=== PATIENT | female | born 1990 | race Caucasian/White ===

== ENCOUNTER 2022-10-23 20:33 | Outpatient (REF) | payer OTHER, SELFPAY ==
[2022-10-27 15:08] LABS: Age Gdln ACOG Testing Note (.); HPV Aptima Negative (Negative); IGP, Aptima HPV, rfx 16/18,45 Note (.)
== END 2022-10-23 20:34 | disposition home or self-care (01) ==
LOC: LAB 20:33
PROVIDERS: PCP Obstetrics & Gynecology; Visit Provider Obstetrics & Gynecology
DX: Z01.419 Encounter for gynecological examination (general) (routine) without abnormal findings (principal)
CPT/HCPCS: 87624; G0145

== ENCOUNTER 2022-12-29 12:34 | Outpatient (OUT) | payer OTHER, SELFPAY ==
--- NOTE | 2022-12-29 12:40 | MR_ITS ---
[address] [address] Patient Name: LITO RAMIREZ MRN: [facility]:[id number] date: 1990 Sex: F Assigned Patient Location: MRI Current Patient Location: Accession/Order Number: [id number] Exam Date: 12/29/2022 13:45 Report Date: 12/30/2022 08:51 At the request of: CHARLIE EASTMAN Procedure: MR head/brain wo/w con EXAM: MR head/brain wo/w con CLINICAL INDICATION: Asymmetric Sensorineural Hearing Loss H90.3 COMPARISON: None TECHNIQUE/PROTOCOL: Standard brain and internal auditory canal protocol pre and post contrast MRI protocol performed. CONTRAST: 20 mL of Dotarem. FINDINGS: IAC: Cranial Nerves VII and VII: Normal bilaterally. No mass or abnormal enhancement. Cochleae: Normal bilaterally. Semicircular Canals: Grossly normal bilaterally. Porus Acusticus: Normal bilaterally. Cerebellopontine Angle: Normal bilaterally. No mass or abnormal enhancement. Vestibular Aqueducts: Grossly normal bilaterally. BRAIN: No restricted diffusion, extra-axial fluid collection, hydrocephalus, midline shift, or other mass effect. Intracranial flow voids are maintained. Normal midline structures. No abnormal parenchymal, leptomeningeal, or dural enhancement. Normal marrow signal. No soft tissue abnormalities. Trace scattered paranasal sinus mucosal thickening. Mastoid air cells are well-aerated. MR/MR head/brain wo/w con IMPRESSION: 1. No mass or abnormal enhancement of either internal auditory canal or cerebellopontine angle. 2. No acute intracranial process or abnormal enhancement. Electronically authenticated by: ELINA VICTORIA Date: 12/30/2022 08:51
[2022-12-29 13:53] LABS: HCG Qualitative NEGATIVE (NEGATIVE)
== END 2022-12-29 12:35 | disposition home or self-care (01) ==
LOC: MRI 12:34
PROVIDERS: PCP Family Medicine; Visit Provider Otolaryngology
DX: H90.3 Sensorineural hearing loss, bilateral (principal)
CPT/HCPCS: 36415; 70553; 84702; 84703; A9575

== ENCOUNTER 2023-05-21 11:08 | Outpatient (OUT) | payer OTHER, SELFPAY ==
[2023-05-21 12:23] LABS: Partial Thromboplastin Time 26.6 sec (22.3-36.2); Prothrombin Time 9.8 sec (9.0-11.6)
[2023-05-21 12:33] LABS: INR <0.93
[2023-05-21 12:37] LABS: Basophils Absolute Auto 0.1 10^3/uL (0.0-0.1); Basophils Percent Auto 0.6 % (0.2-2.0); Eosinophils Absolute Auto 0.2 10^3/uL (0.0-0.7); Eosinophils Percent Auto 2.1 % (0.9-7.0); Hematocrit 43.5 % (36.0-48.0); Hemoglobin 13.8 g/dL (12.0-16.0); Immature Granulocytes Abs Auto 0.03 10^3/uL (0.00-0.03); Immature Granulocytes Pct Auto 0.4 % (0.0-0.5); Lymphocytes Absolute Auto 2.7 10^3/uL (1.2-3.8); Lymphocytes Percent Auto 33.7 % (20.5-60.0); Mean Corpuscular HGB Conc 31.7 g/dL (29.9-35.2); Mean Corpuscular Hemoglobin 27.9 pg (26.7-34.0); Mean Corpuscular Volume 88.1 fL (81.0-99.0); Mean Platelet Volume 10.1 fL (9.5-13.5); Monocytes Absolute Auto 0.5 10^3/uL (0.3-0.8); Monocytes Percent Auto 6.7 % (1.7-12.0); Neutrophils Absolute Auto 4.5 10^3/uL (1.4-6.5); Neutrophils Percent Auto 56.5 % (43.0-75.0); Platelet Count 233 10^3/uL (150-450); Red Blood Count 4.94 10^6/uL (4.20-5.40); Red Cell Distribution Width 13.6 % (11.0-15.0)
[2023-05-28 12:09] LABS: APTT 25.6 sec (.); Antithrombin Activity, Plasma 108 % (.); Factor VIII Activity 104 % (.); Homocysteine 13.1 umol/L (.); Protein S Antigen, Free 81 % (.)
== END 2023-05-21 11:09 | disposition home or self-care (01) ==
LOC: LAB 11:08
PROVIDERS: PCP Family Medicine; Visit Provider Family Medicine
DX: D68.9 Coagulation defect, unspecified (principal)
CPT/HCPCS: 36415; 81240; 83090; 85025; 85230; 85240; 85300; 85303; 85305; 85307; 85598; 85610; 85613; 85730; 86146; 86147

== ENCOUNTER 2023-06-20 13:27 | Emergency (ER) | payer OTHER, SELFPAY ==
[2023-06-20 13:31] VITALS: BP 107/81; PULSE 68; RESP 18; TEMP 36.9; O2SAT 96; BMI 40.6
--- NOTE | 2023-06-20 13:39 | ED.URI1 ---
HPI - URI/Sore Throat General Chief Complaint: Upper Respiratory Infection Stated Complaint: SOB Time Seen by Provider: 06/20/23 13:33 Source: patient Limitations: no limitations History of Present Illness HPI Narrative: 33-year-old female presents for a 6-day history of cough and congestion. Her son is being seen as well for the same symptoms. No vomiting or diarrhea. She has had a little bit of wheezing at home and has a history of asthma and she smokes cigarettes. No hemoptysis. Related Data Allergies Allergy/AdvReac Type Severity Reaction Status Date / Time cefaclor [From [facility]] Allergy Severe Anaphylaxis Verified 06/20/23 13:37 Penicillins Allergy Severe Anaphylaxis Verified 06/20/23 13:37 Review of Systems ROS Narrative A ten point review of systems is negative except as noted above. PFSH PFSH Social History Smoking status: Current every day smoker Exam Narrative Exam Narrative: Nurses note and vital signs reviewed and patient is not hypoxic. General: The patient appears well and in no apparent distress. Patient is resting comfortably on cart. Skin: Warm, dry, no pallor noted. There is no rash noted. Head: Normocephalic, atraumatic Eye: Normal conjunctiva, no drainage Ears, Nose, Mouth, and Throat: oral mucosa is moist. Nares patent. Cardiovascular: Regular Rate and Rhythm Respiratory: A few rhonchi present Back: non-tender GI: Soft and nontender Musculoskeletal: The patient has no evidence of calf tenderness, no pitting edema, symmetrical pulses noted bilaterally Neurological: A&O, normal speech Psychiatric: Cooperative Constitutional Vital Signs, click to edit/add: Last Vital Signs Temp 98.5 F 06/20/23 13:31 Pulse 68 06/20/23 13:31 Resp 18 06/20/23 13:31 BP 107/81 06/20/23 13:31 Pulse Ox 96 06/20/23 13:31 O2 Del Method Room Air 06/20/23 13:31 Course Vital Signs Vital signs: Vital Signs Temperature 98.5 F 06/20/23 13:31 Pulse Rate 68 06/20/23 13:31 Respiratory Rate 18 06/20/23 13:31 Blood Pressure 107/81 06/20/23 13:31 Pulse Oximetry 96 06/20/23 13:31 Oxygen Delivery Method Room Air 06/20/23 13:31 Temperature 98.5 F 06/20/23 13:31 Pulse Rate 68 06/20/23 13:31 Respiratory Rate 18 06/20/23 13:31 Blood Pressure 107/81 06/20/23 13:31 Pulse Oximetry 96 06/20/23 13:31 Oxygen Delivery Method Room Air 06/20/23 13:31 MDM - URI/Sore Throat MDM Narrative Medical decision making narrative: COVID and influenza test are negative for this patient. Her son however tested positive for influenza and she likely has it is well. Treatment diagnosis and follow-up were discussed with the patient. Lab Data Attestation: I reviewed the patient's lab results. Labs: Lab Results 06/20/23 Range/Units 13:39 Influenza Type A Ag Negative Influenza Type B Ag Negative SARS-CoV-2 Ag (CV2AG) Negative (NEGATIVE) Discharge Plan Discharge Chief Complaint: Upper Respiratory Infection Clinical Impression: Influenza-like illness Patient Disposition: Home, Self-Care Time of Disposition Decision: 14:46 Condition: Good Mode of Transportation: Private Vehicle Instructions: Influenza (ED) Stand Alone Forms: Portal Instructions Referrals: Enmanuel Medellin MD [Primary Care Provider] - 1 week
--- OUTSIDE RECORDS SUMMARY | 2023-06-20 14:00 | XMS_ITS | CCD ---
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 3016-3 ####[facility] LABCLIA [id number] [facility] [id number] [place] [address] [place] Emelina 11-09-2022 CNPN Telephone (NCCAP) AMANDA CORTEZ ([id number]) 1990 F Date Time Provider Department 11/09/22 Arslan GARCIA During your visit today, we recorded the following information about you: Obi Dunlap 11/09/2022 3:40 PM Signed Patient is called and scheduled. Arslan Garcia MD P [facility] Nurse [place]; Obi Genao 8 weeks with labs, orders placed, thank you Allergies As of Date: 11/09/2022 Noted Allergy Reaction CECLOR (CEFACLOR) 04/11/2022 4 - Hives 12 - Shortness of Breath PENICILLINS 04/11/2022 4 - Hives 12 - Shortness of Breath Date Reviewed: 05/04/2022 Reviewed by: Daisy Stoll - Fully Assessed Reason for Visit: Appointment Confirmation [[id number]] Prescriptions as of 11/09/2022 - levothyroxine (SYNTHROID) 175 mcg tablet Take 1 tablet by mouth daily before breakfast. - liothyronine (CYTOMEL) 25 mcg tablet TAKE ONE TABLET BY MOUTH TWICE A DAY FOR 30 DAYS - fluticasone (FLONASE) 50 mcg/actuation nasal spray - albuterol (PROVENTIL) 2.5 mg /3 mL (0.083 %) nebulizer solution INHALE CONTENTS OF 1 VIAL VIA NEBULIZER EVERY 4 HOURS NEEDED - ibuprofen (MOTRIN) 800 mg tablet Take 800 mg by mouth. - omeprazole (PRILOSEC) 40 mg capsule TAKE ONE CAPSULE BY MOUTH ONCE DAILY IN THE MORNING 30 TO 60 MINUTES PRIOR TO BREAKFAST - JENCYCLA 0.35 mg tablet Take 1 tablet by mouth once daily. - Multivitamin capsule Take 1 capsule by mouth once daily. - Digestive Enzymes tab Take by mouth. - OTC PRODUCT Supplement by [employer] for breast feeding Problem List As Of Date: 11/09/2022 (None) Encounter Status:Closed by OBI GENAO on 11/09/22 Normal [facility] T3 SerPl-mCncon 11-02-2022 T3 [Mass/Vol] 84 ng/dL Normal 79-165 [facility] Comment on above: Order Comment: Speci men Type: BLOOD SPECIMENOrdering Facility: [facility] Address: [address] [place] [address] Performed By: #### 3 026-2, 3016-3, 3053-6 ####[facility] LABCLIA [id number] [place] [id number] [facility] T4 SerPl-mCncon 11-02-2022 T4 [Mass/Vol] 8.3 ug/dL Normal 5.5-10.2 [facility] Comment on above: Order Comment: Speci men Type: BLOOD SPECIMENOrdering Facility: [facility] Address: [address] [place] [address] Performed By: #### 3 026-2, 3016-3, 6 ####[facility] LABIA [id number] [address] TSH SerPl-aCncon 11-02-2022 TSH Qn 23.200 m[IU]/L High 0.270-4.200 [facility] Comment on above: Order Comment: Speci kishor Type: BLOOD SPECIMENOrdering Facility: [facility] Address: [address] [place] [address] Result Comment: If t he patient is , TSH reference range varies by gestational period: First Trimester (weeks 9-12): 0.180-2.990 mIU/L Second Trimester: 0.110-3.980 mIU/L Third Trimester: 0.480-4.710 mIU/L Suman Graf et al. A Practical Approach for the Verifications and Determination of Site- and Trimester-Specific Reference Intervals for Thyroid Function tests in . Thyroid, 2019:29:3:412-420. Rajesh E, et al. 2017 Guidelines of the [place] Thyroid Association for the Diagnosis and Management of Thyroid Disease during and the . Thyroid, 2017:27:3:315-389. Performed By: #### 3 026-2, 3016-3, 305-6 ####[facility] LABIA [id number] [place] [id number] [facility] CNPMaru 09-26-2022 CNPN Telephone ([employer]) AMANDA CORTEZ ([id number]) 1990 F Date Time Provider Department 09/26/22 Arslan GARCIA During your visit today, we recorded the following information about you: Arslan Garcia MD 09/26/2022 5:34 PM Signed Called patient to follow-up on recent thyroid function test. TSH elevated. Patient states she may miss as many as 1 dose a week. However I do feel she needs to have her dose increased. [facility] Recommend canceling her October 12 appointment and seeing her in approximately 6 weeks with labs which I put the orders in for Irais Turpin LPN 09/27/2022 8:13 AM Signed Yfn: Please reschedule follow up and lab as indicated below. Thanks MIKEY Casey 09/27/2022 9:28 AM Signed Patient has been scheduled AND notified of appointment. Yfn Nelson Allergies As of Date: 09/26/2022 Noted Allergy Reaction CECLOR (CEFACLOR) 04/11/2022 4 - Hives 12 - Shortness of Breath PENICILLINS 04/11/2022 4 - Hives 12 - Shortness of Breath Date Reviewed: 05/04/2022 Reviewed by: Daisy Stoll - Fully Assessed Reason for Visit: Orders [681] Cmt: a Primary Visit Diagnosis:Thyroid cancer (HCC) [C73] Order(s):TSH BLD [SQTSH] Order #: [id number] FUTURE T3 BLD [SQT3] Order #: [id number] FUTURE T4/THYROXINE BLOOD [SQT4] Order #: [id number] FUTURE levothyroxine (SYNTHROID) 150 mcg tabletTake 1 tablet by mouth once daily.Disp: 30 tabletRfl: 4 Prescriptions as of 09/27/2022 - levothyroxine (SYNTHROID) 150 mcg tablet Take 1 tablet by mouth once daily. - liothyronine (CYTOMEL) 25 mcg tablet TAKE ONE TABLET BY MOUTH TWICE A DAY FOR 30 DAYS - fluticasone (FLONASE) 50 mcg/actuation nasal spray - albuterol (PROVENTIL) 2.5 mg /3 mL (0.083 %) nebulizer solution INHALE CONTENTS OF 1 VIAL VIA NEBULIZER EVERY 4 HOURS NEEDED - ibuprofen (MOTRIN) 800 mg tablet Take 800 mg by mouth. - omeprazole (PRILOSEC) 40 mg capsule TAKE ONE CAPSULE BY MOUTH ONCE DAILY IN THE MORNING 30 TO 60 MINUTES PRIOR TO BREAKFAST - JENCYCLA 0.35 mg tablet Take 1 tablet by mouth once daily. - Multivitamin capsule Take 1 capsule by mouth once daily. - Digestive Enzymes tab Take by mouth. - OTC PRODUCT Supplement by [employer] for breast feeding Problem List As Of Date: 09/26/2022 (None) Prescriptions ordered this encounter Disp Refills Start End LEVOTHYROXINE 150 MCG TABLET 30 t* 4 09/26/2022 Route: ORAL Sig: Take 1 tablet by mouth once daily. Medications Discontinued During This Encounter Prescriptions - levothyroxine (SYNTHROID) 125 mcg tablet (Discontinued) Take 1 tablet by mouth once daily. Encounter Status:Closed by Arslan GARCIA on 09/26/22 Normal [facility] T4 SerPl-mCncon 09-14-2022 T4 [Mass/Vol] 4.5 ug/dL Low 5.5-10.2 [facility] Comment on above: Order Comment: Chel iverson Type: BLOOD SPECIMENOrdering Facility: [facility] Address: [address] [place], [place] [address] Performed By: #### 3 026-2, 3016-3 ####[facility] LABCLIA [id number] [address] STATES OF [facility] TSH SerPl-aCncon 09-14-2022 TSH Qn 89.200 m[IU]/L High 0.270-4.200 [facility] Comment on above: Order Comment: Chel men Type: BLOOD SPECIMENOrdering Facility: [facility] Address: [address] [place] [address] Result Comment: If t he patient is , TSH reference range varies by gestational period: First Trimester (weeks 9-12): 0.180-2.990 mIU/L Second Trimester: 0.110-3.980 mIU/L Third Trimester: 0.480-4.710 mIU/L Suman Graf et al. A Practical Approach for the Verifications and Determination of Site- and Trimester-Specific Reference Intervals for Thyroid Function tests in . Thyroid, 2019:29:3:412-420. Rajesh Holman, et al. 2017 Guidelines of the [place] Thyroid Association for the Diagnosis and Management of Thyroid Disease during and the . Thyroid, 2017:27:3:315-389. Performed By: #### 3 026-2, 3016-3 ####[facility] LABCLIA [id number] [place] [address] [place] PREG QUANT HCGon 08-17-2022 HCG QUANT 1 mIU/mL Normal [facility] Comment on above: Performed By: #### P REGQNT #### [facility] [address] [place] [address] [address] Prashant Kang HCG RANGE SEE BELOW Normal [facility] Comment on above: Result Comment: 5-50 0.2-1 WEEK 50-500 1-2 WEEKS 100-5,000 2-3 WEEKS 500-10,000 3-4 WEEKS 1,000-50,000 4-5 WEEKS 10,000-100,000 5-6 WEEKS 15,000-200,000 6-8 WEEKS 10,000-100,000 2-3 MONTHS Performed By: #### P REGQNT #### [facility] [address] [place] [address] [address] Prashant Tarango 07-17-2022 [facility] Telephone (RADTSA) AMANDA CORTEZ ([id number]) 1990 F Date Time Provider Department 07/17/22 Arslan GARCIA During your visit today, we recorded the following information about you: Danna PittsKAREN 07/17/2022 11:18 AM Signed Pt called in requesting to be switched to a phone visit tomorrow. Her kids are on spring break and a couple of them are sick. Labs have been done and resulted. PSS- please change to phone visit for tomorrow. KAREN Peters 07/17/2022 11:43 AM Signed Appointment has been changed to phone appt. Yfn Nelson Allergies As of Date: 07/17/2022 Noted Allergy Reaction CECLOR (CEFACLOR) 04/11/2022 4 - Hives 12 - Shortness of Breath PENICILLINS 04/11/2022 4 - Hives 12 - Shortness of Breath Date Reviewed: 05/04/2022 Reviewed by: Daisy Stoll - Fully Assessed Reason for Visit: Phone Visit [Other] Prescriptions as of 08/01/2022 - levothyroxine (SYNTHROID) 125 mcg tablet Take 1 tablet by mouth once daily. - liothyronine (CYTOMEL) 25 mcg tablet TAKE ONE TABLET BY MOUTH TWICE A DAY FOR 30 DAYS - fluticasone (FLONASE) 50 mcg/actuation nasal spray - albuterol (PROVENTIL) 2.5 mg /3 mL (0.083 %) nebulizer solution INHALE CONTENTS OF 1 VIAL VIA NEBULIZER EVERY 4 HOURS NEEDED - ibuprofen (MOTRIN) 800 mg tablet Take 800 mg by mouth. - omeprazole (PRILOSEC) 40 mg capsule TAKE ONE CAPSULE BY MOUTH ONCE DAILY IN THE MORNING 30 TO 60 MINUTES PRIOR TO BREAKFAST - JENCYCLA 0.35 mg tablet Take 1 tablet by mouth once daily. - Multivitamin capsule Take 1 capsule by mouth once daily. - Digestive Enzymes tab Take by mouth. - OTC PRODUCT Supplement by [employer] for breast feeding Problem List As Of Date: 07/17/2022 (None) Encounter Status:Closed by DANNA PITTS on 08/01/22 Normal [facility] PREG QUANT HCGon 07-04-2022 HCG QUANT <1 Normal [facility] Comment on above: Performed By: #### P REGQNT #### [facility] [address] [place] [address] Dr. Prashant Kang HCG RANGE SEE BELOW Normal [facility] Comment on above: Result Comment: 5-50 0.2-1 WEEK 50-500 1-2 WEEKS 100-5,000 2-3 WEEKS 500-10,000 3-4 WEEKS 1,000-50,000 4-5 WEEKS 10,000-100,000 5-6 WEEKS 15,000-200,000 6-8 WEEKS 10,000-100,000 2-3 MONTHS Performed By: #### P REGQNT #### [facility] [address] [place] [address] Dr. Prashant Kang T4 SerPl-mCncon 07-03-2022 T4 [Mass/Vol] 7.0 ug/dL Normal 5.5-10.2 [facility] Comment on above: Order Comment: Chel iverson Type: BLOOD SPECIMENOrdering Facility: [facility] Address: [address] [place] [address] Performed By: #### 3 026-2, 3016-3 ####[facility] LABCLIA [id number] [address] THYROGLOBULIN BY M[facility] SPECTR [facility] 07-03-2022 THYROGLOBULIN, LC-MS/MS 1.6 ng/mL Normal 1.3-31.8 [facility] Comment on above: Order Comment: Chel iverson Type: BLOOD SPECIMENOrdering Facility: [facility] Address: [address] [place] [address] Result Comment: Results obtained with different test methods or kits cannot be used interchangeably. Thyroglobulin results, regardless of concentration, should not be interpreted as absolute evidence for the presence or absence of papillary or follicular thyroid cancer. Thyroglobulin testing is not recommended for use as a screening procedure to detect the presence of thyroid cancer in the general population. INTERPRETIVE INFORMATION: Thyroglobulin by LC-MS/MS, Serum/Plasma Lower limit of detection for Thyroglobulin by LC-MS/MS is 0.5 ng/mL. This test was developed and its performance characteristics determined by [facility]. It has not been cleared or approved by the US Food and Drug Administration. This test was performed in a CLIA certified laboratory and is intended for clinical purposes. Performed By: [facility] [address] [place] [address] Injection Machine Operator: Prem Willis MD, PhD Performed By: #### [facility] ####[facility] LABORATORIESCLIA [id number] [place] [address] TSH SerPl-aCncon 07-03-2022 TSH Qn 77.100 m[IU]/L High 0.270-4.200 [facility] Comment on above: Order Comment: Speci men Type: BLOOD SPECIMENOrdering Facility: [facility] Address: [address] [place] [address] Result Comment: If t he patient is , TSH reference range varies by gestational period: First Trimester (weeks 9-12): 0.180-2.990 mIU/L Second Trimester: 0.110-3.980 mIU/L Third Trimester: 0.480-4.710 mIU/L Suman Graf et al. A Practical Approach for the Verifications and Determination of Site- and Trimester-Specific Reference Intervals for Thyroid Function tests in . Thyroid, 2019:29:3:412-420. Rajesh Holman, et al. 2017 Guidelines of the [place] Thyroid Association for the Diagnosis and Management of Thyroid Disease during and the . Thyroid, 2017:27:3:315-389. Performed By: #### 3 026-2, 3016-3 ####[facility] LABCLIA [id number] [facility] [id number] [place] [address] [place] PREG QUANT HCGon 05-16-2022 HCG QUANT <1 Normal [facility] Comment on above: Performed By: #### P TT, PT #### [facility] [address] [place] [address] Dr. Prashant Kang HCG RANGE SEE BELOW Normal [facility] Comment on above: Result Comment: 5-50 0.2-1 WEEK 50-500 1-2 WEEKS 100-5,000 2-3 WEEKS 500-10,000 3-4 WEEKS 1,000-50,000 4-5 WEEKS 10,000-100,000 5-6 WEEKS 15,000-200,000 6-8 WEEKS 10,000-100,000 2-3 MONTHS Performed By: #### P TT, PT #### [facility] [address] [place] [address] Dr. Prashant Kang PREG QUANT HCGon 05-08-2022 HCG QUANT <1 Normal [facility] Comment on above: Performed By: #### P REGQNT #### [facility] [address] [place] [address] Dr. Prashant Kang HCG RANGE SEE BELOW Normal [facility] Comment on above: Result Comment: 5-50 0.2-1 WEEK 50-500 1-2 WEEKS 100-5,000 2-3 WEEKS 500-10,000 3-4 WEEKS 1,000-50,000 4-5 WEEKS 10,000-100,000 5-6 WEEKS 15,000-200,000 6-8 WEEKS 10,000-100,000 2-3 MONTHS Performed By: #### P REGQNT #### [facility] [address] [place] [address] Dr. Prashant Kang CNOVon 05-04-2022 CNOV Office Visit (RADTSA ) AMANDA CORTEZ ([id number]) 1990 F Date Time Provider Department 05/04/22 9:30 AM Arslan GARCIA During your visit today, we recorded the following information about you: Temperature Pulse Respiration Blood pressure 97.2 degrees 67/minute 16/minute 113/73 Weight 88.8 kg Arslan Garcia MD 05/04/2022 9:58 AM Signed Radiation Oncology - FollowupNote PATIENT NAME: Amanda Cortez PATIENT : 1990 DIAGNOSIS: Thyroid cancer, classic papillary thyroid carcinoma, status post total thyroidectomy and right neck exploration on 03/07/2022, stage I [id number]. HPI: Patient returns after further work-up and for further discussion about potential I-131 postoperative treatment. LABORATORY: Latest Reference Range AND Units 12/13/22 10:41 Thyroglobulin Ab <14.4 IU/mL 20.6 (H) Thyroglobulin, LC-MS/MS 1.3 - 31.8 ng/mL 1.6 (H): Data is abnormally high FOCUSED ROS: Dysphagia: No Mucositis: No Voice Changes:No Fatigue: No Nausea: No Vomitting: No Pain: No Taste: No Weight loss: No ALLERGIES Allergen Reactions Ceclor [Cefaclor] Hives, Shortness of Breath Penicillins Hives, Shortness of Breath MEDICATIONS: liothyronine (CYTOMEL) 25 mcg tablet TAKE ONE TABLET BY MOUTH TWICE A DAY FOR 30 DAYS fluticasone (FLONASE) 50 mcg/actuation nasal spray albuterol (PROVENTIL) 2.5 mg /3 mL (0.083 %) nebulizer solution INHALE CONTENTS OF 1 VIAL VIA NEBULIZER EVERY 4 HOURS NEEDED ibuprofen (MOTRIN) 800 mg tablet Take 800 mg by mouth. omeprazole (PRILOSEC) 40 mg capsule TAKE ONE CAPSULE BY MOUTH ONCE DAILY IN THE MORNING 30 TO 60 MINUTES PRIOR TO BREAKFAST JENCYCLA 0.35 mg tablet Take 1 tablet by mouth once daily. Multivitamin capsule Take 1 capsule by mouth once daily. Digestive Enzymes tab Take by mouth. OTC PRODUCT Supplement by [employer] for breast feeding levothyroxine (SYNTHROID) 112 mcg tablet Take 1 tablet by mouth once daily. PAST MEDICAL HISTORY Diagnosis Date Asthma GERD (gastroesophageal reflux disease) Prior radiation therapy, collagen vascular disease, or inflammatory bowel disease: No status: Patient states there is no possibility she is at this time. Educated on risks of during treatment. PAST SURGICAL HISTORY Procedure Laterality Date CHOLEYCYSTOGRAM GALL BLADDER PAST SURGICAL HISTORY OF cyst removed form ovaries x 2 THYROIDECTOMY FAMILY HISTORY Problem Relation Age of Onset Lung Cancer Maternal great-grandmother Social History Tobacco Use Smoking status: Every Day Packs/day: 1.00 Years: 15.00 Pack years: 15.00 Types: Cigarettes Smokeless tobacco: Never Substance Use Topics Alcohol use: Yes Comment: socially Drug use: Not Currently COMPLETE REVIEW OF SYSTEMS: GENERAL: feeling well without fatigue, no recent change in weight HEENT: denies DIAZ, change in hearing or vision, no other ENT complaints NECK: Mild irritation along incision no swelling. RESPIRATORY: no cough, no wheezing or shortness of breath CARDIOVASCULAR: no chest pain, no palpitations NEURO: no numbness or paresthesias and no weakness of the extremities As noted in HPI PHYSICAL EXAM: VS: BP 113/73 Pulse 67 Temp 36.2 ?C (97.2 ?F) (Temporal) Resp 16 Wt 88.8 kg (195 lb 12.8 oz) SpO2 100% Unknown BMI 35.24 kg/m? KPS: 100 General Appearance: Alert and oriented. No acute distress. Neck: Normal ROM. Well-healing low neck incision. Small area of induration along incision no obvious infection, no palpable cervical or supraclavicular adenopathy. Hematologic: No signs of active bleeding. RADIOLOGY/LABORATORY DATA: see HPI ASSESSMENT/PLAN: Thyroid cancer, classic papillary thyroid carcinoma, status post total thyroidectomy and right neck exploration on 03/07/2022, stage [id number]. Patient does have significant thyroglobulin antibody however thyroglobulin by interference assay less than 2. However given detectable thyroglobulin and antibody I do feel that I-131 treatment is indicated. Patient still wants to continue breast-feeding. Given we have to wait 3 to 6 months after stopping breast-feeding we will plan to start her on Synthroid. We will plan to recheck her labs in 2 to 3 months and discuss future planning after that. Given relatively low thyroglobulin do feel it is safe to wait I-131 treatment. Signed by: Arslan Garcia MD cc: To use this Smartlink, specify the provider ID whose address you want to display, e.g., .PROVADDR[1 (where 1 is the provider ID). No referring provider defined for this encounter. Allergies As of Date: 05/04/2022 Noted Allergy Reaction CECLOR (CEFACLOR) 04/11/2022 4 - Hives 12 - Shortness of Breath PENICILLINS 04/11/2022 4 - Hives 12 - Shortness of Breath Date Reviewed: 05/04/2022 Reviewed by: Daisy Stoll - Tigre Sebastian (more content not included)... Normal [facility] Emelina 04-25-2022 [facility]N [facility] AMANDA CORTEZ ([id number]) 1990 F Date Time Provider Department 04/25/22 Arslan GARCIA During your visit today, we recorded the following information about you: Yfn Nelson 04/25/2022 9:40 AM Signed Called patient to reschedule, LMOV. MD Jessica Jenikns [facility] Nurse [place]; Yfn Nelson Unable to reach please reschedule Yfn Nelson 04/25/2022 10:50 AM Signed Patient had been rescheduled. Yfn Nelson Allergies As of Date: 04/25/2022 Noted Allergy Reaction CECLOR (CEFACLOR) 04/11/2022 4 - Hives 12 - Shortness of Breath PENICILLINS 04/11/2022 4 - Hives 12 - Shortness of Breath Date Reviewed: Never Reviewed Reason for Visit: Missed Appointment [1304] Prescriptions as of 05/16/2022 - levothyroxine (SYNTHROID) 112 mcg tablet Take 1 tablet by mouth once daily. - liothyronine (CYTOMEL) 25 mcg tablet TAKE ONE TABLET BY MOUTH TWICE A DAY FOR 30 DAYS - fluticasone (FLONASE) 50 mcg/actuation nasal spray - albuterol (PROVENTIL) 2.5 mg /3 mL (0.083 %) nebulizer solution INHALE CONTENTS OF 1 VIAL VIA NEBULIZER EVERY 4 HOURS NEEDED - ibuprofen (MOTRIN) 800 mg tablet Take 800 mg by mouth. - omeprazole (PRILOSEC) 40 mg capsule TAKE ONE CAPSULE BY MOUTH ONCE DAILY IN THE MORNING 30 TO 60 MINUTES PRIOR TO BREAKFAST - JENCYCLA 0.35 mg tablet Take 1 tablet by mouth once daily. - Multivitamin capsule Take 1 capsule by mouth once daily. - Digestive Enzymes tab Take by mouth. - OTC PRODUCT Supplement by [employer] for breast feeding Problem List As Of Date: 04/25/2022 (None) Encounter Status:Closed by YFN NELSON on 05/16/22 [facility] CNOVon 04-11-2022 CNOV Office Visit (RADTSA ) CORTEZAMANDA COYNE ([id number]) 1990 F Date Time Provider Department 04/11/22 10:45 AM LAB/PORT RADT KAROL JUDGE During your visit today, we recorded the following information about you: Danna Pitts RN 04/11/2022 10:52 AM Signed Amanda Cortez presents in office today for: Lab Draw during Office Visit . Ordering Provider: Felipe Garcia M.D. Test (s) ordered: TG Method for obtaining blood: Phlebotomy was performed, accessing right antecubital vein. Needle removed intact. Dressing secured. Patient denies discomfort, dizziness, light-headedness or weakness and left the department without assist. Danna Pitts RN Allergies As of Date: 04/11/2022 Noted Allergy Reaction CECLOR (CEFACLOR) 04/11/2022 4 - Hives 12 - Shortness of Breath PENICILLINS 04/11/2022 4 - Hives 12 - Shortness of Breath Date Reviewed: Never Reviewed Reason for Visit: Phlebotomy [1172] Primary Visit Diagnosis:Thyroid cancer (HCC) [C73] Prescriptions as of 04/11/2022 - liothyronine (CYTOMEL) 25 mcg tablet TAKE ONE TABLET BY MOUTH TWICE A DAY FOR 30 DAYS - fluticasone (FLONASE) 50 mcg/actuation nasal spray - albuterol (PROVENTIL) 2.5 mg /3 mL (0.083 %) nebulizer solution INHALE CONTENTS OF 1 VIAL VIA NEBULIZER EVERY 4 HOURS NEEDED - ibuprofen (MOTRIN) 800 mg tablet Take 800 mg by mouth. - omeprazole (PRILOSEC) 40 mg capsule TAKE ONE CAPSULE BY MOUTH ONCE DAILY IN THE MORNING 30 TO 60 MINUTES PRIOR TO BREAKFAST - JENCYCLA 0.35 mg tablet Take 1 tablet by mouth once daily. - Multivitamin capsule Take 1 capsule by mouth once daily. - Digestive Enzymes tab Take by mouth. - OTC PRODUCT Supplement by [employer] for breast feeding Problem List As Of Date: 04/11/2022 (None) Visit Notes: >> Danna Pitts RN [facility] Apr 11, 2022 10:50 AM Status: Signed Amanda Cortez presents in office today for: Lab Draw during Office Visit . Ordering Provider: Felipe Garcia M.D. Test (s) ordered: TG Method for obtaining blood: Phlebotomy was performed, accessing right antecubital vein. Needle removed intact. Dressing secured. Patient denies discomfort, dizziness, light-headedness or weakness and left the department without assist. Danna Pitts RN Encounter Status:Closed by DANNA PITTS on 04/11/22 [facility] Office Visit (RADTSA ) AMANDA CORTEZ ([id number]) 1990 F Date Time Provider Department 04/11/22 10:00 AM Arslan GARCIA During your visit today, we recorded the following information about you: Temperature Pulse Respiration Blood pressure 97.9 degrees 76/minute 18/minute 109/72 Weight Height 88 kg 1.588 m Arslan Garcia MD 04/18/2022 2:20 PM Signed Radiation Oncology - New Patient/Consult Note PATIENT NAME: Amanda Cortez PATIENT : 1990 REQUESTING PROVIDER: Dr. Eastman Primary Site: Thyroid Date of Diagnosis: March 07, 2022 Clinical Stage: T1 N0 M0 Pathologic Stage: T1 b N0 M0 DIAGNOSIS: 32 year old female with thyroid cancer, classic papillary thyroid carcinoma, status post total thyroidectomy and right neck exploration on 03/07/2022, stage I [id number]. HPI: 32 year old female who presents with above diagnosis, for an opinion regarding the role of radiation therapy in the management of the patient's disease. Final recommendations will be communicated back to the requesting physician by way of the shared medical record, or letter to requesting physician via US mail. Patient presented with dysphagia for approximately 1 to [address] of the neck with contrast on 01/20/2022 without significant findings. Thyroid ultrasound on 01/19/2022 demonstrating a 19 x 14 x 7 mm solid hypoechoic nodule within the right aspect of the thyroid isthmus. She underwent FNA, ultrasound-guided on 02/03/2022 showing findings suspicious for papillary thyroid carcinoma. Patient underwent total thyroidectomy and right neck exploration on 03/07/2022 in addition excision of right palate lesion. Intraoperative findings including a firm 2 cm mass on the right aspect of the thyroid isthmus. An adjacent anterior compartment lymph node identified and removed. An additional right lateral lymph node also removed. 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 Right thyroid and isthmus: 1.5 cm classic papillary thyroid carcinoma confined to the thyroid, no vascular invasion, resection margins negative Left thyroid: Small focus papillary thyroid carcinoma classic, 4 mm confined to the thyroid no lymphovascular invasion margins negative. Additional right parathyroid lymph node excision showing benign thyroid tissue without malignancy, additional anterior compartment lymph node without metastatic involvement. Patient is otherwise in good health. She is actively breast-feeding her child, approximately 9-month old. She has 4 children, states that her and her cannot plan to have any other children. She does states she wants to breast-feed until her youngest is 2 years if possible. FOCUSED ROS: Dysphagia: No Mucositis: No Voice Changes:No Fatigue: No Nausea: No Vomitting: No Pain: No Taste: No Weight loss: No ALLERGIES Allergen Reactions Ceclor [Cefaclor] Hives, Shortness of Breath Penicillins Hives, Shortness of Breath MEDICATIONS: liothyronine (CYTOMEL) 25 mcg tablet TAKE ONE TABLET BY MOUTH TWICE A DAY FOR 30 DAYS fluticasone (FLONASE) 50 mcg/actuation nasal spray albuterol (PROVENTIL) 2.5 mg /3 mL (0.083 %) nebulizer solution INHALE CONTENTS OF 1 VIAL VIA NEBULIZER EVERY 4 HOURS NEEDED ibuprofen (MOTRIN) 800 mg tablet Take 800 mg by mouth. omeprazole (PRILOSEC) 40 mg capsule TAKE ONE CAPSULE BY MOUTH ONCE DAILY IN THE MORNING 30 TO 60 MINUTES PRIOR TO BREAKFAST JENCYCLA 0.35 mg tablet Take 1 tablet by mouth once daily. Multivitamin capsule Take 1 capsule by mouth once daily. Digestive Enzymes tab Take by mouth. OTC PRODUCT Supplement by [employer] for breast feeding PAST MEDICAL HISTORY Diagnosis Date Asthma GERD (gastroesophageal reflux disease) Prior radiation therapy, collagen vascular disease, or inflammatory bowel disease: No status: Patient states there is no possibility she is at this time. Educated on risks of during treatment. PAST SURGICAL HISTORY Procedure Laterality Date CHOLEYCYSTOGRAM GALL BLADDER PAST SURGICAL HISTORY OF cyst removed form ovaries x 2 THYROIDECTOMY FAMILY HISTORY Problem Relation Age of Onset Lung Cancer Maternal great-grandmother Social History Tobacco Use Smoking status: Every Day Packs/day: 1.00 Years: 15.00 Pack years: 15.00 Types: Cigarettes Smokeless tobacco: Never Substance Use Topics Alcohol use: Yes Comment: socially Drug use: Not Currently COMPLETE REVIEW OF SYSTEMS: GENERAL: feeling well without fatigue, no recent change in weight HEENT: denies DIAZ, change in hearing or vision, no other ENT complaints NECK: denies swelling or pain in neck RESPIRATORY: no cough, no wheezing or shortness of breath CARDIOVASCULAR: no chest pain, no palpitations NEURO: no (more content not included)... Normal [facility] THYROGLOBULIN ABon Thyroglobulin Ab Qn 20.6 [IU]/mL High <14.4 [facility] Comment on above: Order Comment: Chel iverson Type: BLOOD SPECIMENOrdering Facility: [facility] Address: [address] [place] [address] Performed By: #### T BELLE ####[facility] LABCLIA [id number] [address] [place] THYROGLOBULIN BY MASS SPECTR OMETRY 04-11-2022 THYROGLOBULIN, LC-MS/MS 1.6 ng/mL Normal 1.3-31.8 [facility] Comment on above: Order Comment: Chel iverson Type: BLOOD SPECIMENOrdering Facility: [facility] Address: [address] [place] [address] Result Comment: Results obtained with different test methods or kits cannot be used interchangeably. Thyroglobulin results, regardless of concentration, should not be interpreted as absolute evidence for the presence or absence of papillary or follicular thyroid cancer. Thyroglobulin testing is not recommended for use as a screening procedure to detect the presence of thyroid cancer in the general population. INTERPRETIVE INFORMATION: Thyroglobulin by LC-MS/MS, Serum/Plasma Lower limit of detection for Thyroglobulin by LC-MS/MS is 0.5 ng/mL. This test was developed and its performance characteristics determined by [facility]. It has not been cleared or approved by the [place] Food and Drug Administration. This test was performed in a CLIA certified laboratory and is intended for clinical purposes. Performed By: [facility] [address] [place] [address] Injection Machine Operator: Prem Willis MD, PhD Performed By: #### [facility] ####[facility] [id number] [place] [address] CALCIUMon 03-08-2022 Calcium [Mass/Vol] 8.6 mg/dL Normal 8.5-10.1 [facility] Comment on above: Performed By: #### C A #### [facility] [address] [place] [address] Dr. Prashant Kang CALCIUMon 03-07-2022 Calcium [Mass/Vol] 8.4 mg/dL Critically low 8.5-10.1 [facility] Comment on above: Performed By: #### C A #### [facility] [address] [place] [address] Dr. Prashant Kang PREG HCG QUALon 03-07-2022 , QUAL Negative Normal NEGATIVE [facility] Comment on above: Performed By: #### P REG #### [facility] [address] [place] [address] Dr. Prashant Kang Covid-19 PCR (CVDTBH)on SARS-CoV-2 (COVID-19) RNA DENEEN+probe Ql (Unsp spec) Not detected Normal NOT DETECTED [facility] Comment on above: Result Comment: This test is not yet approved or cleared by the [place] FDA. When there are no FDA-approved or cleared tests available, and other criteria are met, FDA can make tests available under an emergency access mechanism called an Emergency Use Authorization (EUA). The EUA for this test is supported by the [place] of Health and Human Service's (HHS's) declaration that circumstances exist to justify the emergency use of in vitro diagnostics for the detection and/or diagnosis of the virus that causes COVID-19. This EUA will remain in effect (meaning this test can be used) for the duration of the COVID-19 declaration justifying emergency of IVDs, unless it is terminated or revoked by FDA (after which the test may no longer be used). When diagnostic testing is negative, the possibility of a false negative should be considered in the context of a patient's recent exposures and the presence of clinical signs and symptoms consistent with SARS-CoV-2. Performed By: #### C VDTB #### [facility] [address] [place] [address] Dr. Prashant Kang CALCIUMon 02-24-2022 Calcium [Mass/Vol] 8.8 mg/dL Normal 8.5-10.1 [facility] Comment on above: Performed By: #### P TT, PT #### [facility] [address] [place] [address] Dr. Prashant Kang CBC AUTO DIFFon 02-24-2022 BASO # 0.0 103/ul Normal 0.0-0.1 [facility] Comment on above: Performed By: #### P TT, PT #### [facility] [address] [place] [address] Dr. Prashant Kang Basophils/100 WBC (Bld) 0.3 % Normal 0.2-2.0 [facility] Comment on above: Performed By: #### P TT, PT #### [facility] [address] [place] [address] Dr. Prashant Kang EO # 0.1 103/ul Normal 0.0-0.7 [facility] Comment on above: Performed By: #### P TT, PT #### [facility] [address] [place] [address] Dr. Prashant Kang Eosinophils/100 WBC (Bld) 1.5 % Normal 0.9-7.0 [facility] Comment on above: Performed By: #### P TT, PT #### [facility] [address] [place] [address] Dr. Prashant Kang Erythrocyte distribution width (RBC) [Ratio] 13.8 % Normal 11.0-15.0 [facility] Comment on above: Performed By: #### P TT, PT #### [facility] [address] [place] [address] Dr. Prashant Kang Hematocrit (Bld) [Volume fraction] 45.5 % Normal 36.0-48.0 [facility] Comment on above: Performed By: #### P TT, PT #### [facility] [address] [place] [address] Dr. Prashant Kang Hemoglobin (Bld) [Mass/Vol] 14.6 g/dL Normal 12.0-16.0 [facility] Comment on above: Performed By: #### P TT, PT #### [facility] [address] [place] [address] Dr. Prashant Kang IG # 0.02 10e3/ul Normal 0.00-0.03 [facility] Comment on above: Performed By: #### P TT, PT #### [facility] [address] [place] [address] Dr. Prashant Kang IG % 0.3 % Normal 0.0-0.5 [facility] Comment on above: Performed By: #### P TT, PT #### [facility] [address] [place] [address] Dr. Prashant Kang LYMPH # 1.6 103/ul Normal 1.2-3.8 [facility] Comment on above: Performed By: #### P TT, PT #### [facility] [address] [place] [address] Dr. Prashant Kang Lymphocytes/100 WBC (Bld) 23.5 % Normal 20.5-60.0 [facility] Comment on above: Performed By: #### P TT, PT #### [facility] [address] [place] [address] Dr. Prashant Kang MANUAL DIFF REQ NO Normal [facility] Comment on above: Performed By: #### P TT, PT #### [facility] [address] [place] [address] Dr. Prashant Kang MCH (RBC) [Entitic mass] 26.5 pg Critically low 26.7-34.0 [facility] Comment on above: Performed By: #### P TT, PT #### [facility] [address] [place] [address] Dr. Prashant Kang MCHC (RBC) [Mass/Vol] 32.1 g/dL Normal 29.9-35.2 [facility] Comment on above: Performed By: #### P TT, PT #### [facility] [address] [place] [address] Dr. Prashant Kang MCV (RBC) [Entitic vol] 82.7 fL Normal 81.0-99.0 [facility] Comment on above: Performed By: #### P TT, PT #### [facility] [address] [place] [address] Dr. Prashant Kang MONO # 0.5 103/ul Normal 0.3-0.8 [facility] Comment on above: Performed By: #### P TT, PT #### [facility] [address] [place] [address] Dr. Prashant Kang Monocytes/100 WBC (Bld) 7.5 % Normal 1.7-12.0 [facility] Comment on above: Performed By: #### P TT, PT #### [facility] [address] [place] [address] Dr. Prashant Kang NEUT # 4.6 103/ul Normal 1.4-6.5 [facility] Comment on above: Performed By: #### P TT, PT #### [facility] [address] [place] [address] Dr. Prashant Kang Neutrophils/100 WBC (Bld) 66.9 % Normal 43.0-75.0 [facility] Comment on above: Performed By: #### P TT, PT #### [facility] [address] [place] [address] Dr. Prashant Kang Platelet mean volume (Bld) [Entitic vol] 9.9 fL Normal 9.5-13.5 [facility] Comment on above: Performed By: #### P TT, PT #### [facility] [address] [place] [address] Dr. Prashant Kang PLT 239 103/ul Normal 150-450 [facility] Comment on above: Performed By: #### P TT, PT #### [facility] [address] [place] [address] [address] Prashant Kang RBC 5.50 106/ul Critically high 4.20-5.40 [facility] Comment on above: Performed By: #### P TT, PT #### [facility] [address] [place] [address] Dr. Prashant Kang WBC 6.8 103/ul Normal 4.0-11.0 [facility] Comment on above: Performed By: #### P TT, PT #### [facility] [address] [place] [address] Dr. Prashant Kang MAGNESIUMon 02-24-2022 Magnesium [Mass/Vol] 2.0 mg/dL Normal 1.8-2.4 [facility] Comment on above: Performed By: #### P TT, PT #### [facility] [address] [place] [address] Dr. Prashant Kang PHOSPHORUSon 02-24-2022 Phosphate [Mass/Vol] 3.3 mg/dL Normal 2.6-4.7 [facility] Comment on above: Performed By: #### P TT, PT #### [facility] [address] [place] [address] Dr. Prashant Kang PROTIMEon 02-24-2022 INR Coag (PPP) [Relative time] 1.01 {INR} Normal [facility] Comment on above: Performed By: #### P TT, PT #### [facility] [address] [place] [address] Dr. Prashant Kang INR GUIDELINES SEE BELOW Normal [facility] Comment on above: Result Comment: SALIMA RED INR: 2.0 - 3.0 CONDITIONS NOT LISTED BELOW 2.5 - 3.5 FOR PROSTHETIC HEART VALVE REPLACEMENT 2.5 - 3.5 RECURRENT THROMBOSIS Performed By: #### P TT, PT #### [facility] [address] [place], [place] [address] Dr. Prashant Kang PT Coag (PPP) [Time] 10.9 s Normal 9.0-11.6 [facility] Comment on above: Performed By: #### P TT, PT #### [facility] [address] [place], [place] [address] Dr. Prashant Kang PTTon 02-24-2022 aPTT Coag (Bld) [Time] 28.9 s Normal 22.3-36.2 [facility] Comment on above: Performed By: #### P TT, PT #### [facility] [address] [place], [place] [address] Dr. Prashant Kang TSHon 02-24-2022 TSH 1.163 uIU/mL Normal 0.358-3.740 [facility] Comment on above: Performed By: #### P TT, PT #### [facility] [address] [place] [address] Dr. Prashant Kang US THYROID FN ASP BXon 02-09 US THYROID FN ASP BX Begin Addendum #1 COLLECTED DATE/TIME: 02/03/2022 11:36 EDT Final Diagnosis Report for [facility], [place] (A/B) THYROID ISTHMUS NODULE, FINE NEEDLE ASPIRATION: -SUSPICIOUS FOR MALIGNANCY. -SUSPICIOUS FOR PAPILLARY THYROID CARCINOMA. 02/09/[address] Eastman. Verified with Andree that report was present in office (). Original Report EXAMINATION: US THYROID FN ASP BX HISTORY: Thyroid nodule COMPARISON: Ultrasound thyroid 01/20/2022 TECHNIQUE: After obtaining informed consent, ultrasound-guided fine needle aspiration was performed in the usual sterile manner. FINDINGS: IMAGING: Ultrasound. BIOPSY NEEDLE: 25-gauge; 3 separate passes LOCATION: Right isthmus 1.5 cm nodule. SPECIMEN TYPE: Cellular tissue. LOCAL ANESTHETIC: Buffered Xylocaine. COMPLICATIONS: None. LABORATORY: Prepared slide smears and washings for cell block evaluation. OTHER: Negative. PATHOLOGY: Pending. An addendum will be added when results are available. IMPRESSION: 1. Uneventful ultrasound guided fine needle aspiration (FNA). 2. Pathology results are pending. Normal [facility] CT NECK ST W CONon [address] W CON EXAMINATION: CT NECK ST W CON HISTORY: Sensation of foreign body in throat COMPARISON: No relevant comparison available. TECHNIQUE: Axial, Coronal, and Sagittal CT images created with IV contrast. Dose reduction techniques were achieved by using automated exposure control and/or adjustment of mA and/or kV according to patient size and/or use of iterative reconstruction technique. FINDINGS: NASOPHARYNX: No asymmetry of the fossae of Rosenmuller and torus tubarius. ORAL CAVITY: No visible mass. OROPHARYNX: No asymmetry of the facial and lingual tonsils. HYPOPHARYNX: No mass or other visible lesion. LARYNX: No mass or asymmetry of the vocal cords. SINUSES: Mild right and moderate left maxillary sinus disease NECK GLADS: No visible abnormality of the parotid, submandibular, and thyroid glands. LYMPH NODES: Scattered normal-sized cervical lymph nodes VASCULATURE: No suspicious abnormality. BONES: No significant osseous lesions. OTHER: No additional imaging findings. IMPRESSION: No acute abnormality identified Electronically authenticated by: SHAILESH EMERY Date: 2022-01-20 13:05 Normal [facility] US THYROIDon 01-20-2022 US THYROID EXAMINATION: US THYROID HISTORY: Foreign body sensation COMPARISON: No relevant comparison available. TECHNIQUE: Sonographic images of the thyroid gland were obtained. FINDINGS: The right thyroid lobe is normal in size, contour and echotexture with no focal nodule. The thyroid isthmus is thickened measuring 8 mm. Single nodule. Nodule 1:1.9 x 1.4 x 0.7 cm. Solid, hypoechoic, wide, lobular margins, no calcifications. TR 4 The left lower lobe is normal in size, contour and homogeneous echotexture measuring 5.3 x 1.8 x 1.8 cm. No focal nodule. IMPRESSION: 1.9 cm TR4 thyroid isthmus nodule. Consider fine-needle aspiration TI-RADS: The [employer] TI-RADS committee's white paper recommendations for thyroid lesions classified as TR4 (moderately suspicious) are listed below: > 1.0 cm. Follow-up ultrasound in 1, 2, 3, and 5 years. > 1.5 cm. FNA. J. Am More Radiol 2017;14:[id number]. Electronically authenticated by: SHAILESH EMERY Date: 2022-01-20 21:46 Normal [facility] CBC AUTO DIFFon 01-08-2022 BASO # 0.0 103/ul Normal 0.0-0.1 [facility] Comment on above: Performed By: #### P TT, PT #### [facility] [address] [place] [address] Dr. Prashant Kang Basophils/100 WBC (Bld) 0.4 % Normal 0.2-2.0 [facility] Comment on above: Performed By: #### P TT, PT #### [facility] [address] [place] [address] Dr. Prashant Kang EO # 0.2 103/ul Normal 0.0-0.7 [facility] Comment on above: Performed By: #### P TT, PT #### [facility] [address] [place] [address] Dr. Prashant Kang Eosinophils/100 WBC (Bld) 3.4 % Normal 0.9-7.0 [facility] Comment on above: Performed By: #### P TT, PT #### [facility] [address] [place] [address] Dr. Prashant Kang Erythrocyte distribution width (RBC) [Ratio] 14.6 % Normal 11.0-15.0 [facility] Comment on above: Performed By: #### P TT, PT #### [facility] [address] [place] [address] Dr. Prashant Kang Hematocrit (Bld) [Volume fraction] 42.9 % Normal 36.0-48.0 [facility] Comment on above: Performed By: #### P TT, PT #### [facility] [address] [place] [address] Dr. Prashant Kang Hemoglobin (Bld) [Mass/Vol] 13.4 g/dL Normal 12.0-16.0 [facility] Comment on above: Performed By: #### P TT, PT #### [facility] [address] [place] [address] Dr. Prashant Kang IG # 0.02 10e3/ul Normal 0.00-0.03 [facility] Comment on above: Performed By: #### P TT, PT #### [facility] [address] [address] [address] Prashant Kang IG % 0.3 % Normal 0.0-0.5 [facility] Comment on above: Performed By: #### P TT, PT #### [facility] [address] [place] [address] [address] Prashant Kang LYMPH # 2.0 103/ul Normal 1.2-3.8 [facility] Comment on above: Performed By: #### P TT, PT #### [facility] [address] [place] [address] [address] Prashant Kang Lymphocytes/100 WBC (Bld) 29.7 % Normal 20.5-60.0 [facility] Comment on above: Performed By: #### P TT, PT #### [facility] [address] [place] [address] Dr. Prashant Kang MANUAL DIFF REQ NO Normal [facility] Comment on above: Performed By: #### P TT, PT #### [facility] [address] [place] [address] Dr. Prashant Kang MCH (RBC) [Entitic mass] 26.3 pg Critically low 26.7-34.0 [facility] Comment on above: Performed By: #### P TT, PT #### [facility] [address] [place] [address] Dr. Prashant Kang MCHC (RBC) [Mass/Vol] 31.2 g/dL Normal 29.9-35.2 [facility] Comment on above: Performed By: #### P TT, PT #### [facility] [address] [place] [address] Dr. Prashant Kang MCV (RBC) [Entitic vol] 84.1 fL Normal 81.0-99.0 [facility] Comment on above: Performed By: #### P TT, PT #### [facility] [address] [address] [address] Prashant Kang MONO # 0.6 103/ul Normal 0.3-0.8 [facility] Comment on above: Performed By: #### P TT, PT #### [facility] [address] [place] [address] Dr. Prashant Kang Monocytes/100 WBC (Bld) 8.7 % Normal 1.7-12.0 The [facility] Comment on above: Performed By: #### P TT, PT #### [facility] [address] [place] [address] Dr. Prashant Kang NEUT # 3.9 103/ul Normal 1.4-6.5 [facility] Comment on above: Performed By: #### P TT, PT #### [facility] [address] [place] [address] Dr. Prashant Kang Neutrophils/100 WBC (Bld) 57.5 % Normal 43.0-75.0 [facility] Comment on above: Performed By: #### P TT, PT #### [facility] [address] [place] [address] Dr. Prashant Kang Platelet mean volume (Bld) [Entitic vol] 9.9 fL Normal 9.5-13.5 [facility] Comment on above: Performed By: #### P TT, PT #### [facility] [address] [place] [address] Dr. Prashant Kang PLT 241 103/ul Normal 150-450 [facility] Comment on above: Performed By: #### P TT, PT #### [facility] [address] [place] [address] Dr. Prashant Kang RBC 5.10 106/ul Normal 4.20-5.40 [facility] Comment on above: Performed By: #### P TT, PT #### [facility] [address] [place] [address] Dr. Prashant Kang WBC 6.8 103/ul Normal 4.0-11.0 [facility] Comment on above: Performed By: #### P TT, PT #### [facility] [address] [place] [address] Dr. Prashant Kang GROUP A STREP CULTUREon 12-29 S. pyogenes Ag Ql (Unsp spec) Culture Observations: NEGATIVE FOR GROUP A STREPTOCOCCUS. Normal [facility] Comment on above: Performed By: #### P TT, PT #### [facility] [address] [place] [address] Dr. Prashant Kang PROF 14(COMP METB)on 022 Albumin [Mass/Vol] 3.6 g/dL Normal 3.4-5.0 [facility] Comment on above: Performed By: #### C MP #### [facility] [address] [place] [address] Dr. Prashant Kang Albumin/Globulin [Mass ratio] 0.8 {ratio} Normal [facility] Comment on above: Performed By: #### C MP #### [facility] [address] [place] [address] Dr. Prashant Kang ALP [Catalytic activity/Vol] 74 U/L Normal 46-116 [facility] Comment on above: Performed By: #### C MP #### [facility] [address] [place] [address] Dr. Prashant Kang ALT [Catalytic activity/Vol] 40 U/L Normal 14-59 [facility] Comment on above: Performed By: #### C MP #### [facility] [address] [place] [address] Dr. Prashant Kang Anion gap [Moles/Vol] 14.0 mmol/L Normal [facility] Comment on above: Performed By: #### C MP #### [facility] [address] [place] [address] Dr. Prashant Kang AST [Catalytic activity/Vol] 31 U/L Normal 15-37 [facility] Comment on above: Performed By: #### C MP #### [facility] [address] [place] [address] Dr. Prashant Kang Bilirubin [Mass/Vol] 0.4 mg/dL Normal 0.2-1.0 [facility] Comment on above: Performed By: #### C MP #### [facility] [address] [place] [address] Dr. Prashant Kang Calcium [Mass/Vol] 8.8 mg/dL Normal 8.5-10.1 [facility] Comment on above: Performed By: #### C MP #### [facility] [address] [address] [address] Prashant Kang Chloride [Moles/Vol] 105 mmol/L Normal 98-107 [facility] Comment on above: Performed By: #### C MP #### [facility] [address] [address] [address] Prashant Kang CO2 [Moles/Vol] 26.6 mmol/L Normal 21.0-32.0 [facility] Comment on above: Performed By: #### C MP #### [facility] [address] [address] [address] Prashant Kang Creatinine [Mass/Vol] 0.80 mg/dL Normal 0.55-1.02 [facility] Comment on above: Performed By: #### C MP #### [facility] [address] [place] [address] Dr. Prashant Kang EGFR-AF PRYDEINIG >60 Normal >=60 [facility] Comment on above: Performed By: #### C MP #### [facility] [address] [address] [address] Prashant Kang EGFR-NON AF PRYDEINIG >60 Normal >=60 [facility] Comment on above: Performed By: #### C MP #### [facility] [address] [address] [address] Prashant Kang Globulin (S) [Mass/Vol] 4.3 g/dL Normal [facility] Comment on above: Performed By: #### C MP #### [facility] [address] [address] [address] Prashant Kang Glucose [Mass/Vol] 101 mg/dL Normal 74-106 [facility] Comment on above: Performed By: #### C MP #### [facility] [address] [address] [address] Prashant Kang Potassium [Moles/Vol] 4.6 mmol/L Normal 3.5-5.1 [facility] Comment on above: Performed By: #### C MP #### [facility] [address] [address] [address] Prashant Kang Protein [Mass/Vol] 7.9 g/dL Normal 6.4-8.2 [facility] Comment on above: Performed By: #### C MP #### [facility] [address] [address] [address] Prashant Kang Sodium [Moles/Vol] 141 mmol/L Normal 136-145 [facility] Comment on above: Performed By: #### C MP #### [facility] [address] [address] [address] Prashant Kang Urea nitrogen [Mass/Vol] 11.0 mg/dL Normal 7.0-18.0 [facility] Comment on above: Performed By: #### C MP #### [facility] [address] [address] [address] Prashant Kang Urea nitrogen/Creatinine [Mass ratio] 13.8 mg/mg Normal [facility] Comment on above: Performed By: #### C MP #### [facility] [address] [address] [address] Prashant Kang STREPT SCREENon 01-08-2022 STREP SCREEN A Negative Normal NEGATIVE [facility] Comment on above: Performed By: #### P TT, PT #### [facility] [address] [address] [address] Prashant Kang XR NECK SOFT TISSUEon 2021 XR NECK SOFT TISSUE EXAM: XR NECK SOFT TISSUE 01/08/2022 3:24 AM EDT OH001 CLINICAL STATEMENT: Dyspnea COMPARISON: No prior studies are available at the time of dictation. TECHNIQUE: AP and lateral radiographs of the neck are submitted. FINDINGS: There is no thickening of the epiglottis. There is no prevertebral soft tissue swelling. The proximal airway appears patent. There is no evidence for radiopaque foreign body. IMPRESSION: Unremarkable soft tissue neck. FOLLOW UP: Follow-up as clinically indicated. Electronically authenticated by: MIKE SAID Date: 2022-01-08 04:43 Normal [facility] Covid-19 PCR (CVDTB)on SARS-CoV-2 (COVID-19) RNA DENEEN+probe Ql (Unsp spec) Not detected Normal NOT DETECTED [facility] Comment on above: Result Comment: This test is not yet approved or cleared by the [place] FDA. When there are no FDA-approved or cleared tests available, and other criteria are met, FDA can make tests available under an emergency access mechanism called an Emergency Use Authorization (EUA). The EUA for this test is supported by the [place] of Health and Human Service's (HHS's) declaration that circumstances exist to justify the emergency use of in vitro diagnostics for the detection and/or diagnosis of the virus that causes COVID-19. This EUA will remain in effect (meaning this test can be used) for the duration of the COVID-19 declaration justifying emergency of IVDs, unless it is terminated or revoked by FDA (after which the test may no longer be used). When diagnostic testing is negative, the possibility of a false negative should be considered in the context of a patient's recent exposures and the presence of clinical signs and symptoms consistent with SARS-CoV-2. Performed By: #### P TT, PT #### [facility] [address] [place] [address] Dr. Prashant Kang Vital Signs Date Time Vital Sign Value Performing Clinician Moniquei litmirella 06-12-2023 13:54-0500 Body mass index (BMI) [Ratio] 40.6 kg/m2 [employer] Work Phone: [facility] 06-12-2023 13:54-0500 Body weight 100.7 kg [employer] Work Phone: [facility] 06-12-2023 13:54-0500 Diastolic blood pressure 74 mm[Hg] [employer] Work Phone: [facility] 06-12-2023 13:54-0500 Systolic blood pressure 118 mm[Hg] [employer] Shania VODECLIC Work Phone: [facility] 05-04-2022 09:40-0500 Body temperature 97.2 [degF] JONNY Garcia MD Work Phone: [facility] 05-04-2022 09:40-0500 Body weight 88.81 kg JONNY Garcia MD Work Phone: [facility] 05-04-2022 09:40-0500 Diastolic blood pressure 73 mm[Hg] JONNY Garcia MD Work Phone: [facility] 05-04-2022 09:40-0500 Heart rate 67 /min JONNY Garcia MD Work Phone: [facility] 05-04-2022 09:40-0500 Respiratory rate 16 /min JONNY Garcia MD Work Phone: [facility] 05-04-2022 09:40-0500 SaO2% (BldA) [Mass fraction] 100 % JONNY Garcia MD Work Phone: [facility] 05-04-2022 09:40-0500 Systolic blood pressure 113 mm[Hg] JONNY Garcia MD Work Phone: [facility] Encounters Encounter Date Encounter Type Care Provider Facility Start: 06-12-2023 End: 06-12-2023 ambulatory ACOSTA SHANIA Not Available Start: 06-12-2023 End: 06-12-2023 Office outpatient visit 15 minutes Acosta Shania DO Work Phone: [facility] Comment on above: Missed menses; Amenorrhea Start: 02-14-2023 Telephone encounter Arslan Garcia MD Work Phone: [facility] Comment on above: Appointment Confirma tion Start: 02-08-2023 End: 02-09-2023 ambulatory Arslan HERIP CECELIA Facility:[facility] Start: 02-01-2023 End: 02-01-2023 ambulatory SARA MEDELLIN Facility:[facility] Start: 11-09-2022 Telephone encounter Arslan Garcia MD Work Phone: [facility] Comment on above: Appointment Confirma tion Start: 11-09-2022 End: 11-10-2022 ambulatory Arslan FELIPE CECELIA Facility:[facility] Start: 11-02-2022 End: 11-02-2022 ambulatory SARA MEDELLNI Facility:[facility] Start: 09-14-2022 End: 09-14-2022 ambulatory SARA MEDELLIN Facility:[facility] Start: 09-01-[address] SARA MEDELLIN . Facili ty:[facility] Start: 08-23-2022 End: 08-23-2022 ambulatory DHRUV MCDONALD Facility:[facility] Start: 08-17-2022 End: 08-27-[address] ACOSTA JAUREGUI . Facility:[facility] Start: 08-06-2022 End: 08-06-2022 ambulatory DHRUV MCDONALD Facility:[facility] Start: 07-18-2022 End: 07-18-2022 ambulatory Arslan GARCIA Facility:[facility] Start: 07-17-2022 Telephone encounter Arslan Garcia MD Work Phone: Radiation Oncology Comment on above: Phone Visit Start: 07-04-2022 End: 07-28-[address] ACOSTA JAUREGUI . Facility: Start: 07-03-2022 End: 07-03-2022 ambulatory SARA MEDELLIN Facility:[facility] Start: 05-08-2022 End: 05-30-[address] ACOSTA JAUREGUI . Facility: Start: 05-04-2022 End: 05-04-2022 ambulatory Arslan GARCIA Facility:[facility] Start: 05-04-2022 End: 05-04-2022 Patient encounter procedure Arslan Garcia MD Work Phone: Radiation Oncology Comment on above: Thyroid cancer (HCC) (Primary Dx) Start: 04-25-2022 Telephone encounter Arslan Garcia MD Work Phone: [facility] Comment on above: Missed Appointment Start: 04-22-2022 End: 04-25-2022 ambulatory Arslan GARCIA Facility:[facility] Start: 04-20-2022 Patient encounter procedure [facility] Provider [facility] Department Start: 04-11-2022 End: 04-11-2022 ambulatory SARA MEDELLIN Facility:[facility] Start: 04-11-2022 End: 04-11-2022 Patient encounter procedure Lab/[facility] Work Phone: Radiation Oncology Comment on above: Thyroid cancer (HCC) (Primary Dx) Start: 03-09-2022 Encounter for preprocedural laboratory examination DR CHARLIE EASTMAN [facility] Start: 03-07-2022 End: 03-08-[address] CHARLIE EASTMAN Facility:[facility] Start: 03-04-2022 End: 03-05-[address] CHARLIE EASTMAN Facility:[facility] Start: 03-04-2022 End: 03-05-2022 Encounter for preprocedural laboratory examination DR CHARLIE EASTMAN Facility:[facility] Start: 02-24-2022 End: 02-25-[address] CHARLIE EASTMAN Facility:[facility] Start: 02-06-2022 End: 02-06-2022 ambulatory CLARI HARRIS . Facility:[facility] Start: 02-03-2022 End: 02-03-[address] CHARLIE EASTMAN Facility:[facility] Start: 01-20-2022 End: 01-21-[address] SARA MEDELLIN . Facility:[facility] Start: 01-08-2022 End: 01-08-[address] GAIL STOLL Facility:[facility] Start: 01-04-2022 End: 01-04-[address] SARA MEDELLIN . Facility:[facility] Start: 12-12-2021 End: 12-12-2021 ambulatory DHRUV MCDONALD Facility:[facility] Plan of Treatment Date Care Activity Detail Author Start: 06-26-2023 End: 06-26-2023 Professional / ancillary services management 06/26/2023 1:00 PM EST Ancillary Procedure [facility] [address] [place] [address] [place] [id number] [facility] Start: 06-12-2023 End: 06-12-2024 US for US PELVIS-TRANSVAG IF INDICATED Imaging Routine Amenorrhea Expected: 06/12/2023 (Approximate), Expires: 06/12/2024 [facility] Comment on above: Expected: 06/12/2023 (Approximate), Expires: 06/12/2024 Start: 12-29-2022 Influenza [facility] Start: 07-02-2022 End: 09-01-2022 THYROGLOBULIN BY MASS SPECTROMETRY THYROGLOBULIN BY MASS SPECTROMETRY Lab Routine Thyroid cancer (HCC) Expected: 07/02/2022, Expires: 09/01/2022 [facility] Work Phone: Comment on above: Expected: 07/02/2022 , Expires: 09/01/2022 Start: 07-02-2022 End: 09-01-2022 Thyrotropin [Units/volume] in Serum or Plasma TSH BLD Lab Routine Thyroid cancer (HCC) Expected: 07/02/2022, Expires: 09/01/2022 [facility] Work Phone: Comment on above: Expected: 07/02/2022 , Expires: 09/01/2022 Start: 07-02-2022 End: 09-01-2022 Thyroxine (T4) [Mass/volume] in Serum or Plasma T4/THYROXINE BLOOD Lab Routine Thyroid cancer (HCC) Expected: 07/02/2022, Expires: 09/01/2022 [facility] Work Phone: Comment on above: Expected: 07/02/2022 , Expires: 09/01/2022 Start: 04-30-2022 DEPRESSION ASSESSMENT DEPRESSION ASS [facility] Start: 2022 HPV TESTING HPV TESTING [facility] Start: 12-29-2021 Influenza vaccination INFLUENZA (#1) [facility] Start: 04-30-2021 DEPRESSION ASSESSMENT DEPRESSION ASS [facility] Start: 2013 PAP TESTING PAP TESTING [facility] Start: 2011 Urine microalbumin profile [facility] Start: 2010 HEPATITIS C SCREENING HEPATITIS C SC REENING [facility] Start: 2010 HIV SCREENING HIV SCREENING [facility] Start: 1998 PNEUMOCOCCAL (1 - PCV) PNEUMOCOCCAL (1 - PCV) [facility] Start: 1998 Pneumococcal vaccination Pneum ococcal Vaccine (1 - PCV) [facility] Start: 1992 COVID-19 VACCINE (#1) COVID-19 VACCI NE (#1) [facility] Start: 1992 HEPATITIS B (1 of 3 - 3-dose series) HEPATITIS B (1 of 3 - 3-dose series) [facility] Start: 1992 Hepatitis B Vaccine (1 of 3 - 3-dose series) Hepatitis B Vaccine (1 of 3 - 3-dose series) [facility] CBC W Auto Different ial panel - Blood CBC and differential Lab Routine Amenorrhea Ordered: 06/12/2023 [facility] Comment on above: Ordered: 06/12/2023 hCG, quantitative, hCG, quantitative, Lab Routine Amenorrhea Ordered: 06/12/2023 [facility] Comment on above: Ordered: 06/12/2023 Hemoglobin A1c measurement Hemoglobin A1c Lab Routine Amenorrhea Ordered: 06/12/2023 [facility] Comment on above: Ordered: 06/12/2023 Prolactin Prolactin Lab Ro utine Amenorrhea Ordered: 06/12/2023 [facility] Comment on above: Ordered: 06/12/2023 Thyrotropin [Units/volume] in Serum or Plasma TSH Lab Routine Amenorrhea Ordered: 06/12/2023 [facility] Work Phone: Comment on above: Ordered: 06/12/2023 [facility] Payers Date Payer Category Payer Medicaid [id number] 1992 Unknown [id number] 2.16.84 [id number] 1992 Unknown [id number] 2.16.84 [id number] 1992 Unknown [id number] 2.16.84 [id number] 1992 Unknown [id number] 2.16.84 [id number] 1992 Unknown [id number] 2.16.84 [id number] 1992 Unknown [id number] 2.16.84 [id number] 1992 Unknown [id number] 2.16.84 [id number] 1992 Unknown [id number] 2.16.84 [id number] 1992 Unknown [id number] 2.16.84 [id number] 1992 Unknown [id number] 2.16.84 [id number] 1992 Unknown [id number] 2.16.84 0.1.465119.3.579.2.593 1992 Unknown [id number] 2.16.84 [id number] 1992 Unknown [id number] 2.16.84 [id number] 1992 Unknown [id number] 2.16.84 [id number] 1992 Unknown [id number] 2.16.84 [id number] 1992 Unknown [id number] 2.16.84 [id number] 1959 Unknown [id number] Social History Date Type Detail Facility Start: 04-11-2022 End: 09-23-2022 Tobacco smoking status NHIS Smokes tobacco daily [facility] History of tobacco use Cigarette Smoker [facility] Start: 04-11-2022 End: 01-03-2023 Cigarettes smoked current (pack per day) - Reported [address] [facility] Start: 04-11-2022 End: 09-23-2022 Tobacco use and exposure Smokeless tobacco non-user [facility] Start: 04-11-2022 End: 06-12-2023 Alcohol intake Current drinker of alcohol (finding) [facility] Start: 04-11-2022 Alcohol Comment socially [facility] Start: 1990 Sex Assigned At Not on file [facility] Start: 05-04-2022 End: 01-03-2023 Tobacco use panel [facility] Adult Depression Screening Assessment [address] [facility] Start: 10-03-2022 Alcohol Comment caffeine intak e: 1-2 cups per day [facility] Start: 1990 Sex Assigned At Female [facility] Start: 10-04-2022 Gender identity Identifies as female gender (finding) [facility] Clinical Notes 03-07-2022 to 06-12-2023 MAXIMILIAN Lombardo - 06/12/2023 1:50 PM ESTTelephone Encounter - Kerntoñtio Dunlap Obi - 02/14/2023 9:52 AM EDTTelephone Encounter - Erlin Dunlap, Obi - 11/09/2022 3:39 PM EDT Note Date & Type Note Facility 06-12-2023 History of Present illness Narrative Reason for Appointment: Patient ID: Amanda Cortez is a 33 y.o. female who presents for Amenorrhea Patient presents today for Acute Visit appointment. Pt presents for missed menses but states started yesterday. Pt has irregular menses concerned for ovarian cyst or possible pregnacy. Current Medications: has a current medication list which includes the following prescription(s): citalopram, levothyroxine, mometasone, multivitamin, norethindrone, omeprazole, and triamterene-hydrochlorothiazide. 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 Resolved Ambulatory Problems Diagnosis Date Noted Acid reflux 09/23/2022 Amenorrhea 09/23/2022 Lesion of palate 09/23/2022 depression (CMS/HCC) 09/23/2022 Thyroid mass (CMS/HCC) 09/23/2022 Vaginal delivery 09/23/2022 Past Medical History: Diagnosis Date Chronic maxillary sinusitis Diarrhea Ear problems Family planning Fatigue Fibroadenoma of breast, right Foreign body sensation in throat History of miscarriage LPRD (laryngopharyngeal reflux disease) Obesity Papilloma of palate PCOS (polycystic ovarian syndrome) Thyroid nodule (CMS/HCC) Family History Problem Relation Name Age of Onset Asthma Mother Izzy Fibromyalgia Mother Izzy Arthritis Mother Izzy Migraines Mother Izzy Diabetes Mother Izzy Diabetes Maternal Grandmother Lisa Heart failure Maternal Grandfather Milan No Known Problems Daughter No Known Problems Son Social History Tobacco Use Smoking status: Every Day Packs/day: 1 Types: Cigarettes Smokeless tobacco: Never Substance Use Topics Alcohol use: Yes Alcohol/week: 1.0 - 2.0 standard drink of alcohol Types: 1 - 2 Standard drinks or equivalent per week Comment: caffeine intake: 1-2 cups per day Drug use: Never Past Surgical History: Procedure Laterality Date CHOLECYSTECTOMY FNA BIOPSY INCLUDING ULTRASOUND GUIDANCE EA ADD LESION 02/03/2022 thyroid LAPAROSCOPY ABDOMEN DIAGNOSTIC THYROID SURGERY Allergies Allergen Reactions Cefaclor Anaphylaxis Penicillin G Sodium Anaphylaxis Review of Systems: Review of Systems Constitutional: Negative. HENT: Negative. Eyes: Negative. Respiratory: Negative. Cardiovascular: Negative. Gastrointestinal: Negative. Genitourinary: Negative. Musculoskeletal: Negative. Skin: Negative. Neurological: Negative. All other systems reviewed and are negative. Hematological: Negative. Endocrine: Negative. Allergic/Immunologic: Negative. Objective Physical Exam Constitutional: Appearance: Normal appearance. She is normal weight. HENT: Head: Normocephalic. Cardiovascular: Rate and Rhythm: Normal rate. Pulses: Normal pulses. Pulmonary: Effort: Pulmonary effort is normal. Breath sounds: Normal breath sounds. Abdominal: Palpations: Abdomen is soft. Musculoskeletal: General: Normal range of motion. Neurological: General: No focal deficit present. Mental Status: She is alert and oriented to person, place, and time. Psychiatric: Mood and Affect: Mood normal. Behavior: Behavior normal. Thought Content: Thought content normal. Judgment: Judgment normal. Vitals and nursing note reviewed. Vitals: Estimated body mass index is 40.6 kg/m as calculated from the following: Height as of 01/03/23: 5' 2 . Weight as of this encounter: 222 lb. BP: 118/74 Patient's last menstrual period was 06/11/2023. Assessment/Plan Encounter Diagnoses Name Primary? Missed menses Amenorrhea Pt unable to provide UA in office. Pt given blood work orders including hcg quant and US as well as due to history of ovarian cyst. Pt to schedule follow up and annual exam. Documented by MAXIMILIAN Lombardo on behalf of: Acosta Jauregui DO documented in this encounter [facility] 02-14-2023 Miscellaneous Notes Images from the original note were not included. Patient is scheduled for appointments Arslan Garcia MD [facility] Govind Wade; Obi Genao 4 months with labs. Orders have been placed in [employer]. documented in this encounter [facility] 02-08-2023 Note HNO ID: [id number] Author: Arslan Garcia MD Service: ? Author Type: Physician Type: Progress Notes Filed: 02/14/2023 9:47 AM Note Text: AMBULATORY TELEPHONE VISIT Amanda Cortez has consented to this telephone encounter. Persons Present: patient Chief Complaint/Reason: Thyroid cancer. HPI: Doing well. Occasional tired. She is still breast-feeding. Data Reviewed: Most recent labs Latest Reference Range AND Units 04/11/22 10:41 07/03/22 09:12 09/14/22 09:19 11/02/22 15:48 02/01/23 11:43 T4 5.5 - 10.2 ug/dL 7.0 4.5 (L) 8.3 11.9 (H) TSH 0.270 - 4.200 mIU/L 77.100 (H) 89.200 (H) 23.200 (H) 0.960 T3 79 - 165 ng/dL 84 123 Thyroglobulin Ab <14.4 IU/mL 20.6 (H) (L): Data is abnormally low (H): Data is abnormally high Hemoglobin (g/dL) Date Value 02/01/2023 15.6 Hematocrit (%) Date Value 02/01/2023 47.7 WBC (k/uL) Date Value 02/01/2023 7.75 Platelet Count (k/uL) Date Value 02/01/2023 248 Assessment: Thyroid cancer status post thyroidectomy. Thyroid replacement dose seems more appropriate. We will maintain currently. Patient states that she wants to continue breast-feeding for some time. Given that her post thyroidectomy thyroglobulin relatively well believe is reasonable to continue to hold off any I-131 treatments. Plan to recheck labs in 4 months. Total Time Spent: 6 minutes Arslan Garcia MD [facility] 11-09-2022 Miscellaneous Notes Images from the original note were not included. Patient is called and scheduled. Arslan Garcia MD [facility]; [place] 8 weeks with labs, orders placed, thank you documented in this encounter [facility] 11-09-2022 Note HNO ID: [id number] Author: Arslan Garcia MD Service: ? Author Type: Physician Type: Progress Notes Filed: 11/09/2022 3:01 PM Note Text: AMBULATORY TELEPHONE VISIT Amanda Cortez has consented to this telephone encounter. Persons Present: patient Chief Complaint/Reason: Thyroid cancer. HPI: Doing well. Occasional tired. She is still breast-feeding. Data Reviewed: Most recent labs Latest Reference Range AND Units 04/11/22 10:41 07/03/22 09:12 09/14/22 09:19 11/02/22 15:48 Thyroglobulin, LC-MS/MS 1.3 - 31.8 ng/mL 1.6 1.6 T4 5.5 - 10.2 ug/dL 7.0 4.5 (L) 8.3 TSH 0.270 - 4.200 mIU/L 77.100 (H) 89.200 (H) 23.200 (H) T3 79 - 165 ng/dL 84 Thyroglobulin Ab <14.4 IU/mL 20.6 (H) (L): Data is abnormally low (H): Data is abnormally high Assessment: Thyroid cancer status post thyroidectomy. Will need to increase dose of Synthroid to 175 mcg daily given TSH elevation. Recheck labs and 6 to 8 weeks. Discussed coordinating I-131 treatment at that time. Total Time Spent: 6 minutes Arslan Garcia MD [facility] 07-18-2022 Note HNO ID: [id number] Author: Arslan Garcia MD Service: ? Author Type: Physician Type: Progress Notes Filed: 07/18/2022 2:40 PM Note Text: AMBULATORY TELEPHONE VISIT Amanda Serrato Cortez has consented to this telephone encounter. Persons Present: patient Chief Complaint/Reason: Thyroid cancer. HPI: Doing well. Occasional tired. 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 Data Reviewed: Most recent labs Latest Reference Range AND Units 04/11/22 10:41 07/03/22 09:12 Thyroglobulin, LC-MS/MS 1.3 - 31.8 ng/mL 1.6 1.6 Latest Reference Range AND Units Most Recent 04/11/22 10:41 07/03/22 09:12 T4 5.5 - 10.2 ug/dL 7.0 07/03/22 09:12 7.0 TSH 0.270 - 4.200 mIU/L 77.100 (H) 07/03/22 09:12 77.100 (H) Thyroglobulin Ab <14.4 IU/mL 20.6 (H) 04/11/22 10:41 20.6 (H) (H): Data is abnormally high Assessment: Thyroid cancer status post thyroidectomy. Patient is still breast-feeding. We will need to hold off I-131. TSH needs to be further suppressed, will increase Synthroid to 125 mcg daily recheck labs in 6 to 8 weeks. Total Time Spent: 6 minutes Arslan Garcia MD [facility] 07-17-2022 Miscellaneous Notes Appointment has been changed to phone appt. Yfn Nelson Pt called in requesting to be switched to a phone visit tomorrow. Her kids are on spring break and a couple of them are sick. Labs have been done and resulted. PSS- please change to phone visit for tomorrow. Danna Pitts, RN documented in this encounter [facility] 05-04-2022 Note HNO ID: [id number] Author: Arslan Garcia MD Service: ? Author Type: Physician Type: Progress Notes Filed: 05/04/2022 9:58 AM Note Text: Radiation Oncology - FollowupNote PATIENT NAME: Amanda Cortez PATIENT : 1990 DIAGNOSIS: Thyroid cancer, classic papillary thyroid carcinoma, status post total thyroidectomy and right neck exploration on 03/07/2022, stage I [id number]. HPI: Patient returns after further work-up and for further discussion about potential I-131 postoperative treatment. LABORATORY: Latest Reference Range AND Units 04/11/22 10:41 Thyroglobulin Ab <14.4 IU/mL 20.6 (H) Thyroglobulin, LC-MS/MS 1.3 - 31.8 ng/mL 1.6 (H): Data is abnormally high FOCUSED ROS: Dysphagia: No Mucositis: No Voice Changes:No Fatigue: No Nausea: No Vomitting: No Pain: No Taste: No Weight loss: No ALLERGIES Allergen Reactions Ceclor [Cefaclor] Hives, Shortness of Breath Penicillins Hives, Shortness of Breath MEDICATIONS: liothyronine (CYTOMEL) 25 mcg tablet TAKE ONE TABLET BY MOUTH TWICE A DAY FOR 30 DAYS fluticasone (FLONASE) 50 mcg/actuation nasal spray albuterol (PROVENTIL) 2.5 mg /3 mL (0.083 %) nebulizer solution INHALE CONTENTS OF 1 VIAL VIA NEBULIZER EVERY 4 HOURS NEEDED ibuprofen (MOTRIN) 800 mg tablet Take 800 mg by mouth. omeprazole (PRILOSEC) 40 mg capsule TAKE ONE CAPSULE BY MOUTH ONCE DAILY IN THE MORNING 30 TO 60 MINUTES PRIOR TO BREAKFAST JENCYCLA 0.35 mg tablet Take 1 tablet by mouth once daily. Multivitamin capsule Take 1 capsule by mouth once daily. Digestive Enzymes tab Take by mouth. OTC PRODUCT Supplement by [employer] for breast feeding levothyroxine (SYNTHROID) 112 mcg tablet Take 1 tablet by mouth once daily. PAST MEDICAL HISTORY Diagnosis Date Asthma GERD (gastroesophageal reflux disease) Prior radiation therapy, collagen vascular disease, or inflammatory bowel disease: No status: Patient states there is no possibility she is at this time. Educated on risks of during treatment. PAST SURGICAL HISTORY Procedure Laterality Date CHOLEYCYSTOGRAM GALL BLADDER PAST SURGICAL HISTORY OF cyst removed form ovaries x 2 THYROIDECTOMY FAMILY HISTORY Problem Relation Age of Onset Lung Cancer Maternal great-grandmother Social History Tobacco Use Smoking status: Every Day Packs/day: 1.00 Years: 15.00 Pack years: 15.00 Types: Cigarettes Smokeless tobacco: Never Substance Use Topics Alcohol use: Yes Comment: socially Drug use: Not Currently COMPLETE REVIEW OF SYSTEMS: GENERAL: feeling well without fatigue, no recent change in weight HEENT: denies DIAZ, change in hearing or vision, no other ENT complaints NECK: Mild irritation along incision no swelling. RESPIRATORY: no cough, no wheezing or shortness of breath CARDIOVASCULAR: no chest pain, no palpitations NEURO: no numbness or paresthesias and no weakness of the extremities As noted in HPI PHYSICAL EXAM: VS: BP 113/73 Pulse 67 Temp 36.2 ?C (97.2 ?F) (Temporal) Resp 16 Wt 88.8 kg (195 lb 12.8 oz) SpO2 100% Unknown BMI 35.24 kg/m? KPS: 100 General Appearance: Alert and oriented. No acute distress. Neck: Normal ROM. Well-healing low neck incision. Small area of induration along incision no obvious infection, no palpable cervical or supraclavicular adenopathy. Hematologic: No signs of active bleeding. RADIOLOGY/LABORATORY DATA: see HPI ASSESSMENT/PLAN: Thyroid cancer, classic papillary thyroid carcinoma, status post total thyroidectomy and right neck exploration on 03/07/2022, stage [id number]. Patient does have significant thyroglobulin antibody however thyroglobulin by interference assay less than 2. However given detectable thyroglobulin and antibody I do feel that I-131 treatment is indicated. Patient still wants to continue breast-feeding. Given we have to wait 3 to 6 months after stopping breast-feeding we will plan to start her on Synthroid. We will plan to recheck her labs in 2 to 3 months and discuss future planning after that. Given relatively low thyroglobulin do feel it is safe to wait I-131 treatment. Signed by: Arslan Garcia MD cc: To use this Smartlink, specify the provider ID whose address you want to display, e.g., .[email or web address][1 (where 1 is the provider ID). No referring provider defined for this encounter. [facility] 05-04-2022 History of Present illness Narrative Radiation Oncology - FollowupNote PATIENT NAME: Amanda Cortez PATIENT : 1990 DIAGNOSIS: Thyroid cancer, classic papillary thyroid carcinoma, status post total thyroidectomy and right neck exploration on 03/07/2022, stage I [id number]. HPI: Patient returns after further work-up and for further discussion about potential I-131 postoperative treatment. LABORATORY: Latest Reference Range & Units 04/11/22 10:41 Thyroglobulin Ab <14.4 IU/mL 20.6 (H) Thyroglobulin, LC-MS/MS 1.3 - 31.8 ng/mL 1.6 (H): Data is abnormally high FOCUSED ROS: Dysphagia: No Mucositis: No Voice Changes:No Fatigue: No Nausea: No Vomitting: No Pain: No Taste: No Weight loss: No ALLERGIES Allergen Reactions Ceclor [Cefaclor] Hives, Shortness of Breath Penicillins Hives, Shortness of Breath MEDICATIONS: liothyronine (CYTOMEL) 25 mcg tablet TAKE ONE TABLET BY MOUTH TWICE A DAY FOR 30 DAYS fluticasone (FLONASE) 50 mcg/actuation nasal spray albuterol (PROVENTIL) 2.5 mg /3 mL (0.083 %) nebulizer solution INHALE CONTENTS OF 1 VIAL VIA NEBULIZER EVERY 4 HOURS NEEDED ibuprofen (MOTRIN) 800 mg tablet Take 800 mg by mouth. omeprazole (PRILOSEC) 40 mg capsule TAKE ONE CAPSULE BY MOUTH ONCE DAILY IN THE MORNING 30 TO 60 MINUTES PRIOR TO BREAKFAST JENCYCLA 0.35 mg tablet Take 1 tablet by mouth once daily. Multivitamin capsule Take 1 capsule by mouth once daily. Digestive Enzymes tab Take by mouth. OTC PRODUCT Supplement by [employer] for breast feeding levothyroxine (SYNTHROID) 112 mcg tablet Take 1 tablet by mouth once daily. PAST MEDICAL HISTORY Diagnosis Date Asthma GERD (gastroesophageal reflux disease) Prior radiation therapy, collagen vascular disease, or inflammatory bowel disease: No status: Patient states there is no possibility she is at this time. Educated on risks of during treatment. PAST SURGICAL HISTORY Procedure Laterality Date CHOLEYCYSTOGRAM GALL BLADDER PAST SURGICAL HISTORY OF cyst removed form ovaries x 2 THYROIDECTOMY FAMILY HISTORY Problem Relation Age of Onset Lung Cancer Maternal great-grandmother Social History Tobacco Use Smoking status: Every Day Packs/day: 1.00 Years: 15.00 Pack years: 15.00 Types: Cigarettes Smokeless tobacco: Never Substance Use Topics Alcohol use: Yes Comment: socially Drug use: Not Currently COMPLETE REVIEW OF SYSTEMS: GENERAL: feeling well without fatigue, no recent change in weight HEENT: denies DIAZ, change in hearing or vision, no other ENT complaints NECK: Mild irritation along incision no swelling. RESPIRATORY: no cough, no wheezing or shortness of breath CARDIOVASCULAR: no chest pain, no palpitations NEURO: no numbness or paresthesias and no weakness of the extremities As noted in HPI PHYSICAL EXAM: VS: BP 113/73 Pulse 67 Temp 36.2 C (97.2 F) (Temporal) Resp 16 Wt 88.8 kg (195 lb 12.8 oz) SpO2 100% Unknown BMI 35.24 kg/m KPS: 100 General Appearance: Alert and oriented. No acute distress. Neck: Normal ROM. Well-healing low neck incision. Small area of induration along incision no obvious infection, no palpable cervical or supraclavicular adenopathy. Hematologic: No signs of active bleeding. RADIOLOGY/LABORATORY DATA: see HPI ASSESSMENT/PLAN: Thyroid cancer, classic papillary thyroid carcinoma, status post total thyroidectomy and right neck exploration on 03/07/2022, stage [id number]. Patient does have significant thyroglobulin antibody however thyroglobulin by interference assay less than 2. However given detectable thyroglobulin and antibody I do feel that I-131 treatment is indicated. Patient still wants to continue breast-feeding. Given we have to wait 3 to 6 months after stopping breast-feeding we will plan to start her on Synthroid. We will plan to recheck her labs in 2 to 3 months and discuss future planning after that. Given relatively low thyroglobulin do feel it is safe to wait I-131 treatment. Signed by: Arslan Garcia MD cc: To use this Smartlink, specify the provider ID whose address you want to display, e.g., .[email or web address][1 (where 1 is the provider ID). No referring provider defined for this encounter. documented in this encounter [facility] 04-25-2022 Miscellaneous Notes Patient had been rescheduled. Yfn Nelson Images from the original note were not included. Called patient to reschedule, LMOV. MD Jessica Jnekins Nurse Pool; Yfn Nelson Unable to reach please reschedule documented in this encounter [facility] 04-11-2022 Note HNO ID: [id number] Author: Arslan Garcia MD Service: ? Author Type: Physician Type: Progress Notes Filed: 04/18/2022 2:20 PM Note Text: Radiation Oncology - New Patient/Consult Note PATIENT NAME: Amanda Cortez PATIENT : 1990 REQUESTING PROVIDER: Dr. Eastman Primary Site: Thyroid Date of Diagnosis: March 07, 2022 Clinical Stage: T1 N0 M0 Pathologic Stage: T1 b N0 M0 DIAGNOSIS: 32 year old female with thyroid cancer, classic papillary thyroid carcinoma, status post total thyroidectomy and right neck exploration on 03/07/2022, stage I [id number]. HPI: 32 year old female who presents with above diagnosis, for an opinion regarding the role of radiation therapy in the management of the patient's disease. Final recommendations will be communicated back to the requesting physician by way of the shared medical record, or letter to requesting physician via US mail. Patient presented with dysphagia for approximately 1 to [address] of the neck with contrast on 01/20/2022 without significant findings. Thyroid ultrasound on 01/19/2022 demonstrating a 19 x 14 x 7 mm solid hypoechoic nodule within the right aspect of the thyroid isthmus. She underwent FNA, ultrasound-guided on 02/03/2022 showing findings suspicious for papillary thyroid carcinoma. Patient underwent total thyroidectomy and right neck exploration on 03/07/2022 in addition excision of right palate lesion. Intraoperative findings including a firm 2 cm mass on the right aspect of the thyroid isthmus. An adjacent anterior compartment lymph node identified and removed. An additional right lateral lymph node also removed. 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 Right thyroid and isthmus: 1.5 cm classic papillary thyroid carcinoma confined to the thyroid, no vascular invasion, resection margins negative Left thyroid: Small focus papillary thyroid carcinoma classic, 4 mm confined to the thyroid no lymphovascular invasion margins negative. Additional right parathyroid lymph node excision showing benign thyroid tissue without malignancy, additional anterior compartment lymph node without metastatic involvement. Patient is otherwise in good health. She is actively breast-feeding her child, approximately 9-month old. She has 4 children, states that her and her cannot plan to have any other children. She does states she wants to breast-feed until her youngest is 2 years if possible. FOCUSED ROS: Dysphagia: No Mucositis: No Voice Changes:No Fatigue: No Nausea: No Vomitting: No Pain: No Taste: No Weight loss: No ALLERGIES Allergen Reactions Ceclor [Cefaclor] Hives, Shortness of Breath Penicillins Hives, Shortness of Breath MEDICATIONS: liothyronine (CYTOMEL) 25 mcg tablet TAKE ONE TABLET BY MOUTH TWICE A DAY FOR 30 DAYS fluticasone (FLONASE) 50 mcg/actuation nasal spray albuterol (PROVENTIL) 2.5 mg /3 mL (0.083 %) nebulizer solution INHALE CONTENTS OF 1 VIAL VIA NEBULIZER EVERY 4 HOURS NEEDED ibuprofen (MOTRIN) 800 mg tablet Take 800 mg by mouth. omeprazole (PRILOSEC) 40 mg capsule TAKE ONE CAPSULE BY MOUTH ONCE DAILY IN THE MORNING 30 TO 60 MINUTES PRIOR TO BREAKFAST JENCYCLA 0.35 mg tablet Take 1 tablet by mouth once daily. Multivitamin capsule Take 1 capsule by mouth once daily. Digestive Enzymes tab Take by mouth. OTC PRODUCT Supplement by [employer] for breast feeding PAST MEDICAL HISTORY Diagnosis Date Asthma GERD (gastroesophageal reflux disease) Prior radiation therapy, collagen vascular disease, or inflammatory bowel disease: No status: Patient states there is no possibility she is at this time. Educated on risks of during treatment. PAST SURGICAL HISTORY Procedure Laterality Date CHOLEYCYSTOGRAM GALL BLADDER PAST SURGICAL HISTORY OF cyst removed form ovaries x 2 THYROIDECTOMY FAMILY HISTORY Problem Relation Age of Onset Lung Cancer Maternal great-grandmother Social History Tobacco Use Smoking status: Every Day Packs/day: 1.00 Years: 15.00 Pack years: 15.00 Types: Cigarettes Smokeless tobacco: Never Substance Use Topics Alcohol use: Yes Comment: socially Drug use: Not Currently COMPLETE REVIEW OF SYSTEMS: GENERAL: feeling well without fatigue, no recent change in weight HEENT: denies DIAZ, change in hearing or vision, no other ENT complaints NECK: denies swelling or pain in neck RESPIRATORY: no cough, no wheezing or shortness of breath CARDIOVASCULAR: no chest pain, no palpitations NEURO: no numbness or paresthesias and no weakness of the extremities As noted in HPI PHYSICAL EXAM: VS: BP 109/72 Pulse 76 Temp 36.6 ?C (97.9 ?F) Resp 18 Ht 158.8 cm (5' 2.5 ) Wt 88 kg (194 lb) SpO2 98% Yes BMI 34.92 kg/m? KPS: 100 General Appearance: Alert and oriented. No acute d (more content not included)... [facility] 04-11-2022 Nurse Note Amanda Cortez presents in office today for: Lab Draw during Office Visit . Ordering Provider: Felipe Garcia M.D. Test (s) ordered: TG Method for obtaining blood: Phlebotomy was performed, accessing right antecubital vein. Needle removed intact. Dressing secured. Patient denies discomfort, dizziness, light-headedness or weakness and left the department without assist. Danna Pitts RN documented in this encounter [facility] 03-07-2022 Note OPERATIVE NOTE OPERATION DATE: 03/07/2022 PRIMARY CARE PHYSICIAN: Sara Medellin M.D. SURGEON: Charlie Eastman M.D. ASSISTANTS: ANGE Richards and ANGE Ng PREOPERATIVE DIAGNOSIS: Right palate lesion and papillary carcinoma of the thyroid. POSTOPERATIVE DIAGNOSIS: Right palate lesion and papillary carcinoma of the thyroid. PROCEDURE: Removal of right palate lesion, total thyroidectomy and right neck exploration. INDICATIONS: This 31-year-old woman presented initially for evaluation of swallowing difficulty and subsequently was found to have papillary carcinoma of the thyroid involving a 2 cm mass of the thyroid isthmus. She was also noted, incidentally, on examination in the office to have an apparent papilloma of the free margin of the right soft palate. ANESTHESIA: General endotracheal. COMPLICATIONS: None. FINDINGS: A 2 cm firm right thyroid isthmus mass consistent with papillary carcinoma, left anterior compartment lymph node and right parathyroidal lymph nodes, large pyramidal lobe and 4 mm pedunculated papilloma of the free margin of the right palate. PROCEDURE: Patient identified in the holding area and taken back to the OR, where she was placed in the supine position. After induction of general endotracheal anesthesia, a McIvor mouth gag was placed with care taken to avoid injury to the lips, teeth and tongue. Papilloma of the right palate was grasped with the forcep and removed with a scissor. There was brief self limited bleeding. Then, the endotracheal tube was secured and a shoulder roll was placed. The neck was prepped and draped in a sterile fashion. An 8 cm transverse incision was made following relaxed skin lines of tension and dissection carried out through the platysma with electrocautery. Subplatysmal flaps were raised superiorly to the thyroid notch and inferiorly to the clavicle. The thyroid retractor was then put in position. The strap muscles were incised in the midline with electrocautery and elevated laterally. The patient had a palpable mass consistent with her apparent carcinoma of the rights side of the thyroid isthmus. The left thyroid isthmus was transected with harmonic scalpel, and the isthmus was then elevated off the trachea with harmonic scalpel. At this point, there was a lymph node evident, adjacent to the thyroid in the anterior compartment, and this was removed with electrocautery and sent for pathologic analysis. The thyroid was grasped with two Allis clamps and the strap muscles were retracted laterally on the right hand side. The strap muscles were bluntly elevated off of the thyroid gland with a hemostat and harmonic scalpel, and then a subcapsular dissection was undertaken, first freeing the superior pole of the thyroid by hemoclipping the superior thyroid vessels, and then transecting them inferiorly with harmonic scalpel. The fascia of the anterior and lateral gland was transected after blunt dissection and bluntly dissected laterally. Middle thyroid vein was also transected with harmonic scalpel. The fibrovascular attachments of the inferior pole of the thyroid were also transected with the harmonic scalpel. The gland was then rotated medially and, at this point, it was evident that there was a possible lymph node adjacent, lateral to the thyroid. This lymph node was carefully dissected away from apparent nearby parathyroid tissue and removed with harmonic scalpel. It was sent for separate pathologic analysis. The gland was then rotated medially and the recurrent laryngeal nerve was identified electrically in the tracheoesophageal groove. Subcapsular dissection continued with identification of apparent parathyroid tissue which was carefully dissected away from the thyroid gland and preserved. The gland continued to be elevated out of the tracheoesophageal groove with careful identification electrically of the recurrent laryngeal nerve, until the gland was completely freed from the trachea. The right thyroid and isthmus were then sent for pathologic analysis. Attention was then turned to the left thyroid, and thyroidectomy proceeded on the left as it had on the right, with the exception of there being no further evident lymphatic tissue. After completion of the thyroidectomy, palpation in the central compartment laterally did not reveal any evidence of lymphadenopathy, and the wound was copiously irrigated. The recurrent laryngeal nerve was noted to be electrically intact bilaterally, after completion of the procedure. A #7 round Byron-Corral drain was placed through a stab incision in the sternal notch and the strap muscles were re-approximated with interrupted 3-0 Vicryl sutures. The skin was then closed with two deep 4-0 Vicryl suture layers and a 5-0 Monocryl stitch. The patient tolerated the procedure well and she was awakened and taken to the recovery room in good condition. [facility] Evaluation note Diagnosis Thyroid cancer (HCC)- Primary Malignant neoplasm of thyroid gland [facility] Diagnosis Thyroid cancer (HCC)- Primary Malignant neoplasm of thyroid gland [facility] Diagnosis Missed menses Amenorrhea Absence of menstruation documented in this encounter [facility] Summary Purpose Family History No Family History Records FoundNo Family History Records FoundNo Family History Records Found Advance Directives No Advanced Directives Records FoundNo Advanced Directives Records FoundNo Advanced Directives Records Found Additional Source Comments Source Comments (unrecognize d section and content) In the event this informatio n is protected by the Federal Confidentiality of Alcohol and Drug Abuse Patient Records regulations: The Federal rules restrict any use of the information to criminally investigate or prosecute any alcohol or drug abuse patient.[facility] the event this information is protected by the Federal Confidentiality of Alcohol and Drug Abuse Patient Records regulations: The Federal rules restrict any use of the information to criminally investigate or prosecute any alcohol or drug abuse patient.[facility] [facility] the event this information is protected by the Federal Confidentiality of Alcohol and Drug Abuse Patient Records regulations: The Federal rules restrict any use of the information to criminally investigate or prosecute any alcohol or drug abuse patient.[facility]In the event this information is protected by the Federal Confidentiality of Alcohol and Drug Abuse Patient Records regulations: The Federal rules restrict any use of the information to criminally investigate or prosecute any alcohol or drug abuse patient.[facility]In the event this information is protected by the Federal Confidentiality of Alcohol and Drug Abuse Patient Records regulations: The Federal rules restrict any use of the information to criminally investigate or prosecute any alcohol or drug abuse patient.[facility]In the event this information is protected by the Federal Confidentiality of Alcohol and Drug Abuse Patient Records regulations: The Federal rules restrict any use of the information to criminally investigate or prosecute any alcohol or drug abuse patient.[facility]In the event this information is protected by the Federal Confidentiality of Alcohol and Drug Abuse Patient Records regulations: The Federal rules restrict any use of the information to criminally investigate or prosecute any alcohol or drug abuse patient.[facility] Reason for Visit (unrecogniz ed section and content) Reason Comments Phlebotomy Reason Comments Thyroid Cancer Follow up Reason Comments Missed Appointment Reason Comments Phone Visit Reason Comments Appointment Confirmation Reason Comments Amenorrhea Care Teams (unrecognized sec tion and content) Policy Specialist Relationship Specialty Start Date End Date Sara Medellin MD [address] [place] [address] PCP - General Family Medicine 04/11/22 Policy Specialist Relationship Specialty Start Date End Date Sara Medellin MD [address] [phone] PCP - General Family Medicine 04/11/22 Policy Specialist Relationship Specialty Start Date End Date Sara Medellin MD [address] [place] [phone] PCP - General Family Medicine 04/11/22 Policy Specialist Relationship Specialty Start Date End Date Sara Medellin MD PCP - General Family Medicine 04/11/22 Policy Specialist Relationship Specialty Start Date End Date Sara Medellin MD PCP - General Family Medicine 04/11/22 Policy Specialist Relationship Specialty Start Date End Date Sara Medellin MD [address] [place] [address] PCP - General Family Medicine 10/03/22 INFORMATION SOURCE (unrecogn ized section and content) DATE CREATED AUTHOR 09/02/2022 [facility] DATE CREATED AUTHOR AUTHOR'S ORGANIZ ATION 02/16/2023 [facility] DATE CREATED AUTHOR AUTHOR'S ORGANIZ ATION 06/14/2023 [facility] FOR RECORDS PERTAINING TO PATIENTS WHO ARE OR HAVE BEEN ENROLLED IN A CHEMICAL DEPENDENCY/SUBSTANCEABUSE PROGRAM, SOME INFORMATION MAY BE OMITTED. This clinical summary was aggregated from multiple sources. Caution should be exercised in using it in the provision of clinical care. This summary normalizes information from multiple sources, and as a consequence, information in this document may materially change the coding, format and clinical context of patient data. In addition, data may be omitted in some cases. CLINICAL DECISIONS SHOULD BE BASED ON THE PRIMARY CLINICAL RECORDS. [facility] provides no warranty or guarantee of the accuracy or completeness of information in this document.
[2023-06-20 14:42] LABS: Influenza Virus A Antigen Negative; Influenza Virus B Antigen Negative; Internal Control Within Normal Limits; SARS-CoV-2 Ag NEGATIVE (NEGATIVE)
== END 2023-06-20 14:53 | disposition home or self-care (01) ==
PROVIDERS: Emergency Provider Emergency Medicine; PCP Family Medicine
DX: R05.9 Cough, unspecified (principal); R06.02 Shortness of breath; F17.210 Nicotine dependence, cigarettes, uncomplicated; J45.909 Unspecified asthma, uncomplicated
CPT/HCPCS: 87804; 87811; 99283

== ENCOUNTER 2023-06-24 17:23 | Emergency (ER) | payer OTHER, SELFPAY ==
[2023-06-24 17:26] VITALS: BP 117/82; PULSE 79; RESP 22; TEMP 37.3; O2SAT 97; BMI 40.7
--- OUTSIDE RECORDS SUMMARY | 2023-06-24 17:28 | XMS_ITS | CCD ---
Author Name Unknown Address [address] [place] [address] Organization [facility] Care Team Providers Care Rougher Helper Name Role Phone Sara Medellin MD Primary Care Provider [phone] RAIZA, DR GUERRA Consulting Unavailable HOY ., [...] Unavailable HOY ., DR RUIZ Admitting Unavailable BROOKSHIRE, DR SHAILESH Clark Consulting Unavailable TIMMIS, DR [...] Unavailable Sara Medellin MD Primary Care Provider [phone] Arslan GARCIA Attending Unavailable HOY, SARA M [...] Unavailable Sara Medellin MD Primary Care Provider [phone] ACOSTA JAUREGUI Attending Unavailable Allergies Allergy Classification Reported Allergen(s) Allergy Type Date of Onset Reaction(s) Facility (10 sources) Cefaclor; Translations: [CEFACLOR] Drug Allergy 2 Hives, Shortness of Breath, Anaphylaxis [facility] (8 sources) Penicillins; Translations: [PENICILLINS] Drug Allergy 2 Hives, Shortness of Breath [facility] (2 sources) Cefaclor Drug Allergy [address] [facility] (2 sources) Penicillins Drug allergy (disorder) [address] [facility] (2 sources) Penicillin G sodium [...] on above: Take 1 capsule by mo [facility] once daily. 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 Orders have been placed in ANDalyze. Allergies As of Date: 02/14/2023 Noted Allergy [...] Status:Closed by OBI GENAO on 02/14/23 Normal [facility] CBC W Auto Differential pane l (Bld)on 02-01-2023 Basophils (Bld) [#/Vol] 0.04 10*3/uL Normal <0.11 [facility] Comment on above: Order Comment: Speci men Type: BLOOD SPECIMENOrdering Facility: [facility] Address: [address] [place] [address] Performed By: #### 5 7021-8 ####[facility] LABCLIA [id number] [place] [address] Basophils/100 WBC (Bld) 0.5 % Normal [facility] Comment on above: Order Comment: Speci men Type: BLOOD SPECIMENOrdering Facility: [facility] Address: [address] [place] [address] Performed By: #### 5 7021-8 ####[facility] LABCLIA [id number] [place] [address] Differential cell count method Nom (Bld) Auto Normal [facility] Comment on above: Order Comment: Speci men Type: BLOOD SPECIMENOrdering Facility: [facility] Address: [address] [place] [address] Performed By: #### 5 7021-8 ####[facility] LABCLIA [id number] [place] [address] Eosinophils (Bld) [#/Vol] 0.19 10*3/uL Normal <0.46 [facility] Comment on above: Order Comment: Speci men Type: BLOOD SPECIMENOrdering Facility: [facility] Address: [address] [place] [address] Performed By: #### 5 7021-8 ####[facility] LABCLIA [id number] [place] [address] Eosinophils/100 WBC (Bld) 2.5 % Normal [facility] Comment on above: Order Comment: Speci men Type: BLOOD SPECIMENOrdering Facility: [facility] Address: [address] [place] [address] Performed By: #### 5 7021-8 ####[facility] LABCLIA [id number] [place] [address] Erythrocyte distribution width (RBC) [Ratio] 13.3 % Normal 11.5-15.0 [facility] Comment on above: Order Comment: Speci men Type: BLOOD SPECIMENOrdering Facility: [facility] Address: [address] [place] [address] Performed By: #### 5 7021-8 ####[facility] LABCLIA [id number] [place] [address] Hematocrit (Bld) [Volume fraction] 47.7 % High 36.0-46.0 [facility] Comment on above: Order Comment: Speci men Type: BLOOD SPECIMENOrdering Facility: [facility] Address: [address] [place] [address] Performed By: #### 5 7021-8 ####[facility] LABCLIA [id number] [place] [address] Hemoglobin (Bld) [Mass/Vol] 15.6 g/dL High 11.5-15.5 [facility] Comment on above: Order Comment: Speci men Type: BLOOD SPECIMENOrdering Facility: [facility] Address: [address] [place] [address] Performed By: #### 5 7021-8 ####[facility] LABCLIA [id number] [place] [address] Immature granulocytes (Bld) [#/Vol] 0.03 10*3/uL Normal <0.10 [facility] Comment on above: Order Comment: Speci men Type: BLOOD SPECIMENOrdering Facility: [facility] Address: [address] [place] [address] Performed By: #### 5 7021-8 ####[facility] LABCLIA [id number] [place] [address] Immature granulocytes/100 WBC (Bld) 0.4 % Normal [facility] Comment on above: Order Comment: Speci men Type: BLOOD SPECIMENOrdering Facility: [facility] Address: [address] [place] [address] Performed By: #### 5 7021-8 ####[facility] LABCLIA [id number] [place] [address] Lymphocytes (Bld) [#/Vol] 2.30 10*3/uL Normal 1.00-4.00 [facility] Comment on above: Order Comment: Speci men Type: BLOOD SPECIMENOrdering Facility: [facility] Address: [address] [place] [address] Performed By: #### 5 7021-8 ####[facility] LABCLIA [id number] [place] [address] Lymphocytes/100 WBC (Bld) 29.7 % Normal [facility] Comment on above: Order Comment: Speci men Type: BLOOD SPECIMENOrdering Facility: [facility] Address: [address] [place] [address] Performed By: #### 5 7021-8 ####[facility] LABCLIA [id number] [place] [address] MCH (RBC) [Entitic mass] 28.8 pg Normal 26.0-34.0 [facility] Comment on above: Order Comment: Speci men Type: BLOOD SPECIMENOrdering Facility: [facility] Address: [address] [place] [address] Performed By: #### 5 7021-8 ####[facility] LABIA [id number] [place] [address] MCHC (RBC) [Mass/Vol] 32.7 g/dL Normal 30.5-36.0 [facility] Comment on above: Order Comment: Speci men Type: BLOOD SPECIMENOrdering Facility: [facility] Address: [address] [place] [address] Performed By: #### 5 7021-8 ####[facility] LABIA [id number] [place] [address] MCV (RBC) [Entitic vol] 88.2 fL Normal 80.0-100.0 [facility] Comment on above: Order Comment: Speci men Type: BLOOD SPECIMENOrdering Facility: [facility] Address: [address] [place] [address] Performed By: #### 5 7021-8 ####[facility] LABIA [id number] [place] [address] Monocytes (Bld) [#/Vol] 0.49 10*3/uL Normal <0.87 [facility] Comment on above: Order Comment: Speci men Type: BLOOD SPECIMENOrdering Facility: [facility] Address: [address] [place] [address] Performed By: #### 5 7021-8 ####[facility] LABCLIA [id number] [place] [address] Monocytes/100 WBC (Bld) 6.3 % Normal [facility] Comment on above: Order Comment: Speci men Type: BLOOD SPECIMENOrdering Facility: [facility] Address: [address] [place] [address] Performed By: #### 5 7021-8 ####[facility] LABCLIA [id number] [place] [address] Neutrophils (Bld) [#/Vol] 4.70 10*3/uL Normal 1.45-7.50 [facility] Comment on above: Order Comment: Speci men Type: BLOOD SPECIMENOrdering Facility: [facility] Address: [address] [place] [address] Performed By: #### 5 7021-8 ####[facility] LABCLIA [id number] [place] [address] Neutrophils/100 WBC (Bld) 60.6 % Normal [facility] Comment on above: Order Comment: Speci men Type: BLOOD SPECIMENOrdering Facility: [facility] Address: [address] [place] [address] Performed By: #### 5 7021-8 ####[facility] LABCLIA [id number] [place] [address] Nucleated RBC (Bld) [#/Vol] 10*3/uL Normal <0.01 [facility] Comment on above: Order Comment: Speci men Type: BLOOD SPECIMENOrdering Facility: [facility] Address: [address] [place] [address] Performed By: #### 5 7021-8 ####[facility] LABIA [id number] [place] [address] Nucleated RBC/100 WBC (Bld) [Ratio] 0.0 /100 WBC Normal [facility] Comment on above: Order Comment: Speci men Type: BLOOD SPECIMENOrdering Facility: [facility] Address: [address] [place] [address] Performed By: #### 5 7021-8 ####[facility] LABCLIA [id number] [place] [address] Platelet mean volume (Bld) [Entitic vol] 9.6 fL Normal 9.0-12.7 [facility] Comment on above: Order Comment: Speci men Type: BLOOD SPECIMENOrdering Facility: [facility] Address: [address] [place] [address] Performed By: #### 5 7021-8 ####[facility] LABCLIA [id number] [place] [address] Platelets (Bld) [#/Vol] 248 10*3/uL Normal 150-400 [facility] Comment on above: Order Comment: Speci men Type: BLOOD SPECIMENOrdering Facility: [facility] Address: [address] [place] [address] Performed By: #### 5 7021-8 ####[facility] LABCLIA [id number] [place] [address] RBC (Bld) [#/Vol] 5.41 10*6/uL High 3.90-5.20 [facility] Comment on above: Order Comment: Speci men Type: BLOOD SPECIMENOrdering Facility: [facility] Address: [address] [place] [address] Performed By: #### 5 7021-8 ####[facility] LABCLIA [id number] [place] [address] WBC (Bld) [#/Vol] 7.75 10*3/uL Normal 3.70-11.00 [facility] Comment on above: Order Comment: Speci men Type: BLOOD SPECIMENOrdering Facility: [facility] Address: [address] [place] [address] Performed By: #### 5 7021-8 ####[facility] LABCLIA [id number] [place] [address] T3 SerPl-mCncon 02-01-2023 T3 [Mass/Vol] 123 ng/dL Normal 79-165 [facility] Comment on above: Order Comment: Chel iverson Type: BLOOD SPECIMENOrdering Facility: [facility] Address: [address] [place] [address] Performed By: #### 3 026-2, 3053-6, 3016-3 ####[facility] LABCLIA [id number] [place] [address] [place] T4 SerPl-mCncon 02-01-2023 T4 [Mass/Vol] 11.9 ug/dL High 5.5-10.2 [facility] Comment on above: Order Comment: Chel iverson Type: BLOOD SPECIMENOrdering Facility: [facility] Address: [address] [place] [address] Performed By: #### 3 026-2, 3053-6, 3016-3 ####[facility] LABCLIA [id number] [place] [address] [place] THYROGLOBULIN BY MASS SPECTR OMETRYon 02-01-2023 THYROGLOBULIN, LC-MS/MS <0.5 Low 1.3-31.8 [facility] Comment on above: Order Comment: Chel iverson Type: BLOOD SPECIMENOrdering Facility: [facility] Address: [address] [place] [address] Result Comment: Results obtained with different test [...] developed and its performance characteristics determined by [employer]. It has not been cleared or approved by the US Food and Drug Administration. This test was performed in a CLIA certified laboratory and is intended for clinical purposes. Performed By: [employer] [address] [place] [address] [employer]: Prem Willis MD, PhD CLIA Number: [id number] Performed By: #### T [facility] ####[facility] LABORATORIESCLIA [id number] [place] [address] TSH [facility] 02-01-2023 TSH Qn 0.960 m[IU]/L Normal 0.270-4.200 [facility] Comment on above: Order Comment: Speci men Type: BLOOD SPECIMENOrdering Facility: [facility] Address: [address] [place] [address] Result Comment: If t he patient is , TSH reference range varies by gestational period: First Trimester (weeks 9-12): 0.180-2.990 mIU/L Second Trimester: 0.110-3.980 mIU/L Third Trimester: 0.480-4.710 mIU/L Suman Graf et al. A Practical Approach for the Verifications and Determination of Site- and Trimester-Specific Reference Intervals for Thyroid Function tests in . Thyroid, 2019:29:3:412-420. Rajesh E, et al. 2017 Guidelines of the [place] Thyroid Association for the Diagnosis and Management of Thyroid Disease during and the . Thyroid, 2017:27:3:315-389. Performed By: #### 3 026-2, 3053-6, 3016-3 ####[facility] LABCLIA [id number] [facility] [id number] [place] [address] [place] Emelina 11-09-2022 CNPN Telephone (NCCAP) AMANDA CORTEZ ([id number]) 1990 F Date Time Provider Department 11/09/22 Arslan GARCIA During your visit today, we recorded the following information about you: Obi Dunlap 11/09/2022 3:40 PM Signed Patient is called and scheduled. Arslan Garcia MD P [facility] Nurse [place]; Obi Genao 8 weeks with labs, orders [...] Status:Closed by OBI GENAO on 11/09/22 Normal [facility] T3 SerPl-mCncon 11-02-2022 T3 [Mass/Vol] 84 ng/dL Normal 79-165 [facility] Comment on above: Order Comment: Speci men Type: BLOOD SPECIMENOrdering Facility: [facility] Address: [address] [place] [address] Performed By: #### 3 026-2, 3016-3, 3053-6 ####[facility] LABCLIA [id number] [place] [id number] [facility] T4 SerPl-mCncon 11-02-2022 T4 [Mass/Vol] 8.3 ug/dL Normal 5.5-10.2 [facility] Comment on above: Order Comment: Speci men Type: BLOOD SPECIMENOrdering Facility: [facility] Address: [address] [place] [address] Performed By: #### 3 026-2, 3016-3, 6 ####[facility] LABIA [id number] [address] TSH SerPl-aCncon 11-02-2022 TSH Qn 23.200 m[IU]/L High 0.270-4.200 [facility] Comment on above: Order Comment: Speci kishor Type: BLOOD SPECIMENOrdering Facility: [facility] Address: [address] [place] [address] Result Comment: If t he patient is , TSH reference range varies by gestational period: First Trimester (weeks 9-12): 0.180-2.990 mIU/L Second Trimester: 0.110-3.980 mIU/L Third Trimester: 0.480-4.710 mIU/L Suman Graf et al. A Practical Approach for the Verifications and Determination of Site- and Trimester-Specific Reference Intervals for Thyroid Function tests in . Thyroid, 2019:29:3:412-420. Rajesh E, et al. 2017 Guidelines of the [place] Thyroid Association for the Diagnosis and Management of Thyroid Disease during and the . Thyroid, 2017:27:3:315-389. Performed By: #### 3 026-2, 3016-3, 305-6 ####[facility] LABIA [id number] [place] [id number] [facility] CNPMaru 09-26-2022 CNPN Telephone (CustomMadeA) AMANDA CORTEZ ([id number]) 1990 F Date Time Provider Department 09/26/22 [...] increased. [facility] Recommend [facility] October 12 appointment [...] (HCC) [C73] Order(s):TSH BLD [SQTSH] Order #: [id number] FUTURE T3 BLD [SQT3] Order #: [id number] FUTURE T4/THYROXINE BLOOD [SQT4] Order #: [id number] FUTURE levothyroxine (SYNTHROID) 150 mcg tabletTake 1 [...] by mouth once daily. Encounter Status:Closed by Arslna GARCIA on 09/26/22 Normal [facility] T4 SerPl-mCncon 09-14-2022 T4 [Mass/Vol] 4.5 ug/dL Low 5.5-10.2 [facility] Comment on above: Order Comment: Chel iverson Type: BLOOD SPECIMENOrdering Facility: [facility] Address: [address] [place], [place] [address] Performed By: #### 3 026-2, 3016-3 ####[facility] LABCLIA [id number] [address] [place] OF [facility] TSH SerPl-aCncon 09-14-2022 TSH Qn 89.200 m[IU]/L High 0.270-4.200 [facility] Comment on above: Order Comment: Chel men Type: BLOOD SPECIMENOrdering Facility: [facility] Address: [address] [place] [address] Result Comment: If t he patient is , TSH reference range varies by gestational period: First Trimester (weeks 9-12): 0.180-2.990 mIU/L Second Trimester: 0.110-3.980 mIU/L Third Trimester: 0.480-4.710 mIU/L Suman Graf et al. A Practical Approach for the Verifications and Determination of Site- and Trimester-Specific Reference Intervals for Thyroid Function tests in . Thyroid, 2019:29:3:412-420. Rajesh Holman, et al. 2017 Guidelines of the [place] Thyroid Association for the Diagnosis and Management of Thyroid Disease during and the . Thyroid, 2017:27:3:315-389. Performed By: #### 3 026-2, 3016-3 ####[facility] LABCLIA [id number] [place] [address] [place] PREG QUANT HCGon 08-17-2022 HCG QUANT 1 mIU/mL Normal [facility] Comment on above: Performed By: #### P REGQNT #### [facility] [address] [place] [address] [address] Prashant Kang HCG RANGE SEE BELOW Normal [facility] Comment on above: Result Comment: 5-50 0.2-1 WEEK 50-500 1-2 WEEKS 100-5,000 2-3 WEEKS 500-10,000 3-4 WEEKS 1,000-50,000 4-5 WEEKS 10,000-100,000 5-6 WEEKS 15,000-200,000 6-8 WEEKS 10,000-100,000 2-3 MONTHS Performed By: #### P REGQNT #### [facility] [address] [place] [address] [address] Prashant Tarango 07-17-2022 [facility] Telephone (RADTSA) AMANDA CORTEZ ([id number]) 1990 F Date Time Provider Department 07/17/22 [...] Status:Closed by DANNA PITTS on 08/01/22 Normal [facility] PREG QUANT HCGon 07-04-2022 HCG QUANT <1 Normal [facility] Comment on above: Performed By: #### P REGQNT #### [facility] [address] [place] [address] Dr. Prashant Kang HCG RANGE SEE BELOW Normal [facility] Comment on above: Result Comment: 5-50 0.2-1 WEEK 50-500 1-2 WEEKS 100-5,000 2-3 WEEKS 500-10,000 3-4 WEEKS 1,000-50,000 4-5 WEEKS 10,000-100,000 5-6 WEEKS 15,000-200,000 6-8 WEEKS 10,000-100,000 2-3 MONTHS Performed By: #### P REGQNT #### [facility] [address] [place] [address] Dr. Prashant Kang T4 SerPl-mCncon 07-03-2022 T4 [Mass/Vol] 7.0 ug/dL Normal 5.5-10.2 [facility] Comment on above: Order Comment: Chel iverson Type: BLOOD SPECIMENOrdering Facility: [facility] Address: [address] [place] [address] Performed By: #### 3 026-2, 3016-3 ####[facility] LABCLIA [id number] [address] THYROGLOBULIN BY MASS SPECTR [facility] 07-03-2022 THYROGLOBULIN, LC-MS/MS 1.6 ng/mL Normal 1.3-31.8 [facility] Comment on above: Order Comment: Chel iverson Type: BLOOD SPECIMENOrdering Facility: [facility] Address: [address] [place] [address] Result Comment: Results obtained with different test [...] developed and its performance characteristics determined by [employer]. It has not been cleared or approved by the US Food and Drug Administration. This test was performed in a CLIA certified laboratory and is intended for clinical purposes. Performed By: [employer] [address] [place] [address] [employer]: Prem Willis MD, PhD Performed By: #### T [facility] ####[facility] LABORATORIESCLIA [id number] [place] [address] TSH SerPl-aCncon 07-03-2022 TSH Qn 77.100 m[IU]/L High 0.270-4.200 [facility] Comment on above: Order Comment: Speci men Type: BLOOD SPECIMENOrdering Facility: [facility] Address: [address] [place] [address] Result Comment: If t he patient is , TSH reference range varies by gestational period: First Trimester (weeks 9-12): 0.180-2.990 mIU/L Second Trimester: 0.110-3.980 mIU/L Third Trimester: 0.480-4.710 mIU/L Suman Graf et al. A Practical Approach for the Verifications and Determination of Site- and Trimester-Specific Reference Intervals for Thyroid Function tests in . Thyroid, 2019:29:3:412-420. Rajesh Holman, et al. 2017 Guidelines of the [place] Thyroid Association for the Diagnosis and Management of Thyroid Disease during and the . Thyroid, 2017:27:3:315-389. Performed By: #### 3 026-2, 3016-3 ####[facility] LABCLIA [id number] [facility] [id number] [place] [address] [place] PREG QUANT HCGon 05-16-2022 HCG QUANT <[address] [facility] Comment on above: Performed By: #### P TT, PT #### [facility] [address] [place] [address] Dr. Prashant Kang HCG RANGE SEE BELOW Normal [facility] Comment on above: Result Comment: 5-50 0.2-1 WEEK 50-500 1-2 WEEKS 100-5,000 2-3 WEEKS 500-10,000 3-4 WEEKS 1,000-50,000 4-5 WEEKS 10,000-100,000 5-6 WEEKS 15,000-200,000 6-8 WEEKS 10,000-100,000 2-3 MONTHS Performed By: #### P TT, PT #### [facility] [address] [place] [address] Dr. Prashant Kang PREG QUANT HCGon 05-08-2022 HCG QUANT <1 Normal [facility] Comment on above: Performed By: #### P REGQNT #### [facility] [address] [place] [address] Dr. Prashant Kang HCG RANGE SEE BELOW Normal [facility] Comment on above: Result Comment: 5-50 0.2-1 WEEK 50-500 1-2 WEEKS 100-5,000 2-3 WEEKS 500-10,000 3-4 WEEKS 1,000-50,000 4-5 WEEKS 10,000-100,000 5-6 WEEKS 15,000-200,000 6-8 WEEKS 10,000-100,000 2-3 MONTHS Performed By: #### P REGQNT #### [facility] [address] [place] [address] Dr. Prashant Kang CNOVon 05-04-2022 CNOV Office Visit (RADTSA ) AMANDA CORTEZ ([id number]) 1990 F Date Time Provider Department 05/04/22 [...] right neck exploration on 03/07/2022, stage I [id number]. HPI: Patient returns after further work-up and [...] and right neck exploration on 03/07/2022, stage [id number]. Patient does have significant thyroglobulin antibody however [...] Tigre Sebastian (more content not included)... Normal [facility] Emelina 04-25-2022 [facility] CORTE[facility] ([id number]) 1990 F Date Time Provider Department 04/25/22 Arslan GARCIA During your visit today, we recorded the following information about you: Yfn Nelson 04/25/2022 9:40 AM Signed Called patient to reschedule, LMOV. MD Jessica Jenkins [facility] Nurse [place]; Yfn Nelson Unable to reach please reschedule [...] Encounter Status:Closed by YFN NELSON on 05/16/22 [facility] CNOVon 04-11-2022 CNOV Office Visit (RADTSA ) CORTEZAMANDA COYNE ([id number]) 1990 F Date Time Provider Department 04/11/22 [...] (None) Visit Notes: >> Danna Pitts RN [facility] Apr 11, 2022 10:50 AM Status: Signed [...] Encounter Status:Closed by DANNA PITTS on 04/11/22 [facility] Office Visit (RADTSA ) AMANDA CORTEZ ([id number]) 1990 F Date Time Provider Department 04/11/22 [...] right neck exploration on 03/07/2022, stage I [id number]. HPI: 32 year old female who presents [...] NEURO: no (more content not included)... Normal [facility] THYROGLOBULIN ABon Thyroglobulin Ab Qn 20.6 [IU]/mL High <14.4 [facility] Comment on above: Order Comment: Chel iverson Type: BLOOD SPECIMENOrdering Facility: [facility] Address: [address] [place] [address] Performed By: #### T BELLE ####[facility] [id number] [address] [place] THYROGLOBULIN BY MASS SPECTR OMETRY 04-11-2022 THYROGLOBULIN, LC-MS/MS 1.6 ng/mL Normal 1.3-31.8 [facility] Comment on above: Order Comment: Chel iverson Type: BLOOD SPECIMENOrdering Facility: [facility] Address: [address] [place] [address] Result Comment: Results obtained with different test [...] developed and its performance characteristics determined by [employer]. It has not been cleared or approved by the [place] Food and Drug Administration. This test was performed in a CLIA certified laboratory and is intended for clinical purposes. Performed By: [employer] [address] [place] [address] [employer]: Prem Willis MD, PhD Performed By: #### T [facility] ####[facility] [id number] [place] [address] CALCIUMon 03-08-2022 Calcium [Mass/Vol] 8.6 mg/dL Normal 8.5-10.1 [facility] Comment on above: Performed By: #### C A #### [facility] [address] [place] [address] Dr. Prashant Kang CALCIUMon 03-07-2022 Calcium [Mass/Vol] 8.4 mg/dL Critically low 8.5-10.1 [facility] Comment on above: Performed By: #### C A #### [facility] [address] [place] [address] Dr. Prashant Kang PREG HCG QUALon 03-07-2022 , QUAL Negative Normal NEGATIVE [facility] Comment on above: Performed By: #### P REG #### [facility] [address] [place] [address] Dr. Prashant Kang Covid-19 PCR (CVDTBH)on SARS-CoV-2 (COVID-19) RNA DENEEN+probe Ql (Unsp spec) Not detected Normal NOT DETECTED [facility] Comment on above: Result Comment: This test is not yet approved or cleared by the [place] FDA. When there are no FDA-approved or cleared tests available, and other criteria are met, FDA can make tests available under an emergency access mechanism called an Emergency Use Authorization (EUA). The EUA for this test is supported by the [place] of Health and Human Service's (HHS's) declaration [...] SARS-CoV-2. Performed By: #### C VDTB #### [facility] [address] [place] [address] Dr. Prashant Kang CALCIUMon 02-24-2022 Calcium [Mass/Vol] 8.8 mg/dL Normal 8.5-10.1 [facility] Comment on above: Performed By: #### P TT, PT #### [facility] [address] [place] [address] Dr. Prashant Kang CBC AUTO DIFFon 02-24-2022 BASO # 0.0 103/ul Normal 0.0-0.1 [facility] Comment on above: Performed By: #### P TT, PT #### [facility] [address] [place] [address] Dr. Prashant Kagn Basophils/100 WBC (Bld) 0.3 % Normal 0.2-2.0 [facility] Comment on above: Performed By: #### P TT, PT #### [facility] [address] [place] [address] Dr. Prashant Kang EO # 0.1 103/ul Normal 0.0-0.7 [facility] Comment on above: Performed By: #### P TT, PT #### [facility] [address] [place] [address] Dr. Prashant Kang Eosinophils/100 WBC (Bld) 1.5 % Normal 0.9-7.0 [facility] Comment on above: Performed By: #### P TT, PT #### [facility] [address] [place] [address] Dr. Prashant Kang Erythrocyte distribution width (RBC) [Ratio] 13.8 % Normal 11.0-15.0 [facility] Comment on above: Performed By: #### P TT, PT #### [facility] [address] [place] [address] Dr. Prashant Kang Hematocrit (Bld) [Volume fraction] 45.5 % Normal 36.0-48.[address] [facility] Comment on above: Performed By: #### P TT, PT #### [facility] [address] [place] [address] Dr. Prashant Kang Hemoglobin (Bld) [Mass/Vol] 14.6 g/dL Normal 12.0-16.[address] [facility] Comment on above: Performed By: #### P TT, PT #### [facility] [address] [place] [address] Dr. Prashant Kang IG # 0.02 10e3/ul Normal 0.00-0.03 [facility] Comment on above: Performed By: #### P TT, PT #### [facility] [address] [place] [address] Dr. Prashant Kang IG % 0.3 % Normal 0.0-0.5 [facility] Comment on above: Performed By: #### P TT, PT #### [facility] [address] [place] [address] Dr. Prashant Kang LYMPH # 1.6 103/ul Normal 1.2-3.[address] [facility] Comment on above: Performed By: #### P TT, PT #### [facility] [address] [place] [address] Dr. Prashant Kang Lymphocytes/100 WBC (Bld) 23.5 % Normal 20.5-60.[address] [facility] Comment on above: Performed By: #### P TT, PT #### [facility] [address] [place] [address] Dr. Prashant Kang MANUAL DIFF REQ NO Normal [facility] Comment on above: Performed By: #### P TT, PT #### [facility] [address] [place] [address] Dr. Prashant Kang MCH (RBC) [Entitic mass] 26.5 pg Critically low 26.7-34.[address] [facility] Comment on above: Performed By: #### P TT, PT #### [facility] [address] [place] [address] Dr. Prashant Kang MCHC (RBC) [Mass/Vol] 32.1 g/dL Normal 29.9-35.[address] [facility] Comment on above: Performed By: #### P TT, PT #### [facility] [address] [place] [address] Dr. Prashant Kang MCV (RBC) [Entitic vol] 82.7 fL Normal 81.0-99.[address] [facility] Comment on above: Performed By: #### P TT, PT #### [facility] [address] [place] [address] Dr. Prashant Kang MONO # 0.5 103/ul Normal 0.3-0.[address] [facility] Comment on above: Performed By: #### P TT, PT #### [facility] [address] [place] [address] Dr. Prashant Kang Monocytes/100 WBC (Bld) 7.5 % Normal 1.7-12.[address] [facility] Comment on above: Performed By: #### P TT, PT #### [facility] [address] [place] [address] Dr. Prashant Kang NEUT # 4.6 103/ul Normal 1.4-6.[address] [facility] Comment on above: Performed By: #### P TT, PT #### [facility] [address] [place] [address] Dr. Prashant Kang Neutrophils/100 WBC (Bld) 66.9 % Normal 43.0-75.[address] [facility] Comment on above: Performed By: #### P TT, PT #### [facility] [address] [place] [address] Dr. Prashant Kang Platelet mean volume (Bld) [Entitic vol] 9.9 fL Normal 9.5-13.[address] [facility] Comment on above: Performed By: #### P TT, PT #### [facility] [address] [place] [address] Dr. Prashant Kang PLT 239 103/ul Normal 150-[address] [facility] Comment on above: Performed By: #### P TT, PT #### [facility] [address] [address] [address] Prashant Kang RBC 5.50 106/ul Critically high 4.20-5.40 [facility] Comment on above: Performed By: #### P TT, PT #### [facility] [address] [place] [address] Dr. Prashant Kang WBC 6.8 103/ul Normal 4.0-11.[address] [facility] Comment on above: Performed By: #### P TT, PT #### [facility] [address] [place] [address] Dr. Prashant Kang MAGNESIUMon 02-24-2022 Magnesium [Mass/Vol] 2.0 mg/dL Normal 1.8-2.[address] [facility] Comment on above: Performed By: #### P TT, PT #### [facility] [address] [place] [address] Dr. Prashant Kang PHOSPHORUSon 02-24-2022 Phosphate [Mass/Vol] 3.3 mg/dL Normal 2.6-4.[address] [facility] Comment on above: Performed By: #### P TT, PT #### [facility] [address] [place] [address] Dr. Prashant Kang PROTIMEon 02-24-2022 INR Coag (PPP) [Relative time] 1.01 {INR} Normal [facility] Comment on above: Performed By: #### P TT, PT #### [facility] [address] [place] [address] Dr. Prashant Kang INR GUIDELINES SEE BELOW Normal [facility] Comment on above: Result Comment: SALIMA RED INR: 2.0 - 3.0 CONDITIONS NOT LISTED BELOW 2.5 - 3.5 FOR PROSTHETIC HEART VALVE REPLACEMENT 2.5 - 3.5 RECURRENT THROMBOSIS Performed By: #### P TT, PT #### [facility] [address], [place] [address] Dr. Prashant Kang PT Coag (PPP) [Time] 10.9 s Normal 9.0-11.[address] [facility] Comment on above: Performed By: #### P TT, PT #### [facility] [address], [place] [address] Dr. Prashant Kang PTTon 02-24-2022 aPTT Coag (Bld) [Time] 28.9 s Normal 22.3-36.[address] [facility] Comment on above: Performed By: #### P TT, PT #### [facility] [address], [place] [address] Dr. Prashant Kang TSHon 02-24-2022 TSH 1.163 uIU/mL Normal 0.358-3.[address] [facility] Comment on above: Performed By: #### P TT, PT #### [facility] [address] [place] [address] Dr. Prashant Kang US THYROID FN ASP BXon 02-09 US THYROID FN ASP BX Begin Addendum #1 COLLECTED DATE/TIME: 02/03/2022 11:36 EDT Final Diagnosis Report for [facility] [place] (A/B) THYROID ISTHMUS NODULE, FINE NEEDLE [...] 2. Pathology results are pending. Normal [facility] CT NECK ST W CONon 2 [...] by: SHAILESH EMERY Date: 2022-01-20 13:05 Normal [facility] US THYROIDon 01-20-2022 US THYROID EXAMINATION: [...] isthmus nodule. Consider fine-needle aspiration TI-RADS: The [employer] TI-RADS committee's white paper recommendations for thyroid lesions classified as TR4 (moderately suspicious) are listed below: > 1.0 cm. Follow-up ultrasound in 1, 2, 3, and 5 years. > 1.5 cm. FNA. J. Am More Radiol 2017;[id number]. Electronically authenticated by: SHAILESH EMERY Date: 2022-01-20 21:46 Normal [facility] CBC AUTO DIFFon 01-08-2022 BASO # 0.0 103/ul Normal 0.0-0.[address] [facility] Comment on above: Performed By: #### P TT, PT #### [facility] [address] [place] [address] Dr. Prahsant Kang Basophils/100 WBC (Bld) 0.4 % Normal 0.2-2.[address] [facility] Comment on above: Performed By: #### P TT, PT #### [facility] [address] [place] [address] Dr. Prashant Kang EO # 0.2 103/ul Normal 0.0-0.[address] [facility] Comment on above: Performed By: #### P TT, PT #### [facility] [address] [place] [address] Dr. Prashant Kang Eosinophils/100 WBC (Bld) 3.4 % Normal 0.9-7.[address] [facility] Comment on above: Performed By: #### P TT, PT #### [facility] [address] [place] [address] Dr. Prashant Kang Erythrocyte distribution width (RBC) [Ratio] 14.6 % Normal 11.0-15.[address] [facility] Comment on above: Performed By: #### P TT, PT #### [facility] [address] [place] [address] Dr. Prashant Kang Hematocrit (Bld) [Volume fraction] 42.9 % Normal 36.0-48.[address] [facility] Comment on above: Performed By: #### P TT, PT #### [facility] [address] [place] [address] Dr. Prashant Kang Hemoglobin (Bld) [Mass/Vol] 13.4 g/dL Normal 12.0-16.[address] [facility] Comment on above: Performed By: #### P TT, PT #### [facility] [address] [place] [address] Dr. Prashant Kang IG # 0.02 10e3/ul Normal 0.00-0.[address] [facility] Comment on above: Performed By: #### P TT, PT #### [facility] [address] [address] [address] Prashant Kang IG % 0.3 % Normal 0.0-0.5 [facility] Comment on above: Performed By: #### P TT, PT #### [facility] [address] [address] [address] Prashant Kang LYMPH # 2.0 103/ul Normal 1.2-3.[address] [facility] Comment on above: Performed By: #### P TT, PT #### [facility] [address] [address] [address] Prashant Kang Lymphocytes/100 WBC (Bld) 29.7 % Normal 20.5-60.0 [facility] Comment on above: Performed By: #### P TT, PT #### [facility] [address] [place] [address] Dr. Prashant Kang MANUAL DIFF REQ NO Normal [facility] Comment on above: Performed By: #### P TT, PT #### [facility] [address] [place] [address] Dr. Prashant Kang MCH (RBC) [Entitic mass] 26.3 pg Critically low 26.7-34.0 [facility] Comment on above: Performed By: #### P TT, PT #### [facility] [address] [place] [address] Dr. Prashant Kang MCHC (RBC) [Mass/Vol] 31.2 g/dL Normal 29.9-35.2 [facility] Comment on above: Performed By: #### P TT, PT #### [facility] [address] [place] [address] Dr. Prashant Kang MCV (RBC) [Entitic vol] 84.1 fL Normal 81.0-99.0 [facility] Comment on above: Performed By: #### P TT, PT #### [facility] [address] [address] [address] Prashant Kang MONO # 0.6 103/ul Normal 0.3-0.[address] [facility] Comment on above: Performed By: #### P TT, PT #### [facility] [address] [place] [address] Dr. Prashant Kang Monocytes/100 WBC (Bld) 8.7 % Normal 1.7-12.[address] [facility] Comment on above: Performed By: #### P TT, PT #### [facility] [address] [place] [address] Dr. Prashant Kang NEUT # 3.9 103/ul Normal 1.4-6.[address] [facility] Comment on above: Performed By: #### P TT, PT #### [facility] [address] [place] [address] Dr. Prashant Kang Neutrophils/100 WBC (Bld) 57.5 % Normal 43.0-75.[address] [facility] Comment on above: Performed By: #### P TT, PT #### [facility] [address] [place] [address] Dr. Prashant Kang Platelet mean volume (Bld) [Entitic vol] 9.9 fL Normal 9.5-13.[address] [facility] Comment on above: Performed By: #### P TT, PT #### [facility] [address] [place] [address] Dr. Prashant Kang PLT 241 103/ul Normal 150-[address] [facility] Comment on above: Performed By: #### P TT, PT #### [facility] [address] [place] [address] Dr. Prashant Kang RBC 5.10 106/ul Normal 4.20-5.[address] [facility] Comment on above: Performed By: #### P TT, PT #### [facility] [address] [place] [address] Dr. Prashant Kang WBC 6.8 103/ul Normal 4.0-11.[address] [facility] Comment on above: Performed By: #### P TT, PT #### [facility] [address] [place] [address] Dr. Prashant Kang GROUP A STREP CULTUREon 12-29 S. pyogenes Ag Ql (Unsp spec) Culture Observations: NEGATIVE FOR GROUP A STREPTOCOCCUS. Normal [facility] Comment on above: Performed By: #### P TT, PT #### [facility] [address] [place] [address] Dr. Prashant Kang PROF 14(COMP METB)on 022 Albumin [Mass/Vol] 3.6 g/dL Normal 3.4-5.0 [facility] Comment on above: Performed By: #### C MP #### [facility] [address] [place] [address] Dr. Prashant Kang Albumin/Globulin [Mass ratio] 0.8 {ratio} Normal [facility] Comment on above: Performed By: #### C MP #### [facility] [address] [place] [address] Dr. Prashant Kang ALP [Catalytic activity/Vol] 74 U/L Normal 46-116 [facility] Comment on above: Performed By: #### C MP #### [facility] [address] [place] [address] Dr. Prashant Kang ALT [Catalytic activity/Vol] 40 U/L Normal 14-59 [facility] Comment on above: Performed By: #### C MP #### [facility] [address] [place] [address] Dr. Prashant Kang Anion gap [Moles/Vol] 14.0 mmol/L Normal [facility] Comment on above: Performed By: #### C MP #### [facility] [address] [place] [address] Dr. Prashant Kang AST [Catalytic activity/Vol] 31 U/L Normal 15-37 [facility] Comment on above: Performed By: #### C MP #### [facility] [address] [place] [address] Dr. Prashant Kang Bilirubin [Mass/Vol] 0.4 mg/dL Normal 0.2-1.0 [facility] Comment on above: Performed By: #### C MP #### [facility] [address] [place] [address] Dr. Prashant Kang Calcium [Mass/Vol] 8.8 mg/dL Normal 8.5-10.1 [facility] Comment on above: Performed By: #### C MP #### [facility] [address] [address] [address] Prashant Kang Chloride [Moles/Vol] 105 mmol/L Normal 98-107 [facility] Comment on above: Performed By: #### C MP #### [facility] [address] [address] [address] Prashant Kang CO2 [Moles/Vol] 26.6 mmol/L Normal 21.0-32.0 [facility] Comment on above: Performed By: #### C MP #### [facility] [address] [address] [address] Prashant Kang Creatinine [Mass/Vol] 0.80 mg/dL Normal 0.55-1.02 [facility] Comment on above: Performed By: #### C MP #### [facility] [address] [place] [address] Dr. Prashant Kang EGFR-AF HONDURAN >60 Normal >=60 [facility] Comment on above: Performed By: #### C MP #### [facility] [address] [address] [address] Prashant Kang EGFR-NON AF HONDURAN >60 Normal >=60 [facility] Comment on above: Performed By: #### C MP #### [facility] [address] [address] [address] Prashant Kang Globulin (S) [Mass/Vol] 4.3 g/dL Normal [facility] Comment on above: Performed By: #### C MP #### [facility] [address] [address] [address] Prashant Kang Glucose [Mass/Vol] 101 mg/dL Normal 74-106 [facility] Comment on above: Performed By: #### C MP #### [facility] [address] [address] [address] Prashant Kang Potassium [Moles/Vol] 4.6 mmol/L Normal 3.5-5.1 [facility] Comment on above: Performed By: #### C MP #### [facility] [address] [address] [address] Prashant Kang Protein [Mass/Vol] 7.9 g/dL Normal 6.4-8.2 [facility] Comment on above: Performed By: #### C MP #### [facility] [address] [address] [address] Prashant Kang Sodium [Moles/Vol] 141 mmol/L Normal 136-145 [facility] Comment on above: Performed By: #### C MP #### [facility] [address] [address] [address] Prashant Kang Urea nitrogen [Mass/Vol] 11.0 mg/dL Normal 7.0-18.0 [facility] Comment on above: Performed By: #### C MP #### [facility] [address] [address] [address] Prashant Kang Urea nitrogen/Creatinine [Mass ratio] 13.8 mg/mg Normal [facility] Comment on above: Performed By: #### C MP #### [facility] [address] [address] [address] Prashant Kang STREPT SCREENon 01-08-2022 STREP SCREEN A Negative Normal NEGATIVE [facility] Comment on above: Performed By: #### P TT, PT #### [facility] [address] [address] [address] Prashant Kang XR NECK SOFT TISSUEon [...] MIKE SAID Date: 2022-01-08 04:[address] [facility] Covid-19 PCR (CVDTB)on SARS-CoV-2 (COVID-19) RNA DENEEN+probe Ql (Unsp spec) Not detected Normal NOT DETECTED [facility] Comment on above: Result Comment: This test is not yet approved or cleared by the [place] FDA. When there are no FDA-approved or cleared tests available, and other criteria are met, FDA can make tests available under an emergency access mechanism called an Emergency Use Authorization (EUA). The EUA for this test is supported by the [place] of Health and Human Service's (HHS's) declaration [...] Performed By: #### P TT, PT #### [facility] [address] [place] [address] Dr. Prashant Kang Vital Signs Date Time Vital Sign Value Performing Clinician Moniquei litmirella 06-12-2023 13:54-0500 Body mass index (BMI) [Ratio] 40.6 kg/m2 [employer] Work Phone: [facility] 06-12-2023 13:54-0500 Body weight 100.7 kg [employer] Work Phone: [facility] 06-12-2023 13:54-0500 Diastolic blood pressure 74 mm[Hg] [employer] Work Phone: [facility] 06-12-2023 13:54-0500 Systolic blood pressure 118 mm[Hg] [employer] Work Phone: [facility] 05-04-2022 09:40-0500 Body temperature 97.2 [degF] JONNY Garcia MD Work Phone: [facility] 05-04-2022 09:40-0500 Body weight 88.81 kg JONNY Garcia MD Work Phone: [facility] 05-04-2022 09:40-0500 Diastolic blood pressure 73 mm[Hg] JONNY Garcia MD Work Phone: [facility] 05-04-2022 09:40-0500 Heart rate 67 /min JONNY Garcia MD Work Phone: [facility] 05-04-2022 09:40-0500 Respiratory rate 16 /min JONNY Garcia MD Work Phone: [facility] 05-04-2022 09:40-0500 SaO2% (BldA) [Mass fraction] 100 % JONNY Garcia MD Work Phone: [facility] 05-04-2022 09:40-0500 Systolic blood pressure 113 mm[Hg] JONNY Garcia MD Work Phone: [facility] Encounters Encounter Date Encounter Type Care Provider Facility Start: 06-12-2023 End: 06-12-2023 ambulatory ACOSTA SHANIA Not Available Start: 06-12-2023 End: 06-12-2023 Office outpatient visit 15 minutes Acosta Shania DO Work Phone: [facility] Comment on above: Missed menses; Amenorrhea Start: 02-14-2023 Telephone encounter Arslan Garcia MD Work Phone: [facility] Comment on above: Appointment Confirma tion Start: 02-08-2023 End: 02-09-2023 ambulatory Arslan HERIP CECELIA Facility:[facility] Start: 02-01-2023 End: 02-01-2023 ambulatory SARA MEDELLIN Facility:[facility] Start: 11-09-2022 Telephone encounter [facility]slan Garcia [facility] Comment on above: Appointment Confirma tion Start: 11-09-2022 End: 11-10-2022 ambulatory Arslan FELIPE CECELIA Facility:[facility] Start: 11-02-2022 End: 11-02-2022 ambulatory SARA MEDELLIN Facility:[facility] Start: 09-14-2022 End: 09-14-2022 ambulatory SARA MEDELLIN Facility:[facility] Start: 09-01-[address] SARA MEDELLIN . Facili ty:[facility] Start: 08-23-2022 End: 08-23-2022 ambulatory DHRUV MCDONALD Facility:[facility] Start: 08-17-2022 End: 08-27-[address] ACOSTA JAUREGUI . Facility:[facility] Start: 08-06-2022 End: 08-06-2022 ambulatory DHRUV MCDONALD Facility:[facility] Start: 07-18-2022 End: 07-18-2022 ambulatory Arslan GARCIA Facility:[facility] Start: 07-17-2022 Telephone encounter Arslan Garcia MD Work Phone: Radiation Oncology Comment on above: Phone Visit Start: 07-04-2022 End: 07-28-[address] ACOSTA JAUREGUI . Facility: Start: 07-03-2022 End: 07-03-2022 ambulatory SARA MEDELLIN Facility:[facility] Start: 05-08-2022 End: 05-30-[address] ACOSTA JAUREGUI . Facility: Start: 05-04-2022 End: 05-04-2022 ambulatory Arslan GARCIA Facility:[facility] Start: 05-04-2022 End: 05-04-2022 Patient encounter procedure Arslan Garcia MD Work Phone: Radiation Oncology Comment on above: Thyroid cancer (HCC) (Primary Dx) Start: 04-25-2022 Telephone encounter Arslan Garcia MD Work Phone: Cancer Appts Comment on above: Missed Appointment Start: 04-22-2022 End: 04-25-2022 ambulatory Arslan GARCIA Facility:[facility] Start: 04-20-2022 Patient encounter procedure [facility] Provider [facility] Department Start: 04-11-2022 End: 04-11-2022 ambulatory SARA MEDELLIN Facility:[facility] Start: 04-11-2022 End: 04-11-2022 Patient encounter procedure Lab/[place] [facility] Work Phone: Radiation Oncology Comment on above: Thyroid cancer (HCC) (Primary Dx) Start: 03-09-2022 Encounter for preprocedural laboratory examination DR CHARLIE EASTMAN [facility] Start: 03-07-2022 End: 03-08-[address] [...] PM EST Ancillary Procedure [facility] [address] [place] [address] [place] [id number] [facility] Start: 06-12-2023 End: 06-12-2024 US for US PELVIS-TRANSVAG IF INDICATED Imaging Routine Amenorrhea Expected: 06/12/2023 (Approximate), Expires: 06/12/2024 [facility] Comment on above: Expected: 06/12/2023 (Approximate), Expires: 06/12/2024 Start: 12-29-2022 Influenza vaccination [facility] Start: 07-02-2022 End: 09-01-2022 THYROGLOBULIN BY MASS SPECTROMETRY THYROGLOBULIN BY MASS SPECTROMETRY Lab Routine Thyroid cancer (HCC) Expected: 07/02/2022, Expires: 09/01/2022 [facility] Work Phone: Comment on above: Expected: 07/02/2022 , Expires: 09/01/2022 Start: 07-02-2022 End: 09-01-2022 Thyrotropin [Units/volume] in Serum or Plasma TSH BLD Lab Routine Thyroid cancer (HCC) Expected: 07/02/2022, Expires: 09/01/2022 [facility] Work Phone: Comment on above: Expected: 07/02/2022 , Expires: 09/01/2022 Start: 07-02-2022 End: 09-01-2022 Thyroxine (T4) [Mass/volume] in Serum or Plasma T4/THYROXINE BLOOD Lab Routine Thyroid cancer (HCC) Expected: 07/02/2022, Expires: 09/01/2022 [facility] Work Phone: Comment on above: Expected: 07/02/2022 , Expires: 09/01/2022 Start: 04-30-2022 DEPRESSION ASSESSMENT DEPRESSION ASS [facility] Start: 2022 HPV TESTING HPV TESTING [facility] Start: 12-29-2021 Influenza vaccination INFLUENZA (#1) [facility] Start: 04-30-2021 DEPRESSION ASSESSMENT DEPRESSION ASS [facility] Start: 2013 PAP TESTING PAP TESTING [facility] Start: 2011 Urine microalbumin profile [facility] Start: 2010 HEPATITIS C SCREENING HEPATITIS C SC REENING [facility] Start: 2010 HIV SCREENING HIV SCREENING [facility] Start: 1998 PNEUMOCOCCAL (1 - PCV) PNEUMOCOCCAL (1 - PCV) [facility] Start: 1998 Pneumococcal vaccination Pneum ococcal Vaccine (1 - PCV) [facility] Start: 1992 COVID-19 VACCINE (#1) COVID-19 VACCI NE (#1) [facility] Start: 1992 HEPATITIS B (1 of 3 - 3-dose series) HEPATITIS B (1 of 3 - 3-dose series) [facility] Start: 1992 Hepatitis B Vaccine (1 of 3 - 3-dose series) Hepatitis B Vaccine (1 of 3 - 3-dose series) [facility] CBC W Auto Different ial panel - Blood CBC and differential Lab Routine Amenorrhea Ordered: 06/12/2023 [facility] Comment on above: Ordered: 06/12/2023 hCG, quantitative, hCG, quantitative, Lab Routine Amenorrhea Ordered: 06/12/2023 [facility] Comment on above: Ordered: 06/12/2023 Hemoglobin A1c measurement Hemoglobin A1c Lab Routine Amenorrhea Ordered: 06/12/2023 [facility] Comment on above: Ordered: 06/12/2023 Prolactin Prolactin Lab Ro utine Amenorrhea Ordered: 06/12/2023 [facility] Comment on above: Ordered: 06/12/2023 Thyrotropin [Units/volume] in Serum or Plasma TSH Lab Routine Amenorrhea Ordered: 06/12/2023 [facility] Work Phone: Comment on above: Ordered: 06/12/2023 [facility] Payers Date Payer Category Payer Medicaid [id number] 1990 Unknown [id number] 2.16.84 [id number] 1992 Unknown [id number] 2.16.84 0.1.020026.3.579.2.593 1992 Unknown [id number] 2.16.84 0.1.439431.3.579.2.593 1992 Unknown [id number] 2.16.84 0.1.459732.3.579.2.593 1992 Unknown [id number] 2.16.84 0.1.985386.3.579.2.593 1992 Unknown [id number] 2.16.84 0.1.449648.3.579.2.593 1992 Unknown [id number] 2.16.84 0.1.753267.3.579.2.593 1992 Unknown [id number] 2.16.84 0.1.424487.3.579.2.593 1992 Unknown [id number] 2.16.84 0.1.901304.3.579.2.593 1992 Unknown [id number] 2.16.84 0.1.905095.3.579.2.593 1992 Unknown [id number] 2.16.84 0.1.446017.3.579.2.593 1992 Unknown [id number] 2.16.84 0.1.740395.3.579.2.593 1992 Unknown [id number] 2.16.84 0.1.067355.3.579.2.593 1992 Unknown [id number] 2.16.84 0.1.485250.3.579.2.593 1992 Unknown [id number] 2.16.84 0.1.651332.3.579.2.593 1992 Unknown [id number] 2.16.84 0.1.604063.3.579.2.1259 1959 Unknown [id number] Social History Date Type Detail Facility Start: 04-11-2022 End: 09-23-2022 Tobacco smoking status NHIS Smokes tobacco daily [facility] History of tobacco use Cigarette Smoker [facility] Start: 04-11-2022 End: 01-03-2023 Cigarettes smoked current (pack per day) - Reported 1 [facility] Start: 04-11-2022 End: 09-23-2022 Tobacco use and exposure Smokeless tobacco non-user [facility] Start: 04-11-2022 End: 06-12-2023 Alcohol intake Current drinker of alcohol (finding) [facility] Start: 04-11-2022 Alcohol Comment socially [facility] Start: 1990 Sex Assigned At Not on file [facility] Start: 05-04-2022 End: 01-03-2023 Tobacco use panel [facility] Adult Depression Screening Assessment 0 [facility] Start: 10-03-2022 Alcohol Comment caffeine intak e: 1-2 cups per day [facility] Start: 1990 Sex Assigned At Female N [facility] Start: 10-04-2022 Gender identity Identifies as female gender (finding) [facility] Clinical Notes 03-07-2022 to 06-12-2023 MAXIMILIAN Lombardo - 06/12/2023 1:50 PM ESTTelephone Encounter - Kerntoñito Dunlap Obi - 02/14/2023 9:52 AM EDTTelephone [...] Acosta Jauregui DO documented in this encounter [facility] 02-14-2023 Miscellaneous Notes Images from the original note were not included. Patient is scheduled for appointments Arslan Garcia MD [facility] Govind Wade; Obi Genao 4 months with labs. Orders have been placed in [employer]. documented in this encounter [facility] 02-08-2023 Note HNO ID: [id number] Author: Arslan Garcia MD Service: ? Author [...] Time Spent: 6 minutes Arslan Garcia MD [facility] 11-09-2022 Miscellaneous Notes Images from the original note were not included. Patient is called and scheduled. Arslan Garcia MD [facility] [place]; Obi Genao 8 weeks with labs, orders placed, thank you documented in this encounter [facility] 11-09-2022 Note HNO ID: [id number] Author: Arslan Garcia MD Service: ? Author [...] Time Spent: 6 minutes Arslan Garcia MD [facility] 07-18-2022 Note HNO ID: [id number] Author: Arslan Garcia MD Service: ? Author [...] Time Spent: 6 minutes Arslan Garcia MD [facility] 07-17-2022 Miscellaneous Notes Appointment has been changed to phone appt. Yfn Nelson Pt called in requesting to be switched to a phone visit tomorrow. Her kids are on spring break and a couple of them are sick. Labs have been done and resulted. PSS- please change to phone visit for tomorrow. Danna Pitts, RN documented in this encounter [facility] 05-04-2022 Note HNO ID: [id number] Author: Arslan Garcia MD Service: ? Author Type: Physician Type: Progress Notes Filed: 05/04/2022 9:58 AM Note Text: Radiation Oncology - FollowupNote PATIENT NAME: Amanda Cortez PATIENT : 1990 DIAGNOSIS: Thyroid cancer, classic papillary thyroid carcinoma, status post total thyroidectomy and right neck exploration on 03/07/2022, stage I [id number]. HPI: Patient returns after further work-up and [...] and right neck exploration on 03/07/2022, stage [id number]. Patient does have significant thyroglobulin antibody however [...] No referring provider defined for this encounter. [facility] 05-04-2022 History of Present illness Narrative Radiation Oncology - FollowupNote PATIENT NAME: Amanda Cortez PATIENT : 1990 DIAGNOSIS: Thyroid cancer, classic papillary thyroid carcinoma, status post total thyroidectomy and right neck exploration on 03/07/2022, stage I [id number]. HPI: Patient returns after further work-up and [...] and right neck exploration on 03/07/2022, stage [id number]. Patient does have significant thyroglobulin antibody however [...] for this encounter. documented in this encounter [facility] 04-25-2022 Miscellaneous Notes Patient had been rescheduled. Yfn Nelson Images from the original note were not included. Called patient to reschedule, LMOV. MD Jessica Jenkins Nurse Pool; Yfn Nelson Unable to reach please reschedule documented in this encounter [facility] 04-11-2022 Note HNO ID: [id number] Author: Arslan Garcia MD Service: ? Author [...] right neck exploration on 03/07/2022, stage I [id number]. HPI: 32 year old female who presents [...] No acute d (more content not included)... [facility] 04-11-2022 Nurse Note Amanda Cortez presents in office today for: Lab Draw during Office Visit . Ordering Provider: Felipe Garcia M.D. Test (s) ordered: TG Method for obtaining blood: Phlebotomy was performed, accessing right antecubital vein. Needle removed intact. Dressing secured. Patient denies discomfort, dizziness, light-headedness or weakness and left the department without assist. Danna Pitts RN documented in this encounter [facility] 03-07-2022 Note OPERATIVE NOTE OPERATION DATE: [...] the recovery room in good condition. [facility] Evaluation note Diagnosis Thyroid cancer (HCC)- Primary Malignant neoplasm of thyroid gland [facility] Thyroid cancer (HCC)- Primary Malignant neoplasm of thyroid gland [facility] Diagnosis Missed menses Amenorrhea Absence [...] or prosecute any alcohol or drug abuse patient.[facility] the event this information is protected by the Federal Confidentiality of Alcohol and Drug Abuse Patient Records regulations: The Federal rules restrict any use of the information to criminally investigate or prosecute any alcohol or drug abuse patient.[facility] the event this information is protected by the Federal Confidentiality of Alcohol and Drug Abuse Patient Records regulations: The Federal rules restrict any use of the information to criminally investigate or prosecute any alcohol or drug abuse patient.[facility] the event this information is protected by the Federal Confidentiality of Alcohol and Drug Abuse Patient Records regulations: The Federal rules restrict any use of the information to criminally investigate or prosecute any alcohol or drug abuse patient.[facility] Hospital[facility] the event this information is protected by the Federal Confidentiality of Alcohol and Drug Abuse Patient Records regulations: The Federal rules restrict any use of the information to criminally investigate or prosecute any alcohol or drug abuse patient.[facility] Hospital[facility] the event this information is protected by the Federal Confidentiality of Alcohol and Drug Abuse Patient Records regulations: The Federal rules restrict any use of the information to criminally investigate or prosecute any alcohol or drug abuse patient.[facility] Hospital[facility] the event this information is protected by the Federal Confidentiality of Alcohol and Drug Abuse Patient Records regulations: The Federal rules restrict any use of the information to criminally investigate or prosecute any alcohol or drug abuse patient.[facility] Reason for Visit (unrecogniz ed section and content) Reason Comments Phlebotomy Reason Comments Thyroid Cancer Follow up Reason Comments Missed Appointment Reason Comments Phone Visit Reason Comments Appointment Confirmation Reason Comments Amenorrhea Care Teams (unrecognized sec tion and content) Rougher Helper Relationship Specialty Start Date End Date Sara Medellin MD [address] [place] [address] PCP - General Family Medicine 04/11/22 Rougher Helper Relationship Specialty Start Date End Date Sara Medellin MD [address] [place] [id number] PCP - General Family Medicine 04/11/22 Rougher Helper Relationship Specialty Start Date End Date Sara Medellin MD [address] [place] [id number] PCP - General Family Medicine 04/11/22 Rougher Helper Relationship Specialty Start Date End Date Sara Medellin MD PCP - General Family Medicine 04/11/22 Rougher Helper Relationship Specialty Start Date End Date Sara Medellin MD PCP - General Family Medicine 04/11/22 Rougher Helper Relationship Specialty Start Date End Date Sara Medellin MD [address] [place] [address] PCP - General Family Medicine 10/03/22 INFORMATION SOURCE (unrecogn ized section and content) DATE CREATED AUTHOR 09/02/2022 [facility] DATE CREATED AUTHOR AUTHOR'S ORGANIZ ATION 02/16/2023 [facility] DATE CREATED AUTHOR AUTHOR'S ORGANIZ ATION 06/14/2023 [facility] FOR RECORDS PERTAINING TO PATIENTS WHO [...] BE BASED ON THE PRIMARY CLINICAL RECORDS. [facility] [employer] provides no warranty or guarantee of the accuracy or completeness of information in this document.
--- NOTE | 2023-06-24 17:35 | ECG_ITS ---
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
--- NOTE | 2023-06-24 17:40 | XR_ITS ---
[address] [address] Patient Name: LITO RAMIREZ MRN: [id number] date: 1990 Sex: F Assigned Patient Location: ER Current Patient Location: ER Accession/Order Number: [id number] Exam Date: 06/24/2023 17:45 Report Date: 06/24/2023 18:24 At the request of: RICHARD JOINER Procedure: XR chest 1V EXAM: XR chest 1V HISTORY: cough COMPARISON: None. TECHNIQUE: AP portable upright chest x-ray FINDINGS: Clear lungs, no infiltrate or edema. Normal heart size and mediastinal contour. No pleural effusion or pneumothorax. XR/XR chest 1V IMPRESSION: Negative chest x-ray, no acute findings. Clear lungs. Electronically authenticated by: ZAC ESCOTO Date: 06/24/2023 18:24
[2023-06-24] MEDS: BENZONATATE 100 MG CAPSULE 200 MG PO (17:53)
[2023-06-24] MEDS: ACETAMINOPHEN 500 MG TABLET 1000 MG PO (17:53)
[2023-06-24] MEDS: DOXYCYCLINE MONOHYDRATE 100 MG CAPSULE PO (18:26)
--- NOTE | 2023-06-24 18:38 | ED_ITS ---
HPI - URI/Sore Throat General Chief Complaint: Upper Respiratory Infection Stated Complaint: Shortness of breath Time Seen by Provider: 06/24/23 17:25 Source: patient Limitations: no limitations History of Present Illness HPI Narrative: Patient is a 33-year-old female presents to the ER with concerns of pneumonia. Patient was seen earlier in the week and her son was diagnosed with influenza A. Patient's personal test was negative but she did have classic symptoms. Patient notes she has had wheezing, her son came in earlier this evening with the grandmother and was noted to have pneumonia. The patient presents with concerns that she has had continued cough and would like to rule out that she has pneumonia as well. Patient notes some chest heaviness, pain with cough. She denies chest pain on exertion.. MD elicited complaint: Reports fever, cough, rhinorrhea and nasal congestion; Denies sore throat Onset (ago): minute(s) Consistency: Reports constant Severity: moderate Description of mucous: Reports clear and watery Able to tolerate fluids by mouth: Yes Exacerbating factors: Reports nothing Relieving factors: Reports nothing Context: Reports sick contacts (son with flu A and pneumonia) Treatments prior to arrival: Reports none Related Data Previous Rx's Medication Instructions Recorded benzonatate 200 mg capsule 200 mg PO TID PRN cough #15 caps 06/24/23 doxycycline hyclate 100 mg capsule 100 mg PO BID 10 days #20 caps 06/24/23 Allergies Allergy/AdvReac Type Severity Reaction Status Date / Time cefaclor [From [facility]] Allergy Severe Anaphylaxis Verified 06/20/23 13:37 Penicillins Allergy Severe Anaphylaxis Verified 06/20/23 13:37 Review of Systems ROS Constitutional Reports: fever and chills; Denies: change in weight Eyes Denies: change in vision Ears, nose, mouth, and throat Denies: throat pain or neck pain Cardiovascular Denies: chest pain or palpitations Respiratory Reports: shortness of breath, cough, wheezing and chest congestion; Denies: pain on inspiration Gastrointestinal Denies: abdominal pain, nausea or vomiting Musculoskeletal Denies: back pain or neck pain Integumentary/Breast Denies: rash or itching Neurological Denies: headache Psychiatric Denies: anxiety Allergic/Immunologic Denies: hives PFSH PFSH Social History Smoking status: Current every day smoker Exam Narrative Exam Narrative: Nurses notes and vital signs reviewed and patient is not hypoxic. General: The patient appears well and in no apparent distress. Patient is resting comfortably on cart. Skin: Warm, dry, no pallor noted.no evidence of rash Head: Normocephalic, atraumatic Neck: Supple, trachea mid-line, no tenderness, no lymphadenopathy Eye: Pupils are equal, round and reactive to light, EOMI Ears, Nose, Mouth, and Throat: TM are clear, normal light reflex, oral mucosa is moist, no posterior oropharynx erythema or hypertrophy, uvula is mid-line Cardiovascular: Regular Rate and Rhythm Respiratory: Patient is in no distress, + harsh dry cough on arrival, no accessory muscle use, lungs are clear to auscultation, slight exp wheeze clears with cough, rales or rhonchi. Chest Wall: no tenderness Back: non-tender, no CVA tenderness Musculoskeletal: normal ROM, no tenderness, no swelling GI: Normal bowel sounds, no tenderness to palpation, no masses appreciated. No rebound, guarding, or rigidity noted. Neurological: A&O x4 Psychiatric: Cooperative Constitutional Vital Signs, click to edit/add: Last Vital Signs Temp 99.1 F 06/24/23 17:26 Pulse 79 06/24/23 17:26 Resp 22 06/24/23 17:26 BP 117/82 06/24/23 17:26 Pulse Ox 97 06/24/23 17:26 O2 Del Method Room Air 06/24/23 17:26 Course Vital Signs Vital signs: Vital Signs Temperature 99.1 F 06/24/23 17:26 Pulse Rate 79 06/24/23 17:26 Respiratory Rate 22 06/24/23 17:26 Blood Pressure 117/82 06/24/23 17:26 Pulse Oximetry 97 06/24/23 17:26 Oxygen Delivery Method Room Air 06/24/23 17:26 Temperature 99.1 F 06/24/23 17:26 Pulse Rate 79 06/24/23 17:26 Respiratory Rate 22 06/24/23 17:26 Blood Pressure 117/82 06/24/23 17:26 Pulse Oximetry 97 06/24/23 17:26 Oxygen Delivery Method Room Air 06/24/23 17:26 MDM - URI/Sore Throat MDM Narrative Medical decision making narrative: Discussed patient's presentation, cough congestion, influenza a presumably earlier in the week with exposure to sun, patient has been using his nebulizer machine sharing the medication , concerned with son developing pneumonia this evening noted on chest x-ray, patient had chest x-ray performed here with no evidence of pneumonia but given her cough symptoms and clinical history recommend treatment with doxycycline. Will hold on prednisone. Medication safety discussed, will need close follow-up to family doctor for reevaluation. Patient will need to continue treating fever with Tylenol and Motrin as needed. Patient agreeable to treatment plan.The patient is to followup with primary care physician in next 2-3 days or to return to the emergency department should any of the signs or symptoms worsen or new symptoms develop. Patient had questions answered. The patient agrees with the following Diagnosis and Treatment plan and the patient will be discharged home. Differential Diagnosis Differential diagnosis: Likely upper respiratory infection and influenza Imaging Data Chest x-ray: Radiologist's impression: ITS Impressions Chest X-Ray 06/24/23 17:40 IMPRESSION: Negative chest x-ray, no acute findings. Clear lungs. Electronically authenticated by: ZAC ESCOTO Date: 06/24/2023 18:24 Discharge Plan Discharge Chief Complaint: Upper Respiratory Infection Clinical Impression: Influenza-like illness, Bronchitis Patient Disposition: Home, Self-Care Time of Disposition Decision: 18:43 Condition: Good Prescriptions / Home Meds: New doxycycline hyclate 100 mg capsule 100 mg PO BID 10 Days Qty: 20 0RF benzonatate 200 mg capsule 200 mg PO TID PRN (Reason: cough) Qty: 15 0RF Instructions: Influenza (ED), Acute Bronchitis (ED) Additional Instructions: recheck with pcp in 2-4 days ( return to ER if symptoms worsen) Stand Alone Forms: Portal Instructions Referrals: Enmanuel Medellin MD [Primary Care Provider] - As soon as possible
== END 2023-06-24 18:53 | disposition home or self-care (01) ==
PROVIDERS: Emergency Provider Emergency Medicine; PCP Family Medicine
DX: J40 Bronchitis, not specified as acute or chronic (principal); J11.1 Influenza due to unidentified influenza virus with other respiratory manifestations; F17.210 Nicotine dependence, cigarettes, uncomplicated
CPT/HCPCS: 71045; 93005; 99283

== ENCOUNTER 2023-09-14 08:34 | Outpatient (OUT) | payer OTHER, SELFPAY ==
--- NOTE | 2023-09-14 08:35 | US_ITS ---
[address] [address] Patient Name: LITO RAMIREZ MRN: [id number] date: 1990 Sex: F Assigned Patient Location: [facility] Current Patient Location: [facility] Accession/Order Number: [id number] Exam Date: 09/14/2023 08:36 Report Date: 09/14/2023 09:15 At the request of: MARTINE LESTER Procedure: US OB transvaginal EXAMINATION: US OB transvaginal HISTORY: MISSED MENSES COMPARISON: No relevant comparison available. FINDINGS: Carreon intrauterine gestation Gestational sac: 2.1 cm, 6 weeks 4 days CRL: 1.30 cm, 7 weeks 4 days Yolk sac: 3.5 mm Heart rate: 159 beats minute Cervix: Closed, 5.4 cm The uterus is normal, anteverted, anteflexed The right ovary is normal. Corpus luteal cyst. The left ovary is not visualized Clinical age: 13 weeks 4 days Clinical [place]: 03/17/2024 Ultrasound age: 7 weeks 4 days Ultrasound [place]: 04/28/2024 US/US OB transvaginal IMPRESSION: Viable carreon intrauterine gestation measuring 7 weeks 4 days Electronically authenticated by: SHAILESH EMERY Date: 09/14/2023 09:15
--- OUTSIDE RECORDS SUMMARY | 2023-09-14 08:55 | XMS_ITS | CCD ---
Author Organization [facility] Care Team Providers Care Psychiatric Mental Health Nurse Name Role Phone Sara Medellin MD Primary Care Provider [phone] RAIZA, DR GUERRA Consulting Unavailable HOY ., DR RUIZ Primary Care Unavailable TIMMIS, DR GUERRA Attending Unavailable TIMMIS, DR GUERRA Admitting Unavailable JERMAN, DR GAIL Serrato Consulting Unavailable STOLL, DR GAIL Serrato Attending Unavailable STOLL, DR GAIL Serrato Admitting Unavailable HOY ., DR RUIZ Primary Care Unavailable ANIBAL, MIKE Consulting Unavailable SHANIA ., DR FARLEY Consulting Unavailable HOY ., DR RUIZ Primary Care Unavailable SHANIA ., DR FARLEY Attending Unavailable SHANIA ., DR FARLEY Admitting Unavailable KIMBERLY ., CLARI Consulting Unavailable KIMBERLY ., CLARI Attending Unavailable KIMBERLY ., CLARI Admitting Unavailable HOY ., DR RUIZ Primary Care Unavailable TIMMIS, DR GUERRA Consulting Unavailable HOY ., DR RUIZ Primary Care Unavailable TIMMIS, DR GUERRA Attending Unavailable TIMMIS, DR GUERRA Admitting Unavailable MORGOLindsay, JOSE Consulting Unavailable SHARP, YAMILET Consulting Unavailable FABRICIO NEWSOME Consulting Unavailable SHANIA [...] Unavailable HOY ., DR RUIZ Admitting Unavailable OREM, DR SHAILESH Clark Consulting Unavailable TIMMIS, DR [...] Unavailable Sara Medellin MD Primary Care Provider [phone] Sara Medellin MD Primary Care Provider [phone] MARTINE JAUREGUI Attending Unavailable SARA MEDELLIN Primary Care Unavailable Arslan GARCIA Attending Unavailable SARA MEDELLIN Primary Care Unavailable SARA MEDELLIN Primary Care Unavailable Arslan GARCIA Attending Unavailable SARA MEDELLIN Primary Care Unavailable SARA MEDELLIN Primary Care Unavailable Allergies Allergy Classification Reported Allergen(s) Allergy Type Date of Onset Reaction(s) Facility (12 sources) Cefaclor; Translations: [CEFACLOR] Drug Allergy 2 Hives, Shortness of Breath, Anaphylaxis [facility] (10 sources) Penicillins; Translations: [PENICILLINS] Drug Allergy 2 Hives, Shortness of Breath [facility] (2 sources) Cefaclor Drug Allergy 4 [facility] (2 sources) Penicillins Drug allergy (disorder) 4 [facility] (2 sources) Penicillin G sodium Allergy to substance 3 Anaphylaxis [facility] Medications Current Medications Medication Drug Class(es) Dates Sig (Normalized) Sig (Original) citalopram 20 mg oral tablet (2 sources) Serotonin Reuptake Inhibitor Start: 10-23-2022 End: 10-23-2023 take 1 tablet by mouth in the morning citalopram (CeleXA) 20 MG tablet Indications: Anxiety, generalized (CMS/HCC) Take 1 tablet (20 mg) by mouth in the morning. 30 tablet 11 10/23/2022 10/23/2023 Active hydroCHLOROthiazide 25 mg / triamterene 37.5 mg oral capsule (2 sources) Potassium-sparing Diuretic, Thiazide Diuretic Start: 01-03-2023 take 1 capsule by mouth in the morning triamterene-hyd roCHLOROthiazid e (Dyazide) 37.5-25 MG capsule Indications: Cochlear hydrops [...] by mouth in the morning. 0 Active Completed/Discontinued Medications Medication Drug Class(es) Dates Sig (Normalized) Sig (Original) albuterol 0.83 mg/ml inhalation solution (9 sources) beta2-Adrenergic Agonist Start: 01-08-2022 take 1 dose by inhalation every four hours as needed albuterol (PROVENTIL) 2.5 mg /3 mL (0.083 %) nebulizer solution INHALE CONTENTS OF 1 VIAL VIA NEBULIZER EVERY 4 HOURS NEEDED 0 01/08/2022 Active Comment on above: INHALE CONTENTS OF 1 VIAL VIA NEBULIZER EVERY 4 HOURS NEEDED Digestive Enzymes tab (9 sources) Digestive Enzyme s tab Take by mouth. 0 Active Comment on above: Take by mouth. fluticasone propionate 0.05 mg/actuat metered dose nasal spray (9 sources) Corticosteroid Start: 04-10-2022 fluticasone (FLONASE) 50 mcg/actuation nasal spray ibuprofen 800 mg oral tablet (9 sources) Nonsteroidal Anti-inflammatory Drug Start: 04-07-2022 ibuprofen (MOTRIN) 800 mg tablet Take 800 mg by mouth. 0 04/07/2022 Active Comment on above: Take 800 mg by mouth . levothyroxine sodium 0.175 mg oral tablet (7 sources) l-Thyroxine Start: 05-09-2023 take 1 tablet by mouth once daily before breakfast levothyroxine (SYNTHROID) 175 mcg tablet Take 1 tablet by mouth daily before breakfast. 30 tablet 3 05/09/2023 Active Start: 11-09-2022 take 1 tablet by олег th once daily before breakfast levothyroxine (SYNTHROID) 175 [...] breakfast. liothyronine sodium 0.025 mg oral tablet (9 sources) l-Triiodothyronine Start: 2 take 1 tablet by mouth twice daily liothyronine (CYTOMEL) 25 mcg tablet TAKE ONE TABLET BY MOUTH TWICE A DAY FOR 30 DAYS 0 04/07/2022 Active Comment on above: TAKE ONE TABLET BY OUT TWICE A DAY FOR 30 DAYS Multivitamin capsule (9 sources) take 1 capsule by mouth once daily Multivitamin capsule Take 1 capsule by mouth once daily. 0 Active Comment on above: Take 1 capsule by mo [facility] once daily. norethindrone 0.35 mg oral tablet (11 sources) Start: 2 take 1 tablet by mouth once daily JENCYCLA 0.35 mg tablet Take 1 tablet by mouth once daily. 0 04/07/2022 Active Comment on above: Take 1 tablet by олег th once daily. omeprazole 40 mg delayed release oral capsule (11 sources) Proton Pump Inhibitor Start: 2 take 1 capsule by mouth once daily in the morning omeprazole (PRILOSEC) 40 mg capsule TAKE ONE CAPSULE BY MOUTH ONCE DAILY IN THE MORNING 30 TO 60 MINUTES PRIOR TO BREAKFAST 0 03/26/2022 Active Comment on above: TAKE ONE CAPSULE BY MOUTH ONCE DAILY IN THE MORNING 30 TO 60 MINUTES PRIOR TO BREAKFAST OTC PRODUCT (9 sources) OTC PRODUCT Supplement by [employer] for breast feeding 0 Active Comment on above: Supplement by [employer] for breast feeding Problems Active Problems Problem Classification Problem Date Documented Date Episodic/Chronic Cancer of thyroid (10 sources) Malignant tumor of thyroid gland; Translations: [...] 09-23-2022 Chronic Other aftercare (1 source) 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 07-19-2023 [facility] Telephone (HEMASA) AMANDA CORTEZ ([id number]) 1990 F Date Time Provider Department 07/19/23 LEONORA SAL During your visit today, we recorded the following information about you: Leonora Sal RN 07/19/2023 10:42 AM Signed Pt called to request labs sent to [facility]. Faxed to central scheduling. Leonora Sal RN Allergies As of Date: 07/19/2023 Noted Allergy Reaction CECLOR (CEFACLOR) 04/11/2022 4 - Hives 12 - Shortness of Breath PENICILLINS 04/11/2022 4 - Hives 12 - Shortness of Breath Date Reviewed: 05/04/2022 Reviewed by: Jerman Daisy - Fully Assessed Reason for Visit: Orders [681] Prescriptions as of 07/19/2023 - levothyroxine (SYNTHROID) 175 mcg tablet Take [...] breast feeding Problem List As Of Date: 07/19/2023 (None) Encounter Status:Closed by LEONORA SAL on 07/19/23 [facility] CNPN Telephone (RADTSA) AMANDA CORTEZ ([id number]) 1990 F Date Time Provider Department 06/25/23 Arslan GARCIA During your visit today, we recorded the following information about you: Danna Pitts RN 06/25/2023 9:20 AM Signed Call placed to pt due to no labs for tomorrow's phone visit. Pt states she has been sick for 2 weeks and has not done them yet. She would like to cancel for tomorrow. When she is feeling better, she will call our office to reschedule labwork and phone visit 1 week later. She is aware that labs need to be a week prior to visit. PSS- please cancel epic phone visit for tomorrow. Thank you KAREN Peters Angela, KAREN 08/14/2023 2:28 PM Signed Please reach out to pt to schedule labs and follow up. Thank you KAREN Peters Angela, KAREN 08/14/2023 2:30 PM Signed TREASURE- please sign pended orders as hers will before she gets here if we are able to reach her to schedule. KAREN Peters Roxana 08/22/2023 9:25 AM Signed Called patient to schedule appts. Left message for her. Roxana Genao 08/23/2023 8:29 AM Signed Patients lab orders were sent to [facility] and I scheduled her a phone visit thank you. Allergies As of Date: 06/25/2023 Noted Allergy Reaction CECLOR (CEFACLOR) 04/11/2022 4 - Hives 12 - Shortness of Breath PENICILLINS 04/11/2022 4 - Hives 12 - Shortness of Breath Date Reviewed: 05/04/2022 Reviewed by: Daisy Stoll MA - Fully Assessed Reason for Visit: Future Appointment [256] Primary Visit Diagnosis:Thyroid cancer (HCC) [C73] Order(s):T4/THYROXINE [SQT4] Order #: [id number] FUTURE THYROID STIMULATING HORMONE [SQTSH] Order #: [id number] FUTURE THYROGLOBULIN, SERUM WITH REFLEX TO IA OR LC-MS/MS [SQTHYRORF] Order #: [id number] FUTURE Prescriptions as of 08/23/2023 - levothyroxine (SYNTHROID) 175 mcg tablet Take [...] breast feeding Problem List As Of Date: 06/25/2023 (None) Encounter Status:Closed by Arslan GARCIA on 08/15/23 [facility] CNPN Telephone (NCCAP) AMANDA CORTEZ ([id number]) 1990 F Date Time Provider Department 02/14/23 [facility] During your visit today, we recorded the following information about you: Roxana Genao 02/14/2023 9:54 AM Signed Patient is scheduled for appointments [facility]; Roxana Genao 4 months with labs. Orders have been placed in [employer]. Allergies As of Date: 02/14/2023 Noted Allergy Reaction CECLOR (CEFACLOR) 04/11/2022 4 - Hives 12 - Shortness of Breath PENICILLINS 04/11/2022 4 - Hives 12 - Shortness of Breath Date Reviewed: 05/04/2022 Reviewed by: Jerman Daisy - Fully Assessed Reason for Visit: Appointment Confirmation [[id number]] Prescriptions as of 02/14/2023 - levothyroxine (SYNTHROID) [...] Of Date: 02/14/2023 (None) Encounter Status:Closed by ROXANA GENAO on 02/14/23 Normal [facility] CBC W Auto Differential pane l (Bld)on 02-01-2023 Basophils (Bld) [#/Vol] 0.04 10*3/uL Normal <0.11 [facility] Comment on above: Order Comment: Speci men Type: BLOOD SPECIMEN Ordering Facility: [facility] Address: [address] [place] [address] Performed By: #### 5 7021-8 #### [facility] CLIA [id number] [address] [place] [address]9622 Basophils/100 WBC (Bld) 0.5 % Normal [facility] Comment on above: Order Comment: Speci men Type: BLOOD SPECIMEN Ordering Facility: [facility] Address: [address] [place] [address] Performed By: #### 5 7021-8 #### [facility] CLIA [id number] [address] [place] [address] 75925 Differential cell count method Nom (Bld) Auto Normal [facility] Comment on above: Order Comment: Speci men Type: BLOOD SPECIMEN Ordering Facility: [facility] Address: [address] [place] [address] Performed By: #### 5 7021-8 #### [facility] CLIA [id number] [address] [place] [address] 14736 Eosinophils (Bld) [#/Vol] 0.19 10*3/uL Normal <0.46 [facility] Comment on above: Order Comment: Speci men Type: BLOOD SPECIMEN Ordering Facility: [facility] Address: [address] [place] [address] Performed By: #### 5 7021-8 #### [facility] CLIA [id number] [address] [place] [address] 65208 Eosinophils/100 WBC (Bld) 2.5 % Normal [facility] Comment on above: Order Comment: Speci men Type: BLOOD SPECIMEN Ordering Facility: [facility] Address: [address] [place] [address] Performed By: #### 5 7021-8 #### [facility] CLIA [id number] [address] [place] [address] 24553 Erythrocyte distribution width (RBC) [Ratio] 13.3 % Normal 11.5-15.0 [facility] Comment on above: Order Comment: Speci men Type: BLOOD SPECIMEN Ordering Facility: [facility] Address: [address] [place] [address] Performed By: #### 5 7021-8 #### [facility] CLIA [id number] [address] [place] [address] 81892 Hematocrit (Bld) [Volume fraction] 47.7 % High 36.0-46.0 [facility] Comment on above: Order Comment: Speci men Type: BLOOD SPECIMEN Ordering Facility: [facility] Address: [address] [place] [address] Performed By: #### 5 7021-8 #### [facility] CLIA [id number] [address] [place] [address] 88446 Hemoglobin (Bld) [Mass/Vol] 15.6 g/dL High 11.5-15.5 [facility] Comment on above: Order Comment: Speci men Type: BLOOD SPECIMEN Ordering Facility: [facility] Address: [address] [place] [address] Performed By: #### 5 7021-8 #### [facility] CLIA [id number] [address] [place] [address] 87937 Immature granulocytes (Bld) [#/Vol] 0.03 10*3/uL Normal <0.10 [facility] Comment on above: Order Comment: Speci men Type: BLOOD SPECIMEN Ordering Facility: [facility] Address: [address] [place] [address] Performed By: #### 5 7021-8 #### [facility] CLIA [id number] [address] [place] [address] 21748 Immature granulocytes/100 WBC (Bld) 0.4 % Normal [facility] Comment on above: Order Comment: Speci men Type: BLOOD SPECIMEN Ordering Facility: [facility] Address: [address] [place] [address] Performed By: #### 5 7021-8 #### [facility] CLIA [id number] [address] [place] [address] 12674 Lymphocytes (Bld) [#/Vol] 2.30 10*3/uL Normal 1.00-4.00 [facility] Comment on above: Order Comment: Speci men Type: BLOOD SPECIMEN Ordering Facility: [facility] Address: [address] [place] [address] Performed By: #### 5 7021-8 #### [facility] CLIA [id number] [address] [place] [address] 60583 Lymphocytes/100 WBC (Bld) 29.7 % Normal [facility] Comment on above: Order Comment: Speci men Type: BLOOD SPECIMEN Ordering Facility: [facility] Address: [address] [place] [address] Performed By: #### 5 7021-8 #### [facility] CLIA [id number] [address] [place] [address] 51924 MCH (RBC) [Entitic mass] 28.8 pg Normal 26.0-34.0 [facility] Comment on above: Order Comment: Speci men Type: BLOOD SPECIMEN Ordering Facility: [facility] Address: [address] [place] [address] Performed By: #### 5 7021-8 #### [facility] CLIA [id number] [address] [place] [address] 30939 MCHC (RBC) [Mass/Vol] 32.7 g/dL Normal 30.5-36.0 [facility] Comment on above: Order Comment: Speci men Type: BLOOD SPECIMEN Ordering Facility: [facility] Address: [address] [place] [address] Performed By: #### 5 7021-8 #### [facility] CLIA [id number] [address] [place] [address] MCV (RBC) [Entitic vol] 88.2 fL Normal 80.0-100.0 [facility] Comment on above: Order Comment: Speci men Type: BLOOD SPECIMEN Ordering Facility: [facility] Address: [address] [place] [address] Performed By: #### 5 7021-8 #### [facility] CLIA [id number] [address] [place] [address] 46479 Monocytes (Bld) [#/Vol] 0.49 10*3/uL Normal <0.87 [facility] Comment on above: Order Comment: Speci men Type: BLOOD SPECIMEN Ordering Facility: [facility] Address: [address] [place] [address] Performed By: #### 5 7021-8 #### [facility] CLIA [id number] [address] [place] [address] 92473 Monocytes/100 WBC (Bld) 6.3 % Normal [facility] Comment on above: Order Comment: Speci men Type: BLOOD SPECIMEN Ordering Facility: [facility] Address: [address] [place] [address] Performed By: #### 5 7021-8 #### [facility] CLIA [id number] [address] [place] [address] 25759 Neutrophils (Bld) [#/Vol] 4.70 10*3/uL Normal 1.45-7.50 [facility] Comment on above: Order Comment: Speci men Type: BLOOD SPECIMEN Ordering Facility: [facility] Address: [address] [place] [address] Performed By: #### 5 7021-8 #### [facility] CLIA [id number] [address] [place] [address] 92012 Neutrophils/100 WBC (Bld) 60.6 % Normal [facility] Comment on above: Order Comment: Speci men Type: BLOOD SPECIMEN Ordering Facility: [facility] Address: [address] [place] [address] Performed By: #### 5 7021-8 #### [facility] CLIA [id number] [address] [place] [address] Nucleated RBC (Bld) [#/Vol] 10*3/uL Normal <0.01 [facility] Comment on above: Order Comment: Speci men Type: BLOOD SPECIMEN Ordering Facility: [facility] Address: [address] [place] [address] Performed By: #### 5 7021-8 #### [facility] CLIA [id number] [address] [place] [address] 28980 Nucleated RBC/100 WBC (Bld) [Ratio] 0.0 /100 WBC Normal [facility] Comment on above: Order Comment: Speci men Type: BLOOD SPECIMEN Ordering Facility: [facility] Address: [address] [place] [address] Performed By: #### 5 7021-8 #### [facility] CLIA [id number] [address] [place] [address] 69923 Platelet mean volume (Bld) [Entitic vol] 9.6 fL Normal 9.0-12.7 [facility] Comment on above: Order Comment: Speci men Type: BLOOD SPECIMEN Ordering Facility: [facility] Address: [address] [place] [address] Performed By: #### 5 7021-8 #### [facility] CLIA [id number] [address] [place] [address] 48945 Platelets (Bld) [#/Vol] 248 10*3/uL Normal 150-400 [facility] Comment on above: Order Comment: Speci men Type: BLOOD SPECIMEN Ordering Facility: [facility] Address: [address] [place] [address] Performed By: #### 5 7021-8 #### [facility] CLIA [id number] [address] [place] [address] 04699 RBC (Bld) [#/Vol] 5.41 10*6/uL High 3.90-5.20 [facility] Comment on above: Order Comment: Speci men Type: BLOOD SPECIMEN Ordering Facility: [facility] Address: [address] [place] [address] Performed By: #### 5 7021-8 #### [facility] CLIA [id number] [address] [place] [address] 62057 WBC (Bld) [#/Vol] 7.75 10*3/uL Normal 3.70-11.00 [facility] Comment on above: Order Comment: Speci men Type: BLOOD SPECIMEN Ordering Facility: [facility] Address: [address] [place] [address] Performed By: #### 5 7021-8 #### [facility] CLIA [id number] [address] [place] [address] 67779 T3 SerPl-mCncon 02-01-2023 T3 [Mass/Vol] 123 ng/dL Normal 79-165 [facility] Comment on above: Order Comment: Speci men Type: BLOOD SPECIMEN Ordering Facility: [facility] Address: [address] [place] [address] Performed By: #### 3 053-6, 3016-3, 3026-2 #### [facility] CLIA [id number] [address] [place] [address] [place] T4 SerPl-mCncon 02-01-2023 T4 [Mass/Vol] 11.9 ug/dL High 5.5-10.2 [facility] Comment on above: Order Comment: Speci men Type: BLOOD SPECIMEN Ordering Facility: [facility] Address: [address] [place] [address] Performed By: #### 3 053-6, 3016-3, 3026-2 #### [facility] CLIA [id number] [facility] [place] [address] [place] THYROGLOBULIN BY MASS SPECTR OMETRYon 02-01-2023 THYROGLOBULIN, LC-MS/MS <0.5 Low 1.3-31.8 [facility] Comment on above: Order Comment: Chel iverson Type: BLOOD SPECIMEN Ordering Facility: [facility] Address: [address] [place] [address] Result Comment: Results obtained with different test [...] developed and its performance characteristics determined by [facility]. It has not been cleared or approved by the [place] Food and Drug Administration. This test was performed in a CLIA certified laboratory and is intended for clinical purposes. Performed By: [facility] [address] [place] [address] [employer] Mechanic: Prem Willis MD, PhD CLIA Number: [id number] Performed By: #### T [facility] #### [facility] CLIA [id number] [address] [place] [address] TSH Banner 02-01-2023 TSH Qn 0.960 m[IU]/L Normal 0.270-4.200 [facility] Comment on above: Order Comment: Chel iverson Type: BLOOD SPECIMEN Ordering Facility: [facility] Address: [address] [place] [address] Result Comment: If t he patient is , TSH reference range varies by gestational period: First Trimester (weeks 9-12): 0.180-2.990 mIU/L Second Trimester: 0.110-3.980 mIU/L Third Trimester: 0.480-4.710 mIU/L Suman Graf et al. A Practical Approach for the Verifications and Determination of Site- and Trimester-Specific Reference Intervals for Thyroid Function tests in . Thyroid, 2019:29:3:412-420. Rajesh Holman et al. 2017 Guidelines of the [place] Thyroid Association for the Diagnosis and Management of Thyroid Disease during and the . Thyroid, 2017:27:3:315-389. Performed By: #### 3 053-6, 3016-3, 3026-2 #### [facility] CLIA [id number] [address] [place] [address] [place] Emelina 11-09-2022 CNPN Telephone (NCCAP) ASHLEYAMANDA Rojelio ([id number]) 1990 F Date Time Provider Department 11/09/22 Arslan GARCIA During your visit today, we recorded the following information about you: Roxana Kern Sec 11/09/2022 3:40 PM Signed Patient is called and scheduled. Arslan Garcia MD [facility] [place]; Roxana Genao 8 weeks with labs, orders placed, [...] Of Date: 11/09/2022 (None) Encounter Status:Closed by ROXANA GENAO on 11/09/22 Normal [facility] T3 SerPl-mCncon 11-02-2022 T3 [Mass/Vol] 84 ng/dL Normal 79-165 [facility] Comment on above: Order Comment: Speci men Type: BLOOD SPECIMEN Ordering Facility: [facility] Address: [address] [place] [address] Performed By: #### 3 016-3, 3053-6, 3026-2 #### [facility] CLIA [id number] [address] [place] [address] [place] T4 SerPl-mCncon 11-02-2022 T4 [Mass/Vol] 8.3 ug/dL Normal 5.5-10.2 [facility] Comment on above: Order Comment: Speci men Type: BLOOD SPECIMEN Ordering Facility: [facility] Address: [address] [place] [address] Performed By: #### 3 016-3, 3053-6, 3026-2 #### [facility] CLIA [id number] [address] [place] [address] [place] TSH SerPl-aCncon 11-02-2022 TSH Qn 23.200 m[IU]/L High 0.270-4.200 [facility] Comment on above: Order Comment: Speci men Type: BLOOD SPECIMEN Ordering Facility: [facility] Address: [address] [place] [address] Result Comment: If t he patient is , TSH reference range varies by gestational period: First Trimester (weeks 9-12): 0.180-2.990 mIU/L Second Trimester: 0.110-3.980 mIU/L Third Trimester: 0.480-4.710 mIU/L Suman Graf et man. A Practical Approach for the Verifications and Determination of Site- and Trimester-Specific Reference Intervals for Thyroid Function tests in . Thyroid, 2019:29:3:412-420. Rajesh Holman, et al. 2017 Guidelines of the [place] Thyroid Association for the Diagnosis and Management of Thyroid Disease during and the . Thyroid, 2017:27:3:315-389. Performed By: #### 3 016-3, 3053-6, 3026-2 #### [facility] CLIA [id number] [address] [place] [address] CNPNon 09-26-2022 CNPN Telephone (RADTSA) AMANDA CORTEZ ([id number]) 1990 F Date Time Provider Department 09/26/22 [...] increased. [facility] Recommend canceling her October 12 appointment and seeing her in approximately 6 weeks with labs which I put the orders in for Irais Turpin LPN 09/27/2022 8:13 AM Signed Tj: Please reschedule follow up and lab as indicated below. Thanks MIKEY Casey 09/27/2022 9:28 AM Signed Patient has been scheduled AND notified of appointment. Tj Funez Allergies As of Date: 09/26/2022 Noted Allergy Reaction CECLOR (CEFACLOR) 04/11/2022 4 - Hives 12 - Shortness of Breath PENICILLINS 04/11/2022 4 - Hives 12 - Shortness of Breath Date Reviewed: 05/04/2022 Reviewed by: Daisy Stoll - Fully Assessed Reason for Visit: Orders [681] Cmt: a Primary Visit Diagnosis:Thyroid cancer (HCC) [C73] Order(s):TSH BLD [SQTSH] Order #: [id number] FUTURE T3 BLD [SQT3] Order #: [id number] FUTURE T4/THYROXINE BLOOD [SQT4] Order #: [id number] FUTURE levothyroxine (SYNTHROID) 150 mcg tabletTake 1 [...] Status:Closed by Arslan GARCIA on 09/26/22 Normal [facility] T4 SerPl-mCncon 09-14-2022 T4 [Mass/Vol] 4.5 ug/dL Low 5.5-10.2 [facility] Comment on above: Order Comment: Speci men Type: BLOOD SPECIMEN Ordering Facility: [facility] Address: [address] [place] [id number] Performed By: #### 3 026-2, 3016-3 #### [facility] CLIA [id number] [address] [place] [address] [place] TSH SerPl-aCncon 09-14-2022 TSH Qn 89.200 m[IU]/L High 0.270-4.200 [facility] Comment on above: Order Comment: Speci men Type: BLOOD SPECIMEN Ordering Facility: [facility] Address: [place] [address] Result Comment: If t he patient is , TSH reference range varies by gestational period: First Trimester (weeks 9-12): 0.180-2.990 mIU/L Second Trimester: 0.110-3.980 mIU/L Third Trimester: 0.480-4.710 mIU/L Suman Graf et al. A Practical Approach for the Verifications and Determination of Site- and Trimester-Specific Reference Intervals for Thyroid Function tests in . Thyroid, 2019:29:3:412-420. Rajesh E, et al. 2017 Guidelines of the [place] [employer] for the Diagnosis and Management of Thyroid Disease during and the . Thyroid, 2017:27:3:315-389. Performed By: #### 3 026-2, 3016-3 #### [facility] CLIA [id number] [address] [place] [address] [place] PREG QUANT HCGon 08-17-2022 HCG QUANT 1 mIU/mL Normal [facility] Comment on above: Performed By: #### P REGQNT #### [facility] [address] [address] [address] Prashant Kang HCG RANGE SEE BELOW Normal [facility] Comment on above: Result Comment: 5-50 0.2-1 WEEK 50-500 1-2 WEEKS 100-5,000 2-3 WEEKS 500-10,000 3-4 WEEKS 1,000-50,000 4-5 WEEKS 10,000-100,000 5-6 WEEKS 15,000-200,000 6-8 WEEKS 10,000-100,000 2-3 MONTHS Performed By: #### P REGQNT #### [facility] [address] [place] [address] Dr. Prashant Kang PREG QUANT HCGon 07-04-2022 HCG QUANT <1 Normal [facility] Comment on above: Performed By: #### P REGQNT #### [facility] [address] [place] [address] Dr. Prashant Kang HCG RANGE SEE BELOW Normal [facility] Comment on above: Result Comment: 5-50 0.2-1 WEEK 50-500 1-2 WEEKS 100-5,000 2-3 WEEKS 500-10,000 3-4 WEEKS 1,000-50,000 4-5 WEEKS 10,000-100,000 5-6 WEEKS 15,000-200,000 6-8 WEEKS 10,000-100,000 2-3 MONTHS Performed By: #### P REGQNT #### [facility] [address] [place] [address] Dr. Prashant Kang PREG QUANT HCGon 05-16-2022 HCG QUANT <1 Normal [facility] Comment on above: Performed By: #### P TT, PT #### [facility] [address] [place] [address] Dr. Prashant Kang HCG RANGE SEE BELOW Normal [facility] Comment on above: Result Comment: 5-50 0.2-1 WEEK 50-500 1-2 WEEKS 100-5,000 2-3 WEEKS 500-10,000 3-4 WEEKS 1,000-50,000 4-5 WEEKS 10,000-100,000 5-6 WEEKS 15,000-200,000 6-8 WEEKS 10,000-100,000 2-3 MONTHS Performed By: #### P TT, PT #### [facility] [address] [place] [address] Dr. Prashant Kang PREG QUANT HCGon 05-08-2022 HCG QUANT <1 Normal [facility] Comment on above: Performed By: #### P REGQNT #### [facility] [address] [place] [address] Dr. Prashant Kang HCG RANGE SEE BELOW Normal [facility] Comment on above: Result Comment: 5-50 0.2-1 WEEK 50-500 1-2 WEEKS 100-5,000 2-3 WEEKS 500-10,000 3-4 WEEKS 1,000-50,000 4-5 WEEKS 10,000-100,000 5-6 WEEKS 15,000-200,000 6-8 WEEKS 10,000-100,000 2-3 MONTHS Performed By: #### P REGQNT #### [facility] [address] [place] [address] Dr. Prashant Kang CALCIUMon 03-08-2022 Calcium [Mass/Vol] 8.6 mg/dL Normal 8.5-10.1 [facility] Comment on above: Performed By: #### C A #### [facility] [address] [place] [address] Dr. Prashant Kang CALCIUMon 03-07-2022 Calcium [Mass/Vol] 8.4 mg/dL Critically low 8.5-10.1 [facility] Comment on above: Performed By: #### C A #### [facility] [address] [place] [address] Dr. Prashant Kang PREG HCG QUALon 03-07-2022 , QUAL Negative Normal NEGATIVE [facility] Comment on above: Performed By: #### P REG #### [facility] [address] [place] [address] Dr. Prashant Kang [facility]on SARS-CoV-2 (COVID-19) RNA DENEEN+probe Ql (Unsp spec) Not detected Normal NOT DETECTED [facility] Comment on above: Result Comment: This test is not yet approved or cleared by the [place] FDA. When there are no FDA-approved or cleared tests available, and other criteria are met, FDA can make tests available under an emergency access mechanism called an Emergency Use Authorization (EUA). The EUA for this test is supported by the [employer] of Health and Human Service's (HHS's) declaration [...] consistent with SARS-CoV-2. Performed By: #### C VDTBH #### [facility] [address] [place] [address] Dr. Prashant Kang CALCIUMon 02-24-2022 Calcium [Mass/Vol] 8.8 mg/dL Normal 8.5-10.1 [facility] Comment on above: Performed By: #### P TT, PT #### [facility] [address] [place] [address] Dr. Prashant Kang CBC AUTO DIFFon 02-24-2022 BASO # 0.0 103/ul Normal 0.0-0.1 [facility] Comment on above: Performed By: #### P TT, PT #### [facility] [address] [place] [address] Dr. Prashant Kang Basophils/100 WBC (Bld) 0.3 % Normal 0.2-2.0 [facility] Comment on above: Performed By: #### P TT, PT #### [facility] [address] [place] [address] Dr. Prashant Kang EO # 0.1 103/ul Normal 0.0-0.7 [facility] Comment on above: Performed By: #### P TT, PT #### [facility] [address] [place] [address] Dr. Prashant Kang Eosinophils/100 WBC (Bld) 1.5 % Normal 0.9-7.0 [facility] Comment on above: Performed By: #### P TT, PT #### [facility] [address] [place] [address] Dr. Prashant Kang Erythrocyte distribution width (RBC) [Ratio] 13.8 % Normal 11.0-15.0 [facility] Comment on above: Performed By: #### P TT, PT #### [facility] [address] [place] [address] Dr. Prashant Kang Hematocrit (Bld) [Volume fraction] 45.5 % Normal 36.0-48.0 [facility] Comment on above: Performed By: #### P TT, PT #### [facility] [address] [place] [address] Dr. Prashant Kang Hemoglobin (Bld) [Mass/Vol] 14.6 g/dL Normal 12.0-16.0 [facility] Comment on above: Performed By: #### P TT, PT #### [facility] [address] [place] [address] Dr. Prashant Kang IG # 0.02 10e3/ul Normal 0.00-0.03 [facility] Comment on above: Performed By: #### P TT, PT #### [facility] [address] [place] [address] Dr. Prashant Kang IG % 0.3 % Normal 0.0-0.5 [facility] Comment on above: Performed By: #### P TT, PT #### [facility] [address] [place] [address] Dr. Prashant Kang LYMPH # 1.6 103/ul Normal 1.2-3.8 [facility] Comment on above: Performed By: #### P TT, PT #### [facility] [address] [place] [address] Dr. Prashant Kang Lymphocytes/100 WBC (Bld) 23.5 % Normal 20.5-60.0 [facility] Comment on above: Performed By: #### P TT, PT #### [facility] [address] [place] [address] Dr. Prashant Kang MANUAL DIFF REQ NO Normal [facility] Comment on above: Performed By: #### P TT, PT #### [facility] [address] [place] [address] Dr. Prashant Kang MCH (RBC) [Entitic mass] 26.5 pg Critically low 26.7-34.0 [facility] Comment on above: Performed By: #### P TT, PT #### [facility] [address] [place] [address] Dr. Prashant Kang MCHC (RBC) [Mass/Vol] 32.1 g/dL Normal 29.9-35.2 [facility] Comment on above: Performed By: #### P TT, PT #### [facility] [address] [place] [address] Dr. Prashant Kang MCV (RBC) [Entitic vol] 82.7 fL Normal 81.0-99.0 [facility] Comment on above: Performed By: #### P TT, PT #### [facility] [address] [place] [address] Dr. Prashant Kang MONO # 0.5 103/ul Normal 0.3-0.8 [facility] Comment on above: Performed By: #### P TT, PT #### [facility] [address] [place] [address] Dr. Prashant Kang Monocytes/100 WBC (Bld) 7.5 % Normal 1.7-12.0 [facility] Comment on above: Performed By: #### P TT, PT #### [facility] [address] [place] [address] Dr. Prashant Kang NEUT # 4.6 103/ul Normal 1.4-6.5 [facility] Comment on above: Performed By: #### P TT, PT #### [facility] [address] [place] [address] Dr. Prashant Kang Neutrophils/100 WBC (Bld) 66.9 % Normal 43.0-75.0 [facility] Comment on above: Performed By: #### P TT, PT #### [facility] [address] [place] [address] Dr. Prashant Kang Platelet mean volume (Bld) [Entitic vol] 9.9 fL Normal 9.5-13.5 [facility] Comment on above: Performed By: #### P TT, PT #### [facility] [address] [place] [address] Dr. Prashant Kang PLT 239 103/ul Normal 150-450 [facility] Comment on above: Performed By: #### P TT, PT #### [facility] [address] [place] [address] Dr. Prashant Kang RBC 5.50 106/ul Critically high 4.20-5.40 [facility] Comment on above: Performed By: #### P TT, PT #### [facility] [address] [place] [address] Dr. Prashant Kang WBC 6.8 103/ul Normal 4.0-11.0 [facility] Comment on above: Performed By: #### P TT, PT #### [facility] [address] [place] [address] Dr. Prashant Kang MAGNESIUMon 02-24-2022 Magnesium [Mass/Vol] 2.0 mg/dL Normal 1.8-2.4 [facility] Comment on above: Performed By: #### P TT, PT #### [facility] [address] [place] [address] Dr. Prashant Kang PHOSPHORUSon 02-24-2022 Phosphate [Mass/Vol] 3.3 mg/dL Normal 2.6-4.7 [facility] Comment on above: Performed By: #### P TT, PT #### [facility] [address] [place] [address] Dr. Prashant Kang PROTIMEon 02-24-2022 INR Coag (PPP) [Relative time] 1.01 {INR} Normal [facility] Comment on above: Performed By: #### P TT, PT #### [facility] [address] [place] [address] Dr. Prashant Kang INR GUIDELINES SEE BELOW Normal [facility] Comment on above: Result Comment: SALIMA RED INR: 2.0 - 3.0 CONDITIONS NOT LISTED BELOW 2.5 - 3.5 FOR PROSTHETIC HEART VALVE REPLACEMENT 2.5 - 3.5 RECURRENT THROMBOSIS Performed By: #### P TT, PT #### [facility] [address] [place] [address] Dr. Prashant Kang PT Coag (PPP) [Time] 10.9 s Normal 9.0-11.6 [facility] Comment on above: Performed By: #### P TT, PT #### [facility] [address], [place] [address] Dr. Prashant Kang PTTon 02-24-2022 aPTT Coag (Bld) [Time] 28.9 s Normal 22.3-36.2 [facility] Comment on above: Performed By: #### P TT, PT #### [facility] [address], [place] [address] Dr. Prashant Kang TSHon 02-24-2022 TSH 1.163 uIU/mL Normal 0.358-3.740 [facility] Comment on above: Performed By: #### P TT, PT #### [facility] [address], [place] [address] Dr. Prashant Kang US THYROID FN ASP BXon 02-09 US THYROID FN ASP BX Begin Addendum #1 COLLECTED DATE/TIME: 02/03/2022 11:36 EDT Final Diagnosis Report for [facility] [place] (A/B) THYROID ISTHMUS NODULE, FINE NEEDLE [...] 2. Pathology results are pending. Normal [facility] CT NECK ST W CONon 2 [...] by: SHAILESH EMERY Date: 2022-01-20 13:05 Normal [facility] US THYROIDon 01-20-2022 US THYROID [...] isthmus nodule. Consider fine-needle aspiration TI-RADS: The [place] [employer] TI-RADS committee's white paper recommendations for thyroid lesions classified as TR4 (moderately suspicious) are listed below: > 1.0 cm. Follow-up ultrasound in 1, 2, 3, and 5 years. > 1.5 cm. FNA. J. Am More Radiol 2017;14:587-595. Electronically authenticated by: SHAILESH EMERY Date: 2022-01-20 21:46 Normal [facility] CBC AUTO DIFFon 01-08-2022 BASO # 0.0 103/ul Normal 0.0-0.1 [facility] Comment on above: Performed By: #### P TT, PT #### [facility] [address] [place] [address] Dr. Prashant Kang Basophils/100 WBC (Bld) 0.4 % Normal 0.2-2.0 [facility] Comment on above: Performed By: #### P TT, PT #### [facility] [address] [place] [address] Dr. Prashant Kang EO # 0.2 103/ul Normal 0.0-0.7 [facility] Comment on above: Performed By: #### P TT, PT #### [facility] [address] [place] [address] Dr. Prashant Kang Eosinophils/100 WBC (Bld) 3.4 % Normal 0.9-7.0 [facility] Comment on above: Performed By: #### P TT, PT #### [facility] [address] [place] [address] Dr. Prashant Kang Erythrocyte distribution width (RBC) [Ratio] 14.6 % Normal 11.0-15.0 [facility] Comment on above: Performed By: #### P TT, PT #### [facility] [address] [place] [address] Dr. Prashant Kang Hematocrit (Bld) [Volume fraction] 42.9 % Normal 36.0-48.0 [facility] Comment on above: Performed By: #### P TT, PT #### [facility] [address] [place] [address] Dr. Prashant Kang Hemoglobin (Bld) [Mass/Vol] 13.4 g/dL Normal 12.0-16.0 [facility] Comment on above: Performed By: #### P TT, PT #### [facility] [address] [place] [address] Dr. Prashant Kang IG # 0.02 10e3/ul Normal 0.00-0.03 [facility] Comment on above: Performed By: #### P TT, PT #### [facility] [address] [place] [address] Dr. Prashant Kang IG % 0.3 % Normal 0.0-0.5 [facility] Comment on above: Performed By: #### P TT, PT #### [facility] [address] [address] [address] Prashant Kang LYMPH # 2.0 103/ul Normal 1.2-3.8 [facility] Comment on above: Performed By: #### P TT, PT #### [facility] [address] [address] [address] Prashant Kang Lymphocytes/100 WBC (Bld) 29.7 % Normal 20.5-60.0 [facility] Comment on above: Performed By: #### P TT, PT #### [facility] [address] [address] [address] Prashant Kang MANUAL DIFF REQ NO Normal [facility] Comment on above: Performed By: #### P TT, PT #### [facility] [address] [place] [address] Dr. Prashant Kang MCH (RBC) [Entitic mass] 26.3 pg Critically low 26.7-34.0 [facility] Comment on above: Performed By: #### P TT, PT #### [facility] [address] [place] [address] Dr. Prashant Kang MCHC (RBC) [Mass/Vol] 31.2 g/dL Normal 29.9-35.2 [facility] Comment on above: Performed By: #### P TT, PT #### [facility] [address] [place] [address] Dr. Prashant Kang MCV (RBC) [Entitic vol] 84.1 fL Normal 81.0-99.0 [facility] Comment on above: Performed By: #### P TT, PT #### [facility] [address] [place] [address] Dr. Prashant Kang MONO # 0.6 103/ul Normal 0.3-0.8 [facility] Comment on above: Performed By: #### P TT, PT #### [facility] [address] [place] [address] Dr. Prashant Kang Monocytes/100 WBC (Bld) 8.7 % Normal 1.7-12.0 [facility] Comment on above: Performed By: #### P TT, PT #### [facility] [address] [place] [address] Dr. Prashant Kang NEUT # 3.9 103/ul Normal 1.4-6.5 [facility] Comment on above: Performed By: #### P TT, PT #### [facility] [address] [place] [address] Dr. Prashant Kang Neutrophils/100 WBC (Bld) 57.5 % Normal 43.0-75.0 [facility] Comment on above: Performed By: #### P TT, PT #### [facility] [address] [place] [address] Dr. Prashant Kang Platelet mean volume (Bld) [Entitic vol] 9.9 fL Normal 9.5-13.5 [facility] Comment on above: Performed By: #### P TT, PT #### [facility] [address] [place] [address] Dr. Prashant Kang PLT 241 103/ul Normal 150-450 [facility] Comment on above: Performed By: #### P TT, PT #### [facility] [address] [place] [address] Dr. Prashant Kang RBC 5.10 106/ul Normal 4.20-5.40 [facility] Comment on above: Performed By: #### P TT, PT #### [facility] [address] [place] [address] Dr. Prashant Kang WBC 6.8 103/ul Normal 4.0-11.0 [facility] Comment on above: Performed By: #### P TT, PT #### [facility] [address] [place] [address] Dr. Prashant Kang GROUP A STREP CULTUREon 12-29 S. pyogenes Ag Ql (Unsp spec) Culture Observations: NEGATIVE FOR GROUP A STREPTOCOCCUS. Normal [facility] Comment on above: Performed By: #### P TT, PT #### [facility] [address] [place] [address] Dr. Prashant Kang PROF 14(COMP METB)on 022 Albumin [Mass/Vol] 3.6 g/dL Normal 3.4-5.0 [facility] Comment on above: Performed By: #### C MP #### [facility] [address] [place] [address] Dr. Prashant Kang Albumin/Globulin [Mass ratio] 0.8 {ratio} Normal [facility] Comment on above: Performed By: #### C MP #### [facility] [address] [address] [address] Prashant Kang ALP [Catalytic activity/Vol] 74 U/L Normal 46-116 [facility] Comment on above: Performed By: #### C MP #### [facility] [address] [place] [address] Dr. Prashant Kang ALT [Catalytic activity/Vol] 40 U/L Normal 14-59 [facility] Comment on above: Performed By: #### C MP #### [facility] [address] [place] [address] Dr. Prashant Kang Anion gap [Moles/Vol] 14.0 mmol/L Normal [facility] Comment on above: Performed By: #### C MP #### [facility] [address] [place] [address] Dr. Prashant Kang AST [Catalytic activity/Vol] 31 U/L Normal 15-37 [facility] Comment on above: Performed By: #### C MP #### [facility] [address] [place] [address] Dr. Prashant Kang Bilirubin [Mass/Vol] 0.4 mg/dL Normal 0.2-1.0 [facility] Comment on above: Performed By: #### C MP #### [facility] [address] [place] [address] Dr. Prashant Kang Calcium [Mass/Vol] 8.8 mg/dL Normal 8.5-10.1 [facility] Comment on above: Performed By: #### C MP #### [facility] [address] [place] [address] Dr. Prashant Kang Chloride [Moles/Vol] 105 mmol/L Normal 98-107 [facility] Comment on above: Performed By: #### C MP #### [facility] [address] [address] [address] Prashant Kang CO2 [Moles/Vol] 26.6 mmol/L Normal 21.0-32.0 [facility] Comment on above: Performed By: #### C MP #### [facility] [address] [address] [address] Prashant Kang Creatinine [Mass/Vol] 0.80 mg/dL Normal 0.55-1.02 [facility] Comment on above: Performed By: #### C MP #### [facility] [address] [address] [address] Prashant Kang EGFR-AF MALAWIAN >60 Normal >=60 [facility] Comment on above: Performed By: #### C MP #### [facility] [address] [address] [address] Prashant Kang EGFR-NON AF MALAWIAN >60 Normal >=60 [facility] Comment on above: Performed By: #### C MP #### [facility] [address] [address] [address] Prashant Kang Globulin (S) [Mass/Vol] 4.3 g/dL Normal [facility] Comment on above: Performed By: #### C MP #### [facility] [address] [address] [address] Prashant Kang Glucose [Mass/Vol] 101 mg/dL Normal 74-106 [facility] Comment on above: Performed By: #### C MP #### [facility] [address] [address] [address] Prashant Kang Potassium [Moles/Vol] 4.6 mmol/L Normal 3.5-5.1 [facility] Comment on above: Performed By: #### C MP #### [facility] [address] [address] [address] Prashant Kang Protein [Mass/Vol] 7.9 g/dL Normal 6.4-8.2 [facility] Comment on above: Performed By: #### C MP #### [facility] [address], [place] [address] Dr. Prashant Kang Sodium [Moles/Vol] 141 mmol/L Normal 136-145 [facility] Comment on above: Performed By: #### C MP #### [facility] [address], [place] [address] Dr. Prashant Kang Urea nitrogen [Mass/Vol] 11.0 mg/dL Normal 7.0-18.0 [facility] Comment on above: Performed By: #### C MP #### [facility] [address], [place] [address] Dr. Prashant Kang Urea nitrogen/Creatinine [Mass ratio] 13.8 mg/mg Normal [facility] Comment on above: Performed By: #### C MP #### [facility] [address] [address] [address] Prashant Kang STREPT SCREENon 01-08-2022 STREP SCREEN A Negative Normal NEGATIVE [facility] Comment on above: Performed By: #### P TT, PT #### [facility] [address], [place] [address] Dr. Prashant Kang XR NECK SOFT TISSUEon [...] MIKE SAID Date: 2022-01-08 04:43 Normal [facility] Covid-19 PCR (CVDTB)on SARS-CoV-2 (COVID-19) RNA DENEEN+probe Ql (Unsp spec) Not detected Normal NOT DETECTED [facility] Comment on above: Result Comment: This test is not yet approved or cleared by the [place] FDA. When there are no FDA-approved or cleared tests available, and other criteria are met, FDA can make tests available under an emergency access mechanism called an Emergency Use Authorization (EUA). The EUA for this test is supported by the [employer] of Health and Human Service's (HHS's) declaration [...] Performed By: #### P TT, PT #### [facility] [address] [place] [address] Dr. Prashant Kang Vital Signs Date Time Vital Sign Value Performing Clinician Faci lity 06-12-2023 13:54-0500 Body mass index (BMI) [Ratio] 40.6 kg/m2 [employer] Work Phone: [facility] 06-12-2023 13:54-0500 Body weight 100.7 kg [employer] Work Phone: [facility] 06-12-2023 13:54-0500 Diastolic blood pressure 74 mm[Hg] [employer] Work Phone: [facility] 06-12-2023 13:54-0500 Systolic blood pressure 118 mm[Hg] [employer]ineOffees Work Phone: [facility] 05-04-2022 09:40-0500 Body temperature 97.2 [degF] JONNY Garcia MD Work Phone: [facility] 05-04-2022 09:40-0500 Body weight 88.81 kg JONNY Garcia MD Work Phone: [facility] 05-04-2022 09:40-0500 Diastolic blood pressure 73 mm[Hg] JONNY Garcia MD Work Phone: [facility] 05-04-2022 09:40-0500 Heart rate 67 /min JONNY Garcia MD Work Phone: [facility] 05-04-2022 09:40-0500 Respiratory rate 16 /min JONNY Garcia MD Work Phone: [facility] 05-04-2022 09:40-0500 SaO2% (BldA) [Mass fraction] 100 % JONNY Garcia MD Work Phone: [facility] 05-04-2022 09:40-0500 Systolic blood pressure 113 mm[Hg] JONNY Garcia MD Work Phone: [facility] Encounters Encounter Date Encounter Type Care Provider Facility Start: 07-19-2023 Telephone encounter Leonora Portillo Hematology/Oncology Comment on above: Orders Start: 06-25-2023 Telephone encounter Arslan Garcia MD Work Phone: Radiation Oncology Comment on above: Future Appointment Start: 06-12-2023 End: 06-12-2023 ambulatory MARTINE SHANIA Not Available Start: 06-12-2023 End: 06-12-2023 Office outpatient visit 15 minutes Martine Shania DO Work Phone: [facility] Comment on above: Missed menses; Amenorrhea Start: 02-14-2023 Telephone encounter Arslan Garcia MD Work Phone: [facility] Comment on above: Appointment Confirma tion Start: 02-08-2023 End: 02-09-2023 ambulatory Arslan GARCIA Facility:[facility] Start: 02-01-2023 End: 02-01-2023 ambulatory SARA MEDELLIN Facility:[facility] Start: 11-09-2022 Telephone encounter Arslan Garcia MD Work Phone: [facility] Comment on above: Appointment Confirma tion Start: 11-09-2022 End: 11-10-2022 ambulatory Arslan GARCIA Facility:[facility] Start: 11-02-2022 End: 11-02-2022 ambulatory SARA MEDELLIN Facility:[facility] Start: 09-14-2022 End: 09-14-2022 ambulatory SARA MEDELLIN Facility:[facility] Start: 09-01-[address] SARA MEDELLIN . Facili ty:[facility] Start: 08-23-2022 End: 08-23-2022 ambulatory DHRUV MCDONALD Facility:[facility] Start: 08-17-2022 End: 08-27-[address] MARTINE JAUREGUI . Facility:[facility] Start: 08-06-2022 End: 08-06-2022 ambulatory DHRUV MCDONALD Facility:[facility] Start: 07-17-2022 Telephone encounter Arslan Garcia MD Work Phone: Radiation Oncology Comment on above: Phone Visit Start: 07-04-2022 End: 07-28-[address] MARTINE JAUREGUI . Facility:[facility] Start: 05-08-2022 End: 05-30-[address] MARTINE JAUREGUI . Facility:[facility] Start: 05-04-2022 End: 05-04-2022 Patient encounter procedure Arslan Garcia MD Work Phone: Radiation Oncology Comment on above: Thyroid cancer (HCC) (Primary Dx) Start: 04-25-2022 Telephone encounter Arslan Garcia MD Work Phone: [facility] Comment on above: Missed Appointment Start: 04-20-2022 Patient encounter procedure [facility] Provider [facility] Start: 04-11-2022 End: 04-11-2022 Patient encounter procedure Lab/[place] [facility] Work Phone: Radiation Oncology Comment on above: Thyroid cancer (HCC) (Primary Dx) Start: 03-09-2022 Encounter for preprocedural laboratory examination DR GIANA EASTMAN [facility] Start: 03-07-2022 End: 03-08-[address] GIANA EASTMAN Facility:[facility] Start: 03-04-2022 End: 03-05-[address] GIANA EASTMAN Facility:[facility] Start: 03-04-2022 End: 03-05-2022 Encounter for preprocedural laboratory examination DR GIANA EASTMAN Facility:[facility] Start: 02-24-2022 End: 02-25-[address] GIANA EASTMAN Facility:[facility] Start: 02-06-2022 End: 02-06-2022 ambulatory CLARI HARRIS . Facility:[facility] Start: 02-03-2022 End: 02-03-[address] GIANA EASTMAN Facility:[facility] Start: 01-20-2022 End: 01-21-[address] SARA MEDELLIN . Facility:[facility] Start: 01-08-2022 End: 01-08-[address] GAIL STOLL Facility:[facility] Start: 01-04-2022 End: 01-04-[address] SARA MEDELLIN . Facility:[facility] Start: 12-12-2021 End: 12-12-2021 ambulatory DHRUV MCDONALD Facility:[facility] Plan of Treatment Date Care Activity Detail Author Start: 12-30-2023 Influenza vaccination Influenz a Vaccine (Season Ended) [facility] Start: 08-15-2023 End: 11-14-2023 Thyroglobulin and Thyrogobulin Ab panel - Serum or Plasma THYROGLOBULIN, SERUM WITH REFLEX TO IA OR LC-MS/MS Lab Routine Thyroid cancer (HCC) Expected: 08/15/2023, Expires: 11/14/2023 [facility] Work Phone: Comment on above: Expected: 08/15/2023 , Expires: 11/14/2023 Start: 08-15-2023 End: 11-14-2023 Thyrotropin [Units/volume] in Serum or Plasma THYROID STIMULATING HORMONE Lab Routine Thyroid cancer (HCC) Expected: 08/15/2023, Expires: 11/14/2023 [facility] Work Phone: Comment on above: Expected: 08/15/2023 , Expires: 11/14/2023 Start: 08-15-2023 End: 11-14-2023 Thyroxine (T4) [Mass/volume] in Serum or Plasma T4/THYROXINE Lab Routine Thyroid cancer (HCC) Expected: 08/15/2023, Expires: 11/14/2023 [facility] Work Phone: Comment on above: Expected: 08/15/2023 , Expires: 11/14/2023 Start: 06-26-2023 End: 06-26-2023 Professional / ancillary services management 06/26/2023 1:00 PM EST Ancillary Procedure [facility] [address] [address] [facility] Start: 06-12-2023 End: 06-12-2024 US for US PELVIS-TRANSVAG IF INDICATED Imaging Routine Amenorrhea Expected: 06/12/2023 (Approximate), Expires: 06/12/2024 [facility] Comment on above: Expected: 06/12/2023 (Approximate), Expires: 06/12/2024 Start: 04-30-2023 Behavioral Health Screening Behavioral Health Screening [facility] Start: 04-30-2023 Depression Assessment Depression Ass essment [facility] Start: 12-29-2022 Covid-19 Vaccine () Covid-19 Vaccine () [facility] Start: 12-29-2022 Influenza vaccination [facility] Start: 07-02-2022 End: 09-01-2022 THYROGLOBULIN BY MASS SPECTROMETRY THYROGLOBULIN BY MASS SPECTROMETRY Lab Routine Thyroid cancer (HCC) Expected: 07/02/2022, Expires: 09/01/2022 [facility] Work Phone: Comment on above: Expected: 07/02/2022 , Expires: 09/01/2022 Start: 07-02-2022 End: 09-01-2022 Thyrotropin [Units/volume] in Serum or Plasma TSH BLD Lab Routine Thyroid cancer (HCC) Expected: 07/02/2022, Expires: 09/01/2022 [facility] Work Phone: Comment on above: Expected: 07/02/2022 , Expires: 09/01/2022 Start: 07-02-2022 End: 09-01-2022 Thyroxine (T4) [Mass/volume] in Serum or Plasma T4/THYROXINE BLOOD Lab Routine Thyroid cancer (HCC) Expected: 07/02/2022, Expires: 09/01/2022 [facility] Work Phone: Comment on above: Expected: 07/02/2022 , Expires: 09/01/2022 Start: 04-30-2022 DEPRESSION ASSESSMENT DEPRESSION ASS ESSMENT [facility] Start: 2022 HPV TESTING HPV TESTING [facility] Start: 2022 Screening for malign ant neoplasm of cervix HPV Testing [facility] Start: 12-29-2021 Influenza vaccination INFLUENZA (#1) [facility] Start: 04-30-2021 [facility] Start: 2013 PAP TESTING PAP TESTING [facility] Start: 2013 Screening for malign ant neoplasm of cervix Pap Testing [facility] Start: 2011 Hepatitis B Vaccine (1 of 3 - 19+ 3-dose series) Hepatitis B Vaccine (1 of 3 - 19+ 3-dose series) [facility] Start: 2011 Urine microalbumin profile [facility] Start: 2010 HEPATITIS C SCREENING HEPATITIS C [facility] Start: 2010 Hepatitis C screening Hepatitis C [facility] Start: 2010 HIV SCREENING HIV SCREENING [facility] Start: 2010 HIV screening HIV Screening [facility] Start: 1998 PNEUMOCOCCAL (1 - PCV) PNEUMOCOCCAL (1 - PCV) [facility] Start: 1998 Pneumococcal vaccination [facility] Start: 1992 COVID-19 VACCINE (#1) COVID-19 VACCI NE (#1) [facility] Start: 1992 HEPATITIS B (1 of 3 - 3-dose series) HEPATITIS B (1 of 3 - 3-dose series) [facility] Start: 1992 Hepatitis B Vaccine (1 of 3 - 3-dose series) Hepatitis B Vaccine (1 of 3 - 3-dose series) [facility] CBC W Auto Different ial panel - Blood CBC and differential Lab Routine Amenorrhea Ordered: 06/12/2023 [facility] Comment on above: Ordered: 06/12/2023 hCG, quantitative, hCG, quantitative, Lab Routine Amenorrhea Ordered: 06/12/2023 [facility] Comment on above: Ordered: 06/12/2023 Hemoglobin A1c measurement Hemoglobin A1c Lab Routine Amenorrhea Ordered: 06/12/2023 [facility] Comment on above: Ordered: 06/12/2023 Prolactin Prolactin Lab Ro utine Amenorrhea Ordered: 06/12/2023 [facility] Comment on above: Ordered: 06/12/2023 Thyrotropin [Units/volume] in Serum or Plasma TSH Lab Routine Amenorrhea Ordered: 06/12/2023 [facility] [employer] Work Phone: Comment on above: Ordered: 06/12/2023 [facility] Payers Date Payer Category Payer Medicaid [id number] 1992 Unknown [id number] 2.16.84 [id number] 1992 Unknown [id number] 2.16.84 [id number] 1992 Unknown [id number] 2.16.84 [id number] 1992 Unknown [id number] 2.16.84 [id number] 1992 Unknown [id number] 2.16.84 [id number] 1992 Unknown [id number] 2.16.84 [id number] 1992 Unknown [id number] 2.16.84 [id number] 1992 Unknown [id number] 2.16.84 [id number] 1992 Unknown [id number] 2.16.84 [id number] 1992 Unknown [id number] 2.16.84 [id number] 1992 Unknown [id number] 2.16.84 [id number] 1992 Unknown [id number] 2.16.84 [id number] 1992 Unknown [id number] 2.16.84 [id number] 1992 Unknown [id number] 2.16.84 [id number] 1992 Unknown [id number] 2.16.84 [id number] 1992 Unknown [id number] 2.16.84 [id number] 1959 Unknown [id number] Social History Date Type Detail Facility Start: 04-11-2022 End: 09-23-2022 Tobacco smoking status MNIS Smokes tobacco daily [facility] History of tobacco use Cigarette Smoker C [facility] Start: 04-11-2022 End: 11-02-2022 Cigarettes smoked current (pack per day) - Reported 1 [facility] Start: 04-11-2022 End: 09-23-2022 Tobacco use and exposure Smokeless tobacco non-user [facility] Start: 04-11-2022 End: 05-04-2022 Alcohol intake Current drinker of alcohol (finding) [facility] Start: 04-11-2022 Alcohol Comment socially [facility] Start: 1990 Sex Assigned At Not on file C [facility] Start: 05-04-2022 End: 11-02-2022 Tobacco use panel [facility] Adult Depression Screening Assessment 0 [facility] Start: 10-03-2022 Alcohol Comment caffeine intak e: 1-2 cups per day [facility] Start: 1990 Sex Assigned At Female [facility] Start: 10-04-2022 Gender identity Identifies as female gender (finding) [facility] Clinical Notes 03-07-2022 to 08-14-2023 Telephone Encounter - Danna Pitts RN - 08/14/2023 2:29 PM EDTTelephone Encounter - Danna Pitts RN - 08/14/2023 2:27 PM EDTTelephone Encounter - Danna Pitts RN - 06/25/2023 9:19 AM EST Note Date & Type Note Facility 08-14-2023 Miscellaneous Notes TREASURE- please sign pended orders as hers will before she gets here if we are able to reach her to schedule. Danna Pitts RN Please reach out to pt to schedule labs and follow up. Thank you Danna Pitts RN Call placed to pt due to no labs for tomorrow's phone visit. Pt states she has been sick for 2 weeks and has not done them yet. She would like to cancel for tomorrow. When she is feeling better, she will call our office to reschedule labwork and phone visit 1 week later. She is aware that labs need to be a week prior to visit. PSS- please cancel epic phone visit for tomorrow. Thank you Danna Pitts RN documented in this encounter [facility] 07-19-2023 Miscellaneous Notes Pt called to request labs sent to [facility]. Faxed to central scheduling. Leonora Sal RN documented in this encounter [facility] 06-12-2023 History of Present illness Narrative Reason [...] calculated from the following: Height as of 23: 5' 2 . Weight as of this [...] Documented by MAXIMILIAN Lombardo on behalf of: Martine Jauregui DO documented in this encounter [facility] 02-14-2023 Miscellaneous Notes Images from the original note were not included. Patient is scheduled for appointments Arslan Garcia MD P [facility] Govind Wade; Roxana Genao 4 months with labs. Orders have been placed in [facility]. documented in this encounter [facility] 02-08-2023 Note HNO ID: [id number] Author: Arslan Garcia MD Service: ? Author [...] Time Spent: 6 minutes Arslan Garcia MD [facility] 11-09-2022 Miscellaneous Notes Images from the original note were not included. Patient is called and scheduled. Arslan Garcia MD [facility]; Roxana Genao 8 weeks with labs, orders placed, thank you documented in this encounter [facility] 11-09-2022 Note HNO ID: [id number] Author: Arslan Garcia MD Service: ? Author [...] Time Spent: 6 minutes Arslan Garcia MD [facility] 07-17-2022 Miscellaneous Notes Appointment has been changed to phone appt. Tj Funez Pt called in requesting to be switched to a phone visit tomorrow. Her kids are on spring and a couple of them are sick. Labs have been done and resulted. PSS- please change to phone visit for tomorrow. Danna Pitts RN documented in this encounter [facility] 05-04-2022 History of Present illness Narrative Radiation Oncology - FollowupNote PATIENT NAME: Amanda Cortez PATIENT : 1990 DIAGNOSIS: Thyroid cancer, classic papillary thyroid carcinoma, status post total thyroidectomy and right neck exploration on 03/07/2022, stage I [id number]. HPI: Patient returns after further work-up and [...] and right neck exploration on 03/07/2022, stage [id number]. Patient does have significant thyroglobulin antibody however [...] for this encounter. documented in this encounter [facility] 04-25-2022 Miscellaneous Notes Patient had been rescheduled. Tj Funez Images from the original note were not included. Called patient to reschedule, LMOV. MD Jessica Jenkins [facility] Nurse [place]; Tj Funez Unable to reach please reschedule documented in this encounter [facility] 04-11-2022 Nurse Note Amanda Cortez presents in office today for: Lab Draw during Office Visit . Ordering Provider: Felipe Garcia M.D. Test (s) ordered: TG Method for obtaining blood: Phlebotomy was performed, accessing right antecubital vein. Needle removed intact. Dressing secured. Patient denies discomfort, dizziness, light-headedness or weakness and left the department without assist. Danna Pitts RN documented in this encounter [facility] 03-07-2022 Note OPERATIVE NOTE OPERATION DATE: 03/07/2022 PRIMARY CARE PHYSICIAN: Sara Medellin M.D. SURGEON: Giana Eastman M.D. ASSISTANTS: ANGE Richards and ANGE [...] the recovery room in good condition. [facility] Evaluation note Diagnosis Thyroid cancer (HCC)- Primary Malignant neoplasm of [facility] gland [facility] ([facility])- Primary Malignant neoplasm of thyroid gland [facility] Missed menses Amenorrhea Absence of menstruation documented in this encounter [facility]* Diagnosis Thyroid cancer (HCC)- Primary Malignant neoplasm of thyroid gland documented in this encounter [facility] Summary Purpose Family History No Family History [...] or prosecute any alcohol or drug abuse patient.[facility] the event this information is protected by the Federal Confidentiality of Alcohol and Drug Abuse Patient Records regulations: The Federal rules restrict any use of the information to criminally investigate or prosecute any alcohol or drug abuse patient.[facility] the event this information is protected by the Federal Confidentiality of Alcohol and Drug Abuse Patient Records regulations: The Federal rules restrict any use of the information to criminally investigate or prosecute any alcohol or drug abuse patient.[facility] the event this information is protected by the Federal Confidentiality of Alcohol and Drug Abuse Patient Records regulations: The Federal rules restrict any use of the information to criminally investigate or prosecute any alcohol or drug abuse patient.[facility] the event this information is protected by the Federal Confidentiality of Alcohol and Drug Abuse Patient Records regulations: The Federal rules restrict any use of the information to criminally investigate or prosecute any alcohol or drug abuse patient.[facility] Center[facility] the event this information is protected by the Federal Confidentiality of Alcohol and Drug Abuse Patient Records regulations: The Federal rules restrict any use of the information to criminally investigate or prosecute any alcohol or drug abuse patient.[facility] the event this information is protected by the Federal Confidentiality of Alcohol and Drug Abuse Patient Records regulations: The Federal rules restrict any use of the information to criminally investigate or prosecute any alcohol or drug abuse patient.[facility] the event this information is protected by the Federal Confidentiality of Alcohol and Drug Abuse Patient Records regulations: The Federal rules restrict any use of the information to criminally investigate or prosecute any alcohol or drug abuse patient.[facility] Center[facility] the event this information is protected by the Federal Confidentiality of Alcohol and Drug Abuse Patient Records regulations: The Federal rules restrict any use of the information to criminally investigate or prosecute any alcohol or drug abuse patient.[facility] Reason for Visit (unrecogniz ed section and content) Reason Comments Phlebotomy Reason Comments Thyroid Cancer Follow up Reason Comments Missed Appointment Reason Comments Phone Visit Reason Comments Appointment Confirmation Reason Comments Amenorrhea Reason Comments Orders Reason Comments Future Appointment Care Teams (unrecognized sec tion and content) [facility] Nurse Relationship Specialty Start Date End Date Sara Medellin MD [address] [place] [address] PCP - General Family Medicine 04/11/22 [facility] Nurse Relationship Specialty Start Date End Date Sara Medellin MD [address] [place] [address] PCP - General Family Medicine 04/11/22 [facility] Nurse Relationship Specialty Start Date End Date Sara Medellin MD [address] [place] [address] PCP - General Family Medicine 04/11/22 [facility] Nurse Relationship Specialty Start Date End Date Sara Medellin MD PCP - General Family Medicine 04/11/22 [facility] Nurse Relationship Specialty Start Date End Date Sara Medellin MD PCP - [facility] 04/11/22 Psychiatric Mental Health Nurse Relationship Specialty Start Date End Date Sara Medellin MD [address] [place] [address] PCP - General Family Medicine 10/03/22 Psych[facility] Mental Health Nurse Relationship Specialty Start Date End Date Sara Medellin MD PCP - General Family Medicine 04/11/22 [facility] Nurse Relationship Specialty Start Date End Date Sara Medellin MD PCP - General Family Medicine 04/11/22 INFORMATION SOURCE (unrecogn ized section and content) DATE CREATED AUTHOR 09/02/2022 [facility] DATE CREATED AUTHOR AUTHOR'S ORGANIZ ATION 06/14/2023 [facility] DATE CREATED AUTHOR AUTHOR'S ORGANIZ ATION 08/23/2023 [facility] FOR RECORDS PERTAINING TO PATIENTS WHO ARE [...] BE BASED ON THE PRIMARY CLINICAL RECORDS. [facility]. provides no warranty or guarantee of the accuracy or completeness of information in this document.
== END 2023-09-14 08:35 | disposition home or self-care (01) ==
LOC: NOMS 08:34
PROVIDERS: PCP Family Medicine; Visit Provider Obstetrics & Gynecology
DX: Z34.91 Encounter for supervision of normal pregnancy, unspecified, first trimester (principal); Z3A.01 Less than 8 weeks gestation of pregnancy; N92.6 Irregular menstruation, unspecified
CPT/HCPCS: 76817

== ENCOUNTER 2023-09-17 13:02 | Outpatient (OUT) | payer OTHER, SELFPAY ==
[2023-09-17 13:53] LABS: Basophils Percent Auto 0.4 % (0.2-2.0); Eosinophils Absolute Auto 0.2 10^3/uL (0.0-0.7); Hematocrit 42.6 % (36.0-48.0); Hemoglobin 13.9 g/dL (12.0-16.0); Immature Granulocytes Abs Auto 0.04 10^3/uL (0.00-0.03); Immature Granulocytes Pct Auto 0.4 % (0.0-0.5); Lymphocytes Absolute Auto 2.5 10^3/uL (1.2-3.8); Lymphocytes Percent Auto 23.1 % (20.5-60.0); Mean Corpuscular HGB Conc 32.6 g/dL (29.9-35.2); Mean Corpuscular Hemoglobin 27.7 pg (26.7-34.0); Mean Corpuscular Volume 84.9 fL (81.0-99.0); Mean Platelet Volume 9.7 fL (9.5-13.5); Monocytes Absolute Auto 0.6 10^3/uL (0.3-0.8); Monocytes Percent Auto 5.4 % (1.7-12.0); Neutrophils Absolute Auto 7.3 10^3/uL (1.4-6.5); Neutrophils Percent Auto 68.7 % (43.0-75.0); Platelet Count 264 10^3/uL (150-450); Red Blood Count 5.02 10^6/uL (4.20-5.40); White Blood Count 10.6 10^3/uL (4.0-11.0)
[2023-09-17 14:39] LABS: Estimated Average Glucose 108 mg/dL; Glycohemoglobin A1C 5.4 % (4.5-6.2)
[2023-09-18 06:10] LABS: HBsAg Screen Negative (Negative); HCV Ab Non Reactive (Non Reactive); HIV Ab/p24 Ag Screen Non Reactive (Non Reactive)
[2023-09-18 08:14] LABS: Rubella Antibodies, IgG 1.62 index (Immune >0.99)
[2023-09-18 12:12] LABS: Rapid Plasma Reagin, Quant Non Reactive titer (NonRea<1:1)
== END 2023-09-17 13:03 | disposition home or self-care (01) ==
LOC: LAB 13:02
PROVIDERS: PCP Family Medicine; Visit Provider Obstetrics & Gynecology
DX: N92.6 Irregular menstruation, unspecified (principal)
CPT/HCPCS: 36415; 83036; 85025; 86592; 86762; 86803; 86850; 86900; 86901; 87086; 87340; 87389

== ENCOUNTER 2023-09-17 13:04 | Outpatient (OUT) | payer OTHER, SELFPAY ==
[2023-09-17 14:48] LABS: Thyroid Stimulating Hormone 10.513 uIU/mL (0.358-3.740)
== END 2023-09-17 13:05 | disposition home or self-care (01) ==
LOC: LAB 13:04
PROVIDERS: PCP Family Medicine; Visit Provider Radiology Radiation Oncology
DX: N92.6 Irregular menstruation, unspecified (principal); C73 Malignant neoplasm of thyroid gland
CPT/HCPCS: 36415; 83036; 84432; 84436; 84443; 85025; 86592; 86762; 86803; 86850; 86900; 86901; 87340; 87389

== ENCOUNTER 2023-09-25 12:09 | Emergency (ER) | payer OTHER, SELFPAY ==
[2023-09-25 12:18] VITALS: BP 144/77; PULSE 71; TEMP 36.6; O2SAT 100; BMI 39.7
--- NOTE | 2023-09-25 12:32 | ED_ITS ---
HPI - Dental/Oral General Chief complaint: Dental/Oral Stated complaint: TOOTHPAIN/JAW PAIN Time Seen by Provider: 09/25/23 12:23 Source: patient Mode of arrival: walk-in Limitations: no limitations History of Present Illness HPI Narrative: 33-year-old female presents for tooth ache. She has known dental caries in her left lower dentition and is seeing a dentist. The plan is for extraction of all of her teeth but she is 8 weeks . No fever. The pain is throbbing and moderate and continuous. No difficulty breathing or swallowing. Related Data Previous Rx's ?Medication ?Instructions ?Recorded benzonatate 200 mg capsule 200 mg PO TID PRN cough #15 caps 06/24/23 doxycycline hyclate 100 mg capsule 100 mg PO BID 10 days #20 caps 06/24/23 clindamycin HCl 300 mg capsule 300 mg PO Q6H 10 days #40 caps 09/25/23 Allergies Allergy/AdvReac Type Severity Reaction Status Date / Time cefaclor [From [facility]] Allergy Severe Anaphylaxis Verified 06/20/23 13:37 Penicillins Allergy Severe Anaphylaxis Verified 06/20/23 13:37 Review of Systems ROS Narrative A ten point review of systems is negative except as noted above. PFSH PFSH Social History Smoking status: Current every day smoker Exam Narrative Exam Narrative: Nurses note and vital signs reviewed and patient is not hypoxic. General: The patient appears well and in no apparent distress. Patient is resting comfortably sitting in the examination chair. Skin: Warm, dry, no pallor noted. There is no rash noted. Head: Normocephalic, atraumatic Eye: Normal conjunctiva, no drainage Ears, Nose, Mouth, and Throat: oral mucosa is moist. Nares patent. Dental caries noted in the left lower dentition, third molar tooth. No bleeding or pus present. No swelling to the floor of her mouth. No facial swelling or erythema. Cardiovascular: Regular Rate and Rhythm Respiratory: Patient is in no distress, no accessory muscle use Back: non-tender GI: Soft and nontender Musculoskeletal: No joint swelling Neurological: Awake and alert Psychiatric: Cooperative Constitutional Vital Signs, click to edit/add: Last Vital Signs Temp 97.9 F 09/25/23 12:18 Pulse 71 09/25/23 12:18 Resp 18 09/25/23 12:18 BP 144/77 H 09/25/23 12:18 Pulse Ox 100 09/25/23 12:18 O2 Del Method Room Air 09/25/23 12:18 Course Vital Signs Vital signs: Vital Signs Temperature 97.9 F 09/25/23 12:18 Pulse Rate 71 09/25/23 12:18 Respiratory Rate 18 09/25/23 12:18 Blood Pressure 144/77 H 09/25/23 12:18 Pulse Oximetry 100 09/25/23 12:18 Oxygen Delivery Method Room Air 09/25/23 12:18 Temperature 97.9 F 09/25/23 12:18 Pulse Rate 71 09/25/23 12:18 Respiratory Rate 18 09/25/23 12:18 Blood Pressure 144/77 H 09/25/23 12:18 Pulse Oximetry 100 09/25/23 12:18 Oxygen Delivery Method Room Air 09/25/23 12:18 MDM - Dental/Oral MDM Narrative Medical decision making narrative: She is 8 weeks and was prescribed clindamycin. She was encouraged to take Tylenol. Treatment diagnosis and follow-up were discussed with the patient. There is no clinical evidence of an abscess. Differential Diagnosis Differential diagnosis: Likely gingival abscess, dental caries, toothache, dental abscess and fracture of tooth Discharge Plan Discharge Stand Alone Forms: Portal Instructions Chief Complaint: Dental/Oral Clinical Impression: Dental caries Patient Disposition: Home, Self-Care Condition: Good Mode of Transportation: Private Vehicle Prescriptions / Home Meds: New clindamycin HCl 300 mg capsule 300 mg PO Q6H 10 Days Qty: 40 0RF No Action doxycycline hyclate 100 mg capsule 100 mg PO BID 10 Days Qty: 20 0RF benzonatate 200 mg capsule 200 mg PO TID PRN (Reason: cough) Qty: 15 0RF Print Language: [place] Instructions: Toothache (ED) Additional Instructions: Follow-up with your dentist Referrals: Enmanuel Medellin MD [Primary Care Provider] - 1 week
--- OUTSIDE RECORDS SUMMARY | 2023-09-25 12:32 | XMS_ITS | CCD ---
Author Organization [facility] Care Team Providers Care Resaw Tailer Name Role Phone Sara Medellin MD Primary Care Provider [phone] RAIZA, DR GUERRA Consulting Unavailable THEO ., DR RUIZ Primary Care Unavailable TIMMIS, DR GUERRA Attending Unavailable TIMMIS, DR GUERRA Admitting Unavailable JERMAN, DR GAIL Serrato Consulting Unavailable JERMAN, DR GAIL Serrato Attending Unavailable JERMAN, DR GAIL Serrato Admitting Unavailable THEO ., DR RUIZ Primary Care Unavailable MIKE BARNETT Consulting Unavailable SHANIA ., DR FARLEY Consulting Unavailable HOY ., DR RUIZ Primary Care Unavailable SHANIA ., DR FARLEY Attending Unavailable SHANIA ., DR FARLEY Admitting Unavailable KIMBERLY ., CLARI Consulting Unavailable KIMBERLY ., CLARI Attending Unavailable KIMBERLY ., CLARI Admitting Unavailable LUCRETIAY ., DR RUIZ Primary Care Unavailable TIMMIS, [...] Unavailable HOY ., DR RUIZ Admitting Unavailable MILLS, DR SHAILESH Clark Consulting Unavailable TIMMIS, DR [...] Unavailable Sara Medellin MD Primary Care Provider [phone] Sara Medellin MD Primary Care Provider [phone] SARA MEDELLIN Primary Care Unavailable Arslan GARCIA Attending Unavailable SARA MEDELLIN Primary Care Unavailable SARA MEDELLIN Primary Care Unavailable Arslan GARCIA Attending Unavailable SARA MEDELLIN Primary Care Unavailable SARA MEDELLIN Primary Care Unavailable MARTINE JAUREGUI Attending Unavailable Allergies Allergy Classification Reported Allergen(s) Allergy Type Date of Onset Reaction(s) Facility (12 sources) Cefaclor; Translations: [CEFACLOR] Drug Allergy 2 Hives, Shortness of Breath, Anaphylaxis [facility] (10 sources) Penicillins; Translations: [PENICILLINS] Drug Allergy 2 Hives, Shortness of Breath [facility] (2 sources) Cefaclor Drug Allergy [address] [facility] (2 sources) Penicillins Drug allergy (disorder) [address] [facility] (2 sources) Penicillin G sodium [...] on above: Take 1 capsule by mo [facility] once daily. 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 AMANDA CORTEZ ([id number]) 1990 F Date Time Provider Department 07/19/23 LEONORA SAL During your visit today, we recorded the following information about you: Leonora Sal RN 07/19/2023 10:42 AM Signed Pt called to request labs sent to [facility]. Faxed to central scheduling. Leonora Sal [...] Encounter Status:Closed by [facility] (ALONDRAA) AMANDA CORTEZ ([id number]) 1990 F Date Time Provider Department 06/25/23 [...] for tomorrow. Thank you KAREN Peters Angela, RN 08/14/2023 2:28 PM Signed Please reach out to pt to schedule labs and follow up. Thank you KAREN Peters Angela, RN 08/14/2023 2:30 PM Signed TREASURE- please sign pended orders as hers will before she gets here if we are able to reach her to schedule. KAREN Peters Tiffany 08/22/2023 9:25 AM Signed Called patient to schedule appts. Left message for her. Roxana Genao 08/23/2023 8:29 AM Signed Patients lab orders were sent to [facility] and I scheduled her a phone visit [...] cancer (HCC) [C73] Order(s):T4/THYROXINE [SQT4] Order #: [id number] FUTURE THYROID STIMULATING HORMONE [SQTSH] Order #: [id number] FUTURE THYROGLOBULIN, SERUM WITH REFLEX TO IA OR LC-MS/MS [SQTHYRORF] Order #: [id number] FUTURE Prescriptions as of 08/23/2023 - levothyroxine [...] Encounter Status:Closed by Arslan GARCIA on [facility] AMANDA CORTEZ ([id number]) 1990 F Date Time Provider Department 02/14/23 [facility] During your visit today, we recorded the following information about you: Roxana Genao 02/14/2023 9:54 AM Signed Patient is scheduled for appointments Arslan Garcia MD [facility]; Roxana Genao 4 months with labs. Orders have been placed in [place]. Allergies As of Date: 02/14/2023 Noted Allergy [...] Status:Closed by ROXANA GENAO on 02/14/23 Normal [facility] CBC W Auto Differential pane l (Bld)on 02-01-2023 Basophils (Bld) [#/Vol] 0.04 10*3/uL Normal <0.11 [facility] Comment on above: Order Comment: Speci men Type: BLOOD SPECIMEN Ordering Facility: [facility] Address: [address] [place] [address] Performed By: #### 5 7021-8 #### [facility] CLIA [id number] [address] [place] [address] 37758 Basophils/100 WBC (Bld) 0.5 % Normal [facility] Comment on above: Order Comment: Speci men Type: BLOOD SPECIMEN Ordering Facility: [facility] Address: [address] [place] [address] Performed By: #### 5 7021-8 #### [facility] CLIA [id number] [address] [place] [address] 15265 Differential cell count method Nom (Bld) Auto Normal [facility] Comment on above: Order Comment: Speci men Type: BLOOD SPECIMEN Ordering Facility: [facility] Address: [address] [place] [address] Performed By: #### 5 7021-8 #### [facility] CLIA [id number] [address] [place] [address] 15126 Eosinophils (Bld) [#/Vol] 0.19 10*3/uL Normal <0.46 [facility] Comment on above: Order Comment: Speci men Type: BLOOD SPECIMEN Ordering Facility: [facility] Address: [address] [place] [address] Performed By: #### 5 7021-8 #### [facility] CLIA [id number] [address] [place] [address] 71557 Eosinophils/100 WBC (Bld) 2.5 % Normal [facility] Comment on above: Order Comment: Speci men Type: BLOOD SPECIMEN Ordering Facility: [facility] Address: [address] [place] [address] Performed By: #### 5 7021-8 #### [facility] CLIA [id number] [address] [place] [address] 26573 Erythrocyte distribution width (RBC) [Ratio] 13.3 % Normal 11.5-15.0 [facility] Comment on above: Order Comment: Speci men Type: BLOOD SPECIMEN Ordering Facility: [facility] Address: [address] [place] [address] Performed By: #### 5 7021-8 #### [facility] CLIA [id number] [address] [place] [address] 85070 Hematocrit (Bld) [Volume fraction] 47.7 % High 36.0-46.0 [facility] Comment on above: Order Comment: Speci men Type: BLOOD SPECIMEN Ordering Facility: [facility] Address: [address] [place] [address] Performed By: #### 5 7021-8 #### [facility] CLIA [id number] [address] [place] [address] 68116 Hemoglobin (Bld) [Mass/Vol] 15.6 g/dL High 11.5-15.5 [facility] Comment on above: Order Comment: Speci men Type: BLOOD SPECIMEN Ordering Facility: [facility] Address: [address] [place] [address] Performed By: #### 5 7021-8 #### [facility] CLIA [id number] [address] [place] [address] 39301 Immature granulocytes (Bld) [#/Vol] 0.03 10*3/uL Normal <0.10 [facility] Comment on above: Order Comment: Speci men Type: BLOOD SPECIMEN Ordering Facility: [facility] Address: [address] [place] [address] Performed By: #### 5 7021-8 #### [facility] CLIA [id number] [address] [place] [address] Immature granulocytes/100 WBC (Bld) 0.4 % Normal [facility] Comment on above: Order Comment: Speci men Type: BLOOD SPECIMEN Ordering Facility: [facility] Address: [address] [place] [address] Performed By: #### 5 7021-8 #### [facility] CLIA [id number] [address] [place] [address] 47623 Lymphocytes (Bld) [#/Vol] 2.30 10*3/uL Normal 1.00-4.00 [facility] Comment on above: Order Comment: Speci men Type: BLOOD SPECIMEN Ordering Facility: [facility] Address: [address] [place] [address] Performed By: #### 5 7021-8 #### [facility] CLIA [id number] [address] [place] [address] 10739 Lymphocytes/100 WBC (Bld) 29.7 % Normal [facility] Comment on above: Order Comment: Speci men Type: BLOOD SPECIMEN Ordering Facility: [facility] Address: [address] [place] [address] Performed By: #### 5 7021-8 #### [facility] CLIA [id number] [address] [place] [address] 42386 MCH (RBC) [Entitic mass] 28.8 pg Normal 26.0-34.0 [facility] Comment on above: Order Comment: Speci men Type: BLOOD SPECIMEN Ordering Facility: [facility] Address: [address] [place] [address] Performed By: #### 5 7021-8 #### [facility] CLIA [id number] [address] [place] [address] 63110 MCHC (RBC) [Mass/Vol] 32.7 g/dL Normal 30.5-36.0 [facility] Comment on above: Order Comment: Speci men Type: BLOOD SPECIMEN Ordering Facility: [facility] Address: [address] [place] [address] Performed By: #### 5 7021-8 #### [facility] CLIA [id number] [address] [place] [address] 62062 MCV (RBC) [Entitic vol] 88.2 fL Normal 80.0-100.0 [facility] Comment on above: Order Comment: Speci men Type: BLOOD SPECIMEN Ordering Facility: [facility] Address: [address] [place] [address] Performed By: #### 5 7021-8 #### [facility] CLIA [id number] [address] [place] [address] 67831 Monocytes (Bld) [#/Vol] 0.49 10*3/uL Normal <0.87 [facility] Comment on above: Order Comment: Speci men Type: BLOOD SPECIMEN Ordering Facility: [facility] Address: [address] [place] [address] Performed By: #### 5 7021-8 #### [facility] CLIA [id number] [address] [place] [address] 78480 Monocytes/100 WBC (Bld) 6.3 % Normal [facility] Comment on above: Order Comment: Speci men Type: BLOOD SPECIMEN Ordering Facility: [facility] Address: [address] [place] [address] Performed By: #### 5 7021-8 #### [facility] CLIA [id number] [address] [place] [address] 03765 Neutrophils (Bld) [#/Vol] 4.70 10*3/uL Normal 1.45-7.50 [facility] Comment on above: Order Comment: Speci men Type: BLOOD SPECIMEN Ordering Facility: [facility] Address: [address] [place] [address] Performed By: #### 5 7021-8 #### [facility] CLIA [id number] [address] [place] [address] 93905 Neutrophils/100 WBC (Bld) 60.6 % Normal [facility] Comment on above: Order Comment: Speci men Type: BLOOD SPECIMEN Ordering Facility: [facility] Address: [address] [place] [address] Performed By: #### 5 7021-8 #### [facility] CLIA [id number] [address] [place] [address] Nucleated RBC (Bld) [#/Vol] 10*3/uL Normal <0.01 [facility] Comment on above: Order Comment: Speci men Type: BLOOD SPECIMEN Ordering Facility: [facility] Address: [address] [place] [address] Performed By: #### 5 7021-8 #### [facility] CLIA [id number] [address] [place] [address] 75995 Nucleated RBC/100 WBC (Bld) [Ratio] 0.0 /100 WBC Normal [facility] Comment on above: Order Comment: Speci men Type: BLOOD SPECIMEN Ordering Facility: [facility] Address: [address] [place] [address] Performed By: #### 5 7021-8 #### [facility] CLIA [id number] [address] [place] [address] 26946 Platelet mean volume (Bld) [Entitic vol] 9.6 fL Normal 9.0-12.7 [facility] Comment on above: Order Comment: Speci men Type: BLOOD SPECIMEN Ordering Facility: [facility] Address: [address] [place] [address] Performed By: #### 5 7021-8 #### [facility] CLIA [id number] [address] [place] [address] Platelets (Bld) [#/Vol] 248 10*3/uL Normal 150-400 [facility] Comment on above: Order Comment: Speci men Type: BLOOD SPECIMEN Ordering Facility: [facility] Address: [address] [place] [address] Performed By: #### 5 7021-8 #### [facility] CLIA [id number] [address] [place] [address] RBC (Bld) [#/Vol] 5.41 10*6/uL High 3.90-5.20 [facility] Comment on above: Order Comment: Speci men Type: BLOOD SPECIMEN Ordering Facility: [facility] Address: [address] [place] [address] Performed By: #### 5 7021-8 #### [facility] CLIA [id number] [address] [place] [address] 09428 WBC (Bld) [#/Vol] 7.75 10*3/uL Normal 3.70-11.00 [facility] Comment on above: Order Comment: Speci men Type: BLOOD SPECIMEN Ordering Facility: [facility] Address: [address] [place] [address] Performed By: #### 5 7021-8 #### [facility] CLIA [id number] [address] [place] [address] 98203 T3 SerPl-mCncon 02-01-2023 T3 [Mass/Vol] 123 ng/dL Normal 79-165 [facility] Comment on above: Order Comment: Speci men Type: BLOOD SPECIMEN Ordering Facility: [facility] Address: [address] [place] [address] Performed By: #### 3 053-6, 3016-3, 3026-2 #### [facility] CLIA [id number] [facility] [place] [address] [place] T4 SerPl-mCncon 02-01-2023 T4 [Mass/Vol] 11.9 ug/dL High 5.5-10.2 [facility] Comment on above: Order Comment: Speci men Type: BLOOD SPECIMEN Ordering Facility: [facility] Address: [address] [place] [address] Performed By: #### 3 053-6, 3016-3, 3026-2 #### [facility] CLIA [id number] [address] [place] [address] [place] THYROGLOBULIN BY MASS SPECTR OMETRYon 02-01-2023 THYROGLOBULIN, LC-MS/MS <0.5 Low 1.3-31.8 [facility] Comment on above: Order Comment: Chel iverson Type: BLOOD SPECIMEN Ordering Facility: [facility] Address: [place] [address] Result Comment: Results obtained with different test [...] developed and its performance characteristics determined by [facility] [facility]. It has not been cleared or approved by the [place] Food and Drug Administration. This test was performed in a CLIA certified laboratory and is intended for clinical purposes. Performed By: [facility] [address] [place] [address] Testing Director: Prem Willis MD, PhD CLIA Number: [id number] Performed By: #### T [facility] #### PENDING SALE TO [facility] CLIA [id number] [address] [place] [address] TSH [facility] 02-01-2023 TSH Qn 0.960 m[IU]/L Normal 0.270-4.200 [facility] Comment on above: Order Comment: Chel iverson Type: BLOOD SPECIMEN Ordering Facility: [facility] Address: [facility] [place] [address] Result Comment: If t he patient is , TSH reference range varies by gestational period: First Trimester (weeks 9-12): 0.180-2.990 mIU/L Second Trimester: 0.110-3.980 mIU/L Third Trimester: 0.480-4.710 mIU/L Suman Graf et al. A Practical Approach for the Verifications and Determination of Site- and Trimester-Specific Reference Intervals for Thyroid Function tests in . Thyroid, 2019:29:3:412-420. Rajesh E, et al. 2017 Guidelines of the [place] Thyroid Association for the Diagnosis and Management of Thyroid Disease during and the . Thyroid, 2017:27:3:315-389. Performed By: #### 3 053-6, 3016-3, 3026-2 #### [facility] CLIA [id number] [address] [place] [address] [place] CNPMaru 11-09-2022 CNPN Telephone (NCCAP) AMANDA CORTEZ ([id number]) 1990 F Date Time Provider Department 11/09/22 Arslan GARCIA During your visit today, we recorded the following information about you: Roxana Kern Sec 11/09/2022 3:40 PM Signed Patient is called and scheduled. Arslan Garcia MD [facility] [place]; Roxana Genao 8 weeks with labs, orders [...] Status:Closed by ROXANA GENAO on 11/09/22 Normal [facility] T3 SerPl-mCncon 11-02-2022 T3 [Mass/Vol] 84 ng/dL Normal 79-165 [facility] Comment on above: Order Comment: Chel iverson Type: BLOOD SPECIMEN Ordering Facility: [facility] Address: [address] [place] [address] Performed By: #### 3 016-3, 3053-6, 3026-2 #### [facility] CLIA [id number] [address] [place] [address] [place] T4 SerPl-mCncon 11-02-2022 T4 [Mass/Vol] 8.3 ug/dL Normal 5.5-10.2 [facility] Comment on above: Order Comment: Chel iverson Type: BLOOD SPECIMEN Ordering Facility: [facility] Address: [address] [place] [address] Performed By: #### 3 016-3, 3053-6, 3026-2 #### [facility] CLIA [id number] [address] [place] [address] [place] TSH SerPl-aCncon 11-02-2022 TSH Qn 23.200 m[IU]/L High 0.270-4.200 [facility] Comment on above: Order Comment: Chel iverson Type: BLOOD SPECIMEN Ordering Facility: [facility] Address: [address] [place] [address] Result Comment: If t he patient is , TSH reference range varies by gestational period: First Trimester (weeks 9-12): 0.180-2.990 mIU/L Second Trimester: 0.110-3.980 mIU/L Third Trimester: 0.480-4.710 mIU/L Suman Graf et al. A Practical Approach for the Verifications and Determination of Site- and Trimester-Specific Reference Intervals for Thyroid Function tests in . Thyroid, 2019:29:3:412-420. Rajesh Holman, et al. 2017 Guidelines of the [place] Thy[employer] Association for the Diagnosis and Management of Thyroid Disease during and the . Thyroid, 2017:27:3:315-389. Performed By: #### 3 016-3, 3053-6, 3026-2 #### [facility] CLIA [id number] [address] [place] [address] [facility] CNPNon 09-26-2022 CNPN Telephone (RADTSA) AMANDA CORTEZ ([id number]) 1990 F Date Time Provider Department 09/26/22 [...] increased. I called this in the [facility] [place]. Recommend canceling her October 12 appointment and [...] (HCC) [C73] Order(s):TSH BLD [SQTSH] Order #: [id number] FUTURE T3 BLD [SQT3] Order #: [id number] FUTURE T4/THYROXINE BLOOD [SQT4] Order #: [id number] FUTURE levothyroxine (SYNTHROID) 150 mcg tabletTake 1 [...] Status:Closed by Arslan GARCIA on 09/26/22 Normal [facility] T4 SerPl-mCncon 09-14-2022 T4 [Mass/Vol] 4.5 ug/dL Low 5.5-10.2 [facility] Comment on above: Order Comment: Speci men Type: BLOOD SPECIMEN Ordering Facility: [facility] Address: [address] [place] [address] Performed By: #### 3 026-2, 3016-3 #### [facility] CLIA [id number] [address] [place] [address] [place] TSH SerPl-aCncon 09-14-2022 TSH Qn 89.200 m[IU]/L High 0.270-4.200 [facility] Comment on above: Order Comment: Speci men Type: BLOOD SPECIMEN Ordering Facility: [facility] Address: [address] [place] [address] Result Comment: If t he patient is , TSH reference range varies by gestational period: First Trimester (weeks 9-12): 0.180-2.990 mIU/L Second Trimester: 0.110-3.980 mIU/L Third Trimester: 0.480-4.710 mIU/L Suman Graf et al. A Practical Approach for the Verifications and Determination of Site- and Trimester-Specific Reference Intervals for Thyroid Function tests in . Thyroid, 2019:29:3:412-420. Rajesh E, et al. 2017 Guidelines of the [place] Thyroid Association for the Diagnosis and Management of Thyroid Disease during and the . Thyroid, 2017:27:3:315-389. Performed By: #### 3 026-2, 3016-3 #### [facility] CLIA [id number] [address] [place] [address] [place] PREG QUANT HCGon 08-17-2022 HCG QUANT 1 mIU/mL Normal [facility] Comment on above: Performed By: #### P REGQNT #### [facility] [address] [place] [address] Dr. Prashant Kang HCG RANGE SEE BELOW Normal [facility] Comment on above: Result Comment: 5-50 0.2-1 WEEK 50-500 1-2 WEEKS 100-5,000 2-3 WEEKS 500-10,000 3-4 WEEKS 1,000-50,000 4-5 WEEKS 10,000-100,000 5-6 WEEKS 15,000-200,000 6-8 WEEKS 10,000-100,000 2-3 MONTHS Performed By: #### P REGQNT #### [facility] [address] [place] [address] Dr. Prashant Kang PREG QUANT HCGon 07-04-2022 HCG QUANT <[address] [facility] Comment on above: Performed By: #### P REGQNT #### [facility] [address] [place] [address] Dr. Prashant Kang HCG RANGE SEE BELOW Normal [facility] Comment on above: Result Comment: 5-50 0.2-1 WEEK 50-500 1-2 WEEKS 100-5,000 2-3 WEEKS 500-10,000 3-4 WEEKS 1,000-50,000 4-5 WEEKS 10,000-100,000 5-6 WEEKS 15,000-200,000 6-8 WEEKS 10,000-100,000 2-3 MONTHS Performed By: #### P REGQNT #### [facility] [address] [place] [address] Dr. Prashant Kang PREG QUANT HCGon 05-16-2022 HCG QUANT <1 Normal [facility] Comment on above: Performed By: #### P TT, PT #### [facility] [address] [place] [address] Dr. Prashant Kang HCG RANGE SEE BELOW Normal [facility] Comment on above: Result Comment: 5-50 0.2-1 WEEK 50-500 1-2 WEEKS 100-5,000 2-3 WEEKS 500-10,000 3-4 WEEKS 1,000-50,000 4-5 WEEKS 10,000-100,000 5-6 WEEKS 15,000-200,000 6-8 WEEKS 10,000-100,000 2-3 MONTHS Performed By: #### P TT, PT #### [facility] [address] [place] [address] Dr. Prashant Kang PREG QUANT HCGon 05-08-2022 HCG QUANT <[address] [facility] Comment on above: Performed By: #### P REGQNT #### [facility] [address] [place] [address] Dr. Prashant Kang HCG RANGE SEE BELOW Normal [facility] Comment on above: Result Comment: 5-50 0.2-1 WEEK 50-500 1-2 WEEKS 100-5,000 2-3 WEEKS 500-10,000 3-4 WEEKS 1,000-50,000 4-5 WEEKS 10,000-100,000 5-6 WEEKS 15,000-200,000 6-8 WEEKS 10,000-100,000 2-3 MONTHS Performed By: #### P REGQNT #### [facility] [address] [place] [address] [address] Prashant Kang CALCIUMon 03-08-2022 Calcium [Mass/Vol] 8.6 mg/dL Normal 8.5-10.1 [facility] Comment on above: Performed By: #### C A #### [facility] [address] [place] [address] Dr. Prashant Kang CALCIUMon 03-07-2022 Calcium [Mass/Vol] 8.4 mg/dL Critically low 8.5-10.1 [facility] Comment on above: Performed By: #### C A #### [facility] [address] [place] [address] Dr. Prashant Kang PREG HCG QUALon 03-07-2022 , QUAL Negative Normal NEGATIVE [facility] Comment on above: Performed By: #### P REG #### [facility] [address] [place] [address] Dr. Prashant Kang Covid-19 PCR (CVDTB)on SARS-CoV-2 (COVID-19) RNA DENEEN+probe Ql (Unsp spec) Not detected Normal NOT DETECTED [facility] Comment on above: Result Comment: This test is not yet approved or cleared by the [place] FDA. When there are no FDA-approved or cleared tests available, and other criteria are met, FDA can make tests available under an emergency access mechanism called an Emergency Use Authorization (EUA). The EUA for this test is supported by the [place] of Health and Human Service's (HHS's) declaration [...] SARS-CoV-2. Performed By: #### C VDTB #### [facility] [address] [place] [address] Dr. Prashant Kang CALCIUMon 02-24-2022 Calcium [Mass/Vol] 8.8 mg/dL Normal 8.5-10.1 [facility] Comment on above: Performed By: #### P TT, PT #### [facility] [address] [place] [address] Dr. Prashant Kang CBC AUTO DIFFon 02-24-2022 BASO # 0.0 103/ul Normal 0.0-0.1 [facility] Comment on above: Performed By: #### P TT, PT #### [facility] [address] [place] [address] Dr. Prashant Kang Basophils/100 WBC (Bld) 0.3 % Normal 0.2-2.0 [facility] Comment on above: Performed By: #### P TT, PT #### [facility] [address] [place] [address] Dr. Prashant Kang EO # 0.1 103/ul Normal 0.0-0.7 [facility] Comment on above: Performed By: #### P TT, PT #### [facility] [address] [place] [address] Dr. Prashant Kang Eosinophils/100 WBC (Bld) 1.5 % Normal 0.9-7.0 [facility] Comment on above: Performed By: #### P TT, PT #### [facility] [address] [place] [address] Dr. Prashant Kang Erythrocyte distribution width (RBC) [Ratio] 13.8 % Normal 11.0-15.0 [facility] Comment on above: Performed By: #### P TT, PT #### [facility] [address] [place] [address] Dr. Prashant Kang Hematocrit (Bld) [Volume fraction] 45.5 % Normal 36.0-48.0 [facility] Comment on above: Performed By: #### P TT, PT #### [facility] [address] [place] [address] Dr. Prashant Kang Hemoglobin (Bld) [Mass/Vol] 14.6 g/dL Normal 12.0-16.0 [facility] Comment on above: Performed By: #### P TT, PT #### [facility] [address] [place] [address] Dr. Prashant Kang IG # 0.02 10e3/ul Normal 0.00-0.03 [facility] Comment on above: Performed By: #### P TT, PT #### [facility] [address] [place] [address] Dr. Prashant Kang IG % 0.3 % Normal 0.0-0.5 [facility] Comment on above: Performed By: #### P TT, PT #### [facility] [address] [place] [address] Dr. Prashant Kang LYMPH # 1.6 103/ul Normal 1.2-3.8 [facility] Comment on above: Performed By: #### P TT, PT #### [facility] [address] [place] [address] Dr. Prashant Kang Lymphocytes/100 WBC (Bld) 23.5 % Normal 20.5-60.[address] [facility] Comment on above: Performed By: #### P TT, PT #### [facility] [address] [place] [address] Dr. Prashant Kang MANUAL DIFF REQ NO Normal [facility] Comment on above: Performed By: #### P TT, PT #### [facility] [address] [place] [address] Dr. Prashant Kang MCH (RBC) [Entitic mass] 26.5 pg Critically low 26.7-34.0 [facility] Comment on above: Performed By: #### P TT, PT #### [facility] [address] [place] [address] Dr. Prashant Kang MCHC (RBC) [Mass/Vol] 32.1 g/dL Normal 29.9-35.[address] [facility] Comment on above: Performed By: #### P TT, PT #### [facility] [address] [place] [address] Dr. Prashant Kang MCV (RBC) [Entitic vol] 82.7 fL Normal 81.0-99.0 [facility] Comment on above: Performed By: #### P TT, PT #### [facility] [address] [place] [address] Dr. Prashant Kang MONO # 0.5 103/ul Normal 0.3-0.8 [facility] Comment on above: Performed By: #### P TT, PT #### [facility] [address] [place] [address] Dr. Prashant Kang Monocytes/100 WBC (Bld) 7.5 % Normal 1.7-12.[address] [facility] Comment on above: Performed By: #### P TT, PT #### [facility] [address] [place] [address] Dr. Prashant Kang NEUT # 4.6 103/ul Normal 1.4-6.[address] [facility] Comment on above: Performed By: #### P TT, PT #### [facility] [address] [place] [address] Dr. Prashant Kang Neutrophils/100 WBC (Bld) 66.9 % Normal 43.0-75.[address] [facility] Comment on above: Performed By: #### P TT, PT #### [facility] [address] [place] [address] Dr. Prashant Kang Platelet mean volume (Bld) [Entitic vol] 9.9 fL Normal 9.5-13.[address] [facility] Comment on above: Performed By: #### P TT, PT #### [facility] [address] [place] [address] Dr. Prashant Kang PLT 239 103/ul Normal 150-[address] [facility] Comment on above: Performed By: #### P TT, PT #### [facility] [address] [place] [address] Dr. Prashant Kang RBC 5.50 106/ul Critically high 4.20-5.40 [facility] Comment on above: Performed By: #### P TT, PT #### [facility] [address] [place] [address] Dr. Prashant Kang WBC 6.8 103/ul Normal 4.0-11.[address] [facility] Comment on above: Performed By: #### P TT, PT #### [facility] [address] [place] [address] Dr. Prashant Kang MAGNESIUMon 02-24-2022 Magnesium [Mass/Vol] 2.0 mg/dL Normal 1.8-2.[address] [facility] Comment on above: Performed By: #### P TT, PT #### [facility] [address] [place] [address] Dr. Prashant Kang PHOSPHORUSon 02-24-2022 Phosphate [Mass/Vol] 3.3 mg/dL Normal 2.6-4.[address] [facility] Comment on above: Performed By: #### P TT, PT #### [facility] [address] [place] [address] Dr. Prashatn Kang PROTIMEon 02-24-2022 INR Coag (PPP) [Relative time] 1.01 {INR} Normal [facility] Comment on above: Performed By: #### P TT, PT #### [facility] [address] [place] [address] Dr. Prashant Kang INR GUIDELINES SEE BELOW Normal [facility] Comment on above: Result Comment: SALIMA RED INR: 2.0 - 3.0 CONDITIONS NOT LISTED BELOW 2.5 - 3.5 FOR PROSTHETIC HEART VALVE REPLACEMENT 2.5 - 3.5 RECURRENT THROMBOSIS Performed By: #### P TT, PT #### [facility] [address] [place] [address] Dr. Prashant Kang PT Coag (PPP) [Time] 10.9 s Normal 9.0-11.[address] [facility] Comment on above: Performed By: #### P TT, PT #### [facility] [address] [place], [place] [address] Dr. Prashant Kang PTTon 02-24-2022 aPTT Coag (Bld) [Time] 28.9 s Normal 22.3-36.2 [facility] Comment on above: Performed By: #### P TT, PT #### [facility] [address] [place], [place] [address] Dr. Prashant Kang TSHon 02-24-2022 TSH 1.163 uIU/mL Normal 0.358-3.740 [facility] Comment on above: Performed By: #### P TT, PT #### [facility] [address] [place], [place] [address] Dr. Prashant Kang US THYROID FN ASP BXon 02-09 US THYROID FN ASP BX Begin Addendum #1 COLLECTED DATE/TIME: 02/03/2022 11:36 EDT Final Diagnosis Report for [facility] [place], [place] (A/B) THYROID ISTHMUS NODULE, FINE NEEDLE [...] 2. Pathology results are pending. Normal [facility] CT NECK ST W CONon 2 [...] SHAILESH EMERY Date: 2022-01-20 13:[address] [facility] US THYROIDon 01-20-2022 US THYROID EXAMINATION: [...] isthmus nodule. Consider fine-needle aspiration TI-RADS: The [employer] TI-RADS committee's white paper recommendations for thyroid lesions classified as TR4 (moderately suspicious) are listed below: > 1.0 cm. Follow-up ultrasound in 1, 2, 3, and 5 years. > 1.5 cm. FNA. J. Am More Radiol 2017;[id number]. Electronically authenticated by: SHAILESH EMERY Date: 2022-01-20 21:[address] [facility] CBC AUTO DIFFon 01-08-2022 BASO # 0.0 103/ul Normal 0.0-0.1 [facility] Comment on above: Performed By: #### P TT, PT #### [facility] [address] [place] [address] Dr. Prashant Kang Basophils/100 WBC (Bld) 0.4 % Normal 0.2-2.0 [facility] Comment on above: Performed By: #### P TT, PT #### [facility] [address] [place] [address] Dr. Prashant Kang EO # 0.2 103/ul Normal 0.0-0.[address] [facility] Comment on above: Performed By: #### P TT, PT #### [facility] [address] [place] [address] Dr. Prashant Kang Eosinophils/100 WBC (Bld) 3.4 % Normal 0.9-7.0 [facility] Comment on above: Performed By: #### P TT, PT #### [facility] [address] [place] [address] Dr. Prashant Kang Erythrocyte distribution width (RBC) [Ratio] 14.6 % Normal 11.0-15.0 [facility] Comment on above: Performed By: #### P TT, PT #### [facility] [address] [place] [address] Dr. Prashant Kang Hematocrit (Bld) [Volume fraction] 42.9 % Normal 36.0-48.0 [facility] Comment on above: Performed By: #### P TT, PT #### [facility] [address] [place] [address] Dr. Prashant Kang Hemoglobin (Bld) [Mass/Vol] 13.4 g/dL Normal 12.0-16.[address] [facility] Comment on above: Performed By: #### P TT, PT #### [facility] [address] [place] [address] Dr. Prashant Kang IG # 0.02 10e3/ul Normal 0.00-0.03 [facility] Comment on above: Performed By: #### P TT, PT #### [facility] [address] [place] [address] Dr. Prashant Kang IG % 0.3 % Normal 0.0-0.5 [facility] Comment on above: Performed By: #### P TT, PT #### [facility] [address] [place] [address] Dr. Prashant Kang LYMPH # 2.0 103/ul Normal 1.2-3.8 [facility] Comment on above: Performed By: #### P TT, PT #### [facility] [address] [place] [address] Dr. Prashant Kang Lymphocytes/100 WBC (Bld) 29.7 % Normal 20.5-60.0 [facility] Comment on above: Performed By: #### P TT, PT #### [facility] [address] [place] [address] Dr. Prashant Kang MANUAL DIFF REQ NO Normal [facility] Comment on above: Performed By: #### P TT, PT #### [facility] [address] [place] [address] Dr. Prashant Kang MCH (RBC) [Entitic mass] 26.3 pg Critically low 26.7-34.0 [facility] Comment on above: Performed By: #### P TT, PT #### [facility] [address] [place] [address] Dr. Prashant Kang MCHC (RBC) [Mass/Vol] 31.2 g/dL Normal 29.9-35.2 [facility] Comment on above: Performed By: #### P TT, PT #### [facility] [address] [place] [address] Dr. Prashant Kang MCV (RBC) [Entitic vol] 84.1 fL Normal 81.0-99.0 [facility] Comment on above: Performed By: #### P TT, PT #### [facility] [address] [place] [address] Dr. Prashant Kang MONO # 0.6 103/ul Normal 0.3-0.8 [facility] Comment on above: Performed By: #### P TT, PT #### [facility] [address] [place] [address] Dr. Prashant Kang Monocytes/100 WBC (Bld) 8.7 % Normal 1.7-12.[address] [facility] Comment on above: Performed By: #### P TT, PT #### [facility] [address] [place] [address] Dr. Prashant Kang NEUT # 3.9 103/ul Normal 1.4-6.5 [facility] Comment on above: Performed By: #### P TT, PT #### [facility] [address] [place] [address] Dr. Prashant Kang Neutrophils/100 WBC (Bld) 57.5 % Normal 43.0-75.[address] [facility] Comment on above: Performed By: #### P TT, PT #### [facility] [address] [place] [address] Dr. Prashant Kang Platelet mean volume (Bld) [Entitic vol] 9.9 fL Normal 9.5-13.5 [facility] Comment on above: Performed By: #### P TT, PT #### [facility] [address] [place] [address] Dr. Prashant Kang PLT 241 103/ul Normal 150-[address] [facility] Comment on above: Performed By: #### P TT, PT #### [facility] [address] [place] [address] Dr. Prashant Kang RBC 5.10 106/ul Normal 4.20-5.[address] [facility] Comment on above: Performed By: #### P TT, PT #### [facility] [address] [place] [address] Dr. Prashant Kang WBC 6.8 103/ul Normal 4.0-11.[address] [facility] Comment on above: Performed By: #### P TT, PT #### [facility] [address] [place] [address] Dr. Prashant Kang GROUP A STREP CULTUREon 12-29 S. pyogenes Ag (Unsp spec) Culture Observations: NEGATIVE FOR GROUP A STREPTOCOCCUS. Normal [facility] Comment on above: Performed By: #### P TT, PT #### [facility] [address] [place] [address] Dr. Prashant Kang PROF 14(COMP METB)on 022 Albumin [Mass/Vol] 3.6 g/dL Normal 3.4-5.0 [facility] Comment on above: Performed By: #### C MP #### [facility] [address] [place] [address] Dr. Prashant Kang Albumin/Globulin [Mass ratio] 0.8 {ratio} Normal [facility] Comment on above: Performed By: #### C MP #### [facility] [address] [place] [address] Dr. Prashant Kang ALP [Catalytic activity/Vol] 74 U/L Normal 46-116 [facility] Comment on above: Performed By: #### C MP #### [facility] [address] [place] [address] Dr. Prashant Kang ALT [Catalytic activity/Vol] 40 U/L Normal 14-59 [facility] Comment on above: Performed By: #### C MP #### [facility] [address] [place] [address] Dr. Prashant Kang Anion gap [Moles/Vol] 14.0 mmol/L Normal [facility] Comment on above: Performed By: #### C MP #### [facility] [address] [place] [address] Dr. Prashant Kang AST [Catalytic activity/Vol] 31 U/L Normal 15-37 [facility] Comment on above: Performed By: #### C MP #### [facility] [address] [place] [address] Dr. Prashant Kang Bilirubin [Mass/Vol] 0.4 mg/dL Normal 0.2-1.0 [facility] Comment on above: Performed By: #### C MP #### [facility] [address] [place] [address] Dr. Prashant Kang Calcium [Mass/Vol] 8.8 mg/dL Normal 8.5-10.1 [facility] Comment on above: Performed By: #### C MP #### [facility] [address] [place] [address] Dr. Prashant Kang Chloride [Moles/Vol] 105 mmol/L Normal 98-[address] [facility] Comment on above: Performed By: #### C MP #### [facility] [address] [place] [address] [address] Prashant Kang CO2 [Moles/Vol] 26.6 mmol/L Normal 21.0-32.0 [facility] Comment on above: Performed By: #### C MP #### [facility] [address] [place] [address] [address] Prashant Kang Creatinine [Mass/Vol] 0.80 mg/dL Normal 0.55-1.[address] [facility] Comment on above: Performed By: #### C MP #### [facility] [address] [place] [address] Dr. Prashant Kang EGFR-AF KOSOVAN >60 Normal >=60 [facility] Comment on above: Performed By: #### C MP #### [facility] [address] [place] [address] Dr. Prashant Kang EGFR-NON AF KOSOVAN >60 Normal >=60 [facility] Comment on above: Performed By: #### C MP #### [facility] [address] [place] [address] [address] Prashant Kang Globulin (S) [Mass/Vol] 4.3 g/dL Normal [facility] Comment on above: Performed By: #### C MP #### [facility] [address] [place] [address] [address] Prashant Kang Glucose [Mass/Vol] 101 mg/dL Normal 74-106 [facility] Comment on above: Performed By: #### C MP #### [facility] [address] [place] [address] Dr. Prashant Kang Potassium [Moles/Vol] 4.6 mmol/L Normal 3.5-5.[address] [facility] Comment on above: Performed By: #### C MP #### [facility] [address] [place] [address] Dr. Prashant Kang Protein [Mass/Vol] 7.9 g/dL Normal 6.4-8.2 [facility] Comment on above: Performed By: #### C MP #### [facility] [address] [place] [address] [address] Prashant Kang Sodium [Moles/Vol] 141 mmol/L Normal 136-145 [facility] Comment on above: Performed By: #### C MP #### [facility] [address] [place] [address] [address] Prashant Kang Urea nitrogen [Mass/Vol] 11.0 mg/dL Normal 7.0-18.0 [facility] Comment on above: Performed By: #### C MP #### [facility] [address] [place] [address] [address] Prashant Kang Urea nitrogen/Creatinine [Mass ratio] 13.8 mg/mg Normal [facility] Comment on above: Performed By: #### C MP #### [facility] [address] [place] [address] [address] Prashant Kang STREPT SCREENon 01-08-2022 STREP SCREEN A Negative Normal NEGATIVE [facility] Comment on above: Performed By: #### P TT, PT #### [facility] [address] [place] [address] [address] Prashant Kang XR NECK SOFT TISSUEon [...] as clinically indicated. Electronically authenticated by: MIKE BARNETT Date: 2022-01-08 04:[address] [facility] Covid-19 PCR (CVDTBH)on SARS-CoV-2 (COVID-19) RNA DENEEN+probe Ql (Unsp spec) Not detected Normal NOT DETECTED [facility] Comment on above: Result Comment: This test is not yet approved or cleared by the [place] FDA. When there are no FDA-approved or cleared tests available, and other criteria are met, FDA can make tests available under an emergency access mechanism called an Emergency Use Authorization (EUA). The EUA for this test is supported by the [place] of Health and Human Service's (HHS's) declaration [...] Performed By: #### P TT, PT #### [facility] [address] [place] [address] Dr. Prashant Kang Vital Signs Date Time Vital Sign Value Performing Clinician Faci lity 06-12-2023 13:54-0500 Body mass index (BMI) [Ratio] 40.6 kg/m2 Duriana Work Phone: [facility] 06-12-2023 13:54-0500 Body weight 100.7 kg frooly DO Work Phone: [facility] 06-12-2023 13:54-0500 Diastolic blood pressure 74 mm[Hg] Martine Shania Inforama Work Phone: [facility] 06-12-2023 13:54-0500 Systolic blood pressure 118 mm[Hg] Martine Shania Inforama Work Phone: [facility] 05-04-2022 09:40-0500 Body temperature 97.2 [degF] JONNY Garcia MD Work Phone: [facility] 05-04-2022 09:40-0500 Body weight 88.81 kg JONNY Garcia MD Work Phone: [facility] 05-04-2022 09:40-0500 Diastolic blood pressure 73 mm[Hg] JONNY Garcia MD Work Phone: [facility] 05-04-2022 09:40-0500 Heart rate 67 /min JONNY Garcia MD Work Phone: [facility] 05-04-2022 09:40-0500 Respiratory rate 16 /min JONNY Garcai MD Work Phone: [facility] 05-04-2022 09:40-0500 SaO2% (BldA) [Mass fraction] 100 % JONNY Garcia MD Work Phone: [facility] 05-04-2022 09:40-0500 Systolic blood pressure 113 mm[Hg] JONNY Garcia MD Work Phone: [facility] Encounters Encounter Date Encounter Type Care Provider Facility Start: 09-14-2023 End: 09-14-2023 ambulatory MARTINE SHANIA Not Available Start: 07-19-2023 Telephone encounter Leonora Portillo Hematology/Oncology Comment on above: Orders Start: 06-25-2023 Telephone encounter Arslan Garcia MD Work Phone: [facility] Comment on above: Future Appointment Start: 06-12-2023 End: 06-12-2023 ambulatory MARTINE SHANIA Not Available Start: 06-12-2023 End: 06-12-2023 Office outpatient visit 15 minutes Martine Shania DO Work Phone: [facility] Comment on above: Missed menses; Amenorrhea Start: 02-14-2023 Telephone encounter [facility]sl[facility] Comment on above: Appointment Confirma tion Start: 02-08-2023 End: 02-09-2023 ambulatory Arslan GARCIA Facility:[facility] Start: 02-01-2023 End: 02-01-2023 ambulatory SARA MEDELLIN Facility:[facility] Start: 11-09-2022 Telephone encounter Arslan Garcia MD [facility] Comment on above: Appointment Confirma tion Start: 11-09-2022 End: 11-10-2022 ambulatory Arslan GARCIA Facility:[facility] Start: 11-02-2022 End: 11-02-2022 ambulatory SARA MEDELLIN Facility:[facility] Start: 09-14-2022 End: 09-14-2022 ambulatory SARA MEDELLIN Facility:[facility] Start: 09-01-[address] SARA [...] encounter Arslan Garcia MD Work Phone: Cancer [facility] Comment on above: Missed Appointment Start: 04-20-2022 Patient encounter procedure [facility] Provider [facility] Department Start: 04-11-2022 End: 04-11-2022 Patient encounter procedure Lab/[place] Work Phone: Radiation Oncology Comment on above: Thyroid cancer (HCC) (Primary Dx) Start: 03-09-2022 Encounter for preprocedural laboratory examination DR G[facility]NA [facility] Start: 03-07-2022 End: 03-08-[address] GIANA EASTMAN Facility:[facility] Start: 03-04-2022 End: 03-05-[address] GIANA EASTMAN Facility:[facility] Start: 03-04-2022 End: 03-05-2022 Encounter for preprocedural laboratory examination DR GIANA EASTMAN Facility:[facility] Start: 02-24-2022 End: 02-25-[address] GIANA EASTMAN Facility:[facility] Start: 02-06-2022 End: 02-06-2022 ambulatory CLARI KIMBERLY . Facility:[facility] Start: 02-03-2022 End: 02-03-2022 ambulatory [...] Influenza vaccination Influenz a Vaccine (Season Ended) [facility] Start: 08-15-2023 End: 11-14-2023 Thyroglobulin and Thyrogobulin Ab panel - Serum or Plasma THYROGLOBULIN, SERUM WITH REFLEX TO IA OR LC-MS/MS Lab Routine Thyroid cancer (HCC) Expected: 08/15/2023, Expires: 11/14/2023 [facility] Work Phone: Comment on above: Expected: 08/15/2023 , Expires: 11/14/2023 Start: 08-15-2023 End: 11-14-2023 Thyrotropin [Units/volume] in Serum or Plasma THYROID STIMULATING HORMONE Lab Routine Thyroid cancer (HCC) Expected: 08/15/2023, Expires: 11/14/2023 [facility] Work Phone: Comment on above: Expected: 08/15/2023 , Expires: 11/14/2023 Start: 08-15-2023 End: 11-14-2023 Thyroxine (T4) [Mass/volume] in Serum or Plasma T4/THYROXINE Lab Routine Thyroid cancer (HCC) Expected: 08/15/2023, Expires: 11/14/2023 [facility] Work Phone: Comment on above: Expected: 08/15/2023 , Expires: 11/14/2023 Start: 06-26-2023 End: 06-26-2023 Professional / ancillary services management 06/26/2023 1:00 PM EST Ancillary Procedure [facility] [address] [place] [address] [facility] Start: 06-12-2023 End: 06-12-2024 US for US PELVIS-TRANSVAG IF INDICATED Imaging Routine Amenorrhea Expected: 06/12/2023 (Approximate), Expires: 06/12/2024 [facility] Comment on above: Expected: 06/12/2023 (Approximate), Expires: 06/12/2024 Start: 04-30-2023 Behavioral Health Screening Behavioral Health Screening [facility] Start: 04-30-2023 Depression Assessment Depression Ass essment [facility] Start: 12-29-2022 Covid-19 Vaccine () Covid-19 Vaccine () [facility] Start: 12-29-2022 Influenza vaccination C [facility] Start: 07-02-2022 End: 09-01-2022 THYROGLOBULIN BY MASS SPECTROMETRY THYROGLOBULIN BY MASS SPECTROMETRY Lab Routine Thyroid cancer (HCC) Expected: 07/02/2022, Expires: 09/01/2022 [facility] Work Phone: Comment on above: Expected: 07/02/2022 , Expires: 09/01/2022 Start: 07-02-2022 End: 09-01-2022 Thyrotropin [Units/volume] in Serum or Plasma TSH BLD Lab Routine Thyroid cancer (HCC) Expected: 07/02/2022, Expires: 09/01/2022 [facility] Work Phone: Comment on above: Expected: 07/02/2022 , Expires: 09/01/2022 Start: 07-02-2022 End: 09-01-2022 Thyroxine (T4) [Mass/volume] in Serum or Plasma T4/THYROXINE BLOOD Lab Routine Thyroid cancer (HCC) Expected: 07/02/2022, Expires: 09/01/2022 [facility] Work Phone: Comment on above: Expected: 07/02/2022 , Expires: 09/01/2022 Start: 04-30-2022 DEPRESSION ASSESSMENT DEPRESSION ASS [facility] Start: 2022 HPV TESTING [address] TESTING [facility] Start: 2022 Screening for malign ant neoplasm of cervix HPV Testing [facility] Start: 12-29-2021 Influenza vaccination INFLUENZA (#1) [facility] Start: 04-30-2021 DEPRESSION ASSESSMENT DEPRESSION ASS [facility] Start: 2013 PAP TESTING PAP TESTING [facility] Start: 2013 Screening for malign ant neoplasm of cervix Pap Testing [facility] Start: 2011 Hepatitis B Vaccine (1 of 3 - 19+ 3-dose series) Hepatitis B Vaccine (1 of 3 - 19+ 3-dose series) [facility] Start: [address] [facility] Start: 2010 HEPATITIS C SCREENING HEPATITIS C [facility] Start: 2010 Hepatitis C screening Hepatitis C [facility] Start: 2010 HIV SCREENING HIV SCREENING [facility] Start: 2010 HIV screening HIV Screening [facility] Start: 1998 PNEUMOCOCCAL (1 - PCV) PNEUMOCOCCAL (1 - PCV) [facility] Start: [address] [facility] Start: 1992 COVID-19 VACCINE (#1) COVID-19 VACCI NE (#1) [facility] Start: 1992 HEPATITIS B (1 of 3 - 3-dose series) HEPATITIS B (1 of 3 - 3-dose series) [facility] Start: 1992 Hepatitis B Vaccine (1 of 3 - 3-dose series) Hepatitis B Vaccine (1 of 3 - 3-dose series) [facility] CBC W Auto Different ial panel - Blood CBC and differential Lab Routine Amenorrhea Ordered: 06/12/2023 [facility] Comment on above: Ordered: 06/12/2023 hCG, quantitative, hCG, quantitative, Lab Routine Amenorrhea Ordered: 06/12/2023 [facility] Comment on above: Ordered: 06/12/2023 Hemoglobin A1c measurement Hemoglobin A1c Lab Routine Amenorrhea Ordered: 06/12/2023 [facility] Comment on above: Ordered: 06/12/2023 Prolactin Prolactin Lab Ro utine Amenorrhea Ordered: 06/12/2023 [facility] Comment on above: Ordered: 06/12/2023 Thyrotropin [Units/volume] in Serum or Plasma TSH Lab Routine Amenorrhea Ordered: 06/12/2023 [facility] Work Phone: Comment on above: Ordered: 06/12/2023 [facility] Payers Date Payer Category Payer Medicaid [id number] 1992 Unknown [id number] 2.16.84 [id number] 1992 Unknown [id number] 2.16.84 0.1.271777.3.579.2.593 1992 Unknown [id number] 2.16.84 0.1.120716.3.579.2.593 1992 Unknown [id number] 2.16.84 0.1.203961.3.579.2.593 1992 Unknown [id number] 2.16.84 0.1.736933.3.579.2.593 1992 Unknown [id number] 2.16.84 0.1.998745.3.579.2.593 1992 Unknown [id number] 2.16.84 0.1.911199.3.579.2.593 1992 Unknown [id number] 2.16.84 0.1.957383.3.579.2.593 1992 Unknown [id number] 2.16.84 0.1.695720.3.579.2.593 1992 Unknown [id number] 2.16.84 0.1.629537.3.579.2.593 1992 Unknown [id number] 2.16.84 0.1.193533.3.579.2.593 1992 Unknown [id number] 2.16.84 0.1.386129.3.579.2.593 1992 Unknown [id number] 2.16.84 0.1.300041.3.579.2.593 1992 Unknown [id number] 2.16.84 0.1.533903.3.579.2.593 1992 Unknown [id number] 2.16.84 0.1.286344.3.579.2.593 1992 Unknown [id number] 2.16.84 0.1.695043.3.579.2.1259 1992 Unknown [id number] 2.16.84 0.1.151120.3.579.2.1259 1959 Unknown [id number] Social History Date Type Detail Facility Start: 04-11-2022 End: 09-23-2022 Tobacco smoking status GAIS Smokes tobacco daily [facility] History of tobacco use Cigarette Smoker C [facility] Start: 04-11-2022 End: 11-02-2022 Cigarettes smoked current (pack per day) - Reported 1 [facility] Start: 04-11-2022 End: 09-23-2022 Tobacco use and exposure Smokeless tobacco non-user [facility] Start: 04-11-2022 End: 05-04-2022 Alcohol intake Current drinker of alcohol (finding) [facility] Start: 04-11-2022 Alcohol Comment socially [facility] Start: 1990 Sex Assigned At Not on file C [facility] Start: 05-04-2022 End: 11-02-[address] [facility] Adult Depression Screening Assessment 0 [facility] Start: 10-03-2022 Alcohol Comment caffeine intak e: 1-2 cups per day [facility] Start: 1990 Sex Assigned At Female [facility] Start: 10-04-2022 Gender identity Identifies as female gender (finding) [facility] Clinical Notes 03-07-2022 to 08-14-2023 Telephone Encounter [...] Danna Pitts RN documented in this encounter [facility] 07-19-2023 Miscellaneous Notes Pt called to request labs sent to [facility]. Faxed to central scheduling. Leonora Sal RN documented in this encounter 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 Resolved Ambulatory Problems Diagnosis Date Noted Acid reflux 09/23/2022 Amenorrhea 09/23/2022 Lesion of palate 09/23/2022 depression (CMS/HCC) 09/23/2022 Thyroid mass ([facility]/HCC) 09/23/2022 Vaginal delivery 09/23/2022 Past Medical History: Diagnosis Date Chronic maxillary sinusitis Diarrhea Ear problems Family planning Fatigue Fibroadenoma of breast, right Foreign body sensation in throat History of miscarriage LPRD (laryngopharyngeal reflux disease) Obesity Papilloma of palate PCOS (polycystic ovarian syndrome) Thyroid nodule ([facility]/HCC) Family History Problem Relation Name Age of [...] Martine Jauregui DO documented in this encounter [facility] 02-14-2023 Miscellaneous Notes Images from the original note were not included. Patient is scheduled for appointments [facility]; Roxana Genao 4 months with labs. Orders have been placed in [facility]. documented in this encounter [facility] 02-08-2023 Note HNO ID: [id number] Author: Arslan Garcia MD Service: ? Author [...] Time Spent: 6 minutes Arslan Garcia MD [facility] 11-09-2022 Miscellaneous Notes Images from the original note were not included. Patient is called and scheduled. Arslan Gacria MD [facility]; Roxana Genao 8 weeks with labs, orders placed, thank you documented in this encounter [facility] 11-09-2022 Note HNO ID: [id number] Author: Arslan Garcia MD Service: ? Author [...] Time Spent: 6 minutes Arslan Garcia MD [facility] 07-17-2022 Miscellaneous Notes Appointment has been changed to phone appt. Tj Funez Pt called in requesting to be switched to a phone visit tomorrow. Her kids are on spring break and a couple of them are sick. Labs have been done and resulted. PSS- please change to phone visit for tomorrow. Danna Pitts RN documented in this encounter [facility] 05-04-2022 History of Present illness Narrative Radiation Oncology - FollowupNote PATIENT NAME: Amanda Cortez PATIENT : 1990 DIAGNOSIS: Thyroid cancer, classic papillary thyroid carcinoma, status post total thyroidectomy and right neck exploration on 03/07/2022, stage I [id number]. HPI: Patient returns after further work-up and [...] Take by mouth. OTC PRODUCT Supplement by [email or web address] for breast feeding levothyroxine (SYNTHROID) 112 mcg [...] and right neck exploration on 03/07/2022, stage [id number]. Patient does have significant thyroglobulin antibody however [...] for this encounter. documented in this encounter [facility] 04-25-2022 Miscellaneous Notes Patient had been rescheduled. Tj Funez Images from the original note were not included. Called patient to reschedule, LMOV. MD Jessica Jenkins [facility]; Tj Funez Unable to reach please reschedule documented in this encounter [facility] 04-11-2022 Nurse Note Amanda Cortez presents in office today for: Lab Draw during Office Visit . Ordering Provider: Felipe Garcia M.D. Test (s) ordered: TG Method for obtaining blood: Phlebotomy was performed, accessing right antecubital vein. Needle removed intact. Dressing secured. Patient denies discomfort, dizziness, light-headedness or weakness and left the department without assist. Danna Pitts RN documented in this encounter [facility] 03-07-2022 Note OPERATIVE NOTE OPERATION DATE: [...] the recovery room in good condition. [facility] Evaluation note Diagnosis Thyroid cancer (HCC)- Primary Malignant neoplasm of [facility] gland [facility] ([facility])- Primary Malignant neoplasm of thyroid gland [facility] Missed menses Amenorrhea Absence of menstruation documented in this encounter [facility]* Diagnosis Thyroid cancer (HCC)- Primary Malignant neoplasm of thyroid gland documented in this encounter [facility] Summary Purpose Family History No Family History [...] or prosecute any alcohol or drug abuse patient.[facility] the event this information is protected by the Federal Confidentiality of Alcohol and Drug Abuse Patient Records regulations: The Federal rules restrict any use of the information to criminally investigate or prosecute any alcohol or drug abuse patient.[facility] the event this information is protected by the Federal Confidentiality of Alcohol and Drug Abuse Patient Records regulations: The Federal rules restrict any use of the information to criminally investigate or prosecute any alcohol or drug abuse patient.[facility] the event this information is protected by the Federal Confidentiality of Alcohol and Drug Abuse Patient Records regulations: The Federal rules restrict any use of the information to criminally investigate or prosecute any alcohol or drug abuse patient.[facility] the event this information is protected by the Federal Confidentiality of Alcohol and Drug Abuse Patient Records regulations: The Federal rules restrict any use of the information to criminally investigate or prosecute any alcohol or drug abuse patient.[facility] the event this information is protected by the Federal Confidentiality of Alcohol and Drug Abuse Patient Records regulations: The Federal rules restrict any use of the information to criminally investigate or prosecute any alcohol or drug abuse patient.[facility] the event this information is protected by the Federal Confidentiality of Alcohol and Drug Abuse Patient Records regulations: The Federal rules restrict any use of the information to criminally investigate or prosecute any alcohol or drug abuse patient.[facility] the event this information is protected by the Federal Confidentiality of Alcohol and Drug Abuse Patient Records regulations: The Federal rules restrict any use of the information to criminally investigate or prosecute any alcohol or drug abuse patient.[facility] the event this information is protected by the Federal Confidentiality of Alcohol and Drug Abuse Patient Records regulations: The Federal rules restrict any use of the information to criminally investigate or prosecute any alcohol or drug abuse patient.[facility] Reason for Visit (unrecogniz ed section and content) Reason Comments Phlebotomy Reason Comments Thyroid Cancer Follow up Reason Comments Missed Appointment Reason Comments Phone Visit Reason Comments Appointment Confirmation Reason Comments Amenorrhea Reason Comments Orders Reason Comments Future Appointment Care Teams (unrecognized sec tion and content) [employer] Tailer Relationship Specialty Start Date End Date Sara Medellin MD [address] [place] [address] PCP - General Family Medicine 04/11/22 [employer] Tailer Relationship Specialty Start Date End Date Sara Medellin MD [address] [place] [address] PCP - General Family Medicine 04/11/22 Resaw Tailer Relationship Specialty Start Date End Date Sara Medellin MD [address] [place] [address] PCP - General Family Medicine 04/11/22 Resaw Tailer Relationship Specialty Start Date End Date Sara Medellin MD PCP - General Family Medicine 04/11/22 Resaw Tailer Relationship Specialty Start Date End Date Sara Medellin MD PCP - General Family Medicine 04/11/22 Resaw Tailer Relationship Specialty Start Date End Date Sara Medellin MD [address] [place] [address] PCP - General Family Medicine 10/03/22 Resaw Tailer Relationship Specialty Start Date End Date Sara Medellin MD PCP - General Family Medicine 04/11/22 [employer]aw Tailer Relationship Specialty Start Date End Date Sara Medellin MD PCP - General Family Medicine 04/11/22 INFORMATION SOURCE (unrecogn ized section and content) DATE CREATED AUTHOR 09/02/2022 Carlos Eisenberg [facility] DATE CREATED AUTHOR AUTHOR'S ORGANIZ ATION 08/23/2023 [facility] DATE CREATED AUTHOR AUTHOR'S ORGANIZ ATION 09/16/2023 [facility] EPIC FOR RECORDS PERTAINING TO PATIENTS WHO ARE [...] BE BASED ON THE PRIMARY CLINICAL RECORDS. [facility]. provides no warranty or guarantee of the accuracy or completeness of information in this document.
== END 2023-09-25 12:57 | disposition home or self-care (01) ==
PROVIDERS: Emergency Provider Emergency Medicine; PCP Family Medicine
DX: O99.611 Diseases of the digestive system complicating pregnancy, first trimester (principal); K02.9 Dental caries, unspecified; Z3A.08 8 weeks gestation of pregnancy
CPT/HCPCS: 99283

== ENCOUNTER 2023-10-10 14:33 | Outpatient (OUT) | payer OTHER, SELFPAY ==
--- OUTSIDE RECORDS SUMMARY | 2023-10-10 14:41 | XMS_ITS | CCD ---
Author Organization [facility] Care Team Providers Care Automation Architect Name Role Phone Sara Medellin MD Primary Care Provider [phone] RAIZA, DR GUERRA Consulting Unavailable THEO ., [...] Unavailable HOY ., DR RUIZ Admitting Unavailable [place], DR SHAILESH Clark Consulting Unavailable TIMMIS, DR [...] Care Unavailable HARRY, DHRUV Consulting Unavailable HARRY, HDRUV Attending Unavailable HARRY, DHRUV Admitting Unavailable HOY ., DR RUIZ Primary Care Unavailable HARRY, DHRUV Consulting Unavailable HARRY, DHRUV Attending Unavailable HARRY, DHRUV Admitting Unavailable HOY ., DR RUIZ Primary Care Unavailable Sara Medellin MD Primary Care Provider [phone] Sara Medellin MD Primary Care Provider [phone] SARA MEDELLIN Primary Care Unavailable Arslan GARCIA [...] Shortness of Breath, Anaphylaxis [facility] (10 sources) Penicillins; Translations: [PENICILLINS] Drug Allergy 2 Hives, Shortness of Breath [facility] (2 sources) Cefaclor Drug Allergy 4 [facility] (2 sources) Penicillins Drug allergy (disorder) 4 [facility] (2 sources) Penicillin G sodium Allergy [...] on above: Take 1 capsule by mo [facility] once daily. 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 AMANDA CORTEZ ([id number]) 1990 F Date Time Provider Department 07/19/23 LEONORA SAL During your visit today, we recorded the following information about you: Leonora Sal RN 07/19/2023 10:42 AM Signed Pt called to request labs sent to [facility]. Faxed to central scheduling. Leonora Sal RN [...] Date: 07/19/2023 (None) Encounter Status:Closed by LEONORA ASL on 07/19/23 [facility] 06-25-2023 [facility] Telephone (ALONDRAA) AMANDA CORTEZ ([id number]) 1990 F Date Time Provider Department 06/25/23 [...] Signed Patients lab orders were sent to [facility] and I scheduled her a phone [...] cancer (HCC) [C73] Order(s):T4/THYROXINE [SQT4] Order #: [id number] FUTURE THYROID STIMULATING HORMONE [SQTSH] Order #: [id number] FUTURE THYROGLOBULIN, SERUM WITH REFLEX TO IA OR LC-MS/MS [SQTHYRORF] Order #: [id number] FUTURE Prescriptions as of 08/23/2023 - levothyroxine [...] Encounter Status:Closed by Arslan GARCIA on 08/15/23 [facility] AMANDA CORTEZ ([id number]) 1990 F Date Time Provider Department 02/14/23 [facility] During your visit today, we recorded the following information about you: Roxana Genao 02/14/2023 9:54 AM Signed Patient is scheduled for appointments Arslan Garcia MD [facility]; Roxana Genao 4 months with labs. Orders have been placed in [facility]. Allergies As of Date: 02/14/2023 Noted Allergy Reaction CECLOR (CEFACLOR) 04/11/2022 4 - Hives 12 - Shortness of Breath PENICILLINS 04/11/2022 4 - Hives 12 - Shortness of Breath Date Reviewed: 05/04/2022 Reviewed by: Jerman Daisy - Fully Assessed Reason for Visit: Appointment Confirmation [2159] Prescriptions as of 02/14/2023 - levothyroxine (SYNTHROID) [...] Status:Closed by ROXANA GENAO on 02/14/23 Normal [facility] CBC W Auto Differential pane l (Bld)on 02-01-2023 Basophils (Bld) [#/Vol] 0.04 10*3/uL Normal <0.11 [facility] Comment on above: Order Comment: Speci men Type: BLOOD SPECIMEN Ordering Facility: [facility] Address: [address] [place] [address] Performed By: #### 5 7021-8 #### [facility] CLIA [id number] [address] [place] [address] 55231 Basophils/100 WBC (Bld) 0.5 % Normal [facility] Comment on above: Order Comment: Speci men Type: BLOOD SPECIMEN Ordering Facility: [facility] Address: [address] [place] [address] Performed By: #### 5 7021-8 #### [facility] CLIA [id number] [address] [place] [address] 17688 Differential cell count method Nom (Bld) Auto Normal [facility] Comment on above: Order Comment: Speci men Type: BLOOD SPECIMEN Ordering Facility: [facility] Address: [address] [place] [address] Performed By: #### 5 7021-8 #### [facility] CLIA [id number] [address] [place] [address] 94201 Eosinophils (Bld) [#/Vol] 0.19 10*3/uL Normal <0.46 [facility] Comment on above: Order Comment: Speci men Type: BLOOD SPECIMEN Ordering Facility: [facility] Address: [address] [place] [address] Performed By: #### 5 7021-8 #### [facility] CLIA [id number] [address] [place] [address] 45008 Eosinophils/100 WBC (Bld) 2.5 % Normal [facility] Comment on above: Order Comment: Speci men Type: BLOOD SPECIMEN Ordering Facility: [facility] Address: [address] [place] [address] Performed By: #### 5 7021-8 #### [facility] CLIA [id number] [address] [place] [address] 89610 Erythrocyte distribution width (RBC) [Ratio] 13.3 % Normal 11.5-15.0 [facility] Comment on above: Order Comment: Speci men Type: BLOOD SPECIMEN Ordering Facility: [facility] Address: [address] [place] [address] Performed By: #### 5 7021-8 #### [facility] CLIA [id number] [address] [place] [address] 59943 Hematocrit (Bld) [Volume fraction] 47.7 % High 36.0-46.0 [facility] Comment on above: Order Comment: Speci men Type: BLOOD SPECIMEN Ordering Facility: [facility] Address: [address] [place] [address] Performed By: #### 5 7021-8 #### [facility] CLIA [id number] [address] [place] [address] 68445 Hemoglobin (Bld) [Mass/Vol] 15.6 g/dL High 11.5-15.5 [facility] Comment on above: Order Comment: Speci men Type: BLOOD SPECIMEN Ordering Facility: [facility] Address: [address] [place] [address] Performed By: #### 5 7021-8 #### [facility] CLIA [id number] [address] [place] [address] 44671 Immature granulocytes (Bld) [#/Vol] 0.03 10*3/uL Normal <0.10 [facility] Comment on above: Order Comment: Speci men Type: BLOOD SPECIMEN Ordering Facility: [facility] Address: [address] [place] [address] Performed By: #### 5 7021-8 #### [facility] CLIA [id number] [address] [place] [address] Immature granulocytes/100 WBC (Bld) 0.4 % Normal [facility] Comment on above: Order Comment: Speci men Type: BLOOD SPECIMEN Ordering Facility: [facility] Address: [address] [place] [address] Performed By: #### 5 7021-8 #### [facility] CLIA [id number] [address] [place] [address] 40736 Lymphocytes (Bld) [#/Vol] 2.30 10*3/uL Normal 1.00-4.00 [facility] Comment on above: Order Comment: Speci men Type: BLOOD SPECIMEN Ordering Facility: [facility] Address: [address] [place] [address] Performed By: #### 5 7021-8 #### [facility] CLIA [id number] [address] [place] [address] 95528 Lymphocytes/100 WBC (Bld) 29.7 % Normal [facility] Comment on above: Order Comment: Speci men Type: BLOOD SPECIMEN Ordering Facility: [facility] Address: [address] [place] [address] Performed By: #### 5 7021-8 #### [facility] CLIA [id number] [address] [place] [address] 74430 MCH (RBC) [Entitic mass] 28.8 pg Normal 26.0-34.0 [facility] Comment on above: Order Comment: Speci men Type: BLOOD SPECIMEN Ordering Facility: [facility] Address: [address] [place] [address] Performed By: #### 5 7021-8 #### [facility] CLIA [id number] [address] [place] [address] 09678 MCHC (RBC) [Mass/Vol] 32.7 g/dL Normal 30.5-36.0 [facility] Comment on above: Order Comment: Speci men Type: BLOOD SPECIMEN Ordering Facility: [facility] Address: [address] [place] [address] Performed By: #### 5 7021-8 #### [facility] CLIA [id number] [address] [place] [address] 58263 MCV (RBC) [Entitic vol] 88.2 fL Normal 80.0-100.0 [facility] Comment on above: Order Comment: Speci men Type: BLOOD SPECIMEN Ordering Facility: [facility] Address: [address] [place] [address] Performed By: #### 5 7021-8 #### [facility] CLIA [id number] [address] [place] [address] 12270 Monocytes (Bld) [#/Vol] 0.49 10*3/uL Normal <0.87 [facility] Comment on above: Order Comment: Speci men Type: BLOOD SPECIMEN Ordering Facility: [facility] Address: [address] [place] [address] Performed By: #### 5 7021-8 #### [facility] CLIA [id number] [address] [place] [address] 41089 Monocytes/100 WBC (Bld) 6.3 % Normal [facility] Comment on above: Order Comment: Speci men Type: BLOOD SPECIMEN Ordering Facility: [facility] Address: [address] [place] [address] Performed By: #### 5 7021-8 #### [facility] CLIA [id number] [address] [place] [address] 71614 Neutrophils (Bld) [#/Vol] 4.70 10*3/uL Normal 1.45-7.50 [facility] Comment on above: Order Comment: Speci men Type: BLOOD SPECIMEN Ordering Facility: [facility] Address: [address] [place] [address] Performed By: #### 5 7021-8 #### [facility] CLIA [id number] [address] [place] [address] 98773 Neutrophils/100 WBC (Bld) 60.6 % Normal [facility] Comment on above: Order Comment: Speci men Type: BLOOD SPECIMEN Ordering Facility: [facility] Address: [address] [place] [address] Performed By: #### 5 7021-8 #### [facility] CLIA [id number] [address] [place] [address] Nucleated RBC (Bld) [#/Vol] 10*3/uL Normal <0.01 [facility] Comment on above: Order Comment: Speci men Type: BLOOD SPECIMEN Ordering Facility: [facility] Address: [address] [place] [address] Performed By: #### 5 7021-8 #### [facility] CLIA [id number] [address] [place] [address] 34191 Nucleated RBC/100 WBC (Bld) [Ratio] 0.0 /100 WBC Normal [facility] Comment on above: Order Comment: Speci men Type: BLOOD SPECIMEN Ordering Facility: [facility] Address: [address] [place] [address] Performed By: #### 5 7021-8 #### [facility] CLIA [id number] [address] [place] [address] 93187 Platelet mean volume (Bld) [Entitic vol] 9.6 fL Normal 9.0-12.7 [facility] Comment on above: Order Comment: Speci men Type: BLOOD SPECIMEN Ordering Facility: [facility] Address: [address] [place] [address] Performed By: #### 5 7021-8 #### [facility] CLIA [id number] [address] [place] [address] 21374 Platelets (Bld) [#/Vol] 248 10*3/uL Normal 150-400 [facility] Comment on above: Order Comment: Speci men Type: BLOOD SPECIMEN Ordering Facility: [facility] Address: [address] [place] [address] Performed By: #### 5 7021-8 #### [facility] CLIA [id number] [address] [place] [address] 64476 RBC (Bld) [#/Vol] 5.41 10*6/uL High 3.90-5.20 [facility] Comment on above: Order Comment: Speci men Type: BLOOD SPECIMEN Ordering Facility: [facility] Address: [place] [address] Performed By: #### 5 7021-8 #### [facility] CLIA [id number] [address] [place] [address] 37226 WBC (Bld) [#/Vol] 7.75 10*3/uL Normal 3.70-11.00 [facility] Comment on above: Order Comment: Speci men Type: BLOOD SPECIMEN Ordering Facility: [facility] Address: [address] [place] [address] Performed By: #### 5 7021-8 #### [facility] CLIA [id number] [address] [place] [address] 32552 T3 SerPl-mCncon 02-01-2023 T3 [Mass/Vol] 123 ng/dL Normal 79-165 [facility] Comment on above: Order Comment: Speci men Type: BLOOD SPECIMEN Ordering Facility: [facility] Address: [address] [place] [address] Performed By: #### 3 053-6, 3016-3, 3026-2 #### [facility] CLIA [id number] [facility] [place] [address] [place] T4 SerPl-mCncon 02-01-2023 T4 [Mass/Vol] 11.9 ug/dL High 5.5-10.2 [facility] Comment on above: Order Comment: Speci men Type: BLOOD SPECIMEN Ordering Facility: [facility] Address: [address] [place] [address] Performed By: #### 3 053-6, 3016-3, 3026-2 #### [facility] CLIA [id number] [address] [place] [address] [place] THYROGLOBULIN BY MASS SPECTR OMETRYon 02-01-2023 THYROGLOBULIN, LC-MS/MS <0.5 Low 1.3-31.8 [facility] Comment on above: Order Comment: Chel iverson Type: BLOOD SPECIMEN Ordering Facility: [facility] Address: [address] [place] [address] Result Comment: Results obtained with different test [...] developed and its performance characteristics determined by [facility]. It has not been cleared or approved by the [place] Food and Drug Administration. This test was performed in a CLIA certified laboratory and is intended for clinical purposes. Performed By: [facility] [address] [place] [address] [employer]: Prem Willis MD, PhD CLIA Number: [id number] Performed By: #### T [facility] #### [facility] CLIA [id number] [address] [place] [address] TSH Banner 02-01-2023 TSH Qn 0.960 m[IU]/L Normal 0.270-4.200 [facility] Comment on above: Order Comment: Chel iverson Type: BLOOD SPECIMEN Ordering Facility: [facility] Address: [place] [address] Result Comment: If t he patient is , TSH reference range varies by gestational period: First Trimester (weeks 9-12): 0.180-2.990 mIU/L Second Trimester: 0.110-3.980 mIU/L Third Trimester: 0.480-4.710 mIU/L Suman Graf et al. A Practical Approach for the Verifications and Determination of Site- and Trimester-Specific Reference Intervals for Thyroid Function tests in . Thyroid, 2019:29:3:412-420. Rajesh Holman, et al. 2017 Guidelines of the [place] Thyroid Association for the Diagnosis and Management of Thyroid Disease during and the . Thyroid, 2017:27:3:315-389. Performed By: #### 3 053-6, 3016-3, 3026-2 #### [facility] CLIA [id number] [address] [place] [address] [place] CNPMaru 11-09-2022 CNPN Telephone (NCCAP) AMANDA CORTEZ ([id number]) 1990 F Date Time Provider Department 11/09/22 Arslan GARCIA During your visit today, we recorded the following information about you: Roxana Kern Sec 11/09/2022 3:40 PM Signed Patient is called and scheduled. Arslan Garcia MD [facility] Nurse [place]; Roxana Genao 8 weeks with labs, orders [...] Status:Closed by ROXANA GENAO on 11/09/22 Normal [facility] T3 SerPl-mCncon 11-02-2022 T3 [Mass/Vol] 84 ng/dL Normal 79-165 [facility] Comment on above: Order Comment: Chel iverson Type: BLOOD SPECIMEN Ordering Facility: [facility] Address: [address] [place] [address] Performed By: #### 3 016-3, 3053-6, 3026-2 #### [facility] CLIA [id number] [address] [place] [address] [place] T4 SerPl-mCncon 11-02-2022 T4 [Mass/Vol] 8.3 ug/dL Normal 5.5-10.2 [facility] Comment on above: Order Comment: Chel iverson Type: BLOOD SPECIMEN Ordering Facility: [facility] Address: [address] [place] [address] Performed By: #### 3 016-3, 3053-6, 3026-2 #### [facility] CLIA [id number] [address] [place] [address] [place] TSH SerPl-aCncon 11-02-2022 TSH Qn 23.200 m[IU]/L High 0.270-4.200 [facility] Comment on above: Order Comment: Chel iverson Type: BLOOD SPECIMEN Ordering Facility: [facility] Address: [address] [place] [address] Result Comment: If t he patient is , TSH reference range varies by gestational period: First Trimester (weeks 9-12): 0.180-2.990 mIU/L Second Trimester: 0.110-3.980 mIU/L Third Trimester: 0.480-4.710 mIU/L Suman Graf et al. A Practical Approach for the Verifications and Determination of Site- and Trimester-Specific Reference Intervals for Thyroid Function tests in . Thyroid, 2019:29:3:412-420. Rajesh Holman, et al. 2017 Guidelines of the [place] Thyroid Association for the Diagnosis and Management of Thyroid Disease during and the . Thyroid, 2017:27:3:315-389. Performed By: #### 3 016-3, 3053-6, 3026-2 #### [facility] CLIA [id number] [address] [place] [address] OF [facility] CNPMaru 09-26-2022 CNPN Telephone (RADTSA) AMANDA CORTEZ ([id number]) 1990 F Date Time Provider Department 09/26/22 [...] I called this in the medicine [facility]. Recommend canceling her October 12 appointment and [...] (HCC) [C73] Order(s):TSH BLD [SQTSH] Order #: [id number] FUTURE T3 BLD [SQT3] Order #: [id number] FUTURE T4/THYROXINE BLOOD [SQT4] Order #: [id number] FUTURE levothyroxine (SYNTHROID) 150 mcg tabletTake 1 [...] Status:Closed by Arslan GARCIA on 09/26/22 Normal [facility] T4 SerPl-mCncon 09-14-2022 T4 [Mass/Vol] 4.5 ug/dL Low 5.5-10.2 [facility] Comment on above: Order Comment: Speci men Type: BLOOD SPECIMEN Ordering Facility: [facility] Address: [address] [place] [address] Performed By: #### 3 026-2, 3016-3 #### [facility] CLIA [id number] [address] [place] [address] [place] TSH SerPl-aCncon 09-14-2022 TSH Qn 89.200 m[IU]/L High 0.270-4.200 [facility] Comment on above: Order Comment: Speci men Type: BLOOD SPECIMEN Ordering Facility: [facility] Address: [address] [place] [address] Result Comment: If t he patient is , TSH reference range varies by gestational period: First Trimester (weeks 9-12): 0.180-2.990 mIU/L Second Trimester: 0.110-3.980 mIU/L Third Trimester: 0.480-4.710 mIU/L Suman Graf et al. A Practical Approach for the Verifications and Determination of Site- and Trimester-Specific Reference Intervals for Thyroid Function tests in . Thyroid, 2019:29:3:412-420. Rajesh E, et al. 2017 Guidelines of the [place] Thyroid Association for the Diagnosis and Management of Thyroid Disease during and the . Thyroid, 2017:27:3:315-389. Performed By: #### 3 026-2, 3016-3 #### [facility] CLIA [id number] [address] [place] [address] [place] PREG QUANT HCGon 08-17-2022 HCG QUANT 1 mIU/mL Normal [facility] Comment on above: Performed By: #### P REGQNT #### [facility] [address] [place] [address] Dr. Prashant Kang HCG RANGE SEE BELOW Normal [facility] Comment on above: Result Comment: 5-50 0.2-1 WEEK 50-500 1-2 WEEKS 100-5,000 2-3 WEEKS 500-10,000 3-4 WEEKS 1,000-50,000 4-5 WEEKS 10,000-100,000 5-6 WEEKS 15,000-200,000 6-8 WEEKS 10,000-100,000 2-3 MONTHS Performed By: #### P REGQNT #### [facility] [address] [place] [address] Dr. Prashant Kang PREG QUANT HCGon 07-04-2022 HCG QUANT <1 Normal [facility] Comment on above: Performed By: #### P REGQNT #### [facility] [address] [place] [address] Dr. Prashant Kang HCG RANGE SEE BELOW Normal [facility] Comment on above: Result Comment: 5-50 0.2-1 WEEK 50-500 1-2 WEEKS 100-5,000 2-3 WEEKS 500-10,000 3-4 WEEKS 1,000-50,000 4-5 WEEKS 10,000-100,000 5-6 WEEKS 15,000-200,000 6-8 WEEKS 10,000-100,000 2-3 MONTHS Performed By: #### P REGQNT #### [facility] [address] [place] [address] Dr. Prashant Kang PREG QUANT HCGon 05-16-2022 HCG QUANT <1 Normal [facility] Comment on above: Performed By: #### P TT, PT #### [facility] [address] [place] [address] Dr. Prashant Kang HCG RANGE SEE BELOW Normal [facility] Comment on above: Result Comment: 5-50 0.2-1 WEEK 50-500 1-2 WEEKS 100-5,000 2-3 WEEKS 500-10,000 3-4 WEEKS 1,000-50,000 4-5 WEEKS 10,000-100,000 5-6 WEEKS 15,000-200,000 6-8 WEEKS 10,000-100,000 2-3 MONTHS Performed By: #### P TT, PT #### [facility] [address] [place] [address] Dr. Prashant Kang PREG QUANT HCGon 05-08-2022 HCG QUANT <1 Normal [facility] Comment on above: Performed By: #### P REGQNT #### [facility] [address] [place] [address] Dr. Prashant Kang HCG RANGE SEE BELOW Normal [facility] Comment on above: Result Comment: 5-50 0.2-1 WEEK 50-500 1-2 WEEKS 100-5,000 2-3 WEEKS 500-10,000 3-4 WEEKS 1,000-50,000 4-5 WEEKS 10,000-100,000 5-6 WEEKS 15,000-200,000 6-8 WEEKS 10,000-100,000 2-3 MONTHS Performed By: #### P REGQNT #### [facility] [address] [place] [address] Dr. Prashant Kang CALCIUMon 03-08-2022 Calcium [Mass/Vol] 8.6 mg/dL Normal 8.5-10.1 [facility] Comment on above: Performed By: #### C A #### [facility] [address] [place] [address] Dr. Prashant Kang CALCIUMon 03-07-2022 Calcium [Mass/Vol] 8.4 mg/dL Critically low 8.5-10.1 [facility] Comment on above: Performed By: #### C A #### [facility] [address] [place] [address] Dr. Prashant Kang PREG HCG QUALon 03-07-2022 , QUAL Negative Normal NEGATIVE [facility] Comment on above: Performed By: #### P REG #### [facility] [address] [place] [address] Dr. Prashant Kang Covid-19 PCR (CVDTB)on SARS-CoV-2 (COVID-19) RNA DENEEN+probe Ql (Unsp spec) Not detected Normal NOT DETECTED [facility] Comment on above: Result Comment: This test is not yet approved or cleared by the [place] FDA. When there are no FDA-approved or cleared tests available, and other criteria are met, FDA can make tests available under an emergency access mechanism called an Emergency Use Authorization (EUA). The EUA for this test is supported by the [place] of Health and Human Service's (HHS's) declaration [...] SARS-CoV-2. Performed By: #### C VDTB #### [facility] [address] [place] [address] Dr. Prashant Kang CALCIUMon 02-24-2022 Calcium [Mass/Vol] 8.8 mg/dL Normal 8.5-10.1 [facility] Comment on above: Performed By: #### P TT, PT #### [facility] [address] [place] [address] Dr. Prashant Kang CBC AUTO DIFFon 02-24-2022 BASO # 0.0 103/ul Normal 0.0-0.1 [facility] Comment on above: Performed By: #### P TT, PT #### [facility] [address] [place] [address] Dr. Prashant Kang Basophils/100 WBC (Bld) 0.3 % Normal 0.2-2.0 [facility] Comment on above: Performed By: #### P TT, PT #### [facility] [address] [place] [address] Dr. Prashant Kang EO # 0.1 103/ul Normal 0.0-0.7 [facility] Comment on above: Performed By: #### P TT, PT #### [facility] [address] [place] [address] Dr. Prashant Kang Eosinophils/100 WBC (Bld) 1.5 % Normal 0.9-7.0 [facility] Comment on above: Performed By: #### P TT, PT #### [facility] [address] [place] [address] Dr. Prashant Kang Erythrocyte distribution width (RBC) [Ratio] 13.8 % Normal 11.0-15.0 [facility] Comment on above: Performed By: #### P TT, PT #### [facility] [address] [place] [address] Dr. Prashant Kang Hematocrit (Bld) [Volume fraction] 45.5 % Normal 36.0-48.0 [facility] Comment on above: Performed By: #### P TT, PT #### [facility] [address] [place] [address] Dr. Prashant Kang Hemoglobin (Bld) [Mass/Vol] 14.6 g/dL Normal 12.0-16.0 [facility] Comment on above: Performed By: #### P TT, PT #### [facility] [address] [place] [address] Dr. Prashant Kang IG # 0.02 10e3/ul Normal 0.00-0.03 [facility] Comment on above: Performed By: #### P TT, PT #### [facility] [address] [place] [address] Dr. Prashant Kang IG % 0.3 % Normal 0.0-0.5 [facility] Comment on above: Performed By: #### P TT, PT #### [facility] [address] [place] [address] Dr. Prashant Kang LYMPH # 1.6 103/ul Normal 1.2-3.8 [facility] Comment on above: Performed By: #### P TT, PT #### [facility] [address] [place] [address] Dr. Prashant Kang Lymphocytes/100 WBC (Bld) 23.5 % Normal 20.5-60.0 [facility] Comment on above: Performed By: #### P TT, PT #### [facility] [address] [place] [address] Dr. Prashant Kang MANUAL DIFF REQ NO Normal [facility] Comment on above: Performed By: #### P TT, PT #### [facility] [address] [place] [address] Dr. Prashant Kang MCH (RBC) [Entitic mass] 26.5 pg Critically low 26.7-34.0 [facility] Comment on above: Performed By: #### P TT, PT #### [facility] [address] [place] [address] Dr. Prashant Kang MCHC (RBC) [Mass/Vol] 32.1 g/dL Normal 29.9-35.2 [facility] Comment on above: Performed By: #### P TT, PT #### [facility] [address] [place] [address] Dr. Prashant Kang MCV (RBC) [Entitic vol] 82.7 fL Normal 81.0-99.0 [facility] Comment on above: Performed By: #### P TT, PT #### [facility] [address] [place] [address] Dr. Prashant Kang MONO # 0.5 103/ul Normal 0.3-0.8 [facility] Comment on above: Performed By: #### P TT, PT #### [facility] [address] [place] [address] Dr. Prashant Kang Monocytes/100 WBC (Bld) 7.5 % Normal 1.7-12.0 [facility] Comment on above: Performed By: #### P TT, PT #### [facility] [address] [place] [address] Dr. Prashant Kang NEUT # 4.6 103/ul Normal 1.4-6.5 [facility] Comment on above: Performed By: #### P TT, PT #### [facility] [address] [place] [address] Dr. Prashant Kang Neutrophils/100 WBC (Bld) 66.9 % Normal 43.0-75.0 [facility] Comment on above: Performed By: #### P TT, PT #### [facility] [address] [place] [address] Dr. Prashant Kang Platelet mean volume (Bld) [Entitic vol] 9.9 fL Normal 9.5-13.5 [facility] Comment on above: Performed By: #### P TT, PT #### [facility] [address] [place] [address] Dr. Prashant Kang PLT 239 103/ul Normal 150-450 [facility] Comment on above: Performed By: #### P TT, PT #### [facility] [address] [place] [address] Dr. Prashant Kang RBC 5.50 106/ul Critically high 4.20-5.40 [facility] Comment on above: Performed By: #### P TT, PT #### [facility] [address] [place] [address] Dr. Prashant Kang WBC 6.8 103/ul Normal 4.0-11.0 [facility] Comment on above: Performed By: #### P TT, PT #### [facility] [address] [place] [address] Dr. Prashant Kang MAGNESIUMon 02-24-2022 Magnesium [Mass/Vol] 2.0 mg/dL Normal 1.8-2.4 [facility] Comment on above: Performed By: #### P TT, PT #### [facility] [address] [place] [address] Dr. Prashant Kang PHOSPHORUSon 02-24-2022 Phosphate [Mass/Vol] 3.3 mg/dL Normal 2.6-4.7 [facility] Comment on above: Performed By: #### P TT, PT #### [facility] [address] [place] [address] Dr. Prashant Kang PROTIMEon 02-24-2022 INR Coag (PPP) [Relative time] 1.01 {INR} Normal [facility] Comment on above: Performed By: #### P TT, PT #### [facility] [address] [place] [address] Dr. Prashant Kang INR GUIDELINES SEE BELOW Normal [facility] Comment on above: Result Comment: SALIMA RED INR: 2.0 - 3.0 CONDITIONS NOT LISTED BELOW 2.5 - 3.5 FOR PROSTHETIC HEART VALVE REPLACEMENT 2.5 - 3.5 RECURRENT THROMBOSIS Performed By: #### P TT, PT #### [facility] [address] [place] [address] Dr. Prashant Kang PT Coag (PPP) [Time] 10.9 s Normal 9.0-11.6 [facility] Comment on above: Performed By: #### P TT, PT #### [facility] [address] [place], [place] [address] Dr. Prashant Kang PTTon 02-24-2022 aPTT Coag (Bld) [Time] 28.9 s Normal 22.3-36.2 [facility] Comment on above: Performed By: #### P TT, PT #### [facility] [address] [place], [place] [address] Dr. Prashant Kang TSHon 02-24-2022 TSH 1.163 uIU/mL Normal 0.358-3.740 [facility] [place] Comment on above: Performed By: #### P TT, PT #### [facility] [address] [id number] Prashant Kang US THYROID FN ASP BXon 02-09 US THYROID FN ASP BX Begin Addendum #1 COLLECTED DATE/TIME: 02/03/2022 11:36 EDT Final Diagnosis Report for [facility] [place] [place] (A/B) THYROID ISTHMUS NODULE, FINE NEEDLE [...] 2. Pathology results are pending. Normal [facility] CT NECK ST W CONon 2 CT [...] by: SHAILESH EMERY Date: 2022-01-20 13:05 Normal [facility] US THYROIDon 01-20-2022 US THYROID EXAMINATION: US [...] isthmus nodule. Consider fine-needle aspiration TI-RADS: The [employer] TI-RADS committee's white paper recommendations for thyroid lesions classified as TR4 (moderately suspicious) are listed below: > 1.0 cm. Follow-up ultrasound in 1, 2, 3, and 5 years. > 1.5 cm. FNA. J. Am More Radiol 2017;[id number]. Electronically authenticated by: SHAILESH EMERY Date: 2022-01-20 21:46 Normal [facility] CBC AUTO DIFFon 01-08-2022 BASO # 0.0 103/ul Normal 0.0-0.1 [facility] Comment on above: Performed By: #### P TT, PT #### [facility] [address] [place] [address] Dr. Prashant Kang Basophils/100 WBC (Bld) 0.4 % Normal 0.2-2.0 [facility] Comment on above: Performed By: #### P TT, PT #### [facility] [address] [place] [address] Dr. Prashant Kang EO # 0.2 103/ul Normal 0.0-0.7 [facility] Comment on above: Performed By: #### P TT, PT #### [facility] [address] [place] [address] Dr. Prashant Kang Eosinophils/100 WBC (Bld) 3.4 % Normal 0.9-7.0 [facility] Comment on above: Performed By: #### P TT, PT #### [facility] [address] [place] [address] Dr. Prashant Kang Erythrocyte distribution width (RBC) [Ratio] 14.6 % Normal 11.0-15.0 [facility] Comment on above: Performed By: #### P TT, PT #### [facility] [address] [place] [address] Dr. Prashant Kang Hematocrit (Bld) [Volume fraction] 42.9 % Normal 36.0-48.0 [facility] Comment on above: Performed By: #### P TT, PT #### [facility] [address] [place] [address] Dr. Prashant Kang Hemoglobin (Bld) [Mass/Vol] 13.4 g/dL Normal 12.0-16.0 [facility] Comment on above: Performed By: #### P TT, PT #### [facility] [address] [place] [address] Dr. Prashant Kang IG # 0.02 10e3/ul Normal 0.00-0.03 [facility] Comment on above: Performed By: #### P TT, PT #### [facility] [address] [place] [address] Dr. Prashant Kang IG % 0.3 % Normal 0.0-0.5 [facility] Comment on above: Performed By: #### P TT, PT #### [facility] [address] [place] [address] Dr. Prashant Kang LYMPH # 2.0 103/ul Normal 1.2-3.8 [facility] Comment on above: Performed By: #### P TT, PT #### [facility] [address] [place] [address] Dr. Prashant Kang Lymphocytes/100 WBC (Bld) 29.7 % Normal 20.5-60.0 [facility] Comment on above: Performed By: #### P TT, PT #### [facility] [address] [place] [address] Dr. Prashant Kang MANUAL DIFF REQ NO Normal [facility] Comment on above: Performed By: #### P TT, PT #### [facility] [address] [place] [address] Dr. Prashant Kang MCH (RBC) [Entitic mass] 26.3 pg Critically low 26.7-34.0 [facility] Comment on above: Performed By: #### P TT, PT #### [facility] [address] [place] [address] Dr. Prashant Kang MCHC (RBC) [Mass/Vol] 31.2 g/dL Normal 29.9-35.2 [facility] Comment on above: Performed By: #### P TT, PT #### [facility] [address] [place] [address] Dr. Prashant Kang MCV (RBC) [Entitic vol] 84.1 fL Normal 81.0-99.0 [facility] Comment on above: Performed By: #### P TT, PT #### [facility] [address] [place] [address] Dr. Prashant Kang MONO # 0.6 103/ul Normal 0.3-0.8 [facility] Comment on above: Performed By: #### P TT, PT #### [facility] [address] [place] [address] Dr. Prashant Kang Monocytes/100 WBC (Bld) 8.7 % Normal 1.7-12.0 [facility] Comment on above: Performed By: #### P TT, PT #### [facility] [address] [place] [address] Dr. Prashant Kang NEUT # 3.9 103/ul Normal 1.4-6.5 [facility] Comment on above: Performed By: #### P TT, PT #### [facility] [address] [place] [address] Dr. Prashant Kang Neutrophils/100 WBC (Bld) 57.5 % Normal 43.0-75.0 [facility] Comment on above: Performed By: #### P TT, PT #### [facility] [address] [place] [address] Dr. Prashant Kang Platelet mean volume (Bld) [Entitic vol] 9.9 fL Normal 9.5-13.5 [facility] Comment on above: Performed By: #### P TT, PT #### [facility] [address] [place] [address] Dr. Prashant Kang PLT 241 103/ul Normal 150-450 [facility] Comment on above: Performed By: #### P TT, PT #### [facility] [address] [place] [address] Dr. Prashant Kang RBC 5.10 106/ul Normal 4.20-5.40 [facility] Comment on above: Performed By: #### P TT, PT #### [facility] [address] [place] [address] Dr. Prashant Kang WBC 6.8 103/ul Normal 4.0-11.0 [facility] Comment on above: Performed By: #### P TT, PT #### [facility] [address] [place] [address] Dr. Prashant Kang GROUP A STREP CULTUREon 12-29 S. pyogenes Ag (Unsp spec) Culture Observations: NEGATIVE FOR GROUP A STREPTOCOCCUS. Normal [facility] Comment on above: Performed By: #### P TT, PT #### [facility] [address] [place] [address] Dr. Prashant Kang PROF 14(COMP METB)on 022 Albumin [Mass/Vol] 3.6 g/dL Normal 3.4-5.0 [facility] Comment on above: Performed By: #### C MP #### [facility] [address] [place] [address] Dr. Prashant Kang Albumin/Globulin [Mass ratio] 0.8 {ratio} Normal [facility] Comment on above: Performed By: #### C MP #### [facility] [address] [place] [address] Dr. Prashant Kang ALP [Catalytic activity/Vol] 74 U/L Normal 46-116 [facility] Comment on above: Performed By: #### C MP #### [facility] [address] [place] [address] Dr. Prashant Kang ALT [Catalytic activity/Vol] 40 U/L Normal 14-59 [facility] Comment on above: Performed By: #### C MP #### [facility] [address] [place] [address] Dr. Prashant Kang Anion gap [Moles/Vol] 14.0 mmol/L Normal [facility] Comment on above: Performed By: #### C MP #### [facility] [address] [place] [address] Dr. Prashant Kang AST [Catalytic activity/Vol] 31 U/L Normal 15-37 [facility] Comment on above: Performed By: #### C MP #### [facility] [address] [place] [address] Dr. Prashant Kang Bilirubin [Mass/Vol] 0.4 mg/dL Normal 0.2-1.0 [facility] Comment on above: Performed By: #### C MP #### [facility] [address] [place] [address] Dr. Prashant Kang Calcium [Mass/Vol] 8.8 mg/dL Normal 8.5-10.1 [facility] Comment on above: Performed By: #### C MP #### [facility] [address] [place] [address] Dr. Prashant Kang Chloride [Moles/Vol] 105 mmol/L Normal 98-107 [facility] Comment on above: Performed By: #### C MP #### [facility] [address] [place] [address] [address] Prashant Kang CO2 [Moles/Vol] 26.6 mmol/L Normal 21.0-32.0 [facility] Comment on above: Performed By: #### C MP #### [facility] [address] [place] [address] [address] Prashant Kang Creatinine [Mass/Vol] 0.80 mg/dL Normal 0.55-1.02 [facility] Comment on above: Performed By: #### C MP #### [facility] [address] [place] [address] Dr. Prashant Kang EGFR-AF SLOVAK >60 Normal >=60 [facility] Comment on above: Performed By: #### C MP #### [facility] [address] [place] [address] Dr. Prashant Kang EGFR-NON AF SLOVAK >60 Normal >=60 [facility] Comment on above: Performed By: #### C MP #### [facility] [address] [place] [address] [address] Prashant Kang Globulin (S) [Mass/Vol] 4.3 g/dL Normal [facility] Comment on above: Performed By: #### C MP #### [facility] [address] [place] [address] [address] Prashant Kang Glucose [Mass/Vol] 101 mg/dL Normal 74-106 [facility] Comment on above: Performed By: #### C MP #### [facility] [address] [place] [address] Dr. Prashant Kang Potassium [Moles/Vol] 4.6 mmol/L Normal 3.5-5.1 [facility] Comment on above: Performed By: #### C MP #### [facility] [address] [place] [address] [address] Prashant Kang Protein [Mass/Vol] 7.9 g/dL Normal 6.4-8.2 [facility] Comment on above: Performed By: #### C MP #### [facility] [address] [place] [address] [address] Prashant Kang Sodium [Moles/Vol] 141 mmol/L Normal 136-145 [facility] Comment on above: Performed By: #### C MP #### [facility] [address] [place] [address] [address] Prashant Kang Urea nitrogen [Mass/Vol] 11.0 mg/dL Normal 7.0-18.0 [facility] Comment on above: Performed By: #### C MP #### [facility] [address] [place] [address] [address] Prashant Kang Urea nitrogen/Creatinine [Mass ratio] 13.8 mg/mg Normal [facility] Comment on above: Performed By: #### C MP #### [facility] [address] [place] [address] [address] Prashant Kang STREPT SCREENon 01-08-2022 STREP SCREEN A Negative Normal NEGATIVE [facility] Comment on above: Performed By: #### P TT, PT #### [facility] [address] [place] [address] [address] Prashant Kang XR NECK SOFT TISSUEon [...] MIKE BARNETT Date: 2022-01-08 04:43 Normal [facility] Covid-19 PCR (CVDTBH)on SARS-CoV-2 (COVID-19) RNA DENEEN+probe Ql (Unsp spec) Not detected Normal NOT DETECTED [facility] Comment on above: Result Comment: This test is not yet approved or cleared by the [place] FDA. When there are no FDA-approved or cleared tests available, and other criteria are met, FDA can make tests available under an emergency access mechanism called an Emergency Use Authorization (EUA). The EUA for this test is supported by the [place] of Health and Human Service's (HHS's) declaration [...] Performed By: #### P TT, PT #### [facility] [address] [place] [address] Dr. Prashant Kang Vital Signs Date Time Vital Sign Value Performing Clinician Faci lity 06-12-2023 13:54-0500 Body mass index (BMI) [Ratio] 40.6 kg/m2 [employer] Work Phone: [facility] 06-12-2023 13:54-0500 Body weight 100.7 kg [employer] Work Phone: [facility] 06-12-2023 13:54-0500 Diastolic blood pressure 74 mm[Hg] Martine Shania [employer] Work Phone: [facility] 06-12-2023 13:54-0500 Systolic blood pressure 118 mm[Hg] Martine Shania [employer] Work Phone: [facility] 05-04-2022 09:40-0500 Body [...] 15 minutes Martine Shania DO Work Phone: [facility] Comment on above: Missed menses; Amenorrhea Start: 02-14-2023 Telephone encounter Arslan Garcai MD [facility] Comment on above: Appointment Confirma tion Start: 02-08-2023 End: 02-09-2023 ambulatory Arslan GARCIA Facility:[facility] Start: 02-01-2023 End: 02-01-2023 ambulatory SARA MEDELLIN Facility:[facility] Start: 11-09-2022 Telephone encounter Arslan Garcia MD [facility] Comment on above: Appointment Confirma tion Start: 11-09-2022 End: 11-10-2022 ambulatory Arslan GARCIA Facility:[facility] Start: 11-02-2022 End: 11-02-2022 ambulatory SARA MEDELLIN Facility:[facility] Start: 09-14-2022 End: 09-14-2022 ambulatory SARA MEDELLIN Facility:[facility] Start: 09-01-[address] SARA MEDELLIN . [...] MD Work Phone: [facility] Comment on above: Missed Appointment Start: 04-20-2022 Patient encounter procedure [facility] Provider [facility] Start: 04-11-2022 End: 04-11-2022 Patient encounter procedure Lab[facility] Work Phone: Radiation Oncology Comment on above: Thyroid cancer (HCC) (Primary Dx) Start: 03-09-2022 Encounter for preprocedural laboratory examination DR GIANA EASTMAN [facility] Start: 03-07-2022 End: 03-08-2022 [...] Influenza vaccination Influenz a Vaccine (Season Ended) [facility] Start: 08-15-2023 End: 11-14-2023 Thyroglobulin and Thyrogobulin Ab panel - Serum or Plasma THYROGLOBULIN, SERUM WITH REFLEX TO IA OR LC-MS/MS Lab Routine Thyroid cancer (HCC) Expected: 08/15/2023, Expires: 11/14/2023 [facility] Work Phone: Comment on above: Expected: 08/15/2023 , Expires: 11/14/2023 Start: 08-15-2023 End: 11-14-2023 Thyrotropin [Units/volume] in Serum or Plasma THYROID STIMULATING HORMONE Lab Routine Thyroid cancer (HCC) Expected: 08/15/2023, Expires: 11/14/2023 [facility] Work Phone: Comment on above: Expected: 08/15/2023 , Expires: 11/14/2023 Start: 08-15-2023 End: 11-14-2023 Thyroxine (T4) [Mass/volume] in Serum or Plasma T4/THYROXINE Lab Routine Thyroid cancer (HCC) Expected: 08/15/2023, Expires: 11/14/2023 [facility] Work Phone: Comment on above: Expected: 08/15/2023 , Expires: 11/14/2023 Start: 06-26-2023 End: 06-26-2023 Professional / ancillary services management 06/26/2023 1:00 PM EST Ancillary Procedure [facility] [address] [place] [address] [facility] Start: 06-12-2023 End: 06-12-2024 US for US PELVIS-TRANSVAG IF INDICATED Imaging Routine Amenorrhea Expected: 06/12/2023 (Approximate), Expires: 06/12/2024 [facility] Comment on above: Expected: 06/12/2023 (Approximate), Expires: 06/12/2024 Start: 04-30-2023 Behavioral Health Screening Behavioral Health Screening [facility] Start: 04-30-2023 Depression Assessment Depression Ass essment [facility] Start: 12-29-2022 Covid-19 Vaccine () Covid-19 Vaccine () [facility] Start: 12-29-2022 Influenza vaccination [facility] Start: 07-02-2022 End: 09-01-2022 THYROGLOBULIN BY MASS SPECTROMETRY THYROGLOBULIN BY MASS SPECTROMETRY Lab Routine Thyroid cancer (HCC) Expected: 07/02/2022, Expires: 09/01/2022 [facility] Work Phone: Comment on above: Expected: 07/02/2022 , Expires: 09/01/2022 Start: 07-02-2022 End: 09-01-2022 Thyrotropin [Units/volume] in Serum or Plasma TSH BLD Lab Routine Thyroid cancer (HCC) Expected: 07/02/2022, Expires: 09/01/2022 [facility] Work Phone: Comment on above: Expected: 07/02/2022 , Expires: 09/01/2022 Start: 07-02-2022 End: 09-01-2022 Thyroxine (T4) [Mass/volume] in Serum or Plasma T4/THYROXINE BLOOD Lab Routine Thyroid cancer (HCC) Expected: 07/02/2022, Expires: 09/01/2022 [facility] Work Phone: Comment on above: Expected: 07/02/2022 , Expires: 09/01/2022 Start: 04-30-2022 DEPRESSION ASSESSMENT DEPRESSION ASS [facility] Start: 2022 HPV TESTING HPV TESTING [facility] Start: 2022 Screening for malign ant neoplasm of cervix HPV Testing [facility] Start: 12-29-2021 Influenza vaccination INFLUENZA (#1) [facility] Start: 04-30-2021 DEPRESSION ASSESSMENT DEPRESSION ASS [facility] Start: 2013 PAP TESTING PAP TESTING [facility] Start: 2013 Screening for malign ant neoplasm of cervix Pap Testing [facility] Start: 2011 Hepatitis B Vaccine (1 of 3 - 19+ 3-dose series) Hepatitis B Vaccine (1 of 3 - 19+ 3-dose series) [facility] Start: 2011 Urine microalbumin profile [facility] Start: 2010 HEPATITIS C SCREENING HEPATITIS C [facility] Start: 2010 Hepatitis C screening Hepatitis C [facility] Start: 2010 HIV SCREENING HIV SCREENING [facility] Start: 2010 HIV screening HIV Screening [facility] Start: 1998 PNEUMOCOCCAL (1 - PCV) PNEUMOCOCCAL (1 - PCV) [facility] Start: 1998 Pneumococcal vaccination [facility] Start: 1992 COVID-19 VACCINE [...] and differential Lab Routine Amenorrhea Ordered: 06/12/2023 [facility] Comment on above: Ordered: 06/12/2023 hCG, quantitative, hCG, quantitative, Lab Routine Amenorrhea Ordered: 06/12/2023 [facility] Comment on above: Ordered: 06/12/2023 Hemoglobin A1c measurement Hemoglobin A1c Lab Routine Amenorrhea Ordered: 06/12/2023 [facility] Comment on above: Ordered: 06/12/2023 Prolactin Prolactin Lab Ro utine Amenorrhea Ordered: 06/12/2023 [facility] Comment on above: Ordered: 06/12/2023 Thyrotropin [Units/volume] in Serum or Plasma TSH Lab Routine Amenorrhea Ordered: 06/12/2023 [facility] Work Phone: Comment on above: Ordered: 06/12/2023 [facility] Payers Date Payer Category Payer Medicaid [id number] 1992 Unknown [id number] [id number] 1992 Unknown [id number] [id number] 1992 Unknown [id number] [id number] [id number] 1992 Unknown [id number] [id number] 1992 Unknown [id number] [id number] [id number] 1992 Unknown [id number] 2.16.84 [id number] 1990 Unknown [id number] 2.16.84 0.1.501054.3.579.2.593 1992 Unknown [id number] 2.16.84 0.1.646123.3.579.2.593 1992 Unknown [id number] 2.16.84 0.1.970046.3.579.2.593 1992 Unknown [id number] 2.16.84 0.1.228204.3.579.2.593 1992 Unknown [id number] 2.16.84 0.1.749579.3.579.2.593 1992 Unknown [id number] 2.16.84 0.1.883648.3.579.2.593 1992 Unknown [id number] 2.16.84 0.1.038217.3.579.2.593 1992 Unknown [id number] 2.16.84 0.1.538710.3.579.2.593 1992 Unknown [id number] 2.16.84 0.1.507903.3.579.2.593 1992 Unknown [id number] 2.16.84 0.1.855918.3.579.2.1259 1992 Unknown [id number] 2.16.84 0.1.242164.3.579.2.1259 1959 Unknown [id number] Social History Date Type Detail Facility Start: 04-11-2022 End: 09-23-2022 Tobacco smoking status NCIS Smokes tobacco daily [facility] History of tobacco use Cigarette Smoker [facility] Start: 04-11-2022 End: 11-02-2022 Cigarettes smoked current (pack per day) - Reported 1 [facility] Start: 04-11-2022 End: 09-23-2022 Tobacco use and exposure Smokeless tobacco non-user [facility] Start: 04-11-2022 End: 05-04-2022 Alcohol intake Current drinker of alcohol (finding) [facility] Start: 04-11-2022 Alcohol Comment socially [facility] Start: 1990 Sex Assigned At Not on file [facility] Start: 05-04-2022 End: 11-02-2022 Tobacco use panel [facility] Adult Depression Screening Assessment 0 [facility] Start: 10-03-2022 Alcohol Comment caffeine intak e: 1-2 cups per day [facility] Start: 1990 Sex Assigned At Female [facility] Start: 10-04-2022 Gender identity Identifies as female gender (finding) [facility] Clinical Notes 03-07-2022 to 08-14-2023 Telephone Encounter - Danna Pitts RN - 08/14/2023 2:29 PM EDTTelephone Encounter - Danan Pitts RN - 08/14/2023 2:27 PM EDTTelephone [...] documented in this encounter [facility] 07-19-2023 Miscellaneous Notes Pt called to request labs sent to [facility]. Faxed to central scheduling. Leonora Sal RN documented in this encounter [facility] 06-12-2023 History of Present illness Narrative [...] Problems Diagnosis Date Noted Papillary thyroid carcinoma ([facility]) 09/23/2022 Bilateral tinnitus 10/04/2022 Asymmetric SNHL [...] Martine Jauregui DO documented in this encounter [facility] 02-14-2023 Miscellaneous Notes Images from the original note were not included. Patient is scheduled for appointments [facility]; Roxana Genao 4 months with labs. Orders have been placed in [facility]. documented in this encounter [facility] 02-08-2023 Note HNO ID: [id number] Author: Arslan Garcia MD Service: ? Author [...] Time Spent: 6 minutes Arslan Garcia MD [facility] 11-09-2022 Miscellaneous Notes Images from the original note were not included. Patient is called and scheduled. Arslan Garcia MD [facility]; Roxana Genao 8 weeks with labs, orders placed, thank you documented in this encounter [facility] 11-09-2022 Note HNO ID: [id number] Author: Arslan Garcia MD Service: ? Author [...] Time Spent: 6 minutes Arslan Garcia MD [facility] 07-17-2022 Miscellaneous Notes Appointment has been changed to phone appt. Tj Funez Pt called in requesting to be switched to a phone visit tomorrow. Her kids are on spring break and a couple of them are sick. Labs have been done and resulted. PSS- please change to phone visit for tomorrow. Danna Pitts RN documented in this encounter [facility] 05-04-2022 History of Present illness Narrative Radiation Oncology - FollowupNote PATIENT NAME: Amanda Cortez PATIENT : 1990 DIAGNOSIS: Thyroid cancer, classic papillary thyroid carcinoma, status post total thyroidectomy and right neck exploration on 03/07/2022, stage I [id number]. HPI: Patient returns after further work-up and [...] Take by mouth. OTC PRODUCT Supplement by [employer] for breast feeding levothyroxine (SYNTHROID) 112 mcg [...] and right neck exploration on 03/07/2022, stage [id number]. Patient does have significant thyroglobulin antibody however [...] patient to reschedule, LMOV. MD Jessica Jenkins [facility] Nurse [place]; Tj Funez Unable to reach please reschedule documented in this encounter [facility] 04-11-2022 Nurse Note Amanda Cortez presents [...] the recovery room in good condition. [facility] [place] Evaluation note Diagnosis Thyroid cancer (HCC)- Primary Malignant neoplasm of thyroid gland [facility] (HCC)- Primary Malignant neoplasm of thyroid gland [facility] Missed menses Amenorrhea Absence of menstruation documented in this encounter [facility]* Diagnosis Thyroid cancer (HCC)- Primary Malignant neoplasm of thyroid gland documented in this encounter [facility] Summary Purpose Family History No Family [...] Care Teams (unrecognized sec tion and content) Automation Architect Relationship Specialty Start Date End Date Sara Medellin MD [address] [id number] PCP - General Family Medicine 04/11/22 Automation Architect Relationship Specialty Start Date End Date Sara Medellin MD [address] [place] [address] PCP - General Family Medicine 04/11/22 Automation Architect Relationship Specialty Start Date End Date Sara Medellin MD [address] [place] [address] PCP - General Family Medicine 04/11/22 Automation Architect Relationship Specialty Start Date End Date Sara Medellin MD PCP - General Family Medicine 04/11/22 Automation Architect Relationship Specialty Start Date End Date Sara Medellin MD PCP - General Family Medicine 04/11/22 Automation Architect Relationship Specialty Start Date End Date Sara Medellin MD [address] [place] [address] PCP - General Family Medicine 10/03/22 Automation Architect Relationship Specialty Start Date End Date Sara Medellin MD PCP - General Family Medicine 04/11/22 Automation Architect Relationship Specialty Start Date End Date Sara Medellin MD PCP - General Family Medicine 04/11/22 INFORMATION SOURCE (unrecogn ized section and content) DATE CREATED AUTHOR 09/02/2022 Holley Mittal [facility] DATE CREATED AUTHOR AUTHOR'S ORGANIZ ATION 08/23/2023 [facility] DATE CREATED AUTHOR AUTHOR'S ORGANIZ ATION 09/16/2023 [facility] EPIC FOR RECORDS PERTAINING TO [...] BE BASED ON THE PRIMARY CLINICAL RECORDS. [facility]. provides no warranty or guarantee of the accuracy or completeness of information in this document.
== END 2023-10-10 14:34 | disposition home or self-care (01) ==
LOC: LAB 14:34
PROVIDERS: PCP Family Medicine; Visit Provider Obstetrics & Gynecology
DX: Z34.80 Encounter for supervision of other normal pregnancy, unspecified trimester (principal)
CPT/HCPCS: 36415

== ENCOUNTER 2023-11-13 19:11 | Outpatient (REF) | payer OTHER, SELFPAY ==
[2023-11-19 09:10] LABS: Age Gdln ACOG Testing Note (.); HPV Aptima Negative (Negative); IGP, Aptima HPV, rfx 16/18,45 Note (.)
== END 2023-11-13 19:12 | disposition home or self-care (01) ==
LOC: LAB 19:11
PROVIDERS: PCP Family Medicine; Visit Provider Obstetrics & Gynecology
DX: Z01.419 Encounter for gynecological examination (general) (routine) without abnormal findings (principal)
CPT/HCPCS: 87624; 88175

== ENCOUNTER 2023-11-28 21:33 | Emergency (ER) | payer OTHER, SELFPAY ==
[2023-11-28 21:38] VITALS: BP 111/75; PULSE 76; TEMP 37.1; O2SAT 99; BMI 40.2
--- OUTSIDE RECORDS SUMMARY | 2023-11-28 21:41 | XMS_ITS | CCD ---
Author Organization [facility] Care Team Providers Care Dental Ceramist Helper Name Role Phone Sara Medellin MD Primary Care Provider [phone] RAIZA, DR GUERRA Consulting Unavailable THEO ., [...] LAKHANI Consulting Unavailable YAMILET JAVED Consulting Unavailable CLARISSA NEWSOME Consulting Unavailable SHANIA ., DR FARLEY Consulting Unavailable HOY ., DR RUIZ Primary Care Unavailable SHANIA ., DR FARLEY Attending Unavailable SHANIA ., DR FARLEY Admitting Unavailable HOY ., DR RUIZ Primary Care Unavailable SHANIA ., DR FARLEY Attending Unavailable SHANIA ., DR FARLEY Admitting Unavailable SHANIA ., DR FARLEY Consulting Unavailable HOY ., DR RUIZ Primary Care Unavailable HSANIA ., DR FARLEY Attending Unavailable SHANIA ., DR FARLEY Admitting Unavailable HOY ., DR RUIZ Consulting Unavailable HOY ., DR RUIZ Primary Care Unavailable HOY ., DR RUIZ Attending Unavailable HOY ., DR RUIZ Admitting Unavailable HOY ., DR RUIZ Consulting Unavailable HOY ., DR RUIZ Primary Care Unavailable HOY ., DR RUIZ Attending Unavailable HOY ., DR RUIZ Admitting Unavailable LIVINGSTON, DR SHAILESH Clark Consulting Unavailable TIMMIS, DR [...] Unavailable Sara Medellin MD Primary Care Provider [phone] Sara Medellin MD Primary Care Provider [phone] Sara Medellin MD Primary Care Provider [phone] ACOSTA JAUREGUI Attending Unavailable ACOSTA JAUREGUI Attending Unavailable ACOSTA JAUREGUI Attending Unavailable SARA MEDELLIN Primary Care Unavailable Arslan GARCIA Attending Unavailable SARA MEDELLIN Primary Care Unavailable Arslan GARCAI Attending Unavailable SARA MEDELLIN Primary Care Unavailable Allergies Allergy Classification Reported Allergen(s) Allergy Type Date of Onset Reaction(s) Facility (14 sources) Cefaclor; Translations: [CEFACLOR] Drug Allergy 2 Hives, Shortness of Breath, Anaphylaxis [facility] (12 sources) Penicillins; Translations: [PENICILLINS] Drug Allergy 2 Hives, Shortness of Breath [facility] (2 sources) Cefaclor Drug Allergy 4 [facility] (2 sources) Penicillins Drug allergy (disorder) 4 [facility] (2 sources) Penicillin G sodium Allergy to substance 3 Anaphylaxis [facility] Medications Current Medications Medication Drug Class(es) Dates Sig (Normalized) Sig (Original) albuterol 0.83 mg/ml inhalation solution (11 sources) beta2-Adrenergic Agonist Start: 2 take 1 dose by inhalation every four hours as needed albuterol (PROVENTIL) 2.5 mg /3 mL (0.083 %) nebulizer solution INHALE CONTENTS OF 1 VIAL VIA NEBULIZER EVERY 4 HOURS NEEDED 0 01/08/2022 Active Comment on above: INHALE CONTENTS OF 1 VIAL VIA NEBULIZER EVERY 4 HOURS NEEDED citalopram 20 mg oral tablet (2 sources) Serotonin Reuptake Inhibitor Start: 3 End: 4 take 1 tablet by mouth in the morning citalopram (CeleXA) 20 MG tablet Indications: Anxiety, generalized (CMS/HCC) Take 1 tablet (20 mg) by mouth in the morning. 30 tablet 11 10/23/2022 10/23/2023 Active Digestive Enzymes tab (11 sources) Digestive Enzyme s tab Take by mouth. 0 Active Comment on above: Take by mouth. fluticasone propionate 0.05 mg/actuat metered dose nasal spray (11 sources) Corticosteroid Start: 2 fluticasone (FLONASE) 50 mcg/actuation nasal spray hydroCHLOROthiazide 25 mg / triamterene 37.5 mg oral capsule (2 sources) Potassium-sparing Diuretic, Thiazide Diuretic Start: 3 take 1 capsule by mouth in the morning triamterene-hydro CHLOROthiazide (Dyazide) 37.5-25 MG capsule Indications: Cochlear hydrops of right ear Take 1 capsule by mouth in the morning. 30 capsule 1 01/03/2023 Active ibuprofen 800 mg oral tablet (11 sources) Nonsteroidal Anti-inflammatory Drug Start: 2 ibuprofen (MOTRIN) 800 mg tablet Take 800 mg by mouth. 0 04/07/2022 Active Comment on above: Take 800 mg by mouth . levothyroxine sodium 0.175 mg oral tablet (9 sources) l-Thyroxine Start: 4 take 1 tablet by mouth once daily [...] breakfast. liothyronine sodium 0.025 mg oral tablet (11 sources) l-Triiodothyronine Start: 04-07-20 take 1 tablet by mouth twice daily liothyronine (CYTOMEL) 25 mcg tablet TAKE ONE TABLET BY MOUTH TWICE A DAY FOR 30 DAYS 0 04/07/2022 Active Comment on above: TAKE ONE TABLET BY [facility] TWICE A DAY FOR 30 DAYS mometasone furoate 0.05 mg/actuat metered dose nasal [...] by mouth in the morning. 0 Active Multivitamin capsule (11 sources) take 1 capsule by mouth once daily Multivitamin capsule Take 1 capsule by mouth once daily. 0 Active Comment on above: Take 1 capsule by mo [facility] once daily. norethindrone 0.35 mg oral tablet (13 sources) Start: 04-07-20 take 1 tablet by mouth once daily JENCYCLA 0.35 mg tablet Take 1 tablet by mouth once daily. 0 04/07/2022 Active Comment on above: Take 1 tablet by олег once daily. omeprazole 40 mg delayed release oral capsule (13 sources) Proton Pump Inhibitor Start: 01-26-20 take 1 capsule by mouth once daily in the morning omeprazole (PRILOSEC) 40 mg capsule TAKE ONE CAPSULE BY MOUTH ONCE DAILY IN THE MORNING 30 TO 60 MINUTES PRIOR TO BREAKFAST 0 03/26/2022 Active Comment on above: TAKE ONE CAPSULE BY MOUTH ONCE DAILY IN THE MORNING 30 TO 60 MINUTES PRIOR TO BREAKFAST OTC PRODUCT (11 sources) OTC PRODUCT Supplement by [employer] for breast feeding 0 Active Comment on above: Supplement by [employer] for breast feeding Problems Active Problems Problem Classification Problem Date Documented Date Episodic/Chronic Cancer of thyroid (12 sources) Malignant tumor of thyroid gland; Translations: [...] Chronic Other aftercare (1 source) 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 She would like to see endocrinology in [place]. Pt's OB did adjust synthroid recently and has been monitoring labs. TREASURE- please sign pended order. PSS- please arrange visit when order is signed. KAREN Peters, Danna Mcdowell RN Previous Messages ----- Message ----- From: Arslan Garcia MD Sent: 11/02/2023 12:08 PM EDT To: Obi Dunlap; Radt [facility] Rad Nurse Pool Given what sounds like patient is in first trimester and ongoing concerns of breast-feeding recommend she follow-up with endocrinology. Obi Genao 11/12/2023 11:26 AM Signed Lawanda please send records to [facility] 11/12/2023 1:18 PM Signed Records faxed to Dr. Arteaga. Erlin Dunlap, Obi 11/13/2023 9:[address] Christine office received ref and they will be calling patient to schedule appointment. Meryl Saenz 11/15/2023 1:[address] Arteaga office spoke with Miguel. She states she has patient on her list to give a call today to get scheduled. Meryl Nguyen Pss Allergies As of Date: 11/12/2023 Noted Allergy Reaction CECLOR (CEFACLOR) 04/11/2022 4 - Hives 12 - Shortness of Breath PENICILLINS 04/11/2022 4 - Hives 12 - Shortness of Breath Date Reviewed: 05/04/2022 Reviewed by: Daisy Stoll MA - Fully Assessed Reason for Visit: Patient Update [1234] Orders [681] Future Appointment [256] Primary Visit Diagnosis:Thyroid cancer (HCC) [C73] Order(s):CONSULT TO ENDOCRINOLOGY [9007] Order #: [id number]: 1 FUTURE Prescriptions as of 11/15/2023 - levothyroxine (SYNTHROID) 175 mcg tablet Take [...] breast feeding Problem List As Of Date: 11/12/2023 (None) Encounter Status:Closed [facility]HEMASA[facility] AMANDA CORTZE ([id number]) 1990 F Date Time Provider Department 07/19/23 EDNA SAL During your visit today, we recorded the following information about you: Edna Sal RN 07/19/2023 10:42 AM Signed Pt called to request labs sent to [facility]. Faxed to central scheduling. Edna Sal RN Allergies As of Date: 07/19/2023 Noted Allergy Reaction CECLOR (CEFACLOR) 04/11/2022 4 - Hives 12 - Shortness of Breath PENICILLINS 04/11/2022 4 - Hives 12 - Shortness of Breath Date Reviewed: 05/04/2022 Reviewed by: Jerman July - Fully Assessed Reason for Visit: Orders [...] Of Date: 07/19/2023 (None) Encounter Status:Closed by EDNA SAL on 07/19/23 [facility] 06-25-2023 CNPN Telephone (RADMORGANA) AMANDA CORTEZ ([id number]) 1990 F Date Time Provider Department 06/25/23 Arslan GARCIA During your visit today, we recorded the following information about you: Danna Pitts, KAREN 06/25/2023 9:20 AM Signed Call placed to [...] to schedule appts. Left message for her. Obi Genao 08/23/2023 8:29 AM Signed Patients lab orders were sent to [facility] and I scheduled her a phone [...] cancer (HCC) [C73] Order(s):T4/THYROXINE [SQT4] Order #: [id number] FUTURE THYROID STIMULATING HORMONE [SQTSH] Order #: [id number] FUTURE THYROGLOBULIN, SERUM WITH REFLEX TO IA OR LC-MS/MS [SQTHYRORF] Order #: [id number] FUTURE Prescriptions as of 08/23/2023 - levothyroxine [...] Encounter Status:Closed by Arslan GARCIA on 08/15/23 [facility] 02-14-2023 CNPN Telephone (MATTY) AMANDA CORTEZ ([id number]) 1990 F Date Time Provider Department 02/14/23 Arslan GARICA During your visit today, we recorded the following information about you: Erlin Dunlap Obi 02/14/2023 9:54 AM Signed Patient is scheduled for appointments Arslan Garcia MD P Radt [facility] Nurse [place]; Obi Genao 4 months with labs. Orders have been placed in epic. Allergies As of Date: 02/14/2023 Noted Allergy Reaction CECLOR (CEFACLOR) 04/11/2022 4 - Hives 12 - Shortness of Breath PENICILLINS 04/11/2022 4 - Hives 12 - Shortness of Breath Date Reviewed: 05/04/2022 Reviewed by: Jerman July - Fully Assessed Reason for Visit: Appointment [...] Status:Closed by OBI GENAO on 02/14/23 Normal [facility] CBC W Auto Differential pane l (Bld)on 02-01-2023 Basophils (Bld) [#/Vol] 0.04 10*3/uL Normal <0.11 [facility] Comment on above: Order Comment: Speci men Type: BLOOD SPECIMEN Ordering Facility: [facility] Address: [address] [place] [address] [place] [address] Performed By: #### 5 3531-8 #### [facility] CLIA [id number] [address] [place] [address] Basophils/100 WBC (Bld) 0.5 % Normal [facility] Comment on above: Order Comment: Speci men Type: BLOOD SPECIMEN Ordering Facility: [facility] Address: [address] [place] [address] Performed By: #### 5 7021-8 #### [facility] CLIA [id number] [address] [place] [address] 09162 Differential cell count method Nom (Bld) Auto Normal [facility] Comment on above: Order Comment: Speci men Type: BLOOD SPECIMEN Ordering Facility: [facility] Address: [address] [place] [address] Performed By: #### 5 7021-8 #### [facility] CLIA [id number] [address] [place] [address] 46064 Eosinophils (Bld) [#/Vol] 0.19 10*3/uL Normal <0.46 [facility] Comment on above: Order Comment: Speci men Type: BLOOD SPECIMEN Ordering Facility: [facility] Address: [address] [place] [address] Performed By: #### 5 7021-8 #### [facility] CLIA [id number] [address] [place] [address] 54176 Eosinophils/100 WBC (Bld) 2.5 % Normal [facility] Comment on above: Order Comment: Speci men Type: BLOOD SPECIMEN Ordering Facility: [facility] Address: [address] [place] [address] Performed By: #### 5 7021-8 #### [facility] CLIA [id number] [address] [place] [address] 43060 Erythrocyte distribution width (RBC) [Ratio] 13.3 % Normal 11.5-15.0 [facility] Comment on above: Order Comment: Speci men Type: BLOOD SPECIMEN Ordering Facility: [facility] Address: [address] [place] [address] Performed By: #### 5 7021-8 #### [facility] CLIA [id number] [address] [place] [address] 81129 Hematocrit (Bld) [Volume fraction] 47.7 % High 36.0-46.0 [facility] Comment on above: Order Comment: Speci men Type: BLOOD SPECIMEN Ordering Facility: [facility] Address: [address] [place] [address] Performed By: #### 5 7021-8 #### [facility] CLIA [id number] [address] [place] [address] 70908 Hemoglobin (Bld) [Mass/Vol] 15.6 g/dL High 11.5-15.5 [facility] Comment on above: Order Comment: Speci men Type: BLOOD SPECIMEN Ordering Facility: [facility] Address: [address] [place] [address] Performed By: #### 5 7021-8 #### [facility] CLIA [id number] [address] [place] [address] 24523 Immature granulocytes (Bld) [#/Vol] 0.03 10*3/uL Normal <0.10 [facility] Comment on above: Order Comment: Speci men Type: BLOOD SPECIMEN Ordering Facility: [facility] Address: [address] [place] [address] Performed By: #### 5 7021-8 #### [facility] CLIA [id number] [address] [place] [address] 64208 Immature granulocytes/100 WBC (Bld) 0.4 % Normal [facility] Comment on above: Order Comment: Speci men Type: BLOOD SPECIMEN Ordering Facility: [facility] Address: [address] [place] [address] Performed By: #### 5 7021-8 #### [facility] CLIA [id number] [address] [place] [address] 55805 Lymphocytes (Bld) [#/Vol] 2.30 10*3/uL Normal 1.00-4.00 [facility] Comment on above: Order Comment: Speci men Type: BLOOD SPECIMEN Ordering Facility: [facility] Address: [address] [place] [address] Performed By: #### 5 7021-8 #### [facility] CLIA [id number] [address] [place] [address] 22868 Lymphocytes/100 WBC (Bld) 29.7 % Normal [facility] Comment on above: Order Comment: Speci men Type: BLOOD SPECIMEN Ordering Facility: [facility] Address: [address] [place] [address] Performed By: #### 5 7021-8 #### [facility] CLIA [id number] [address] [place] [address] 65009 MCH (RBC) [Entitic mass] 28.8 pg Normal 26.0-34.0 [facility] Comment on above: Order Comment: Speci men Type: BLOOD SPECIMEN Ordering Facility: [facility] Address: [address] [place] [address] Performed By: #### 5 7021-8 #### [facility] CLIA [id number] [address] [place] [address] 32904 MCHC (RBC) [Mass/Vol] 32.7 g/dL Normal 30.5-36.0 [facility] Comment on above: Order Comment: Speci men Type: BLOOD SPECIMEN Ordering Facility: [facility] Address: [address] [place] [address] Performed By: #### 5 7021-8 #### [facility] CLIA [id number] [address] [place] [address] 31238 MCV (RBC) [Entitic vol] 88.2 fL Normal 80.0-100.0 [facility] Comment on above: Order Comment: Speci men Type: BLOOD SPECIMEN Ordering Facility: [facility] Address: [address] [place] [address] Performed By: #### 5 7021-8 #### [facility] CLIA [id number] [address] [place] [address] 93425 Monocytes (Bld) [#/Vol] 0.49 10*3/uL Normal <0.87 [facility] Comment on above: Order Comment: Speci men Type: BLOOD SPECIMEN Ordering Facility: [facility] Address: [address] [place] [address] Performed By: #### 5 7021-8 #### [facility] CLIA [id number] [address] [place] [address] 31631 Monocytes/100 WBC (Bld) 6.3 % Normal [facility] Comment on above: Order Comment: Speci men Type: BLOOD SPECIMEN Ordering Facility: [facility] Address: [address] [place] [address] Performed By: #### 5 7021-8 #### [facility] CLIA [id number] [address] [place] [address] 73734 Neutrophils (Bld) [#/Vol] 4.70 10*3/uL Normal 1.45-7.50 [facility] Comment on above: Order Comment: Speci men Type: BLOOD SPECIMEN Ordering Facility: [facility] Address: [address] [place] [address] Performed By: #### 5 7021-8 #### [facility] CLIA [id number] [address] [place] [address] 32111 Neutrophils/100 WBC (Bld) 60.6 % Normal [facility] Comment on above: Order Comment: Speci men Type: BLOOD SPECIMEN Ordering Facility: [facility] Address: [address] [place] [address] Performed By: #### 5 7021-8 #### [facility] CLIA [id number] [address] [place] [address] 57469 Nucleated RBC (Bld) [#/Vol] 10*3/uL Normal <0.01 [facility] Comment on above: Order Comment: Speci men Type: BLOOD SPECIMEN Ordering Facility: [facility] Address: [address] [place] [address] Performed By: #### 5 7021-8 #### [facility] CLIA [id number] [address] [place] [address] Nucleated RBC/100 WBC (Bld) [Ratio] 0.0 /100 WBC Normal [facility] Comment on above: Order Comment: Speci men Type: BLOOD SPECIMEN Ordering Facility: [facility] Address: [address] [id number] Performed By: #### 5 7021-8 #### [facility] CLIA [id number] [address] [place] [address] 56075 Platelet mean volume (Bld) [Entitic vol] 9.6 fL Normal 9.0-12.7 [facility] Comment on above: Order Comment: Speci men Type: BLOOD SPECIMEN Ordering Facility: [facility] Address: [address] [place] [address] Performed By: #### 5 7021-8 #### [facility] CLIA [id number] [address] [place] [address] 08600 Platelets (Bld) [#/Vol] 248 10*3/uL Normal 150-400 [facility] Comment on above: Order Comment: Speci men Type: BLOOD SPECIMEN Ordering Facility: [facility] Address: [address] [place] [address] Performed By: #### 5 7021-8 #### [facility] CLIA [id number] [address] [place] [address] 23023 RBC (Bld) [#/Vol] 5.41 10*6/uL High 3.90-5.20 [facility] Comment on above: Order Comment: Speci men Type: BLOOD SPECIMEN Ordering Facility: [facility] Address: [address] [place] [address] Performed By: #### 5 7021-8 #### [facility] CLIA [id number] [address] [place] [address] 93028 WBC (Bld) [#/Vol] 7.75 10*3/uL Normal 3.70-11.00 [facility] Comment on above: Order Comment: Speci men Type: BLOOD SPECIMEN Ordering Facility: [facility] Address: [address] [place], [place] [address] Performed By: #### 5 7021-8 #### [facility] CLIA [id number] [address] [place], [place] [address] T3 SerPl-mCncon 02-01-2023 T3 [Mass/Vol] 123 ng/dL Normal 79-165 [facility] Comment on above: Order Comment: Speci men Type: BLOOD SPECIMEN Ordering Facility: [facility] Address: [address] [place] [address] Performed By: #### 3 053-6, 3016-3, 3026-2 #### [facility] CLIA [id number] [address] [place] [address] [place] T4 SerPl-mCncon 02-01-2023 T4 [Mass/Vol] 11.9 ug/dL High 5.5-10.2 [facility] Comment on above: Order Comment: Maria Ci kishor Type: BLOOD SPECIMEN Ordering Facility: [facility] Address: [address] [place] [address] Performed By: #### 3 053-6, 3016-3, 3026-2 #### [facility] CLIA [id number] [address] [place] [address] [place] THYROGLOBULIN BY M[facility]2023 THYROGLOBULIN, LC-MS/MS <0.5 Low 1.3-31.8 [facility] Comment on above: Order Comment: Chel iverson Type: BLOOD SPECIMEN Ordering Facility: [facility] Address: [address] [place] [address] Result Comment: Results obtained with different test [...] developed and its performance characteristics determined by [employer]. It has not been cleared or approved by the [place] Food and Drug Administration. This test was performed in a CLIA certified laboratory and is intended for clinical purposes. Performed By: [facility] [address] [place] [address] Community Relations Officer: Prem Willis MD, PhD CLIA Number: [id number] Performed By: #### T [facility] #### [facility] CLIA [id number] [address] [place] [address] TSH SerPl-aCncon 02-01-2023 TSH Qn 0.960 m[IU]/L Normal 0.270-4.200 [facility] Comment on above: Order Comment: Speci men Type: BLOOD SPECIMEN Ordering Facility: [facility] Address: [address] [place] [address] Result Comment: If t he patient is , TSH reference range varies by gestational period: First Trimester (weeks 9-12): 0.180-2.990 mIU/L Second Trimester: 0.110-3.980 mIU/L Third Trimester: 0.480-4.710 mIU/L Suman Graf et al. A Practical Approach for the Verifications and Determination of Site- and Trimester-Specific Reference Intervals for Thyroid Function tests in . Thyroid, 2019:29:3:412-420. Rajesh Holman, et al. 2017 Guidelines of the [place] [employer] Association for the Diagnosis and Management of Thyroid Disease during and the . Thyroid, 2017:27:3:315-389. Performed By: #### 3 053-6, 3016-3, 3026-2 #### [facility] CLIA [id number] [address] [place] [address] [place] PREG QUANT HCGon 08-17-2022 HCG QUANT 1 mIU/mL Normal [facility] Comment on above: Performed By: #### P REGQNT #### [facility] [address] [address] [address] Prashant Kang HCG RANGE SEE BELOW Normal [facility] Comment on above: Result Comment: 5-50 0.2-1 WEEK 50-500 1-2 WEEKS 100-5,000 2-3 WEEKS 500-10,000 3-4 WEEKS 1,000-50,000 4-5 WEEKS 10,000-100,000 5-6 WEEKS 15,000-200,000 6-8 WEEKS 10,000-100,000 2-3 MONTHS Performed By: #### P REGQNT #### [facility] [address] [place] [address] Dr. Prashant Kang PREG QUANT HCGon 07-04-2022 HCG QUANT <1 Normal [facility] Comment on above: Performed By: #### P REGQNT #### [facility] [address] [place] [address] Dr. Prashant Kang HCG RANGE SEE BELOW [facility] Comment on above: Result Comment: 5-50 0.2-1 WEEK 50-500 1-2 WEEKS 100-5,000 2-3 WEEKS 500-10,000 3-4 WEEKS 1,000-50,000 4-5 WEEKS 10,000-100,000 5-6 WEEKS 15,000-200,000 6-8 WEEKS 10,000-100,000 2-3 MONTHS Performed By: #### P REGQNT #### [facility] [address] [place] [address] Dr. Prashant Kang PREG QUANT HCGon 05-16-2022 HCG QUANT <1 Normal [facility] Comment on above: Performed By: #### P TT, PT #### [facility] [address] [place] [address] Dr. Prashant Kang HCG RANGE SEE BELOW [facility] Comment on above: Result Comment: 5-50 0.2-1 WEEK 50-500 1-2 WEEKS 100-5,000 2-3 WEEKS 500-10,000 3-4 WEEKS 1,000-50,000 4-5 WEEKS 10,000-100,000 5-6 WEEKS 15,000-200,000 6-8 WEEKS 10,000-100,000 2-3 MONTHS Performed By: #### P TT, PT #### [facility] [address] [place] [address] Dr. Prashant Kang PREG QUANT HCGon 05-08-2022 HCG QUANT <1 Normal [facility] Comment on above: Performed By: #### P REGQNT #### [facility] [address] [address] [address] Prashant Kang HCG RANGE SEE BELOW Normal [facility] Comment on above: Result Comment: 5-50 0.2-1 WEEK 50-500 1-2 WEEKS 100-5,000 2-3 WEEKS 500-10,000 3-4 WEEKS 1,000-50,000 4-5 WEEKS 10,000-100,000 5-6 WEEKS 15,000-200,000 6-8 WEEKS 10,000-100,000 2-3 MONTHS Performed By: #### P REGQNT #### [facility] [address] [place] [address] Dr. Prashant Kang CALCIUMon 03-08-2022 Calcium [Mass/Vol] 8.6 mg/dL Normal 8.5-10.1 [facility] Comment on above: Performed By: #### C A #### [facility] [address] [place] [address] Dr. Prashant Kang CALCIUMon 03-07-2022 Calcium [Mass/Vol] 8.4 mg/dL Critically low 8.5-10.1 [facility] Comment on above: Performed By: #### C A #### [facility] [address] [place] [address] Dr. Prashant Kang PREG HCG QUALon 03-07-2022 , QUAL Negative Normal NEGATIVE [facility] Comment on above: Performed By: #### P REG #### [facility] [address] [place] [address] Dr. Prashant Kang Covid-19 PCR (CVDTBH)on SARS-CoV-2 (COVID-19) RNA DENEEN+probe Ql (Unsp spec) Not detected Normal NOT DETECTED [facility] Comment on above: Result Comment: This test is not yet approved or cleared by the [place] FDA. When there are no FDA-approved or cleared tests available, and other criteria are met, FDA can make tests available under an emergency access mechanism called an Emergency Use Authorization (EUA). The EUA for this test is supported by the Emergency Response Officer of Health and Human Service's (HHS's) declaration [...] SARS-CoV-2. Performed By: #### C VDTB #### [facility] [address] [place] [address] Dr. Prashant Kang CALCIUMon 02-24-2022 Calcium [Mass/Vol] 8.8 mg/dL Normal 8.5-10.1 [facility] Comment on above: Performed By: #### P TT, PT #### [facility] [address] [place] [address] Dr. Prashant Kang CBC AUTO DIFFon 02-24-2022 BASO # 0.0 103/ul Normal 0.0-0.1 [facility] Comment on above: Performed By: #### P TT, PT #### [facility] [address] [place] [address] Dr. Prashant Kang Basophils/100 WBC (Bld) 0.3 % Normal 0.2-2.0 [facility] Comment on above: Performed By: #### P TT, PT #### [facility] [address] [place] [address] Dr. Prashant Kang EO # 0.1 103/ul Normal 0.0-0.7 [facility] Comment on above: Performed By: #### P TT, PT #### [facility] [address] [place] [address] Dr. Prashant Kang Eosinophils/100 WBC (Bld) 1.5 % Normal 0.9-7.0 [facility] Comment on above: Performed By: #### P TT, PT #### [facility] [address] [place] [address] Dr. Prashant Kang Erythrocyte distribution width (RBC) [Ratio] 13.8 % Normal 11.0-15.0 [facility] Comment on above: Performed By: #### P TT, PT #### [facility] [address] [place] [address] Dr. Prashant Kang Hematocrit (Bld) [Volume fraction] 45.5 % Normal 36.0-48.0 [facility] Comment on above: Performed By: #### P TT, PT #### [facility] [address] [place] [address] Dr. Prashant Kang Hemoglobin (Bld) [Mass/Vol] 14.6 g/dL Normal 12.0-16.0 [facility] Comment on above: Performed By: #### P TT, PT #### [facility] [address] [place] [address] Dr. Prashant Kang IG # 0.02 10e3/ul Normal 0.00-0.03 [facility] Comment on above: Performed By: #### P TT, PT #### [facility] [address] [place] [address] Dr. Prashant Kang IG % 0.3 % Normal 0.0-0.5 [facility] Comment on above: Performed By: #### P TT, PT #### [facility] [address] [place] [address] Dr. Prashant Kang LYMPH # 1.6 103/ul Normal 1.2-3.8 [facility] Comment on above: Performed By: #### P TT, PT #### [facility] [address] [place] [address] Dr. Prashant Kang Lymphocytes/100 WBC (Bld) 23.5 % Normal 20.5-60.0 [facility] Comment on above: Performed By: #### P TT, PT #### [facility] [address] [place] [address] Dr. Prashant Kang MANUAL DIFF REQ NO Normal [facility] Comment on above: Performed By: #### P TT, PT #### [facility] [address] [place] [address] Dr. Prashant Kang MCH (RBC) [Entitic mass] 26.5 pg Critically low 26.7-34.0 [facility] Comment on above: Performed By: #### P TT, PT #### [facility] [address] [place] [address] Dr. Prashant Kang MCHC (RBC) [Mass/Vol] 32.1 g/dL Normal 29.9-35.2 [facility] Comment on above: Performed By: #### P TT, PT #### [facility] [address] [place] [address] Dr. Prashant Kang MCV (RBC) [Entitic vol] 82.7 fL Normal 81.0-99.0 [facility] Comment on above: Performed By: #### P TT, PT #### [facility] [address] [place] [address] Dr. Prashant Kang MONO # 0.5 103/ul Normal 0.3-0.8 [facility] Comment on above: Performed By: #### P TT, PT #### [facility] [address] [place] [address] Dr. Prashant Kang Monocytes/100 WBC (Bld) 7.5 % Normal 1.7-12.0 [facility] Comment on above: Performed By: #### P TT, PT #### [facility] [address] [place] [address] Dr. Prashant Kang NEUT # 4.6 103/ul Normal 1.4-6.5 [facility] Comment on above: Performed By: #### P TT, PT #### [facility] [address] [place] [address] Dr. Prashant Kang Neutrophils/100 WBC (Bld) 66.9 % Normal 43.0-75.0 [facility] Comment on above: Performed By: #### P TT, PT #### [facility] [address] [place] [address] Dr. Prashant Kang Platelet mean volume (Bld) [Entitic vol] 9.9 fL Normal 9.5-13.5 [facility] Comment on above: Performed By: #### P TT, PT #### [facility] [address] [place] [address] Dr. Prashant Kang PLT 239 103/ul Normal 150-450 [facility] Comment on above: Performed By: #### P TT, PT #### [facility] [address] [address] [address] Prashant Kang RBC 5.50 106/ul Critically high 4.20-5.40 [facility] Comment on above: Performed By: #### P TT, PT #### [facility] [address] [place] [address] Dr. Prashant Kang WBC 6.8 103/ul Normal 4.0-11.0 [facility] Comment on above: Performed By: #### P TT, PT #### [facility] [address] [place] [address] Dr. Prashant Kang MAGNESIUMon 02-24-2022 Magnesium [Mass/Vol] 2.0 mg/dL Normal 1.8-2.4 [facility] Comment on above: Performed By: #### P TT, PT #### [facility] [address] [place] [address] Dr. Prashant Kang PHOSPHORUSon 02-24-2022 Phosphate [Mass/Vol] 3.3 mg/dL Normal 2.6-4.7 [facility] Comment on above: Performed By: #### P TT, PT #### [facility] [address] [place] [address] Dr. Prashant Kang PROTIMEon 02-24-2022 INR Coag (PPP) [Relative time] 1.01 {INR} Normal [facility] Comment on above: Performed By: #### P TT, PT #### [facility] [address] [place] [address] Dr. Prashant Kang INR GUIDELINES SEE BELOW Normal [facility] Comment on above: Result Comment: SALIMA RED INR: 2.0 - 3.0 CONDITIONS NOT LISTED BELOW 2.5 - 3.5 FOR PROSTHETIC HEART VALVE REPLACEMENT 2.5 - 3.5 RECURRENT THROMBOSIS Performed By: #### P TT, PT #### [facility] [address] [place], [place] [address] Dr. Prashant Kang PT Coag (PPP) [Time] 10.9 s Normal 9.0-11.6 [facility] Comment on above: Performed By: #### P TT, PT #### [facility] [address] [place], [place] [address] Dr. Prashant Kang PTTon 02-24-2022 aPTT Coag (Bld) [Time] 28.9 s Normal 22.3-36.2 [facility] Comment on above: Performed By: #### P TT, PT #### [facility] [address] [place], [place] [address] Dr. Prashant Kang TSHon 02-24-2022 TSH 1.163 uIU/mL Normal 0.358-3.740 [facility] Comment on above: Performed By: #### P TT, PT #### [facility] [address] [place] [address] Dr. Prashant Kang US THYROID FN ASP BXon 02-09 US THYROID FN ASP BX Begin Addendum #1 COLLECTED DATE/TIME: 02/03/2022 11:36 EDT Final Diagnosis Report for [facility] [place], [place] (A/B) THYROID ISTHMUS NODULE, FINE NEEDLE [...] 2. Pathology results are pending. Normal [facility] CT NECK ST W CONon [...] by: SHAILESH EMERY Date: 2022-01-20 13:05 Normal [facility] US THYROIDon 01-20-2022 US THYROID EXAMINATION: [...] isthmus nodule. Consider fine-needle aspiration TI-RADS: The [employer] TI-RADS committee's white paper recommendations for thyroid lesions classified as TR4 (moderately suspicious) are listed below: > 1.0 cm. Follow-up ultrasound in 1, 2, 3, and 5 years. > 1.5 cm. FNA. J. Am More Radiol 2017;14:[id number]. Electronically authenticated by: SHAILESH EMERY Date: 2022-01-20 21:46 Normal [facility] CBC AUTO DIFFon 01-08-2022 BASO # 0.0 103/ul Normal 0.0-0.1 [facility] Comment on above: Performed By: #### P TT, PT #### [facility] [address] [place] [address] Dr. Prashant Kang Basophils/100 WBC (Bld) 0.4 % Normal 0.2-2.0 [facility] Comment on above: Performed By: #### P TT, PT #### [facility] [address] [place] [address] Dr. Prashant Kang EO # 0.2 103/ul Normal 0.0-0.7 [facility] Comment on above: Performed By: #### P TT, PT #### [facility] [address] [place] [address] Dr. Prashant Kang Eosinophils/100 WBC (Bld) 3.4 % Normal 0.9-7.0 [facility] Comment on above: Performed By: #### P TT, PT #### [facility] [address] [place] [address] Dr. Prashant Kang Erythrocyte distribution width (RBC) [Ratio] 14.6 % Normal 11.0-15.0 [facility] Comment on above: Performed By: #### P TT, PT #### [facility] [address] [place] [address] Dr. Prashant Kang Hematocrit (Bld) [Volume fraction] 42.9 % Normal 36.0-48.0 [facility] Comment on above: Performed By: #### P TT, PT #### [facility] [address] [place] [address] Dr. Prashant Kang Hemoglobin (Bld) [Mass/Vol] 13.4 g/dL Normal 12.0-16.0 [facility] Comment on above: Performed By: #### P TT, PT #### [facility] [address] [place] [address] Dr. Prashant Kang IG # 0.02 10e3/ul Normal 0.00-0.03 [facility] Comment on above: Performed By: #### P TT, PT #### [facility] [address] [address] [address] Prashant Kang IG % 0.3 % Normal 0.0-0.5 [facility] Comment on above: Performed By: #### P TT, PT #### [facility] [address] [address] [address] Prashant Kang LYMPH # 2.0 103/ul Normal 1.2-3.8 [facility] Comment on above: Performed By: #### P TT, PT #### [facility] [address] [address] [address] Prashant Kang Lymphocytes/100 WBC (Bld) 29.7 % Normal 20.5-60.0 [facility] Comment on above: Performed By: #### P TT, PT #### [facility] [address] [place] [address] Dr. Prashant Kang MANUAL DIFF REQ NO Normal [facility] Comment on above: Performed By: #### P TT, PT #### [facility] [address] [place] [address] Dr. Prashant Kang MCH (RBC) [Entitic mass] 26.3 pg Critically low 26.7-34.0 [facility] Comment on above: Performed By: #### P TT, PT #### [facility] [address] [place] [address] Dr. Prashant Kang MCHC (RBC) [Mass/Vol] 31.2 g/dL Normal 29.9-35.2 [facility] Comment on above: Performed By: #### P TT, PT #### [facility] [address] [place] [address] Dr. Prashant Kang MCV (RBC) [Entitic vol] 84.1 fL Normal 81.0-99.0 [facility] Comment on above: Performed By: #### P TT, PT #### [facility] [address] [place] [address] Dr. Prashant Kang MONO # 0.6 103/ul Normal 0.3-0.8 [facility] Comment on above: Performed By: #### P TT, PT #### [facility] [address] [place] [address] Dr. Prashant Kang Monocytes/100 WBC (Bld) 8.7 % Normal 1.7-12.0 [facility] Comment on above: Performed By: #### P TT, PT #### [facility] [address] [place] [address] Dr. Prashant Kang NEUT # 3.9 103/ul Normal 1.4-6.5 [facility] Comment on above: Performed By: #### P TT, PT #### [facility] [address] [place] [address] Dr. Prashant Kang Neutrophils/100 WBC (Bld) 57.5 % Normal 43.0-75.0 [facility] Comment on above: Performed By: #### P TT, PT #### [facility] [address] [place] [address] Dr. Prashant Kang Platelet mean volume (Bld) [Entitic vol] 9.9 fL Normal 9.5-13.5 [facility] Comment on above: Performed By: #### P TT, PT #### [facility] [address] [place] [address] Dr. Prashant Kang PLT 241 103/ul Normal 150-450 [facility] Comment on above: Performed By: #### P TT, PT #### [facility] [address] [place] [address] Dr. Prashant Kang RBC 5.10 106/ul Normal 4.20-5.40 [facility] Comment on above: Performed By: #### P TT, PT #### [facility] [address] [place] [address] Dr. Prashant Kang WBC 6.8 103/ul Normal 4.0-11.0 [facility] Comment on above: Performed By: #### P TT, PT #### [facility] [address] [place] [address] Dr. Prashant Kang GROUP A STREP CULTUREon 12-29 S. pyogenes Ag Ql (Unsp spec) Culture Observations: NEGATIVE FOR GROUP A STREPTOCOCCUS. Normal [facility] Comment on above: Performed By: #### P TT, PT #### [facility] [address] [address] [address] Prashant Kang PROF 14(COMP METB)on 022 Albumin [Mass/Vol] 3.6 g/dL Normal 3.4-5.0 [facility] Comment on above: Performed By: #### C MP #### [facility] [address] [place] [address] Dr. Prashant Kang Albumin/Globulin [Mass ratio] 0.8 {ratio} Normal [facility] Comment on above: Performed By: #### C MP #### [facility] [address] [place] [address] Dr. Prashant Kang ALP [Catalytic activity/Vol] 74 U/L Normal 46-116 [facility] Comment on above: Performed By: #### C MP #### [facility] [address] [place] [address] Dr. Prashant Kang ALT [Catalytic activity/Vol] 40 U/L Normal 14-59 [facility] Comment on above: Performed By: #### C MP #### [facility] [address] [place] [address] Dr. Prashant Kang Anion gap [Moles/Vol] 14.0 mmol/L Normal [facility] Comment on above: Performed By: #### C MP #### [facility] [address] [place] [address] Dr. Prashant Kang AST [Catalytic activity/Vol] 31 U/L Normal 15-37 [facility] Comment on above: Performed By: #### C MP #### [facility] [address] [place] [address] Dr. Prashant Kang Bilirubin [Mass/Vol] 0.4 mg/dL Normal 0.2-1.0 [facility] Comment on above: Performed By: #### C MP #### [facility] [address] [place] [address] Dr. Prashant Kang Calcium [Mass/Vol] 8.8 mg/dL Normal 8.5-10.1 [facility] Comment on above: Performed By: #### C MP #### [facility] [address] [address] [address] Prashant Kang Chloride [Moles/Vol] 105 mmol/L Normal 98-107 [facility] Comment on above: Performed By: #### C MP #### [facility] [address] [address] [address] Prashant Kang CO2 [Moles/Vol] 26.6 mmol/L Normal 21.0-32.0 [facility] Comment on above: Performed By: #### C MP #### [facility] [address] [address] [address] Prashant Kang Creatinine [Mass/Vol] 0.80 mg/dL Normal 0.55-1.02 [facility] Comment on above: Performed By: #### C MP #### [facility] [address] [place] [address] Dr. Prashant Kang EGFR-AF ISRAELI >60 Normal >=60 [facility] Comment on above: Performed By: #### C MP #### [facility] [address] [address] [address] Prashant Kang EGFR-NON AF ISRAELI >60 Normal >=60 [facility] Comment on above: Performed By: #### C MP #### [facility] [address] [address] [address] Prashant Kang Globulin (S) [Mass/Vol] 4.3 g/dL Normal [facility] Comment on above: Performed By: #### C MP #### [facility] [address] [address] [address] Prashant Kang Glucose [Mass/Vol] 101 mg/dL Normal 74-106 [facility] Comment on above: Performed By: #### C MP #### [facility] [address] [address] [address] Prashant Kang Potassium [Moles/Vol] 4.6 mmol/L Normal 3.5-5.1 [facility] Comment on above: Performed By: #### C MP #### [facility] [address] [address] [address] Prashant Kang Protein [Mass/Vol] 7.9 g/dL Normal 6.4-8.2 [facility] Comment on above: Performed By: #### C MP #### [facility] [address] [address] [address] Prashant Kang Sodium [Moles/Vol] 141 mmol/L Normal 136-145 [facility] Comment on above: Performed By: #### C MP #### [facility] [address] [address] [address] Prashant Kang Urea nitrogen [Mass/Vol] 11.0 mg/dL Normal 7.0-18.0 [facility] Comment on above: Performed By: #### C MP #### [facility] [address] [address] [address] Prashant Kang Urea nitrogen/Creatinine [Mass ratio] 13.8 mg/mg Normal [facility] Comment on above: Performed By: #### C MP #### [facility] [address] [address] [address] Prashant Kang STREPT SCREENon 01-08-2022 STREP SCREEN A Negative Normal NEGATIVE [facility] Comment on above: Performed By: #### P TT, PT #### [facility] [address] [address] [address] Prashant Kang XR NECK SOFT TISSUEon [...] MIKE SAID Date: 2022-01-08 04:43 Normal [facility] Covid-19 PCR (CVDTBH)on SARS-CoV-2 (COVID-19) RNA DENEEN+probe Ql (Unsp spec) Not detected Normal NOT DETECTED [facility] Comment on above: Result Comment: This test is not yet approved or cleared by the [place] FDA. When there are no FDA-approved or cleared tests available, and other criteria are met, FDA can make tests available under an emergency access mechanism called an Emergency Use Authorization (EUA). The EUA for this test is supported by the Emergency Response Officer of Health and Human Service's (HHS's) declaration [...] Performed By: #### P TT, PT #### [facility] [address] [place] [address] Dr. Prashant Kang Vital Signs Date Time Vital Sign Value Performing Clinician [place] 06-12-2023 13:54-0500 Body mass index (BMI) [Ratio] 40.6 kg/m2 [employer] Work Phone: [facility] 06-12-2023 13:54-0500 Body weight 100.7 kg [employer] [facility] Work Phone: [facility] 06-12-2023 13:54-0500 Diastolic blood pressure 74 mm[Hg] [employer] Work Phone: [facility] 06-12-2023 13:54-0500 Systolic blood pressure 118 mm[Hg] [employer] Work Phone: [facility] 05-04-2022 09:40-0500 Body temperature 97.2 [degF] JONNY Garcia MD Work Phone: [facility] 05-04-2022 09:40-0500 Body weight 88.81 kg JONNY Garcia MD Work Phone: [facility] 05-04-2022 09:40-0500 Diastolic blood pressure 73 mm[Hg] JONNY Garcia MD Work Phone: [facility] 05-04-2022 09:40-0500 Heart rate 67 /min JONNY Garcia MD Work Phone: [facility] 05-04-2022 09:40-0500 Respiratory rate 16 /min JONNY Garcia MD Work Phone: [facility] 05-04-2022 09:40-0500 SaO2% (BldA) [Mass fraction] 100 % JONNY Garcia MD Work Phone: [facility] 05-04-2022 09:40-0500 Systolic blood pressure 113 mm[Hg] JONNY Garcia MD Work Phone: [facility] Encounters Encounter Date Encounter Type Care Provider Facility Start: 11-13-2023 End: 11-13-2023 ambulatory ACOSTA SHANIA Not Available Start: 11-12-2023 Telephone encounter Arslan Garcia MD Work Phone: Radiation Oncology Comment on above: Patient Update; Orde rs; Future Appointment Start: 10-24-2023 End: 10-25-2023 ambulatory Arslan Garcia MD Work Phone: Radiation Oncology Comment on above: Thyroid cancer (HCC) (Primary Dx) Start: 10-24-2023 End: 10-25-2023 Telemedicine consultation with patient Arslan Garcia MD Work Phone: Radiation Oncology Start: 10-16-2023 End: 10-16-2023 ambulatory ACOSTA SHANIA Not Available Start: 09-14-2023 End: 09-14-2023 ambulatory ACOSTA SHANIA Not Available Start: 07-19-2023 Telephone encounter Edna Portillo Hematology/Oncology Comment on above: Orders Start: 06-25-2023 Telephone encounter Arslan Garcia MD Work Phone: Radiation Oncology Comment on above: Future Appointment Start: 06-12-2023 End: 06-12-2023 Office outpatient visit 15 minutes Acosta Jauregui DO Work Phone: [facility] Comment on above: Missed menses; Amenorrhea Start: 06-12-2023 End: 06-12-2023 ambulatory ACOSTA JAUREGUI Not Available Start: 02-14-2023 Telephone encounter Arslan Garcia MD Work Phone: [facility] Comment on above: Appointment Confirma tion Start: 02-08-2023 End: 02-08-2023 ambulatory SARA MEDELLIN Facility:[facility] Start: 02-01-2023 End: 02-01-2023 ambulatory SARA MEDELLIN Facility:[facility] Start: 11-09-2022 Telephone encounter [facility]: Appointment Confirma tion Start: 09-01-[address] SARA MEDELLIN . Facili ty:[facility] Start: 08-23-2022 End: 08-23-2022 ambulatory DHRUV MCDONALD Facility:[facility] Start: 08-17-2022 End: 08-27-[address] ACOSTA JAUREGUI . Facility:[facility] Start: 08-06-2022 End: 08-06-2022 ambulatory DHRUV MCDONALD Facility:[facility] Start: 07-17-2022 Telephone encounter Arslan Garcia MD Work Phone: Radiation Oncology Comment on above: Phone Visit Start: 07-04-2022 End: 07-28-[address] ACOSTA JAUREGUI . Facility:[facility] Start: 05-08-2022 End: 05-30-[address] ACOSTA JAUREGUI . Facility:[facility] Start: 05-04-2022 End: 05-04-2022 Patient encounter procedure Arslan Garcia MD Work Phone: Radiation Oncology Comment on above: Thyroid cancer (HCC) (Primary Dx) Start: 04-25-2022 Telephone encounter Arslan Garcia MD Work Phone: [facility] Comment on above: Missed Appointment Start: 04-20-2022 Patient encounter procedure [facility] Provider [facility] Department Start: 04-11-2022 End: 04-11-2022 Patient encounter procedure Lab/[place] Work Phone: Radiation Oncology Comment on above: Thyroid cancer (HCC) (Primary Dx) Start: 03-09-2022 Encounter for preprocedural laboratory examination DR CHARLIE EASTMAN [facility] Start: 03-07-2022 End: 03-08-[address] [...] Activity Detail Author Start: 12-30-2023 Influenza vaccination [facility] Start: 08-15-2023 End: 11-14-2023 Thyroglobulin and Thyrogobulin Ab panel - Serum or Plasma THYROGLOBULIN, SERUM WITH REFLEX TO IA OR LC-MS/MS Lab Routine Thyroid cancer (HCC) Expected: 08/15/2023, Expires: 11/14/2023 [facility] Work Phone: Comment on above: Expected: 08/15/2023 , Expires: 11/14/2023 Start: 08-15-2023 End: 11-14-2023 Thyrotropin [Units/volume] in Serum or Plasma THYROID STIMULATING HORMONE Lab Routine Thyroid cancer (HCC) Expected: 08/15/2023, Expires: 11/14/2023 [facility] Work Phone: Comment on above: Expected: 08/15/2023 , Expires: 11/14/2023 Start: 08-15-2023 End: 11-14-2023 Thyroxine (T4) [Mass/volume] in Serum or Plasma T4/THYROXINE Lab Routine Thyroid cancer (HCC) Expected: 08/15/2023, Expires: 11/14/2023 [facility] Work Phone: Comment on above: Expected: 08/15/2023 , Expires: 11/14/2023 Start: 06-26-2023 End: 06-26-2023 Professional / ancillary services management 06/26/2023 1:00 PM EST Ancillary Procedure [facility] [address] [place] [address] [place] [address] [facility] Start: 06-12-2023 End: 06-12-2024 US for US PELVIS-TRANSVAG IF INDICATED Imaging Routine Amenorrhea Expected: 06/12/2023 (Approximate), Expires: 06/12/2024 [facility] Comment on above: Expected: 06/12/2023 (Approximate), Expires: 06/12/2024 Start: 04-30-2023 Behavioral Health Screening Behavioral Health Screening [facility] Start: 04-30-2023 Depression Assessment Depression Ass essment [facility] Start: 12-29-2022 Covid-19 Vaccine () Covid-19 Vaccine () [facility] Start: 12-29-2022 Influenza vaccination [facility] Start: 07-02-2022 End: 09-01-2022 THYROGLOBULIN BY MASS SPECTROMETRY THYROGLOBULIN BY MASS SPECTROMETRY Lab Routine Thyroid cancer (HCC) Expected: 07/02/2022, Expires: 09/01/2022 [facility] Work Phone: Comment on above: Expected: 07/02/2022 , Expires: 09/01/2022 Start: 07-02-2022 End: 09-01-2022 Thyrotropin [Units/volume] in Serum or Plasma TSH BLD Lab Routine Thyroid cancer (HCC) Expected: 07/02/2022, Expires: 09/01/2022 [facility] Work Phone: Comment on above: Expected: 07/02/2022 , Expires: 09/01/2022 Start: 07-02-2022 End: 09-01-2022 Thyroxine (T4) [Mass/volume] in Serum or Plasma T4/THYROXINE BLOOD Lab Routine Thyroid cancer (HCC) Expected: 07/02/2022, Expires: 09/01/2022 [facility] Work Phone: Comment on above: Expected: 07/02/2022 , Expires: 09/01/2022 Start: 04-30-2022 DEPRESSION ASSESSMENT DEPRESSION ASS [facility] Start: 2022 HPV TESTING HPV TESTING [facility] Start: 2022 Screening for malign ant neoplasm of cervix HPV Testing [facility] Start: 12-29-2021 Influenza vaccination INFLUENZA (#1) [facility] Start: 04-30-2021 DEPRESSION ASSESSMENT DEPRESSION ASS [facility] Start: 2013 PAP TESTING PAP TESTING [facility] Start: 2013 Screening for malign ant neoplasm of cervix [facility] Start: 2011 Hepatitis B Vaccine (1 of 3 - 19+ 3-dose series) Hepatitis B Vaccine (1 of 3 - 19+ 3-dose series) [facility] Start: 2011 Urine microalbumin profile [facility] Start: 2010 HEPATITIS C SCREENING HEPATITIS C [facility] Start: 2010 Hepatitis C screening Hepatitis C [facility] Start: 2010 HIV SCREENING HIV SCREENING [facility] Start: 2010 HIV screening HIV Screening [facility] Start: 1998 PNEUMOCOCCAL (1 - PCV) PNEUMOCOCCAL (1 - PCV) [facility] Start: 1998 Pneumococcal vaccination [facility] Start: 1992 COVID-19 VACCINE (#1) COVID-19 VACCI NE (#1) [facility] Start: 1992 HEPATITIS B (1 of 3 - 3-dose series) HEPATITIS B (1 of 3 - 3-dose series) [facility] Start: 1992 Hepatitis B Vaccine (1 of 3 - 3-dose series) Hepatitis B Vaccine (1 of 3 - 3-dose series) [facility] CBC W Auto Different ial panel - Blood CBC and differential Lab Routine Amenorrhea Ordered: 06/12/2023 [facility] Comment on above: Ordered: 06/12/2023 hCG, quantitative, hCG, quantitative, Lab Routine Amenorrhea Ordered: 06/12/2023 [facility] Comment on above: Ordered: 06/12/2023 Hemoglobin A1c measurement Hemoglobin A1c Lab Routine Amenorrhea Ordered: 06/12/2023 [facility] Comment on above: Ordered: 06/12/2023 Prolactin Prolactin Lab Ro utine Amenorrhea Ordered: 06/12/2023 [facility] Comment on above: Ordered: 06/12/2023 Thyrotropin [Units/volume] in Serum or Plasma TSH Lab Routine Amenorrhea Ordered: 06/12/2023 [facility] Work Phone: Comment on above: Ordered: 06/12/2023 [facility] Payers Date Payer Category Payer Medicaid [id number] 1990 Unknown [id number] 2.16.84 [id number] 1992 Unknown [id number] 2.16.84 [id number] 1992 Unknown [id number] 2.16.84 0.1.491782.3.579.2.593 1992 Unknown [id number] 2.16.84 0.1.562493.3.579.2.593 1992 Unknown [id number] 2.16.84 0.1.479846.3.579.2.593 1992 Unknown [id number] 2.16.84 0.1.079926.3.579.2.593 1992 Unknown [id number] 2.16.84 0.1.556040.3.579.2.593 1992 Unknown [id number] 2.16.84 0.1.227934.3.579.2.593 1992 Unknown [id number] 2.16.84 0.1.501393.3.579.2.593 1992 Unknown [id number] 2.16.84 0.1.607964.3.579.2.593 1992 Unknown [id number] 2.16.84 0.1.305939.3.579.2.593 1992 Unknown [id number] 2.16.84 0.1.064905.3.579.2.593 1992 Unknown [id number] 2.16.84 0.1.489094.3.579.2.593 1992 Unknown [id number] 2.16.84 0.1.023405.3.579.2.593 1992 Unknown [id number] 2.16.84 0.1.755578.3.579.2.593 1992 Unknown [id number] 2.16.84 0.1.217451.3.579.2.1259 1992 Unknown [id number] 2.16.84 0.1.513251.3.579.2.1259 1992 Unknown [id number] 2.16.84 0.1.959469.3.579.2.1259 1992 Unknown [id number] 2.16.84 0.1.867937.3.579.2.1259 1959 Unknown [id number] Social History Date Type Detail Facility Start: 04-11-2022 End: 09-23-2022 Tobacco smoking status NHIS Smokes tobacco daily [facility] History of tobacco use Cigarette Smoker [facility] Start: 04-11-2022 End: 11-02-2022 Cigarettes smoked current (pack per day) - Reported 1 [facility] Start: 04-11-2022 End: 09-23-2022 Tobacco use and exposure Smokeless tobacco non-user [facility] Start: 04-11-2022 End: 05-04-2022 Alcohol intake Current drinker of alcohol (finding) [facility] Start: 04-11-2022 Alcohol Comment socially [facility] Start: 1990 Sex Assigned At Not on file [facility] Start: 05-04-2022 End: 11-02-2022 Tobacco use panel [facility] Adult Depression Screening Assessment 0 [facility] Start: 10-03-2022 Alcohol Comment caffeine intak e: 1-2 cups per day [facility] Start: 1990 Sex Assigned At Female N OMS [facility] Start: 10-04-2022 Gender identity Identifies as female gender (finding) [facility] Clinical Notes 03-07-2022 to 11-13-2023 Telephone Encounter - Obi Genao - 11/13/2023 9:36 AM EDTTelephone Encounter - Clarissa Harkins - 11/12/2023 1:18 PM EDTTelephone Encounter - Danna Pitts RN - 11/12/2023 11:21 AM EDT Note Date & Type Note Facility 11-13-[address] Christine office received ref and they will be calling patient to schedule appointment. Records faxed to Dr. Arteaga. Lawanda [facility] Images from the original note were not included. Spoke to pt. She would like to see endocrinology in [place]. Pt's OB did adjust synthroid recently and has been monitoring labs. TREASURE- please sign pended order. PSS- please arrange visit when order is signed. DannaKAREN Hudson Tiffany Weyer, Angela, RN Previous Messages ----- Message ----- From: Arslan Garcia MD Sent: 11/02/2023 12:08 PM EDT To: Obi Dunlap; [facility] Rad Nurse Pool Given what sounds like patient is in first trimester and ongoing concerns of breast-feeding recommend she follow-up with endocrinology. documented in this encounter [facility] 11-13-[address] Christine office received ref and they will be calling patient to schedule appointment. [facility] 11-12-2023 Telephone encounter Note Records faxed to Dr. Arteaga. [facility] 11-12-2023 Telephone encounter Note Lawanda please [facility] to [facility] in your box [facility] 11-12-2023 Telephone encounter Note Images from the original note were not included. Spoke to pt. She would like to see endocrinology in [place]. Pt's OB did adjust synthroid recently and has been monitoring labs. TREASURE- please sign pended order. PSS- please arrange visit when order is signed. KAREN Peters Tiffany Weyer, Angela, RN Previous Messages ----- Message ----- From: Arslan Garcia MD Sent: 11/02/2023 12:08 PM EDT To: bOi Dunlap; [facility] Rad Nurse Pool Given what sounds like patient is in first trimester and ongoing concerns of breast-feeding recommend she follow-up with endocrinology. [facility] 10-24-2023 Note HNO ID: [id number] Author: Arslan GARCIA MD Service: ? Author Type: Physician Type: Progress Notes Filed: 11/02/2023 12:08 Note Text: Unable to reach patient. [facility] 10-24-2023 History of Present illness Narrative Unable to reach patient. documented in this encounter [facility] 08-14-2023 Miscellaneous Notes TREASURE- please sign pended [...] Danna Pitts RN documented in this encounter [facility] 07-19-2023 Miscellaneous Notes Pt called to request labs sent to [facility]. Faxed to central scheduling. 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 Patient is scheduled for appointments Arslan Garcia MD P [facility] Nurse Wade; Obi Genao 4 months with labs. Orders have been placed in epic. documented in this encounter [facility] 02-08-2023 Note HNO ID: [id number] Author: Arslan Garcia MD Service: ? Author [...] Time Spent: 6 minutes Arslan Garcia MD [facility] 11-09-2022 Miscellaneous Notes Images from the original note were not included. Patient is called and scheduled. Arslan Garcia MD P [facility] Govind Joseph [place]; Obi Genao 8 weeks with labs, orders placed, thank you documented in this encounter [facility] 07-17-2022 Miscellaneous Notes Appointment has been changed to phone appt. Tj Funez Pt called in requesting to be switched to a phone visit tomorrow. Her kids are on spring break and a couple of them are sick. Labs have been done and resulted. PSS- please change to phone visit for tomorrow. Danna Pitts RN documented in this encounter [facility] 05-04-2022 History of Present illness Narrative Radiation Oncology - FollowupNote PATIENT NAME: Amanad Cortez PATIENT : 1990 DIAGNOSIS: Thyroid cancer, classic papillary thyroid carcinoma, status post total thyroidectomy and right neck exploration on 03/07/2022, stage I [id number]. HPI: Patient returns after further work-up and [...] and right neck exploration on 03/07/2022, stage [id number]. Patient does have significant thyroglobulin antibody however [...] for this encounter. documented in this encounter [facility] 04-25-2022 Miscellaneous Notes Patient had been rescheduled. Tj Funez Images from the original note were not included. Called patient to reschedule, LMOV. MD Jessica Jenkins [facility] Nurse Pool; Tj Funez Unable to reach please reschedule documented in this encounter [facility] 04-11-2022 Nurse Note Amanda Rojelio Cortez presents in office today for: Lab Draw during Office Visit . Ordering Provider: Felipe Garcia M.D. Test (s) ordered: TG Method for obtaining blood: Phlebotomy was performed, accessing right antecubital vein. Needle removed intact. Dressing secured. Patient denies discomfort, dizziness, light-headedness or weakness and left the department without assist. Danna Pitts, RN documented in this encounter [facility] 03-07-2022 Note OPERATIVE NOTE OPERATION DATE: [...] the recovery room in good condition. [facility] Evaluation note Diagnosis Thyroid cancer (HCC)- Primary Malignant neoplasm of thyroid gland [facility] Diagnosis Thyroid cancer (HCC)- Primary Malignant neoplasm of thyroid gland [facility] Missed menses Amenorrhea Absence of menstruation [facility] Thyroid cancer (HCC)- Primary Malignant neoplasm of thyroid gland [facility] Diagnosis Thyroid cancer (HCC)- Primary Malignant neoplasm of thyroid gland [facility] Thyroid cancer (HCC)- Primary Malignant neoplasm of thyroid gland documented in this encounter [facility] Summary Purpose Family History No Family History Records FoundNo Family History Records FoundNo Family History Records Found Advance Directives No Advanced Directives Records FoundNo Advanced Directives Records FoundNo Advanced Directives Records Found Reason for Referral Specialty Diagnoses / Procedures Referred By Alex t Referred To Contact Endocrinology Diagnoses Thyroid cancer (HCC) Procedures CONSULT TO ENDOCRINOLOGY OFFICE/OUTPATIENT [facility] 60 MINUTES Arslan Garcia MD [address] [place] [address] [place] [address] Referral ID Status Reason Start Date Expiration Date Visits Requested Visits Authorized [id number] Authorized PCP Requested Referral 11/12/2023 11/11/2024 1 1 Additional Source Comments Source Comments (unrecognize d section and content) In the event this informatio n is protected by the Federal Confidentiality of Alcohol and Drug Abuse Patient Records regulations: The Federal rules restrict any use of the information to criminally investigate or prosecute any alcohol or drug abuse patient.[facility] the event this information is protected by the Federal Confidentiality of Alcohol and Drug Abuse Patient Records regulations: The Federal rules restrict any use of the information to criminally investigate or prosecute any alcohol or drug abuse patient.[facility] the event this information is protected by the Federal Confidentiality of Alcohol and Drug Abuse Patient Records regulations: The Federal rules restrict any use of the information to criminally investigate or prosecute any alcohol or drug abuse patient.[facility] the event this information is protected by the Federal Confidentiality of Alcohol and Drug Abuse Patient Records regulations: The Federal rules restrict any use of the information to criminally investigate or prosecute any alcohol or drug abuse patient.[facility] the event this information is protected by the Federal Confidentiality of Alcohol and Drug Abuse Patient Records regulations: The Federal rules restrict any use of the information to criminally investigate or prosecute any alcohol or drug abuse patient.[facility] the event this information is protected by the Federal Confidentiality of Alcohol and Drug Abuse Patient Records regulations: The Federal rules restrict any use of the information to criminally investigate or prosecute any alcohol or drug abuse patient.[facility] the event this information is protected by the Federal Confidentiality of Alcohol and Drug Abuse Patient Records regulations: The Federal rules restrict any use of the information to criminally investigate or prosecute any alcohol or drug abuse patient.[facility] the event this information is protected by the Federal Confidentiality of Alcohol and Drug Abuse Patient Records regulations: The Federal rules restrict any use of the information to criminally investigate or prosecute any alcohol or drug abuse patient.[facility] the event this information is protected by the Federal Confidentiality of Alcohol and Drug Abuse Patient Records regulations: The Federal rules restrict any use of the information to criminally investigate or prosecute any alcohol or drug abuse patient.[facility] the event this information is protected by the Federal Confidentiality of Alcohol and Drug Abuse Patient Records regulations: The Federal rules restrict any use of the information to criminally investigate or prosecute any alcohol or drug abuse patient.[facility] the event this information is protected by the Federal Confidentiality of Alcohol and Drug Abuse Patient Records regulations: The Federal rules restrict any use of the information to criminally investigate or prosecute any alcohol or drug abuse patient.[facility] Reason for Visit (unrecogniz ed section and content) Reason Comments Phlebotomy Reason Comments Thyroid Cancer Follow up Reason Comments Missed Appointment Reason Comments Phone Visit Reason Comments Appointment Confirmation Reason Comments Amenorrhea Reason Comments Orders Reason Comments Future Appointment Reason Comments Established Patient Reason Comments Patient Update Orders Future Appointment Care Teams (unrecognized sec tion and content) Dental Ceramist Helper Relationship Specialty Start Date End Date Sara Medellin MD [address] [id number] PCP - General Family Medicine 04/11/22 Dental Ceramist Helper Relationship Specialty Start Date End Date Sara Medellin MD [address] [id number] PCP - General Family Medicine 04/11/22 Dental Ceramist Helper Relationship Specialty Start Date End Date Sara Medellin MD [address] [place] [address] PCP - General Family Medicine 04/11/22 Dental Ceramist Helper Relationship Specialty Start Date End Date Sara Medellin MD PCP - General Family Medicine 04/11/22 Dental Ceramist Helper Relationship Specialty Start Date End Date Sara Medellin MD PCP - General Family Medicine 04/11/22 Dental Ceramist Helper Relationship Specialty Start Date End Date Sara Medellin MD [address] [place] [address] PCP - General Family Medicine 10/03/22 Dental Ceramist Helper Relationship Specialty Start Date End Date Sara Medellin MD PCP - General Family Medicine 04/11/22 Dental Ceramist Helper Relationship Specialty Start Date End Date Sara Medellin MD PCP - General Family Medicine 04/11/22 Dental Ceramist Helper Relationship Specialty Start Date End Date Sara Medellin MD PCP - General Family Medicine 04/11/22 INFORMATION SOURCE (unrecogn ized section and content) DATE CREATED AUTHOR 09/02/2022 [facility] pital DATE CREATED AUTHOR AUTHOR'S ORGANIZ ATION 11/17/2023 [facility] dical [facility] DATE CREATED AUTHOR AUTHOR'S ORGANIZ ATION 11/17/2023 [facility] FOR RECORDS PERTAINING TO PATIENTS WHO [...] ON THE PRIMARY CLINICAL RECORDS. [facility] [employer] [facility]. provides no warranty or guarantee of the accuracy or completeness of information in this document.
--- NOTE | 2023-11-28 21:54 | US_ITS ---
The [address] [address] Patient Name: LITO RAMIREZ MRN: [id number] date: 1990 Sex: F Assigned Patient Location: ER Current Patient Location: ER Accession/Order Number: [id number] Exam Date: 11/28/2023 22:30 Report Date: 11/28/2023 23:52 At the request of: FABRICE MALONE Procedure: US OB placenta LIMITS OB ULTRASOUND: 11/28/2023 10:30 PM EDT HISTORY: . Pain. History of placental abruption. COMPARISON: 09/14/2023 TECHNIQUE: Real-time transabdominal ultrasound examination was performed and multiple images in multiple planes were recorded and reviewed on a PACS workstation. FINDINGS: Limited obstetrical ultrasound. Please follow up with obstetrics when able. There is a single live intrauterine . heart rate 153 bpm. Currently, fetus is in a breech presentation. The placenta is anterior and towards the fundus. There is a heterogeneous hypoechoic area within the placenta anteriorly measuring 1.6 x 1 x 2 cm. This area is avascular. Uncertain if this is a focal area of placental hemorrhage versus a complex placental cervantes. Follow-up with obstetrics to reassess. Subjectively, the NOEL is normal in all 4 quadrants for gestational age. The maternal ovaries are nonvisualized due to gravid uterus. Maternal cervix was not specifically evaluated. No free fluid in the pelvis. Limited study. anatomy was not assessed in part also due to age. Again, follow-up with obstetrics outpatient when age appropriate. Measurements are as follows: The BPD measures 4.12 cm, corresponding to 18 weeks, 3 days. The head circumference measures 15.67 cm, corresponding to 18 weeks, 4 days. The abdominal circumference measures 12.68 cm, corresponding to 18 weeks, 2 days. The femur length is 2.37 cm, corresponding to 17 weeks, 1 days. Estimated ultrasound age of 18 weeks 1 day +/- 1 week 2 days with estimated due date of 04/29/2024. By report this is concordant with patient's LMP. Please refer to measurements in package for complete details. Estimated weight is 211.59 g +/- 31.74 g. US/US OB placenta IMPRESSION: 1. Single live intrauterine . heart rate 153 bpm. 2. Estimated gestational age is 18 weeks, 1 days. 3. anatomic survey was not performed. Follow-up with outpatient obstetrics when age appropriate. 4. Fundus anterior and towards the placenta with heterogeneous hypoechoic avascular area along the anterior placenta of uncertain etiology. Attention on follow-up imaging. See measurements and comments above. 5. Currently, fetus is in a breech presentation. Attention on follow-up imaging. 6. This should be considered a limited assessment and survey. These imaging findings do not exclude additional clinically significant abnormalities. This report should be interpreted in the context of clinical information including patient symptoms and available laboratory findings. Follow-up imaging or other interventions may be appropriate, if indicated by your clinical impression. Electronically authenticated by: RIANA JACOBSON Date: 11/28/2023 23:52
--- NOTE | 2023-11-28 21:55 | ED.PREGNANC1 ---
HPI - General Chief complaint: OB/Uterine Contractions Stated complaint: Pelvic Pain, Cramping, - 19 weeks Time Seen by Provider: 11/28/23 21:41 Source: patient Mode of arrival: walk-in Limitations: no limitations History of Present Illness HPI Narrative: 33-year-old female who is almost 19 weeks presents to the emergency department for pelvic pain. She has had this for about 2 weeks and it is getting worse. No bleeding. She is concerned because she had what sounds like placental abruption with a previous . No fever or trauma. She does not complain of dysuria or hematuria. Related Data Home Medications ?Medication ?Instructions ?Recorded ?Confirmed aspirin 81 mg tablet,delayed mg 11/28/23 release citalopram 20 mg tablet mg 11/28/23 levothyroxine 200 mcg tablet mcg 11/28/23 omeprazole 40 mg capsule,delayed mg 11/28/23 release vitamin with calcium tab 11/28/23 no.72-iron 27 mg-folic acid 1 mg tablet ( Vitamins Plus Low Iron) Allergies Allergy/AdvReac Type Severity Reaction Status Date / Time cefaclor [From Ceclor] Allergy Severe Anaphylaxis Verified 11/28/23 21:43 Penicillins Allergy Severe Anaphylaxis Verified 11/28/23 21:43 Review of Systems ROS Narrative A ten point review of systems is negative except as noted above. PFSH PFSH Social History Smoking status: Current every day smoker Exam Narrative Exam Narrative: Nurses note and vital signs reviewed and patient is not hypoxic. General: The patient appears well and in no apparent distress. Skin: Warm, dry, no pallor noted. There is no rash noted. Head: Normocephalic, atraumatic Eye: Normal conjunctiva, no drainage Ears, Nose, Mouth, and Throat: oral mucosa is moist. Nares patent. Cardiovascular: Regular Rate and Rhythm Respiratory: Patient is in no distress, no accessory muscle use, lungs are clear to auscultation, no wheezing, rales or rhonchi Back: non-tender GI: Soft and Musculoskeletal: The patient has no evidence of calf tenderness, no pitting edema, symmetrical pulses noted bilaterally Neurological: A&O, normal speech Psychiatric: Cooperative Constitutional Vital Signs, click to edit/add: Last Vital Signs Temp 98.7 F 11/28/23 21:38 Pulse 76 11/28/23 21:38 Resp 18 11/28/23 21:38 BP 111/75 11/28/23 21:38 Pulse Ox 99 11/28/23 21:38 O2 Del Method Room Air 11/28/23 21:38 Course Vital Signs Vital signs: Vital Signs Temperature 98.7 F 11/28/23 21:38 Pulse Rate 76 11/28/23 21:38 Respiratory Rate 18 11/28/23 21:38 Blood Pressure 111/75 11/28/23 21:38 Pulse Oximetry 99 11/28/23 21:38 Oxygen Delivery Method Room Air 11/28/23 21:38 Temperature 98.7 F 11/28/23 21:38 Pulse Rate 76 11/28/23 21:38 Respiratory Rate 18 11/28/23 21:38 Blood Pressure 111/75 11/28/23 21:38 Pulse Oximetry 99 11/28/23 21:38 Oxygen Delivery Method Room Air 11/28/23 21:38 MDM - OB/Uterine Contractions MDM Narrative Medical decision making narrative: Ultrasound finding was discussed with the patient. She has an appointment with her rewinder operator in 2 weeks and she will keep that appointment. Otherwise her workup is negative. Treatment diagnosis and follow-up were discussed with the patient. Differential Diagnosis Differential diagnosis: Likely other (Abdominal pain in , placenta abruption, UTI) Lab Data Attestation: I reviewed the patient's lab results. Labs: Lab Results 11/28/23 11/28/23 Range/Units 22:00 22:05 WBC 9.3 (4.0-11.0) 10^3/uL RBC 4.09 L (4.20-5.40) 10^6/uL Hgb 12.0 (12.0-16.0) g/dL Hct 35.6 L (36.0-48.0) % MCV 87.0 (81.0-99.0) fL MCH 29.3 (26.7-34.0) pg MCHC 33.7 (29.9-35.2) g/dL RDW 14.1 (11.0-15.0) % Plt Count 231 (150-450) 10^3/uL MPV 9.6 (9.5-13.5) fL Neut % (Auto) 65.4 (43.0-75.0) % Lymph % (Auto) 26.4 (20.5-60.0) % [place] % (Auto) 5.9 (1.7-12.0) % Eos % (Auto) 1.7 (0.9-7.0) % Baso % (Auto) 0.3 (0.2-2.0) % Neut # (Auto) 6.1 (1.4-6.5) 10^3/uL Lymph # (Auto) 2.5 (1.2-3.8) 10^3/uL [place] # (Auto) 0.6 (0.3-0.8) 10^3/uL Eos # (Auto) 0.2 (0.0-0.7) 10^3/uL Baso # (Auto) 0.0 (0.0-0.1) 10^3/uL Abs Immat Gran (auto) 0.03 (0.00-0.03) 10^3/uL Imm/Tot Granulo (auto) 0.3 (0.0-0.5) % Sodium 136 (136-145) mmol/L Potassium 3.7 (3.5-5.1) mmol/L Chloride 102 (98-107) mmol/L Carbon Dioxide 22.0 (21.0-32.0) mmol/L Anion Gap 15.7 BUN 3.0 L (7.0-18.0) mg/dL Creatinine 0.58 (0.55-1.02) mg/dL Est GFR ( Amer) >60 (>=60) Est GFR (Non-Af Amer) >60 (>=60) BUN/Creatinine Ratio 5.2 Glucose 88 (74-106) mg/dL Calcium 9.0 (8.5-10.1) mg/dL Urine Color Yellow (YELLOW) Urine Clarity Clear (CLEAR) Urine pH 6.5 (5.0-9.0) Ur Specific [place] 1.020 (1.005-1.025) Urine Protein Negative (NEG/TRACE) mg/dL Urine Glucose (UA) Negative (NEGATIVE) mg/dL Urine Ketones Negative (NEGATIVE) mg/dL Urine Occult Blood Negative (NEGATIVE) Urine Nitrite Negative (NEGATIVE) Urine Bilirubin Negative (NEGATIVE) Urine Urobilinogen 2.0 A (0.2-1.0) EU/dL Ur Leukocyte Esterase Trace A (NEGATIVE) Urine RBC 0-2 (0-2) #/HPF Urine WBC 0-2 A (NONE SEEN) #/HPF Ur Squamous Epith Cells Many A (NONE/RARE) #/LPF Urine Crystals None seen (None Seen) #/HPF Urine Bacteria Moderate A (NONE SEEN) #/HPF Urine Casts None seen (NONE SEEN) #/LPF Urine Mucus Large A (NONE SEEN) Ur Culture Indicated? Yes Imaging Data Ultrasound: Radiologist's impression: ITS Impressions Obstetrics Ultrasound 11/28/23 21:54 IMPRESSION: 1. Single live intrauterine . heart rate 153 bpm. 2. Estimated gestational age is 18 weeks, 1 days. 3. anatomic survey was not performed. Follow-up with outpatient obstetrics when age appropriate. 4. Fundus anterior and towards the placenta with heterogeneous hypoechoic avascular area along the anterior placenta of uncertain etiology. Attention on follow-up imaging. See measurements and comments above. 5. Currently, fetus is in a breech presentation. Attention on follow-up imaging. 6. This should be considered a limited assessment and survey. These imaging findings do not exclude additional clinically significant abnormalities. This report should be interpreted in the context of clinical information including patient symptoms and available laboratory findings. Follow-up imaging or other interventions may be appropriate, if indicated by your clinical impression. Electronically authenticated by: RIANA JACOBSON Date: 11/28/2023 23:52 Discharge Plan Discharge Stand Alone Forms: Portal Instructions Chief Complaint: OB/Uterine Contractions Clinical Impression: Abdominal pain in Patient Disposition: Home, Self-Care Time of Disposition Decision: 00:04 Condition: Good Mode of Transportation: Private Vehicle Prescriptions / Home Meds: No Action omeprazole 40 mg capsule,delayed release(DR/EC) aspirin 81 mg tablet,delayed release (DR/EC) citalopram 20 mg tablet levothyroxine 200 mcg tablet Vitamin Plus Low Iron 27 mg iron- 1 mg tablet Print Language: Malawian Instructions: Abdominal Pain in (ED) Additional Instructions: Follow-up with Dr. Jauregui Referrals: Enmanuel Medellin MD [Primary Care Provider] - 1 week
[2023-11-28 22:13] LABS: Basophils Percent Auto 0.3 % (0.2-2.0); Eosinophils Absolute Auto 0.2 10^3/uL (0.0-0.7); Eosinophils Percent Auto 1.7 % (0.9-7.0); Hematocrit 35.6 % (36.0-48.0); Immature Granulocytes Abs Auto 0.03 10^3/uL (0.00-0.03); Immature Granulocytes Pct Auto 0.3 % (0.0-0.5); Lymphocytes Absolute Auto 2.5 10^3/uL (1.2-3.8); Lymphocytes Percent Auto 26.4 % (20.5-60.0); Mean Corpuscular HGB Conc 33.7 g/dL (29.9-35.2); Mean Corpuscular Hemoglobin 29.3 pg (26.7-34.0); Mean Platelet Volume 9.6 fL (9.5-13.5); Monocytes Absolute Auto 0.6 10^3/uL (0.3-0.8); Monocytes Percent Auto 5.9 % (1.7-12.0); Neutrophils Absolute Auto 6.1 10^3/uL (1.4-6.5); Neutrophils Percent Auto 65.4 % (43.0-75.0); Platelet Count 231 10^3/uL (150-450); Red Blood Count 4.09 10^6/uL (4.20-5.40); Red Cell Distribution Width 14.1 % (11.0-15.0); White Blood Count 9.3 10^3/uL (4.0-11.0)
[2023-11-28 22:14] LABS: Bilirubin Urine NEGATIVE (NEGATIVE); Blood Urine NEGATIVE (NEGATIVE); Clarity Urine CLEAR (CLEAR); Color Urine YELLOW (YELLOW); Glucose Urine UA NEGATIVE (NEGATIVE); Ketones Urine NEGATIVE (NEGATIVE); Leukocyte Esterase Urine TRACE (NEGATIVE); Nitrite Urine NEGATIVE (NEGATIVE); Protein Urine NEGATIVE (NEG/TRACE); pH Urine 6.5 (5.0-9.0)
[2023-11-28 22:22] LABS: Anion Gap 15.7; BUN Creatinine Ratio 5.2; Chloride 102 mmol/L (98-107); Estimated GFR (African America >60 (>=60); Estimated GFR (Non-African Ame >60 (>=60); Glucose 88 mg/dL (74-106); Potassium 3.7 mmol/L (3.5-5.1); Sodium 136 mmol/L (136-145)
[2023-11-28 22:22] LABS: Bacteria Urine MODERATE #/HPF (NONE SEEN); Crystals Seen? None Seen #/HPF (None Seen); Mucus Urine LARGE (NONE SEEN); RBC Urine 0-2 #/HPF (0-2); Squamous Epithelial Cell Urine MANY #/LPF (NONE/RARE); WBC Urine 0-2 #/HPF (NONE SEEN)
[2023-11-28 22:23] LABS: Cast Seen? NONE SEEN #/LPF (NONE SEEN); Urine Culture Indicated YES
== END 2023-11-29 00:31 | disposition home or self-care (01) ==
PROVIDERS: Emergency Provider Emergency Medicine; PCP Family Medicine
DX: O26.892 Other specified pregnancy related conditions, second trimester (principal); R10.9 Unspecified abdominal pain; O99.332 Smoking (tobacco) complicating pregnancy, second trimester; F17.200 Nicotine dependence, unspecified, uncomplicated; Z3A.19 19 weeks gestation of pregnancy
CPT/HCPCS: 36415; 76815; 80048; 81001; 85025; 87086; 99284

== ENCOUNTER 2023-12-17 13:04 | Outpatient (OUT) | payer OTHER, SELFPAY ==
--- NOTE | 2023-12-17 13:07 | US_ITS ---
[address] [address] Patient Name: LITO RAMIREZ MRN: [id number] date: 1990 Sex: F Assigned Patient Location: [facility] Current Patient Location: [facility] Accession/Order Number: [id number] Exam Date: 12/17/2023 13:09 Report Date: 12/17/2023 16:33 At the request of: MARTINE LESTER Procedure: US OB anatomy EXAMINATION: US OB anatomy, US OB cervical length HISTORY: anatomic survey Z36.89 COMPARISON: No relevant comparison available. TECHNIQUE: Transabdominal sonographic examination was performed for obstetrical and evaluation. FINDINGS: Number: 1 Heart Rate: 141 bpm H.B. /min Amniotic Fluid Volume: Subjectively normal position: Cephalic presentation, longitudinal lie Placental Location: Anterior.. Cervix Length: 5.4 cm, closed Normal anatomy: Lateral ventricles, cerebellum, posterior fossa, nose, lips, orbits, four-chamber heart, RVOT, LVOT, diaphragm, stomach, kidneys, abdominal cord insertion, bladder, umbilical arteries, three-vessel cord, spine, extremities Other: arrhythmia observed BIOMETRY: BPD: 4.86 cm; 20 weeks 5 days; 36.30 % HC: 18.55 cm; 20 weeks 6 days; 35.50 % AC: 15.27 cm; 20 weeks 3 days; 26.60 % FL: 3.56 cm; 21 weeks 2 days; 50.30 % EFW:366.11 g; 36 %, 13 ounces FL/AC: 23.31 FL/BPD: 73.25 HC/AC: 1.21 GESTATIONAL AGE: Age by EDC: 21 weeks 0 days [place] by EDC: 2024-04-28 Age by current US: 20 weeks 6 days [place] by current US: 2024-04-29 US/US OB anatomy IMPRESSION: arrhythmia Complete placenta previa Otherwise normal anatomy scan Closed cervix measuring 5.4 cm in length *Reference: [employer] Practice Guideline for the performance of Obstetric Ultrasound Examinations, January 28, 2007. Electronically authenticated by: SHAILESH EMERY Date: 12/17/2023 16:33
--- NOTE | 2023-12-17 13:07 | US_ITS ---
[address] [address] Patient Name: LITO RAMIREZ MRN: [id number] date: 1990 Sex: F Assigned Patient Location: [facility] Current Patient Location: [facility] Accession/Order Number: [id number] Exam Date: 12/17/2023 13:09 Report Date: 12/17/2023 16:33 At the request of: MARTINE LESTER Procedure: US OB cervical length EXAMINATION: US OB anatomy, US OB cervical length HISTORY: anatomic survey Z36.89 COMPARISON: No relevant comparison available. TECHNIQUE: Transabdominal sonographic examination was performed for obstetrical and evaluation. FINDINGS: Number: 1 Heart Rate: 141 bpm H.B. /min Amniotic Fluid Volume: Subjectively normal position: Cephalic presentation, longitudinal lie Placental Location: Anterior.. Cervix Length: 5.4 cm, closed Normal anatomy: Lateral ventricles, cerebellum, posterior fossa, nose, lips, orbits, four-chamber heart, RVOT, LVOT, diaphragm, stomach, kidneys, abdominal cord insertion, bladder, umbilical arteries, three-vessel cord, spine, extremities Other: arrhythmia observed BIOMETRY: BPD: 4.86 cm; 20 weeks 5 days; 36.30 % HC: 18.55 cm; 20 weeks 6 days; 35.50 % AC: 15.27 cm; 20 weeks 3 days; 26.60 % FL: 3.56 cm; 21 weeks 2 days; 50.30 % EFW:366.11 g; 36 %, 13 ounces FL/AC: 23.31 FL/BPD: 73.25 HC/AC: 1.21 GESTATIONAL AGE: Age by EDC: 21 weeks 0 days [place] by EDC: 2024-04-28 Age by current US: 20 weeks 6 days [place] by current US: 2024-04-29 US/US OB cervical length IMPRESSION: arrhythmia Complete placenta previa Otherwise normal anatomy scan Closed cervix measuring 5.4 cm in length *Reference: [employer] Practice Guideline for the performance of Obstetric Ultrasound Examinations, January 28, 2007. Electronically authenticated by: SHAILESH EMERY Date: 12/17/2023 16:33
== END 2023-12-17 13:05 | disposition home or self-care (01) ==
LOC: NOMS 13:04
PROVIDERS: PCP Family Medicine; Visit Provider Obstetrics & Gynecology
DX: Z36.89 Encounter for other specified antenatal screening (principal); Z3A.21 21 weeks gestation of pregnancy
CPT/HCPCS: 76805; 76817

== ENCOUNTER 2024-01-02 13:53 | Outpatient (OUT) | payer OTHER, SELFPAY ==
--- OUTSIDE RECORDS SUMMARY | 2024-01-02 14:12 | XMS_ITS | CCD ---
Author Organization [facility] Care Team Providers Care Card Lacer Name Role Phone Sara Medellin MD Primary Care Provider [phone] RAIZA, DR GUERRA Consulting Unavailable THEO ., [...] Unavailable HOY ., DR RUIZ Admitting Unavailable WEST, DR SHAILESH Clark Consulting Unavailable TIMMIS, DR [...] ., DR RUIZ Primary Care Unavailable HARRY, HDRUV Consulting Unavailable HARRY, DHRUV Attending Unavailable HARRY, DHRUV Admitting Unavailable HOY ., DR RUIZ Primary Care Unavailable Sara Medellin MD Primary Care Provider [phone] Sara Medellin MD Primary Care Provider [phone] Sara Medellin MD Primary Care Provider [phone] SARA MEDELLIN Primary Care Unavailable Arslan GARCIA Attending Unavailable SARA MEDELLIN Primary Care Unavailable Arslan GARCIA Attending Unavailable SARA MEDELLIN Primary Care Unavailable SHANIA, ACOSTA Attending Unavailable SHANIA, ACOSTA Attending Unavailable SHANIA, ACOSTA Attending Unavailable SHANIA, ACOSTA Attending Unavailable Allergies Allergy Classification Reported Allergen(s) Allergy Type Date of Onset Reaction(s) Facility (14 sources) Cefaclor; Translations: [CEFACLOR] Drug Allergy 2 Hives, Shortness of Breath, Anaphylaxis [facility] (12 sources) Penicillins; Translations: [PENICILLINS] Drug Allergy 2 Hives, Shortness of Breath [facility] (2 sources) Cefaclor Drug Allergy 4 [facility] (2 sources) Penicillins Drug allergy (disorder) 4 [facility] (2 sources) Penicillin G sodium [...] Comment on above: TAKE ONE TABLET BY [facility] TWICE A DAY FOR 30 DAYS mometasone [...] on above: Take 1 capsule by mo [facility] once daily. 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 She would like to see endocrinology in [place]. Pt's OB did adjust synthroid recently and has been monitoring labs. TREASURE- please sign pended order. PSS- please arrange visit when order is signed. KAREN Peters Sec, Danna Mcdowell RN Previous Messages ----- Message ----- From: Arslan Garcia MD Sent: 11/02/2023 12:08 PM EDT To: Obi Kern Sec; Radt Sand Rad Nurse Pool Given what sounds like patient is in first trimester and ongoing concerns of breast-feeding recommend she follow-up with endocrinology. Obi Genao 11/12/2023 11:26 AM Signed Lawanda please send records to She cardona in your box Clarissa Harkins 11/12/2023 1:18 PM Signed Records faxed to Dr. Arteaga. Erlin Dunlap, Obi 11/13/2023 9:[address] Christine office received ref and they will be calling patient to schedule appointment. Nguyen Sharmaine Meryl 11/15/2023 1:[address] Arteaga office spoke with Miguel. She states she has patient on her list to give a call today to get scheduled. Merylmaryann Nguyen Pss, Meryl 11/28/2023 1:[address] Arteaga office. His office called patient on 11/21 and left message for her to call their office back to get scheduled. As of now they are waiting to hear back from patient. Merylmaryann Nguyen Pss, Meryl 12/05/2023 9:12 AM Signed Called left message for Dr Arteaga office to call our office back re: status of this referral. Meryl Nguyen Pss, Meryl 12/10/2023 1:[address] Arteaga office spoke with Miguel. Per Miguel she states she called and left patient message on 11/21. As of now their office is waiting to hear back from patient. Meryl Nguyen Pss Allergies As of Date: [...] [C73] Order(s):CONSULT TO ENDOCRINOLOGY [9007] Order #: [id number]: 1 FUTURE Prescriptions as of 12/10/2023 - levothyroxine (SYNTHROID) 175 mcg tablet Take [...] Encounter Status:Closed by DANNA PITTS on 11/13/23 [facility] Emelina 07-19-2023 [facility] AMANDA CORTEZ ([id number]) 1990 F Date Time Provider Department 07/19/23 EDNA SAL During your visit today, we recorded the following information about you: Edna Sal RN 07/19/2023 10:42 AM Signed Pt called to request labs sent to [facility]. Faxed to central scheduling. Edna [...] Encounter Status:Closed by EDNA SAL on 07/19/23 [facility] Emelina 06-25-2023 [facility] Telephone (RADMORGANA) AMANDA CORTEZ ([id number]) 1990 F Date Time Provider Department 06/25/23 [...] phone visit for tomorrow. Thank you Danna Pitts, Danna Hein, RN 08/14/2023 2:28 PM Signed Please reach [...] Signed Patients lab orders were sent to [facility] and I scheduled her a phone [...] cancer (HCC) [C73] Order(s):T4/THYROXINE [SQT4] Order #: [id number] FUTURE THYROID STIMULATING HORMONE [SQTSH] Order #: [id number] FUTURE THYROGLOBULIN, SERUM WITH REFLEX TO IA OR LC-MS/MS [SQTHYRORF] Order #: [id number] FUTURE Prescriptions as of 08/23/2023 - levothyroxine [...] Encounter Status:[facility]NCCAP[facility] AMANDA CORTEZ ([id number]) 1990 F Date Time Provider Department 02/14/23 Arslan GARCIA [facility] During your visit today, we recorded the following information about you: Obi Genao 02/14/2023 9:54 AM Signed Patient is scheduled for appointments Arslan Garcia MD [facility]; Obi Genao 4 months with labs. Orders have been placed in [facility]. Allergies As of Date: 02/14/2023 Noted Allergy [...] OBI GENAO on 02/14/23 Normal [facility] CBC W Auto Differential pane l (Bld)on 02-01-2023 Basophils (Bld) [#/Vol] 0.04 10*3/uL Normal <0.11 [facility] Comment on above: Order Comment: Speci men Type: BLOOD SPECIMEN Ordering Facility: [facility] Address: [address] [place] [address] Performed By: #### 5 7021-8 #### [facility] CLIA [id number] [address] [place] [address] 36778 Basophils/100 WBC (Bld) 0.5 % Normal [facility] Comment on above: Order Comment: Speci men Type: BLOOD SPECIMEN Ordering Facility: [facility] Address: [address] [place] [address] Performed By: #### 5 7021-8 #### [facility] CLIA [id number] [address] [place] [address] 82100 Differential cell count method Nom (Bld) Auto Normal [facility] Comment on above: Order Comment: Speci men Type: BLOOD SPECIMEN Ordering Facility: [facility] Address: [address] [place] [address] Performed By: #### 5 7021-8 #### [facility] CLIA [id number] [address] [place] [address] 35217 Eosinophils (Bld) [#/Vol] 0.19 10*3/uL Normal <0.46 [facility] Comment on above: Order Comment: Speci men Type: BLOOD SPECIMEN Ordering Facility: [facility] Address: [address] [place] [address] Performed By: #### 5 7021-8 #### [facility] CLIA [id number] [address] [place] [address] 33035 Eosinophils/100 WBC (Bld) 2.5 % Normal [facility] Comment on above: Order Comment: Speci men Type: BLOOD SPECIMEN Ordering Facility: [facility] Address: [address] [place] [address] Performed By: #### 5 7021-8 #### [facility] CLIA [id number] [address] [place] [address] 69756 Erythrocyte distribution width (RBC) [Ratio] 13.3 % Normal 11.5-15.0 [facility] Comment on above: Order Comment: Speci men Type: BLOOD SPECIMEN Ordering Facility: [facility] Address: [address] [place] [address] Performed By: #### 5 7021-8 #### [facility] CLIA [id number] [address] [place] [address] 86404 Hematocrit (Bld) [Volume fraction] 47.7 % High 36.0-46.0 [facility] Comment on above: Order Comment: Speci men Type: BLOOD SPECIMEN Ordering Facility: [facility] Address: [address] [place] [address] Performed By: #### 5 7021-8 #### [facility] CLIA [id number] [address] [place] [address] 41624 Hemoglobin (Bld) [Mass/Vol] 15.6 g/dL High 11.5-15.5 [facility] Comment on above: Order Comment: Speci men Type: BLOOD SPECIMEN Ordering Facility: [facility] Address: [address] [place] [address] Performed By: #### 5 7021-8 #### [facility] CLIA [id number] [address] [place] [address] 53711 Immature granulocytes (Bld) [#/Vol] 0.03 10*3/uL Normal <0.10 [facility] Comment on above: Order Comment: Speci men Type: BLOOD SPECIMEN Ordering Facility: [facility] Address: [address] [place] [address] Performed By: #### 5 7021-8 #### [facility] CLIA [id number] [address] [place] [address] 27308 Immature granulocytes/100 WBC (Bld) 0.4 % Normal [facility] Comment on above: Order Comment: Speci men Type: BLOOD SPECIMEN Ordering Facility: [facility] Address: [address] [place] [address] Performed By: #### 5 7021-8 #### [facility] CLIA [id number] [address] [place] [address] 02444 Lymphocytes (Bld) [#/Vol] 2.30 10*3/uL Normal 1.00-4.00 [facility] Comment on above: Order Comment: Speci men Type: BLOOD SPECIMEN Ordering Facility: [facility] Address: [address] [place] [address] Performed By: #### 5 7021-8 #### [facility] CLIA [id number] [address] [place] [address] 86528 Lymphocytes/100 WBC (Bld) 29.7 % Normal [facility] Comment on above: Order Comment: Speci men Type: BLOOD SPECIMEN Ordering Facility: [facility] Address: [address] [place] [address] Performed By: #### 5 7021-8 #### [facility] CLIA [id number] [address] [place] [address] 39935 MCH (RBC) [Entitic mass] 28.8 pg Normal 26.0-34.0 [facility] Comment on above: Order Comment: Speci men Type: BLOOD SPECIMEN Ordering Facility: [facility] Address: [address] [place] [address] Performed By: #### 5 7021-8 #### [facility] CLIA [id number] [address] [place] [address] 53029 MCHC (RBC) [Mass/Vol] 32.7 g/dL Normal 30.5-36.0 [facility] Comment on above: Order Comment: Speci men Type: BLOOD SPECIMEN Ordering Facility: [facility] Address: [address] [place] [address] Performed By: #### 5 7021-8 #### [facility] CLIA [id number] [address] [place] [address] 69357 MCV (RBC) [Entitic vol] 88.2 fL Normal 80.0-100.0 [facility] Comment on above: Order Comment: Speci men Type: BLOOD SPECIMEN Ordering Facility: [facility] Address: [address] [place] [address] Performed By: #### 5 7021-8 #### [facility] CLIA [id number] [address] [place] [address] 42643 Monocytes (Bld) [#/Vol] 0.49 10*3/uL Normal <0.87 [facility] Comment on above: Order Comment: Speci men Type: BLOOD SPECIMEN Ordering Facility: [facility] Address: [address] [place] [address] Performed By: #### 5 7021-8 #### [facility] CLIA [id number] [address] [place] [address] 43210 Monocytes/100 WBC (Bld) 6.3 % Normal [facility] Comment on above: Order Comment: Speci men Type: BLOOD SPECIMEN Ordering Facility: [facility] Address: [address] [place] [address] Performed By: #### 5 7021-8 #### [facility] CLIA [id number] [address] [place] [address] 32759 Neutrophils (Bld) [#/Vol] 4.70 10*3/uL Normal 1.45-7.50 [facility] Comment on above: Order Comment: Speci men Type: BLOOD SPECIMEN Ordering Facility: [facility] Address: [address] [place] [address] Performed By: #### 5 7021-8 #### [facility] CLIA [id number] [address] [place] [address] 92293 Neutrophils/100 WBC (Bld) 60.6 % Normal [facility] Comment on above: Order Comment: Speci men Type: BLOOD SPECIMEN Ordering Facility: [facility] Address: [address] [place] [address] Performed By: #### 5 7021-8 #### [facility] CLIA [id number] [address] [place] [address] 79684 Nucleated RBC (Bld) [#/Vol] 10*3/uL Normal <0.01 [facility] Comment on above: Order Comment: Speci men Type: BLOOD SPECIMEN Ordering Facility: [facility] Address: [address] [place] [address] Performed By: #### 5 7021-8 #### [facility] CLIA [id number] [address] [place] [address] 13511 Nucleated RBC/100 WBC (Bld) [Ratio] 0.0 /100 WBC Normal [facility] Comment on above: Order Comment: Speci men Type: BLOOD SPECIMEN Ordering Facility: [facility] Address: [address] [place] [address] Performed By: #### 5 7021-8 #### [facility] CLIA [id number] [address] [place] [address] 77553 Platelet mean volume (Bld) [Entitic vol] 9.6 fL Normal 9.0-12.7 [facility] Comment on above: Order Comment: Speci men Type: BLOOD SPECIMEN Ordering Facility: [facility] Address: [address] [place] [address] Performed By: #### 5 7021-8 #### [facility] CLIA [id number] [address] [place] [address] 71993 Platelets (Bld) [#/Vol] 248 10*3/uL Normal 150-400 [facility] Comment on above: Order Comment: Speci men Type: BLOOD SPECIMEN Ordering Facility: [facility] Address: [address] [place] [address] Performed By: #### 5 7021-8 #### [facility] CLIA [id number] [address] [place] [address] 33072 RBC (Bld) [#/Vol] 5.41 10*6/uL High 3.90-5.20 [facility] Comment on above: Order Comment: Speci men Type: BLOOD SPECIMEN Ordering Facility: [facility] Address: [address] [place] [address] Performed By: #### 5 7021-8 #### [facility] CLIA [id number] [address] [place] [address] 51060 WBC (Bld) [#/Vol] 7.75 10*3/uL Normal 3.70-11.00 [facility] Comment on above: Order Comment: Speci men Type: BLOOD SPECIMEN Ordering Facility: [facility] Address: [address] [place] [address] Performed By: #### 5 7021-8 #### [facility] CLIA [id number] [address] [place] [address] 71725 T3 SerPl-mCncon 02-01-2023 T3 [Mass/Vol] 123 ng/dL Normal 79-165 [facility] Comment on above: Order Comment: Speci men Type: BLOOD SPECIMEN Ordering Facility: [facility] Address: [address] [place] [address] Performed By: #### 3 053-6, 3016-3, 3026-2 #### [facility] CLIA [id number] [facility] [place] [address] [place] T4 SerPl-mCncon 02-01-2023 T4 [Mass/Vol] 11.9 ug/dL High 5.5-10.2 [facility] Comment on above: Order Comment: Speci men Type: BLOOD SPECIMEN Ordering Facility: [facility] Address: [address] [place] [address] Performed By: #### 3 053-6, 3016-3, 3026-2 #### [facility] CLIA [id number] [address] [place] [address] [place] THYROGLOBULIN BY MASS SPECTR OMETRYon 02-01-2023 THYROGLOBULIN, LC-MS/MS <0.5 Low 1.3-31.8 [facility] Comment on above: Order Comment: Chel iverson Type: BLOOD SPECIMEN Ordering Facility: [facility] Address: [facility] [address] Result Comment: Results obtained with different test [...] developed and its performance characteristics determined by [facility]. It has not been cleared or approved by the [place] Food and Drug Administration. This test was performed in a CLIA certified laboratory and is intended for clinical purposes. Performed By: [facility] [address] [place] [address] Auxiliary Operator: Prem Willis MD, PhD CLIA Number: [id number] Performed By: #### T [facility] #### [facility] CLIA [id number] [address] [place] [address] TSH SerPl-[facility] 02-01-2023 TSH Qn 0.960 m[IU]/L Normal 0.270-4.200 [facility] Comment on above: Order Comment: Chel iverson Type: BLOOD SPECIMENOrdering Facility: [facility] Address: [facility] [address] Result Comment: If t he patient is , TSH reference range varies by gestational period: First Trimester (weeks 9-12): 0.180-2.990 mIU/L Second Trimester: 0.110-3.980 mIU/L Third Trimester: 0.480-4.710 mIU/L Suman Graf et al. A Practical Approach for the Verifications and Determination of Site- and Trimester-Specific Reference Intervals for Thyroid Function tests in . Thyroid, 2019:29:3:412-420. Rajesh Holman, et al. 2017 Guidelines of the [place] Thyroid Association for the Diagnosis and Management of Thyroid Disease during and the . Thyroid, 2017:27:3:315-389. Performed By: #### 3 053-6, 3016-3, 3026-2 ####[facility] [id number] [place] [address] [place] PREG QUANT HCGon 08-17-2022 HCG QUANT 1 mIU/mL Normal [facility] Comment on above: Performed By: #### P REGQNT #### [facility] [address] [place] [address] Dr. Prashant Kang HCG RANGE SEE BELOW Normal [facility] Comment on above: Result Comment: 5-50 0.2-1 WEEK 50-500 1-2 WEEKS 100-5,000 2-3 WEEKS 500-10,000 3-4 WEEKS 1,000-50,000 4-5 WEEKS 10,000-100,000 5-6 WEEKS 15,000-200,000 6-8 WEEKS 10,000-100,000 2-3 MONTHS Performed By: #### P REGQNT #### [facility] [address] [place] [address] Dr. Prashant Kang PREG QUANT HCGon 07-04-2022 HCG QUANT <1 Normal [facility] Comment on above: Performed By: #### P REGQNT #### [facility] [address] [place] [address] Dr. Prashant Kang HCG RANGE SEE BELOW Normal [facility] Comment on above: Result Comment: 5-50 0.2-1 WEEK 50-500 1-2 WEEKS 100-5,000 2-3 WEEKS 500-10,000 3-4 WEEKS 1,000-50,000 4-5 WEEKS 10,000-100,000 5-6 WEEKS 15,000-200,000 6-8 WEEKS 10,000-100,000 2-3 MONTHS Performed By: #### P REGQNT #### [facility] [address] [place] [address] Dr. Prashant Kang PREG QUANT HCGon 05-16-2022 HCG QUANT <1 Normal [facility] Comment on above: Performed By: #### P TT, PT #### [facility] [address] [place] [address] Dr. Prashant Kang HCG RANGE SEE BELOW Normal [facility] Comment on above: Result Comment: 5-50 0.2-1 WEEK 50-500 1-2 WEEKS 100-5,000 2-3 WEEKS 500-10,000 3-4 WEEKS 1,000-50,000 4-5 WEEKS 10,000-100,000 5-6 WEEKS 15,000-200,000 6-8 WEEKS 10,000-100,000 2-3 MONTHS Performed By: #### P TT, PT #### [facility] [address] [place] [address] Dr. Prashant Kang PREG QUANT HCGon 05-08-2022 HCG QUANT <1 [facility] Comment on above: Performed By: #### P REGQNT #### [facility] [address] [place] [address] Dr. Prashant Kang HCG RANGE SEE BELOW [facility] Comment on above: Result Comment: 5-50 0.2-1 WEEK 50-500 1-2 WEEKS 100-5,000 2-3 WEEKS 500-10,000 3-4 WEEKS 1,000-50,000 4-5 WEEKS 10,000-100,000 5-6 WEEKS 15,000-200,000 6-8 WEEKS 10,000-100,000 2-3 MONTHS Performed By: #### P REGQNT #### [facility] [address] [place] [address] Dr. Prashant Kang CALCIUMon 03-08-2022 Calcium [Mass/Vol] 8.6 mg/dL Normal 8.5-10.1 [facility] Comment on above: Performed By: #### C A #### [facility] [address] [place] [address] Dr. Prashant Kang CALCIUMon 03-07-2022 Calcium [Mass/Vol] 8.4 mg/dL Critically low 8.5-10.1 [facility] Comment on above: Performed By: #### C A #### [facility] [address] [place] [address] Dr. Prashant Kang PREG HCG QUALon 03-07-2022 , QUAL Negative Normal NEGATIVE [facility] Comment on above: Performed By: #### P REG #### [facility] [address] [place] [address] Dr. Prashant Kang Covid-19 PCR (CVDTB)on SARS-CoV-2 (COVID-19) RNA DENEEN+probe Ql (Unsp spec) Not detected Normal NOT DETECTED [facility] Comment on above: Result Comment: This test is not yet approved or cleared by the [place] FDA. When there are no FDA-approved or cleared tests available, and other criteria are met, FDA can make tests available under an emergency access mechanism called an Emergency Use Authorization (EUA). The EUA for this test is supported by the Power Shovel Engineer of Health and Human Service's (HHS's) declaration [...] SARS-CoV-2. Performed By: #### C VDTBH #### [facility] [address] [place] [address] Dr. Prashant Kang CALCIUMon 02-24-2022 Calcium [Mass/Vol] 8.8 mg/dL Normal 8.5-10.1 [facility] Comment on above: Performed By: #### P TT, PT #### [facility] [id number] Prashant Kang CBC AUTO DIFFon 02-24-2022 BASO # 0.0 103/ul Normal 0.0-0.1 [facility] Comment on above: Performed By: #### P TT, PT #### [facility] [address] [place] [address] Dr. Prashant Kang Basophils/100 WBC (Bld) 0.3 % Normal 0.2-2.0 [facility] Comment on above: Performed By: #### P TT, PT #### [facility] [address] [place] [address] Dr. Prashant Kang EO # 0.1 103/ul Normal 0.0-0.7 [facility] Comment on above: Performed By: #### P TT, PT #### [facility] [address] [place] [address] Dr. Prashant Kang Eosinophils/100 WBC (Bld) 1.5 % Normal 0.9-7.0 [facility] Comment on above: Performed By: #### P TT, PT #### [facility] [address] [place] [address] Dr. Prashant Kang Erythrocyte distribution width (RBC) [Ratio] 13.8 % Normal 11.0-15.0 [facility] Comment on above: Performed By: #### P TT, PT #### [facility] [address] [place] [address] Dr. Prashant Kang Hematocrit (Bld) [Volume fraction] 45.5 % Normal 36.0-48.0 [facility] Comment on above: Performed By: #### P TT, PT #### [facility] [address] [place] [address] Dr. Prashant Kang Hemoglobin (Bld) [Mass/Vol] 14.6 g/dL Normal 12.0-16.0 [facility] Comment on above: Performed By: #### P TT, PT #### [facility] [address] [place] [address] Dr. Prashant Kang IG # 0.02 10e3/ul Normal 0.00-0.03 [facility] Comment on above: Performed By: #### P TT, PT #### [facility] [address] [place] [address] Dr. Prashant Kang IG % 0.3 % Normal 0.0-0.5 [facility] Comment on above: Performed By: #### P TT, PT #### [facility] [address] [place] [address] Dr. Prashant Kang LYMPH # 1.6 103/ul Normal 1.2-3.8 [facility] Comment on above: Performed By: #### P TT, PT #### [facility] [address] [place] [address] Dr. Prashant Kang Lymphocytes/100 WBC (Bld) 23.5 % Normal 20.5-60.0 [facility] Comment on above: Performed By: #### P TT, PT #### [facility] [address] [place] [address] Dr. Prashant Kang MANUAL DIFF REQ NO Normal [facility] Comment on above: Performed By: #### P TT, PT #### [facility] [address] [place] [address] Dr. Prashant Kang MCH (RBC) [Entitic mass] 26.5 pg Critically low 26.7-34.0 [facility] Comment on above: Performed By: #### P TT, PT #### [facility] [address] [place] [address] Dr. Prashant Kang MCHC (RBC) [Mass/Vol] 32.1 g/dL Normal 29.9-35.2 [facility] Comment on above: Performed By: #### P TT, PT #### [facility] [address] [place] [address] Dr. Prashant Kang MCV (RBC) [Entitic vol] 82.7 fL Normal 81.0-99.0 [facility] Comment on above: Performed By: #### P TT, PT #### [facility] [address] [place] [address] Dr. Prashant Kang MONO # 0.5 103/ul Normal 0.3-0.8 [facility] Comment on above: Performed By: #### P TT, PT #### [facility] [address] [place] [address] Dr. Prashant Kang Monocytes/100 WBC (Bld) 7.5 % Normal 1.7-12.0 [facility] Comment on above: Performed By: #### P TT, PT #### [facility] [address] [place] [address] Dr. Prashant Kang NEUT # 4.6 103/ul Normal 1.4-6.5 [facility] Comment on above: Performed By: #### P TT, PT #### [facility] [address] [place] [address] Dr. Prashant Kang Neutrophils/100 WBC (Bld) 66.9 % Normal 43.0-75.0 [facility] Comment on above: Performed By: #### P TT, PT #### [facility] [address] [place] [address] Dr. Prashant Kang Platelet mean volume (Bld) [Entitic vol] 9.9 fL Normal 9.5-13.5 [facility] Comment on above: Performed By: #### P TT, PT #### [facility] [address] [place] [address] Dr. Prashant Kang PLT 239 103/ul Normal 150-450 [facility] Comment on above: Performed By: #### P TT, PT #### [facility] [address] [place] [address] Dr. Prashant Kang RBC 5.50 106/ul Critically high 4.20-5.40 [facility] Comment on above: Performed By: #### P TT, PT #### [facility] [address] [place] [address] Dr. Prashant Kang WBC 6.8 103/ul Normal 4.0-11.0 [facility] Comment on above: Performed By: #### P TT, PT #### [facility] [address] [place] [address] Dr. Prashant Kang MAGNESIUMon 02-24-2022 Magnesium [Mass/Vol] 2.0 mg/dL Normal 1.8-2.4 [facility] Comment on above: Performed By: #### P TT, PT #### [facility] [address] [place] [address] Dr. Prashant Kang PHOSPHORUSon 02-24-2022 Phosphate [Mass/Vol] 3.3 mg/dL Normal 2.6-4.7 [facility] Comment on above: Performed By: #### P TT, PT #### [facility] [address] [address] [address] Prashant Kang PROTIMEon 02-24-2022 INR Coag (PPP) [Relative time] 1.01 {INR} Normal [facility] Comment on above: Performed By: #### P TT, PT #### [facility] [address] [place] [address] Dr. Prashant Kang INR GUIDELINES SEE BELOW Normal The [facility] Comment on above: Result Comment: SALIMA RED INR: 2.0 - 3.0 CONDITIONS NOT LISTED BELOW 2.5 - 3.5 FOR PROSTHETIC HEART VALVE REPLACEMENT 2.5 - 3.5 RECURRENT THROMBOSIS Performed By: #### P TT, PT #### [facility] [address] [place] [address] Dr. Prashant Kang PT Coag (PPP) [Time] 10.9 s Normal 9.0-11.6 [facility] Comment on above: Performed By: #### P TT, PT #### [facility] [address] [place] [address] Dr. Prashant Kang PTTon 02-24-2022 aPTT Coag (Bld) [Time] 28.9 s Normal 22.3-36.2 [facility] Comment on above: Performed By: #### P TT, PT #### [facility] [address] [place] [address] Dr. Prashant Kang TSHon 02-24-2022 TSH 1.163 uIU/mL Normal 0.358-3.740 [facility] Comment on above: Performed By: #### P TT, PT #### [facility] [address] [place] [address] Dr. Prashant Kang US THYROID FN ASP BXon 02-09 US THYROID FN ASP BX Begin Addendum #1 COLLECTED DATE/TIME: 02/03/2022 11:36 EDT Final Diagnosis Report for [facility] [place] (A/B) THYROID ISTHMUS NODULE, FINE NEEDLE ASPIRATION: -SUSPICIOUS FOR MALIGNANCY. -SUSPICIOUS FOR PAPILLARY THYROID CARCINOMA. 02/09/[address] Eastman. Verified with Andree that report was present in office (BM). Original Report EXAMINATION: US THYROID FN ASP [...] 2. Pathology results are pending. Normal [facility] CT NECK ST W CONon 2 [...] SHAILESH EMERY Date: 2022-01-20 13:05 Normal [facility] US THYROIDon 01-20-2022 US THYROID EXAMINATION: [...] isthmus nodule. Consider fine-needle aspiration TI-RADS: The [employer] TI-RADS committee's white paper recommendations for thyroid lesions classified as TR4 (moderately suspicious) are listed below: > 1.0 cm. Follow-up ultrasound in 1, 2, 3, and 5 years. > 1.5 cm. FNA. J. Am More Radiol 2017;[id number]. Electronically authenticated by: SHAILESH EMERY Date: 2022-01-20 21:46 Normal [facility] CBC AUTO DIFFon 01-08-2022 BASO # 0.0 103/ul Normal 0.0-0.1 [facility] Comment on above: Performed By: #### P TT, PT #### [facility] [address] [place] [address] Dr. Prashant Kang Basophils/100 WBC (Bld) 0.4 % Normal 0.2-2.0 [facility] Comment on above: Performed By: #### P TT, PT #### [facility] [address] [place] [address] Dr. Prashant Kang EO # 0.2 103/ul Normal 0.0-0.7 [facility] Comment on above: Performed By: #### P TT, PT #### [facility] [address] [place] [address] Dr. Prashant Kang Eosinophils/100 WBC (Bld) 3.4 % Normal 0.9-7.0 [facility] Comment on above: Performed By: #### P TT, PT #### [facility] [address] [place] [address] Dr. Prashant Kang Erythrocyte distribution width (RBC) [Ratio] 14.6 % Normal 11.0-15.0 [facility] Comment on above: Performed By: #### P TT, PT #### [facility] [address] [place] [address] Dr. Prashant Kang Hematocrit (Bld) [Volume fraction] 42.9 % Normal 36.0-48.0 [facility] Comment on above: Performed By: #### P TT, PT #### [facility] [address] [place] [address] Dr. Prashant Kang Hemoglobin (Bld) [Mass/Vol] 13.4 g/dL Normal 12.0-16.0 [facility] Comment on above: Performed By: #### P TT, PT #### [facility] [address] [address] [address] Prashant Kang IG # 0.02 10e3/ul Normal 0.00-0.03 [facility] Comment on above: Performed By: #### P TT, PT #### [facility] [address] [address] [address] Prashant Kang IG % 0.3 % Normal 0.0-0.5 [facility] Comment on above: Performed By: #### P TT, PT #### [facility] [address] [address] [address] Prashant Kang LYMPH # 2.0 103/ul Normal 1.2-3.8 [facility] Comment on above: Performed By: #### P TT, PT #### [facility] [address] [address] [address] Prashant Kang Lymphocytes/100 WBC (Bld) 29.7 % Normal 20.5-60.0 [facility] Comment on above: Performed By: #### P TT, PT #### [facility] [address] [address] [address] Prashant Kang MANUAL DIFF REQ NO Normal [facility] Comment on above: Performed By: #### P TT, PT #### [facility] [address] [address] [address] Prashant Kang MCH (RBC) [Entitic mass] 26.3 pg Critically low 26.7-34.0 [facility] Comment on above: Performed By: #### P TT, PT #### [facility] [address] [address] [address] Prashant Kang MCHC (RBC) [Mass/Vol] 31.2 g/dL Normal 29.9-35.2 [facility] Comment on above: Performed By: #### P TT, PT #### [facility] [address] [place] [address] Dr. Prashant Kang MCV (RBC) [Entitic vol] 84.1 fL Normal 81.0-99.0 [facility] Comment on above: Performed By: #### P TT, PT #### [facility] [address] [place] [address] Dr. Prashant Kang MONO # 0.6 103/ul Normal 0.3-0.8 [facility] Comment on above: Performed By: #### P TT, PT #### [facility] [address] [place] [address] Dr. Prashant Kang Monocytes/100 WBC (Bld) 8.7 % Normal 1.7-12.0 [facility] Comment on above: Performed By: #### P TT, PT #### [facility] [address] [place] [address] Dr. Prashant Kang NEUT # 3.9 103/ul Normal 1.4-6.5 [facility] Comment on above: Performed By: #### P TT, PT #### [facility] [address] [place] [address] Dr. Prashant Kang Neutrophils/100 WBC (Bld) 57.5 % Normal 43.0-75.0 [facility] Comment on above: Performed By: #### P TT, PT #### [facility] [address] [place] [address] Dr. Prashant Kang Platelet mean volume (Bld) [Entitic vol] 9.9 fL Normal 9.5-13.5 [facility] Comment on above: Performed By: #### P TT, PT #### [facility] [address] [place] [address] Dr. Prashant Kang PLT 241 103/ul Normal 150-450 [facility] Comment on above: Performed By: #### P TT, PT #### [facility] [address] [place] [address] Dr. Prashant Kang RBC 5.10 106/ul Normal 4.20-5.40 [facility] Comment on above: Performed By: #### P TT, PT #### [facility] [address] [place] [address] Dr. Prashant Kang WBC 6.8 103/ul Normal 4.0-11.0 [facility] Comment on above: Performed By: #### P TT, PT #### [facility] [address] [place] [address] Dr. Prashant Kang GROUP A STREP CULTUREon 12-29 S. pyogenes Ag Ql (Unsp spec) Culture Observations: NEGATIVE FOR GROUP A STREPTOCOCCUS. Normal [facility] Comment on above: Performed By: #### P TT, PT #### [facility] [address] [place] [address] Dr. Prashant Kang PROF 14(COMP METB)on 022 Albumin [Mass/Vol] 3.6 g/dL Normal 3.4-5.0 [facility] Comment on above: Performed By: #### C MP #### [facility] [address] [place] [address] Dr. Prashant Kang Albumin/Globulin [Mass ratio] 0.8 {ratio} Normal [facility] Comment on above: Performed By: #### C MP #### [facility] [address] [place] [address] Dr. Prashant Kang ALP [Catalytic activity/Vol] 74 U/L Normal 46-116 [facility] Comment on above: Performed By: #### C MP #### [facility] [address] [place] [address] Dr. Prashant Kang ALT [Catalytic activity/Vol] 40 U/L Normal 14-59 [facility] Comment on above: Performed By: #### C MP #### [facility] [address] [place] [address] Dr. Prashant Kang Anion gap [Moles/Vol] 14.0 mmol/L Normal [facility] Comment on above: Performed By: #### C MP #### [facility] [address] [address] [address] Prashant Kang AST [Catalytic activity/Vol] 31 U/L Normal 15-37 [facility] Comment on above: Performed By: #### C MP #### [facility] [address] [address] [address] Prashant Kang Bilirubin [Mass/Vol] 0.4 mg/dL Normal 0.2-1.0 [facility] Comment on above: Performed By: #### C MP #### [facility] [address] [address] [address] Prashant Kang Calcium [Mass/Vol] 8.8 mg/dL Normal 8.5-10.1 [facility] Comment on above: Performed By: #### C MP #### [facility] [address] [address] [address] Prashant Kang Chloride [Moles/Vol] 105 mmol/L Normal 98-107 [facility] Comment on above: Performed By: #### C MP #### [facility] [address] [address] [address] Prashant Kang CO2 [Moles/Vol] 26.6 mmol/L Normal 21.0-32.0 [facility] Comment on above: Performed By: #### C MP #### [facility] [address] [address] [address] Prashant Kang Creatinine [Mass/Vol] 0.80 mg/dL Normal 0.55-1.02 [facility] Comment on above: Performed By: #### C MP #### [facility] [address] [address] [address] Prashant Kang EGFR-AF LIBERIAN >60 Normal >=60 [facility] Comment on above: Performed By: #### C MP #### [facility] [address] [address] [address] Prashant Kang EGFR-NON AF LIBERIAN >60 Normal >=60 [facility] Comment on above: Performed By: #### C MP #### [facility] [address] [place] [address] Dr. Prashant Kang Globulin (S) [Mass/Vol] 4.3 g/dL Normal [facility] Comment on above: Performed By: #### C MP #### [facility] [address] [address] [address] Prashant Kang Glucose [Mass/Vol] 101 mg/dL Normal 74-106 [facility] Comment on above: Performed By: #### C MP #### [facility] [address] [address] [address] Prashant Kang Potassium [Moles/Vol] 4.6 mmol/L Normal 3.5-5.1 [facility] Comment on above: Performed By: #### C MP #### [facility] [address] [place] [address] Dr. Prashant Kang Protein [Mass/Vol] 7.9 g/dL Normal 6.4-8.2 [facility] Comment on above: Performed By: #### C MP #### [facility] [address] [address] [address] Prashant Kang Sodium [Moles/Vol] 141 mmol/L Normal 136-145 [facility] Comment on above: Performed By: #### C MP #### [facility] [address] [address] [address] Prashant Kang Urea nitrogen [Mass/Vol] 11.0 mg/dL Normal 7.0-18.0 [facility] Comment on above: Performed By: #### C MP #### [facility] [address] [address] [address] Prashant Kang Urea nitrogen/Creatinine [Mass ratio] 13.8 mg/mg Normal [facility] Comment on above: Performed By: #### C MP #### [facility] [address] [address] [address] Prashant Kang STREPT SCREENon 01-08-2022 STREP SCREEN A Negative Normal NEGATIVE [facility] Comment on above: Performed By: #### P TT, PT #### [facility] [address] [address] [address] Prashant Kang XR NECK SOFT TISSUEon [...] MIKE BARNETT Date: 2022-01-08 04:43 Normal [facility] Covid-19 PCR (CVDTBH)on SARS-CoV-2 (COVID-19) RNA DENEEN+probe Ql (Unsp spec) Not detected Normal NOT DETECTED [facility] Comment on above: Result Comment: This test is not yet approved or cleared by the [place] FDA. When there are no FDA-approved or cleared tests available, and other criteria are met, FDA can make tests available under an emergency access mechanism called an Emergency Use Authorization (EUA). The EUA for this test is supported by the [employer] Engineer of Health and Human Service's (HHS's) declaration [...] Performed By: #### P TT, PT #### [facility] [address] [place] [address] Dr. Prashant Kang Vital Signs Date Time Vital Sign Value Performing Clinician Faci lity 06-12-2023 13:54-0500 Body mass index (BMI) [Ratio] 40.6 kg/m2 [facility] Work Phone: [facility] 06-12-2023 13:54-0500 Body weight 100.7 kg Acosta Shania DO Work Phone: [facility] 06-12-2023 13:54-0500 Diastolic blood pressure 74 mm[Hg] Acosta Shania DO Work Phone: [facility] 06-12-2023 13:54-0500 Systolic blood pressure 118 mm[Hg] Acosta Shania DO Work Phone: [facility] 05-04-2022 09:40-0500 Body temperature 97.2 [degF] JONNY Garcia MD Work Phone: [facility] 05-04-2022 09:40-0500 Body weight 88.81 kg JONNY Garcia MD Work Phone: [facility] 05-04-2022 09:40-0500 Diastolic blood pressure 73 mm[Hg] JONNY Garcia MD Work Phone: [facility] 05-04-2022 09:40-0500 Heart rate 67 /min JONNY Garcia MD Work Phone: [facility] 05-04-2022 09:40-0500 Respiratory rate 16 /min JONNY Garcia MD Work Phone: [facility] 05-04-2022 09:40-0500 SaO2% (BldA) [Mass fraction] 100 % JONNY Garcia MD Work Phone: [facility] 05-04-2022 09:40-0500 Systolic blood pressure 113 mm[Hg] JONNY Garcia MD Work Phone: [facility] Encounters Encounter Date Encounter Type Care Provider Facility Start: 12-17-2023 End: 12-17-2023 ambulatory ACOSTA SHANIA Not Available Start: 11-13-2023 End: 11-13-2023 ambulatory ACOSTA SHANIA Not Available Start: 11-12-2023 Telephone encounter G Felipe Garcia MD Work Phone: Radiation [facility]cology Comment [...] 15 minutes Acosta Shania DO Work Phone: [facility] Comment on above: Missed menses; Amenorrhea Start: 06-12-2023 End: 06-12-2023 ambulatory ACOSTA SHANIA Not Available Start: 02-14-2023 Telephone encounter [facility]sl[facility] Comment on above: Appointment Confirma tion Start: 02-08-2023 End: 02-08-2023 ambulatory SARA MEDELLIN Facility:[facility] Start: 02-01-2023 End: 02-01-2023 ambulatory SARA MEDELLIN Facility:[facility] Start: 11-09-2022 Telephone encounter Arslan Garcia MD [facility] Comment on above: Appointment Confirma [...] encounter Arslan Garcia MD [facility] Comment on above: Missed Appointment Start: 04-20-2022 Patient encounter procedure [facility] Provider [facility] Department Start: 04-11-2022 End: 04-11-2022 Patient encounter procedure Lab/[place] [facility] Work Phone: Radiation Oncology Comment on above: Thyroid cancer (HCC) (Primary Dx) Start: 03-09-2022 Encounter for preprocedural laboratory examination DR CHARLIE EASTMAN [facility] Start: 03-07-2022 End: 03-08-[address] CHARLIE [...] Activity Detail Author Start: 12-30-2023 Influenza vaccination [facility] Start: 08-15-2023 End: 11-14-2023 Thyroglobulin and Thyrogobulin Ab panel - Serum or Plasma THYROGLOBULIN, SERUM WITH REFLEX TO IA OR LC-MS/MS Lab Routine Thyroid cancer (HCC) Expected: 08/15/2023, Expires: 11/14/2023 [facility] Work Phone: Comment on above: Expected: 08/15/2023 , Expires: 11/14/2023 Start: 08-15-2023 End: 11-14-2023 Thyrotropin [Units/volume] in Serum or Plasma THYROID STIMULATING HORMONE Lab Routine Thyroid cancer (HCC) Expected: 08/15/2023, Expires: 11/14/2023 [facility] Work Phone: Comment on above: Expected: 08/15/2023 , Expires: 11/14/2023 Start: 08-15-2023 End: 11-14-2023 Thyroxine (T4) [Mass/volume] in Serum or Plasma T4/THYROXINE Lab Routine Thyroid cancer (HCC) Expected: 08/15/2023, Expires: 11/14/2023 [facility] Work Phone: Comment on above: Expected: 08/15/2023 , Expires: 11/14/2023 Start: 06-26-2023 End: 06-26-2023 Professional / ancillary services management 06/26/2023 1:00 PM EST Ancillary Procedure [facility] [address] [place] [address] [place] [id number] [facility] Start: 06-12-2023 End: 06-12-2024 US for US PELVIS-TRANSVAG IF INDICATED Imaging Routine Amenorrhea Expected: 06/12/2023 (Approximate), Expires: 06/12/2024 [facility] Comment on above: Expected: 06/12/2023 (Approximate), Expires: 06/12/2024 Start: 04-30-2023 Behavioral Health Screening Behavioral Health Screening [facility] Start: 04-30-2023 [facility] Start: 12-29-2022 Covid-19 Vaccine ( season) Covid-19 Vaccine () [facility] Start: 12-29-2022 Influenza vaccination [facility] Start: 07-02-2022 End: 09-01-2022 THYROGLOBULIN BY MASS SPECTROMETRY THYROGLOBULIN BY MASS SPECTROMETRY Lab Routine Thyroid cancer (HCC) Expected: 07/02/2022, Expires: 09/01/2022 [facility] Work Phone: Comment on above: Expected: 07/02/2022 , Expires: 09/01/2022 Start: 07-02-2022 End: 09-01-2022 Thyrotropin [Units/volume] in Serum or Plasma TSH BLD Lab Routine Thyroid cancer ([facility]) Expected: 07/02/2022, Expires: 09/01/2022 [facility] Work Phone: Comment on above: Expected: 07/02/2022 , Expires: 09/01/2022 Start: 07-02-2022 End: 09-01-2022 Thyroxine (T4) [Mass/volume] in Serum or Plasma T4/THYROXINE BLOOD Lab Routine Thyroid cancer ([facility]) Expected: 07/02/2022, Expires: 09/01/2022 [facility] Work Phone: Comment on above: Expected: 07/02/2022 , Expires: 09/01/2022 Start: 04-30-2022 [facility]PRESSION [facility]MENT [facility] Start: 2022 HPV TESTING HPV TESTING [facility] Start: 2022 Screening for malign ant neoplasm of cervix HPV Testing [facility] Start: 12-29-2021 Influenza vaccination INFLUENZA (#1) [facility] Start: 04-30-2021 DEPRESSION ASSESSMENT DEPRESSION ASS ESSMENT [facility] Start: 2013 PAP TESTING PAP TESTING [facility] Start: 2013 Screening for malign ant neoplasm of cervix [facility] Start: 2011 Hepatitis B Vaccine (1 of 3 - 19+ 3-dose series) Hepatitis B Vaccine (1 of 3 - 19+ 3-dose series) [facility] Start: 2011 Urine microalbumin profile [facility] Start: 2010 HEPATITIS C SCREENING HEPATITIS C [facility] Start: 2010 Hepatitis C screening Hepatitis C [facility] Start: 2010 HIV SCREENING HIV SCREENING [facility] Start: 2010 HIV screening HIV Screening [facility] Start: 1998 PNEUMOCOCCAL (1 - PCV) PNEUMOCOCCAL (1 - PCV) [facility] Start: 1998 Pneumococcal vaccination [facility] Start: 1992 COVID-19 VACCINE (#1) COVID-19 VACCI NE (#1) [facility] Start: 1992 HEPATITIS B (1 of 3 - 3-dose series) HEPATITIS B (1 of 3 - 3-dose series) [facility] Start: 1992 Hepatitis B Vaccine (1 of 3 - 3-dose series) Hepatitis B Vaccine (1 of 3 - 3-dose series) [facility] CBC W Auto Different ial panel - Blood CBC and differential Lab Routine Amenorrhea Ordered: 06/12/2023 [facility] Comment on above: Ordered: 06/12/2023 hCG, quantitative, hCG, quantitative, Lab Routine Amenorrhea Ordered: 06/12/2023 [facility] Comment on above: Ordered: 06/12/2023 Hemoglobin A1c measurement Hemoglobin A1c Lab Routine Amenorrhea Ordered: 06/12/2023 [facility] Comment on above: Ordered: 06/12/2023 Prolactin Prolactin Lab Ro utine Amenorrhea Ordered: 06/12/2023 [facility] Comment on above: Ordered: 06/12/2023 Thyrotropin [Units/volume] in Serum or Plasma TSH Lab Routine Amenorrhea Ordered: 06/12/2023 [facility] Work Phone: Comment on above: Ordered: 06/12/2023 [facility] Payers Date Payer Category Payer Medicaid [id number] 1992 Unknown [id number] 2.16.84 [id number] 1992 Unknown [id number] 2.16.84 [id number] 1992 Unknown [id number] 2.16.84 [id number] 1992 Unknown [id number] 2.16.84 [id number] 1992 Unknown [id number] 2.16.84 0.1.323620.3.579.2.593 1992 Unknown [id number] 2.16.84 0.1.728407.3.579.2.593 1992 Unknown [id number] 2.16.84 0.1.309316.3.579.2.593 1992 Unknown [id number] 2.16.84 0.1.833880.3.579.2.593 1992 Unknown [id number] 2.16.84 0.1.462110.3.579.2.593 1992 Unknown [id number] 2.16.84 0.1.215533.3.579.2.593 1992 Unknown [id number] 2.16.84 0.1.226616.3.579.2.593 1992 Unknown [id number] 2.16.84 0.1.806203.3.579.2.593 1992 Unknown [id number] 2.16.84 0.1.060564.3.579.2.593 1992 Unknown [id number] 2.16.84 0.1.508603.3.579.2.593 1992 Unknown [id number] 2.16.84 0.1.196009.3.579.2.593 1992 Unknown [id number] 2.16.84 0.1.476317.3.579.2.1259 1992 Unknown [id number] 2.16.84 0.1.717697.3.579.2.1259 1992 Unknown [id number] 2.16.84 0.1.865702.3.579.2.1259 1990 Unknown [id number] 1990 Unknown [id number] 1957 Unknown [id number] Social History Date Type Detail Facility Start: 04-11-2022 End: 09-23-2022 Tobacco smoking status NHIS Smokes tobacco daily [facility] History of tobacco use Cigarette Smoker [facility] Start: 04-11-2022 End: 11-02-2022 Cigarettes smoked current (pack per day) - Reported 1 [facility] Start: 04-11-2022 End: 09-23-2022 Tobacco use and exposure Smokeless tobacco non-user [facility] Start: 04-11-2022 End: 05-04-2022 Alcohol intake Current drinker of alcohol (finding) [facility] Start: 04-11-2022 Alcohol Comment socially [facility] Start: 1990 Sex Assigned At Not on file [facility] Start: 05-04-2022 End: 11-02-2022 Tobacco use panel [facility] Adult Depression Screening Assessment 0 [facility] Start: 10-03-2022 Alcohol Comment caffeine intak e: 1-2 cups per day [facility] Start: 1990 Sex Assigned At Female [facility] Start: 10-04-2022 Gender identity Identifies as female gender (finding) [facility] Clinical Notes 03-07-2022 to 11-13-2023 Telephone [...] appointment. Records faxed to Dr. Arteaga. [facility] Images from the original note were not included. Spoke to pt. She would like to see endocrinology in [place]. Pt's OB did adjust synthroid recently and has been monitoring labs. TREASURE- please sign pended order. PSS- please arrange visit when order is signed. KAREN Peters Tiffany Weyer, Angela, RN Previous Messages ----- Message ----- From: Arslan Garcia MD Sent: 11/02/2023 12:08 PM EDT To: Obi Dunlap; Carlos Faust [facility] Given what sounds like patient is in first trimester and ongoing concerns of breast-feeding recommend she follow-up with endocrinology. documented in this encounter [facility] 11-13-[address] Christine office received ref and they will be calling patient to schedule appointment. [facility] 11-12-2023 Telephone encounter Note Records faxed to Dr. Arteaga. [facility] 11-12-2023 Telephone encounter Note Lawanda boswell send records to [facility] in your box [facility] 11-12-2023 Telephone encounter Note Images from the original note were not included. Spoke to pt. She would like to see endocrinology in [place]. Pt's OB did adjust synthroid recently and has been monitoring labs. TREASURE- please sign pended order. PSS- please arrange visit when order is signed. KAREN Peters, Danna Mcdowell RN Previous Messages ----- Message ----- From: Arslan Garcia MD Sent: 11/02/2023 12:08 PM EDT To: Obi Dunlap; [facility] [place] Given what sounds like patient is in first trimester and ongoing concerns of breast-feeding recommend she follow-up with endocrinology. [facility] 10-24-2023 Note HNO ID: [id number] Author: Arslan GARCIA MD Service: ? Author Type: Physician Type: Progress Notes Filed: 11/02/2023 12:08 Note Text: Unable to reach patient. [facility] 10-24-2023 History of Present illness Narrative Unable to reach patient. documented in this encounter [facility] 08-14-2023 Miscellaneous Notes TREASURE- please sign pended [...] Danna Pitts RN documented in this encounter [facility] 07-19-2023 Miscellaneous Notes Pt called to request labs sent to [facility]. Faxed to central scheduling. Edna Sal RN documented in this encounter [facility] 06-12-2023 History of Present illness Narrative Reason [...] Acosta Jauregui DO documented in this encounter [facility] 02-14-2023 Miscellaneous Notes Images from the original note were not included. Patient is scheduled for appointments Arslan Garcia MD Carlos [facility] [place]; Obi Genao 4 months with labs. Orders have been placed in epic. documented in this encounter [facility] 02-08-2023 Note HNO ID: [id number] Author: Arslan Garcia MD Service: ? Author [...] 6 minutes Arslan Garcia MD [facility] 11-09-2022 Miscellaneous Notes Images from the original note were not included. Patient is called and scheduled. Arslan Garcia MD Rad[facility] [place]; Obi Genao 8 weeks with labs, orders placed, thank you documented in this encounter [facility] 07-17-2022 Miscellaneous Notes Appointment has been changed to phone appt. Tj Funez Pt called in requesting to be switched to a phone visit tomorrow. Her kids are on spring break and a couple of them are sick. Labs have been done and resulted. PSS- please change to phone visit for tomorrow. Danna Pitts, RN documented in this encounter [facility] 05-04-2022 History of Present illness Narrative Radiation Oncology - FollowupNote PATIENT NAME: Amanda Crotez PATIENT : 1990 DIAGNOSIS: Thyroid cancer, classic papillary thyroid carcinoma, status post total thyroidectomy and right neck exploration on 03/07/2022, stage I [id number]. HPI: Patient returns after further work-up and [...] Take by mouth. OTC PRODUCT Supplement by [employer] for breast feeding levothyroxine (SYNTHROID) 112 [...] and right neck exploration on 03/07/2022, stage [id number]. Patient does have significant thyroglobulin antibody however [...] for this encounter. documented in this encounter [facility] 04-25-2022 Miscellaneous Notes Patient had been rescheduled. Tj Funez Images from the original note were not included. Called patient to reschedule, LMOV. MD Jessica Jenkins Radgermaine Nunez [facility] Nurse [facility]; Tj Funez Unable to reach please reschedule documented in this encounter [facility] 04-11-2022 Nurse Note Amanda Cortez presents in office today for: Lab Draw during Office Visit . Ordering Provider: Felipe Garcia M.D. Test (s) ordered: TG Method for obtaining blood: Phlebotomy was performed, accessing right antecubital vein. Needle removed intact. Dressing secured. Patient denies discomfort, dizziness, light-headedness or weakness and left the department without assist. Danna Pitts RN documented in this encounter [facility] 03-07-2022 Note OPERATIVE NOTE OPERATION DATE: 03/07/2022 [...] the recovery room in good condition. [facility] Evaluation note Diagnosis Thyroid cancer (HCC)- Primary Malignant neoplasm of thyroid gland [facility]roid [facility] ([facility])- Primary Malignant neoplasm of thyroid gland [facility] Diagnosis Missed menses Amenorrhea Absence of menstruation documented in [facility] encounter [facility]* Diagnosis Thyroid cancer (HCC)- Primary Malignant neoplasm of thyroid gland [facility] Diagnosis Thyroid cancer (HCC)- Primary Malignant neoplasm of thyroid gland [facility] Diagnosis Thyroid cancer (HCC)- Primary Malignant neoplasm of thyroid gland documented in this encounter [facility] Summary Purpose Family History No Family History Records FoundNo Family History Records FoundNo Family History Records Found Advance Directives No Advanced Directives Records FoundNo Advanced Directives Records FoundNo Advanced Directives Records Found Reason for Referral Specialty Diagnoses / Procedures Referred By Contac t Referred To Contact Endocrinology Diagnoses Thyroid cancer (HCC) Procedures CONSULT TO ENDOCRINOLOGY OFFICE/OUTPATIENT [facility] 60 MINUTES Arslan Garcia MD [address] [place] [address] [place] [address] Referral ID Status Reason Start Date Expiration Date Visits Requested Visits Authorized [id number] Authorized PCP Requested Referral 11/12/2023 11/11/2024 1 1 Additional Source Comments Source Comments (unrecognize d section and content) In the event this informatio n is protected by the Federal Confidentiality of Alcohol and Drug Abuse Patient Records regulations: The Federal rules restrict any use of the information to criminally investigate or prosecute any alcohol or drug abuse patient.[facility] the event this information is protected by the Federal Confidentiality of Alcohol and Drug Abuse Patient Records regulations: The Federal rules restrict any use of the information to criminally investigate or prosecute any alcohol or drug abuse patient.[facility] the event this information is protected by the Federal Confidentiality of Alcohol and Drug Abuse Patient Records regulations: The Federal rules restrict any use of the information to criminally investigate or prosecute any alcohol or drug abuse patient.[facility] the event this information is protected by the Federal Confidentiality of Alcohol and Drug Abuse Patient Records regulations: The Federal rules restrict any use of the information to criminally investigate or prosecute any alcohol or drug abuse patient.[facility] the event this information is protected by the Federal Confidentiality of Alcohol and Drug Abuse Patient Records regulations: The Federal rules restrict any use of the information to criminally investigate or prosecute any alcohol or drug abuse patient.[facility] the event this information is protected by the Federal Confidentiality of Alcohol and Drug Abuse Patient Records regulations: The Federal rules restrict any use of the information to criminally investigate or prosecute any alcohol or drug abuse patient.[facility] the event this information is protected by the Federal Confidentiality of Alcohol and Drug Abuse Patient Records regulations: The Federal rules restrict any use of the information to criminally investigate or prosecute any alcohol or drug abuse patient.[facility] the event this information is protected by the Federal Confidentiality of Alcohol and Drug Abuse Patient Records regulations: The Federal rules restrict any use of the information to criminally investigate or prosecute any alcohol or drug abuse patient.[facility] the event this information is protected by the Federal Confidentiality of Alcohol and Drug Abuse Patient Records regulations: The Federal rules restrict any use of the information to criminally investigate or prosecute any alcohol or drug abuse patient.[facility] the event this information is protected by the Federal Confidentiality of Alcohol and Drug Abuse Patient Records regulations: The Federal rules restrict any use of the information to criminally investigate or prosecute any alcohol or drug abuse patient.[facility] the event this information is protected by the Federal Confidentiality of Alcohol and Drug Abuse Patient Records regulations: The Federal rules restrict any use of the information to criminally investigate or prosecute any alcohol or drug abuse patient.[facility] Reason for Visit (unrecogniz ed section and content) Reason Comments Phlebotomy Reason Comments Thyroid Cancer Follow up Reason Comments Missed Appointment Reason Comments Phone Visit Reason Comments Appointment Confirmation Reason Comments Amenorrhea Reason Comments Orders Reason Comments Future Appointment Reason Comments Established Patient Reason Comments Patient Update Orders Future Appointment Care Teams (unrecognized sec tion and content) Card Lacer Relationship Specialty Start Date End Date Sara Medellin MD [address] [place] [address] PCP - General Family Medicine 04/11/22 Card Lacer Relationship Specialty Start Date End Date Sara Medellin MD [address] [place] [address] PCP - General Family Medicine 04/11/22 Card Lacer Relationship Specialty Start Date End Date Sara Medellin MD [address] [place] [address] PCP - General Family Medicine 04/11/22 Card Lacer Relationship Specialty Start Date End Date Sara Medellin MD PCP - General Family Medicine 04/11/22 Card Lacer Relationship Specialty Start Date End Date Sara Medellin MD PCP - General Family [facility] 04/11/22 Card Lacer Relationship Specialty Start Date End Date Sara Medellin MD [address] [place] [address] PCP - General Family Medicine 10/03/22 Card Lacer Relationship Specialty Start Date End Date Sara Medellin MD PCP - General Family Medicine 04/11/22 Card Lacer Relationship Specialty Start Date End Date Sara Medellin MD PCP - General Family Medicine 04/11/22 Card Lacer Relationship Specialty Start Date End Date Sara Medellin MD PCP - General Family Medicine 04/11/22 INFORMATION SOURCE (unrecogn ized section and content) DATE CREATED AUTHOR 09/02/2022 [facility] DATE CREATED AUTHOR AUTHOR'S ORGANIZ ATION 12/11/2023 [facility] DATE CREATED AUTHOR AUTHOR'S ORGANIZ ATION 12/18/2023 [facility] EPIC FOR RECORDS PERTAINING TO [...] BE BASED ON THE PRIMARY CLINICAL RECORDS. [employer] [facility]. provides no warranty or guarantee of the accuracy or completeness of information in this document.
[2024-01-02 14:14] LABS: Basophils Percent Auto 0.3 % (0.2-2.0); Eosinophils Absolute Auto 0.2 10^3/uL (0.0-0.7); Eosinophils Percent Auto 2.4 % (0.9-7.0); Hemoglobin 11.8 g/dL (12.0-16.0); Immature Granulocytes Abs Auto 0.02 10^3/uL (0.00-0.03); Immature Granulocytes Pct Auto 0.2 % (0.0-0.5); Lymphocytes Absolute Auto 2.1 10^3/uL (1.2-3.8); Lymphocytes Percent Auto 23.6 % (20.5-60.0); Mean Corpuscular HGB Conc 33.7 g/dL (29.9-35.2); Mean Corpuscular Hemoglobin 30.1 pg (26.7-34.0); Mean Corpuscular Volume 89.3 fL (81.0-99.0); Mean Platelet Volume 9.8 fL (9.5-13.5); Monocytes Absolute Auto 0.4 10^3/uL (0.3-0.8); Monocytes Percent Auto 3.9 % (1.7-12.0); Neutrophils Absolute Auto 6.2 10^3/uL (1.4-6.5); Neutrophils Percent Auto 69.6 % (43.0-75.0); Platelet Count 224 10^3/uL (150-450); Red Blood Count 3.92 10^6/uL (4.20-5.40); Red Cell Distribution Width 13.6 % (11.0-15.0); White Blood Count 8.9 10^3/uL (4.0-11.0)
[2024-01-02 15:11] LABS: Alanine Aminotransferase 26 U/L (14-59); Albumin Globulin Ratio 0.7; Albumin Level 2.7 g/dL (3.4-5.0); Alkaline Phosphatase 80 U/L (46-116); Aspartate Amino Transferase 17 U/L (15-37); Bilirubin Direct 0.1 mg/dL (0.0-0.2); Bilirubin Total 0.3 mg/dL (0.2-1.0); Thyroid Stimulating Hormone 63.674 uIU/mL (0.358-3.740); Total Protein 6.7 g/dL (6.4-8.2)
[2024-01-03 07:09] LABS: HCV Antibody Non Reactive (Non Reactive)
[2024-01-03 18:08] LABS: Bile Acids 6.4 umol/L (0.0-10.0)
== END 2024-01-02 13:54 | disposition home or self-care (01) ==
LOC: LAB 13:53
PROVIDERS: PCP Family Medicine; Visit Provider Obstetrics & Gynecology
DX: L29.9 Pruritus, unspecified (principal)
CPT/HCPCS: 36415; 80076; 82239; 84443; 85025; 86803

== ENCOUNTER 2024-02-08 14:30 | Outpatient (OUT) | payer OTHER, SELFPAY ==
--- OUTSIDE RECORDS SUMMARY | 2024-02-08 14:34 | XMS_ITS | CCD ---
Author Organization [facility]iniSys[facility] Care Team Providers Care Hammerer Tab Name Role Phone Sara Medellin MD Primary Care Provider [phone] RAIZA, DR GUERRA Consulting Unavailable LUCRETIAY ., DR RUIZ Primary Care Unavailable TIMMIS, DR GUERRA Attending Unavailable TIMMIS, DR GUERRA Admitting Unavailable JERMAN, DR GAIL Serrato Consulting Unavailable STOLL, DR GAIL Serrato Attending Unavailable JERMAN, DR GAIL Serrato Admitting Unavailable LUCRETIAY ., DR RUIZ Primary Care Unavailable MIKE BARNETT Consulting Unavailable TAYLER ., DR FARLEY Consulting Unavailable HOY ., DR RUIZ Primary Care Unavailable TAYLER ., DR FARLEY Attending Unavailable TAYLER ., DR FARLEY Admitting Unavailable KIMBERLY ., CLARI Consulting Unavailable KIMBERLY ., CLARI Attending Unavailable KIMBERLY ., CLARI Admitting Unavailable HOY ., DR RUIZ Primary Care Unavailable TIMMIS, DR GUERRA Consulting Unavailable HOY ., DR RUIZ Primary Care Unavailable TIMMIS, DR GUERRA Attending Unavailable TIMMIS, DR GUERRA Admitting Unavailable MORGOS, JOSE Consulting Unavailable TEGAN, YAMILET Consulting Unavailable CLARISSA NEWSOME Consulting Unavailable TAYLER ., DR FARLEY Consulting Unavailable HOY ., DR RUIZ Primary Care Unavailable TAYLER ., DR FARLEY Attending Unavailable TAYLER ., DR FARLEY Admitting Unavailable HOY ., DR RUIZ Primary Care Unavailable TAYLER ., DR FARLEY Attending Unavailable TAYLER ., DR FARLEY Admitting Unavailable TAYLER ., DR FARLEY Consulting Unavailable HOY ., DR RUIZ Primary Care Unavailable TAYLER ., DR FARLEY Attending Unavailable TAYLER ., DR FARLYE Admitting Unavailable HOY ., DR RUIZ Consulting Unavailable HOY ., DR RUIZ Primary Care Unavailable HOY ., DR RUIZ Attending Unavailable HOY ., DR RUIZ Admitting Unavailable HOY ., DR RUIZ Consulting Unavailable HOY ., DR RUIZ Primary Care Unavailable HOY ., DR RUIZ Attending Unavailable HOY ., DR RUIZ Admitting Unavailable [place], DR SHAILESH Clark Consulting Unavailable TIMMIS, DR [...] Unavailable Sara Medellin MD Primary Care Provider [phone] Sara Medellin MD Primary Care Provider [phone] Sara Medellin MD Primary Care Provider [phone] SARA MEDELLIN Primary Care Unavailable Arslan GARCIA Attending Unavailable HOY, SARA M Primary Care Unavailable Arslan GARCIA Attending Unavailable THEO, SARA M Primary Care Unavailable DMITRY FITZGERALD Attending Unavailable TAYLER, ACOSTA R Referring Unavailable HOY, SARA M Primary Care Unavailable TAYLER, ACOSTA R Referring Unavailable HOY, SARA M Primary Care Unavailable TAYLER, ACOSTA Attending Unavailable TAYLER, ACOSTA Attending Unavailable TAYLER, ACOSTA Attending Unavailable TAYLER, ACOSTA Attending Unavailable TAYLER, ACOSTA Attending Unavailable Allergies Allergy Classification Reported Allergen(s) Allergy Type Date of Onset Reaction(s) Facility (16 sources) Cefaclor; Translations: [CEFACLOR] Drug Allergy 04-11-20 22 Hives, Shortness of Breath, Anaphylaxis [facility] (13 sources) Penicillins; Translations: [PENICILLINS] Drug Allergy 04-11-20 22 Hives, Shortness of Breath [facility] (2 sources) Cefaclor Drug Allergy 05-10-19 14 [facility] (2 sources) Penicillins Drug allergy (disorder) 05-10-19 14 [facility] (3 sources) Penicillin G sodium; Translations: [PENICILLIN G SODIUM] Allergy to substance 09-24-19 Anaphylaxis [facility] (1 source) Cephalosporins (Antibiotic); Translations: [CEPHALOSPORINS] Propensity to adverse reactions to drug (disorder) 12-20-19 [facility] (1 source) Penicillin; Translations: [PENICILLIN G] Drug Allergy 12-20-19 [facility] Medications Current Medications Medication Drug Class(es) Dates Sig (Normalized) Sig (Original) albuterol 0.83 mg/ml inhalation solution (12 sources) beta2-Adrenergic Agonist Start: 01-08-2022 take 1 dose by inhalation every four hours as needed albuterol (PROVENTIL) 2.5 mg /3 mL (0.083 %) nebulizer solution INHALE CONTENTS OF 1 VIAL VIA NEBULIZER EVERY 4 HOURS NEEDED 01/08/2022 Active Comment on above: INHALE CONTENTS [...] 11 10/23/2022 10/23/2023 Active Digestive Enzymes tab (12 sources) Digestive Enzyme s tab Take by mouth. Active Digestive Enzyme s tab Take by mouth. 0 Active Comment on above: Take by mouth. fluticasone propionate 0.05 mg/actuat metered dose nasal spray (12 sources) Corticosteroid Start: 2021 fluticasone (FLONASE) 50 mcg/actuation nasal spray 04/10/2022 Active hydroCHLOROthiazide 25 mg / triamterene 37.5 mg oral capsule (2 sources) Potassium-sparing Diuretic, Thiazide Diuretic Start: 2022 take 1 capsule by mouth in the morning triamterene-hydroCH LOROthiazide (Dyazide) 37.5-25 MG capsule Indications: Cochlear hydrops of right ear Take 1 capsule by mouth in the morning. 30 capsule 1 01/03/2023 Active ibuprofen 800 mg oral tablet (12 sources) Nonsteroidal Anti-inflammatory Drug Start: 2021 ibuprofen (MOTRIN) 800 mg tablet Take 800 mg by mouth. 04/07/2022 Active Comment on above: Take 800 mg by mouth . levothyroxine sodium 0.175 mg oral tablet (10 sources) l-Thyroxine Start: 2023 take 1 tablet by mouth once daily [...] breakfast. liothyronine sodium 0.025 mg oral tablet (12 sources) l-Triiodothyronine Start: 04-07-20 take 1 tablet by mouth twice daily liothyronine (CYTOMEL) 25 mcg tablet TAKE ONE TABLET BY MOUTH TWICE A DAY FOR 30 DAYS 04/07/2022 Active Comment on above: TAKE ONE TABLET BY M OUT TWICE A DAY FOR 30 DAYS mometasone [...] in the morning. 0 Active Multivitamin capsule (12 sources) take 1 capsule by mouth once daily Multivitamin capsule Take 1 capsule by mouth once daily. Active take 1 capsule by mouth once darshana ly Multivitamin capsule Take 1 capsule by mouth once daily. 0 Active Comment on above: Take 1 capsule by mo ut once daily. norethindrone 0.35 mg oral tablet (14 sources) Start: 2 take 1 tablet by mouth once daily JENCYCLA 0.35 mg tablet Take 1 tablet by mouth once daily. 04/07/2022 Active Comment on above: Take 1 tablet by олег once daily. omeprazole 40 mg delayed release oral capsule (14 sources) Proton Pump Inhibitor Start: 2 take 1 capsule by mouth once daily in the morning omeprazole (PRILOSEC) 40 mg capsule TAKE ONE CAPSULE BY MOUTH ONCE DAILY IN THE MORNING 30 TO 60 MINUTES PRIOR TO BREAKFAST 03/26/2022 Active Comment on above: TAKE ONE CAPSULE BY MOUTH ONCE DAILY IN THE MORNING 30 TO 60 MINUTES PRIOR TO BREAKFAST OTC PRODUCT (12 sources) OTC PRODUCT Supplement by [employer] for breast feeding Active OTC PRODUCT Supp lement by [employer] for breast feeding 0 Active Comment on above: Supplement by [employer] for breast feeding Problems Active Problems Problem Classification Problem Date Documented Date Episodic/Chronic Administrative/social admission (1 source) Problems related to multiparity; Translations: [Problems related to multiparity] Onset: 01-11-2024 Episodic Cancer of thyroid (12 sources) Malignant tumor of thyroid gland; Translations: [Malignant neoplasm of thyroid gland] Onset: 03-07-2022 Chronic Cancer of thyroid (1 source) Personal history of malignant neoplasm of thyroid; Translations: [Personal history of malignant neoplasm of thyroid] Onset: 01-11-2024 Episodic Complications of surgical procedures or medical care (1 source) Postprocedural hypothyroidism; Translations: [Postprocedural hypothyroidism] Onset: 01-11-2024 Chronic Conditions associated with dizziness or vertigo (2 sources) Cochlear hydrops of right inner ear; 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, right ear] Onset: 01-03-2023 01-03-2023 Chronic Hemorrhage during ; abruptio placenta; placenta previa (1 source) Complete placenta previa NOS or without hemorrhage, second trimester; Translations: [Complete placenta previa nos or without hemorrhage, second trimester] Onset: 01-11-2024 Episodic Menopausal disorders (1 source) Hormone replacement therapy; Translations: [HORMONE REPLACEMENT THERAPY] Onset: 08-07-2022 Episodic Menstrual disorders (10 sources) Amenorrhea, unspecified; Translations: [Missed period] Onset: 08-17-2022 Resolved: 09-23-2022 Chronic Other aftercare (1 source) Other intermediate (current) drug therapy; Translations: [OTH LUMBER SALVAGER CURRENT DRUG THERAPY] Onset: 08-24-2022 Episodic Other complications of (1 source) Obesity complicating , unspecified trimester; Translations: [Obesity complicating , unspecified trimester] Onset: 01-11-2024 Chronic Other complications of (1 source) Supervision of other high risk pregnancies, unspecified trimester; Translations: [Supervision of other high risk pregnancies, unspecified trimester] Onset: 01-11-2024 Episodic Other complications of (1 source) Supervision of high risk , unspecified, unspecified trimester; Translations: [Supervision of high risk , unspecified, unspecified trimester] Onset: 01-11-2024 Episodic Other complications of (1 source) Smoking (tobacco) complicating , second trimester; Translations: [Smoking (tobacco) complicating , second trimester] Onset: 01-11-2024 Episodic Other complications of (1 source) Endocrine, nutritional and metabolic diseases complicating , second trimester; Translations: [Endocrine, nutritional and metabolic diseases complicating , second trimester] Onset: 01-11-2024 Episodic Other ear and sense organ disorders [...] Translations: [OBESITY UNSPECIFIED] Onset: 03-16-2022 Chronic Other screening for suspected conditions (not mental disorders or infectious disease) (2 sources) Encounter for other specified screening; Translations: [Encounter for suspected placental problem ruled out] Onset: 01-11-2024 Episodic Other upper respiratory infections (1 source) Chronic maxillary sinusitis; Translations: [CHRONIC MAXILLARY SINUSITIS] Onset: 03-16-2022 Chronic Residual codes; unclassified (1 source) 24 weeks gestation of ; Translations: [24 weeks gestation of ] Onset: 01-11-2024 Episodic Substance-related disorders (1 source) Nicotine dependence, cigarettes, uncomplicated; Translations: [NICOTINE DEPEND CIGARETTES UNCOMP] Onset: 03-16-2022 Chronic Thyroid disorders (6 sources) Nontoxic single thyroid nodule; Translations: [Hypothyroidism, unspecified] Onset: 01-24-2022 Chronic Unclassified (4 sources) CONTACT W/AND (SUSP) EXPOS COVID-19; Translations: [CONTACT W/AND (SUSP) EXPOS COVID-19] Onset: 01-08-2022 Unclassified (1 source) Possible Placenta Previa Onset: 01-11-2024 Past or Other Problems Problem Classification Problem [...] Test Name Value Interpretation Reference Range Facility [facility] 11-12-2023 [facility] Telephone (RADTSA) AMANDA CORTEZ ([id number]) 1990 F Date Time Provider Department 11/12/23 Arslan GARCIA During your visit today, we recorded the following information about you: Danna Pitts, RN 11/12/2023 11:25 AM Signed Spoke to pt. She would like to see endocrinology in [place]. Pt's OB did adjust synthroid recently and has been monitoring labs. TREASURE- please sign pended order. PSS- please arrange visit when order is signed. KAREN Peters, Danna Mcdowell RN Previous Messages ----- Message ----- From: Arslan Garcia MD Sent: 11/02/2023 12:08 PM EDT To: Obi Dunlap; [facility] Nurse Pool Given what sounds like patient is in first trimester and ongoing concerns of breast-feeding recommend she follow-up with endocrinology. Obi Genao 11/12/2023 11:26 AM Signed Lawanda please send records to She haywoodheet in your box Hong Holcomb Clarissa Lesia 11/12/2023 1:18 PM Signed Records faxed to Dr. Arteaga. Obi Genao 11/13/2023 9:[address] Christine office received ref and they will be calling patient to schedule appointment. Patrick Pss, Meryl 11/15/2023 1:[address] Arteaga office spoke with Miguel. She states she has patient on her list to give a call today to get scheduled. Meryl Schmid Nguyen Pss, Meryl 11/28/2023 1:[address] Jenni abad. His office called patient on 11/21 and left message for her to call their office back to get scheduled. As of now they are waiting to hear back from patient. Meryl Nguyen Pss, Meryl 12/05/2023 9:12 AM Signed Called left message for Dr Arteaga office to call our office back re: status of this referral. Meryl Nguyen Pss Nguyen Pss, Meryl 12/10/2023 1:[address] Arteaga office spoke with Miguel. Per Miguel she states she called and left patient message on 11/21. As of now their office is waiting to hear back from patient. Meryl Nguyen Pss Nguyen Pss, Meryl 01/09/2024 2:[address] Arteaga office spoke with Miguel. She states patient has not called their office back and as of now they are waiting to hear from patient. I called tried to reach patient this afternoon unable to reach and unable to leave message at this time. Meryl Nguyen Pss Allergies As of Date: [...] [C73] Order(s):CONSULT TO ENDOCRINOLOGY [9007] Order #: [id number]: 1 FUTURE Prescriptions as of 01/09/2024 - levothyroxine (SYNTHROID) 175 mcg tablet Take [...] Encounter Status:Closed by DANNA PITTS on 11/13/23 [facility] 07-19-2023 AMRITA Telephone (KEVIN) AMANDA CORTEZ ([id number]) 1990 F Date Time Provider Department 07/19/23 EDNA SAL During your visit today, we recorded the following information about you: Edna Sal RN 07/19/2023 10:42 AM Signed Pt called to request labs [facility]. Faxed to central scheduling. Edna Sal RN [...] Encounter Status:Closed by EDNA SAL on 07/19/23 [facility] 06-25-2023 AMRITA Telephone (MindJoltA) AMANDA CORTEZ ([id number]) 1990 F Date Time Provider Department 06/25/23 [...] Signed Patients lab orders were sent to [facility] and I scheduled her a phone [...] cancer (HCC) [C73] Order(s):T4/THYROXINE [SQT4] Order #: [id number] FUTURE THYROID STIMULATING HORMONE [SQTSH] Order #: [id number] FUTURE THYROGLOBULIN, SERUM WITH REFLEX TO IA OR LC-MS/MS [SQTHYRORF] Order #: [id number] FUTURE Prescriptions as of 08/23/2023 - levothyroxine [...] Encounter Status:Closed by Arslan GARCIA on 08/15/23 [facility] 02-14-2023 CNPN Telephone (NCCAP) AMANDA CORTEZ ([id number]) 1990 F Date Time Provider Department 02/14/23 [facility] During your visit today, we recorded the following information about you: Obi Genao 02/14/2023 9:54 AM Signed Patient is scheduled for appointments Arslan Garcia MD [facility]; Obi Genao 4 months with labs. Orders have been placed in [facility]. Allergies As of Date: 02/14/2023 Noted Allergy [...] Status:Closed by OBI GENAO on 02/14/23 Normal [facility] CBC W Auto Differential pane l (Bld)on 02-01-2023 Basophils (Bld) [#/Vol] 0.04 10*3/uL Normal <0.11 [facility] Comment on above: Order Comment: Speci men Type: BLOOD SPECIMEN Ordering Facility: [facility] Address: [address] [place] [address] Performed By: #### 5 7021-8 #### [facility] CLIA [id number] [address] [place] [address] 29061 Basophils/100 WBC (Bld) 0.5 % Normal [facility] Comment on above: Order Comment: Speci men Type: BLOOD SPECIMEN Ordering Facility: [facility] Address: [address] [place] [address] Performed By: #### 5 7021-8 #### [facility] CLIA [id number] [address] [place] [address] 35709 Differential cell count method Nom (Bld) Auto Normal [facility] Comment on above: Order Comment: Speci men Type: BLOOD SPECIMEN Ordering Facility: [facility] Address: [address] [place] [address] Performed By: #### 5 7021-8 #### [facility] CLIA [id number] [address] [place] [address] 49961 Eosinophils (Bld) [#/Vol] 0.19 10*3/uL Normal <0.46 [facility] Comment on above: Order Comment: Speci men Type: BLOOD SPECIMEN Ordering Facility: [facility] Address: [address] [place] [address] Performed By: #### 5 7021-8 #### [facility] CLIA [id number] [address] [place] [address] 99773 Eosinophils/100 WBC (Bld) 2.5 % Normal [facility] Comment on above: Order Comment: Speci men Type: BLOOD SPECIMEN Ordering Facility: [facility] Address: [address] [place] [address] Performed By: #### 5 7021-8 #### [facility] CLIA [id number] [address] [place] [address] 65030 Erythrocyte distribution width (RBC) [Ratio] 13.3 % Normal 11.5-15.0 [facility] Comment on above: Order Comment: Speci men Type: BLOOD SPECIMEN Ordering Facility: [facility] Address: [address] [place] [address] Performed By: #### 5 7021-8 #### [facility] CLIA [id number] [address] [place] [address] 62005 Hematocrit (Bld) [Volume fraction] 47.7 % High 36.0-46.0 [facility] Comment on above: Order Comment: Speci men Type: BLOOD SPECIMEN Ordering Facility: [facility] Address: [address] [place] [address] Performed By: #### 5 7021-8 #### [facility] CLIA [id number] [address] [place] [address] Hemoglobin (Bld) [Mass/Vol] 15.6 g/dL High 11.5-15.5 [facility] Comment on above: Order Comment: Speci men Type: BLOOD SPECIMEN Ordering Facility: [facility] Address: [address] [place] [address] Performed By: #### 5 7021-8 #### [facility] CLIA [id number] [address] [place] [address] 76415 Immature granulocytes (Bld) [#/Vol] 0.03 10*3/uL Normal <0.10 [facility] Comment on above: Order Comment: Speci men Type: BLOOD SPECIMEN Ordering Facility: [facility] Address: [address] [place] [address] Performed By: #### 5 7021-8 #### [facility] CLIA [id number] [address] [place] [address] 76773 Immature granulocytes/100 WBC (Bld) 0.4 % Normal [facility] Comment on above: Order Comment: Speci men Type: BLOOD SPECIMEN Ordering Facility: [facility] Address: [address] [place] [address] Performed By: #### 5 7021-8 #### [facility] CLIA [id number] [address] [place] [address] 12885 Lymphocytes (Bld) [#/Vol] 2.30 10*3/uL Normal 1.00-4.00 [facility] Comment on above: Order Comment: Speci men Type: BLOOD SPECIMEN Ordering Facility: [facility] Address: [address] [place] [address] Performed By: #### 5 7021-8 #### [facility] CLIA [id number] [address] [place] [address] 08074 Lymphocytes/100 WBC (Bld) 29.7 % Normal [facility] Comment on above: Order Comment: Speci men Type: BLOOD SPECIMEN Ordering Facility: [facility] Address: [address] [place] [address] Performed By: #### 5 7021-8 #### [facility] CLIA [id number] [address] [place] [address] 68552 MCH (RBC) [Entitic mass] 28.8 pg Normal 26.0-34.0 [facility] Comment on above: Order Comment: Speci men Type: BLOOD SPECIMEN Ordering Facility: [facility] Address: [address] [place] [address] Performed By: #### 5 7021-8 #### [facility] CLIA [id number] [address] [place] [address] 85784 MCHC (RBC) [Mass/Vol] 32.7 g/dL Normal 30.5-36.0 [facility] Comment on above: Order Comment: Speci men Type: BLOOD SPECIMEN Ordering Facility: [facility] Address: [address] [place] [address] Performed By: #### 5 7021-8 #### [facility] CLIA [id number] [address] [place] [address] 09960 MCV (RBC) [Entitic vol] 88.2 fL Normal 80.0-100.0 [facility] Comment on above: Order Comment: Speci men Type: BLOOD SPECIMEN Ordering Facility: [facility] Address: [address] [place] [address] Performed By: #### 5 7021-8 #### [facility] CLIA [id number] [address] [place] [address] 99072 Monocytes (Bld) [#/Vol] 0.49 10*3/uL Normal <0.87 [facility] Comment on above: Order Comment: Speci men Type: BLOOD SPECIMEN Ordering Facility: [facility] Address: [address] [place] [address] Performed By: #### 5 7021-8 #### [facility] CLIA [id number] [address] [place] [address] 67822 Monocytes/100 WBC (Bld) 6.3 % Normal [facility] Comment on above: Order Comment: Speci men Type: BLOOD SPECIMEN Ordering Facility: [facility] Address: [address] [place] [address] Performed By: #### 5 7021-8 #### [facility] CLIA [id number] [address] [place] [address] 24962 Neutrophils (Bld) [#/Vol] 4.70 10*3/uL Normal 1.45-7.50 [facility] Comment on above: Order Comment: Speci men Type: BLOOD SPECIMEN Ordering Facility: [facility] Address: [address] [place] [address] Performed By: #### 5 7021-8 #### [facility] CLIA [id number] [address] [place] [address] 10968 Neutrophils/100 WBC (Bld) 60.6 % Normal [facility] Comment on above: Order Comment: Speci men Type: BLOOD SPECIMEN Ordering Facility: [facility] Address: [address] [place] [address] Performed By: #### 5 7021-8 #### [facility] CLIA [id number] [address] [place] [address] 81755 Nucleated RBC (Bld) [#/Vol] 10*3/uL Normal <0.01 [facility] Comment on above: Order Comment: Speci men Type: BLOOD SPECIMEN Ordering Facility: [facility] Address: [address] [place] [address] Performed By: #### 5 7021-8 #### [facility] CLIA [id number] [address] [place] [address] 70779 Nucleated RBC/100 WBC (Bld) [Ratio] 0.0 /100 WBC Normal [facility] Comment on above: Order Comment: Speci men Type: BLOOD SPECIMEN Ordering Facility: [facility] Address: [address] [place] [address] Performed By: #### 5 7021-8 #### [facility] CLIA [id number] [address] [place] [address] 64348 Platelet mean volume (Bld) [Entitic vol] 9.6 fL Normal 9.0-12.7 [facility] Comment on above: Order Comment: Speci men Type: BLOOD SPECIMEN Ordering Facility: [facility] Address: [address] [place], [place] [address] Performed By: #### 5 7021-8 #### [facility] CLIA [id number] [address] [place] [address] 65750 Platelets (Bld) [#/Vol] 248 10*3/uL Normal 150-400 [facility] Comment on above: Order Comment: Speci men Type: BLOOD SPECIMEN Ordering Facility: [facility] Address: [address] [place] [address] Performed By: #### 5 7021-8 #### [facility] CLIA [id number] [address] [place] [address] 84674 RBC (Bld) [#/Vol] 5.41 10*6/uL High 3.90-5.[address] [facility] Comment on above: Order Comment: Speci men Type: BLOOD SPECIMEN Ordering Facility: [facility] Address: [address] [place] [address] Performed By: #### 5 7021-8 #### [facility] CLIA [id number] [address] [place] [address] 08699 WBC (Bld) [#/Vol] 7.75 10*3/uL Normal 3.70-11.[address] [facility] Comment on above: Order Comment: Speci men Type: BLOOD SPECIMEN Ordering Facility: [facility] Address: [address] [place] [address] Performed By: #### 5 7021-8 #### [facility] CLIA [id number] [address] [place] [address] T3 SerPl-mCncon 02-01-2023 T3 [Mass/Vol] 123 ng/dL Normal 79-165 [facility] Comment on above: Order Comment: Speci men Type: BLOOD SPECIMEN Ordering Facility: [facility] Address: [place] [address] Performed By: #### 3 053-6, 3016-3, 3026-2 #### [facility] CLIA [id number] [facility] [place] [address] [place] T4 SerPl-mCncon 02-01-2023 T4 [Mass/Vol] 11.9 ug/dL High 5.5-10.2 [facility] Comment on above: Order Comment: Speci men Type: BLOOD SPECIMEN Ordering Facility: [facility] Address: [address] [place] [address] Performed By: #### 3 053-6, 3016-3, 3026-2 #### [facility] CLIA [id number] [address] [place] [address] [place] THYROGLOBULIN BY MASS SPECTR OMETRYon 02-01-2023 THYROGLOBULIN, LC-MS/MS <0.5 Low 1.3-31.8 [facility] Comment on above: Order Comment: Speci men Type: BLOOD SPECIMEN Ordering Facility: [facility] Address: [address] [place] [address] Result Comment: Results obtained with different test [...] developed and its performance characteristics determined by [employer] It has not been cleared or approved by the US Food and Drug Administration. This test was performed in a CLIA certified laboratory and is intended for clinical purposes. Performed By: [employer] [address] [place] [address] Chief Talent Officer: Prem Willis MD, PhD CLIA Number: [id number] Performed By: #### [facility] #### [facility] CLIA [id number] [address] [place] [address] TSH SerPl-aCncon 02-01-2023 TSH Qn 0.960 m[IU]/L Normal 0.270-4.200 [facility] Comment on above: Order Comment: Speci men Type: BLOOD SPECIMEN Ordering Facility: [facility] Address: [address] [place] [address] Result Comment: If t he patient is , TSH reference range varies by gestational period: First Trimester (weeks 9-12): 0.180-2.990 mIU/L Second Trimester: 0.110-3.980 mIU/L Third Trimester: 0.480-4.710 mIU/L Suman Graf et al. A Practical Approach for the Verifications and Determination of Site- and Trimester-Specific Reference Intervals for Thyroid Function tests in . Thyroid, 2019:29:3:412-420. Rajesh Holman, et al. 2017 Guidelines of the [employer] for the Diagnosis and Management of Thyroid Disease during and the . Thyroid, 2017:27:3:315-389. Performed By: #### 3 053-6, 3016-3, 3026-2 #### [facility] CLIA [id number] [address] [place] [address] [place] PREG QUANT HCGon 08-17-2022 HCG QUANT 1 mIU/mL Normal [facility] Comment on above: Performed By: #### P REGQNT #### [facility] [address] [place] [address] Dr. Prashant Kang HCG RANGE SEE BELOW Normal [facility] Comment on above: Result Comment: 5-50 0.2-1 WEEK 50-500 1-2 WEEKS 100-5,000 2-3 WEEKS 500-10,000 3-4 WEEKS 1,000-50,000 4-5 WEEKS 10,000-100,000 5-6 WEEKS 15,000-200,000 6-8 WEEKS 10,000-100,000 2-3 MONTHS Performed By: #### P REGQNT #### [facility] [address] [place] [address] Dr. Prashant Kang PREG QUANT HCGon 07-04-2022 HCG QUANT <1 Normal [facility] Comment on above: Performed By: #### P REGQNT #### [facility] [address] [place] [address] Dr. Prashant Kang HCG RANGE SEE BELOW Normal [facility] Comment on above: Result Comment: 5-50 0.2-1 WEEK 50-500 1-2 WEEKS 100-5,000 2-3 WEEKS 500-10,000 3-4 WEEKS 1,000-50,000 4-5 WEEKS 10,000-100,000 5-6 WEEKS 15,000-200,000 6-8 WEEKS 10,000-100,000 2-3 MONTHS Performed By: #### P REGQNT #### [facility] [address] [place] [address] Dr. Prashant Kang PREG QUANT HCGon 05-16-2022 HCG QUANT <1 Normal [facility] Comment on above: Performed By: #### P TT, PT #### [facility] [address] [place] [address] Dr. Prashant Kang HCG RANGE SEE BELOW Normal [facility] Comment on above: Result Comment: 5-50 0.2-1 WEEK 50-500 1-2 WEEKS 100-5,000 2-3 WEEKS 500-10,000 3-4 WEEKS 1,000-50,000 4-5 WEEKS 10,000-100,000 5-6 WEEKS 15,000-200,000 6-8 WEEKS 10,000-100,000 2-3 MONTHS Performed By: #### P TT, PT #### [facility] [address] [place] [address] Dr. Prashant Kang PREG QUANT HCGon 05-08-2022 HCG QUANT <1 Normal [facility] Comment on above: Performed By: #### P REGQNT #### [facility] [address] [place] [address] Dr. Prashant Kang HCG RANGE SEE BELOW Normal [facility] Comment on above: Result Comment: 5-50 0.2-1 WEEK 50-500 1-2 WEEKS 100-5,000 2-3 WEEKS 500-10,000 3-4 WEEKS 1,000-50,000 4-5 WEEKS 10,000-100,000 5-6 WEEKS 15,000-200,000 6-8 WEEKS 10,000-100,000 2-3 MONTHS Performed By: #### P REGQNT #### [facility] [address] [place] [address] Dr. Prashant Kang CALCIUMon 03-08-2022 Calcium [Mass/Vol] 8.6 mg/dL Normal 8.5-10.1 [facility] Comment on above: Performed By: #### C A #### [facility] [address] [place] [address] Dr. Prashant Kang CALCIUMon 03-07-2022 Calcium [Mass/Vol] 8.4 mg/dL Critically low 8.5-10.1 [facility] Comment on above: Performed By: #### C A #### [facility] [address] [place] [address] Dr. Prashant Kang PREG HCG QUALon 03-07-2022 , QUAL Negative Normal NEGATIVE [facility] Comment on above: Performed By: #### P REG #### [facility] [address] [place] [address] Dr. Prashant Kang Covid-19 PCR (CVDTB)on SARS-CoV-2 (COVID-19) RNA DENEEN+probe Ql (Unsp spec) Not detected Normal NOT DETECTED [facility] Comment on above: Result Comment: This test is not yet approved or cleared by the [place] FDA. When there are no FDA-approved or cleared tests available, and other criteria are met, FDA can make tests available under an emergency access mechanism called an Emergency Use Authorization (EUA). The EUA for this test is supported by the [place] of Health and Human Service's (HHS's) declaration [...] SARS-CoV-2. Performed By: #### C VDTB #### [facility] [address] [place] [address] Dr. Prashant Kang CALCIUMon 02-24-2022 Calcium [Mass/Vol] 8.8 mg/dL Normal 8.5-10.1 [facility] Comment on above: Performed By: #### P TT, PT #### [facility] [address] [place] [address] Dr. Prashant Kang CBC AUTO DIFFon 02-24-2022 BASO # 0.0 103/ul Normal 0.0-0.1 [facility] Comment on above: Performed By: #### P TT, PT #### [facility] [address] [place] [address] Dr. Prashant Kang Basophils/100 WBC (Bld) 0.3 % Normal 0.2-2.0 [facility] Comment on above: Performed By: #### P TT, PT #### [facility] [address] [place] [address] Dr. Prashant Kang EO # 0.1 103/ul Normal 0.0-0.7 [facility] Comment on above: Performed By: #### P TT, PT #### [facility] [address] [place] [address] Dr. Prashant Kang Eosinophils/100 WBC (Bld) 1.5 % Normal 0.9-7.0 [facility] Comment on above: Performed By: #### P TT, PT #### [facility] [address] [place] [address] Dr. Prashant Kang Erythrocyte distribution width (RBC) [Ratio] 13.8 % Normal 11.0-15.0 [facility] Comment on above: Performed By: #### P TT, PT #### [facility] [address] [place] [address] Dr. Prashant Kang Hematocrit (Bld) [Volume fraction] 45.5 % Normal 36.0-48.0 [facility] Comment on above: Performed By: #### P TT, PT #### [facility] [address] [place] [address] Dr. Prashant Kang Hemoglobin (Bld) [Mass/Vol] 14.6 g/dL Normal 12.0-16.0 [facility] Comment on above: Performed By: #### P TT, PT #### [facility] [address] [place] [address] Dr. Prashant Kang IG # 0.02 10e3/ul Normal 0.00-0.03 [facility] Comment on above: Performed By: #### P TT, PT #### [facility] [address] [place] [address] Dr. Prashant Kang IG % 0.3 % Normal 0.0-0.5 [facility] Comment on above: Performed By: #### P TT, PT #### [facility] [address] [place] [address] Dr. Prashant Kang LYMPH # 1.6 103/ul Normal 1.2-3.8 [facility] Comment on above: Performed By: #### P TT, PT #### [facility] [address] [place] [address] Dr. Prashant Kang Lymphocytes/100 WBC (Bld) 23.5 % Normal 20.5-60.0 [facility] Comment on above: Performed By: #### P TT, PT #### [facility] [address] [place] [address] Dr. Prashant Kang MANUAL DIFF REQ NO Normal [facility] Comment on above: Performed By: #### P TT, PT #### [facility] [address] [place] [address] Dr. Prashant Kang MCH (RBC) [Entitic mass] 26.5 pg Critically low 26.7-34.0 [facility] Comment on above: Performed By: #### P TT, PT #### [facility] [address] [place] [address] Dr. Prashant Kang MCHC (RBC) [Mass/Vol] 32.1 g/dL Normal 29.9-35.2 [facility] Comment on above: Performed By: #### P TT, PT #### [facility] [address] [address] [address] Prashant Kang MCV (RBC) [Entitic vol] 82.7 fL Normal 81.0-99.0 [facility] Comment on above: Performed By: #### P TT, PT #### [facility] [address] [place] [address] Dr. Prashant Kang MONO # 0.5 103/ul Normal 0.3-0.8 [facility] Comment on above: Performed By: #### P TT, PT #### [facility] [address] [place] [address] Dr. Prashant Kang Monocytes/100 WBC (Bld) 7.5 % Normal 1.7-12.0 [facility] Comment on above: Performed By: #### P TT, PT #### [facility] [address] [place] [address] Dr. Prashant Kang NEUT # 4.6 103/ul Normal 1.4-6.5 [facility] Comment on above: Performed By: #### P TT, PT #### [facility] [address] [place] [address] Dr. Prashant Kang Neutrophils/100 WBC (Bld) 66.9 % Normal 43.0-75.0 [facility] Comment on above: Performed By: #### P TT, PT #### [facility] [address] [place] [address] Dr. Prashant Kang Platelet mean volume (Bld) [Entitic vol] 9.9 fL Normal 9.5-13.5 [facility] Comment on above: Performed By: #### P TT, PT #### [facility] [address] [place] [address] Dr. Prashant Kang PLT 239 103/ul Normal 150-450 [facility] Comment on above: Performed By: #### P TT, PT #### [facility] [address] [place] [address] Dr. Prashant Kang RBC 5.50 106/ul Critically high 4.20-5.40 [facility] Comment on above: Performed By: #### P TT, PT #### [facility] [address] [place] [address] Dr. Prashant Kang WBC 6.8 103/ul Normal 4.0-11.0 [facility] Comment on above: Performed By: #### P TT, PT #### [facility] [address] [place] [address] Dr. Prashant Kang MAGNESIUMon 02-24-2022 Magnesium [Mass/Vol] 2.0 mg/dL Normal 1.8-2.4 [facility] Comment on above: Performed By: #### P TT, PT #### [facility] [address] [place] [address] Dr. Prashant Kang PHOSPHORUSon 02-24-2022 Phosphate [Mass/Vol] 3.3 mg/dL Normal 2.6-4.7 [facility] Comment on above: Performed By: #### P TT, PT #### [facility] [address] [place] [address] Dr. Prashant Kang PROTIMEon 02-24-2022 INR Coag (PPP) [Relative time] 1.01 {INR} Normal [facility] Comment on above: Performed By: #### P TT, PT #### [facility] [address] [place] [address] Dr. Prashant Kang INR GUIDELINES SEE BELOW Normal [facility] Comment on above: Result Comment: SALIMA RED INR: 2.0 - 3.0 CONDITIONS NOT LISTED BELOW 2.5 - 3.5 FOR PROSTHETIC HEART VALVE REPLACEMENT 2.5 - 3.5 RECURRENT THROMBOSIS Performed By: #### P TT, PT #### [facility] [address] [place] [address] Dr. Prashant Kang PT Coag (PPP) [Time] 10.9 s Normal 9.0-11.6 [facility] Comment on above: Performed By: #### P TT, PT #### [facility] [address] [place] [address] Dr. Prashant Kang PTTon 02-24-2022 aPTT Coag (Bld) [Time] 28.9 s Normal 22.3-36.2 [facility] Comment on above: Performed By: #### P TT, PT #### [facility] [address] [place], [place] [address] Dr. Prashant Kang TSHon 02-24-2022 TSH 1.163 uIU/mL Normal 0.358-3.740 [facility] Comment on above: Performed By: #### P TT, PT #### [facility] [address] [place], [place] [address] Dr. Prashant Kang US THYROID FN ASP BXon 02-09 US THYROID FN ASP BX Begin Addendum #1 COLLECTED DATE/TIME: 02/03/2022 11:36 EDT Final Diagnosis Report for [facility] [place] [place] (A/B) THYROID ISTHMUS NODULE, FINE NEEDLE [...] 2. Pathology results are pending. Normal [facility] CT NECK ST W CONon CT NECK ST W CON EXAMINATION: CT [...] by: SHAILESH EMERY Date: 2022-01-20 13:05 Normal [facility] US THYROIDon 01-20-2022 US THYROID EXAMINATION: [...] isthmus nodule. Consider fine-needle aspiration TI-RADS: The [employer] TI-RADS committee's white paper recommendations for thyroid lesions classified as TR4 (moderately suspicious) are listed below: > 1.0 cm. Follow-up ultrasound in 1, 2, 3, and 5 years. > 1.5 cm. FNA. J. Am More Radiol 2017;14:587-595. Electronically authenticated by: SHAILESH EMERY Date: 2022-01-20 21:46 Normal [facility] CBC AUTO DIFFon 01-08-2022 BASO # 0.0 103/ul Normal 0.0-0.1 [facility] Comment on above: Performed By: #### P TT, PT #### [facility] [address] [address] [address] Prashant Kang Basophils/100 WBC (Bld) 0.4 % Normal 0.2-2.0 [facility] Comment on above: Performed By: #### P TT, PT #### [facility] [address] [place] [address] Dr. Prashant Kang EO # 0.2 103/ul Normal 0.0-0.7 [facility] Comment on above: Performed By: #### P TT, PT #### [facility] [address] [place] [address] Dr. Prashant Kang Eosinophils/100 WBC (Bld) 3.4 % Normal 0.9-7.0 [facility] Comment on above: Performed By: #### P TT, PT #### [facility] [address] [place] [address] Dr. Prashant Kang Erythrocyte distribution width (RBC) [Ratio] 14.6 % Normal 11.0-15.0 [facility] Comment on above: Performed By: #### P TT, PT #### [facility] [address] [place] [address] Dr. Prashant Kang Hematocrit (Bld) [Volume fraction] 42.9 % Normal 36.0-48.0 [facility] Comment on above: Performed By: #### P TT, PT #### [facility] [address] [place] [address] Dr. Prashant Kang Hemoglobin (Bld) [Mass/Vol] 13.4 g/dL Normal 12.0-16.0 [facility] Comment on above: Performed By: #### P TT, PT #### [facility] [address] [place] [address] Dr. Prashant Kang IG # 0.02 10e3/ul Normal 0.00-0.03 [facility] Comment on above: Performed By: #### P TT, PT #### [facility] [address] [place] [address] Dr. Prashant Kang IG % 0.3 % Normal 0.0-0.5 [facility] Comment on above: Performed By: #### P TT, PT #### [facility] [address] [place] [address] Dr. Prashant Kang LYMPH # 2.0 103/ul Normal 1.2-3.8 [facility] Comment on above: Performed By: #### P TT, PT #### [facility] [address] [address] [address] Prashant Kang Lymphocytes/100 WBC (Bld) 29.7 % Normal 20.5-60.0 [facility] Comment on above: Performed By: #### P TT, PT #### [facility] [address] [address] [address] Prashant Kang MANUAL DIFF REQ NO Normal [facility] Comment on above: Performed By: #### P TT, PT #### [facility] [address] [place] [address] Dr. Prashant Kang MCH (RBC) [Entitic mass] 26.3 pg Critically low 26.7-34.0 [facility] Comment on above: Performed By: #### P TT, PT #### [facility] [address] [place] [address] Dr. Prashant Kang MCHC (RBC) [Mass/Vol] 31.2 g/dL Normal 29.9-35.2 [facility] Comment on above: Performed By: #### P TT, PT #### [facility] [address] [place] [address] Dr. Prashant Kang MCV (RBC) [Entitic vol] 84.1 fL Normal 81.0-99.0 [facility] Comment on above: Performed By: #### P TT, PT #### [facility] [address] [place] [address] Dr. Prashant Kang MONO # 0.6 103/ul Normal 0.3-0.8 [facility] Comment on above: Performed By: #### P TT, PT #### [facility] [address] [place] [address] Dr. Prashant Kang Monocytes/100 WBC (Bld) 8.7 % Normal 1.7-12.0 [facility] Comment on above: Performed By: #### P TT, PT #### [facility] [address] [place] [address] Dr. Prashant Kang NEUT # 3.9 103/ul Normal 1.4-6.5 [facility] Comment on above: Performed By: #### P TT, PT #### [facility] [address] [place] [address] Dr. Prashant Kang Neutrophils/100 WBC (Bld) 57.5 % Normal 43.0-75.0 [facility] Comment on above: Performed By: #### P TT, PT #### [facility] [address] [place] [address] Dr. Prashant Kang Platelet mean volume (Bld) [Entitic vol] 9.9 fL Normal 9.5-13.5 [facility] Comment on above: Performed By: #### P TT, PT #### [facility] [address] [place] [address] Dr. Prashant Kang PLT 241 103/ul Normal 150-450 [facility] Comment on above: Performed By: #### P TT, PT #### [facility] [address] [place] [address] Dr. Prashant Kang RBC 5.10 106/ul Normal 4.20-5.40 [facility] Comment on above: Performed By: #### P TT, PT #### [facility] [address] [place] [address] Dr. Prashant Kang WBC 6.8 103/ul Normal 4.0-11.0 [facility] Comment on above: Performed By: #### P TT, PT #### [facility] [address] [place] [address] Dr. Prashant Kang GROUP A STREP CULTUREon 12-29 S. pyogenes Ag Ql (Unsp spec) Culture Observations: NEGATIVE FOR GROUP A STREPTOCOCCUS. Normal [facility] Comment on above: Performed By: #### P TT, PT #### [facility] [address] [place] [address] Dr. Prashant Kang PROF 14(COMP METB)on 022 Albumin [Mass/Vol] 3.6 g/dL Normal 3.4-5.0 [facility] Comment on above: Performed By: #### C MP #### [facility] [address] [place] [address] Dr. Prashant Kang Albumin/Globulin [Mass ratio] 0.8 {ratio} Normal [facility] Comment on above: Performed By: #### C MP #### [facility] [address] [place] [address] Dr. Prashant Kang ALP [Catalytic activity/Vol] 74 U/L Normal 46-116 [facility] Comment on above: Performed By: #### C MP #### [facility] [address] [place] [address] Dr. Prashant Kang ALT [Catalytic activity/Vol] 40 U/L Normal 14-59 [facility] Comment on above: Performed By: #### C MP #### [facility] [address] [place] [address] Dr. Prashant Kang Anion gap [Moles/Vol] 14.0 mmol/L Normal [facility] Comment on above: Performed By: #### C MP #### [facility] [address] [place] [address] Dr. Prashant Kang AST [Catalytic activity/Vol] 31 U/L Normal 15-37 [facility] Comment on above: Performed By: #### C MP #### [facility] [address] [place] [address] Dr. Prashant Kang Bilirubin [Mass/Vol] 0.4 mg/dL Normal 0.2-1.0 [facility] Comment on above: Performed By: #### C MP #### [facility] [address] [place] [address] Dr. Prashant Kang Calcium [Mass/Vol] 8.8 mg/dL Normal 8.5-10.1 [facility] Comment on above: Performed By: #### C MP #### [facility] [address] [place] [address] Dr. Prashant Kang Chloride [Moles/Vol] 105 mmol/L Normal 98-107 [facility] Comment on above: Performed By: #### C MP #### [facility] [address] [place] [address] Dr. Prashant Kang CO2 [Moles/Vol] 26.6 mmol/L Normal 21.0-32.0 [facility] Comment on above: Performed By: #### C MP #### [facility] [address] [address] [address] Prashant Kang Creatinine [Mass/Vol] 0.80 mg/dL Normal 0.55-1.02 [facility] Comment on above: Performed By: #### C MP #### [facility] [address] [address] [address] Prashant Kang EGFR-AF [facility] LUCIAN >60 Normal >=60 [facility] Comment on above: Performed By: #### C MP #### [facility] [address] [address] [address] Prashant Kang EGFR-NON AF [facility] LUCIAN >60 Normal >=60 [facility] Comment on above: Performed By: #### C MP #### [facility] [address] [place] [address] Dr. Prashant Kang Globulin (S) [Mass/Vol] 4.3 g/dL Normal [facility] Comment on above: Performed By: #### C MP #### [facility] [address] [address] [address] Prashant Kang Glucose [Mass/Vol] 101 mg/dL Normal 74-106 [facility] Comment on above: Performed By: #### C MP #### [facility] [address] [place] [address] Dr. Prashant Kang Potassium [Moles/Vol] 4.6 mmol/L Normal 3.5-5.1 [facility] Comment on above: Performed By: #### C MP #### [facility] [address] [place] [address] Dr. Prashant Kang Protein [Mass/Vol] 7.9 g/dL Normal 6.4-8.2 [facility] Comment on above: Performed By: #### C MP #### [facility] [address] [address] [address] Prashant Kang Sodium [Moles/Vol] 141 mmol/L Normal 136-145 [facility] Comment on above: Performed By: #### C MP #### [facility] [address] [place], [place] [id number] Dr. Prashant Kang Urea nitrogen [Mass/Vol] 11.0 mg/dL Normal 7.0-18.0 [facility] Comment on above: Performed By: #### C MP #### [facility] [address], [place] [address] Dr. Prashant Kang Urea nitrogen/Creatinine [Mass ratio] 13.8 mg/mg Normal [facility] Comment on above: Performed By: #### C MP #### [facility] [address], [place] [address] Dr. Prashant Kang STREPT SCREENon 01-08-2022 STREP SCREEN A Negative Normal NEGATIVE [facility] Comment on above: Performed By: #### P TT, PT #### [facility] [address], [place] [address] Dr. Prashant Kang XR NECK SOFT TISSUEon [...] MIKE SAID Date: 2022-01-08 04:43 Normal [facility] Covid-19 PCR (CVDTBH)on SARS-CoV-2 (COVID-19) RNA DENEEN+probe Ql (Unsp spec) Not detected Normal NOT DETECTED [facility] Comment on above: Result Comment: This test is not yet approved or cleared by the [place] FDA. When there are no FDA-approved or cleared tests available, and other criteria are met, FDA can make tests available under an emergency access mechanism called an Emergency Use Authorization (EUA). The EUA for this test is supported by the [place] of Health and Human Service's (HHS's) declaration [...] Performed By: #### P TT, PT #### [facility] [address] [place] [address] Dr. Prashant Kang Vital Signs Date Time Vital Sign Value Performing Clinician Donta coleman 06-12-2023 13:54-0500 Body mass index (BMI) [Ratio] 40.6 kg/m2 [employer] Work Phone: [facility] 06-12-2023 13:54-0500 Body weight 100.7 kg [employer] Work Phone: [facility] 06-12-2023 13:54-0500 Diastolic blood pressure 74 mm[Hg] [employer] Work Phone: [facility] 06-12-2023 13:54-0500 Systolic blood pressure 118 mm[Hg] [employer] Work Phone: [facility] 05-04-2022 09:40-0500 Body temperature 97.2 [degF] JONNY Garcia MD Work Phone: [facility] 05-04-2022 09:40-0500 Body weight 88.81 kg JONNY Garcia MD Work Phone: [facility] 05-04-2022 09:40-0500 Diastolic blood pressure 73 mm[Hg] JONNY Garcia MD Work Phone: [facility] 05-04-2022 09:40-0500 Heart rate 67 /min JONNY Garcia MD Work Phone: [facility] 05-04-2022 09:40-0500 Respiratory rate 16 /min JONNY Garcia MD Work Phone: [facility] 05-04-2022 09:40-0500 SaO2% (BldA) [Mass fraction] 100 % JONNY Garcia MD Work Phone: [facility] 05-04-2022 09:40-0500 Systolic blood pressure 113 mm[Hg] JONNY Garcia MD Work Phone: [facility] Encounters Encounter Date Encounter Type Care Provider Facility Start: 01-23-2024 End: 01-24-2024 Telephone encounter Arslan Garcia MD Work Phone: [facility] Comment on above: Patient Question Start: 01-14-2024 End: 01-14-2024 ambulatory ACOSTA TAYLER Not Available Start: 01-11-2024 End: 01-11-2024 ambulatory ACOSTA R TAYLER [facility] Start: 12-17-2023 End: 12-17-2023 ambulatory ACOSTA TAYLER Not Available Start: 11-13-2023 End: 11-13-2023 ambulatory ACOSTA TAYLER Not Available Start: 11-12-2023 Telephone encounter Arslan Garcia MD Work Phone: Radiation Oncology Comment on above: Patient Update; Orde rs; Future Appointment Start: 10-24-2023 End: 10-25-2023 ambulatory Arslan Garcia MD Work Phone: [facility] Oncology Comment on above: Thyroid cancer (HCC) (Primary Dx) Start: 10-24-2023 End: 10-25-2023 Telemedicine consultation with patient Arslan Garcia MD Work Phone: [facility] Start: 10-16-2023 End: 10-16-2023 ambulatory ACOSTA TAYLER Not Available Start: 09-14-2023 End: 09-14-2023 ambulatory ACOSTA TAYLER Not Available Start: 07-19-2023 Telephone encounter Edna Portillo Hematology/Oncology Comment on above: Orders Start: 06-25-2023 Telephone encounter Arslan Garcia MD Work Phone: Radiation Oncology Comment on above: Future Appointment Start: 06-12-2023 End: 06-12-2023 Office outpatient visit 15 minutes Acosta Jauregui DO Work Phone: [facility] Comment on above: Missed menses; Amenorrhea Start: 06-12-2023 End: 06-12-2023 ambulatory ACOSTA JAUREGUI Not Available Start: 02-14-2023 Telephone encounter [facility] Comment on above: Appointment Confirma tion Start: 02-08-2023 End: 02-08-2023 ambulatory SARA MEDELLIN Facility:[facility] Start: 02-01-2023 End: 02-01-2023 ambulatory SARA MEDLELIN Facility:[facility] Start: 11-09-2022 Telephone encounter [facility]slan Garcia [facility] Comment on above: Appointment Confirma tion [...] encounter [facility]slan Garcia [facility] Comment on above: Missed Appointment Start: 04-20-2022 Patient encounter procedure [facility] Provider [facility] Department Start: 04-11-2022 End: 04-11-2022 Patient encounter procedure Lab/[place] Zhao Work Phone: Radiation Oncology Comment on above: Thyroid cancer (HCC) (Primary Dx) Start: 03-09-2022 Encounter for preprocedural laboratory examination DR CHARLIE EASTMAN [facility] Start: 03-07-2022 End: 03-08-[address] [...] Date Care Activity Detail Author Start: 12-30-2023 Covid-19 Vaccine ( season) Covid-19 Vaccine ( season) [facility] Start: 12-30-2023 Influenza vaccination [facility] Start: 08-15-2023 End: 11-14-2023 Thyroglobulin and Thyrogobulin Ab panel - Serum or Plasma THYROGLOBULIN, SERUM WITH REFLEX TO IA OR LC-MS/MS Lab Routine Thyroid cancer (HCC) Expected: 08/15/2023, Expires: 11/14/2023 [facility] Work Phone: Comment on above: Expected: 08/15/2023 , Expires: 11/14/2023 Start: 08-15-2023 End: 11-14-2023 Thyrotropin [Units/volume] in Serum or Plasma THYROID STIMULATING HORMONE Lab Routine Thyroid cancer (HCC) Expected: 08/15/2023, Expires: 11/14/2023 [facility] Work Phone: Comment on above: Expected: 08/15/2023 , Expires: 11/14/2023 Start: 08-15-2023 End: 11-14-2023 Thyroxine (T4) [Mass/volume] in Serum or Plasma T4/THYROXINE Lab Routine Thyroid cancer (HCC) Expected: 08/15/2023, Expires: 11/14/2023 [facility] Work Phone: Comment on above: Expected: 08/15/2023 , Expires: 11/14/2023 Start: 06-26-2023 End: 06-26-2023 Professional / ancillary services management 06/26/2023 1:00 PM EST Ancillary Procedure [facility] [address] [place] [address] [facility] Start: 06-12-2023 End: 06-12-2024 US for US PELVIS-TRANSVAG IF INDICATED Imaging Routine Amenorrhea Expected: 06/12/2023 (Approximate), Expires: 06/12/2024 [facility] Comment on above: Expected: 06/12/2023 (Approximate), Expires: 06/12/2024 Start: 04-30-2023 Behavioral Health Screening Behavioral Health Screening [facility] Start: 04-30-2023 Depression Assessment Depression Ass essment [facility] Start: 12-29-2022 Covid-19 Vaccine () Covid-19 Vaccine () [facility] Start: 12-29-2022 Influenza vaccination [facility] Start: 07-02-2022 End: 09-01-2022 THYROGLOBULIN BY MASS SPECTROMETRY THYROGLOBULIN BY MASS SPECTROMETRY Lab Routine Thyroid cancer (HCC) Expected: 07/02/2022, Expires: 09/01/2022 [facility] Work Phone: Comment on above: Expected: 07/02/2022 , Expires: 09/01/2022 Start: 07-02-2022 End: 09-01-2022 Thyrotropin [Units/volume] in Serum or Plasma TSH BLD Lab Routine Thyroid cancer (HCC) Expected: 07/02/2022, Expires: 09/01/2022 [facility] Work Phone: Comment on above: Expected: 07/02/2022 , Expires: 09/01/2022 Start: 07-02-2022 End: 09-01-2022 Thyroxine (T4) [Mass/volume] in Serum or Plasma T4/THYROXINE BLOOD Lab Routine Thyroid cancer (HCC) Expected: 07/02/2022, Expires: 09/01/2022 [facility] Work Phone: Comment on above: Expected: 07/02/2022 , Expires: 09/01/2022 Start: 04-30-2022 DEPRESSION ASSESSMENT DEPRESSION ASS [facility] Start: 2022 HPV TESTING HPV TESTING [facility] Start: 2022 Screening for malign ant neoplasm of cervix HPV Testing [facility] Start: 12-29-2021 Influenza vaccination INFLUENZA (#1) [facility] Start: 04-30-2021 DEPRESSION ASSESSMENT DEPRESSION ASS [facility] Start: 2013 PAP TESTING PAP TESTING [facility] Start: 2013 Screening for malign ant neoplasm of cervix [facility] Start: 2011 Hepatitis B Vaccine (1 of 3 - 19+ 3-dose series) Hepatitis B Vaccine (1 of 3 - 19+ 3-dose series) [facility] Start: 2011 Urine microalbumin profile [facility] Start: 2010 Anxiety Screening Anxiety Screening [facility] Start: 2010 Depression Screening Depression Scre ening [facility] Start: 2010 HEPATITIS C SCREENING HEPATITIS C [facility] Start: 2010 Hepatitis C screening Hepatitis C [facility] Start: 2010 HIV SCREENING HIV SCREENING [facility] Start: 2010 HIV screening HIV Screening [facility] Start: 1998 PNEUMOCOCCAL (1 - PCV) PNEUMOCOCCAL (1 - PCV) [facility] Start: 1998 Pneumococcal vaccination [facility] Start: 1992 COVID-19 VACCINE (#1) COVID-19 VACCI NE (#1) [facility] Start: 1992 HEPATITIS B (1 of 3 - 3-dose series) HEPATITIS B (1 of 3 - 3-dose series) [facility] Start: 1992 Hepatitis B Vaccine (1 of 3 - 3-dose series) Hepatitis B Vaccine (1 of 3 - 3-dose series) [facility] CBC W Auto Different ial panel - Blood CBC and differential Lab Routine Amenorrhea Ordered: 06/12/2023 [facility] Comment on above: Ordered: 06/12/2023 hCG, quantitative, hCG, quantitative, Lab Routine Amenorrhea Ordered: 06/12/2023 [facility] Comment on above: Ordered: 06/12/2023 Hemoglobin A1c measurement Hemoglobin A1c Lab Routine Amenorrhea Ordered: 06/12/2023 [facility] Comment on above: Ordered: 06/12/2023 Prolactin Prolactin Lab Ro utine Amenorrhea Ordered: 06/12/2023 [facility] Comment on above: Ordered: 06/12/2023 Thyrotropin [Units/volume] in Serum or Plasma TSH Lab Routine Amenorrhea Ordered: 06/12/2023 [facility] Work Phone: Comment on above: Ordered[facility] 06/12/2023 [facility] Payers Date Payer Category Payer Medicaid [id number] 1990 Unknown [id number] 2.16.84 0.1.142480.3.579.2.593 1992 Unknown [id number] 2.16.84 0.1.554027.3.579.2.593 1992 Unknown [id number] 2.16.84 0.1.922965.3.579.2.593 1992 Unknown [id number] 2.16.84 0.1.326841.3.579.2.593 1992 Unknown [id number] 2.16.84 0.1.150641.3.579.2.593 1992 Unknown [id number] 2.16.84 0.1.535104.3.579.2.593 1992 Unknown [id number] 2.16.84 0.1.423053.3.579.2.593 1992 Unknown [id number] 2.16.84 0.1.465956.3.579.2.593 1992 Unknown [id number] 2.16.84 0.1.319641.3.579.2.593 1992 Unknown [id number] 2.16.84 0.1.187058.3.579.2.593 1992 Unknown [id number] 2.16.84 0.1.089204.3.579.2.593 1992 Unknown [id number] 2.16.84 0.1.734616.3.579.2.593 1992 Unknown [id number] 2.16.84 0.1.503009.3.579.2.593 1992 Unknown [id number] 2.16.84 0.1.804728.3.579.2.593 1992 Unknown [id number] 2.16.84 0.1.982481.3.579.2.593 1992 Unknown [id number] 2.16.8 40.1.953002.3.579.2.1286 1992 Unknown [id number] 2.16.8 40.1.161563.3.579.2.1286 1992 Unknown [id number] 2.16.84 0.1.111470.3.579.2.1259 1992 Unknown [id number] 2.16.84 0.1.947439.3.579.2.1259 1992 Unknown [id number] 2.16.84 0.1.058264.3.579.2.1259 1992 Unknown [id number] 2.16.84 0.1.403340.3.579.2.1259 1992 Unknown [id number] 2.16.84 0.1.570594.3.579.2.1259 1992 Unknown [id number] 2.16.84 0.1.035414.3.579.2.1259 1959 Unknown [id number] Social History Date Type Detail Facility Start: 04-11-2022 End: 09-23-2022 Tobacco smoking status IAIS Smokes tobacco daily [facility] History of tobacco use Cigarette Smoker [facility] Start: 04-11-2022 End: 11-02-2022 Cigarettes smoked current (pack per day) - Reported 1 [facility] Start: 04-11-2022 End: 09-23-2022 Tobacco use and exposure Smokeless tobacco non-user [facility] Start: 04-11-2022 End: 05-04-2022 Alcohol intake Current drinker of alcohol (finding) [facility] Start: 04-11-2022 [facility] Start: 1990 Sex Assigned At Not on file [facility] Start: 05-04-2022 End: 11-02-2022 Tobacco use panel [facility] Adult Depression Screening Assessment 0 [facility] Start: 10-03-2022 Alcohol Comment caffeine intak e: 1-2 cups per day [facility] Start: 1990 Sex Assigned At Female [facility] Start: 10-04-2022 Gender identity Identifies as female gender (finding) [facility] Clinical Notes 03-07-2022 to 01-24-2024 Telephone Encounter - Irais Turpin LPN - 01/24/2024 3:36 PM EDTTelephone Encounter - Irais Turpin LPN - 01/24/2024 3:36 PM EDTTelephone Encounter - Irais Turpin LPN - 01/23/2024 2:38 PM EDT Note Date & Type Note Facility 01-24-2024 Telephone encounter Note I notified Amanda of Dr. Garcia's response. She will call after she delivers in March 2024 to scheduled follow up. Irais Turpin RN [facility] 01-24-2024 Miscellaneous Notes I notified Amanda of Dr. Garcia's response. She will call after she delivers in March 2024 to scheduled follow up. Irais Turpin RN Amanda called stating she is currently and is being followed very closely by [facility] in [place] and her local [facility]. She states her high risk is d/t her thyroid and placental rupture with her previous . She doesn't feel she needs to see endocrinology for thyroid function monitoring while since she's being followed so closely by OB. She would like to continue follow up for her thyroid cancer with Dr. Garcia after delivery. Please advise. Ok with Dr. Garcia to not schedule consult with endocrinology? When would Dr. Garcia like to have follow up and possible lab work? Thanks Irais Turpin RN documented in this encounter [facility] 01-23-2024 Telephone encounter Note Amanda called stating she is currently and is being followed very closely by [facility] in [place] and her local [facility]. She states her high risk is d/t her thyroid and placental rupture with her previous . She doesn't feel she needs to see endocrinology for thyroid function monitoring while since she's being followed so closely by OB. She would like to continue follow up for her thyroid cancer with Dr. Garcia after delivery. Please advise. Ok with Dr. Garcia to not schedule consult with endocrinology? When would Dr. Garcia like to have follow up and possible lab work? Thanks Irais Turpin RN [facility] 11-13-[address] Christine office received ref and they will be calling patient to schedule appointment. Records faxed to Dr. Arteaga. Lawanda please send records to [employer] in your box Images from the original note were not included. Spoke to pt. She would like to see endocrinology in [place]. Pt's OB did adjust synthroid recently and has been monitoring labs. TREASURE- please sign pended order. PSS- please arrange visit when order is signed. KAREN Peters Tiffany Weyer, Angela, RN Previous Messages ----- Message ----- From: Arslan Garcia MD Sent: 11/02/2023 12:08 PM EDT To: Obi Dunlap; Carlos Nunez [facility] Given what sounds like patient is in first trimester and ongoing concerns of breast-feeding recommend she follow-up with endocrinology. documented in this encounter [facility] 11-13-[address] Christine office received ref and they will be calling patient to schedule appointment. [facility] 11-12-2023 Telephone encounter Note Records faxed to Dr. Arteaga. [facility] 11-12-2023 Telephone encounter Note Lawanda please send records to [employer] [facility] in your box [facility] 11-12-2023 Telephone encounter Note Images from the original note were not included. Spoke to pt. She would like to see endocrinology in [place]. Pt's OB did adjust synthroid recently and has been monitoring labs. TREASURE- please sign pended order. PSS- please arrange visit when order is signed. KAREN Peters, Danna Mcdowell RN Previous Messages ----- Message ----- From: Arslan Garcia MD Sent: 11/02/2023 12:08 PM EDT To: Obi Dunlap; Radgermaine Nunez [facility] Nurse [place] Given what sounds like patient is in first trimester and ongoing concerns of breast-feeding recommend she follow-up with endocrinology. [facility] 10-24-2023 Note HNO ID: [id number] Author: Arslan GARCIA MD Service: ? Author Type: Physician Type: Progress Notes Filed: 11/02/2023 12:08 Note Text: Unable to reach patient. [facility] 10-24-2023 History of Present illness Narrative Unable to reach patient. documented in this encounter [facility] 08-14-2023 Miscellaneous Notes TREASURE- please sign pended [...] Danna Pitts RN documented in this encounter [facility] 07-19-2023 Miscellaneous Notes Pt called to request labs sent to [facility]. Faxed to central scheduling. Edna Sal RN documented in this encounter [facility] 06-12-2023 History of Present illness Narrative Reason [...] Acosta Jauregui DO documented in this encounter [facility] 02-14-2023 Miscellaneous Notes Images from the original note were not included. Patient is scheduled for appointments Arslan Garcia MD Carlos [facility] Nurse [place]; Obi Genao 4 months with labs. Orders have been placed in [facility]. documented in this encounter [facility] 02-08-2023 Note HNO ID: [id number] Author: Arslan Garcia MD Service: ? Author [...] Time Spent: 6 minutes Arslan Garcia MD [facility] 11-09-2022 Miscellaneous Notes Images from the original note were not included. Patient is called and scheduled. Arslan Garcia MD [facility] Nurse [place]; Obi Genao 8 weeks with labs, orders placed, thank you documented in this encounter [facility] 07-17-2022 Miscellaneous Notes Appointment has been changed to phone appt. Tj Funez Pt called in requesting to be switched to a phone visit tomorrow. Her kids are on spring break and a couple of them are sick. Labs have been done and resulted. PSS- please change to phone visit for tomorrow. Danna Pitts RN documented in this encounter [facility] 05-04-2022 History of Present illness Narrative Radiation Oncology - FollowupNote PATIENT NAME: Amanda Cortez PATIENT : 1990 DIAGNOSIS: Thyroid cancer, classic papillary thyroid carcinoma, status post total thyroidectomy and right neck exploration on 03/07/2022, stage I [id number]. HPI: Patient returns after further work-up and [...] Take by mouth. OTC PRODUCT Supplement by [employer] for breast feeding levothyroxine (SYNTHROID) 112 [...] and right neck exploration on 03/07/2022, stage [id number]. Patient does have significant thyroglobulin antibody however [...] for this encounter. documented in this encounter [facility] 04-25-2022 Miscellaneous Notes Patient had been rescheduled. Tj Funez Images from the original note were not included. Called patient to reschedule, LMOV. MD Jessica Jenkins [facility] Nurse [place]; Tj Funez Unable to reach please reschedule documented in this encounter [facility] 04-11-2022 Nurse Note Amanda Cortez presents in office today for: Lab Draw during Office Visit . Ordering Provider: Felipe Garcia M.D. Test (s) ordered: TG Method for obtaining blood: Phlebotomy was performed, accessing right antecubital vein. Needle removed intact. Dressing secured. Patient denies discomfort, dizziness, light-headedness or weakness and left the department without assist. Danna Pitts RN documented in this encounter [facility] 03-07-2022 Note OPERATIVE NOTE OPERATION DATE: 03/07/2022 [...] the recovery room in good condition. [facility] Evaluation note Diagnosis Thyroid cancer (HCC)- Primary Malignant neoplasm of thyroid gland [facility] Diagnosis Thyroid cancer (HCC)- Primary Malignant neoplasm of thyroid gland [facility] Diagnosis Missed menses Amenorrhea Absence of menstruation documented in this encounter [facility]* Diagnosis Thyroid cancer (HCC)- Primary Malignant neoplasm of thyroid gland [facility] Diagnosis Thyroid cancer (HCC)- Primary Malignant neoplasm of thyroid gland [facility] Diagnosis Thyroid cancer (HCC)- Primary Malignant neoplasm of thyroid gland documented in this encounter [facility] Summary Purpose Family History No Family History Records FoundNo Family History Records FoundNo Family History Records FoundNo Family History Records Found Advance Directives No Advanced Directives Records FoundNo Advanced Directives Records FoundNo Advanced Directives Records FoundNo Advanced Directives Records Found Reason for Referral Specialty Diagnoses / Procedures Referred By Alex herron Referred To Contact Endocrinology Diagnoses Thyroid cancer (HCC) Procedures CONSULT TO ENDOCRINOLOGY OFFICE/OUTPATIENT [facility] 60 MINUTES Arslan Garcia MD [address] [place] [address] [place] [address] Referral ID Status Reason Start Date Expiration Date Visits Requested Visits Authorized [id number] Authorized PCP Requested Referral 11/12/2023 11/11/2024 1 1 Additional Source Comments Source Comments (unrecognize d section and content) In the event this informatio n is protected by the Federal Confidentiality of Alcohol and Drug Abuse Patient Records regulations: The Federal rules restrict any use of the information to criminally investigate or prosecute any alcohol or drug abuse patient.[facility] the event this information is protected by the Federal Confidentiality of Alcohol and Drug Abuse Patient Records regulations: The Federal rules restrict any use of the information to criminally investigate or prosecute any alcohol or drug abuse patient.[facility] the event this information is protected by the Federal Confidentiality of Alcohol and Drug Abuse Patient Records regulations: The Federal rules restrict any use of the information to criminally investigate or prosecute any alcohol or drug abuse patient.[facility]In the event this information is protected by the Federal Confidentiality of Alcohol and Drug Abuse Patient Records regulations: The Federal rules restrict any use of the information to criminally investigate or prosecute any alcohol or drug abuse patient.[facility] the event this information is protected by the Federal Confidentiality of Alcohol and Drug Abuse Patient Records regulations: The Federal rules restrict any use of the information to criminally investigate or prosecute any alcohol or drug abuse patient.[facility] the event this information is protected by the Federal Confidentiality of Alcohol and Drug Abuse Patient Records regulations: The Federal rules restrict any use of the information to criminally investigate or prosecute any alcohol or drug abuse patient.[facility] the event this information is protected by the Federal Confidentiality of Alcohol and Drug Abuse Patient Records regulations: The Federal rules restrict any use of the information to criminally investigate or prosecute any alcohol or drug abuse patient.[facility] the event this information is protected by the Federal Confidentiality of Alcohol and Drug Abuse Patient Records regulations: The Federal rules restrict any use of the information to criminally investigate or prosecute any alcohol or drug abuse patient.[facility]stownIn the event this information is protected by the Federal Confidentiality of Alcohol and Drug Abuse Patient Records regulations: The Federal rules restrict any use of the information to criminally investigate or prosecute any alcohol or drug abuse patient.[facility]stownIn the event this information is protected by the Federal Confidentiality of Alcohol and Drug Abuse Patient Records regulations: The Federal rules restrict any use of the information to criminally investigate or prosecute any alcohol or drug abuse patient.[facility]stownIn the event this information is protected by the Federal Confidentiality of Alcohol and Drug Abuse Patient Records regulations: The Federal rules restrict any use of the information to criminally investigate or prosecute any alcohol or drug abuse patient.[facility]stownIn the event this information is protected by the Federal Confidentiality of Alcohol and Drug Abuse Patient Records regulations: The Federal rules restrict any use of the information to criminally investigate or prosecute any alcohol or drug abuse patient.[facility] Reason for Visit (unrecogniz ed section and content) Reason Comments Phlebotomy Reason Comments Thyroid Cancer Follow up Reason Comments Missed Appointment Reason Comments Phone Visit Reason Comments Appointment Confirmation Reason Comments Amenorrhea Reason Comments Orders Reason Comments Future Appointment Reason Comments Established Patient Reason Comments Patient Update Orders Future Appointment Reason Comments Patient Question Care Teams (unrecognized sec tion and content) Hammerer Tab Relationship Specialty Start Date End Date Sara Medellin MD [address] [place] [address] PCP - General Family Medicine 04/11/22 Hammerer Tab Relationship Specialty Start Date End Date Sara Medellin MD [address] [place] [address] PCP - General Family Medicine 04/11/22 Hammerer Tab Relationship Specialty Start Date End Date Sara Medellin MD [address] [place] [address] PCP - General Family Medicine 04/11/22 Hammerer Tab Relationship Specialty Start Date End Date Sara Medellin MD PCP - General Family Medicine 04/11/22 Hammerer Tab Relationship Specialty Start Date End Date Sara Medellin MD PCP - General Family Medicine 04/11/22 Hammerer Tab Relationship Specialty Start Date End Date Sara Medellin MD [address] [place] [address] PCP - General Family Medicine 10/03/22 Hammerer Tab Relationship Specialty Start Date End Date Sara Medellin MD PCP - General Family Medicine 04/11/22 Hammerer Tab Relationship Specialty Start Date End Date Sara Medellin MD PCP - General Family Medicine 04/11/22 Hammerer Tab Relationship Specialty Start Date End Date Sara Medellin MD PCP - General Family Medicine 04/11/22 INFORMATION SOURCE (unrecogn ized section and content) DATE CREATED AUTHOR 09/02/2022 [facility] DATE CREATED AUTHOR AUTHOR'S ORGANIZ ATION 01/11/2024 [facility] DATE CREATED AUTHOR AUTHOR'S ORGANIZ ATION 01/13/2024 [facility] DATE CREATED AUTHOR AUTHOR'S ORGANIZ ATION 01/15/2024 [facility] FOR RECORDS PERTAINING TO PATIENTS WHO ARE [...] BE BASED ON THE PRIMARY CLINICAL RECORDS. [employer] provides no warranty or guarantee of the accuracy or completeness of information in this document.
[2024-02-08 15:01] LABS: Thyroid Stimulating Hormone 28.537 uIU/mL (0.358-3.740)
== END 2024-02-08 14:31 | disposition home or self-care (01) ==
LOC: LAB 14:30
PROVIDERS: PCP Family Medicine; Visit Provider Obstetrics & Gynecology
DX: E07.9 Disorder of thyroid, unspecified (principal)
CPT/HCPCS: 36415; 84443

== ENCOUNTER 2024-02-25 13:23 | Outpatient (OUT) | payer OTHER, SELFPAY ==
--- NOTE | 2024-02-25 13:25 | US_ITS ---
[address] [address] Patient Name: LITO RAMIREZ MRN: [id number] date: 1990 Sex: F Assigned Patient Location: [facility] Current Patient Location: [facility] Accession/Order Number: [id number] Exam Date: 02/25/2024 13:25 Report Date: 02/25/2024 14:04 At the request of: MARTINE LESTER Procedure: US OB growth EXAMINATION: US OB growth HISTORY: THYROID DISEASE COMPARISON: No relevant comparison available. TECHNIQUE: Transabdominal sonographic examination was performed for obstetrical and evaluation. FINDINGS: Number: 1 Heart Rate: 147 bpm H.B. /min Amniotic Fluid Volume: 19.7 cm, largest fluid pocket 6 cm Placental Location: Anterior BIOMETRY: BPD: 7.50 cm; 30 weeks 1 day; 14.90 % HC: 29.10 cm; 32 weeks 0 days; 42.50 % AC: 28.51 cm; 32 weeks 4 days; 86.70 % FL: 5.79 cm; 30 weeks 2 days; 18.50 % EFW:1743.73 g; 58.70 %, 3 lbs. 15 oz. FL/AC: 20.31 FL/BPD: 77.20 HC/AC: 1.02 GESTATIONAL AGE: Age by EDC: 31 weeks 0 days [place] by EDC: 2024-04-28 Age by current US: 31 weeks 2 days [place] by current US: 2024-04-26 US/US OB growth IMPRESSION: Normal interval growth *Reference: [facility] Practice Guideline for the performance of Obstetric Ultrasound Examinations, January 28, 2007. Electronically authenticated by: SHAILESH EMERY Date: 02/25/2024 14:04
--- OUTSIDE RECORDS SUMMARY | 2024-02-25 13:37 | XMS_ITS | CCD ---
Author Organization [facility] Care Team Providers Care Dental Manager Name Role Phone Sara Medellin MD Primary Care Provider [phone] RAIZA, DR GUERRA Consulting Unavailable HOY ., DR RUZI Primary Care Unavailable TIMMIS, DR GUERRA Attending Unavailable TIMMIS, DR GUERRA Admitting Unavailable JERMAN, DR GAIL Serrato Consulting Unavailable STOLL, DR GAIL Serrato Attending Unavailable JERMAN, DR GAIL Serrato Admitting Unavailable HOY ., DR RUIZ Primary Care Unavailable MIKE [...] GUERRA Admitting Unavailable MORGOLindsay, JOSE Consulting Unavailable TEGAN, YAMILET Consulting Unavailable CLARISSA NEWSOME Consulting Unavailable SHANIA [...] Unavailable Sara Medellin MD Primary Care Provider [phone] Sara Medellin MD Primary Care Provider [phone] Sara Medellin MD Primary Care Provider [phone] SARA MEDELLIN Primary Care Unavailable Arslan GARCIA Attending Unavailable THEO, SARA M Primary Care Unavailable Arslan GARCIA Attending Unavailable SARA MEDELLIN M Primary Care Unavailable DMITRY FITZGERALD Attending Unavailable SHANIA, ACOSTA R Referring Unavailable THEO, SARA M Primary Care Unavailable SHANIA, ACOSTA R Referring Unavailable HOY, SARA M Primary Care Unavailable SHANIA, ACOSTA Attending Unavailable SHANIA, ACOSTA Attending Unavailable SHANIA, ACOSTA Attending Unavailable SHANIA, ACOSTA Attending Unavailable SHANIA, ACOSTA Attending Unavailable SHANIA, ACOSTA Attending Unavailable Allergies Allergy Classification Reported Allergen(s) Allergy Type Date of Onset Reaction(s) Facility (20 sources) Cefaclor; Translations: [CEFACLOR] Drug Allergy 04-11-20 Hives, Shortness of Breath, Anaphylaxis [facility] (13 sources) Penicillins; Translations: [PENICILLINS] Drug Allergy 04-11-20 22 Hives, Shortness of Breath [facility] (2 sources) Cefaclor Drug Allergy 05-10-19 14 [facility] (2 sources) Penicillins Drug allergy (disorder) 05-10-19 14 [facility] (7 sources) Penicillin G sodium; Translations: [PENICILLIN G SODIUM] Allergy to substance 09-24-19 Anaphylaxis [facility] (5 sources) Cephalosporins (Antibiotic); Translations: [CEPHALOSPORINS] Propensity to adverse reactions to drug (disorder) 12-17-19 Anaphylaxis [facility] (5 sources) Penicillin; Translations: [PENICILLIN G] Drug Allergy 12-17-19 Anaphylaxis [facility] Medications Current Medications Medication Drug [...] VIAL VIA NEBULIZER EVERY 4 HOURS NEEDED aspirin 81 mg delayed release oral tablet (4 sources) Platelet Aggregation Inhibitor, Nonsteroidal Anti-inflammatory Drug Start: 10-16-2023 End: 10-15-2024 take 1 tablet by mouth once daily aspirin 81 MG EC tablet Indications: First trimester Take 1 tablet (81 mg) by mouth Daily 30 tablet 10/16/2023 10/15/2024 Active citalopram 20 mg oral tablet (6 sources) Serotonin Reuptake Inhibitor Start: 11-28-2023 take 1 tablet by mouth once daily in the morning citalopram (CeleXA) 20 MG tablet Indications: Anxiety, generalized (CMS/HCC) TAKE ONE TABLET BY MOUTH ONCE DAILY IN THE MORNING 30 tablet 11 11/28/2023 Active Start: 10-23-2022 End: 10-23-2023 take 1 tablet [...] 800 mg by mouth . levothyroxine sodium 0.2 mg oral tablet (14 sources) l-Thyroxine Start: 2023 take 1 tablet by mouth before mealtime levothyroxine (Synthroid, Levoxyl) 200 MCG tablet Indications: Thyroid disease (CMS/HCC) Take 1 tablet (200 mcg) by mouth in the morning. Take before meals. 90 tablet 3 10/16/2023 Active Start: 05-09-2023 take 1 tablet by олег th once [...] tablet by олег th daily before breakfast. janronine sodium 0.025 mg oral tablet (12 sources) l-Triiodothyronine Start: 04-07-20 22 take 1 tablet by mouth twice daily liothyronine (CYTOMEL) 25 mcg tablet TAKE ONE TABLET BY MOUTH TWICE A DAY FOR 30 DAYS 04/07/2022 Active Comment on above: TAKE ONE TABLET BY [facility] TWICE A DAY FOR 30 DAYS mometasone [...] Comment on above: Take 1 capsule by [facility] once daily. norethindrone 0.35 mg oral tablet (14 sources) Start: 2 take 1 tablet by mouth once daily JENCYCLA 0.35 mg tablet Take 1 tablet by mouth once daily. 04/07/2022 Active Comment on above: Take 1 tablet by [facility] once daily. omeprazole 40 mg delayed release oral capsule (18 sources) Proton Pump Inhibitor Start: 2 take 1 capsule by mouth before mealtime omeprazole (PriLOSEC) [address] capsule Take 40 mg by mouth in the morning. Take before meals. 01/25/2022 Active Comment on above: TAKE ONE CAPSULE BY MOUTH ONCE DAILY IN THE MORNING 30 TO 60 MINUTES PRIOR TO BREAKFAST OTC PRODUCT (12 sources) OTC PRODUCT Supplement by [facility] for breast feeding Active OTC PRODUCT Supp lement by [facility] for breast feeding 0 Active Comment on above: Supplement by [facility] for breast feeding 27-1 MG tablet (4 sources) Start: 01-14-2024 take 1 tablet by mouth once daily 27-1 MG tablet Indications: 25 weeks gestation of Take 1 tablet by mouth Daily 30 tablet 11 01/14/2024 Active Problems Active Problems Problem Classification Problem Date Documented Date Episodic/Chronic Administrative/social admission (1 source) Problems related to multiparity; Translations: [Problems related to multiparity] Onset: 01-11-2024 Episodic Cancer of thyroid (16 sources) Malignant tumor of thyroid gland; Translations: [Malignant neoplasm of thyroid gland] Onset: 03-07-2022 Chronic Cancer of thyroid (1 source) Personal history of malignant neoplasm of thyroid; Translations: [Personal history of malignant neoplasm of thyroid] Onset: 01-11-2024 Episodic Complications of surgical procedures or medical care (1 source) Postprocedural hypothyroidism; Translations: [Postprocedural hypothyroidism] Onset: 01-11-2024 Chronic Conditions associated with dizziness or vertigo (6 sources) Cochlear hydrops of right inner ear; 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, right ear] Onset: 01-03-2023 01-03-2023 Chronic Hemorrhage during ; abruptio placenta; placenta previa (1 source) Complete placenta previa NOS or without hemorrhage, second trimester; Translations: [Complete placenta previa nos or without hemorrhage, second trimester] Onset: 01-11-2024 Episodic Menopausal disorders (1 source) Hormone replacement therapy; Translations: [HORMONE REPLACEMENT THERAPY] Onset: 08-07-2022 Episodic Other aftercare (1 source) 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; Translations: [OTH PENITENTIARY CURRENT DRUG THERAPY] Onset: 08-24-2022 Episodic Other [...] Episodic Other ear and sense organ disorders (6 sources) Asymmetrical sensorineural hearing loss; Translations: [Sensorineural [...] Translations: [OBESITY UNSPECIFIED] Onset: 03-16-2022 Chronic Other and delivery including normal (8 sources) Vaginal delivery; Translations: [Encounter for full-term uncomplicated delivery] Onset: 09-23-2022 Resolved: 09-23-2022 09-23-2022 Episodic Other screening for suspected conditions (not mental [...] weeks gestation of ] Onset: 01-11-2024 Episodic Residual codes; unclassified (4 sources) Gestation period, 29 weeks; Translations: [29 weeks gestation of ] Onset: 02-11-2024 02-11-2024 Episodic Residual codes; unclassified (4 sources) History of placental abruption; Translations: [Personal history of other complications of , childbirth and the puerperium] Onset: 02-11-2024 02-11-2024 Episodic Residual codes; unclassified (4 sources) Noncompliance with medication regimen; Translations: [Non compliance w medication regimen] Onset: 02-11-2024 02-11-2024 Episodic Substance-related disorders (1 source) Nicotine dependence, cigarettes, uncomplicated; Translations: [NICOTINE DEPEND CIGARETTES UNCOMP] Onset: 03-16-2022 Chronic Thyroid disorders (6 sources) Nontoxic single thyroid nodule; Translations: [Hypothyroidism, unspecified] Onset: 01-24-2022 Chronic Thyroid disorders (9 sources) Disorder of thyroid, unspecified; Translations: [Mass of thyroid gland] Onset: 02-26-2022 Resolved: 09-23-2022 09-23-2022 Episodic Unclassified (4 sources) CONTACT W/AND (SUSP) EXPOS COVID-19; Translations: [CONTACT W/AND (SUSP) EXPOS COVID-19] Onset: 01-08-2022 Unclassified (1 source) Possible Placenta Previa Onset: 01-11-2024 Past or Other Problems Problem Classification Problem Date Documented Da te Episodic/Chronic Allergic reactions (1 source) Dermatitis, unspecified; [...] 01-10-2022 Episodic Diseases of mouth; excluding dental (7 sources) Other lesions of oral mucosa; Translations: [Oropharyngeal lesion] Onset: 02-26-2022 Resolved: 09-23-2022 09-23-2022 Episodic E Codes: Fire/burn (1 source) Contact with other heat and hot substances, initial encounter; Translations: [CONTACT OTH HEAT HOT SUBSTANCE INIT] Onset: 12-13-2021 Episodic Esophageal disorders (7 sources) Gastro-esophageal reflux disease without esophagitis; Translations: [Gastroesophageal reflux disease] Onset: 03-16-2022 Resolved: 09-23-2022 09-23-2022 Chronic Menstrual disorders (14 sources) Amenorrhea, unspecified; Translations: [Missed period] Onset: 08-17-2022 Resolved: 09-23-2022 Chronic Miscellaneous mental health disorders (6 sources) depression; Translations: [ depression] Onset: 09-23-2022 [...] Episodic Other ear and sense organ disorders (6 sources) Bilateral tinnitus; Translations: [Tinnitus, bilateral] Onset: 10-04-2022 10-04-2022 Episodic Other skin disorders (3 sources) Rash and other nonspecific skin eruption; Translations: [RASH OTH NONSPECIFIC SKIN ERUPTION] Onset: 02-06-2022 Episodic Unclassified (1 source) CONTACT W/AND (SUSP) EXPOS COVID-19; Translations: [CONTACT W/AND (SUSP) EXPOS COVID-19] Onset: 01-04-2022 Results Test Name Value Interpretation Reference Range Facility Urinalysis macro (dipstick) panel (U)on 02-11-2024 Bilirubin, UA Negative Negative - 4(70) +++ mg/dL [facility] Blood, UA Negative Negative - 50 Maury/mcL [facility] Clarity, UA Clear [facility] re Color, UA Yellow [facility] e Glucose, UA Negative Negative - 1999(110) ++++ mg/dL [facility] Interpretation and review of laboratory results Abnormal [facility] Ketones, UA Negative Negative - 160(16) ++++ mg/dL [facility] Leukocytes, UA Positive Negative - 500+++ Fan/mcL [facility] Nitrite, UA Negative Negative - Positive [facility] pH, UA 7 5 - 9 [facility] e Protein, UA Positive Negative - 1999(20) ++++ mg/dL [facility] Spec Grav, UA 1.02 1 - 1.03 [facility] Urobilinogen, UA 1.0 0.2 - 12 mg/dL [facility] THYROID STIM HORMONEon 1 Interpretation and review of laboratory results Abnormal [facility] TSH Qn 28.537 m[IU]/L High [facility] CNPNon 07-15-2024 CNPN Telephone (RADTSA) AMANDA CORTEZ ([id number]) 1990 F Date Time Provider Department 11/12/23 Arslan GARCIA During your visit today, we recorded the following information about you: Danna Pitts RN 11/12/2023 11:25 AM Signed Spoke to pt. She would like to see endocrinology in [place]. Pt's OB did adjust synthroid recently and has been monitoring labs. TREASURE- please sign pended order. PSS- please arrange visit when order is signed. KAREN Peters, Danna Mcdowell RN Previous Messages ----- Message ----- From: Arslan Garcia MD Sent: 11/02/2023 12:08 PM EDT To: Obi Dunlap; Carlos Wade Given what sounds like patient is in [...] a call today to get scheduled. Meryl Shore 11/28/2023 1:[address] Arteaga office. His office called patient on 11/21 and left message for her to call their office back to get scheduled. As of now they are waiting to hear back from patient. Meryl Schmid, Meryl 12/05/2023 9:12 AM Signed Called left message for Dr Arteaga office to call our office back re: status of this referral. Meryl Schmid, Meryl 12/10/2023 1:[address] Arteaga office spoke with Miguel. Per Miguel she states she called and left patient message on 11/21. As of now their office is waiting to hear back from patient. Meryl Schmid, Meryl 01/09/2024 2:[address] Arteaga office spoke with Miguel. She states patient has not called their office back and as of now they are waiting to hear from patient. I called tried to reach patient this afternoon unable to reach and unable to leave message at this time. Meryl Schmid Allergies As of Date: 11/12/2023 Noted Allergy Reaction CECLOR (CEFACLOR) 04/11/2022 4 - Hives 12 - Shortness of Breath PENICILLINS 04/11/2022 4 - Hives 12 - Shortness of Breath Date Reviewed: 05/04/2022 Reviewed by: Daisy Stoll, ARIELLE - Fully Assessed Reason for Visit: Patient Update [1234] Orders [681] Future Appointment [256] Primary Visit Diagnosis:Thyroid cancer (HCC) [C73] Order(s):CONSULT TO ENDOCRINOLOGY [9007] Order #: [id number]: 1 FUTURE Prescriptions as of 01/09/2024 - [...] Encounter Status:Closed by DAN[facility]HEM[facility]) AMANDA CORTEZ ([id number]) 1990 F Date Time Provider Department 07/19/23 EDNA SAL During your visit today, we recorded the following information about you: Edna Sal RN 07/19/2023 10:42 AM Signed Pt called to request labs sent to [facility]. Faxed to central scheduling. Edna Sal RN [...] Encounter Status:Closed by EDNA SAL [facility]23 [facility] Telephone (RADTSA) AMANDA CORTEZ ([id number]) 1990 F Date Time Provider Department 06/25/23 [...] Signed Patients lab orders were sent to [facility] and I scheduled her a phone visit thank you. Allergies As of Date: 06/25/2023 Noted Allergy Reaction CECLOR (CEFACLOR) 04/11/2022 4 - Hives 12 - Shortness of Breath PENICILLINS 04/11/2022 4 - Hives 12 - Shortness of Breath Date Reviewed: 05/04/2022 Reviewed by: Daisy Stoll MA - Fully Assessed Reason for Visit: Future Appointment [256] Primary Visit Diagnosis:Thyroid cancer (HCC) [C73] Order(s):T4/THYROXIN E [SQT4] Order #: [id number] FUTURE THYROID STIMULATING HORMONE [SQTSH] Order #: [id number] FUTURE THYROGLOBULIN, SERUM WITH REFLEX TO IA OR LC-MS/MS [SQTHYRORF] Order #: [id number] FUTURE Prescriptions as of 08/23/2023 - levothyroxine [...] Encounter Status:Closed by Arslan GARCIA on 08/15/23 [facility] Emelina 02-14-2023 [facility] AMANDA CORTEZ ([id number]) 1990 F Date Time Provider Department 02/14/23 Arslan GARCIA During your visit today, we recorded the following information about you: Obi Genao 02/14/2023 9:54 AM Signed Patient is scheduled for appointments [facility] [place]; Obi Genao 4 months with labs. Orders have been placed in [employer]. Allergies As of Date: 02/14/2023 Noted Allergy [...] Status:Closed by OBI GENAO on 02/14/23 Normal [facility] CBC W Auto Differential pane l (Bld)on 02-01-2023 Basophils (Bld) [#/Vol] 0.04 10*3/uL Normal <0.11 [facility] Comment on above: Order Comment: Speci men Type: BLOOD SPECIMEN Ordering Facility: [facility] Address: [address] [place] [address] Performed By: #### 5 7021-8 #### [facility] CLIA [id number] [address] [place] [address] Basophils/100 WBC (Bld) 0.5 % Normal [facility] Comment on above: Order Comment: Speci men Type: BLOOD SPECIMEN Ordering Facility: [facility] Address: [address] [place] [address] Performed By: #### 5 7021-8 #### [facility] CLIA [id number] [address] [place] [address] 38260 Differential cell count method Nom (Bld) Auto Normal [facility] Comment on above: Order Comment: Speci men Type: BLOOD SPECIMEN Ordering Facility: [facility] Address: [address] [place] [address] Performed By: #### 5 7021-8 #### [facility] CLIA [id number] [address] [place] [address] 28292 Eosinophils (Bld) [#/Vol] 0.19 10*3/uL Normal <0.46 [facility] Comment on above: Order Comment: Speci men Type: BLOOD SPECIMEN Ordering Facility: [facility] Address: [address] [place] [address] Performed By: #### 5 7021-8 #### [facility] CLIA [id number] [address] [place] [address] 69498 Eosinophils/100 WBC (Bld) 2.5 % Normal [facility] Comment on above: Order Comment: Speci men Type: BLOOD SPECIMEN Ordering Facility: [facility] Address: [address] [place] [address] Performed By: #### 5 7021-8 #### [facility] CLIA [id number] [address] [place] [address] 84807 Erythrocyte distribution width (RBC) [Ratio] 13.3 % Normal 11.5-15.0 [facility] Comment on above: Order Comment: Speci men Type: BLOOD SPECIMEN Ordering Facility: [facility] Address: [address] [place] [address] Performed By: #### 5 7021-8 #### [facility] CLIA [id number] [address] [place] [address] 77463 Hematocrit (Bld) [Volume fraction] 47.7 % High 36.0-46.0 [facility] Comment on above: Order Comment: Speci men Type: BLOOD SPECIMEN Ordering Facility: [facility] Address: [address] [place] [address] Performed By: #### 5 7021-8 #### [facility] CLIA [id number] [address] [place] [address] 02691 Hemoglobin (Bld) [Mass/Vol] 15.6 g/dL High 11.5-15.5 [facility] Comment on above: Order Comment: Speci men Type: BLOOD SPECIMEN Ordering Facility: [facility] Address: [address] [place] [address] Performed By: #### 5 7021-8 #### [facility] CLIA [id number] [address] [place] [address] 31270 Immature granulocytes (Bld) [#/Vol] 0.03 10*3/uL Normal <0.10 [facility] Comment on above: Order Comment: Speci men Type: BLOOD SPECIMEN Ordering Facility: [facility] Address: [address] [place] [address] Performed By: #### 5 7021-8 #### [facility] CLIA [id number] [address] [place] [address] 65175 Immature granulocytes/100 WBC (Bld) 0.4 % Normal [facility] Comment on above: Order Comment: Speci men Type: BLOOD SPECIMEN Ordering Facility: [facility] Address: [address] [place] [address] Performed By: #### 5 7021-8 #### [facility] CLIA [id number] [address] [place] [address] 86983 Lymphocytes (Bld) [#/Vol] 2.30 10*3/uL Normal 1.00-4.00 [facility] Comment on above: Order Comment: Speci men Type: BLOOD SPECIMEN Ordering Facility: [facility] Address: [address] [place] [address] Performed By: #### 5 7021-8 #### [facility] CLIA [id number] [address] [place] [address] 18351 Lymphocytes/100 WBC (Bld) 29.7 % Normal [facility] Comment on above: Order Comment: Speci men Type: BLOOD SPECIMEN Ordering Facility: [facility] Address: [address] [place] [address] Performed By: #### 5 7021-8 #### [facility] CLIA [id number] [address] [place] [address] 28449 MCH (RBC) [Entitic mass] 28.8 pg Normal 26.0-34.0 [facility] Comment on above: Order Comment: Speci men Type: BLOOD SPECIMEN Ordering Facility: [facility] Address: [address] [place] [address] Performed By: #### 5 7021-8 #### [facility] CLIA [id number] [address] [place] [address] 83079 MCHC (RBC) [Mass/Vol] 32.7 g/dL Normal 30.5-36.0 [facility] Comment on above: Order Comment: Speci men Type: BLOOD SPECIMEN Ordering Facility: [facility] Address: [address] [place] [address] Performed By: #### 5 7021-8 #### [facility] CLIA [id number] [address] [place] [address] 62764 MCV (RBC) [Entitic vol] 88.2 fL Normal 80.0-100.0 [facility] Comment on above: Order Comment: Speci men Type: BLOOD SPECIMEN Ordering Facility: [facility] Address: [address] [id number] Performed By: #### 5 7021-8 #### [facility] CLIA [id number] [address] [place] [address] 87826 Monocytes (Bld) [#/Vol] 0.49 10*3/uL Normal <0.87 [facility] Comment on above: Order Comment: Speci men Type: BLOOD SPECIMEN Ordering Facility: [facility] Address: [address] [place] [address] Performed By: #### 5 7021-8 #### [facility] CLIA [id number] [address] [place] [address] 02879 Monocytes/100 WBC (Bld) 6.3 % Normal [facility] Comment on above: Order Comment: Speci men Type: BLOOD SPECIMEN Ordering Facility: [facility] Address: [address] [place] [address] Performed By: #### 5 7021-8 #### [facility] CLIA [id number] [address] [place] [address] 85878 Neutrophils (Bld) [#/Vol] 4.70 10*3/uL Normal 1.45-7.50 [facility] Comment on above: Order Comment: Speci men Type: BLOOD SPECIMEN Ordering Facility: [facility] Address: [address] [place] [address] Performed By: #### 5 7021-8 #### [facility] CLIA [id number] [address] [place] [address] 13144 Neutrophils/100 WBC (Bld) 60.6 % Normal [facility] Comment on above: Order Comment: Speci men Type: BLOOD SPECIMEN Ordering Facility: [facility] Address: [address] [place] [address] Performed By: #### 5 7021-8 #### [facility] CLIA [id number] [address] [place] [address] 23898 Nucleated RBC (Bld) [#/Vol] 10*3/uL Normal <0.01 [facility] Comment on above: Order Comment: Speci men Type: BLOOD SPECIMEN Ordering Facility: [facility] Address: [address] [place] [address] Performed By: #### 5 7021-8 #### [facility] CLIA [id number] [address] [place] [address] Nucleated RBC/100 WBC (Bld) [Ratio] 0.0 /100 WBC Normal [facility] Comment on above: Order Comment: Speci men Type: BLOOD SPECIMEN Ordering Facility: [facility] Address: [address] [place] [address] Performed By: #### 5 7021-8 #### [facility] CLIA [id number] [address] [place] [address] 22096 Platelet mean volume (Bld) [Entitic vol] 9.6 fL Normal 9.0-12.7 [facility] Comment on above: Order Comment: Speci men Type: BLOOD SPECIMEN Ordering Facility: [facility] Address: [address] [place] [address] Performed By: #### 5 7021-8 #### [facility] CLIA [id number] [address] [place] [address] 19175 Platelets (Bld) [#/Vol] 248 10*3/uL Normal 150-400 [facility] Comment on above: Order Comment: Speci men Type: BLOOD SPECIMEN Ordering Facility: [facility] Address: [address] [place] [address] Performed By: #### 5 7021-8 #### [facility] CLIA [id number] [address] [place] [address] RBC (Bld) [#/Vol] 5.41 10*6/uL High 3.90-5.20 [facility] Comment on above: Order Comment: Speci men Type: BLOOD SPECIMEN Ordering Facility: [facility] Address: [address] [place] [address] Performed By: #### 5 7021-8 #### [facility] CLIA [id number] [address] [place] [address] WBC (Bld) [#/Vol] 7.75 10*3/uL Normal 3.70-11.00 [facility] Comment on above: Order Comment: Speci men Type: BLOOD SPECIMEN Ordering Facility: [facility] Address: [address] [place] [address] Performed By: #### 5 7021-8 #### [facility] CLIA [id number] [address] [place] [address] 70491 T3 SerPl-mCncon 02-01-2023 T3 [Mass/Vol] 123 ng/dL Normal 79-165 [facility] Comment on above: Order Comment: Speci men Type: BLOOD SPECIMEN Ordering Facility: [facility] Address: [address] [place] [address] Performed By: #### 3 053-6, 3016-3, 3026-2 #### [facility] CLIA [id number] [address] [place] [address] [place] T4 SerPl-mCncon 02-01-2023 T4 [Mass/Vol] 11.9 ug/dL High 5.5-10.2 [facility] Comment on above: Order Comment: Speci kishor Type: BLOOD SPECIMEN Ordering Facility: [facility] Address: [address] [place] [address] Performed By: #### 3 053-6, 3016-3, 3026-2 #### [facility] CLIA [id number] [address] [place] [address] [place] THYROGLOBULIN BY MASS SPECTR OMETRYon 02-01-2023 THYROGLOBULIN, LC-MS/MS <0.5 Low 1.3-31.8 [facility] Comment on above: Order Comment: Chel iverson Type: BLOOD SPECIMEN Ordering Facility: [facility] Address: [address] [place] [address] Result Comment: Results obtained with different test [...] developed and its performance characteristics determined by [facility]. It has not been cleared or approved by the US Food and Drug Administration. This test was performed in a CLIA certified laboratory and is intended for clinical purposes. Performed By: [facility] [address] [place] [address] Hand Turner: Prem Willis MD, PhD CLIA Number: [id number] Performed By: #### T [facility] #### [facility] CLIA [id number] [address] [place] [address] TSH SerPl-aCncon 02-01-2023 TSH Qn 0.960 m[IU]/L Normal 0.270-4.200 [facility] Comment on above: Order Comment: Speci men Type: BLOOD SPECIMEN Ordering Facility: [facility] Address: [address] [place] [address] Result Comment: If t he patient is , TSH reference range varies by gestational period: First Trimester (weeks 9-12): 0.180-2.990 mIU/L Second Trimester: 0.110-3.980 mIU/L Third Trimester: 0.480-4.710 mIU/L Suman Graf et al. A Practical Approach for the Verifications and Determination of Site- and Trimester-Specific Reference Intervals for Thyroid Function tests in . Thyroid, 2019:29:3:412-420. Rajesh Holman, et al. 2017 Guidelines of the [place] Thy[employer] for the Diagnosis and Management of Thyroid Disease during and the . Thyroid, 2017:27:3:315-389. Performed By: #### 3 053-6, 3016-3, 3026-2 #### [facility] CLIA [id number] [address] [facility] [id number] [place] [address] [place] PREG QUANT HCGon 08-17-2022 HCG QUANT 1 mIU/mL Normal [facility] Comment on above: Performed By: #### P REGQNT #### [facility] [address] [place] [address] Dr. Prashant Kang HCG RANGE SEE BELOW Normal [facility] Comment on above: Result Comment: 5-50 0.2-1 WEEK 50-500 1-2 WEEKS 100-5,000 2-3 WEEKS 500-10,000 3-4 WEEKS 1,000-50,000 4-5 WEEKS 10,000-100,000 5-6 WEEKS 15,000-200,000 6-8 WEEKS 10,000-100,000 2-3 MONTHS Performed By: #### P REGQNT #### [facility] [address] [place] [address] Dr. Prashant Kang PREG QUANT HCGon 07-04-2022 HCG QUANT <1 [facility] Comment on above: Performed By: #### P REGQNT #### [facility] [address] [place] [address] Dr. Prashant Kang HCG RANGE SEE BELOW Normal [facility] Comment on above: Result Comment: 5-50 0.2-1 WEEK 50-500 1-2 WEEKS 100-5,000 2-3 WEEKS 500-10,000 3-4 WEEKS 1,000-50,000 4-5 WEEKS 10,000-100,000 5-6 WEEKS 15,000-200,000 6-8 WEEKS 10,000-100,000 2-3 MONTHS Performed By: #### P REGQNT #### [facility] [address] [place] [address] Dr. Prashant Kang PREG QUANT HCGon 05-16-2022 HCG QUANT <1 Normal [facility] Comment on above: Performed By: #### P TT, PT #### [facility] [address] [place] [address] Dr. Prashant Kang HCG RANGE SEE BELOW [facility] Comment on above: Result Comment: 5-50 0.2-1 WEEK 50-500 1-2 WEEKS 100-5,000 2-3 WEEKS 500-10,000 3-4 WEEKS 1,000-50,000 4-5 WEEKS 10,000-100,000 5-6 WEEKS 15,000-200,000 6-8 WEEKS 10,000-100,000 2-3 MONTHS Performed By: #### P TT, PT #### [facility] [address] [place] [address] Dr. Prashant Kang PREG QUANT HCGon 05-08-2022 HCG QUANT <1 Normal [facility] Comment on above: Performed By: #### P REGQNT #### [facility] [address] [place] [address] Dr. Prashant Kang HCG RANGE SEE BELOW Normal [facility] Comment on above: Result Comment: 5-50 0.2-1 WEEK 50-500 1-2 WEEKS 100-5,000 2-3 WEEKS 500-10,000 3-4 WEEKS 1,000-50,000 4-5 WEEKS 10,000-100,000 5-6 WEEKS 15,000-200,000 6-8 WEEKS 10,000-100,000 2-3 MONTHS Performed By: #### P REGQNT #### [facility] [address] [place] [address] Dr. Prashant Kang CALCIUMon 03-08-2022 Calcium [Mass/Vol] 8.6 mg/dL Normal 8.5-10.1 [facility] Comment on above: Performed By: #### C A #### [facility] [address] [place] [address] Dr. Prashant Kang CALCIUMon 03-07-2022 Calcium [Mass/Vol] 8.4 mg/dL Critically low 8.5-10.1 [facility] Comment on above: Performed By: #### C A #### [facility] [address] [place] [address] Dr. Prashant Kang PREG HCG QUALon 03-07-2022 , QUAL Negative Normal NEGATIVE [facility] Comment on above: Performed By: #### P REG #### [facility] [address] [place] [address] Dr. Prashant Kang Covid-19 PCR ([facility])on SARS-CoV-2 (COVID-19) RNA DENEEN+probe Ql (Unsp spec) Not detected Normal NOT DETECTED [facility] Comment on above: Result Comment: This test is not yet approved or cleared by the [place] FDA. When there are no FDA-approved or cleared tests available, and other criteria are met, FDA can make tests available under an emergency access mechanism called an Emergency Use Authorization (EUA). The EUA for this test is supported by the Interactive Project Manager of Health and Human Service's (HHS's) declaration [...] SARS-CoV-2. Performed By: #### C VDTBH #### [facility] [address] [place] [address] Dr. Prashant Kang CALCIUMon 02-24-2022 Calcium [Mass/Vol] 8.8 mg/dL Normal 8.5-10.1 [facility] Comment on above: Performed By: #### P TT, PT #### [facility] [address] [place] [address] Dr. Prashant Kang CBC AUTO DIFFon 02-24-2022 BASO # 0.0 103/ul Normal 0.0-0.1 [facility] Comment on above: Performed By: #### P TT, PT #### [facility] [address] [place] [address] Dr. Prashant Kang Basophils/100 WBC (Bld) 0.3 % Normal 0.2-2.0 [facility] Comment on above: Performed By: #### P TT, PT #### [facility] [address] [place] [address] Dr. Prashant Kang EO # 0.1 103/ul Normal 0.0-0.7 [facility] Comment on above: Performed By: #### P TT, PT #### [facility] [address] [place] [address] Dr. Prashant Kang Eosinophils/100 WBC (Bld) 1.5 % Normal 0.9-7.0 [facility] Comment on above: Performed By: #### P TT, PT #### [facility] [address] [place] [address] Dr. Prashant Kang Erythrocyte distribution width (RBC) [Ratio] 13.8 % Normal 11.0-15.0 [facility] Comment on above: Performed By: #### P TT, PT #### [facility] [address] [place] [address] Dr. Prashant Kang Hematocrit (Bld) [Volume fraction] 45.5 % Normal 36.0-48.0 [facility] Comment on above: Performed By: #### P TT, PT #### [facility] [address] [place] [address] Dr. Prashant Kang Hemoglobin (Bld) [Mass/Vol] 14.6 g/dL Normal 12.0-16.0 [facility] Comment on above: Performed By: #### P TT, PT #### [facility] [address] [place] [address] Dr. Prashant Kang IG # 0.02 10e3/ul Normal 0.00-0.03 [facility] Comment on above: Performed By: #### P TT, PT #### [facility] [address] [place] [address] Dr. Prashant Kang IG % 0.3 % Normal 0.0-0.5 [facility] Comment on above: Performed By: #### P TT, PT #### [facility] [address] [place] [address] Dr. Prashant Kang LYMPH # 1.6 103/ul Normal 1.2-3.8 [facility] Comment on above: Performed By: #### P TT, PT #### [facility] [address] [place] [address] Dr. Prashant Kang Lymphocytes/100 WBC (Bld) 23.5 % Normal 20.5-60.0 [facility] Comment on above: Performed By: #### P TT, PT #### [facility] [address] [place] [address] Dr. Prashant Kang MANUAL DIFF REQ NO Normal [facility] Comment on above: Performed By: #### P TT, PT #### [facility] [address] [place] [address] Dr. Prashant Kang MCH (RBC) [Entitic mass] 26.5 pg Critically low 26.7-34.0 [facility] Comment on above: Performed By: #### P TT, PT #### [facility] [address] [place] [address] Dr. Prashant Kang MCHC (RBC) [Mass/Vol] 32.1 g/dL Normal 29.9-35.2 [facility] Comment on above: Performed By: #### P TT, PT #### [facility] [address] [place] [address] Dr. Prashant Kang MCV (RBC) [Entitic vol] 82.7 fL Normal 81.0-99.0 [facility] Comment on above: Performed By: #### P TT, PT #### [facility] [address] [place] [address] Dr. Prashant Kang MONO # 0.5 103/ul Normal 0.3-0.8 [facility] Comment on above: Performed By: #### P TT, PT #### [facility] [address] [place] [address] Dr. Prashant Kang Monocytes/100 WBC (Bld) 7.5 % Normal 1.7-12.0 [facility] Comment on above: Performed By: #### P TT, PT #### [facility] [address] [place] [address] Dr. Prashant Kang NEUT # 4.6 103/ul Normal 1.4-6.5 [facility] Comment on above: Performed By: #### P TT, PT #### [facility] [address] [place] [address] Dr. Prashant Kang Neutrophils/100 WBC (Bld) 66.9 % Normal 43.0-75.0 [facility] Comment on above: Performed By: #### P TT, PT #### [facility] [address] [address] [address] Prashant Kang Platelet mean volume (Bld) [Entitic vol] 9.9 fL Normal 9.5-13.5 [facility] Comment on above: Performed By: #### P TT, PT #### [facility] [address] [address] [address] Prashant Kang PLT 239 103/ul Normal 150-450 [facility] Comment on above: Performed By: #### P TT, PT #### [facility] [address] [address] [address] Prashant Kang RBC 5.50 106/ul Critically high 4.20-5.40 [facility] Comment on above: Performed By: #### P TT, PT #### [facility] [address] [place] [address] Dr. Prashant Kang WBC 6.8 103/ul Normal 4.0-11.0 [facility] Comment on above: Performed By: #### P TT, PT #### [facility] [address] [place] [address] Dr. Prashant Kang MAGNESIUMon 02-24-2022 Magnesium [Mass/Vol] 2.0 mg/dL Normal 1.8-2.4 [facility] Comment on above: Performed By: #### P TT, PT #### [facility] [address] [place] [address] Dr. Prashant Kang PHOSPHORUSon 02-24-2022 Phosphate [Mass/Vol] 3.3 mg/dL Normal 2.6-4.7 [facility] Comment on above: Performed By: #### P TT, PT #### [facility] [address] [address] [address] Prashant Kang PROTIMEon 02-24-2022 INR Coag (PPP) [Relative time] 1.01 {INR} Normal [facility] Comment on above: Performed By: #### P TT, PT #### [facility] [address] [place] [address] Dr. Prashant Kang INR GUIDELINES SEE BELOW Normal [facility] Comment on above: Result Comment: SALIMA RED INR: 2.0 - 3.0 CONDITIONS NOT LISTED BELOW 2.5 - 3.5 FOR PROSTHETIC HEART VALVE REPLACEMENT 2.5 - 3.5 RECURRENT THROMBOSIS Performed By: #### P TT, PT #### [facility] [address] [place] [address] Dr. Prashant Kang PT Coag (PPP) [Time] 10.9 s Normal 9.0-11.6 [facility] Comment on above: Performed By: #### P TT, PT #### [facility] [address] [place] [address] Dr. Prashant Kang PTTon 02-24-2022 aPTT Coag (Bld) [Time] 28.9 s Normal 22.3-36.2 [facility] Comment on above: Performed By: #### P TT, PT #### [facility] [address] [place] [address] Dr. Prashant Kang TSHon 02-24-2022 TSH 1.163 uIU/mL Normal 0.358-3.740 [facility] Comment on above: Performed By: #### P TT, PT #### [facility] [address] [place] [address] Dr. Prashant Kang US THYROID FN ASP BXon 02-09 US THYROID FN ASP BX Begin Addendum #1 COLLECTED DATE/TIME: 02/03/2022 11:36 EDT Final Diagnosis Report for [facility] [place] (A/B) THYROID ISTHMUS NODULE, FINE NEEDLE [...] 2. Pathology results are pending. Normal [facility] CT NECK ST W CONon 2 [...] SHAILESH EMERY Date: 2022-01-20 13:05 Normal [facility] US THYROIDon 01-20-2022 US THYROID EXAMINATION: [...] isthmus nodule. Consider fine-needle aspiration TI-RADS: The [place] [employer] TI-RADS committee's white paper recommendations for thyroid lesions classified as TR4 (moderately suspicious) are listed below: > 1.0 cm. Follow-up ultrasound in 1, 2, 3, and 5 years. > 1.5 cm. FNA. J. Am More Radiol 2017;14:587-595. Electronically authenticated by: SHAILESH EMERY Date: 2022-01-20 21:46 Normal [facility] CBC AUTO DIFFon 01-08-2022 BASO # 0.0 103/ul Normal 0.0-0.1 [facility] Comment on above: Performed By: #### P TT, PT #### [facility] [address] [place] [address] Dr. Prashant Kang Basophils/100 WBC (Bld) 0.4 % Normal 0.2-2.0 [facility] Comment on above: Performed By: #### P TT, PT #### [facility] [address] [place] [address] Dr. Prashant Kang EO # 0.2 103/ul Normal 0.0-0.7 [facility] Comment on above: Performed By: #### P TT, PT #### [facility] [address] [place] [address] Dr. Prashant Kang Eosinophils/100 WBC (Bld) 3.4 % Normal 0.9-7.0 [facility] Comment on above: Performed By: #### P TT, PT #### [facility] [address] [place] [address] Dr. Prashant Kang Erythrocyte distribution width (RBC) [Ratio] 14.6 % Normal 11.0-15.0 [facility] Comment on above: Performed By: #### P TT, PT #### [facility] [address] [place] [address] Dr. Prashant Kang Hematocrit (Bld) [Volume fraction] 42.9 % Normal 36.0-48.0 [facility] Comment on above: Performed By: #### P TT, PT #### [facility] [address] [place] [address] Dr. Prashant Kang Hemoglobin (Bld) [Mass/Vol] 13.4 g/dL Normal 12.0-16.0 [facility] Comment on above: Performed By: #### P TT, PT #### [facility] [address] [place] [address] Dr. Prashant Kang IG # 0.02 10e3/ul Normal 0.00-0.03 [facility] Comment on above: Performed By: #### P TT, PT #### [facility] [address] [place] [address] Dr. Prashant Kang IG % 0.3 % Normal 0.0-0.5 [facility] Comment on above: Performed By: #### P TT, PT #### [facility] [address] [place] [address] Dr. Prashant Kang LYMPH # 2.0 103/ul Normal 1.2-3.8 [facility] Comment on above: Performed By: #### P TT, PT #### [facility] [address] [place] [address] Dr. Prashant Kang Lymphocytes/100 WBC (Bld) 29.7 % Normal 20.5-60.0 [facility] Comment on above: Performed By: #### P TT, PT #### [facility] [address] [place] [address] Dr. Prashant Kang MANUAL DIFF REQ NO Normal [facility] Comment on above: Performed By: #### P TT, PT #### [facility] [address] [place] [address] Dr. Prashant Kang MCH (RBC) [Entitic mass] 26.3 pg Critically low 26.7-34.0 [facility] Comment on above: Performed By: #### P TT, PT #### [facility] [address] [place] [address] Dr. Prashant Kang MCHC (RBC) [Mass/Vol] 31.2 g/dL Normal 29.9-35.2 [facility] Comment on above: Performed By: #### P TT, PT #### [facility] [address] [place] [address] Dr. Prashant Kang MCV (RBC) [Entitic vol] 84.1 fL Normal 81.0-99.0 [facility] Comment on above: Performed By: #### P TT, PT #### [facility] [address] [place] [address] Dr. Prashant Kang MONO # 0.6 103/ul Normal 0.3-0.8 [facility] Comment on above: Performed By: #### P TT, PT #### [facility] [address] [place] [address] Dr. Prashant Kang Monocytes/100 WBC (Bld) 8.7 % Normal 1.7-12.0 [facility] Comment on above: Performed By: #### P TT, PT #### [facility] [address] [place] [address] Dr. Prashant Kang NEUT # 3.9 103/ul Normal 1.4-6.5 [facility] Comment on above: Performed By: #### P TT, PT #### [facility] [address] [place] [address] Dr. Prashant Kang Neutrophils/100 WBC (Bld) 57.5 % Normal 43.0-75.0 [facility] Comment on above: Performed By: #### P TT, PT #### [facility] [address] [place] [address] Dr. Prashant Kang Platelet mean volume (Bld) [Entitic vol] 9.9 fL Normal 9.5-13.5 [facility] Comment on above: Performed By: #### P TT, PT #### [facility] [address] [place] [address] Dr. Prashant Kang PLT 241 103/ul Normal 150-450 [facility] Comment on above: Performed By: #### P TT, PT #### [facility] [address] [place] [address] Dr. Prashant Kang RBC 5.10 106/ul Normal 4.20-5.40 [facility] Comment on above: Performed By: #### P TT, PT #### [facility] [address] [place] [address] Dr. Prashant Kang WBC 6.8 103/ul Normal 4.0-11.0 [facility] Comment on above: Performed By: #### P TT, PT #### [facility] [address] [place] [address] Dr. Prashant Kang GROUP A STREP CULTUREon 12-29 S. pyogenes Ag Ql (Unsp spec) Culture Observations: NEGATIVE FOR GROUP A STREPTOCOCCUS. Normal [facility] Comment on above: Performed By: #### P TT, PT #### [facility] [address] [place] [address] Dr. Prashant Kang PROF 14(COMP METB)on 022 Albumin [Mass/Vol] 3.6 g/dL Normal 3.4-5.0 [facility] Comment on above: Performed By: #### C MP #### [facility] [address] [place] [address] Dr. Prashant Kang Albumin/Globulin [Mass ratio] 0.8 {ratio} Normal [facility] Comment on above: Performed By: #### C MP #### [facility] [address] [place] [address] Dr. Prashant Kang ALP [Catalytic activity/Vol] 74 U/L Normal 46-116 [facility] Comment on above: Performed By: #### C MP #### [facility] [address] [place] [address] Dr. Prashant Kang ALT [Catalytic activity/Vol] 40 U/L Normal 14-59 [facility] Comment on above: Performed By: #### C MP #### [facility] [address] [place] [address] Dr. Prashant Kang Anion gap [Moles/Vol] 14.0 mmol/L Normal [facility] Comment on above: Performed By: #### C MP #### [facility] [address] [place] [address] Dr. Prashant Kang AST [Catalytic activity/Vol] 31 U/L Normal 15-37 [facility] Comment on above: Performed By: #### C MP #### [facility] [address] [place] [address] Dr. Prashant Kang Bilirubin [Mass/Vol] 0.4 mg/dL Normal 0.2-1.0 [facility] Comment on above: Performed By: #### C MP #### [facility] [address] [address] [address] Prashant Kang Calcium [Mass/Vol] 8.8 mg/dL Normal 8.5-10.1 [facility] Comment on above: Performed By: #### C MP #### [facility] [address] [address] [address] Prashant Kang Chloride [Moles/Vol] 105 mmol/L Normal 98-107 [facility] Comment on above: Performed By: #### C MP #### [facility] [address] [address] [address] Prashant Kang CO2 [Moles/Vol] 26.6 mmol/L Normal 21.0-32.0 [facility] Comment on above: Performed By: #### C MP #### [facility] [address] [place] [address] Dr. Prashant Kang Creatinine [Mass/Vol] 0.80 mg/dL Normal 0.55-1.02 [facility] Comment on above: Performed By: #### C MP #### [facility] [address] [address] [address] Prashant Kang EGFR-AF [place] CITIZ[place] >60 Normal >=60 [facility] Comment on above: Performed By: #### C MP #### [facility] [address] [place] [address] Dr. Prashant Kang EGFR-NON AF [place] CITIZ[place] >60 Normal >=60 [facility] Comment on above: Performed By: #### C MP #### [facility] [address] [address] [address] Prashant Kang Globulin (S) [Mass/Vol] 4.3 g/dL Normal [facility] Comment on above: Performed By: #### C MP #### [facility] [address] [address] [address] Prashant Kang Glucose [Mass/Vol] 101 mg/dL Normal 74-106 [facility] Comment on above: Performed By: #### C MP #### [facility] [address] [place] [address] Dr. Prashant Kang Potassium [Moles/Vol] 4.6 mmol/L Normal 3.5-5.1 [facility] Comment on above: Performed By: #### C MP #### [facility] [address] [address] [address] Prashant Kang Protein [Mass/Vol] 7.9 g/dL Normal 6.4-8.2 [facility] Comment on above: Performed By: #### C MP #### [facility] [address] [address] [address] Prashant Kang Sodium [Moles/Vol] 141 mmol/L Normal 136-145 [facility] Comment on above: Performed By: #### C MP #### [facility] [address] [address] [address] Prashant Kang Urea nitrogen [Mass/Vol] 11.0 mg/dL Normal 7.0-18.0 [facility] Comment on above: Performed By: #### C MP #### [facility] [address] [address] [address] Prashant Kang Urea nitrogen/Creatinine [Mass ratio] 13.8 mg/mg Normal [facility] Comment on above: Performed By: #### C MP #### [facility] [address] [address] [address] Prashant Kang STREPT SCREENon 01-08-2022 STREP SCREEN A Negative Normal NEGATIVE [facility] Comment on above: Performed By: #### P TT, PT #### [facility] [address] [address] [address] Prashant Kang XR NECK SOFT TISSUEon [...] MIKE BARNETT Date: 2022-01-08 04:43 Normal [facility] Covid-19 PCR ([facility])on SARS-CoV-2 (COVID-19) RNA DENEEN+probe Ql (Unsp spec) Not detected Normal NOT DETECTED [facility] Comment on above: Result Comment: This test is not yet approved or cleared by the [place] FDA. When there are no FDA-approved or cleared tests available, and other criteria are met, FDA can make tests available under an emergency access mechanism called an Emergency Use Authorization (EUA). The EUA for this test is supported by the Interactive Project Manager of Health and Human Service's (HHS's) declaration [...] Performed By: #### P TT, PT #### [facility] Laboratory [address] [place] [address] Dr. Prashant Kang Vital Signs Date Time Vital Sign Value Performing Clinician Moniquei virginia 02-11-2024 11:10-0400 Body mass index (BMI) [Ratio] 40.2 kg/m2 Dreampod Work Phone: [facility] 02-11-2024 11:10040 Body weight 99.7 kg Dreampod Work Phone: [facility] 02-11-2024 11:10-0400 Diastolic blood pressure 64 mm[Hg] Dreampod Work Phone: [facility] 02-11-2024 11:10-0400 Systolic blood pressure 112 mm[Hg] Dreampod Work Phone: [facility] 06-12-2023 13:54-0500 Body mass index (BMI) [Ratio] 40.6 kg/m2 Acosta Shania DO Work Phone: [facility] 06-12-2023 13:54-0500 Body weight 100.7 kg Acosta Shania DO Work Phone: [facility] 06-12-2023 13:54-0500 Diastolic blood pressure 74 mm[Hg] Acosta Shania DO Work Phone: [facility] 06-12-2023 13:54-0500 Systolic blood pressure 118 mm[Hg] Acosta Shania DO Work Phone: [facility] 05-04-2022 09:40-0500 Body temperature 97.2 [degF] NA Jose BULLOCK Work Phone: [facility] 05-04-2022 09:40-0500 Body weight 88.81 kg NA Jose BULLOCK Work Phone: [facility] 05-04-2022 09:40-0500 Diastolic blood pressure 73 mm[Hg] JONNY Garcia MD Work Phone: [facility] 05-04-2022 09:40-0500 Heart rate 67 /min JONNY Garcia MD Work Phone: [facility] 05-04-2022 09:40-0500 Respiratory rate 16 /min JONNY Garcia MD Work Phone: [facility] 05-04-2022 09:40-0500 SaO2% (BldA) [Mass fraction] 100 % JONNY Garcia MD Work Phone: [facility] 05-04-2022 09:40-0500 Systolic blood pressure 113 mm[Hg] JONNY Garcia MD Work Phone: [facility] Encounters Encounter Date Encounter Type Care Provider Facility Start: 02-11-2024 End: 02-11-2024 Bamboo flowsheet Acosta Shania DO Work Phone: [facility] Start: 02-11-2024 End: 02-11-2024 Bamboo flowsheet Acosta Shania DO Work Phone: [facility] Start: 02-11-2024 End: 02-11-2024 Office outpatient visit 15 minutes Acosta Shania DO Work Phone: [facility] Comment on above: Third trimester preg yogesh; Thyroid disease (CMS/HCC); 29 weeks gestation of ; History of placental abruption; Non compliance w medication regimen Start: 02-11-2024 End: 02-11-2024 ambulatory ACOSTA SHANIA Not Available Start: 02-08-2024 End: 02-08-2024 Clinisync Result Encounter Acosta Shania DO Work Phone: [facility] External Department Unsolicited Start: 02-08-2024 End: 02-08-2024 Clinisync Result Encounter Acosta Shania DO Work Phone: [facility] External Department Unsolicited Start: 01-23-2024 End: 01-24-2024 Telephone encounter Arslan Garcia MD Work Phone: Radiation Oncology Comment on above: Patient Question Start: 01-14-2024 End: 01-14-2024 ambulatory ACOSTA SHANIA Not Available Start: 01-11-2024 End: 01-11-2024 ambulatory ACOSTA R SHANIA [facility] Start: 12-17-2023 End: 12-17-2023 ambulatory ACOSTA SHANIA [...] minutes Acosta Shania DO Work Phone: [facility] Comment on above: Missed menses; Amenorrhea Start: 06-12-2023 End: 06-12-2023 ambulatory ACOSTA SHANIA Not Available Start: 02-14-2023 Telephone encounter [facility]slan [facility] MD [facility] Comment on above: Appointment Confirma tion Start: 02-08-2023 End: 02-08-2023 ambulatory SARA MEDELLIN Facility:[facility] Start: 02-01-2023 End: 02-01-2023 ambulatory SARA MEDELLIN Facility:[facility] Start: 11-09-2022 Telephone encounter Arslan Garcia MD [facility] Comment on above: Appointment Confirma [...] (HCC) (Primary Dx) Start: 04-25-2022 Telephone encounter G Felipe Garcia MD Work Phone: [facility] Comment on above: Missed Appointment Start: 04-20-2022 Patient encounter procedure [facility] Provider [facility] Department Start: 04-11-2022 End: 04-11-2022 Patient encounter procedure Lab/[place] Zhao Work Phone: Radiation Oncology Comment on above: Thyroid cancer (HCC) (Primary Dx) Start: 03-09-2022 Encounter for preprocedural laboratory examination DR CHARLIE EASTMAN [facility] Start: 03-07-2022 End: 03-08-[address] [...] 12-12-2021 End: 12-12-2021 ambulatory DHRUV MCDONALD Facility:[facility] Procedures Date Procedure Procedure Detail Performing Clinician Start: 02-11-2024 Urnls dip stick/tabl et rgnt non-auto w/o micrscp Acosta Shania DO Work Phone: Start: 02-08-2024 ALL THYROID STIM HORMONE Acosta Shania DO Work Phone: Plan of Treatment Date Care Activity Detail Author Start: 02-25-2024 End: 02-25-2024 Patient encounter procedure [facility] Start: 02-11-2024 End: 02-10-2025 US biophysical profile w non stress test US biophysical profile w non stress test Imaging Routine Thyroid disease (CMS/HCC) 29 weeks gestation of History of placental abruption Expected: 02/11/2024 (Approximate), Expires: 02/10/2025 [facility] Work Phone: Comment on above: Expected: 02/11/2024 (Approximate), Expires: 02/10/2025 Start: 02-11-2024 End: 02-10-2025 US for US OB SCAN FOR GROWTH Imaging Routine Thyroid disease (CMS/HCC) 29 weeks gestation of History of placental abruption Expected: 02/11/2024 (Approximate), Expires: 02/10/2025 [facility] Comment on above: Expected: 02/11/2024 (Approximate), Expires: 02/10/2025 Start: 02-11-2024 End: 02-11-2024 Patient encounter procedure [facility] Comment on above: Arrived Start: 12-30-2023 Covid-19 Vaccine ( season) Covid-19 Vaccine () [facility] Start: 12-30-2023 Influenza vaccination [facility] Start: 08-15-2023 End: 11-14-2023 Thyroglobulin and Thyrogobulin Ab panel - Serum or Plasma THYROGLOBULIN, SERUM WITH REFLEX TO IA OR LC-MS/MS Lab Routine Thyroid cancer (HCC) Expected: 08/15/2023, Expires: 11/14/2023 [facility] Work Phone: Comment on above: Expected: 08/15/2023 , Expires: 11/14/2023 Start: 08-15-2023 End: 11-14-2023 Thyrotropin [Units/volume] in Serum or Plasma THYROID STIMULATING HORMONE Lab Routine Thyroid cancer (HCC) Expected: 08/15/2023, Expires: 11/14/2023 [facility] Work Phone: Comment on above: Expected: 08/15/2023 , Expires: 11/14/2023 Start: 08-15-2023 End: 11-14-2023 Thyroxine (T4) [Mass/volume] in Serum or Plasma T4/THYROXINE Lab Routine Thyroid cancer (HCC) Expected: 08/15/2023, Expires: 11/14/2023 [facility] Work Phone: Comment on above: Expected: 08/15/2023 , Expires: 11/14/2023 Start: 06-26-2023 End: 06-26-2023 Professional / ancillary services management 06/26/2023 1:00 PM EST Ancillary Procedure [facility] [address] [place] [address] [place] [id number] [facility] Start: 06-12-2023 End: 06-12-2024 US for US PELVIS-TRANSVAG IF INDICATED Imaging Routine Amenorrhea Expected: 06/12/2023 (Approximate), Expires: 06/12/2024 [facility] Comment on above: Expected: 06/12/2023 (Approximate), Expires: 06/12/2024 Start: 04-30-2023 Behavioral Health Screening Behavioral Health Screening [facility] Start: 04-30-2023 Depression Assessment Depression Ass essment [facility] Start: 12-29-2022 Covid-19 Vaccine () Covid-19 Vaccine () [facility] Start: 12-29-2022 Influenza vaccination [facility] Start: 07-02-2022 End: 09-01-2022 THYROGLOBULIN BY MASS SPECTROMETRY THYROGLOBULIN BY MASS SPECTROMETRY Lab Routine Thyroid cancer (HCC) Expected: 07/02/2022, Expires: 09/01/2022 [facility] Work Phone: Comment on above: Expected: 07/02/2022 , Expires: 09/01/2022 Start: 07-02-2022 End: 09-01-2022 Thyrotropin [Units/volume] in Serum or Plasma TSH BLD Lab Routine Thyroid cancer (HCC) Expected: 07/02/2022, Expires: 09/01/2022 [facility] Work Phone: Comment on above: Expected: 07/02/2022 , Expires: 09/01/2022 Start: 07-02-2022 End: 09-01-2022 Thyroxine (T4) [Mass/volume] in Serum or Plasma T4/THYROXINE BLOOD Lab Routine Thyroid cancer (HCC) Expected: 07/02/2022, Expires: 09/01/2022 [facility] Work Phone: Comment on above: Expected: 07/02/2022 , Expires: 09/01/2022 Start: 04-30-2022 DEPRESSION ASSESSMENT DEPRESSION ASS [facility] Start: 2022 HPV TESTING HPV TESTING [facility] Start: 2022 Screening for malign ant neoplasm of cervix HPV Testing [facility] Start: 12-29-2021 Influenza vaccination INFLUENZA (#1) [facility] Start: 04-30-2021 DEPRESSION ASSESSMENT DEPRESSION ASS [facility] Start: 2013 PAP TESTING PAP TESTING [facility] Start: 2013 Screening for malign ant neoplasm of cervix [facility] Start: 2011 Hepatitis B Vaccine (1 of 3 - 19+ 3-dose series) Hepatitis B Vaccine (1 of 3 - 19+ 3-dose series) [facility] Start: 2011 Urine microalbumin profile [facility] Start: 2010 Anxiety Screening Anxiety Screening [facility] Start: 2010 Depression Screening Depression Scre ening [facility] Start: 2010 HEPATITIS C SCREENING HEPATITIS C [facility] Start: 2010 Hepatitis C screening Hepatitis C [facility] Start: 2010 HIV SCREENING HIV SCREENING [facility] Start: 2010 HIV screening HIV Screening [facility] Start: 1998 PNEUMOCOCCAL (1 - PCV) PNEUMOCOCCAL (1 - PCV) [facility] Start: 1998 Pneumococcal vaccination [facility] Start: 1992 COVID-19 VACCINE (#1) COVID-19 VACCI NE (#1) [facility] Start: 1992 HEPATITIS B (1 of 3 - 3-dose series) HEPATITIS B (1 of 3 - 3-dose series) [facility] Start: 1992 Hepatitis B Vaccine (1 of 3 - 3-dose series) Hepatitis B Vaccine (1 of 3 - 3-dose series) [facility] CBC W Auto Different ial panel - Blood CBC and differential Lab Routine Amenorrhea Ordered: 06/12/2023 [facility] Comment on above: Ordered: 06/12/2023 hCG, quantitative, hCG, quantitative, Lab Routine Amenorrhea Ordered: 06/12/2023 [facility] Comment on above: Ordered: 06/12/2023 Hemoglobin A1c measurement Hemoglobin A1c Lab Routine Amenorrhea Ordered: 06/12/2023 [facility] Comment on above: Ordered: 06/12/2023 Prolactin Prolactin Lab Ro utine Amenorrhea Ordered: 06/12/2023 [facility] Comment on above: Ordered: 06/12/2023 Thyrotropin [Units/volume] in Serum or Plasma TSH Lab Routine Amenorrhea Ordered: 06/12/2023 [facility] Work Phone: Comment on above: Ordered: 06/12/2023 [facility] Payers Date Payer Category Payer Medicaid [id number] 2020 Medicaid (Managed Care) [facility] MEDICAID [id number] 1992 Unknown [id number] 2.16.840.1.558043.3.579.2. 593 1992 Unknown [id number] 2.16.840.1.948243.3.579.2. 593 1992 Unknown [id number] 2.16.840.1.072958.3.579.2. 593 1992 Unknown [id number] 2.16.840.1.010321.3.579.2. 593 1992 Unknown [id number] 2.16.840.1.029311.3.579.2. 593 1992 Unknown [id number] 2.16.840.1.031885.3.579.2. 593 1992 Unknown [id number] 2.16.840.1.237512.3.579.2. 593 1992 Unknown [id number] 2.16.840.1.772298.3.579.2. 593 1992 Unknown [id number] 2.16.840.1.001736.3.579.2. 593 1992 Unknown [id number] 2.16.840.1.561570.3.579.2. 593 1992 Unknown [id number] 2.16.840.1.100444.3.579.2. 593 1992 Unknown [id number] 2.16.840.1.526983.3.579.2. 593 1992 Unknown [id number] 2.16.840.1.444314.3.579.2. 593 1992 Unknown [id number] 2.16.840.1.640284.3.579.2. 593 1992 Unknown [id number] 2.16.840.1.165586.3.579.2. 593 1992 Unknown [id number] 2.16.840.1.181886.3.579.2. 1286 1992 Unknown [id number] 2.16.840.1.572315.3.579.2. 1286 1992 Unknown [id number] 2.16.840.1.131435.3.579.2. 1259 1992 Unknown [id number] 2.16.840.1.818423.3.579.2. 1259 1992 Unknown [id number] 2.16.840.1.679454.3.579.2. 1259 1992 Unknown [id number] 2.16.840.1.533596.3.579.2. 1259 1992 Unknown [id number] 2.16.840.1.622141.3.579.2. 1259 1992 Unknown [id number] 2.16.840.1.012413.3.579.2. 1259 1992 Unknown [id number] 2.16.840.1.831302.3.579.2. 1259 1959 Unknown [id number] Social History Date Type Detail Facility Start: 04-11-2022 End: 09-23-2022 Tobacco smoking status IAIS Smokes tobacco daily [facility] History of tobacco use Cigarette Smoker [facility] Start: 04-11-2022 End: 09-14-2023 Cigarettes smoked current (pack per day) - Reported 1 [facility] Start: 04-11-2022 End: 09-23-2022 Tobacco use and exposure Smokeless tobacco non-user [facility] Start: 04-11-2022 End: 02-11-2024 Alcohol intake Current drinker of alcohol (finding) [facility] Start: 04-11-2022 Alcohol Comment socially [facility] Start: 1990 Sex Assigned At Not on file [facility] Start: 05-04-2022 End: 09-14-2023 Tobacco use panel [facility] Adult Depression Screening Assessment 0 [facility] Start: 10-03-2022 Alcohol Comment caffeine intak e: 1-2 cups per day [facility] Start: 1990 Sex Assigned At Female [facility] Start: 10-04-2022 Gender identity Identifies as female gender (finding) [facility] Start: 08-06-2023 [facility] Clinical Notes 03-07-2022 to 02-11-2024 Sylvia Prasanth, LOAD [employer] DUMP OPERATOR - 02/11/2024 10:50 AM EDTTelephone Encounter - Irais Turpin, LOAD HAUL DUMP OPERATOR - 01/24/2024 3:36 PM EDTTelephone Encounter - Irais Turpin LO[employer]MP OPERATOR - 01/24/2024 3:36 PM EDT Note Date & Type Note Facility 02-11-2024 History of Present illness Narrative Reason for Appointment: Patient ID: Amanda Cortez is a 33 y.o. female who presents for Routine Visit Patient presents today for Return OB appointment. MEDICATIONS Current Outpatient Medications Medication Instructions aspirin 81 mg, Oral, Daily citalopram (CELEXA) 20 mg, Oral, Every morning levothyroxine (SYNTHROID, LEVOXYL) 200 mcg, Oral, Daily before breakfast omeprazole (PRILOSEC) 40 mg, Oral, Daily before breakfast 27-1 MG tablet 1 tablet, Oral, Daily ALLERGIES Allergies Allergen Reactions Cefaclor Anaphylaxis Cephalosporins Anaphylaxis Penicillin G Anaphylaxis Penicillin G Sodium Anaphylaxis PROBLEMS Active Ambulatory Problems Diagnosis Date Noted Papillary [...] of palate PCOS (polycystic ovarian syndrome) Thyroid cancer (CMS/HCC) Thyroid nodule (CMS/HCC) HISTORY PAST MEDICAL HISTORY SOCIAL HISTORY Past Medical History: Diagnosis Date Acid reflux 09/23/2022 Acid reflux Amenorrhea 09/23/2022 Chronic maxillary sinusitis Diarrhea Ear problems Family planning Fatigue Fibroadenoma of breast, right Foreign body sensation in throat History of miscarriage LPRD (laryngopharyngeal reflux disease) Obesity Papilloma of palate PCOS (polycystic ovarian syndrome) depression (CMS/HCC) 09/23/2022 Thyroid cancer (CMS/HCC) Thyroid mass (CMS/HCC) 09/23/2022 Thyroid nodule (CMS/HCC) Vaginal delivery 09/23/2022 Vaginal delivery Social History Tobacco Use Smoking status: Every Day Current packs/day: 1.00 Types: Cigarettes Smokeless tobacco: Never Substance Use Topics Alcohol use: Yes Alcohol/week: 1.0 - 2.0 standard drink of alcohol Types: 1 - 2 Standard drinks or equivalent per week Comment: caffeine intake: 1-2 cups per day Drug use: Never FAMILY HISTORY Family History Problem Relation Name Age of Onset Asthma Mother Izzy Fibromyalgia Mother Izzy Arthritis Mother Izzy Migraines Mother Izzy Diabetes Mother Izzy No Known Problems Daughter No Known Problems Son Diabetes Maternal Grandmother Lisa Ovarian cancer Maternal Grandmother Lisa Heart failure Maternal Grandfather Milan SURGICAL HISTORY Past Surgical History: Procedure Laterality Date CHOLECYSTECTOMY FNA BIOPSY INCLUDING ULTRASOUND GUIDANCE EA ADD LESION 02/03/2022 thyroid LAPAROSCOPY ABDOMEN DIAGNOSTIC THYROID SURGERY REVIEW OF SYSTEMS Review of Systems: Review of Systems All other systems reviewed and are negative. OBJECTIVE Objective: Physical Exam Constitutional: Appearance: Normal appearance. She is well-developed. Cardiovascular: Rate and Rhythm: Normal rate and regular rhythm. Pulmonary: Effort: Pulmonary effort is normal. Breath sounds: Normal breath sounds. Abdominal: General: Bowel sounds are normal. There is no distension. Palpations: Abdomen is soft. Tenderness: There is no abdominal tenderness. There is no guarding or rebound. Musculoskeletal: General: No swelling. Normal range of motion. Right lower leg: No edema. Left lower leg: No edema. Neurological: Mental Status: She is alert and oriented to person, place, and time. Skin: General: Skin is warm and dry. Psychiatric: Mood and Affect: Mood normal. Behavior: Behavior normal. Vitals and nursing note reviewed. Exam conducted with a instructional paraprofessional present. Vitals: Estimated body mass index is 40.2 kg/m as calculated from the following: Height as of 23: 5' 2 . Weight as of this encounter: 219 lb 12.8 oz. BP: 112/64 Patient's last menstrual period was 06/11/2023. ASSESSMENT & PLAN ICD-10-CM 1. Third trimester Z34.93 Urine dip Patient presents today for a routine obstetrics appointment. Patient is currently 29w0d with a Estimated Date of Delivery: 04/28/24. Patient is not currently compliant thyroid medication and discussed in length need for taking medication routinely. Nurse will contact patient weekly to see if she is taking medication. Patient to start having Growth Scans/NST/BPP's. Patient given orders prior to leaving office. Patient to return to clinic in 2 weeks. Stressed the fact to patient that medication for thyroid is not able to be adjusted due to not taking medication regularly and that labs are out of desired range for . Patient voiced she will start being more compliant with medication. Will continue to monitor patient for medication therapy. Patient to return to clinic in 2 weeks for routine OB appointment. Documented by Sylvia Rader LPN on behalf of: Acosta Jauregui DO documented in this encounter [facility] 01-24-2024 Telephone encounter Note I notified Amanda of Dr. Garcia's response. She will call after she delivers in March 2024 to scheduled follow up. Irais Turpin RN [facility] 01-24-2024 Miscellaneous Notes I notified Amanda of Dr. Garcia's response. She will call after she delivers in March 2024 to scheduled follow up. Irais Turpin RN Amanda called stating she is currently and is being followed very closely by [facility] in [place] and her local [facility] OPERATOR. She states her high risk is d/t [...] Irais Turpin RN documented in this encounter [facility] 01-23-2024 Telephone encounter Note Amanda called stating she is currently and is being followed very closely by [facility] OPERATOR in [place] and her local [facility] [facility] OPERATOR. She states her high risk is d/t [...] possible lab work? Thanks Irais Turpin RN [facility] 11-13-[address] Christine office received ref and they will be calling patient to schedule appointment. Records faxed to Dr. Arteaga. Lawanda please send records to [facility] in your box Images from the original note were not included. Spoke to pt. She would like to see endocrinology in [place]. Pt's OB did adjust synthroid recently and has been monitoring labs. TREASURE- please sign pended order. PSS- please arrange visit when order is signed. KAREN Peters Tiffany Weyer, Angela, RN Previous Messages ----- Message ----- From: Arslan Garcia MD Sent: 11/02/2023 12:08 PM EDT To: Obi Dunlap; Carlos Nunez [facility] Nurse Pool Given what sounds like patient is in first trimester and ongoing concerns of breast-feeding recommend she follow-up with endocrinology. documented in this encounter [facility] 11-13-[address] Christine office received ref and they will be calling patient to schedule appointment. [facility] 11-12-2023 Telephone encounter Note Records faxed to Dr. Arteaga. [facility] 11-12-2023 Telephone encounter Note Lawanda please send records to [employer] in your box [facility] 11-12-2023 Telephone encounter Note Images from the original note were not included. Spoke to pt. She would like to see endocrinology in [place]. Pt's OB did adjust synthroid recently and has been monitoring labs. TREASURE- please sign pended order. PSS- please arrange visit when order is signed. KAREN Peters Tiffany Weyer, Angela, RN Previous Messages ----- Message ----- From: Arslan Garcia MD Sent: 11/02/2023 12:08 PM EDT To: Obi Dunlap; Carlos Wade Given what sounds like patient is in first trimester and ongoing concerns of breast-feeding recommend she follow-up with endocrinology. [facility] 10-24-2023 Note HNO ID: [id number] Author: Arslan GARCIA MD Service: ? Author Type: Physician Type: Progress Notes Filed: 11/02/2023 12:08 Note Text: Unable to reach patient. [facility] 10-24-2023 History of Present illness Narrative Unable to reach patient. documented in this encounter [facility] 08-14-2023 Miscellaneous Notes TREASURE- please sign [...] Danna Pitts RN documented in this encounter [facility] 07-19-2023 Miscellaneous Notes Pt called to request labs sent to [facility]. Faxed to central scheduling. Edna Sal RN documented in this encounter [facility] 06-12-2023 History of Present illness Narrative [...] Acosta Jauregui DO documented in this encounter [facility] 02-14-2023 Miscellaneous Notes Images from the original note were not included. Patient is scheduled for appointments Arslan Garcia MD [facility]; Obi Genao 4 months with labs. Orders have been placed in epic. documented in this encounter [facility] 02-08-2023 Note HNO ID: [id number] Author: Arslan Garcia MD Service: ? Author [...] Time Spent: 6 minutes Arslan Garcia MD [facility] 11-09-2022 Miscellaneous Notes Images from the original note were not included. Patient is called and scheduled. Arslan Garcia MD [facility] Nurse [place]; Obi Genao 8 weeks with labs, orders placed, thank you documented in this encounter [facility] 07-17-2022 Miscellaneous Notes Appointment has been changed to phone appt. Tj Funez Pt called in requesting to be switched to a phone visit tomorrow. Her kids are on spring break and a couple of them are sick. Labs have been done and resulted. PSS- please change to phone visit for tomorrow. Danna Pitts RN documented in this encounter [facility] 05-04-2022 History of Present illness Narrative Radiation Oncology - FollowupNote PATIENT NAME: Amanda Cortez PATIENT : 1990 DIAGNOSIS: Thyroid cancer, classic papillary thyroid carcinoma, status post total thyroidectomy and right neck exploration on 03/07/2022, stage I [id number]. HPI: Patient returns after further work-up and [...] and right neck exploration on 03/07/2022, stage [id number]. Patient does have significant thyroglobulin antibody however [...] for this encounter. documented in this encounter [facility] 04-25-2022 Miscellaneous Notes Patient had been rescheduled. Tj Funez Images from the original note were not included. Called patient to reschedule, LMOV. Tj Garcia MD [facility] Nurse Pool; Tj Funez Unable to reach please reschedule documented in this encounter [facility] 04-11-2022 Nurse Note Amanda Cortez presents in office today for: Lab Draw during Office Visit . Ordering Provider: Felipe Garcia M.D. Test (s) ordered: TG Method for obtaining blood: Phlebotomy was performed, accessing right antecubital vein. Needle removed intact. Dressing secured. Patient denies discomfort, dizziness, light-headedness or weakness and left the department without assist. Danna Pitts, RN documented in this encounter [facility] 03-07-2022 Note OPERATIVE NOTE OPERATION DATE: [...] the recovery room in good condition. The Our [facility] Evaluation note Diagnosis Thyroid cancer (HCC)- Primary Malignant neoplasm of thyroid gland [facility] Thyroid cancer (HCC)- Primary Malignant neoplasm of thyroid gland [facility] Diagnosis Missed menses Amenorrhea Absence of menstruation documented in this encounter [facility]* Diagnosis Thyroid cancer (HCC)- Primary Malignant neoplasm of thyroid gland [facility] Thyroid cancer (HCC)- Primary Malignant neoplasm of thyroid gland [facility] Thyroid cancer (HCC)- Primary Malignant neoplasm of thyroid gland [facility] Diagnosis Third trimester state, incidental Thyroid disease (CMS/HCC) Unspecified disorder of thyroid 29 weeks gestation of History of placental abruption Non compliance w medication regimen documented in this encounter [facility] Summary [...] cancer (HCC) Procedures CONSULT TO ENDOCRINOLOGY OFFICE/OUTPATIENT NEW HIGH MDM 60 MINUTES Arslan Garcia MD [address] [place] [address] [place] [address] Referral ID Status Reason Start Date Expiration Date Visits Requested Visits Authorized [id number] Authorized PCP Requested Referral 11/12/2023 11/11/2024 1 1 Additional Source Comments Source Comments (unrecognize d section and content) In the event this informatio n is protected by the Federal Confidentiality of Alcohol and Drug Abuse Patient Records regulations: The Federal rules restrict any use of the information to criminally investigate or prosecute any alcohol or drug abuse patient.[facility] the event this information is protected by the Federal Confidentiality of Alcohol and Drug Abuse Patient Records regulations: The Federal rules restrict any use of the information to criminally investigate or prosecute any alcohol or drug abuse patient.[facility] the event this information is protected by the Federal Confidentiality of Alcohol and Drug Abuse Patient Records regulations: The Federal rules restrict any use of the information to criminally investigate or prosecute any alcohol or drug abuse patient.[facility] the event this information is protected by the Federal Confidentiality of Alcohol and Drug Abuse Patient Records regulations: The Federal rules restrict any use of the information to criminally investigate or prosecute any alcohol or drug abuse patient.[facility] the event this information is protected by the Federal Confidentiality of Alcohol and Drug Abuse Patient Records regulations: The Federal rules restrict any use of the information to criminally investigate or prosecute any alcohol or drug abuse patient.[facility] the event this information is protected by the Federal Confidentiality of Alcohol and Drug Abuse Patient Records regulations: The Federal rules restrict any use of the information to criminally investigate or prosecute any alcohol or drug abuse patient.[facility] the event this information is protected by the Federal Confidentiality of Alcohol and Drug Abuse Patient Records regulations: The Federal rules restrict any use of the information to criminally investigate or prosecute any alcohol or drug abuse patient.[facility] the event this information is protected by the Federal Confidentiality of Alcohol and Drug Abuse Patient Records regulations: The Federal rules restrict any use of the information to criminally investigate or prosecute any alcohol or drug abuse patient.[facility] the event this information is protected by the Federal Confidentiality of Alcohol and Drug Abuse Patient Records regulations: The Federal rules restrict any use of the information to criminally investigate or prosecute any alcohol or drug abuse patient.[facility] the event this information is protected by the Federal Confidentiality of Alcohol and Drug Abuse Patient Records regulations: The Federal rules restrict any use of the information to criminally investigate or prosecute any alcohol or drug abuse patient.[facility] the event this information is protected by the Federal Confidentiality of Alcohol and Drug Abuse Patient Records regulations: The Federal rules restrict any use of the information to criminally investigate or prosecute any alcohol or drug abuse patient.[facility] the event this information is protected by the Federal Confidentiality of Alcohol and Drug Abuse Patient Records regulations: The Federal rules restrict any use of the information to criminally investigate or prosecute any alcohol or drug abuse patient.[facility] Reason for Visit (unrecogniz ed section and content) Reason Comments Phlebotomy Reason Comments Thyroid Cancer Follow up Reason Comments Missed Appointment Reason Comments Phone Visit Reason Comments Appointment Confirmation Reason Comments Amenorrhea Reason Comments Orders Reason Comments Future Appointment Reason Comments Established Patient Reason Comments Patient Update Orders Future Appointment Reason Comments Patient Question Reason Comments Routine Visit Care Teams (unrecognized sec tion and content) Dental Manager Relationship Specialty Start Date End Date Sara Medellin MD [address] [phone] PCP - General Family Medicine 04/11/22 Dental Manager Relationship Specialty Start Date End Date Sara Medellin MD [address] [place] [address] PCP - General Family Medicine 04/11/22 Dental Manager Relationship Specialty Start Date End Date Sara Medellin MD [address] [place] [address] PCP - General Family Medicine 04/11/22 Dental Manager Relationship Specialty Start Date End Date Sara Medellin MD PCP - General Family Medicine 04/11/22 Dental Manager Relationship Specialty Start Date End Date Sara Medellin MD PCP - General Family Medicine 04/11/22 Dental Manager Relationship Specialty Start Date End Date Sara Medellin MD [address] [place] [address] PCP - General Family Medicine 10/03/22 Dental Manager Relationship Specialty Start Date End Date Sara Medellin MD PCP - General Family Medicine 04/11/22 Dental Manager Relationship Specialty Start Date End Date Sara Medellin MD PCP - General Family Medicine 04/11/22 Dental Manager Relationship Specialty Start Date End Date Sara Medellin MD PCP - General Family Medicine 04/11/22 Dental Manager Relationship Specialty Start Date End Date Sara Medellin MD [address] [place] [address] PCP - General Family Medicine 10/03/22 Dental Manager Relationship Specialty Start Date End Date Sara Medellin MD [address] [place] [address] PCP - General Family Medicine 10/03/22 INFORMATION SOURCE (unrecogn ized section and content) DATE CREATED AUTHOR 09/02/2022 [facility] DATE CREATED AUTHOR AUTHOR'S ORGANIZ ATION 01/11/2024 [facility] DATE CREATED AUTHOR AUTHOR'S ORGANIZ ATION 01/13/[address] [facility] DATE CREATED AUTHOR AUTHOR'S ORGANIZ ATION 02/12/2024 [facility] EPIC FOR RECORDS PERTAINING TO PATIENTS [...] BE BASED ON THE PRIMARY CLINICAL RECORDS. [facility]. provides no warranty or guarantee of the accuracy or completeness of information in this document.
== END 2024-02-25 13:24 | disposition home or self-care (01) ==
LOC: NOMS 13:23
PROVIDERS: PCP Family Medicine; Visit Provider Obstetrics & Gynecology
DX: E07.9 Disorder of thyroid, unspecified (principal); Z87.59 Personal history of other complications of pregnancy, childbirth and the puerperium; Z3A.31 31 weeks gestation of pregnancy
CPT/HCPCS: 76816

== ENCOUNTER 2024-02-26 07:12 | Outpatient (OUT) | payer OTHER, SELFPAY ==
--- OUTSIDE RECORDS SUMMARY | 2024-02-26 07:15 | XMS_ITS | CCD ---
Author Organization [facility] Care Team Providers Care Counter Checker Name Role Phone Sara Medellin MD Primary Care Provider [phone] RAIZA, DR GUERRA Consulting Unavailable HOY ., DR RUIZ Primary Care Unavailable TIMMIS, DR GUERRA Attending Unavailable TIMMIS, DR GUERRA Admitting Unavailable JERMAN, DR GAIL Serrato Consulting Unavailable STOLL, DR GAIL Serrato Attending Unavailable JERMAN, DR GAIL Serrato Admitting Unavailable HOY ., DR RUIZ Primary Care Unavailable MIKE BARENTT Consulting Unavailable SHANIA ., DR FARLEY Consulting [...] Unavailable Sara Medellin MD Primary Care Provider [phone] Sara Medellin MD Primary Care Provider [phone] Sara Medellin MD Primary Care Provider [id number] [...] Allergy 04-11-20 Hives, Shortness of Breath, Anaphylaxis [facility] (13 sources) Penicillins; Translations: [PENICILLINS] Drug Allergy 04-11-20 22 Hives, Shortness of Breath [facility] (2 sources) Cefaclor Drug Allergy 05-10-19 14 [facility] (2 sources) Penicillins Drug allergy (disorder) 05-10-19 14 [facility] (10 sources) Penicillin G sodium; Translations: [PENICILLIN G SODIUM] Allergy to substance 09-24-19 Anaphylaxis [facility] (8 sources) Cephalosporins (Antibiotic); Translations: [CEPHALOSPORINS] Propensity to adverse reactions to drug (disorder) 12-17-19 Anaphylaxis [facility] (8 sources) Penicillin; Translations: [PENICILLIN G] Drug Allergy [...] aspirin 81 mg delayed release oral tablet (7 sources) Platelet Aggregation Inhibitor, Nonsteroidal Anti-inflammatory Drug Start: 10-16-2023 End: 10-15-2024 take 1 tablet by mouth once daily aspirin 81 MG EC tablet Indications: First trimester Take 1 tablet (81 mg) by mouth Daily 30 tablet 11 10/16/2023 10/15/2024 Active citalopram 20 mg oral tablet (9 sources) Serotonin Reuptake Inhibitor Start: 11-28-2023 take [...] . levothyroxine sodium 0.2 mg oral tablet (17 sources) l-Thyroxine Start: 2023 take 1 tablet [...] Comment on above: TAKE ONE TABLET BY [facility] TWICE A DAY FOR 30 DAYS mometasone [...] Comment on above: Take 1 capsule by [facility] once daily. norethindrone 0.35 mg oral tablet (14 sources) Start: 2 take 1 tablet by mouth once daily JENCYCLA 0.35 mg tablet Take 1 tablet by mouth once daily. 04/07/2022 Active Comment on above: Take 1 tablet by [facility] once daily. omeprazole 40 mg delayed release oral capsule (20 sources) Proton Pump Inhibitor Start: 2 take [...] Momma's for breast feeding 27-1 MG tablet (7 sources) Start: 01-14-2024 take 1 tablet by mouth once daily 27-1 MG tablet Indications: 25 weeks gestation of Take 1 tablet by mouth Daily 30 tablet 11 01/14/2024 Active Problems Active Problems Problem Classification Problem Date Documented Date Episodic/Chronic Administrative/social admission (1 source) Problems related to multiparity; Translations: [Problems related to multiparity] Onset: 01-11-2024 Episodic Cancer of thyroid (19 sources) Malignant tumor of thyroid gland; Translations: [Malignant neoplasm of thyroid gland] Onset: 03-07-2022 Chronic Cancer of thyroid (1 source) Personal history of malignant neoplasm of thyroid; Translations: [Personal history of malignant neoplasm of thyroid] Onset: 01-11-2024 Episodic Complications of surgical procedures or medical care (1 source) Postprocedural hypothyroidism; Translations: [Postprocedural hypothyroidism] Onset: 01-11-2024 Chronic Conditions associated with dizziness or vertigo (9 sources) Cochlear hydrops of right inner ear; [...] 08-07-2022 Episodic Other aftercare (1 source) Other superintendent terminal (current) drug therapy; Translations: [OTH FDC CURRENT DRUG THERAPY] Onset: 08-24-2022 Episodic Other [...] Episodic Other ear and sense organ disorders (9 sources) Asymmetrical sensorineural hearing loss; Translations: [Sensorineural [...] 03-16-2022 Chronic Other and delivery including normal (13 sources) Vaginal delivery; Translations: [Encounter for full-term [...] ] Onset: 01-11-2024 Episodic Residual codes; unclassified (7 sources) Gestation period, 29 weeks; Translations: [29 weeks gestation of ] Onset: 02-11-2024 02-11-2024 Episodic Residual codes; unclassified (7 sources) History of placental abruption; Translations: [Personal history of other complications of , childbirth and the puerperium] Onset: 02-11-2024 02-11-2024 Episodic Residual codes; unclassified (7 sources) Noncompliance with medication regimen; Translations: [Non compliance w medication regimen] Onset: 02-11-2024 02-11-2024 Episodic Residual codes; unclassified (2 sources) Gestation period, 31 weeks; Translations: [31 weeks gestation of ] 02-25-2024 Episodic Substance-related disorders (1 source) Nicotine dependence, cigarettes, uncomplicated; Translations: [NICOTINE DEPEND CIGARETTES UNCOMP] Onset: 03-16-2022 Chronic Thyroid disorders (6 sources) Nontoxic single thyroid nodule; Translations: [Hypothyroidism, unspecified] Onset: 01-24-2022 Chronic Thyroid disorders (14 sources) Disorder of thyroid, unspecified; Translations: [Mass [...] 01-10-2022 Episodic Diseases of mouth; excluding dental (10 sources) Other lesions of oral mucosa; Translations: [Oropharyngeal lesion] Onset: 02-26-2022 Resolved: 09-23-2022 09-23-2022 Episodic E Codes: Fire/burn (1 source) Contact with other heat and hot substances, initial encounter; Translations: [CONTACT OTH HEAT HOT SUBSTANCE INIT] Onset: 12-13-2021 Episodic Esophageal disorders (10 sources) Gastro-esophageal reflux disease without esophagitis; Translations: [Gastroesophageal reflux disease] Onset: 03-16-2022 Resolved: 09-23-2022 09-23-2022 Chronic Menstrual disorders (17 sources) Amenorrhea, unspecified; Translations: [Missed period] Onset: 08-17-2022 Resolved: 09-23-2022 Chronic Miscellaneous mental health disorders (9 sources) depression; Translations: [ depression] Onset: 09-23-2022 [...] Episodic Other ear and sense organ disorders (9 sources) Bilateral tinnitus; Translations: [Tinnitus, bilateral] Onset: [...] UA Negative Negative - 4(70) +++ mg/dL [facility] Blood, UA Negative Negative - 50 Maury/mcL [facility] Clarity, UA Clear [facility] re Color, UA Yellow [facility] e Glucose, UA Negative Negative - 1999(110) ++++ mg/dL [facility] Interpretation and review of laboratory results Abnormal [facility] Ketones, UA Negative Negative - 160(16) ++++ mg/dL [facility] Leukocytes, UA Positive Negative - 500+++ Fan/mcL [facility] Nitrite, UA Negative Negative - Positive [facility] pH, UA 7 5 - 9 [facility] e Protein, UA Positive Negative - 1999(20) ++++ mg/dL [facility] Spec Grav, UA 1.02 1 - 1.03 [facility] care Urobilinogen, UA 1.0 0.2 - 12 mg/dL [facility] ALL THYROID STIM HORMONEon 1 0-11-2024 Interpretation and review of laboratory results Abnormal [facility] TSH Qn 28.537 m[IU]/L High [facility] Cytology Cervical or vaginal smear or scraping studyon 11-13-2023 [facility] CNPNon 11-12-2023 CNPN Telephone (RADTSA) OCRTEZAMANDA COYNE ([id number]) 1990 F Date Time Provider Department 11/12/23 Arslan GARCIA During your visit today, we recorded the following information about you: Danna Pitts RN 11/12/2023 11:25 AM Signed Spoke to pt. She would like to see endocrinology in [place]. Pt's OB did adjust synthroid recently and [...] Obi Genao 11/12/2023 11:26 AM Signed Lawanda boswell send records to [facility] in your [...] a call today to get scheduled. Meryl Schmid, Meryl 11/28/2023 1:[address] [...] [C73] Order(s):CONSULT TO ENDOCRINOLOGY [9007] Order #: [id number]: 1 FUTURE Prescriptions as of 01/09/2024 - [...] Encounter Status:Closed by DANNA PITTS on 11/13/23 [facility] 07-19-2023 CNPN Telephone (HEMASA) AMANDA CORTEZ ([id number]) 1990 F Date Time Provider Department 07/19/23 EDNA SAL During your visit today, we recorded the following information about you: Edna Sal RN 07/19/2023 10:42 AM Signed Pt called to request labs sent to [facility]. Faxed to central scheduling. Edna Sal RN [...] Encounter Status:Closed by EDNA SAL on 07/19/23 [facility] 06-25-2023 ALEXN Telephone (NU) AMANDA CORTEZ ([id number]) 1990 F Date Time Provider Department 06/25/23 [...] reach her to schedule. Danna Pitts RN Obi Genao 08/22/2023 9:25 AM Signed Called patient to schedule appts. Left message for her. Obi Genao 08/23/2023 8:29 AM Signed Patients lab orders were sent to [facility] and I scheduled her a phone [...] (HCC) [C73] Order(s):T4/THYROXIN E [SQT4] Order #: [id number] FUTURE THYROID STIMULATING HORMONE [SQTSH] Order #: [id number] FUTURE THYROGLOBULIN, SERUM WITH REFLEX TO IA OR LC-MS/MS [SQTHYRORF] Order #: [id number] FUTURE Prescriptions as of 08/23/2023 - levothyroxine [...] Encounter Status:Closed by Arslan GARCIA on 08/15/23 [facility] 02-14-2023 CNPN Telephone (NCCAP) AMANDA CORTEZ ([id number]) 1990 F Date Time Provider Department 02/14/23 Arslan GARCIA During your visit today, we recorded the following information about you: Obi Genao 02/14/2023 9:54 AM Signed Patient is scheduled for appointments Arslan Garcia MD [facility]; Obi Genao 4 months with labs. Orders have been placed in [facility]. Allergies As of Date: 02/14/2023 Noted Allergy Reaction CECLOR (CEFACLOR) 04/11/2022 4 - Hives 12 - Shortness of Breath PENICILLINS 04/11/2022 4 - Hives 12 - Shortness of Breath Date Reviewed: 05/04/2022 Reviewed by: Jerman July - Fully Assessed Reason for Visit: Appointment Confirmation [[id number]] Prescriptions as of 02/14/2023 - levothyroxine (SYNTHROID) [...] Status:Closed by OBI GENAO on 02/14/23 Normal [facility] CBC W Auto Differential pane l (Bld)on 02-01-2023 Basophils (Bld) [#/Vol] 0.04 10*3/uL Normal <0.11 [facility] Comment on above: Order Comment: Speci men Type: BLOOD SPECIMEN Ordering Facility: [facility] Address: [address] [place] [address] Performed By: #### 5 7021-8 #### [facility] CLIA [id number] [address] [place] [address]139 Basophils/100 WBC (Bld) 0.5 % Normal [facility] Comment on above: Order Comment: Speci men Type: BLOOD SPECIMEN Ordering Facility: [facility] Address: [address] [place] [address] Performed By: #### 5 7021-8 #### [facility] CLIA [id number] [address] [place] [address] 02850 Differential cell count method Nom (Bld) Auto Normal [facility] Comment on above: Order Comment: Speci men Type: BLOOD SPECIMEN Ordering Facility: [facility] Address: [address] [place] [address] Performed By: #### 5 7021-8 #### [facility] CLIA [id number] [address] [place] [address] 44043 Eosinophils (Bld) [#/Vol] 0.19 10*3/uL Normal <0.46 [facility] Comment on above: Order Comment: Speci men Type: BLOOD SPECIMEN Ordering Facility: [facility] Address: [address] [place] [address] Performed By: #### 5 7021-8 #### [facility] CLIA [id number] [address] [place] [address] 73644 Eosinophils/100 WBC (Bld) 2.5 % Normal [facility] Comment on above: Order Comment: Speci men Type: BLOOD SPECIMEN Ordering Facility: [facility] Address: [address] [place] [address] Performed By: #### 5 7021-8 #### [facility] CLIA [id number] [address] [place] [address] 71983 Erythrocyte distribution width (RBC) [Ratio] 13.3 % Normal 11.5-15.0 [facility] Comment on above: Order Comment: Speci men Type: BLOOD SPECIMEN Ordering Facility: [facility] Address: [address] [place] [address] Performed By: #### 5 7021-8 #### [facility] CLIA [id number] [address] [place] [address] 35372 Hematocrit (Bld) [Volume fraction] 47.7 % High 36.0-46.0 [facility] Comment on above: Order Comment: Speci men Type: BLOOD SPECIMEN Ordering Facility: [facility] Address: [address] [place] [address] Performed By: #### 5 7021-8 #### [facility] CLIA [id number] [address] [place] [address] 04238 Hemoglobin (Bld) [Mass/Vol] 15.6 g/dL High 11.5-15.5 [facility] Comment on above: Order Comment: Speci men Type: BLOOD SPECIMEN Ordering Facility: [facility] Address: [address] [place] [address] Performed By: #### 5 7021-8 #### [facility] CLIA [id number] [address] [place] [address] 03263 Immature granulocytes (Bld) [#/Vol] 0.03 10*3/uL Normal <0.10 [facility] Comment on above: Order Comment: Speci men Type: BLOOD SPECIMEN Ordering Facility: [facility] Address: [address] [place] [address] Performed By: #### 5 7021-8 #### [facility] CLIA [id number] [address] [place] [address] 06310 Immature granulocytes/100 WBC (Bld) 0.4 % Normal [facility] Comment on above: Order Comment: Speci men Type: BLOOD SPECIMEN Ordering Facility: [facility] Address: [address] [place] [address] Performed By: #### 5 7021-8 #### [facility] CLIA [id number] [address] [place] [address] 63526 Lymphocytes (Bld) [#/Vol] 2.30 10*3/uL Normal 1.00-4.00 [facility] Comment on above: Order Comment: Speci men Type: BLOOD SPECIMEN Ordering Facility: [facility] Address: [address] [place] [address] Performed By: #### 5 7021-8 #### [facility] CLIA [id number] [address] [place] [address] 98859 Lymphocytes/100 WBC (Bld) 29.7 % Normal [facility] Comment on above: Order Comment: Speci men Type: BLOOD SPECIMEN Ordering Facility: [facility] Address: [address] [place] [address] Performed By: #### 5 7021-8 #### [facility] CLIA [id number] [address] [place] [address] 60171 MCH (RBC) [Entitic mass] 28.8 pg Normal 26.0-34.0 [facility] Comment on above: Order Comment: Speci men Type: BLOOD SPECIMEN Ordering Facility: [facility] Address: [address] [place] [address] Performed By: #### 5 7021-8 #### [facility] CLIA [id number] [address] [place] [address] 25057 MCHC (RBC) [Mass/Vol] 32.7 g/dL Normal 30.5-36.0 [facility] Comment on above: Order Comment: Speci men Type: BLOOD SPECIMEN Ordering Facility: [facility] Address: [address] [place] [address] Performed By: #### 5 7021-8 #### [facility] CLIA [id number] [address] [place] [address] 83584 MCV (RBC) [Entitic vol] 88.2 fL Normal 80.0-100.0 [facility] Comment on above: Order Comment: Speci men Type: BLOOD SPECIMEN Ordering Facility: [facility] Address: [address] [place] [address] Performed By: #### 5 7021-8 #### [facility] CLIA [id number] [address] [place] [address] 64252 Monocytes (Bld) [#/Vol] 0.49 10*3/uL Normal <0.87 [facility] Comment on above: Order Comment: Speci men Type: BLOOD SPECIMEN Ordering Facility: [facility] Address: [address] [place] [address] Performed By: #### 5 7021-8 #### [facility] CLIA [id number] [address] [place] [address] 56807 Monocytes/100 WBC (Bld) 6.3 % Normal [facility] Comment on above: Order Comment: Speci men Type: BLOOD SPECIMEN Ordering Facility: [facility] Address: [address] [place] [address] Performed By: #### 5 7021-8 #### [facility] CLIA [id number] [address] [place] [address] 28050 Neutrophils (Bld) [#/Vol] 4.70 10*3/uL Normal 1.45-7.50 [facility] Comment on above: Order Comment: Speci men Type: BLOOD SPECIMEN Ordering Facility: [facility] Address: [address] [place] [address] Performed By: #### 5 7021-8 #### [facility] CLIA [id number] [address] [place] [address] 41959 Neutrophils/100 WBC (Bld) 60.6 % Normal [facility] Comment on above: Order Comment: Speci men Type: BLOOD SPECIMEN Ordering Facility: [facility] Address: [address] [place] [address] Performed By: #### 5 7021-8 #### [facility] CLIA [id number] [address] [place] [address] Nucleated RBC (Bld) [#/Vol] 10*3/uL Normal <0.01 [facility] Comment on above: Order Comment: Speci men Type: BLOOD SPECIMEN Ordering Facility: [facility] Address: [address] [place] [address] Performed By: #### 5 7021-8 #### [facility] CLIA [id number] [address] [place] [address] 44206 Nucleated RBC/100 WBC (Bld) [Ratio] 0.0 /100 WBC Normal [facility] Comment on above: Order Comment: Speci men Type: BLOOD SPECIMEN Ordering Facility: [facility] Address: [address] [place] [address] Performed By: #### 5 7021-8 #### [facility] CLIA [id number] [address] [place] [address] 20778 Platelet mean volume (Bld) [Entitic vol] 9.6 fL Normal 9.0-12.7 [facility] Comment on above: Order Comment: Speci men Type: BLOOD SPECIMEN Ordering Facility: [facility] Address: [address] [place] [address] Performed By: #### 5 7021-8 #### [facility] CLIA [id number] [address] [place] [address] 81036 Platelets (Bld) [#/Vol] 248 10*3/uL Normal 150-400 [facility] Comment on above: Order Comment: Speci men Type: BLOOD SPECIMEN Ordering Facility: [facility] Address: [address] [place] [address] Performed By: #### 5 7021-8 #### [facility] CLIA [id number] [address] [place] [address] 10628 RBC (Bld) [#/Vol] 5.41 10*6/uL High 3.90-5.20 [facility] Comment on above: Order Comment: Speci men Type: BLOOD SPECIMEN Ordering Facility: [facility] Address: [address] [place] [address] Performed By: #### 5 7021-8 #### [facility] CLIA [id number] [address] [place] [address] 15695 WBC (Bld) [#/Vol] 7.75 10*3/uL Normal 3.70-11.00 [facility] Comment on above: Order Comment: Speci men Type: BLOOD SPECIMEN Ordering Facility: [facility] Address: [address] [place] [address] Performed By: #### 5 7021-8 #### [facility] CLIA [id number] [address] [place] [address] 56494 T3 SerPl-mCncon 02-01-2023 T3 [Mass/Vol] 123 ng/dL Normal 79-165 [facility] Comment on above: Order Comment: Speci men Type: BLOOD SPECIMEN Ordering Facility: [facility] Address: [address] [place] [address] Performed By: #### 3 053-6, 3016-3, 3026-2 #### [facility] CLIA [id number] [address] [place] [address] [place] T4 SerPl-mCncon 02-01-2023 T4 [Mass/Vol] 11.9 ug/dL High 5.5-10.2 [facility] Comment on above: Order Comment: Speci men Type: BLOOD SPECIMEN Ordering Facility: [facility] Address: [address] [place] [address] Performed By: #### 3 053-6, 3016-3, 3026-2 #### [facility] CLIA [id number] [address] [place] [address] [place] THYROGLOBULIN BY MASS SPECTR OMETRYon 02-01-2023 THYROGLOBULIN, LC-MS/MS <0.5 Low 1.3-31.8 [facility] Comment on above: Order Comment: Speci men Type: BLOOD SPECIMEN Ordering Facility: [facility] Address: [address] [place] [address] Result Comment: Results obtained with different test [...] developed and its performance characteristics determined by [employer]. It has not been cleared or approved by the [place] Food and Drug Administration. This test was performed in a CLIA certified laboratory and is intended for clinical purposes. Performed By: [facility] [address] [place] [address] Hair Boiler: Prem Willis MD, PhD CLIA Number: [id number] Performed By: #### T [facility] #### [facility] CLIA [id number] [address] [place] [address] TSH [facility] 02-01-2023 TSH Qn 0.960 m[IU]/L Normal 0.270-4.200 [facility] Comment on above: Order Comment: Speci men Type: BLOOD SPECIMEN Ordering Facility: [facility] Address: [facility] [place] [address] Result Comment: If t he patient is , TSH reference range varies by gestational period: First Trimester (weeks 9-12): 0.180-2.990 mIU/L Second Trimester: 0.110-3.980 mIU/L Third Trimester: 0.480-4.710 mIU/L Suman Graf et al. A Practical Approach for the Verifications and Determination of Site- and Trimester-Specific Reference Intervals for Thyroid Function tests in . Thyroid, 2019:29:3:412-420. Rjaesh Holman, et al. 2017 Guidelines of the [place] [employer] for the Diagnosis and Management of Thyroid Disease during and the . Thyroid, 2017:27:3:315-389. Performed By: #### 3 053-6, 3016-3, 3026-2 #### [facility] CLIA [id number] [address] [place] [address] [place] [facility] PREG QUANT HCGon 08-17-2022 HCG QUANT 1 mIU/mL Normal [facility] Comment on above: Performed By: #### P REGQNT #### [facility] [address] [place] [address] Dr. Prashant Kang HCG RANGE SEE BELOW Normal [facility] Comment on above: Result Comment: 5-50 0.2-1 WEEK 50-500 1-2 WEEKS 100-5,000 2-3 WEEKS 500-10,000 3-4 WEEKS 1,000-50,000 4-5 WEEKS 10,000-100,000 5-6 WEEKS 15,000-200,000 6-8 WEEKS 10,000-100,000 2-3 MONTHS Performed By: #### P REGQNT #### [facility] [address] [place] [address] Dr. Prashant Kang PREG QUANT HCGon 07-04-2022 HCG QUANT <1 Normal [facility] Comment on above: Performed By: #### P REGQNT #### [facility] [address] [place] [address] Dr. Prashant Kang HCG RANGE SEE BELOW Normal [facility] Comment on above: Result Comment: 5-50 0.2-1 WEEK 50-500 1-2 WEEKS 100-5,000 2-3 WEEKS 500-10,000 3-4 WEEKS 1,000-50,000 4-5 WEEKS 10,000-100,000 5-6 WEEKS 15,000-200,000 6-8 WEEKS 10,000-100,000 2-3 MONTHS Performed By: #### P REGQNT #### [facility] [address] [place] [address] Dr. Prashant Kang PREG QUANT HCGon 05-16-2022 HCG QUANT <1 Normal [facility] Comment on above: Performed By: #### P TT, PT #### [facility] [address] [place] [address] Dr. Prashant Kang HCG RANGE SEE BELOW Normal [facility] Comment on above: Result Comment: 5-50 0.2-1 WEEK 50-500 1-2 WEEKS 100-5,000 2-3 WEEKS 500-10,000 3-4 WEEKS 1,000-50,000 4-5 WEEKS 10,000-100,000 5-6 WEEKS 15,000-200,000 6-8 WEEKS 10,000-100,000 2-3 MONTHS Performed By: #### P TT, PT #### [facility] [address] [place] [address] Dr. Prashant Kang PREG QUANT HCGon 05-08-2022 HCG QUANT <1 Normal [facility] Comment on above: Performed By: #### P REGQNT #### [facility] [address] [place] [address] Dr. Prashant Kang HCG RANGE SEE BELOW Normal [facility] Comment on above: Result Comment: 5-50 0.2-1 WEEK 50-500 1-2 WEEKS 100-5,000 2-3 WEEKS 500-10,000 3-4 WEEKS 1,000-50,000 4-5 WEEKS 10,000-100,000 5-6 WEEKS 15,000-200,000 6-8 WEEKS 10,000-100,000 2-3 MONTHS Performed By: #### P REGQNT #### [facility] [address] [place] [address] Dr. Prashant Kang CALCIUMon 03-08-2022 Calcium [Mass/Vol] 8.6 mg/dL Normal 8.5-10.1 [facility] Comment on above: Performed By: #### C A #### [facility] [address] [place] [address] Dr. Prashant Kang CALCIUMon 03-07-2022 Calcium [Mass/Vol] 8.4 mg/dL Critically low 8.5-10.1 [facility] Comment on above: Performed By: #### C A #### [facility] [address] [place] [address] Dr. Prashant Kang PREG HCG QUALon 03-07-2022 , QUAL Negative Normal NEGATIVE [facility] Comment on above: Performed By: #### P REG #### [facility] [address] [place] [address] Dr. Prashant Kang Covid-19 PCR (CVDTBH)on SARS-CoV-2 (COVID-19) RNA DNEEEN+probe Ql (Unsp spec) Not detected Normal NOT DETECTED [facility] Comment on above: Result Comment: This test is not yet approved or cleared by the [place] FDA. When there are no FDA-approved or cleared tests available, and other criteria are met, FDA can make tests available under an emergency access mechanism called an Emergency Use Authorization (EUA). The EUA for this test is supported by the Mechanical Estimator of Health and Human Service's (HHS's) declaration [...] SARS-CoV-2. Performed By: #### C VDTBH #### [facility] [address] [place] [address] Dr. Prashant Kang CALCIUMon 02-24-2022 Calcium [Mass/Vol] 8.8 mg/dL Normal 8.5-10.1 [facility] Comment on above: Performed By: #### P TT, PT #### [facility] [address] [place] [address] Dr. Prashant Kang CBC AUTO DIFFon 02-24-2022 BASO # 0.0 103/ul Normal 0.0-0.1 [facility] Comment on above: Performed By: #### P TT, PT #### [facility] [address] [place] [address] Dr. Prashant Kang Basophils/100 WBC (Bld) 0.3 % Normal 0.2-2.0 [facility] Comment on above: Performed By: #### P TT, PT #### [facility] [address] [place] [address] Dr. Prashant Kang EO # 0.1 103/ul Normal 0.0-0.7 [facility] Comment on above: Performed By: #### P TT, PT #### [facility] [address] [place] [address] Dr. Prashant Kang Eosinophils/100 WBC (Bld) 1.5 % Normal 0.9-7.0 [facility] Comment on above: Performed By: #### P TT, PT #### [facility] [address] [place] [address] Dr. Prashant Kang Erythrocyte distribution width (RBC) [Ratio] 13.8 % Normal 11.0-15.0 [facility] Comment on above: Performed By: #### P TT, PT #### [facility] [address] [place] [address] Dr. Prashant Kang Hematocrit (Bld) [Volume fraction] 45.5 % Normal 36.0-48.0 [facility] Comment on above: Performed By: #### P TT, PT #### [facility] [address] [place] [address] Dr. Prashant Kang Hemoglobin (Bld) [Mass/Vol] 14.6 g/dL Normal 12.0-16.0 [facility] Comment on above: Performed By: #### P TT, PT #### [facility] [address] [place] [address] Dr. Prashant Kang IG # 0.02 10e3/ul Normal 0.00-0.03 [facility] Comment on above: Performed By: #### P TT, PT #### [facility] [address] [place] [address] Dr. Prashant Kang IG % 0.3 % Normal 0.0-0.5 [facility] Comment on above: Performed By: #### P TT, PT #### [facility] [address] [place] [address] Dr. Prashant Kang LYMPH # 1.6 103/ul Normal 1.2-3.8 [facility] Comment on above: Performed By: #### P TT, PT #### [facility] [address] [place] [address] Dr. Prashant Kang Lymphocytes/100 WBC (Bld) 23.5 % Normal 20.5-60.0 [facility] Comment on above: Performed By: #### P TT, PT #### [facility] [address] [place] [address] Dr. Prashant Kang MANUAL DIFF REQ NO Normal [facility] Comment on above: Performed By: #### P TT, PT #### [facility] [address] [place] [address] Dr. Prashant Kang MCH (RBC) [Entitic mass] 26.5 pg Critically low 26.7-34.0 [facility] Comment on above: Performed By: #### P TT, PT #### [facility] [address] [place] [address] Dr. Prashant Kang MCHC (RBC) [Mass/Vol] 32.1 g/dL Normal 29.9-35.2 [facility] Comment on above: Performed By: #### P TT, PT #### [facility] [address] [place] [address] Dr. Prashant Kang MCV (RBC) [Entitic vol] 82.7 fL Normal 81.0-99.0 [facility] Comment on above: Performed By: #### P TT, PT #### [facility] [address] [place] [address] Dr. Prashant Kang MONO # 0.5 103/ul Normal 0.3-0.8 [facility] Comment on above: Performed By: #### P TT, PT #### [facility] [address] [place] [address] Dr. Prashant Kang Monocytes/100 WBC (Bld) 7.5 % Normal 1.7-12.0 [facility] Comment on above: Performed By: #### P TT, PT #### [facility] [address] [place] [address] Dr. Prashant aKng NEUT # 4.6 103/ul Normal 1.4-6.5 [facility] Comment on above: Performed By: #### P TT, PT #### [facility] [address] [place] [address] Dr. Prashant Kang Neutrophils/100 WBC (Bld) 66.9 % Normal 43.0-75.0 [facility] Comment on above: Performed By: #### P TT, PT #### [facility] [address] [place] [address] Dr. Prashant Kang Platelet mean volume (Bld) [Entitic vol] 9.9 fL Normal 9.5-13.5 [facility] Comment on above: Performed By: #### P TT, PT #### [facility] [address] [place] [address] Dr. Prashant Kang PLT 239 103/ul Normal 150-450 [facility] Comment on above: Performed By: #### P TT, PT #### [facility] [address] [place] [address] Dr. Prashant Kang RBC 5.50 106/ul Critically high 4.20-5.40 [facility] Comment on above: Performed By: #### P TT, PT #### [facility] [address] [place] [address] Dr. Prashant Kang WBC 6.8 103/ul Normal 4.0-11.0 [facility] Comment on above: Performed By: #### P TT, PT #### [facility] [address] [place] [address] Dr. Prashant Kang MAGNESIUMon 02-24-2022 Magnesium [Mass/Vol] 2.0 mg/dL Normal 1.8-2.4 [facility] Comment on above: Performed By: #### P TT, PT #### [facility] [address] [place] [address] Dr. Prashant Kang PHOSPHORUSon 02-24-2022 Phosphate [Mass/Vol] 3.3 mg/dL Normal 2.6-4.7 [facility] Comment on above: Performed By: #### P TT, PT #### [facility] [address] [place] [address] Dr. Prashant Kang PROTIMEon 02-24-2022 INR Coag (PPP) [Relative time] 1.01 {INR} Normal [facility] Comment on above: Performed By: #### P TT, PT #### [facility] [address] [address] [address] Prashant Kang INR GUIDELINES SEE BELOW Normal The [facility] Comment on above: Result Comment: SALIMA RED INR: 2.0 - 3.0 CONDITIONS NOT LISTED BELOW 2.5 - 3.5 FOR PROSTHETIC HEART VALVE REPLACEMENT 2.5 - 3.5 RECURRENT THROMBOSIS Performed By: #### P TT, PT #### [facility] [address] [address] [address] Prashant Kang PT Coag (PPP) [Time] 10.9 s Normal 9.0-11.6 [facility] Comment on above: Performed By: #### P TT, PT #### [facility] [address] [place] [address] Dr. Prashant Kang PTTon 02-24-2022 aPTT Coag (Bld) [Time] 28.9 s Normal 22.3-36.2 [facility] Comment on above: Performed By: #### P TT, PT #### [facility] [address] [address] [address] Prashant Kang TSHon 02-24-2022 TSH 1.163 uIU/mL Normal 0.358-3.740 [facility] Comment on above: Performed By: #### P TT, PT #### [facility] [address] [place] [address] Dr. Prashant Kang US THYROID FN ASP BXon 02-09 US THYROID FN ASP BX Begin Addendum #1 COLLECTED DATE/TIME: 02/03/2022 11:36 EDT Final Diagnosis Report for [facility] [place] [place] (A/B) THYROID ISTHMUS NODULE, FINE NEEDLE [...] 2. Pathology results are pending. Normal [facility] NECK [facility] W CONon 2 [...] SHAILESH EMERY Date: 2022-01-20 13:05 Normal [facility] US THYROIDon 01-20-2022 US THYROID EXAMINATION: [...] isthmus nodule. Consider fine-needle aspiration TI-RADS: The [place] [employer] TI-RADS committee's white paper recommendations for thyroid lesions classified as TR4 (moderately suspicious) are listed below: > 1.0 cm. Follow-up ultrasound in 1, 2, 3, and 5 years. > 1.5 cm. FNA. J. Am More Radiol 2017;[id number]. Electronically authenticated by: SHAILESH EMERY Date: 2022-01-20 21:46 Normal [facility] CBC AUTO DIFFon 01-08-2022 BASO # 0.0 103/ul Normal 0.0-0.1 [facility] Comment on above: Performed By: #### P TT, PT #### [facility] [address] [place] [address] Dr. Prashant Kang Basophils/100 WBC (Bld) 0.4 % Normal 0.2-2.0 [facility] Comment on above: Performed By: #### P TT, PT #### [facility] [address] [place] [address] Dr. Prashant Kang EO # 0.2 103/ul Normal 0.0-0.7 [facility] Comment on above: Performed By: #### P TT, PT #### [facility] [address] [place] [address] Dr. Prashant Kang Eosinophils/100 WBC (Bld) 3.4 % Normal 0.9-7.0 [facility] Comment on above: Performed By: #### P TT, PT #### [facility] [address] [place] [address] Dr. Prashant Kang Erythrocyte distribution width (RBC) [Ratio] 14.6 % Normal 11.0-15.0 [facility] Comment on above: Performed By: #### P TT, PT #### [facility] [address] [place] [address] Dr. Prashant Kang Hematocrit (Bld) [Volume fraction] 42.9 % Normal 36.0-48.0 [facility] Comment on above: Performed By: #### P TT, PT #### [facility] [address] [address] [address] Prashant Kang Hemoglobin (Bld) [Mass/Vol] 13.4 g/dL Normal 12.0-16.0 [facility] Comment on above: Performed By: #### P TT, PT #### [facility] [address] [place] [address] Dr. Prashant Kang IG # 0.02 10e3/ul Normal 0.00-0.03 [facility] Comment on above: Performed By: #### P TT, PT #### [facility] [address] [place] [address] Dr. Prashant Kang IG % 0.3 % Normal 0.0-0.5 [facility] Comment on above: Performed By: #### P TT, PT #### [facility] [address] [place] [address] Dr. Prashant Kang LYMPH # 2.0 103/ul Normal 1.2-3.8 [facility] Comment on above: Performed By: #### P TT, PT #### [facility] [address] [place] [address] Dr. Prashant Kang Lymphocytes/100 WBC (Bld) 29.7 % Normal 20.5-60.0 [facility] Comment on above: Performed By: #### P TT, PT #### [facility] [address] [place] [address] Dr. Prashant Kang MANUAL DIFF REQ NO Normal [facility] Comment on above: Performed By: #### P TT, PT #### [facility] [address] [place] [address] Dr. Prashant Kang MCH (RBC) [Entitic mass] 26.3 pg Critically low 26.7-34.0 [facility] Comment on above: Performed By: #### P TT, PT #### [facility] [address] [place] [address] Dr. Prashant Kang MCHC (RBC) [Mass/Vol] 31.2 g/dL Normal 29.9-35.2 [facility] Comment on above: Performed By: #### P TT, PT #### [facility] [address] [place] [address] Dr. Prashant Kang MCV (RBC) [Entitic vol] 84.1 fL Normal 81.0-99.0 [facility] Comment on above: Performed By: #### P TT, PT #### [facility] [address] [place] [address] Dr. Prashant Kang MONO # 0.6 103/ul Normal 0.3-0.8 [facility] Comment on above: Performed By: #### P TT, PT #### [facility] [address] [place] [address] Dr. Prashant Kang Monocytes/100 WBC (Bld) 8.7 % Normal 1.7-12.0 [facility] Comment on above: Performed By: #### P TT, PT #### [facility] [address] [place] [address] Dr. Prashant Kang NEUT # 3.9 103/ul Normal 1.4-6.5 [facility] Comment on above: Performed By: #### P TT, PT #### [facility] [address] [place] [address] Dr. Prashant Kang Neutrophils/100 WBC (Bld) 57.5 % Normal 43.0-75.0 [facility] Comment on above: Performed By: #### P TT, PT #### [facility] [address] [place] [address] Dr. Prashant Kang Platelet mean volume (Bld) [Entitic vol] 9.9 fL Normal 9.5-13.5 [facility] Comment on above: Performed By: #### P TT, PT #### [facility] [address] [place] [address] Dr. Prashant Kang PLT 241 103/ul Normal 150-450 [facility] Comment on above: Performed By: #### P TT, PT #### [facility] [address] [place] [address] Dr. Prashant Kang RBC 5.10 106/ul Normal 4.20-5.40 [facility] Comment on above: Performed By: #### P TT, PT #### [facility] [address] [place] [address] Dr. Prashant Kang WBC 6.8 103/ul Normal 4.0-11.0 [facility] Comment on above: Performed By: #### P TT, PT #### [facility] [address] [place] [address] Dr. Prashant Kang GROUP A STREP CULTUREon 12-29 S. pyogenes Ag Ql (Unsp spec) Culture Observations: NEGATIVE FOR GROUP A STREPTOCOCCUS. Normal [facility] Comment on above: Performed By: #### P TT, PT #### [facility] [address] [place] [address] Dr. Prashant Kang PROF 14(COMP METB)on 022 Albumin [Mass/Vol] 3.6 g/dL Normal 3.4-5.0 [facility] Comment on above: Performed By: #### C MP #### [facility] [address] [place] [address] Dr. Prashant Kang Albumin/Globulin [Mass ratio] 0.8 {ratio} Normal [facility] Comment on above: Performed By: #### C MP #### [facility] [address] [place] [address] Dr. Prashant Kang ALP [Catalytic activity/Vol] 74 U/L Normal 46-116 [facility] Comment on above: Performed By: #### C MP #### [facility] [address] [place] [address] Dr. Prashant Kang ALT [Catalytic activity/Vol] 40 U/L Normal 14-59 [facility] Comment on above: Performed By: #### C MP #### [facility] [address] [place] [address] Dr. Prashant Kang Anion gap [Moles/Vol] 14.0 mmol/L Normal [facility] Comment on above: Performed By: #### C MP #### [facility] [address] [place] [address] Dr. Prashant Kang AST [Catalytic activity/Vol] 31 U/L Normal 15-37 [facility] Comment on above: Performed By: #### C MP #### [facility] [address] [address] [address] Prashant Kang Bilirubin [Mass/Vol] 0.4 mg/dL Normal 0.2-1.0 [facility] Comment on above: Performed By: #### C MP #### [facility] [address] [address] [address] Prashant Kang Calcium [Mass/Vol] 8.8 mg/dL Normal 8.5-10.1 [facility] Comment on above: Performed By: #### C MP #### [facility] [address] [address] [address] Prashant Kang Chloride [Moles/Vol] 105 mmol/L Normal 98-107 [facility] Comment on above: Performed By: #### C MP #### [facility] [address] [place] [address] Dr. Prashant Kang CO2 [Moles/Vol] 26.6 mmol/L Normal 21.0-32.0 [facility] Comment on above: Performed By: #### C MP #### [facility] [address] [place] [address] Dr. Prashant Kang Creatinine [Mass/Vol] 0.80 mg/dL Normal 0.55-1.02 [facility] Comment on above: Performed By: #### C MP #### [facility] [address] [place] [address] Dr. Prashant Kang EGFR-AF GUAMANIAN >60 Normal >=60 [facility] Comment on above: Performed By: #### C MP #### [facility] [address] [place] [address] Dr. Prashant Kang EGFR-NON AF GUAMANIAN >60 Normal >=60 [facility] Comment on above: Performed By: #### C MP #### [facility] [address] [place] [address] Dr. Prashant Kang Globulin (S) [Mass/Vol] 4.3 g/dL Normal [facility] Comment on above: Performed By: #### C MP #### [facility] [address] [place] [address] Dr. Prashant Kang Glucose [Mass/Vol] 101 mg/dL Normal 74-106 [facility] Comment on above: Performed By: #### C MP #### [facility] [address] [address] [address] Prashant Kang Potassium [Moles/Vol] 4.6 mmol/L Normal 3.5-5.1 [facility] Comment on above: Performed By: #### C MP #### [facility] [address] [address] [address] Prashant Kang Protein [Mass/Vol] 7.9 g/dL Normal 6.4-8.2 [facility] Comment on above: Performed By: #### C MP #### [facility] [address] [address] [address] Prashant Kang Sodium [Moles/Vol] 141 mmol/L Normal 136-145 [facility] Comment on above: Performed By: #### C MP #### [facility] [address] [address] [address] Prashant Kang Urea nitrogen [Mass/Vol] 11.0 mg/dL Normal 7.0-18.0 [facility] Comment on above: Performed By: #### C MP #### [facility] [address] [place] [address] Dr. Prashant Kang Urea nitrogen/Creatinine [Mass ratio] 13.8 mg/mg Normal [facility] Comment on above: Performed By: #### C MP #### [facility] [address] [place] [address] Dr. Prashant Kang STREPT SCREENon 01-08-2022 STREP SCREEN A Negative Normal NEGATIVE [facility] Comment on above: Performed By: #### P TT, PT #### [facility] [address] [place] [address] Dr. Prashant Kang XR NECK SOFT TISSUEon [...] MIKE BARNETT Date: 2022-01-08 04:43 Normal [facility] Covid-19 PCR (CVDTB)on SARS-CoV-2 (COVID-19) RNA DENEEN+probe Ql (Unsp spec) Not detected Normal NOT DETECTED [facility] Comment on above: Result Comment: This test is not yet approved or cleared by the [place] FDA. When there are no FDA-approved or cleared tests available, and other criteria are met, FDA can make tests available under an emergency access mechanism called an Emergency Use Authorization (EUA). The EUA for this test is supported by the Mechanical Estimator of Health and Human Service's (HHS's) declaration [...] Performed By: #### P TT, PT #### [facility] [address] [place] [address] Dr. Prashant Kang Vital Signs Date Time Vital Sign Value Performing Clinician Faci lity 02-25-2024 14:08-0400 Body mass index (BMI) [Ratio] 39.87 kg/m2 Kim YAO Work Phone: [facility] 02-25-2024 14:08-0400 Body weight 98.88 kg Kim YAO Work Phone: [facility] 02-25-2024 14:08-0400 Diastolic blood pressure 70 mm[Hg] Kim YAO Work Phone: [facility] 02-25-2024 14:08-0400 Systolic blood pressure 114 mm[Hg] Kim YAO Work Phone: [facility] 02-11-2024 11:10-0400 Body mass index (BMI) [Ratio] 40.2 kg/m2 Acosta Shania DO Work Phone: [facility] 02-11-2024 11:10-0400 Body weight 99.7 kg Acosta Shania DO Work Phone: [facility] 02-11-2024 11:10-0400 Diastolic blood pressure 64 mm[Hg] Acosta Shania DO Work Phone: [facility] 02-11-2024 11:10-0400 Systolic blood pressure 112 mm[Hg] Acosta Shania DO Work Phone: [facility] 06-12-2023 13:54-0500 Body mass index (BMI) [Ratio] 40.6 kg/m2 Acosta Shania DO Work Phone: [facility] 06-12-2023 13:54-0500 Body weight 100.7 kg Acosta Shania DO Work Phone: [facility] 06-12-2023 13:54-0500 Diastolic blood pressure 74 mm[Hg] Acosta Shania DO Work Phone: [facility] 06-12-2023 13:54-0500 Systolic blood pressure 118 mm[Hg] Acosta Shania DO Work Phone: [facility] 05-04-2022 09:40-0500 Body temperature 97.2 [degF] JONNY Garcia MD Work Phone: [facility] 05-04-2022 09:40-0500 Body weight 88.81 kg JONNY Garcia MD Work Phone: [facility] 05-04-2022 09:40-0500 Diastolic blood pressure 73 mm[Hg] JONNY Garcia MD Work Phone: [facility] 01-05-2023 09:40-0500 Heart rate 67 /min JONNY Garcia MD Work Phone: [facility] 05-04-2022 09:40-0500 Respiratory rate 16 /min JONNY Garcia MD Work Phone: [facility] 05-04-2022 09:40-0500 SaO2% (BldA) [Mass fraction] 100 % JONNY Garcia MD Work Phone: [facility] 05-04-2022 09:40-0500 Systolic blood pressure 113 mm[Hg] JONNY Garcia MD Work Phone: [facility] Encounters Encounter Date Encounter Type Care Provider Facility Start: 02-25-2024 End: 02-25-2024 Bamboo flowsheet Kim YAO Work Phone: [facility] Start: 02-25-2024 End: 02-25-2024 Bamboo flowsheet Kim YAO Work Phone: [facility] Start: 02-25-2024 End: 02-25-2024 Office outpatient visit 15 minutes Kim YAO Work Phone: [facility] Comment on above: Third trimester preg yogesh; 31 weeks gestation of ; Thyroid disease (CMS/HCC) Start: 02-11-2024 End: 02-11-2024 Bamboo flowsheet Acosta Shania DO Work Phone: [facility] Start: 02-11-2024 End: 02-11-2024 Bamboo [...] Work Phone: [facility] Unsolicited Start: 01-23-2024 End: 01-24-2024 Telephone encounter Arslan Garcia MD Work Phone: [facility] Comment on above: Patient Question Start: 01-14-2024 End: 01-14-2024 ambulatory ACOSTA SHANIA Not Available Start: 01-11-2024 End: 01-11-2024 ambulatory ACOSTA R SHANIA [facility] Start: 12-17-2023 End: 12-17-2023 ambulatory ACOSTA [...] 15 minutes Acosta Shania DO Work Phone: [facility] Comment on above: Missed menses; Amenorrhea Start: 06-12-2023 End: 06-12-2023 ambulatory ACOSTA JAUREGUI Not Available Start: 02-14-2023 Telephone encounter [facility] Comment on above: Appointment Confirma tion Start: 02-08-2023 End: 02-08-2023 ambulatory SARA MEDELLIN Facility:[facility] Start: 02-01-2023 End: 02-01-2023 ambulatory SARA MEDELLIN Facility:[facility] Start: 11-09-2022 Telephone encounter [facility]sl[facility] Comment on above: Appointment Confirma tion Start: 09-01-[address] SARA MEDELLIN . Facili ty:[facility] Start: 08-23-2022 End: 08-23-2022 ambulatory DHRUV MCDONALD Facility: Start: 08-17-2022 End: 08-27-[address] ACOSTA JAUREGUI . Facility:[facility] Start: 08-06-2022 End: 08-06-2022 ambulatory DHRUV MCDONALD Facility:[facility] Start: 07-17-2022 Telephone encounter Arslan Garcia MD Work Phone: Radiation Oncology Comment on above: Phone Visit Start: 07-04-2022 End: 07-28-[address] ACOSTA JAUREGUI . Facility: Start: 05-08-2022 End: 05-30-[address] ACOSTA JAUREGUI . Facility:[facility] Start: 05-04-2022 End: 05-04-2022 Patient encounter procedure Arslan Garcia MD Work Phone: Radiation Oncology Comment on above: Thyroid cancer (HCC) (Primary Dx) Start: 04-25-2022 Telephone encounter [facility]slan Garcia [facility] Comment on above: Missed Appointment Start: 04-20-2022 Patient encounter procedure [facility] Provider [facility] Department Start: 04-11-2022 End: 04-11-2022 Patient encounter procedure Lab/[place] Work Phone: Radiation Oncology Comment on above: Thyroid cancer (HCC) (Primary Dx) Start: 03-09-2022 Encounter for preprocedural laboratory examination DR CHARLIE EASTMAN [facility] Start: 03-07-2022 End: 03-08-[address] CHARLIE [...] STIM HORMONE Acosta Shania DO Work Phone: Start: 11-13-2023 Cytp cerv/vag auto t hin layer prep mnl screen Acosta Shania DO Work Phone: Plan of Treatment Date Care Activity Detail Author Start: 03-10-2024 End: 03-10-2024 Patient encounter procedure 03/10/2024 1:00 PM EST Routine [facility] [address] [place] [address] Acosta Jauregui, DO [address] [place] [address] Dr Jim Cren[place] [address] [facility] Start: 02-25-2024 End: 02-24-2025 US biophysical profile w non stress test US biophysical profile w non stress test Imaging Routine Thyroid disease (CMS/HCC) Expected: 02/25/2024 (Approximate), Expires: 02/24/2025 [facility] Work Phone: Comment on above: Expected: 02/25/2024 (Approximate), Expires: 02/24/2025 Start: 02-25-2024 End: 02-25-2024 Patient encounter procedure [facility] Comment on above: Arrived Start: 02-11-2024 End: 02-10-2025 US biophysical profile w non stress test US biophysical profile w non stress test Imaging Routine Thyroid disease (CMS/HCC) 29 weeks gestation of History of placental abruption Expected: 02/11/2024 (Approximate), Expires: 02/10/2025 [facility] Work Phone: Comment on above: Expected: 02/11/2024 (Approximate), Expires: 02/10/2025 Start: 02-11-2024 End: 02-10-2025 US for US OB SCAN FOR GROWTH Imaging Routine Thyroid disease (CMS/HCC) 29 weeks gestation of History of placental abruption Expected: 02/11/2024 (Approximate), Expires: 02/10/2025 [facility] Comment on above: Expected: 02/11/2024 (Approximate), Expires: 02/10/2025 Start: 02-11-2024 End: 02-11-2024 Patient encounter procedure [facility] Comment on above: Arrived Start: 12-30-2023 Covid-19 Vaccine ( season) Covid-19 Vaccine ( season) [facility] Start: 12-30-2023 Influenza vaccination C [facility] Start: 08-15-2023 End: 11-14-2023 Thyroglobulin and Thyrogobulin Ab panel - Serum or Plasma THYROGLOBULIN, SERUM WITH REFLEX TO IA OR LC-MS/MS Lab Routine Thyroid cancer (HCC) Expected: 08/15/2023, Expires: 11/14/2023 [facility] Work Phone: Comment on above: Expected: 08/15/2023 , Expires: 11/14/2023 Start: 08-15-2023 End: 11-14-2023 Thyrotropin [Units/volume] in Serum or Plasma THYROID STIMULATING HORMONE Lab Routine Thyroid cancer (HCC) Expected: 08/15/2023, Expires: 11/14/2023 [facility] Work Phone: Comment on above: Expected: 08/15/2023 , Expires: 11/14/2023 Start: 08-15-2023 End: 11-14-2023 Thyroxine (T4) [Mass/volume] in Serum or Plasma T4/THYROXINE Lab Routine Thyroid cancer (HCC) Expected: 08/15/2023, Expires: 11/14/2023 [facility] Work Phone: Comment on above: Expected: 08/15/2023 , Expires: 11/14/2023 Start: 06-26-2023 End: 06-26-2023 Professional / ancillary services management 06/26/2023 1:00 PM EST Ancillary Procedure [facility] [address] [place] [address] [facility] Start: 06-12-2023 End: 06-12-2024 US for US PELVIS-TRANSVAG IF INDICATED Imaging Routine Amenorrhea Expected: 06/12/2023 (Approximate), Expires: 06/12/2024 [facility] Comment on above: Expected: 06/12/2023 (Approximate), Expires: 06/12/2024 Start: 04-30-2023 Behavioral Health Screening Behavioral Health Screening [facility] Start: 04-30-2023 Depression Assessment Depression Ass essment [facility] Start: 12-29-2022 Covid-19 Vaccine () Covid-19 Vaccine () [facility] Start: 12-29-2022 Influenza vaccination C [facility] Start: 07-02-2022 End: 09-01-2022 THYROGLOBULIN BY MASS SPECTROMETRY THYROGLOBULIN BY MASS SPECTROMETRY Lab Routine Thyroid cancer (HCC) Expected: 07/02/2022, Expires: 09/01/2022 [facility] Work Phone: Comment on above: Expected: 07/02/2022 , Expires: 09/01/2022 Start: 07-02-2022 End: 09-01-2022 Thyrotropin [Units/volume] in Serum or Plasma TSH BLD Lab Routine Thyroid cancer (HCC) Expected: 07/02/2022, Expires: 09/01/2022 [facility] Work Phone: Comment on above: Expected: 07/02/2022 , Expires: 09/01/2022 Start: 07-02-2022 End: 09-01-2022 Thyroxine (T4) [Mass/volume] in Serum or Plasma T4/THYROXINE BLOOD Lab Routine Thyroid cancer (HCC) Expected: 07/02/2022, Expires: 09/01/2022 [facility] Work Phone: Comment on above: Expected: 07/02/2022 , Expires: 09/01/2022 Start: 04-30-2022 DEPRESSION ASSESSMENT DEPRESSION ASS [facility] Start: 2022 HPV TESTING HPV TESTING [facility] Start: 2022 Screening for malign ant neoplasm of cervix HPV Testing [facility] Start: 12-29-2021 Influenza vaccination INFLUENZA (#1) [facility] Start: 04-30-2021 DEPRESSION ASSESSMENT DEPRESSION ASS [facility] Start: 2013 PAP TESTING PAP TESTING [facility] Start: 2013 Screening for malign ant neoplasm of cervix [facility] Start: 2011 Hepatitis B Vaccine (1 of 3 - 19+ 3-dose series) Hepatitis B Vaccine (1 of 3 - 19+ 3-dose series) [facility] Start: 2011 Urine microalbumin profile [facility] Start: 2010 Anxiety Screening Anxiety Screening [facility] Start: 2010 Depression Screening Depression Scre ening [facility] Start: 2010 HEPATITIS C SCREENING HEPATITIS C [facility] Start: 2010 Hepatitis C screening Hepatitis C Sc delfina [facility] Start: 2010 HIV SCREENING HIV SCREEN[facility] Start: 2010 HIV screening HIV Screening [facility] Start: 1998 PNEUMOCOCCAL (1 - PCV) PNEUMOCOCCAL (1 - PCV) [facility] Start: 1998 Pneumococcal vaccination [facility] Start: 1992 COVID-19 VACCINE (#1) COVID-19 VACCI NE (#1) [facility] Start: 1992 HEPATITIS B (1 of 3 - 3-dose series) HEPATITIS B (1 of 3 - 3-dose series) [facility] Start: 1992 Hepatitis B Vaccine (1 of 3 - 3-dose series) Hepatitis B Vaccine (1 of 3 - 3-dose series) [facility] CBC W Auto Different ial panel - Blood CBC and differential Lab Routine Amenorrhea Ordered: 06/12/2023 [facility] Comment on above: Ordered: 06/12/2023 hCG, quantitative, hCG, quantitative, Lab Routine Amenorrhea Ordered: 06/12/2023 [facility] Comment on above: Ordered: 06/12/2023 Hemoglobin A1c measurement Hemoglobin A1c Lab Routine Amenorrhea Ordered: 06/12/2023 [facility] Comment on above: Ordered: 06/12/2023 Prolactin Prolactin Lab Ro utine Amenorrhea Ordered: 06/12/2023 [facility] Comment on above: Ordered: 06/12/2023 Thyrotropin [Units/volume] in Serum or Plasma TSH Lab Routine Amenorrhea Ordered: 06/12/2023 [facility] Work Phone: Comment on above: Ordered: 06/12/2023 [facility] Payers Date Payer Category Payer Medicaid [id number] 2020 Medicaid (Managed Care) [facility] MEDICAID [id number] 1992 Unknown [id number] 2.16.840.1.452760.3.579.2. 593 1992 Unknown [id number] 2.16.840.1.489119.3.579.2. 593 1992 Unknown [id number] 2.16.840.1.785152.3.579.2. 593 1992 Unknown [id number] 2.16.840.1.204191.3.579.2. 593 1992 Unknown [id number] 2.16.840.1.926103.3.579.2. 593 1992 Unknown [id number] 2.16.840.1.316476.3.579.2. 593 1992 Unknown [id number] 2.16.840.1.185051.3.579.2. 593 1992 Unknown [id number] 2.16.840.1.069628.3.579.2. 593 1992 Unknown [id number] 2.16.840.1.566153.3.579.2. 593 1992 Unknown [id number] 2.16.840.1.915541.3.579.2. 593 1992 Unknown [id number] 2.16.840.1.548410.3.579.2. 593 1992 Unknown [id number] 2.16.840.1.478884.3.579.2. 593 1992 Unknown [id number] 2.16.840.1.444161.3.579.2. 593 1992 Unknown [id number] 2.16.840.1.149400.3.579.2. 593 1992 Unknown [id number] 2.16.840.1.037966.3.579.2. 593 1992 Unknown [id number] 2.16.840.1.825014.3.579.2. 1286 1992 Unknown [id number] 2.16.840.1.966703.3.579.2. 1286 1992 Unknown [id number] 2.16.840.1.273525.3.579.2. 1259 1992 Unknown [id number] 2.16.840.1.698237.3.579.2. 1259 1992 Unknown [id number] 2.16.840.1.490282.3.579.2. 1259 1992 Unknown [id number] 2.16.840.1.315199.3.579.2. 1259 1992 Unknown [id number] 2.16.840.1.990802.3.579.2. 1259 1992 Unknown [id number] 2.16.840.1.928360.3.579.2. 9 1992 Unknown [id number] 2.16.840.1.694195.3.579.2. 1259 1959 Unknown [id number] Social History Date Type Detail Facility Start: 04-11-2022 End: 09-23-2022 Tobacco smoking status KYIS Smokes tobacco daily [facility] History of tobacco use Cigarette Smoker C [facility] Start: 04-11-2022 End: 09-14-2023 Cigarettes smoked current (pack per day) - Reported 1 [facility] Start: 04-11-2022 End: 09-23-2022 Tobacco use and exposure Smokeless tobacco non-user [facility] Start: 04-11-2022 End: 02-25-2024 Alcohol intake Current drinker of alcohol (finding) [facility] Start: 04-11-2022 Alcohol Comment socially [facility] Start: 1990 Sex Assigned At Not on file C [facility] Start: 05-04-2022 End: 09-14-2023 Tobacco use panel [facility] Adult Depression Screening Assessment 0 [facility] Start: 10-03-2022 Alcohol Comment caffeine intak e: 1-2 cups per day [facility] Start: 1990 Sex Assigned At Female [facility] Start: 10-04-2022 Gender identity Identifies as female gender (finding) [facility] Start: 08-06-2023 [facility] Clinical Notes 03-07-2022 to 02-25-2024 MAXIMILIAN Lombardo - 02/25/2024 1:50 PM EDTSjaclyn Rader LPN - 02/11/2024 10:50 AM EDTTelephone Encounter - Irais Turpin LPN - 01/24/2024 3:36 PM Arslan Marr MD - 10/24/2023 3:57 PM EDT Note Date & Type Note Facility 02-25-2024 History of Present illness Narrative Reason for [...] Date Noted Papillary thyroid carcinoma (CMS/HCC) 09/23/2022 Thyroid disease (CMS/HCC) 09/23/2022 Bilateral tinnitus 10/04/2022 Asymmetric SNHL (sensorineural hearing loss) 12/13/2022 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 29 weeks gestation of 02/11/2024 Non compliance w medication regimen 02/11/2024 History of placental abruption 02/11/2024 Resolved Ambulatory Problems Diagnosis Date Noted Acid reflux 09/23/2022 Amenorrhea 09/23/2022 Lesion of palate 09/23/2022 depression (CMS/HCC) 09/23/2022 Vaginal delivery 09/23/2022 Past Medical History: Diagnosis Date Chronic maxillary sinusitis Diarrhea Ear problems Family planning Fatigue Fibroadenoma of breast, right Foreign body sensation in throat History of miscarriage LPRD (laryngopharyngeal reflux disease) Obesity Papilloma of palate PCOS (polycystic ovarian syndrome) Thyroid cancer (CMS/HCC) Thyroid mass (CMS/HCC) 09/23/2022 Thyroid nodule (CMS/HCC) HISTORY PAST MEDICAL HISTORY [...] Maternal Grandmother Lisa Heart failure Maternal Grandfather [facility] SURGICAL HISTORY Past Surgical History: Procedure Laterality Date CHOLECYSTECTOMY FNA BIOPSY INCLUDING ULTRASOUND GUIDANCE EA ADD LESION 02/03/2022 thyroid LAPAROSCOPY ABDOMEN DIAGNOSTIC THYROID SURGERY REVIEW OF SYSTEMS Review of Systems: Review of Systems Constitutional: Negative. HENT: Negative. Eyes: Negative. Respiratory: Negative. Cardiovascular: Negative. Gastrointestinal: Negative. Genitourinary: Negative. Musculoskeletal: Negative. Skin: Negative. Neurological: Negative. All other systems reviewed and are negative. Hematological: Negative. Endocrine: Negative. Allergic/Immunologic: Negative. OBJECTIVE Objective: Physical Exam Constitutional: Appearance: Normal [...] reviewed. Vitals: Estimated body mass index is 39.87 kg/m as calculated from the following: Height as of 01/03/23: 5' 2 . Weight as of this encounter: 218 lb. BP: 114/70 Patient's last menstrual period was 06/11/2023. ASSESSMENT & PLAN ICD-10-CM 1. Third trimester Z34.93 CANCELED: POCT urinalysis dipstick manually resulted 2. 31 weeks gestation of Z3A.31 3. Thyroid disease (CMS/HCC) E07.9 US biophysical profile w non stress test Patient scheduled to start nst and bpp tomorrow, she will have repeat tsh as well. Patient previous draw is 28.5 on 200mcg of levothyroxine, we will titrate as needed with next draw Return OB: Patient presents today for a routine obstetrics appointment. Patient is currently 31w0d . Patient states she is doing well but has complaints of being tired due to current . Patient has verbalizes frequent movement. labor precautions was discussed/given and patient was instructed to perform kick counts three times a day. Orders Placed This Encounter Procedures US biophysical profile w non stress test Follow Up: Patient is to return to office in 2 week for routine OB appointment. Documented by MAXIMILIAN Lombardo on behalf of: MAXIMILIAN Lombardo documented in this encounter [facility] 02-11-2024 History of Present illness Narrative Reason [...] nursing note reviewed. Exam conducted with a clearing distribution clerk present. Vitals: Estimated body mass index is [...] Sylvia Rader LPN on behalf of: Acosta Shania, DO documented in this encounter [facility] 01-24-2024 Telephone encounter Note I notified Amanda of Dr. Garcia's response. She will call after she delivers in March 2024 to scheduled follow up. Irais Turpin RN [facility] 01-24-2024 Miscellaneous Notes I notified Amanda of Dr. Garcia's response. She will call after she delivers in March 2024 to scheduled follow up. Irais Turpin RN Amanda called stating she is currently and is being followed very closely by [facility] in [place] and her local BOX ATT[facility]ER. She states her high risk is d/t [...] Irais Turpin RN documented in this encounter [facility] 01-23-2024 Telephone encounter Note Amanda called stating she is currently and is being followed very closely by [facility] in [place] and her local BOX ATT[employer]ER. She states her high risk is d/t [...] possible lab work? Thanks Irais Turpin RN [facility] 11-13-[address] Christine office received ref and they will be calling patient to schedule appointment. Records faxed to Dr. Arteaga. Lawanda please send records to QRcaoheet in your box Images from the original note were not included. Spoke to pt. She would like to see endocrinology in [place]. Pt's OB did adjust synthroid recently and has been monitoring labs. TREASURE- please sign pended order. PSS- please arrange visit when order is signed. KAREN Peters Tiffany Weyer, Angela, RN Previous Messages ----- Message ----- From: Arslan Garcia MD Sent: 11/02/2023 12:08 PM EDT To: Obi Gonzalez [facility] Given what sounds like patient is in first trimester and ongoing concerns of breast-feeding recommend she follow-up with endocrinology. documented in this encounter [facility] 11-13-[address] Christine office received ref and they will be calling patient to schedule appointment. [facility] 11-12-2023 Telephone encounter Note Records faxed to Dr. Arteaga. [facility] 11-12-2023 Telephone encounter Note Lawanda boswell send records to She facesheet in your box [facility] 11-12-2023 Telephone encounter Note Images from the original note were not included. Spoke to pt. She would like to see endocrinology in [place]. Pt's OB did adjust synthroid recently and has been monitoring labs. TREASURE- please sign pended order. PSS- please arrange visit when order is signed. KAREN Peters, Danna Mcdowell RN Previous Messages ----- Message ----- From: Arslan Garcia MD Sent: 11/02/2023 12:08 PM EDT To: Obi Dunlap; [facility] Given what sounds like patient is in first trimester and ongoing concerns of breast-feeding recommend she follow-up with endocrinology. [facility] 10-24-2023 Note HNO ID: [id number] Author: Arslan GARCIA MD Service: ? Author Type: Physician Type: Progress Notes Filed: 11/02/2023 12:08 Note Text: Unable to reach patient. [facility] 10-24-2023 History of Present illness Narrative Unable to reach patient. documented in this encounter [facility] 08-14-2023 Miscellaneous Notes TREASURE- please sign [...] Danna Pitts RN documented in this encounter [facility] 07-19-2023 Miscellaneous Notes Pt called to request labs sent to [facility]. Faxed to central scheduling. Edna Sal RN documented in this encounter [facility] 06-12-2023 History of Present illness Narrative [...] Acosta Jauregui DO documented in this encounter [facility] 02-14-2023 Miscellaneous Notes Images from the original note were not included. Patient is scheduled for appointments Arslan Garcia MD [facility] Govind Wade; Obi Genao 4 months with labs. Orders have been placed in epic. documented in this encounter [facility] 02-08-2023 Note HNO ID: [id number] Author: Arslan Garcia MD Service: ? Author [...] Time Spent: 6 minutes Arslan Garcia MD [facility] 11-09-2022 Miscellaneous Notes Images from the original note were not included. Patient is called and scheduled. Arslan Garcia MD [facility] Nurse [place]; Obi Genao 8 weeks with labs, orders placed, thank you documented in this encounter [facility] 07-17-2022 Miscellaneous Notes Appointment has been changed to phone appt. Tj Funez Pt called in requesting to be switched to a phone visit tomorrow. Her kids are on spring break and a couple of them are sick. Labs have been done and resulted. PSS- please change to phone visit for tomorrow. Danna Pitts RN documented in this encounter [facility] 05-04-2022 History of Present illness Narrative Radiation Oncology - FollowupNote PATIENT NAME: Amanda Cortez PATIENT : 1990 DIAGNOSIS: Thyroid cancer, classic papillary thyroid carcinoma, status post total thyroidectomy and right neck exploration on 03/07/2022, stage I [id number]. HPI: Patient returns after further work-up and [...] and right neck exploration on 03/07/2022, stage [id number]. Patient does have significant thyroglobulin antibody however [...] for this encounter. documented in this encounter [facility] 04-25-2022 Miscellaneous Notes Patient had been rescheduled. Tj Funez Images from the original note were not included. Called patient to reschedule, LMOV. Tj Garcia MD [facility]; Tj Funez Unable to reach please reschedule documented in this encounter [facility] 04-11-2022 Nurse Note Amanda Cortez presents in office today for: Lab Draw during Office Visit . Ordering Provider: Felipe Garcia M.D. Test (s) ordered: TG Method for obtaining blood: Phlebotomy was performed, accessing right antecubital vein. Needle removed intact. Dressing secured. Patient denies discomfort, dizziness, light-headedness or weakness and left the department without assist. Danna Pitts RN documented in this encounter [facility] 03-07-2022 Note OPERATIVE NOTE OPERATION DATE: [...] the recovery room in good condition. [facility] Evaluation note Diagnosis Thyroid cancer (HCC)- Primary Malignant neoplasm of thyroid gland [facility] Thyroid [facility] (HCC)- Primary Malignant neoplasm of thyroid gland [facility] Diagnosis Missed menses Amenorrhea Absence of menstruation [facility]* Diagnosis Thyroid cancer (HCC)- Primary Malignant neoplasm of thyroid gland [facility] Diagnosis Thyroid cancer (HCC)- Primary Malignant neoplasm of thyroid gland [facility] Thyroid cancer (HCC)- Primary Malignant neoplasm of thyroid gland [facility] Diagnosis Third trimester state, incidental Thyroid disease (CMS/HCC) Unspecified disorder of thyroid 29 weeks gestation of History of placental abruption Non compliance w medication regimen documented in this encounter [facility]* Diagnosis Third trimester state, incidental 31 weeks gestation of Thyroid disease (CMS/HCC) Unspecified disorder of thyroid documented in this encounter [facility] Summary Purpose Family History No Family [...] (HCC) Procedures CONSULT TO ENDOCRINOLOGY OFFICE/OUTPATIENT [facility] 60 MINUTES Arslan Garcia MD [address] [place] [address] [place] [address] Referral ID Status Reason Start Date Expiration Date Visits Requested Visits Authorized [id number] Authorized PCP Requested Referral 11/12/2023 11/11/2024 1 1 Additional Source Comments Source Comments (unrecognize d section and content) In the event this informatio n is protected by the Federal Confidentiality of Alcohol and Drug Abuse Patient Records regulations: The Federal rules restrict any use of the information to criminally investigate or prosecute any alcohol or drug abuse patient.[facility] the event this information is protected by the Federal Confidentiality of Alcohol and Drug Abuse Patient Records regulations: The Federal rules restrict any use of the information to criminally investigate or prosecute any alcohol or drug abuse patient.[facility] the event this information is protected by the Federal Confidentiality of Alcohol and Drug Abuse Patient Records regulations: The Federal rules restrict any use of the information to criminally investigate or prosecute any alcohol or drug abuse patient.[facility] the event this information is protected by the Federal Confidentiality of Alcohol and Drug Abuse Patient Records regulations: The Federal rules restrict any use of the information to criminally investigate or prosecute any alcohol or drug abuse patient.[facility] the event this information is protected by the Federal Confidentiality of Alcohol and Drug Abuse Patient Records regulations: The Federal rules restrict any use of the information to criminally investigate or prosecute any alcohol or drug abuse patient.[facility] the event this information is protected by the Federal Confidentiality of Alcohol and Drug Abuse Patient Records regulations: The Federal rules restrict any use of the information to criminally investigate or prosecute any alcohol or drug abuse patient.[facility] the event this information is protected by the Federal Confidentiality of Alcohol and Drug Abuse Patient Records regulations: The Federal rules restrict any use of the information to criminally investigate or prosecute any alcohol or drug abuse patient.[facility] the event this information is protected by the Federal Confidentiality of Alcohol and Drug Abuse Patient Records regulations: The Federal rules restrict any use of the information to criminally investigate or prosecute any alcohol or drug abuse patient.[facility] the event this information is protected by the Federal Confidentiality of Alcohol and Drug Abuse Patient Records regulations: The Federal rules restrict any use of the information to criminally investigate or prosecute any alcohol or drug abuse patient.[facility] the event this information is protected by the Federal Confidentiality of Alcohol and Drug Abuse Patient Records regulations: The Federal rules restrict any use of the information to criminally investigate or prosecute any alcohol or drug abuse patient.[facility] the event this information is protected by the Federal Confidentiality of Alcohol and Drug Abuse Patient Records regulations: The Federal rules restrict any use of the information to criminally investigate or prosecute any alcohol or drug abuse patient.[facility] the event this information is protected by the Federal Confidentiality of Alcohol and Drug Abuse Patient Records regulations: The Federal rules restrict any use of the information to criminally investigate or prosecute any alcohol or drug abuse patient.[facility] Reason for Visit (unrecogniz ed section [...] Care Teams (unrecognized sec tion and content) Counter Checker Relationship Specialty Start Date End Date Sara Medellin MD [address] [place] [address] PCP - General Family Medicine 04/11/22 Counter Checker Relationship Specialty Start Date End Date Sara Medellin MD [address] [place] [address] PCP - General Family Medicine 04/11/22 Counter Checker Relationship Specialty Start Date End Date Sara Medellin MD [address] [place] [address] PCP - General Family Medicine 04/11/22 Counter Checker Relationship Specialty Start Date End Date Sara Medellin MD PCP - General Family Medicine 04/11/22 Counter Checker Relationship Specialty Start Date End Date Sara Medellin MD PCP - General Family Medicine 04/11/22 Counter Checker Relationship Specialty Start Date End Date Sara Medellin MD [address] [place] [address] PCP - General Family Medicine 10/03/22 Counter Checker Relationship Specialty Start Date End Date Sara Medellin MD PCP - General Family Medicine 04/11/22 Counter Checker Relationship Specialty Start Date End Date Sara Medellin MD PCP - General Family Medicine 04/11/22 Counter Checker Relationship Specialty Start Date End Date Sara Medellin MD PCP - General Family Medicine 04/11/22 Counter Checker Relationship Specialty Start Date End Date Sara Medellin MD [address] [place] [address] PCP - General Family Medicine 10/03/22 Counter Checker Relationship Specialty Start Date End Date Sara Medellin MD [address] [place] [address] PCP - General Family Medicine 10/03/22 Counter Checker Relationship Specialty Start Date End Date Sara Medellin MD [address] [place] [address] PCP - General Family Medicine 10/03/22 INFORMATION SOURCE (unrecogn ized section and content) DATE CREATED AUTHOR 09/02/2022 [facility] DATE CREATED AUTHOR AUTHOR'S ORGANIZ ATION 01/11/2024 [facility] DATE CREATED AUTHOR AUTHOR'S ORGANIZ ATION 01/13/2024 [facility] DATE CREATED AUTHOR AUTHOR'S ORGANIZ ATION 02/12/2024 [facility] EPIC FOR RECORDS PERTAINING TO PATIENTS [...] BE BASED ON THE PRIMARY CLINICAL RECORDS. [employer] [facility]. provides no warranty or guarantee of the accuracy or completeness of information in this document.
--- NOTE | 2024-02-26 13:06 | US_ITS ---
[address] [address] Patient Name: LITO RAMIREZ MRN: [id number] date: 1990 Sex: F Assigned Patient Location: US Current Patient Location: Accession/Order Number: [id number] Exam Date: 02/26/2024 13:10 Report Date: 02/27/2024 05:12 At the request of: MARTINE LESTER Procedure: US OB BPP w non-stress EXAMINATION: US OB BPP w non-stress HISTORY:Thyroid disease E07.9 COMPARISON: No relevant comparison available. TECHNIQUE: Ultrasound biophysical profile was performed in the radiology department. BREATHING MOVEMENTS: 2 GROSS BODY MOVEMENTS: 2 TONE: 2 QUALITATIVE AMNIOTIC FLUID VOLUME: 2 PRESENTATION: TRANSVERSE HEART RATE: 138.46 bpm AMNIOTIC FLUID VOLUME: 22.07 cm GESTATIONAL AGE: 31 weeks 1 day US/US OB BPP w non-stress IMPRESSION: Total biophysical profile score: 8 Electronically authenticated by: AMADOR GUERRERO Date: 02/27/2024 05:12
== END 2024-02-26 14:30 | disposition home or self-care (01) ==
LOC: US 07:13 → FBC 13:48
PROVIDERS: PCP Family Medicine; Visit Provider Obstetrics & Gynecology
DX: E07.9 Disorder of thyroid, unspecified (principal); Z87.59 Personal history of other complications of pregnancy, childbirth and the puerperium; Z3A.31 31 weeks gestation of pregnancy
CPT/HCPCS: 76818

== ENCOUNTER 2024-03-07 07:10 | Outpatient (OUT) | payer OTHER, SELFPAY ==
--- OUTSIDE RECORDS SUMMARY | 2024-03-07 07:13 | XMS_ITS | CCD ---
Author Organization 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 Name Role Phone Sara Medellin MD Primary Care Provider [phone] RAIZA, DR GUERRA Consulting Unavailable THEO ., [...] Unavailable HOY ., DR RUIZ Admitting Unavailable ALAMO, DR SHAILESH Clark Consulting Unavailable TIMMIS, DR [...] Unavailable Sara Medellin MD Primary Care Provider [phone] Sara Medellin MD Primary Care Provider [phone] Sara Medellin MD Primary Care Provider [phone] SARA MEDELLIN Primary Care Unavailable Arslan GARCIA Attending Unavailable SARA MEDELLIN Primary Care Unavailable Arslan GARCIA Attending Unavailable SARA MEDELLIN Primary Care Unavailable YFN MICHELLE Attending Unavailable SHANIA, ACOSTA R Referring Unavailable SARA MEDELLIN Primary Care Unavailable SHANIA, ACOSTA R Referring Unavailable SARA MEDELLIN M Primary Care Unavailable SHANIA, ACOSTA Attending Unavailable SHANIA, ACOSTA Attending Unavailable SHANIA, ACOSTA Attending Unavailable SHANIA, ACOSTA Attending Unavailable SHANIA, ACOSTA Attending Unavailable SHANIA, ACOSTA Attending Unavailable KIM MCKEON Attending Unavailable Sara Medellin MD Primary Care Provider [phone] Allergies Allergy Classification Reported Allergen(s) Allergy Type Date of Onset Reaction(s) Facility (20 sources) Cefaclor; Translations: [CEFACLOR] Drug Allergy 04-11-20 Hives, Shortness of Breath, Anaphylaxis [facility] (13 sources) Penicillins; Translations: [PENICILLINS] Drug Allergy 04-11-20 22 Hives, Shortness of Breath [facility] (2 sources) Cefaclor Drug Allergy 05-10-19 14 [facility] (2 sources) Penicillins Drug allergy (disorder) 05-10-19 14 [facility] (10 sources) Penicillin G sodium; Translations: [PENICILLIN G SODIUM] Allergy to substance 09-24-19 23 Anaphylaxis [facility] (9 sources) Cephalosporins (Antibiotic); Translations: [CEPHALOSPORINS] Propensity to adverse reactions to drug (disorder) 12-17-19 24 Anaphylaxis [facility] (9 sources) Penicillin; Translations: [PENICILLIN G] Drug Allergy 12-17-19 Anaphylaxis [facility] (1 source) Penicillin G Drug Allergy 12-20-19 Anaphylaxis [facility] Medications Current Medications Medication Drug Class(es) Dates [...] aspirin 81 mg delayed release oral tablet (8 sources) Platelet Aggregation Inhibitor, Nonsteroidal Anti-inflammatory Drug Start: 10-16-2023 End: 10-15-2024 take 1 tablet by mouth once daily aspirin 81 MG EC tablet Indications: First trimester Take 1 tablet (81 mg) by mouth Daily 30 tablet 10/16/2023 10/15/2024 Active aspirin 81 mg ch ewable tablet Chew 1 tablet (81 mg total) and swallow in the morning. Active citalopram 20 mg oral tablet (10 sources) Serotonin Reuptake Inhibitor Start: 11-28-2023 take 1 tablet by mouth once daily in the morning citalopram (CeleXA) 20 MG tablet Indications: Anxiety, generalized (CMS/HCC) TAKE ONE TABLET BY MOUTH ONCE DAILY IN THE MORNING 30 tablet 11/28/2023 Active Start: 10-23-2022 End: 10-23-2023 take [...] the morning. 30 capsule 1 01/03/2023 Active hyoscyamine sulfate 0.125 mg sublingual tablet (1 source) take 1 tablet by mouth every four hours as needed hyoscyamine (LEVSIN) 0.125 mg SL tablet Take 1 tablet (125 mcg total) by mouth every 4 (four) hours as needed for cramping. Active ibuprofen 800 mg oral tablet (12 sources) Nonsteroidal Anti-inflammatory Drug Start: 2021 ibuprofen (MOTRIN) 800 mg tablet Take 800 mg by mouth. 04/07/2022 Active Comment on above: Take 800 mg by mouth . levothyroxine sodium 0.2 mg oral tablet (19 sources) l-Thyroxine Start: 2023 take 1 tablet by mouth before mealtime levothyroxine (Synthroid, Levoxyl) 200 MCG tablet Indications: Thyroid disease (CMS/HCC) Take 1 tablet (200 mcg) by mouth in the morning. Take before meals. 90 tablet 3 10/16/2023 Active Start: 11-09-2022 take 1 tablet by олег th once daily before breakfast levothyroxine (SYNTHROID) 175 mcg tablet Take 1 tablet by mouth daily before breakfast. 30 tablet 3 05/09/2023 Active Start: 05-04-2022 take 1 tablet by [...] OUTH TWICE A DAY FOR 30 DAYS mometasone [...] on above: Take 1 capsule by mo uth once daily. norethindrone 0.35 mg oral tablet [...] mouth Daily 30 tablet 11 01/14/2024 Active no115/iron/folic acid ( 19 ORAL) (1 source) no115/iron/folic acid ( 19 ORAL) Take by mouth. 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 THERAPY] Onset: 08-24-2022 Episodic Other [...] [31 weeks gestation of ] 02-25-2024 Episodic Residual codes; unclassified (1 source) Gestation period, 24 weeks; Translations: [24 weeks gestation of ] 02-26-2024 Episodic Substance-related disorders (1 source) Nicotine dependence, [...] Test Name Value Interpretation Reference Range Facility [facility] Referral to Food C linicon 02-26-2024 [facility] Urinalysis macro (dipstick) panel (U)on 02-11-2024 Bilirubin, UA Negative Negative - 4(70) +++ mg/dL [facility] Blood, UA Negative Negative - 50 Maury/mcL [facility] Clarity, UA Clear [facility] Color, UA Yellow [facility] Glucose, UA Negative Negative - 1999(110) ++++ mg/dL [facility] Interpretation and review of laboratory results Abnormal [facility] Ketones, UA Negative Negative - 160(16) ++++ mg/dL [facility] Leukocytes, UA Positive Negative - 500+++ Fan/mcL [facility] Nitrite, UA Negative Negative - Positive [facility] pH, UA 7 5 - 9 [facility] Protein, UA Positive Negative - 1999(20) ++++ mg/dL [facility] Spec Grav, UA 1.02 1 - 1.03 [facility] care Urobilinogen, UA 1.0 0.2 - 12 mg/dL [facility] Health[facility] e ALL THYROID STIM HORMONEon 1 Interpretation and review of laboratory results Abnormal [facility] TSH Qn 28.537 m[IU]/L High [facility] Cytology Cervical or vaginal smear or scraping studyon 11-13-2023 [facility] CNPNon 11-12-2023 CNPN Telephone (RADTSA) AMANDA CORTEZ ([id number]) 1990 F Date Time Provider Department 11/12/23 Arslan GARCIA During your visit today, we recorded the following information about you: Danna Pitts RN 11/12/2023 11:25 AM Signed Spoke to pt. She would like to see endocrinology in [place]. Pt's OB did adjust synthroid recently and has been monitoring labs. TREASURE- please sign pended order. PSS- please arrange visit when order is signed. KAREN Peters Sec, Danna Mcdowell RN Previous Messages ----- Message ----- From: Arslan Garcia MD Sent: 11/02/2023 12:08 PM EDT To: Obi Webberkins Sec; Carlos Faust Nurse Pool Given what sounds like patient [...] be calling patient to schedule appointment. Nguyen Pss, Meryl 11/15/2023 1:[address] Arteaga office spoke with Miguel. She states she has patient on her list to give a call today to get scheduled. Meryl Nguyen Pss, Meryl 11/28/2023 1:[address] Arteaga office. His office called patient on 11/21 and left message for her to call their office back to get scheduled. As of now they are waiting to hear back from patient. Meryl Schmid Nguyen Pss, Meryl 12/05/2023 9:12 AM Signed Called left message for Dr Arteaga office to call our office back re: status of this referral. Meryl Schmid Nguyen Pss, Meryl 12/10/2023 1:[address] Arteaga office spoke with Miguel. Per Miguel she states she called and left patient message on 11/21. As of now their office is waiting to hear back from patient. Meryl Nguyen Pss, Meryl 01/09/2024 2:[address] Atreaga office spoke with Miguel. She states patient [...] [C73] Order(s):CONSULT TO ENDOCRINOLOGY [9007] Order #: [id number]: 1 FUTURE Prescriptions as of 01/09/2024 - [...] Encounter Status:Closed by DANNA PITTS [facility]13/23 [facility]KEVIN[facility] AMANDA CORTEZ ([id number]) 1990 F Date Time Provider Department 07/19/23 EDNA SAL During your visit today, we recorded the following information about you: Edna Sal RN 07/19/2023 10:42 AM Signed Pt called to request labs sent to [facility]. Faxed to central scheduling. Edna [...] Encounter Status:Closed by EDNA SAL on 07/19/23 [facility] Telephone (ALONDRAA) AMANDA CORTEZ ([id number]) 1990 F Date Time Provider Department 06/25/23 [...] Signed Patients lab orders were sent to [facility] and I scheduled her a phone [...] (HCC) [C73] Order(s):T4/THYROXIN E [SQT4] Order #: [id number] FUTURE THYROID STIMULATING HORMONE [SQTSH] Order #: [id number] FUTURE THYROGLOBULIN, SERUM WITH REFLEX TO IA OR LC-MS/MS [SQTHYRORF] Order #: [id number] FUTURE Prescriptions as of 08/23/2023 - levothyroxine [...] Encounter Status:Closed by Arslan GARCIA on 08/15/23 [facility] CNPN Telephone (NCCAP) AMANDA CORTEZ ([id number]) 1990 F Date Time Provider Department 02/14/23 [facility]IA [facility] During your visit today, we recorded the following information about you: Obi Genao 02/14/2023 9:54 AM Signed Patient is scheduled for appointments Arslan Garcia MD [facility] [place] [facility]; Obi Genao 4 months with labs. Orders have been placed in [employer]. Allergies As of Date: 02/14/2023 Noted Allergy Reaction CECLOR (CEFACLOR) 04/11/2022 4 - Hives 12 - Shortness of Breath PENICILLINS 04/11/2022 4 - Hives 12 - Shortness of Breath Date Reviewed: 05/04/2022 Reviewed by: Jerman July - Fully Assessed Reason for Visit: Appointment Confirmation [[id number]] Prescriptions as of 02/14/2023 - levothyroxine (SYNTHROID) [...] by mouth. - OTC PRODUCT Supplement by [employer] for breast feeding Problem List As Of Date: 02/14/2023 (None) Encounter Status:Closed by OBI GENAO on 02/14/23 Normal [facility] CBC W Auto Differential pane l (Bld)on 02-01-2023 Basophils (Bld) [#/Vol] 0.04 10*3/uL Normal <0.11 [facility] Comment on above: Order Comment: Speci men Type: BLOOD SPECIMEN Ordering Facility: [facility] Address: [address] [place] [address] Performed By: #### 5 7021-8 #### [facility] CLIA [id number] [address] [place] [address] 28483 Basophils/100 WBC (Bld) 0.5 % Normal [facility] Comment on above: Order Comment: Speci men Type: BLOOD SPECIMEN Ordering Facility: [facility] Address: [address] [place] [address] Performed By: #### 5 7021-8 #### [facility] CLIA [id number] [address] [place] [address] 66234 Differential cell count method Nom (Bld) Auto Normal [facility] Comment on above: Order Comment: Speci men Type: BLOOD SPECIMEN Ordering Facility: [facility] Address: [address] [place] [address] Performed By: #### 5 7021-8 #### [facility] CLIA [id number] [address] [place] [address] Eosinophils (Bld) [#/Vol] 0.19 10*3/uL Normal <0.46 [facility] Comment on above: Order Comment: Speci men Type: BLOOD SPECIMEN Ordering Facility: [facility] Address: [address] [place] [address] Performed By: #### 5 7021-8 #### [facility] CLIA [id number] [address] [place] [address] 58745 Eosinophils/100 WBC (Bld) 2.5 % Normal [facility] Comment on above: Order Comment: Speci men Type: BLOOD SPECIMEN Ordering Facility: [facility] Address: [address] [place] [address] Performed By: #### 5 7021-8 #### [facility] CLIA [id number] [address] [place] [address] 59956 Erythrocyte distribution width (RBC) [Ratio] 13.3 % Normal 11.5-15.0 [facility] Comment on above: Order Comment: Speci men Type: BLOOD SPECIMEN Ordering Facility: [facility] Address: [address] [place] [address] Performed By: #### 5 7021-8 #### [facility] CLIA [id number] [address] [place] [address] 94248 Hematocrit (Bld) [Volume fraction] 47.7 % High 36.0-46.0 [facility] Comment on above: Order Comment: Speci men Type: BLOOD SPECIMEN Ordering Facility: [facility] Address: [address] [place] [address] Performed By: #### 5 7021-8 #### [facility] CLIA [id number] [address] [place] [address] 81198 Hemoglobin (Bld) [Mass/Vol] 15.6 g/dL High 11.5-15.5 [facility] Comment on above: Order Comment: Speci men Type: BLOOD SPECIMEN Ordering Facility: [facility] Address: [address] [place] [address] Performed By: #### 5 7021-8 #### [facility] CLIA [id number] [address] [place] [address]2959 Immature granulocytes (Bld) [#/Vol] 0.03 10*3/uL Normal <0.10 [facility] Comment on above: Order Comment: Speci men Type: BLOOD SPECIMEN Ordering Facility: [facility] Address: [address] [place] [address] Performed By: #### 5 7021-8 #### [facility] CLIA [id number] [address] [place] [address] 64063 Immature granulocytes/100 WBC (Bld) 0.4 % Normal [facility] Comment on above: Order Comment: Speci men Type: BLOOD SPECIMEN Ordering Facility: [facility] Address: [address] [place] [address] Performed By: #### 5 7021-8 #### [facility] CLIA [id number] [address] [place] [address] 57787 Lymphocytes (Bld) [#/Vol] 2.30 10*3/uL Normal 1.00-4.00 [facility] Comment on above: Order Comment: Speci men Type: BLOOD SPECIMEN Ordering Facility: [facility] Address: [address] [place] [address] Performed By: #### 5 7021-8 #### [facility] CLIA [id number] [address] [place] [address] 79455 Lymphocytes/100 WBC (Bld) 29.7 % Normal [facility] Comment on above: Order Comment: Speci men Type: BLOOD SPECIMEN Ordering Facility: [facility] Address: [address] [place] [address] Performed By: #### 5 7021-8 #### [facility] CLIA [id number] [address] [place] [address] 50279 MCH (RBC) [Entitic mass] 28.8 pg Normal 26.0-34.0 [facility] Comment on above: Order Comment: Speci men Type: BLOOD SPECIMEN Ordering Facility: [facility] Address: [address] [place] [address] Performed By: #### 5 7021-8 #### [facility] CLIA [id number] [address] [place] [address] 96938 MCHC (RBC) [Mass/Vol] 32.7 g/dL Normal 30.5-36.0 [facility] Comment on above: Order Comment: Speci men Type: BLOOD SPECIMEN Ordering Facility: [facility] Address: [address] [place] [address] Performed By: #### 5 7021-8 #### [facility] CLIA [id number] [address] [place] [address] 47469 MCV (RBC) [Entitic vol] 88.2 fL Normal 80.0-100.0 [facility] Comment on above: Order Comment: Speci men Type: BLOOD SPECIMEN Ordering Facility: [facility] Address: [address] [place] [address] Performed By: #### 5 7021-8 #### [facility] CLIA [id number] [address] [place] [address] 79647 Monocytes (Bld) [#/Vol] 0.49 10*3/uL Normal <0.87 [facility] Comment on above: Order Comment: Speci men Type: BLOOD SPECIMEN Ordering Facility: [facility] Address: [address] [place] [address] Performed By: #### 5 7021-8 #### [facility] CLIA [id number] [address] [place] [address] 08862 Monocytes/100 WBC (Bld) 6.3 % Normal [facility] Comment on above: Order Comment: Speci men Type: BLOOD SPECIMEN Ordering Facility: [facility] Address: [address] [place] [address] Performed By: #### 5 7021-8 #### [facility] CLIA [id number] [address] [place] [address] 63751 Neutrophils (Bld) [#/Vol] 4.70 10*3/uL Normal 1.45-7.50 [facility] Comment on above: Order Comment: Speci men Type: BLOOD SPECIMEN Ordering Facility: [facility] Address: [address] [place] [address] Performed By: #### 5 7021-8 #### [facility] CLIA [id number] [address] [place] [address] 21329 Neutrophils/100 WBC (Bld) 60.6 % Normal [facility] Comment on above: Order Comment: Speci men Type: BLOOD SPECIMEN Ordering Facility: [facility] Address: [address] [place] [address] Performed By: #### 5 7021-8 #### [facility] CLIA [id number] [address] [place] [address] 12280 Nucleated RBC (Bld) [#/Vol] 10*3/uL Normal <0.01 [facility] Comment on above: Order Comment: Speci men Type: BLOOD SPECIMEN Ordering Facility: [facility] Address: [address] [place] [address] Performed By: #### 5 7021-8 #### [facility] CLIA [id number] [address] [place] [address] 45777 Nucleated RBC/100 WBC (Bld) [Ratio] 0.0 /100 WBC Normal [facility] Comment on above: Order Comment: Speci men Type: BLOOD SPECIMEN Ordering Facility: [facility] Address: [address] [place] [address] Performed By: #### 5 7021-8 #### [facility] CLIA [id number] [address] [place] [address] 11759 Platelet mean volume (Bld) [Entitic vol] 9.6 fL Normal 9.0-12.7 [facility] Comment on above: Order Comment: Speci men Type: BLOOD SPECIMEN Ordering Facility: [facility] Address: [address] [place] [address] Performed By: #### 5 7021-8 #### [facility] CLIA [id number] [address] [place] [address] Platelets (Bld) [#/Vol] 248 10*3/uL Normal 150-400 [facility] Comment on above: Order Comment: Speci men Type: BLOOD SPECIMEN Ordering Facility: [facility] Address: [address] [place], [place] [address] Performed By: #### 5 7021-8 #### [facility] CLIA [id number] [address] [place] [address] 01437 RBC (Bld) [#/Vol] 5.41 10*6/uL High 3.90-5.20 [facility] Comment on above: Order Comment: Speci men Type: BLOOD SPECIMEN Ordering Facility: [facility] Address: [address] [place] [address] Performed By: #### 5 7021-8 #### [facility] CLIA [id number] [address] [place] [address] 18240 WBC (Bld) [#/Vol] 7.75 10*3/uL Normal 3.70-11.00 [facility] Comment on above: Order Comment: Speci men Type: BLOOD SPECIMEN Ordering Facility: [facility] Address: [address] [place] [address] Performed By: #### 5 7021-8 #### [facility] CLIA [id number] [address] [place] [address] 61600 T3 SerPl-mCncon 02-01-2023 T3 [Mass/Vol] 123 ng/dL Normal 79-165 [facility] Comment on above: Order Comment: Speci men Type: BLOOD SPECIMEN Ordering Facility: [facility] Address: [address] [place] [address] Performed By: #### 3 053-6, 3016-3, 3026-2 #### [facility] CLIA [id number] [address] [facility] [id number] [id number] [place] T4 SerPl-mCncon 02-01-2023 T4 [Mass/Vol] 11.9 ug/dL High 5.5-10.2 [facility] Comment on above: Order Comment: Speci kishor Type: BLOOD SPECIMEN Ordering Facility: [facility] Address: [address] [place] [address] Performed By: #### 3 053-6, 3016-3, 3026-2 #### [facility] CLIA [id number] [address] [facility] [id number] [facility] THYROGLOBULIN BY MASS SPECTR [facility] 02-01-2023 THYROGLOBULIN, LC-MS/MS <0.5 Low 1.3-31.8 [facility] Comment on above: Order Comment: Chel iverson Type: BLOOD SPECIMEN Ordering Facility: [facility] Address: [place] [address] Result Comment: Results obtained with different test [...] developed and its performance characteristics determined by [facility]. It has not been cleared or approved by the [place] Food and Drug Administration. This test was performed in a CLIA certified laboratory and is intended for clinical purposes. Performed By: [facility] [address] [place] [address] Soup Person: Prem Willis MD, PhD CLIA Number: [id number] Performed By: #### T [facility] #### [facility] CLIA [id number] [address] [place] [address] TSH [facility]Pl[facility] 02-01-2023 TSH Qn 0.960 m[IU]/L Normal 0.270-4.200 [facility] Comment on above: Order Comment: Chel iverson Type: BLOOD SPECIMEN Ordering Facility: [facility] Address: [address] [place] [address] Result Comment: If t he patient is , TSH reference range varies by gestational period: First Trimester (weeks 9-12): 0.180-2.990 mIU/L Second Trimester: 0.110-3.980 mIU/L Third Trimester: 0.480-4.710 mIU/L Suman Graf et al. A Practical Approach for the Verifications and Determination of Site- and Trimester-Specific Reference Intervals for Thyroid Function tests in . Thyroid, 2019:29:3:412-420. Rajesh E, et al. 2017 Guidelines of the [place] [employer] for the Diagnosis and Management of Thyroid Disease during and the . Thyroid, 2017:27:3:315-389. Performed By: #### 3 053-6, 3016-3, 3026-2 #### [facility] CLIA [id number] [address] [place] [address] [place] PREG QUANT HCGon 08-17-2022 HCG QUANT 1 mIU/mL Normal [facility] Comment on above: Performed By: #### P REGQNT #### [facility] [address] [place] [address] Dr. Prashant Kang HCG RANGE SEE BELOW Normal [facility] Comment on above: Result Comment: 5-50 0.2-1 WEEK 50-500 1-2 WEEKS 100-5,000 2-3 WEEKS 500-10,000 3-4 WEEKS 1,000-50,000 4-5 WEEKS 10,000-100,000 5-6 WEEKS 15,000-200,000 6-8 WEEKS 10,000-100,000 2-3 MONTHS Performed By: #### P REGQNT #### [facility] [address] [place] [address] Dr. Prashant Kang PREG QUANT HCGon 07-04-2022 HCG QUANT <1 Normal [facility] Comment on above: Performed By: #### P REGQNT #### [facility] [address] [place] [address] Dr. Prashant Kang HCG RANGE SEE BELOW Normal [facility] Comment on above: Result Comment: 5-50 0.2-1 WEEK 50-500 1-2 WEEKS 100-5,000 2-3 WEEKS 500-10,000 3-4 WEEKS 1,000-50,000 4-5 WEEKS 10,000-100,000 5-6 WEEKS 15,000-200,000 6-8 WEEKS 10,000-100,000 2-3 MONTHS Performed By: #### P REGQNT #### [facility] [address] [place] [address] Dr. Prashant Kang PREG QUANT HCGon 05-16-2022 HCG QUANT <1 Normal [facility] Comment on above: Performed By: #### P TT, PT #### [facility] [address] [place] [address] Dr. Prashant Kang HCG RANGE SEE BELOW Normal [facility] Comment on above: Result Comment: 5-50 0.2-1 WEEK 50-500 1-2 WEEKS 100-5,000 2-3 WEEKS 500-10,000 3-4 WEEKS 1,000-50,000 4-5 WEEKS 10,000-100,000 5-6 WEEKS 15,000-200,000 6-8 WEEKS 10,000-100,000 2-3 MONTHS Performed By: #### P TT, PT #### [facility] [address] [place] [address] Dr. Prashant Kang PREG QUANT HCGon 05-08-2022 HCG QUANT <1 Normal [facility] Comment on above: Performed By: #### P REGQNT #### [facility] [address] [place] [address] Dr. Prashant Kang HCG RANGE SEE BELOW Normal [facility] Comment on above: Result Comment: 5-50 0.2-1 WEEK 50-500 1-2 WEEKS 100-5,000 2-3 WEEKS 500-10,000 3-4 WEEKS 1,000-50,000 4-5 WEEKS 10,000-100,000 5-6 WEEKS 15,000-200,000 6-8 WEEKS 10,000-100,000 2-3 MONTHS Performed By: #### P REGQNT #### [facility] [address] [place] [address] Dr. Prashant Kang CALCIUMon 03-08-2022 Calcium [Mass/Vol] 8.6 mg/dL Normal 8.5-10.1 [facility] Comment on above: Performed By: #### C A #### [facility] [address] [address] [address] Prashant Kang CALCIUMon 03-07-2022 Calcium [Mass/Vol] 8.4 mg/dL Critically low 8.5-10.1 [facility] Comment on above: Performed By: #### C A #### [facility] [address] [id number] Prashant Kang PREG HCG QUALon 03-07-2022 , QUAL Negative Normal NEGATIVE [facility] Comment on above: Performed By: #### P REG #### [facility] [address] [address] [address] Prashant Kang Covid-19 PCR (CVDTB)on SARS-CoV-2 (COVID-19) RNA DENEEN+probe Ql (Unsp spec) Not detected Normal NOT DETECTED [facility] Comment on above: Result Comment: This test is not yet approved or cleared by the [place] FDA. When there are no FDA-approved or cleared tests available, and other criteria are met, FDA can make tests available under an emergency access mechanism called an Emergency Use Authorization (EUA). The EUA for this test is supported by the Electron Beam Photo Mask Technician of Health and Human Service's (HHS's) declaration [...] SARS-CoV-2. Performed By: #### C VDTBH #### [facility] [address] [place] [address] Dr. Prashant Kang CALCIUMon 02-24-2022 Calcium [Mass/Vol] 8.8 mg/dL Normal 8.5-10.1 [facility] Comment on above: Performed By: #### P TT, PT #### [facility] [address] [place] [address] Dr. Prashant Kang CBC AUTO DIFFon 02-24-2022 BASO # 0.0 103/ul Normal 0.0-0.1 [facility] Comment on above: Performed By: #### P TT, PT #### [facility] [address] [place] [address] Dr. Prashant Kang Basophils/100 WBC (Bld) 0.3 % Normal 0.2-2.0 [facility] Comment on above: Performed By: #### P TT, PT #### [facility] [address] [place] [address] Dr. Prashant Kang EO # 0.1 103/ul Normal 0.0-0.7 [facility] Comment on above: Performed By: #### P TT, PT #### [facility] [address] [place] [address] Dr. Prashant Kang Eosinophils/100 WBC (Bld) 1.5 % Normal 0.9-7.0 [facility] Comment on above: Performed By: #### P TT, PT #### [facility] [address] [place] [address] Dr. Prashant Kang Erythrocyte distribution width (RBC) [Ratio] 13.8 % Normal 11.0-15.0 [facility] Comment on above: Performed By: #### P TT, PT #### [facility] [address] [place] [address] Dr. Prashant Kang Hematocrit (Bld) [Volume fraction] 45.5 % Normal 36.0-48.0 [facility] Comment on above: Performed By: #### P TT, PT #### [facility] [address] [place] [address] Dr. Prashant Kang Hemoglobin (Bld) [Mass/Vol] 14.6 g/dL Normal 12.0-16.0 [facility] Comment on above: Performed By: #### P TT, PT #### [facility] [address] [place] [address] Dr. Prashant Kang IG # 0.02 10e3/ul Normal 0.00-0.03 [facility] Comment on above: Performed By: #### P TT, PT #### [facility] [address] [place] [address] Dr. Prashant Kang IG % 0.3 % Normal 0.0-0.5 [facility] Comment on above: Performed By: #### P TT, PT #### [facility] [address] [place] [address] Dr. Prashant Kang LYMPH # 1.6 103/ul Normal 1.2-3.8 [facility] Comment on above: Performed By: #### P TT, PT #### [facility] [address] [place] [address] Dr. Prashant Kang Lymphocytes/100 WBC (Bld) 23.5 % Normal 20.5-60.0 [facility] Comment on above: Performed By: #### P TT, PT #### [facility] [address] [place] [address] Dr. Prashant Kang MANUAL DIFF REQ NO Normal [facility] Comment on above: Performed By: #### P TT, PT #### [facility] [address] [place] [address] Dr. Prashant Kang MCH (RBC) [Entitic mass] 26.5 pg Critically low 26.7-34.0 [facility] Comment on above: Performed By: #### P TT, PT #### [facility] [address] [place] [address] Dr. Prashant Kang MCHC (RBC) [Mass/Vol] 32.1 g/dL Normal 29.9-35.2 [facility] Comment on above: Performed By: #### P TT, PT #### [facility] [address] [place] [address] Dr. Prashant Kang MCV (RBC) [Entitic vol] 82.7 fL Normal 81.0-99.0 [facility] Comment on above: Performed By: #### P TT, PT #### [facility] [address] [place] [address] Dr. Prashant Kang MONO # 0.5 103/ul Normal 0.3-0.8 [facility] Comment on above: Performed By: #### P TT, PT #### [facility] [address] [place] [address] Dr. Prashant Kang Monocytes/100 WBC (Bld) 7.5 % Normal 1.7-12.0 [facility] Comment on above: Performed By: #### P TT, PT #### [facility] [address] [place] [address] Dr. Prashant Kang NEUT # 4.6 103/ul Normal 1.4-6.5 [facility] Comment on above: Performed By: #### P TT, PT #### [facility] [address] [place] [address] Dr. Prashant Kang Neutrophils/100 WBC (Bld) 66.9 % Normal 43.0-75.0 [facility] Comment on above: Performed By: #### P TT, PT #### [facility] [address] [place] [address] Dr. Prashant Kang Platelet mean volume (Bld) [Entitic vol] 9.9 fL Normal 9.5-13.5 [facility] Comment on above: Performed By: #### P TT, PT #### [facility] [address] [place] [address] Dr. Prashant Kang PLT 239 103/ul Normal 150-450 [facility] Comment on above: Performed By: #### P TT, PT #### [facility] [address] [place] [address] Dr. Prashant Kang RBC 5.50 106/ul Critically high 4.20-5.40 [facility] Comment on above: Performed By: #### P TT, PT #### [facility] [address] [place] [address] Dr. Prashant Kang WBC 6.8 103/ul Normal 4.0-11.0 [facility] Comment on above: Performed By: #### P TT, PT #### [facility] [address] [place] [address] Dr. Prashant Kang MAGNESIUMon 02-24-2022 Magnesium [Mass/Vol] 2.0 mg/dL Normal 1.8-2.4 [facility] Comment on above: Performed By: #### P TT, PT #### [facility] [address] [place] [address] Dr. Prashant Kang PHOSPHORUSon 02-24-2022 Phosphate [Mass/Vol] 3.3 mg/dL Normal 2.6-4.7 [facility] Comment on above: Performed By: #### P TT, PT #### [facility] [address] [place] [address] Dr. Prashant Kang PROTIMEon 02-24-2022 INR Coag (PPP) [Relative time] 1.01 {INR} Normal [facility] Comment on above: Performed By: #### P TT, PT #### [facility] [address] [place] [address] Dr. Prashant Kang INR GUIDELINES SEE BELOW Normal [facility] Comment on above: Result Comment: SALIMA RED INR: 2.0 - 3.0 CONDITIONS NOT LISTED BELOW 2.5 - 3.5 FOR PROSTHETIC HEART VALVE REPLACEMENT 2.5 - 3.5 RECURRENT THROMBOSIS Performed By: #### P TT, PT #### [facility] [address] [place] [address] Dr. Prashant Kang PT Coag (PPP) [Time] 10.9 s Normal 9.0-11.6 [facility] Comment on above: Performed By: #### P TT, PT #### [facility] [address] [place] [address] Dr. Prashant Kang PTTon 02-24-2022 aPTT Coag (Bld) [Time] 28.9 s Normal 22.3-36.2 [facility] Comment on above: Performed By: #### P TT, PT #### [facility] [address] [place] [address] Dr. Prashant Kang TSHon 02-24-2022 TSH 1.163 uIU/mL Normal 0.358-3.740 [facility] Comment on above: Performed By: #### P TT, PT #### [facility] [address] [place], [place] [address] Dr. Prashant Kang US THYROID FN ASP BXon 02-09 US THYROID FN ASP BX Begin Addendum #1 COLLECTED DATE/TIME: 02/03/2022 11:36 EDT Final Diagnosis Report for [facility], [place] (A/B) THYROID ISTHMUS NODULE, FINE NEEDLE [...] 2. Pathology results are pending. Normal [facility] CT NECK ST W CONon 2 CT [...] SHAILESH EMERY Date: 2022-01-20 13:05 Normal [facility] US THYROIDon 01-20-2022 US THYROID [...] SHAILESH EMERY Date: 2022-01-20 21:46 Normal [facility] CBC AUTO DIFFon 01-08-2022 BASO # 0.0 103/ul Normal 0.0-0.1 [facility] Comment on above: Performed By: #### P TT, PT #### [facility] [address] [place] [address] Dr. Prashant Kang Basophils/100 WBC (Bld) 0.4 % Normal 0.2-2.0 [facility] Comment on above: Performed By: #### P TT, PT #### [facility] [address] [address] [address] Prashant Kang EO # 0.2 103/ul Normal 0.0-0.7 [facility] Comment on above: Performed By: #### P TT, PT #### [facility] [address] [place] [address] Dr. Prashant Kang Eosinophils/100 WBC (Bld) 3.4 % Normal 0.9-7.0 [facility] Comment on above: Performed By: #### P TT, PT #### [facility] [address] [place] [address] Dr. Prashant Kang Erythrocyte distribution width (RBC) [Ratio] 14.6 % Normal 11.0-15.0 [facility] Comment on above: Performed By: #### P TT, PT #### [facility] [address] [place] [address] Dr. Prashant Kang Hematocrit (Bld) [Volume fraction] 42.9 % Normal 36.0-48.0 [facility] Comment on above: Performed By: #### P TT, PT #### [facility] [address] [place] [address] Dr. Prashant Kang Hemoglobin (Bld) [Mass/Vol] 13.4 g/dL Normal 12.0-16.0 [facility] Comment on above: Performed By: #### P TT, PT #### [facility] [address] [place] [address] Dr. Prashant Kang IG # 0.02 10e3/ul Normal 0.00-0.03 [facility] Comment on above: Performed By: #### P TT, PT #### [facility] [address] [place] [address] Dr. Prashant Kang IG % 0.3 % Normal 0.0-0.5 [facility] Comment on above: Performed By: #### P TT, PT #### [facility] [address] [place] [address] Dr. Prashant Knag LYMPH # 2.0 103/ul Normal 1.2-3.8 [facility] Comment on above: Performed By: #### P TT, PT #### [facility] [address] [place] [address] Dr. Prashant Kang Lymphocytes/100 WBC (Bld) 29.7 % Normal 20.5-60.0 [facility] Comment on above: Performed By: #### P TT, PT #### [facility] [address] [place] [address] Dr. Prashant Kang MANUAL DIFF REQ NO Normal [facility] Comment on above: Performed By: #### P TT, PT #### [facility] [address] [place] [address] Dr. Prashant Kang MCH (RBC) [Entitic mass] 26.3 pg Critically low 26.7-34.0 [facility] Comment on above: Performed By: #### P TT, PT #### [facility] [address] [place] [address] Dr. Prashant Kang MCHC (RBC) [Mass/Vol] 31.2 g/dL Normal 29.9-35.2 [facility] Comment on above: Performed By: #### P TT, PT #### [facility] [address] [place] [address] Dr. Prashant Kang MCV (RBC) [Entitic vol] 84.1 fL Normal 81.0-99.0 [facility] Comment on above: Performed By: #### P TT, PT #### [facility] [address] [place] [address] Dr. Prashant Kang MONO # 0.6 103/ul Normal 0.3-0.8 [facility] Comment on above: Performed By: #### P TT, PT #### [facility] [address] [place] [address] Dr. Prashant Kang Monocytes/100 WBC (Bld) 8.7 % Normal 1.7-12.0 [facility] Comment on above: Performed By: #### P TT, PT #### [facility] [address] [place] [address] Dr. Prashant Kang NEUT # 3.9 103/ul Normal 1.4-6.5 [facility] Comment on above: Performed By: #### P TT, PT #### [facility] [address] [place] [address] Dr. Prashant Kang Neutrophils/100 WBC (Bld) 57.5 % Normal 43.0-75.0 [facility] Comment on above: Performed By: #### P TT, PT #### [facility] [address] [place] [address] Dr. Prashant Kang Platelet mean volume (Bld) [Entitic vol] 9.9 fL Normal 9.5-13.5 [facility] Comment on above: Performed By: #### P TT, PT #### [facility] [address] [place] [address] Dr. Prashant Kang PLT 241 103/ul Normal 150-450 [facility] Comment on above: Performed By: #### P TT, PT #### [facility] [address] [place] [address] Dr. Prashant Kang RBC 5.10 106/ul Normal 4.20-5.40 [facility] Comment on above: Performed By: #### P TT, PT #### [facility] [address] [place] [address] Dr. Prashant Kang WBC 6.8 103/ul Normal 4.0-11.0 [facility] Comment on above: Performed By: #### P TT, PT #### [facility] [address] [place] [address] Dr. Prashant Kang GROUP A STREP CULTUREon 12-29 S. pyogenes Ag Ql (Unsp spec) Culture Observations: NEGATIVE FOR GROUP A STREPTOCOCCUS. Normal [facility] Comment on above: Performed By: #### P TT, PT #### [facility] [address] [place] [address] Dr. Prashant Kang PROF 14(COMP METB)on 022 Albumin [Mass/Vol] 3.6 g/dL Normal 3.4-5.0 [facility] Comment on above: Performed By: #### C MP #### [facility] [address] [place] [address] Dr. Prashant Kang Albumin/Globulin [Mass ratio] 0.8 {ratio} Normal [facility] Comment on above: Performed By: #### C MP #### [facility] [address] [place] [address] Dr. Prashant Kang ALP [Catalytic activity/Vol] 74 U/L Normal 46-116 [facility] Comment on above: Performed By: #### C MP #### [facility] [address] [address] [address] Prashant Kang ALT [Catalytic activity/Vol] 40 U/L Normal 14-59 [facility] Comment on above: Performed By: #### C MP #### [facility] [address] [address] [address] Prashant Kang Anion gap [Moles/Vol] 14.0 mmol/L Normal [facility] Comment on above: Performed By: #### C MP #### [facility] [address] [address] [address] Prashant Kang AST [Catalytic activity/Vol] 31 U/L Normal 15-37 [facility] Comment on above: Performed By: #### C MP #### [facility] [address] [place] [address] Dr. Prashant Kang Bilirubin [Mass/Vol] 0.4 mg/dL Normal 0.2-1.0 [facility] Comment on above: Performed By: #### C MP #### [facility] [address] [place] [address] Dr. Prashant Kang Calcium [Mass/Vol] 8.8 mg/dL Normal 8.5-10.1 [facility] Comment on above: Performed By: #### C MP #### [facility] [address] [place] [address] Dr. Prashant Kang Chloride [Moles/Vol] 105 mmol/L Normal 98-107 [facility] Comment on above: Performed By: #### C MP #### [facility] [address] [address] [address] Prashant Kang CO2 [Moles/Vol] 26.6 mmol/L Normal 21.0-32.0 [facility] Comment on above: Performed By: #### C MP #### [facility] [address] [place] [address] Dr. Prashant Kang Creatinine [Mass/Vol] 0.80 mg/dL Normal 0.55-1.02 [facility] Comment on above: Performed By: #### C MP #### [facility] [address] [place] [address] Dr. Prashant Kang EGFR-AF [place] >60 Normal >=60 [facility] Comment on above: Performed By: #### C MP #### [facility] [address] [address] [address] Prashant Kang EGFR-NON AF [place] >60 Normal >=60 [facility] Comment on above: Performed By: #### C MP #### [facility] [address] [address] [address] Prashant Kang Globulin (S) [Mass/Vol] 4.3 g/dL Normal [facility] Comment on above: Performed By: #### C MP #### [facility] [address] [address] [address] Prashant Kang Glucose [Mass/Vol] 101 mg/dL Normal 74-106 [facility] Comment on above: Performed By: #### C MP #### [facility] [address] [address] [address] Prashant Kang Potassium [Moles/Vol] 4.6 mmol/L Normal 3.5-5.1 [facility] Comment on above: Performed By: #### C MP #### [facility] [address] [place] [address] Dr. Prashant Kang Protein [Mass/Vol] 7.9 g/dL Normal 6.4-8.2 [facility] Comment on above: Performed By: #### C MP #### [facility] [address] [address] [address] Prashant Kang Sodium [Moles/Vol] 141 mmol/L Normal 136-145 [facility] Comment on above: Performed By: #### C MP #### [facility] [address] [address] [address] Prashant Kang Urea nitrogen [Mass/Vol] 11.0 mg/dL Normal 7.0-18.0 [facility] Comment on above: Performed By: #### C MP #### [facility] [address] [address] [address] Prashant Kang Urea nitrogen/Creatinine [Mass ratio] 13.8 mg/mg Normal [facility] Comment on above: Performed By: #### C MP #### [facility] [address] [place], [place] [address] Dr. Prashant Kang STREPT SCREENon 01-08-2022 STREP SCREEN A Negative Normal NEGATIVE [facility] Comment on above: Performed By: #### P TT, PT #### [facility] [address] [place], [place] [address] Dr. Prashant Kang XR NECK SOFT TISSUEon [...] MIKE BARNETT Date: 2022-01-08 04:43 Normal [facility] Covid-19 PCR (CVDTBH)on SARS-CoV-2 (COVID-19) RNA DENEEN+probe Ql (Unsp spec) Not detected Normal NOT DETECTED [facility] Comment on above: Result Comment: This test is not yet approved or cleared by the [place] FDA. When there are no FDA-approved or cleared tests available, and other criteria are met, FDA can make tests available under an emergency access mechanism called an Emergency Use Authorization (EUA). The EUA for this test is supported by the [employer] Be[employer] Mask Technician of Health and Human Service's (HHS's) declaration [...] Performed By: #### P TT, PT #### [facility] [address] [place] [address] Dr. Prashant Kang Vital Signs Date Time Vital Sign Value Performing Clinician Donta coleman 02-25-2024 14:08-0400 Body mass index (BMI) [Ratio] 39.87 kg/m2 Kim YAO Work Phone: [facility] 02-25-2024 14:08-0400 Body weight 98.88 kg Kim YAO Work Phone: [facility] 02-25-2024 14:08-0400 Diastolic blood pressure 70 mm[Hg] Kim YAO Work Phone: [facility] 02-25-2024 14:08-0400 Systolic blood pressure 114 mm[Hg] Kim YAO Work Phone: [facility] 02-11-2024 11:10-0400 Body mass index (BMI) [Ratio] 40.2 kg/m2 Acosta Shania DO Work Phone: [facility] 02-11-2024 11:10-0400 Body weight 99.7 kg Acosta Shania DO Work Phone: [facility] 02-11-2024 11:10-0400 Diastolic blood pressure 64 mm[Hg] Acosta Shania DO Work Phone: [facility] 02-11-2024 11:10-0400 Systolic blood pressure 112 mm[Hg] Acosta Shania DO Work Phone: [facility] 06-12-2023 13:54-0500 Body mass index (BMI) [Ratio] 40.6 kg/m2 Acosta Shania DO Work Phone: [facility] 06-12-2023 13:54-0500 Body weight 100.7 kg Acosta Shania DO Work Phone: [facility] 06-12-2023 13:54-0500 Diastolic blood pressure 74 mm[Hg] Acosta Shania DO Work Phone: [facility] 06-12-2023 13:54-0500 Systolic blood pressure 118 mm[Hg] Acosta Jauregui DO Work Phone: [facility] 05-04-2022 09:40-0500 Body temperature 97.2 [degF] JONNY Garcia MD Work Phone: [facility] 05-04-2022 09:40-0500 Body weight 88.81 kg JONNY Garcia MD Work Phone: [facility] 05-04-2022 09:40-0500 Diastolic blood pressure 73 mm[Hg] JONNY Garcia MD Work Phone: [facility] 05-04-2022 09:40-0500 Heart rate 67 /min JONNY Garcia MD Work Phone: [facility] 05-04-2022 09:40-0500 Respiratory rate 16 /min JONNY Garcia MD Work Phone: [facility] 05-04-2022 09:40-0500 SaO2% (BldA) [Mass fraction] 100 % JONNY Garcia MD Work Phone: [facility] 05-04-2022 09:40-0500 Systolic blood pressure 113 mm[Hg] JONNY Garcia MD Work Phone: [facility] Encounters Encounter Date Encounter Type Care Provider Facility Start: 02-26-2024 End: 02-26-2024 Patient encounter procedure [facility] Comment on above: 24 weeks gestation o f ; Food insecurity Start: 02-25-2024 End: 02-25-2024 Bamboo flowsheet Kim YAO Work Phone: [facility] Start: 02-25-2024 End: 02-25-2024 Bamboo flowsheet Kim YAO Work Phone: [facility] Start: 02-25-2024 End: 02-25-2024 Office outpatient visit 15 minutes Kim YAO Work Phone: [facility] Comment on above: Third trimester preg yogesh; 31 weeks gestation of ; Thyroid disease (CMS/HCC) Start: 02-25-2024 End: 02-25-2024 ambulatory KIM MCKEON Not Available Start: 02-11-2024 End: 02-11-2024 Bamboo flowsheet Acosta Shania DO Work Phone: [facility] Start: 02-11-2024 End: 02-11-2024 Bamboo flowsheet Acosta Shania DO Work Phone: [facility] Start: 02-11-2024 End: 02-11-2024 Office outpatient visit 15 minutes Acosta Shania DO Work Phone: [facility] Comment on above: Third trimester preg yogesh; Thyroid disease (CMS/HCC); 29 weeks gestation of ; History of placental abruption; Non compliance w medication regimen Start: 02-11-2024 End: 02-11-2024 ambulatory ACOSTA SHANIA Not Available Start: 02-08-2024 End: 02-08-2024 Clinisync Result Encounter Acosta Shania DO Work Phone: [facility] External Department Unsolicited Start: 02-08-2024 End: 02-08-2024 Clinisync Result Encounter Acosta Shania DO Work Phone: [facility] External Department Unsolicited Start: 01-23-2024 End: 01-24-2024 Telephone encounter Arslan Garcia MD Work Phone: Radiation Oncology Comment on above: Patient Question Start: 01-14-2024 End: 01-14-2024 ambulatory ACOSTA SHANIA Not Available Start: 01-11-2024 End: 01-11-2024 ambulatory ACOSTA R SHANIA [facility] Start: 12-17-2023 End: 12-17-2023 ambulatory ACOSTA [...] End: 10-25-2023 Telemedicine consultation with patient Arslan Felipe Garcia MD Work Phone: Radiation Oncology Start: [...] 15 minutes Acosta Shania DO Work Phone: [facility] Comment on above: Missed menses; Amenorrhea Start: 06-12-2023 End: 06-12-2023 ambulatory ACOSTA SHANIA Not Available Start: 02-14-2023 Telephone encounter Arslan Garcia MD [facility] Comment on above: Appointment Confirma tion Start: 02-08-2023 End: 02-08-2023 ambulatory SARA MEDELLIN Facility:[facility] Start: 02-01-2023 End: 02-01-2023 ambulatory SARA MEDELLIN Facility:[facility] Start: 11-09-2022 Telephone encounter Arslan Garcia MD [...] Start: 04-20-2022 Patient encounter procedure [facility] Provider [facility] Department Start: 04-11-2022 End: 04-11-2022 Patient encounter procedure Lab/[place] Zhao Work Phone: Radiation Oncology Comment on above: Thyroid cancer (HCC) (Primary Dx) Start: 03-09-2022 Encounter for preprocedural laboratory examination DR CHARLIE EASTMAN [facility] Start: 03-07-2022 End: 03-08-[address] [...] Date Procedure Procedure Detail Performing Clinician Start: 02-26-2024 AMB REFERRAL TO FOOD CLINIC Yfn Michelle MD Work Phone: Start: 02-11-2024 Urnls dip stick/tabl et rgnt non-auto w/o micrscp Acosta Shania DO Work Phone: Start: 02-08-2024 ALL THYROID STIM HORMONE Acosta Shania DO Work Phone: Start: 11-13-2023 Cytp cerv/vag auto t hin layer prep mnl screen Acosta Shania DO Work Phone: Plan of Treatment Date Care Activity Detail Author Start: 01-10-2025 Adult BMI Screening Adult BMI Screen ing [facility] Start: 01-10-2025 Tobacco Screening Tobacco Screening [facility] Start: 03-10-2024 End: 03-10-2024 Patient encounter procedure 03/10/2024 1:00 PM EST Routine [facility] [address] [place] [address] ShaniaAcosta saravia, DO [address] [place], [place] [id number] [facility] Start: 02-25-2024 End: 02-24-2025 US biophysical profile w non stress test US biophysical profile w non stress test Imaging Routine Thyroid disease (CMS/HCC) Expected: 02/25/2024 (Approximate), Expires: 02/24/2025 [facility] Work Phone: Comment on above: Expected: 02/25/2024 (Approximate), Expires: 02/24/2025 Start: 02-25-2024 End: 02-25-2024 Patient encounter procedure [facility] Comment on above: Arrived Start: 02-11-2024 End: 02-10-2025 US biophysical profile w non stress test US biophysical profile w non stress test Imaging Routine Thyroid disease (CMS/HCC) 29 weeks gestation of History of placental abruption Expected: 02/11/2024 (Approximate), Expires: 02/10/2025 [facility] Work Phone: Comment on above: Expected: 02/11/2024 (Approximate), Expires: 02/10/2025 Start: 02-11-2024 End: 02-10-2025 US for US OB SCAN FOR GROWTH Imaging Routine Thyroid disease (CMS/HCC) 29 weeks gestation of History of placental abruption Expected: 02/11/2024 (Approximate), Expires: 02/10/2025 [facility] Comment on above: Expected: 02/11/2024 (Approximate), Expires: 02/10/2025 Start: 02-11-2024 End: 02-11-2024 Patient encounter procedure [facility] Comment on above: [facility] Start: 12-30-2023 Covid-19 Vaccine ( season) Covid-19 Vaccine () [facility] Start: 12-30-2023 Influenza vaccination C [facility] Start: 08-15-2023 End: 11-14-2023 Thyroglobulin and Thyrogobulin Ab panel - Serum or Plasma THYROGLOBULIN, SERUM WITH REFLEX TO IA OR LC-MS/MS Lab Routine Thyroid cancer (HCC) Expected: 08/15/2023, Expires: 11/14/2023 [facility] Work Phone: Comment on above: Expected: 08/15/2023 , Expires: 11/14/2023 Start: 08-15-2023 End: 11-14-2023 Thyrotropin [Units/volume] in Serum or Plasma THYROID STIMULATING HORMONE Lab Routine Thyroid cancer (HCC) Expected: 08/15/2023, Expires: 11/14/2023 [facility] Work Phone: Comment on above: Expected: 08/15/2023 , Expires: 11/14/2023 Start: 08-15-2023 End: 11-14-2023 Thyroxine (T4) [Mass/volume] in Serum or Plasma T4/THYROXINE Lab Routine Thyroid cancer (HCC) Expected: 08/15/2023, Expires: 11/14/2023 [facility] Work Phone: Comment on above: Expected: 08/15/2023 , Expires: 11/14/2023 Start: 06-26-2023 End: 06-26-2023 Professional / ancillary services management 06/26/2023 1:00 PM EST Ancillary Procedure [facility] [address] [place] [address] [facility] Start: 06-12-2023 End: 06-12-2024 US for US PELVIS-TRANSVAG IF INDICATED Imaging Routine Amenorrhea Expected: 06/12/2023 (Approximate), Expires: 06/12/2024 [facility] Comment on above: Expected: 06/12/2023 (Approximate), Expires: 06/12/2024 Start: 04-30-2023 Behavioral Health Screening Behavioral Health Screening [facility] Start: 04-30-2023 Depression Assessment Depression Ass essment [facility] Start: 12-29-2022 Covid-19 Vaccine ( season) Covid-19 Vaccine () [facility] Start: 12-29-2022 Influenza vaccination C [facility] Start: 07-02-2022 End: 09-01-2022 THYROGLOBULIN BY MASS SPECTROMETRY THYROGLOBULIN BY MASS SPECTROMETRY Lab Routine Thyroid cancer (HCC) Expected: 07/02/2022, Expires: 09/01/2022 [facility] Work Phone: Comment on above: Expected: 07/02/2022 , Expires: 09/01/2022 Start: 07-02-2022 End: 09-01-2022 Thyrotropin [Units/volume] in Serum or Plasma TSH BLD Lab Routine Thyroid cancer (HCC) Expected: 07/02/2022, Expires: 09/01/2022 [facility] Work Phone: Comment on above: Expected: 07/02/2022 , Expires: 09/01/2022 Start: 07-02-2022 End: 09-01-2022 Thyroxine (T4) [Mass/volume] in Serum or Plasma T4/THYROXINE BLOOD Lab Routine Thyroid cancer (HCC) Expected: 07/02/2022, Expires: 09/01/2022 [facility] Work Phone: Comment on above: Expected: 07/02/2022 , Expires: 09/01/2022 Start: 04-30-2022 DEPRESSION ASSESSMENT [facility] Start: 2022 HPV TESTING HPV TESTING [facility] Start: 2022 Screening for malign ant neoplasm of cervix HPV Testing [facility] Start: 12-29-2021 Influenza vaccination INFLUENZA (#1) [facility] Start: 04-30-2021 DEPRESSION ASSESSMENT DEPRESSION ASS [facility] Start: 2013 PAP TESTING PAP TESTING [facility] Start: 2013 Screening for malign ant neoplasm of cervix [facility] Start: 2011 DTaP,Tdap and Td Vaccines (1 - Tdap) DTaP,Tdap and Td Vaccines (1 - Tdap) [facility] Start: 2011 Hepatitis B Vaccine (1 of 3 - 19+ 3-dose series) Hepatitis B Vaccine (1 of 3 - 19+ 3-dose series) [facility] Start: 2011 Urine microalbumin profile [facility] Start: 2010 Adult BMI Follow Up Plan Adult BMI Follow Up Plan [facility] Start: 2010 Anxiety Screening Anxiety Screening [facility] Start: 2010 Depression Screening Depression Scre [facility] Start: 2010 HEPATITIS C SCREENING HEPATITIS C [facility] Start: 2010 Hepatitis C screening Hepatitis C [facility] Start: 2010 HIV SCREENING HIV SCREENING [facility] Start: 2010 HIV screening HIV Screening [facility] Start: 2004 Depression Screening Depression Scre ing [facility] Start: 1998 PNEUMOCOCCAL (1 - PCV) PNEUMOCOCCAL (1 - PCV) [facility] Start: 1998 Pneumococcal vaccination [facility] Start: 1992 COVID-19 VACCINE (#1) COVID-19 VACCI NE (#1) [facility] Start: 1992 HEPATITIS B (1 of 3 - 3-dose series) HEPATITIS B (1 of 3 - 3-dose series) [facility] Start: 1992 Hepatitis B Vaccine (1 of 3 - 3-dose series) Hepatitis B Vaccine (1 of 3 - 3-dose series) [facility] Start: 1992 Tobacco [facility]ing [facility] CBC W Auto Different ial panel - Blood CBC and differential Lab Routine Amenorrhea Ordered: 06/12/2023 [facility] Comment on above: Ordered: 06/12/2023 hCG, quantitative, hCG, quantitative, Lab Routine Amenorrhea Ordered: 06/12/2023 [facility] Comment on above: Ordered: 06/12/2023 Hemoglobin A1c measurement Hemoglobin A1c Lab Routine Amenorrhea Ordered: 06/12/2023 [facility] Comment on above: Ordered: 06/12/2023 Prolactin Prolactin Lab Ro utine Amenorrhea Ordered: 06/12/2023 [facility] Comment on above: Ordered: 06/12/2023 Thyrotropin [Units/volume] in Serum or Plasma TSH Lab Routine Amenorrhea Ordered: 06/12/2023 [facility] Work Phone: Comment on above: Ordered: 06/12/2023 [facility] Payers Date Payer Category Payer Medicaid HMO [employer] [id number] 2020 Medicaid [id number] 2020 Medicaid (Managed Care) [employer] [id number] 1992 Unknown [id number] 2.16.840.1.194547.3.579.2. 593 1992 Unknown [id number] 2.16.840.1.657878.3.579.2. 593 1992 Unknown [id number] 2.16.840.1.598130.3.579.2. 593 1992 Unknown [id number] 2.16.840.1.273176.3.579.2. 593 1992 Unknown [id number] 2.16.840.1.083436.3.579.2. 593 1992 Unknown [id number] 2.16.840.1.992485.3.579.2. 593 1992 Unknown [id number] 2.16.840.1.998285.3.579.2. 593 1992 Unknown [id number] 2.16.840.1.619141.3.579.2. 593 1992 Unknown [id number] 2.16.840.1.915872.3.579.2. 593 1992 Unknown [id number] 2.16.840.1.074614.3.579.2. 593 1992 Unknown [id number] 2.16.840.1.585215.3.579.2. 593 1992 Unknown [id number] 2.16.840.1.276121.3.579.2. 593 1992 Unknown [id number] 2.16.840.1.064983.3.579.2. 593 1992 Unknown [id number] 2.16.840.1.665410.3.579.2. 593 1992 Unknown [id number] 2.16.840.1.614674.3.579.2. 593 1992 Unknown [id number] 2.16.840.1.533714.3.579.2. 1286 1992 Unknown [id number] 2.16.840.1.242696.3.579.2. 1286 1992 Unknown [id number] 2.16.840.1.956486.3.579.2. 1259 1992 Unknown [id number] 2.16.840.1.197315.3.579.2. 1259 1992 Unknown [id number] 2.16.840.1.359988.3.579.2. 1259 1992 Unknown [id number] 2.16.840.1.359545.3.579.2. 1259 1992 Unknown [id number] 2.16.840.1.727714.3.579.2. 1259 1992 Unknown [id number] 2.16.840.1.941865.3.579.2. 1259 1992 Unknown [id number] 2.16.840.1.359630.3.579.2. 1259 1992 Unknown [id number] 2.16.840.1.363297.3.579.2. 9 1959 Unknown [id number] Social History Date Type Detail Facility Start: 04-11-2022 End: 12-20-2023 Tobacco smoking status FLIS Smokes tobacco daily [facility] History of tobacco use [facility] Start: 06-10-2020 End: 04-11-2022 Cigarettes smoked current (pack per day) - Reported 1 [facility] Start: 04-11-2022 End: 12-20-2023 Tobacco use and exposure Smokeless tobacco non-user [facility] Start: 04-11-2022 End: 02-25-2024 Alcohol intake Current drinker of alcohol (finding) [facility] Start: 04-11-2022 Alcohol Comment socially [facility] Start: 1990 Sex Assigned At Not on file [facility] Start: 06-10-2020 End: 05-04-2022 Tobacco use panel [facility] Adult Depression Screening Assessment 0 [facility] Start: 10-03-2022 Alcohol Comment caffeine intak e: 1-2 cups per day [facility] Start: 1990 Sex Assigned At Female [facility] Start: 10-04-2022 Gender identity Identifies as female gender (finding) [facility] Start: 08-06-2023 [facility] Start: 01-11-2024 Alcoholic beverage intake Ex-drinker (finding) [facility] Start: 08-26-2018 Sex Female (finding) [facility] Clinical Notes 03-07-2022 to 02-26-2024 Tawny Matthews - 02/26/2024 2:14 PM MAXIMILIAN Ramírez - 02/25/2024 1:50 PM Cesar Rader LPN - 02/11/2024 10:50 AM EDTTelephone Encounter - Irais Turpin LPN - 01/24/2024 3:36 PM EDT Note Date & Type Note Facility 02-26-2024 History of Present illness Narrative [facility] Patient visited the [facility] and received food documented in this encounter [facility] 02-25-2024 History of Present illness Narrative Reason [...] (CMS/HCC) Thyroid mass (CMS/HCC) 09/23/2022 Thyroid nodule ([facility] HISTORY PAST MEDICAL HISTORY SOCIAL HISTORY Past [...] of: MAXIMILIAN Lombardo documented in this encounter [facility] 02-11-2024 History of Present illness Narrative Reason [...] nursing note reviewed. Exam conducted with a windmill mechanic present. Vitals: Estimated body mass index is [...] Acosta Jauregui DO documented in this encounter [facility] 01-24-2024 Telephone encounter Note I notified Amanda of Dr. Garcia's response. She will call after she delivers in March 2024 to scheduled follow up. Irais Turpin RN [facility] 01-24-2024 Miscellaneous Notes I notified Amanda of Dr. Garcia's response. She will call after she delivers in March 2024 to scheduled follow up. Irais Turpin RN Amanda called stating she is currently and is being followed very closely by [employer] in [place] and her local [employer]INTENANCE PIPEF[employer]. She states her high risk is d/t [...] Irais Turpin RN documented in this encounter [facility] 01-23-2024 Telephone encounter Note Amanda called stating she is currently and is being followed very closely by [employer]NAN[employer]EF[employer] in [place] and her local MAINTENANCE PIPEF[employer]. She states her high risk is d/t [...] possible lab work? Thanks Irais Turpin RN [facility] 11-13-[address] Christine office received ref and they will be calling patient to schedule appointment. Records faxed to Dr. Arteaga. Lawanda elbert send records to [facility] dulce in your box Images from the original note were not included. Spoke to pt. She would like to see endocrinology in [place]. Pt's OB did adjust synthroid recently and has been monitoring labs. TREASURE- please sign pended order. PSS- please arrange visit when order is signed. KAREN Peters Tiffany Weyer, Angela, RN Previous Messages ----- Message ----- From: Arslan Garcia MD Sent: 11/02/2023 12:08 PM EDT To: Obi Dunlap; Carlos Nunez [facility] Nurse Pool Given what sounds like patient is in first trimester and ongoing concerns of breast-feeding recommend she follow-up with endocrinology. documented in this encounter [facility] 11-13-[address] Christine office received ref and they will be calling patient to schedule appointment. [facility] 11-12-2023 Telephone encounter Note Records faxed to Dr. Arteaga. [facility] 11-12-2023 Telephone encounter Note Lawanda please send records to [employer]heet in your box [facility] 11-12-2023 Telephone encounter Note Images from the original note were not included. Spoke to pt. She would like to see endocrinology in [place]. Pt's OB did adjust synthroid recently and has been monitoring labs. TREASURE- please sign pended order. PSS- please arrange visit when order is signed. KAREN Peters Tiffany Weyer, Angela, RN Previous Messages ----- Message ----- From: Arslan Garcia MD Sent: 11/02/2023 12:08 PM EDT To: Obi Dunlap; Carlos Nunez [facility] Nurse Mauro Given what sounds like patient is in first trimester and ongoing concerns of breast-feeding recommend she follow-up with endocrinology. [facility] 10-24-2023 Note HNO ID: [id number] Author: Arslan GARCIA MD Service: ? Author Type: Physician Type: Progress Notes Filed: 11/02/2023 12:08 Note Text: Unable to reach patient. [facility] 10-24-2023 History of Present illness Narrative Unable to reach patient. documented in this encounter [facility] 08-14-2023 Miscellaneous Notes TREASURE- please sign pended [...] Danna Pitts RN documented in this encounter [facility] 07-19-2023 Miscellaneous Notes Pt called to request labs sent to [facility]. Faxed to central scheduling. Edna Sal RN documented in this encounter [facility] 06-12-2023 History of Present illness [...] Acosta Jauregui DO documented in this encounter [facility] 02-14-2023 Miscellaneous Notes Images from the original note were not included. Patient is scheduled for appointments Arslan Garcia MD [facility] [place]; Obi Genao 4 months with labs. Orders have been placed in epic. documented in this encounter [facility] 02-08-2023 Note HNO ID: [id number] Author: Arslan Garcia MD Service: ? Author [...] Time Spent: 6 minutes Arslan Garcia MD [facility] 11-09-2022 Miscellaneous Notes Images from the original note were not included. Patient is called and scheduled. Arslan Garcia MD [facility] Nurse [place]; Obi Genao 8 weeks with labs, orders placed, thank you documented in this encounter [facility] 07-17-2022 Miscellaneous Notes Appointment has been changed to phone appt. Tj Funez Pt called in requesting to be switched to a phone visit tomorrow. Her kids are on spring and a couple of them are sick. Labs have been done and resulted. PSS- please change to phone visit for tomorrow. Danna Pitts RN documented in this encounter [facility] 05-04-2022 History of Present illness Narrative Radiation Oncology - FollowupNote PATIENT NAME: Amanda Cortez PATIENT : 1990 DIAGNOSIS: Thyroid cancer, classic papillary thyroid carcinoma, status post total thyroidectomy and right neck exploration on 03/07/2022, stage I [id number]. HPI: Patient returns after further work-up and [...] and right neck exploration on 03/07/2022, stage [id number]. Patient does have significant thyroglobulin antibody however [...] for this encounter. documented in this encounter [facility] 04-25-2022 Miscellaneous Notes Patient had been rescheduled. Tj Funez Images from the original note were not included. Called patient to reschedule, LMOV. MD Jessica Jenkins [facility] [place]; Tj Funez Unable to reach please reschedule documented in this encounter [facility] 04-11-2022 Nurse Note Amanda Rojelio Cortez presents in office today for: Lab Draw during Office Visit . Ordering Provider: Felipe Garcia M.D. Test (s) ordered: TG Method for obtaining blood: Phlebotomy was performed, accessing right antecubital vein. Needle removed intact. Dressing secured. Patient denies discomfort, dizziness, light-headedness or weakness and left the department without assist. Danna Pitts, RN documented in this encounter [facility] 03-07-2022 Note OPERATIVE NOTE OPERATION [...] the recovery room in good condition. [facility] Evaluation note Diagnosis Thyroid cancer (HCC)- Primary Malignant neoplasm of thyroid gland [facility] Thyroid cancer (HCC)- Primary Malignant neoplasm of thyroid gland [facility] Diagnosis Missed menses Amenorrhea Absence of menstruation [facility] ([facility])- Primary Malignant [...] [facility] Diagnosis Third trimester state, incidental 31 weeks gestation of Thyroid disease (CMS/HCC) Unspecified disorder of thyroid [facility] Diagnosis 24 weeks gestation of Food insecurity [facility] filed[facility] Summary Purpose Family History No Family History [...] cancer (HCC) Procedures CONSULT TO ENDOCRINOLOGY OFFICE/OUTPATIENT [facility] 60 MINUTES Arslan Garcia MD [address] [place] [address] [place] [address] Referral ID Status Reason Start Date Expiration Date Visits Requested Visits Authorized [id number] Authorized PCP Requested Referral 11/12/2023 11/11/2024 1 1 Additional Source Comments Source Comments (unrecognize d section and content) In the event this informatio n is protected by the Federal Confidentiality of Alcohol and Drug Abuse Patient Records regulations: The Federal rules restrict any use of the information to criminally investigate or prosecute any alcohol or drug abuse patient.[facility] the event this information is protected by the Federal Confidentiality of Alcohol and Drug Abuse Patient Records regulations: The Federal rules restrict any use of the information to criminally investigate or prosecute any alcohol or drug abuse patient.[facility] the event this information is protected by the Federal Confidentiality of Alcohol and Drug Abuse Patient Records regulations: The Federal rules restrict any use of the information to criminally investigate or prosecute any alcohol or drug abuse patient.[facility] the event this information is protected by the Federal Confidentiality of Alcohol and Drug Abuse Patient Records regulations: The Federal rules restrict any use of the information to criminally investigate or prosecute any alcohol or drug abuse patient.[facility] the event this information is protected by the Federal Confidentiality of Alcohol and Drug Abuse Patient Records regulations: The Federal rules restrict any use of the information to criminally investigate or prosecute any alcohol or drug abuse patient.[facility] the event this information is protected by the Federal Confidentiality of Alcohol and Drug Abuse Patient Records regulations: The Federal rules restrict any use of the information to criminally investigate or prosecute any alcohol or drug abuse patient.[facility] the event this information is protected by the Federal Confidentiality of Alcohol and Drug Abuse Patient Records regulations: The Federal rules restrict any use of the information to criminally investigate or prosecute any alcohol or drug abuse patient.[facility] the event this information is protected by the Federal Confidentiality of Alcohol and Drug Abuse Patient Records regulations: The Federal rules restrict any use of the information to criminally investigate or prosecute any alcohol or drug abuse patient.[facility] the event this information is protected by the Federal Confidentiality of Alcohol and Drug Abuse Patient Records regulations: The Federal rules restrict any use of the information to criminally investigate or prosecute any alcohol or drug abuse patient.[facility] Center[facility] the event this information is protected by the Federal Confidentiality of Alcohol and Drug Abuse Patient Records regulations: The Federal rules restrict any use of the information to criminally investigate or prosecute any alcohol or drug abuse patient.[facility] Center[facility] the event this information is protected by the Federal Confidentiality of Alcohol and Drug Abuse Patient Records regulations: The Federal rules restrict any use of the information to criminally investigate or prosecute any alcohol or drug abuse patient.[facility] Center[facility] the event this information is protected by the Federal Confidentiality of Alcohol and Drug Abuse Patient Records regulations: The Federal rules restrict any use of the information to criminally investigate or prosecute any alcohol or drug abuse patient.[facility] Reason for Visit (unrecogniz ed [...] Care Teams (unrecognized sec tion and content) [employer] Relationship Specialty Start Date End Date Sara Medellin MD [address] [place] [address] PCP - General Family Medicine 04/11/22 [employer] Relationship Specialty Start Date End Date Sara Medellin MD [address] [place] [address] PCP - General Family Medicine 04/11/22 [employer] Relationship Specialty Start Date End Date Sara Medellin MD [address] [place] [address] PCP - General Family Medicine 04/11/22 [employer] Relationship Specialty Start Date End Date Sara Medellin MD PCP - General Family Medicine 04/11/22 [employer] Relationship Specialty Start Date End Date Sara Medellin MD PCP - General Family Medicine 04/11/22 [employer] Relationship Specialty Start Date End Date Sara Medellin MD [address] [place] [address] PCP - General Family Medicine 10/03/22 [employer] Relationship Specialty Start Date End Date Sara Medellin MD PCP - General Family Medicine 04/11/22 [employer] Relationship Specialty Start Date End Date Sara Medellin MD PCP - General Family Medicine 04/11/22 [employer] Relationship Specialty Start Date End Date Sara Medellin MD PCP - General Family Medicine 04/11/22 [employer] Relationship Specialty Start Date End Date Sara Medellin MD [address] [place] [address] PCP - General Family Medicine 10/03/22 [employer] Relationship Specialty Start Date End Date Sara Medellin MD [address] [place] [address] PCP - General Family Medicine 10/03/22 [employer] Relationship Specialty Start Date End Date Sara Medellin MD [address] [facility] [place] [address] PCP - General Family Medicine 10/03/22 [employer] Relationship Specialty Start Date End Date Sara Medellin MD [address] [facility] [place] [address] PCP - General 01/10/24 INFORMATION SOURCE (unrecogn ized section and content) DATE CREATED AUTHOR 09/02/2022 [facility] DATE CREATED AUTHOR AUTHOR'S ORGANIZ ATION 01/11/2024 [facility] DATE CREATED AUTHOR AUTHOR'S ORGANIZ ATION 01/13/2024 [facility] DATE CREATED AUTHOR AUTHOR'S ORGANIZ ATION 02/26/2024 [facility] FOR RECORDS PERTAINING TO PATIENTS WHO [...] BE BASED ON THE PRIMARY CLINICAL RECORDS. [facility] [employer] provides no warranty or guarantee of the accuracy or completeness of information in this document.
--- NOTE | 2024-03-07 13:17 | US_ITS ---
[address] [address] Patient Name: LITO RAMIREZ MRN: [id number] date: 1990 Sex: F Assigned Patient Location: [facility] Current Patient Location: LAB Accession/Order Number: [id number] Exam Date: 03/07/2024 13:24 Report Date: 03/07/2024 14:42 At the request of: MARTINE LESTER Procedure: US OB BPP w non-stress EXAMINATION: US OB BPP w non-stress HISTORY:THYROID DISEASE E07.9 COMPARISON: Ultrasound OB biophysical 02/26/2024 TECHNIQUE: Ultrasound biophysical profile was performed in the radiology department. BREATHING MOVEMENTS: 2 GROSS BODY MOVEMENTS: 2 TONE: 2 QUALITATIVE AMNIOTIC FLUID VOLUME: 2 PRESENTATION: CEPHALIC HEART RATE: 143.62 bpm AMNIOTIC FLUID VOLUME: 19.80 cm GESTATIONAL AGE: 32 weeks 4 days US/US OB BPP w non-stress IMPRESSION: 1. Total biophysical profile score: 8 2. Several hypodensities within the placenta, nonspecific but favoring venous lakes. Electronically authenticated by: AMADOR GUERRERO Date: 03/07/2024 14:42
[2024-03-07 13:57] VITALS: BP 104/59; PULSE 76
== END 2024-03-07 14:28 | disposition home or self-care (01) ==
LOC: US 07:10 → FBC 13:12
PROVIDERS: PCP Family Medicine; Visit Provider Obstetrics & Gynecology
DX: E07.9 Disorder of thyroid, unspecified (principal); O99.283 Endocrine, nutritional and metabolic diseases complicating pregnancy, third trimester; Z3A.32 32 weeks gestation of pregnancy
CPT/HCPCS: 36415; 76818; 84443

== ENCOUNTER 2024-03-07 14:29 | Outpatient (OUT) | payer OTHER, SELFPAY ==
--- OUTSIDE RECORDS SUMMARY | 2024-03-07 14:42 | XMS_ITS | CCD ---
Author Organization [facility] CliniSypr Care Team Providers Care Typewriter Tester Name Role Phone Sara Medellin MD Primary Care Provider [phone] RAIZA, DR GUERRA Consulting Unavailable THEO ., [...] Unavailable HOY ., DR RUIZ Admitting Unavailable [place], DR SHAILESH Clark Consulting Unavailable TIMMIS, DR [...] Unavailable Sara Medellin MD Primary Care Provider [phone] Sara Medellin MD Primary Care Provider [phone] Sara Medellin MD Primary Care Provider [phone] SARA MEDELLIN Primary Care Unavailable Arslan GARCIA [...] Unavailable Sara Medellin MD Primary Care Provider [phone] Allergies Allergy Classification Reported Allergen(s) Allergy Type Date of Onset Reaction(s) Facility (20 sources) Cefaclor; Translations: [CEFACLOR] Drug Allergy 04-11-20 Hives, Shortness of Breath, Anaphylaxis [facility] (13 sources) Penicillins; Translations: [PENICILLINS] Drug Allergy 04-11-20 22 Hives, Shortness of Breath [facility] (2 sources) Cefaclor Drug Allergy 05-10-19 14 [facility] (2 sources) Penicillins Drug allergy (disorder) 05-10-19 14 [facility] (10 sources) Penicillin G sodium; Translations: [PENICILLIN G SODIUM] Allergy to substance 09-24-19 23 Anaphylaxis [facility] (9 sources) Cephalosporins (Antibiotic); Translations: [CEPHALOSPORINS] Propensity [...] 08-07-2022 Episodic Other aftercare (1 source) 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; 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] Onset: 08-24-2022 Episodic Other [...] [facility] Referral to Food C linicon 02-26-2024 [facility] Urinalysis macro (dipstick) panel (U)on 02-11-2024 Bilirubin, UA Negative Negative - 4(70) +++ mg/dL [facility] Blood, UA Negative Negative - 50 Maury/mcL [facility] Clarity, UA Clear [facility] Color, UA Yellow [facility] Glucose, UA Negative Negative - 1999(110) ++++ mg/dL [facility] Interpretation and review of laboratory results Abnormal [facility] Ketones, UA Negative Negative - 160(16) ++++ mg/dL [facility] Leukocytes, UA Positive Negative - 500+++ Fan/mcL [facility] Nitrite, UA Negative Negative - Positive [facility] pH, UA 7 5 - 9 [facility] Protein, UA Positive Negative - 1999(20) ++++ mg/dL [facility] Spec Grav, UA 1.02 1 - 1.03 [facility] care Urobilinogen, UA 1.0 0.2 - 12 mg/dL [facility] ALL THYROID STIM HORMONEon 1 Interpretation and review of laboratory results Abnormal [facility] TSH Qn 28.537 m[IU]/L High [facility] Healt hcare [facility] e Cytology Cervical or vaginal smear or scraping studyon 11-13-2023 [facility] CNPNon 11-12-2023 CNPN Telephone (RADTSA) AMANDA CORTEZ ([id number]) 1990 F Date Time Provider Department 11/12/23 Arslan GARCIA During your visit today, we recorded the following information about you: Danna Pitts RN 11/12/2023 11:25 AM Signed Spoke to pt. She would like to see endocrinology in [place]. Pt's OB did adjust synthroid recently and [...] [C73] Order(s):CONSULT TO ENDOCRINOLOGY [9007] Order #: [id number]: 1 FUTURE Prescriptions as of 01/09/2024 - [...] Encounter Status:Closed by DANNA PITTS on 11/13/23 [facility] AMANDA CORTEZ ([id number]) 1990 F Date Time Provider Department 07/19/23 EDNA SAL During your visit today, we recorded the following information about you: Edna Sal RN 07/19/2023 10:42 AM Signed Pt called to request labs sent to [facility]. Faxed to central scheduling. Edna Sal [...] Encounter Status:Closed by EDNA SAL on 07/19/23 [facility] 06[facility]2023 [facility] Telephone (ALONDRAA) AMANDA CORTEZ ([id number]) 1990 F Date Time Provider Department 06/25/23 [...] Signed Patients lab orders were sent to [facility] and I scheduled her a [...] (HCC) [C73] Order(s):T4/THYROXIN E [SQT4] Order #: [id number] FUTURE THYROID STIMULATING HORMONE [SQTSH] Order #: [id number] FUTURE THYROGLOBULIN, SERUM WITH REFLEX TO IA OR LC-MS/MS [SQTHYRORF] Order #: [id number] FUTURE Prescriptions as of 08/23/2023 - levothyroxine [...] Encounter Status:Closed by Arslan GARCIA on 08/15/23 [facility] 02-14-2023 [facility]NP[facility] Telephone (NCCAP) AMANDA CORTEZ ([id number]) 1990 F Date Time Provider Department 02/14/23 [facility] During your visit today, we recorded the following information about you: Obi Genao 02/14/2023 9:54 AM Signed Patient is scheduled for appointments Arslan Garcia MD [facility]; Obi Genao 4 months with labs. Orders have been placed in [facility]. Allergies As of Date: 02/14/2023 Noted Allergy Reaction CECLOR (CEFACLOR) 04/11/2022 4 - Hives 12 - Shortness of Breath PENICILLINS 04/11/2022 4 - Hives 12 - Shortness of Breath Date Reviewed: 05/04/2022 Reviewed by: Jerman July - Fully Assessed Reason for Visit: Appointment Confirmation [1625] Prescriptions as of 02/14/2023 - levothyroxine (SYNTHROID) [...] by mouth. - OTC PRODUCT Supplement by [employer] for breast feeding Problem List As Of Date: 02/14/2023 (None) Encounter Status:Closed by OBI GENAO on 02/14/23 Normal [facility] CBC W Auto Differential pane l (Bld)on 02-01-2023 Basophils (Bld) [#/Vol] 0.04 10*3/uL Normal <0.11 [facility] Comment on above: Order Comment: Speci men Type: BLOOD SPECIMEN Ordering Facility: [facility] Address: [address] [place] [address] Performed By: #### 5 7021-8 #### [facility] CLIA [id number] [address] [place] [address] 17061 Basophils/100 WBC (Bld) 0.5 % Normal [facility] Comment on above: Order Comment: Speci men Type: BLOOD SPECIMEN Ordering Facility: [facility] Address: [address] [place] [address] Performed By: #### 5 7021-8 #### [facility] CLIA [id number] [address] [place] [address] 20555 Differential cell count method Nom (Bld) Auto Normal [facility] Comment on above: Order Comment: Speci men Type: BLOOD SPECIMEN Ordering Facility: [facility] Address: [address] [place] [address] Performed By: #### 5 7021-8 #### [facility] CLIA [id number] [address] [place] [address] Eosinophils (Bld) [#/Vol] 0.19 10*3/uL Normal <0.46 [facility] Comment on above: Order Comment: Speci men Type: BLOOD SPECIMEN Ordering Facility: [facility] Address: [address] [place] [address] Performed By: #### 5 7021-8 #### [facility] CLIA [id number] [address] [place] [address] 59690 Eosinophils/100 WBC (Bld) 2.5 % Normal [facility] Comment on above: Order Comment: Speci men Type: BLOOD SPECIMEN Ordering Facility: [facility] Address: [address] [place] [address] Performed By: #### 5 7021-8 #### [facility] CLIA [id number] [address] [place] [address] 25233 Erythrocyte distribution width (RBC) [Ratio] 13.3 % Normal 11.5-15.0 [facility] Comment on above: Order Comment: Speci men Type: BLOOD SPECIMEN Ordering Facility: [facility] Address: [address] [place] [address] Performed By: #### 5 7021-8 #### [facility] CLIA [id number] [address] [place] [address] 38107 Hematocrit (Bld) [Volume fraction] 47.7 % High 36.0-46.0 [facility] Comment on above: Order Comment: Speci men Type: BLOOD SPECIMEN Ordering Facility: [facility] Address: [address] [place] [address] Performed By: #### 5 7021-8 #### [facility] CLIA [id number] [address] [place] [address] 86822 Hemoglobin (Bld) [Mass/Vol] 15.6 g/dL High 11.5-15.5 [facility] Comment on above: Order Comment: Speci men Type: BLOOD SPECIMEN Ordering Facility: [facility] Address: [address] [place] [address] Performed By: #### 5 7021-8 #### [facility] CLIA [id number] [address] [place] [address] 24038 Immature granulocytes (Bld) [#/Vol] 0.03 10*3/uL Normal <0.10 [facility] Comment on above: Order Comment: Speci men Type: BLOOD SPECIMEN Ordering Facility: [facility] Address: [address] [place] [address] Performed By: #### 5 7021-8 #### [facility] CLIA [id number] [address] [place] [address] 15537 Immature granulocytes/100 WBC (Bld) 0.4 % Normal [facility] Comment on above: Order Comment: Speci men Type: BLOOD SPECIMEN Ordering Facility: [facility] Address: [address] [place] [address] Performed By: #### 5 7021-8 #### [facility] CLIA [id number] [address] [place] [address] 89574 Lymphocytes (Bld) [#/Vol] 2.30 10*3/uL Normal 1.00-4.00 [facility] Comment on above: Order Comment: Speci men Type: BLOOD SPECIMEN Ordering Facility: [facility] Address: [address] [place] [address] Performed By: #### 5 7021-8 #### [facility] CLIA [id number] [address] [place] [address] 54256 Lymphocytes/100 WBC (Bld) 29.7 % Normal [facility] Comment on above: Order Comment: Speci men Type: BLOOD SPECIMEN Ordering Facility: [facility] Address: [address] [place] [address] Performed By: #### 5 7021-8 #### [facility] CLIA [id number] [address] [place] [address] 49849 MCH (RBC) [Entitic mass] 28.8 pg Normal 26.0-34.0 [facility] Comment on above: Order Comment: Speci men Type: BLOOD SPECIMEN Ordering Facility: [facility] Address: [address] [place] [address] Performed By: #### 5 7021-8 #### [facility] CLIA [id number] [address] [place] [address] 31876 MCHC (RBC) [Mass/Vol] 32.7 g/dL Normal 30.5-36.0 [facility] Comment on above: Order Comment: Speci men Type: BLOOD SPECIMEN Ordering Facility: [facility] Address: [address] [place] [address] Performed By: #### 5 7021-8 #### [facility] CLIA [id number] [address] [place] [address] 43065 MCV (RBC) [Entitic vol] 88.2 fL Normal 80.0-100.0 [facility] Comment on above: Order Comment: Speci men Type: BLOOD SPECIMEN Ordering Facility: [facility] Address: [address] [place] [address] Performed By: #### 5 7021-8 #### [facility] CLIA [id number] [address] [place] [address] 40775 Monocytes (Bld) [#/Vol] 0.49 10*3/uL Normal <0.87 [facility] Comment on above: Order Comment: Speci men Type: BLOOD SPECIMEN Ordering Facility: [facility] Address: [address] [place] [address] Performed By: #### 5 7021-8 #### [facility] CLIA [id number] [address] [place] [address] 39452 Monocytes/100 WBC (Bld) 6.3 % Normal [facility] Comment on above: Order Comment: Speci men Type: BLOOD SPECIMEN Ordering Facility: [facility] Address: [address] [place] [address] Performed By: #### 5 7021-8 #### [facility] CLIA [id number] [address] [place] [address] 80512 Neutrophils (Bld) [#/Vol] 4.70 10*3/uL Normal 1.45-7.50 [facility] Comment on above: Order Comment: Speci men Type: BLOOD SPECIMEN Ordering Facility: [facility] Address: [address] [place] [address] Performed By: #### 5 7021-8 #### [facility] CLIA [id number] [address] [place] [address] 96360 Neutrophils/100 WBC (Bld) 60.6 % Normal [facility] Comment on above: Order Comment: Speci men Type: BLOOD SPECIMEN Ordering Facility: [facility] Address: [address] [place] [address] Performed By: #### 5 7021-8 #### [facility] CLIA [id number] [address] [place] [address] 30679 Nucleated RBC (Bld) [#/Vol] 10*3/uL Normal <0.01 [facility] Comment on above: Order Comment: Speci men Type: BLOOD SPECIMEN Ordering Facility: [facility] Address: [address] [place] [address] Performed By: #### 5 7021-8 #### [facility] CLIA [id number] [address] [place] [address] 87412 Nucleated RBC/100 WBC (Bld) [Ratio] 0.0 /100 WBC Normal [facility] Comment on above: Order Comment: Speci men Type: BLOOD SPECIMEN Ordering Facility: [facility] Address: [address] [place] [address] Performed By: #### 5 7021-8 #### [facility] CLIA [id number] [address] [place] [address] 91881 Platelet mean volume (Bld) [Entitic vol] 9.6 fL Normal 9.0-12.7 [facility] Comment on above: Order Comment: Speci men Type: BLOOD SPECIMEN Ordering Facility: [facility] Address: [address] [place] [address] Performed By: #### 5 7021-8 #### [facility] CLIA [id number] [address] [place] [address] Platelets (Bld) [#/Vol] 248 10*3/uL Normal 150-400 [facility] Comment on above: Order Comment: Speci men Type: BLOOD SPECIMEN Ordering Facility: [facility] Address: [address] [place], [place] [address] Performed By: #### 5 7021-8 #### [facility] CLIA [id number] [address] [place] [address] 56038 RBC (Bld) [#/Vol] 5.41 10*6/uL High 3.90-5.20 [facility] Comment on above: Order Comment: Speci men Type: BLOOD SPECIMEN Ordering Facility: [facility] Address: [address] [place] [address] Performed By: #### 5 7021-8 #### [facility] CLIA [id number] [address] [place] [address] 25867 WBC (Bld) [#/Vol] 7.75 10*3/uL Normal 3.70-11.00 [facility] Comment on above: Order Comment: Speci men Type: BLOOD SPECIMEN Ordering Facility: [facility] Address: [address] [place] [address] Performed By: #### 5 7021-8 #### [facility] CLIA [id number] [address] [place] [address] 63587 T3 SerPl-mCncon 02-01-2023 T3 [Mass/Vol] 123 ng/dL Normal 79-165 [facility] Comment on above: Order Comment: Speci men Type: BLOOD SPECIMEN Ordering Facility: [facility] Address: [address] [place] [address] Performed By: #### 3 053-6, 3016-3, 3026-2 #### [facility] CLIA [id number] [address] [facility] [id number] [id number] [place] T4 SerPl-mCncon 02-01-2023 T4 [Mass/Vol] 11.9 ug/dL High 5.5-10.2 [facility] Comment on above: Order Comment: Speci kishor Type: BLOOD SPECIMEN Ordering Facility: [facility] Address: [address] [place] [address] Performed By: #### 3 053-6, 3016-3, 3026-2 #### [facility] CLIA [id number] [address] [facility] [id number] [facility] THYROGLOBULIN BY MASS SPECTR [facility] 02-01-2023 THYROGLOBULIN, LC-MS/MS <0.5 Low 1.3-31.8 [facility] Comment on above: Order Comment: Chel iverson Type: BLOOD SPECIMEN Ordering Facility: [facility] Address: [place] [address] Result Comment: Results obtained with different test [...] developed and its performance characteristics determined by [facility]. It has not been cleared or approved by the [place] Food and Drug Administration. This test was performed in a CLIA certified laboratory and is intended for clinical purposes. Performed By: [facility] [address] [place] [address] Routing Equipment Tender: Prem Willis MD, PhD CLIA Number: [id number] Performed By: #### T [facility] #### [facility] CLIA [id number] [address] [place] [address] T[facility] 02-01-2023 TSH Qn 0.960 m[IU]/L Normal 0.270-4.200 [facility] Comment on above: Order Comment: Chel iverson Type: BLOOD SPECIMEN Ordering Facility: [facility] Address: [address] [place] [address] Result Comment: If t he patient is , TSH reference range varies by gestational period: First Trimester (weeks 9-12): 0.180-2.990 mIU/L Second Trimester: 0.110-3.980 mIU/L Third Trimester: 0.480-4.710 mIU/L Suman Graf et al. A Practical Approach for the Verifications and Determination of Site- and Trimester-Specific Reference Intervals for Thyroid Function tests in . Thyroid, 2019:29:3:412-420. Rajesh E, et al. 2017 Guidelines of the [place] [employer] for the Diagnosis and Management of Thyroid Disease during and the . Thyroid, 2017:27:3:315-389. Performed By: #### 3 053-6, 3016-3, 3026-2 #### [facility] CLIA [id number] [address] [place] [address] [place] PREG QUANT HCGon 08-17-2022 HCG QUANT 1 mIU/mL Normal [facility] Comment on above: Performed By: #### P REGQNT #### [facility] [address] [place] [address] Dr. Prashant Kang HCG RANGE SEE BELOW Normal [facility] Comment on above: Result Comment: 5-50 0.2-1 WEEK 50-500 1-2 WEEKS 100-5,000 2-3 WEEKS 500-10,000 3-4 WEEKS 1,000-50,000 4-5 WEEKS 10,000-100,000 5-6 WEEKS 15,000-200,000 6-8 WEEKS 10,000-100,000 2-3 MONTHS Performed By: #### P REGQNT #### [facility] [address] [place] [address] Dr. Prashant Kang PREG QUANT HCGon 07-04-2022 HCG QUANT <1 Normal [facility] Comment on above: Performed By: #### P REGQNT #### [facility] [address] [place] [address] Dr. Prashant Kang HCG RANGE SEE BELOW Normal [facility] Comment on above: Result Comment: 5-50 0.2-1 WEEK 50-500 1-2 WEEKS 100-5,000 2-3 WEEKS 500-10,000 3-4 WEEKS 1,000-50,000 4-5 WEEKS 10,000-100,000 5-6 WEEKS 15,000-200,000 6-8 WEEKS 10,000-100,000 2-3 MONTHS Performed By: #### P REGQNT #### [facility] [address] [place] [address] Dr. Prashant Kang PREG QUANT HCGon 05-16-2022 HCG QUANT <1 Normal [facility] Comment on above: Performed By: #### P TT, PT #### [facility] [address] [place] [address] Dr. Prashant Kang HCG RANGE SEE BELOW Normal [facility] Comment on above: Result Comment: 5-50 0.2-1 WEEK 50-500 1-2 WEEKS 100-5,000 2-3 WEEKS 500-10,000 3-4 WEEKS 1,000-50,000 4-5 WEEKS 10,000-100,000 5-6 WEEKS 15,000-200,000 6-8 WEEKS 10,000-100,000 2-3 MONTHS Performed By: #### P TT, PT #### [facility] [address] [place] [address] Dr. Prashant Kang PREG QUANT HCGon 05-08-2022 HCG QUANT <1 Normal [facility] Comment on above: Performed By: #### P REGQNT #### [facility] [address] [place] [address] Dr. Prashant Kang HCG RANGE SEE BELOW Normal [facility] Comment on above: Result Comment: 5-50 0.2-1 WEEK 50-500 1-2 WEEKS 100-5,000 2-3 WEEKS 500-10,000 3-4 WEEKS 1,000-50,000 4-5 WEEKS 10,000-100,000 5-6 WEEKS 15,000-200,000 6-8 WEEKS 10,000-100,000 2-3 MONTHS Performed By: #### P REGQNT #### [facility] [address] [place] [address] Dr. Prashant Kang CALCIUMon 03-08-2022 Calcium [Mass/Vol] 8.6 mg/dL Normal 8.5-10.1 [facility] Comment on above: Performed By: #### C A #### [facility] [address] [address] [address] Prashant Kang CALCIUMon 03-07-2022 Calcium [Mass/Vol] 8.4 mg/dL Critically low 8.5-10.1 [facility] Comment on above: Performed By: #### C A #### [facility] [address] [id number] Prashant Kang PREG HCG QUALon 03-07-2022 , QUAL Negative Normal NEGATIVE [facility] Comment on above: Performed By: #### P REG #### [facility] [address] [address] [address] Prashant Kang Covid-19 PCR (CVDTB)on SARS-CoV-2 (COVID-19) RNA DENEEN+probe Ql (Unsp spec) Not detected Normal NOT DETECTED [facility] Comment on above: Result Comment: This test is not yet approved or cleared by the [place] FDA. When there are no FDA-approved or cleared tests available, and other criteria are met, FDA can make tests available under an emergency access mechanism called an Emergency Use Authorization (EUA). The EUA for this test is supported by the Forensic Specialist of Health and Human Service's (HHS's) declaration [...] SARS-CoV-2. Performed By: #### C VDTBH #### [facility] [address] [place] [address] Dr. Prashant Kang CALCIUMon 02-24-2022 Calcium [Mass/Vol] 8.8 mg/dL Normal 8.5-10.1 [facility] Comment on above: Performed By: #### P TT, PT #### [facility] [address] [place] [address] Dr. Prashant Kang CBC AUTO DIFFon 02-24-2022 BASO # 0.0 103/ul Normal 0.0-0.1 [facility] Comment on above: Performed By: #### P TT, PT #### [facility] [address] [place] [address] Dr. Prashant Kang Basophils/100 WBC (Bld) 0.3 % Normal 0.2-2.0 [facility] Comment on above: Performed By: #### P TT, PT #### [facility] [address] [place] [address] Dr. Prashant Kang EO # 0.1 103/ul Normal 0.0-0.7 [facility] Comment on above: Performed By: #### P TT, PT #### [facility] [address] [place] [address] Dr. Prashant Kang Eosinophils/100 WBC (Bld) 1.5 % Normal 0.9-7.0 [facility] Comment on above: Performed By: #### P TT, PT #### [facility] [address] [place] [address] Dr. Prashant Kang Erythrocyte distribution width (RBC) [Ratio] 13.8 % Normal 11.0-15.0 [facility] Comment on above: Performed By: #### P TT, PT #### [facility] [address] [place] [address] Dr. Prashant Kang Hematocrit (Bld) [Volume fraction] 45.5 % Normal 36.0-48.0 [facility] Comment on above: Performed By: #### P TT, PT #### [facility] [address] [place] [address] Dr. Prashant Kang Hemoglobin (Bld) [Mass/Vol] 14.6 g/dL Normal 12.0-16.0 [facility] Comment on above: Performed By: #### P TT, PT #### [facility] [address] [place] [address] Dr. Prashant Kang IG # 0.02 10e3/ul Normal 0.00-0.03 [facility] Comment on above: Performed By: #### P TT, PT #### [facility] [address] [place] [address] Dr. Prashant Kang IG % 0.3 % Normal 0.0-0.5 [facility] Comment on above: Performed By: #### P TT, PT #### [facility] [address] [place] [address] Dr. Prashant Kang LYMPH # 1.6 103/ul Normal 1.2-3.8 [facility] Comment on above: Performed By: #### P TT, PT #### [facility] [address] [place] [address] Dr. Prashant Kang Lymphocytes/100 WBC (Bld) 23.5 % Normal 20.5-60.0 [facility] Comment on above: Performed By: #### P TT, PT #### [facility] [address] [place] [address] Dr. Prashant Kang MANUAL DIFF REQ NO Normal [facility] Comment on above: Performed By: #### P TT, PT #### [facility] [address] [place] [address] Dr. Prashant Kang MCH (RBC) [Entitic mass] 26.5 pg Critically low 26.7-34.0 [facility] Comment on above: Performed By: #### P TT, PT #### [facility] [address] [place] [address] Dr. Prashant Kang MCHC (RBC) [Mass/Vol] 32.1 g/dL Normal 29.9-35.2 [facility] [facility] Comment on above: Performed By: #### P TT, PT #### [facility] [address] [place] [address] Dr. Prashant Kang MCV (RBC) [Entitic vol] 82.7 fL Normal 81.0-99.0 [facility] Comment on above: Performed By: #### P TT, PT #### [facility] [address] [place] [address] Dr. Prashant Kang MONO # 0.5 103/ul Normal 0.3-0.8 [facility] Comment on above: Performed By: #### P TT, PT #### [facility] [address] [place] [address] Dr. Prashant Kang Monocytes/100 WBC (Bld) 7.5 % Normal 1.7-12.0 [facility] Comment on above: Performed By: #### P TT, PT #### [facility] [address] [place] [address] Dr. Prashant Kang NEUT # 4.6 103/ul Normal 1.4-6.5 [facility] Comment on above: Performed By: #### P TT, PT #### [facility] [address] [place] [address] Dr. Prashant Kang Neutrophils/100 WBC (Bld) 66.9 % Normal 43.0-75.0 [facility] Comment on above: Performed By: #### P TT, PT #### [facility] [address] [place] [address] Dr. Prashant Kang Platelet mean volume (Bld) [Entitic vol] 9.9 fL Normal 9.5-13.5 [facility] Comment on above: Performed By: #### P TT, PT #### [facility] [address] [place] [address] Dr. Prashant Kang PLT 239 103/ul Normal 150-450 [facility] Comment on above: Performed By: #### P TT, PT #### [facility] [address] [place] [address] Dr. Prashant Kang RBC 5.50 106/ul Critically high 4.20-5.40 [facility] Comment on above: Performed By: #### P TT, PT #### [facility] [address] [place] [address] Dr. Prashant Kang WBC 6.8 103/ul Normal 4.0-11.0 [facility] Comment on above: Performed By: #### P TT, PT #### [facility] [address] [place] [address] Dr. Prashant Kang MAGNESIUMon 02-24-2022 Magnesium [Mass/Vol] 2.0 mg/dL Normal 1.8-2.4 [facility] Comment on above: Performed By: #### P TT, PT #### [facility] [address] [place] [address] Dr. Prashant Kang PHOSPHORUSon 02-24-2022 Phosphate [Mass/Vol] 3.3 mg/dL Normal 2.6-4.7 [facility] Comment on above: Performed By: #### P TT, PT #### [facility] [address] [place] [address] Dr. Prashant Kang PROTIMEon 02-24-2022 INR Coag (PPP) [Relative time] 1.01 {INR} Normal [facility] Comment on above: Performed By: #### P TT, PT #### [facility] [address] [place] [address] Dr. Prashant Kang INR GUIDELINES SEE BELOW Normal [facility] Comment on above: Result Comment: SALIMA RED INR: 2.0 - 3.0 CONDITIONS NOT LISTED BELOW 2.5 - 3.5 FOR PROSTHETIC HEART VALVE REPLACEMENT 2.5 - 3.5 RECURRENT THROMBOSIS Performed By: #### P TT, PT #### [facility] [address] [place] [address] Dr. Prashant Kang PT Coag (PPP) [Time] 10.9 s Normal 9.0-11.6 [facility] Comment on above: Performed By: #### P TT, PT #### [facility] [address] [place] [address] Dr. Prashant Kang PTTon 02-24-2022 aPTT Coag (Bld) [Time] 28.9 s Normal 22.3-36.2 [facility] Comment on above: Performed By: #### P TT, PT #### [facility] [address] [place] [address] Dr. Prashant Kang TSHon 02-24-2022 TSH 1.163 uIU/mL Normal 0.358-3.740 [facility] Comment on above: Performed By: #### P TT, PT #### [facility] [address] [place], [place] [address] Dr. Prashant Kang US THYROID FN ASP BXon 02-09 US THYROID FN ASP BX Begin Addendum #1 COLLECTED DATE/TIME: 02/03/2022 11:36 EDT Final Diagnosis Report for [facility] [place] (A/B) THYROID ISTHMUS NODULE, FINE NEEDLE [...] 2. Pathology results are pending. Normal [facility] CT NECK ST W CONon 2 CT [...] SHAILESH EMERY Date: 2022-01-20 13:05 Normal [facility] US THYROIDon 01-20-2022 US THYROID EXAMINATION: US [...] isthmus nodule. Consider fine-needle aspiration TI-RADS: The [employer] TI-RADS committee's white paper recommendations for thyroid lesions classified as TR4 (moderately suspicious) are listed below: > 1.0 cm. Follow-up ultrasound in 1, 2, 3, and 5 years. > 1.5 cm. FNA. J. Am More Radiol 2017;[id number]. Electronically authenticated by: SHAILESH EMERY Date: 2022-01-20 21:46 Normal [facility] CBC AUTO DIFFon 01-08-2022 BASO # 0.0 103/ul Normal 0.0-0.1 [facility] Comment on above: Performed By: #### P TT, PT #### [facility] [address] [place] [address] Dr. Prashant Kang Basophils/100 WBC (Bld) 0.4 % Normal 0.2-2.0 [facility] Comment on above: Performed By: #### P TT, PT #### [facility] [address] [place] [address] [address] Prashant Kang EO # 0.2 103/ul Normal 0.0-0.7 [facility] Comment on above: Performed By: #### P TT, PT #### [facility] [address] [place] [address] Dr. Prashant Kang Eosinophils/100 WBC (Bld) 3.4 % Normal 0.9-7.0 [facility] Comment on above: Performed By: #### P TT, PT #### [facility] [address] [place] [address] Dr. Prashant Kang Erythrocyte distribution width (RBC) [Ratio] 14.6 % Normal 11.0-15.0 [facility] Comment on above: Performed By: #### P TT, PT #### [facility] [address] [place] [address] Dr. Prashant Kang Hematocrit (Bld) [Volume fraction] 42.9 % Normal 36.0-48.0 [facility] Comment on above: Performed By: #### P TT, PT #### [facility] [address] [place] [address] Dr. Prashant Kang Hemoglobin (Bld) [Mass/Vol] 13.4 g/dL Normal 12.0-16.0 [facility] Comment on above: Performed By: #### P TT, PT #### [facility] [address] [place] [address] Dr. Prashant Kang IG # 0.02 10e3/ul Normal 0.00-0.03 [facility] Comment on above: Performed By: #### P TT, PT #### [facility] [address] [place] [address] Dr. Prashant Kang IG % 0.3 % Normal 0.0-0.5 [facility] Comment on above: Performed By: #### P TT, PT #### [facility] [address] [place] [address] Dr. Prashant Kang LYMPH # 2.0 103/ul Normal 1.2-3.8 [facility] Comment on above: Performed By: #### P TT, PT #### [facility] [address] [place] [address] Dr. Prashant Kang Lymphocytes/100 WBC (Bld) 29.7 % Normal 20.5-60.0 [facility] Comment on above: Performed By: #### P TT, PT #### [facility] [address] [place] [address] Dr. Prashant Kang MANUAL DIFF REQ NO Normal [facility] Comment on above: Performed By: #### P TT, PT #### [facility] [address] [place] [address] Dr. Prashant Kang MCH (RBC) [Entitic mass] 26.3 pg Critically low 26.7-34.0 [facility] Comment on above: Performed By: #### P TT, PT #### [facility] [address] [place] [address] Dr. Prashant Kang MCHC (RBC) [Mass/Vol] 31.2 g/dL Normal 29.9-35.2 [facility] Comment on above: Performed By: #### P TT, PT #### [facility] [address] [place] [address] Dr. Prashant Kang MCV (RBC) [Entitic vol] 84.1 fL Normal 81.0-99.0 [facility] Comment on above: Performed By: #### P TT, PT #### [facility] [address] [place] [address] Dr. Prashant Kang MONO # 0.6 103/ul Normal 0.3-0.8 [facility] Comment on above: Performed By: #### P TT, PT #### [facility] [address] [place] [address] Dr. Prashant Kang Monocytes/100 WBC (Bld) 8.7 % Normal 1.7-12.0 [facility] Comment on above: Performed By: #### P TT, PT #### [facility] [address] [place] [address] Dr. Prashant Kang NEUT # 3.9 103/ul Normal 1.4-6.5 [facility] Comment on above: Performed By: #### P TT, PT #### [facility] [address] [place] [address] Dr. Prashant Kang Neutrophils/100 WBC (Bld) 57.5 % Normal 43.0-75.0 [facility] Comment on above: Performed By: #### P TT, PT #### [facility] [address] [place] [address] Dr. Prashant Kang Platelet mean volume (Bld) [Entitic vol] 9.9 fL Normal 9.5-13.5 [facility] Comment on above: Performed By: #### P TT, PT #### [facility] [address] [place] [address] Dr. Prashant Kang PLT 241 103/ul Normal 150-450 [facility] Comment on above: Performed By: #### P TT, PT #### [facility] [address] [place] [address] Dr. Prashant Kang RBC 5.10 106/ul Normal 4.20-5.40 [facility] Comment on above: Performed By: #### P TT, PT #### [facility] [address] [place] [address] Dr. Prashant Kang WBC 6.8 103/ul Normal 4.0-11.0 [facility] Comment on above: Performed By: #### P TT, PT #### [facility] [address] [place] [address] Dr. Prashant Kang GROUP A STREP CULTUREon 12-29 S. pyogenes Ag Ql (Unsp spec) Culture Observations: NEGATIVE FOR GROUP A STREPTOCOCCUS. Normal [facility] Comment on above: Performed By: #### P TT, PT #### [facility] [address] [place] [address] Dr. Prashant Kang PROF 14(COMP METB)on 022 Albumin [Mass/Vol] 3.6 g/dL Normal 3.4-5.0 [facility] Comment on above: Performed By: #### C MP #### [facility] [address] [place] [address] Dr. Prashant Kang Albumin/Globulin [Mass ratio] 0.8 {ratio} Normal [facility] Comment on above: Performed By: #### C MP #### [facility] [address] [place] [address] Dr. Prashant Kang ALP [Catalytic activity/Vol] 74 U/L Normal 46-116 [facility] Comment on above: Performed By: #### C MP #### [facility] [address] [place] [address] [address] Prashant Kang ALT [Catalytic activity/Vol] 40 U/L Normal 14-59 [facility] Comment on above: Performed By: #### C MP #### [facility] [address] [place] [address] [address] Prashant Kang Anion gap [Moles/Vol] 14.0 mmol/L Normal [facility] Comment on above: Performed By: #### C MP #### [facility] [address] [place] [address] [address] Prashant Kang AST [Catalytic activity/Vol] 31 U/L Normal 15-37 [facility] Comment on above: Performed By: #### C MP #### [facility] [address] [place] [address] Dr. Prashant Kang Bilirubin [Mass/Vol] 0.4 mg/dL Normal 0.2-1.0 [facility] Comment on above: Performed By: #### C MP #### [facility] [address] [place] [address] Dr. Prashant Kang Calcium [Mass/Vol] 8.8 mg/dL Normal 8.5-10.1 [facility] Comment on above: Performed By: #### C MP #### [facility] [address] [place] [address] Dr. Prashant Kang Chloride [Moles/Vol] 105 mmol/L Normal 98-107 [facility] Comment on above: Performed By: #### C MP #### [facility] [address] [place] [address] [address] Prashant Kang CO2 [Moles/Vol] 26.6 mmol/L Normal 21.0-32.0 [facility] Comment on above: Performed By: #### C MP #### [facility] [address] [place] [address] Dr. Prashant Kang Creatinine [Mass/Vol] 0.80 mg/dL Normal 0.55-1.02 [facility] Comment on above: Performed By: #### C MP #### [facility] [address] [place] [address] Dr. Prashant Kang EGFR-AF MAURITANIAN >60 Normal >=60 [facility] Comment on above: Performed By: #### C MP #### [facility] [address] [place] [address] [address] Prashant Kang EGFR-NON AF MAURITANIAN >60 Normal >=60 [facility] Comment on above: Performed By: #### C MP #### [facility] [address] [place] [address] [address] Prashant Kang Globulin (S) [Mass/Vol] 4.3 g/dL Normal [facility] Comment on above: Performed By: #### C MP #### [facility] [address] [place] [address] [address] Prashant Kang Glucose [Mass/Vol] 101 mg/dL Normal 74-106 [facility] Comment on above: Performed By: #### C MP #### [facility] [address] [place] [address] [address] Prashant Kang Potassium [Moles/Vol] 4.6 mmol/L Normal 3.5-5.1 [facility] Comment on above: Performed By: #### C MP #### [facility] [address] [place] [address] Dr. Prashant Kang Protein [Mass/Vol] 7.9 g/dL Normal 6.4-8.2 [facility] Comment on above: Performed By: #### C MP #### [facility] [address] [place] [address] [address] Prashant Kang Sodium [Moles/Vol] 141 mmol/L Normal 136-145 [facility] Comment on above: Performed By: #### C MP #### [facility] [address] [place] [address] [address] Prashant Kang Urea nitrogen [Mass/Vol] 11.0 mg/dL Normal 7.0-18.0 [facility] Comment on above: Performed By: #### C MP #### [facility] [address] [place] [address] [address] Prashant Kang Urea nitrogen/Creatinine [Mass ratio] 13.8 mg/mg Normal [facility] Comment on above: Performed By: #### C MP #### [facility] [address] [place], [place] [address] Dr. Prashant Kang STREPT SCREENon 01-08-2022 STREP SCREEN A Negative Normal NEGATIVE [facility] Comment on above: Performed By: #### P TT, PT #### [facility] [address] [place], [place] [address] Dr. Prashant Kang XR NECK SOFT TISSUEon [...] MIKE BARNETT Date: 2022-01-08 04:43 Normal [facility] Covid-19 PCR (CVDTBH)on SARS-CoV-2 (COVID-19) RNA DENEEN+probe Ql (Unsp spec) Not detected Normal NOT DETECTED [facility] Comment on above: Result Comment: This test is not yet approved or cleared by the [place] FDA. When there are no FDA-approved or cleared tests available, and other criteria are met, FDA can make tests available under an emergency access mechanism called an Emergency Use Authorization (EUA). The EUA for this test is supported by the Forensic Specialist of Health and Human Service's (HHS's) declaration [...] Performed By: #### P TT, PT #### [facility] [address] [place] [address] Dr. Prashant Kang Vital Signs Date Time Vital Sign Value Performing Clinician Donta coleman 02-25-2024 14:08-0400 Body mass index (BMI) [Ratio] 39.87 kg/m2 Kim YAO Work Phone: [facility] 02-25-2024 14:08-0400 Body weight 98.88 kg Kim YAO Work Phone: [facility] 02-25-2024 14:08-0400 Diastolic blood pressure 70 mm[Hg] Kim YAO Work Phone: [facility] 02-25-2024 14:08-0400 Systolic blood pressure 114 mm[Hg] Kim YAO Work Phone: [facility] 02-11-2024 11:10-0400 Body mass index (BMI) [Ratio] 40.2 kg/m2 Acosta Shania DO Work Phone: [facility] 02-11-2024 11:10-0400 Body weight 99.7 kg Acosta Shania DO Work Phone: [facility] 02-11-2024 11:10-0400 Diastolic blood pressure 64 mm[Hg] Acosta Shania DO Work Phone: [facility] 02-11-2024 11:10-0400 Systolic blood pressure 112 mm[Hg] Acosta Shania DO Work Phone: [facility] 06-12-2023 13:54-0500 Body mass index (BMI) [Ratio] 40.6 kg/m2 Acosta Shania DO Work Phone: [facility] 06-12-2023 13:54-0500 Body weight 100.7 kg Acosta Shania DO Work Phone: [facility] 06-12-2023 13:54-0500 Diastolic blood pressure 74 mm[Hg] Acosta Shania DO Work Phone: [facility] 06-12-2023 13:54-0500 Systolic blood pressure 118 mm[Hg] Acosta Jauregui DO Work Phone: [facility] 05-04-2022 09:40-0500 Body temperature 97.2 [degF] JONNY Garcia MD Work Phone: [facility] 05-04-2022 09:40-0500 Body weight 88.81 kg JONNY Garcia MD Work Phone: [facility] 05-04-2022 09:40-0500 Diastolic blood pressure 73 mm[Hg] JONNY Garcia MD Work Phone: [facility] 05-04-2022 09:40-0500 Heart rate 67 /min JONNY Garcia MD Work Phone: [facility] 05-04-2022 09:40-0500 Respiratory rate 16 /min JONNY Garcia MD Work Phone: [facility] 05-04-2022 09:40-0500 SaO2% (BldA) [Mass fraction] 100 % JONNY Garcia MD Work Phone: [facility] 05-04-2022 09:40-0500 Systolic blood pressure 113 mm[Hg] JONNY Garcia MD Work Phone: [facility] Encounters Encounter Date Encounter Type Care Provider Facility Start: 02-26-2024 End: 02-26-2024 Patient encounter procedure [facility] Comment on above: 24 weeks gestation o f ; Food insecurity Start: 02-25-2024 End: 02-25-2024 Bamboo flowsheet Kim YAO Work Phone: [facility] Start: 02-25-2024 End: 02-25-2024 Bamboo flowsheet Kim YAO Work Phone: [facility] Start: 02-25-2024 End: 02-25-2024 Office outpatient visit 15 minutes Kim YAO Work Phone: [facility] Comment on above: Third trimester preg yogesh; 31 weeks gestation of ; Thyroid disease (CMS/HCC) Start: 02-25-2024 End: 02-25-2024 ambulatory KIM MCKEON Not Available Start: 02-11-2024 End: 02-11-2024 Bamboo flowsheet Acosta Shania DO Work Phone: [facility] Start: 02-11-2024 End: 02-11-2024 Bamboo flowsheet Acosta Shania DO Work Phone: [facility] Start: 02-11-2024 End: 02-11-2024 Office outpatient visit 15 minutes Acosta Shania DO Work Phone: [facility] Comment on above: Third trimester preg yogesh; Thyroid disease (CMS/HCC); 29 weeks gestation of ; History of placental abruption; Non compliance w medication regimen Start: 02-11-2024 End: 02-11-2024 ambulatory ACOSTA SHANIA Not Available Start: 02-08-2024 End: 02-08-2024 Clinisync Result Encounter Acosta Shania DO Work Phone: [facility] External Department Unsolicited Start: 02-08-2024 End: 02-08-2024 Clinisync Result Encounter Acosta Shania DO Work Phone: [facility] External Department Unsolicited Start: 01-23-2024 End: 01-24-2024 Telephone encounter Arslan Garcia MD Work Phone: [facility] Comment on above: Patient Question Start: 01-14-2024 End: 01-14-2024 ambulatory ACOSTA SHANIA Not Available Start: 01-11-2024 End: 01-11-2024 ambulatory ACOSTA R SHANIA [facility] Start: 12-17-2023 End: 12-17-2023 ambulatory ACOSTA [...] 15 minutes Acosta Shania DO Work Phone: [facility] Comment on above: Missed menses; Amenorrhea Start: 06-12-2023 End: 06-12-2023 ambulatory ACOSTA SHANIA Not Available Start: 02-14-2023 Telephone encounter [facility]sl[facility] Comment on above: Appointment Confirma tion Start: 02-08-2023 End: 02-08-2023 ambulatory SARA MEDELLIN Facility:[facility] Start: 02-01-2023 End: 02-01-2023 ambulatory SARA MEDELLIN Facility:[facility] Start: 11-09-2022 Telephone encounter Arslan Garcia MD [facility] Comment on above: Appointment Confirma [...] Start: 04-20-2022 Patient encounter procedure [facility] Provider [facility] Department Start: 04-11-2022 End: 04-11-2022 Patient encounter procedure Lab/[place] Work Phone: Radiation Oncology Comment on above: Thyroid cancer (HCC) (Primary Dx) Start: 03-09-2022 Encounter for preprocedural laboratory examination DR CHARLIE EASTMAN [facility] Start: 03-07-2022 End: 03-08-[address] [...] Adult BMI Screening Adult BMI Screen ing [facility] Start: 01-10-2025 Tobacco Screening Tobacco Screening [facility] Start: 03-10-2024 End: 03-10-2024 Patient encounter procedure 03/10/2024 1:00 PM EST Routine [facility] [address] [place] [address] ShaniaAcosta saravia, DO [address] [place], [place] [id number] [facility] Start: 02-25-2024 End: 02-24-2025 [...] placental abruption Expected: 02/11/2024 (Approximate), Expires: 02/10/2025 [facility] Work Phone: Comment on above: Expected: 02/11/2024 (Approximate), Expires: 02/10/2025 Start: 02-11-2024 End: 02-10-2025 US for US OB SCAN FOR GROWTH Imaging Routine Thyroid disease (CMS/HCC) 29 weeks gestation of History of placental abruption Expected: 02/11/2024 (Approximate), Expires: 02/10/2025 [facility] Comment on above: Expected: 02/11/2024 (Approximate), Expires: 02/10/2025 Start: 02-11-2024 End: 02-11-2024 Patient encounter procedure [facility] Comment on above: [facility] Start: 12-30-2023 Covid-19 Vaccine ( season) Covid-19 Vaccine () [facility] Start: 12-30-2023 Influenza vaccination [facility] Start: 08-15-2023 End: 11-14-2023 Thyroglobulin and Thyrogobulin Ab panel - Serum or Plasma THYROGLOBULIN, SERUM WITH REFLEX TO [place] OR LC-MS/MS Lab Routine Thyroid cancer (HCC) Expected: 08/15/2023, Expires: 11/14/2023 [facility] Work Phone: Comment on above: Expected: 08/15/2023 , Expires: 11/14/2023 Start: 08-15-2023 End: 11-14-2023 Thyrotropin [Units/volume] in Serum or Plasma THYROID STIMULATING HORMONE Lab Routine Thyroid cancer (HCC) Expected: 08/15/2023, Expires: 11/14/2023 [facility] Work Phone: Comment on above: Expected: 08/15/2023 , Expires: 11/14/2023 Start: 08-15-2023 End: 11-14-2023 Thyroxine (T4) [Mass/volume] in Serum or Plasma T4/THYROXINE Lab Routine Thyroid cancer (HCC) Expected: 08/15/2023, Expires: 11/14/2023 [facility] Work Phone: Comment on above: Expected: 08/15/2023 , Expires: 11/14/2023 Start: 06-26-2023 End: 06-26-2023 Professional / ancillary services management 06/26/2023 1:00 PM EST Ancillary Procedure [facility] [address] [place] [address] [facility] Start: 06-12-2023 End: 06-12-2024 US for US PELVIS-TRANSVAG IF INDICATED Imaging Routine Amenorrhea Expected: 06/12/2023 (Approximate), Expires: 06/12/2024 [facility] Comment on above: Expected: 06/12/2023 (Approximate), Expires: 06/12/2024 Start: 04-30-2023 Behavioral Health Screening Behavioral Health Screening [facility] Start: 04-30-2023 Depression Assessment Depression Ass essment [facility] Start: 12-29-2022 Covid-19 Vaccine ( season) Covid-19 Vaccine () [facility] Start: 12-29-2022 Influenza vaccination [facility] Start: 07-02-2022 End: 09-01-2022 THYROGLOBULIN BY MASS SPECTROMETRY THYROGLOBULIN BY MASS SPECTROMETRY Lab Routine Thyroid cancer (HCC) Expected: 07/02/2022, Expires: 09/01/2022 [facility] Work Phone: Comment on above: Expected: 07/02/2022 , Expires: 09/01/2022 Start: 07-02-2022 End: 09-01-2022 Thyrotropin [Units/volume] in Serum or Plasma TSH BLD Lab Routine Thyroid cancer (HCC) Expected: 07/02/2022, Expires: 09/01/2022 [facility] Work Phone: Comment on above: Expected: 07/02/2022 , Expires: 09/01/2022 Start: 07-02-2022 End: 09-01-2022 Thyroxine (T4) [Mass/volume] in Serum or Plasma T4/THYROXINE BLOOD Lab Routine Thyroid cancer (HCC) Expected: 07/02/2022, Expires: 09/01/2022 [facility] Work Phone: Comment on above: Expected: 07/02/2022 , Expires: 09/01/2022 Start: 04-30-2022 [facility]PRESSION [facility] Start: 2022 HPV TESTING HPV TESTING [facility] Start: 2022 Screening for malign ant neoplasm of cervix HPV Testing [facility] Start: 12-29-2021 Influenza vaccination INFLUENZA (#1) [facility] Start: 04-30-2021 DEPRESSION ASSESSMENT [facility] Start: 2013 PAP TESTING PAP TESTING [facility] Start: 2013 Screening for malign ant neoplasm of cervix [facility] Start: 2011 DTaP,Tdap and Td Vaccines (1 - Tdap) DTaP,Tdap and Td Vaccines (1 - Tdap) [facility] Start: 2011 Hepatitis B Vaccine (1 of 3 - 19+ 3-dose series) Hepatitis B Vaccine (1 of 3 - 19+ 3-dose series) [facility] Start: 2011 Urine microalbumin profile [facility] Start: 2010 Adult BMI Follow Up Plan Adult BMI Follow Up Plan [facility] Start: 2010 Anxiety Screening Anxiety Screening [facility] Start: 2010 Depression Screening Depression Scre [facility] Start: 2010 HEPATITIS C SCREENING HEPATITIS C [facility] Start: 2010 Hepatitis C screening Hepatitis C [facility] Start: 2010 HIV SCREENING HIV SCREENING [facility] Start: 2010 HIV screening HIV Screening [facility] Start: 2004 Depression Screening Depression Scre ing [facility] Start: 1998 PNEUMOCOCCAL (1 - PCV) PNEUMOCOCCAL (1 - PCV) [facility] Start: 1998 Pneumococcal vaccination [facility] Start: 1992 COVID-19 VACCINE (#1) COVID-19 VACCI NE (#1) [facility] Start: 1992 HEPATITIS B (1 of 3 - 3-dose series) HEPATITIS B (1 of 3 - 3-dose series) [facility] Start: 1992 Hepatitis B Vaccine (1 of 3 - 3-dose series) Hepatitis B Vaccine (1 of 3 - 3-dose series) [facility] Start: 1992 Tobacco Counseling [facility] CBC W Auto Different ial panel - Blood CBC and differential Lab Routine Amenorrhea Ordered: 06/12/2023 [facility] Comment on above: Ordered: 06/12/2023 hCG, quantitative, hCG, quantitative, Lab Routine Amenorrhea Ordered: 06/12/2023 [facility] Comment on above: Ordered: 06/12/2023 Hemoglobin A1c measurement Hemoglobin A1c Lab Routine Amenorrhea Ordered: 06/12/2023 [facility] Comment on above: Ordered: 06/12/2023 Prolactin Prolactin Lab Ro utine Amenorrhea Ordered: 06/12/2023 [facility] Comment on above: Ordered: 06/12/2023 Thyrotropin [Units/volume] in Serum or Plasma TSH Lab Routine Amenorrhea Ordered: 06/12/2023 [facility] Work Phone: Comment on above: Ordered: 06/12/2023 [facility] Payers Date Payer Category Payer Medicaid HMO [employer] [id number] 2020 Medicaid [id number] 2020 Medicaid (Managed Care) [employer] [id number] 1992 Unknown [id number] 2.16.840.1.486186.3.579.2. 593 1992 Unknown [id number] 2.16.840.1.750894.3.579.2. 593 1992 Unknown [id number] 2.16.840.1.685620.3.579.2. 593 1992 Unknown [id number] 2.16.840.1.716666.3.579.2. 593 1992 Unknown [id number] 2.16.840.1.633017.3.579.2. 593 1992 Unknown [id number] 2.16.840.1.854595.3.579.2. 593 1992 Unknown [id number] 2.16.840.1.257495.3.579.2. 593 1992 Unknown [id number] 2.16.840.1.060725.3.579.2. 593 1992 Unknown [id number] 2.16.840.1.014055.3.579.2. 593 1992 Unknown [id number] 2.16.840.1.900043.3.579.2. 593 1992 Unknown [id number] 2.16.840.1.638329.3.579.2. 593 1992 Unknown [id number] 2.16.840.1.379801.3.579.2. 593 1992 Unknown [id number] 2.16.840.1.618210.3.579.2. 593 1992 Unknown [id number] 2.16.840.1.936371.3.579.2. 593 1992 Unknown [id number] 2.16.840.1.294685.3.579.2. 593 1992 Unknown [id number] 2.16.840.1.922789.3.579.2. 1286 1992 Unknown [id number] 2.16.840.1.925138.3.579.2. 1286 1992 Unknown [id number] 2.16.840.1.442152.3.579.2. 1259 1992 Unknown [id number] 2.16.840.1.593776.3.579.2. 1259 1992 Unknown [id number] 2.16.840.1.209046.3.579.2. 1259 1992 Unknown [id number] 2.16.840.1.254728.3.579.2. 1259 1992 Unknown [id number] 2.16.840.1.611970.3.579.2. 1259 1992 Unknown [id number] 2.16.840.1.875253.3.579.2. 1259 1992 Unknown [id number] 2.16.840.1.429814.3.579.2. 1259 1992 Unknown [id number] 2.16.840.1.042577.3.579.2. 9 1959 Unknown [id number] Social History Date Type Detail Facility Start: 04-11-2022 End: 12-20-2023 Tobacco smoking status IAIS Smokes tobacco daily [facility] History of tobacco use [facility]igarette [facility] Start: 06-10-2020 End: 04-11-2022 Cigarettes smoked current (pack per day) - Reported 1 [facility] Start: 04-11-2022 End: 12-20-2023 Tobacco use and exposure Smokeless tobacco non-user [facility] Start: 04-11-2022 End: 02-25-2024 Alcohol intake Current drinker of alcohol (finding) [facility] Start: 04-11-2022 Alcohol Comment socially Alysia [facility] Start: 1990 Sex Assigned At Not on file [facility] Start: 06-10-2020 End: 05-04-2022 Tobacco use panel [facility] Adult Depression Screening Assessment 0 [facility] Start: 10-03-2022 Alcohol Comment caffeine intak e: 1-2 cups per day [facility] Start: 1990 Sex Assigned At Female N [facility] Start: 10-04-2022 Gender identity Identifies as female gender (finding) [facility] Start: 08-06-2023 [facility] Start: 01-11-2024 Alcoholic beverage intake Ex-drinker (finding) [facility] Start: 08-26-2018 Sex Female (finding) [facility] Clinical Notes 03-07-2022 to 02-26-2024 Tawny Matthews - 02/26/2024 2:14 PM MAXIMILIAN Ramírez - 02/25/2024 1:50 PM Cesar Rader LPN - 02/11/2024 10:50 AM EDTTelephone Encounter - Irais Turpin LPN - 01/24/2024 3:36 PM EDT Note Date & Type Note Facility 02-26-2024 History of Present illness Narrative [facility] Patient visited the [facility] and received food documented in this encounter [facility] 02-25-2024 History of Present illness Narrative Reason [...] (CMS/HCC) Thyroid mass (CMS/HCC) 09/23/2022 Thyroid nodule ([facility] HISTORY PAST MEDICAL HISTORY SOCIAL HISTORY Past [...] of: MAXIMILIAN Lombardo documented in this encounter [facility] 02-11-2024 History of Present illness Narrative [...] nursing note reviewed. Exam conducted with a tablet making machine operator helper present. Vitals: Estimated body mass index is [...] Acosta Jauregui DO documented in this encounter [facility] 01-24-2024 Telephone encounter Note I notified Amanda of Dr. Garcia's response. She will call after she delivers in March 2024 to scheduled follow up. Irais Turpin RN [facility] 01-24-2024 Miscellaneous Notes I notified Amanda of Dr. Garcia's response. She will call after she delivers in March 2024 to scheduled follow up. Irais Turpin RN Amanda called stating she is currently and is being followed very closely by [facility] in [place] and her local [facility]. She states her high risk is d/t [...] Irais Turpin RN documented in this encounter [facility] 01-23-2024 Telephone encounter Note Aamnda called stating she is currently and is being followed very closely by [facility] in [place] and her local [facility]. She states her high risk is d/t [...] possible lab work? Thanks Irais Turpin RN [facility] 11-13-[address] Christine office received ref and they will be calling patient to schedule appointment. Records faxed to Dr. Arteaga. Lawanda elbert send records to [facility] dulce in your box Images from the original note were not included. Spoke to pt. She would like to see endocrinology in [place]. Pt's OB did adjust synthroid recently and has been monitoring labs. TREASURE- please sign pended order. PSS- please arrange visit when order is signed. KAREN Peters Tiffany Weyer, Angela, RN Previous Messages ----- Message ----- From: Arslan Garcia MD Sent: 11/02/2023 12:08 PM EDT To: Obi Dunlap; Carlos Nunez [facility] Nurse Pool Given what sounds like patient is in first trimester and ongoing concerns of breast-feeding recommend she follow-up with endocrinology. documented in this encounter [facility] 11-13-[address] Christine office received ref and they will be calling patient to schedule appointment. [facility] 11-12-2023 Telephone encounter Note Records faxed to Dr. Arteaga. [facility] 11-12-2023 Telephone encounter Note Lawanda please send records to [email or web address] in your box [facility] 11-12-2023 Telephone encounter Note Images from the original note were not included. Spoke to pt. She would like to see endocrinology in [place]. Pt's OB did adjust synthroid recently and has been monitoring labs. TREASURE- please sign pended order. PSS- please arrange visit when order is signed. KAREN Peters Tiffany Weyer, Angela, RN Previous Messages ----- Message ----- From: Arslan Garcia MD Sent: 11/02/2023 12:08 PM EDT To: Obi Dunlap; Carlos Nunez [facility] Nurse Mauro Given what sounds like patient is in first trimester and ongoing concerns of breast-feeding recommend she follow-up with endocrinology. [facility] 10-24-2023 Note HNO ID: [id number] Author: Arslan GARCIA MD Service: ? Author Type: Physician Type: Progress Notes Filed: 11/02/2023 12:08 Note Text: Unable to reach patient. [facility] 10-24-2023 History of Present illness Narrative Unable to reach patient. documented in this encounter [facility] 08-14-2023 Miscellaneous Notes TREASURE- please sign [...] Danna Pitts RN documented in this encounter [facility] 07-19-2023 Miscellaneous Notes Pt called to request labs sent to [facility]. Faxed to central scheduling. Edna Sal RN documented in this encounter [facility] 06-12-2023 History of Present illness Narrative [...] Acosta Jauregui DO documented in this encounter [facility] 02-14-2023 Miscellaneous Notes Images from the original note were not included. Patient is scheduled for appointments Arslan Garcia MD P [facility] [place]; Obi Genao 4 months with labs. Orders have been placed in epic. documented in this encounter [facility] 02-08-2023 Note HNO ID: [id number] Author: Arslan Garcia MD Service: ? Author [...] Time Spent: 6 minutes Arslan Garcia MD [facility] 11-09-2022 Miscellaneous Notes Images from the original note were not included. Patient is called and scheduled. Arslan Garcia MD [facility] Nurse [place]; Obi Genao 8 weeks with labs, orders placed, thank you documented in this encounter [facility] 07-17-2022 Miscellaneous Notes Appointment has been changed to phone appt. Tj Funez Pt called in requesting to be switched to a phone visit tomorrow. Her kids are on spring and a couple of them are sick. Labs have been done and resulted. PSS- please change to phone visit for tomorrow. Danna Pitts RN documented in this encounter [facility] 05-04-2022 History of Present illness Narrative Radiation Oncology - FollowupNote PATIENT NAME: Amanda Cortez PATIENT : 1990 DIAGNOSIS: Thyroid cancer, classic papillary thyroid carcinoma, status post total thyroidectomy and right neck exploration on 03/07/2022, stage I [id number]. HPI: Patient returns after further work-up and [...] and right neck exploration on 03/07/2022, stage [id number]. Patient does have significant thyroglobulin antibody however [...] for this encounter. documented in this encounter [facility] 04-25-2022 Miscellaneous Notes Patient had been rescheduled. Tj Funez Images from the original note were not included. Called patient to reschedule, LMOV. MD Jessica Jenkins [facility] [place]; Tj Funez Unable to reach please reschedule documented in this encounter [facility] 04-11-2022 Nurse Note Amanda Rojelio Cortez presents in office today for: Lab Draw during Office Visit . Ordering Provider: Felipe Garcia M.D. Test (s) ordered: TG Method for obtaining blood: Phlebotomy was performed, accessing right antecubital vein. Needle removed intact. Dressing secured. Patient denies discomfort, dizziness, light-headedness or weakness and left the department without assist. Danna Pitts, RN documented in this encounter [facility] 03-07-2022 Note OPERATIVE NOTE OPERATION DATE: [...] the recovery room in good condition. [facility] Evaluation note Diagnosis Thyroid cancer (HCC)- Primary Malignant neoplasm of thyroid gland [facility] Thyroid cancer ([facility])- Primary Malignant neoplasm of thyroid gland [facility] Diagnosis Missed menses Amenorrhea Absence of menstruation [facility] Thyroid [facility] (HCC)- Primary [...] of Food insecurity [facility] System[facility]ructionsNot on filedocumented in this encounter [facility] Summary Purpose Family History No Family [...] cancer (HCC) Procedures CONSULT TO ENDOCRINOLOGY OFFICE/OUTPATIENT [facility] 60 MINUTES Arslan Garcia MD [address] [place] [address] [place] [address] Referral ID Status Reason Start Date Expiration Date Visits Requested Visits Authorized [id number] Authorized PCP Requested Referral 11/12/2023 11/11/2024 1 1 Additional Source Comments Source Comments (unrecognize d section and content) In the event this informatio n is protected by the Federal Confidentiality of Alcohol and Drug Abuse Patient Records regulations: The Federal rules restrict any use of the information to criminally investigate or prosecute any alcohol or drug abuse patient.[facility] the event this information is protected by the Federal Confidentiality of Alcohol and Drug Abuse Patient Records regulations: The Federal rules restrict any use of the information to criminally investigate or prosecute any alcohol or drug abuse patient.[facility] the event this information is protected by the Federal Confidentiality of Alcohol and Drug Abuse Patient Records regulations: The Federal rules restrict any use of the information to criminally investigate or prosecute any alcohol or drug abuse patient.[facility] the event this information is protected by the Federal Confidentiality of Alcohol and Drug Abuse Patient Records regulations: The Federal rules restrict any use of the information to criminally investigate or prosecute any alcohol or drug abuse patient.[facility] the event this information is protected by the Federal Confidentiality of Alcohol and Drug Abuse Patient Records regulations: The Federal rules restrict any use of the information to criminally investigate or prosecute any alcohol or drug abuse patient.[facility] the event this information is protected by the Federal Confidentiality of Alcohol and Drug Abuse Patient Records regulations: The Federal rules restrict any use of the information to criminally investigate or prosecute any alcohol or drug abuse patient.[facility] the event this information is protected by the Federal Confidentiality of Alcohol and Drug Abuse Patient Records regulations: The Federal rules restrict any use of the information to criminally investigate or prosecute any alcohol or drug abuse patient.[facility] the event this information is protected by the Federal Confidentiality of Alcohol and Drug Abuse Patient Records regulations: The Federal rules restrict any use of the information to criminally investigate or prosecute any alcohol or drug abuse patient.[facility] the event this information is protected by the Federal Confidentiality of Alcohol and Drug Abuse Patient Records regulations: The Federal rules restrict any use of the information to criminally investigate or prosecute any alcohol or drug abuse patient.[facility] the event this information is protected by the Federal Confidentiality of Alcohol and Drug Abuse Patient Records regulations: The Federal rules restrict any use of the information to criminally investigate or prosecute any alcohol or drug abuse patient.[facility] the event this information is protected by the Federal Confidentiality of Alcohol and Drug Abuse Patient Records regulations: The Federal rules restrict any use of the information to criminally investigate or prosecute any alcohol or drug abuse patient.[facility] the event this information is protected by the Federal Confidentiality of Alcohol and Drug Abuse Patient Records regulations: The Federal rules restrict any use of the information to criminally investigate or prosecute any alcohol or drug abuse patient.[facility] Reason for Visit (unrecogniz ed section [...] Care Teams (unrecognized sec tion and content) Typewriter Tester Relationship Specialty Start Date End Date Sara Medellin MD [address] [place] [address] PCP - General Family Medicine 04/11/22 Typewriter Tester Relationship Specialty Start Date End Date Sara Medellin MD [address] [place] [address] PCP - General Family Medicine 04/11/22 Typewriter Tester Relationship Specialty Start Date End Date Sara Medellin MD [address] [place] [address] PCP - General Family Medicine 04/11/22 Typewriter Tester Relationship Specialty Start Date End Date Sara Medellin MD PCP - General Family Medicine 04/11/22 Typewriter Tester Relationship Specialty Start Date End Date Sara Medellin MD PCP - General Family Medicine 04/11/22 Typewriter Tester Relationship Specialty Start Date End Date Sara Medellin MD [address] [place] [address] PCP - General Family Medicine 10/03/22 Typewriter Tester Relationship Specialty Start Date End Date Sara Medellin MD PCP - General Family Medicine 04/11/22 Typewriter Tester Relationship Specialty Start Date End Date Sara Medellin MD PCP - General Family Medicine 04/11/22 Typewriter Tester Relationship Specialty Start Date End Date Sara Medellin MD PCP - General Family Medicine 04/11/22 Typewriter Tester Relationship Specialty Start Date End Date Sara Medellin MD [address] [place] [address] PCP - General Family Medicine 10/03/22 Typewriter Tester Relationship Specialty Start Date End Date Sara Medellin MD [address] [place] [address] PCP - General Family Medicine 10/03/22 Typewriter Tester Relationship Specialty Start Date End Date Sara Medellin MD [address] [facility] [place] [address] PCP - General Family Medicine 10/03/22 Typewriter Tester Relationship Specialty Start Date End Date Sara Medellin MD [address] [facility] [place] [address] PCP - General 01/10/24 INFORMATION SOURCE (unrecogn ized section and content) DATE CREATED AUTHOR 09/02/[address] [facility] DATE CREATED AUTHOR AUTHOR'S ORGANIZ ATION 01/11/2024 [facility] DATE CREATED AUTHOR AUTHOR'S ORGANIZ ATION 01/13/2024 [facility] DATE CREATED AUTHOR AUTHOR'S ORGANIZ ATION 02/26/2024 [facility] FOR RECORDS PERTAINING TO PATIENTS WHO [...] ON THE PRIMARY CLINICAL RECORDS. [facility] [employer] provides no warranty or guarantee of the accuracy or completeness of information in this document.
[2024-03-07 15:12] LABS: Thyroid Stimulating Hormone 4.715 uIU/mL (0.358-3.740)
== END 2024-03-07 14:30 | disposition home or self-care (01) ==
LOC: LAB 14:29
PROVIDERS: PCP Family Medicine; Visit Provider Physician Assistant
DX: E07.9 Disorder of thyroid, unspecified (principal)
CPT/HCPCS: 36415; 84443

== ENCOUNTER 2024-03-14 06:46 | Outpatient (OUT) | payer OTHER, SELFPAY ==
--- OUTSIDE RECORDS SUMMARY | 2024-03-14 06:50 | XMS_ITS | CCD ---
Author Organization [facility] Care Team Providers Care Tobacco Checkout Clerk Name Role Phone Sara Medellin MD Primary Care Provider [phone] RAIZA, DR GUERRA Consulting Unavailable THEO ., [...] Unavailable HOY ., DR RUIZ Admitting Unavailable OCALA, DR SHAILESH Clark Consulting Unavailable TIMMIS, DR [...] DHRUV Attending Unavailable HARRY, DHRUV Admitting Unavailable HOElvis ., DR RUIZ Primary Care Unavailable Sara Medellin MD Primary Care Provider [phone] Sara Medellin MD Primary Care Provider [phone] Sara Medellin MD Primary Care Provider [phone] SARA MEDELLIN Primary Care Unavailable Arslan GARCIA Attending Unavailable SARA MEDELLIN Primary Care Unavailable Arslan GARCIA Attending Unavailable SARA MEDELLIN Primary Care Unavailable YFN MICHELLE Attending Unavailable TIA JAUREGUIY R Referring Unavailable SARA MEDELLIN Primary Care Unavailable SHANIA, ACOSTA R Referring Unavailable SARA MEDELLIN Primary Care Unavailable Sara Medellin MD Primary Care Provider [phone] SHANIA, ACOSTA Attending Unavailable SHANIA, ACOSTA Attending Unavailable SHANIA, ACOSTA Attending Unavailable SHANIA, ACOSTA Attending Unavailable SHANIA, ACOSTA Attending Unavailable SHANIA, ACOSTA Attending Unavailable KIM MCKEON Attending Unavailable SHANIA, ACOSTA Attending Unavailable Allergies Allergy Classification Reported Allergen(s) Allergy Type Date of Onset Reaction(s) Facility (20 sources) Cefaclor; Translations: [CEFACLOR] Drug Allergy 04-11-20 Hives, Shortness of Breath, Anaphylaxis [facility] (13 sources) Penicillins; Translations: [PENICILLINS] Drug Allergy 04-11-20 22 Hives, Shortness of Breath [facility] (2 sources) Cefaclor Drug Allergy 05-10-19 14 [facility] (2 sources) Penicillins Drug allergy (disorder) 05-10-[address] [facility] Repository (10 sources) Penicillin G sodium; Translations: [PENICILLIN G SODIUM] Allergy to substance 09-24-19 Anaphylaxis [facility] (9 sources) Cephalosporins (Antibiotic); Translations: [CEPHALOSPORINS] Propensity to adverse reactions to drug (disorder) 12-17-19 Anaphylaxis [facility] Repository (9 sources) Penicillin; Translations: [...] Comment on above: TAKE ONE TABLET BY [facility] TWICE A DAY FOR 30 DAYS [...] on above: Take 1 capsule by mo [facility] once daily. norethindrone 0.35 mg oral tablet [...] 08-07-2022 Episodic Other aftercare (1 source) Other residential (current) drug therapy; Translations: [OTH PRISON CURRENT DRUG THERAPY] Onset: 08-24-2022 Episodic Other [...] [facility] Referral to Food C linicon 02-26-2024 [facility] Urinalysis macro (dipstick) panel (U)on 02-11-2024 Bilirubin, UA Negative Negative - 4(70) +++ mg/dL [facility] Blood, UA Negative Negative - 50 Maury/mcL [facility] Clarity, UA Clear [facility] re Color, UA Yellow [facility] Glucose, UA Negative Negative - 1999(110) ++++ mg/dL [facility] Interpretation and review of laboratory results Abnormal [facility] Ketones, UA Negative Negative - 160(16) ++++ mg/dL [facility] Leukocytes, UA Positive Negative - 500+++ Fan/mcL [facility] Nitrite, UA Negative Negative - Positive [facility] pH, UA 7 5 - 9 [facility] Health[facility] Protein, UA Positive Negative - 1999(20) ++++ mg/dL [facility] Spec Grav, UA 1.02 1 - 1.03 [facility] care Urobilinogen, UA 1.0 0.2 - 12 mg/dL [facility] ALL THYROID STIM HORMONEon 1 Interpretation and review of laboratory results Abnormal [facility] TSH Qn 28.537 m[IU]/L High [facility] Healt hcare [facility] Cytology Cervical or vaginal smear or scraping studyon 11-13-2023 [facility] CNPNon 11-12-2023 CNPN Telephone (RADTSA) AMANDA CORTEZ ([id number]) 1990 F Date Time Provider Department 11/12/23 Arslan GARCIA During your visit today, we recorded the following information about you: Danna Pitts RN 11/12/2023 11:25 AM Signed Spoke to pt. She would like to see endocrinology in [place]. Pt's OB did adjust synthroid recently and has been monitoring labs. TREASURE- please sign pended order. PSS- please arrange visit when order is signed. Danna Pitts RN [facility], Danna Mcdowell RN Previous Messages ----- Message ----- From: Arslan Garcia MD Sent: 11/02/2023 12:08 PM EDT To: Obi Kern Sec; Carlos Faust Nurse Pool Given what sounds like patient is in first trimester and ongoing concerns of breast-feeding recommend she follow-up with endocrinology. Obi Genao 11/12/2023 11:26 AM Signed Lawanda please send records to She cardona in your box Hong ZhangClarissa 11/12/2023 1:18 PM Signed Records faxed to [...] patient. Meryl Nguyen Pss Nguyen Pss, Meryl 12/05/2023 9:12 AM Signed [...] [C73] Order(s):CONSULT TO ENDOCRINOLOGY [9007] Order #: [id number]: 1 FUTURE Prescriptions as of 01/09/2024 - [...] Encounter Status:Closed by DANNA PITTS on [facility]23 [facility] (KEVIN[facility] AMANDA CORTEZ ([id number]) 1990 F Date Time Provider Department 07/19/23 EDNA SAL During your visit today, we recorded the following information about you: Edna Sal RN 07/19/2023 10:42 AM Signed Pt called to request labs sent to [facility]. Faxed to central scheduling. Edna Sal RN [...] Encounter Status:Closed by EDNA SAL on 07/19/23 [facility] 06-25-2023 [facility] Telephone (NU) AMANDA CORTEZ ([id number]) 1990 F Date Time Provider Department 06/25/23 [...] Signed Patients lab orders were sent to [facility] and I scheduled her [...] (HCC) [C73] Order(s):T4/THYROXIN E [SQT4] Order #: [id number] FUTURE THYROID STIMULATING HORMONE [SQTSH] Order #: [id number] FUTURE THYROGLOBULIN, SERUM WITH REFLEX TO IA OR LC-MS/MS [SQTHYRORF] Order #: [id number] FUTURE Prescriptions as of 08/23/2023 - levothyroxine [...] Encounter Status:Closed by Arslan GARCIA on 08/15/23 [facility] CNPN Telephone (NCCAP) AMANDA CORTEZ ([id number]) 1990 F Date Time Provider Department 02/14/23 [facility] During your visit today, we recorded the following information about you: Obi Genao 02/14/2023 9:54 AM Signed Patient is scheduled for appointments Arslan Garcia MD Carlos [facility] Nurse [place]; Obi Genao 4 months with labs. Orders have been placed in [facility]. Allergies As of Date: 02/14/2023 Noted Allergy Reaction CECLOR (CEFACLOR) 04/11/2022 4 - Hives 12 - Shortness of Breath PENICILLINS 04/11/2022 4 - Hives 12 - Shortness of Breath Date Reviewed: 05/04/2022 Reviewed by: Daisy Stoll - Fully Assessed Reason for Visit: Appointment Confirmation [[id number]] Prescriptions as of 02/14/2023 - levothyroxine (SYNTHROID) [...] Status:Closed by OBI GENAO on 02/14/23 Normal [facility] CBC W Auto Differential pane l (Bld)on 02-01-2023 Basophils (Bld) [#/Vol] 0.04 10*3/uL Normal <0.11 [facility] Comment on above: Order Comment: Speci men Type: BLOOD SPECIMEN Ordering Facility: [facility] Address: [address] [place] [address] Performed By: #### 5 7021-8 #### [facility] CLIA [id number] [address] [place] [address] 51908 Basophils/100 WBC (Bld) 0.5 % Normal [facility] Comment on above: Order Comment: Speci men Type: BLOOD SPECIMEN Ordering Facility: [facility] Address: [address] [place] [address] Performed By: #### 5 7021-8 #### [facility] CLIA [id number] [address] [place] [address] 87060 Differential cell count method Nom (Bld) Auto Normal [facility] Comment on above: Order Comment: Speci men Type: BLOOD SPECIMEN Ordering Facility: [facility] Address: [address] [place] [address] Performed By: #### 5 7021-8 #### [facility] CLIA [id number] [address] [place] [address] Eosinophils (Bld) [#/Vol] 0.19 10*3/uL Normal <0.46 [facility] Comment on above: Order Comment: Speci men Type: BLOOD SPECIMEN Ordering Facility: [facility] Address: [address] [place] [address] Performed By: #### 5 7021-8 #### [facility] CLIA [id number] [address] [place] [address] 02938 Eosinophils/100 WBC (Bld) 2.5 % Normal [facility] Comment on above: Order Comment: Speci men Type: BLOOD SPECIMEN Ordering Facility: [facility] Address: [address] [place] [address] Performed By: #### 5 7021-8 #### [facility] CLIA [id number] [address] [place] [address] 13406 Erythrocyte distribution width (RBC) [Ratio] 13.3 % Normal 11.5-15.0 [facility] Comment on above: Order Comment: Speci men Type: BLOOD SPECIMEN Ordering Facility: [facility] Address: [address] [place] [address] Performed By: #### 5 7021-8 #### [facility] CLIA [id number] [address] [place] [address] 17595 Hematocrit (Bld) [Volume fraction] 47.7 % High 36.0-46.0 [facility] Comment on above: Order Comment: Speci men Type: BLOOD SPECIMEN Ordering Facility: [facility] Address: [address] [place] [address] Performed By: #### 5 7021-8 #### [facility] CLIA [id number] [address] [place] [address] 05542 Hemoglobin (Bld) [Mass/Vol] 15.6 g/dL High 11.5-15.5 [facility] Comment on above: Order Comment: Speci men Type: BLOOD SPECIMEN Ordering Facility: [facility] Address: [address] [place] [address] Performed By: #### 5 7021-8 #### [facility] CLIA [id number] [address] [place] [address] 99347 Immature granulocytes (Bld) [#/Vol] 0.03 10*3/uL Normal <0.10 [facility] Comment on above: Order Comment: Speci men Type: BLOOD SPECIMEN Ordering Facility: [facility] Address: [address] [place] [address] Performed By: #### 5 7021-8 #### [facility] CLIA [id number] [address] [place] [address] 89895 Immature granulocytes/100 WBC (Bld) 0.4 % Normal [facility] Comment on above: Order Comment: Speci men Type: BLOOD SPECIMEN Ordering Facility: [facility] Address: [address] [place] [address] Performed By: #### 5 7021-8 #### [facility] CLIA [id number] [address] [place] [address] 61590 Lymphocytes (Bld) [#/Vol] 2.30 10*3/uL Normal 1.00-4.00 [facility] Comment on above: Order Comment: Speci men Type: BLOOD SPECIMEN Ordering Facility: [facility] Address: [address] [place] [address] Performed By: #### 5 7021-8 #### [facility] CLIA [id number] [address] [place] [address] 88751 Lymphocytes/100 WBC (Bld) 29.7 % Normal [facility] Comment on above: Order Comment: Speci men Type: BLOOD SPECIMEN Ordering Facility: [facility] Address: [address] [place] [address] Performed By: #### 5 7021-8 #### [facility] CLIA [id number] [address] [place] [address] 97809 MCH (RBC) [Entitic mass] 28.8 pg Normal 26.0-34.0 [facility] Comment on above: Order Comment: Speci men Type: BLOOD SPECIMEN Ordering Facility: [facility] Address: [address] [place] [address] Performed By: #### 5 7021-8 #### [facility] CLIA [id number] [address] [place] [address] 29164 MCHC (RBC) [Mass/Vol] 32.7 g/dL Normal 30.5-36.0 [facility] Comment on above: Order Comment: Speci men Type: BLOOD SPECIMEN Ordering Facility: [facility] Address: [address] [place] [address] Performed By: #### 5 7021-8 #### [facility] CLIA [id number] [address] [place] [address] 77455 MCV (RBC) [Entitic vol] 88.2 fL Normal 80.0-100.0 [facility] Comment on above: Order Comment: Speci men Type: BLOOD SPECIMEN Ordering Facility: [facility] Address: [address] [place] [address] Performed By: #### 5 7021-8 #### [facility] CLIA [id number] [address] [place] [address] 20861 Monocytes (Bld) [#/Vol] 0.49 10*3/uL Normal <0.87 [facility] Comment on above: Order Comment: Speci men Type: BLOOD SPECIMEN Ordering Facility: [facility] Address: [address] [place] [address] Performed By: #### 5 7021-8 #### [facility] CLIA [id number] [address] [place] [address] 16144 Monocytes/100 WBC (Bld) 6.3 % Normal [facility] Comment on above: Order Comment: Speci men Type: BLOOD SPECIMEN Ordering Facility: [facility] Address: [address] [place] [address] Performed By: #### 5 7021-8 #### [facility] CLIA [id number] [address] [place] [address] 99779 Neutrophils (Bld) [#/Vol] 4.70 10*3/uL Normal 1.45-7.50 [facility] Comment on above: Order Comment: Speci men Type: BLOOD SPECIMEN Ordering Facility: [facility] Address: [address] [place] [address] Performed By: #### 5 7021-8 #### [facility] CLIA [id number] [address] [place] [address] 95049 Neutrophils/100 WBC (Bld) 60.6 % Normal [facility] Comment on above: Order Comment: Speci men Type: BLOOD SPECIMEN Ordering Facility: [facility] Address: [address] [place] [address] Performed By: #### 5 7021-8 #### [facility] CLIA [id number] [address] [place] [address] 93997 Nucleated RBC (Bld) [#/Vol] 10*3/uL Normal <0.01 [facility] Comment on above: Order Comment: Speci men Type: BLOOD SPECIMEN Ordering Facility: [facility] Address: [address] [place] [address] Performed By: #### 5 7021-8 #### [facility] CLIA [id number] [address] [place] [address] 66938 Nucleated RBC/100 WBC (Bld) [Ratio] 0.0 /100 WBC Normal [facility] Comment on above: Order Comment: Speci men Type: BLOOD SPECIMEN Ordering Facility: [facility] Address: [address] [place] [address] Performed By: #### 5 7021-8 #### [facility] CLIA [id number] [address] [place] [address] 90721 Platelet mean volume (Bld) [Entitic vol] 9.6 fL Normal 9.0-12.7 [facility] Comment on above: Order Comment: Speci men Type: BLOOD SPECIMEN Ordering Facility: [facility] Address: [address] [place] [address] Performed By: #### 5 7021-8 #### [facility] CLIA [id number] [address] [place] [address] 19184 Platelets (Bld) [#/Vol] 248 10*3/uL Normal 150-400 [facility] Comment on above: Order Comment: Speci men Type: BLOOD SPECIMEN Ordering Facility: [facility] Address: [address] [place] [address] Performed By: #### 5 7021-8 #### [facility] CLIA [id number] [address] [place] [address] 80673 RBC (Bld) [#/Vol] 5.41 10*6/uL High 3.90-5.20 [facility] Comment on above: Order Comment: Speci men Type: BLOOD SPECIMEN Ordering Facility: [facility] Address: [address] [place] [address] Performed By: #### 5 7021-8 #### [facility] CLIA [id number] [address] [place] [address] 76594 WBC (Bld) [#/Vol] 7.75 10*3/uL Normal 3.70-11.00 [facility] Comment on above: Order Comment: Speci men Type: BLOOD SPECIMEN Ordering Facility: [facility] Address: [address] [place] [address] Performed By: #### 5 7021-8 #### [facility] CLIA [id number] [address] [place] [address] 91083 T3 SerPl-mCncon 02-01-2023 T3 [Mass/Vol] 123 ng/dL Normal 79-165 [facility] Comment on above: Order Comment: Speci men Type: BLOOD SPECIMEN Ordering Facility: [facility] Address: [address] [place] [address] Performed By: #### 3 053-6, 3016-3, 3026-2 #### [facility] CLIA [id number] [address] [facility] [address] [id number] [id number] [place] T4 SerPl-mCncon 02-01-2023 T4 [Mass/Vol] 11.9 ug/dL High 5.5-10.2 [facility] Comment on above: Order Comment: Chel iverson Type: BLOOD SPECIMEN Ordering Facility: [facility] Address: [address] [place] [address] Performed By: #### 3 053-6, 3016-3, 3026-2 #### [facility] CLIA [id number] [address] [facility] [id number] [place] [address] [facility] THYROGLOBULIN BY MASS SPECTR [facility]20[facility] THYROGLOBULIN, LC-MS/MS <0.5 Low 1.3-31.8 [facility] Comment on above: Order Comment: Chel iverson Type: BLOOD SPECIMEN Ordering Facility: [facility] Address: [address] [place] [address] Result Comment: Results obtained with different test [...] developed and its performance characteristics determined by [employer]. It has not been cleared or approved by the [place] Food and Drug Administration. This test was performed in a CLIA certified laboratory and is intended for clinical purposes. Performed By: [facility] [address] [place] [address] Trimmer Helper: Prem Willis MD, PhD CLIA Number: [id number] Performed By: #### T [facility] #### REPLACED BY [facility] CLIA [id number] [address] [place] [address] [facility]2023 TSH Qn 0.960 m[IU]/L Normal 0.270-4.200 [facility] Comment on above: Order Comment: Chel iverson Type: BLOOD SPECIMEN Ordering Facility: [facility] Address: [address] [place] [address] Result Comment: If t he patient is , TSH reference range varies by gestational period: First Trimester (weeks 9-12): 0.180-2.990 mIU/L Second Trimester: 0.110-3.980 mIU/L Third Trimester: 0.480-4.710 mIU/L Suman Graf et al. A Practical Approach for the Verifications and Determination of Site- and Trimester-Specific Reference Intervals for Thyroid Function tests in . Thyroid, 2019:29:3:412-420. Rajesh Holman, et al. 2017 Guidelines of the [place] Thyroid Association for the Diagnosis and Management of Thyroid Disease during and the . Thyroid, 2017:27:3:315-389. Performed By: #### 3 053-6, 3016-3, 3026-2 #### [facility] CLIA [id number] [address] [place] [address] [place] PREG QUANT HCGon 08-17-2022 HCG QUANT 1 mIU/mL Normal [facility] Comment on above: Performed By: #### P REGQNT #### [facility] [address] [place] [address] Dr. Prashant Kang HCG RANGE SEE BELOW Normal [facility] Comment on above: Result Comment: 5-50 0.2-1 WEEK 50-500 1-2 WEEKS 100-5,000 2-3 WEEKS 500-10,000 3-4 WEEKS 1,000-50,000 4-5 WEEKS 10,000-100,000 5-6 WEEKS 15,000-200,000 6-8 WEEKS 10,000-100,000 2-3 MONTHS Performed By: #### P REGQNT #### [facility] [address] [place] [address] Dr. Prashant Kang PREG QUANT HCGon 07-04-2022 HCG QUANT <[address] [facility] Comment on above: Performed By: #### P REGQNT #### [facility] [address] [place] [address] Dr. Prashant Kang HCG RANGE SEE BELOW Normal [facility] Comment on above: Result Comment: 5-50 0.2-1 WEEK 50-500 1-2 WEEKS 100-5,000 2-3 WEEKS 500-10,000 3-4 WEEKS 1,000-50,000 4-5 WEEKS 10,000-100,000 5-6 WEEKS 15,000-200,000 6-8 WEEKS 10,000-100,000 2-3 MONTHS Performed By: #### P REGQNT #### [facility] [address] [place] [address] Dr. Prashant Kang PREG QUANT HCGon 05-16-2022 HCG QUANT <1 Normal [facility] Comment on above: Performed By: #### P TT, PT #### [facility] [address] [place] [address] Dr. Prashant Kang HCG RANGE SEE BELOW [facility] Comment on above: Result Comment: 5-50 0.2-1 WEEK 50-500 1-2 WEEKS 100-5,000 2-3 WEEKS 500-10,000 3-4 WEEKS 1,000-50,000 4-5 WEEKS 10,000-100,000 5-6 WEEKS 15,000-200,000 6-8 WEEKS 10,000-100,000 2-3 MONTHS Performed By: #### P TT, PT #### [facility] [address] [place] [address] Dr. Prashant Kang PREG QUANT HCGon 05-08-2022 HCG QUANT <1 Normal [facility] Comment on above: Performed By: #### P REGQNT #### [facility] [address] [place] [address] Dr. Prashant Kang HCG RANGE SEE BELOW Normal [facility] Comment on above: Result Comment: 5-50 0.2-1 WEEK 50-500 1-2 WEEKS 100-5,000 2-3 WEEKS 500-10,000 3-4 WEEKS 1,000-50,000 4-5 WEEKS 10,000-100,000 5-6 WEEKS 15,000-200,000 6-8 WEEKS 10,000-100,000 2-3 MONTHS Performed By: #### P REGQNT #### [facility] [address] [place] [address] Dr. Prashant Kang CALCIUMon 03-08-2022 Calcium [Mass/Vol] 8.6 mg/dL Normal 8.5-10.1 [facility] Comment on above: Performed By: #### C A #### [facility] [address] [address] [address] Prashant Kang CALCIUMon 03-07-2022 Calcium [Mass/Vol] 8.4 mg/dL Critically low 8.5-10.1 [facility] Comment on above: Performed By: #### C A #### [facility] [address] [place] [address] Dr. Prashant Kang PREG HCG QUALon 03-07-2022 , QUAL Negative Normal NEGATIVE [facility] Comment on above: Performed By: #### P REG #### [facility] [address] [place] [address] Dr. Prashant Kang Covid-19 PCR (CVDTB)on SARS-CoV-2 (COVID-19) RNA DENEEN+probe Ql (Unsp spec) Not detected Normal NOT DETECTED [facility] Comment on above: Result Comment: This test is not yet approved or cleared by the [place] FDA. When there are no FDA-approved or cleared tests available, and other criteria are met, FDA can make tests available under an emergency access mechanism called an Emergency Use Authorization (EUA). The EUA for this test is supported by the [place] of Health and Human Service's (HHS's) declaration [...] SARS-CoV-2. Performed By: #### C VDTBH #### [facility] [address] [place] [address] Dr. Prashant Kang CALCIUMon 02-24-2022 Calcium [Mass/Vol] 8.8 mg/dL Normal 8.5-10.1 [facility] Comment on above: Performed By: #### P TT, PT #### [facility] [address] [place] [address] Dr. Prashant Kagn CBC AUTO DIFFon 02-24-2022 BASO # 0.0 103/ul Normal 0.0-0.1 [facility] Comment on above: Performed By: #### P TT, PT #### [facility] [address] [place] [address] Dr. Prashant Kang Basophils/100 WBC (Bld) 0.3 % Normal 0.2-2.0 [facility] Comment on above: Performed By: #### P TT, PT #### [facility] [address] [place] [address] Dr. Prashant Kang EO # 0.1 103/ul Normal 0.0-0.7 [facility] Comment on above: Performed By: #### P TT, PT #### [facility] [address] [place] [address] Dr. Prashant Kang Eosinophils/100 WBC (Bld) 1.5 % Normal 0.9-7.0 [facility] Comment on above: Performed By: #### P TT, PT #### [facility] [address] [place] [address] Dr. Prashant Kang Erythrocyte distribution width (RBC) [Ratio] 13.8 % Normal 11.0-15.0 [facility] Comment on above: Performed By: #### P TT, PT #### [facility] [address] [place] [address] Dr. Prashant Kang Hematocrit (Bld) [Volume fraction] 45.5 % Normal 36.0-48.0 [facility] Comment on above: Performed By: #### P TT, PT #### [facility] [address] [place] [address] Dr. Prashant Kang Hemoglobin (Bld) [Mass/Vol] 14.6 g/dL Normal 12.0-16.0 [facility] Comment on above: Performed By: #### P TT, PT #### [facility] [address] [place] [address] Dr. Prashant Kang IG # 0.02 10e3/ul Normal 0.00-0.[address] [facility] Comment on above: Performed By: #### P TT, PT #### [facility] [address] [place] [address] Dr. Prashant Kang IG % 0.3 % Normal 0.0-0.5 [facility] Comment on above: Performed By: #### P TT, PT #### [facility] [address] [place] [address] Dr. Prashant Kang LYMPH # 1.6 103/ul Normal 1.2-3.[address] [facility] Comment on above: Performed By: #### P TT, PT #### [facility] [address] [place] [address] Dr. Prashant Kang Lymphocytes/100 WBC (Bld) 23.5 % Normal 20.5-60.[address] [facility] Comment on above: Performed By: #### P TT, PT #### [facility] [address] [place] [address] Dr. Prashant Kang MANUAL DIFF REQ NO Normal [facility] Comment on above: Performed By: #### P TT, PT #### [facility] [address] [place] [address] Dr. Prashant Kang MCH (RBC) [Entitic mass] 26.5 pg Critically low 26.7-34.0 [facility] Comment on above: Performed By: #### P TT, PT #### [facility] [address] [place] [address] Dr. Prashant Kang MCHC (RBC) [Mass/Vol] 32.1 g/dL Normal 29.9-35.[address] [facility] Comment on above: Performed By: #### P TT, PT #### [facility] [address] [place] [address] Dr. Prashant Kang MCV (RBC) [Entitic vol] 82.7 fL Normal 81.0-99.0 [facility] Comment on above: Performed By: #### P TT, PT #### [facility] [address] [address] [address] Prashant Kang MONO # 0.5 103/ul Normal 0.3-0.[address] [facility] Comment on above: Performed By: #### P TT, PT #### [facility] [address] [place] [address] Dr. Prashant Kang Monocytes/100 WBC (Bld) 7.5 % Normal 1.7-12.[address] [facility] Comment on above: Performed By: #### P TT, PT #### [facility] [address] [place] [address] Dr. Prashant Kang NEUT # 4.6 103/ul Normal 1.4-6.[address] [facility] Comment on above: Performed By: #### P TT, PT #### [facility] [address] [place] [address] Dr. Prashant Kang Neutrophils/100 WBC (Bld) 66.9 % Normal 43.0-75.[address] [facility] Comment on above: Performed By: #### P TT, PT #### [facility] [address] [place] [address] Dr. Prashant Kang Platelet mean volume (Bld) [Entitic vol] 9.9 fL Normal 9.5-13.[address] [facility] Comment on above: Performed By: #### P TT, PT #### [facility] [address] [place] [address] Dr. Prashant Kang PLT 239 103/ul Normal 150-[address] [facility] Comment on above: Performed By: #### P TT, PT #### [facility] [address] [place] [address] Dr. Prashant Kang RBC 5.50 106/ul Critically high 4.20-5.40 [facility] Comment on above: Performed By: #### P TT, PT #### [facility] [address] [place] [address] Dr. Prashant Kang WBC 6.8 103/ul Normal 4.0-11.[address] [facility] Comment on above: Performed By: #### P TT, PT #### [facility] [address] [place] [address] Dr. Prashant Kang MAGNESIUMon 02-24-2022 Magnesium [Mass/Vol] 2.0 mg/dL Normal 1.8-2.[address] [facility] Comment on above: Performed By: #### P TT, PT #### [facility] [address] [place] [address] Dr. Prashant Kang PHOSPHORUSon 02-24-2022 Phosphate [Mass/Vol] 3.3 mg/dL Normal 2.6-4.[address] [facility] Comment on above: Performed By: #### P TT, PT #### [facility] [address] [place] [address] Dr. Prashant Kang PROTIMEon 02-24-2022 INR Coag (PPP) [Relative time] 1.01 {INR} Normal [facility] Comment on above: Performed By: #### P TT, PT #### [facility] [address] [place] [address] Dr. Prashant Kang INR GUIDELINES SEE BELOW Normal [facility] Comment on above: Result Comment: SALIMA RED INR: 2.0 - 3.0 CONDITIONS NOT LISTED BELOW 2.5 - 3.5 FOR PROSTHETIC HEART VALVE REPLACEMENT 2.5 - 3.5 RECURRENT THROMBOSIS Performed By: #### P TT, PT #### [facility] [address] [place] [address] Dr. Prashant Kang PT Coag (PPP) [Time] 10.9 s Normal 9.0-11.[address] [facility] Comment on above: Performed By: #### P TT, PT #### [facility] [address] [place] [address] Dr. Prashant Kang PTTon 02-24-2022 aPTT Coag (Bld) [Time] 28.9 s Normal 22.3-36.[address] [facility] Comment on above: Performed By: #### P TT, PT #### [facility] [address] [place] [address] Dr. Prashant Kang TSHon 02-24-2022 TSH 1.163 uIU/mL Normal 0.358-3.740 [facility] Comment on above: Performed By: #### P TT, PT #### [facility] [address] [place], [place] [address] Dr. Prashant Kang US THYROID FN ASP BXon 02-09 US THYROID FN ASP BX Begin Addendum #1 COLLECTED DATE/TIME: 02/03/2022 11:36 EDT Final Diagnosis Report for [facility] [place] [place] (A/B) THYROID ISTHMUS NODULE, FINE NEEDLE [...] Pathology results are pending. Normal [facility] CT NECK ST W CONon 2 [...] EMERY Date: 2022-01-20 13:[address] [facility] US THYROIDon 01-20-2022 US THYROID EXAMINATION: [...] isthmus nodule. Consider fine-needle aspiration TI-RADS: The [place] [employer] TI-RADS committee's white paper recommendations for thyroid lesions classified as TR4 (moderately suspicious) are listed below: > 1.0 cm. Follow-up ultrasound in 1, 2, 3, and 5 years. > 1.5 cm. FNA. J. Am More Radiol 2017;[id number]. Electronically authenticated by: SHAILESH EMERY Date: 2022-01-20 21:[address] [facility] CBC AUTO DIFFon 01-08-2022 BASO # 0.0 103/ul Normal 0.0-0.1 [facility] Comment on above: Performed By: #### P TT, PT #### [facility] [address] [place] [address] Dr. Prashant Kang Basophils/100 WBC (Bld) 0.4 % Normal 0.2-2.0 [facility] Comment on above: Performed By: #### P TT, PT #### [facility] [address] [place] [address] Dr. Prashant Kang EO # 0.2 103/ul Normal 0.0-0.7 [facility] Comment on above: Performed By: #### P TT, PT #### [facility] [address] [place] [address] Dr. Prashant Kang Eosinophils/100 WBC (Bld) 3.4 % Normal 0.9-7.[address] [facility] Comment on above: Performed By: #### P TT, PT #### [facility] [address] [place] [address] Dr. Prashant Kang Erythrocyte distribution width (RBC) [Ratio] 14.6 % Normal 11.0-15.0 [facility] Comment on above: Performed By: #### P TT, PT #### [facility] [address] [place] [address] Dr. Prashant Kang Hematocrit (Bld) [Volume fraction] 42.9 % Normal 36.0-48.[address] [facility] Comment on above: Performed By: #### P TT, PT #### [facility] [address] [place] [address] Dr. Prashant Kang Hemoglobin (Bld) [Mass/Vol] 13.4 g/dL Normal 12.0-16.[address] [facility] Comment on above: Performed By: #### P TT, PT #### [facility] [address] [place] [address] Dr. Prashant Kang IG # 0.02 10e3/ul Normal 0.00-0.[address] [facility] Comment on above: Performed By: #### P TT, PT #### [facility] [address] [place] [address] Dr. Prashant Kang IG % 0.3 % Normal 0.0-0.[address] [facility] Comment on above: Performed By: #### P TT, PT #### [facility] [address] [place] [address] Dr. Prashant Kang LYMPH # 2.0 103/ul Normal 1.2-3.[address] [facility] Comment on above: Performed By: #### P TT, PT #### [facility] [address] [place] [address] Dr. Prashant Kang Lymphocytes/100 WBC (Bld) 29.7 % Normal 20.5-60.[address] [facility] Comment on above: Performed By: #### P TT, PT #### [facility] [address] [place] [address] Dr. Prashant Kang MANUAL DIFF REQ NO Normal [facility] Comment on above: Performed By: #### P TT, PT #### [facility] [address] [place] [address] Dr. Prashant Kang MCH (RBC) [Entitic mass] 26.3 pg Critically low 26.7-34.[address] [facility] Comment on above: Performed By: #### P TT, PT #### [facility] [address] [place] [address] Dr. Prashant Kang MCHC (RBC) [Mass/Vol] 31.2 g/dL Normal 29.9-35.[address] [facility] Comment on above: Performed By: #### P TT, PT #### [facility] [address] [place] [address] Dr. Prashant Kang MCV (RBC) [Entitic vol] 84.1 fL Normal 81.0-99.0 [facility] Comment on above: Performed By: #### P TT, PT #### [facility] [address] [place] [address] Dr. Prashant Kang MONO # 0.6 103/ul Normal 0.3-0.[address] [facility] Comment on above: Performed By: #### P TT, PT #### [facility] [address] [place] [address] Dr. Prashant Kang Monocytes/100 WBC (Bld) 8.7 % Normal 1.7-12.[address] [facility] Comment on above: Performed By: #### P TT, PT #### [facility] [address] [place] [address] Dr. Prashant Knag NEUT # 3.9 103/ul Normal 1.4-6.[address] [facility] Comment on above: Performed By: #### P TT, PT #### [facility] [address] [place] [address] Dr. Prashant Kang Neutrophils/100 WBC (Bld) 57.5 % Normal 43.0-75.[address] [facility] Comment on above: Performed By: #### P TT, PT #### [facility] [address] [address] [address] Prashant Kang Platelet mean volume (Bld) [Entitic vol] 9.9 fL Normal 9.5-13.5 [facility] Comment on above: Performed By: #### P TT, PT #### [facility] [address] [place] [address] Dr. Prashant Kang PLT 241 103/ul Normal 150-[address] [facility] Comment on above: Performed By: #### P TT, PT #### [facility] [address] [place] [address] Dr. Prashant Kang RBC 5.10 106/ul Normal 4.20-5.40 [facility] Comment on above: Performed By: #### P TT, PT #### [facility] [address] [place] [address] Dr. Prashant Kang WBC 6.8 103/ul Normal 4.0-11.0 [facility] Comment on above: Performed By: #### P TT, PT #### [facility] [address] [place] [address] Dr. Prashant Kang GROUP A STREP CULTUREon 12-29 S. pyogenes Ag Ql (Unsp spec) Culture Observations: NEGATIVE FOR GROUP A STREPTOCOCCUS. Normal [facility] Comment on above: Performed By: #### P TT, PT #### [facility] [address] [place] [address] Dr. Prashant aKng PROF 14(COMP METB)on 022 Albumin [Mass/Vol] 3.6 g/dL Normal 3.4-5.0 [facility] Comment on above: Performed By: #### C MP #### [facility] [address] [place] [address] Dr. Prashant Kang Albumin/Globulin [Mass ratio] 0.8 {ratio} Normal [facility] Comment on above: Performed By: #### C MP #### [facility] [address] [place] [address] Dr. Prashant Kang ALP [Catalytic activity/Vol] 74 U/L Normal 46-116 [facility] Comment on above: Performed By: #### C MP #### [facility] [address] [address] [address] Prashant Kagn ALT [Catalytic activity/Vol] 40 U/L Normal 14-59 [facility] Comment on above: Performed By: #### C MP #### [facility] [address] [address] [address] Prashant Kang Anion gap [Moles/Vol] 14.0 mmol/L Normal [facility] Comment on above: Performed By: #### C MP #### [facility] [address] [address] [address] Prashant Kang AST [Catalytic activity/Vol] 31 U/L Normal 15-37 [facility] Comment on above: Performed By: #### C MP #### [facility] [address] [address] [address] Prashant Kang Bilirubin [Mass/Vol] 0.4 mg/dL Normal 0.2-1.0 [facility] Comment on above: Performed By: #### C MP #### [facility] [address] [address] [address] Prashant Kang Calcium [Mass/Vol] 8.8 mg/dL Normal 8.5-10.1 [facility] Comment on above: Performed By: #### C MP #### [facility] [address] [place] [address] Dr. Prashant Kang Chloride [Moles/Vol] 105 mmol/L Normal 98-[address] [facility] Comment on above: Performed By: #### C MP #### [facility] [address] [address] [address] Prashant Kang CO2 [Moles/Vol] 26.6 mmol/L Normal 21.0-32.0 [facility] Comment on above: Performed By: #### C MP #### [facility] [address] [address] [address] Prashant Kang Creatinine [Mass/Vol] 0.80 mg/dL Normal 0.55-1.02 [facility] Comment on above: Performed By: #### C MP #### [facility] [address] [address] [address] Prashant Kang EGFR-AF [facility] LUCIAN >60 Normal >=60 [facility] Comment on above: Performed By: #### C MP #### [facility] [address] [address] [address] Prashant Kang EGFR-NON AF [facility] LUCIAN >60 Normal >=60 [facility] Comment on above: Performed By: #### C MP #### [facility] [address] [address] [address] Prashant Kang Globulin (S) [Mass/Vol] 4.3 g/dL Normal [facility] Comment on above: Performed By: #### C MP #### [facility] [address] [address] [address] Prashant Kang Glucose [Mass/Vol] 101 mg/dL Normal 74-106 [facility] Comment on above: Performed By: #### C MP #### [facility] [address] [address] [address] Prashant Kang Potassium [Moles/Vol] 4.6 mmol/L Normal 3.5-5.1 [facility] Comment on above: Performed By: #### C MP #### [facility] [address] [address] [address] Prashant Kang Protein [Mass/Vol] 7.9 g/dL Normal 6.4-8.2 [facility] Comment on above: Performed By: #### C MP #### [facility] [address] [address] [address] Prashant Kang Sodium [Moles/Vol] 141 mmol/L Normal 136-145 [facility] Comment on above: Performed By: #### C MP #### [facility] [address] [address] [address] Prashant Kang Urea nitrogen [Mass/Vol] 11.0 mg/dL Normal 7.0-18.0 [facility] Comment on above: Performed By: #### C MP #### [facility] [address] [place] [address] Dr. Prashant Kang Urea nitrogen/Creatinine [Mass ratio] 13.8 mg/mg Normal [facility] Comment on above: Performed By: #### C MP #### [facility] [address] [place], [place] [address] Dr. Prashant Kang STREPT SCREENon 01-08-2022 STREP SCREEN A Negative Normal NEGATIVE [facility] Comment on above: Performed By: #### P TT, PT #### [facility] [address] [place], [place] [address] Dr. Prashant Kang XR NECK SOFT TISSUEon [...] BARNETT Date: 2022-01-08 04:[address] [facility] Cov[facility] ([facility])on SARS-CoV-2 (COVID-19) RNA DENEEN+probe Ql (Unsp spec) Not detected Normal NOT DETECTED [facility] Comment on above: Result Comment: This test is not yet approved or cleared by the [place] FDA. When there are no FDA-approved or cleared tests available, and other criteria are met, FDA can make tests available under an emergency access mechanism called an Emergency Use Authorization (EUA). The EUA for this test is supported by the [employer] of Health and Human Service's (HHS's) declaration [...] By: #### P TT, PT #### [facility] [address] [place] [address] Dr. Prashant Kang Vital Signs Date Time [...] 13:54-0500 Diastolic blood pressure 74 mm[Hg] Acosta Shanai DO Work Phone: [facility] 06-12-2023 13:54-0500 Systolic blood pressure 118 mm[Hg] Acosta Shania DO Work Phone: [facility] 05-04-2022 09:40-0500 Body temperature 97.2 [degF] JONNY Garcia MD Work Phone: [facility] 05-04-2022 09:40-0500 Body weight 88.81 kg NA Jose BULLOCK Work Phone: [facility] 05-04-2022 09:40-0500 Diastolic blood pressure 73 mm[Hg] JONNY Garcia MD Work Phone: [facility] 05-04-2022 09:40-0500 Heart rate 67 /min JONNY Garcia MD Work Phone: [facility] 05-04-2022 09:40-0500 Respiratory rate 16 /min JONNY Garcia MD Work Phone: [facility] 05-04-2022 09:40-0500 SaO2% (BldA) [Mass fraction] 100 % JONNY Garcia MD Work Phone: [facility] 05-04-2022 09:40-0500 Systolic blood pressure 113 mm[Hg] JONNY Garcia MD Work Phone: [facility] Encounters Encounter Date Encounter Type Care Provider Facility Start: 03-10-2024 End: 03-10-2024 ambulatory ACOSTA JAUREGUI Not Available Start: 02-26-2024 End: 02-26-2024 Patient encounter procedure [facility] Comment on above: 24 weeks gestation o f ; Food insecurity Start: 02-25-2024 End: 02-25-2024 Bamboo flowsheet Kim YAO Work Phone: [facility] Start: 02-25-2024 End: 02-25-2024 Bamboo flowsheet Kim YAO Work Phone: [facility] Start: 02-25-2024 End: 02-25-2024 Office outpatient visit 15 minutes Kim YAO Work Phone: [facility] Comment on above: Third trimester preg yogesh; 31 weeks gestation of ; Thyroid disease (CMS/HCC) Start: 02-25-2024 End: 02-25-2024 ambulatory KIM MCKEON Not Available Start: 02-11-2024 End: 02-11-2024 Bamboo flowsheet Acosta Shania DO Work Phone: [facility] Start: 02-11-2024 End: 02-11-2024 Bamboo flowsheet Acosta Shania DO Work Phone: [facility] Start: 02-11-2024 End: 02-11-2024 Office outpatient visit 15 minutes Acosta Shania DO Work Phone: [facility] Comment on above: Third trimester preg yogesh; Thyroid disease (CMS/HCC); 29 weeks gestation of ; History of placental abruption; Non compliance w medication regimen Start: 02-11-2024 End: 02-11-2024 ambulatory ACOSTA SHANIA Not Available Start: 02-08-2024 End: 02-08-2024 Clinisync Result Encounter Acosta Shania DO Work Phone: [facility] External Department Unsolicited Start: 02-08-2024 End: 02-08-2024 Clinisync Result Encounter Acosta Shania DO Work Phone: [facility] External Department Unsolicited Start: 01-23-2024 End: 01-24-2024 Telephone encounter Arslan Garcia MD Work Phone: [facility] Comment on above: Patient Question Start: 01-14-2024 End: 01-14-2024 ambulatory ACOSTA SHANIA Not Available Start: 01-11-2024 End: 01-11-2024 ambulatory ACOSTA R SHANIA [facility] Start: 12-17-2023 End: 12-17-2023 ambulatory [...] minutes Acosta Shania DO Work Phone: [facility] Comment on above: Missed menses; Amenorrhea Start: 06-12-2023 End: 06-12-2023 ambulatory ACOSTA SHANIA Not Available Start: 02-14-2023 Telephone encounter [facility]sl[facility] Comment on above: Appointment Confirma tion Start: 02-08-2023 End: 02-08-2023 ambulatory SARA MEDELLIN Facility:[facility] Start: 02-01-2023 End: 02-01-2023 ambulatory SARA MEDELLIN Facility:[facility] Start: 11-09-2022 Telephone encounter [facility]slan Garcia [facility] Comment on above: Appointment Confirma [...] Start: 05-08-2022 End: 05-30-[address] ACOSTA JUAREGUI . Facility:[facility] Start: 05-04-2022 End: 05-04-2022 Patient encounter procedure Arslan Garcia MD Work Phone: [facility] Comment on above: Thyroid cancer (HCC) (Primary Dx) Start: 04-25-2022 Telephone encounter Arslan Garcia MD [facility] Comment on above: Missed Appointment Start: 04-20-2022 Patient encounter procedure [facility] Department Start: 04-11-2022 End: 04-11-2022 Patient encounter procedure [facility] Work Phone: Radiation Oncology Comment on above: Thyroid cancer (HCC) (Primary Dx) Start: 03-09-2022 Encounter for preprocedural laboratory examination DR CHARLIE EASTMAN [facility] Start: 03-07-2022 End: 03-08-[address] CHARLIE EASTMAN Facility:[facility] Start: 03-04-2022 End: 03-05-[address] CHARLIE EASTMAN Facility:[facility] Start: 03-04-2022 End: 03-05-2022 Encounter for preprocedural laboratory examination DR CHARLIE EASTMAN Facility:[facility] Start: 02-24-2022 End: 02-25-[address] CHARLIE EASTMAN Facility:[facility] Start: 02-06-2022 End: 02-06-2022 ambulatory CLARI HARRIS . Facility:[facility] Start: 02-03-2022 End: 02-03-[address] CHARLIE TIMMIS Facility:[facility] Start: 01-20-2022 End: 01-21-[address] SARA MEDELLIN . Facility:[facility] Start: 01-08-2022 End: 01-08-[address] GAIL STOLL Facility:[facility] Start: 01-04-2022 End: 01-04-[address] SARA MEDELLIN . Facility:[facility] Start: 12-12-2021 End: 12-12-2021 ambulatory DHRUV HARRY Facility:[facility] Procedures Date Procedure Procedure Detail Performing [...] Adult BMI Screening Adult BMI Screen ing [facility] Start: 01-10-2025 Tobacco Screening Tobacco Screening [facility] Start: 03-10-2024 End: 03-10-2024 Patient encounter procedure 03/10/2024 1:00 PM EST Routine [facility] [address] [place] [address] Acosta Jauregui, DO [address], [place] [address] [facility] Start: 02-25-2024 End: 02-24-2025 [...] placental abruption Expected: 02/11/2024 (Approximate), Expires: 02/10/2025 [facility] Work Phone: Comment on above: Expected: 02/11/2024 (Approximate), Expires: 02/10/2025 Start: 02-11-2024 End: 02-10-2025 US for US OB SCAN FOR GROWTH Imaging Routine Thyroid disease (CMS/HCC) 29 weeks gestation of History of placental abruption Expected: 02/11/2024 (Approximate), Expires: 02/10/2025 [facility] Comment on above: Expected: 02/11/2024 (Approximate), Expires: 02/10/2025 Start: 02-11-2024 End: 02-11-2024 Patient encounter procedure [facility] Comment on above: Arrived Start: 12-30-2023 Covid-19 Vaccine () Covid-19 Vaccine () [facility] Start: 12-30-2023 Influenza vaccination [facility] Start: 08-15-2023 End: 11-14-2023 Thyroglobulin and Thyrogobulin Ab panel - Serum or Plasma THYROGLOBULIN, SERUM WITH REFLEX TO IA OR LC-MS/MS Lab Routine Thyroid cancer (HCC) Expected: 08/15/2023, Expires: 11/14/2023 [facility] Work Phone: Comment on above: Expected: 08/15/2023 , Expires: 11/14/2023 Start: 08-15-2023 End: 11-14-2023 Thyrotropin [Units/volume] in Serum or Plasma THYROID STIMULATING HORMONE Lab Routine Thyroid cancer (HCC) Expected: 08/15/2023, Expires: 11/14/2023 [facility] Work Phone: Comment on above: Expected: 08/15/2023 , Expires: 11/14/2023 Start: 08-15-2023 End: 11-14-2023 Thyroxine (T4) [Mass/volume] in Serum or Plasma T4/THYROXINE Lab Routine Thyroid cancer (HCC) Expected: 08/15/2023, Expires: 11/14/2023 [facility] Work Phone: Comment on above: Expected: 08/15/2023 , Expires: 11/14/2023 Start: 06-26-2023 End: 06-26-2023 Professional / ancillary services management 06/26/2023 1:00 PM EST Ancillary Procedure [facility] [address] [place] [address] [facility] Start: 06-12-2023 End: 06-12-2024 US for US PELVIS-TRANSVAG IF INDICATED Imaging Routine Amenorrhea Expected: 06/12/2023 (Approximate), Expires: 06/12/2024 [facility] Comment on above: Expected: 06/12/2023 (Approximate), Expires: 06/12/2024 Start: 04-30-2023 Behavioral Health Screening Behavioral Health Screening [facility] Start: 04-30-2023 Depression Assessment Depression Ass essment [facility] Start: 12-29-2022 Covid-19 Vaccine ( season) Covid-19 Vaccine ( season) [facility] Start: 12-29-2022 Influenza vaccination [facility] Start: 07-02-2022 End: 09-01-2022 THYROGLOBULIN BY MASS SPECTROMETRY THYROGLOBULIN BY MASS SPECTROMETRY Lab Routine Thyroid cancer (HCC) Expected: 07/02/2022, Expires: 09/01/2022 [facility] Work Phone: Comment on above: Expected: 07/02/2022 , Expires: 09/01/2022 Start: 07-02-2022 End: 09-01-2022 Thyrotropin [Units/volume] in Serum or Plasma TSH BLD Lab Routine Thyroid cancer (HCC) Expected: 07/02/2022, Expires: 09/01/2022 [facility] Work Phone: Comment on above: Expected: 07/02/2022 , Expires: 09/01/2022 Start: 07-02-2022 End: 09-01-2022 Thyroxine (T4) [Mass/volume] in Serum or Plasma T4/THYROXINE BLOOD Lab Routine Thyroid cancer (HCC) Expected: 07/02/2022, Expires: 09/01/2022 [facility] Work Phone: Comment on above: Expected: 07/02/2022 , Expires: 09/01/2022 Start: 04-30-2022 [facility] Start: 2022 HPV TESTING HPV TESTING [facility] Start: 2022 Screening for malign ant neoplasm of cervix HPV Testing [facility] Start: 12-29-2021 Influenza vaccination INFLUENZA (#1) [facility] Start: 04-30-2021 DEPRESSION ASSESSMENT DEPRESSION ASS [facility] Start: 2013 PAP TESTING PAP TESTING [facility] Start: 2013 Screening for malign ant neoplasm of cervix [facility] Start: 2011 DTaP,Tdap and Td Vaccines (1 - Tdap) DTaP,Tdap and Td Vaccines (1 - Tdap) [facility] Start: 2011 Hepatitis B Vaccine (1 of 3 - 19+ 3-dose series) Hepatitis B Vaccine (1 of 3 - 19+ 3-dose series) [facility] Start: 2011 Urine microalbumin profile [facility] Start: 2010 Adult BMI Follow Up Plan Adult BMI Follow Up Plan [facility] Start: 2010 Anxiety Screening Anxiety Screening [facility] Start: 2010 Depression Screening Depression Scre [facility] Start: 2010 HEPATITIS C SCREENING HEPATITIS C [facility] Start: 2010 Hepatitis C screening Hepatitis C [facility] Start: 2010 HIV SCREENING HIV SCREENING [facility] Start: 2010 HIV screening HIV Screening [facility] Start: 2004 Depression Screening Depression Scre ing [facility] Start: 1998 PNEUMOCOCCAL (1 - PCV) PNEUMOCOCCAL (1 - PCV) [facility] Start: 1998 Pneumococcal vaccination [facility] Start: 1992 COVID-19 VACCINE (#1) COVID-19 VACCI NE (#1) [facility] Start: 1992 HEPATITIS B (1 of 3 - 3-dose series) HEPATITIS B (1 of 3 - 3-dose series) [facility] Start: 1992 Hepatitis B Vaccine (1 of 3 - 3-dose series) Hepatitis B Vaccine (1 of 3 - 3-dose series) [facility] Start: 1992 Tobacco Counseling Tobacco Counselin [facility] CBC W Auto Different ial panel - [...] [facility] Payers Date Payer Category Payer Medicaid HMO [employer] [id number] 2020 Medicaid [id number] 2020 Medicaid (Managed Care) [employer] [id number] 1992 Unknown [id number] 2.16.840.1.482527.3.579.2. 593 1992 Unknown [id number] 2.16.840.1.221985.3.579.2. 593 1992 Unknown [id number] 2.16.840.1.617838.3.579.2. 593 1992 Unknown [id number] 2.16.840.1.208795.3.579.2. 593 1992 Unknown [id number] 2.16.840.1.997434.3.579.2. 593 1992 Unknown [id number] 2.16.840.1.680946.3.579.2. 593 1992 Unknown [id number] 2.16.840.1.693937.3.579.2. 593 1992 Unknown [id number] 2.16.840.1.634685.3.579.2. 593 1992 Unknown [id number] 2.16.840.1.503005.3.579.2. 593 1992 Unknown [id number] 2.16.840.1.466783.3.579.2. 593 1992 Unknown [id number] 2.16.840.1.956320.3.579.2. 593 1992 Unknown [id number] 2.16.840.1.939892.3.579.2. 593 1992 Unknown [id number] 2.16.840.1.150804.3.579.2. 593 1992 Unknown [id number] 2.16.840.1.168151.3.579.2. 593 1992 Unknown [id number] 2.16.840.1.204170.3.579.2. 593 1992 Unknown [id number] 2.16.840.1.705536.3.579.2. 1286 1992 Unknown [id number] 2.16.840.1.251881.3.579.2. 1286 1992 Unknown [id number] 2.16.840.1.829793.3.579.2. 9 1992 Unknown [id number] 2.16.840.1.304045.3.579.2. 9 1992 Unknown [id number] 2.16.840.1.383296.3.579.2. 9 1992 Unknown [id number] 2.16.840.1.852705.3.579.2. 1259 1992 Unknown [id number] 2.16.840.1.367115.3.579.2. 9 1992 Unknown [id number] 2.16.840.1.699244.3.579.2. 1259 1992 Unknown [id number] 2.16.840.1.123203.3.579.2. 9 1992 Unknown [id number] 2.16.840.1.656914.3.579.2. 9 1992 Unknown [id number] 2.16.840.1.516852.3.579.2. 9 1959 Unknown [id number] Social History Date Type Detail Facility Start: 04-11-2022 End: 12-20-2023 Tobacco smoking status NHIS Smokes tobacco daily [facility] History of tobacco use Cigarette Smoker [facility] Start: 06-10-2020 End: 04-11-2022 Cigarettes smoked current (pack per day) - Reported 1 [facility] Start: 04-11-2022 End: 12-20-2023 Tobacco use and exposure Smokeless tobacco non-user [facility] Start: 04-11-2022 End: 02-25-2024 Alcohol intake Current drinker of alcohol (finding) [facility] Start: 04-11-2022 Alcohol Comment socially [facility] Start: 1990 Sex Assigned At Not on file [facility] Start: 06-10-2020 End: 05-04-2022 Tobacco use panel [facility] Adult Depression Screening Assessment 0 [facility] Start: 10-03-2022 Alcohol Comment caffeine intak e: 1-2 cups per day [facility] Start: 1990 Sex Assigned At Female N [facility] Start: 10-04-2022 Gender identity Identifies as female gender (finding) [facility] Start: 08-06-2023 [facility] Start: 01-11-2024 Alcoholic beverage intake Ex-drinker (finding) [facility] Start: 08-26-2018 Sex Female (finding) [facility] Clinical Notes 03-07-2022 to 02-26-2024 Tawny Matthews - 02/26/2024 2:14 PM MAXIMILIAN Ramírez - 02/25/2024 1:50 PM Cesar Rader LPN - 02/11/2024 10:50 AM EDTTelephone Encounter - Irais Turpin LPN - 01/24/2024 3:36 PM EDT Note Date & Type Note Facility 02-26-2024 History of Present illness Narrative [facility] Patient visited the [facility] and received food documented in this encounter [facility] 02-25-2024 History of Present illness Narrative Reason [...] nursing note reviewed. Exam conducted with a quality analyst/technical writer present. Vitals: Estimated body mass index is [...] in March 2024 to scheduled follow up. Irias Turpin RN [facility] 01-24-2024 Miscellaneous Notes I notified Amanda of Dr. Garcia's response. She will call after she delivers in March 2024 to scheduled follow up. Irais Turpin RN Amanda called stating she is currently and is being followed very closely by [facility] in [place] and her local [facility]. She states her high risk is d/t [...] Irais Turpin RN documented in this encounter [facility] 01-23-2024 Telephone encounter Note Amanda called stating she is currently and is being followed very closely by [facility] in [place] and her local [facility]. She states her high risk is d/t [...] possible lab work? Thanks Irais Turpin RN [facility] 11-13-[address] Christine office received ref and they will be calling patient to schedule appointment. Records faxed to Dr. Arteaga. Lawanda please send records to [facility] chastityheet in your box Images from the original note were not included. Spoke to pt. She would like to see endocrinology in [place]. Pt's OB did adjust synthroid recently and has been monitoring labs. TREASURE- please sign pended order. PSS- please arrange visit when order is signed. KAREN Peters Tiffany Weyer, Angela, RN Previous Messages ----- Message ----- From: Arslan Garcia MD Sent: 11/02/2023 12:08 PM EDT To: Obi Dunlap; [facility] Nurse Pool Given what sounds like patient is in first trimester and ongoing concerns of breast-feeding recommend she follow-up with endocrinology. documented in this encounter [facility] 11-13-[address] Christine office received ref and they will be calling patient to schedule appointment. [facility] 11-12-2023 Telephone encounter Note Records faxed to Dr. Arteaga. [facility] 11-12-2023 Telephone encounter Note Lawanda boswell send records to [employer] in your box [facility] 11-12-2023 Telephone encounter Note Images from the original note were not included. Spoke to pt. She would like to see endocrinology in [place]. Pt's OB did adjust synthroid recently and has been monitoring labs. TREASURE- please sign pended order. PSS- please arrange visit when order is signed. KAREN Peters Tiffany Weyer, Angela, RN Previous Messages ----- Message ----- From: Arslan Garcia MD Sent: 11/02/2023 12:08 PM EDT To: Obi Dunlap; [facility] Nurse Pool Given what sounds like patient is in first trimester and ongoing concerns of breast-feeding recommend she follow-up with endocrinology. [facility] 10-24-2023 Note HNO ID: [id number] Author: Arslan GARCIA MD Service: ? Author Type: Physician Type: Progress Notes Filed: 11/02/2023 12:08 Note Text: Unable to reach patient. [facility] 10-24-2023 History of Present illness Narrative Unable to reach patient. documented in this encounter [facility] 08-14-2023 Miscellaneous Notes TREASURE- please sign [...] Danna Pitts RN documented in this encounter [facility] 07-19-2023 Miscellaneous Notes Pt called to request labs sent to [facility]. Faxed to central scheduling. Edna Sal RN documented in this encounter [facility] 06-12-2023 History of Present illness Narrative [...] for appointments Arslan Garcia MD [facility] Nurse Pool; Obi Genao 4 months with labs. Orders have been placed in epic. documented in this encounter [facility] 02-08-2023 Note HNO ID: [id number] Author: Arslan Garcia MD Service: ? Author [...] Time Spent: 6 minutes Arslan Garcia MD [facility] 11-09-2022 Miscellaneous Notes Images from the original note were not included. Patient is called and scheduled. Arslan Garcia MD Radt [facility] Nurse [place]; Obi Genao 8 weeks with labs, orders placed, thank you documented in this encounter [facility] 07-17-2022 Miscellaneous Notes Appointment has been changed to phone appt. jT Funez Pt called in requesting to be switched to a phone visit tomorrow. Her kids are on spring break and a couple of them are sick. Labs have been done and resulted. PSS- please change to phone visit for tomorrow. Danna Pitts RN documented in this encounter [facility] 05-04-2022 History of Present illness Narrative Radiation Oncology - FollowupNote PATIENT NAME: Amanda Cortez PATIENT : 1990 DIAGNOSIS: Thyroid cancer, classic papillary thyroid carcinoma, status post total thyroidectomy and right neck exploration on 03/07/2022, stage I [id number]. HPI: Patient returns after further work-up and [...] and right neck exploration on 03/07/2022, stage [id number]. Patient does have significant thyroglobulin antibody however [...] for this encounter. documented in this encounter [facility] 04-25-2022 Miscellaneous Notes Patient had been rescheduled. Tj Funez Images from the original note were not included. Called patient to reschedule, LMOV. Tj [facility] Nurse Pool; Tj Funez Unable to reach please reschedule documented in this encounter [facility] 04-11-2022 Nurse Note Amanda Rojelio Cortez presents in office today for: Lab Draw during Office Visit . Ordering Provider: Felipe Garcia M.D. Test (s) ordered: TG Method for obtaining blood: Phlebotomy was performed, accessing right antecubital vein. Needle removed intact. Dressing secured. Patient denies discomfort, dizziness, light-headedness or weakness and left the department without assist. Danna Pitts, RN documented in this encounter [facility] 03-07-2022 Note OPERATIVE NOTE OPERATION DATE: [...] recovery room in good condition. [facility] Evaluation note Diagnosis Thyroid cancer (HCC)- Primary Malignant neoplasm of thyroid gland [facility] Thyroid cancer (HCC)- Primary Malignant neoplasm of thyroid gland [facility] Diagnosis Missed menses Amenorrhea Absence of menstruation documented in this encounter [facility]* Diagnosis Thyroid cancer (HCC)- Primary Malignant neoplasm of thyroid gland [facility] Diagnosis Thyroid cancer (HCC)- Primary Malignant neoplasm of thyroid gland [facility] Diagnosis Thyroid cancer (HCC)- Primary Malignant neoplasm of thyroid gland [facility] Diagnosis Third trimester state, incidental Thyroid disease (CMS/HCC) Unspecified disorder of thyroid 29 weeks gestation of History of placental abruption Non compliance w medication regimen documented in this encounter [facility]* Diagnosis Third trimester state, incidental 31 weeks gestation of Thyroid disease (CMS/HCC) Unspecified disorder of thyroid documented in this encounter [facility]* Diagnosis 24 weeks gestation of Food insecurity documented in this encounter [facility] [employer] SystemInstructionsNot on filedocumented in this encounter [facility] [employer] Summary Purpose Family History No Family [...] cancer (HCC) Procedures CONSULT TO ENDOCRINOLOGY OFFICE/OUTPATIENT [facility] 60 MINUTES Arslan Garcia MD [address] [place] [address] [place] [address] Referral ID Status Reason Start Date Expiration Date Visits Requested Visits Authorized [id number] Authorized PCP Requested Referral 11/12/2023 11/11/2024 1 1 Additional Source Comments Source Comments (unrecognize d section and content) In the event this informatio n is protected by the Federal Confidentiality of Alcohol and Drug Abuse Patient Records regulations: The Federal rules restrict any use of the information to criminally investigate or prosecute any alcohol or drug abuse patient.[facility] the event this information is protected by the Federal Confidentiality of Alcohol and Drug Abuse Patient Records regulations: The Federal rules restrict any use of the information to criminally investigate or prosecute any alcohol or drug abuse patient.[facility] the event this information is protected by the Federal Confidentiality of Alcohol and Drug Abuse Patient Records regulations: The Federal rules restrict any use of the information to criminally investigate or prosecute any alcohol or drug abuse patient.[facility] the event this information is protected by the Federal Confidentiality of Alcohol and Drug Abuse Patient Records regulations: The Federal rules restrict any use of the information to criminally investigate or prosecute any alcohol or drug abuse patient.[facility] the event this information is protected by the Federal Confidentiality of Alcohol and Drug Abuse Patient Records regulations: The Federal rules restrict any use of the information to criminally investigate or prosecute any alcohol or drug abuse patient.[facility] the event this information is protected by the Federal Confidentiality of Alcohol and Drug Abuse Patient Records regulations: The Federal rules restrict any use of the information to criminally investigate or prosecute any alcohol or drug abuse patient.[facility] the event this information is protected by the Federal Confidentiality of Alcohol and Drug Abuse Patient Records regulations: The Federal rules restrict any use of the information to criminally investigate or prosecute any alcohol or drug abuse patient.[facility] the event this information is protected by the Federal Confidentiality of Alcohol and Drug Abuse Patient Records regulations: The Federal rules restrict any use of the information to criminally investigate or prosecute any alcohol or drug abuse patient.[facility] the event this information is protected by the Federal Confidentiality of Alcohol and Drug Abuse Patient Records regulations: The Federal rules restrict any use of the information to criminally investigate or prosecute any alcohol or drug abuse patient.[facility] the event this information is protected by the Federal Confidentiality of Alcohol and Drug Abuse Patient Records regulations: The Federal rules restrict any use of the information to criminally investigate or prosecute any alcohol or drug abuse patient.[facility] the event this information is protected by the Federal Confidentiality of Alcohol and Drug Abuse Patient Records regulations: The Federal rules restrict any use of the information to criminally investigate or prosecute any alcohol or drug abuse patient.[facility] Hospital[facility] the event this information is protected by the Federal Confidentiality of Alcohol and Drug Abuse Patient Records regulations: The Federal rules restrict any use of the information to criminally investigate or prosecute any alcohol or drug abuse patient.[facility] Reason for Visit (unrecogniz ed section [...] Care Teams (unrecognized sec tion and content) Tobacco Checkout Clerk Relationship Specialty Start Date End Date Sara Medellin MD [address] [place] [address] PCP - General Family Medicine 04/11/22 Tobacco Checkout Clerk Relationship Specialty Start Date End Date Sara Medellin MD [address] [place] [address] PCP - General Family Medicine 04/11/22 Tobacco Checkout Clerk Relationship Specialty Start Date End Date Sara Medellin MD [address] [place] [id number] PCP - General Family Medicine 04/11/22 Tobacco Checkout Clerk Relationship Specialty Start Date End Date Sara Medellin MD PCP - General Family Medicine 04/11/22 Tobacco Checkout Clerk Relationship Specialty Start Date End Date Sara Medellin MD PCP - General Family Medicine 04/11/22 Tobacco Checkout Clerk Relationship Specialty Start Date End Date Sara Medellin MD [address] [place] [address] PCP - General Family Medicine 10/03/22 Tobacco Checkout Clerk Relationship Specialty Start Date End Date Sara Medellin MD PCP - General Family Medicine 04/11/22 Tobacco Checkout Clerk Relationship Specialty Start Date End Date Sara Medellin MD PCP - General Family Medicine 04/11/22 Tobacco Checkout Clerk Relationship Specialty Start Date End Date Sara Medellin MD PCP - General Family Medicine 04/11/22 Tobacco Checkout Clerk Relationship Specialty Start Date End Date Sara Medellin MD [address] [place] [address] PCP - General Family Medicine 10/03/22 Tobacco Checkout Clerk Relationship Specialty Start Date End Date Sara Medellin MD [address] [facility] [place] [address] PCP - General Family Medicine 10/03/22 Tobacco Checkout Clerk Relationship Specialty Start Date End Date Sara Medellin MD [address] [place] [place] [address] PCP - General Family Medicine 10/03/22 Tobacco Checkout Clerk Relationship Specialty Start Date End Date Sara Medellin MD [address] [facility] [place] [address] PCP - General 01/10/24 INFORMATION SOURCE (unrecogn ized section and content) DATE CREATED AUTHOR 09/02/2022 [facility] DATE CREATED AUTHOR AUTHOR'S ORGANIZ ATION 01/11/2024 [facility] DATE CREATED AUTHOR AUTHOR'S ORGANIZ ATION 01/13/2024 [facility] DATE CREATED AUTHOR AUTHOR'S ORGANIZ ATION 03/11/2024 [facility] Specialists EPIC FOR RECORDS PERTAINING TO [...] BE BASED ON THE PRIMARY CLINICAL RECORDS. [employer] provides no warranty or guarantee of the accuracy or completeness of information in this document.
--- NOTE | 2024-03-14 13:11 | US_ITS ---
[address] [address] Patient Name: LITO RAMIREZ MRN: [id number] date: 1990 Sex: F Assigned Patient Location: [facility] Current Patient Location: Accession/Order Number: [id number] Exam Date: 03/14/2024 13:15 Report Date: 03/15/2024 06:24 At the request of: MARTINE LESTER Procedure: US OB BPP w non-stress EXAMINATION: US OB BPP w non-stress HISTORY:History of placental abruption COMPARISON: Ultrasound OB biophysical 03/07/2024 TECHNIQUE: Ultrasound biophysical profile was performed in the radiology department. BREATHING MOVEMENTS: 0 GROSS BODY MOVEMENTS: 2 TONE: 2 QUALITATIVE AMNIOTIC FLUID VOLUME: 2 PRESENTATION: CEPHALIC HEART RATE: 137.06 bpm AMNIOTIC FLUID VOLUME: 17.24 cm GESTATIONAL AGE: 33 weeks 4 days US/US OB BPP w non-stress IMPRESSION: Total biophysical profile score: 6 Electronically authenticated by: AMADOR GUERRERO Date: 03/15/2024 06:24
[2024-03-14 14:24] VITALS: BP 99/57; PULSE 71
== END 2024-03-14 15:00 | disposition home or self-care (01) ==
LOC: US 06:47 → FBC 13:08
PROVIDERS: PCP Family Medicine; Visit Provider Obstetrics & Gynecology
DX: O99.283 Endocrine, nutritional and metabolic diseases complicating pregnancy, third trimester (principal); Z3A.33 33 weeks gestation of pregnancy
CPT/HCPCS: 76818

== ENCOUNTER 2024-03-18 13:08 | Outpatient (OUT) | payer OTHER, SELFPAY ==
--- NOTE | 2024-03-18 13:29 | US_ITS ---
[address] [address] Patient Name: LITO RAMIREZ MRN: [id number] date: 1990 Sex: F Assigned Patient Location: [facility] Current Patient Location: Accession/Order Number: [id number] Exam Date: 03/18/2024 13:37 Report Date: 03/19/2024 03:40 At the request of: MARTINE LESTER Procedure: US OB BPP w non-stress EXAMINATION: US OB BPP w non-stress HISTORY:REPEAT BPP COMPARISON: Ultrasound OB biophysical 03/14/2024 TECHNIQUE: Ultrasound biophysical profile was performed in the radiology department. BREATHING MOVEMENTS: 2 GROSS BODY MOVEMENTS: 2 TONE: 2 QUALITATIVE AMNIOTIC FLUID VOLUME: 2 PRESENTATION: CEPHALIC HEART RATE: 147.54 bpm AMNIOTIC FLUID VOLUME: 20.83 cm GESTATIONAL AGE: 34 weeks 1 day US/US OB BPP w non-stress IMPRESSION: Total biophysical profile score: 8 Electronically authenticated by: AMADOR GUERRERO Date: 03/19/2024 03:40
[2024-03-18 13:41] VITALS: BP 113/59; PULSE 83
== END 2024-03-18 13:45 | disposition home or self-care (01) ==
LOC: FBCO 13:10 → FBC 13:13
PROVIDERS: PCP Family Medicine; Visit Provider Obstetrics & Gynecology
DX: O26.893 Other specified pregnancy related conditions, third trimester (principal); Z3A.34 34 weeks gestation of pregnancy
CPT/HCPCS: 76818

== ENCOUNTER 2024-03-21 08:40 | Outpatient (OUT) | payer OTHER, SELFPAY ==
[2024-03-21 13:09] VITALS: BP 152/53; PULSE 79
--- NOTE | 2024-03-21 13:29 | US_ITS ---
[address] [address] Patient Name: LITO RAMIREZ MRN: [id number] date: 1990 Sex: F Assigned Patient Location: [facility] Current Patient Location: Accession/Order Number: [id number] Exam Date: 03/21/2024 13:35 Report Date: 03/22/2024 05:07 At the request of: MARTINE LESTER Procedure: US OB BPP w non-stress EXAMINATION: US OB BPP w non-stress HISTORY:THYROID DISEASE E07.9 COMPARISON: Ultrasound OB biophysical 03/18/2024 TECHNIQUE: Ultrasound biophysical profile was performed in the radiology department. BREATHING MOVEMENTS: 2 GROSS BODY MOVEMENTS: 2 TONE: 2 QUALITATIVE AMNIOTIC FLUID VOLUME: 2 PRESENTATION: CEPHALIC HEART RATE: 145.16 bpm AMNIOTIC FLUID VOLUME: 19.37 cm GESTATIONAL AGE: 34 weeks 4 days US/US OB BPP w non-stress IMPRESSION: Total biophysical profile score: 8 Electronically authenticated by: AMADOR GUERRERO Date: 03/22/2024 05:07
== END 2024-03-21 14:05 | disposition home or self-care (01) ==
LOC: US 08:42 → FBC 13:02
PROVIDERS: PCP Family Medicine; Visit Provider Obstetrics & Gynecology
DX: O99.283 Endocrine, nutritional and metabolic diseases complicating pregnancy, third trimester (principal); E07.9 Disorder of thyroid, unspecified; Z3A.34 34 weeks gestation of pregnancy
CPT/HCPCS: 76818

== ENCOUNTER 2024-03-28 08:28 | Outpatient (OUT) | payer OTHER, SELFPAY ==
--- OUTSIDE RECORDS SUMMARY | 2024-03-28 08:32 | XMS_ITS | CCD ---
Author Organization [facility] Care Team Providers Care [employer] Certified Internetwork Expert Name Role Phone Sara Medellin MD Primary Care Provider [phone] RAIZA, DR GUERRA Consulting Unavailable HOY ., [...] TIMMIS, DR GUERRA Attending Unavailable TIMMIS, DR GUERAR Admitting Unavailable HARRY, DHRUV Consulting Unavailable HARRY, [...] Unavailable Sara Medellin MD Primary Care Provider [phone] Sara Medellin MD Primary Care Provider [phone] Sara Medellin MD Primary Care Provider [phone] SARA MEDELLIN Primary Care Unavailable Arslan GARCIA Attending Unavailable SARA MEDELLIN Primary Care Unavailable Arslan GARCIA Attending Unavailable SARA MEDELLIN Primary Care Unavailable YFN MICHELLE Attending Unavailable SHANIA, ACOSTA R Referring Unavailable SARA MEDELLIN Primary Care Unavailable SHANIA, ACOSTA R Referring Unavailable SARA MEDELLIN Primary Care Unavailable Sara Medellin MD Primary Care Provider [phone] SHANIA, ACOSTA Attending Unavailable SHANIA, ACOSTA Attending Unavailable SHANIA, ACOSTA Attending Unavailable SHANIA, ACOSTA Attending Unavailable SHANIA, ACOSTA Attending Unavailable SHANIA, ACOSTA Attending Unavailable KIM MCKEON Attending Unavailable SHANIA, ACOSTA Attending Unavailable SHANIA, ACOSTA Attending Unavailable Allergies Allergy Classification Reported Allergen(s) Allergy Type Date of Onset Reaction(s) Facility (20 sources) Cefaclor; Translations: [CEFACLOR] Drug Allergy 04-11-20 Hives, Shortness of Breath, Anaphylaxis [facility] (13 sources) Penicillins; Translations: [PENICILLINS] Drug Allergy 04-11-20 22 Hives, Shortness of Breath [facility] (2 sources) Cefaclor Drug Allergy 05-10-19 14 [facility] (2 sources) Penicillins Drug allergy (disorder) 05-10-19 14 [facility] (16 sources) Penicillin G sodium; Translations: [PENICILLIN G SODIUM] Allergy to substance 09-24-19 Anaphylaxis [facility] (15 sources) Cephalosporins (Antibiotic); Translations: [CEPHALOSPORINS] Propensity to adverse reactions to drug (disorder) 12-17-19 Anaphylaxis [facility] (15 sources) Penicillin; Translations: [PENICILLIN G] Drug Allergy 12-17-19 Anaphylaxis [facility] (1 source) Penicillin G Drug Allergy 12-20-19 24 Anaphylaxis [facility] Medications Current Medications [...] aspirin 81 mg delayed release oral tablet (14 sources) Platelet Aggregation Inhibitor, Nonsteroidal Anti-inflammatory Drug Start: 10-16-2023 End: 10-15-2024 take 1 tablet by mouth once daily aspirin 81 MG EC tablet Indications: First trimester Take 1 tablet (81 mg) by mouth Daily 30 tablet 10/16/2023 10/15/2024 Active aspirin 81 mg ch ewable tablet Chew 1 tablet (81 mg total) and swallow in the morning. Active azithromycin 250 mg oral tablet (6 sources) Macrolide Antimicrobial Start: 02-26-2024 End: 03-24-2024 azithromycin (Zithromax Z-Jacobo) 250 MG tablet Indications: Sinusitis, unspecified chronicity, unspecified location As directed 6 tablet 02/26/2024 03/24/2024 Discontinued citalopram 20 mg oral tablet (16 sources) Serotonin Reuptake Inhibitor Start: 11-28-2023 take [...] 800 mg by mouth . levothyroxine sodium 0.025 mg oral tablet (20 sources) l-Thyroxine Start: 2023 End: 2024 take 1 tablet by mouth before mealtime levothyroxine (Synthroid) 25 MCG tablet Indications: 33 weeks gestation of , Thyroid disease (CMS/HCC) Take 1 tablet (25 mcg) by mouth in the morning. Take before meals. 30 tablet 11 03/10/2024 03/10/2025 Active Start: 10-16-2023 take 1 tablet by олег th before mealtime levothyroxine (Synthroid, Levoxyl) 200 MCG [...] Comment on above: TAKE ONE TABLET BY [facility] TWICE A DAY FOR 30 DAYS [...] on above: Take 1 capsule by mo [facility] once daily. norethindrone 0.35 mg [...] Momma's for breast feeding 27-1 MG tablet (13 sources) Start: 01-14-2024 take 1 tablet by [...] Onset: 01-11-2024 02-26-2024 Episodic Cancer of thyroid (20 sources) Malignant tumor of thyroid gland; Translations: [Malignant neoplasm of thyroid gland] Onset: 03-07-2022 Chronic Cancer of thyroid (1 source) Personal history of malignant neoplasm of thyroid; Translations: [Personal history of malignant neoplasm of thyroid] Onset: 01-11-2024 Episodic Complications of surgical procedures or medical care (1 source) Postprocedural hypothyroidism; Translations: [Postprocedural hypothyroidism] Onset: 01-11-2024 Chronic Conditions associated with dizziness or vertigo (15 sources) Cochlear hydrops of right inner ear; [...] 08-07-2022 Episodic Other aftercare (1 source) Other jail (current) drug therapy; Translations: [OTH [facility] CURRENT DRUG THERAPY] Onset: 08-24-2022 Episodic Other [...] Episodic Other ear and sense organ disorders (15 sources) Asymmetrical sensorineural hearing loss; Translations: [Sensorineural [...] 03-16-2022 Chronic Other and delivery including normal (20 sources) Vaginal delivery; Translations: [Encounter for full-term [...] ] Onset: 01-11-2024 Episodic Residual codes; unclassified (13 sources) Gestation period, 29 weeks; Translations: [29 weeks gestation of ] Onset: 02-11-2024 02-11-2024 Episodic Residual codes; unclassified (13 sources) History of placental abruption; Translations: [Personal history of other complications of , childbirth and the puerperium] Onset: 02-11-2024 02-11-2024 Episodic Residual codes; unclassified (13 sources) Noncompliance with medication regimen; Translations: [Non compliance w medication regimen] Onset: 02-11-2024 02-11-2024 Episodic Residual codes; unclassified (2 sources) Gestation period, 31 weeks; Translations: [31 weeks gestation of ] 02-25-2024 Episodic Residual codes; unclassified (1 source) Gestation period, 24 weeks; Translations: [24 weeks gestation of ] 02-26-2024 Episodic Residual codes; unclassified (2 sources) Gestation period, 33 weeks; Translations: [33 weeks gestation of ] 03-10-2024 Episodic Residual codes; unclassified (2 sources) Gestation period, 35 weeks; Translations: [35 weeks gestation of ] 03-24-2024 Episodic Substance-related disorders (1 source) Nicotine dependence, [...] 01-10-2022 Episodic Diseases of mouth; excluding dental (16 sources) Other lesions of oral mucosa; Translations: [Oropharyngeal lesion] Onset: 02-26-2022 Resolved: 09-23-2022 09-23-2022 Episodic E Codes: Fire/burn (1 source) Contact with other heat and hot substances, initial encounter; Translations: [CONTACT OTH HEAT HOT SUBSTANCE INIT] Onset: 12-13-2021 Episodic Esophageal disorders (16 sources) Gastro-esophageal reflux disease without esophagitis; Translations: [Gastroesophageal reflux disease] Onset: 03-16-2022 Resolved: 09-23-2022 09-23-2022 Chronic Menstrual disorders (20 sources) Amenorrhea, unspecified; Translations: [Missed period] Onset: 08-17-2022 Resolved: 09-23-2022 Chronic Miscellaneous mental health disorders (15 sources) depression; Translations: [ depression] Onset: 09-23-2022 [...] Episodic Other ear and sense organ disorders (15 sources) Bilateral tinnitus; Translations: [Tinnitus, bilateral] Onset: 10-04-2022 10-04-2022 Episodic Other skin disorders (3 sources) Rash and other nonspecific skin eruption; Translations: [RASH OTH NONSPECIFIC SKIN ERUPTION] Onset: 02-06-2022 Episodic Thyroid disorders (20 sources) Disorder of thyroid, unspecified; Translations: [Mass of thyroid gland] Onset: 02-26-2022 Resolved: 09-23-2022 09-23-2022 Episodic Unclassified (1 source) CONTACT W/AND (SUSP) EXPOS COVID-19; Translations: [CONTACT W/AND (SUSP) EXPOS COVID-19] Onset: 01-04-2022 Results Test Name Value Interpretation Reference Range Facility Urinalysis macro (dipstick) panel (U)on 03-24-2024 Bilirubin, UA Positive Negative - 4(70) +++ mg/dL [facility] Comment on above: moderate Blood, UA Negative Negative - 50 Maury/mcL [facility] Clarity, UA Clear [facility] Color, UA Amanda [facility] Glucose, UA Positive Negative - 1999(110) ++++ mg/dL [facility] Comment on above: 100 Interpretation and review of laboratory results Abnormal [facility] Ketones, UA Positive Negative - 160(16) ++++ mg/dL [facility] Comment on above: 15 Leukocytes, UA Negative Negative - 500+++ Fan/mcL [facility] Nitrite, UA Negative Negative - Positive [facility] pH, UA 6.5 5 - 9 [facility] Protein, UA Positive Negative - 1999(20) ++++ mg/dL [facility] Comment on above: 100 Spec Grav, UA 1.025 1 - 1.03 [facility] Urobilinogen, UA 2.0 0.2 - 12 mg/dL [facility] Referral to Food C linicon 02-26-2024 [facility] Urinalysis macro (dipstick) panel (U)on 02-11-2024 Bilirubin, UA Negative Negative - 4(70) +++ mg/dL [facility] Blood, UA Negative Negative - 50 Maury/mcL [facility] Healthcare Clarity, UA Clear [facility] Color, UA Yellow [facility] Glucose, UA Negative Negative - 1999(110) ++++ mg/dL [facility] Interpretation and review of laboratory results Abnormal [facility] Ketones, UA Negative Negative - 160(16) ++++ mg/dL [facility] Leukocytes, UA Positive Negative - 500+++ Fan/mcL [facility] Nitrite, UA Negative Negative - Positive [facility] pH, UA 7 5 - 9 [facility] Health[facility] e Protein, UA Positive Negative - 2000(20) ++++ mg/dL [facility] Spec Grav, UA 1.02 1 - 1.03 [facility] care Urobilinogen, UA 1.0 0.2 - 12 mg/dL [facility] ALL THYROID STIM HORMONEon 1 Interpretation and review of laboratory results Abnormal [facility] TSH Qn 28.537 m[IU]/L High [facility] Healt hcare [facility] Cytology Cervical or vaginal smear or scraping studyon 11-13-2023 [facility] CNPNon 11-12-2023 CNPN Telephone (RADTSA) ASHLEYAMANDA Rojelio ([id number]) 1990 F Date Time Provider Department 11/12/23 Arslan GARCIA During your visit today, we recorded the following information about you: Danna Pitts RN 11/12/2023 11:25 AM Signed Spoke to pt. She would like to see endocrinology in [place]. Pt's OB did adjust synthroid recently and has been monitoring labs. TREASURE- please sign pended order. PSS- please arrange visit when order is signed. KAREN Peters, Danna Mcdowell RN Previous Messages ----- Message ----- From: Arslan Garcia MD Sent: 11/02/2023 12:08 PM EDT To: Obi Kern Sec; Radgermaine Faust Nurse Mauro Given what sounds like patient [...] to hear back from patient. Meryl Nguyen Sharmaine Nguyen Pss, Meryl 12/05/2023 9:12 AM Signed [...] from patient. Meryl Schmid Nguyen Pss, Meryl 01/09/2024 2:[address] Arteaga office spoke with Miguel. She states patient has not called their office back and as of now they are waiting to hear from patient. I called tried to reach patient this afternoon unable to reach and unable to leave message at this time. Merylmaryann Schmid Allergies As of Date: 11/12/2023 Noted [...] [C73] Order(s):CONSULT TO ENDOCRINOLOGY [9007] Order #: [id number]: 1 FUTURE Prescriptions as of 01/09/2024 - [...] Encounter Status:Closed by DANNA [facility]ITTS [facility]KEVIN[facility] AMANDA CORTEZ ([id number]) 1990 F Date Time Provider Department 07/19/23 EDNA SAL During your visit today, we recorded the following information about you: Edna Sal RN 07/19/2023 10:42 AM Signed Pt called to request labs sent to [facility]. Faxed to central scheduling. Edna Sal [...] Encounter Status:Closed by EDNA SAL on 07/19/23 [facility] Emelina 06-25-2023 [facility] Telephone (NU) AMANDA CORTEZ ([id number]) 1990 F Date Time Provider Department 06/25/23 Arslan GARCIA During your visit today, we recorded the following information about you: Danna Pitts, RN 06/25/2023 9:20 AM Signed Call placed [...] Signed Patients lab orders were sent to [facility] and I scheduled her a [...] (HCC) [C73] Order(s):T4/THYROXIN E [SQT4] Order #: [id number] FUTURE THYROID STIMULATING HORMONE [SQTSH] Order #: [id number] FUTURE THYROGLOBULIN, SERUM WITH REFLEX TO IA OR LC-MS/MS [SQTHYRORF] Order #: [id number] FUTURE Prescriptions as of 08/23/2023 - levothyroxine [...] Encounter Status:Closed by Arslan GARCIA on 08/15/23 [facility] 02-14-2023 CNPN Telephone (NCCAP) AMANDA CORTEZ ([id number]) 1990 F Date Time Provider Department 02/14/23 [facility] During your visit today, we recorded the following information about you: Obi Genao 02/14/2023 9:54 AM Signed Patient is scheduled for appointments Arslan Garcia MD P Radt [facility]; Obi Genao 4 months with labs. [facility]. Allergies As of Date: 02/14/2023 Noted Allergy Reaction CECLOR (CEFACLOR) 04/11/2022 4 - Hives 12 - Shortness of Breath PENICILLINS 04/11/2022 4 - Hives 12 - Shortness of Breath Date Reviewed: 05/04/2022 Reviewed by: Jerman July - Fully Assessed Reason for Visit: Appointment Confirmation [[id number]] Prescriptions as of 02/14/2023 - levothyroxine (SYNTHROID) [...] by mouth. - OTC PRODUCT Supplement by [employer] [facility]ma[employer] for breast feeding Problem List As Of Date: 02/14/2023 (None) Encounter Status:Closed by OBI GENAO on 02/14/23 Normal [facility] CBC W Auto Differential pane l (Bld)on 02-01-2023 Basophils (Bld) [#/Vol] 0.04 10*3/uL Normal <0.11 [facility] Comment on above: Order Comment: Speci men Type: BLOOD SPECIMEN Ordering Facility: [facility] Address: [address] [place] [address] Performed By: #### 5 7021-8 #### [facility] CLIA [id number] [address] [place] [address] 26133 Basophils/100 WBC (Bld) 0.5 % Normal [facility] Comment on above: Order Comment: Speci men Type: BLOOD SPECIMEN Ordering Facility: [facility] Address: [address] [place] [address] Performed By: #### 5 7021-8 #### [facility] CLIA [id number] [address] [place] [address] 70985 Differential cell count method Nom (Bld) Auto Normal [facility] Comment on above: Order Comment: Speci men Type: BLOOD SPECIMEN Ordering Facility: [facility] Address: [address] [place] [address] Performed By: #### 5 7021-8 #### [facility] CLIA [id number] [address] [place] [address] 50643 Eosinophils (Bld) [#/Vol] 0.19 10*3/uL Normal <0.46 [facility] Comment on above: Order Comment: Speci men Type: BLOOD SPECIMEN Ordering Facility: [facility] Address: [address] [place] [address] Performed By: #### 5 7021-8 #### [facility] CLIA [id number] [address] [place] [address] 79984 Eosinophils/100 WBC (Bld) 2.5 % Normal [facility] Comment on above: Order Comment: Speci men Type: BLOOD SPECIMEN Ordering Facility: [facility] Address: [address] [place] [address] Performed By: #### 5 7021-8 #### [facility] CLIA [id number] [address] [place] [address] 65178 Erythrocyte distribution width (RBC) [Ratio] 13.3 % Normal 11.5-15.0 [facility] Comment on above: Order Comment: Speci men Type: BLOOD SPECIMEN Ordering Facility: [facility] Address: [address] [place] [address] Performed By: #### 5 7021-8 #### [facility] CLIA [id number] [address] [place] [address] 72897 Hematocrit (Bld) [Volume fraction] 47.7 % High 36.0-46.0 [facility] Comment on above: Order Comment: Speci men Type: BLOOD SPECIMEN Ordering Facility: [facility] Address: [address] [place] [address] Performed By: #### 5 7021-8 #### [facility] CLIA [id number] [address] [place] [address] 98772 Hemoglobin (Bld) [Mass/Vol] 15.6 g/dL High 11.5-15.5 [facility] Comment on above: Order Comment: Speci men Type: BLOOD SPECIMEN Ordering Facility: [facility] Address: [address] [place] [address] Performed By: #### 5 7021-8 #### [facility] CLIA [id number] [address] [place] [address] Immature granulocytes (Bld) [#/Vol] 0.03 10*3/uL Normal <0.10 [facility] Comment on above: Order Comment: Speci men Type: BLOOD SPECIMEN Ordering Facility: [facility] Address: [address] [place] [address] Performed By: #### 5 7021-8 #### [facility] CLIA [id number] [address] [place] [address] 69086 Immature granulocytes/100 WBC (Bld) 0.4 % Normal [facility] Comment on above: Order Comment: Speci men Type: BLOOD SPECIMEN Ordering Facility: [facility] Address: [address] [place] [address] Performed By: #### 5 7021-8 #### [facility] CLIA [id number] [address] [place] [address] 74239 Lymphocytes (Bld) [#/Vol] 2.30 10*3/uL Normal 1.00-4.00 [facility] Comment on above: Order Comment: Speci men Type: BLOOD SPECIMEN Ordering Facility: [facility] Address: [address] [place] [address] Performed By: #### 5 7021-8 #### [facility] CLIA [id number] [address] [place] [address] 82323 Lymphocytes/100 WBC (Bld) 29.7 % Normal [facility] Comment on above: Order Comment: Speci men Type: BLOOD SPECIMEN Ordering Facility: [facility] Address: [address] [place] [address] Performed By: #### 5 7021-8 #### [facility] CLIA [id number] [address] [place] [address] 37475 MCH (RBC) [Entitic mass] 28.8 pg Normal 26.0-34.0 [facility] Comment on above: Order Comment: Speci men Type: BLOOD SPECIMEN Ordering Facility: [facility] Address: [address] [place] [address] Performed By: #### 5 7021-8 #### [facility] CLIA [id number] [address] [place] [address] 48410 MCHC (RBC) [Mass/Vol] 32.7 g/dL Normal 30.5-36.0 [facility] Comment on above: Order Comment: Speci men Type: BLOOD SPECIMEN Ordering Facility: [facility] Address: [address] [place] [address] Performed By: #### 5 7021-8 #### [facility] CLIA [id number] [address] [place] [address] 26120 MCV (RBC) [Entitic vol] 88.2 fL Normal 80.0-100.0 [facility] Comment on above: Order Comment: Speci men Type: BLOOD SPECIMEN Ordering Facility: [facility] Address: [address] [place] [address] Performed By: #### 5 7021-8 #### [facility] CLIA [id number] [address] [place] [address] 05296 Monocytes (Bld) [#/Vol] 0.49 10*3/uL Normal <0.87 [facility] Comment on above: Order Comment: Speci men Type: BLOOD SPECIMEN Ordering Facility: [facility] Address: [address] [place] [address] Performed By: #### 5 7021-8 #### [facility] CLIA [id number] [address] [place] [address] 00717 Monocytes/100 WBC (Bld) 6.3 % Normal [facility] Comment on above: Order Comment: Speci men Type: BLOOD SPECIMEN Ordering Facility: [facility] Address: [address] [place] [address] Performed By: #### 5 7021-8 #### [facility] CLIA [id number] [address] [place] [address] 19720 Neutrophils (Bld) [#/Vol] 4.70 10*3/uL Normal 1.45-7.50 [facility] Comment on above: Order Comment: Speci men Type: BLOOD SPECIMEN Ordering Facility: [facility] Address: [address] [place] [address] Performed By: #### 5 7021-8 #### [facility] CLIA [id number] [address] [place] [address] 55532 Neutrophils/100 WBC (Bld) 60.6 % Normal [facility] Comment on above: Order Comment: Speci men Type: BLOOD SPECIMEN Ordering Facility: [facility] Address: [address] [place] [address] Performed By: #### 5 7021-8 #### [facility] CLIA [id number] [address] [place] [address] 78730 Nucleated RBC (Bld) [#/Vol] 10*3/uL Normal <0.01 [facility] Comment on above: Order Comment: Speci men Type: BLOOD SPECIMEN Ordering Facility: [facility] Address: [address] [place] [address] Performed By: #### 5 7021-8 #### [facility] CLIA [id number] [address] [place] [address] 09696 Nucleated RBC/100 WBC (Bld) [Ratio] 0.0 /100 WBC Normal [facility] Comment on above: Order Comment: Speci men Type: BLOOD SPECIMEN Ordering Facility: [facility] Address: [address] [place] [address] Performed By: #### 5 7021-8 #### [facility] CLIA [id number] [address] [place] [address] 31924 Platelet mean volume (Bld) [Entitic vol] 9.6 fL Normal 9.0-12.7 [facility] Comment on above: Order Comment: Speci men Type: BLOOD SPECIMEN Ordering Facility: [facility] Address: [address] [place] [address] Performed By: #### 5 7021-8 #### [facility] CLIA [id number] [address] [place] [address] 42759 Platelets (Bld) [#/Vol] 248 10*3/uL Normal 150-400 [facility] Comment on above: Order Comment: Speci men Type: BLOOD SPECIMEN Ordering Facility: [facility] Address: [address] [place] [id number] Performed By: #### 5 7021-8 #### [facility] CLIA [id number] [address] [place] [address] 35302 RBC (Bld) [#/Vol] 5.41 10*6/uL High 3.90-5.20 [facility] Comment on above: Order Comment: Speci men Type: BLOOD SPECIMEN Ordering Facility: [facility] Address: [address] [place] [address] Performed By: #### 5 7021-8 #### [facility] CLIA [id number] [address] [place] [address] 99528 WBC (Bld) [#/Vol] 7.75 10*3/uL Normal 3.70-11.00 [facility] Comment on above: Order Comment: Speci men Type: BLOOD SPECIMEN Ordering Facility: [facility] Address: [address] [place] [address] Performed By: #### 5 7021-8 #### [facility] CLIA [id number] [address] [place] [address] 80381 T3 SerPl-mCncon 02-01-2023 T3 [Mass/Vol] 123 ng/dL Normal 79-165 [facility] Comment on above: Order Comment: Speci men Type: BLOOD SPECIMEN Ordering Facility: [facility] Address: [address] [place] [address] Performed By: #### 3 053-6, 3016-3, 3026-2 #### [facility] CLIA [id number] [address] [facility] [id number] [id number] [place] T4 SerPl-mCncon 02-01-2023 T4 [Mass/Vol] 11.9 ug/dL High 5.5-10.2 [facility] Comment on above: Order Comment: Speci men Type: BLOOD SPECIMEN Ordering Facility: [facility] Address: [address] [place] [address] Performed By: #### 3 053-6, 3016-3, 3026-2 #### [facility] CLIA [id number] [address] [facility] [address] [id number] [address] [place] THYROGLOBULIN BY MASS SPECTR OMETRYon 02-01-2023 THYROGLOBULIN, LC-MS/MS <0.5 Low 1.3-31.8 [facility] Comment on above: Order Comment: Chel iverson Type: BLOOD SPECIMEN Ordering Facility: [facility] Address: [address] [place] [address] Result Comment: Results obtained with different test [...] developed and its performance characteristics determined by [employer]. It has not been cleared or approved by the [place] Food and Drug Administration. This test was performed in a CLIA certified laboratory and is intended for clinical purposes. Performed By: [employer] [address] [place] [address] Library Helper: Prem Willis MD, PhD CLIA Number: [id number] Performed By: #### T [facility] #### [facility] CLIA [id number] [address] [place] [address] 25463 TSH SerPl-aCncon 02-01-2023 TSH Qn 0.960 m[IU]/L Normal 0.270-4.200 [facility] Comment on above: Order Comment: Chel iverson Type: BLOOD SPECIMEN Ordering Facility: [facility] Address: [address] [place] [address] Result Comment: If t he patient is [...] By: #### 3 053-6, 3016-3, 3026-2 #### [facility] CLIA [id number] [address] [place] [address] [place] [facility] PREG QUANT HCGon 08-17-2022 HCG QUANT 1 mIU/mL Normal [facility] Comment on above: Performed By: #### P REGQNT #### [facility] [address] [place] [address] Dr. Prashant Kang HCG RANGE SEE BELOW Normal [facility] Comment on above: Result Comment: 5-50 0.2-1 WEEK 50-500 1-2 WEEKS 100-5,000 2-3 WEEKS 500-10,000 3-4 WEEKS 1,000-50,000 4-5 WEEKS 10,000-100,000 5-6 WEEKS 15,000-200,000 6-8 WEEKS 10,000-100,000 2-3 MONTHS Performed By: #### P REGQNT #### [facility] [address] [place] [address] Dr. Prashant Kang PREG QUANT HCGon 07-04-2022 HCG QUANT <1 Normal [facility] Comment on above: Performed By: #### P REGQNT #### [facility] [address] [place] [address] Dr. Prashant Kang HCG RANGE SEE BELOW Normal [facility] Comment on above: Result Comment: 5-50 0.2-1 WEEK 50-500 1-2 WEEKS 100-5,000 2-3 WEEKS 500-10,000 3-4 WEEKS 1,000-50,000 4-5 WEEKS 10,000-100,000 5-6 WEEKS 15,000-200,000 6-8 WEEKS 10,000-100,000 2-3 MONTHS Performed By: #### P REGQNT #### [facility] [address] [place] [address] Dr. Prashant Kang PREG QUANT HCGon 05-16-2022 HCG QUANT <1 Normal [facility] Comment on above: Performed By: #### P TT, PT #### [facility] [address] [place] [address] Dr. Prashant Kang HCG RANGE SEE BELOW Normal [facility] Comment on above: Result Comment: 5-50 0.2-1 WEEK 50-500 1-2 WEEKS 100-5,000 2-3 WEEKS 500-10,000 3-4 WEEKS 1,000-50,000 4-5 WEEKS 10,000-100,000 5-6 WEEKS 15,000-200,000 6-8 WEEKS 10,000-100,000 2-3 MONTHS Performed By: #### P TT, PT #### [facility] [address] [place] [address] Dr. Prashant Kang PREG QUANT HCGon 05-08-2022 HCG QUANT <1 Normal [facility] Comment on above: Performed By: #### P REGQNT #### [facility] [address] [place] [address] Dr. Prashant Kang HCG RANGE SEE BELOW Normal [facility] Comment on above: Result Comment: 5-50 0.2-1 WEEK 50-500 1-2 WEEKS 100-5,000 2-3 WEEKS 500-10,000 3-4 WEEKS 1,000-50,000 4-5 WEEKS 10,000-100,000 5-6 WEEKS 15,000-200,000 6-8 WEEKS 10,000-100,000 2-3 MONTHS Performed By: #### P REGQNT #### [facility] [address] [place] [address] Dr. Prashant Kang CALCIUMon 03-08-2022 Calcium [Mass/Vol] 8.6 mg/dL Normal 8.5-10.1 [facility] Comment on above: Performed By: #### C A #### [facility] [address] [place], [place] [id number] Dr. Prashant Kang CALCIUMon 03-07-2022 Calcium [Mass/Vol] 8.4 mg/dL Critically low 8.5-10.1 [facility] Comment on above: Performed By: #### C A #### [facility] [address] [place] [address] Dr. Prashant Kang PREG HCG QUALon 03-07-2022 , QUAL Negative Normal NEGATIVE [facility] Comment on above: Performed By: #### P REG #### [facility] [address] [place] [address] Dr. Prashant Kang Covid-19 PCR (CVDTB)on SARS-CoV-2 (COVID-19) RNA DENEEN+probe Ql (Unsp spec) Not detected Normal NOT DETECTED [facility] Comment on above: Result Comment: This test is not yet approved or cleared by the [place] FDA. When there are no FDA-approved or cleared tests available, and other criteria are met, FDA can make tests available under an emergency access mechanism called an Emergency Use Authorization (EUA). The EUA for this test is supported by the [employer] of Health and Human Service's (HHS's) declaration [...] SARS-CoV-2. Performed By: #### C VDTBH #### [facility] [address] [place] [address] Dr. Prashant Kang CALCIUMon 02-24-2022 Calcium [Mass/Vol] 8.8 mg/dL Normal 8.5-10.1 [facility] Comment on above: Performed By: #### P TT, PT #### [facility] [address] [place] [address] Dr. Prashant Kang CBC AUTO DIFFon 02-24-2022 BASO # 0.0 103/ul Normal 0.0-0.1 [facility] Comment on above: Performed By: #### P TT, PT #### [facility] [address] [place] [address] Dr. Prashant Kang Basophils/100 WBC (Bld) 0.3 % Normal 0.2-2.0 [facility] Comment on above: Performed By: #### P TT, PT #### [facility] [address] [place] [address] Dr. Prashant Kang EO # 0.1 103/ul Normal 0.0-0.7 [facility] Comment on above: Performed By: #### P TT, PT #### [facility] [address] [place] [address] Dr. Prashant Kang Eosinophils/100 WBC (Bld) 1.5 % Normal 0.9-7.0 [facility] Comment on above: Performed By: #### P TT, PT #### [facility] [address] [place] [address] Dr. Prashant Kang Erythrocyte distribution width (RBC) [Ratio] 13.8 % Normal 11.0-15.0 [facility] Comment on above: Performed By: #### P TT, PT #### [facility] [address] [place] [address] Dr. Prashant Kang Hematocrit (Bld) [Volume fraction] 45.5 % Normal 36.0-48.0 [facility] Comment on above: Performed By: #### P TT, PT #### [facility] [address] [place] [address] Dr. Prashant Kang Hemoglobin (Bld) [Mass/Vol] 14.6 g/dL Normal 12.0-16.0 [facility] Comment on above: Performed By: #### P TT, PT #### [facility] [address] [place] [address] Dr. Prashant Kang IG # 0.02 10e3/ul Normal 0.00-0.03 [facility] Comment on above: Performed By: #### P TT, PT #### [facility] [address] [address] [address] Prashant Kang IG % 0.3 % Normal 0.0-0.5 [facility] Comment on above: Performed By: #### P TT, PT #### [facility] [address] [address] [address] Prashant Kang LYMPH # 1.6 103/ul Normal 1.2-3.8 [facility] Comment on above: Performed By: #### P TT, PT #### [facility] [address] [place] [address] Dr. Prashant Kang Lymphocytes/100 WBC (Bld) 23.5 % Normal 20.5-60.0 [facility] Comment on above: Performed By: #### P TT, PT #### [facility] [address] [place] [address] Dr. Prashant Kang MANUAL DIFF REQ NO Normal [facility] Comment on above: Performed By: #### P TT, PT #### [facility] [address] [place] [address] Dr. Prashant Kang MCH (RBC) [Entitic mass] 26.5 pg Critically low 26.7-34.0 [facility] Comment on above: Performed By: #### P TT, PT #### [facility] [address] [place] [address] Dr. Prashant Kang MCHC (RBC) [Mass/Vol] 32.1 g/dL Normal 29.9-35.2 [facility] Comment on above: Performed By: #### P TT, PT #### [facility] [address] [place] [address] Dr. Prashant Kang MCV (RBC) [Entitic vol] 82.7 fL Normal 81.0-99.0 [facility] Comment on above: Performed By: #### P TT, PT #### [facility] [address] [place] [address] Dr. Prashant Kang MONO # 0.5 103/ul Normal 0.3-0.8 [facility] Comment on above: Performed By: #### P TT, PT #### [facility] [address] [address] [address] Prashant Kang Monocytes/100 WBC (Bld) 7.5 % Normal 1.7-12.0 [facility] Comment on above: Performed By: #### P TT, PT #### [facility] [address] [place] [address] Dr. Prashant Kang NEUT # 4.6 103/ul Normal 1.4-6.5 [facility] Comment on above: Performed By: #### P TT, PT #### [facility] [address] [place] [address] Dr. Prashant Kang Neutrophils/100 WBC (Bld) 66.9 % Normal 43.0-75.0 [facility] Comment on above: Performed By: #### P TT, PT #### [facility] [address] [place] [address] Dr. Prashant Kang Platelet mean volume (Bld) [Entitic vol] 9.9 fL Normal 9.5-13.5 [facility] Comment on above: Performed By: #### P TT, PT #### [facility] [address] [place] [address] Dr. Prashant Kang PLT 239 103/ul Normal 150-450 [facility] Comment on above: Performed By: #### P TT, PT #### [facility] [address] [place] [address] Dr. Prashant Kang RBC 5.50 106/ul Critically high 4.20-5.40 [facility] Comment on above: Performed By: #### P TT, PT #### [facility] [address] [place] [address] Dr. Prashant Kang WBC 6.8 103/ul Normal 4.0-11.0 [facility] Comment on above: Performed By: #### P TT, PT #### [facility] [address] [place] [address] Dr. Prashant Kang MAGNESIUMon 02-24-2022 Magnesium [Mass/Vol] 2.0 mg/dL Normal 1.8-2.4 [facility] Comment on above: Performed By: #### P TT, PT #### [facility] [address] [place] [address] Dr. Prashant Kang PHOSPHORUSon 02-24-2022 Phosphate [Mass/Vol] 3.3 mg/dL Normal 2.6-4.7 [facility] Comment on above: Performed By: #### P TT, PT #### [facility] [address] [place] [address] Dr. Prashant Kang PROTIMEon 02-24-2022 INR Coag (PPP) [Relative time] 1.01 {INR} Normal [facility] Comment on above: Performed By: #### P TT, PT #### [facility] [address] [place] [address] Dr. Prashant Kang INR GUIDELINES SEE BELOW Normal [facility] Comment on above: Result Comment: SALIMA RED INR: 2.0 - 3.0 CONDITIONS NOT LISTED BELOW 2.5 - 3.5 FOR PROSTHETIC HEART VALVE REPLACEMENT 2.5 - 3.5 RECURRENT THROMBOSIS Performed By: #### P TT, PT #### [facility] [address] [place] [address] Dr. Prashant Kang PT Coag (PPP) [Time] 10.9 s Normal 9.0-11.6 [facility] Comment on above: Performed By: #### P TT, PT #### [facility] [address] [place] [address] Dr. Prashant Kang PTTon 02-24-2022 aPTT Coag (Bld) [Time] 28.9 s Normal 22.3-36.2 [facility] Comment on above: Performed By: #### P TT, PT #### [facility] [address] [place] [address] Dr. Prashant Kang TSHon 02-24-2022 TSH 1.163 uIU/mL Normal 0.358-3.740 [facility] Comment on above: Performed By: #### P TT, PT #### [facility] [address] [place] [address] Dr. Prashant Kang US THYROID FN ASP BXon 02-09 US THYROID FN ASP BX Begin Addendum #1 COLLECTED DATE/TIME: 02/03/2022 11:36 EDT Final Diagnosis Report for [facility] [place], [place] (A/B) THYROID ISTHMUS NODULE, FINE NEEDLE [...] 2. Pathology results are pending. Normal [facility] CT NECK ST W CONon 2 [...] SHAILESH EMERY Date: 2022-01-20 13:05 Normal [facility] US THYROIDon 01-20-2022 US THYROID EXAMINATION: [...] SHAILESH EMERY Date: 2022-01-20 21:46 Normal [facility] CBC AUTO DIFFon 01-08-2022 BASO # 0.0 103/ul Normal 0.0-0.1 [facility] Comment on above: Performed By: #### P TT, PT #### [facility] [address] [place] [address] Dr. Prashant Kang Basophils/100 WBC (Bld) 0.4 % Normal 0.2-2.0 [facility] Comment on above: Performed By: #### P TT, PT #### [facility] [address] [address] [address] Prashant Kang EO # 0.2 103/ul Normal 0.0-0.7 [facility] Comment on above: Performed By: #### P TT, PT #### [facility] [address] [address] [address] Prashant Kang Eosinophils/100 WBC (Bld) 3.4 % Normal 0.9-7.0 [facility] Comment on above: Performed By: #### P TT, PT #### [facility] [address] [place] [address] Dr. Prashant Kang Erythrocyte distribution width (RBC) [Ratio] 14.6 % Normal 11.0-15.0 [facility] Comment on above: Performed By: #### P TT, PT #### [facility] [address] [place] [address] Dr. Prashant Kang Hematocrit (Bld) [Volume fraction] 42.9 % Normal 36.0-48.0 [facility] Comment on above: Performed By: #### P TT, PT #### [facility] [address] [place] [address] Dr. Prashant Kang Hemoglobin (Bld) [Mass/Vol] 13.4 g/dL Normal 12.0-16.0 [facility] Comment on above: Performed By: #### P TT, PT #### [facility] [address] [place] [address] Dr. Prashant Kang IG # 0.02 10e3/ul Normal 0.00-0.03 [facility] Comment on above: Performed By: #### P TT, PT #### [facility] [address] [place] [address] Dr. Prashant Kang IG % 0.3 % Normal 0.0-0.5 [facility] Comment on above: Performed By: #### P TT, PT #### [facility] [address] [place] [address] Dr. Prashant Kang LYMPH # 2.0 103/ul Normal 1.2-3.8 [facility] Comment on above: Performed By: #### P TT, PT #### [facility] [address] [place] [address] Dr. Prashant Kang Lymphocytes/100 WBC (Bld) 29.7 % Normal 20.5-60.0 [facility] Comment on above: Performed By: #### P TT, PT #### [facility] [address] [place] [address] Dr. Prashant Kang MANUAL DIFF REQ NO Normal [facility] Comment on above: Performed By: #### P TT, PT #### [facility] [address] [place] [address] Dr. Prashant Kang MCH (RBC) [Entitic mass] 26.3 pg Critically low 26.7-34.0 [facility] Comment on above: Performed By: #### P TT, PT #### [facility] [address] [place] [address] Dr. Prashant Kang MCHC (RBC) [Mass/Vol] 31.2 g/dL Normal 29.9-35.2 [facility] Comment on above: Performed By: #### P TT, PT #### [facility] [address] [place] [address] Dr. Prashant Kang MCV (RBC) [Entitic vol] 84.1 fL Normal 81.0-99.0 [facility] Comment on above: Performed By: #### P TT, PT #### [facility] [address] [place] [address] Dr. Prashant Kang MONO # 0.6 103/ul Normal 0.3-0.8 [facility] Comment on above: Performed By: #### P TT, PT #### [facility] [address] [place] [address] Dr. Prashant Kang Monocytes/100 WBC (Bld) 8.7 % Normal 1.7-12.0 [facility] Comment on above: Performed By: #### P TT, PT #### [facility] [address] [place] [address] Dr. Prashant Kang NEUT # 3.9 103/ul Normal 1.4-6.5 [facility] Comment on above: Performed By: #### P TT, PT #### [facility] [address] [place] [address] Dr. Prashant Kang Neutrophils/100 WBC (Bld) 57.5 % Normal 43.0-75.0 [facility] Comment on above: Performed By: #### P TT, PT #### [facility] [address] [place] [address] Dr. Prashant Kang Platelet mean volume (Bld) [Entitic vol] 9.9 fL Normal 9.5-13.5 [facility] Comment on above: Performed By: #### P TT, PT #### [facility] [address] [place] [address] Dr. Prashant Kang PLT 241 103/ul Normal 150-450 [facility] Comment on above: Performed By: #### P TT, PT #### [facility] [address] [place] [address] Dr. Prashant Kang RBC 5.10 106/ul Normal 4.20-5.40 [facility] Comment on above: Performed By: #### P TT, PT #### [facility] [address] [place] [address] Dr. Prashant Kang WBC 6.8 103/ul Normal 4.0-11.0 [facility] Comment on above: Performed By: #### P TT, PT #### [facility] [address] [place] [address] Dr. Prashant Kang GROUP A STREP CULTUREon 12-29 S. pyogenes Ag Ql (Unsp spec) Culture Observations: NEGATIVE FOR GROUP A STREPTOCOCCUS. Normal [facility] Comment on above: Performed By: #### P TT, PT #### [facility] [address] [place] [address] Dr. Prashant Kang PROF 14(COMP METB)on 022 Albumin [Mass/Vol] 3.6 g/dL Normal 3.4-5.0 [facility] Comment on above: Performed By: #### C MP #### [facility] [address] [place] [address] Dr. Prashant Kang Albumin/Globulin [Mass ratio] 0.8 {ratio} Normal [facility] Comment on above: Performed By: #### C MP #### [facility] [address] [place] [address] Dr. Prashant Kang ALP [Catalytic activity/Vol] 74 U/L Normal 46-116 [facility] Comment on above: Performed By: #### C MP #### [facility] [address] [place] [address] Dr. Prashant Kang ALT [Catalytic activity/Vol] 40 U/L Normal 14-59 [facility] Comment on above: Performed By: #### C MP #### [facility] [address] [address] [address] Prashant Kang Anion gap [Moles/Vol] 14.0 mmol/L Normal [facility] Comment on above: Performed By: #### C MP #### [facility] [address] [address] [address] Prashant Kang AST [Catalytic activity/Vol] 31 U/L Normal 15-37 [facility] Comment on above: Performed By: #### C MP #### [facility] [address] [address] [address] Prashant Kang Bilirubin [Mass/Vol] 0.4 mg/dL Normal 0.2-1.0 [facility] Comment on above: Performed By: #### C MP #### [facility] [address] [address] [address] Prashant Kang Calcium [Mass/Vol] 8.8 mg/dL Normal 8.5-10.1 [facility] Comment on above: Performed By: #### C MP #### [facility] [address] [place] [address] Dr. Prashant Kang Chloride [Moles/Vol] 105 mmol/L Normal 98-107 [facility] Comment on above: Performed By: #### C MP #### [facility] [address] [address] [address] Prashant Kang CO2 [Moles/Vol] 26.6 mmol/L Normal 21.0-32.0 [facility] Comment on above: Performed By: #### C MP #### [facility] [address] [address] [address] Prashant Kang Creatinine [Mass/Vol] 0.80 mg/dL Normal 0.55-1.02 [facility] Comment on above: Performed By: #### C MP #### [facility] [address] [address] [address] Prashant Kang EGFR-AF GHANAIAN >60 Normal >=60 [facility] Comment on above: Performed By: #### C MP #### [facility] [address] [address] [address] Prashant Kang EGFR-NON AF GHANAIAN >60 Normal >=60 [facility] Comment on above: Performed By: #### C MP #### [facility] [address] [address] [address] Prashant Kang Globulin (S) [Mass/Vol] 4.3 g/dL Normal [facility] Comment on above: Performed By: #### C MP #### [facility] [address] [address] [address] Prashant aKng Glucose [Mass/Vol] 101 mg/dL Normal 74-106 [facility] Comment on above: Performed By: #### C MP #### [facility] [address] [address] [address] Prashant Kang Potassium [Moles/Vol] 4.6 mmol/L Normal 3.5-5.1 [facility] Comment on above: Performed By: #### C MP #### [facility] [address] [address] [address] Prashant Kang Protein [Mass/Vol] 7.9 g/dL Normal 6.4-8.2 [facility] Comment on above: Performed By: #### C MP #### [facility] [address] [address] [address] Prashant Kang Sodium [Moles/Vol] 141 mmol/L Normal 136-145 [facility] Comment on above: Performed By: #### C MP #### [facility] [address] [address] [address] Prashant Kang Urea nitrogen [Mass/Vol] 11.0 mg/dL Normal 7.0-18.0 [facility] Comment on above: Performed By: #### C MP #### [facility] [address] [address] [address] Prashant Kang Urea nitrogen/Creatinine [Mass ratio] 13.8 mg/mg Normal [facility] Comment on above: Performed By: #### C MP #### [facility] [address] [place], [place] [address] Dr. Prashant Kang STREPT SCREENon 01-08-2022 STREP SCREEN A Negative Normal NEGATIVE [facility] Comment on above: Performed By: #### P TT, PT #### [facility] [address] [place], [place] [address] Dr. Prashant Kang XR NECK SOFT TISSUEon [...] MIKE SAID Date: 2022-01-08 04:43 Normal [facility] Covid-19 PCR (CVDTB)on SARS-CoV-2 (COVID-19) RNA DENEEN+probe Ql (Unsp spec) Not detected Normal NOT DETECTED [facility] Comment on above: Result Comment: This test is not yet approved or cleared by the [place] FDA. When there are no FDA-approved or cleared tests available, and other criteria are met, FDA can make tests available under an emergency access mechanism called an Emergency Use Authorization (EUA). The EUA for this test is supported by the [place] of Health and Human Service's (HHS's) declaration [...] Performed By: #### P TT, PT #### [facility] [address] [address] [address] Prashant Kang Vital Signs Date Time Vital Sign Value Performing Clinician Donta coleman 03-24-2024 13:16-0500 Body mass index (BMI) [Ratio] 40.02 kg/m2 Acosta Shania DO Work Phone: [facility] 03-24-2024 13:16-0500 Body weight 99.25 kg Acosta Shania DO Work Phone: [facility] 03-24-2024 13:16-0500 Diastolic blood pressure 70 mm[Hg] Acosta Shania DO Work Phone: [facility] 03-24-2024 13:16-0500 Systolic blood pressure 120 mm[Hg] Acosta Shania DO Work Phone: [facility] 03-10-2024 13:45-0500 Body mass index (BMI) [Ratio] 40.38 kg/m2 Acosta Shania DO Work Phone: [facility] 03-10-2024 13:45-0500 Body weight 100.15 kg Acosta Shania DO Work Phone: [facility] 03-10-2024 13:45-0500 Diastolic blood pressure 76 mm[Hg] Acosta Shania DO Work Phone: [facility] 03-10-2024 13:45-0500 Systolic blood pressure 114 mm[Hg] Acosta Shania DO Work Phone: [facility] 02-25-2024 14:08-0400 Body mass index (BMI) [Ratio] 39.87 kg/m2 Kim YAO Work Phone: [facility] 02-25-2024 14:08-0400 Body weight 98.88 kg Kim YAO Work Phone: [facility] 02-25-2024 14:08-0400 Diastolic blood pressure 70 mm[Hg] Kim YAO Work Phone: [facility] 02-25-2024 14:08-0400 Systolic blood pressure 114 mm[Hg] Kim YAO Work Phone: [facility] 02-11-2024 11:10-0400 Body mass index (BMI) [Ratio] 40.2 kg/m2 Acosta Shania DO Work Phone: [facility] 02-11-2024 11:10-0400 Body weight 99.7 kg Acosta Shania DO Work Phone: [facility] 02-11-2024 11:10-0400 Diastolic blood pressure 64 mm[Hg] Acosta Shania DO Work Phone: [facility] 02-11-2024 11:10-0400 Systolic blood pressure 112 mm[Hg] Acosta Shania DO Work Phone: [facility] 06-12-2023 13:54-0500 Body mass index (BMI) [Ratio] 40.6 kg/m2 Acosta Shania DO Work Phone: [facility] 06-12-2023 13:54-0500 Body weight 100.7 kg Acosta Shania DO Work Phone: [facility] 06-12-2023 13:54-0500 Diastolic blood pressure 74 mm[Hg] Acosta Shania DO Work Phone: [facility] 06-12-2023 13:54-0500 Systolic blood pressure 118 mm[Hg] Acosta Shania DO Work Phone: [facility] 05-04-2022 09:40-0500 Body temperature 97.2 [degF] JONNY Garcia MD Work Phone: [facility] 05-04-2022 09:40-0500 Body weight 88.81 kg JONNY Garcia MD Work Phone: [facility] [...] Date Encounter Type Care Provider Facility Start: 03-24-2024 End: 03-24-2024 [employer] flowsheet Acosta Shania DO Work Phone: [facility] Start: 03-24-2024 End: 03-24-2024 Bamboo flowsheet Acosta Shania DO Work Phone: [facility] Start: 03-24-2024 End: 03-24-2024 ambulatory ACOSTA SHANIA Not Available Start: 03-24-2024 End: 03-24-2024 Office outpatient visit 15 minutes Acosta Shania DO Work Phone: [facility] Comment on above: 35 weeks gestation o f ; Third trimester Start: 03-10-2024 End: 03-10-2024 Bamboo flowsheet Acosta Shania DO Work Phone: [facility] Start: 03-10-2024 End: 03-10-2024 Bamboo flowsheet Acosta Shania DO Work Phone: [facility] Start: 03-10-2024 End: 03-10-2024 ambulatory ACOSTA SHANIA Not Available Start: 03-10-2024 End: 03-10-2024 Office outpatient visit 15 minutes Acosta Shania DO Work Phone: [facility] Comment on above: Third trimester preg yogesh; 33 weeks gestation of ; Thyroid disease (CMS/HCC) Start: 02-26-2024 End: 02-26-2024 Patient encounter procedure [facility] Comment on above: [...] Bamboo flowsheet Acosta Shania DO Work Phone: [facility] Start: 02-11-2024 End: 02-11-2024 Bamboo flowsheet Acosta Shania DO Work Phone: [facility] Start: 02-11-2024 End: 02-11-2024 Office outpatient visit 15 minutes Acosta Shania DO Work Phone: [facility] Comment on above: Third trimester preg yogesh; Thyroid disease (CMS/HCC); 29 weeks gestation of ; History of placental abruption; Non compliance w medication regimen Start: 02-11-2024 End: 02-11-2024 ambulatory ACOSTA SHANIA Not Available Start: 02-08-2024 End: 02-08-2024 Clinisync Result Encounter Acosta Shania DO Work Phone: [facility] External Department Unsolicited Start: 02-08-2024 End: 02-08-2024 Clinisync Result Encounter Acosta Shania DO Work Phone: [facility] External Department Unsolicited Start: 01-23-2024 End: 01-24-2024 Telephone encounter Arslan Garcia MD Work Phone: Radiation Oncology Comment on above: Patient Question Start: 01-14-2024 End: 01-14-2024 ambulatory ACOSTA SHANIA Not Available Start: 01-11-2024 End: 01-11-[address] [facility] Start: 12-17-2023 End: 12-17-2023 ambulatory ACOSTA SHANIA [...] Phone: [facility] Comment on above: Missed menses; Amenorrhea Start: 06-12-2023 End: 06-12-2023 ambulatory ACOSTA SHANIA Not Available Start: 02-14-2023 Telephone encounter Arslan Garcia MD Work Phone: [facility] Comment on above: Appointment Confirma tion Start: 02-08-2023 End: 02-08-2023 ambulatory SARA MEDELLIN Facility:[facility] Start: 02-01-2023 End: 02-01-2023 ambulatory SARA MEDELLIN Facility:[facility] Start: 11-09-2022 Telephone encounter Arslan Garcia [...] for preprocedural laboratory examination DR CHARLIE EASTMAN [facility] Start: 03-07-2022 End: 03-08-[address] CHARLIE EASTMAN Facility:[facility] Start: 03-04-2022 End: 03-05-[address] CHARLIE EASTMAN Facility:[facility] Start: 03-04-2022 End: 03-05-2022 Encounter for preprocedural laboratory examination DR CHARLIE EASTMAN Facility:[facility] Start: 02-24-2022 End: 02-25-[address] CHARLIE EASTMAN Facility:[facility] Start: 02-06-2022 End: 02-06-2022 ambulatory CLARI KIMBERLY . Facility:[facility] Start: 02-03-2022 End: 02-03-[address] HCARLIE EASTMAN Facility:[facility] Start: 01-20-2022 End: 01-21-[address] SARA MEDELLIN . Facility:[facility] Start: 01-08-2022 End: 01-08-[address] GAIL STOLL Facility:[facility] Start: 01-04-2022 End: 01-04-[address] SARA MEDELLIN . Facility:[facility] Start: 12-12-2021 End: 12-12-2021 ambulatory DHRUV MCDONALD Facility:[facility] Procedures Date Procedure Procedure Detail Performing Clinician Start: 03-24-2024 Urnls dip stick/tabl et rgnt non-auto w/o micrscp Acosta Shania DO Work Phone: Start: 02-26-2024 AMB REFERRAL TO FOOD CLINIC [...] Adult BMI Screening Adult BMI Screen ing [facility] Start: 01-10-2025 Tobacco Screening [facility] Start: 05-12-2024 End: 05-12-2024 ambulatory 05/12/2024 1:40 PM EST Visit [facility] [address] [place] [address] Acosta Jauregui, DO [address] [place] [address] [facility] Start: 03-31-2024 End: 03-31-2024 Patient encounter procedure 03/31/2024 1:30 PM EST Routine [facility] [address] [place] [place] [id number] Acosta Jauregui, DO [address] [place] [address] [facility] Start: 03-24-2024 End: 03-24-2024 Patient encounter procedure 03/24/2024 1:00 PM EST Routine [facility] [address] [place] [id number] Acosta Jauregui, DO [address] [place] [address] [facility] Start: 03-10-2024 End: 03-10-2024 Patient encounter procedure 03/10/2024 1:00 PM EST Routine [facility] [address] [place] [place] [id number] Acosta Jauregui, DO [address] [place] [address] [facility] Start: 02-25-2024 End: 02-24-2025 [...] placental abruption Expected: 02/11/2024 (Approximate), Expires: 02/10/2025 [facility] Healthcare Work Phone: Comment on above: Expected: 02/11/2024 (Approximate), Expires: 02/10/2025 Start: 02-11-2024 End: 02-10-2025 US for US OB SCAN FOR GROWTH Imaging Routine Thyroid disease (CMS/HCC) 29 weeks gestation of History of placental abruption Expected: 02/11/2024 (Approximate), Expires: 02/10/2025 [facility] Comment on above: Expected: 02/11/2024 (Approximate), Expires: 02/10/2025 Start: 02-11-2024 End: 02-11-2024 Patient encounter procedure [facility] Comment on above: [facility] Start: 12-30-2023 Covid-19 Vaccine ( season) Covid-19 Vaccine () [facility] Start: 12-30-2023 Influenza vaccination C [facility] Start: 08-15-2023 End: 11-14-2023 Thyroglobulin and Thyrogobulin Ab panel - Serum or Plasma THYROGLOBULIN, SERUM WITH REFLEX TO IA OR LC-MS/MS Lab Routine Thyroid cancer (HCC) Expected: 08/15/2023, Expires: 11/14/2023 [facility] Work Phone: Comment on above: Expected: 08/15/2023 , Expires: 11/14/2023 Start: 08-15-2023 End: 11-14-2023 Thyrotropin [Units/volume] in Serum or Plasma THYROID STIMULATING HORMONE Lab Routine Thyroid cancer (HCC) Expected: 08/15/2023, Expires: 11/14/2023 [facility] Work Phone: Comment on above: Expected: 08/15/2023 , Expires: 11/14/2023 Start: 08-15-2023 End: 11-14-2023 Thyroxine (T4) [Mass/volume] in Serum or Plasma T4/THYROXINE Lab Routine Thyroid cancer (HCC) Expected: 08/15/2023, Expires: 11/14/2023 [facility] Work Phone: Comment on above: Expected: 08/15/2023 , Expires: 11/14/2023 Start: 06-26-2023 End: 06-26-2023 Professional / ancillary services management 06/26/2023 1:00 PM EST Ancillary Procedure [facility] [address] [place] [address] [place] [address] [facility] Start: 06-12-2023 End: 06-12-2024 US for US PELVIS-TRANSVAG IF INDICATED Imaging Routine Amenorrhea Expected: 06/12/2023 (Approximate), Expires: 06/12/2024 [facility] Comment on above: Expected: 06/12/2023 (Approximate), Expires: 06/12/2024 Start: 04-30-2023 Behavioral Health Screening Behavioral Health Screening [facility] Start: 04-30-2023 Depression Assessment Depression Ass essment [facility] Start: 12-29-2022 Covid-19 Vaccine ( season) Covid-19 Vaccine () [facility] Start: 12-29-2022 Influenza vaccination C [facility] Start: 07-02-2022 End: 09-01-2022 THYROGLOBULIN BY MASS SPECTROMETRY THYROGLOBULIN BY MASS SPECTROMETRY Lab Routine Thyroid cancer (HCC) Expected: 07/02/2022, Expires: 09/01/2022 [facility] Work Phone: Comment on above: Expected: 07/02/2022 , Expires: 09/01/2022 Start: 07-02-2022 End: 09-01-2022 Thyrotropin [Units/volume] in Serum or Plasma TSH BLD Lab Routine Thyroid cancer (HCC) Expected: 07/02/2022, Expires: 09/01/2022 [facility] Work Phone: Comment on above: Expected: 07/02/2022 , Expires: 09/01/2022 Start: 07-02-2022 End: 09-01-2022 Thyroxine (T4) [Mass/volume] in Serum or Plasma T4/THYROXINE BLOOD Lab Routine Thyroid cancer (HCC) Expected: 07/02/2022, Expires: 09/01/2022 [facility] Work Phone: Comment on above: Expected: 07/02/2022 , Expires: 09/01/2022 Start: 04-30-2022 DEPRESSION ASSESSMENT [facility]ION [facility] Start: 2022 HPV TESTING HPV TESTING [facility] Start: 2022 Screening for malign ant neoplasm of cervix HPV Testing [facility] Start: 12-29-2021 Influenza vaccination INFLUENZA (#1) [facility] Start: 04-30-2021 DEPRESSION ASSESSMENT DEPRESSION ASS [facility] Start: 2013 PAP TESTING PAP TESTING [facility] Start: 2013 Screening for malign ant neoplasm of cervix [facility] Start: 2011 DTaP,Tdap and Td Vaccines (1 - Tdap) DTaP,Tdap and Td Vaccines (1 - Tdap) [facility] Start: 2011 Hepatitis B Vaccine (1 of 3 - 19+ 3-dose series) Hepatitis B Vaccine (1 of 3 - 19+ 3-dose series) [facility] Start: 2011 Urine microalbumin profile [facility] Start: 2010 Adult BMI Follow Up Plan Adult BMI Follow Up Plan [facility] Start: 2010 Anxiety Screening Anxiety Screening [facility] Start: 2010 Depression Screening Depression Scre [facility] Start: 2010 HEPATITIS C SCREENING HEPATITIS C [facility] Start: 2010 Hepatitis C screening Hepatitis C [facility] Start: 2010 HIV SCREENING HIV SCREENING [facility] Start: 2010 HIV screening HIV Screening [facility] Start: 2004 Depression Screening Depression Scre ing [facility] Start: 1998 PNEUMOCOCCAL (1 - PCV) PNEUMOCOCCAL [...] Hospital Start: 1992 [facility] CBC W Auto Different ial panel - Blood CBC and differential Lab Routine Amenorrhea Ordered: 06/12/2023 [facility] Comment on above: Ordered: 06/12/2023 hCG, quantitative, hCG, quantitative, Lab Routine Amenorrhea Ordered: 06/12/2023 [facility] Comment on above: Ordered: 06/12/2023 Hemoglobin A1c measurement Hemoglobin A1c Lab Routine Amenorrhea Ordered: 06/12/2023 [facility] Comment on above: Ordered: 06/12/2023 Prolactin Prolactin Lab Ro utine Amenorrhea Ordered: 06/12/2023 [facility] Comment on above: Ordered: 06/12/2023 Thyrotropin [Units/volume] in Serum or Plasma TSH Lab Routine Amenorrhea Ordered: 06/12/2023 [facility] Work Phone: Comment on above: Ordered: 06/12/2023 [facility] Payers Date Payer Category Payer Medicaid HMO [employer] [id number] 2020 Medicaid [id number] 2020 Medicaid (Managed Care) [employer] Member Subscriber Plan / Payer (Effective 2020-Present) Name: Amanda Cortez Relation to Subscriber: Self Name: Amanda Cortez Payer ID: Not on file Group ID: Not on file Type: Not on file Address: [place] [id number] 1992 Unknown [id number] 2.16.840.1.506121.3.579.2. 593 1992 Unknown [id number] 2.16.840.1.157175.3.579.2. 593 1992 Unknown [id number] 2.16.840.1.225935.3.579.2. 593 1992 Unknown [id number] 2.16.840.1.709499.3.579.2. 593 1992 Unknown [id number] 2.16.840.1.940038.3.579.2. 593 1992 Unknown [id number] 2.16.840.1.112639.3.579.2. 593 1992 Unknown [id number] 2.16.840.1.289693.3.579.2. 593 1992 Unknown [id number] 2.16.840.1.300058.3.579.2. 593 1992 Unknown [id number] 2.16.840.1.640838.3.579.2. 593 1992 Unknown [id number] 2.16.840.1.004542.3.579.2. 593 1992 Unknown [id number] 2.16.840.1.498046.3.579.2. 593 1992 Unknown [id number] 2.16.840.1.453919.3.579.2. 593 1992 Unknown [id number] 2.16.840.1.193364.3.579.2. 593 1992 Unknown [id number] 2.16.840.1.612587.3.579.2. 593 1992 Unknown [id number] 2.16.840.1.858898.3.579.2. 593 1992 Unknown [id number] 2.16.840.1.120998.3.579.2. 1286 1992 Unknown [id number] 2.16.840.1.710823.3.579.2. 1286 1992 Unknown [id number] 2.16.840.1.941611.3.579.2. 1259 1992 Unknown [id number] 2.16.840.1.611581.3.579.2. 9 1992 Unknown [id number] 2.16.840.1.493430.3.579.2. 9 1992 Unknown [id number] 2.16.840.1.103538.3.579.2. 1258 1992 Unknown [id number] 2.16.840.1.872336.3.579.2. 1259 1992 Unknown [id number] 2.16.840.1.867226.3.579.2. 9 1992 Unknown [id number] 2.16.840.1.997221.3.579.2. 1259 1992 Unknown [id number] 2.16.840.1.725628.3.579.2. 1258 1992 Unknown [id number] 2.16.840.1.586412.3.579.2. 9 1992 Unknown [id number] 2.16.840.1.977724.3.579.2. 9 1959 Unknown [id number] Social History Date Type Detail Facility Start: 04-11-2022 End: 09-23-2022 Tobacco smoking status NHIS Smokes tobacco daily [facility] History of tobacco use Cigarette Smoker C [facility] Start: 04-11-2022 End: 09-14-2023 Cigarettes smoked current (pack per day) - Reported 1 [facility] Start: 04-11-2022 End: 09-23-2022 Tobacco use and exposure Smokeless tobacco non-user [facility] Start: 04-11-2022 End: 03-24-2024 Alcohol intake Current drinker of alcohol (finding) [facility] Start: 04-11-2022 Alcohol Comment socially [facility] Start: 1990 Sex Assigned At Not on file C [facility] Start: 05-04-2022 End: 09-14-2023 Tobacco use panel [facility] Adult Depression Screening Assessment 0 [facility] Start: 10-03-2022 Alcohol Comment caffeine intak e: 1-2 cups per day [facility] Start: 1990 Sex Assigned At Female [facility] Start: 10-04-2022 Gender identity Identifies as female gender (finding) [facility] Start: 08-06-2023 [facility] Start: 01-11-2024 Alcoholic beverage intake Ex-drinker (finding) [facility] Start: 08-26-2018 Sex Female (finding) [facility] Clinical Notes 03-07-2022 to 03-24-2024 Sylvia Rader LPN - 03/24/2024 1:00 PM Noah Rader LPN - 03/10/2024 1:00 PM Delvis Matthews - 02/26/2024 2:14 PM MAXIMILIAN Ramírez - 02/25/2024 1:50 PM MAXIMILIAN Ramírez - 06/12/2023 1:50 PM EST Note Date & Type Note Facility 03-24-2024 History of Present illness Narrative Reason for Appointment: Patient ID: Amanda Cortez is a 33 y.o. female who presents for Routine Visit Patient presents today for Return OB appointment. 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 Thyroid disease (CMS/HCC) 09/23/2022 Bilateral tinnitus 10/04/2022 Asymmetric SNHL (sensorineural hearing loss) 12/13/2022 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 29 weeks gestation of 02/11/2024 Non compliance w medication regimen 02/11/2024 History of placental abruption 02/11/2024 Resolved Ambulatory Problems Diagnosis Date Noted Acid reflux 09/23/2022 Amenorrhea 09/23/2022 Lesion of palate 09/23/2022 depression ([facility]/HCC) 09/23/2022 Vaginal delivery 09/23/2022 Past Medical History: Diagnosis Date Chronic maxillary sinusitis Diarrhea Ear problems Family planning Fatigue Fibroadenoma of breast, right Foreign body sensation in throat History of miscarriage LPRD (laryngopharyngeal reflux disease) Obesity Papilloma of palate PCOS (polycystic ovarian syndrome) Thyroid cancer (CMS/HCC) Thyroid mass (CMS/HCC) 09/23/2022 Thyroid nodule ([facility]) HISTORY PAST MEDICAL HISTORY SOCIAL HISTORY Past [...] nursing note reviewed. Exam conducted with a residential support worker present. Vitals: Estimated body mass index is 40.02 kg/m as calculated from the following: Height as of 01/03/23: 5' 2 . Weight as of this encounter: 218 lb 12.8 oz. BP: 120/70 Patient's last menstrual period was 06/11/2023. ASSESSMENT & PLAN ICD-10-CM 1. 35 weeks gestation of Z3A.35 POCT urinalysis dipstick manually resulted 2. Third trimester Z34.93 POCT urinalysis dipstick manually resulted Patient presents today for a routine obstetrics appointment. Patient is currently 35w0d with a Estimated Date of Delivery: 04/28/24. Patient to return to clinic in week and will have GBS and pelvic exam at next appointment. Patient to talk with patient prior to leaving to setup surgery date for BS. Documented by Sylvia Rader LPN on behalf of: Acosta Jauregui DO documented in this encounter [facility] 03-10-2024 History of Present illness Narrative Reason for Appointment: Patient ID: Amanda Cortez is a 33 y.o. female who presents for Routine Visit Patient presents today for Return OB appointment. MEDICATIONS Current Outpatient Medications Medication Instructions aspirin 81 mg, Oral, Daily azithromycin (Zithromax Z-Jacobo) 250 MG tablet As directed citalopram (CELEXA) 20 mg, Oral, Every morning [...] ovarian syndrome) depression (CMS/HCC) 09/23/2022 Thyroid cancer ([facility]) Thyroid mass ([facility]/HCC) 09/23/2022 Thyroid nodule ([facility]) Vaginal delivery 09/23/2022 Vaginal delivery Social History [...] nursing note reviewed. Exam conducted with a residential support worker present. Vitals: Estimated body mass index is 40.38 kg/m as calculated from the following: Height as of 01/03/23: 5' 2 . Weight as of this encounter: 220 lb 12.8 oz. BP: 114/76 Patient's last menstrual period was 06/11/2023. ASSESSMENT & PLAN ICD-10-CM 1. Third trimester Z34.93 2. 33 weeks gestation of Z3A.33 Patient presents today for a routine obstetrics appointment. Patient is currently 33w0d with a Estimated Date of Delivery: 04/28/24. Patient aware that thyroid medication will be increased by 25mcg. Patient verbalized understanding of adding pill to daily regimen of 200mcg. Patient to return to clinic in 2 weeks. Patient will continue [facility] at [facility] as well. Documented by Sylvia Rader LPN on behalf of: Acosta Jauregui DO documented in this encounter [facility] 02-26-2024 History of Present illness Narrative [facility] Patient visited the Food Clinic and received food documented in this encounter [facility] 02-25-2024 History of Present illness Narrative Reason [...] of: MAXIMILIAN Lombardo documented in this encounter [facility] 02-11-2024 History of Present illness Narrative [...] nursing note reviewed. Exam conducted with a residential support worker present. Vitals: Estimated body mass index is [...] Acosta Jauregui DO documented in this encounter [facility] 01-24-2024 Telephone encounter Note I notified Amanda of Dr. Garcia's response. She will call after she delivers in March 2024 to scheduled follow up. Irais Turpin RN [facility] 01-24-2024 Miscellaneous Notes I notified Amanda of Dr. Garcia's response. She will call after she delivers in March 2024 to scheduled follow up. Irais Turpin RN Amanda called stating she is currently and is being followed very closely by [facility] in [place] and her local [facility]. She states her high risk is d/t [...] and is being followed very closely by [facility] in [place] and her local [facility]. She states her high risk is d/t [...] Arteaga. Lawanda please send records to She haywoodheet in your box Images from the original note were not included. Spoke to pt. She would like to see endocrinology in [place]. Pt's OB did adjust synthroid recently and has been monitoring labs. TREASURE- please sign pended order. PSS- please arrange visit when order is signed. KAREN Peters Tiffany Weyer, Angela, RN Previous Messages ----- Message ----- From: Arslan Garcia MD Sent: 11/02/2023 12:08 PM EDT To: Obi Dunlap; Carlos Nunez [facility] Given what sounds like patient is [...] [facility]12[facility] Telephone encounter Note Lawanda please send records to She facesheet in your box [facility] 11-12-2023 Telephone encounter Note Images from the original note were not included. Spoke to pt. She would like to see endocrinology in [place]. Pt's OB did adjust synthroid recently and has been monitoring labs. TREASURE- please sign pended order. PSS- please arrange visit when order is signed. KAREN Peters Tiffany Weyer, Angela, RN Previous Messages ----- Message ----- From: Arslan Garcia MD Sent: 11/02/2023 12:08 PM EDT To: Obi Dunlap; [facility] Nurse [place] Given what sounds like patient is in first trimester and ongoing concerns of breast-feeding recommend she follow-up with endocrinology. [facility] 10-24-2023 Note HNO ID: [id number] Author: Arslan GARCIA MD Service: ? Author Type: Physician Type: Progress Notes Filed: 11/02/2023 12:08 Note Text: Unable to reach patient. [facility] 10-24-2023 History of Present illness Narrative [...] Pt called to request labs sent to [facility]. Faxed to central scheduling. Edna Sal [...] Acosta Jauregui DO documented in this encounter [facility] 02-14-2023 Miscellaneous Notes Images from the original note were not included. Patient is scheduled for appointments Arslan Garcia MD P Carlos [facility] [place]; Obi Genao 4 months with labs. Orders have been placed in epic. documented in this encounter [facility] 02-08-2023 Note HNO ID: [id number] Author: Arslan Garcia MD Service: ? Author [...] Time Spent: 6 minutes Arslan Garcia MD [facility] 11-09-2022 Miscellaneous Notes Images from the original note were not included. Patient is called and scheduled. Arslan Garcia MD [facility] Nurse [place]; Obi Genao 8 weeks with labs, orders [...] right neck exploration on 03/07/2022, stage I [id number]. HPI: Patient returns after further work-up and [...] Take by mouth. OTC PRODUCT Supplement by [email or web address] for breast feeding levothyroxine (SYNTHROID) 112 mcg [...] and right neck exploration on 03/07/2022, stage [id number]. Patient does have significant thyroglobulin antibody however [...] were not included. Called patient to reschedule, MANJU. MD Jessica Jenkins [facility] Nurse Pool; Tj Funez Unable to reach please reschedule documented in this encounter [facility] 04-11-2022 Nurse Note Amanda Cortez presents [...] the recovery room in good condition. [facility] Evaluation note Diagnosis Thyroid cancer (HCC)- Primary Malignant neoplasm of thyroid gland [facility] ([facility]CC)- Primary Malignant neoplasm of thyroid gland [facility] Missed menses Amenorrhea Absence of menstruation documented in this encounter [facility] Healthcare[facility]* Diagnosis Thyroid cancer (HCC)- Primary Malignant neoplasm of thyroid gland [facility] Thyroid cancer (HCC)- Primary Malignant neoplasm of thyroid gland [facility] Thyroid cancer (HCC)- Primary Malignant neoplasm of thyroid gland [facility] Diagnosis Third trimester state, incidental Thyroid disease (CMS/HCC) Unspecified disorder of thyroid 29 weeks gestation of History of placental abruption Non compliance w medication regimen [facility] [facility]* Diagnosis Third trimester state, incidental 31 weeks gestation of Thyroid disease (CMS/HCC) Unspecified disorder of thyroid documented in this encounter [facility] HealthcareEvaluation note* Diagnosis 24 weeks gestation of Food insecurity documented in this encounter [facility]* Diagnosis Third trimester state, incidental 33 weeks gestation of Thyroid disease (CMS/HCC) Unspecified disorder of thyroid documented in this encounter [facility] HealthcareEvaluation note* Diagnosis 35 weeks gestation of Third trimester state, incidental documented in this encounter [facility] HealthcareInstructionsNot on filedocumented in this [facility] Summary Purpose Family History No [...] cancer (HCC) Procedures CONSULT TO ENDOCRINOLOGY OFFICE/OUTPATIENT [facility] 60 MINUTES Arslan Garcia MD [address] [place] [address] [place] [address] Referral ID Status Reason Start Date Expiration Date Visits Requested Visits Authorized [id number] Authorized PCP Requested Referral 11/12/2023 11/11/2024 1 [...] Care Teams (unrecognized sec tion and content) [employer] Certified Internetwork Expert Relationship Specialty Start Date End Date Sara Medellin MD [address] [phone] PCP - General Family Medicine 04/11/22 [employer] Cert[employer] Internetwork Expert Relationship Specialty Start Date End Date Sara Medellin MD [address] [place] [address] PCP - General Family Medicine 04/11/22 [employer] Cert[employer] Internetwork Expert Relationship Specialty Start Date End Date Sara Medellin MD [address] [place] [address] PCP - General Family Medicine 04/11/22 [employer] Certified Internetwork Expert Relationship Specialty Start Date End Date Sara Medellin MD PCP - General Family Medicine 04/11/22 [employer] Certified Internetwork Expert Relationship Specialty Start Date End Date Sara Medellin MD PCP - General Family Medicine 04/11/22 [employer] Certified Internetwork Expert Relationship Specialty Start Date End Date Sara Medellin MD [address] [place] [facility] [address] PCP - General Family Medicine 10/03/22 [employer] Certified Internetwork Expert Relationship Specialty Start Date End Date Sara Medellin MD PCP - General Family Medicine 04/11/22 [employer] Certified Internetwork Expert Relationship Specialty Start Date End Date Sara Medellin MD PCP - General Family Medicine 04/11/22 [employer] Certified Internetwork Expert Relationship Specialty Start Date End Date Sara Medellin MD PCP - General Family Medicine 04/11/22 [employer] Cert[employer] Internetwork Expert Relationship Specialty Start Date End Date Sara Medellin MD [address] [place] [facility] [place] [address] PCP - General Family Medicine 10/03/22 [employer] Cert[employer] Internetwork Expert Relationship Specialty Start Date End Date Sara Medellin MD [address] [place] [facility] [place] [address] PCP - General Family Medicine 10/03/22 [employer] Cert[employer] Internetwork Expert Relationship Specialty Start Date End Date Sara Medellin MD [address] [place] [facility] [place] [address] PCP - General Family Medicine 10/03/22 [employer] Cert[employer] Internetwork Expert Relationship Specialty Start Date End Date Sara Medellin MD [address] [place] [facility] [place] [address] PCP - General 01/10/24 [employer] Cert[employer] Internetwork Expert Relationship Specialty Start Date End Date Sara Medellin MD [address] [facility] [place] [address] PCP - General Family Medicine 10/03/22 [employer] Cert[employer] Internetwork Expert Relationship Specialty Start Date End Date Sara Medellin MD [address] [facility] [place] [address] PCP - General Family Medicine 10/03/22 INFORMATION SOURCE (unrecogn ized section and content) DATE CREATED AUTHOR 09/02/2022 [facility] DATE CREATED AUTHOR AUTHOR'S ORGANIZ ATION 01/11/2024 [facility] DATE CREATED AUTHOR AUTHOR'S ORGANIZ ATION 01/13/2024 [facility] DATE CREATED AUTHOR AUTHOR'S ORGANIZ ATION 03/26/2024 [facility] EPIC FOR RECORDS PERTAINING TO [...] BE BASED ON THE PRIMARY CLINICAL RECORDS. [facility] [employer] [facility] provides no warranty or guarantee of the accuracy or completeness of information in this document.
--- NOTE | 2024-03-28 14:09 | US_ITS ---
[address] [address] Patient Name: LITO RAMIREZ MRN: [id number] date: 1990 Sex: F Assigned Patient Location: [facility] Current Patient Location: Accession/Order Number: [id number] Exam Date: 03/28/2024 14:10 Report Date: 03/29/2024 08:38 At the request of: MARTINE LESTER Procedure: US OB BPP w non-stress EXAMINATION: US OB BPP w non-stress HISTORY:THYROID DISEASE E07.9 COMPARISON: Ultrasound OB biophysical 03/21/2024 TECHNIQUE: Ultrasound biophysical profile was performed in the radiology department. BREATHING MOVEMENTS: 2 GROSS BODY MOVEMENTS: 2 TONE: 2 QUALITATIVE AMNIOTIC FLUID VOLUME: 2 PRESENTATION: CEPHALIC HEART RATE: 137.76 bpm AMNIOTIC FLUID VOLUME: 20.04 cm GESTATIONAL AGE: 35 weeks 4 days US/US OB BPP w non-stress IMPRESSION: Total biophysical profile score: 8 Electronically authenticated by: AMADOR GUERRERO Date: 03/29/2024 08:38
[2024-03-28 14:31] VITALS: BP 104/65; PULSE 73
== END 2024-03-28 15:08 | disposition home or self-care (01) ==
LOC: US 08:29 → FBC 14:05
PROVIDERS: PCP Family Medicine; Visit Provider Obstetrics & Gynecology
DX: O99.283 Endocrine, nutritional and metabolic diseases complicating pregnancy, third trimester (principal); Z3A.35 35 weeks gestation of pregnancy; E07.9 Disorder of thyroid, unspecified
CPT/HCPCS: 76818

== ENCOUNTER 2024-03-31 20:11 | Outpatient (REF) | payer OTHER, SELFPAY ==
--- OUTSIDE RECORDS SUMMARY | 2024-03-31 20:27 | XMS_ITS | CCD ---
Author Organization [facility] Care Team Providers Care Ppa Teacher Name Role Phone Sara Medellin MD Primary Care Provider [phone] RAIZA, DR GUERRA Consulting Unavailable HOY ., [...] Unavailable Sara Medellin MD Primary Care Provider [phone] Sara Medellin MD Primary Care Provider [phone] Sara Medellin MD Primary Care Provider [phone] SARA MEDELLIN Primary Care Unavailable Arslan GARCIA Attending Unavailable SARA MEDELLIN Primary Care Unavailable Arslan GARCIA Attending Unavailable SARA MEDELLIN Primary Care Unavailable YFN MICHELLE Attending Unavailable SHANIA, ACOSTA R Referring Unavailable SARA MEDELLIN Primary Care Unavailable SHANIA, ACOSTA R Referring Unavailable SARA MEDELLIN Primary Care Unavailable Sara Medellin MD Primary Care Provider [phone] SHANIA, ACOSTA Attending Unavailable SHANIA, ACOSTA Attending Unavailable SHANIA, ACOSTA Attending Unavailable SHANIA, ACOSTA Attending Unavailable SHANIA, ACOSTA Attending Unavailable SHANIA, ACOSTA Attending Unavailable KIM MCKEON Attending Unavailable SHANIA, ACOSTA Attending Unavailable SHANIA, ACOSTA Attending Unavailable Allergies Allergy Classification Reported Allergen(s) Allergy Type Date of Onset Reaction(s) Facility (20 sources) Cefaclor; Translations: [CEFACLOR] Drug Allergy 04-11-20 Hives, Shortness of Breath, Anaphylaxis [facility] (13 sources) Penicillins; Translations: [PENICILLINS] Drug Allergy 04-11-20 22 Hives, Shortness of Breath [facility] (2 sources) Cefaclor Drug Allergy 05-10-19 14 [facility] (2 sources) Penicillins Drug allergy (disorder) 05-10-19 14 [facility] (17 sources) Penicillin G sodium; Translations: [PENICILLIN G SODIUM] Allergy to substance 09-24-19 Anaphylaxis [facility] (16 sources) Cephalosporins (Antibiotic); Translations: [CEPHALOSPORINS] Propensity to adverse reactions to drug (disorder) 12-17-19 Anaphylaxis [facility] (16 sources) Penicillin; Translations: [PENICILLIN G] Drug Allergy [...] aspirin 81 mg delayed release oral tablet (15 sources) Platelet Aggregation Inhibitor, Nonsteroidal Anti-inflammatory Drug [...] 03/24/2024 Discontinued citalopram 20 mg oral tablet (17 sources) Serotonin Reuptake Inhibitor Start: 11-28-2023 take [...] Comment on above: TAKE ONE TABLET BY [facility] TWICE A DAY FOR 30 DAYS mometasone [...] on above: Take 1 capsule by mo [facility] once daily. 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; Translations: [OTH INTERMEDIATE CURRENT DRUG THERAPY] Onset: 08-24-2022 Episodic Other [...] Episodic Other ear and sense organ disorders (16 sources) Asymmetrical sensorineural hearing loss; Translations: [Sensorineural [...] ] Onset: 01-11-2024 Episodic Residual codes; unclassified (14 sources) Gestation period, 29 weeks; Translations: [29 weeks gestation of ] Onset: 02-11-2024 02-11-2024 Episodic Residual codes; unclassified (14 sources) History of placental abruption; Translations: [Personal history of other complications of , childbirth and the puerperium] Onset: 02-11-2024 02-11-2024 Episodic Residual codes; unclassified (14 sources) Noncompliance with medication regimen; Translations: [Non [...] 01-10-2022 Episodic Diseases of mouth; excluding dental (17 sources) Other lesions of oral mucosa; Translations: [Oropharyngeal lesion] Onset: 02-26-2022 Resolved: 09-23-2022 09-23-2022 Episodic E Codes: Fire/burn (1 source) Contact with other heat and hot substances, initial encounter; Translations: [CONTACT OTH HEAT HOT SUBSTANCE INIT] Onset: 12-13-2021 Episodic Esophageal disorders (17 sources) Gastro-esophageal reflux disease without esophagitis; Translations: [Gastroesophageal reflux disease] Onset: 03-16-2022 Resolved: 09-23-2022 09-23-2022 Chronic Menstrual disorders (20 sources) Amenorrhea, unspecified; Translations: [Missed period] Onset: 08-17-2022 Resolved: 09-23-2022 Chronic Miscellaneous mental health disorders (16 sources) depression; Translations: [ depression] Onset: 09-23-2022 [...] Episodic Other ear and sense organ disorders (16 sources) Bilateral tinnitus; Translations: [Tinnitus, bilateral] Onset: 10-04-2022 10-04-2022 Episodic Other and delivery including normal (20 sources) [...] UA Positive Negative - 4(70) +++ mg/dL [facility] Comment on above: moderate Blood, UA Negative Negative - 50 Maury/mcL [facility] Clarity, UA Clear [facility] Color, UA Amanda [facility] Glucose, UA Positive Negative - 1999(110) ++++ mg/dL [facility] Comment on above: 100 Interpretation and review of laboratory results Abnormal [facility] Ketones, UA Positive Negative - 160(16) ++++ mg/dL [facility] Comment on above: 15 Leukocytes, UA Negative Negative - 500+++ Fan/mcL [facility] Nitrite, UA Negative Negative - Positive [facility] pH, UA 6.5 5 - 9 [facility] Protein, UA Positive Negative - 1999(20) ++++ mg/dL [facility] Comment on above: 100 Spec Grav, UA 1.025 1 - 1.03 [facility] Urobilinogen, UA 2.0 0.2 - 12 mg/dL [facility] Referral to Food C linicon 02-26-2024 [facility] Urinalysis macro (dipstick) panel (U)on 02-11-2024 Bilirubin, UA Negative Negative - 4(70) +++ mg/dL [facility] Blood, UA Negative Negative - 50 Maury/mcL [facility] Clarity, UA Clear [facility] [...] Hospital pH, UA 7 5 - 9 [facility] Protein, UA Positive Negative - 2000(20) ++++ mg/dL [facility] Spec Grav, UA 1.02 1 - 1.03 [facility] care Urobilinogen, UA 1.0 0.2 - 12 mg/dL [facility] ALL THYROID STIM HORMONEon 1 Interpretation and review of laboratory results Abnormal [facility] TSH Qn 28.537 m[IU]/L High [facility] Healt hcare [facility] Cytology Cervical or vaginal smear or scraping studyon 11-13-2023 [facility] Health[facility] CNPNon 11-12-2023 CNPN Telephone (RADTSA) ASHLEYAMANDA Rojelio ([id number]) 1990 F Date Time Provider Department 11/12/23 Arslan GARCIA During your visit today, we recorded the following information about you: Danna Pitts RN 11/12/2023 11:25 AM Signed Spoke to pt. She would like to see endocrinology in [place]. Pt's OB did adjust synthroid recently and has been monitoring labs. TREASURE- please sign pended order. PSS- please arrange visit when order is signed. KAREN Peters, Danna Mcdowell RN Previous Messages ----- Message ----- From: Arslan Garcia MD Sent: 11/02/2023 12:08 PM EDT To: Obi Kern Sec; Radgermaine Nunez [facility] Nurse Pool Given what sounds like [...] a call today to get scheduled. Meryl Patrick Schmid Nguyen Pss Meryl 11/28/2023 1:[address] Arteaga office. His office called patient on 11/21 and left message for her to call their office back to get scheduled. As of now they are waiting to hear back from patient. Meryl Nguyen Sharmaine Nguyen Pss Meryl 12/05/2023 9:12 AM Signed Called left [...] to leave message at this time. Meryl Roth Pss Allergies As of Date: 11/12/2023 Noted [...] [C73] Order(s):CONSULT TO ENDOCRINOLOGY [9007] Order #: [id number]: [id number] FUTURE Prescriptions as of 01/09/2024 - [...] Status:Closed by DANNA PITTS [facility] 11/13/[address] [facility] AMANDA CORTEZ ([id number]) 1990 F Date Time Provider Department 07/19/23 EDNA SAL During your visit today, we recorded the following information about you: Edna Sal RN 07/19/2023 10:42 AM Signed Pt called to request labs sent to [facility]. Faxed to central scheduling. Edna Sal [...] Encounter Status:Closed by EDNA SAL on 07/19/23 [facility] Emelina 06-25-[address] [facility] Telephone (NU) AMANDA CORTEZ ([id number]) 1990 F Date Time Provider Department 06/25/23 [...] Signed Patients lab orders were sent to [facility] and I scheduled her a phone [...] (HCC) [C73] Order(s):T4/THYROXIN E [SQT4] Order #: [id number] FUTURE THYROID STIMULATING HORMONE [SQTSH] Order #: [id number] FUTURE THYROGLOBULIN, SERUM WITH REFLEX TO IA OR LC-MS/MS [SQTHYRORF] Order #: [id number] FUTURE Prescriptions as of 08/23/2023 - levothyroxine [...] Encounter Status:Closed by Arslan GARCIA on 08/15/23 [facility] 02-14-2023 CNPN Telephone (NCCAP) AMANDA CORTEZ ([id number]) 1990 F Date Time Provider Department 02/14/[address] [facility] During your visit today, we recorded the following information about you: Obi Genao 02/14/2023 9:54 AM Signed Patient is scheduled for appointments Arslan Garcia MD P Radt [facility]; Obi Genao 4 months with labs. [facility]. Allergies As of Date: 02/14/2023 Noted Allergy Reaction CECLOR (CEFACLOR) 04/11/2022 4 - Hives 12 - Shortness of Breath PENICILLINS 04/11/2022 4 - Hives 12 - Shortness of Breath Date Reviewed: 05/04/2022 Reviewed by: Jerman July - Fully Assessed Reason for Visit: Appointment Confirmation [[id number]] Prescriptions as of 02/14/2023 - levothyroxine (SYNTHROID) [...] by mouth. - OTC PRODUCT Supplement by [employer] Momma's for breast feeding Problem List As Of Date: 02/14/2023 (None) Encounter Status:Closed by OBI GENAO on 02/14/23 Normal [facility] CBC W Auto Differential pane l (Bld)on 02-01-2023 Basophils (Bld) [#/Vol] 0.04 10*3/uL Normal <0.11 [facility] Comment on above: Order Comment: Speci men Type: BLOOD SPECIMEN Ordering Facility: [facility] Address: [address] [place] [address] Performed By: #### 5 7021-8 #### [facility] CLIA [id number] [address] [place] [address] 19447 Basophils/100 WBC (Bld) 0.5 % Normal [facility] Comment on above: Order Comment: Speci men Type: BLOOD SPECIMEN Ordering Facility: [facility] Address: [address] [place] [address] Performed By: #### 5 7021-8 #### [facility] CLIA [id number] [address] [place] [address] 01006 Differential cell count method Nom (Bld) Auto Normal [facility] Comment on above: Order Comment: Speci men Type: BLOOD SPECIMEN Ordering Facility: [facility] Address: [address] [place] [address] Performed By: #### 5 7021-8 #### [facility] CLIA [id number] [address] [place] [address] 18328 Eosinophils (Bld) [#/Vol] 0.19 10*3/uL Normal <0.46 [facility] Comment on above: Order Comment: Speci men Type: BLOOD SPECIMEN Ordering Facility: [facility] Address: [address] [place] [address] Performed By: #### 5 7021-8 #### [facility] CLIA [id number] [address] [place] [address] 06318 Eosinophils/100 WBC (Bld) 2.5 % Normal [facility] Comment on above: Order Comment: Speci men Type: BLOOD SPECIMEN Ordering Facility: [facility] Address: [address] [place] [address] Performed By: #### 5 7021-8 #### [facility] CLIA [id number] [address] [place] [address] 79204 Erythrocyte distribution width (RBC) [Ratio] 13.3 % Normal 11.5-15.0 [facility] Comment on above: Order Comment: Speci men Type: BLOOD SPECIMEN Ordering Facility: [facility] Address: [address] [place] [address] Performed By: #### 5 7021-8 #### [facility] CLIA [id number] [address] [place] [address] 78304 Hematocrit (Bld) [Volume fraction] 47.7 % High 36.0-46.0 [facility] Comment on above: Order Comment: Speci men Type: BLOOD SPECIMEN Ordering Facility: [facility] Address: [address] [place] [address] Performed By: #### 5 7021-8 #### [facility] CLIA [id number] [address] [place] [address] 18331 Hemoglobin (Bld) [Mass/Vol] 15.6 g/dL High 11.5-15.5 [facility] Comment on above: Order Comment: Speci men Type: BLOOD SPECIMEN Ordering Facility: [facility] Address: [address] [place] [address] Performed By: #### 5 7021-8 #### [facility] CLIA [id number] [address] [place] [address] Immature granulocytes (Bld) [#/Vol] 0.03 10*3/uL Normal <0.10 [facility] Comment on above: Order Comment: Speci men Type: BLOOD SPECIMEN Ordering Facility: [facility] Address: [address] [place] [address] Performed By: #### 5 7021-8 #### [facility] CLIA [id number] [address] [place] [address] 30900 Immature granulocytes/100 WBC (Bld) 0.4 % Normal [facility] Comment on above: Order Comment: Speci men Type: BLOOD SPECIMEN Ordering Facility: [facility] Address: [address] [place] [address] Performed By: #### 5 7021-8 #### [facility] CLIA [id number] [address] [place] [address] 56632 Lymphocytes (Bld) [#/Vol] 2.30 10*3/uL Normal 1.00-4.00 [facility] Comment on above: Order Comment: Speci men Type: BLOOD SPECIMEN Ordering Facility: [facility] Address: [address] [place] [address] Performed By: #### 5 7021-8 #### [facility] CLIA [id number] [address] [place] [address] 95717 Lymphocytes/100 WBC (Bld) 29.7 % Normal [facility] Comment on above: Order Comment: Speci men Type: BLOOD SPECIMEN Ordering Facility: [facility] Address: [address] [place] [address] Performed By: #### 5 7021-8 #### [facility] CLIA [id number] [address] [place] [address] 73433 MCH (RBC) [Entitic mass] 28.8 pg Normal 26.0-34.0 [facility] Comment on above: Order Comment: Speci men Type: BLOOD SPECIMEN Ordering Facility: [facility] Address: [address] [place] [address] Performed By: #### 5 7021-8 #### [facility] CLIA [id number] [address] [place] [address] 29154 MCHC (RBC) [Mass/Vol] 32.7 g/dL Normal 30.5-36.0 [facility] Comment on above: Order Comment: Speci men Type: BLOOD SPECIMEN Ordering Facility: [facility] Address: [address] [place] [address] Performed By: #### 5 7021-8 #### [facility] CLIA [id number] [address] [place] [address] 02723 MCV (RBC) [Entitic vol] 88.2 fL Normal 80.0-100.0 [facility] Comment on above: Order Comment: Speci men Type: BLOOD SPECIMEN Ordering Facility: [facility] Address: [address] [place] [address] Performed By: #### 5 7021-8 #### [facility] CLIA [id number] [address] [place] [address] 55681 Monocytes (Bld) [#/Vol] 0.49 10*3/uL Normal <0.87 [facility] Comment on above: Order Comment: Speci men Type: BLOOD SPECIMEN Ordering Facility: [facility] Address: [address] [place] [address] Performed By: #### 5 7021-8 #### [facility] CLIA [id number] [address] [place] [address] 73778 Monocytes/100 WBC (Bld) 6.3 % Normal [facility] Comment on above: Order Comment: Speci men Type: BLOOD SPECIMEN Ordering Facility: [facility] Address: [address] [place] [address] Performed By: #### 5 7021-8 #### [facility] CLIA [id number] [address] [place] [address] 80539 Neutrophils (Bld) [#/Vol] 4.70 10*3/uL Normal 1.45-7.50 [facility] Comment on above: Order Comment: Speci men Type: BLOOD SPECIMEN Ordering Facility: [facility] Address: [address] [place] [address] Performed By: #### 5 7021-8 #### [facility] CLIA [id number] [address] [place] [address] 37154 Neutrophils/100 WBC (Bld) 60.6 % Normal [facility] Comment on above: Order Comment: Speci men Type: BLOOD SPECIMEN Ordering Facility: [facility] Address: [address] [place] [address] Performed By: #### 5 7021-8 #### [facility] CLIA [id number] [address] [place] [address] 60920 Nucleated RBC (Bld) [#/Vol] 10*3/uL Normal <0.01 [facility] Comment on above: Order Comment: Speci men Type: BLOOD SPECIMEN Ordering Facility: [facility] Address: [address] [place] [address] Performed By: #### 5 7021-8 #### [facility] CLIA [id number] [address] [place] [address] 26694 Nucleated RBC/100 WBC (Bld) [Ratio] 0.0 /100 WBC Normal [facility] Comment on above: Order Comment: Speci men Type: BLOOD SPECIMEN Ordering Facility: [facility] Address: [address] [place] [address] Performed By: #### 5 7021-8 #### [facility] CLIA [id number] [address] [place] [address] 70922 Platelet mean volume (Bld) [Entitic vol] 9.6 fL Normal 9.0-12.7 [facility] Comment on above: Order Comment: Speci men Type: BLOOD SPECIMEN Ordering Facility: [facility] Address: [address] [place] [address] Performed By: #### 5 7021-8 #### [facility] CLIA [id number] [address] [place] [address] 54826 Platelets (Bld) [#/Vol] 248 10*3/uL Normal 150-400 [facility] Comment on above: Order Comment: Speci men Type: BLOOD SPECIMEN Ordering Facility: [facility] Address: [address] [place] [id number] Performed By: #### 5 7021-8 #### [facility] CLIA [id number] [address] [place] [address] 28921 RBC (Bld) [#/Vol] 5.41 10*6/uL High 3.90-5.20 [facility] Comment on above: Order Comment: Speci men Type: BLOOD SPECIMEN Ordering Facility: [facility] Address: [address] [place] [address] Performed By: #### 5 7021-8 #### [facility] CLIA [id number] [address] [place] [address] 24274 WBC (Bld) [#/Vol] 7.75 10*3/uL Normal 3.70-11.00 [facility] Comment on above: Order Comment: Speci men Type: BLOOD SPECIMEN Ordering Facility: [facility] Address: [address] [place] [address] Performed By: #### 5 7021-8 #### [facility] CLIA [id number] [address] [place] [address] 09205 T3 SerPl-mCncon 02-01-2023 T3 [Mass/Vol] 123 ng/dL Normal 79-165 [facility] Comment on above: Order Comment: Speci men Type: BLOOD SPECIMEN Ordering Facility: [facility] Address: [address] [place] [id number] Performed By: #### 3 053-6, 3016-3, 3026-2 #### [facility] CLIA [id number] [address] [facility] [id number] [id number] [place] T4 SerPl-mCncon 02-01-2023 T4 [Mass/Vol] 11.9 ug/dL High 5.5-10.2 [facility] Comment on above: Order Comment: Speci men Type: BLOOD SPECIMEN Ordering Facility: [facility] Address: [address] [place] [address] Performed By: #### 3 053-6, 3016-3, 3026-2 #### [facility] CLIA [id number] [address] [facility] [address] [id number] [address] [place] THYROGLOBULIN BY MASS SPECTR OMETRYon 02-01-2023 THYROGLOBULIN, LC-MS/MS <0.5 Low 1.3-31.8 [facility] Comment on above: Order Comment: Chel iverson Type: BLOOD SPECIMEN Ordering Facility: [facility] Address: [address] [place] [address] Result Comment: Results obtained with different test [...] developed and its performance characteristics determined by [facility]. It has not been cleared or approved by the [place] Food and Drug Administration. This test was performed in a CLIA certified laboratory and is intended for clinical purposes. Performed By: [facility] [address] [place] [address] Strategic Marketing Specialist: Prem Willis MD, PhD CLIA Number: [id number] Performed By: #### T [facility] #### [facility] CLIA [id number] [address] [place] [address] 33846 TSH SerPl-aCncon 02-01-2023 TSH Qn 0.960 m[IU]/L Normal 0.270-4.200 [facility] Comment on above: Order Comment: Chel iverson Type: BLOOD SPECIMEN Ordering Facility: [facility] Address: [address] [place] [address] Result Comment: If t he patient is , TSH reference range varies by gestational period: First Trimester (weeks 9-12): 0.180-2.990 mIU/L Second Trimester: 0.110-3.980 mIU/L Third Trimester: 0.480-4.710 mIU/L Suman Graf et al. A Practical Approach for the Verifications and Determination of Site- and Trimester-Specific Reference Intervals for Thyroid Function tests in . Thyroid, 2019:29:3:412-420. Rajesh Holman, et al. 2017 Guidelines of the [place] Thyroid Association for the Diagnosis and Management of Thyroid Disease during and the . Thyroid, 2017:27:3:315-389. Performed By: #### 3 053-6, 3016-3, 3026-2 #### [facility] CLIA [id number] [address] [place] [address] [place] [facility] PREG QUANT HCGon 08-17-2022 HCG QUANT 1 mIU/mL Normal [facility] Comment on above: Performed By: #### P REGQNT #### [facility] [address] [place] [address] Dr. Prashant Kang HCG RANGE SEE BELOW Normal [facility] Comment on above: Result Comment: 5-50 0.2-1 WEEK 50-500 1-2 WEEKS 100-5,000 2-3 WEEKS 500-10,000 3-4 WEEKS 1,000-50,000 4-5 WEEKS 10,000-100,000 5-6 WEEKS 15,000-200,000 6-8 WEEKS 10,000-100,000 2-3 MONTHS Performed By: #### P REGQNT #### [facility] [address] [place] [address] Dr. Prashant Kang PREG QUANT HCGon 07-04-2022 HCG QUANT <1 Normal [facility] Comment on above: Performed By: #### P REGQNT #### [facility] [address] [place] [address] Dr. Prashant Kang HCG RANGE SEE BELOW Normal [facility] Comment on above: Result Comment: 5-50 0.2-1 WEEK 50-500 1-2 WEEKS 100-5,000 2-3 WEEKS 500-10,000 3-4 WEEKS 1,000-50,000 4-5 WEEKS 10,000-100,000 5-6 WEEKS 15,000-200,000 6-8 WEEKS 10,000-100,000 2-3 MONTHS Performed By: #### P REGQNT #### [facility] [address] [place] [address] Dr. Prashant Kang PREG QUANT HCGon 05-16-2022 HCG QUANT <1 Normal [facility] Comment on above: Performed By: #### P TT, PT #### [facility] [address] [place] [address] Dr. Prashant Kang HCG RANGE SEE BELOW Normal [facility] Comment on above: Result Comment: 5-50 0.2-1 WEEK 50-500 1-2 WEEKS 100-5,000 2-3 WEEKS 500-10,000 3-4 WEEKS 1,000-50,000 4-5 WEEKS 10,000-100,000 5-6 WEEKS 15,000-200,000 6-8 WEEKS 10,000-100,000 2-3 MONTHS Performed By: #### P TT, PT #### [facility] [address] [place] [address] Dr. Prashant Kang PREG QUANT HCGon 05-08-2022 HCG QUANT <1 Normal [facility] Comment on above: Performed By: #### P REGQNT #### [facility] [address] [place] [address] Dr. Prashant Kang HCG RANGE SEE BELOW [facility] Comment on above: Result Comment: 5-50 0.2-1 WEEK 50-500 1-2 WEEKS 100-5,000 2-3 WEEKS 500-10,000 3-4 WEEKS 1,000-50,000 4-5 WEEKS 10,000-100,000 5-6 WEEKS 15,000-200,000 6-8 WEEKS 10,000-100,000 2-3 MONTHS Performed By: #### P REGQNT #### [facility] [address] [place] [address] Dr. Prashant Kang CALCIUMon 03-08-2022 Calcium [Mass/Vol] 8.6 mg/dL Normal 8.5-10.1 [facility] [facility] [place] Comment on above: Performed By: #### C A #### [facility] [address] [place] [address] Dr. Prashant Kang CALCIUMon 03-07-2022 Calcium [Mass/Vol] 8.4 mg/dL Critically low 8.5-10.1 [facility] Comment on above: Performed By: #### C A #### [facility] [address] [address] [address] Prashant Kang PREG HCG QUALon 03-07-2022 , QUAL Negative Normal NEGATIVE [facility] Comment on above: Performed By: #### P REG #### [facility] [address] [address] [address] Prashant Kang Covid-19 PCR ([facility])on SARS-CoV-2 (COVID-19) RNA DENEEN+probe Ql (Unsp spec) Not detected Normal NOT DETECTED [facility] Comment on above: Result Comment: This test is not yet approved or cleared by the [place] FDA. When there are no FDA-approved or cleared tests available, and other criteria are met, FDA can make tests available under an emergency access mechanism called an Emergency Use Authorization (EUA). The EUA for this test is supported by the Remote Sensing Engineer of Health and Human Service's (HHS's) [...] SARS-CoV-2. Performed By: #### C VDTBH #### [facility] [address] [address] [address] Prashant Kang CALCIUMon 02-24-2022 Calcium [Mass/Vol] 8.8 mg/dL Normal 8.5-10.1 [facility] [place] Comment on above: Performed By: #### P TT, PT #### [facility] [address] [address] [address] Prashant Kang CBC AUTO DIFFon 02-24-2022 BASO # 0.0 103/ul Normal 0.0-0.1 [facility] Comment on above: Performed By: #### P TT, PT #### [facility] [address] [address] [address] Prashant Kang Basophils/100 WBC (Bld) 0.3 % Normal 0.2-2.0 [facility] Comment on above: Performed By: #### P TT, PT #### [facility] [address] [address] [address] Prashant Kang EO # 0.1 103/ul Normal 0.0-0.7 [facility] Comment on above: Performed By: #### P TT, PT #### [facility] [address] [place] [address] Dr. Prashant Kang Eosinophils/100 WBC (Bld) 1.5 % Normal 0.9-7.0 [facility] Comment on above: Performed By: #### P TT, PT #### [facility] [address] [place] [address] Dr. Prashant Kang Erythrocyte distribution width (RBC) [Ratio] 13.8 % Normal 11.0-15.0 [facility] Comment on above: Performed By: #### P TT, PT #### [facility] [address] [place] [address] Dr. Prashant Kang Hematocrit (Bld) [Volume fraction] 45.5 % Normal 36.0-48.0 [facility] Comment on above: Performed By: #### P TT, PT #### [facility] [address] [place] [address] Dr. Prashant Kang Hemoglobin (Bld) [Mass/Vol] 14.6 g/dL Normal 12.0-16.0 [facility] Comment on above: Performed By: #### P TT, PT #### [facility] [address] [place] [address] Dr. Prashant Kang IG # 0.02 10e3/ul Normal 0.00-0.03 [facility] Comment on above: Performed By: #### P TT, PT #### [facility] [address] [place] [address] Dr. Prashant Kang IG % 0.3 % Normal 0.0-0.5 [facility] Comment on above: Performed By: #### P TT, PT #### [facility] [address] [place] [address] Dr. Prashant Kang LYMPH # 1.6 103/ul Normal 1.2-3.8 [facility] Comment on above: Performed By: #### P TT, PT #### [facility] [address] [place] [address] Dr. Prashant Kang Lymphocytes/100 WBC (Bld) 23.5 % Normal 20.5-60.0 [facility] Comment on above: Performed By: #### P TT, PT #### [facility] [address] [place] [address] Dr. Prashant Kang MANUAL DIFF REQ NO Normal [facility] Comment on above: Performed By: #### P TT, PT #### [facility] [address] [place] [address] Dr. Prashant Kang MCH (RBC) [Entitic mass] 26.5 pg Critically low 26.7-34.0 [facility] Comment on above: Performed By: #### P TT, PT #### [facility] [address] [place] [address] Dr. Prashant Kang MCHC (RBC) [Mass/Vol] 32.1 g/dL Normal 29.9-35.2 [facility] Comment on above: Performed By: #### P TT, PT #### [facility] [address] [place] [address] Dr. Prashant Kang MCV (RBC) [Entitic vol] 82.7 fL Normal 81.0-99.0 [facility] Comment on above: Performed By: #### P TT, PT #### [facility] [address] [place] [address] Dr. Prashant Kang MONO # 0.5 103/ul Normal 0.3-0.8 [facility] Comment on above: Performed By: #### P TT, PT #### [facility] [address] [address] [address] Prashant Kang Monocytes/100 WBC (Bld) 7.5 % Normal 1.7-12.0 [facility] Comment on above: Performed By: #### P TT, PT #### [facility] [address] [place] [address] Dr. Prashant Kang NEUT # 4.6 103/ul Normal 1.4-6.5 [facility] Comment on above: Performed By: #### P TT, PT #### [facility] [address] [place] [address] Dr. Prashant Kang Neutrophils/100 WBC (Bld) 66.9 % Normal 43.0-75.0 [facility] Comment on above: Performed By: #### P TT, PT #### [facility] [address] [place] [address] Dr. Prashant Kang Platelet mean volume (Bld) [Entitic vol] 9.9 fL Normal 9.5-13.5 [facility] Comment on above: Performed By: #### P TT, PT #### [facility] [address] [place] [address] Dr. Prashant Kang PLT 239 103/ul Normal 150-450 [facility] Comment on above: Performed By: #### P TT, PT #### [facility] [address] [place] [address] Dr. Prashant Kang RBC 5.50 106/ul Critically high 4.20-5.40 [facility] Comment on above: Performed By: #### P TT, PT #### [facility] [address] [place] [address] Dr. Prashant Kang WBC 6.8 103/ul Normal 4.0-11.0 [facility] Comment on above: Performed By: #### P TT, PT #### [facility] [address] [place] [address] Dr. Prashant Kang MAGNESIUMon 02-24-2022 Magnesium [Mass/Vol] 2.0 mg/dL Normal 1.8-2.4 [facility] Comment on above: Performed By: #### P TT, PT #### [facility] [address] [place] [address] Dr. Prashant Kang PHOSPHORUSon 02-24-2022 Phosphate [Mass/Vol] 3.3 mg/dL Normal 2.6-4.7 [facility] Comment on above: Performed By: #### P TT, PT #### [facility] [address] [place] [address] Dr. rPashant Kang PROTIMEon 02-24-2022 INR Coag (PPP) [Relative time] 1.01 {INR} Normal [facility] Comment on above: Performed By: #### P TT, PT #### [facility] [address] [place] [address] Dr. Prashant Kang INR GUIDELINES SEE BELOW Normal [facility] Comment on above: Result Comment: SALIMA RED INR: 2.0 - 3.0 CONDITIONS NOT LISTED BELOW 2.5 - 3.5 FOR PROSTHETIC HEART VALVE REPLACEMENT 2.5 - 3.5 RECURRENT THROMBOSIS Performed By: #### P TT, PT #### [facility] [address] [place] [address] Dr. Prashant Kang PT Coag (PPP) [Time] 10.9 s Normal 9.0-11.6 [facility] Comment on above: Performed By: #### P TT, PT #### [facility] [address] [place] [address] Dr. Prashant Kang PTTon 02-24-2022 aPTT Coag (Bld) [Time] 28.9 s Normal 22.3-36.2 [facility] Comment on above: Performed By: #### P TT, PT #### [facility] [address] [place] [address] Dr. Prashant Kang TSHon 02-24-2022 TSH 1.163 uIU/mL Normal 0.358-3.740 [facility] Comment on above: Performed By: #### P TT, PT #### [facility] [address] [place] [address] Dr. Prashant Kang US THYROID FN ASP BXon 02-09 US THYROID FN ASP BX Begin Addendum #1 COLLECTED DATE/TIME: 02/03/2022 11:36 EDT Final Diagnosis Report for [facility] [place] [place], [place] (A/B) THYROID ISTHMUS NODULE, FINE NEEDLE [...] 2. Pathology results are pending. Normal [facility] CT NECK ST W CONon 2 CT [...] SHAILESH EMERY Date: 2022-01-20 13:05 Normal [facility] US THYROIDon 01-20-2022 US THYROID EXAMINATION: US [...] isthmus nodule. Consider fine-needle aspiration TI-RADS: The [employer] TI-RADS committee's white paper recommendations for thyroid lesions classified as TR4 (moderately suspicious) are listed below: > 1.0 cm. Follow-up ultrasound in 1, 2, 3, and 5 years. > 1.5 cm. FNA. J. Am More Radiol 2017;[id number]. Electronically authenticated by: SHAILESH EMERY Date: 2022-01-20 21:46 Normal [facility] CBC AUTO DIFFon 01-08-2022 BASO # 0.0 103/ul Normal 0.0-0.1 [facility] Comment on above: Performed By: #### P TT, PT #### [facility] [address] [place] [address] Dr. Prashant Kang Basophils/100 WBC (Bld) 0.4 % Normal 0.2-2.0 [facility] Comment on above: Performed By: #### P TT, PT #### [facility] [address] [address] [address] Prashant Kang EO # 0.2 103/ul Normal 0.0-0.7 [facility] Comment on above: Performed By: #### P TT, PT #### [facility] [address] [place] [address] Dr. Prashant Kang Eosinophils/100 WBC (Bld) 3.4 % Normal 0.9-7.0 [facility] Comment on above: Performed By: #### P TT, PT #### [facility] [address] [place] [address] Dr. Prashant Kang Erythrocyte distribution width (RBC) [Ratio] 14.6 % Normal 11.0-15.0 [facility] Comment on above: Performed By: #### P TT, PT #### [facility] [address] [place] [address] Dr. Prashant Kang Hematocrit (Bld) [Volume fraction] 42.9 % Normal 36.0-48.0 [facility] Comment on above: Performed By: #### P TT, PT #### [facility] [address] [place] [address] Dr. Prashant Kang Hemoglobin (Bld) [Mass/Vol] 13.4 g/dL Normal 12.0-16.0 [facility] Comment on above: Performed By: #### P TT, PT #### [facility] [address] [place] [address] Dr. Prashant Kang IG # 0.02 10e3/ul Normal 0.00-0.03 [facility] Comment on above: Performed By: #### P TT, PT #### [facility] [address] [place] [address] Dr. Prashant Kang IG % 0.3 % Normal 0.0-0.5 [facility] Comment on above: Performed By: #### P TT, PT #### [facility] [address] [place] [address] Dr. Prashant Kang LYMPH # 2.0 103/ul Normal 1.2-3.8 [facility] Comment on above: Performed By: #### P TT, PT #### [facility] [address] [place] [address] Dr. Prashant Kang Lymphocytes/100 WBC (Bld) 29.7 % Normal 20.5-60.0 [facility] Comment on above: Performed By: #### P TT, PT #### [facility] [address] [place] [address] Dr. Prashant Kang MANUAL DIFF REQ NO Normal [facility] Comment on above: Performed By: #### P TT, PT #### [facility] [address] [place] [address] Dr. Prashant Kang MCH (RBC) [Entitic mass] 26.3 pg Critically low 26.7-34.0 [facility] Comment on above: Performed By: #### P TT, PT #### [facility] [address] [place] [address] Dr. Prashant Kang MCHC (RBC) [Mass/Vol] 31.2 g/dL Normal 29.9-35.2 [facility] Comment on above: Performed By: #### P TT, PT #### [facility] [address] [place] [address] Dr. Prashant Kang MCV (RBC) [Entitic vol] 84.1 fL Normal 81.0-99.0 [facility] Comment on above: Performed By: #### P TT, PT #### [facility] [address] [place] [address] Dr. Prashant Kang MONO # 0.6 103/ul Normal 0.3-0.8 [facility] Comment on above: Performed By: #### P TT, PT #### [facility] [address] [place] [address] Dr. Prashant Kang Monocytes/100 WBC (Bld) 8.7 % Normal 1.7-12.0 [facility] Comment on above: Performed By: #### P TT, PT #### [facility] [address] [place] [address] Dr. Prashant Kang NEUT # 3.9 103/ul Normal 1.4-6.5 [facility] Comment on above: Performed By: #### P TT, PT #### [facility] [address] [place] [address] Dr. Prashant Kang Neutrophils/100 WBC (Bld) 57.5 % Normal 43.0-75.0 [facility] Comment on above: Performed By: #### P TT, PT #### [facility] [address] [place] [address] Dr. Prashant Kang Platelet mean volume (Bld) [Entitic vol] 9.9 fL Normal 9.5-13.5 [facility] Comment on above: Performed By: #### P TT, PT #### [facility] [address] [place] [address] Dr. Prashant Kang PLT 241 103/ul Normal 150-450 [facility] Comment on above: Performed By: #### P TT, PT #### [facility] [address] [place] [address] Dr. Prashant Kang RBC 5.10 106/ul Normal 4.20-5.40 [facility] Comment on above: Performed By: #### P TT, PT #### [facility] [address] [place] [address] Dr. Prashant Kang WBC 6.8 103/ul Normal 4.0-11.0 [facility] Comment on above: Performed By: #### P TT, PT #### [facility] [address] [place] [address] Dr. Prashant Kang GROUP A STREP CULTUREon 12-29 S. pyogenes Ag Ql (Unsp spec) Culture Observations: NEGATIVE FOR GROUP A STREPTOCOCCUS. Normal [facility] Comment on above: Performed By: #### P TT, PT #### [facility] [address] [place] [address] Dr. Prashant Kang PROF 14(COMP METB)on 022 Albumin [Mass/Vol] 3.6 g/dL Normal 3.4-5.0 [facility] [place] Comment on above: Performed By: #### C MP #### [facility] [address] [place] [address] Dr. Prashant Kang Albumin/Globulin [Mass ratio] 0.8 {ratio} Normal [facility] Comment on above: Performed By: #### C MP #### [facility] [address] [place] [address] Dr. Prashant Kang ALP [Catalytic activity/Vol] 74 U/L Normal 46-116 [facility] Comment on above: Performed By: #### C MP #### [facility] [address] [place] [address] Dr. Prashant Kang ALT [Catalytic activity/Vol] 40 U/L Normal 14-59 [facility] Comment on above: Performed By: #### C MP #### [facility] [address] [place] [address] Dr. Prashant Kang Anion gap [Moles/Vol] 14.0 mmol/L Normal [facility] Comment on above: Performed By: #### C MP #### [facility] [address] [address] [address] Prashant Kang AST [Catalytic activity/Vol] 31 U/L Normal 15-37 [facility] Comment on above: Performed By: #### C MP #### [facility] [address] [address] [address] Prashant Kang Bilirubin [Mass/Vol] 0.4 mg/dL Normal 0.2-1.0 [facility] Comment on above: Performed By: #### C MP #### [facility] [address] [place] [address] Dr. Prashant Kang Calcium [Mass/Vol] 8.8 mg/dL Normal 8.5-10.1 [facility] [place] Comment on above: Performed By: #### C MP #### [facility] [address] [place] [address] Dr. Prashant Kang Chloride [Moles/Vol] 105 mmol/L Normal 98-107 [facility] Comment on above: Performed By: #### C MP #### [facility] [address] [address] [address] Prashant Kang CO2 [Moles/Vol] 26.6 mmol/L Normal 21.0-32.0 [facility] Comment on above: Performed By: #### C MP #### [facility] [address] [place] [address] Dr. Prashant Kang Creatinine [Mass/Vol] 0.80 mg/dL Normal 0.55-1.02 [facility] Comment on above: Performed By: #### C MP #### [facility] [address] [address] [address] Prashant Kang EGFR-AF PALESTINIAN >60 Normal >=60 [facility] Comment on above: Performed By: #### C MP #### [facility] [address] [address] [address] Prashant Kang EGFR-NON AF PALESTINIAN >60 Normal >=60 [facility] Comment on above: Performed By: #### C MP #### [facility] [address] [address] [address] Prashant Kang Globulin (S) [Mass/Vol] 4.3 g/dL Normal [facility] Comment on above: Performed By: #### C MP #### [facility] [address] [address] [address] Prashant Kang Glucose [Mass/Vol] 101 mg/dL Normal 74-106 [facility] Comment on above: Performed By: #### C MP #### [facility] [address] [address] [address] Prashant Kang Potassium [Moles/Vol] 4.6 mmol/L Normal 3.5-5.1 [facility] Comment on above: Performed By: #### C MP #### [facility] [address] [address] [address] Prashant Kang Protein [Mass/Vol] 7.9 g/dL Normal 6.4-8.2 [facility] Comment on above: Performed By: #### C MP #### [facility] [address] [address] [address] Prashant Kang Sodium [Moles/Vol] 141 mmol/L Normal 136-145 [facility] Comment on above: Performed By: #### C MP #### [facility] [address] [address] [address] Prashant Kang Urea nitrogen [Mass/Vol] 11.0 mg/dL Normal 7.0-18.0 [facility] Comment on above: Performed By: #### C MP #### [facility] [address] [address] [address] Prashant Kang Urea nitrogen/Creatinine [Mass ratio] 13.8 mg/mg Normal [facility] Comment on above: Performed By: #### C MP #### [facility] [address] [place], [place] [address] Dr. Prashant Kang STREPT SCREENon 01-08-2022 STREP SCREEN A Negative Normal NEGATIVE [facility] Comment on above: Performed By: #### P TT, PT #### [facility] [address] [place], [place] [address] Dr. Prashant Kang XR NECK SOFT TISSUEon [...] MIKE SAID Date: 2022-01-08 04:43 Normal [facility] Covid-19 PCR ([facility]VD[facility])on SARS-CoV-2 (COVID-19) RNA DENEEN+probe Ql (Unsp spec) Not detected Normal NOT DETECTED [facility] Comment on above: Result Comment: This test is not yet approved or cleared by the [place] FDA. When there are no FDA-approved or cleared tests available, and other criteria are met, FDA can make tests available under an emergency access mechanism called an Emergency Use Authorization (EUA). The EUA for this test is supported by the Remote Sensing Engineer of Health and Human Service's (HHS's) [...] Performed By: #### P TT, PT #### [facility] [address] [address] [address] Prashant Kang Vital Signs Date Time Vital Sign Value Performing Clinician Donta coleman 03-24-2024 13:16-0500 Body mass index (BMI) [Ratio] 40.02 kg/m2 Acosta Shania DO Work Phone: [facility] 03-24-2024 13:16-0500 Body weight 99.25 kg Acosta Shania DO Work Phone: [facility] 03-24-2024 13:16-0500 Diastolic blood pressure 70 mm[Hg] Acosta Shania DO Work Phone: [facility] 03-24-2024 13:16-0500 Systolic blood pressure 120 mm[Hg] Acosta Shania DO Work Phone: [facility] 03-10-2024 13:45-0500 Body mass index (BMI) [Ratio] 40.38 kg/m2 Acosta Shania DO Work Phone: [facility] 03-10-2024 13:45-0500 Body weight 100.15 kg Acosta Shania DO Work Phone: [facility] 03-10-2024 13:45-0500 Diastolic blood pressure 76 mm[Hg] Acosta Shania DO Work Phone: [facility] 03-10-2024 13:45-0500 Systolic blood pressure 114 mm[Hg] Acosta Shania DO Work Phone: [facility] 02-25-2024 14:08-0400 Body mass index (BMI) [Ratio] 39.87 kg/m2 Kim YAO Work Phone: [facility] 02-25-2024 14:08-0400 Body weight 98.88 kg Kim YAO Work Phone: [facility] 02-25-2024 14:08-0400 Diastolic blood pressure 70 mm[Hg] Kim YAO Work Phone: [facility] 02-25-2024 14:08-0400 Systolic blood pressure 114 mm[Hg] Kmi YAO Work Phone: [facility] [...] Hospital 05-04-2022 09:40-0500 Body temperature 97.2 [degF] NA Jose BULLOCK Work Phone: [facility] 05-04-2022 09:40-0500 Body weight 88.81 kg JONNY Garcia MD Work Phone: [facility] 05-04-2022 09:40-0500 Diastolic blood pressure 73 mm[Hg] JONNY Garcia MD Work Phone: [facility] 05-04-2022 09:40-0500 Heart rate 67 /min JONNY Garcia MD Work Phone: [facility] 05-04-2022 09:40-0500 Respiratory rate 16 /min JONNY Garcia MD Work Phone: [facility] 05-04-2022 09:40-0500 SaO2% (BldA) [Mass fraction] 100 % JONNY Garcia MD Work Phone: [facility] 05-04-2022 09:40-0500 Systolic blood pressure 113 mm[Hg] JONNY Garcia MD Work Phone: [facility] Encounters Encounter Date Encounter Type Care Provider Facility Start: 03-31-2024 End: 03-31-2024 Bamboo flowsheet Acosta Shania DO Work Phone: [facility] Start: 03-31-2024 End: 03-31-2024 Bamboo flowsheet Acosta Shania DO Work Phone: [...] 15 minutes Acosta Shania DO Work Phone: [facility] Comment on above: Third trimester preg yogesh; 33 weeks gestation of ; Thyroid disease (CMS/HCC) Start: 02-26-2024 End: 02-26-2024 Patient encounter procedure [facility] Comment on above: 24 weeks gestation o f ; Food insecurity Start: 02-25-2024 End: 02-25-2024 Bamboo flowsheet Kim YAO Work Phone: [facility] Start: 02-25-2024 End: 02-25-2024 Bamboo flowsheet Kim YAO Work Phone: [facility] Start: 02-25-2024 End: 02-25-2024 Office outpatient visit 15 minutes Kim YAO Work Phone: [facility] Comment on above: Third trimester preg yogesh; 31 weeks gestation of ; Thyroid disease (CMS/HCC) Start: 02-25-2024 End: 02-25-2024 ambulatory KIM MCKEON Not Available Start: 02-11-2024 End: 02-11-2024 Bamboo flowsheet Acosta Shania DO Work Phone: [facility] Start: 02-11-2024 End: 02-11-2024 Bamboo flowsheet Acosta Shania DO Work Phone: [facility] Start: 02-11-2024 End: 02-11-2024 Office outpatient visit 15 minutes Acosta Shania DO Work Phone: [facility] Comment on above: Third trimester preg yogesh; Thyroid disease (CMS/HCC); 29 weeks gestation of ; History of placental abruption; Non compliance w medication regimen Start: 02-11-2024 End: 02-11-2024 ambulatory ACOSTA SHANIA Not Available Start: 02-08-2024 End: 02-08-2024 Clinisync Result Encounter Acosta Shania DO Work Phone: [facility] External Department Unsolicited Start: 02-08-2024 End: 02-08-2024 Clinisync Result Encounter Acosta Shania DO Work Phone: [facility] External Department Unsolicited Start: 01-23-2024 End: 01-24-2024 Telephone encounter Arslan Garcia MD Work Phone: Radiation Oncology Comment on above: Patient Question Start: 01-14-2024 End: 01-14-2024 ambulatory ACOSTA SHANIA Not Available Start: 01-11-2024 End: 01-11-2024 ambulatory ACOSTA R SHANIA [facility] Start: 12-17-2023 End: 12-17-2023 ambulatory [...] encounter [facility]sl[facility] Comment on above: Appointment Confirma tion Start: 02-08-2023 End: 02-08-2023 ambulatory SARA MEDELLIN Facility:[facility] Start: 02-01-2023 End: 02-01-2023 ambulatory SARA MEDELLIN Facility:[facility] Start: 11-09-2022 Telephone encounter Arslan Garcia MD [facility] Comment on above: Appointment Confirma tion Start: 09-01-[address] SARA MEDELLIN . Facili ty:[facility] Start: 08-23-2022 End: 08-23-2022 ambulatory DHRUV MCDONALD Facility:[facility] Start: 08-17-2022 End: 08-27-[address] ACOSTA JAUREGUI . Facility:[facility] Start: 08-06-2022 End: 08-06-2022 ambulatory DHRUV CMDONALD Facility:[facility] Start: 07-17-2022 Telephone encounter Arslan Garcia [...] encounter Arslan Garcia MD [facility] Comment on above: Missed Appointment Start: 04-20-2022 Patient encounter procedure [facility] Provider [facility] Department Start: 04-11-2022 End: 04-11-2022 Patient encounter procedure Lab[facility] [place] [facility] Work Phone: Radiation Oncology Comment on above: Thyroid cancer (HCC) (Primary Dx) Start: 03-09-2022 Encounter for preprocedural laboratory examination DR CHARLIE [facility] Start: 03-07-2022 End: 03-08-[address] [...] BMI Screening Adult BMI Screen ing [facility] Start: 01-10-2025 Tobacco Screening Tobacco Screening [facility] Start: 05-12-2024 End: 05-12-2024 ambulatory 05/12/2024 1:40 PM EST Visit [facility] [address] [place] [id number] Acosta Jauregui, DO [address] [place] [address] [facility] Start: 03-31-2024 End: 03-31-2024 Patient encounter procedure [facility] Comment on above: Arrived Start: 03-24-2024 End: 03-24-2024 Patient encounter procedure 03/24/2024 1:00 PM EST Routine [facility] [address] [place] [id number] Acosta Jauregui, DO [address] [place] [address] [facility] Start: 03-10-2024 End: 03-10-2024 Patient encounter procedure 03/10/2024 1:00 PM EST Routine [facility] [address] [place] [id number] Acosta Jauregui, DO [address] [place] [address] [facility] Start: 02-25-2024 End: 02-24-2025 [...] placental abruption Expected: 02/11/2024 (Approximate), Expires: 02/10/2025 [facility] Healthcare Work Phone: Comment on above: Expected: 02/11/2024 (Approximate), Expires: 02/10/2025 Start: 02-11-2024 End: 02-10-2025 US for US OB SCAN FOR GROWTH Imaging Routine Thyroid disease (CMS/HCC) 29 weeks gestation of History of placental abruption Expected: 02/11/2024 (Approximate), Expires: 02/10/2025 [facility] Healthcare Comment on above: Expected: 02/11/2024 (Approximate), Expires: 02/10/2025 Start: 02-11-2024 End: 02-11-2024 Patient encounter procedure [facility] Comment on above: Arrived Start: 12-30-2023 Covid-19 Vaccine () Covid-19 Vaccine () [facility] Start: 12-30-2023 Influenza vaccination [facility] Start: 08-15-2023 End: 11-14-2023 Thyroglobulin and Thyrogobulin Ab panel - Serum or Plasma THYROGLOBULIN, SERUM WITH REFLEX TO IA OR LC-MS/MS Lab Routine Thyroid cancer (HCC) Expected: 08/15/2023, Expires: 11/14/2023 [facility] Work Phone: Comment on above: Expected: 08/15/2023 , Expires: 11/14/2023 Start: 08-15-2023 End: 11-14-2023 Thyrotropin [Units/volume] in Serum or Plasma THYROID STIMULATING HORMONE Lab Routine Thyroid cancer (HCC) Expected: 08/15/2023, Expires: 11/14/2023 [facility] Work Phone: Comment on above: Expected: 08/15/2023 , Expires: 11/14/2023 Start: 08-15-2023 End: 07-17-2024 Thyroxine (T4) [Mass/volume] in Serum or Plasma T4/THYROXINE Lab Routine Thyroid cancer (HCC) Expected: 08/15/2023, Expires: 11/14/2023 [facility] Work Phone: Comment on above: Expected: 08/15/2023 , Expires: 11/14/2023 Start: 06-26-2023 End: 06-26-2023 Professional / ancillary services management 06/26/2023 1:00 PM EST Ancillary Procedure [facility] [address] [place] [address] [facility] Start: 06-12-2023 End: 06-12-2024 US for US PELVIS-TRANSVAG IF INDICATED Imaging Routine Amenorrhea Expected: 06/12/2023 (Approximate), Expires: 06/12/2024 [facility] Comment on above: Expected: 06/12/2023 (Approximate), Expires: 06/12/2024 Start: 04-30-2023 Behavioral Health Screening Behavioral Health Screening [facility] Start: 04-30-2023 Depression Assessment Depression Ass essment [facility] Start: 12-29-2022 Covid-19 Vaccine () Covid-19 Vaccine () [facility] Start: 12-29-2022 Influenza vaccination [facility] Start: 07-02-2022 End: 09-01-2022 THYROGLOBULIN BY MASS SPECTROMETRY THYROGLOBULIN BY MASS SPECTROMETRY Lab Routine Thyroid cancer (HCC) Expected: 07/02/2022, Expires: 09/01/2022 [facility] Work Phone: Comment on above: Expected: 07/02/2022 , Expires: 09/01/2022 Start: 07-02-2022 End: 09-01-2022 Thyrotropin [Units/volume] in Serum or Plasma TSH BLD Lab Routine Thyroid cancer (HCC) Expected: 07/02/2022, Expires: 09/01/2022 [facility] Work Phone: Comment on above: Expected: 07/02/2022 , Expires: 09/01/2022 Start: 07-02-2022 End: 09-01-2022 Thyroxine (T4) [Mass/volume] in Serum or Plasma T4/THYROXINE BLOOD Lab Routine Thyroid cancer (HCC) Expected: 07/02/2022, Expires: 09/01/2022 [facility] Work Phone: Comment on above: Expected: 07/02/2022 , Expires: 09/01/2022 Start: 04-30-2022 [facility]PRESSION [facility]ESSMENT [facility] Start: 2022 HPV TESTING HPV TESTING [facility] Start: 2022 Screening for malign ant neoplasm of cervix HPV Testing [facility] Start: 12-29-2021 Influenza vaccination INFLUENZA (#1) [facility] Start: 04-30-2021 DEPRESSION ASSESSMENT [facility] Start: 2013 PAP TESTING PAP TESTING [facility] Start: 2013 Screening for malign ant neoplasm of cervix [facility] Start: 2011 DTaP,Tdap and Td Vaccines (1 - Tdap) DTaP,Tdap and Td Vaccines (1 - Tdap) [facility] Start: 2011 Hepatitis B Vaccine (1 of 3 - 19+ 3-dose series) Hepatitis B Vaccine (1 of 3 - 19+ 3-dose series) [facility] Start: 2011 Urine microalbumin profile [facility] Start: 2010 Adult BMI Follow Up Plan Adult BMI Follow Up Plan [facility] Start: 2010 Anxiety Screening Anxiety Screening [facility] Start: 2010 Depression Screening Depression Scre [facility] Start: 2010 HEPATITIS C SCREENING HEPATITIS C [facility] Start: 2010 Hepatitis C screening Hepatitis C [facility] Start: 2010 HIV SCREENING HIV SCREENING [facility] Start: 2010 HIV screening HIV Screening [facility] Start: 2004 Depression Screening Depression Scre [facility] Start: 1998 PNEUMOCOCCAL (1 - PCV) PNEUMOCOCCAL (1 - PCV) [facility] Start: 1998 Pneumococcal vaccination [facility] Start: 1992 COVID-19 VACCINE (#1) COVID-19 VACCI NE (#1) [facility] Start: 1992 HEPATITIS B (1 of 3 - 3-dose series) HEPATITIS B (1 of 3 - 3-dose series) [facility] Start: 1992 Hepatitis B Vaccine (1 of 3 - 3-dose series) Hepatitis B Vaccine (1 of 3 - 3-dose series) [facility] Start: 1992 Tobacco Counseling Tobacco Counselin [employer] [facility] CBC W Auto Different ial [...] on above: Ordered: 06/12/2023 [facility] Payers Date Payer Category Payer Medicaid [place] [employer] [id number] 2020 Medicaid [id number] 2020 Medicaid (Managed Care) [facility] MEDICA[facility] [id number] 1992 Unknown [id number] 2.16.840.1.782785.3.579.2. 593 1992 Unknown [id number] 2.16.840.1.331617.3.579.2. 593 1992 Unknown [id number] 2.16.840.1.476375.3.579.2. 593 1992 Unknown [id number] 2.16.840.1.940829.3.579.2. 593 1992 Unknown [id number] 2.16.840.1.540286.3.579.2. 593 1992 Unknown [id number] 2.16.840.1.858555.3.579.2. 593 1992 Unknown [id number] 2.16.840.1.105094.3.579.2. 593 1992 Unknown [id number] 2.16.840.1.412801.3.579.2. 593 1992 Unknown [id number] 2.16.840.1.454608.3.579.2. 593 1992 Unknown [id number] 2.16.840.1.109359.3.579.2. 593 1992 Unknown [id number] 2.16.840.1.524916.3.579.2. 593 1992 Unknown [id number] 2.16.840.1.815959.3.579.2. 593 1992 Unknown [id number] 2.16.840.1.913834.3.579.2. 593 1992 Unknown [id number] 2.16.840.1.534170.3.579.2. 593 1992 Unknown [id number] 2.16.840.1.224536.3.579.2. 593 1992 Unknown [id number] 2.16.840.1.852946.3.579.2. 1286 1992 Unknown [id number] 2.16.840.1.963239.3.579.2. 1286 1992 Unknown [id number] 2.16.840.1.967163.3.579.2. 1259 1992 Unknown [id number] 2.16.840.1.464926.3.579.2. 9 1992 Unknown [id number] 2.16.840.1.563864.3.579.2. 1259 1992 Unknown [id number] 2.16.840.1.562484.3.579.2. 9 1992 Unknown [id number] 2.16.840.1.609373.3.579.2. 9 1992 Unknown [id number] 2.16.840.1.780699.3.579.2. 9 1992 Unknown [id number] 2.16.840.1.753550.3.579.2. 1259 1992 Unknown [id number] 2.16.840.1.345145.3.579.2. 9 1992 Unknown [id number] 2.16.840.1.942852.3.579.2. 1259 1992 Unknown [id number] 2.16.840.1.250158.3.579.2. 9 1959 Unknown [id number] Social History Date Type Detail Facility Start: 04-11-2022 End: 09-23-2022 Tobacco smoking status NHIS Smokes tobacco daily [facility] History of tobacco use Cigarette Smoker [facility] Start: 04-11-2022 End: 09-14-2023 Cigarettes smoked current (pack per day) - Reported 1 [facility] Start: 04-11-2022 End: 09-23-2022 Tobacco use and exposure Smokeless tobacco non-user [facility] Start: 04-11-2022 End: 03-24-2024 Alcohol intake Current drinker of alcohol (finding) [facility] Start: 04-11-2022 Alcohol Comment socially [facility] Start: 1990 Sex Assigned At Not on file [facility] Start: 05-04-2022 End: 09-14-2023 Tobacco use panel [facility] Adult Depression Screening Assessment 0 [facility] Start: 10-03-2022 Alcohol Comment caffeine intak e: 1-2 cups per day [facility] Start: 1990 Sex Assigned At Female N [facility] Start: 10-04-2022 Gender identity Identifies as female gender (finding) [facility] Start: 08-06-2023 [facility] Start: 01-11-2024 Alcoholic beverage intake Ex-drinker (finding) [facility] Start: 08-26-2018 Sex Female (finding) [facility] Clinical Notes 03-07-2022 to 03-24-2024 Sylvia Rader [...] Problems Diagnosis Date Noted Papillary thyroid carcinoma (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 29 weeks gestation of 02/11/2024 Non compliance w medication regimen 02/11/2024 History of placental abruption 02/11/2024 Resolved Ambulatory Problems Diagnosis Date Noted Acid reflux 09/23/2022 Amenorrhea 09/23/2022 Lesion of palate 09/23/2022 depression ([facility]/HCC) 09/23/2022 Vaginal delivery 09/23/2022 Past Medical History: Diagnosis Date Chronic maxillary sinusitis Diarrhea Ear problems Family planning Fatigue Fibroadenoma of breast, right Foreign body sensation in throat History of miscarriage LPRD (laryngopharyngeal reflux disease) Obesity Papilloma of palate PCOS (polycystic ovarian syndrome) Thyroid cancer ([facility]/HCC) Thyroid mass ([facility]/HCC) 09/23/2022 Thyroid nodule ([facility]) HISTORY PAST MEDICAL HISTORY SOCIAL HISTORY [...] (CMS/HCC) Thyroid mass (CMS/HCC) 09/23/2022 Thyroid nodule ([facility]) Vaginal delivery 09/23/2022 Vaginal delivery Social [...] nursing note reviewed. Exam conducted with a box worker present. Vitals: Estimated body mass index [...] in this encounter [facility] 03-10-2024 History of Present illness Narrative [...] nursing note reviewed. Exam conducted with a box worker present. Vitals: Estimated body mass index [...] 2 weeks. Patient will continue NST/BPP at [facility] as well. Documented by Sylvia Rader LPN on behalf of: Acosta Jauregui DO documented in this encounter [facility] 02-26-2024 History of Present illness Narrative [facility] Patient visited the Food Clinic and received food documented in this encounter [facility] 02-25-2024 History of Present illness Narrative Reason [...] Problems Diagnosis Date Noted Papillary thyroid carcinoma ([facility]/HCC) 09/23/2022 Thyroid disease (CMS/HCC) 09/23/2022 Bilateral tinnitus [...] nursing note reviewed. Exam conducted with a box worker present. Vitals: Estimated body mass index [...] to scheduled follow up. Irais Turpin RN [facility] 01-24-2024 Miscellaneous Notes I notified Amanda of Dr. Garcia's response. She will call after she delivers in March 2024 to scheduled follow up. Irais Turpin RN Amanda called stating she is currently and is being followed very closely by [facility] in [place] and her local [facility]. She states her high risk is d/t [...] Irais Turpin RN documented in this encounter [facility] 01-23-2024 Telephone encounter Note Amanda called stating she is currently and is being followed very closely by [facility] in [place] and her local [facility]. She states her high risk is d/t [...] possible lab work? Thanks Irais Turpin RN [facility] 11-13-[address] Christine office received ref and they will be calling patient to schedule appointment. Records faxed to Dr. Arteaga. Lawanda please send records to [facility] facesheet in your box Images from the original note were not included. Spoke to pt. She would like to see endocrinology in [place]. Pt's OB did adjust synthroid recently and has been monitoring labs. TREASURE- please sign pended order. PSS- please arrange visit when order is signed. KAREN Peters Tiffany Weyer, Angela, RN Previous Messages ----- Message ----- From: Arslan Garcia MD Sent: 11/02/2023 12:08 PM EDT To: Obi Dunlap; Radgermaine [facility] Nurse [place] Given what sounds like patient is in first trimester and ongoing concerns of breast-feeding recommend she follow-up with endocrinology. documented in this encounter [facility] 11-13-[address] Christine office received ref and they will be calling patient to schedule appointment. [facility] 11-12-2023 Telephone encounter Note Records faxed to Dr. Arteaga. [facility] 11-12-2023 Telephone encounter Note Lawanda please send records to She facesheet in your box [facility] 11-12-2023 Telephone encounter Note Images from the original note were not included. Spoke to pt. She would like to see endocrinology in [place]. Pt's OB did adjust synthroid recently and has been monitoring labs. TREASURE- please sign pended order. PSS- please arrange visit when order is signed. KAREN Petres, Danna Mcdowell RN Previous Messages ----- Message ----- From: Arslan Garcia MD Sent: 11/02/2023 12:08 PM EDT To: Obi Dunlap; Carlos [facility] Nurse [place] Given what sounds like patient is in first trimester and ongoing concerns of breast-feeding recommend she follow-up with endocrinology. [facility] 10-24-2023 Note HNO ID: [id number] Author: Arslan GARCIA MD Service: ? Author Type: Physician Type: Progress Notes Filed: 11/02/2023 12:08 Note Text: Unable to reach patient. [facility] 10-24-2023 History of Present illness Narrative Unable to reach patient. documented in this encounter [facility] 08-14-2023 Miscellaneous Notes TREASURE- please [...] Danna Pitts RN documented in this encounter [facility] 07-19-2023 Miscellaneous Notes Pt called to request labs sent to [facility]. Faxed to central scheduling. Edna Sal RN documented in this encounter [facility] 06-12-2023 History of Present illness [...] is scheduled for appointments Arslan Garcia MD [facility]; Obi Genao 4 months with labs. Orders have been placed in epic. documented in this encounter [facility] 02-08-2023 Note HNO ID: [id number] Author: Arslan Garcia MD Service: ? Author [...] Time Spent: 6 minutes Arslan Garcia MD [facility] 11-09-2022 Miscellaneous Notes Images from the original note were not included. Patient is called and scheduled. Arslan Garcia MD [facility] Nurse [place]; Obi Genao 8 weeks with labs, orders placed, thank you documented in this encounter [facility] 07-17-2022 Miscellaneous Notes Appointment has been changed to phone appt. Tj Funez Pt called in requesting to be switched to a phone visit tomorrow. Her kids are on spring break and a couple of them are sick. Labs have been done and resulted. PSS- please change to phone visit for tomorrow. Danna Pitts RN documented in this encounter [facility] 05-04-2022 History of Present illness Narrative Radiation Oncology - FollowupNote PATIENT NAME: Amanda Cortez PATIENT : 1990 DIAGNOSIS: Thyroid cancer, classic papillary thyroid carcinoma, status post total thyroidectomy and right neck exploration on 03/07/2022, stage I [id number]. HPI: Patient returns after further work-up and [...] Take by mouth. OTC PRODUCT Supplement by [employer] for breast feeding levothyroxine (SYNTHROID) 112 [...] and right neck exploration on 03/07/2022, stage [id number]. Patient does have significant thyroglobulin antibody however [...] for this encounter. documented in this encounter [facility] 04-25-2022 Miscellaneous Notes Patient had been rescheduled. Tj Funez Images from the original note were not included. Called patient to reschedule, LMOV. MD Jessica Jenkins [facility]; Tj Funez Unable to reach please reschedule documented in this encounter [facility] 04-11-2022 Nurse Note Amanda Cortez presents in office today for: Lab Draw during Office Visit . Ordering Provider: Felipe Garcia M.D. Test (s) ordered: TG Method for obtaining blood: Phlebotomy was performed, accessing right antecubital vein. Needle removed intact. Dressing secured. Patient denies discomfort, dizziness, light-headedness or weakness and left the department without assist. Danna Pitts RN documented in this encounter [facility] 03-07-2022 Note OPERATIVE NOTE OPERATION [...] the recovery room in good condition. [facility] Evaluation note Diagnosis Thyroid cancer (HCC)- Primary Malignant neoplasm of thyroid gland [facility] Thyroid cancer (HCC)- Primary Malignant neoplasm of thyroid gland [facility] Diagnosis Missed menses Amenorrhea Absence of menstruation documented in this encounter [facility] Healthcare[facility]* Diagnosis Thyroid cancer (HCC)- Primary Malignant neoplasm of thyroid gland [facility] Diagnosis Thyroid cancer (HCC)- Primary Malignant neoplasm of thyroid gland [facility] Diagnosis Thyroid cancer (HCC)- Primary Malignant neoplasm of thyroid gland [facility] Diagnosis Third trimester state, incidental Thyroid disease (CMS/HCC) Unspecified disorder of thyroid 29 weeks gestation of History of placental abruption Non compliance w medication regimen documented in this encounter [facility] HealthcareEvaluation note* Diagnosis Third trimester state, incidental 31 weeks gestation of Thyroid disease (CMS/HCC) Unspecified disorder of thyroid documented in this encounter [facility] HealthcareEvaluation note* Diagnosis 24 weeks gestation of Food insecurity [facility] Diagnosis Third trimester state, incidental 33 weeks gestation of Thyroid disease (CMS/HCC) Unspecified disorder of thyroid documented in this encounter [facility] HealthcareEvaluation note* Diagnosis 35 weeks gestation of Third trimester state, incidental documented in this encounter [facility] HealthcareInstructionsNot on filedocumented in [facility] Summary Purpose Family History No [...] cancer (HCC) Procedures CONSULT TO ENDOCRINOLOGY OFFICE/OUTPATIENT [facility] 60 MINUTES Arslan Garcia MD [address] [place] [address] [place] [address] Referral ID Status Reason Start Date Expiration Date Visits Requested Visits Authorized [id number] Authorized PCP Requested Referral 11/12/2023 11/11/2024 1 1 Additional Source Comments Source Comments (unrecognize d section and content) In the event this informatio n is protected by the Federal Confidentiality of Alcohol and Drug Abuse Patient Records regulations: The Federal rules restrict any use of the information to criminally investigate or prosecute any alcohol or drug abuse patient.[facility] the event this information is protected by the Federal Confidentiality of Alcohol and Drug Abuse Patient Records regulations: The Federal rules restrict any use of the information to criminally investigate or prosecute any alcohol or drug abuse patient.[facility] the event this information is protected by the Federal Confidentiality of Alcohol and Drug Abuse Patient Records regulations: The Federal rules restrict any use of the information to criminally investigate or prosecute any alcohol or drug abuse patient.[facility] the event this information is protected by the Federal Confidentiality of Alcohol and Drug Abuse Patient Records regulations: The Federal rules restrict any use of the information to criminally investigate or prosecute any alcohol or drug abuse patient.[facility] the event this information is protected by the Federal Confidentiality of Alcohol and Drug Abuse Patient Records regulations: The Federal rules restrict any use of the information to criminally investigate or prosecute any alcohol or drug abuse patient.[facility] the event this information is protected by the Federal Confidentiality of Alcohol and Drug Abuse Patient Records regulations: The Federal rules restrict any use of the information to criminally investigate or prosecute any alcohol or drug abuse patient.[facility] the event this information is protected by the Federal Confidentiality of Alcohol and Drug Abuse Patient Records regulations: The Federal rules restrict any use of the information to criminally investigate or prosecute any alcohol or drug abuse patient.[facility] the event this information is protected by the Federal Confidentiality of Alcohol and Drug Abuse Patient Records regulations: The Federal rules restrict any use of the information to criminally investigate or prosecute any alcohol or drug abuse patient.[facility] the event this information is protected by the Federal Confidentiality of Alcohol and Drug Abuse Patient Records regulations: The Federal rules restrict any use of the information to criminally investigate or prosecute any alcohol or drug abuse patient.[facility] the event this information is protected by the Federal Confidentiality of Alcohol and Drug Abuse Patient Records regulations: The Federal rules restrict any use of the information to criminally investigate or prosecute any alcohol or drug abuse patient.[facility] the event this information is protected by the Federal Confidentiality of Alcohol and Drug Abuse Patient Records regulations: The Federal rules restrict any use of the information to criminally investigate or prosecute any alcohol or drug abuse patient.[facility] Center[facility] the event this information is protected by the Federal Confidentiality of Alcohol and Drug Abuse Patient Records regulations: The Federal rules restrict any use of the information to criminally investigate or prosecute any alcohol or drug abuse patient.[facility] Reason for Visit (unrecogniz ed [...] Care Teams (unrecognized sec tion and content) Ppa Teacher Relationship Specialty Start Date End Date Sara Medellin MD [address] [place] [address] PCP - General Family Medicine 04/11/22 Ppa Teacher Relationship Specialty Start Date End Date Sara Medellin MD [address] [place] [address] PCP - General Family Medicine 04/11/22 Ppa Teacher Relationship Specialty Start Date End Date Sara Medellin MD [address] [place] [address] PCP - General Family Medicine 04/11/22 Ppa Teacher Relationship Specialty Start Date End Date Sara Medellin MD PCP - General Family Medicine 04/11/22 Ppa Teacher Relationship Specialty Start Date End Date Sara Medellin MD PCP - General Family Medicine 04/11/22 Ppa Teacher Relationship Specialty Start Date End Date Sara Medellin MD [address] [place] [facility] [place] [address] PCP - General Family Medicine 10/03/22 Ppa Teacher Relationship Specialty Start Date End Date Sara Medellin MD PCP - General Family Medicine 04/11/22 Ppa Teacher Relationship Specialty Start Date End Date Sara Medellin MD PCP - General Family Medicine 04/11/22 Ppa Teacher Relationship Specialty Start Date End Date Sara Medellin MD PCP - General Family Medicine 04/11/22 Ppa Teacher Relationship Specialty Start Date End Date Sara Medellin MD [address] [place] [facility] [place] [address] PCP - General Family Medicine 10/03/22 Ppa Teacher Relationship Specialty Start Date End Date Sara Medellin MD [address] [place] [facility] [place] [address] PCP - General Family Medicine 10/03/22 Ppa Teacher Relationship Specialty Start Date End Date Sara Medellin MD [address] [place] [facility] [place] [address] PCP - General Family Medicine 10/03/22 Ppa Teacher Relationship Specialty Start Date End Date Sara Medellin MD [address] [place] [facility] [place] [address] PCP - General 01/10/24 Ppa Teacher Relationship Specialty Start Date End Date Sara Medellin MD [address] [facility] [place] [address] PCP - General Family Medicine 10/03/22 Ppa Teacher Relationship Specialty Start Date End Date Sara Medellin MD [address] [facility] [place] [address] PCP - General Family Medicine 10/03/22 INFORMATION SOURCE (unrecogn ized section and content) DATE CREATED AUTHOR 09/02/2022 [facility] DATE CREATED AUTHOR AUTHOR'S ORGANIZ ATION 01/11/2024 [facility] DATE CREATED AUTHOR AUTHOR'S ORGANIZ ATION 01/13/2024 [facility] DATE CREATED AUTHOR AUTHOR'S ORGANIZ ATION 03/26/2024 [facility] EPIC FOR RECORDS PERTAINING TO PATIENTS [...] BASED ON THE PRIMARY CLINICAL RECORDS. [facility] [employer] provides no warranty or guarantee of the accuracy or completeness of information in this document.
== END 2024-03-31 20:12 | disposition home or self-care (01) ==
LOC: LAB 20:11
PROVIDERS: PCP Family Medicine; Visit Provider Obstetrics & Gynecology
DX: Z34.93 Encounter for supervision of normal pregnancy, unspecified, third trimester (principal)
CPT/HCPCS: 87081; 87150

== ENCOUNTER 2024-04-04 06:10 | Outpatient (OUT) | payer OTHER, SELFPAY ==
--- OUTSIDE RECORDS SUMMARY | 2024-04-04 06:13 | XMS_ITS | CCD ---
Author Organization [facility] Care Team Providers Care Thread Twister Name Role Phone Sara Medellin MD Primary Care Provider [phone] RAIZA, DR GUERRA Consulting Unavailable HOY ., [...] Unavailable Sara Medellin MD Primary Care Provider [phone] Sara Medellin MD Primary Care Provider [phone] Sara Medellin MD Primary Care Provider [phone] SARA MEDELLIN Primary Care Unavailable Arslan GARCIA Attending Unavailable SARA MEDELLIN Primary Care Unavailable Arslan GARCIA Attending Unavailable SARA MEDELLIN Primary Care Unavailable YFN MICHELLE Attending Unavailable SHANIA, ACOSTA R Referring Unavailable SARA MEDELLIN Primary Care Unavailable SHANIA, ACOSTA R Referring Unavailable SARA MEDELLIN Primary Care Unavailable Sara Medellin MD Primary Care Provider [phone] SHANIA, ACOSTA Attending Unavailable SAHNIA, ACOSTA Attending Unavailable SHANIA, ACOSTA Attending Unavailable SHANIA, ACOSTA Attending Unavailable SHANIA, ACOSTA Attending Unavailable SHANIA, ACOSTA Attending Unavailable KIM MCKEON Attending Unavailable SHANIA, ACOSTA Attending Unavailable SHANIA, ACOSTA Attending Unavailable SHANIA, ACOSTA Attending Unavailable Allergies Allergy Classification Reported Allergen(s) Allergy Type Date of Onset Reaction(s) Facility (20 sources) Cefaclor; Translations: [CEFACLOR] Drug Allergy 04-11-20 22 Hives, Shortness of Breath, Anaphylaxis [facility] (13 sources) Penicillins; Translations: [PENICILLINS] Drug Allergy 04-11-20 22 Hives, Shortness of Breath [facility] (2 sources) Cefaclor Drug Allergy 05-10-19 14 [facility] (2 sources) Penicillins Drug allergy (disorder) 05-10-19 14 [facility] (19 sources) Penicillin G sodium; Translations: [PENICILLIN G SODIUM] Allergy to substance 09-24-19 Anaphylaxis [facility] (18 sources) Cephalosporins (Antibiotic); Translations: [CEPHALOSPORINS] Propensity to adverse reactions to drug (disorder) 12-17-19 Anaphylaxis [facility] (18 sources) Penicillin; Translations: [PENICILLIN G] Drug Allergy [...] aspirin 81 mg delayed release oral tablet (17 sources) Platelet Aggregation Inhibitor, Nonsteroidal Anti-inflammatory Drug [...] As directed 6 tablet 02/26/2024 03/24/2024 Discontinued benzocaine 0.075 mg/mg oral gel (2 sources) Standardized Chemical Allergen benzocaine (Baby Orajel) 7.5 % oral gel Use 1 application in the mouth or throat 3 (three) times a day as needed for mucositis Active citalopram 20 mg oral tablet (19 sources) Serotonin Reuptake Inhibitor Start: 11-28-2023 take [...] Momma's for breast feeding 27-1 MG tablet (16 sources) Start: 01-14-2024 take 1 tablet by [...] Chronic Conditions associated with dizziness or vertigo (18 sources) Cochlear hydrops of right inner ear; [...] 08-07-2022 Episodic Other aftercare (1 source) 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; 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] Onset: 08-24-2022 Episodic [...] Episodic Other ear and sense organ disorders (18 sources) Asymmetrical sensorineural hearing loss; Translations: [Sensorineural [...] ] Onset: 01-11-2024 Episodic Residual codes; unclassified (16 sources) Gestation period, 29 weeks; Translations: [29 weeks gestation of ] Onset: 02-11-2024 02-11-2024 Episodic Residual codes; unclassified (16 sources) History of placental abruption; Translations: [Personal history of other complications of , childbirth and the puerperium] Onset: 02-11-2024 02-11-2024 Episodic Residual codes; unclassified (16 sources) Noncompliance with medication regimen; Translations: [Non [...] [35 weeks gestation of ] 03-24-2024 Episodic Residual codes; unclassified (2 sources) Gestation period, 36 weeks; Translations: [36 weeks gestation of ] 03-31-2024 Episodic Substance-related disorders (1 source) Nicotine dependence, [...] 01-10-2022 Episodic Diseases of mouth; excluding dental (19 sources) Other lesions of oral mucosa; Translations: [Oropharyngeal lesion] Onset: 02-26-2022 Resolved: 09-23-2022 09-23-2022 Episodic E Codes: Fire/burn (1 source) Contact with other heat and hot substances, initial encounter; Translations: [CONTACT OTH HEAT HOT SUBSTANCE INIT] Onset: 12-13-2021 Episodic Esophageal disorders (19 sources) Gastro-esophageal reflux disease without esophagitis; Translations: [Gastroesophageal reflux disease] Onset: 03-16-2022 Resolved: 09-23-2022 09-23-2022 Chronic Menstrual disorders (20 sources) Amenorrhea, unspecified; Translations: [Missed period] Onset: 08-17-2022 Resolved: 09-23-2022 Chronic Miscellaneous mental health disorders (18 sources) depression; Translations: [ depression] Onset: 09-23-2022 [...] Episodic Other ear and sense organ disorders (18 sources) Bilateral tinnitus; Translations: [Tinnitus, bilateral] Onset: [...] Range Facility Urinalysis macro (dipstick) panel (U)on 03-31-2024 Bilirubin, UA Negative Negative - 4(70) +++ mg/dL [facility] Blood, UA Negative Negative - 50 Maury/mcL [facility] Clarity, UA Clear [facility] re Color, UA Yellow [facility] e Glucose, UA Negative Negative - 1999(110) ++++ mg/dL [facility] Interpretation and review of laboratory results Abnormal [facility] Ketones, UA Negative Negative - 160(16) ++++ mg/dL [facility] Leukocytes, UA Positive Negative - 500+++ Fan/mcL [facility] Nitrite, UA Negative Negative - Positive [facility] pH, UA 7 5 - 9 [facility] e Protein, UA Trace Negative - 1999(20) ++++ mg/dL [facility] Spec Grav, UA 1.025 1 - 1.03 [facility] Urobilinogen, UA 1.0 0.2 - 12 mg/dL [facility] Urinalysis macro (dipstick) panel (U)on 03-24-2024 Bilirubin, UA Positive Negative - 4(70) +++ mg/dL [facility] Comment on above: moderate Blood, UA Negative Negative - 50 Maury/mcL [facility] Clarity, UA Clear [facility] re Color, UA Amanda [facility] Glucose, UA Positive Negative - 1999(110) ++++ mg/dL [facility] Comment on above: 100 Interpretation and review of laboratory results Abnormal [facility] Ketones, UA Positive Negative - 160(16) ++++ mg/dL [facility] Comment on above: 15 Leukocytes, UA Negative Negative - 500+++ Fan/mcL [facility] Nitrite, UA Negative Negative - Positive [facility] pH, UA 6.5 5 - 9 [facility] Protein, UA Positive Negative - 1999(20) ++++ mg/dL [facility] Comment on above: 100 Spec Grav, UA 1.025 1 - 1.03 [facility] Urobilinogen, UA 2.0 0.2 - 12 mg/dL [facility] Referral to [facility] lauren 02-26-2024 [facility] Urinalysis macro (dipstick) panel (U)on 02-11-2024 Bilirubin, UA Negative Negative - 4(70) +++ mg/dL [facility] Blood, UA Negative Negative - 50 Maury/mcL [facility] Clarity, UA Clear [facility] re Color, UA Yellow [facility] Glucose, UA Negative Negative - 1999(110) ++++ mg/dL [facility] Interpretation and review of laboratory results Abnormal [facility] Ketones, UA Negative Negative - 160(16) ++++ mg/dL [facility] Leukocytes, UA Positive Negative - 500+++ Fan/mcL [facility] Nitrite, UA Negative Negative - Positive [facility] pH, UA 7 5 - 9 [facility] Protein, UA Positive Negative - 1999(20) ++++ mg/dL [facility] Spec Grav, UA 1.02 1 - 1.03 [facility] care Urobilinogen, UA 1.0 0.2 - 12 mg/dL [facility] ALL THYROID STIM HORMONEon 1 Interpretation and review of laboratory results Abnormal [facility] TSH Qn 28.537 m[IU]/L [facility] Cytology Cervical or vaginal smear or scraping studyon 11-13-2023 [facility] CNPNon 11-12-2023 CNPN Telephone (RADTSA) AMANDA CORTEZ ([id number]) 1990 F Date Time Provider Department 11/12/23 Arslan GARCIA During your visit today, we recorded the following information about you: Danna Pitts RN 11/12/2023 11:25 AM Signed Spoke to pt. She would like to see endocrinology in [place]. Pt's OB did adjust synthroid recently and has been monitoring labs. TREASURE- please sign pended order. PSS- please arrange visit when order is signed. KAREN Peters, Danna Mcdowell RN Previous Messages ----- Message ----- From: Arslan Garcia MD Sent: 11/02/2023 12:08 PM EDT To: Obi Wade Given what sounds like patient is [...] waiting to hear back from patient. Meryl Shore 12/05/2023 9:12 AM Signed Called left message for Dr Arteaga office to call our office back re: status of this referral. Meryl Shore 12/10/2023 1:[address] Arteaga office spoke with Miguel. Per Miguel she states she called and left patient message on 11/21. As of now their office is waiting to hear back from patient. Meryl Shore 01/09/2024 2:[address] Arteaga [...] [C73] Order(s):CONSULT TO ENDOCRINOLOGY [9007] Order #: [id number]: 1 FUTURE Prescriptions as of 01/09/2024 - [...] Encounter Status:Closed by DANNA PITTS on 11/13/23 [facility] Emelina 07-19-2023 CNPN Telephone (HEMASA) AMANDA CORTEZ ([id number]) 1990 F Date Time Provider Department 07/19/23 EDNA SAL During your visit today, we recorded the following information about you: Edna Sal RN 07/19/2023 10:42 AM Signed Pt called to request labs sent to [facility]. Faxed to central scheduling. Edna Sal [...] Encounter Status:Closed by EDNA SAL on 07/19/23 [facility] Emelina 06-25-2023 CNPN Telephone (RADTSA) AMANDA CORTEZ ([id number]) 1990 F Date Time Provider Department 06/25/23 [...] Peters Angela, KAREN 08/14/2023 2:30 PM Signed TREASUER- please sign pended orders as hers will before she gets here if we are able to reach her to schedule. KAREN Peters Tiffany 08/22/2023 9:25 AM Signed Called patient to schedule appts. Left message for her. Obi Genao 08/23/2023 8:29 AM Signed Patients lab orders were sent to [facility] and I scheduled her a phone [...] (HCC) [C73] Order(s):T4/THYROXIN E [SQT4] Order #: [id number] FUTURE THYROID STIMULATING HORMONE [SQTSH] Order #: [id number] FUTURE THYROGLOBULIN, SERUM WITH REFLEX TO IA OR LC-MS/MS [SQTHYRORF] Order #: [id number] FUTURE Prescriptions as of 08/23/2023 - levothyroxine [...] Encounter Status:Closed by Arslan GARCIA on 08/15/23 [facility] Emelina 02-14-2023 ALEXN Telephone (NCCAP) AMANDA CORTEZ ([id number]) 1990 F Date Time Provider Department 02/14/23 Arslan GARCIA During your visit today, we recorded the following information about you: Obi Genao 02/14/2023 9:54 AM Signed Patient is scheduled for appointments Arslan Garcia MD P Radt [facility] Nurse [place]; Obi Genao 4 months with labs. Orders have been placed in [employer]. Allergies As of Date: 02/14/2023 Noted Allergy Reaction CECLOR (CEFACLOR) 04/11/2022 4 - Hives 12 - Shortness of Breath PENICILLINS 04/11/2022 4 - Hives 12 - Shortness of Breath Date Reviewed: 05/04/2022 Reviewed by: Jerman July - Fully Assessed Reason for Visit: Appointment Confirmation [[id number]] Prescriptions as of 02/14/2023 - levothyroxine (SYNTHROID) [...] Status:Closed by OBI GENAO on 02/14/23 Normal [facility] CBC W Auto Differential pane l (Bld)on 02-01-2023 Basophils (Bld) [#/Vol] 0.04 10*3/uL Normal <0.11 [facility] Comment on above: Order Comment: Speci men Type: BLOOD SPECIMEN Ordering Facility: [facility] Address: [address] [place] [address] Performed By: #### 5 7021-8 #### [facility] CLIA [id number] [address] [place] [address] 57807 Basophils/100 WBC (Bld) 0.5 % Normal [facility] Comment on above: Order Comment: Speci men Type: BLOOD SPECIMEN Ordering Facility: [facility] Address: [address] [place] [address] Performed By: #### 5 7021-8 #### [facility] CLIA [id number] [address] [place] [address] 67845 Differential cell count method Nom (Bld) Auto Normal [facility] Comment on above: Order Comment: Speci men Type: BLOOD SPECIMEN Ordering Facility: [facility] Address: [address] [place] [address] Performed By: #### 5 7021-8 #### [facility] CLIA [id number] [address] [place] [address] 96745 Eosinophils (Bld) [#/Vol] 0.19 10*3/uL Normal <0.46 [facility] Comment on above: Order Comment: Speci men Type: BLOOD SPECIMEN Ordering Facility: [facility] Address: [address] [place] [address] Performed By: #### 5 7021-8 #### [facility] CLIA [id number] [address] [place] [address] 10648 Eosinophils/100 WBC (Bld) 2.5 % Normal [facility] Comment on above: Order Comment: Speci men Type: BLOOD SPECIMEN Ordering Facility: [facility] Address: [address] [place] [address] Performed By: #### 5 7021-8 #### [facility] CLIA [id number] [address] [place] [address] 60778 Erythrocyte distribution width (RBC) [Ratio] 13.3 % Normal 11.5-15.0 [facility] Comment on above: Order Comment: Speci men Type: BLOOD SPECIMEN Ordering Facility: [facility] Address: [address] [place] [address] Performed By: #### 5 7021-8 #### [facility] CLIA [id number] [address] [place] [address] 06384 Hematocrit (Bld) [Volume fraction] 47.7 % High 36.0-46.0 [facility] Comment on above: Order Comment: Speci men Type: BLOOD SPECIMEN Ordering Facility: [facility] Address: [address] [place] [address] Performed By: #### 5 7021-8 #### [facility] CLIA [id number] [address] [place] [address] 38129 Hemoglobin (Bld) [Mass/Vol] 15.6 g/dL High 11.5-15.5 [facility] Comment on above: Order Comment: Speci men Type: BLOOD SPECIMEN Ordering Facility: [facility] Address: [address] [place] [address] Performed By: #### 5 7021-8 #### [facility] CLIA [id number] [address] [place] [address] 56254 Immature granulocytes (Bld) [#/Vol] 0.03 10*3/uL Normal <0.10 [facility] Comment on above: Order Comment: Speci men Type: BLOOD SPECIMEN Ordering Facility: [facility] Address: [address] [place] [address] Performed By: #### 5 7021-8 #### [facility] CLIA [id number] [address] [place] [address] 25646 Immature granulocytes/100 WBC (Bld) 0.4 % Normal [facility] Comment on above: Order Comment: Speci men Type: BLOOD SPECIMEN Ordering Facility: [facility] Address: [address] [place] [address] Performed By: #### 5 7021-8 #### [facility] CLIA [id number] [address] [place] [address] 26557 Lymphocytes (Bld) [#/Vol] 2.30 10*3/uL Normal 1.00-4.00 [facility] Comment on above: Order Comment: Speci men Type: BLOOD SPECIMEN Ordering Facility: [facility] Address: [address] [place] [address] Performed By: #### 5 7021-8 #### [facility] CLIA [id number] [address] [place] [address] 99409 Lymphocytes/100 WBC (Bld) 29.7 % Normal [facility] Comment on above: Order Comment: Speci men Type: BLOOD SPECIMEN Ordering Facility: [facility] Address: [address] [place] [address] Performed By: #### 5 7021-8 #### [facility] CLIA [id number] [address] [place] [address] 62375 MCH (RBC) [Entitic mass] 28.8 pg Normal 26.0-34.0 [facility] Comment on above: Order Comment: Speci men Type: BLOOD SPECIMEN Ordering Facility: [facility] Address: [address] [place] [address] Performed By: #### 5 7021-8 #### [facility] CLIA [id number] [address] [place] [address] 76090 MCHC (RBC) [Mass/Vol] 32.7 g/dL Normal 30.5-36.0 [facility] Comment on above: Order Comment: Speci men Type: BLOOD SPECIMEN Ordering Facility: [facility] Address: [address] [place] [address] Performed By: #### 5 7021-8 #### [facility] CLIA [id number] [address] [place] [address] 37990 MCV (RBC) [Entitic vol] 88.2 fL Normal 80.0-100.0 [facility] Comment on above: Order Comment: Speci men Type: BLOOD SPECIMEN Ordering Facility: [facility] Address: [address] [place] [address] Performed By: #### 5 7021-8 #### [facility] CLIA [id number] [address] [place] [address] 14507 Monocytes (Bld) [#/Vol] 0.49 10*3/uL Normal <0.87 [facility] Comment on above: Order Comment: Speci men Type: BLOOD SPECIMEN Ordering Facility: [facility] Address: [address] [place] [address] Performed By: #### 5 7021-8 #### [facility] CLIA [id number] [address] [place] [address] 63169 Monocytes/100 WBC (Bld) 6.3 % Normal [facility] Comment on above: Order Comment: Speci men Type: BLOOD SPECIMEN Ordering Facility: [facility] Address: [address] [place] [address] Performed By: #### 5 7021-8 #### [facility] CLIA [id number] [address] [place] [address] 15777 Neutrophils (Bld) [#/Vol] 4.70 10*3/uL Normal 1.45-7.50 [facility] Comment on above: Order Comment: Speci men Type: BLOOD SPECIMEN Ordering Facility: [facility] Address: [address] [place] [address] Performed By: #### 5 7021-8 #### [facility] CLIA [id number] [address] [place] [address] 00573 Neutrophils/100 WBC (Bld) 60.6 % Normal [facility] Comment on above: Order Comment: Speci men Type: BLOOD SPECIMEN Ordering Facility: [facility] Address: [address] [place] [address] Performed By: #### 5 7021-8 #### [facility] CLIA [id number] [address] [place] [address] 70470 Nucleated RBC (Bld) [#/Vol] 10*3/uL Normal <0.01 [facility] Comment on above: Order Comment: Speci men Type: BLOOD SPECIMEN Ordering Facility: [facility] Address: [address] [place] [address] Performed By: #### 5 7021-8 #### [facility] CLIA [id number] [address] [place] [address] Nucleated RBC/100 WBC (Bld) [Ratio] 0.0 /100 WBC Normal [facility] Comment on above: Order Comment: Speci men Type: BLOOD SPECIMEN Ordering Facility: [facility] Address: [address] [place] [address] Performed By: #### 5 7021-8 #### [facility] CLIA [id number] [address] [place] [address] 68291 Platelet mean volume (Bld) [Entitic vol] 9.6 fL Normal 9.0-12.7 [facility] Comment on above: Order Comment: Speci men Type: BLOOD SPECIMEN Ordering Facility: [facility] Address: [address] [place] [address] Performed By: #### 5 7021-8 #### [facility] CLIA [id number] [address] [place] [address] 73654 Platelets (Bld) [#/Vol] 248 10*3/uL Normal 150-400 [facility] Comment on above: Order Comment: Speci men Type: BLOOD SPECIMEN Ordering Facility: [facility] Address: [address] [place] [address] Performed By: #### 5 7021-8 #### [facility] CLIA [id number] [address] [place] [address] RBC (Bld) [#/Vol] 5.41 10*6/uL High 3.90-5.20 [facility] Comment on above: Order Comment: Speci men Type: BLOOD SPECIMEN Ordering Facility: [facility] Address: [address] [place] [address] Performed By: #### 5 7021-8 #### [facility] CLIA [id number] [address] [place] [address] 09968 WBC (Bld) [#/Vol] 7.75 10*3/uL Normal 3.70-11.00 [facility] Comment on above: Order Comment: Speci men Type: BLOOD SPECIMEN Ordering Facility: [facility] Address: [address] [place] [address] Performed By: #### 5 7021-8 #### [facility] CLIA [id number] [address] [place] [address] 41951 T3 SerPl-mCncon 02-01-2023 T3 [Mass/Vol] 123 ng/dL Normal 79-165 [facility] Comment on above: Order Comment: Speci men Type: BLOOD SPECIMEN Ordering Facility: [facility] Address: [address] [place] [address] Performed By: #### 3 053-6, 3016-3, 3026-2 #### [facility] CLIA [id number] [address] [place] [address] [place] T4 SerPl-mCncon 02-01-2023 T4 [Mass/Vol] 11.9 ug/dL High 5.5-10.2 [facility] Comment on above: Order Comment: Speci men Type: BLOOD SPECIMEN Ordering Facility: [facility] Address: [address] [place] [address] Performed By: #### 3 053-6, 3016-3, 3026-2 #### [facility] CLIA [id number] [address] [place] [address] [place] THYROGLOBULIN BY MASS SPECTR OMETRYon 02-01-2023 THYROGLOBULIN, LC-MS/MS <0.5 Low 1.3-31.8 [facility] Comment on above: Order Comment: Speci men Type: BLOOD SPECIMEN Ordering Facility: [facility] Address: [address] [place] [address] Result Comment: Results obtained with different test [...] developed and its performance characteristics determined by [employer] [facility]. It has not been cleared or approved by the [place] Food and Drug Administration. This test was performed in a CLIA certified laboratory and is intended for clinical purposes. Performed By: [facility] [address] [place] [address] Dowel Maker: Prem Willis MD, PhD CLIA Number: [id number] Performed By: #### T [facility] #### [facility] CLIA [id number] [address] [place] [address] TSH SerPl-aCncon 02-01-2023 TSH Qn 0.960 m[IU]/L Normal 0.270-4.200 [facility] Comment on above: Order Comment: Speci men Type: BLOOD SPECIMEN Ordering Facility: [facility] Address: [address] [place] [address] Result Comment: If t he patient is , TSH reference range varies by gestational period: First Trimester (weeks 9-12): 0.180-2.990 mIU/L Second Trimester: 0.110-3.980 mIU/L Third Trimester: 0.480-4.710 mIU/L Suman Grfa et al. A Practical Approach for the Verifications and Determination of Site- and Trimester-Specific Reference Intervals for Thyroid Function tests in . Thyroid, 2019:29:3:412-420. Rajesh E, et al. 2017 Guidelines of the [place] [employer] for the Diagnosis and Management of Thyroid Disease during and the . Thyroid, 2017:27:3:315-389. Performed By: #### 3 053-6, 3016-3, 3026-2 #### [facility] CLIA [id number] [address] [place] [address] [place] PREG QUANT HCGon 08-17-2022 HCG QUANT 1 mIU/mL Normal [facility] Comment on above: Performed By: #### P REGQNT #### [facility] [address] [place] [address] Dr. Prashant Kang HCG RANGE SEE BELOW Normal [facility] Comment on above: Result Comment: 5-50 0.2-1 WEEK 50-500 1-2 WEEKS 100-5,000 2-3 WEEKS 500-10,000 3-4 WEEKS 1,000-50,000 4-5 WEEKS 10,000-100,000 5-6 WEEKS 15,000-200,000 6-8 WEEKS 10,000-100,000 2-3 MONTHS Performed By: #### P REGQNT #### [facility] [address] [place] [address] Dr. Prashant Kang PREG QUANT HCGon 07-04-2022 HCG QUANT <1 Normal [facility] Comment on above: Performed By: #### P REGQNT #### [facility] [address] [place] [address] Dr. Prashant Kang HCG RANGE SEE BELOW Normal [facility] Comment on above: Result Comment: 5-50 0.2-1 WEEK 50-500 1-2 WEEKS 100-5,000 2-3 WEEKS 500-10,000 3-4 WEEKS 1,000-50,000 4-5 WEEKS 10,000-100,000 5-6 WEEKS 15,000-200,000 6-8 WEEKS 10,000-100,000 2-3 MONTHS Performed By: #### P REGQNT #### [facility] [address] [place] [address] Dr. Prashant Kang PREG QUANT HCGon 05-16-2022 HCG QUANT <1 Normal [facility] Comment on above: Performed By: #### P TT, PT #### [facility] [address] [place] [address] Dr. Prashant Kang HCG RANGE SEE BELOW Normal [facility] Comment on above: Result Comment: 5-50 0.2-1 WEEK 50-500 1-2 WEEKS 100-5,000 2-3 WEEKS 500-10,000 3-4 WEEKS 1,000-50,000 4-5 WEEKS 10,000-100,000 5-6 WEEKS 15,000-200,000 6-8 WEEKS 10,000-100,000 2-3 MONTHS Performed By: #### P TT, PT #### [facility] [address] [place] [address] Dr. Prashant Kang PREG QUANT HCGon 05-08-2022 HCG QUANT <1 Normal [facility] Comment on above: Performed By: #### P REGQNT #### [facility] [address] [place] [address] Dr. Prashant Kang HCG RANGE SEE BELOW Normal [facility] Comment on above: Result Comment: 5-50 0.2-1 WEEK 50-500 1-2 WEEKS 100-5,000 2-3 WEEKS 500-10,000 3-4 WEEKS 1,000-50,000 4-5 WEEKS 10,000-100,000 5-6 WEEKS 15,000-200,000 6-8 WEEKS 10,000-100,000 2-3 MONTHS Performed By: #### P REGQNT #### [facility] [address] [place] [address] Dr. Prashant Kang CALCIUMon 03-08-2022 Calcium [Mass/Vol] 8.6 mg/dL Normal 8.5-10.1 [facility] Comment on above: Performed By: #### C A #### [facility] [address] [place] [address] Dr. Prashant Kang CALCIUMon 03-07-2022 Calcium [Mass/Vol] 8.4 mg/dL Critically low 8.5-10.1 [facility] Comment on above: Performed By: #### C A #### [facility] [address] [place] [address] Dr. Prashant Kang PREG HCG QUALon 03-07-2022 , QUAL Negative Normal NEGATIVE [facility] Comment on above: Performed By: #### P REG #### [facility] [address] [place] [address] Dr. Prashant Kang [facility]-19 PCR ([facility]on SARS-CoV-2 (COVID-19) RNA DENEEN+probe Ql (Unsp spec) Not detected Normal NOT DETECTED [facility] Comment on above: Result Comment: This test is not yet approved or cleared by the [place] FDA. When there are no FDA-approved or cleared tests available, and other criteria are met, FDA can make tests available under an emergency access mechanism called an Emergency Use Authorization (EUA). The EUA for this test is supported by the [place] of Health and Human Service's (HHS's) declaration [...] SARS-CoV-2. Performed By: #### C VDTBH #### [facility] [address] [place] [address] Dr. Prashant Kang CALCIUMon 02-24-2022 Calcium [Mass/Vol] 8.8 mg/dL Normal 8.5-10.1 [facility] Comment on above: Performed By: #### P TT, PT #### [facility] [address] [place] [address] Dr. Prashant Kang CBC AUTO DIFFon 02-24-2022 BASO # 0.0 103/ul Normal 0.0-0.1 [facility] Comment on above: Performed By: #### P TT, PT #### [facility] [address] [place] [address] Dr. Prashant Kang Basophils/100 WBC (Bld) 0.3 % Normal 0.2-2.0 [facility] Comment on above: Performed By: #### P TT, PT #### [facility] [address] [place] [address] Dr. Prashant Kang EO # 0.1 103/ul Normal 0.0-0.7 [facility] Comment on above: Performed By: #### P TT, PT #### [facility] [address] [place] [address] Dr. Prashant Kang Eosinophils/100 WBC (Bld) 1.5 % Normal 0.9-7.0 [facility] Comment on above: Performed By: #### P TT, PT #### [facility] [address] [place] [address] Dr. Prashant Kang Erythrocyte distribution width (RBC) [Ratio] 13.8 % Normal 11.0-15.0 [facility] Comment on above: Performed By: #### P TT, PT #### [facility] [address] [place] [address] Dr. Prashant Kang Hematocrit (Bld) [Volume fraction] 45.5 % Normal 36.0-48.0 [facility] Comment on above: Performed By: #### P TT, PT #### [facility] [address] [place] [address] Dr. Prashant Kang Hemoglobin (Bld) [Mass/Vol] 14.6 g/dL Normal 12.0-16.0 [facility] Comment on above: Performed By: #### P TT, PT #### [facility] [address] [place] [address] Dr. Prashant Kang IG # 0.02 10e3/ul Normal 0.00-0.03 [facility] Comment on above: Performed By: #### P TT, PT #### [facility] [address] [place] [address] Dr. Prashant Kang IG % 0.3 % Normal 0.0-0.5 [facility] Comment on above: Performed By: #### P TT, PT #### [facility] [address] [place] [address] Dr. Prashant Kang LYMPH # 1.6 103/ul Normal 1.2-3.8 [facility] Comment on above: Performed By: #### P TT, PT #### [facility] [address] [place] [address] Dr. Prashant Kang Lymphocytes/100 WBC (Bld) 23.5 % Normal 20.5-60.0 [facility] Comment on above: Performed By: #### P TT, PT #### [facility] [address] [place] [address] Dr. Prashant Kang MANUAL DIFF REQ NO Normal [facility] Comment on above: Performed By: #### P TT, PT #### [facility] [address] [place] [address] Dr. Prashant Kang MCH (RBC) [Entitic mass] 26.5 pg Critically low 26.7-34.0 [facility] Comment on above: Performed By: #### P TT, PT #### [facility] [address] [place] [address] Dr. Prashant Kang MCHC (RBC) [Mass/Vol] 32.1 g/dL Normal 29.9-35.2 [facility] Comment on above: Performed By: #### P TT, PT #### [facility] [address] [place] [address] Dr. Prashant Kang MCV (RBC) [Entitic vol] 82.7 fL Normal 81.0-99.0 [facility] Comment on above: Performed By: #### P TT, PT #### [facility] [address] [place] [address] Dr. Prashant Kang MONO # 0.5 103/ul Normal 0.3-0.8 [facility] Comment on above: Performed By: #### P TT, PT #### [facility] [address] [place] [address] Dr. Prashant Kang Monocytes/100 WBC (Bld) 7.5 % Normal 1.7-12.0 [facility] Comment on above: Performed By: #### P TT, PT #### [facility] [address] [place] [address] Dr. Prashant Kang NEUT # 4.6 103/ul Normal 1.4-6.5 [facility] Comment on above: Performed By: #### P TT, PT #### [facility] [address] [place] [address] Dr. Prashant Kang Neutrophils/100 WBC (Bld) 66.9 % Normal 43.0-75.0 [facility] Comment on above: Performed By: #### P TT, PT #### [facility] [address] [place] [address] Dr. Prashant Kang Platelet mean volume (Bld) [Entitic vol] 9.9 fL Normal 9.5-13.5 [facility] Comment on above: Performed By: #### P TT, PT #### [facility] [address] [place] [address] Dr. Prashant Kang PLT 239 103/ul Normal 150-450 [facility] Comment on above: Performed By: #### P TT, PT #### [facility] [address] [place] [address] Dr. Prashant Kang RBC 5.50 106/ul Critically high 4.20-5.40 [facility] Comment on above: Performed By: #### P TT, PT #### [facility] [address] [place] [address] Dr. Prashant Kang WBC 6.8 103/ul Normal 4.0-11.0 [facility] Comment on above: Performed By: #### P TT, PT #### [facility] [address] [place] [address] Dr. Prashant Kang MAGNESIUMon 02-24-2022 Magnesium [Mass/Vol] 2.0 mg/dL Normal 1.8-2.4 [facility] Comment on above: Performed By: #### P TT, PT #### [facility] [address] [place] [address] Dr. Prashant Kang PHOSPHORUSon 02-24-2022 Phosphate [Mass/Vol] 3.3 mg/dL Normal 2.6-4.7 [facility] Comment on above: Performed By: #### P TT, PT #### [facility] [address] [place] [address] Dr. Prashant Kang PROTIMEon 02-24-2022 INR Coag (PPP) [Relative time] 1.01 {INR} Normal [facility] Comment on above: Performed By: #### P TT, PT #### [facility] [address] [place] [address] Dr. Prashant Kang INR GUIDELINES SEE BELOW Normal [facility] Comment on above: Result Comment: SALIMA RED INR: 2.0 - 3.0 CONDITIONS NOT LISTED BELOW 2.5 - 3.5 FOR PROSTHETIC HEART VALVE REPLACEMENT 2.5 - 3.5 RECURRENT THROMBOSIS Performed By: #### P TT, PT #### [facility] [address] [place] [address] Dr. Prashant Kang PT Coag (PPP) [Time] 10.9 s Normal 9.0-11.6 [facility] Comment on above: Performed By: #### P TT, PT #### [facility] [address] [place], [place] [id number] Dr. Prashant Kang PTTon 02-24-2022 aPTT Coag (Bld) [Time] 28.9 s Normal 22.3-36.2 [facility] Comment on above: Performed By: #### P TT, PT #### [facility] [address] [place] [address] Dr. Prashant Kang TSHon 02-24-2022 TSH 1.163 uIU/mL Normal 0.358-3.740 [facility] Comment on above: Performed By: #### P TT, PT #### [facility] [address] [place] [address] Dr. Prashant Kang US THYROID FN ASP BXon 02-09 US THYROID FN ASP BX Begin Addendum #1 COLLECTED DATE/TIME: 02/03/2022 11:36 EDT Final Diagnosis Report for [facility] (A/B) THYROID ISTHMUS NODULE, FINE NEEDLE [...] 2. Pathology results are pending. Normal [facility] CT NECK ST W CONon 2 CT [...] SHAILESH EMERY Date: 2022-01-20 13:05 Normal [facility] US THYROIDon 01-20-2022 US THYROID EXAMINATION: US [...] isthmus nodule. Consider fine-needle aspiration TI-RADS: The [employer] TI-RADS committee's white paper recommendations for thyroid lesions classified as TR4 (moderately suspicious) are listed below: > 1.0 cm. Follow-up ultrasound in 1, 2, 3, and 5 years. > 1.5 cm. FNA. J. Am More Radiol 2017;[id number]. Electronically authenticated by: SHAILESH EMERY Date: 2022-01-20 21:46 Normal [facility] CBC AUTO DIFFon 01-08-2022 BASO # 0.0 103/ul Normal 0.0-0.1 [facility] Comment on above: Performed By: #### P TT, PT #### [facility] [address] [place] [address] Dr. Prashant Kang Basophils/100 WBC (Bld) 0.4 % Normal 0.2-2.0 [facility] Comment on above: Performed By: #### P TT, PT #### [facility] [address] [place] [address] Dr. Prashant Kang EO # 0.2 103/ul Normal 0.0-0.7 [facility] Comment on above: Performed By: #### P TT, PT #### [facility] [address] [place] [address] Dr. Prashant Kang Eosinophils/100 WBC (Bld) 3.4 % Normal 0.9-7.0 [facility] Comment on above: Performed By: #### P TT, PT #### [facility] [address] [place] [address] Dr. Prashant Kang Erythrocyte distribution width (RBC) [Ratio] 14.6 % Normal 11.0-15.0 [facility] Comment on above: Performed By: #### P TT, PT #### [facility] [address] [place] [address] [address] Prashant Kang Hematocrit (Bld) [Volume fraction] 42.9 % Normal 36.0-48.0 [facility] Comment on above: Performed By: #### P TT, PT #### [facility] [address] [place] [address] Dr. Prashant Kang Hemoglobin (Bld) [Mass/Vol] 13.4 g/dL Normal 12.0-16.0 [facility] Comment on above: Performed By: #### P TT, PT #### [facility] [address] [place] [address] [address] Prashant Kang IG # 0.02 10e3/ul Normal 0.00-0.03 [facility] Comment on above: Performed By: #### P TT, PT #### [facility] [address] [place] [address] [address] Prashant Kang IG % 0.3 % Normal 0.0-0.5 [facility] Comment on above: Performed By: #### P TT, PT #### [facility] [address] [place] [address] Dr. Prashant Kang LYMPH # 2.0 103/ul Normal 1.2-3.8 [facility] Comment on above: Performed By: #### P TT, PT #### [facility] [address] [place] [address] Dr. Prashant Kang Lymphocytes/100 WBC (Bld) 29.7 % Normal 20.5-60.0 [facility] Comment on above: Performed By: #### P TT, PT #### [facility] [address] [place] [address] Dr. Prashant Kang MANUAL DIFF REQ NO Normal [facility] Comment on above: Performed By: #### P TT, PT #### [facility] [address] [place] [address] [address] Prashant Kang MCH (RBC) [Entitic mass] 26.3 pg Critically low 26.7-34.0 [facility] Comment on above: Performed By: #### P TT, PT #### [facility] [address] [place] [address] [address] Prashant Kang MCHC (RBC) [Mass/Vol] 31.2 g/dL Normal 29.9-35.2 [facility] Comment on above: Performed By: #### P TT, PT #### [facility] [address] [place] [address] Dr. Prashant Kang MCV (RBC) [Entitic vol] 84.1 fL Normal 81.0-99.0 [facility] Comment on above: Performed By: #### P TT, PT #### [facility] [address] [place] [address] Dr. Prashant Kang MONO # 0.6 103/ul Normal 0.3-0.8 [facility] Comment on above: Performed By: #### P TT, PT #### [facility] [address] [place] [address] Dr. Prashant Kang Monocytes/100 WBC (Bld) 8.7 % Normal 1.7-12.0 [facility] Comment on above: Performed By: #### P TT, PT #### [facility] [address] [place] [address] Dr. Prashatn Kang NEUT # 3.9 103/ul Normal 1.4-6.5 [facility] Comment on above: Performed By: #### P TT, PT #### [facility] [address] [place] [address] Dr. Prashant Kang Neutrophils/100 WBC (Bld) 57.5 % Normal 43.0-75.0 [facility] Comment on above: Performed By: #### P TT, PT #### [facility] [address] [place] [address] Dr. Prashant Kang Platelet mean volume (Bld) [Entitic vol] 9.9 fL Normal 9.5-13.5 [facility] Comment on above: Performed By: #### P TT, PT #### [facility] [address] [place] [address] Dr. Prashant Kang PLT 241 103/ul Normal 150-450 [facility] Comment on above: Performed By: #### P TT, PT #### [facility] [address] [place] [address] Dr. Prashant Kang RBC 5.10 106/ul Normal 4.20-5.40 [facility] Comment on above: Performed By: #### P TT, PT #### [facility] [address] [place] [address] Dr. Prashant Kang WBC 6.8 103/ul Normal 4.0-11.0 [facility] Comment on above: Performed By: #### P TT, PT #### [facility] [address] [place] [address] Dr. Prashant Kang GROUP A STREP CULTUREon 12-29 S. pyogenes Ag Ql (Unsp spec) Culture Observations: NEGATIVE FOR GROUP A STREPTOCOCCUS. Normal [facility] Comment on above: Performed By: #### P TT, PT #### [facility] [address] [place] [address] Dr. Prashant Kang PROF 14(COMP METB)on 022 Albumin [Mass/Vol] 3.6 g/dL Normal 3.4-5.0 [facility] Comment on above: Performed By: #### C MP #### [facility] [address] [place] [address] Dr. Prashant Kang Albumin/Globulin [Mass ratio] 0.8 {ratio} Normal [facility] Comment on above: Performed By: #### C MP #### [facility] [address] [place] [address] Dr. Prashant Kang ALP [Catalytic activity/Vol] 74 U/L Normal 46-116 [facility] Comment on above: Performed By: #### C MP #### [facility] [address] [place] [address] Dr. Prashant Kang ALT [Catalytic activity/Vol] 40 U/L Normal 14-59 [facility] Comment on above: Performed By: #### C MP #### [facility] [address] [place] [address] Dr. Prashant Kang Anion gap [Moles/Vol] 14.0 mmol/L Normal [facility] Comment on above: Performed By: #### C MP #### [facility] [address] [place] [address] Dr. Prashant Kang AST [Catalytic activity/Vol] 31 U/L Normal 15-37 [facility] Comment on above: Performed By: #### C MP #### [facility] [address] [place] [address] Dr. Prashant Kang Bilirubin [Mass/Vol] 0.4 mg/dL Normal 0.2-1.0 [facility] Comment on above: Performed By: #### C MP #### [facility] [address] [place] [address] Dr. Prashant Kang Calcium [Mass/Vol] 8.8 mg/dL Normal 8.5-10.1 [facility] Comment on above: Performed By: #### C MP #### [facility] [address] [place] [address] Dr. Prashant Kang Chloride [Moles/Vol] 105 mmol/L Normal 98-107 [facility] Comment on above: Performed By: #### C MP #### [facility] [address] [place] [address] Dr. Prashant Kang CO2 [Moles/Vol] 26.6 mmol/L Normal 21.0-32.0 [facility] Comment on above: Performed By: #### C MP #### [facility] [address] [place] [address] Dr. Prashant Kang Creatinine [Mass/Vol] 0.80 mg/dL Normal 0.55-1.02 [facility] Comment on above: Performed By: #### C MP #### [facility] [address] [place] [address] Dr. Prashant Kang EGFR-AF ZAMBIAN >60 Normal >=60 [facility] Comment on above: Performed By: #### C MP #### [facility] [address] [place] [address] Dr. Prashant Kang EGFR-NON AF ZAMBIAN >60 Normal >=60 [facility] Comment on above: Performed By: #### C MP #### [facility] [address] [place] [address] Dr. Prashant Kang Globulin (S) [Mass/Vol] 4.3 g/dL Normal [facility] Comment on above: Performed By: #### C MP #### [facility] [address] [place] [address] Dr. Prashant Kang Glucose [Mass/Vol] 101 mg/dL Normal 74-106 [facility] Comment on above: Performed By: #### C MP #### [facility] [address] [place] [address] [address] Prashant Kang Potassium [Moles/Vol] 4.6 mmol/L Normal 3.5-5.1 [facility] Comment on above: Performed By: #### C MP #### [facility] [address] [place] [address] [address] Prashant Kang Protein [Mass/Vol] 7.9 g/dL Normal 6.4-8.2 [facility] Comment on above: Performed By: #### C MP #### [facility] [address] [place] [address] [address] Prashant Kang Sodium [Moles/Vol] 141 mmol/L Normal 136-145 [facility] Comment on above: Performed By: #### C MP #### [facility] [address] [place] [address] [address] Prashant Kang Urea nitrogen [Mass/Vol] 11.0 mg/dL Normal 7.0-18.0 [facility] Comment on above: Performed By: #### C MP #### [facility] [address] [place] [address] [address] Prashant Kang Urea nitrogen/Creatinine [Mass ratio] 13.8 mg/mg Normal [facility] Comment on above: Performed By: #### C MP #### [facility] [address] [place] [address] [address] Prashant Kang STREPT SCREENon 01-08-2022 STREP SCREEN A Negative Normal NEGATIVE [facility] Comment on above: Performed By: #### P TT, PT #### [facility] [address] [place] [address] [address] Prashant Kang XR NECK SOFT TISSUEon [...] MIKE BARNETT Date: 2022-01-08 04:43 Normal [facility] Cov[facility]-19 PCR ([facility])on SARS-CoV-2 (COVID-19) RNA DENEEN+probe Ql (Unsp spec) Not detected Normal NOT DETECTED [facility] Comment on above: Result Comment: This test is not yet approved or cleared by the [place] FDA. When there are no FDA-approved or cleared tests available, and other criteria are met, FDA can make tests available under an emergency access mechanism called an Emergency Use Authorization (EUA). The EUA for this test is supported by the [place] of Health and Human Service's (HHS's) declaration [...] Performed By: #### P TT, PT #### [facility] [address] [place] [address] Dr. Prashant Kang Vital Signs Date Time Vital Sign Value Performing Clinician Donta coleman 03-31-2024 13:44-0500 Body mass index (BMI) [Ratio] 40.75 kg/m2 [employer] Work Phone: [facility] 03-31-2024 13:44-0500 Body weight 101.06 kg [employer] Work Phone: [facility] 03-31-2024 13:44-0500 Diastolic blood pressure 70 mm[Hg] [employer] Work Phone: [facility] 03-31-2024 13:44-0500 Systolic blood pressure 120 mm[Hg] Acosta Shania DO Work Phone: [facility] 03-24-2024 13:16-0500 Body mass index (BMI) [Ratio] 40.02 kg/m2 Acosta Shania DO Work Phone: [facility] 03-24-2024 13:16-0500 Body weight 99.25 kg Acosta Shania DO Work Phone: [facility] 03-24-2024 13:16-0500 Diastolic blood pressure 70 mm[Hg] Acosta Shania DO Work Phone: [facility] 03-24-2024 13:16-0500 Systolic blood pressure 120 mm[Hg] Acosta Shania DO Work Phone: [facility] 03-10-2024 13:45-0500 Body mass index (BMI) [Ratio] 40.38 kg/m2 Acosta Shania DO Work Phone: [facility] 03-10-2024 13:45-0500 Body weight 100.15 kg Acosta Shania DO Work Phone: [facility] 03-10-2024 13:45-0500 Diastolic blood pressure 76 mm[Hg] Acosta Shania DO Work Phone: [facility] 03-10-2024 13:45-0500 Systolic blood pressure 114 mm[Hg] Acosta Shania DO Work Phone: [facility] 02-25-2024 14:08-0400 Body mass index (BMI) [Ratio] 39.87 kg/m2 Kim YAO Work Phone: [facility] 02-25-2024 14:08-0400 Body weight 98.88 kg Kim YAO Work Phone: [facility] 02-25-2024 14:08-0400 Diastolic blood pressure 70 mm[Hg] Kim YAO Work Phone: [facility] 02-25-2024 14:08-0400 Systolic blood pressure 114 mm[Hg] Kim YAO Work Phone: [facility] 02-11-2024 11:10-0400 Body mass index (BMI) [Ratio] 40.2 kg/m2 Acosta Shania DO Work Phone: [facility] 02-11-2024 11:10-0400 Body weight 99.7 kg Acosta Shania DO Work Phone: [facility] 02-11-2024 11:10-0400 Diastolic blood pressure 64 mm[Hg] Acosta Shania DO Work Phone: [facility] 02-11-2024 11:10-0400 Systolic blood pressure 112 mm[Hg] Acosta Shania DO Work Phone: [facility] 06-12-2023 13:54-0500 Body mass index (BMI) [Ratio] 40.6 kg/m2 Acosta Shania DO Work Phone: [facility] 06-12-2023 13:54-0500 Body weight 100.7 kg Acosta Shania DO Work Phone: [facility] 06-12-2023 13:54-0500 Diastolic blood pressure 74 mm[Hg] Acosta Shania DO Work Phone: [facility] 06-12-2023 13:54-0500 Systolic blood pressure 118 mm[Hg] Acosta Shania DO Work Phone: [facility] 05-04-2022 09:40-0500 Body temperature 97.2 [degF] JONNY Garcia MD Work Phone: [facility] 05-04-2022 09:40-0500 Body weight 88.81 kg JONNY Garcia MD Work Phone: [facility] 05-04-2022 09:40-0500 Diastolic blood pressure 73 mm[Hg] JONNY Garcia MD Work Phone: [facility] 05-04-2022 09:40-0500 Heart rate 67 /min JONNY Garcia MD Work Phone: [facility] 05-04-2022 09:40-0500 Respiratory rate 16 /min JONNY Garcia MD Work Phone: [facility] 05-04-2022 09:40-0500 SaO2% (BldA) [Mass fraction] 100 % JONNY Garcia MD Work Phone: [facility] 05-04-2022 09:40-0500 Systolic blood pressure 113 mm[Hg] JONNY Garcia MD Work Phone: [facility] Encounters Encounter Date Encounter Type Care Provider Facility Start: 03-31-2024 End: 03-31-2024 Bamboo flowsheet Acosta Shania DO Work Phone: [facility] Start: 03-31-2024 End: 03-31-2024 Bamboo flowsheet Acosta Shania DO Work Phone: [facility] Start: 03-31-2024 End: 03-31-2024 Office outpatient visit 15 minutes Acosta Hsania DO Work Phone: [facility] Comment on above: 36 weeks gestation o f ; Third trimester Start: 03-31-2024 End: 03-31-2024 ambulatory ACOSTA SHANIA Not Available Start: 03-24-2024 End: 03-24-2024 Bamboo flowsheet Acosta [...] Start: 02-26-2024 End: 02-26-2024 Patient encounter procedure [facility] Comment on above: 24 weeks gestation o f ; Food insecurity Start: 02-25-2024 End: 02-25-2024 Bamboo flowsheet Kim YAO Work Phone: [facility] Start: 02-25-2024 End: 02-25-2024 Bamboo flowsheet Kim YAO Work Phone: [facility] Start: 02-25-2024 End: 02-25-2024 Office outpatient visit 15 minutes Kim YAO Work Phone: [facility] Comment on above: Third [...] 01-11-2024 End: 01-11-2024 ambulatory ACOSTA R SHANIA [facility] Start: 12-17-2023 End: 12-17-2023 ambulatory ACOSTA SHANIA [...] minutes Acosta Jauregui DO Work Phone: [facility] Comment on above: Missed menses; Amenorrhea Start: 06-12-2023 End: 06-12-2023 ambulatory ACOSTA JAUREGUI Not Available Start: 02-14-2023 Telephone encounter Arslan Garcia MD Work Phone: [facility] Comment on above: Appointment Confirma tion Start: 02-08-2023 End: 02-08-2023 ambulatory SARA MEDELLIN Facility:[facility] Start: 02-01-2023 End: 02-01-2023 ambulatory SARA MEDELLIN Facility:[facility] Start: 11-09-2022 Telephone encounter [facility]slan Garcia [facility] Comment on above: Appointment Confirma [...] Patient encounter procedure [facility]cf Provider [facility] Department Start: 04-11-2022 End: 04-11-2022 Patient encounter procedure Lab/[place] Zhao Work Phone: Radiation Oncology Comment on above: Thyroid cancer (HCC) (Primary Dx) Start: 03-09-2022 Encounter for preprocedural laboratory examination DR CHARLIE EASTMAN [facility] Start: 03-07-2022 End: 03-08-[address] [...] Date Procedure Procedure Detail Performing Clinician Start: 03-31-2024 Urnls dip stick/tabl et rgnt non-auto w/o micrscp Acosta Shania DO Work Phone: Start: 03-24-2024 Urnls dip stick/tabl et rgnt non-auto w/o micrscp Acosta Shania DO Work Phone: Start: 02-26-2024 AMB REFERRAL TO [facility] Yfn Michelle MD Work Phone: Start: 02-11-2024 Urnls dip stick/tabl et rgnt non-auto w/o micrscp Acosta Shania DO Work Phone: Start: 02-08-2024 ALL THYROID STIM HORMONE Acosta Jauregui DO Work Phone: Start: 11-13-2023 Cytp cerv/vag auto t hin layer prep mnl screen Acosta Legero DO Work Phone: Plan of Treatment Date Care Activity Detail Author Start: 01-10-2025 Adult BMI Screening Adult BMI Screen ing [facility] Start: 01-10-2025 Tobacco Screening Tobacco Screening [facility] Start: 05-12-2024 End: 05-12-2024 ambulatory 05/12/2024 1:40 PM EST Visit [facility] [address] [place] [id number] Acosta Jauregui, DO [address] [place], [place] [id number] [facility] Start: 04-14-2024 End: 04-14-2024 Patient encounter procedure 04/14/2024 1:20 PM EST Routine [facility] [address] [place] [address] Acosta Jauregui, DO [address] [place], [place] [id number] [facility] Start: 03-31-2024 End: 03-31-2025 Strep B DNA probe, amplification Strep B DNA probe, amplification Lab Routine Third trimester Expected: 03/31/2024 (Approximate), Expires: 03/31/2025 [facility] Work Phone: Comment on above: Expected: 03/31/2024 (Approximate), Expires: 03/31/2025 Start: 03-31-2024 End: 03-31-2024 Patient encounter procedure [facility] Comment on above: Arrived Start: 03-24-2024 End: 03-24-2024 Patient encounter procedure 03/24/2024 1:00 PM EST Routine [facility] [address] [place] [address] Acosta Jauregui, DO [address] [place] [address] [facility] Start: 03-10-2024 End: 03-10-2024 Patient encounter procedure 03/10/2024 1:00 PM EST Routine [facility] [address] [place] [id number] Acosta Jauregui, DO [address] [facility] [place] [address] [facility] Start: 02-25-2024 End: 02-24-2025 US biophysical profile w non stress test US biophysical profile w non stress test Imaging Routine Thyroid disease (CMS/HCC) Expected: 02/25/2024 (Approximate), Expires: 02/24/2025 [facility] Work Phone: Comment on above: Expected: 02/25/2024 (Approximate), Expires: 02/24/2025 Start: 02-25-2024 End: 02-25-2024 Patient encounter procedure [facility] Comment on above: Arrived Start: 02-11-2024 End: 02-10-2025 US biophysical profile w non stress test US biophysical profile w non stress test Imaging Routine Thyroid disease (CMS/HCC) 29 weeks gestation of History of placental abruption Expected: 02/11/2024 (Approximate), Expires: 02/10/2025 [facility] Work Phone: Comment on above: Expected: 02/11/2024 (Approximate), Expires: 02/10/2025 Start: 02-11-2024 End: 02-10-2025 US for US OB SCAN FOR GROWTH Imaging Routine Thyroid disease (CMS/HCC) 29 weeks gestation of History of placental abruption Expected: 02/11/2024 (Approximate), Expires: 02/10/2025 [facility] Comment on above: Expected: 02/11/2024 (Approximate), Expires: 02/10/2025 Start: 02-11-2024 End: 02-11-2024 Patient encounter procedure [facility] Comment on above: Arrived Start: 12-30-2023 Covid-19 Vaccine ( season) Covid-19 Vaccine ( season) [facility] Start: 12-30-2023 Influenza vaccination [facility] Start: 08-15-2023 End: 11-14-2023 Thyroglobulin and Thyrogobulin Ab panel - Serum or Plasma THYROGLOBULIN, SERUM WITH REFLEX TO IA OR LC-MS/MS Lab Routine Thyroid cancer (HCC) Expected: 08/15/2023, Expires: 11/14/2023 [facility] Work Phone: Comment on above: Expected: 08/15/2023 , Expires: 11/14/2023 Start: 08-15-2023 End: 11-14-2023 Thyrotropin [Units/volume] in Serum or Plasma THYROID STIMULATING HORMONE Lab Routine Thyroid cancer (HCC) Expected: 08/15/2023, Expires: 11/14/2023 [facility] Work Phone: Comment on above: Expected: 08/15/2023 , Expires: 11/14/2023 Start: 08-15-2023 End: 11-14-2023 Thyroxine (T4) [Mass/volume] in Serum or Plasma T4/THYROXINE Lab Routine Thyroid cancer (HCC) Expected: 08/15/2023, Expires: 11/14/2023 [facility] Work Phone: Comment on above: Expected: 08/15/2023 , Expires: 11/14/2023 Start: 06-26-2023 End: 06-26-2023 Professional / ancillary services management 06/26/2023 1:00 PM EST Ancillary Procedure [facility] [address] [place] [address] [facility] Start: 06-12-2023 End: 06-12-2024 US for US PELVIS-TRANSVAG IF INDICATED Imaging Routine Amenorrhea Expected: 06/12/2023 (Approximate), Expires: 06/12/2024 [facility] Comment on above: Expected: 06/12/2023 (Approximate), Expires: 06/12/2024 Start: 04-30-2023 Behavioral Health Screening Behavioral Health Screening [facility] Start: 04-30-2023 Depression [facility] Start: 12-29-2022 Covid-19 Vaccine () Covid-19 Vaccine () [facility] Start: 12-29-2022 Influenza vaccination [facility] Start: 07-02-2022 End: 09-01-2022 THYROGLOBULIN BY MASS SPECTROMETRY THYROGLOBULIN BY MASS SPECTROMETRY Lab Routine Thyroid cancer (HCC) Expected: 07/02/2022, Expires: 09/01/2022 [facility] Work Phone: Comment on above: Expected: 07/02/2022 , Expires: 09/01/2022 Start: 07-02-2022 End: 09-01-2022 Thyrotropin [Units/volume] in Serum or Plasma TSH BLD Lab Routine Thyroid cancer ([facility]) Expected: 07/02/2022, Expires: 09/01/2022 [facility] Work Phone: Comment on above: Expected: 07/02/2022 , Expires: 09/01/2022 Start: 07-02-2022 End: 09-01-2022 Thyroxine (T4) [Mass/volume] in Serum or Plasma T4/THYROXINE BLOOD Lab Routine Thyroid cancer ([facility]) Expected: 07/02/2022, Expires: 09/01/2022 [facility] Work Phone: Comment on above: Expected: 07/02/2022 , Expires: 09/01/2022 Start: 04-30-2022 DEPRESSION ASSESSMENT [facility] Start: 2022 HPV TESTING HPV TESTING [facility] Start: 2022 Screening for malign ant neoplasm of cervix HPV Testing [facility] Start: 12-29-2021 Influenza vaccination INFLUENZA (#1) [facility] Start: 04-30-2021 DEPRESSION ASSESSMENT [facility]PRESSION [facility] Start: 2013 PAP TESTING PAP TESTING [facility] Start: 2013 Screening for malign ant neoplasm of cervix [facility] Start: 2011 DTaP,Tdap and Td Vaccines (1 - Tdap) DTaP,Tdap and Td Vaccines (1 - Tdap) [facility] Start: 2011 Hepatitis B Vaccine (1 of 3 - 19+ 3-dose series) Hepatitis B Vaccine (1 of 3 - 19+ 3-dose series) [facility] Start: 2011 Urine microalbumin profile [facility] Start: 2010 Adult BMI Follow Up Plan Adult BMI Follow Up Plan [facility] Start: 2010 Anxiety Screening Anxiety Screening [facility] Start: 2010 Depression Screening Depression Scre [facility] Start: 2010 HEPATITIS C SCREENING HEPATITIS C [facility] Start: 2010 Hepatitis C screening Hepatitis C [facility] Start: 2010 HIV SCREENING HIV SCREENING [facility] Start: 2010 HIV screening HIV Screening [facility] Start: 2004 Depression Screening Depression Scre [facility] Start: 1998 PNEUMOCOCCAL (1 - PCV) PNEUMOCOCCAL (1 - PCV) [facility] Start: 1998 Pneumococcal vaccination [facility] Start: 1992 COVID-19 VACCINE (#1) COVID-19 VACCI NE (#1) [facility] Start: 1992 HEPATITIS B (1 of 3 - 3-dose series) HEPATITIS B (1 of 3 - 3-dose series) [facility] Start: 1992 Hepatitis B Vaccine (1 of 3 - 3-dose series) Hepatitis B Vaccine (1 of 3 - 3-dose series) [facility] Start: 1992 Tobacco Counseling Tobacco Counselin g [facility] CBC W Auto Different ial panel - Blood CBC and differential Lab Routine Amenorrhea Ordered: 06/12/2023 [facility] Comment on above: Ordered: 06/12/2023 hCG, quantitative, hCG, quantitative, Lab Routine Amenorrhea Ordered: 06/12/2023 [facility] Comment on above: Ordered: 06/12/2023 Hemoglobin A1c measurement Hemoglobin A1c Lab Routine Amenorrhea Ordered: 06/12/2023 [facility] Comment on above: Ordered: 06/12/2023 Prolactin Prolactin Lab Ro utine Amenorrhea Ordered: 06/12/2023 [facility] Comment on above: Ordered: 06/12/2023 Thyrotropin [Units/volume] in Serum or Plasma TSH Lab Routine Amenorrhea Ordered: 06/12/2023 [facility] Work Phone: Comment on above: Ordered: 06/12/2023 [facility] Payers Date Payer Category Payer Medicaid HMO [employer] [id number] 2020 Medicaid [id number] 2020 Medicaid (Managed Care) [employer] [id number] 1992 Unknown [id number] 2.16.840.1.458390.3.579.2. 593 1992 Unknown [id number] 2.16.840.1.319525.3.579.2. 593 1992 Unknown [id number] 2.16.840.1.415762.3.579.2. 593 1992 Unknown [id number] 2.16.840.1.145314.3.579.2. 593 1992 Unknown [id number] 2.16.840.1.115237.3.579.2. 593 1992 Unknown [id number] 2.16.840.1.993378.3.579.2. 593 1992 Unknown [id number] 2.16.840.1.893720.3.579.2. 593 1992 Unknown [id number] 2.16.840.1.570393.3.579.2. 593 1992 Unknown [id number] 2.16.840.1.290913.3.579.2. 593 1992 Unknown [id number] 2.16.840.1.058565.3.579.2. 593 1992 Unknown [id number] 2.16.840.1.430283.3.579.2. 593 1992 Unknown [id number] 2.16.840.1.430257.3.579.2. 593 1992 Unknown [id number] 2.16.840.1.865501.3.579.2. 593 1992 Unknown [id number] 2.16.840.1.913182.3.579.2. 593 1992 Unknown [id number] 2.16.840.1.932411.3.579.2. 593 1992 Unknown [id number] 2.16.840.1.774210.3.579.2. 1286 1992 Unknown [id number] 2.16.840.1.861503.3.579.2. 1286 1992 Unknown [id number] 2.16.840.1.391602.3.579.2. 9 1992 Unknown [id number] 2.16.840.1.812638.3.579.2. 9 1992 Unknown [id number] 2.16.840.1.160645.3.579.2. 9 1992 Unknown [id number] 2.16.840.1.100160.3.579.2. 1258 1992 Unknown [id number] 2.16.840.1.274061.3.579.2. 9 1992 Unknown [id number] 2.16.840.1.325915.3.579.2. 1258 1992 Unknown [id number] 2.16.840.1.360611.3.579.2. 9 1992 Unknown [id number] 2.16.840.1.249180.3.579.2. 9 1992 Unknown [id number] 2.16.840.1.905763.3.579.2. 9 1992 Unknown [id number] 2.16.840.1.072310.3.579.2. 9 1992 Unknown [id number] 2.16.840.1.891083.3.579.2. 1259 1959 Unknown [id number] Social History Date Type Detail Facility Start: 04-11-2022 End: 09-23-2022 Tobacco smoking status RIIS Smokes tobacco daily [facility] History of tobacco use [facility] Start: 04-11-2022 End: 09-14-2023 Cigarettes smoked current (pack per day) - Reported 1 [facility] Start: 04-11-2022 End: 09-23-2022 Tobacco use and exposure Smokeless tobacco non-user [facility] Start: 04-11-2022 End: 03-31-2024 Alcohol intake Current drinker of alcohol (finding) [facility] Start: 04-11-2022 Alcohol Comment socially [facility] Start: 1992 Sex Assigned At Not on file [facility] Start: 05-04-2022 End: 09-14-2023 Tobacco use panel [facility] Adult Depression Screening Assessment 0 [facility] Start: 10-03-2022 Alcohol Comment caffeine intak e: 1-2 cups per day [facility] Start: 1990 Sex Assigned At Female [facility] Start: 10-04-2022 Gender identity Identifies as female gender (finding) [facility] Start: 08-06-2023 [facility] Start: 01-11-2024 Alcoholic beverage intake Ex-drinker (finding) [facility] Start: 08-26-2018 Sex Female (finding) [facility] Clinical Notes 03-07-2022 to 03-31-2024 Kerline Clement, [facility] - 03/31/2024 1:30 PM ESTSusan Spitler, [facility] - 03/24/2024 1:00 PM ESTSusan Spitler, [facility] - 03/10/2024 1:00 PM Delvis Matthews - 02/26/2024 2:14 PM EDT Note Date & Type Note Facility 03-31-2024 History of Present illness Narrative Reason for Appointment: Patient ID: Amanda Cortez is a 34 y.o. female who presents for Routine Visit Patient presents today for Return OB appointment. MEDICATIONS Current Outpatient Medications Medication Instructions aspirin 81 mg, Oral, Daily benzocaine (Baby Orajel) 7.5 % oral gel 1 application , 3 times daily PRN citalopram (CELEXA) 20 mg, Oral, Every morning [...] Constitutional: Appearance: Normal appearance. She is well-developed. Genitourinary: Vulva normal. Cardiovascular: Rate and Rhythm: Normal rate and [...] nursing note reviewed. Exam conducted with a giver present. Vitals: Estimated body mass index is 40.75 kg/m as calculated from the following: Height as of 01/03/23: 5' 2 . Weight as of this encounter: 222 lb 12.8 oz. BP: 120/70 Patient's last menstrual period was 06/11/2023. ASSESSMENT & PLAN ICD-10-CM 1. 36 weeks gestation of Z3A.36 POCT urinalysis dipstick manually resulted 2. Third trimester Z34.93 POCT urinalysis dipstick manually resulted Strep B DNA probe, amplification Strep B DNA probe, amplification Patient is doing well but has complaints of being tired and having maternal discomfort due to . Patient verbalized frequent movement and was instructed to perform kick counts three times per day. labor precautions were given, LARC consent was signed/declined, and GBS was obtained. Cervical check was performed and patient is 1 cm dilated. Orders Placed This Encounter Procedures Strep B DNA probe, amplification POCT urinalysis dipstick manually resulted Follow Up: Patient is to return to office in 1 week for routine OB appointment Documented by Kerline Clement LPN on behalf of: Acosta Jauregui DO documented in this encounter [facility] 03-24-2024 History of Present illness Narrative Reason [...] nursing note reviewed. Exam conducted with a giver present. Vitals: Estimated body mass index is [...] Acosta Jauregui DO documented in this encounter [facility] 03-10-2024 History of Present illness Narrative Reason [...] nursing note reviewed. Exam conducted with a giver present. Vitals: Estimated body mass index is [...] 2 weeks. Patient will continue NST/BPP at [facility] as well. Documented by Sylvia Rader LPN on behalf of: Acosta Jauregui DO documented in this encounter [facility] 02-26-2024 History of Present illness Narrative [facility] Patient visited the Food Clinic and received food documented in this encounter [facility] 02-25-2024 History of Present illness Narrative [...] Problems Diagnosis Date Noted Papillary thyroid carcinoma ([facility]) 09/23/2022 Thyroid disease ([facility]) 09/23/2022 Bilateral tinnitus 10/04/2022 Asymmetric SNHL (sensorineural [...] weeks gestation of Z3A.31 3. Thyroid disease (CMS/[facility]) E07.9 US biophysical profile w non stress [...] of: MAXIMILIAN Lombardo documented in this encounter [facility] 02-11-2024 History of Present illness Narrative [...] nursing note reviewed. Exam conducted with a giver present. Vitals: Estimated body mass index is [...] Acosta Jauregui DO documented in this encounter [facility] 01-24-2024 Telephone encounter Note I notified Amanda of Dr. Garcia's response. She will call after she delivers in March 2024 to scheduled follow up. Irais Turpin RN [facility] 01-24-2024 Miscellaneous Notes I notified Amanda of Dr. Garcia's response. She will call after she delivers in March 2024 to scheduled follow up. Irais Turpin RN Amadna called stating she is currently and is being followed very closely by [employer] OPERATIONS MANAGER in [place] and her local SECURITY OPERATIONS MANAGER. She states her high risk is d/t [...] Irais Turpin RN documented in this encounter [facility] 01-23-2024 Telephone encounter Note Amanda called stating she is currently and is being followed very closely by SECURITY OPERATIONS MANAGER in [place] and her local SECURITY OPERATIONS MANAGER. She states her high risk is d/t [...] possible lab work? Thanks Irais Turpin RN [facility] 11-13-[address] Christine office received ref and they will be calling patient to schedule appointment. Records faxed to Dr. Arteaga. Lawanda [facility] your box Images from the original note were not included. Spoke to pt. She would like to see endocrinology in [place]. Pt's OB did adjust synthroid recently and has been monitoring labs. TREASURE- please sign pended order. PSS- please arrange visit when order is signed. KAREN Peters Tiffany Weyer, Angela, RN Previous Messages ----- Message ----- From: Arslan Garcia MD Sent: 11/02/2023 12:08 PM EDT To: Obi Dunlap; [facility] Given what sounds like patient is in first trimester and ongoing concerns of breast-feeding recommend she follow-up with endocrinology. documented in this encounter [facility] 11-13-[address] Christine office received ref and they will be calling patient to schedule appointment. [facility] 11-12-2023 Telephone encounter Note Records faxed to Dr. Arteaga. [facility] 11-12-2023 Telephone encounter Note [facility] 11-12-2023 Telephone encounter Note Images from the original note were not included. Spoke to pt. She would like to see endocrinology in [place]. Pt's OB did adjust synthroid recently and has been monitoring labs. TREASURE- please sign pended order. PSS- please arrange visit when order is signed. KAREN Peters, Danna Mcdowell RN Previous Messages ----- Message ----- From: Arslan Garcia MD Sent: 11/02/2023 12:08 PM EDT To: Obi Nunez [facility] Given what sounds like patient is in first trimester and ongoing concerns of breast-feeding recommend she follow-up with endocrinology. [facility] 10-24-2023 Note HNO ID: [id number] Author: Arslan GARCIA MD Service: ? Author Type: Physician Type: Progress Notes Filed: 11/02/2023 12:08 Note Text: Unable to reach patient. [facility] 10-24-2023 History of Present illness Narrative Unable to reach patient. documented in this encounter [facility] 08-14-2023 Miscellaneous Notes TREASURE- please sign [...] RN documented in this encounter [facility] 07-19-2023 Miscellaneous Notes Pt called to request labs sent to [facility]. Faxed to central scheduling. Edna Sal RN documented in this encounter [facility] 06-12-2023 History of Present illness Narrative [...] Amenorrhea 09/23/2022 Lesion of palate 09/23/2022 depression ([facility]) 09/23/2022 Thyroid mass ([facility]/HCC) 09/23/2022 Vaginal delivery 09/23/2022 Past Medical History: Diagnosis Date Chronic maxillary sinusitis Diarrhea Ear problems Family planning Fatigue Fibroadenoma of breast, right Foreign body sensation in throat History of miscarriage LPRD (laryngopharyngeal reflux disease) Obesity Papilloma of palate PCOS (polycystic ovarian syndrome) Thyroid nodule ([facility]) Family History Problem Relation Name Age of [...] Acosta Jauregui DO documented in this encounter [facility] 02-14-2023 Miscellaneous Notes Images from the original note were not included. Patient is scheduled for appointments Arslan Garcia MD [facility]; Obi Genao 4 months with labs. Orders have been placed in epic. documented in this encounter [facility] 02-08-2023 Note HNO ID: [id number] Author: Arslan Garcia MD Service: ? Author [...] Time Spent: 6 minutes Arslan Garcia MD [facility] 11-09-2022 Miscellaneous Notes Images from the original note were not included. Patient is called and scheduled. Arslan Garcia MD [facility] Nurse [place]; Obi Genao 8 weeks with labs, orders placed, thank you documented in this encounter [facility] 07-17-2022 Miscellaneous Notes Appointment has been changed to phone appt. Tj Funez Pt called in requesting to be switched to a phone visit tomorrow. Her kids are on spring and a couple of them are sick. Labs have been done and resulted. PSS- please change to phone visit for tomorrow. Danna Pitts, KAREN documented in this encounter [facility] 05-04-2022 History of Present illness Narrative Radiation Oncology - FollowupNote PATIENT NAME: Amanda Cortez PATIENT : 1990 DIAGNOSIS: Thyroid cancer, classic papillary thyroid carcinoma, status post total thyroidectomy and right neck exploration on 03/07/2022, stage I [id number]. HPI: Patient returns after further work-up and [...] and right neck exploration on 03/07/2022, stage [id number]. Patient does have significant thyroglobulin antibody however [...] encounter. documented in this encounter [facility] 04-25-2022 Miscellaneous Notes Patient had been rescheduled. Tj Funez Images from the original note were not included. Called patient to reschedule, MANJU. Tj Garcia MD [facility] Nurse [place]; Tj Funez Unable to reach please reschedule documented in this encounter [facility] 04-11-2022 [...] RN documented in this encounter [facility] 03-07-2022 Note OPERATIVE NOTE OPERATION DATE: [...] the recovery room in good condition. [facility] Evaluation note Diagnosis Thyroid cancer (HCC)- Primary Malignant neoplasm of thyroid gland [facility] Diagnosis Thyroid cancer (HCC)- Primary Malignant neoplasm of thyroid gland [facility] Diagnosis Missed menses Amenorrhea Absence of menstruation documented [facility] Diagnosis Thyroid cancer (HCC)- Primary Malignant neoplasm of thyroid gland [facility] Diagnosis Thyroid cancer (HCC)- Primary Malignant neoplasm of thyroid gland [facility] Diagnosis Thyroid cancer (HCC)- Primary Malignant neoplasm of thyroid gland [facility] Diagnosis Third trimester state, incidental Thyroid disease (CMS/HCC) Unspecified disorder of thyroid 29 weeks gestation of History of placental abruption Non compliance w medication regimen documented in this encounter [facility]* Diagnosis Third trimester state, incidental 31 weeks gestation of Thyroid disease (CMS/HCC) Unspecified disorder of thyroid documented [facility]* Diagnosis 24 weeks gestation of Food insecurity [facility] Diagnosis Third trimester state, incidental 33 weeks gestation of Thyroid disease (CMS/HCC) Unspecified disorder of thyroid documented in [facility]* Diagnosis 35 weeks gestation of Third trimester state, incidental documented in this encounter [facility]* Diagnosis 36 weeks gestation of Third trimester state, incidental documented in this encounter [facility]Not on filedocumented [facility] Purpose Family History No [...] cancer (HCC) Procedures CONSULT TO ENDOCRINOLOGY OFFICE/OUTPATIENT [facility] 60 MINUTES Arslan Garcia MD [address] [place] [address] [place] [address] Referral ID Status Reason Start Date Expiration Date Visits Requested Visits Authorized [id number] Authorized PCP Requested Referral 11/12/2023 11/11/2024 1 1 Additional Source Comments Source Comments (unrecognize d section and content) In the event this informatio n is protected by the Federal Confidentiality of Alcohol and Drug Abuse Patient Records regulations: The Federal rules restrict any use of the information to criminally investigate or prosecute any alcohol or drug abuse patient.[facility] the event this information is protected by the Federal Confidentiality of Alcohol and Drug Abuse Patient Records regulations: The Federal rules restrict any use of the information to criminally investigate or prosecute any alcohol or drug abuse patient.[facility] the event this information is protected by the Federal Confidentiality of Alcohol and Drug Abuse Patient Records regulations: The Federal rules restrict any use of the information to criminally investigate or prosecute any alcohol or drug abuse patient.[facility] the event this information is protected by the Federal Confidentiality of Alcohol and Drug Abuse Patient Records regulations: The Federal rules restrict any use of the information to criminally investigate or prosecute any alcohol or drug abuse patient.[facility] the event this information is protected by the Federal Confidentiality of Alcohol and Drug Abuse Patient Records regulations: The Federal rules restrict any use of the information to criminally investigate or prosecute any alcohol or drug abuse patient.[facility] the event this information is protected by the Federal Confidentiality of Alcohol and Drug Abuse Patient Records regulations: The Federal rules restrict any use of the information to criminally investigate or prosecute any alcohol or drug abuse patient.[facility] the event this information is protected by the Federal Confidentiality of Alcohol and Drug Abuse Patient Records regulations: The Federal rules restrict any use of the information to criminally investigate or prosecute any alcohol or drug abuse patient.[facility] the event this information is protected by the Federal Confidentiality of Alcohol and Drug Abuse Patient Records regulations: The Federal rules restrict any use of the information to criminally investigate or prosecute any alcohol or drug abuse patient.[facility] the event this information is protected by the Federal Confidentiality of Alcohol and Drug Abuse Patient Records regulations: The Federal rules restrict any use of the information to criminally investigate or prosecute any alcohol or drug abuse patient.[facility] the event this information is protected by the Federal Confidentiality of Alcohol and Drug Abuse Patient Records regulations: The Federal rules restrict any use of the information to criminally investigate or prosecute any alcohol or drug abuse patient.[facility] the event this information is protected by the Federal Confidentiality of Alcohol and Drug Abuse Patient Records regulations: The Federal rules restrict any use of the information to criminally investigate or prosecute any alcohol or drug abuse patient.[facility] the event this information is protected by the Federal Confidentiality of Alcohol and Drug Abuse Patient Records regulations: The Federal rules restrict any use of the information to criminally investigate or prosecute any alcohol or drug abuse patient.[facility] Reason for Visit (unrecogniz ed section [...] Care Teams (unrecognized sec tion and content) Thread Twister Relationship Specialty Start Date End Date Sara Medellin MD [address] [id number] PCP - General Family Medicine 04/11/22 Thread Twister Relationship Specialty Start Date End Date Sara Medellin MD [address] [place] [address] PCP - General Family Medicine 04/11/22 Thread Twister Relationship Specialty Start Date End Date Sara Medellin MD [address] [place] [address] PCP - General Family Medicine 04/11/22 Thread Twister Relationship Specialty Start Date End Date Sara Medellin MD PCP - General Family Medicine 04/11/22 Thread Twister Relationship Specialty Start Date End Date Sara Medellin MD PCP - General Family Medicine 04/11/22 Thread Twister Relationship Specialty Start Date End Date Sara Medellin MD [address] [place] [address] PCP - General Family Medicine 10/03/22 Thread Twister Relationship Specialty Start Date End Date Sara Medellin MD PCP - General Family Medicine 04/11/22 Thread Twister Relationship Specialty Start Date End Date Sara Medellin MD PCP - General Family Medicine 04/11/22 Thread Twister Relationship Specialty Start Date End Date Sara Medellin MD PCP - General Family Medicine 04/11/22 Thread Twister Relationship Specialty Start Date End Date Sara Medellin MD [address] [facility] [address] PCP - General Family Medicine 10/03/22 Thread Twister Relationship Specialty Start Date End Date Sara Medellin MD [address] [facility] [place] [address] PCP - General Family Medicine 10/03/22 Thread Twister Relationship Specialty Start Date End Date Sara Medellin MD [address] [place] [address] PCP - General Family Medicine 10/03/22 Thread Twister Relationship Specialty Start Date End Date Sara Medellin MD [address] [facility] [place] [address] PCP - General 01/10/24 Thread Twister Relationship Specialty Start Date End Date Sara Medellin MD [address] [facility] [place] [place] [address] PCP - General Family Medicine 10/03/22 Thread Twister Relationship Specialty Start Date End Date Sara Medellin MD [address] [facility] [place] [address] PCP - General Family Medicine 10/03/22 INFORMATION SOURCE (unrecogn ized section and content) DATE CREATED AUTHOR 09/02/2022 [facility] DATE CREATED AUTHOR AUTHOR'S ORGANIZ ATION 01/11/2024 [facility] DATE CREATED AUTHOR AUTHOR'S ORGANIZ ATION 01/13/2024 [facility] DATE CREATED AUTHOR AUTHOR'S ORGANIZ ATION 04/01/2024 [facility] EPIC FOR RECORDS PERTAINING TO [...] BE BASED ON THE PRIMARY CLINICAL RECORDS. [employer] provides no warranty or guarantee of the accuracy or completeness of information in this document.
--- NOTE | 2024-04-04 13:12 | US_ITS ---
[address] [address] Patient Name: LITO RAMIREZ MRN: [id number] date: 1990 Sex: F Assigned Patient Location: [facility] Current Patient Location: Accession/Order Number: [id number] Exam Date: 04/04/2024 13:16 Report Date: 04/05/2024 04:56 At the request of: MARTINE LESTER Procedure: US OB BPP w non-stress EXAMINATION: US OB BPP w non-stress HISTORY:THYROID DISEASE E07.9 COMPARISON: Ultrasound OB biophysical 03/28/2024 TECHNIQUE: Ultrasound biophysical profile was performed in the radiology department. BREATHING MOVEMENTS: 2 GROSS BODY MOVEMENTS: 2 TONE: 2 QUALITATIVE AMNIOTIC FLUID VOLUME: 2 PRESENTATION: CEPHALIC HEART RATE: 144.39 bpm AMNIOTIC FLUID VOLUME: 22.94 cm GESTATIONAL AGE: 36 weeks 4 days US/US OB BPP w non-stress IMPRESSION: Total biophysical profile score: 8 Electronically authenticated by: AMADOR GUERRERO Date: 04/05/2024 04:56
[2024-04-04 14:16] VITALS: BP 108/65; PULSE 77
== END 2024-04-04 14:20 | disposition home or self-care (01) ==
LOC: FBCO 06:11 → FBC 13:09
PROVIDERS: PCP Family Medicine; Visit Provider Obstetrics & Gynecology
DX: O99.283 Endocrine, nutritional and metabolic diseases complicating pregnancy, third trimester (principal); Z3A.36 36 weeks gestation of pregnancy
CPT/HCPCS: 76818

== ENCOUNTER 2024-04-11 06:46 | Outpatient (OUT) | payer OTHER, SELFPAY ==
--- OUTSIDE RECORDS SUMMARY | 2024-04-11 06:49 | XMS_ITS | CCD ---
Author Organization [facility] Care Team Providers Care Placing Judge Name Role Phone Sara Medellin MD Primary Care Provider [phone] RAIZA, DR GUERRA Consulting Unavailable HOY ., [...] Unavailable SHANIA ., DR FARLEY Admitting Unavailable KIMBELRY ., CLARI Consulting Unavailable KIMBERLY ., CLARI [...] Unavailable Sara Medellin MD Primary Care Provider [phone] Sara Medellin MD Primary Care Provider [phone] Sara Medellin MD Primary Care Provider [phone] SARA MEDELLIN Primary Care Unavailable Arslan GARCIA Attending Unavailable SARA MEDELLIN Primary Care Unavailable Arslan GARCIA Attending Unavailable SARA MEDELLIN Primary Care Unavailable YFN MICHELLE Attending Unavailable SHANIA, ACOSTA R Referring Unavailable SARA MEDELLIN Primary Care Unavailable SHANIA, ACOSTA R Referring Unavailable SARA MEDELLIN Primary Care Unavailable Sara Medellin MD Primary Care Provider [phone] SHANIA, ACOSTA Attending Unavailable SHANIA, ACOSTA Attending Unavailable SHANIA, ACOSTA Attending Unavailable SHANIA, ACOSTA Attending Unavailable SHANIA, ACOSTA Attending Unavailable SHANIA, ACOSTA Attending Unavailable KIM MCKEON Attending Unavailable SHANIA, ACOSAT Attending Unavailable SHANIA, ACOSTA Attending Unavailable SHANIA, ACOSTA Attending Unavailable Allergies Allergy Classification Reported Allergen(s) Allergy Type Date of Onset Reaction(s) Facility (20 sources) Cefaclor; Translations: [CEFACLOR] Drug Allergy 04-11-20 22 Hives, Shortness of Breath, Anaphylaxis [facility] (13 sources) Penicillins; Translations: [PENICILLINS] Drug Allergy 04-11-20 22 Hives, Shortness of Breath [facility] (2 sources) Cefaclor Drug Allergy 05-10-19 14 [facility] (2 sources) Penicillins Drug allergy (disorder) 05-10-19 14 [facility] (20 sources) Penicillin G sodium; Translations: [PENICILLIN G SODIUM] Allergy to substance 09-24-19 23 Anaphylaxis [facility] (20 sources) Cephalosporins (Antibiotic); Translations: [CEPHALOSPORINS] Propensity to adverse reactions to drug (disorder) 12-17-19 Anaphylaxis [facility] (20 sources) Penicillin; Translations: [PENICILLIN G] Drug Allergy [...] aspirin 81 mg delayed release oral tablet (19 sources) Platelet Aggregation Inhibitor, Nonsteroidal Anti-inflammatory Drug [...] mucositis Active citalopram 20 mg oral tablet (20 sources) Serotonin Reuptake Inhibitor Start: 11-28-2023 take [...] 90 tablet 3 10/16/2023 Active Start: 11-09-2022 End: 01-14-2024 take 1 tablet by mouth once daily before breakfast levothyroxine (Synthroid, Levoxyl) 175 MCG tablet TAKE ONE TABLET BY MOUTH ONCE DAILY BEFORE BREAKFAST 08/16/2023 01/14/2024 Discontinued Start: 05-04-2022 take 1 tablet by олег [...] Momma's for breast feeding 27-1 MG tablet (20 sources) Start: 01-14-2024 take 1 tablet by mouth once daily 27-1 MG tablet Indications: 25 weeks gestation of Take 1 tablet by mouth Daily 30 tablet 11 01/14/2024 Active Start: 10-10-2023 End: 01-14-2024 take 1 tablet by mouth once daily 27-1 MG tablet Indications: First trimester TAKE 1 TABLET BY MOUTH DAILY 30 tablet 10/10/2023 01/14/2024 Discontinued (Reorder) no115/iron/folic ac id ( 19 ORAL) (1 source) no115/i marixa/folic acid ( 19 ORAL) Take by mouth. Active Completed/Discontinued Medications Medication Drug Class(es) Dates Sig (Normalized) Sig (Original) hyoscyamine sulfate 0.125 mg sublingual tablet (3 sources) Start: 06-26-2023 End: 01-14-2024 Levsin/SL 0.125 MG SL tablet 1 tablet under the tongue and allow to dissolve as needed Sublingual AC and HS 06/26/2023 01/14/2024 Discontinued Problems Active Problems Problem Classification Problem Date Documented Date Episodic/Chronic Administrative/social admission (2 sources) Problems related to multiparity; Translations: [Food insecurity] Onset: 01-11-2024 4 Episodic Cancer of thyroid (20 sources) Malignant [...] Chronic Conditions associated with dizziness or vertigo (20 sources) Cochlear hydrops of right inner ear; [...] 08-07-2022 Episodic Other aftercare (1 source) Other senior living (current) drug therapy; Translations: [[facility] CURRENT DRUG [facility]ERAPY] Onset: 08-24-2022 Episodic Other [...] Episodic Other ear and sense organ disorders (20 sources) Asymmetrical sensorineural hearing loss; Translations: [Sensorineural [...] conditions (not mental disorders or infectious disease) (4 sources) Encounter for other specified screening; Translations: [Encounter for suspected placental problem ruled out] Onset: 01-11-2024 01-14-2024 Episodic Other upper respiratory infections (1 source) [...] [36 weeks gestation of ] 03-31-2024 Episodic Residual codes; unclassified (2 sources) Gestation period, 25 weeks; Translations: [25 weeks gestation of ] 01-14-2024 Episodic Substance-related disorders (1 source) Nicotine dependence, [...] 01-10-2022 Episodic Diseases of mouth; excluding dental (20 sources) Other lesions of oral mucosa; Translations: [Oropharyngeal lesion] Onset: 02-26-2022 Resolved: 09-23-2022 09-23-2022 Episodic E Codes: Fire/burn (1 source) Contact with other heat and hot substances, initial encounter; Translations: [CONTACT OTH HEAT HOT SUBSTANCE INIT] Onset: 12-13-2021 Episodic Esophageal disorders (20 sources) Gastro-esophageal reflux disease without esophagitis; Translations: [Gastroesophageal reflux disease] Onset: 03-16-2022 Resolved: 09-23-2022 09-23-2022 Chronic Menstrual disorders (20 sources) Amenorrhea, unspecified; Translations: [Missed period] Onset: 08-17-2022 Resolved: 09-23-2022 Chronic Miscellaneous mental health disorders (20 sources) depression; Translations: [ depression] Onset: 09-23-2022 [...] Episodic Other ear and sense organ disorders (20 sources) Bilateral tinnitus; Translations: [Tinnitus, bilateral] Onset: [...] UA Negative Negative - 4(70) +++ mg/dL [facility] Blood, UA Negative Negative - 50 Maury/mcL [facility] Clarity, UA Clear [facility] re Color, UA Yellow [facility] Glucose, UA Negative Negative - 2000(110) ++++ mg/dL [facility] Interpretation and review of laboratory results Abnormal [facility] Ketones, UA Negative Negative - 160(16) ++++ mg/dL [facility] Leukocytes, UA Positive Negative - 500+++ Fan/mcL [facility] Healthcare Nitrite, UA Negative Negative - Positive [facility] pH, UA 7 5 - 9 [facility] Protein, UA Trace Negative - 1999(20) ++++ mg/dL [facility] Spec Grav, UA 1.025 1 - 1.03 [facility] Urobilinogen, UA 1.0 0.2 - 12 mg/dL [facility] Urinalysis macro (dipstick) panel (U)on 03-24-2024 Bilirubin, UA Positive Negative - 4(70) +++ mg/dL [facility] Comment on above: moderate Blood, UA Negative Negative - 50 Maury/mcL [facility] Clarity, UA Clear [facility] Color, UA Amanda [facility] Glucose, UA Positive Negative - 1999(110) ++++ mg/dL [facility] Comment on above: 100 Interpretation and review of laboratory results Abnormal [facility] Ketones, UA Positive Negative - 160(16) ++++ mg/dL [facility] Comment on above: 15 Leukocytes, UA Negative Negative - 500+++ Fan/mcL [facility] Nitrite, UA Negative Negative - Positive [facility] pH, UA 6.5 5 - 9 [facility] Healthcar e Protein, UA Positive Negative - 1999(20) ++++ mg/dL [facility] Comment on above: 100 Spec Grav, UA 1.025 1 - 1.03 [facility] Urobilinogen, UA 2.0 0.2 - 12 mg/dL [facility] Referral to Food C linicon 02-26-2024 [facility] Urinalysis macro (dipstick) panel (U)on 02-11-2024 Bilirubin, UA Negative Negative - 4(70) +++ mg/dL [facility] Blood, UA Negative Negative - 50 Maury/mcL [facility] Clarity, UA Clear [facility] Color, UA Yellow [facility] Glucose, UA Negative Negative - 1999(110) ++++ mg/dL [facility] Interpretation and review of laboratory results Abnormal [facility] Ketones, UA Negative Negative - 160(16) ++++ mg/dL [facility] Leukocytes, UA Positive Negative - 500+++ Fan/mcL [facility] Nitrite, UA Negative Negative - Positive [facility] pH, UA 7 5 - 9 [facility] Health[facility] e Protein, UA Positive Negative - 1999(20) ++++ mg/dL [facility] Spec Grav, UA 1.02 1 - 1.03 [facility] Urobilinogen, UA 1.0 0.2 - 12 mg/dL [facility] ALL THYROID STIM HORMONEon 1 Interpretation and review of laboratory results Abnormal [facility] TSH Qn 28.537 m[IU]/L High [facility] Healthcar e Urinalysis macro (dipstick) panel (U)on 01-14-2024 Bilirubin, UA Positive Negative - 4(70) +++ mg/dL [facility] Blood, UA Negative Negative - 50 Maury/mcL [facility] Clarity, UA Clear [facility] re Color, UA Yellow [facility] e Glucose, UA Negative Negative - 1999(110) ++++ mg/dL [facility] Interpretation and review of laboratory results Abnormal [facility] Ketones, UA Positive Negative - 160(16) ++++ mg/dL [facility] Comment on above: small Leukocytes, UA Positive Negative - 500+++ Fan/mcL [facility] Comment on above: small Nitrite, UA Negative Negative - Positive [facility] pH, UA 6.5 5 - 9 [facility] Healthcar e Protein, UA Negative Negative - 1999(20) ++++ mg/dL [facility] Spec Grav, UA 1.020 1 - 1.03 [facility] Urobilinogen, UA 1.0 0.2 - 12 mg/dL [facility] Cytology Cervical or vaginal smear or scraping studyon 11-13-2023 [facility] Healthcar e CNPMaru 11-12-2023 CNPN Telephone (ErrundA) AMANDA CORTEZ ([id number]) 1990 F Date Time Provider Department 11/12/23 Arslan GARCIA During your visit today, we recorded the following information about you: Danna Pitts RN 11/12/2023 11:25 AM Signed Spoke to pt. She would like to see endocrinology in [place]. Pt's OB did adjust synthroid recently and [...] Obi Genao 11/12/2023 11:26 AM Signed Lawanda elbert send records to Idris dulce in your box Clarissa Harkins 11/12/2023 1:18 [...] to hear back from patient. Meryl Nguyen PssMeryl 12/05/2023 9:12 AM Signed Called left message for Dr Arteaga office to call our office back re: status of this referral. Meryl Nguyen PssMeryl 12/10/2023 1:[address] Arteaga office spoke with Miguel. Per Miguel she states she called and left patient message on 11/21. As of now their office is waiting to hear back from patient. Mreyl Nguyen PssMeryl 01/09/2024 2:[address] Arteaga [...] [C73] Order(s):CONSULT TO ENDOCRINOLOGY [9007] Order #: [id number]: 1 FUTURE Prescriptions as of 01/09/2024 - [...] Encounter Status:Closed by DANNA PITTS on 11/13/23 [facility] Emelina 07-19-2023 [facility] AMANDA CORTEZ ([id number]) 1990 F Date Time Provider Department 07/19/23 EDNA SAL During your visit today, we recorded the following information about you: Edna Sal RN 07/19/2023 10:42 AM Signed Pt called to request labs sent to [facility]. Faxed to central scheduling. Edna [...] Encounter Status:Closed by EDNA SAL [facility]19[facility]23 [facility] [facility] Telephone ([facility]) AMANDA CORTEZ ([id number]) 1990 F Date Time Provider Department 06/25/23 [...] Signed Patients lab orders were sent to [facility] and I scheduled her a [...] (HCC) [C73] Order(s):T4/THYROXIN E [SQT4] Order #: [id number] FUTURE THYROID STIMULATING HORMONE [SQTSH] Order #: [id number] FUTURE THYROGLOBULIN, SERUM WITH REFLEX TO IA OR LC-MS/MS [SQTHYRORF] Order #: [id number] FUTURE Prescriptions as of 08/23/2023 - levothyroxine [...] by Arslan GARCIA on 08/15/23 [facility] AM[facility]DA CORTEZ ([id number]) 1990 F Date Time Provider Department 02/14/23 [...] Status:Closed by OBI GENAO on 02/14/23 Normal [facility] CBC W Auto Differential pane l (Bld)on 02-01-2023 Basophils (Bld) [#/Vol] 0.04 10*3/uL Normal <0.11 [facility] Comment on above: Order Comment: Speci men Type: BLOOD SPECIMEN Ordering Facility: [facility] Address: [place] [address] Performed By: #### 5 7021-8 #### [facility] CLIA [id number] [address] [place] [address] 54410 Basophils/100 WBC (Bld) 0.5 % Normal [facility] Comment on above: Order Comment: Speci men Type: BLOOD SPECIMEN Ordering Facility: [facility] Address: [address] [place] [address] Performed By: #### 5 7021-8 #### [facility] CLIA [id number] [address] [place] [address] 78522 Differential cell count method Nom (Bld) Auto Normal [facility] Comment on above: Order Comment: Speci men Type: BLOOD SPECIMEN Ordering Facility: [facility] Address: [address] [place] [address] Performed By: #### 5 7021-8 #### [facility] CLIA [id number] [address] [place] [address] 85051 Eosinophils (Bld) [#/Vol] 0.19 10*3/uL Normal <0.46 [facility] Comment on above: Order Comment: Speci men Type: BLOOD SPECIMEN Ordering Facility: [facility] Address: [address] [place] [address] Performed By: #### 5 7021-8 #### [facility] CLIA [id number] [address] [place] [address] 80018 Eosinophils/100 WBC (Bld) 2.5 % Normal [facility] Comment on above: Order Comment: Speci men Type: BLOOD SPECIMEN Ordering Facility: [facility] Address: [address] [place] [address] Performed By: #### 5 7021-8 #### [facility] CLIA [id number] [address] [place] [address] 87371 Erythrocyte distribution width (RBC) [Ratio] 13.3 % Normal 11.5-15.0 [facility] Comment on above: Order Comment: Speci men Type: BLOOD SPECIMEN Ordering Facility: [facility] Address: [address] [place] [address] Performed By: #### 5 7021-8 #### [facility] CLIA [id number] [address] [place] [address] 58007 Hematocrit (Bld) [Volume fraction] 47.7 % High 36.0-46.0 [facility] Comment on above: Order Comment: Speci men Type: BLOOD SPECIMEN Ordering Facility: [facility] Address: [address] [place] [address] Performed By: #### 5 7021-8 #### [facility] CLIA [id number] [address] [place] [address] 37956 Hemoglobin (Bld) [Mass/Vol] 15.6 g/dL High 11.5-15.5 [facility] Comment on above: Order Comment: Speci men Type: BLOOD SPECIMEN Ordering Facility: [facility] Address: [address] [place] [address] Performed By: #### 5 7021-8 #### [facility] CLIA [id number] [address] [place] [address] 22688 Immature granulocytes (Bld) [#/Vol] 0.03 10*3/uL Normal <0.10 [facility] Comment on above: Order Comment: Speci men Type: BLOOD SPECIMEN Ordering Facility: [facility] Address: [address] [place] [address] Performed By: #### 5 7021-8 #### [facility] CLIA [id number] [address] [place] [address] 94521 Immature granulocytes/100 WBC (Bld) 0.4 % Normal [facility] Comment on above: Order Comment: Speci men Type: BLOOD SPECIMEN Ordering Facility: [facility] Address: [address] [place] [address] Performed By: #### 5 7021-8 #### [facility] CLIA [id number] [address] [place] [address] 71333 Lymphocytes (Bld) [#/Vol] 2.30 10*3/uL Normal 1.00-4.00 [facility] Comment on above: Order Comment: Speci men Type: BLOOD SPECIMEN Ordering Facility: [facility] Address: [address] [place] [address] Performed By: #### 5 7021-8 #### [facility] CLIA [id number] [address] [place] [address] 49763 Lymphocytes/100 WBC (Bld) 29.7 % Normal [facility] Comment on above: Order Comment: Speci men Type: BLOOD SPECIMEN Ordering Facility: [facility] Address: [address] [place] [address] Performed By: #### 5 7021-8 #### [facility] CLIA [id number] [address] [place] [address] 12289 MCH (RBC) [Entitic mass] 28.8 pg Normal 26.0-34.0 [facility] Comment on above: Order Comment: Speci men Type: BLOOD SPECIMEN Ordering Facility: [facility] Address: [address] [place] [address] Performed By: #### 5 7021-8 #### [facility] CLIA [id number] [address] [place] [address] 56671 MCHC (RBC) [Mass/Vol] 32.7 g/dL Normal 30.5-36.0 [facility] Comment on above: Order Comment: Speci men Type: BLOOD SPECIMEN Ordering Facility: [facility] Address: [address] [place] [address] Performed By: #### 5 7021-8 #### [facility] CLIA [id number] [address] [place] [address] 82589 MCV (RBC) [Entitic vol] 88.2 fL Normal 80.0-100.0 [facility] Comment on above: Order Comment: Speci men Type: BLOOD SPECIMEN Ordering Facility: [facility] Address: [address] [place] [address] Performed By: #### 5 7021-8 #### [facility] CLIA [id number] [address] [place] [address] 85139 Monocytes (Bld) [#/Vol] 0.49 10*3/uL Normal <0.87 [facility] Comment on above: Order Comment: Speci men Type: BLOOD SPECIMEN Ordering Facility: [facility] Address: [address] [place] [address] Performed By: #### 5 7021-8 #### [facility] CLIA [id number] [address] [place] [address] 98696 Monocytes/100 WBC (Bld) 6.3 % Normal [facility] Comment on above: Order Comment: Speci men Type: BLOOD SPECIMEN Ordering Facility: [facility] Address: [address] [place] [address] Performed By: #### 5 7021-8 #### [facility] CLIA [id number] [address] [place] [address] 09664 Neutrophils (Bld) [#/Vol] 4.70 10*3/uL Normal 1.45-7.50 [facility] Comment on above: Order Comment: Speci men Type: BLOOD SPECIMEN Ordering Facility: [facility] Address: [address] [place] [address] Performed By: #### 5 7021-8 #### [facility] CLIA [id number] [address] [place] [address] 93725 Neutrophils/100 WBC (Bld) 60.6 % Normal [facility] Comment on above: Order Comment: Speci men Type: BLOOD SPECIMEN Ordering Facility: [facility] Address: [address] [place] [address] Performed By: #### 5 7021-8 #### [facility] CLIA [id number] [address] [place] [address] 17824 Nucleated RBC (Bld) [#/Vol] 10*3/uL Normal <0.01 [facility] Comment on above: Order Comment: Speci men Type: BLOOD SPECIMEN Ordering Facility: [facility] Address: [address] [place] [address] Performed By: #### 5 7021-8 #### [facility] CLIA [id number] [address] [place] [address] 72786 Nucleated RBC/100 WBC (Bld) [Ratio] 0.0 /100 WBC Normal [facility] Comment on above: Order Comment: Speci men Type: BLOOD SPECIMEN Ordering Facility: [facility] Address: [address] [place] [address] Performed By: #### 5 7021-8 #### [facility] CLIA [id number] [address] [place] [address] 27757 Platelet mean volume (Bld) [Entitic vol] 9.6 fL Normal 9.0-12.7 [facility] Comment on above: Order Comment: Speci men Type: BLOOD SPECIMEN Ordering Facility: [facility] Address: [address] [place] [address] Performed By: #### 5 7021-8 #### [facility] CLIA [id number] [address] [place] [address] 90867 Platelets (Bld) [#/Vol] 248 10*3/uL Normal 150-400 [facility] Comment on above: Order Comment: Speci men Type: BLOOD SPECIMEN Ordering Facility: [facility] Address: [address] [place] [address] Performed By: #### 5 7021-8 #### [facility] CLIA [id number] [address] [place] [address] 33281 RBC (Bld) [#/Vol] 5.41 10*6/uL High 3.90-5.20 [facility] Comment on above: Order Comment: Speci men Type: BLOOD SPECIMEN Ordering Facility: [facility] Address: [address] [place] [address] Performed By: #### 5 7021-8 #### [facility] CLIA [id number] [address] [place] [address] 24989 WBC (Bld) [#/Vol] 7.75 10*3/uL Normal 3.70-11.00 [facility] Comment on above: Order Comment: Speci men Type: BLOOD SPECIMEN Ordering Facility: [facility] Address: [address] [place] [address] Performed By: #### 5 7021-8 #### [facility] CLIA [id number] [address] [place], [place] [address] T3 SerPl-mCncon 02-01-2023 T3 [Mass/Vol] 123 ng/dL Normal 79-165 [facility] Comment on above: Order Comment: Chel iverson Type: BLOOD SPECIMEN Ordering Facility: [facility] Address: [address] [place] [address] Performed By: #### 3 053-6, 3016-3, 3026-2 #### [facility] CLIA [id number] [address] [place] [address] [place] T4 SerPl-mCncon 02-01-2023 T4 [Mass/Vol] 11.9 ug/dL High 5.5-10.2 [facility] Comment on above: Order Comment: Chel iverson Type: BLOOD SPECIMEN Ordering Facility: [facility] Address: [address] [place] [address] Performed By: #### 3 053-6, 3016-3, 3026-2 #### [facility] CLIA [id number] [address] [place] [address] [place] THYROGLOBULIN BY MASS SPECTR OMETRYon 02-01-2023 THYROGLOBULIN, LC-MS/MS <0.5 Low 1.3-31.8 [facility] Comment on above: Order Comment: Chel iverson Type: BLOOD SPECIMEN Ordering Facility: [facility] Address: [address] [place] [address] Result Comment: Results obtained with different test [...] developed and its performance characteristics determined by [facility]. It has not been cleared or approved by the [place] Food and Drug Administration. This test was performed in a CLIA certified laboratory and is intended for clinical purposes. Performed By: [facility] [address] [place] [address] Personnel Quality Assurance Auditor: Prem Willis MD, PhD CLIA Number: [id number] Performed By: #### T [facility] #### [facility] CLIA [id number] [address] [place] [address] TSH SerPl-aCncon 02-01-2023 TSH Qn 0.960 m[IU]/L Normal 0.270-4.200 [facility] Comment on above: Order Comment: Speci men Type: BLOOD SPECIMEN Ordering Facility: [facility] Address: [address] [place] [address] Result Comment: If t he patient is , TSH reference range varies by gestational period: First Trimester (weeks 9-12): 0.180-2.990 mIU/L Second Trimester: 0.110-3.980 mIU/L Third Trimester: 0.480-4.710 mIU/L Suman Graf et al. A Practical Approach for the Verifications and Determination of Site- and Trimester-Specific Reference Intervals for Thyroid Function tests in . Thyroid, 2019:29:3:412-420. Rajesh E, et al. 2017 Guidelines of the [place] [employer] for the Diagnosis and Management of Thyroid Disease during and the . Thyroid, 2017:27:3:315-389. Performed By: #### 3 053-6, 3016-3, 3026-2 #### [facility] CLIA [id number] [address] [facility] [id number] [place] [address] [place] PREG QUANT HCGon 08-17-2022 HCG QUANT 1 mIU/mL Normal [facility] Comment on above: Performed By: #### P REGQNT #### [facility] [address] [address] [address] Prashant Kang HCG RANGE SEE BELOW Normal [facility] Comment on above: Result Comment: 5-50 0.2-1 WEEK 50-500 1-2 WEEKS 100-5,000 2-3 WEEKS 500-10,000 3-4 WEEKS 1,000-50,000 4-5 WEEKS 10,000-100,000 5-6 WEEKS 15,000-200,000 6-8 WEEKS 10,000-100,000 2-3 MONTHS Performed By: #### P REGQNT #### [facility] [address] [place] [address] Dr. Prashant Kang PREG QUANT HCGon 07-04-2022 HCG QUANT <1 Normal [facility] Comment on above: Performed By: #### P REGQNT #### [facility] [address] [place] [address] Dr. Prashant Kang HCG RANGE SEE BELOW Normal [facility] Comment on above: Result Comment: 5-50 0.2-1 WEEK 50-500 1-2 WEEKS 100-5,000 2-3 WEEKS 500-10,000 3-4 WEEKS 1,000-50,000 4-5 WEEKS 10,000-100,000 5-6 WEEKS 15,000-200,000 6-8 WEEKS 10,000-100,000 2-3 MONTHS Performed By: #### P REGQNT #### [facility] [address] [place] [address] Dr. Prashant Kang PREG QUANT HCGon 05-16-2022 HCG QUANT <1 Normal [facility] Comment on above: Performed By: #### P TT, PT #### [facility] [address] [place] [address] Dr. Prashant Kang HCG RANGE SEE BELOW Normal [facility] Comment on above: Result Comment: 5-50 0.2-1 WEEK 50-500 1-2 WEEKS 100-5,000 2-3 WEEKS 500-10,000 3-4 WEEKS 1,000-50,000 4-5 WEEKS 10,000-100,000 5-6 WEEKS 15,000-200,000 6-8 WEEKS 10,000-100,000 2-3 MONTHS Performed By: #### P TT, PT #### [facility] [address] [place] [address] Dr. Prashant Kang PREG QUANT HCGon 05-08-2022 HCG QUANT <1 Normal [facility] Comment on above: Performed By: #### P REGQNT #### [facility] [address] [place] [address] Dr. Prashant Kang HCG RANGE SEE BELOW Normal [facility] Comment on above: Result Comment: 5-50 0.2-1 WEEK 50-500 1-2 WEEKS 100-5,000 2-3 WEEKS 500-10,000 3-4 WEEKS 1,000-50,000 4-5 WEEKS 10,000-100,000 5-6 WEEKS 15,000-200,000 6-8 WEEKS 10,000-100,000 2-3 MONTHS Performed By: #### P REGQNT #### [facility] [address] [address] [address] Prashant Kang CALCIUMon 03-08-2022 Calcium [Mass/Vol] 8.6 mg/dL Normal 8.5-10.1 [facility] Comment on above: Performed By: #### C A #### [facility] [address] [place] [address] Dr. Prashant Kang CALCIUMon 03-07-2022 Calcium [Mass/Vol] 8.4 mg/dL Critically low 8.5-10.1 [facility] Comment on above: Performed By: #### C A #### [facility] [address] [place] [address] Dr. Prashant Kang PREG HCG QUALon 03-07-2022 , QUAL Negative Normal NEGATIVE [facility] Comment on above: Performed By: #### P REG #### [facility] [address] [place] [address] Dr. Prashant Kang [facility]on SARS-CoV-2 (COVID-19) RNA DENEEN+probe Ql (Unsp spec) Not detected Normal NOT DETECTED [facility] Comment on above: Result Comment: This test is not yet approved or cleared by the [place] FDA. When there are no FDA-approved or cleared tests available, and other criteria are met, FDA can make tests available under an emergency access mechanism called an Emergency Use Authorization (EUA). The EUA for this test is supported by the [place] of Health and Human Service's (HHS's) declaration [...] SARS-CoV-2. Performed By: #### C VDTBH #### [facility] [address] [place] [address] Dr. Prashant Kang CALCIUMon 02-24-2022 Calcium [Mass/Vol] 8.8 mg/dL Normal 8.5-10.1 [facility] Comment on above: Performed By: #### P TT, PT #### [facility] [address] [place] [address] Dr. Prashant Kang CBC AUTO DIFFon 02-24-2022 BASO # 0.0 103/ul Normal 0.0-0.1 [facility] Comment on above: Performed By: #### P TT, PT #### [facility] [address] [place] [address] Dr. Prashant Kang Basophils/100 WBC (Bld) 0.3 % Normal 0.2-2.0 [facility] Comment on above: Performed By: #### P TT, PT #### [facility] [address] [place] [address] Dr. Prashant Kang EO # 0.1 103/ul Normal 0.0-0.7 [facility] Comment on above: Performed By: #### P TT, PT #### [facility] [address] [place] [address] Dr. Prashant Kang Eosinophils/100 WBC (Bld) 1.5 % Normal 0.9-7.0 [facility] Comment on above: Performed By: #### P TT, PT #### [facility] [address] [place] [address] Dr. Prashant Kang Erythrocyte distribution width (RBC) [Ratio] 13.8 % Normal 11.0-15.0 [facility] Comment on above: Performed By: #### P TT, PT #### [facility] [address] [place] [address] Dr. Prashant Kang Hematocrit (Bld) [Volume fraction] 45.5 % Normal 36.0-48.0 [facility] Comment on above: Performed By: #### P TT, PT #### [facility] [address] [place] [address] Dr. Prashant Kang Hemoglobin (Bld) [Mass/Vol] 14.6 g/dL Normal 12.0-16.0 [facility] Comment on above: Performed By: #### P TT, PT #### [facility] [address] [place] [address] Dr. Prashant Kang IG # 0.02 10e3/ul Normal 0.00-0.03 [facility] Comment on above: Performed By: #### P TT, PT #### [facility] [address] [place] [address] Dr. Prashant Kang IG % 0.3 % Normal 0.0-0.5 [facility] Comment on above: Performed By: #### P TT, PT #### [facility] [address] [place] [address] Dr. Prashant Kang LYMPH # 1.6 103/ul Normal 1.2-3.8 [facility] Comment on above: Performed By: #### P TT, PT #### [facility] [address] [place] [address] Dr. Prashant Kang Lymphocytes/100 WBC (Bld) 23.5 % Normal 20.5-60.0 [facility] Comment on above: Performed By: #### P TT, PT #### [facility] [address] [place] [address] Dr. Prashant Kang MANUAL DIFF REQ NO Normal [facility] Comment on above: Performed By: #### P TT, PT #### [facility] [address] [place] [address] Dr. Prashant Kang MCH (RBC) [Entitic mass] 26.5 pg Critically low 26.7-34.0 [facility] Comment on above: Performed By: #### P TT, PT #### [facility] [address] [address] [address] Prashant Kang MCHC (RBC) [Mass/Vol] 32.1 g/dL Normal 29.9-35.2 [facility] Comment on above: Performed By: #### P TT, PT #### [facility] [address] [place] [address] Dr. Prashant Kang MCV (RBC) [Entitic vol] 82.7 fL Normal 81.0-99.0 [facility] Comment on above: Performed By: #### P TT, PT #### [facility] [address] [place] [address] Dr. Prashant Kang MONO # 0.5 103/ul Normal 0.3-0.8 [facility] Comment on above: Performed By: #### P TT, PT #### [facility] [address] [place] [address] Dr. Prashant Kang Monocytes/100 WBC (Bld) 7.5 % Normal 1.7-12.0 [facility] Comment on above: Performed By: #### P TT, PT #### [facility] [address] [place] [address] Dr. Prashant Kang NEUT # 4.6 103/ul Normal 1.4-6.5 [facility] Comment on above: Performed By: #### P TT, PT #### [facility] [address] [place] [address] Dr. Prashant Kang Neutrophils/100 WBC (Bld) 66.9 % Normal 43.0-75.0 [facility] Comment on above: Performed By: #### P TT, PT #### [facility] [address] [place] [address] Dr. Prashant Kang Platelet mean volume (Bld) [Entitic vol] 9.9 fL Normal 9.5-13.5 [facility] Comment on above: Performed By: #### P TT, PT #### [facility] [address] [place] [address] Dr. Prashant Kang PLT 239 103/ul Normal 150-450 [facility] Comment on above: Performed By: #### P TT, PT #### [facility] [address] [place] [address] Dr. Prashant Kang RBC 5.50 106/ul Critically high 4.20-5.40 [facility] Comment on above: Performed By: #### P TT, PT #### [facility] [address] [place] [address] Dr. Prashant Kang WBC 6.8 103/ul Normal 4.0-11.0 [facility] Comment on above: Performed By: #### P TT, PT #### [facility] [address] [place] [address] Dr. Prashant Kang MAGNESIUMon 02-24-2022 Magnesium [Mass/Vol] 2.0 mg/dL Normal 1.8-2.4 [facility] Comment on above: Performed By: #### P TT, PT #### [facility] [address] [place] [address] Dr. Prashant Kang PHOSPHORUSon 02-24-2022 Phosphate [Mass/Vol] 3.3 mg/dL Normal 2.6-4.7 [facility] Comment on above: Performed By: #### P TT, PT #### [facility] [address] [place] [address] Dr. Prashant Kang PROTIMEon 02-24-2022 INR Coag (PPP) [Relative time] 1.01 {INR} Normal [facility] Comment on above: Performed By: #### P TT, PT #### [facility] [address] [place] [address] Dr. Prashant Kang INR GUIDELINES SEE BELOW Normal [facility] Comment on above: Result Comment: SALIMA RED INR: 2.0 - 3.0 CONDITIONS NOT LISTED BELOW 2.5 - 3.5 FOR PROSTHETIC HEART VALVE REPLACEMENT 2.5 - 3.5 RECURRENT THROMBOSIS Performed By: #### P TT, PT #### [facility] [address] [place] [address] Dr. Prashant Kang PT Coag (PPP) [Time] 10.9 s Normal 9.0-11.6 [facility] Comment on above: Performed By: #### P TT, PT #### [facility] [address], [place] [address] Dr. Prashant Kang PTTon 02-24-2022 aPTT Coag (Bld) [Time] 28.9 s Normal 22.3-36.2 [facility] Comment on above: Performed By: #### P TT, PT #### [facility] [address], [place] [address] Dr. Prashant Kang TSHon 02-24-2022 TSH 1.163 uIU/mL Normal 0.358-3.740 [facility] Comment on above: Performed By: #### P TT, PT #### [facility] [address], [place] [address] Dr. Prashant Kang US THYROID FN ASP BXon 02-09 US THYROID FN ASP BX Begin Addendum #1 COLLECTED DATE/TIME: 02/03/2022 11:36 EDT Final Diagnosis Report for [facility] [place] [place] (A/B) THYROID ISTHMUS NODULE, FINE NEEDLE [...] 2. Pathology results are pending. Normal [facility] CT NECK ST W CONon [...] SHAILESH EMERY Date: 2022-01-20 13:05 Normal [facility] US THYROIDon 01-20-2022 [...] isthmus nodule. Consider fine-needle aspiration TI-RADS: The [place] [employer] TI-RADS committee's white paper recommendations for thyroid lesions classified as TR4 (moderately suspicious) are listed below: > 1.0 cm. Follow-up ultrasound in 1, 2, 3, and 5 years. > 1.5 cm. FNA. J. Am More Radiol 2017;14:587-595. Electronically authenticated by: SHAILESH EMERY Date: 2022-01-20 21:46 Normal [facility] CBC AUTO DIFFon 01-08-2022 BASO # 0.0 103/ul Normal 0.0-0.1 [facility] Comment on above: Performed By: #### P TT, PT #### [facility] [address] [place] [address] Dr. Prashant Kang Basophils/100 WBC (Bld) 0.4 % Normal 0.2-2.0 [facility] Comment on above: Performed By: #### P TT, PT #### [facility] [address] [place] [address] Dr. Prashant Kang EO # 0.2 103/ul Normal 0.0-0.7 [facility] Comment on above: Performed By: #### P TT, PT #### [facility] [address] [place] [address] Dr. Prashant Kang Eosinophils/100 WBC (Bld) 3.4 % Normal 0.9-7.0 [facility] Comment on above: Performed By: #### P TT, PT #### [facility] [address] [place] [address] Dr. Prashant Kang Erythrocyte distribution width (RBC) [Ratio] 14.6 % Normal 11.0-15.0 [facility] Comment on above: Performed By: #### P TT, PT #### [facility] [address] [place] [address] Dr. Prashant Kang Hematocrit (Bld) [Volume fraction] 42.9 % Normal 36.0-48.0 [facility] Comment on above: Performed By: #### P TT, PT #### [facility] [address] [place] [address] Dr. Prashant Kang Hemoglobin (Bld) [Mass/Vol] 13.4 g/dL Normal 12.0-16.0 [facility] Comment on above: Performed By: #### P TT, PT #### [facility] [address] [place] [address] Dr. Prashant Kang IG # 0.02 10e3/ul Normal 0.00-0.03 [facility] Comment on above: Performed By: #### P TT, PT #### [facility] [address] [place] [address] Dr. Prashant Kang IG % 0.3 % Normal 0.0-0.5 [facility] Comment on above: Performed By: #### P TT, PT #### [facility] [address] [address] [address] Prashant Kang LYMPH # 2.0 103/ul Normal 1.2-3.8 [facility] Comment on above: Performed By: #### P TT, PT #### [facility] [address] [address] [address] Prashant Kang Lymphocytes/100 WBC (Bld) 29.7 % Normal 20.5-60.0 [facility] Comment on above: Performed By: #### P TT, PT #### [facility] [address] [address] [address] Prashant Kang MANUAL DIFF REQ NO Normal [facility] Comment on above: Performed By: #### P TT, PT #### [facility] [address] [place] [address] Dr. Prashant Kang MCH (RBC) [Entitic mass] 26.3 pg Critically low 26.7-34.0 [facility] Comment on above: Performed By: #### P TT, PT #### [facility] [address] [address] [address] Prashant Kang MCHC (RBC) [Mass/Vol] 31.2 g/dL Normal 29.9-35.2 [facility] Comment on above: Performed By: #### P TT, PT #### [facility] [address] [address] [address] Prashant Kang MCV (RBC) [Entitic vol] 84.1 fL Normal 81.0-99.0 [facility] Comment on above: Performed By: #### P TT, PT #### [facility] [address] [address] [address] Prashant Kang MONO # 0.6 103/ul Normal 0.3-0.8 [facility] Comment on above: Performed By: #### P TT, PT #### [facility] [address] [address] [address] Prashant Kang Monocytes/100 WBC (Bld) 8.7 % Normal 1.7-12.0 [facility] Comment on above: Performed By: #### P TT, PT #### [facility] [address] [place] [address] Dr. Prashant Kang NEUT # 3.9 103/ul Normal 1.4-6.5 [facility] Comment on above: Performed By: #### P TT, PT #### [facility] [address] [place] [address] Dr. Prashant Kang Neutrophils/100 WBC (Bld) 57.5 % Normal 43.0-75.0 [facility] Comment on above: Performed By: #### P TT, PT #### [facility] [address] [place] [address] Dr. Prashant Kang Platelet mean volume (Bld) [Entitic vol] 9.9 fL Normal 9.5-13.5 [facility] Comment on above: Performed By: #### P TT, PT #### [facility] [address] [place] [address] Dr. Prashant Kang PLT 241 103/ul Normal 150-450 [facility] Comment on above: Performed By: #### P TT, PT #### [facility] [address] [place] [address] Dr. Prashant Kang RBC 5.10 106/ul Normal 4.20-5.40 [facility] Comment on above: Performed By: #### P TT, PT #### [facility] [address] [place] [address] Dr. Prashant Kang WBC 6.8 103/ul Normal 4.0-11.0 [facility] Comment on above: Performed By: #### P TT, PT #### [facility] [address] [place] [address] Dr. Prashant Kang GROUP A STREP CULTUREon 12-29 S. pyogenes Ag Ql (Unsp spec) Culture Observations: NEGATIVE FOR GROUP A STREPTOCOCCUS. Normal [facility] Comment on above: Performed By: #### P TT, PT #### [facility] [address] [place] [address] Dr. Prashant Kang PROF 14(COMP METB)on 022 Albumin [Mass/Vol] 3.6 g/dL Normal 3.4-5.0 [facility] Comment on above: Performed By: #### C MP #### [facility] [address] [place] [address] Dr. Prashant Kang Albumin/Globulin [Mass ratio] 0.8 {ratio} Normal [facility] Comment on above: Performed By: #### C MP #### [facility] [address] [place] [address] Dr. Prashant Kang ALP [Catalytic activity/Vol] 74 U/L Normal 46-116 [facility] Comment on above: Performed By: #### C MP #### [facility] [address] [place] [address] Dr. Prashant Kang ALT [Catalytic activity/Vol] 40 U/L Normal 14-59 [facility] Comment on above: Performed By: #### C MP #### [facility] [address] [place] [address] Dr. Prashant Kang Anion gap [Moles/Vol] 14.0 mmol/L Normal [facility] Comment on above: Performed By: #### C MP #### [facility] [address] [place] [address] Dr. Prashant Kang AST [Catalytic activity/Vol] 31 U/L Normal 15-37 [facility] Comment on above: Performed By: #### C MP #### [facility] [address] [place] [address] Dr. Prashant Kang Bilirubin [Mass/Vol] 0.4 mg/dL Normal 0.2-1.0 [facility] Comment on above: Performed By: #### C MP #### [facility] [address] [place] [address] Dr. Prashant Kang Calcium [Mass/Vol] 8.8 mg/dL Normal 8.5-10.1 [facility] Comment on above: Performed By: #### C MP #### [facility] [address] [place] [address] Dr. Prashant Kang Chloride [Moles/Vol] 105 mmol/L Normal 98-107 [facility] Comment on above: Performed By: #### C MP #### [facility] [address] [address] [address] Prashant Kang CO2 [Moles/Vol] 26.6 mmol/L Normal 21.0-32.0 [facility] Comment on above: Performed By: #### C MP #### [facility] [address] [address] [address] Prashant Kang Creatinine [Mass/Vol] 0.80 mg/dL Normal 0.55-1.02 [facility] Comment on above: Performed By: #### C MP #### [facility] [address] [address] [address] Prashant Kang EGFR-AF MAURITIAN >60 Normal >=60 [facility] Comment on above: Performed By: #### C MP #### [facility] [address] [place] [address] Dr. Prashant Kang EGFR-NON AF MAURITIAN >60 Normal >=60 [facility] Comment on above: Performed By: #### C MP #### [facility] [address] [address] [address] Prashant Kang Globulin (S) [Mass/Vol] 4.3 g/dL Normal [facility] Comment on above: Performed By: #### C MP #### [facility] [address] [place] [address] Dr. Prashant Kang Glucose [Mass/Vol] 101 mg/dL Normal 74-106 [facility] Comment on above: Performed By: #### C MP #### [facility] [address] [address] [address] Prashant Kang Potassium [Moles/Vol] 4.6 mmol/L Normal 3.5-5.1 [facility] Comment on above: Performed By: #### C MP #### [facility] [address] [place] [address] Dr. Prashant Kang Protein [Mass/Vol] 7.9 g/dL Normal 6.4-8.2 [facility] Comment on above: Performed By: #### C MP #### [facility] [address], [place] [address] Dr. Prashant Kang Sodium [Moles/Vol] 141 mmol/L Normal 136-145 [facility] Comment on above: Performed By: #### C MP #### [facility] [address], [place] [address] Dr. Prashant Kang Urea nitrogen [Mass/Vol] 11.0 mg/dL Normal 7.0-18.0 [facility] Comment on above: Performed By: #### C MP #### [facility] [address], [place] [address] Dr. Prashant Kang Urea nitrogen/Creatinine [Mass ratio] 13.8 mg/mg Normal [facility] Comment on above: Performed By: #### C MP #### [facility] [address], [place] [address] Dr. Prashant Kang STREPT SCREENon 01-08-2022 STREP SCREEN A Negative Normal NEGATIVE [facility] Comment on above: Performed By: #### P TT, PT #### [facility] [address], [place] [address] Dr. Prashant Kang XR NECK SOFT TISSUEon [...] MIKE SAID Date: 2022-01-08 04:43 Normal [facility] Covid-19 PCR (CVDTB)on SARS-CoV-2 (COVID-19) RNA DENEEN+probe Ql (Unsp spec) Not detected Normal NOT DETECTED [facility] Comment on above: Result Comment: This test is not yet approved or cleared by the [place] FDA. When there are no FDA-approved or cleared tests available, and other criteria are met, FDA can make tests available under an emergency access mechanism called an Emergency Use Authorization (EUA). The EUA for this test is supported by the [place] of Health and Human Service's (HHS's) declaration [...] Performed By: #### P TT, PT #### [facility] [address] [place] [address] Dr. Prashant Kang Vital Signs Date Time Vital Sign Value Performing Clinician Faci lity 03-31-2024 13:44-0500 Body mass index (BMI) [Ratio] 40.75 kg/m2 Acosta Shania DO Work Phone: [facility] 03-31-2024 13:44-0500 Body weight 101.06 kg Acosta Shania DO Work Phone: [facility] 03-31-2024 13:44-0500 Diastolic blood pressure 70 mm[Hg] Acosta Shania DO Work Phone: [facility] 03-31-2024 13:44-0500 Systolic blood pressure 120 mm[Hg] Acosta Shania DO Work Phone: [facility] 03-24-2024 13:16-0500 Body mass index (BMI) [Ratio] 40.02 kg/m2 Acosta Shania DO Work Phone: [facility] 03-24-2024 13:16-0500 Body weight 99.25 kg Acosta Shania DO Work Phone: [facility] 03-24-2024 13:16-0500 Diastolic blood pressure 70 mm[Hg] Acosta Shania DO Work Phone: [facility] 03-24-2024 13:16-0500 Systolic blood pressure 120 mm[Hg] Acosta Shania DO Work Phone: [facility] 03-10-2024 13:45-0500 Body mass index (BMI) [Ratio] 40.38 kg/m2 Acosta Shania DO Work Phone: [facility] 03-10-2024 13:45-0500 Body weight 100.15 kg Acosta Shania DO Work Phone: [facility] 03-10-2024 13:45-0500 Diastolic blood pressure 76 mm[Hg] Acosta Shania DO Work Phone: [facility] 03-10-2024 13:45-0500 Systolic blood pressure 114 mm[Hg] Acosta Shania DO Work Phone: [facility] 02-25-2024 14:08-0400 Body mass index (BMI) [Ratio] 39.87 kg/m2 Kim Mckeon PA Work Phone: [facility] 02-25-2024 14:08-0400 Body weight 98.88 kg Kim Ml PA Work Phone: [facility] 02-25-2024 14:08-0400 Diastolic blood pressure 70 mm[Hg] Kim Ml PA Work Phone: [facility] 02-25-2024 14:08-0400 Systolic blood pressure 114 mm[Hg] Kim Mckeon PA Work Phone: [facility] 02-11-2024 11:10-0400 Body mass index (BMI) [Ratio] 40.2 kg/m2 Acosta Shania DO Work Phone: [facility] 02-11-2024 11:10-0400 Body weight 99.7 kg Acosta Shania DO Work Phone: [facility] 02-11-2024 11:10-0400 Diastolic blood pressure 64 mm[Hg] Acosta Shania DO Work Phone: [facility] 02-11-2024 11:10-0400 Systolic blood pressure 112 mm[Hg] Acosta Shania DO Work Phone: [facility] 01-14-2024 13:36-0400 Body mass index (BMI) [Ratio] 39.1 kg/m2 Acosta Shania DO Work Phone: [facility] 01-14-2024 13:36-0400 Body weight 96.98 kg Acosta Shania DO Work Phone: [facility] 01-14-2024 13:36-0400 Diastolic blood pressure 60 mm[Hg] Acosta Shania DO Work Phone: [facility] 01-14-2024 13:36-0400 Systolic blood pressure 120 mm[Hg] Acosta Shania DO Work Phone: [facility] 06-12-2023 13:54-0500 Body mass index (BMI) [Ratio] 40.6 kg/m2 Acosta Shania DO Work Phone: [facility] 06-12-2023 13:54-0500 Body weight 100.7 kg Acosta Shania DO Work Phone: [facility] 06-12-2023 13:54-0500 Diastolic blood pressure 74 mm[Hg] Acosta Shania DO Work Phone: [facility] 06-12-2023 13:54-0500 Systolic blood pressure 118 mm[Hg] Acosta Shania DO Work Phone: [facility] 05-04-2022 09:40-0500 Body temperature 97.2 [degF] JONNY Garcia MD Work Phone: [facility] 05-04-2022 09:40-0500 Body weight 88.81 kg JONNY Garcia MD Work Phone: [facility] 05-04-2022 09:40-0500 Diastolic blood pressure 73 mm[Hg] JONNY Garcia MD Work Phone: [facility] 05-04-2022 09:40-0500 Heart rate 67 /min JONNY Garcia MD Work Phone: [facility] 05-04-2022 09:40-0500 Respiratory rate 16 /min JONNY Garcia MD Work Phone: [facility] 05-04-2022 09:40-0500 SaO2% (BldA) [Mass fraction] 100 % JONNY Garcia MD Work Phone: [facility] 05-04-2022 09:40-0500 Systolic blood pressure 113 mm[Hg] JONNY Garcia MD Work Phone: [facility] Encounters Encounter Date Encounter Type Care Provider Facility Start: 03-31-2024 End: 03-31-2024 Bamboo flowsheet Acosta Shania DO Work Phone: [facility] Start: 03-31-2024 End: 03-31-2024 Bamboo flowsheet Acosta Shania DO Work Phone: [facility] Start: 03-31-2024 End: 03-31-2024 Office outpatient visit 15 minutes Acosta Shania [...] Start: 02-26-2024 End: 02-26-2024 Patient encounter procedure [facility] Comment on above: 24 [...] 01-14-2024 ambulatory ACOSTA SHANIA Not Available Start: 01-14-2024 End: 01-14-2024 Office outpatient visit 15 minutes Acosta Shania DO Work Phone: [facility] Comment on above: 25 weeks gestation o f ; Diabetes mellitus screening; First trimester Start: 01-11-2024 End: 01-11-2024 [facility] Start: 12-17-2023 End: 12-17-2023 ambulatory ACOSTA [...] encounter [facility]sl[facility] Comment on above: Appointment Confirma tion Start: 02-08-2023 End: 02-08-2023 ambulatory SARA MEDELLIN Facility:[facility] Start: 02-01-2023 End: 02-01-2023 ambulatory SARA MEDELLIN Facility:[facility] Start: 11-09-2022 Telephone encounter [facility]slan [facility] Comment on above: Appointment Confirma [...] 05-04-2022 End: 05-04-2022 Patient encounter procedure Arslan Felipe Garcia MD Work Phone: Radiation Oncology Comment on above: Thyroid cancer (HCC) (Primary Dx) Start: 04-25-2022 Telephone encounter G Felipe Garcia MD Work Phone: [facility] Comment on above: Missed Appointment Start: 04-20-2022 Patient encounter procedure [facility] Provider [facility] Department Start: 04-11-2022 End: 04-11-2022 Patient encounter procedure Lab/[facility] [place] Zhao Work Phone: Radiation Oncology Comment on above: Thyroid cancer (HCC) (Primary Dx) Start: 03-09-2022 Encounter for preprocedural laboratory examination DR CHARLIE [facility] Start: 03-07-2022 End: 03-08-[address] [...] Phone: Start: 02-08-2024 ALL THYROID STIM HORMONE Caosta Shania DO Work Phone: Start: 01-14-2024 Urnls dip stick/tabl et rgnt non-auto w/o micrscp Acosta Shania DO Work Phone: Start: 11-13-2023 Cytp cerv/vag auto t hin layer prep mnl screen Acosta Shania DO Work Phone: Plan of Treatment Date Care Activity Detail Author Start: 01-10-2025 Adult BMI Screening Adult BMI Screen ing [facility] Start: 01-10-2025 Tobacco Screening Tobacco Screening [facility] Start: 05-12-2024 End: 05-12-2024 ambulatory 05/12/2024 1:40 PM EST Visit [facility] [address] [place] [address] Acosta Jauregui, DO [address] [place] [address] [facility] Start: 04-14-2024 End: 04-14-2024 Patient encounter procedure 04/14/2024 1:20 PM EST Routine [facility] [address] [place] [address] Acosta Jauregui, DO [address], [place] [id number] [facility] Start: 03-31-2024 End: 03-31-2025 Strep B DNA probe, amplification Strep B DNA probe, amplification Lab Routine Third trimester Expected: 03/31/2024 (Approximate), Expires: 03/31/2025 [facility] Work Phone: Comment on above: Expected: 03/31/2024 (Approximate), Expires: 03/31/2025 Start: 03-31-2024 End: 03-31-2024 Patient encounter procedure [facility] Comment on above: Arrived Start: 03-24-2024 End: 03-24-2024 Patient encounter procedure 03/24/2024 1:00 PM EST Routine [facility] [address] [place] [id number] Acosta Jauregui, DO [address], [place] [id number] [facility] Start: 03-10-2024 End: 03-10-2024 Patient encounter procedure 03/10/2024 1:00 PM EST Routine [facility] [address] [place] [id number] Acosta Jauregui, DO [address], [place] [id number] [facility] Start: 02-25-2024 End: 02-24-2025 US biophysical profile w non stress test US biophysical profile w non stress test Imaging Routine Thyroid disease (CMS/HCC) Expected: 02/25/2024 (Approximate), Expires: 02/24/2025 [facility] Work Phone: Comment on above: Expected: 02/25/2024 (Approximate), Expires: 02/24/2025 Start: 02-25-2024 End: 02-25-2024 Patient encounter procedure [facility] Comment on above: Arrived Start: 02-11-2024 End: 02-10-2025 US biophysical profile w non stress test US biophysical profile w non stress test Imaging Routine Thyroid disease (CMS/HCC) 29 weeks gestation of History of placental abruption Expected: 02/11/2024 (Approximate), Expires: 02/10/2025 [facility] Work Phone: Comment on above: Expected: 02/11/2024 (Approximate), Expires: 02/10/2025 Start: 02-11-2024 End: 02-10-2025 US for US OB SCAN FOR GROWTH Imaging Routine Thyroid disease (CMS/HCC) 29 weeks gestation of History of placental abruption Expected: 02/11/2024 (Approximate), Expires: 02/10/2025 [facility] Comment on above: Expected: 02/11/2024 (Approximate), Expires: 02/10/2025 Start: 02-11-2024 End: 02-11-2024 Patient encounter procedure [facility] Comment on above: Arrived Start: 01-14-2024 End: 01-13-2025 CBC panel - Blood by Automated count CBC Lab Routine Diabetes mellitus screening Expected: 01/14/2024 (Approximate), Expires: 01/13/2025 [facility] Work Phone: Comment on above: Expected: 01/14/2024 (Approximate), Expires: 01/13/2025 Start: 12-30-2023 Covid-19 Vaccine ( season) Covid-19 Vaccine () [facility] Start: 12-30-2023 Influenza vaccination [facility] Start: 08-15-2023 End: 11-14-2023 Thyroglobulin and Thyrogobulin Ab panel - Serum or Plasma THYROGLOBULIN, SERUM WITH REFLEX TO IA OR LC-MS/MS Lab Routine Thyroid cancer (HCC) Expected: 08/15/2023, Expires: 11/14/2023 [facility] Work Phone: Comment on above: Expected: 08/15/2023 , Expires: 11/14/2023 Start: 08-15-2023 End: 11-14-2023 Thyrotropin [Units/volume] in Serum or Plasma THYROID STIMULATING HORMONE Lab Routine Thyroid cancer (HCC) Expected: 08/15/2023, Expires: 11/14/2023 [facility] Work Phone: Comment on above: Expected: 08/15/2023 , Expires: 11/14/2023 Start: 08-15-2023 End: 11-14-2023 Thyroxine (T4) [Mass/volume] in Serum or Plasma T4/THYROXINE Lab Routine Thyroid cancer (HCC) Expected: 08/15/2023, Expires: 11/14/2023 [facility] Work Phone: Comment on above: Expected: 08/15/2023 , Expires: 11/14/2023 Start: 06-26-2023 End: 06-26-2023 Professional / ancillary services management 06/26/2023 1:00 PM EST Ancillary Procedure [facility] [address] [place] [address] [facility] Start: 06-12-2023 End: 06-12-2024 US for US PELVIS-TRANSVAG IF INDICATED Imaging Routine Amenorrhea Expected: 06/12/2023 (Approximate), Expires: 06/12/2024 [facility] Comment on above: Expected: 06/12/2023 (Approximate), Expires: 06/12/2024 Start: 04-30-2023 Behavioral Health Screening Behavioral Health Screening [facility] Start: 04-30-2023 Depression Assessment Depression Ass essment [facility] Start: 12-29-2022 Covid-19 Vaccine ( season) Covid-19 Vaccine ( season) [facility] Start: 12-29-2022 Influenza vaccination [facility] Start: 07-02-2022 End: 09-01-2022 THYROGLOBULIN BY MASS SPECTROMETRY THYROGLOBULIN BY MASS SPECTROMETRY Lab Routine Thyroid cancer (HCC) Expected: 07/02/2022, Expires: 09/01/2022 [facility] Work Phone: Comment on above: Expected: 07/02/2022 , Expires: 09/01/2022 Start: 07-02-2022 End: 09-01-2022 Thyrotropin [Units/volume] in Serum or Plasma TSH BLD Lab Routine Thyroid cancer (HCC) Expected: 07/02/2022, Expires: 09/01/2022 [facility] Work Phone: Comment on above: Expected: 07/02/2022 , Expires: 09/01/2022 Start: 07-02-2022 End: 09-01-2022 Thyroxine (T4) [Mass/volume] in Serum or Plasma T4/THYROXINE BLOOD Lab Routine Thyroid cancer (HCC) Expected: 07/02/2022, Expires: 09/01/2022 [facility] Work Phone: Comment on above: Expected: 07/02/2022 , Expires: 09/01/2022 Start: 04-30-2022 [facility] Start: 2022 HPV TESTING HPV TESTING [facility] Start: 2022 Screening for malign ant neoplasm of cervix HPV Testing [facility] Start: 12-29-2021 Influenza vaccination INFLUENZA (#1) [facility] Start: 04-30-2021 DEPRESSION ASSESSMENT DEPRESSION ASS [facility] Start: 2013 PAP TESTING PAP TESTING [facility] Start: 2013 Screening for malign ant neoplasm of cervix [facility] Start: 2011 DTaP,Tdap and Td Vaccines (1 - Tdap) DTaP,Tdap and Td Vaccines (1 - Tdap) [facility] Start: 2011 Hepatitis B Vaccine (1 of 3 - 19+ 3-dose series) Hepatitis B Vaccine (1 of 3 - 19+ 3-dose series) [facility] Start: 2011 Urine microalbumin profile [facility] Start: 2010 Adult BMI Follow Up Plan Adult BMI Follow Up Plan [facility] Start: 2010 Anxiety Screening Anxiety Screening [facility] Start: 2010 Depression Screening Depression Scre ing [facility] Start: 2010 HEPATITIS C SCREENING HEPATITIS C [facility] Start: 2010 Hepatitis C screening Hepatitis C [facility] Start: 2010 HIV SCREENING HIV SCREENING [facility] Start: 2010 HIV screening HIV Screening [facility] Start: 2004 Depression Screening Depression Scre ening [facility] Start: 1998 PNEUMOCOCCAL (1 - PCV) PNEUMOCOCCAL (1 - PCV) [facility] Start: 1998 Pneumococcal vaccination [facility] Start: 1992 COVID-19 VACCINE (#1) COVID-19 VACCI NE (#1) [facility] Start: 1992 HEPATITIS B (1 of 3 - 3-dose series) HEPATITIS B (1 of 3 - 3-dose series) [facility] Start: 1992 Hepatitis B Vaccine (1 of 3 - 3-dose series) Hepatitis B Vaccine (1 of 3 - 3-dose series) [facility] Start: 1992 [facility] W Auto Different ial panel - Blood CBC and differential Lab Routine Amenorrhea Ordered: 06/12/2023 [facility] Comment on above: Ordered: 06/12/2023 hCG, quantitative, hCG, quantitative, Lab Routine Amenorrhea Ordered: 06/12/2023 [facility] Comment on above: Ordered: 06/12/2023 Hemoglobin A1c measurement Hemoglobin A1c Lab Routine Amenorrhea Ordered: 06/12/2023 [facility] Comment on above: Ordered: 06/12/2023 Hemoglobin A1c/Hemoglobin.total in Blood Hemoglobin A1c Lab Routine Diabetes mellitus screening Ordered: 01/14/2024 [facility] Comment on above: Ordered: 01/14/2024 Prolactin Prolactin Lab Ro utine Amenorrhea Ordered: 06/12/2023 [facility] Comment on above: Ordered: 06/12/2023 Thyrotropin [Units/volume] in Serum or Plasma TSH Lab Routine Amenorrhea Ordered: 06/12/2023 [facility] Work Phone: Comment on above: Ordered: 06/12/2023 [facility] Payers Date Payer Category Payer Medicaid HMO [employer] Member Subscriber Plan / Payer (Effective 2022-Present) Name: CortezAmanda Relation to Subscriber: Self Name: CortezAmanda jang Payer ID: [id number] (NAIC) Group ID: Not on file Type: Not on file Address: [place] [id number] [id number] 2020 Medicaid [id number] 2020 Medicaid (Managed Care) [employer] [id number] 1992 Unknown [id number] 2.16.840.1.581592.3.579.2. 593 1992 Unknown [id number] 2.16.840.1.748832.3.579.2. 593 1992 Unknown [id number] 2.16.840.1.997886.3.579.2. 593 1992 Unknown [id number] 2.16.840.1.070291.3.579.2. 593 1992 Unknown [id number] 2.16.840.1.582285.3.579.2. 593 1992 Unknown [id number] 2.16.840.1.052421.3.579.2. 593 1992 Unknown [id number] 2.16.840.1.953212.3.579.2. 593 1992 Unknown [id number] 2.16.840.1.380793.3.579.2. 593 1992 Unknown [id number] 2.16.840.1.578277.3.579.2. 593 1992 Unknown [id number] 2.16.840.1.881207.3.579.2. 593 1992 Unknown [id number] 2.16.840.1.785960.3.579.2. 593 1992 Unknown [id number] 2.16.840.1.677140.3.579.2. 593 1992 Unknown [id number] 2.16.840.1.626575.3.579.2. 593 1992 Unknown [id number] 2.16.840.1.197781.3.579.2. 593 1992 Unknown [id number] 2.16.840.1.811560.3.579.2. 593 1992 Unknown [id number] 2.16.840.1.413525.3.579.2. 1286 1992 Unknown [id number] 2.16.840.1.054599.3.579.2. 1286 1992 Unknown [id number] 2.16.840.1.095257.3.579.2. 1259 1992 Unknown [id number] 2.16.840.1.355349.3.579.2. 1259 1992 Unknown [id number] 2.16.840.1.937206.3.579.2. 1259 1992 Unknown [id number] 2.16.840.1.086102.3.579.2. 1259 1992 Unknown [id number] 2.16.840.1.730301.3.579.2. 1259 1992 Unknown [id number] 2.16.840.1.678844.3.579.2. 9 1992 Unknown [id number] 2.16.840.1.849550.3.579.2. 1259 1992 Unknown [id number] 2.16.840.1.248851.3.579.2. 1259 1992 Unknown [id number] 2.16.840.1.405548.3.579.2. 1259 1992 Unknown [id number] 2.16.840.1.882832.3.579.2. 1259 1992 Unknown [id number] 2.16.840.1.134328.3.579.2. 1259 1959 Unknown [id number] Social History Date Type Detail Facility Start: 04-11-2022 End: 09-23-2022 Tobacco smoking status NHIS Smokes tobacco daily [facility] History of tobacco use Cigarette Smoker [facility] Start: 04-11-2022 End: 09-14-2023 Cigarettes smoked current (pack per day) - Reported 1 [facility] Start: 04-11-2022 End: 09-23-2022 Tobacco use and exposure Smokeless tobacco non-user [facility] Start: 04-11-2022 End: 01-14-2024 Alcohol intake Current drinker of alcohol (finding) [facility] Start: 04-11-2022 Alcohol Comment socially [facility] Start: 1990 Sex Assigned At Not on file [facility] Start: 05-04-2022 End: 09-14-2023 Tobacco use panel [facility] Adult Depression Screening Assessment 0 [facility] Start: 10-03-2022 Alcohol Comment caffeine intak e: 1-2 cups per day [facility] Start: 1990 Sex Assigned At [facility] Start: 10-04-2022 Gender identity Identifies as female gender (finding) [facility] Start: 08-06-2023 [facility] Start: 01-11-2024 Alcoholic beverage intake Ex-drinker (finding) [facility] Start: 08-26-2018 Sex Female (finding) [facility] Clinical Notes 03-07-2022 to 03-31-2024 Kerline Clement LPN - 03/31/2024 1:30 PM Noah Rader LPN - 03/24/2024 1:00 PM Noah [...] nursing note reviewed. Exam conducted with a health administrator present. Vitals: Estimated body mass index is [...] week for routine OB appointment Documented by Kelrine Clement LPN on behalf of: Aocsta Jauregui DO documented in this encounter [facility] 03-24-2024 History of Present illness Narrative Reason [...] Problems Diagnosis Date Noted Papillary thyroid carcinoma ([facility]) 09/23/2022 Thyroid disease (CMS/[facility]) 09/23/2022 Bilateral tinnitus 10/04/2022 Asymmetric SNHL (sensorineural [...] nursing note reviewed. Exam conducted with a health administrator present. Vitals: Estimated body mass index is [...] Acosta Jauregui DO documented in this encounter [facility] 03-10-2024 History of Present illness Narrative Reason [...] (CMS/HCC) Thyroid mass (CMS/HCC) 09/23/2022 Thyroid nodule ([facility]) HISTORY PAST MEDICAL HISTORY SOCIAL HISTORY Past [...] nursing note reviewed. Exam conducted with a health administrator present. Vitals: Estimated body mass index is [...] 2 weeks. Patient will continue N[facility]BPP at [facility] as well. Documented by Sylvia Rader LPN on behalf of: Acosta Jauregui DO documented in this encounter [facility] 02-26-2024 History of Present illness Narrative [facility] Patient visited the Food Clinic and received food documented in this encounter [facility] 02-25-2024 History of Present illness Narrative Reason [...] of: MAXIMILIAN Lombardo documented in this encounter [facility] 02-11-2024 History of Present illness Narrative Reason [...] Problems Diagnosis Date Noted Papillary thyroid carcinoma ([facility]/HCC) 09/23/2022 Bilateral tinnitus 10/04/2022 Asymmetric SNHL (sensorineural hearing loss) 12/13/2022 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 Exam conducted with a health administrator present. Vitals: Estimated body mass index is [...] Acosta Jauregui DO documented in this encounter [facility] 01-24-2024 Telephone encounter Note I notified Amanda of Dr. Garcia's response. She will call after she delivers in March 2024 to scheduled follow up. Iaris Turpin RN [facility] 01-24-2024 Miscellaneous Notes I notified Amanda of Dr. Garcia's response. She will call after she delivers in March 2024 to scheduled follow up. Irais Turpin RN Amanda called stating she is currently and is being followed very closely by [employer]PER[employer] in [place] and her local [employer]PER[employer]. She states her high risk is d/t [...] Irais Turpin RN documented in this encounter [facility] 01-23-2024 Telephone encounter Note Amanda called stating she is currently and is being followed very closely by [employer] in [place] and her local [employer]. She states her high risk is d/t [...] possible lab work? Thanks Irais Turpin RN [facility] 01-14-2024 History of Present illness Narrative Reason for [...] nursing note reviewed. Exam conducted with a health administrator present. Vitals: Estimated body mass index is 39.1 kg/m as calculated from the following: Height as of 23: 5' 2 . Weight as of this encounter: 213 lb 12.8 oz. BP: 120/60 Patient's last menstrual period was 06/11/2023. ASSESSMENT & PLAN ICD-10-CM 1. 25 weeks gestation of Z3A.25 POCT urinalysis dipstick manually resulted 2. Diabetes mellitus screening Z13.1 CBC Hemoglobin A1c CANCELED: Glucose tolerance, 1 hour Patient presents today for a routine obstetrics appointment. Patient is currently 25w0d with a Estimated Date of Delivery: 04/28/24. Discussed recent MFM appointment, weight loss and plan of care moving forward. Patient is now back on her thyroid medications and will have labs redrawn for TSH/CBC and A1c as patient voiced that she is unable to obtain 1 hour gtt as it makes her sick. Patient to return to clinic in 3 weeks for routine OB appointment. Patient would like to have refill on PNV to be sent to [facility]. Documented by Sylvia Rader LPN on behalf of: Acosta Jauregui DO documented in this encounter [facility] 11-13-[address] Christine office received ref and they will be calling patient to schedule appointment. Records faxed to Dr. Arteaga. Lawanda please send records to [facility] in your box Images from the original note were not included. Spoke to pt. She would like to see endocrinology in [place]. Pt's OB did adjust synthroid recently and has been monitoring labs. TREASURE- please sign pended order. PSS- please arrange visit when order is signed. KAREN Peters Tiffany Weyer, Angela, RN Previous Messages ----- Message ----- From: Arslan Garcia MD Sent: 11/02/2023 12:08 PM EDT To: Obi Dunlap; [facility] Nurse [place] Given what sounds like patient is in first trimester and ongoing concerns of breast-feeding recommend she follow-up with endocrinology. documented in this encounter [facility] 11-13-[address] Christine office received ref and they will be calling patient to schedule appointment. [facility] 11-12-2023 Telephone encounter Note Records faxed to Dr. Arteaga. [facility] 11-12-2023 Telephone encounter Note Lawanda please send records to [employer] in your box [facility] 11-12-2023 Telephone encounter Note Images from the original note were not included. Spoke to pt. She would like to see endocrinology in [place]. Pt's OB did adjust synthroid recently and has been monitoring labs. TREASURE- please sign pended order. PSS- please arrange visit when order is signed. KAREN Peters, Danna Mcdowell RN Previous Messages ----- Message ----- From: Arslan Garcia MD Sent: 11/02/2023 12:08 PM EDT To: Obi Kern Sec; Radt [facility] Nurse Pool Given what sounds like patient is in first trimester and ongoing concerns of breast-feeding recommend she follow-up with endocrinology. [facility] 10-24-2023 Note HNO ID: [id number] Author: Arslan GARCIA MD Service: ? Author Type: Physician Type: Progress Notes Filed: 11/02/2023 12:08 Note Text: Unable to reach patient. [facility] 10-24-2023 History of Present illness Narrative Unable to reach patient. documented in this encounter [facility] 08-14-2023 Miscellaneous Notes TREASURE- please sign [...] Danna Pitts RN documented in this encounter [facility] 07-19-2023 Miscellaneous Notes Pt called to request labs sent to [facility]. Faxed to central scheduling. Edna Sal RN documented in this encounter [facility] 06-12-2023 History of Present illness Narrative [...] Acosta Jauregui DO documented in this encounter [facility] 02-14-2023 Miscellaneous Notes Images from the original note were not included. Patient is scheduled for appointments Arslan Garcia MD [facility] [place]; Obi Genao 4 months with labs. Orders have been placed in [facility]. documented in this encounter [facility] 02-08-2023 Note HNO ID: [id number] Author: Arslan Garcia MD Service: ? Author [...] Time Spent: 6 minutes Arslan Garcia MD [facility] 11-09-2022 Miscellaneous Notes Images from the original note were not included. Patient is called and scheduled. Arslan Garcia MD [facility] Nurse [place]; Obi Genao 8 weeks with labs, orders placed, thank you documented in this encounter [facility] 07-17-2022 Miscellaneous Notes Appointment has been changed to phone appt. Tj Funez Pt called in requesting to be switched to a phone visit tomorrow. Her kids are on spring and a couple of them are sick. Labs have been done and resulted. PSS- please change to phone visit for tomorrow. Danna Pitts RN documented in this encounter [facility] 05-04-2022 History of Present illness Narrative Radiation Oncology - FollowupNote PATIENT NAME: Amanda Cortez PATIENT : 1990 DIAGNOSIS: Thyroid cancer, classic papillary thyroid carcinoma, status post total thyroidectomy and right neck exploration on 03/07/2022, stage I [id number]. HPI: Patient returns after further work-up and [...] and right neck exploration on 03/07/2022, stage [id number]. Patient does have significant thyroglobulin antibody however [...] for this encounter. documented in this encounter [facility] 04-25-2022 Miscellaneous Notes Patient had been rescheduled. Tj Funez Images from the original note were not included. Called patient to reschedule, LMOV. MD Jessica Jenkins [facility] Nurse [place]; Tj Funez Unable to reach please reschedule documented in this encounter [facility] 04-11-2022 Nurse Note Amanda Cortez presents in office today for: Lab Draw during Office Visit . Ordering Provider: Felipe Garcia M.D. Test (s) ordered: TG Method for obtaining blood: Phlebotomy was performed, accessing right antecubital vein. Needle removed intact. Dressing secured. Patient denies discomfort, dizziness, light-headedness or weakness and left the department without assist. Danna Pitts RN documented in this encounter [facility] 03-07-2022 Note OPERATIVE NOTE OPERATION DATE: [...] the recovery room in good condition. [facility] Evaluation note Diagnosis Thyroid cancer (HCC)- Primary Malignant neoplasm of thyroid gland [facility]roid [facility] ([facility]CC)- Primary Malignant neoplasm of thyroid gland [facility] Diagnosis Missed menses Amenorrhea Absence of menstruation documented in this encounter [facility]* Diagnosis Thyroid cancer (HCC)- Primary Malignant neoplasm of thyroid gland [facility] Diagnosis Thyroid cancer (HCC)- Primary Malignant neoplasm of thyroid gland [facility] Diagnosis Thyroid cancer (HCC)- Primary Malignant neoplasm of thyroid gland [facility] Diagnosis Third trimester state, incidental Thyroid disease (CMS/HCC) Unspecified disorder of thyroid 29 weeks gestation of History of placental abruption Non compliance w medication regimen documented in this encounter [facility]* Diagnosis Third trimester state, incidental 31 weeks gestation of Thyroid disease (CMS/HCC) Unspecified disorder of thyroid [facility] Diagnosis 24 weeks gestation of Food insecurity [facility] Third trimester state, incidental 33 weeks gestation of Thyroid disease (CMS/HCC) Unspecified disorder of thyroid [facility] Diagnosis 35 weeks gestation of Third trimester state, incidental [facility] Diagnosis 36 weeks gestation of Third trimester state, incidental [facility]* Diagnosis 25 weeks gestation of Diabetes mellitus screening Screening for diabetes mellitus First trimester state, incidental [facility]ructionsNot on [facility]ocumented [facility] Purpose Family History No Family History Records FoundNo Family History Records FoundNo Family History Records FoundNo Family History Records Found Advance Directives No Advanced Directives Records FoundNo Advanced Directives Records FoundNo Advanced Directives Records FoundNo Advanced Directives Records Found Reason for Referral Specialty Diagnoses / Procedures Referred By Contmaria e t Referred To Contact Endocrinology Diagnoses Thyroid cancer (HCC) Procedures CONSULT TO ENDOCRINOLOGY OFFICE/OUTPATIENT [facility] 60 MINUTES Arslan Garcia MD [address] [place] [address] [place] [address] Referral ID Status Reason Start Date Expiration Date Visits Requested Visits Authorized [id number] Authorized PCP Requested Referral 11/12/2023 11/11/2024 1 1 Additional Source Comments Source Comments (unrecognize d section and content) In the event this informatio n is protected by the Federal Confidentiality of Alcohol and Drug Abuse Patient Records regulations: The Federal rules restrict any use of the information to criminally investigate or prosecute any alcohol or drug abuse patient.[facility] the event this information is protected by the Federal Confidentiality of Alcohol and Drug Abuse Patient Records regulations: The Federal rules restrict any use of the information to criminally investigate or prosecute any alcohol or drug abuse patient.[facility] the event this information is protected by the Federal Confidentiality of Alcohol and Drug Abuse Patient Records regulations: The Federal rules restrict any use of the information to criminally investigate or prosecute any alcohol or drug abuse patient.[facility] the event this information is protected by the Federal Confidentiality of Alcohol and Drug Abuse Patient Records regulations: The Federal rules restrict any use of the information to criminally investigate or prosecute any alcohol or drug abuse patient.[facility] the event this information is protected by the Federal Confidentiality of Alcohol and Drug Abuse Patient Records regulations: The Federal rules restrict any use of the information to criminally investigate or prosecute any alcohol or drug abuse patient.[facility] the event this information is protected by the Federal Confidentiality of Alcohol and Drug Abuse Patient Records regulations: The Federal rules restrict any use of the information to criminally investigate or prosecute any alcohol or drug abuse patient.[facility] the event this information is protected by the Federal Confidentiality of Alcohol and Drug Abuse Patient Records regulations: The Federal rules restrict any use of the information to criminally investigate or prosecute any alcohol or drug abuse patient.[facility] the event this information is protected by the Federal Confidentiality of Alcohol and Drug Abuse Patient Records regulations: The Federal rules restrict any use of the information to criminally investigate or prosecute any alcohol or drug abuse patient.[facility] the event this information is protected by the Federal Confidentiality of Alcohol and Drug Abuse Patient Records regulations: The Federal rules restrict any use of the information to criminally investigate or prosecute any alcohol or drug abuse patient.[facility] the event this information is protected by the Federal Confidentiality of Alcohol and Drug Abuse Patient Records regulations: The Federal rules restrict any use of the information to criminally investigate or prosecute any alcohol or drug abuse patient.[facility] the event this information is protected by the Federal Confidentiality of Alcohol and Drug Abuse Patient Records regulations: The Federal rules restrict any use of the information to criminally investigate or prosecute any alcohol or drug abuse patient.[facility] the event this information is protected by the Federal Confidentiality of Alcohol and Drug Abuse Patient Records regulations: The Federal rules restrict any use of the information to criminally investigate or prosecute any alcohol or drug abuse patient.[facility] Reason for Visit (unrecogniz ed section [...] Care Teams (unrecognized sec tion and content) Placing Judge Relationship Specialty Start Date End Date Sara Medellin MD [address] [id number] PCP - General Family Medicine 04/11/22 Placing Judge Relationship Specialty Start Date End Date Sara Medellin MD [address] [id number] PCP - General Family Medicine 04/11/22 Placing Judge Relationship Specialty Start Date End Date Sara Medellin MD [address] [id number] PCP - General Family Medicine 04/11/22 Placing Judge Relationship Specialty Start Date End Date Sara Medellin MD PCP - General Family Medicine 04/11/22 Placing Judge Relationship Specialty Start Date End Date Sara Medellin MD PCP - General Family Medicine 04/11/22 Placing Judge Relationship Specialty Start Date End Date Sara Medellin MD [address] [facility] [place] [address] PCP - General Family Medicine 10/03/22 Placing Judge Relationship Specialty Start Date End Date Sara Medellin MD PCP - General Family Medicine 04/11/22 Placing Judge Relationship Specialty Start Date End Date Sara Medellin MD PCP - General Family Medicine 04/11/22 Placing Judge Relationship Specialty Start Date End Date Sara Medellin MD PCP - General Family Medicine 04/11/22 Placing Judge Relationship Specialty Start Date End Date Sara Medellin MD [address] [facility] [place] [address] PCP - General Family Medicine 10/03/22 Placing Judge Relationship Specialty Start Date End Date Sara Medellin MD [address] [facility] [place] [address] PCP - General Family Medicine 10/03/22 Placing Judge Relationship Specialty Start Date End Date Sara Medellin MD [address] [facility] [place] [address] PCP - General Family Medicine 10/03/22 Placing Judge Relationship Specialty Start Date End Date Sara Medellin MD [address] [place] [place] [address] PCP - General 01/10/24 Placing Judge Relationship Specialty Start Date End Date Sara Medellin MD [address] [facility] [place] [address] PCP - General Family Medicine 10/03/22 Placing Judge Relationship Specialty Start Date End Date Sara Medellin MD [address] [facility] [place] [address] PCP - General Family Medicine 10/03/22 Placing Judge Relationship Specialty Start Date End Date Sara Medellin MD [address] [facility] [place] [address] PCP - General Family Medicine 10/03/22 INFORMATION SOURCE (unrecogn ized section and content) DATE CREATED AUTHOR 09/02/2022 [facility] DATE CREATED AUTHOR AUTHOR'S ORGANIZ ATION 01/11/2024 [facility] DATE CREATED AUTHOR AUTHOR'S ORGANIZ ATION 01/13/2024 [facility] DATE CREATED AUTHOR AUTHOR'S ORGANIZ ATION 04/01/2024 [facility] EPIC FOR RECORDS PERTAINING TO PATIENTS [...] BE BASED ON THE PRIMARY CLINICAL RECORDS. [employer] [facility]. provides no warranty or guarantee of the accuracy or completeness of information in this document.
--- NOTE | 2024-04-11 13:08 | US_ITS ---
[address] [address] Patient Name: LITO RAMIREZ MRN: [id number] date: 1990 Sex: F Assigned Patient Location: [facility] Current Patient Location: [facility] Accession/Order Number: [id number] Exam Date: 04/11/2024 13:09 Report Date: 04/11/2024 13:50 At the request of: MARTINE LESTER Procedure: US OB BPP w non-stress EXAMINATION: US OB BPP w non-stress HISTORY: Thyroid disease COMPARISON: No relevant comparison available. TECHNIQUE: Ultrasound biophysical profile was performed in the radiology department. non-reactive stress testing was performed by nursing staff in the birthing center. FINDINGS: BREATHING MOVEMENTS: 2 GROSS BODY MOVEMENTS: 2 TONE: 2 QUALITATIVE AMNIOTIC FLUID VOLUME: 2 PRESENTATION: CEPHALIC HEART RATE: 131.07 bpm AMNIOTIC FLUID VOLUME: 14.3 cm GESTATIONAL AGE: 37 weeks 4 days US/US OB BPP w non-stress IMPRESSION: Total biophysical profile score: 8 Electronically authenticated by: SHAILESH EMERY Date: 04/11/2024 13:50
[2024-04-11 13:28] VITALS: BP 96/72; PULSE 85
== END 2024-04-11 13:52 | disposition home or self-care (01) ==
LOC: FBCO 06:47 → FBC 13:05
PROVIDERS: PCP Family Medicine; Visit Provider Obstetrics & Gynecology
DX: O99.283 Endocrine, nutritional and metabolic diseases complicating pregnancy, third trimester (principal); Z3A.37 37 weeks gestation of pregnancy
CPT/HCPCS: 76818

== ENCOUNTER 2024-04-18 00:01 | Inpatient (IN) | payer OTHER, SELFPAY ==
[2024-04-18] VITALS (45 sets, daily range): BP systolic 88–118; BP diastolic 50–71; PULSE 54–91; TEMP 36.2–37.1
--- OUTSIDE RECORDS SUMMARY | 2024-04-18 00:03 | XMS_ITS | CCD ---
Author Organization [facility] Care Team Providers Care Cloth Finishing Range Tender Name Role Phone Sara Medellin MD Primary Care Provider [phone] RAIZA, DR GUERRA Consulting Unavailable HOY ., [...] Attending Unavailable TIMMIS, DR GUERRA Admitting Unavailable MORGOHoracio, JOSE Consulting Unavailable TEGAN, YAMILET Consulting Unavailable [...] Unavailable Sara Medellin MD Primary Care Provider [phone] Sara Medellin MD Primary Care Provider [phone] Sara Medellin MD Primary Care Provider [phone] SARA MEDELLIN Primary Care Unavailable Arslan GARCIA Attending Unavailable SARA MEDELLIN Primary Care Unavailable Arslan GARCIA Attending Unavailable SARA MEDELLIN Primary Care Unavailable YFN MICHELLE Attending Unavailable SHANIA, ACOSTA R Referring Unavailable SARA MEDELLIN Primary Care Unavailable SHANIA, ACOSTA R Referring Unavailable SARA MEDELLIN Primary Care Unavailable Sara Medellin MD Primary Care Provider [phone] SHANIA, ACOSTA Attending Unavailable SHANIA, ACOSTA Attending Unavailable SHANIA, ACOSTA Attending Unavailable SHANIA, ACOSTA Attending Unavailable SHANIA, ACOSTA Attending Unavailable SHANIA, ACOSTA Attending Unavailable KIM MCKEON Attending Unavailable SHANIA, ACOSTA Attending Unavailable SHANIA, ACOSTA Attending Unavailable SHANIA, ACOSTA Attending Unavailable SHANIA, ACOSTA Attending Unavailable Allergies Allergy Classification Reported Allergen(s) Allergy Type Date of Onset Reaction(s) Facility (20 sources) Cefaclor; Translations: [CEFACLOR] Drug Allergy 12-13-20 22 Hives, Shortness of Breath, Anaphylaxis [facility] (13 sources) Penicillins; Translations: [PENICILLINS] Drug Allergy 04-11-20 22 Hives, Shortness of Breath [facility] (2 sources) Cefaclor Drug Allergy 05-10-19 14 [facility] (2 sources) Penicillins Drug allergy (disorder) 05-10-19 14 [facility] (20 sources) Penicillin G sodium; Translations: [PENICILLIN G SODIUM] Allergy to substance 09-24-19 Anaphylaxis [facility] (20 sources) Cephalosporins (Antibiotic); Translations: [CEPHALOSPORINS] Propensity [...] aspirin 81 mg delayed release oral tablet (20 sources) Platelet Aggregation Inhibitor, Nonsteroidal Anti-inflammatory Drug Start: 10-16-2023 End: 10-15-2024 take 1 tablet by mouth once daily aspirin 81 MG EC tablet Indications: First trimester Take 1 tablet (81 mg) by mouth Daily 30 tablet 10/16/2023 10/15/2024 Active aspirin 81 mg ch ewable tablet Chew 1 tablet (81 mg total) and swallow in the morning. Active azithromycin 250 mg oral tablet (9 sources) Macrolide Antimicrobial Start: 04-10-2024 azithromycin (Zithromax Z-Jacobo) 250 MG tablet Indications: Sinusitis, unspecified chronicity, unspecified location As directed 6 tablet 04/10/2024 Active Start: 02-26-2024 End: 03-24-2024 azithromycin (Zithromax Z-Pa k) 250 MG tablet Indications: Sinusitis, unspecified chronicity, unspecified location As directed 6 tablet 02/26/2024 03/24/2024 Discontinued benzocaine 0.075 mg/mg oral gel (5 sources) Standardized Chemical Allergen benzocaine (Baby Orajel) 7.5 % oral gel Use 1 application in the mouth or throat 3 (three) times a day as needed for mucositis Active citalopram 20 mg oral tablet (20 sources) Serotonin Reuptake Inhibitor Start: take 1 tablet by mouth once daily [...] tablet 11 03/10/2024 03/10/2025 Active Start: 10-16-2023 End: 01-14-2024 take 1 tablet by mouth before mealtime [...] BY MOUTH ONCE DAILY BEFORE BREAKFAST 08/16/2023 Active Start: 05-04-2022 take 1 tablet by [...] PRODUCT (12 sources) OTC PRODUCT Supplement by [employer] for breast feeding Active OTC PRODUCT Supp lement by [employer] for breast feeding 0 Active Comment on above: Supplement by [employer] for breast feeding 27-1 MG tablet [...] DAILY 30 tablet 10/10/2023 01/14/2024 Discontinued (Reorder) Start: 10-10-2023 take 1 tablet by олег th once daily 27-1 MG tablet Indications: First trimester TAKE 1 TABLET BY MOUTH DAILY 30 tablet 10/10/2023 Active no115/iron/folic acid ( 19 ORAL) (1 source) no115/i marixa/folic acid ( 19 ORAL) Take by mouth. Active terconazole 4 mg/ml vaginal cream (3 sources) Azole Antifungal Start: 04-10-2024 End: 04-17-2024 terconazole (Terazol 7) 0.4 % vaginal cream Indications: Yeast infection Insert 1 applicator into the vagina at bedtime for 7 days 45 g 04/10/2024 04/17/2024 Active Completed/Discontinued Medications Medication Drug Class(es) Dates Sig (Normalized) Sig (Original) hyoscyamine sulfate 0.125 mg sublingual tablet (5 sources) Start: 06-26-2023 End: 01-14-2024 Levsin/SL 0.125 [...] senior living (current) drug therapy; Translations: [OTH LONG-TERM CURRENT DRUG THERAPY] Onset: 08-24-2022 Episodic Other [...] conditions (not mental disorders or infectious disease) (6 sources) Encounter for other specified screening; Translations: [Encounter for suspected placental problem ruled out] Onset: 01-11-2024 01-14-2024 Episodic Other upper respiratory infections (1 source) Chronic maxillary sinusitis; Translations: [CHRONIC MAXILLARY SINUSITIS] Onset: 03-16-2022 Chronic Residual codes; unclassified (1 source) 24 weeks gestation of ; Translations: [24 weeks gestation of ] Onset: 01-11-2024 Episodic Residual codes; unclassified (19 sources) Gestation period, 29 weeks; Translations: [29 weeks gestation of ] Onset: 02-11-2024 02-11-2024 Episodic Residual codes; unclassified (19 sources) History of placental abruption; Translations: [Personal history of other complications of , childbirth and the puerperium] Onset: 02-11-2024 02-11-2024 Episodic Residual codes; unclassified (19 sources) Noncompliance with medication regimen; Translations: [Non [...] [25 weeks gestation of ] 01-14-2024 Episodic Residual codes; unclassified (2 sources) Gestation period, 38 weeks; Translations: [38 weeks gestation of ] 04-14-2024 Episodic Substance-related disorders (1 source) Nicotine dependence, [...] UA Negative Negative - 4(70) +++ mg/dL [facility] Blood, UA Negative Negative - 50 Maury/mcL [facility] Healthcare Clarity, UA Clear [facility] Color, UA Yellow [facility] Glucose, UA Negative Negative - 1999(110) ++++ mg/dL [facility] Interpretation and review of laboratory results Abnormal [facility] Ketones, UA Negative Negative - 160(16) ++++ mg/dL [facility] Leukocytes, UA Positive Negative - 500+++ Fan/mcL [facility] Nitrite, UA Negative Negative - Positive [facility] pH, UA 7 5 - 9 [facility] Healthcar e Protein, UA Trace Negative - 1999(20) ++++ mg/dL [facility] Spec Grav, UA 1.025 1 - 1.03 [facility] care Urobilinogen, UA 1.0 0.2 - 12 mg/dL [facility] Urinalysis macro (dipstick) panel (U)on 03-24-2024 Bilirubin, UA Positive Negative - 4(70) +++ mg/dL [facility] Comment on above: moderate Blood, UA Negative Negative - 50 Maury/mcL [facility] Healthcare Clarity, UA Clear [facility] Color, UA Amanda [facility] Glucose, UA Positive Negative - 1999(110) ++++ mg/dL [facility] Comment on above: 100 Interpretation and review of laboratory results Abnormal [facility] Ketones, UA Positive Negative - 160(16) ++++ mg/dL [facility] Comment on above: 15 Leukocytes, UA Negative Negative - 500+++ Fan/mcL [facility] Nitrite, UA Negative Negative - Positive [facility] pH, UA 6.5 5 - 9 [facility] Protein, UA Positive Negative - 1999(20) ++++ mg/dL [facility] Comment on above: 100 Spec Grav, UA 1.025 1 - 1.03 [facility] Urobilinogen, UA 2.0 0.2 - 12 mg/dL [facility] Referral to Food C linicon 02-26-2024 [facility] Urinalysis macro (dipstick) panel (U)on 02-11-2024 Bilirubin, UA Negative Negative - 4(70) +++ mg/dL [facility] Blood, UA Negative Negative - 50 Maury/mcL [facility] Healthcare Clarity, UA Clear [facility] Color, UA Yellow [facility] Healthcar e Glucose, UA Negative Negative - 1999(110) ++++ mg/dL [facility] Interpretation and review of laboratory results Abnormal [facility] Ketones, UA Negative Negative - 160(16) ++++ mg/dL [facility] Leukocytes, UA Positive Negative - 500+++ Fan/mcL [facility] Nitrite, UA Negative Negative - Positive [facility] pH, UA 7 5 - 9 [facility] Healthcar e Protein, UA Positive Negative - 1999(20) ++++ mg/dL [facility] Spec Grav, UA 1.02 1 - 1.03 [facility] Urobilinogen, UA 1.0 0.2 - 12 mg/dL [facility] ALL THYROID STIM HORMONEon 1 Interpretation and review of laboratory results Abnormal [facility] TSH Qn 28.537 m[IU]/L High [facility] Healt hcare [facility] Healthcar e Urinalysis macro (dipstick) panel (U)on 01-14-2024 Bilirubin, UA Positive Negative - 4(70) +++ mg/dL [facility] Blood, UA Negative Negative - 50 Maury/mcL [facility] Clarity, UA Clear [facility] Healthca re Color, UA Yellow [facility] Healthcar e Glucose, UA Negative Negative - 1999(110) ++++ mg/dL [facility] Interpretation and review of laboratory results Abnormal [facility] Ketones, UA Positive Negative - 160(16) ++++ mg/dL [facility] Comment on above: small Leukocytes, UA Positive Negative - 500+++ Fan/mcL [facility] Comment on above: small Nitrite, UA Negative Negative - Positive [facility] pH, UA 6.5 5 - 9 [facility] Protein, UA Negative Negative - 1999(20) ++++ mg/dL [facility] Healthcare Spec Grav, UA 1.020 1 - 1.03 [facility] care Urobilinogen, UA 1.0 0.2 - 12 mg/dL [facility] Urinalysis macro (dipstick) panel (U)Ordered By: Kerline Clement on 12-19-2023 Bilirubin, UA Negative Negative - 4(70) +++ mg/dL [facility] Blood, UA Negative Negative - 50 Maury/mcL [facility] Clarity, UA Clear [facility] Color, UA Yellow [facility] Glucose, UA Negative Negative - 1999(110) ++++ mg/dL [facility] Interpretation and review of laboratory results Abnormal [facility] Ketones, UA Negative Negative - 160(16) ++++ mg/dL [facility] Leukocytes, UA Moderate Negative - 500+++ Fan/mcL [facility] Nitrite, UA Negative Negative - Positive [facility] Protein, UA Negative Negative - 1999(20) ++++ mg/dL [facility] Spec Grav, UA 0.010 1 - 1.03 [facility] Urobilinogen, UA 1.0 0.2 - 12 mg/dL [facility] Cytology Cervical or vaginal smear or scraping studyon 11-13-2023 [facility] (RADTSA) AMANDA CORTEZ ([id number]) 1990 F Date Time Provider Department 11/12/23 Arslan GARCIA During your visit today, we recorded the following information about you: Danna Pitts, RN 11/12/2023 11:25 AM Signed Spoke to pt. She would like to see endocrinology in [place]. Pt's OB did adjust synthroid recently and has been monitoring labs. TREASURE- please sign pended order. PSS- please arrange visit when order is signed. KAREN Peters, Danna Mcdowell RN Previous Messages ----- Message ----- From: Arslan Garcia MD Sent: 11/02/2023 12:08 PM EDT To: Obi Dunlap; Radgermaine Faust Nurse Pool Given what sounds like patient is in first trimester and ongoing concerns of breast-feeding recommend she follow-up with endocrinology. Obi Genao 11/12/2023 11:26 AM Signed Lawanda please send records to She cardona in your box Ysabel Harkinsfer Lesia 11/12/2023 1:18 PM Signed Records faxed to Dr. Arteaga. Obi Genao 11/13/2023 9:[address] Christine office received ref and they will be calling patient to schedule appointment. Patrick PssMeryl 11/15/2023 1:[address] Arteaga office spoke with Miguel. She states she has patient on her list to give a call today to get scheduled. Meryl Nguyen Pss Nguyen Pss, Meryl 11/28/2023 1:07 PM Signed [...] [C73] Order(s):CONSULT TO ENDOCRINOLOGY [9007] Order #: [id number]: 1 FUTURE Prescriptions as of 01/09/2024 - [...] Encounter Status:Closed by DANNA PITTS on 11/13/23 [facility] Emelina 07-19-2023 CNPN Telephone ([employer]) AMANDA CORTEZ ([id number]) 1990 F Date Time Provider Department 07/19/23 [...] Status:Closed by EDNA SAL on 07/19/23 [facility] Emelina 06-25-2023 AMRITA Telephone (DAMImygolaA) AMANDA CORTEZ ([id number]) 1990 F Date Time Provider Department 06/25/23 [...] Signed Patients lab orders were sent to [facility] and I scheduled her a phone visit thank you. Allergies As of Date: 06/25/2023 Noted Allergy Reaction CECLOR (CEFACLOR) 04/11/2022 4 - Hives 12 - Shortness of Breath PENICILLINS 04/11/2022 4 - Hives 12 - Shortness of Breath Date Reviewed: 05/04/2022 Reviewed by: Daisy Stoll ARIELLE - Fully Assessed Reason for Visit: Future Appointment [256] Primary Visit Diagnosis:Thyroid cancer (HCC) [C73] Order(s):T4/THYROXIN E [SQT4] Order #: [id number] FUTURE THYROID STIMULATING HORMONE [SQTSH] Order #: [id number] FUTURE THYROGLOBULIN, SERUM WITH REFLEX TO IA OR LC-MS/MS [SQTHYRORF] Order #: [id number] FUTURE Prescriptions as of 08/23/2023 - levothyroxine [...] Encounter Status:Closed by [facility]sl[facility]NCCAP) AMANDA CORTEZ ([id number]) 1990 F Date Time Provider Department 02/14/23 [facility] During your visit today, we recorded the following information about you: Obi Genao 02/14/2023 9:54 AM Signed Patient is scheduled for appointments Arslan Garcia MD P Radt [facility] Nurse Mauro; Obi Genao 4 months with labs. Orders have been placed in Its [facility] Compliance. Allergies As of Date: 02/14/2023 Noted Allergy [...] Status:Closed by OBI GENAO on 02/14/23 Normal [facility] CBC W Auto Differential pane l (Bld)on 02-01-2023 Basophils (Bld) [#/Vol] 0.04 10*3/uL Normal <0.11 [facility] Comment on above: Order Comment: Speci men Type: BLOOD SPECIMEN Ordering Facility: [facility] Address: [address] [place] [address] Performed By: #### 5 7021-8 #### [facility] CLIA [id number] [address] [place] [address] 71196 Basophils/100 WBC (Bld) 0.5 % Normal [facility] Comment on above: Order Comment: Speci men Type: BLOOD SPECIMEN Ordering Facility: [facility] Address: [address] [place] [address] Performed By: #### 5 7021-8 #### [facility] CLIA [id number] [address] [place] [address] 10202 Differential cell count method Nom (Bld) Auto Normal [facility] Comment on above: Order Comment: Speci men Type: BLOOD SPECIMEN Ordering Facility: [facility] Address: [address] [place] [address] Performed By: #### 5 7021-8 #### [facility] CLIA [id number] [address] [place] [address] 06666 Eosinophils (Bld) [#/Vol] 0.19 10*3/uL Normal <0.46 [facility] Comment on above: Order Comment: Speci men Type: BLOOD SPECIMEN Ordering Facility: [facility] Address: [address] [place] [address] Performed By: #### 5 7021-8 #### [facility] CLIA [id number] [address] [place] [address] 42023 Eosinophils/100 WBC (Bld) 2.5 % Normal [facility] Comment on above: Order Comment: Speci men Type: BLOOD SPECIMEN Ordering Facility: [facility] Address: [address] [place] [address] Performed By: #### 5 7021-8 #### [facility] CLIA [id number] [address] [place] [address] 03858 Erythrocyte distribution width (RBC) [Ratio] 13.3 % Normal 11.5-15.0 [facility] Comment on above: Order Comment: Speci men Type: BLOOD SPECIMEN Ordering Facility: [facility] Address: [address] [place] [address] Performed By: #### 5 7021-8 #### [facility] CLIA [id number] [address] [place] [address] 24546 Hematocrit (Bld) [Volume fraction] 47.7 % High 36.0-46.0 [facility] Comment on above: Order Comment: Speci men Type: BLOOD SPECIMEN Ordering Facility: [facility] Address: [address] [place] [address] Performed By: #### 5 7021-8 #### [facility] CLIA [id number] [address] [place] [address] 63596 Hemoglobin (Bld) [Mass/Vol] 15.6 g/dL High 11.5-15.5 [facility] Comment on above: Order Comment: Speci men Type: BLOOD SPECIMEN Ordering Facility: [facility] Address: [address] [place] [address] Performed By: #### 5 7021-8 #### [facility] CLIA [id number] [address] [place] [address] 57974 Immature granulocytes (Bld) [#/Vol] 0.03 10*3/uL Normal <0.10 [facility] Comment on above: Order Comment: Speci men Type: BLOOD SPECIMEN Ordering Facility: [facility] Address: [address] [place] [address] Performed By: #### 5 7021-8 #### [facility] CLIA [id number] [address] [place] [address] 23058 Immature granulocytes/100 WBC (Bld) 0.4 % Normal [facility] Comment on above: Order Comment: Speci men Type: BLOOD SPECIMEN Ordering Facility: [facility] Address: [address] [place] [address] Performed By: #### 5 7021-8 #### [facility] CLIA [id number] [address] [place] [address] 51722 Lymphocytes (Bld) [#/Vol] 2.30 10*3/uL Normal 1.00-4.00 [facility] Comment on above: Order Comment: Speci men Type: BLOOD SPECIMEN Ordering Facility: [facility] Address: [address] [place] [address] Performed By: #### 5 7021-8 #### [facility] CLIA [id number] [address] [place] [address] 14612 Lymphocytes/100 WBC (Bld) 29.7 % Normal [facility] Comment on above: Order Comment: Speci men Type: BLOOD SPECIMEN Ordering Facility: [facility] Address: [address] [place] [address] Performed By: #### 5 7021-8 #### [facility] CLIA [id number] [address] [place] [address] 63581 MCH (RBC) [Entitic mass] 28.8 pg Normal 26.0-34.0 [facility] Comment on above: Order Comment: Speci men Type: BLOOD SPECIMEN Ordering Facility: [facility] Address: [address] [place] [address] Performed By: #### 5 7021-8 #### [facility] CLIA [id number] [address] [place] [address] 68172 MCHC (RBC) [Mass/Vol] 32.7 g/dL Normal 30.5-36.0 [facility] Comment on above: Order Comment: Speci men Type: BLOOD SPECIMEN Ordering Facility: [facility] Address: [address] [place] [address] Performed By: #### 5 7021-8 #### [facility] CLIA [id number] [address] [place] [address] 31496 MCV (RBC) [Entitic vol] 88.2 fL Normal 80.0-100.0 [facility] Comment on above: Order Comment: Speci men Type: BLOOD SPECIMEN Ordering Facility: [facility] Address: [address] [place] [address] Performed By: #### 5 7021-8 #### [facility] CLIA [id number] [address] [place] [address] 27444 Monocytes (Bld) [#/Vol] 0.49 10*3/uL Normal <0.87 [facility] Comment on above: Order Comment: Speci men Type: BLOOD SPECIMEN Ordering Facility: [facility] Address: [address] [place] [address] Performed By: #### 5 7021-8 #### [facility] CLIA [id number] [address] [place] [address] 63561 Monocytes/100 WBC (Bld) 6.3 % Normal [facility] Comment on above: Order Comment: Speci men Type: BLOOD SPECIMEN Ordering Facility: [facility] Address: [address] [place] [address] Performed By: #### 5 7021-8 #### [facility] CLIA [id number] [address] [place] [address] 18712 Neutrophils (Bld) [#/Vol] 4.70 10*3/uL Normal 1.45-7.50 [facility] Comment on above: Order Comment: Speci men Type: BLOOD SPECIMEN Ordering Facility: [facility] Address: [address] [place] [address] Performed By: #### 5 7021-8 #### [facility] CLIA [id number] [address] [place] [address] 51832 Neutrophils/100 WBC (Bld) 60.6 % Normal [facility] Comment on above: Order Comment: Speci men Type: BLOOD SPECIMEN Ordering Facility: [facility] Address: [address] [place] [address] Performed By: #### 5 7021-8 #### [facility] CLIA [id number] [address] [place] [address] 45201 Nucleated RBC (Bld) [#/Vol] 10*3/uL Normal <0.01 [facility] Comment on above: Order Comment: Speci men Type: BLOOD SPECIMEN Ordering Facility: [facility] Address: [address] [place] [address] Performed By: #### 5 7021-8 #### [facility] CLIA [id number] [address] [place] [address] 50459 Nucleated RBC/100 WBC (Bld) [Ratio] 0.0 /100 WBC Normal [facility] Comment on above: Order Comment: Speci men Type: BLOOD SPECIMEN Ordering Facility: [facility] Address: [address] [place] [address] Performed By: #### 5 7021-8 #### [facility] CLIA [id number] [address] [place] [address] 44091 Platelet mean volume (Bld) [Entitic vol] 9.6 fL Normal 9.0-12.7 [facility] Comment on above: Order Comment: Speci men Type: BLOOD SPECIMEN Ordering Facility: [facility] Address: [address] [place] [address] Performed By: #### 5 7021-8 #### [facility] CLIA [id number] [address] [place] [address] 57973 Platelets (Bld) [#/Vol] 248 10*3/uL Normal 150-400 [facility] Comment on above: Order Comment: Speci men Type: BLOOD SPECIMEN Ordering Facility: [facility] Address: [address] [place] [address] Performed By: #### 5 7021-8 #### [facility] CLIA [id number] [address] [place] [address] 22376 RBC (Bld) [#/Vol] 5.41 10*6/uL High 3.90-5.20 [facility] Comment on above: Order Comment: Speci men Type: BLOOD SPECIMEN Ordering Facility: [facility] Address: [address] [place] [address] Performed By: #### 5 7021-8 #### [facility] CLIA [id number] [address] [place] [address] 41747 WBC (Bld) [#/Vol] 7.75 10*3/uL Normal 3.70-11.00 [facility] Comment on above: Order Comment: Speci men Type: BLOOD SPECIMEN Ordering Facility: [facility] Address: [address] [place] [address] Performed By: #### 5 7021-8 #### [facility] CLIA [id number] [address] [place] [address] 74782 T3 SerPl-mCncon 02-01-2023 T3 [Mass/Vol] 123 ng/dL Normal 79-165 [facility] Comment on above: Order Comment: Speci men Type: BLOOD SPECIMEN Ordering Facility: [facility] Address: [address] [place] [address] Performed By: #### 3 053-6, 3016-3, 3026-2 #### [facility] CLIA [id number] [facility] [place] [address] [place] T4 SerPl-mCncon 02-01-2023 T4 [Mass/Vol] 11.9 ug/dL High 5.5-10.2 [facility] Comment on above: Order Comment: Speci men Type: BLOOD SPECIMEN Ordering Facility: [facility] Address: [address] [place] [address] Performed By: #### 3 053-6, 3016-3, 3026-2 #### [facility] CLIA [id number] [address] [place] [address] [place] THYROGLOBULIN BY MASS SPECTR OMETRYon 02-01-2023 THYROGLOBULIN, LC-MS/MS <0.5 Low 1.3-31.8 [facility] Comment on above: Order Comment: Speci kishor Type: BLOOD SPECIMEN Ordering Facility: [facility] Address: [address] [place] [address] Result Comment: Results obtained with different test [...] developed and its performance characteristics determined by [facility]. It has not been cleared or approved by the [place] Food and Drug Administration. This test was performed in a CLIA certified laboratory and is intended for clinical purposes. Performed By: [facility] [address] [place] [id number] Fund Manager: Prem Willis MD, PhD CLIA Number: [id number] Performed By: #### T GMS #### [facility] [email or web address] CLIA [id number] [address] [place] [address] TSH SerPl-aCncon 02-01-2023 TSH Qn 0.960 m[IU]/L Normal 0.270-4.200 [facility] Comment on above: Order Comment: Speci men Type: BLOOD SPECIMEN Ordering Facility: [facility] Address: [address] [place] [address] Result Comment: If t he patient is , TSH reference range varies by gestational period: First Trimester (weeks 9-12): 0.180-2.990 mIU/L Second Trimester: 0.110-3.980 mIU/L Third Trimester: 0.480-4.710 mIU/L Suman Graf et al. A Practical Approach for the Verifications and Determination of Site- and Trimester-Specific Reference Intervals for Thyroid Function tests in . Thyroid, 2019:29:3:412-420. Rajesh Holman, et al. 2017 Guidelines of the [place] [employer] for the Diagnosis and Management of Thyroid Disease during and the . Thyroid, 2017:27:3:315-389. Performed By: #### 3 053-6, 3016-3, 3026-2 #### [facility] CLIA [id number] [address] [place] [address] [place] PREG QUANT HCGon 08-17-2022 HCG QUANT 1 mIU/mL Normal [facility] Comment on above: Performed By: #### P REGQNT #### [facility] [address] [place] [address] Dr. Prashant Kang HCG RANGE SEE BELOW Normal [facility] Comment on above: Result Comment: 5-50 0.2-1 WEEK 50-500 1-2 WEEKS 100-5,000 2-3 WEEKS 500-10,000 3-4 WEEKS 1,000-50,000 4-5 WEEKS 10,000-100,000 5-6 WEEKS 15,000-200,000 6-8 WEEKS 10,000-100,000 2-3 MONTHS Performed By: #### P REGQNT #### [facility] [address] [place] [address] Dr. Prashant Kang PREG QUANT HCGon 07-04-2022 HCG QUANT <1 Normal [facility] Comment on above: Performed By: #### P REGQNT #### [facility] [address] [place] [address] Dr. Prashant Kang HCG RANGE SEE BELOW Normal [facility] Comment on above: Result Comment: 5-50 0.2-1 WEEK 50-500 1-2 WEEKS 100-5,000 2-3 WEEKS 500-10,000 3-4 WEEKS 1,000-50,000 4-5 WEEKS 10,000-100,000 5-6 WEEKS 15,000-200,000 6-8 WEEKS 10,000-100,000 2-3 MONTHS Performed By: #### P REGQNT #### [facility] [address] [place] [address] Dr. Prashant Kang PREG QUANT HCGon 05-16-2022 HCG QUANT <1 [facility] [place] Comment on above: Performed By: #### P TT, PT #### [facility] [address] [place] [address] Dr. Prashant Kang HCG RANGE SEE BELOW Normal [facility] Comment on above: Result Comment: 5-50 0.2-1 WEEK 50-500 1-2 WEEKS 100-5,000 2-3 WEEKS 500-10,000 3-4 WEEKS 1,000-50,000 4-5 WEEKS 10,000-100,000 5-6 WEEKS 15,000-200,000 6-8 WEEKS 10,000-100,000 2-3 MONTHS Performed By: #### P TT, PT #### [facility] [address] [place] [address] Dr. Prashant Kang PREG QUANT HCGon 05-08-2022 HCG QUANT <1 Normal [facility] Comment on above: Performed By: #### P REGQNT #### [facility] [address] [place] [address] Dr. Prashant Kang HCG RANGE SEE BELOW [facility] Comment on above: Result Comment: 5-50 0.2-1 WEEK 50-500 1-2 WEEKS 100-5,000 2-3 WEEKS 500-10,000 3-4 WEEKS 1,000-50,000 4-5 WEEKS 10,000-100,000 5-6 WEEKS 15,000-200,000 6-8 WEEKS 10,000-100,000 2-3 MONTHS Performed By: #### P REGQNT #### [facility] [address] [address] [address] Prashant Kang CALCIUMon 03-08-2022 Calcium [Mass/Vol] 8.6 mg/dL Normal 8.5-10.1 [facility] Comment on above: Performed By: #### C A #### [facility] [address] [address] [address] Prashant Kang CALCIUMon 03-07-2022 Calcium [Mass/Vol] 8.4 mg/dL Critically low 8.5-10.1 [facility] Comment on above: Performed By: #### C A #### [facility] [address] [place] [address] Dr. Prashant Kang PREG HCG QUALon 03-07-2022 , QUAL Negative Normal NEGATIVE [facility] Comment on above: Performed By: #### P REG #### [facility] [address] [place] [address] Dr. Prashant Kang Covid-19 PCR (CVDTBH)on SARS-CoV-2 (COVID-19) RNA DENEEN+probe Ql (Unsp spec) Not detected Normal NOT DETECTED [facility] Comment on above: Result Comment: This test is not yet approved or cleared by the [place] FDA. When there are no FDA-approved or cleared tests available, and other criteria are met, FDA can make tests available under an emergency access mechanism called an Emergency Use Authorization (EUA). The EUA for this test is supported by the Search Coordinator of Health and Human Service's (HHS's) declaration [...] SARS-CoV-2. Performed By: #### C VDTB #### [facility] [address] [place] [address] Dr. Prashant Kang CALCIUMon 02-24-2022 Calcium [Mass/Vol] 8.8 mg/dL Normal 8.5-10.1 [facility] Comment on above: Performed By: #### P TT, PT #### [facility] [address] [place] [address] Dr. Prashant Kang CBC AUTO DIFFon 02-24-2022 BASO # 0.0 103/ul Normal 0.0-0.1 [facility] Comment on above: Performed By: #### P TT, PT #### [facility] [address] [place] [address] Dr. Prashant Kang Basophils/100 WBC (Bld) 0.3 % Normal 0.2-2.0 [facility] Comment on above: Performed By: #### P TT, PT #### [facility] [address] [place] [address] Dr. Prashant Kang EO # 0.1 103/ul Normal 0.0-0.7 [facility] Comment on above: Performed By: #### P TT, PT #### [facility] [address] [place] [address] Dr. Prashant Kang Eosinophils/100 WBC (Bld) 1.5 % Normal 0.9-7.0 [facility] Comment on above: Performed By: #### P TT, PT #### [facility] [address] [place] [address] Dr. Prashant Kang Erythrocyte distribution width (RBC) [Ratio] 13.8 % Normal 11.0-15.0 [facility] Comment on above: Performed By: #### P TT, PT #### [facility] [address] [place] [address] Dr. Prashant Kang Hematocrit (Bld) [Volume fraction] 45.5 % Normal 36.0-48.0 [facility] Comment on above: Performed By: #### P TT, PT #### [facility] [address] [place] [address] Dr. Prashant Kang Hemoglobin (Bld) [Mass/Vol] 14.6 g/dL Normal 12.0-16.0 [facility] Comment on above: Performed By: #### P TT, PT #### [facility] [address] [place] [address] Dr. Prashant Kang IG # 0.02 10e3/ul Normal 0.00-0.03 [facility] Comment on above: Performed By: #### P TT, PT #### [facility] [address] [place] [address] Dr. Prashant Kang IG % 0.3 % Normal 0.0-0.5 [facility] Comment on above: Performed By: #### P TT, PT #### [facility] [address] [place] [address] Dr. Prashant Kang LYMPH # 1.6 103/ul Normal 1.2-3.8 [facility] Comment on above: Performed By: #### P TT, PT #### [facility] [address] [place] [address] Dr. Prashant Kang Lymphocytes/100 WBC (Bld) 23.5 % Normal 20.5-60.0 [facility] Comment on above: Performed By: #### P TT, PT #### [facility] [address] [place] [address] Dr. Prashant Kang MANUAL DIFF REQ NO Normal [facility] Comment on above: Performed By: #### P TT, PT #### [facility] [address] [place] [address] Dr. Prashant Kang MCH (RBC) [Entitic mass] 26.5 pg Critically low 26.7-34.0 [facility] Comment on above: Performed By: #### P TT, PT #### [facility] [address] [place] [address] Dr. Prashant Kang MCHC (RBC) [Mass/Vol] 32.1 g/dL Normal 29.9-35.2 [facility] Comment on above: Performed By: #### P TT, PT #### [facility] [address] [place] [address] Dr. Prashant Kang MCV (RBC) [Entitic vol] 82.7 fL Normal 81.0-99.0 [facility] Comment on above: Performed By: #### P TT, PT #### [facility] [address] [place] [address] Dr. Prahsant Kang MONO # 0.5 103/ul Normal 0.3-0.8 [facility] Comment on above: Performed By: #### P TT, PT #### [facility] [address] [place] [address] Dr. Prashant Kang Monocytes/100 WBC (Bld) 7.5 % Normal 1.7-12.0 [facility] Comment on above: Performed By: #### P TT, PT #### [facility] [address] [place] [address] Dr. Prashant Kang NEUT # 4.6 103/ul Normal 1.4-6.5 [facility] Comment on above: Performed By: #### P TT, PT #### [facility] [address] [place] [address] Dr. Prashant Kang Neutrophils/100 WBC (Bld) 66.9 % Normal 43.0-75.0 [facility] Comment on above: Performed By: #### P TT, PT #### [facility] [address] [place] [address] Dr. Prashant Kang Platelet mean volume (Bld) [Entitic vol] 9.9 fL Normal 9.5-13.5 [facility] Comment on above: Performed By: #### P TT, PT #### [facility] [address] [place] [address] Dr. Prashant Kang PLT 239 103/ul Normal 150-450 [facility] Comment on above: Performed By: #### P TT, PT #### [facility] [address] [place] [address] Dr. Prashant Kang RBC 5.50 106/ul Critically high 4.20-5.40 [facility] Comment on above: Performed By: #### P TT, PT #### [facility] [address] [place] [address] Dr. Prashant Kang WBC 6.8 103/ul Normal 4.0-11.0 [facility] Comment on above: Performed By: #### P TT, PT #### [facility] [address] [place] [address] Dr. Prashant Kang MAGNESIUMon 02-24-2022 Magnesium [Mass/Vol] 2.0 mg/dL Normal 1.8-2.4 [facility] Comment on above: Performed By: #### P TT, PT #### [facility] [address] [place] [address] Dr. Prashant Kang PHOSPHORUSon 02-24-2022 Phosphate [Mass/Vol] 3.3 mg/dL Normal 2.6-4.7 [facility] Comment on above: Performed By: #### P TT, PT #### [facility] [address] [place] [address] Dr. Prashant Kang PROTIMEon 02-24-2022 INR Coag (PPP) [Relative time] 1.01 {INR} Normal [facility] Comment on above: Performed By: #### P TT, PT #### [facility] [address] [place] [address] Dr. Prashant Kang INR GUIDELINES SEE BELOW Normal [facility] Comment on above: Result Comment: SALIMA RED INR: 2.0 - 3.0 CONDITIONS NOT LISTED BELOW 2.5 - 3.5 FOR PROSTHETIC HEART VALVE REPLACEMENT 2.5 - 3.5 RECURRENT THROMBOSIS Performed By: #### P TT, PT #### [facility] [address] [place] [address] Dr. Prashant Kang PT Coag (PPP) [Time] 10.9 s Normal 9.0-11.6 [facility] Comment on above: Performed By: #### P TT, PT #### [facility] [address] [place] [address] Dr. Prashant Kang PTTon 02-24-2022 aPTT Coag (Bld) [Time] 28.9 s Normal 22.3-36.2 [facility] Comment on above: Performed By: #### P TT, PT #### [facility] [address] [place], [place] [address] Dr. Prashant Kang TSHon 02-24-2022 TSH 1.163 uIU/mL Normal 0.358-3.740 [facility] Comment on above: Performed By: #### P TT, PT #### [facility] [address] [place], [place] [address] Dr. Prashant Kang US THYROID FN ASP BXon 02-09 US THYROID FN ASP BX Begin Addendum #1 COLLECTED DATE/TIME: 02/03/2022 11:36 EDT Final Diagnosis Report for [facility] [place] (A/B) THYROID ISTHMUS NODULE, FINE NEEDLE [...] 2. Pathology results are pending. Normal [facility] CT NECK ST W CONon [...] SHAILESH EMERY Date: 2022-01-20 13:05 Normal [facility] US THYROIDon 01-20-2022 US THYROID [...] isthmus nodule. Consider fine-needle aspiration TI-RADS: The [place] [employer] TI-RADS committee's white paper recommendations for thyroid lesions classified as TR4 (moderately suspicious) are listed below: > 1.0 cm. Follow-up ultrasound in 1, 2, 3, and 5 years. > 1.5 cm. FNA. J. Am More Radiol 2017;14:587-595. Electronically authenticated by: SHAILESH EMERY Date: 2022-01-20 21:46 Normal [facility] CBC AUTO DIFFon 01-08-2022 BASO # 0.0 103/ul Normal 0.0-0.1 [facility] Comment on above: Performed By: #### P TT, PT #### [facility] [address] [address] [address] Prashant Kang Basophils/100 WBC (Bld) 0.4 % Normal 0.2-2.0 [facility] Comment on above: Performed By: #### P TT, PT #### [facility] [address] [place] [address] Dr. Prashant Kang EO # 0.2 103/ul Normal 0.0-0.7 [facility] Comment on above: Performed By: #### P TT, PT #### [facility] [address] [place] [address] Dr. Prashant Kang Eosinophils/100 WBC (Bld) 3.4 % Normal 0.9-7.0 [facility] Comment on above: Performed By: #### P TT, PT #### [facility] [address] [place] [address] Dr. Prashant Kang Erythrocyte distribution width (RBC) [Ratio] 14.6 % Normal 11.0-15.0 [facility] Comment on above: Performed By: #### P TT, PT #### [facility] [address] [place] [address] Dr. Prashant Kang Hematocrit (Bld) [Volume fraction] 42.9 % Normal 36.0-48.0 [facility] Comment on above: Performed By: #### P TT, PT #### [facility] [address] [place] [address] Dr. Prashant Kang Hemoglobin (Bld) [Mass/Vol] 13.4 g/dL Normal 12.0-16.0 [facility] Comment on above: Performed By: #### P TT, PT #### [facility] [address] [place] [address] Dr. Prashant Kang IG # 0.02 10e3/ul Normal 0.00-0.03 [facility] Comment on above: Performed By: #### P TT, PT #### [facility] [address] [place] [address] Dr. Prashant Kang IG % 0.3 % Normal 0.0-0.5 [facility] Comment on above: Performed By: #### P TT, PT #### [facility] [address] [place] [address] Dr. Prashant Kang LYMPH # 2.0 103/ul Normal 1.2-3.8 [facility] Comment on above: Performed By: #### P TT, PT #### [facility] [address] [place] [address] Dr. Prashant Kang Lymphocytes/100 WBC (Bld) 29.7 % Normal 20.5-60.0 [facility] Comment on above: Performed By: #### P TT, PT #### [facility] [address] [place] [address] Dr. Prashant Kang MANUAL DIFF REQ NO Normal [facility] Comment on above: Performed By: #### P TT, PT #### [facility] [address] [place] [address] Dr. Prashant Kang MCH (RBC) [Entitic mass] 26.3 pg Critically low 26.7-34.0 [facility] Comment on above: Performed By: #### P TT, PT #### [facility] [address] [place] [address] Dr. Prashant Kang MCHC (RBC) [Mass/Vol] 31.2 g/dL Normal 29.9-35.2 [facility] Comment on above: Performed By: #### P TT, PT #### [facility] [address] [place] [address] Dr. Prashant Kang MCV (RBC) [Entitic vol] 84.1 fL Normal 81.0-99.0 [facility] Comment on above: Performed By: #### P TT, PT #### [facility] [address] [place] [address] Dr. Prashant Kang MONO # 0.6 103/ul Normal 0.3-0.8 [facility] Comment on above: Performed By: #### P TT, PT #### [facility] [address] [place] [address] Dr. Prashant Kang Monocytes/100 WBC (Bld) 8.7 % Normal 1.7-12.0 [facility] Comment on above: Performed By: #### P TT, PT #### [facility] [address] [place] [address] Dr. Prashant Kang NEUT # 3.9 103/ul Normal 1.4-6.5 [facility] Comment on above: Performed By: #### P TT, PT #### [facility] [address] [place] [address] Dr. Prashant Kang Neutrophils/100 WBC (Bld) 57.5 % Normal 43.0-75.0 [facility] Comment on above: Performed By: #### P TT, PT #### [facility] [address] [place] [address] Dr. Prashant Kang Platelet mean volume (Bld) [Entitic vol] 9.9 fL Normal 9.5-13.5 [facility] Comment on above: Performed By: #### P TT, PT #### [facility] [address] [place] [address] Dr. Prashant Kang PLT 241 103/ul Normal 150-450 [facility] Comment on above: Performed By: #### P TT, PT #### [facility] [address] [place] [address] Dr. Prashant Kang RBC 5.10 106/ul Normal 4.20-5.40 [facility] Comment on above: Performed By: #### P TT, PT #### [facility] [address] [place] [address] Dr. Prashant Kang WBC 6.8 103/ul Normal 4.0-11.0 [facility] Comment on above: Performed By: #### P TT, PT #### [facility] [address] [place] [address] Dr. Prashant Kang GROUP A STREP CULTUREon 12-29 S. pyogenes Ag Ql (Unsp spec) Culture Observations: NEGATIVE FOR GROUP A STREPTOCOCCUS. Normal [facility] Comment on above: Performed By: #### P TT, PT #### [facility] [address] [place] [address] Dr. Prashant Kang PROF 14(COMP METB)on 022 Albumin [Mass/Vol] 3.6 g/dL Normal 3.4-5.0 [facility] Comment on above: Performed By: #### C MP #### [facility] [address] [place] [address] Dr. Prashant Kang Albumin/Globulin [Mass ratio] 0.8 {ratio} Normal [facility] Comment on above: Performed By: #### C MP #### [facility] [address] [address] [address] Prashant Kang ALP [Catalytic activity/Vol] 74 U/L Normal 46-116 [facility] Comment on above: Performed By: #### C MP #### [facility] [address] [address] [address] Prashant Knag ALT [Catalytic activity/Vol] 40 U/L Normal 14-59 [facility] Comment on above: Performed By: #### C MP #### [facility] [address] [address] [address] Prashant Kang Anion gap [Moles/Vol] 14.0 mmol/L Normal [facility] Comment on above: Performed By: #### C MP #### [facility] [address] [place] [address] Dr. Prashant Kang AST [Catalytic activity/Vol] 31 U/L Normal 15-37 [facility] Comment on above: Performed By: #### C MP #### [facility] [address] [place] [address] Dr. Prashant Kang Bilirubin [Mass/Vol] 0.4 mg/dL Normal 0.2-1.0 [facility] Comment on above: Performed By: #### C MP #### [facility] [address] [place] [address] Dr. Prashant Kang Calcium [Mass/Vol] 8.8 mg/dL Normal 8.5-10.1 [facility] Comment on above: Performed By: #### C MP #### [facility] [address] [place] [address] Dr. Prashant Kang Chloride [Moles/Vol] 105 mmol/L Normal 98-107 [facility] Comment on above: Performed By: #### C MP #### [facility] [address] [address] [address] Prashant Kang CO2 [Moles/Vol] 26.6 mmol/L Normal 21.0-32.0 [facility] Comment on above: Performed By: #### C MP #### [facility] [address] [address] [address] Prashant Kang Creatinine [Mass/Vol] 0.80 mg/dL Normal 0.55-1.02 [facility] Comment on above: Performed By: #### C MP #### [facility] [address] [address] [address] Prashant Kang EGFR-AF [place] >60 Normal >=60 [facility] Comment on above: Performed By: #### C MP #### [facility] [address] [address] [address] Prashant Kang EGFR-NON AF [place] >60 Normal >=60 [facility] Comment on above: Performed By: #### C MP #### [facility] [address] [place] [address] Dr. Prashant Kang Globulin (S) [Mass/Vol] 4.3 g/dL Normal [facility] Comment on above: Performed By: #### C MP #### [facility] [address] [place] [address] Dr. Prashant Kang Glucose [Mass/Vol] 101 mg/dL Normal 74-106 [facility] Comment on above: Performed By: #### C MP #### [facility] [address] [place] [address] Dr. Prashant Kang Potassium [Moles/Vol] 4.6 mmol/L Normal 3.5-5.1 [facility] Comment on above: Performed By: #### C MP #### [facility] [address] [place] [address] Dr. Prashant Kang Protein [Mass/Vol] 7.9 g/dL Normal 6.4-8.2 [facility] Comment on above: Performed By: #### C MP #### [facility] [address] [place] [address] Dr. Prashant Kang Sodium [Moles/Vol] 141 mmol/L Normal 136-145 [facility] Comment on above: Performed By: #### C MP #### [facility] [address] [place] [address] Dr. Prashant Kang Urea nitrogen [Mass/Vol] 11.0 mg/dL Normal 7.0-18.0 [facility] Comment on above: Performed By: #### C MP #### [facility] [address] [address] [address] Prashant Kang Urea nitrogen/Creatinine [Mass ratio] 13.8 mg/mg Normal [facility] Comment on above: Performed By: #### C MP #### [facility] [address] [address] [address] Prashant Kang STREPT SCREENon 01-08-2022 STREP SCREEN A Negative Normal NEGATIVE [facility] Comment on above: Performed By: #### P TT, PT #### [facility] [address] [address] [address] Prashant Kang XR NECK SOFT TISSUEon [...] MIKE BARNETT Date: 2022-01-08 04:43 Normal [facility] Covid-19 PCR (CVDTB)on SARS-CoV-2 (COVID-19) RNA DENEEN+probe Ql (Unsp spec) Not detected Normal NOT DETECTED [facility] Comment on above: Result Comment: This test is not yet approved or cleared by the [place] FDA. When there are no FDA-approved or cleared tests available, and other criteria are met, FDA can make tests available under an emergency access mechanism called an Emergency Use Authorization (EUA). The EUA for this test is supported by the Search Coordinator of Health and Human Service's (HHS's) declaration [...] Performed By: #### P TT, PT #### [facility] [address] [place] [address] Dr. Prashant Kang Vital Signs Date Time Vital Sign Value Performing Clinician Faci lity 04-14-2024 13:52-0500 Body mass index (BMI) [Ratio] 39.69 kg/m2 Acosta Shania DO Work Phone: [facility] 04-14-2024 13:52-0500 Body weight 98.43 kg Acosta Shania DO Work Phone: [facility] 04-14-2024 13:52-0500 Diastolic blood pressure 72 mm[Hg] Acosta Shania DO Work Phone: [facility] 04-14-2024 13:52-0500 Systolic blood pressure 122 mm[Hg] Acosta Shania DO Work Phone: [facility] 03-31-2024 13:44-0500 Body mass index (BMI) [Ratio] 40.75 kg/m2 Acosta Shania DO Work Phone: [facility] 03-31-2024 13:44-0500 Body weight 101.06 kg Acosta Shania DO Work Phone: [facility] 03-31-2024 13:44-0500 Diastolic blood pressure 70 mm[Hg] Acosta Shania DO Work Phone: [facility] 03-31-2024 13:44-0500 Systolic blood pressure 120 mm[Hg] Acosta Shania DO Work Phone: [facility] 03-24-2024 13:16-0500 Body mass index (BMI) [Ratio] 40.02 kg/m2 Acosta Shania DO Work Phone: [facility] 03-24-2024 13:16-0500 Body weight 99.25 kg Acosta Shania DO Work Phone: [facility] 03-24-2024 13:16-0500 Diastolic blood pressure 70 mm[Hg] Acosta Shania DO Work Phone: [facility] 03-24-2024 13:16-0500 Systolic blood pressure 120 mm[Hg] Acosta Shania DO Work Phone: [facility] [facility] 03-10-2024 13:45-0500 Body mass index (BMI) [Ratio] 40.38 kg/m2 Acosta Shania DO Work Phone: [facility] 03-10-2024 13:45-0500 Body weight 100.15 kg Acosta Shania DO Work Phone: [facility] 03-10-2024 13:45-0500 Diastolic blood pressure 76 mm[Hg] Acosta Shania DO Work Phone: [facility] 03-10-2024 13:45-0500 Systolic blood pressure 114 mm[Hg] Acosta Shania DO Work Phone: [facility] 02-25-2024 14:08-0400 Body mass index (BMI) [Ratio] 39.87 kg/m2 Kim YAO Work Phone: [facility] 02-25-2024 14:08-0400 Body weight 98.88 kg Kim YAO Work Phone: [facility] 02-25-2024 14:08-0400 Diastolic blood pressure 70 mm[Hg] Kim YAO Work Phone: [facility] 02-25-2024 14:08-0400 Systolic blood pressure 114 mm[Hg] Kim YAO Work Phone: [facility] 02-11-2024 11:10-0400 Body mass index (BMI) [Ratio] 40.2 kg/m2 Acosta Shania DO Work Phone: [facility] 02-11-2024 11:10-0400 Body weight 99.7 kg Acosta Shania DO Work Phone: [facility] 02-11-2024 11:10-0400 Diastolic blood pressure 64 mm[Hg] Acosta Shania DO Work Phone: [facility] 02-11-2024 11:10-0400 Systolic blood pressure 112 mm[Hg] Acosta Shania DO Work Phone: [facility] 01-14-2024 13:36-0400 Body mass index (BMI) [Ratio] 39.1 kg/m2 Acosta Shania DO Work Phone: [facility] 01-14-2024 13:36-0400 Body weight 96.98 kg Acosta Shania DO Work Phone: [facility] 01-14-2024 13:36-0400 Diastolic blood pressure 60 mm[Hg] Acosta Shania DO Work Phone: [facility] 01-14-2024 13:36-0400 Systolic blood pressure 120 mm[Hg] Acosta Shania DO Work Phone: [facility] 12-17-2023 14:20-0400 Body mass index (BMI) [Ratio] 39.51 kg/m2 Acosta Shania DO Work Phone: [facility] 12-17-2023 14:20-0400 Body weight 97.98 kg Acosta Shania DO Work Phone: [facility] 12-17-2023 14:20-0400 Diastolic blood pressure 80 mm[Hg] Acosta Shania DO Work Phone: [facility] 12-17-2023 14:20-0400 Systolic blood pressure 124 mm[Hg] Acosta Shania DO Work Phone: [facility] 06-12-2023 13:54-0500 Body mass index (BMI) [Ratio] 40.6 kg/m2 Acosta Shania DO Work Phone: [facility] 06-12-2023 13:54-0500 Body weight 100.7 kg Acosta Shania DO Work Phone: [facility] 06-12-2023 13:54-0500 Diastolic blood pressure 74 mm[Hg] Acosta Shania DO Work Phone: [facility] 06-12-2023 13:54-0500 Systolic blood pressure 118 mm[Hg] Acosta Shania DO Work Phone: [facility] 05-04-2022 09:40-0500 Body temperature 97.2 [degF] JONNY Garcia MD Work Phone: [facility] 05-04-2022 09:40-0500 Body weight 88.81 kg JONNY Garcia MD Work Phone: [facility] 05-04-2022 09:40-0500 Diastolic blood pressure 73 mm[Hg] JONNY Garcia MD Work Phone: [facility] 05-04-2022 09:40-0500 Heart rate 67 /min JONNY Garcia MD Work Phone: [facility] 05-04-2022 09:40-0500 Respiratory rate 16 /min JONNY Garcia MD Work Phone: [facility] 05-04-2022 09:40-0500 SaO2% (BldA) [Mass fraction] 100 % JONNY Garcia MD Work Phone: [facility] 05-04-2022 09:40-0500 Systolic blood pressure 113 mm[Hg] JONNY Garcia MD Work Phone: [facility] Encounters Encounter Date Encounter Type Care Provider Facility Start: 04-14-2024 End: 04-14-2024 Bamboo flowsheet Acosta Shania DO Work Phone: [facility] Start: 04-14-2024 End: 04-14-2024 Bamboo flowsheet Acosta Shania DO Work Phone: [facility] Start: 04-14-2024 End: 04-14-2024 ambulatory ACOSTA SHANIA Not Available Start: 04-14-2024 End: 04-14-2024 Office outpatient visit 15 minutes Acosta Shania DO Work Phone: [facility] Comment on above: Third trimester preg yogesh; 38 weeks gestation of Start: 03-31-2024 End: 03-31-2024 Bamboo flowsheet Acosta [...] Start: 02-26-2024 End: 02-26-[address] [facility] Comment on above: 24 [...] Start: 01-11-2024 End: 01-11-2024 ambulatory ACOSTA R [facility] Start: 12-17-2023 End: 12-17-2023 Office outpatient visit 15 minutes Acosta Shania DO Work Phone: [facility] Comment on above: Second trimester pre gnancy; Diabetes mellitus screening Start: 12-17-2023 End: 12-17-2023 ambulatory ACOSTA SHANIA [...] encounter [facility]slan Garcia [facility] Comment on above: Appointment Confirma tion Start: 02-08-2023 End: 02-08-2023 ambulatory SARA MEDELLIN Facility:[facility] Start: 02-01-2023 End: 02-01-2023 ambulatory SARA MEDELLIN Facility:[facility] Start: 11-09-2022 Telephone encounter Arslan Garcia MD [facility] Comment on above: Appointment [...] Start: 04-20-2022 Patient encounter procedure [facility] Provider [facility] Department Start: 04-11-2022 End: 04-11-2022 Patient encounter procedure Lab/[place] Work Phone: Radiation Oncology Comment on above: Thyroid cancer (HCC) (Primary Dx) Start: 03-09-2022 Encounter for preprocedural laboratory examination DR CHARLIE EASTMAN [facility] Start: 03-07-2022 End: 03-08-[address] [...] HORMONE Acosta Shania DO Work Phone: Start: 01-14-2024 Urnls dip stick/tabl et rgnt non-auto w/o micrscp Acosta Shania DO Work Phone: Start: 12-17-2023 Urnls dip stick/tabl et rgnt non-auto w/o micrscp Acosta Shania DO Work Phone: Start: 11-13-2023 Cytp cerv/vag auto t hin layer prep mnl screen Acosta Shania DO Work Phone: Plan of Treatment Date Care Activity Detail Author Start: 01-10-2025 Adult BMI Screening Adult BMI Screen ing [facility] Start: 01-10-2025 Tobacco Screening Tobacco Screening [facility] Start: 05-12-2024 End: 05-12-2024 ambulatory 05/12/2024 1:40 PM EST Visit [facility] [address] [place] [address] Acosta Jauregui DO [address] [place] [address] [facility] Start: 04-14-2024 End: 04-14-2024 Patient encounter procedure 04/14/2024 1:20 PM EST Routine [facility] [address] [place] [id number] Acosta Jauregui DO [address] [place], [place] [id number] [facility] Start: 03-31-2024 End: 03-31-2025 [...] PM EST Routine [facility] [address] [facility] [place] [id number] Acosta Jauregui, DO [address] [place], [place] [id number] [facility] Start: 03-10-2024 End: 03-10-2024 Patient encounter procedure 03/10/2024 1:00 PM EST Routine [facility] [address] [facility] [place] [address] Acosta Jauregui, DO [address] [place], [place] [id number] [facility] Start: 02-25-2024 End: 02-24-2025 [...] placental abruption Expected: 02/11/2024 (Approximate), Expires: 02/10/2025 [facility] Work Phone: Comment on above: Expected: 02/11/2024 (Approximate), Expires: 02/10/2025 Start: 02-11-2024 End: 02-10-2025 US for US OB SCAN FOR GROWTH Imaging Routine Thyroid disease ([facility]) 29 weeks gestation of History of placental abruption Expected: 02/11/2024 (Approximate), Expires: 02/10/2025 [facility] Comment on above: Expected: 02/11/2024 (Approximate), Expires: 02/10/2025 Start: 02-11-2024 End: 02-11-2024 Patient encounter procedure [facility] Comment on above: Arrived Start: 01-14-2024 End: 01-13-2025 CBC panel - Blood by Automated count CBC Lab Routine Diabetes mellitus screening Expected: 01/14/2024 (Approximate), Expires: 01/13/2025 [facility] Work Phone: Comment on above: Expected: 01/14/2024 (Approximate), Expires: 01/13/2025 Start: 01-14-2024 End: 01-14-2024 Patient encounter procedure 01/14/2024 1:20 PM EDT Routine [facility] [address] [place] [address] Acosta Jauregui, [address] [facility] [address] [place], [place] [id number] [facility] Start: 12-30-2023 Covid-19 Vaccine ( season) Covid-19 Vaccine () [facility] Start: 12-30-2023 Influenza vaccination [facility] Start: 08-15-2023 End: 11-14-2023 Thyroglobulin and Thyrogobulin Ab panel - Serum or Plasma THYROGLOBULIN, SERUM WITH REFLEX TO IA OR LC-MS/MS Lab Routine Thyroid cancer (HCC) Expected: 08/15/2023, Expires: 11/14/2023 [facility] Work Phone: Comment on above: Expected: 08/15/2023 , Expires: 11/14/2023 Start: 08-15-2023 End: 11-14-2023 Thyrotropin [Units/volume] in Serum or Plasma THYROID STIMULATING HORMONE Lab Routine Thyroid cancer (HCC) Expected: 08/15/2023, Expires: 11/14/2023 [facility] Work Phone: Comment on above: Expected: 08/15/2023 , Expires: 11/14/2023 Start: 08-15-2023 End: 11-14-2023 Thyroxine (T4) [Mass/volume] in Serum or Plasma T4/THYROXINE Lab Routine Thyroid cancer (HCC) Expected: 08/15/2023, Expires: 11/14/2023 [facility] Work Phone: Comment on above: Expected: 08/15/2023 , Expires: 11/14/2023 Start: 06-26-2023 End: 06-26-2023 Professional / ancillary services management 06/26/2023 1:00 PM EST Ancillary Procedure [facility] [address] [place] [address] [place] [phone] [facility] Start: 06-12-2023 End: 06-12-2024 US for US PELVIS-TRANSVAG IF INDICATED Imaging Routine Amenorrhea Expected: 06/12/2023 (Approximate), Expires: 06/12/2024 [facility] Comment on above: Expected: 06/12/2023 (Approximate), Expires: 06/12/2024 Start: 04-30-2023 Behavioral Health Screening Behavioral Health Screening [facility] Start: 04-30-2023 Depression Assessment Depression Ass essment [facility] Start: 12-29-2022 Covid-19 Vaccine ( season) Covid-19 Vaccine () [facility] Start: 12-29-2022 Influenza vaccination [facility] Start: 07-02-2022 End: 09-01-2022 THYROGLOBULIN BY MASS SPECTROMETRY THYROGLOBULIN BY MASS SPECTROMETRY Lab Routine Thyroid cancer (HCC) Expected: 07/02/2022, Expires: 09/01/2022 [facility] Work Phone: Comment on above: Expected: 07/02/2022 , Expires: 09/01/2022 Start: 07-02-2022 End: 09-01-2022 Thyrotropin [Units/volume] in Serum or Plasma TSH BLD Lab Routine Thyroid cancer (HCC) Expected: 07/02/2022, Expires: 09/01/2022 [facility] Work Phone: Comment on above: Expected: 07/02/2022 , Expires: 09/01/2022 Start: 07-02-2022 End: 09-01-2022 Thyroxine (T4) [Mass/volume] in Serum or Plasma T4/THYROXINE BLOOD Lab Routine Thyroid cancer (HCC) Expected: 07/02/2022, Expires: 09/01/2022 [facility] Work Phone: Comment on above: Expected: 07/02/2022 , Expires: 09/01/2022 Start: 04-30-2022 [facility] Start: 2022 HPV TESTING HPV TESTING [facility] Start: 2022 Screening for malign ant neoplasm of cervix HPV Testing [facility] Start: 12-29-2021 Influenza vaccination INFLUENZA (#1) [facility] Start: 04-30-2021 DEPRESSION ASSESSMENT DEPRESSION ASS [facility] Start: 2013 PAP TESTING PAP TESTING [facility] Start: 2013 Screening for malign ant neoplasm of cervix [facility] Start: 2011 DTaP,Tdap and Td Vaccines (1 - Tdap) DTaP,Tdap and Td Vaccines (1 - Tdap) [facility] Start: 2011 Hepatitis B Vaccine (1 of 3 - 19+ 3-dose series) Hepatitis B Vaccine (1 of 3 - 19+ 3-dose series) [facility] Start: 2011 Urine microalbumin profile [facility] Start: 2010 Adult BMI Follow Up Plan Adult BMI Follow Up Plan [facility] Start: 2010 Anxiety Screening Anxiety Screening [facility] Start: 2010 Depression Screening Depression Scre ening [facility] Start: 2010 HEPATITIS C SCREENING HEPATITIS C [facility] Start: 2010 Hepatitis C screening Hepatitis C [facility] Start: 2010 HIV SCREENING HIV SCREENING [facility] Start: 2010 HIV screening HIV Screening [facility] Start: 2004 Depression Screening Depression Scre ing [facility] Start: 1998 PNEUMOCOCCAL (1 - PCV) PNEUMOCOCCAL (1 - PCV) [facility] Start: 1998 Pneumococcal vaccination [facility] Start: 1992 COVID-19 VACCINE (#1) COVID-19 VACCI NE (#1) [facility] Start: 1992 HEPATITIS B (1 of 3 - 3-dose series) HEPATITIS B (1 of 3 - 3-dose series) [facility] Start: 1992 Hepatitis B Vaccine (1 of 3 - 3-dose series) Hepatitis B Vaccine (1 of 3 - 3-dose series) [facility] Start: 1992 Tobacco Counseling Tobacco Counselin [facility] CBC W Auto Different ial panel - Blood CBC and differential Lab Routine Amenorrhea Ordered: 06/12/2023 [facility] Comment on above: Ordered: 06/12/2023 hCG, quantitative, hCG, quantitative, Lab Routine Amenorrhea Ordered: 06/12/2023 [facility] Comment on above: Ordered: 06/12/2023 Hemoglobin A1c measurement Hemoglobin A1c Lab Routine Amenorrhea Ordered: 06/12/2023 [facility] Comment on above: Ordered: 06/12/2023 Hemoglobin A1c/Hemoglobin.total in Blood Hemoglobin A1c Lab Routine Diabetes mellitus screening Ordered: 01/14/2024 [facility] Comment on above: Ordered: 01/14/2024 Hemoglobin A1c/Hemoglobin.total in Blood Hemoglobin A1c Lab Routine Diabetes mellitus screening Ordered: 12/17/2023 [facility] Work Phone: Comment on above: Ordered: 12/17/2023 Prolactin Prolactin Lab Ro utine Amenorrhea Ordered: 06/12/2023 [facility] Comment on above: Ordered: 06/12/2023 Thyrotropin [Units/volume] in Serum or Plasma TSH Lab Routine Amenorrhea Ordered: 06/12/2023 [facility] Work Phone: Comment on above: Ordered: 06/12/2023 [facility] Payers Date Payer Category Payer Medicaid HMO [employer] [id number] 2020 Medicaid [id number] 2020 Medicaid (Managed Care) [employer] [id number] 1992 Unknown [id number] 2.16.840.1.856238.3.579.2. 593 1992 Unknown [id number] 2.16.840.1.175901.3.579.2. 593 1992 Unknown [id number] 2.16.840.1.339954.3.579.2. 593 1992 Unknown [id number] 2.16.840.1.946489.3.579.2. 593 1992 Unknown [id number] 2.16.840.1.604816.3.579.2. 593 1992 Unknown [id number] 2.16.840.1.067480.3.579.2. 593 1992 Unknown [id number] 2.16.840.1.239562.3.579.2. 593 1992 Unknown [id number] 2.16.840.1.624286.3.579.2. 593 1992 Unknown [id number] 2.16.840.1.197433.3.579.2. 593 1992 Unknown [id number] 2.16.840.1.636761.3.579.2. 593 1992 Unknown [id number] 2.16.840.1.018807.3.579.2. 593 1992 Unknown [id number] 2.16.840.1.169624.3.579.2. 593 1992 Unknown [id number] 2.16.840.1.817959.3.579.2. 593 1992 Unknown [id number] 2.16.840.1.314826.3.579.2. 593 1992 Unknown [id number] 2.16.840.1.804188.3.579.2. 593 1992 Unknown [id number] 2.16.840.1.500248.3.579.2. 1286 1992 Unknown [id number] 2.16.840.1.329327.3.579.2. 1286 1992 Unknown [id number] 2.16.840.1.372239.3.579.2. 1259 1992 Unknown [id number] 2.16.840.1.861146.3.579.2. 1259 1992 Unknown [id number] 2.16.840.1.540048.3.579.2. 9 1992 Unknown [id number] 2.16.840.1.094955.3.579.2. 9 1992 Unknown [id number] 2.16.840.1.854125.3.579.2. 9 1992 Unknown [id number] 2.16.840.1.487930.3.579.2. 1258 1992 Unknown [id number] 2.16.840.1.685371.3.579.2. 9 1992 Unknown [id number] 2.16.840.1.126167.3.579.2. 9 1992 Unknown [id number] 2.16.840.1.137240.3.579.2. 9 1992 Unknown [id number] 2.16.840.1.243796.3.579.2. 9 1992 Unknown [id number] 2.16.840.1.473716.3.579.2. 9 1992 Unknown [id number] 2.16.840.1.760152.3.579.2. 9 1959 Unknown [id number] Social History Date Type Detail Facility Start: 04-11-2022 End: 09-23-2022 Tobacco smoking status NHIS Smokes tobacco daily [facility] History of tobacco use [facility] Start: 04-11-2022 End: 09-14-2023 Cigarettes smoked current (pack per day) - Reported 1 [facility] Start: 04-11-2022 End: 09-23-2022 Tobacco use and exposure Smokeless tobacco non-user [facility] Start: 04-11-2022 End: 12-17-2023 Alcohol intake Current drinker of alcohol (finding) [facility] Start: 04-11-2022 Alcohol Comment socially [facility] Start: 1990 Sex Assigned At Not on file [facility] Start: 05-04-2022 End: 09-14-2023 Tobacco use panel [facility] Adult Depression Screening Assessment 0 [facility] Start: 10-03-2022 Alcohol Comment caffeine intak e: 1-2 cups per day [facility] Start: 1990 Sex Assigned At Female N [facility] Start: 10-04-2022 Gender identity Identifies as female gender (finding) [facility] Start: 08-06-2023 [facility] Start: 01-11-2024 Alcoholic beverage intake Ex-drinker (finding) [facility] Start: 08-26-2018 Sex Female (finding) [facility] Clinical Notes 03-07-2022 to 04-14-2024 Kerline Mariehoracio, [facility] - 04/14/2024 1:20 PM ESTKerline Clement, [facility] - 03/31/2024 1:30 PM ESTSusan Spitler, [facility] - 03/24/2024 1:00 PM ESTSusan Spitler, [facility] - 03/10/2024 1:00 PM EST Note Date & Type Note Facility 04-14-2024 History of Present illness Narrative Reason for Appointment: Patient ID: Amanda Cortez is a 34 y.o. female who presents for Routine Visit Patient presents today for Return OB appointment. MEDICATIONS Current Outpatient Medications Medication Instructions aspirin 81 mg, Oral, Daily azithromycin (Zithromax Z-Jacobo) 250 MG tablet As directed benzocaine (Baby Orajel) 7.5 % oral gel 1 application , 3 times daily PRN citalopram (CELEXA) 20 mg, Oral, Every morning levothyroxine (SYNTHROID) 25 mcg, Oral, Daily before breakfast levothyroxine (SYNTHROID, LEVOXYL) 200 mcg, Oral, Daily before breakfast omeprazole (PRILOSEC) 40 mg, Daily before breakfast 27-1 MG tablet 1 tablet, Oral, Daily terconazole (Terazol 7) 0.4 % vaginal cream 1 applicator, Vaginal, Nightly ALLERGIES Allergies Allergen Reactions Cefaclor Anaphylaxis Cephalosporins [...] nursing note reviewed. Exam conducted with a kiln burner present. Vitals: Estimated body mass index is 39.69 kg/m as calculated from the following: Height as of 23: 5' 2 . Weight as of this encounter: 217 lb. BP: 122/72 Patient's last menstrual period was 06/11/2023. ASSESSMENT & PLAN ICD-10-CM 1. Third trimester Z34.93 POCT urinalysis dipstick manually resulted 2. 38 weeks gestation of Z3A.38 Return OB: Patient presents today for a routine obstetrics appointment. Patient is currently 38w0d . Patient states she is doing well but has complaints of being tired due to current . Patient has verbalizes frequent movement. labor precautions was discussed/given and patient was instructed to perform kick counts three times a day. Cervical check performed- pt to be induced Sunday at 0000. Pitocin at 0300. Orders Placed This Encounter Procedures POCT urinalysis dipstick manually resulted Follow Up: Patient is to return to office in 1 week for routine OB appointment. Documented by Kerline Clement LPN on behalf of: Acosta Jauregui DO documented in this encounter [facility] 03-31-2024 History of Present illness Narrative Reason [...] nursing note reviewed. Exam conducted with a kiln burner present. Vitals: Estimated body mass index is [...] Acosta Jauregui DO documented in this encounter [facility] 03-24-2024 History of Present illness Narrative Reason [...] Date Noted Papillary thyroid carcinoma ([facility]) 09/23/2022 Thyroid disease ([facility]) 09/23/2022 Bilateral tinnitus 10/04/2022 Asymmetric SNHL (sensorineural [...] nursing note reviewed. Exam conducted with a kiln burner present. Vitals: Estimated body mass index is [...] Acosta Jauregui DO documented in this encounter [facility] 03-10-2024 History of Present illness Narrative Reason [...] nursing note reviewed. Exam conducted with a kiln burner present. Vitals: Estimated body mass index is [...] 2 weeks. Patient will continue NST/BPP at [facility] as well. Documented by Sylvia Rader LPN on behalf of: Acosta Jauregui DO documented in this encounter [facility] 02-26-2024 History of Present illness Narrative [facility] Patient visited the Food Clinic and received food documented in this encounter [facility] 02-25-2024 History of Present illness Narrative [...] weeks gestation of Z3A.31 3. Thyroid disease ([facility]) E07.9 US biophysical profile w non stress [...] of: MAXIMILIAN Lombardo documented in this encounter [facility] 02-11-2024 History of Present illness Narrative Reason [...] Date Noted Papillary thyroid carcinoma (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) 09/23/2022 Vaginal delivery 09/23/2022 Past Medical History: [...] nursing note reviewed. Exam conducted with a kiln burner present. Vitals: Estimated body mass index is [...] Acosta Jauregui DO documented in this encounter [facility] 01-24-2024 Telephone encounter Note I notified Amanda of Dr. Garcia's response. She will call after she delivers in March 2024 to scheduled follow up. Irais Turpin RN [facility] 01-24-2024 Miscellaneous Notes I notified Amanda of Dr. Garcia's response. She will call after she delivers in March 2024 to scheduled follow up. Irais Turpin RN Amanda called stating she is currently and is being followed very closely by WHEELCHAIR RENTAL CLERK in [place] and her local WHEELCHAIR RENTAL CLERK. She states her high risk is d/t [...] Irais Turpin RN documented in this encounter [facility] 01-23-2024 Telephone encounter Note Amanda called stating she is currently and is being followed very closely by WHEELCHAIR RENTAL CLERK in [place] and her local WHEELCHAIR RENTAL CLERK. She states her high risk is d/t [...] possible lab work? Thanks Irais Turpin RN [facility] 01-14-2024 History of Present illness Narrative [...] Date Noted Papillary thyroid carcinoma ([facility]) 09/23/2022 Bilateral tinnitus 10/04/2022 Asymmetric SNHL (sensorineural [...] nursing note reviewed. Exam conducted with a kiln burner present. Vitals: Estimated body mass index is [...] Acosta Jauregui DO documented in this encounter [facility] 12-17-2023 History of Present illness Narrative Reason for Appointment: Patient ID: Amanda Cortez is a 33 y.o. female who presents for Routine Visit Patient presents today for Return OB appointment. MEDICATIONS Current Outpatient Medications Medication Instructions aspirin 81 mg, Oral, Daily citalopram (CELEXA) 20 mg, Oral, Every morning levothyroxine (Synthroid, Levoxyl) 175 MCG tablet TAKE ONE TABLET BY MOUTH ONCE DAILY BEFORE BREAKFAST levothyroxine (SYNTHROID, LEVOXYL) 200 mcg, Oral, Daily before breakfast Levsin/SL 0.125 MG SL tablet 1 tablet under the tongue and allow to dissolve as needed Sublingual AC and HS omeprazole (PRILOSEC) 40 mg, Oral, Daily before [...] depression (CMS/HCC) 09/23/2022 Thyroid mass ([facility]/HCC) 09/23/2022 Vaginal delivery 09/23/2022 Past Medical History: [...] nursing note reviewed. Exam conducted with a kiln burner present. Vitals: Estimated body mass index is 39.51 kg/m as calculated from the following: Height as of 01/03/23: 5' 2 . Weight as of this encounter: 216 lb. BP: 124/80 Patient's last menstrual period was 06/11/2023. ASSESSMENT & PLAN ICD-10-CM 1. Second trimester Z34.92 POCT urinalysis dipstick manually resulted 2. Diabetes mellitus screening Z13.1 Hemoglobin A1c CANCELED: CBC CANCELED: Glucose tolerance, 1 hour Patient presents today for a routine obstetrics appointment. Patient is currently 21w0d with a Estimated Date of Delivery: 04/28/24. Patient will have IOL on 04/18/24. Patient desires to have bilateral tubal ligation 7 weeks after delivery. [facility] Patient had ultrasound done today. Patient to return to clinic in 4 weeks for routine OB appointment. Patient will have Growth scans starting at 28 weeks and NST/BPP starting at 32 weeks gestation. Documented by Sylvia Rader LPN on behalf of: Acosta Jauregui DO documented in this encounter [facility] 11-13-[address] Christine office received ref and they will be calling patient to schedule appointment. Records faxed to Dr. Arteaga. Lawanda boswell send records to [employer] in your box Images from the original note were not included. Spoke to pt. She would like to see endocrinology in [place]. Pt's OB did adjust synthroid recently and has been monitoring labs. TREASURE- please sign pended order. PSS- please arrange visit when order is signed. KAREN Peters Tiffany Weyer, Angela, RN Previous Messages ----- Message ----- From: Arslan Garcia MD Sent: 11/02/2023 12:08 PM EDT To: Obi Dunlap; [facility] Given what sounds like patient is in first trimester and ongoing concerns of breast-feeding recommend she follow-up with endocrinology. documented in this encounter [facility] 11-13-[address] Christine office received ref and they will be calling patient to schedule appointment. [facility] 11-12-2023 Telephone encounter Note Records faxed to Dr. Arteaga. [facility] 11-12-2023 Telephone encounter Note Lawanda boswell send records to [employer] in your box [facility] 11-12-2023 Telephone encounter Note Images from the original note were not included. Spoke to pt. She would like to see endocrinology in [place]. Pt's OB did adjust synthroid recently and has been monitoring labs. TREASURE- please sign pended order. PSS- please arrange visit when order is signed. KAREN Peters, Danna Mcdowell RN Previous Messages ----- Message ----- From: Arslan Garcia MD Sent: 11/02/2023 12:08 PM EDT To: Obi Dunlap; [facility] Nunez [facility] Nurse Pool Given what sounds like patient is in first trimester and ongoing concerns of breast-feeding recommend she follow-up with endocrinology. [facility] 10-24-2023 Note HNO ID: [id number] Author: Arslan GARCIA MD Service: ? Author Type: Physician Type: Progress Notes Filed: 11/02/2023 12:08 Note Text: Unable to reach patient. [facility] 10-24-2023 History of Present illness Narrative Unable to reach patient. documented in this encounter [facility] 08-14-2023 Miscellaneous Notes TREASURE- please sign [...] Danna Pitts RN documented in this encounter [facility] 07-19-2023 Miscellaneous Notes Pt called to request labs sent to [facility]. Faxed to central scheduling. Edna Sal RN documented in this encounter [facility] 06-12-2023 History of Present illness Narrative Reason for Appointment: Patient ID: Amanda Crotez is a 33 y.o. female who presents [...] Date Noted Papillary thyroid carcinoma ([facility]) 09/23/2022 Bilateral tinnitus 10/04/2022 Asymmetric SNHL (sensorineural [...] calculated from the following: Height as of 9/6/23: 5' 2 . Weight as of this [...] Acosta Jauregui DO documented in this encounter [facility] 02-14-2023 Miscellaneous Notes Images from the original note were not included. Patient is scheduled for appointments Arslan Garcia MD [facility]; Obi Genao 4 months with labs. Orders have been placed in [facility]. documented in this encounter [facility] 02-08-2023 Note HNO ID: [id number] Author: Arslan Garcia MD Service: ? Author [...] Time Spent: 6 minutes Arslan Garcia MD [facility] 11-09-2022 Miscellaneous Notes Images from the original note were not included. Patient is called and scheduled. Arslan Garcia MD [facility] Rad Nurse [place]; Obi Genao 8 weeks with labs, orders placed, thank you documented in this encounter [facility] 07-17-2022 Miscellaneous Notes Appointment has been changed to phone appt. Tj Funez Pt called in requesting to be switched to a phone visit tomorrow. Her kids are on spring break and a couple of them are sick. Labs have been done and resulted. PSS- please change to phone visit for tomorrow. Danna Pitts, RN documented in this encounter [facility] 05-04-2022 History of Present illness Narrative Radiation Oncology - FollowupNote PATIENT NAME: Amanda Cortez PATIENT : 1990 DIAGNOSIS: Thyroid cancer, classic papillary thyroid carcinoma, status post total thyroidectomy and right neck exploration on 03/07/2022, stage I [id number]. HPI: Patient returns after further work-up and [...] and right neck exploration on 03/07/2022, stage [id number]. Patient does have significant thyroglobulin antibody however [...] for this encounter. documented in this encounter [facility] 04-25-2022 Miscellaneous Notes Patient had been rescheduled. jT Funez Images from the original note were not included. Called patient to reschedule, LMOV. MD Jessica Jenkins [facility] [place]; Tj Funez Unable to reach please reschedule documented in this encounter [facility] 04-11-2022 Nurse Note Amanda Cortez presents in office today for: Lab Draw during Office Visit . Ordering Provider: Felipe Garcia M.D. Test (s) ordered: TG Method for obtaining blood: Phlebotomy was performed, accessing right antecubital vein. Needle removed intact. Dressing secured. Patient denies discomfort, dizziness, light-headedness or weakness and left the department without assist. Danna Pitts RN documented in this encounter [facility] 03-07-2022 Note OPERATIVE NOTE OPERATION DATE: [...] the recovery room in good condition. [facility] Evaluation note Diagnosis Thyroid cancer (HCC)- Primary Malignant neoplasm of thyroid gland [facility] Thyroid cancer (HCC)- Primary Malignant neoplasm of thyroid gland [facility] Diagnosis Missed menses Amenorrhea Absence of menstruation documented in this encounter [facility]* Diagnosis Thyroid cancer (HCC)- Primary Malignant neoplasm of thyroid gland [facility] Diagnosis Thyroid cancer (HCC)- Primary Malignant neoplasm of thyroid gland [facility] Diagnosis Thyroid cancer (HCC)- Primary Malignant neoplasm of thyroid gland [facility] Diagnosis Third trimester state, incidental [...] of Food insecurity [facility] Diagnosis Third trimester state, incidental 33 weeks gestation of Thyroid disease (CMS/HCC) Unspecified disorder of thyroid documented in this encounter [facility] Healthcare[facility] note* Diagnosis 35 weeks gestation of Third trimester state, incidental documented in this encounter [facility]* Diagnosis 36 weeks gestation of Third trimester state, incidental documented in this encounter [facility] note* Diagnosis 25 weeks gestation of Diabetes mellitus screening Screening for diabetes mellitus First trimester state, incidental [facility] Diagnosis Third trimester state, incidental 38 weeks gestation of [facility] Diagnosis Second trimester state, incidental Diabetes mellitus screening Screening for diabetes mellitus documented in this encounter [facility]ructionsNot on filedocumented in [facility] Purpose Family History No [...] cancer (HCC) Procedures CONSULT TO ENDOCRINOLOGY OFFICE/OUTPATIENT [facility] 60 MINUTES Arslan Garcia MD [address] [place] [address] [place] [address] Referral ID Status Reason Start Date Expiration Date Visits Requested Visits Authorized [id number] Authorized PCP Requested Referral 11/12/2023 11/11/2024 1 1 Additional Source Comments Source Comments (unrecognize d section and content) In the event this informatio n is protected by the Federal Confidentiality of Alcohol and Drug Abuse Patient Records regulations: The Federal rules restrict any use of the information to criminally investigate or prosecute any alcohol or drug abuse patient.[facility] the event this information is protected by the Federal Confidentiality of Alcohol and Drug Abuse Patient Records regulations: The Federal rules restrict any use of the information to criminally investigate or prosecute any alcohol or drug abuse patient.[facility] the event this information is protected by the Federal Confidentiality of Alcohol and Drug Abuse Patient Records regulations: The Federal rules restrict any use of the information to criminally investigate or prosecute any alcohol or drug abuse patient.[facility] the event this information is protected by the Federal Confidentiality of Alcohol and Drug Abuse Patient Records regulations: The Federal rules restrict any use of the information to criminally investigate or prosecute any alcohol or drug abuse patient.[facility] the event this information is protected by the Federal Confidentiality of Alcohol and Drug Abuse Patient Records regulations: The Federal rules restrict any use of the information to criminally investigate or prosecute any alcohol or drug abuse patient.[facility] the event this information is protected by the Federal Confidentiality of Alcohol and Drug Abuse Patient Records regulations: The Federal rules restrict any use of the information to criminally investigate or prosecute any alcohol or drug abuse patient.[facility] the event this information is protected by the Federal Confidentiality of Alcohol and Drug Abuse Patient Records regulations: The Federal rules restrict any use of the information to criminally investigate or prosecute any alcohol or drug abuse patient.[facility] the event this information is protected by the Federal Confidentiality of Alcohol and Drug Abuse Patient Records regulations: The Federal rules restrict any use of the information to criminally investigate or prosecute any alcohol or drug abuse patient.[facility] the event this information is protected by the Federal Confidentiality of Alcohol and Drug Abuse Patient Records regulations: The Federal rules restrict any use of the information to criminally investigate or prosecute any alcohol or drug abuse patient.[facility] the event this information is protected by the Federal Confidentiality of Alcohol and Drug Abuse Patient Records regulations: The Federal rules restrict any use of the information to criminally investigate or prosecute any alcohol or drug abuse patient.[facility] the event this information is protected by the Federal Confidentiality of Alcohol and Drug Abuse Patient Records regulations: The Federal rules restrict any use of the information to criminally investigate or prosecute any alcohol or drug abuse patient.[facility] the event this information is protected by the Federal Confidentiality of Alcohol and Drug Abuse Patient Records regulations: The Federal rules restrict any use of the information to criminally investigate or prosecute any alcohol or drug abuse patient.[facility] Reason for Visit (unrecogniz ed section [...] Care Teams (unrecognized sec tion and content) Cloth Finishing Range Tender Relationship Specialty Start Date End Date Sara Medellin MD [address] [place] [address] PCP - General Family Medicine 04/11/22 Cloth Finishing Range Tender Relationship Specialty Start Date End Date Sara Medellin MD [address] [place] [address] PCP - General Family Medicine 04/11/22 Cloth Finishing Range Tender Relationship Specialty Start Date End Date Sara Medellin MD [address] [place] [address] PCP - General Family Medicine 04/11/22 Cloth Finishing Range Tender Relationship Specialty Start Date End Date Sara Medellin MD PCP - General Family Medicine 04/11/22 Cloth Finishing Range Tender Relationship Specialty Start Date End Date Sara Medellin MD PCP - General Family Medicine 04/11/22 Cloth Finishing Range Tender Relationship Specialty Start Date End Date Sara Medellin MD [address] [place] [address] PCP - General Family Medicine 10/03/22 Cloth Finishing Range Tender Relationship Specialty Start Date End Date Sara Medellin MD PCP - General Family Medicine 04/11/22 Cloth Finishing Range Tender Relationship Specialty Start Date End Date Sara Medellin MD PCP - General Family Medicine 04/11/22 Cloth Finishing Range Tender Relationship Specialty Start Date End Date Sara Medellin MD PCP - General Family Medicine 04/11/22 Cloth Finishing Range Tender Relationship Specialty Start Date End Date Sara Medellin MD [address] [place] [address] PCP - General Family Medicine 10/03/22 Cloth Finishing Range Tender Relationship Specialty Start Date End Date Sara Medellin MD [address] [place] [address] PCP - General Family Medicine 10/03/22 Cloth Finishing Range Tender Relationship Specialty Start Date End Date Sara Medellin MD [address] [place] [facility] [address] PCP - General Family Medicine 10/03/22 Cloth Finishing Range Tender Relationship Specialty Start Date End Date Sara Medellin MD [address] [facility] [place] [address] PCP - General 01/10/24 Cloth Finishing Range Tender Relationship Specialty Start Date End Date Sara Medellin MD [address] [place] [facility] [address] PCP - General Family Medicine 10/03/22 Cloth Finishing Range Tender Relationship Specialty Start Date End Date Sara Medellin MD [address] [place] [facility] [address] PCP - General Family Medicine 10/03/22 Cloth Finishing Range Tender Relationship Specialty Start Date End Date Sara Medellin MD [address] [place] [facility] [address] PCP - General Family Medicine 10/03/22 Cloth Finishing Range Tender Relationship Specialty Start Date End Date Sara Medellin MD [address] [place] [facility] [address] PCP - General Family Medicine 10/03/22 Cloth Finishing Range Tender Relationship Specialty Start Date End Date Sara Medellin MD [address] [place] [facility] [address] PCP - General Family Medicine 10/03/22 Cloth Finishing Range Tender Relationship Specialty Start Date End Date Sara Medellin MD [address] [facility] [place] [address] PCP - General Family Medicine 10/03/22 INFORMATION SOURCE (unrecogn ized section and content) DATE CREATED AUTHOR 09/02/2022 [facility] DATE CREATED AUTHOR AUTHOR'S ORGANIZ ATION 01/11/2024 [facility] DATE CREATED AUTHOR AUTHOR'S ORGANIZ ATION 01/13/2024 [facility] DATE CREATED AUTHOR AUTHOR'S ORGANIZ ATION 04/16/2024 [facility] d[facility] Specialists EPIC FOR RECORDS PERTAINING [...] BE BASED ON THE PRIMARY CLINICAL RECORDS. [employer] [facility]. provides no warranty or guarantee of the accuracy or completeness of information in this document.
[2024-04-18 01:56] LABS: Amphetamine Screen Urine NEGATIVE (NEGATIVE); Barbiturates Screen Urine NEGATIVE (NEGATIVE); Benzodiazepines Screen Urine NEGATIVE (NEGATIVE); Buprenorphine Screen Urine NEGATIVE (NEGATIVE); Cannabinoid Screen Urine NEGATIVE (NEGATIVE); Cocaine Screen Urine NEGATIVE (NEGATIVE); Methadone Screen Urine NEGATIVE (NEGATIVE); Methamphetamines Screen Urine NEGATIVE (NEGATIVE); Opiate Screen Urine NEGATIVE (NEGATIVE); Oxycodone Screen Urine NEGATIVE (NEGATIVE); Phencyclidine Screen Urine NEGATIVE (NEGATIVE); Tricyclic Antidepressant Urine NEGATIVE (NEGATIVE)
[2024-04-18] MEDS: OXYTOCIN/0.9 % SODIUM CHLORIDE 10 UNITS/500 ML PLAST..BAG 6 UNIT IV (03:00)
[2024-04-18] MEDS: 0.9 % SODIUM CHLORIDE 1,000 ML 125 ML IV ×2 (03:06→06:15)
[2024-04-18 03:45] LABS: Hematocrit 35.8 % (36.0-48.0); Hemoglobin 11.6 g/dL (12.0-16.0); Mean Corpuscular HGB Conc 32.4 g/dL (29.9-35.2); Mean Corpuscular Hemoglobin 28.9 pg (26.7-34.0); Mean Corpuscular Volume 89.1 fL (81.0-99.0); Mean Platelet Volume 10.4 fL (9.5-13.5); Platelet Count 321 10^3/uL (150-450); Red Blood Count 4.02 10^6/uL (4.20-5.40); Red Cell Distribution Width 13.3 % (11.0-15.0); White Blood Count 13.9 10^3/uL (4.0-11.0)
[2024-04-18] MEDS: ROPIVACAINE HCL/PF 400 MG/200 ML PREMIX 10 MG EPIDURAL (06:29)
--- OUTSIDE RECORDS SUMMARY | 2024-04-18 07:23 | XMS_ITS | CCD ---
Author Organization [facility] Care Team Providers Care Socket Puller Name Role Phone Sara Medellin MD Primary Care Provider [phone] RAIZA, DR GUERRA Consulting Unavailable HOY ., [...] GUERRA Admitting Unavailable MORGOLindsay, JOSE Consulting Unavailable ETGAN, YAMILET Consulting Unavailable CLARISSA NEWSOME Consulting Unavailable [...] Unavailable Sara Medellin MD Primary Care Provider [phone] Sara Medellin MD Primary Care Provider [phone] Sara Medellin MD Primary Care Provider [phone] SARA MEDELLIN Primary Care Unavailable Arslan GARCIA Attending Unavailable SARA MEDELLIN Primary Care Unavailable Arslan GARCIA Attending Unavailable SARA MEDELLIN Primary Care Unavailable YFN MICHELLE Attending Unavailable SHANIA, ACOSTA R Referring Unavailable SARA MEDELLIN Primary Care Unavailable SHANIA, ACOSTA R Referring Unavailable SARA MEDELLIN Primary Care Unavailable Sara Medellin MD Primary Care Provider [phone] SHANIA, ACOSTA Attending Unavailable SHANIA, ACOSTA Attending [...] 12-13-20 22 Hives, Shortness of Breath, Anaphylaxis [facility] (13 sources) Penicillins; Translations: [PENICILLINS] Drug Allergy 04-11-20 22 Hives, Shortness of Breath [facility] (2 sources) Cefaclor Drug Allergy 05-10-19 14 [facility] (2 sources) Penicillins Drug allergy (disorder) 05-10-19 14 [facility] (20 sources) Penicillin G sodium; Translations: [PENICILLIN G SODIUM] Allergy to substance 09-24-19 Anaphylaxis [facility] (20 sources) Cephalosporins (Antibiotic); Translations: [CEPHALOSPORINS] Propensity [...] PRODUCT (12 sources) OTC PRODUCT Supplement by [employer] for breast feeding Active OTC PRODUCT Supp lement by [employer] for breast feeding 0 Active Comment on above: Supplement by [employer] for breast feeding 27-1 MG tablet [...] (Original) hyoscyamine sulfate 0.125 mg sublingual tablet (6 sources) Start: 06-26-2023 End: 01-14-2024 Levsin/SL 0.125 [...] 08-07-2022 Episodic Other aftercare (1 source) Other prison (current) drug therapy; Translations: [OTH GROUP HOME CURRENT DRUG THERAPY] Onset: 08-24-2022 Episodic Other [...] UA Negative Negative - 4(70) +++ mg/dL [facility] Blood, UA Negative Negative - 50 Maury/mcL [facility] Healthcare Clarity, UA Clear [facility] Color, UA Yellow [facility] Glucose, UA Negative Negative - 1999(110) ++++ mg/dL [facility] Interpretation and review of laboratory results Abnormal [facility] Ketones, UA Negative Negative - 160(16) ++++ mg/dL [facility] Leukocytes, UA Positive Negative - 500+++ Fan/mcL [facility] Nitrite, UA Negative Negative - Positive [facility] pH, UA 7 5 - 9 [facility] Protein, UA Trace Negative - 1999(20) ++++ mg/dL [facility] Spec Grav, UA 1.025 1 - 1.03 [facility] care Urobilinogen, UA 1.0 0.2 - 12 mg/dL [facility] Urinalysis macro (dipstick) panel (U)on 03-24-2024 Bilirubin, UA Positive Negative - 4(70) +++ mg/dL [facility] Comment on above: moderate Blood, UA Negative Negative - 50 Maury/mcL [facility] Healthcare Clarity, UA Clear [facility] Color, UA Amanda [facility] Glucose, UA Positive Negative - 1999(110) ++++ mg/dL [facility] Comment on above: 100 Interpretation and review of laboratory results Abnormal [facility] Ketones, UA Positive Negative - 160(16) ++++ mg/dL [facility] Comment on above: 15 Leukocytes, UA Negative Negative - 500+++ Fan/mcL [facility] Nitrite, UA Negative Negative - Positive [facility] pH, UA 6.5 5 - 9 [facility] Protein, UA Positive Negative - 1999(20) ++++ mg/dL [facility] Comment on above: 100 Spec Grav, UA 1.025 1 - 1.03 [facility] Urobilinogen, UA 2.0 0.2 - 12 mg/dL [facility] Referral to Food C linicon 02-26-2024 [facility] Urinalysis macro (dipstick) panel (U)on 02-11-2024 Bilirubin, UA Negative Negative - 4(70) +++ mg/dL [facility] Blood, UA Negative Negative - 50 Maury/mcL [facility] Healthcare Clarity, UA Clear [facility] Color, UA Yellow [facility] Glucose, UA Negative Negative - 1999(110) ++++ mg/dL [facility] Interpretation and review of laboratory results Abnormal [facility] Ketones, UA Negative Negative - 160(16) ++++ mg/dL [facility] Leukocytes, UA Positive Negative - 500+++ Fan/mcL [facility] Nitrite, UA Negative Negative - Positive [facility] pH, UA 7 5 - 9 [facility] e Protein, UA Positive Negative - 1999(20) ++++ mg/dL [facility] Spec Grav, UA 1.02 1 - 1.03 [facility] Urobilinogen, UA 1.0 0.2 - 12 mg/dL [facility] ALL THYROID STIM HORMONEon 1 Interpretation and review of laboratory results Abnormal [facility] TSH Qn 28.537 m[IU]/L High [facility] Healt hcare [facility] Urinalysis macro (dipstick) panel (U)on 01-14-2024 Bilirubin, UA Positive Negative - 4(70) +++ mg/dL [facility] Blood, UA Negative Negative - 50 Maury/mcL [facility] Clarity, UA Clear [facility] Healthca re Color, UA Yellow [facility] Glucose, UA Negative Negative - 1999(110) ++++ mg/dL [facility] Interpretation and review of laboratory results Abnormal [facility] Ketones, UA Positive Negative - 160(16) ++++ mg/dL [facility] Comment on above: small Leukocytes, UA Positive Negative - 500+++ Fan/mcL [facility] Comment on above: small Nitrite, UA Negative Negative - Positive [facility] pH, UA 6.5 5 - 9 [facility] Protein, UA Negative Negative - 1999(20) ++++ mg/dL [facility] Spec Grav, UA 1.020 1 - 1.03 [facility] Urobilinogen, UA 1.0 0.2 - 12 mg/dL [facility] e ALL CBC WITH AUTO DIFFon BASOPHILS ABSOLUTE AUTO 0.0 [facility] Basophils/100 WBC (Bld) 0.3 % 0.2 - 2.0 % [facility] Eosinophils/100 WBC (Bld) 2.4 % 0.9 - 7.0 % [facility] Erythrocyte distribution width (RBC) [Ratio] 13.6 % 11.0 - 15.0 % [facility] Hematocrit (Bld) [Volume fraction] 35.0 % Low 36.0 - 48.0 % [facility] e Hemoglobin (Bld) [Mass/Vol] 11.8 g/dL Low 12.0 - 16.0 g/dL [facility] IMMATURE GRANULOCYTES ABS AUTO 0.02 [facility] Immature granulocytes/100 WBC (Bld) 0.2 % 0.0 - 0.5 % [facility] Interpretation and review of laboratory results Abnormal [facility] LYMPHOCYTES ABSOLUTE AUTO 2.1 [facility] Lymphocytes/100 WBC (Bld) 23.6 % 20.5 - 60.0 % [facility] MCH (RBC) [Entitic mass] 30.1 pg 26.7 - 34.0 pg [facility] MCHC (RBC) [Mass/Vol] 33.7 g/dL 29.9 - 35.2 g/dL [facility] MCV (RBC) [Entitic vol] 89.3 fL 81.0 - 99.0 fL [facility] MONOCYTES ABSOLUTE AUTO 0.4 [facility] Monocytes/100 WBC (Bld) 3.9 % 1.7 - 12.0 % [facility] NEUTROPHILS ABSOLUTE AUTO 6.2 [facility] Neutrophils/100 WBC (Bld) 69.6 % 43.0 - 75.0 % [facility] Platelet mean volume (Bld) [Entitic vol] 9.8 fL 9.5 - 13.5 fL [facility] EO # 0.2 [facility] PLT 224 [facility] TB RBC 3.92 Low [facility] WBC 8.9 [facility] Urinalysis macro (dipstick) panel (U)Ordered By: Kerline Clement on 12-19-2023 Bilirubin, UA Negative Negative - 4(70) +++ mg/dL [facility] Blood, UA Negative Negative - 50 Maury/mcL [facility] Clarity, UA Clear [facility] Color, UA Yellow [facility] Glucose, UA Negative Negative - 1999(110) ++++ mg/dL [facility] Interpretation and review of laboratory results Abnormal [facility] Ketones, UA Negative Negative - 160(16) ++++ mg/dL [facility] Leukocytes, UA Moderate Negative - 500+++ Fan/mcL [facility] Nitrite, UA Negative Negative - Positive [facility] Protein, UA Negative Negative - 1999(20) ++++ mg/dL [facility] Spec Grav, UA 0.010 1 - 1.03 [facility] Urobilinogen, UA 1.0 0.2 - 12 mg/dL [facility] Cytology Cervical or vaginal smear or scraping studyon 11-13-2023 [facility] CNPNon 11-12-2023 CNPN Telephone (RADTSA) AMANDA CORTEZ ([id number]) 1990 F Date Time Provider Department 11/12/23 Arslan GARCIA During your visit today, we recorded the following information about you: Danna Pitts RN 11/12/2023 11:25 AM Signed Spoke to pt. She would like to see endocrinology in [place]. Pt's OB did adjust synthroid recently and has been monitoring labs. TREASURE- please sign pended order. PSS- please arrange visit when order is signed. Danna Pitts RN [facility], Danna Mcdowell RN Previous Messages ----- Message ----- From: Arslan Garcia MD Sent: 11/02/2023 12:08 PM EDT To: Obi Kern Sec; Carlos Faust Nurse Mauro Given what sounds like patient is in first trimester and ongoing concerns of breast-feeding recommend she follow-up with endocrinology. Obi Genao 11/12/2023 11:26 AM Signed Lawanda please send records to She cardona in your box Hong HolcombClarissa Lesia 11/12/2023 1:18 PM Signed Records faxed [...] are waiting to hear back from patient. Merylchristina Nguyen Pss, Meryl 12/05/2023 9:12 AM Signed Called left message for Dr Arteaga office to call our office back re: status of this referral. Merylchristina Nguyen Pss, Meryl 12/10/2023 1:[address] Arteaga office spoke with Miguel. Per Miguel she states she called and left patient message on 11/21. As of now their office is waiting to hear back from patient. Merylchristina Nguyen Pss Nguyen Pss, Meryl 01/09/2024 2:05 [...] [C73] Order(s):CONSULT TO ENDOCRINOLOGY [9007] Order #: [id number]: [id number] FUTURE Prescriptions as of 01/09/2024 - [...] Encounter Status:Closed by DANNA PITTS on 11/13/23 [facility] Emelina 07-19-2023 AMRITA Telephone (KEVIN) AMANDA CORTEZ ([id number]) 1990 F Date Time Provider Department 07/19/23 EDNA SAL During your visit today, we recorded the following information about you: Edna Sal RN 07/19/2023 10:42 AM Signed Pt called to request labs sent to [facility]. Faxed to central scheduling. Edna Sal RN Allergies As of Date: 07/19/2023 Noted Allergy Reaction CECLOR (CEFACLOR) 04/11/2022 4 - Hives 12 - Shortness of Breath PENICILLINS 04/11/2022 4 - Hives 12 - Shortness of Breath Date Reviewed: 05/04/2022 Reviewed by: eJrman July - Fully Assessed Reason for Visit: [...] Encounter Status:Closed by EDNA SAL on 07/19/23 [facility] ALEX Telephone (ALONDRAA) AMANDA CORTEZ ([id number]) 1990 F Date Time Provider Department 06/25/23 [...] Signed Patients lab orders were sent to [facility] and I scheduled her [...] (HCC) [C73] Order(s):T4/THYROXIN E [SQT4] Order #: [id number] FUTURE THYROID STIMULATING HORMONE [SQTSH] Order #: [id number] FUTURE THYROGLOBULIN, SERUM WITH REFLEX TO IA OR LC-MS/MS [SQTHYRORF] Order #: [id number] FUTURE Prescriptions as of 08/23/2023 - levothyroxine [...] Encounter Status:Closed by Arslan GARCIA on 08/15/23 [facility]-14-2023 CNPN Telephone (NCCAP) AMANDA CORTEZ ([id number]) 1990 F Date Time Provider Department 02/14/23 [facility] During your visit today, we recorded the following information about you: Obi Genao 02/14/2023 9:54 AM Signed Patient is scheduled for appointments [facility] MD [facility]; Obi Genao 4 months with labs. Orders have been placed in [facility]. Allergies As of Date: 02/14/2023 Noted Allergy Reaction CECLOR (CEFACLOR) 04/11/2022 4 - Hives 12 - Shortness of Breath PENICILLINS 04/11/2022 4 - Hives 12 - Shortness of Breath Date Reviewed: 05/04/2022 Reviewed by: Jerman Daisy - Fully Assessed Reason for Visit: Appointment Confirmation [9175] Prescriptions as of 02/14/2023 - levothyroxine (SYNTHROID) [...] OBI GENAO on 02/14/23 Normal [facility] CBC W Auto Differential pane l (Bld)on 02-01-2023 Basophils (Bld) [#/Vol] 0.04 10*3/uL Normal <0.11 [facility] Comment on above: Order Comment: Speci men Type: BLOOD SPECIMEN Ordering Facility: [facility] Address: [address] [place] [address] Performed By: #### 5 7021-8 #### [facility] CLIA [id number] [address] [place] [address] 65435 Basophils/100 WBC (Bld) 0.5 % Normal [facility] Comment on above: Order Comment: Speci men Type: BLOOD SPECIMEN Ordering Facility: [facility] Address: [address] [place] [address] Performed By: #### 5 7021-8 #### [facility] CLIA [id number] [address] [place] [address] 76532 Differential cell count method Nom (Bld) Auto Normal [facility] Comment on above: Order Comment: Speci men Type: BLOOD SPECIMEN Ordering Facility: [facility] Address: [address] [place] [id number] Performed By: #### 5 7021-8 #### [facility] CLIA [id number] [address] [place] [address] 73392 Eosinophils (Bld) [#/Vol] 0.19 10*3/uL Normal <0.46 [facility] Comment on above: Order Comment: Speci men Type: BLOOD SPECIMEN Ordering Facility: [facility] Address: [address] [place] [address] Performed By: #### 5 7021-8 #### [facility] CLIA [id number] [address] [place] [address] 38482 Eosinophils/100 WBC (Bld) 2.5 % Normal [facility] Comment on above: Order Comment: Speci men Type: BLOOD SPECIMEN Ordering Facility: [facility] Address: [address] [place] [address] Performed By: #### 5 7021-8 #### [facility] CLIA [id number] [address] [place] [address] 78729 Erythrocyte distribution width (RBC) [Ratio] 13.3 % Normal 11.5-15.0 [facility] Comment on above: Order Comment: Speci men Type: BLOOD SPECIMEN Ordering Facility: [facility] Address: [address] [place] [address] Performed By: #### 5 7021-8 #### [facility] CLIA [id number] [address] [place] [address] 11426 Hematocrit (Bld) [Volume fraction] 47.7 % High 36.0-46.0 [facility] Comment on above: Order Comment: Speci men Type: BLOOD SPECIMEN Ordering Facility: [facility] Address: [address] [place] [address] Performed By: #### 5 7021-8 #### [facility] CLIA [id number] [address] [place] [address] 55516 Hemoglobin (Bld) [Mass/Vol] 15.6 g/dL High 11.5-15.5 [facility] Comment on above: Order Comment: Speci men Type: BLOOD SPECIMEN Ordering Facility: [facility] Address: [address] [place] [address] Performed By: #### 5 7021-8 #### [facility] CLIA [id number] [address] [place] [address] 33250 Immature granulocytes (Bld) [#/Vol] 0.03 10*3/uL Normal <0.10 [facility] Comment on above: Order Comment: Speci men Type: BLOOD SPECIMEN Ordering Facility: [facility] Address: [address] [place] [address] Performed By: #### 5 7021-8 #### [facility] CLIA [id number] [address] [place] [address] 55199 Immature granulocytes/100 WBC (Bld) 0.4 % Normal [facility] Comment on above: Order Comment: Speci men Type: BLOOD SPECIMEN Ordering Facility: [facility] Address: [address] [place] [address] Performed By: #### 5 7021-8 #### [facility] CLIA [id number] [address] [place] [address] 17942 Lymphocytes (Bld) [#/Vol] 2.30 10*3/uL Normal 1.00-4.00 [facility] Comment on above: Order Comment: Speci men Type: BLOOD SPECIMEN Ordering Facility: [facility] Address: [address] [place] [address] Performed By: #### 5 7021-8 #### [facility] CLIA [id number] [address] [place] [address] 32593 Lymphocytes/100 WBC (Bld) 29.7 % Normal [facility] Comment on above: Order Comment: Speci men Type: BLOOD SPECIMEN Ordering Facility: [facility] Address: [address] [place] [address] Performed By: #### 5 7021-8 #### [facility] CLIA [id number] [address] [place] [address] 38421 MCH (RBC) [Entitic mass] 28.8 pg Normal 26.0-34.0 [facility] Comment on above: Order Comment: Speci men Type: BLOOD SPECIMEN Ordering Facility: [facility] Address: [address] [place] [address] Performed By: #### 5 7021-8 #### [facility] CLIA [id number] [address] [place] [address] 22838 MCHC (RBC) [Mass/Vol] 32.7 g/dL Normal 30.5-36.0 [facility] Comment on above: Order Comment: Speci men Type: BLOOD SPECIMEN Ordering Facility: [facility] Address: [address] [place] [address] Performed By: #### 5 7021-8 #### [facility] CLIA [id number] [address] [place] [address] 19006 MCV (RBC) [Entitic vol] 88.2 fL Normal 80.0-100.0 [facility] Comment on above: Order Comment: Speci men Type: BLOOD SPECIMEN Ordering Facility: [facility] Address: [address] [place] [address] Performed By: #### 5 7021-8 #### [facility] CLIA [id number] [address] [place] [address] 69454 Monocytes (Bld) [#/Vol] 0.49 10*3/uL Normal <0.87 [facility] Comment on above: Order Comment: Speci men Type: BLOOD SPECIMEN Ordering Facility: [facility] Address: [address] [place] [address] Performed By: #### 5 7021-8 #### [facility] CLIA [id number] [address] [place] [address] 15985 Monocytes/100 WBC (Bld) 6.3 % Normal [facility] Comment on above: Order Comment: Speci men Type: BLOOD SPECIMEN Ordering Facility: [facility] Address: [address] [place] [address] Performed By: #### 5 7021-8 #### [facility] CLIA [id number] [address] [place] [address] 66559 Neutrophils (Bld) [#/Vol] 4.70 10*3/uL Normal 1.45-7.50 [facility] Comment on above: Order Comment: Speci men Type: BLOOD SPECIMEN Ordering Facility: [facility] Address: [address] [place] [address] Performed By: #### 5 7021-8 #### [facility] CLIA [id number] [address] [place] [address] 40219 Neutrophils/100 WBC (Bld) 60.6 % Normal [facility] Comment on above: Order Comment: Speci men Type: BLOOD SPECIMEN Ordering Facility: [facility] Address: [address] [place] [address] Performed By: #### 5 7021-8 #### [facility] CLIA [id number] [address] [place] [address] 80275 Nucleated RBC (Bld) [#/Vol] 10*3/uL Normal <0.01 [facility] Comment on above: Order Comment: Speci men Type: BLOOD SPECIMEN Ordering Facility: [facility] Address: [address] [place] [address] Performed By: #### 5 7021-8 #### [facility] CLIA [id number] [address] [place] [address] 16344 Nucleated RBC/100 WBC (Bld) [Ratio] 0.0 /100 WBC Normal [facility] Comment on above: Order Comment: Speci men Type: BLOOD SPECIMEN Ordering Facility: [facility] Address: [address] [place] [address] Performed By: #### 5 7021-8 #### [facility] CLIA [id number] [address] [place] [address] 71131 Platelet mean volume (Bld) [Entitic vol] 9.6 fL Normal 9.0-12.7 [facility] Comment on above: Order Comment: Speci men Type: BLOOD SPECIMEN Ordering Facility: [facility] Address: [address] [place], [place] [address] Performed By: #### 5 7021-8 #### [facility] CLIA [id number] [address] [place] [address] 28493 Platelets (Bld) [#/Vol] 248 10*3/uL Normal 150-400 [facility] Comment on above: Order Comment: Speci men Type: BLOOD SPECIMEN Ordering Facility: [facility] Address: [address] [place] [address] Performed By: #### 5 7021-8 #### [facility] CLIA [id number] [address] [place] [address] 10719 RBC (Bld) [#/Vol] 5.41 10*6/uL High 3.90-5.20 [facility] Comment on above: Order Comment: Speci men Type: BLOOD SPECIMEN Ordering Facility: [facility] Address: [address] [place] [address] Performed By: #### 5 7021-8 #### [facility] CLIA [id number] [address] [place] [address] 73804 WBC (Bld) [#/Vol] 7.75 10*3/uL Normal 3.70-11.00 [facility] Comment on above: Order Comment: Speci men Type: BLOOD SPECIMEN Ordering Facility: [facility] Address: [address] [place] [address] Performed By: #### 5 7021-8 #### [facility] CLIA [id number] [address] [place] [address] 84776 T3 SerPl-mCncon 02-01-2023 T3 [Mass/Vol] 123 ng/dL Normal 79-165 [facility] Comment on above: Order Comment: Speci men Type: BLOOD SPECIMEN Ordering Facility: [facility] Address: [address] [place] [address] Performed By: #### 3 053-6, 3016-3, 3026-2 #### [facility] CLIA [id number] [address] [facility] [id number] [address] [place] T4 SerPl-mCncon 02-01-2023 T4 [Mass/Vol] 11.9 ug/dL High 5.5-10.2 [facility] [place] [facility] Comment on above: Order Comment: Chel iverson Type: BLOOD SPECIMEN Ordering Facility: [facility] Address: [address] [place] [address] Performed By: #### 3 053-6, 3016-3, 3026-2 #### [facility] CLIA [id number] [address] [place] THYROGLOBULIN BY MASS SPECTR OMETRYon 02-01-2023 THYROGLOBULIN, LC-MS/MS <0.5 Low 1.3-31.8 [facility] Comment on above: Order Comment: Chel iverson Type: BLOOD SPECIMEN Ordering Facility: [facility] Address: [address] [place] [address] Result Comment: Results obtained with different test [...] developed and its performance characteristics determined by [facility]. It has not been cleared or approved by the [place] Food and Drug Administration. This test was performed in a CLIA certified laboratory and is intended for clinical purposes. Performed By: [facility] [address] [place] [address] Site Operations Manager: Prem Willis MD, PhD CLIA Number: [id number] Performed By: #### [facility] #### [facility] CLIA [id number] [address] [place] [address] TSH SerPl-aCncon 02-01-2023 TSH Qn 0.960 m[IU]/L Normal 0.270-4.200 [facility] Comment on above: Order Comment: Chel iverson Type: BLOOD SPECIMEN Ordering Facility: [facility] Address: [address] [place] [address] Result Comment: If t he patient is , TSH reference range varies by gestational period: First Trimester (weeks 9-12): 0.180-2.990 mIU/L Second Trimester: 0.110-3.980 mIU/L Third Trimester: 0.480-4.710 mIU/L Suman Graf et al. A Practical Approach for the Verifications and Determination of Site- and Trimester-Specific Reference Intervals for Thyroid Function tests in . Thyroid, 2019:29:3:412-420. Rajesh Holman, et al. 2017 Guidelines of the [place] [employer] for the Diagnosis and Management of Thyroid Disease during and the . Thyroid, 2017:27:3:315-389. Performed By: #### 3 053-6, 3016-3, 3026-2 #### [facility] CLIA [id number] [address] [facility] [id number] [place] [address] [place] PREG QUANT HCGon 08-17-2022 HCG QUANT 1 mIU/mL Normal [facility] Comment on above: Performed By: #### P REGQNT #### [facility] [address] [place] [address] Dr. Prashant Kang HCG RANGE SEE BELOW Normal [facility] Comment on above: Result Comment: 5-50 0.2-1 WEEK 50-500 1-2 WEEKS 100-5,000 2-3 WEEKS 500-10,000 3-4 WEEKS 1,000-50,000 4-5 WEEKS 10,000-100,000 5-6 WEEKS 15,000-200,000 6-8 WEEKS 10,000-100,000 2-3 MONTHS Performed By: #### P REGQNT #### [facility] [address] [place] [address] Dr. Prashant Kang PREG QUANT HCGon 07-04-2022 HCG QUANT <1 Normal [facility] Comment on above: Performed By: #### P REGQNT #### [facility] [address] [address] [address] Prashant Kang HCG RANGE SEE BELOW Normal [facility] Comment on above: Result Comment: 5-50 0.2-1 WEEK 50-500 1-2 WEEKS 100-5,000 2-3 WEEKS 500-10,000 3-4 WEEKS 1,000-50,000 4-5 WEEKS 10,000-100,000 5-6 WEEKS 15,000-200,000 6-8 WEEKS 10,000-100,000 2-3 MONTHS Performed By: #### P REGQNT #### [facility] [address] [place] [address] Dr. Prashant Kang PREG QUANT HCGon 05-16-2022 HCG QUANT <1 Normal [facility] Comment on above: Performed By: #### P TT, PT #### [facility] [address] [place] [address] Dr. Prashant Kang HCG RANGE SEE BELOW Normal [facility] Comment on above: Result Comment: 5-50 0.2-1 WEEK 50-500 1-2 WEEKS 100-5,000 2-3 WEEKS 500-10,000 3-4 WEEKS 1,000-50,000 4-5 WEEKS 10,000-100,000 5-6 WEEKS 15,000-200,000 6-8 WEEKS 10,000-100,000 2-3 MONTHS Performed By: #### P TT, PT #### [facility] [address] [place] [address] Dr. Prashant Kang PREG QUANT HCGon 05-08-2022 HCG QUANT <1 Normal [facility] Comment on above: Performed By: #### P REGQNT #### [facility] [address] [place] [address] Dr. Prashant Kang HCG RANGE SEE BELOW Normal [facility] Comment on above: Result Comment: 5-50 0.2-1 WEEK 50-500 1-2 WEEKS 100-5,000 2-3 WEEKS 500-10,000 3-4 WEEKS 1,000-50,000 4-5 WEEKS 10,000-100,000 5-6 WEEKS 15,000-200,000 6-8 WEEKS 10,000-100,000 2-3 MONTHS Performed By: #### P REGQNT #### [facility] [address] [place] [address] Dr. Prashant Kang CALCIUMon 03-08-2022 Calcium [Mass/Vol] 8.6 mg/dL Normal 8.5-10.1 [facility] Comment on above: Performed By: #### C A #### [facility] [address] [place] [address] Dr. Prashant Kang CALCIUMon 03-07-2022 Calcium [Mass/Vol] 8.4 mg/dL Critically low 8.5-10.1 [facility] Comment on above: Performed By: #### C A #### [facility] [address] [place] [address] Dr. Prashant Kang PREG HCG QUALon 03-07-2022 , QUAL Negative Normal NEGATIVE [facility] Comment on above: Performed By: #### P REG #### [facility] [address] [place] [address] Dr. Prashant Kang Covid-19 PCR (CVDTB)on SARS-CoV-2 (COVID-19) RNA DENEEN+probe Ql (Unsp spec) Not detected Normal NOT DETECTED [facility] Comment on above: Result Comment: This test is not yet approved or cleared by the [place] FDA. When there are no FDA-approved or cleared tests available, and other criteria are met, FDA can make tests available under an emergency access mechanism called an Emergency Use Authorization (EUA). The EUA for this test is supported by the [employer] of Health and Human Service's (HHS's) [...] SARS-CoV-2. Performed By: #### C VDTBH #### [facility] [address] [place] [address] Dr. Prashant Kang CALCIUMon 02-24-2022 Calcium [Mass/Vol] 8.8 mg/dL Normal 8.5-10.1 [facility] Comment on above: Performed By: #### P TT, PT #### [facility] [address] [place] [address] Dr. Prashant Kang CBC AUTO DIFFon 02-24-2022 BASO # 0.0 103/ul Normal 0.0-0.1 [facility] Comment on above: Performed By: #### P TT, PT #### [facility] [address] [place] [address] Dr. Prashant Kang Basophils/100 WBC (Bld) 0.3 % Normal 0.2-2.0 [facility] Comment on above: Performed By: #### P TT, PT #### [facility] [address] [place] [address] Dr. Prashant Kang EO # 0.1 103/ul Normal 0.0-0.7 [facility] Comment on above: Performed By: #### P TT, PT #### [facility] [address] [place] [address] Dr. Prashant Kang Eosinophils/100 WBC (Bld) 1.5 % Normal 0.9-7.0 [facility] Comment on above: Performed By: #### P TT, PT #### [facility] [address] [place] [address] Dr. Prashant Kang Erythrocyte distribution width (RBC) [Ratio] 13.8 % Normal 11.0-15.0 [facility] Comment on above: Performed By: #### P TT, PT #### [facility] [address] [place] [address] Dr. Prashant Kang Hematocrit (Bld) [Volume fraction] 45.5 % Normal 36.0-48.0 [facility] Comment on above: Performed By: #### P TT, PT #### [facility] [address] [place] [address] Dr. Prashant Kang Hemoglobin (Bld) [Mass/Vol] 14.6 g/dL Normal 12.0-16.0 [facility] Comment on above: Performed By: #### P TT, PT #### [facility] [address] [place] [address] Dr. Prashant Kang IG # 0.02 10e3/ul Normal 0.00-0.03 [facility] Comment on above: Performed By: #### P TT, PT #### [facility] [address] [place] [address] Dr. Prashant Kang IG % 0.3 % Normal 0.0-0.5 [facility] Comment on above: Performed By: #### P TT, PT #### [facility] [address] [place] [address] Dr. Prashant Kang LYMPH # 1.6 103/ul Normal 1.2-3.8 [facility] Comment on above: Performed By: #### P TT, PT #### [facility] [address] [place] [address] Dr. Prashant Kang Lymphocytes/100 WBC (Bld) 23.5 % Normal 20.5-60.0 [facility] Comment on above: Performed By: #### P TT, PT #### [facility] [address] [place] [address] Dr. Prashant Kang MANUAL DIFF REQ NO Normal [facility] Comment on above: Performed By: #### P TT, PT #### [facility] [address] [place] [address] Dr. Prashant Kang MCH (RBC) [Entitic mass] 26.5 pg Critically low 26.7-34.0 [facility] Comment on above: Performed By: #### P TT, PT #### [facility] [address] [place] [address] Dr. Prashant Kang MCHC (RBC) [Mass/Vol] 32.1 g/dL Normal 29.9-35.2 [facility] Comment on above: Performed By: #### P TT, PT #### [facility] [address] [place] [address] Dr. Prashant Kang MCV (RBC) [Entitic vol] 82.7 fL Normal 81.0-99.0 [facility] Comment on above: Performed By: #### P TT, PT #### [facility] [address] [place] [address] Dr. Prashant Kang MONO # 0.5 103/ul Normal 0.3-0.8 [facility] Comment on above: Performed By: #### P TT, PT #### [facility] [address] [place] [address] Dr. Prashant Kang Monocytes/100 WBC (Bld) 7.5 % Normal 1.7-12.0 [facility] Comment on above: Performed By: #### P TT, PT #### [facility] [address] [place] [address] Dr. Prashant Kang NEUT # 4.6 103/ul Normal 1.4-6.5 [facility] Comment on above: Performed By: #### P TT, PT #### [facility] [address] [place] [address] Dr. Prashant Kang Neutrophils/100 WBC (Bld) 66.9 % Normal 43.0-75.0 [facility] Comment on above: Performed By: #### P TT, PT #### [facility] [address] [place] [address] Dr. Prashant Kang Platelet mean volume (Bld) [Entitic vol] 9.9 fL Normal 9.5-13.5 [facility] Comment on above: Performed By: #### P TT, PT #### [facility] [address] [place] [address] Dr. Prashant Kang PLT 239 103/ul Normal 150-450 [facility] Comment on above: Performed By: #### P TT, PT #### [facility] [address] [place] [address] Dr. Prashant Kang RBC 5.50 106/ul Critically high 4.20-5.40 [facility] Comment on above: Performed By: #### P TT, PT #### [facility] [address] [place] [address] Dr. Prashant Kang WBC 6.8 103/ul Normal 4.0-11.0 [facility] Comment on above: Performed By: #### P TT, PT #### [facility] [address] [place] [address] Dr. Prashant Kang MAGNESIUMon 02-24-2022 Magnesium [Mass/Vol] 2.0 mg/dL Normal 1.8-2.4 [facility] Comment on above: Performed By: #### P TT, PT #### [facility] [address] [place] [address] Dr. Prashant Kang PHOSPHORUSon 02-24-2022 Phosphate [Mass/Vol] 3.3 mg/dL Normal 2.6-4.7 [facility] Comment on above: Performed By: #### P TT, PT #### [facility] [address] [place] [address] Dr. Prashant Kang PROTIMEon 02-24-2022 INR Coag (PPP) [Relative time] 1.01 {INR} Normal [facility] Comment on above: Performed By: #### P TT, PT #### [facility] [address] [place] [address] Dr. Prashant Kang INR GUIDELINES SEE BELOW Normal [facility] Comment on above: Result Comment: SALIMA RED INR: 2.0 - 3.0 CONDITIONS NOT LISTED BELOW 2.5 - 3.5 FOR PROSTHETIC HEART VALVE REPLACEMENT 2.5 - 3.5 RECURRENT THROMBOSIS Performed By: #### P TT, PT #### [facility] [address] [place] [address] Dr. Prashant Kang PT Coag (PPP) [Time] 10.9 s Normal 9.0-11.6 [facility] Comment on above: Performed By: #### P TT, PT #### [facility] [address] [place] [address] Dr. Prashant Kang PTTon 02-24-2022 aPTT Coag (Bld) [Time] 28.9 s Normal 22.3-36.2 [facility] Comment on above: Performed By: #### P TT, PT #### [facility] [address] [place] [address] Dr. Prashant Kang TSHon 02-24-2022 TSH 1.163 uIU/mL Normal 0.358-3.740 [facility] Comment on above: Performed By: #### P TT, PT #### [facility] [address] [place], [place] [address] Dr. Prashant Kang US THYROID FN ASP BXon 02-09 US THYROID FN ASP BX Begin Addendum #1 COLLECTED DATE/TIME: 02/03/2022 11:36 EDT Final Diagnosis Report for [facility] [place] (A/B) THYROID ISTHMUS NODULE, FINE NEEDLE [...] 2. Pathology results are pending. Normal [facility] CT NECK ST W CONon CT NECK [...] SHAILESH EMERY Date: 2022-01-20 13:05 Normal [facility] US THYROIDon 01-20-2022 US THYROID EXAMINATION: [...] isthmus nodule. Consider fine-needle aspiration TI-RADS: The [employer] TI-RADS committee's white paper recommendations for thyroid lesions classified as TR4 (moderately suspicious) are listed below: > 1.0 cm. Follow-up ultrasound in 1, 2, 3, and 5 years. > 1.5 cm. FNA. J. Am More Radiol 2017;14:587-595. Electronically authenticated by: SHAILESH EMERY Date: 2022-01-20 21:46 Normal [facility] CBC AUTO DIFFon 01-08-2022 BASO # 0.0 103/ul Normal 0.0-0.1 [facility] Comment on above: Performed By: #### P TT, PT #### [facility] [address] [address] [address] Prashant Kang Basophils/100 WBC (Bld) 0.4 % Normal 0.2-2.0 [facility] Comment on above: Performed By: #### P TT, PT #### [facility] [address] [address] [address] Prashant Kang EO # 0.2 103/ul Normal 0.0-0.7 [facility] Comment on above: Performed By: #### P TT, PT #### [facility] [address] [place] [address] Dr. Prashant Kang Eosinophils/100 WBC (Bld) 3.4 % Normal 0.9-7.0 [facility] Comment on above: Performed By: #### P TT, PT #### [facility] [address] [place] [address] Dr. Prashant Kang Erythrocyte distribution width (RBC) [Ratio] 14.6 % Normal 11.0-15.0 [facility] Comment on above: Performed By: #### P TT, PT #### [facility] [address] [place] [address] Dr. Prashant Kang Hematocrit (Bld) [Volume fraction] 42.9 % Normal 36.0-48.0 [facility] Comment on above: Performed By: #### P TT, PT #### [facility] [address] [place] [address] Dr. Prashant Kang Hemoglobin (Bld) [Mass/Vol] 13.4 g/dL Normal 12.0-16.0 [facility] Comment on above: Performed By: #### P TT, PT #### [facility] [address] [place] [address] Dr. Prashant Kang IG # 0.02 10e3/ul Normal 0.00-0.03 [facility] Comment on above: Performed By: #### P TT, PT #### [facility] [address] [place] [address] Dr. Prashant Kang IG % 0.3 % Normal 0.0-0.5 [facility] Comment on above: Performed By: #### P TT, PT #### [facility] [address] [place] [address] Dr. Prashant Kang LYMPH # 2.0 103/ul Normal 1.2-3.8 [facility] Comment on above: Performed By: #### P TT, PT #### [facility] [address] [place] [address] Dr. Prashant Kang Lymphocytes/100 WBC (Bld) 29.7 % Normal 20.5-60.0 [facility] Comment on above: Performed By: #### P TT, PT #### [facility] [address] [place] [address] Dr. Prashant Kang MANUAL DIFF REQ NO Normal [facility] Comment on above: Performed By: #### P TT, PT #### [facility] [address] [place] [address] Dr. Prashant Kang MCH (RBC) [Entitic mass] 26.3 pg Critically low 26.7-34.0 [facility] Comment on above: Performed By: #### P TT, PT #### [facility] [address] [place] [address] Dr. Prashant Kang MCHC (RBC) [Mass/Vol] 31.2 g/dL Normal 29.9-35.2 [facility] Comment on above: Performed By: #### P TT, PT #### [facility] [address] [place] [address] Dr. Prashant Kang MCV (RBC) [Entitic vol] 84.1 fL Normal 81.0-99.0 [facility] Comment on above: Performed By: #### P TT, PT #### [facility] [address] [place] [address] Dr. Prashant Kang MONO # 0.6 103/ul Normal 0.3-0.8 [facility] Comment on above: Performed By: #### P TT, PT #### [facility] [address] [place] [address] Dr. Prashant Kang Monocytes/100 WBC (Bld) 8.7 % Normal 1.7-12.0 [facility] Comment on above: Performed By: #### P TT, PT #### [facility] [address] [place] [address] Dr. Prashant Kang NEUT # 3.9 103/ul Normal 1.4-6.5 [facility] Comment on above: Performed By: #### P TT, PT #### [facility] [address] [place] [address] Dr. Prashant Kang Neutrophils/100 WBC (Bld) 57.5 % Normal 43.0-75.0 [facility] Comment on above: Performed By: #### P TT, PT #### [facility] [address] [place] [address] Dr. Prashant Kang Platelet mean volume (Bld) [Entitic vol] 9.9 fL Normal 9.5-13.5 [facility] Comment on above: Performed By: #### P TT, PT #### [facility] [address] [place] [address] Dr. Prashant Kang PLT 241 103/ul Normal 150-450 [facility] Comment on above: Performed By: #### P TT, PT #### [facility] [address] [place] [address] Dr. Prashant Kang RBC 5.10 106/ul Normal 4.20-5.40 [facility] Comment on above: Performed By: #### P TT, PT #### [facility] [address] [place] [address] Dr. Prashant Kang WBC 6.8 103/ul Normal 4.0-11.0 [facility] Comment on above: Performed By: #### P TT, PT #### [facility] [address] [place] [address] Dr. Prashant Kang GROUP A STREP CULTUREon 12-29 S. pyogenes Ag Ql (Unsp spec) Culture Observations: NEGATIVE FOR GROUP A STREPTOCOCCUS. Normal [facility] Comment on above: Performed By: #### P TT, PT #### [facility] [address] [place] [address] Dr. Prashant Kang PROF 14(COMP METB)on 022 Albumin [Mass/Vol] 3.6 g/dL Normal 3.4-5.0 [facility] Comment on above: Performed By: #### C MP #### [facility] [address] [place] [address] Dr. Prashant Kang Albumin/Globulin [Mass ratio] 0.8 {ratio} Normal [facility] Comment on above: Performed By: #### C MP #### [facility] [address] [place] [address] Dr. Prashant Kang ALP [Catalytic activity/Vol] 74 U/L Normal 46-116 [facility] Comment on above: Performed By: #### C MP #### [facility] [address] [place] [address] Dr. Prashant Kang ALT [Catalytic activity/Vol] 40 U/L Normal 14-59 [facility] Comment on above: Performed By: #### C MP #### [facility] [address] [address] [address] Prashant Kang Anion gap [Moles/Vol] 14.0 mmol/L Normal [facility] Comment on above: Performed By: #### C MP #### [facility] [address] [address] [address] Prashant Kang AST [Catalytic activity/Vol] 31 U/L Normal 15-37 [facility] Comment on above: Performed By: #### C MP #### [facility] [address] [place] [address] Dr. Prashant Kang Bilirubin [Mass/Vol] 0.4 mg/dL Normal 0.2-1.0 [facility] Comment on above: Performed By: #### C MP #### [facility] [address] [address] [address] Prashant Kang Calcium [Mass/Vol] 8.8 mg/dL Normal 8.5-10.1 [facility] Comment on above: Performed By: #### C MP #### [facility] [address] [address] [address] Prashant Kang Chloride [Moles/Vol] 105 mmol/L Normal 98-107 [facility] Comment on above: Performed By: #### C MP #### [facility] [address] [address] [address] Prashant Kang CO2 [Moles/Vol] 26.6 mmol/L Normal 21.0-32.0 [facility] Comment on above: Performed By: #### C MP #### [facility] [address] [place] [address] Dr. Prashant Kang Creatinine [Mass/Vol] 0.80 mg/dL Normal 0.55-1.02 [facility] Comment on above: Performed By: #### C MP #### [facility] [address] [address] [address] Prashant Kang EGFR-AF PAKISTANI >60 Normal >=60 [facility] Comment on above: Performed By: #### C MP #### [facility] [address] [address] [address] Prashant Kang EGFR-NON AF PAKISTANI >60 Normal >=60 [facility] Comment on above: Performed By: #### C MP #### [facility] [address] [address] [address] Prashant Kang Globulin (S) [Mass/Vol] 4.3 g/dL Normal [facility] Comment on above: Performed By: #### C MP #### [facility] [address] [address] [address] Prashant Kang Glucose [Mass/Vol] 101 mg/dL Normal 74-106 [facility] Comment on above: Performed By: #### C MP #### [facility] [address] [address] [address] Prashant Kang Potassium [Moles/Vol] 4.6 mmol/L Normal 3.5-5.1 [facility] Comment on above: Performed By: #### C MP #### [facility] [address] [address] [address] Prashant Kang Protein [Mass/Vol] 7.9 g/dL Normal 6.4-8.2 [facility] Comment on above: Performed By: #### C MP #### [facility] [address] [address] [address] Prashant Kang Sodium [Moles/Vol] 141 mmol/L Normal 136-145 [facility] Comment on above: Performed By: #### C MP #### [facility] [address] [address] [address] Prashant Kang Urea nitrogen [Mass/Vol] 11.0 mg/dL Normal 7.0-18.0 [facility] Comment on above: Performed By: #### C MP #### [facility] [address] [address] [address] Prashant Kang Urea nitrogen/Creatinine [Mass ratio] 13.8 mg/mg Normal [facility] Comment on above: Performed By: #### C MP #### [facility] [id number] Prashant Kang STREPT SCREENon 01-08-2022 STREP SCREEN A Negative Normal NEGATIVE [facility] Comment on above: Performed By: #### P TT, PT #### [facility] [id number] Prashant Kang XR NECK SOFT TISSUEon [...] MIKE BARNETT Date: 2022-01-08 04:43 Normal [facility] Covid-19 PCR ([facility]on SARS-CoV-2 (COVID-19) RNA DENEEN+probe Ql (Unsp spec) Not detected Normal NOT DETECTED [facility] Comment on above: Result Comment: This test is not yet approved or cleared by the [place] FDA. When there are no FDA-approved or cleared tests available, and other criteria are met, FDA can make tests available under an emergency access mechanism called an Emergency Use Authorization (EUA). The EUA for this test is supported by the [employer] of Health and Human Service's (HHS's) [...] Performed By: #### P TT, PT #### [facility] [address] [place] [address] Dr. Prashant Kang Vital Signs Date Time Vital Sign Value Performing Clinician Faci lity 04-14-2024 13:52-0500 Body mass index (BMI) [Ratio] 39.69 kg/m2 Acosta Shania DO Work Phone: [facility] 04-14-2024 13:52-0500 Body weight 98.43 kg Acosta Shania DO Work Phone: [facility] 04-14-2024 13:52-0500 Diastolic blood pressure 72 mm[Hg] Acosta Shania DO Work Phone: [facility] 04-14-2024 13:52-0500 Systolic blood pressure 122 mm[Hg] Acosta Shania DO Work Phone: [facility] 03-31-2024 13:44-0500 Body mass index (BMI) [Ratio] 40.75 kg/m2 Acosta Shania DO Work Phone: [facility] 03-31-2024 13:44-0500 Body weight 101.06 kg Acosta Shania DO Work Phone: [facility] 03-31-2024 13:44-0500 Diastolic blood pressure 70 mm[Hg] Acosta Shania DO Work Phone: [facility] 03-31-2024 13:44-0500 Systolic blood pressure 120 mm[Hg] Acosta Shania DO Work Phone: [facility] 03-24-2024 13:16-0500 Body mass index (BMI) [Ratio] 40.02 kg/m2 Acosta Shania DO Work Phone: [facility] 03-24-2024 13:16-0500 Body weight 99.25 kg Acosta Shania DO Work Phone: [facility] 03-24-2024 13:16-0500 Diastolic blood pressure 70 mm[Hg] Acosta Shania DO Work Phone: [facility] 03-24-2024 13:16-0500 Systolic blood pressure 120 mm[Hg] Acosta Shania DO Work Phone: [facility] 03-10-2024 13:45-0500 Body mass index (BMI) [Ratio] 40.38 kg/m2 Acosta Shania DO Work Phone: [facility] 03-10-2024 13:45-0500 Body weight 100.15 kg Acosta Shania DO Work Phone: [facility] 03-10-2024 13:45-0500 Diastolic blood pressure 76 mm[Hg] Acosta Shania DO Work Phone: [facility] 03-10-2024 13:45-0500 Systolic blood pressure 114 mm[Hg] Acosta Shania DO Work Phone: [facility] 02-25-2024 14:08-0400 Body mass index (BMI) [Ratio] 39.87 kg/m2 Kim YAO Work Phone: [facility] 02-25-2024 14:08-0400 Body weight 98.88 kg Kim YAO Work Phone: [facility] 02-25-2024 14:08-0400 Diastolic blood pressure 70 mm[Hg] Kim Mckeon PA Work Phone: [facility] 02-25-2024 14:08-0400 Systolic blood pressure 114 mm[Hg] Kim Ml PA Work Phone: [facility] 02-11-2024 11:10-0400 Body mass index (BMI) [Ratio] 40.2 kg/m2 Acosta Shania DO Work Phone: [facility] 02-11-2024 11:10-0400 Body weight 99.7 kg Acosta Shania DO Work Phone: [facility] 02-11-2024 11:10-0400 Diastolic blood pressure 64 mm[Hg] Acosta Shania DO Work Phone: [facility] 02-11-2024 11:10-0400 Systolic blood pressure 112 mm[Hg] Acosta Shania DO Work Phone: [facility] 01-14-2024 13:36-0400 Body mass index (BMI) [Ratio] 39.1 kg/m2 Acosta Shania DO Work Phone: [facility] 01-14-2024 13:36-0400 Body weight 96.98 kg Acosta Shania DO Work Phone: [facility] 01-14-2024 13:36-0400 Diastolic blood pressure 60 mm[Hg] Acosta Shania DO Work Phone: [facility] 01-14-2024 13:36-0400 Systolic blood pressure 120 mm[Hg] Acosta Shania DO Work Phone: [facility] 12-17-2023 14:20-0400 Body mass index (BMI) [Ratio] 39.51 kg/m2 Acosta Shania DO Work Phone: [facility] 12-17-2023 14:20-0400 Body weight 97.98 kg Acosta Shania DO Work Phone: [facility] 12-17-2023 14:20-0400 Diastolic blood pressure 80 mm[Hg] Acosta Shania DO Work Phone: [facility] 12-17-2023 14:20-0400 Systolic blood pressure 124 mm[Hg] Acosta Shania DO Work Phone: [facility] 06-12-2023 13:54-0500 Body mass index (BMI) [Ratio] 40.6 kg/m2 Acosta Shania DO Work Phone: [facility] 06-12-2023 13:54-0500 Body weight 100.7 kg Acosta Shania DO Work Phone: [facility] 06-12-2023 13:54-0500 Diastolic blood pressure 74 mm[Hg] Acosta Shania DO Work Phone: [facility] 06-12-2023 13:54-0500 Systolic blood pressure 118 mm[Hg] Acosta Shania DO Work Phone: [facility] 05-04-2022 09:40-0500 Body temperature 97.2 [degF] JONNY Garcia MD Work Phone: [facility] 05-04-2022 09:40-0500 Body weight 88.81 kg JONNY Garcia MD Work Phone: [facility] 05-04-2022 09:40-0500 Diastolic blood pressure 73 mm[Hg] JONNY Garcia MD Work Phone: [facility] 05-04-2022 09:40-0500 Heart rate 67 /min JONNY Garcia MD Work Phone: [facility] 05-04-2022 09:40-0500 Respiratory rate 16 /min JONNY Garcia MD Work Phone: [facility] 05-04-2022 09:40-0500 SaO2% (BldA) [Mass fraction] 100 % JONNY Garcia MD Work Phone: [facility] 05-04-2022 09:40-0500 Systolic blood pressure 113 mm[Hg] JONNY Garcia MD Work Phone: [facility] Encounters Encounter Date Encounter Type Care Provider Facility Start: 04-14-2024 End: 04-14-2024 Bamboo flowsheet Acosta Shania DO Work Phone: [facility] Start: 04-14-2024 End: 04-14-2024 Bamboo flowsheet Acosta Shania DO Work Phone: [facility] Start: 04-14-2024 End: 04-14-2024 ambulatory [...] Start: 02-26-2024 End: 02-26-2024 Patient encounter procedure El Rito [facility] Comment on above: 24 weeks gestation o f ; Food insecurity Start: 02-25-2024 End: 02-25-2024 Bamboo flowsheet Kim YAO Work Phone: [facility] Start: 02-25-2024 End: 02-25-2024 Bamboo flowsheet Kim YAO Work Phone: [facility] Start: 02-25-2024 End: 02-25-2024 Office [...] DO Work Phone: [facility] Comment on above: Third trimester preg yogesh; Thyroid disease (CMS/HCC); 29 weeks gestation of ; History of placental abruption; Non compliance w medication regimen Start: 02-11-2024 End: 02-11-2024 ambulatory ACOSTA SHANIA Not Available Start: 02-08-2024 End: 02-08-2024 Clinisync Result Encounter Acosta Shania DO Work Phone: [facility] External Department Unsolicited Start: 02-08-2024 End: 02-08-2024 Clinisync Result Encounter Acosta Shania DO Work Phone: [facility] External Department Unsolicited Start: 01-23-2024 End: 01-24-2024 Telephone encounter Asrlan Garcia MD Work Phone: Radiation Oncology Comment on above: Patient Question Start: 01-14-2024 End: 01-14-2024 ambulatory ACOSTA SHANIA Not Available Start: 01-14-2024 End: 01-14-2024 Office outpatient visit 15 minutes Acosta Shania DO Work Phone: [facility] Comment on above: 25 weeks gestation o f ; Diabetes mellitus screening; First trimester Start: 01-11-2024 End: 01-11-2024 [facility] Start: 01-02-2024 End: 01-02-2024 Clinisync Result Encounter Acosta Shania DO Work Phone: [facility] External Department Unsolicited Start: 01-02-2024 End: 01-02-2024 Clinisync Result Encounter Acosta Shania DO Work Phone: [facility] External Department Unsolicited Start: 12-17-2023 End: 12-17-2023 Office outpatient visit [...] encounter [facility]slan [facility] MD [facility] Comment on above: Appointment Confirma tion Start: 02-08-2023 End: 02-08-2023 ambulatory SARA MEDELLIN Facility:[facility] Start: 02-01-2023 End: 02-01-2023 ambulatory SARA MEDELLIN Facility:[facility] Start: 11-09-2022 Telephone encounter Arslan Garcia MD Work Phone: [facility] Comment on above: Appointment Confirma [...] Start: 05-08-2022 End: 05-30-[address] ACOSTA SHANIA . Facility:[facility] Start: 05-04-2022 End: 05-04-2022 Patient encounter procedure Arslan Felipe Garcia MD Work Phone: Radiation Oncology Comment on above: Thyroid cancer (HCC) (Primary Dx) Start: 04-25-2022 Telephone encounter G Felipe Garcia MD [facility] Comment on above: Missed Appointment Start: 04-20-2022 Patient encounter procedure [facility] Provider [facility] Department Start: 04-11-2022 End: 04-11-2022 Patient encounter procedure Lab/[place] Zhao Work Phone: Radiation Oncology Comment on above: Thyroid cancer (HCC) (Primary Dx) Start: 03-09-2022 Encounter for preprocedural laboratory examination DR CHARLIE EASTMAN [facility] Start: 03-07-2022 End: 03-08-[address] CHARLIE EASTMAN Facility:[facility] Start: 03-04-2022 End: 03-05-[address] CHARLIE EASTMAN Facility:[facility] Start: 03-04-2022 End: 03-05-2022 Encounter for preprocedural laboratory examination DR CHARLIE EASTMAN Facility:[facility] Start: 02-24-2022 End: 02-25-[address] CHARLIE EASTMAN Facility:[facility] Start: 02-06-2022 End: 02-06-2022 ambulatory CLARI Rodriguez Facility:[facility] Start: 02-03-2022 End: 02-03-[address] [...] et rgnt non-auto w/o micrscp Acosta Shania Work Phone: Start: 03-24-2024 Urnls dip stick/tabl [...] micrscp Acosta Shania DO Work Phone: Start: 01-02-2024 ALL CBC WITH AUTO DIFF Acosta Shania DO Work Phone: Start: 12-17-2023 Urnls dip stick/tabl et rgnt non-auto w/o micrscp Acosta Shania DO Work Phone: Start: 11-13-2023 Cytp cerv/vag auto t hin layer prep mnl screen Acosta Shania DO Work Phone: Plan of Treatment Date Care Activity Detail Author Start: 01-10-2025 Adult BMI Screening Adult BMI Screen ing [facility] Start: 01-10-2025 Tobacco Screening Tobacco Screening [facility] Start: 05-12-2024 End: 05-12-2024 ambulatory 05/12/2024 1:40 PM EST Visit [facility] [address] [place] [address] Acosta Jauregui, DO [address] [place] [address] [facility] Start: 04-14-2024 End: 04-14-2024 Patient encounter procedure 04/14/2024 1:20 PM EST Routine [facility] [address] [place] [id number] Acosta Jauregui, DO [address] [facility] [address] [place] [address] [facility] Start: 03-31-2024 End: 03-31-2025 [...] Routine [facility] [address] [place] [id number] Acosta Jauregui, DO [address] [facility] [address] [place] [address] [facility] Start: 03-10-2024 End: 03-10-2024 Patient encounter procedure 03/10/2024 1:00 PM EST Routine [facility] [address] [place] [id number] Acosta Jauregui, DO [address] [place] [address] [facility] Start: 02-25-2024 End: 02-24-2025 [...] Expected: 02/11/2024 (Approximate), Expires: 02/10/2025 [facility] Comment on above: Expected: 02/11/2024 (Approximate), Expires: 02/10/2025 Start: 02-11-2024 End: 02-11-2024 Patient encounter procedure [facility] Comment on above: Arrived Start: 01-14-2024 End: 01-13-2025 CBC panel - Blood by Automated count CBC Lab Routine Diabetes mellitus screening Expected: 01/14/2024 (Approximate), Expires: 01/13/2025 [facility] Work Phone: Comment on above: Expected: 01/14/2024 (Approximate), Expires: 01/13/2025 Start: 01-14-2024 End: 01-14-2024 Patient encounter procedure 01/14/2024 1:20 PM EDT Routine [facility] [address] [facility] [place] [place] [address] Acosta Jauregui DO [address] [place] [address] [facility] Start: 12-30-2023 Covid-19 Vaccine ( season) Covid-19 Vaccine () [facility] Start: 12-30-2023 Influenza vaccination C [facility] Start: 08-15-2023 End: 11-14-2023 Thyroglobulin and Thyrogobulin Ab panel - Serum or Plasma THYROGLOBULIN, SERUM WITH REFLEX TO IA OR LC-MS/MS Lab Routine Thyroid cancer (HCC) Expected: 08/15/2023, Expires: 11/14/2023 [facility] Work Phone: Comment on above: Expected: 08/15/2023 , Expires: 11/14/2023 Start: 08-15-2023 End: 11-14-2023 Thyrotropin [Units/volume] in Serum or Plasma THYROID STIMULATING HORMONE Lab Routine Thyroid cancer (HCC) Expected: 08/15/2023, Expires: 11/14/2023 [facility] Work Phone: Comment on above: Expected: 08/15/2023 , Expires: 11/14/2023 Start: 08-15-2023 End: 11-14-2023 Thyroxine (T4) [Mass/volume] in Serum or Plasma T4/THYROXINE Lab Routine Thyroid cancer (HCC) Expected: 08/15/2023, Expires: 11/14/2023 [facility] Work Phone: Comment on above: Expected: 08/15/2023 , Expires: 11/14/2023 Start: 06-26-2023 End: 06-26-2023 Professional / ancillary services management 06/26/2023 1:00 PM EST Ancillary Procedure [facility] [address] [place] [address] [place] [address] [facility] Start: 06-12-2023 End: 06-12-2024 US for US PELVIS-TRANSVAG IF INDICATED Imaging Routine Amenorrhea Expected: 06/12/2023 (Approximate), Expires: 06/12/2024 [facility] Comment on above: Expected: 06/12/2023 (Approximate), Expires: 06/12/2024 Start: 04-30-2023 Behavioral Health Screening Behavioral Health Screening [facility] Start: 04-30-2023 Depression Assessment Depression Ass essment [facility] Start: 12-29-2022 Covid-19 Vaccine ( season) Covid-19 Vaccine ( season) [facility] Start: 12-29-2022 Influenza vaccination C [facility] Start: 07-02-2022 End: 09-01-2022 THYROGLOBULIN BY MASS SPECTROMETRY THYROGLOBULIN BY MASS SPECTROMETRY Lab Routine Thyroid cancer (HCC) Expected: 07/02/2022, Expires: 09/01/2022 [facility] Work Phone: Comment on above: Expected: 07/02/2022 , Expires: 09/01/2022 Start: 07-02-2022 End: 09-01-2022 Thyrotropin [Units/volume] in Serum or Plasma TSH BLD Lab Routine Thyroid cancer ([facility]) Expected: 07/02/2022, Expires: 09/01/2022 [facility] Work Phone: Comment on above: Expected: 07/02/2022 , Expires: 09/01/2022 Start: 07-02-2022 End: 09-01-2022 Thyroxine (T4) [Mass/volume] in Serum or Plasma T4/THYROXINE BLOOD Lab Routine Thyroid cancer (HCC) Expected: 07/02/2022, Expires: 09/01/2022 [facility] Work Phone: Comment on above: Expected: 07/02/2022 , Expires: 09/01/2022 Start: 04-30-2022 DEPRESSION ASSESSMENT DEPRESSION ASS [facility] Start: 2022 HPV TESTING HPV TESTING [facility] Start: 2022 Screening for malign ant neoplasm of cervix HPV Testing [facility] Start: 12-29-2021 Influenza vaccination INFLUENZA (#1) [facility] Start: 04-30-2021 DEPRESSION ASSESSMENT DEPRESSION ASS [facility] Start: 2013 PAP TESTING PAP TESTING [facility] Start: 2013 Screening for malign ant neoplasm of cervix [facility] Start: 2011 DTaP,Tdap and Td Vaccines (1 - Tdap) DTaP,Tdap and Td Vaccines (1 - Tdap) [facility] Start: 2011 Hepatitis B Vaccine (1 of 3 - 19+ 3-dose series) Hepatitis B Vaccine (1 of 3 - 19+ 3-dose series) [facility] Start: 2011 Urine microalbumin profile [facility] Start: 2010 Adult BMI Follow Up Plan Adult BMI Follow Up Plan [facility] Start: 2010 Anxiety Screening Anxiety Screening [facility] Start: 2010 Depression Screening Depression Scre lili [facility] Start: 2010 HEPATITIS C SCREENING HEPATITIS C SC [facility] Start: 2010 Hepatitis C screening Hepatitis C [facility] Start: 2010 HIV SCREENING HIV SCREENING [facility] Start: 2010 HIV screening HIV Screening [facility] Start: 2004 Depression Screening Depression Scre lili [facility] Start: 1998 PNEUMOCOCCAL (1 - PCV) PNEUMOCOCCAL (1 - PCV) [facility] Start: 1998 Pneumococcal vaccination [facility] Start: 1992 COVID-19 VACCINE (#1) COVID-19 VACCI NE (#1) [facility] Start: 1992 HEPATITIS B (1 of 3 - 3-dose series) HEPATITIS B (1 of 3 - 3-dose series) [facility] Start: 1992 Hepatitis B Vaccine (1 of 3 - 3-dose series) Hepatitis B Vaccine (1 of 3 - 3-dose series) [facility] Start: 1992 Tobacco Counseling Tobacco Counselin g [facility] CBC W Auto Different ial panel - Blood CBC and differential Lab Routine Amenorrhea Ordered: 06/12/2023 [facility] Comment on above: Ordered: 06/12/2023 hCG, quantitative, hCG, quantitative, Lab Routine Amenorrhea Ordered: 06/12/2023 [facility] Comment on above: Ordered: 06/12/2023 Hemoglobin A1c measurement Hemoglobin A1c Lab Routine Amenorrhea Ordered: 06/12/2023 [facility] Comment on above: Ordered: 06/12/2023 Hemoglobin A1c/Hemoglobin.total in Blood Hemoglobin A1c Lab Routine Diabetes mellitus screening Ordered: 01/14/2024 [facility] Comment on above: Ordered: 01/14/2024 Hemoglobin A1c/Hemoglobin.total in Blood Hemoglobin A1c Lab Routine Diabetes mellitus screening Ordered: 12/17/2023 [facility] Work Phone: Comment on above: Ordered: 12/17/2023 Prolactin Prolactin Lab Ro utine Amenorrhea Ordered: 06/12/2023 [facility] Comment on above: Ordered: 06/12/2023 Thyrotropin [Units/volume] in Serum or Plasma TSH Lab Routine Amenorrhea Ordered: 06/12/2023 [facility] Work Phone: Comment on above: Ordered: 06/12/2023 [facility] Payers Date Payer Category Payer Medicaid [place] [employer] [id number] 2020 Medicaid [id number] 2020 Medicaid (Managed Care) [employer] [id number] 1992 Unknown [id number] 2.16.840.1.688534.3.579.2. 593 1992 Unknown [id number] 2.16.840.1.449965.3.579.2. 593 1992 Unknown [id number] 2.16.840.1.108934.3.579.2. 593 1992 Unknown [id number] 2.16.840.1.739244.3.579.2. 593 1992 Unknown [id number] 2.16.840.1.547333.3.579.2. 593 1992 Unknown [id number] 2.16.840.1.039659.3.579.2. 593 1992 Unknown [id number] 2.16.840.1.549745.3.579.2. 593 1992 Unknown [id number] 2.16.840.1.566361.3.579.2. 593 1992 Unknown [id number] 2.16.840.1.933551.3.579.2. 593 1992 Unknown [id number] 2.16.840.1.386086.3.579.2. 593 1992 Unknown [id number] 2.16.840.1.717194.3.579.2. 593 1992 Unknown [id number] 2.16.840.1.799834.3.579.2. 593 1992 Unknown [id number] 2.16.840.1.938951.3.579.2. 593 1992 Unknown [id number] 2.16.840.1.600469.3.579.2. 593 1992 Unknown [id number] 2.16.840.1.063528.3.579.2. 593 1992 Unknown [id number] 2.16.840.1.566889.3.579.2. 1286 1992 Unknown [id number] 2.16.840.1.246330.3.579.2. 1286 1992 Unknown [id number] 2.16.840.1.249487.3.579.2. 9 1992 Unknown [id number] 2.16.840.1.733343.3.579.2. 9 1992 Unknown [id number] 2.16.840.1.682443.3.579.2. 9 1992 Unknown [id number] 2.16.840.1.000854.3.579.2. 1258 1992 Unknown [id number] 2.16.840.1.015497.3.579.2. 1258 1992 Unknown [id number] 2.16.840.1.612095.3.579.2. 1258 1992 Unknown [id number] 2.16.840.1.345604.3.579.2. 1258 1992 Unknown [id number] 2.16.840.1.946946.3.579.2. 1258 1992 Unknown [id number] 2.16.840.1.069874.3.579.2. 1258 1992 Unknown [id number] 2.16.840.1.926421.3.579.2. 1258 1992 Unknown [id number] 2.16.840.1.493366.3.579.2. 9 1992 Unknown [id number] 2.16.840.1.383398.3.579.2. 9 1959 Unknown [id number] Social History Date Type Detail Facility Start: 04-11-2022 End: 09-23-2022 Tobacco smoking status NHIS Smokes tobacco daily [facility] History of tobacco use Cigarette Smoker C [facility] Start: 04-11-2022 End: 09-14-2023 Cigarettes smoked current (pack per day) - Reported 1 [facility] Start: 04-11-2022 End: 09-23-2022 Tobacco use and exposure Smokeless tobacco non-user [facility] Start: 04-11-2022 End: 12-17-2023 Alcohol intake Current drinker of alcohol (finding) [facility] Start: 04-11-2022 Alcohol Comment socially [facility] Start: 1990 Sex Assigned At Not on file [facility] Start: 05-04-2022 End: 09-14-2023 Tobacco use panel [facility] Adult Depression Screening Assessment 0 [facility] Start: 10-03-2022 Alcohol Comment caffeine intak e: 1-2 cups per day [facility] Start: 1990 Sex Assigned At Female N [facility] Start: 10-04-2022 Gender identity Identifies as female gender (finding) [facility] Start: 08-06-2023 [facility] Start: 01-11-2024 Alcoholic beverage intake Ex-drinker (finding) [facility] Start: 08-26-2018 Sex Female (finding) [facility] Clinical Notes 03-07-2022 to 04-14-2024 Kerline Clement, [facility] - 04/14/2024 1:20 PM Orly Clement, [facility] - 03/31/2024 1:30 PM ESTSusan Spitler, [facility] 03/24/2024 1:00 PM ESTSusan Spitler, [facility] - 03/10/2024 1:00 PM EST Note [...] (CMS/HCC) Thyroid mass (CMS/HCC) 09/23/2022 Thyroid nodule ([facility]/HCC) HISTORY PAST MEDICAL HISTORY SOCIAL HISTORY Past [...] of Onset Asthma Mother Izzy Fibromyalgia Mother Zizy Arthritis Mother Izzy Migraines Mother Izzy Diabetes Mother Izzy No Known Problems Daughter No Known Problems Son Diabetes Maternal Grandmother Lisa Ovarian cancer Maternal Grandmother Lisa Heart failure Maternal Grandfather [facility] SURGICAL HISTORY Past Surgical History: Procedure [...] nursing note reviewed. Exam conducted with a watch technician present. Vitals: Estimated body mass index is [...] Acosta Jauregui DO documented in this encounter [facility] 03-31-2024 History of Present illness Narrative Reason [...] nursing note reviewed. Exam conducted with a watch technician present. Vitals: Estimated body mass index is [...] Acosta Jauregui DO documented in this encounter [facility] 03-24-2024 History of Present illness Narrative [...] Problems Diagnosis Date Noted Papillary thyroid carcinoma ([facility]) 09/23/2022 Thyroid disease ([facility]) 09/23/2022 Bilateral tinnitus 10/04/2022 Asymmetric [...] nursing note reviewed. Exam conducted with a watch technician present. 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 29 weeks gestation of 02/11/2024 Non compliance w medication regimen 02/11/2024 History of placental abruption 02/11/2024 Resolved Ambulatory Problems Diagnosis Date Noted Acid reflux 09/23/2022 Amenorrhea 09/23/2022 Lesion of palate 09/23/2022 depression ([facility]/HCC) 09/23/2022 Vaginal delivery 09/23/2022 Past Medical History: Diagnosis Date Chronic maxillary sinusitis Diarrhea Ear problems Family planning Fatigue Fibroadenoma of breast, right Foreign body sensation in throat History of miscarriage LPRD (laryngopharyngeal reflux disease) Obesity Papilloma of palate PCOS (polycystic ovarian syndrome) Thyroid cancer (CMS/HCC) Thyroid mass (CMS/HCC) 09/23/2022 Thyroid nodule ([facility]) HISTORY PAST MEDICAL HISTORY SOCIAL [...] nursing note reviewed. Exam conducted with a watch technician present. Vitals: Estimated body mass index is [...] 2 weeks. Patient will continue NST/BPP at [facility] as well. Documented by Sylvia Rader LPN on behalf of: Acosta Jauregui DO documented in this encounter [facility] 02-26-2024 History of Present illness Narrative [facility] Patient visited the [facility] and received food documented in this encounter [facility] 02-25-2024 History of Present illness Narrative [...] of: MAXIMILIAN Lombardo documented in this encounter [facility] 02-11-2024 History of Present illness Narrative [...] nursing note reviewed. Exam conducted with a watch technician present. Vitals: Estimated body mass index is [...] Acosta Jauregui DO documented in this encounter [facility] 01-24-2024 Telephone encounter Note I notified Amanda of Dr. Garcia's response. She will call after she delivers in March 2024 to scheduled follow up. Irais Turpin RN [facility] 01-24-2024 Miscellaneous Notes I notified Amanda of Dr. Garcia's response. She will call after she delivers in March 2024 to scheduled follow up. Irais Turpin RN Amanda called stating she is currently and is being followed very closely by [employer] in [place] and her local [employer] [employer] [facility]. She states her high risk is d/t [...] Irais Turpin RN documented in this encounter [facility] 01-23-2024 Telephone encounter Note Amanda called stating she is currently and is being followed very closely by [employer] in [place] and her local [employer]. She states her high risk is d/t [...] possible lab work? Thanks Irais Turpin RN [facility] 01-14-2024 History of Present illness Narrative Reason [...] nursing note reviewed. Exam conducted with a watch technician present. Vitals: Estimated body mass index is [...] Estimated Date of Delivery: 04/28/24. Discussed recent M appointment, weight loss and plan of care [...] Acosta Jauregui DO documented in this encounter [facility] 12-17-2023 History of Present illness Narrative Reason [...] nursing note reviewed. Exam conducted with a watch technician present. Vitals: Estimated body mass index is [...] after delivery. Patient will be referred to [facility]. Patient had ultrasound done today. Patient to return to clinic in 4 weeks for routine OB appointment. Patient will have Growth scans starting at 28 weeks and NST/BPP starting at 32 weeks gestation. Documented by Sylvia Rader LPN on behalf of: Acosta Jauregui DO documented in this encounter [facility] 11-13-[address] Christine office received ref and they will be calling patient to schedule appointment. Records faxed to Dr. Arteaga. Lawanda boswell [facility] box Images from the original note were not included. Spoke to pt. She would like to see endocrinology in [place]. Pt's OB did adjust synthroid recently and [...] follow-up with endocrinology. documented in this encounter [facility] 11-13-[address] Christine office received ref and they will be calling patient to schedule appointment. [facility] 11-12-2023 Telephone encounter Note Records faxed to Dr. Arteaga. [facility] 11-12-2023 Telephone encounter Note Lawanda please send records to [employer] in your box [facility] 11-12-2023 Telephone encounter Note Images from the original note were not included. Spoke to pt. She would like to see endocrinology in [place]. Pt's OB did adjust synthroid recently and has been monitoring labs. TREASURE- please sign pended order. PSS- please arrange visit when order is signed. KAREN Peters Tiffany Weyer, Angela, RN Previous Messages ----- Message ----- From: Arslan Garcia MD Sent: 11/02/2023 12:08 PM EDT To: Obi Dunlap; Carlos Nunez [facility] Given what sounds like patient is in first trimester and ongoing concerns of breast-feeding recommend she follow-up with endocrinology. [facility] 10-24-2023 Note HNO ID: [id number] Author: Arslan GARCIA MD Service: ? Author Type: Physician Type: Progress Notes Filed: 11/02/2023 12:08 Note Text: Unable to reach patient. [facility] 10-24-2023 History of Present illness Narrative Unable to reach patient. documented in this encounter [facility] 08-14-2023 Miscellaneous Notes TREASURE- please sign pended [...] Danna Pitts RN documented in this encounter [facility] 07-19-2023 Miscellaneous Notes Pt called to request labs sent to [facility]. Faxed to central scheduling. Enda Sal RN documented in this encounter [facility] 06-12-2023 History of Present illness Narrative Reason [...] Maternal Grandmother Lisa Heart failure Maternal Grandfather Mialn No Known Problems Daughter No Known Problems [...] Acosta Jauregui DO documented in this encounter [facility] 02-14-2023 Miscellaneous Notes Images from the original note were not included. Patient is scheduled for appointments Arslan Garcia MD [facility] Nurse [place]; Obi Genao 4 months with labs. [facility] documented in this encounter [facility] 02-08-2023 Note HNO ID: [id number] Author: Arslan Garcia MD Service: ? Author [...] 6 minutes Arslan Garcia MD [facility] 11-09-2022 Miscellaneous Notes Images from the original note were not included. Patient is called and scheduled. Arslan Garcia MD [facility] Nurse [place]; Obi Genao 8 weeks with labs, orders placed, thank you documented in this encounter [facility] 07-17-2022 Miscellaneous Notes Appointment has been changed to phone appt. Tj Funez Pt called in requesting to be switched to a phone visit tomorrow. Her kids are on spring break and a couple of them are sick. Labs have been done and resulted. PSS- please change to phone visit for tomorrow. Danna Pitts, KAREN documented in this encounter [facility] 05-04-2022 History of Present illness Narrative Radiation Oncology - FollowupNote PATIENT NAME: Amanda Cortez PATIENT : 1990 DIAGNOSIS: Thyroid cancer, classic papillary thyroid carcinoma, status post total thyroidectomy and right neck exploration on 03/07/2022, stage I [id number]. HPI: Patient returns after further work-up and [...] and right neck exploration on 03/07/2022, stage [id number]. Patient does have significant thyroglobulin antibody however [...] for this encounter. documented in this encounter [facility] 04-25-2022 Miscellaneous Notes Patient had been rescheduled. Tj Funez Images from the original note were not included. Called patient to MANJU bolanos. MD [facility] [place]; Tj Funez Unable to reach please reschedule documented in this encounter [facility] 04-11-2022 Nurse Note Amanda Cortez presents in office today for: Lab Draw during Office Visit . Ordering Provider: Felipe Garcia M.D. Test (s) ordered: TG Method for obtaining blood: Phlebotomy was performed, accessing right antecubital vein. Needle removed intact. Dressing secured. Patient denies discomfort, dizziness, light-headedness or weakness and left the department without assist. Danna Pitts RN documented in this encounter [facility] 03-07-2022 Note OPERATIVE NOTE OPERATION DATE: 03/07/2022 [...] the recovery room in good condition. [facility] Evaluation note Diagnosis Thyroid cancer (HCC)- Primary Malignant neoplasm of thyroid gland [facility] Thyroid cancer (HCC)- Primary Malignant neoplasm of thyroid gland [facility] Diagnosis Missed menses Amenorrhea Absence of menstruation documented in this encounter [facility]* Diagnosis Thyroid cancer (HCC)- Primary Malignant neoplasm of thyroid gland [facility] Diagnosis Thyroid cancer (HCC)- Primary Malignant neoplasm of thyroid gland [facility] Diagnosis Thyroid cancer (HCC)- Primary Malignant neoplasm of thyroid gland [facility] Diagnosis Third trimester state, incidental Thyroid disease (CMS/HCC) Unspecified disorder of thyroid 29 weeks gestation of History of placental abruption Non compliance w medication regimen documented in this encounter [facility]* Diagnosis Third trimester state, incidental 31 weeks gestation of Thyroid disease (CMS/HCC) Unspecified disorder of thyroid documented in this encounter [facility]* Diagnosis 24 weeks gestation of Food insecurity documented [facility]* Diagnosis Third trimester state, incidental [...] encounter [facility]Not on filedocumented [facility] Purpose Family History No Family [...] cancer (HCC) Procedures CONSULT TO ENDOCRINOLOGY OFFICE/OUTPATIENT [facility] 60 MINUTES Arslan Garcia MD [address] [place] [address] [place] [address] Referral ID Status Reason Start Date Expiration Date Visits Requested Visits Authorized [id number] Authorized PCP Requested Referral 11/12/2023 11/11/2024 1 1 Additional Source Comments Source Comments (unrecognize d section and content) In the event this informatio n is protected by the Federal Confidentiality of Alcohol and Drug Abuse Patient Records regulations: The Federal rules restrict any use of the information to criminally investigate or prosecute any alcohol or drug abuse patient.[facility] the event this information is protected by the Federal Confidentiality of Alcohol and Drug Abuse Patient Records regulations: The Federal rules restrict any use of the information to criminally investigate or prosecute any alcohol or drug abuse patient.[facility] the event this information is protected by the Federal Confidentiality of Alcohol and Drug Abuse Patient Records regulations: The Federal rules restrict any use of the information to criminally investigate or prosecute any alcohol or drug abuse patient.[facility] the event this information is protected by the Federal Confidentiality of Alcohol and Drug Abuse Patient Records regulations: The Federal rules restrict any use of the information to criminally investigate or prosecute any alcohol or drug abuse patient.[facility] the event this information is protected by the Federal Confidentiality of Alcohol and Drug Abuse Patient Records regulations: The Federal rules restrict any use of the information to criminally investigate or prosecute any alcohol or drug abuse patient.[facility] the event this information is protected by the Federal Confidentiality of Alcohol and Drug Abuse Patient Records regulations: The Federal rules restrict any use of the information to criminally investigate or prosecute any alcohol or drug abuse patient.[facility] the event this information is protected by the Federal Confidentiality of Alcohol and Drug Abuse Patient Records regulations: The Federal rules restrict any use of the information to criminally investigate or prosecute any alcohol or drug abuse patient.[facility] the event this information is protected by the Federal Confidentiality of Alcohol and Drug Abuse Patient Records regulations: The Federal rules restrict any use of the information to criminally investigate or prosecute any alcohol or drug abuse patient.[facility] the event this information is protected by the Federal Confidentiality of Alcohol and Drug Abuse Patient Records regulations: The Federal rules restrict any use of the information to criminally investigate or prosecute any alcohol or drug abuse patient.[facility] the event this information is protected by the Federal Confidentiality of Alcohol and Drug Abuse Patient Records regulations: The Federal rules restrict any use of the information to criminally investigate or prosecute any alcohol or drug abuse patient.[facility] the event this information is protected by the Federal Confidentiality of Alcohol and Drug Abuse Patient Records regulations: The Federal rules restrict any use of the information to criminally investigate or prosecute any alcohol or drug abuse patient.[facility] System[facility] the event this information is protected by the Federal Confidentiality of Alcohol and Drug Abuse Patient Records regulations: The Federal rules restrict any use of the information to criminally investigate or prosecute any alcohol or drug abuse patient.[facility] Reason for Visit (unrecogniz ed section and [...] Care Teams (unrecognized sec tion and content) 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 Specialty Start Date End Date Sara Medellin MD [address] [place] [address] PCP - General Family Medicine 04/11/22 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 Specialty Start Date End Date Sara Medellin MD [address] [place] [id number] PCP - General Family Medicine 04/11/22 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 Specialty Start Date End Date Sara Medellin MD [address] [place] [id number] PCP - General Family Medicine 04/11/22 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 Specialty Start Date End Date Sara Medellin MD PCP - General Family Medicine 04/11/22 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 Specialty Start Date End Date Sara Medellin MD PCP - General Family Medicine 04/11/22 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 Specialty Start Date End Date Sara Medellin MD [address] [place] [address] PCP - General Family Medicine 10/03/22 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 Specialty Start Date End Date Sara Medellin MD PCP - General Family Medicine 04/11/22 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 Specialty Start Date End Date Sara Medellin MD PCP - General Family Medicine 04/11/22 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 Specialty Start Date End Date Sara Medellin MD PCP - General Family Medicine 04/11/22 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 Specialty Start Date End Date Sara Medellin MD [address] [place] [address] PCP - General Family Medicine 10/03/22 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 Specialty Start Date End Date Sara Medellin MD [address] [place] [facility] [place] [address] PCP - General Family Medicine 10/03/22 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 Specialty Start Date End Date Sara Medellin MD [address] [place] [facility] [place] [address] PCP - General Family Medicine 10/03/22 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 Specialty Start Date End Date Sara Medellin MD [address] [place] [facility] [place] [address] PCP - General 01/10/24 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 Specialty Start Date End Date Sara Medellin MD [address] [place] [facility] [place] [address] PCP - General Family Medicine 10/03/22 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 Specialty Start Date End Date Sara Medellin MD [address] [place] [facility] [place] [address] PCP - General Family Medicine 10/03/22 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 Specialty Start Date End Date Sara Medellin MD [address] [facility] [place] [address] PCP - General Family Medicine 10/03/22 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 Specialty Start Date End Date Sara Medellin MD [address] [place] [facility] [place] [address] PCP - General Family Medicine 10/03/22 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 Specialty Start Date End Date Sara Medellin MD [address] [facility] [place] [address] PCP - General Family Medicine 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/22 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 Specialty Start Date End Date Sara Medellin MD [address] [facility] [place] [address] PCP - General Family Medicine 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/22 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 [facility]. provides no warranty or guarantee of the accuracy or completeness of information in this document.
[2024-04-18] MEDS: OXYTOCIN/0.9 % SODIUM CHLORIDE 20 UNITS/1,000 ML PLAST..BAG 125 UNIT IV (11:05)
--- NOTE | 2024-04-18 11:10 | PM.OBPRCVD ---
Procedure Intrapartal events: None Induction method: per pitocin protocol Delivery augmentation: pitocin Delivery monitor: external FHT and external uterine Route of delivery: L&D Laceration Description: periurethral - 1st degree Delivery repair: Vicryl Estimated blood loss (mL): 250 Anesthesia type: Epidural Disposition: floor Infant Delivery date: 04/18/24 Gender: male presentation: vertex Placental delivery description: Spontaneous cord description: 3 Vessels and Nuchal Cord
[2024-04-18] MEDS: IBUPROFEN 600 MG TABLET PO ×2 (14:56→20:23)
[2024-04-18] MEDS: LEVOTHYROXINE SODIUM 25 MCG TABLET 50 MCG PO (20:23)
[2024-04-18] MEDS: ACETAMINOPHEN 325 MG TABLET 650 MG PO (20:23)
[2024-04-18] MEDS: OMEPRAZOLE 40 MG CAPSULE.DR PO (20:24)
[2024-04-18] MEDS: LEVOTHYROXINE SODIUM 175 MCG TABLET PO (20:24)
[2024-04-18] MEDS: CITALOPRAM HYDROBROMIDE 20 MG TABLET PO (20:24)
[2024-04-19] VITALS: TEMP 36.6
[2024-04-19] MEDS: IBUPROFEN 600 MG TABLET PO (04:37)
[2024-04-19] MEDS: ACETAMINOPHEN 325 MG TABLET 650 MG PO (04:38)
[2024-04-19 06:35] LABS: Basophils Percent Auto 0.3 % (0.2-2.0); Eosinophils Absolute Auto 0.3 10^3/uL (0.0-0.7); Eosinophils Percent Auto 1.7 % (0.9-7.0); Hematocrit 32.7 % (36.0-48.0); Hemoglobin 10.5 g/dL (12.0-16.0); Immature Granulocytes Abs Auto 0.06 10^3/uL (0.00-0.03); Immature Granulocytes Pct Auto 0.4 % (0.0-0.5); Lymphocytes Percent Auto 20.1 % (20.5-60.0); Mean Corpuscular HGB Conc 32.1 g/dL (29.9-35.2); Mean Corpuscular Hemoglobin 29.2 pg (26.7-34.0); Mean Corpuscular Volume 90.8 fL (81.0-99.0); Mean Platelet Volume 10.1 fL (9.5-13.5); Monocytes Absolute Auto 0.7 10^3/uL (0.3-0.8); Monocytes Percent Auto 4.8 % (1.7-12.0); Neutrophils Percent Auto 72.7 % (43.0-75.0); Platelet Count 262 10^3/uL (150-450); Red Cell Distribution Width 13.3 % (11.0-15.0); White Blood Count 15.1 10^3/uL (4.0-11.0)
[2024-04-19 08:09] VITALS: BP 115/57; PULSE 68
[2024-04-19 08:10] VITALS: BP 115/57; PULSE 68; TEMP 36.7
--- NOTE | 2024-04-19 09:16 | P.OBPN_ITS ---
OB - PN: Subj Subjective Patient comments: no complaints and pain well controlled [place] status: doing well Exam Constitutional Vital Signs, click to edit/add: Last Vital Signs Temp 97.9 F 04/19/24 00:00 Pulse 68 04/19/24 08:09 Resp 14 04/19/24 00:00 BP 115/57 04/19/24 08:09 O2 Del Method Room Air 04/19/24 00:00 Documenting provider has reviewed patient's vital signs: yes Common normals: no apparent distress Respiratory Common normals: clear to auscultation bilaterally Cardio Common normals: regular rate and regular rhythm GI Common normals: Normal to inspection, nondistended, normoactive bowel sounds present Extremity Common normals: normal to inspection and no clubbing, cyanosis or edema Results Labs Labs: Short CBC 04/19/24 Range/Units 06:28 WBC 15.1 H (4.0-11.0) 10^3/uL Hgb 10.5 L (12.0-16.0) g/dL Hct 32.7 L (36.0-48.0) % Plt Count 262 (150-450) 10^3/uL OB - PN: A/P Plan - Vaginal Delivery day: 1 Plan: routine care, discharge home and follow up 6 weeks Time Spent with Patient Time: Total time spent is greater than 50% in coordination of care (as documented) at patient's floor/unit and/or counseling patient: Total time spent with greater than 50% in coordination of care (as documented) at patient's floor/unit and/or counseling patient: less than 15 minutes
[2024-04-19] MEDS: BENZOCAINE/MENTHOL 85 GRAM SPRAY BOTTLE 1 APPLIC TOPICAL (11:20)
[2024-04-19] MEDS: GLYCERIN/WITCH HAZEL PADS 1 PAD TOPICAL (11:20)
[2024-04-19] MEDS: DOCUSATE SODIUM 100 MG CAPSULE PO (13:24)
== END 2024-04-19 13:50 | disposition home or self-care (01) | DRG 560 ==
PROVIDERS: Admitting Provider Obstetrics & Gynecology; PCP Family Medicine; Visit Provider Obstetrics & Gynecology
DX: O71.82 Other specified trauma to perineum and vulva (principal); Z3A.38 38 weeks gestation of pregnancy; Z37.0 Single live birth
CPT/HCPCS: 36415; 80307; 85025; 85027; 86850; 86900; 86901; J2795

== ENCOUNTER 2024-04-26 14:49 | Emergency (ER) | payer OTHER, SELFPAY ==
--- OUTSIDE RECORDS SUMMARY | 2024-04-26 14:57 | XMS_ITS | CCD ---
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 Name Role Phone Sara Medellin MD Primary Care Provider [phone] RAIZA, DR GUERRA Consulting Unavailable HOY ., [...] Unavailable Sara Medellin MD Primary Care Provider [phone] Sara Medellin MD Primary Care Provider [phone] Sara Medellin MD Primary Care Provider [phone] SARA MEDELLIN Primary Care Unavailable Arslan GARCIA Attending Unavailable SARA MEDELLIN Primary Care Unavailable Arslan GARCIA Attending Unavailable SARA MEDELLIN Primary Care Unavailable YFN MICHELLE Attending Unavailable SHANIA, ACOSTA R Referring Unavailable SARA MEDELLIN Primary Care Unavailable SHANIA, ACOSTA R Referring Unavailable SARA MEDELLIN Primary Care Unavailable Sara Medellin MD Primary Care Provider [phone] SHANIA, ACOSTA Attending Unavailable SHANIA, ACOSTA Attending [...] Hives, Shortness of Breath, Anaphylaxis [facility] (13 sources) Penicillins; Translations: [PENICILLINS] Drug Allergy 04-11-20 22 Hives, Shortness of Breath [facility] (2 sources) Cefaclor Drug Allergy 05-10-19 14 [facility] (2 sources) Penicillins Drug allergy (disorder) 05-10-19 14 [facility] (20 sources) Penicillin G sodium; Translations: [PENICILLIN G SODIUM] Allergy to substance 09-24-19 Anaphylaxis [facility] (20 sources) Cephalosporins (Antibiotic); Translations: [CEPHALOSPORINS] Propensity [...] morning. Active azithromycin 250 mg oral tablet (11 sources) Macrolide Antimicrobial Start: 04-10-2024 azithromycin (Zithromax Z-Jacobo) 250 MG tablet Indications: Sinusitis, unspecified chronicity, unspecified location As directed 6 tablet 04/10/2024 Active Start: 02-26-2024 End: 03-24-2024 azithromycin (Zithromax Z-Pa k) 250 MG tablet Indications: Sinusitis, unspecified chronicity, unspecified location As directed 6 tablet 02/26/2024 03/24/2024 Discontinued benzocaine 0.075 mg/mg oral gel (7 sources) Standardized Chemical Allergen benzocaine (Baby Orajel) [...] PRODUCT (12 sources) OTC PRODUCT Supplement by [employer] for breast feeding Active OTC PRODUCT Supp lement by [employer] for breast feeding 0 Active Comment on above: Supplement by [employer] for breast feeding 27-1 MG tablet [...] 08-07-2022 Episodic Other aftercare (1 source) 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; 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] Onset: 08-24-2022 Episodic Other [...] ] Onset: 01-11-2024 Episodic Residual codes; unclassified (20 sources) Gestation period, 29 weeks; Translations: [29 weeks gestation of ] Onset: 02-11-2024 02-11-2024 Episodic Residual codes; unclassified (20 sources) History of placental abruption; Translations: [Personal history of other complications of , childbirth and the puerperium] Onset: 02-11-2024 02-11-2024 Episodic Residual codes; unclassified (20 sources) Noncompliance with medication regimen; Translations: [Non [...] Test Name Value Interpretation Reference Range Facility ALL CBC WITH AUTO DIFFon BASOPHILS ABSOLUTE AUTO 0 [facility] Basophils/100 WBC (Bld) 0.3 % 0.2 - 2.0 % [facility] Eosinophils/100 WBC (Bld) 1.7 % 0.9 - 7.0 % [facility] Erythrocyte distribution width (RBC) [Ratio] 13.3 % 11.0 - 15.0 % [facility] Hematocrit (Bld) [Volume fraction] 32.7 % Low 36.0 - 48.0 % [facility] Hemoglobin (Bld) [Mass/Vol] 10.5 g/dL Low 12.0 - 16.0 g/dL [facility] IMMATURE GRANULOCYTES ABS AUTO 0.06 High [facility] Immature granulocytes/100 WBC (Bld) 0.4 % 0.0 - 0.5 % [facility] Interpretation and review of laboratory results Abnormal [facility] LYMPHOCYTES ABSOLUTE AUTO 3 [facility] Lymphocytes/100 WBC (Bld) 20.1 % Low 20.5 - 60.0 % [facility] MCH (RBC) [Entitic mass] 29.2 pg 26.7 - 34.0 pg [facility] MCHC (RBC) [Mass/Vol] 32.1 g/dL 29.9 - 35.2 g/dL [facility] MCV (RBC) [Entitic vol] 90.8 fL 81.0 - 99.0 fL [facility] MONOCYTES ABSOLUTE AUTO 0.7 [facility] Monocytes/100 WBC (Bld) 4.8 % 1.7 - 12.0 % [facility] NEUTROPHILS ABSOLUTE AUTO 11 High [facility] Neutrophils/100 WBC (Bld) 72.7 % 43.0 - 75.0 % [facility] Platelet mean volume (Bld) [Entitic vol] 10.1 fL 9.5 - 13.5 fL [facility] TBH EO # 0.3 [facility] TBH PLT 262 [facility] TB RBC 3.6 Low [facility] WBC 15.1 High [facility] DRUG SCREEN RAPID (URINE )on 04-18-2024 AMPHETAMINE SCREEN URINE Negative NEGATIVE [facility] BARBITURATES SCREEN URINE Negative NEGATIVE [facility] BENZODIAZEPINES SCREEN URINE Negative NEGATIVE [facility] BUPRENORPHINE SCREEN URINE Negative NEGATIVE [facility] Comment on above: DRUG CLASS TEST SYST EM CUT-OFF CONCENTRATIONS ARE FOLLOWS: AMP (Amphetamine): 500 ng/mL BAR (Barbiturates): 200 ng/mL BZO (Benzodiazepines): 150 ng/mL BUP (Buprenorphine): 10 ng/mL EDWIN (Cocaine): 150 ng/mL mAMP (Methamphetamine): 500 ng/mL MTD (Methadone): 200 ng/mL OPI (Opiates): 100 ng/mL OXY (Oxycodone): 100 ng/mL PCP (Phencyclidine): 25 ng/mL THC (Cannabinoids): 50 ng/mL TCA (Trycyclic Antidepressants): 300 ng/mL CANNABINOID SCREEN URINE Negative NEGATIVE [facility] COCAINE SCREEN URINE Negative NEGATIVE [facility] METHADONE SCREEN URINE Negative NEGATIVE [facility] METHAMPHETAMINES SCREEN URINE Negative NEGATIVE [facility] OPIATE SCREEN URINE Negative NEGATIVE [facility] OXYCODONE SCREEN URINE Negative NEGATIVE [facility] PHENCYCLIDINE SCREEN URINE Negative NEGATIVE [facility] TRICYCLIC ANTIDEPRESSANT URINE Negative NEGATIVE [facility] Urinalysis macro (dipstick) panel (U)on 03-31-2024 Bilirubin, UA Negative Negative - 4(70) +++ mg/dL [facility] Blood, UA Negative Negative - 50 Maury/mcL [facility] Clarity, UA Clear [facility] Color, UA Yellow [facility] Glucose, UA Negative Negative - 1999(110) ++++ mg/dL [facility] Interpretation and review of laboratory results Abnormal [facility] Ketones, UA Negative Negative - 160(16) ++++ mg/dL [facility] Leukocytes, UA Positive Negative - 500+++ Fan/mcL [facility] Nitrite, UA Negative Negative - Positive [facility] pH, UA 7 5 - 9 [facility] Protein, UA Trace Negative - 1999(20) ++++ mg/dL [facility] Spec Grav, UA 1.025 1 - 1.03 [facility] Urobilinogen, UA 1.0 0.2 - 12 mg/dL [facility] Urinalysis macro (dipstick) panel (U)on 03-24-2024 Bilirubin, UA Positive Negative - 4(70) +++ mg/dL [facility] Comment on above: moderate Blood, UA Negative Negative - 50 Maury/mcL [facility] Clarity, UA Clear [facility] Color, UA Amanda [facility] Glucose, UA Positive Negative - 1999(110) ++++ mg/dL [facility] Comment on above: 100 Interpretation and review of laboratory results Abnormal [facility] Ketones, UA Positive Negative - 160(16) ++++ mg/dL [facility] Comment on above: 15 Leukocytes, UA Negative Negative - 500+++ Fan/mcL [facility] Nitrite, UA Negative Negative - Positive [facility] pH, UA 6.5 5 - 9 [facility] Protein, UA Positive Negative - 1999(20) ++++ mg/dL [facility] Comment on above: 100 Spec Grav, UA 1.025 1 - 1.03 [facility] Urobilinogen, UA 2.0 0.2 - 12 mg/dL [facility] Referral to Food C linicon 02-26-2024 [facility] Urinalysis macro (dipstick) panel (U)on 02-11-2024 Bilirubin, UA Negative Negative - 4(70) +++ mg/dL [facility] Blood, UA Negative Negative - 50 Maury/mcL [facility] Clarity, UA Clear [facility] Color, UA Yellow [facility] Glucose, UA Negative Negative - 1999(110) ++++ mg/dL [facility] Interpretation and review of laboratory results Abnormal [facility] Ketones, UA Negative Negative - 160(16) ++++ mg/dL [facility] Leukocytes, UA Positive Negative - 500+++ Fan/mcL [facility] Nitrite, UA Negative Negative - Positive [facility] pH, UA 7 5 - 9 [facility] Protein, UA Positive Negative - 1999(20) ++++ mg/dL [facility] Spec Grav, UA 1.02 1 - 1.03 [facility] Urobilinogen, UA 1.0 0.2 - 12 mg/dL [facility] ALL THYROID STIM HORMONEon Interpretation and review of laboratory results Abnormal [facility] TSH Qn 28.537 m[IU]/L High [facility] Urinalysis macro (dipstick) panel (U)on 01-14-2024 Bilirubin, UA Positive Negative - 4(70) +++ mg/dL [facility] Blood, UA Negative Negative - 50 Maury/mcL [facility] Clarity, UA Clear [facility] Color, UA Yellow [facility] Glucose, UA Negative Negative - 1999(110) ++++ mg/dL [facility] Interpretation and review of laboratory results Abnormal [facility] Ketones, UA Positive Negative - 160(16) ++++ mg/dL [facility] Comment on above: small Leukocytes, UA Positive Negative - 500+++ Fan/mcL [facility] Comment on above: small Nitrite, UA Negative Negative - Positive [facility] pH, UA 6.5 5 - 9 [facility] Protein, UA Negative Negative - 2000(20) ++++ mg/dL [facility] Spec Grav, UA 1.020 1 - 1.03 [facility] Urobilinogen, UA 1.0 0.2 - 12 mg/dL [facility] ALL CBC WITH AUTO DIFFon BASOPHILS ABSOLUTE AUTO 0.0 [facility] Basophils/100 WBC (Bld) 0.3 % 0.2 - 2.0 % [facility] Eosinophils/100 WBC (Bld) 2.4 % 0.9 - 7.0 % [facility] Erythrocyte distribution width (RBC) [Ratio] 13.6 % 11.0 - 15.0 % [facility] Hematocrit (Bld) [Volume fraction] 35.0 % Low 36.0 - 48.0 % [facility] Hemoglobin (Bld) [Mass/Vol] 11.8 g/dL Low 12.0 - 16.0 g/dL [facility] IMMATURE GRANULOCYTES ABS AUTO 0.02 [facility] Immature granulocytes/100 WBC (Bld) 0.2 % 0.0 - 0.5 % [facility] Interpretation and review of laboratory results Abnormal [facility] LYMPHOCYTES ABSOLUTE AUTO 2.1 [facility] Lymphocytes/100 WBC (Bld) 23.6 % 20.5 - 60.0 % [facility] MCH (RBC) [Entitic mass] 30.1 pg 26.7 - 34.0 pg [facility] MCHC (RBC) [Mass/Vol] 33.7 g/dL 29.9 - 35.2 g/dL [facility] MCV (RBC) [Entitic vol] 89.3 fL 81.0 - 99.0 fL [facility] MONOCYTES ABSOLUTE AUTO 0.4 [facility] Monocytes/100 WBC (Bld) 3.9 % 1.7 - 12.0 % [facility] NEUTROPHILS ABSOLUTE AUTO 6.2 [facility] Neutrophils/100 WBC (Bld) 69.6 % 43.0 - 75.0 % [facility] Platelet mean volume (Bld) [Entitic vol] 9.8 fL 9.5 - 13.5 fL [facility] TBH EO # 0.2 [facility] PLT 224 [facility] RBC 3.92 Low [facility] WBC 8.9 [facility] Urinalysis macro (dipstick) panel (U)Ordered By: Kerline Clement on 12-19-2023 Bilirubin, UA Negative Negative - 4(70) +++ mg/dL [facility] Blood, UA Negative Negative - 50 Maury/mcL [facility] Clarity, UA Clear [facility] Color, UA Yellow [facility] Glucose, UA Negative Negative - 1999(110) ++++ mg/dL [facility] Interpretation and review of laboratory results Abnormal [facility] Ketones, UA Negative Negative - 160(16) ++++ mg/dL [facility] Leukocytes, UA Moderate Negative - 500+++ Fan/mcL [facility] Nitrite, UA Negative Negative - Positive [facility] Protein, UA Negative Negative - 1999(20) ++++ mg/dL [facility] Spec Grav, UA 0.010 1 - 1.03 [facility] Urobilinogen, UA 1.0 0.2 - 12 mg/dL [facility] Cytology Cervical or vaginal smear or scraping studyon 11-13-2023 [facility] CNPMaru 11-12-2023 CNP[facility] Telephone ([facility]) AMANDA CORTEZ ([id number]) 1990 F Date Time Provider Department 11/12/23 Arslan GARCIA During your visit today, we recorded the following information about you: Danna Pitts RN 11/12/2023 11:25 AM Signed Spoke to pt. She would like to see endocrinology in [place]. Pt's OB did adjust synthroid recently and [...] hear back from patient. Meryl Nguyen PssMeryl 01/09/2024 2:05 PM Signed Called [...] [C73] Order(s):CONSULT TO ENDOCRINOLOGY [9007] Order #: [id number]: [id number] FUTURE Prescriptions as of 01/09/2024 - [...] DANNA PITTS on 11/13/[address] [facility] Emelina 07-19-2023 [facility] AMANDA CORTEZ ([id number]) 1990 F Date Time Provider Department 07/19/23 EDNA SAL During your visit today, we recorded the following information about you: Edna Sal RN 07/19/2023 10:42 AM Signed Pt called to request labs sent to [facility]. Faxed to central scheduling. Edna [...] Encounter Status:Closed by EDNA SAL on 07/19/23 [facility]phone ([facility]) AMANDA CORTEZ ([id number]) 1990 F Date Time Provider Department 06/25/23 [...] Signed [facility] and I scheduled her a phone [...] (HCC) [C73] Order(s):T4/THYROXIN E [SQT4] Order #: [id number] FUTURE THYROID STIMULATING HORMONE [SQTSH] Order #: [id number] FUTURE THYROGLOBULIN, SERUM WITH REFLEX TO IA OR LC-MS/MS [SQTHYRORF] Order #: [id number] FUTURE Prescriptions as of 08/23/2023 - levothyroxine [...] Encounter Status:Closed by Arslan GARCIA on 08/15/23 [facility] AMANDA CORTEZ ([id number]) 1990 F Date Time Provider Department 02/14/23 [...] Status:Closed by OBI GENAO on 02/14/23 Normal [facility] CBC W Auto Differential pane l (Bld)on 02-01-2023 Basophils (Bld) [#/Vol] 0.04 10*3/uL Normal <0.11 [facility] Comment on above: Order Comment: Speci men Type: BLOOD SPECIMEN Ordering Facility: [facility] Address: [place] [address] Performed By: #### 5 7021-8 #### [facility] CLIA [id number] [address] [place] [address] 26970 Basophils/100 WBC (Bld) 0.5 % Normal [facility] Comment on above: Order Comment: Speci men Type: BLOOD SPECIMEN Ordering Facility: [facility] Address: [address] [place] [address] Performed By: #### 5 7021-8 #### [facility] CLIA [id number] [address] [place] [address] 24383 Differential cell count method Nom (Bld) Auto Normal [facility] Comment on above: Order Comment: Speci men Type: BLOOD SPECIMEN Ordering Facility: [facility] Address: [address] [place] [address] Performed By: #### 5 7021-8 #### [facility] CLIA [id number] [address] [place] [address]30 Eosinophils (Bld) [#/Vol] 0.19 10*3/uL Normal <0.46 [facility] Comment on above: Order Comment: Speci men Type: BLOOD SPECIMEN Ordering Facility: [facility] Address: [address] [place] [address] Performed By: #### 5 7021-8 #### [facility] CLIA [id number] [address] [place] [address] 05052 Eosinophils/100 WBC (Bld) 2.5 % Normal [facility] Comment on above: Order Comment: Speci men Type: BLOOD SPECIMEN Ordering Facility: [facility] Address: [address] [place] [address] Performed By: #### 5 7021-8 #### [facility] CLIA [id number] [address] [place] [address] 28265 Erythrocyte distribution width (RBC) [Ratio] 13.3 % Normal 11.5-15.0 [facility] Comment on above: Order Comment: Speci men Type: BLOOD SPECIMEN Ordering Facility: [facility] Address: [address] [place] [address] Performed By: #### 5 7021-8 #### [facility] CLIA [id number] [address] [place] [address] 90916 Hematocrit (Bld) [Volume fraction] 47.7 % High 36.0-46.0 [facility] Comment on above: Order Comment: Speci men Type: BLOOD SPECIMEN Ordering Facility: [facility] Address: [address] [place] [address] Performed By: #### 5 7021-8 #### [facility] CLIA [id number] [address] [place] [address] 93996 Hemoglobin (Bld) [Mass/Vol] 15.6 g/dL High 11.5-15.5 [facility] Comment on above: Order Comment: Speci men Type: BLOOD SPECIMEN Ordering Facility: [facility] Address: [address] [place] [address] Performed By: #### 5 7021-8 #### [facility] CLIA [id number] [address] [place] [address] 35570 Immature granulocytes (Bld) [#/Vol] 0.03 10*3/uL Normal <0.10 [facility] Comment on above: Order Comment: Speci men Type: BLOOD SPECIMEN Ordering Facility: [facility] Address: [address] [place] [address] Performed By: #### 5 7021-8 #### [facility] CLIA [id number] [address] [place] [address] 03055 Immature granulocytes/100 WBC (Bld) 0.4 % Normal [facility] Comment on above: Order Comment: Speci men Type: BLOOD SPECIMEN Ordering Facility: [facility] Address: [address] [place] [address] Performed By: #### 5 7021-8 #### [facility] CLIA [id number] [address] [place] [address] 49713 Lymphocytes (Bld) [#/Vol] 2.30 10*3/uL Normal 1.00-4.00 [facility] Comment on above: Order Comment: Speci men Type: BLOOD SPECIMEN Ordering Facility: [facility] Address: [address] [place] [address] Performed By: #### 5 7021-8 #### [facility] CLIA [id number] [address] [place] [address] 06623 Lymphocytes/100 WBC (Bld) 29.7 % Normal [facility] Comment on above: Order Comment: Speci men Type: BLOOD SPECIMEN Ordering Facility: [facility] Address: [address] [place] [address] Performed By: #### 5 7021-8 #### [facility] CLIA [id number] [address] [place] [address] 33099 MCH (RBC) [Entitic mass] 28.8 pg Normal 26.0-34.0 [facility] Comment on above: Order Comment: Speci men Type: BLOOD SPECIMEN Ordering Facility: [facility] Address: [address] [place] [address] Performed By: #### 5 7021-8 #### [facility] CLIA [id number] [address] [place] [address] 28417 MCHC (RBC) [Mass/Vol] 32.7 g/dL Normal 30.5-36.0 [facility] Comment on above: Order Comment: Speci men Type: BLOOD SPECIMEN Ordering Facility: [facility] Address: [address] [place] [address] Performed By: #### 5 7021-8 #### [facility] CLIA [id number] [address] [place] [address] 89652 MCV (RBC) [Entitic vol] 88.2 fL Normal 80.0-100.0 [facility] Comment on above: Order Comment: Speci men Type: BLOOD SPECIMEN Ordering Facility: [facility] Address: [address] [place] [address] Performed By: #### 5 7021-8 #### [facility] CLIA [id number] [address] [place] [address] 07153 Monocytes (Bld) [#/Vol] 0.49 10*3/uL Normal <0.87 [facility] Comment on above: Order Comment: Speci men Type: BLOOD SPECIMEN Ordering Facility: [facility] Address: [address] [place] [address] Performed By: #### 5 7021-8 #### [facility] CLIA [id number] [address] [place] [address] 01120 Monocytes/100 WBC (Bld) 6.3 % Normal [facility] Comment on above: Order Comment: Speci men Type: BLOOD SPECIMEN Ordering Facility: [facility] Address: [address] [place] [address] Performed By: #### 5 7021-8 #### [facility] CLIA [id number] [address] [place] [address] 73484 Neutrophils (Bld) [#/Vol] 4.70 10*3/uL Normal 1.45-7.50 [facility] Comment on above: Order Comment: Speci men Type: BLOOD SPECIMEN Ordering Facility: [facility] Address: [address] [place] [address] Performed By: #### 5 7021-8 #### [facility] CLIA [id number] [address] [place] [address] 58723 Neutrophils/100 WBC (Bld) 60.6 % Normal [facility] Comment on above: Order Comment: Speci men Type: BLOOD SPECIMEN Ordering Facility: [facility] Address: [address] [place] [address] Performed By: #### 5 7021-8 #### [facility] CLIA [id number] [address] [place] [address] 94728 Nucleated RBC (Bld) [#/Vol] 10*3/uL Normal <0.01 [facility] Comment on above: Order Comment: Speci men Type: BLOOD SPECIMEN Ordering Facility: [facility] Address: [address] [place] [address] Performed By: #### 5 7021-8 #### [facility] CLIA [id number] [address] [place] [address] 00742 Nucleated RBC/100 WBC (Bld) [Ratio] 0.0 /100 WBC Normal [facility] Comment on above: Order Comment: Speci men Type: BLOOD SPECIMEN Ordering Facility: [facility] Address: [address] [place] [address] Performed By: #### 5 7021-8 #### [facility] CLIA [id number] [address] [place] [address] 92916 Platelet mean volume (Bld) [Entitic vol] 9.6 fL Normal 9.0-12.7 [facility] Comment on above: Order Comment: Speci men Type: BLOOD SPECIMEN Ordering Facility: [facility] Address: [address] [place] [address] Performed By: #### 5 7021-8 #### [facility] CLIA [id number] [address] [place] [address] 89746 Platelets (Bld) [#/Vol] 248 10*3/uL Normal 150-400 [facility] Comment on above: Order Comment: Speci men Type: BLOOD SPECIMEN Ordering Facility: [facility] Address: [address] [place] [address] Performed By: #### 5 7021-8 #### [facility] CLIA [id number] [address] [place] [address] 29807 RBC (Bld) [#/Vol] 5.41 10*6/uL High 3.90-5.20 [facility] Comment on above: Order Comment: Speci men Type: BLOOD SPECIMEN [facility]ing Facility: [facility] [facility] Address: [address] [place] [address] Performed By: #### 5 7021-8 #### [facility] CLIA [id number] [address] [place] [id number] WBC (Bld) [#/Vol] 7.75 10*3/uL Normal 3.70-11.00 [facility] Comment on above: Order Comment: Speci men Type: BLOOD SPECIMEN Ordering Facility: [facility] Address: [address] [place] [address] Performed By: #### 5 7021-8 #### [facility] CLIA [id number] [address] [place], [place] [id number] T3 SerPl-mCncon 02-01-2023 T3 [Mass/Vol] 123 ng/dL Normal 79-165 [facility] Comment on above: Order Comment: Chel iverson Type: BLOOD SPECIMEN Ordering Facility: [facility] Address: [address] [place] [address] Performed By: #### 3 053-6, 3016-3, 3026-2 #### [facility] CLIA [id number] [address] [place] [address] [place] T4 SerPl-mCncon 02-01-2023 T4 [Mass/Vol] 11.9 ug/dL High 5.5-10.2 [facility] Comment on above: Order Comment: Chel iverson Type: BLOOD SPECIMEN Ordering Facility: [facility] Address: [address] [place] [address] Performed By: #### 3 053-6, 3016-3, 3026-2 #### [facility] CLIA [id number] [address] [place] [address] [place] THYROGLOBULIN BY MASS SPECTR OMETRYon 02-01-2023 THYROGLOBULIN, LC-MS/MS <0.5 Low 1.3-31.8 [facility] Comment on above: Order Comment: Chel iverson Type: BLOOD SPECIMEN Ordering Facility: [facility] Address: [address] [place] [address] Result Comment: Results obtained with different test [...] developed and its performance characteristics determined by [facility]. It has not been cleared or approved by the US Food and Drug Administration. This test was performed in a CLIA certified laboratory and is intended for clinical purposes. Performed By: [facility] [address] [place] [address] Human Resources Analyst: Prem Willis MD, PhD CLIA Number: [id number] Performed By: #### [facility] #### [facility] CLIA [id number] [address] [place] [address] TSH SerPl-aCncon 02-01-2023 TSH Qn 0.960 m[IU]/L Normal 0.270-4.200 [facility] Comment on above: Order Comment: Speci men Type: BLOOD SPECIMEN Ordering Facility: [facility] Address: [address] [place] [address] Result Comment: If t he patient is , TSH reference range varies by gestational period: First Trimester (weeks 9-12): 0.180-2.990 mIU/L Second Trimester: 0.110-3.980 mIU/L Third Trimester: 0.480-4.710 mIU/L Suman Graf et al. A Practical Approach for the Verifications and Determination of Site- and Trimester-Specific Reference Intervals for Thyroid Function tests in . Thyroid, 2019:29:3:412-420. Rajesh E, et al. 2017 Guidelines of the [place] [employer] for the Diagnosis and Management of Thyroid Disease during and the . Thyroid, 2017:27:3:315-389. Performed By: #### 3 053-6, 3016-3, 3026-2 #### [facility] CLIA [id number] [address] [facility] [id number] [place] [address] [place] PREG QUANT HCGon 08-17-2022 HCG QUANT 1 mIU/mL Normal [facility] Comment on above: Performed By: #### P REGQNT #### [facility] [address] [address] [address] Prashant Kang HCG RANGE SEE BELOW Normal [facility] Comment on above: Result Comment: 5-50 0.2-1 WEEK 50-500 1-2 WEEKS 100-5,000 2-3 WEEKS 500-10,000 3-4 WEEKS 1,000-50,000 4-5 WEEKS 10,000-100,000 5-6 WEEKS 15,000-200,000 6-8 WEEKS 10,000-100,000 2-3 MONTHS Performed By: #### P REGQNT #### [facility] [address] [place] [address] Dr. Parshant Kang PREG QUANT HCGon 07-04-2022 HCG QUANT <1 Normal [facility] Comment on above: Performed By: #### P REGQNT #### [facility] [address] [place] [address] Dr. Prashant Kang HCG RANGE SEE BELOW Normal [facility] Comment on above: Result Comment: 5-50 0.2-1 WEEK 50-500 1-2 WEEKS 100-5,000 2-3 WEEKS 500-10,000 3-4 WEEKS 1,000-50,000 4-5 WEEKS 10,000-100,000 5-6 WEEKS 15,000-200,000 6-8 WEEKS 10,000-100,000 2-3 MONTHS Performed By: #### P REGQNT #### [facility] [address] [place] [address] Dr. Prashant Kang PREG QUANT HCGon 05-16-2022 HCG QUANT <1 Normal [facility] Comment on above: Performed By: #### P TT, PT #### [facility] [address] [place] [address] Dr. Prashant Kang HCG RANGE SEE BELOW Normal [facility] Comment on above: Result Comment: 5-50 0.2-1 WEEK 50-500 1-2 WEEKS 100-5,000 2-3 WEEKS 500-10,000 3-4 WEEKS 1,000-50,000 4-5 WEEKS 10,000-100,000 5-6 WEEKS 15,000-200,000 6-8 WEEKS 10,000-100,000 2-3 MONTHS Performed By: #### P TT, PT #### [facility] [address] [place] [address] Dr. Prashant Kang PREG QUANT HCGon 05-08-2022 HCG QUANT <1 Normal [facility] Comment on above: Performed By: #### P REGQNT #### [facility] [address] [place] [address] Dr. Prashant Kang HCG RANGE SEE BELOW Normal [facility] Comment on above: Result Comment: 5-50 0.2-1 WEEK 50-500 1-2 WEEKS 100-5,000 2-3 WEEKS 500-10,000 3-4 WEEKS 1,000-50,000 4-5 WEEKS 10,000-100,000 5-6 WEEKS 15,000-200,000 6-8 WEEKS 10,000-100,000 2-3 MONTHS Performed By: #### P REGQNT #### [facility] [address] [address] [address] Prashant Kang CALCIUMon 03-08-2022 Calcium [Mass/Vol] 8.6 mg/dL Normal 8.5-10.1 [facility] Comment on above: Performed By: #### C A #### [facility] [address] [place] [address] Dr. Prashant Kang CALCIUMon 03-07-2022 Calcium [Mass/Vol] 8.4 mg/dL Critically low 8.5-10.1 [facility] Comment on above: Performed By: #### C A #### [facility] [address] [place] [address] Dr. Prashant Kang PREG HCG QUALon 03-07-2022 , QUAL Negative Normal NEGATIVE [facility] Comment on above: Performed By: #### P REG #### [facility] [address] [place] [address] Dr. Prashant Kang Covid-19 PCR (CVDTB)on SARS-CoV-2 (COVID-19) RNA DENEEN+probe Ql (Unsp spec) Not detected Normal NOT DETECTED [facility] Comment on above: Result Comment: This test is not yet approved or cleared by the [place] FDA. When there are no FDA-approved or cleared tests available, and other criteria are met, FDA can make tests available under an emergency access mechanism called an Emergency Use Authorization (EUA). The EUA for this test is supported by the Luggage Repairer of Health and Human Service's (HHS's) declaration [...] SARS-CoV-2. Performed By: #### C VDTB #### [facility] [address] [place] [address] Dr. Prashant Kang CALCIUMon 02-24-2022 Calcium [Mass/Vol] 8.8 mg/dL Normal 8.5-10.1 [facility] Comment on above: Performed By: #### P TT, PT #### [facility] [address] [place] [address] Dr. Prashant Kang CBC AUTO DIFFon 02-24-2022 BASO # 0.0 103/ul Normal 0.0-0.1 [facility] Comment on above: Performed By: #### P TT, PT #### [facility] [address] [place] [address] Dr. Prashant Kang Basophils/100 WBC (Bld) 0.3 % Normal 0.2-2.0 [facility] Comment on above: Performed By: #### P TT, PT #### [facility] [address] [place] [address] Dr. Prashant Kang EO # 0.1 103/ul Normal 0.0-0.7 [facility] Comment on above: Performed By: #### P TT, PT #### [facility] [address] [place] [address] Dr. Prashant Kang Eosinophils/100 WBC (Bld) 1.5 % Normal 0.9-7.0 [facility] Comment on above: Performed By: #### P TT, PT #### [facility] [address] [place] [address] Dr. Prashant Kang Erythrocyte distribution width (RBC) [Ratio] 13.8 % Normal 11.0-15.0 [facility] Comment on above: Performed By: #### P TT, PT #### [facility] [address] [place] [address] Dr. Prashant Kang Hematocrit (Bld) [Volume fraction] 45.5 % Normal 36.0-48.0 [facility] Comment on above: Performed By: #### P TT, PT #### [facility] [address] [place] [address] Dr. Prashant Kang Hemoglobin (Bld) [Mass/Vol] 14.6 g/dL Normal 12.0-16.0 [facility] Comment on above: Performed By: #### P TT, PT #### [facility] [address] [place] [address] Dr. Prashant Kang IG # 0.02 10e3/ul Normal 0.00-0.03 [facility] Comment on above: Performed By: #### P TT, PT #### [facility] [address] [place] [address] Dr. Prashant Kang IG % 0.3 % Normal 0.0-0.5 [facility] Comment on above: Performed By: #### P TT, PT #### [facility] [address] [place] [address] Dr. Prashant Kang LYMPH # 1.6 103/ul Normal 1.2-3.8 [facility] Comment on above: Performed By: #### P TT, PT #### [facility] [address] [place] [address] Dr. Prashant Kang Lymphocytes/100 WBC (Bld) 23.5 % Normal 20.5-60.0 [facility] Comment on above: Performed By: #### P TT, PT #### [facility] [address] [place] [address] Dr. Prashant Kang MANUAL DIFF REQ NO Normal [facility] Comment on above: Performed By: #### P TT, PT #### [facility] [address] [place] [address] Dr. Prashant Kang MCH (RBC) [Entitic mass] 26.5 pg Critically low 26.7-34.0 [facility] Comment on above: Performed By: #### P TT, PT #### [facility] [address] [place] [address] Dr. Prashant Kang MCHC (RBC) [Mass/Vol] 32.1 g/dL Normal 29.9-35.2 [facility] Comment on above: Performed By: #### P TT, PT #### [facility] [address] [place] [address] Dr. Prashant Kang MCV (RBC) [Entitic vol] 82.7 fL Normal 81.0-99.0 [facility] Comment on above: Performed By: #### P TT, PT #### [facility] [address] [place] [address] Dr. Prashant Kang MONO # 0.5 103/ul Normal 0.3-0.8 [facility] Comment on above: Performed By: #### P TT, PT #### [facility] [address] [place] [address] Dr. Prashant Kang Monocytes/100 WBC (Bld) 7.5 % Normal 1.7-12.0 [facility] Comment on above: Performed By: #### P TT, PT #### [facility] [address] [place] [address] Dr. Prashant Kang NEUT # 4.6 103/ul Normal 1.4-6.5 [facility] Comment on above: Performed By: #### P TT, PT #### [facility] [address] [place] [address] Dr. Prashant Kang Neutrophils/100 WBC (Bld) 66.9 % Normal 43.0-75.0 [facility] Comment on above: Performed By: #### P TT, PT #### [facility] [address] [place] [address] Dr. Prashant Kang Platelet mean volume (Bld) [Entitic vol] 9.9 fL Normal 9.5-13.5 [facility] Comment on above: Performed By: #### P TT, PT #### [facility] [address] [place] [address] Dr. Prashant Kang PLT 239 103/ul Normal 150-450 [facility] Comment on above: Performed By: #### P TT, PT #### [facility] [address] [place] [address] Dr. Prashant Kang RBC 5.50 106/ul Critically high 4.20-5.40 [facility] Comment on above: Performed By: #### P TT, PT #### [facility] [address] [place] [address] Dr. Prashant Kang WBC 6.8 103/ul Normal 4.0-11.0 [facility] Comment on above: Performed By: #### P TT, PT #### [facility] [address] [place] [address] Dr. Prashant Kang MAGNESIUMon 02-24-2022 Magnesium [Mass/Vol] 2.0 mg/dL Normal 1.8-2.4 [facility] Comment on above: Performed By: #### P TT, PT #### [facility] [address] [place] [address] Dr. Prashant Kang PHOSPHORUSon 02-24-2022 Phosphate [Mass/Vol] 3.3 mg/dL Normal 2.6-4.7 [facility] Comment on above: Performed By: #### P TT, PT #### [facility] [address] [place] [address] Dr. Prashant Kang PROTIMEon 02-24-2022 INR Coag (PPP) [Relative time] 1.01 {INR} Normal [facility] Comment on above: Performed By: #### P TT, PT #### [facility] [address] [place] [address] Dr. Prashant Kang INR GUIDELINES SEE BELOW Normal [facility] Comment on above: Result Comment: SALIMA RED INR: 2.0 - 3.0 CONDITIONS NOT LISTED BELOW 2.5 - 3.5 FOR PROSTHETIC HEART VALVE REPLACEMENT 2.5 - 3.5 RECURRENT THROMBOSIS Performed By: #### P TT, PT #### [facility] [address] [place] [address] Dr. Prashant Kang PT Coag (PPP) [Time] 10.9 s Normal 9.0-11.6 [facility] Comment on above: Performed By: #### P TT, PT #### [facility] [address] [place], [place] [address] Dr. Prashant Kang PTTon 02-24-2022 aPTT Coag (Bld) [Time] 28.9 s Normal 22.3-36.2 [facility] Comment on above: Performed By: #### P TT, PT #### [facility] [address] [place], [place] [address] Dr. Prashant Kang TSHon 02-24-2022 TSH 1.163 uIU/mL Normal 0.358-3.740 [facility] Comment on above: Performed By: #### P TT, PT #### [facility] [address] [place], [place] [address] Dr. Prashant Kang US THYROID FN ASP BXon 02-09 US THYROID FN ASP BX Begin Addendum #1 COLLECTED DATE/TIME: 02/03/2022 11:36 EDT Final Diagnosis Report for [facility] [place] (A/B) THYROID ISTHMUS NODULE, FINE NEEDLE [...] 2. Pathology results are pending. Normal [facility] CT NECK ST W CONon 2 [...] SHAILESH EMERY Date: 2022-01-20 13:05 Normal [facility] US THYROIDon 01-20-2022 US THYROID EXAMINATION: [...] isthmus nodule. Consider fine-needle aspiration TI-RADS: The [place] [employer] TI-RADS committee's white paper recommendations for thyroid lesions classified as TR4 (moderately suspicious) are listed below: > 1.0 cm. Follow-up ultrasound in 1, 2, 3, and 5 years. > 1.5 cm. FNA. J. Am More Radiol 2017;14:587-595. Electronically authenticated by: SHAILESH EMERY Date: 2022-01-20 21:46 Normal [facility] CBC AUTO DIFFon 01-08-2022 BASO # 0.0 103/ul Normal 0.0-0.1 [facility] Comment on above: Performed By: #### P TT, PT #### [facility] [address] [place] [address] Dr. Prashant Kang Basophils/100 WBC (Bld) 0.4 % Normal 0.2-2.0 [facility] Comment on above: Performed By: #### P TT, PT #### [facility] [address] [place] [address] Dr. Prashatn Kang EO # 0.2 103/ul Normal 0.0-0.7 [facility] Comment on above: Performed By: #### P TT, PT #### [facility] [address] [place] [address] Dr. Prashant Kang Eosinophils/100 WBC (Bld) 3.4 % Normal 0.9-7.0 [facility] Comment on above: Performed By: #### P TT, PT #### [facility] [address] [place] [address] Dr. Prashant Kang Erythrocyte distribution width (RBC) [Ratio] 14.6 % Normal 11.0-15.0 [facility] Comment on above: Performed By: #### P TT, PT #### [facility] [address] [place] [address] Dr. Prashant Kang Hematocrit (Bld) [Volume fraction] 42.9 % Normal 36.0-48.0 [facility] Comment on above: Performed By: #### P TT, PT #### [facility] [address] [place] [address] Dr. Prashant Kang Hemoglobin (Bld) [Mass/Vol] 13.4 g/dL Normal 12.0-16.0 [facility] Comment on above: Performed By: #### P TT, PT #### [facility] [address] [place] [address] Dr. Prashant Kang IG # 0.02 10e3/ul Normal 0.00-0.03 [facility] Comment on above: Performed By: #### P TT, PT #### [facility] [address] [place] [address] Dr. Prashant Kang IG % 0.3 % Normal 0.0-0.5 [facility] Comment on above: Performed By: #### P TT, PT #### [facility] [address] [address] [address] Prashant Kang LYMPH # 2.0 103/ul Normal 1.2-3.8 [facility] Comment on above: Performed By: #### P TT, PT #### [facility] [address] [address] [address] Prashant Kang Lymphocytes/100 WBC (Bld) 29.7 % Normal 20.5-60.0 [facility] Comment on above: Performed By: #### P TT, PT #### [facility] [address] [address] [address] Prashant Kang MANUAL DIFF REQ NO Normal [facility] Comment on above: Performed By: #### P TT, PT #### [facility] [address] [place] [address] Dr. Prashant Kang MCH (RBC) [Entitic mass] 26.3 pg Critically low 26.7-34.0 [facility] Comment on above: Performed By: #### P TT, PT #### [facility] [address] [address] [address] Prashant Kang MCHC (RBC) [Mass/Vol] 31.2 g/dL Normal 29.9-35.2 [facility] Comment on above: Performed By: #### P TT, PT #### [facility] [address] [place] [address] Dr. Prashant Kang MCV (RBC) [Entitic vol] 84.1 fL Normal 81.0-99.0 [facility] Comment on above: Performed By: #### P TT, PT #### [facility] [address] [address] [address] Prashant Kang MONO # 0.6 103/ul Normal 0.3-0.8 [facility] Comment on above: Performed By: #### P TT, PT #### [facility] [address] [address] [address] Prashant Kang Monocytes/100 WBC (Bld) 8.7 % Normal 1.7-12.0 [facility] Comment on above: Performed By: #### P TT, PT #### [facility] [address] [place] [address] Dr. Prashant Kang NEUT # 3.9 103/ul Normal 1.4-6.5 [facility] Comment on above: Performed By: #### P TT, PT #### [facility] [address] [place] [address] Dr. Prashant Kang Neutrophils/100 WBC (Bld) 57.5 % Normal 43.0-75.0 [facility] Comment on above: Performed By: #### P TT, PT #### [facility] [address] [place] [address] Dr. Prashant Kang Platelet mean volume (Bld) [Entitic vol] 9.9 fL Normal 9.5-13.5 [facility] Comment on above: Performed By: #### P TT, PT #### [facility] [address] [place] [address] Dr. Prashant Kang PLT 241 103/ul Normal 150-450 [facility] Comment on above: Performed By: #### P TT, PT #### [facility] [address] [place] [address] Dr. Prashant Kang RBC 5.10 106/ul Normal 4.20-5.40 [facility] Comment on above: Performed By: #### P TT, PT #### [facility] [address] [place] [address] Dr. Prashant Kang WBC 6.8 103/ul Normal 4.0-11.0 [facility] Comment on above: Performed By: #### P TT, PT #### [facility] [address] [place] [address] Dr. Prashant Kang GROUP A STREP CULTUREon 12-29 S. pyogenes Ag Ql (Unsp spec) Culture Observations: NEGATIVE FOR GROUP A STREPTOCOCCUS. Normal [facility] Comment on above: Performed By: #### P TT, PT #### [facility] [address] [place] [address] Dr. Prashant Kang PROF 14(COMP METB)on 022 Albumin [Mass/Vol] 3.6 g/dL Normal 3.4-5.0 [facility] Comment on above: Performed By: #### C MP #### [facility] [address] [place] [address] Dr. Prashant Kang Albumin/Globulin [Mass ratio] 0.8 {ratio} Normal [facility] Comment on above: Performed By: #### C MP #### [facility] [address] [place] [address] Dr. Prashant Kang ALP [Catalytic activity/Vol] 74 U/L Normal 46-116 [facility] Comment on above: Performed By: #### C MP #### [facility] [address] [place] [address] Dr. Prashant Kang ALT [Catalytic activity/Vol] 40 U/L Normal 14-59 [facility] Comment on above: Performed By: #### C MP #### [facility] [address] [place] [address] Dr. Prashant Kang Anion gap [Moles/Vol] 14.0 mmol/L Normal [facility] Comment on above: Performed By: #### C MP #### [facility] [address] [place] [address] Dr. Prashant Kang AST [Catalytic activity/Vol] 31 U/L Normal 15-37 [facility] Comment on above: Performed By: #### C MP #### [facility] [address] [place] [address] Dr. Prashant Kang Bilirubin [Mass/Vol] 0.4 mg/dL Normal 0.2-1.0 [facility] Comment on above: Performed By: #### C MP #### [facility] [address] [place] [address] Dr. Prashant Kang Calcium [Mass/Vol] 8.8 mg/dL Normal 8.5-10.1 [facility] Comment on above: Performed By: #### C MP #### [facility] [address] [place] [address] Dr. Prashant Kang Chloride [Moles/Vol] 105 mmol/L Normal 98-107 [facility] Comment on above: Performed By: #### C MP #### [facility] [address] [address] [address] Prashant Kang CO2 [Moles/Vol] 26.6 mmol/L Normal 21.0-32.0 [facility] Comment on above: Performed By: #### C MP #### [facility] [address] [address] [address] Prashant Kang Creatinine [Mass/Vol] 0.80 mg/dL Normal 0.55-1.02 [facility] Comment on above: Performed By: #### C MP #### [facility] [address] [address] [address] Prashant Kang EGFR-AF LATVIAN >60 Normal >=60 [facility] Comment on above: Performed By: #### C MP #### [facility] [address] [place] [address] Dr. Prashant Kang EGFR-NON AF LATVIAN >60 Normal >=60 [facility] Comment on above: Performed By: #### C MP #### [facility] [address] [address] [address] Prashant Kang Globulin (S) [Mass/Vol] 4.3 g/dL Normal [facility] Comment on above: Performed By: #### C MP #### [facility] [address] [place] [address] Dr. Prashant Kang Glucose [Mass/Vol] 101 mg/dL Normal 74-106 [facility] Comment on above: Performed By: #### C MP #### [facility] [address] [address] [address] Prashant Kang Potassium [Moles/Vol] 4.6 mmol/L Normal 3.5-5.1 [facility] Comment on above: Performed By: #### C MP #### [facility] [address] [place] [address] Dr. Prashant Kang Protein [Mass/Vol] 7.9 g/dL Normal 6.4-8.2 [facility] Comment on above: Performed By: #### C MP #### [facility] [address] [place], [place] [address] Dr. Prashant Kang Sodium [Moles/Vol] 141 mmol/L Normal 136-145 [facility] Comment on above: Performed By: #### C MP #### [facility] [facility] [address] [place], [place] [address] Dr. Prashant Kang Urea nitrogen [Mass/Vol] 11.0 mg/dL Normal 7.0-18.0 [facility] Comment on above: Performed By: #### C MP #### [facility] [address] [place], [place] [address] Dr. Prashant Kang Urea nitrogen/Creatinine [Mass ratio] 13.8 mg/mg Normal [facility] Comment on above: Performed By: #### C MP #### [facility] [address] [place], [place] [address] Dr. Prashant Kang STREPT SCREENon 01-08-2022 STREP SCREEN A Negative Normal NEGATIVE [facility] Comment on above: Performed By: #### P TT, PT #### [facility] [address] [place], [place] [address] Dr. Prashant Kang XR NECK SOFT TISSUEon [...] MIKE SAID Date: 2022-01-08 04:43 Normal [facility] Covid-19 PCR (CVDTB)on SARS-CoV-2 (COVID-19) RNA DENEEN+probe Ql (Unsp spec) Not detected Normal NOT DETECTED [facility] Comment on above: Result Comment: This test is not yet approved or cleared by the [place] FDA. When there are no FDA-approved or cleared tests available, and other criteria are met, FDA can make tests available under an emergency access mechanism called an Emergency Use Authorization (EUA). The EUA for this test is supported by the [place] of Health and Human Service's (HHS's) declaration [...] Performed By: #### P TT, PT #### [facility] [address] [place] [address] Dr. Prashant Kang Vital Signs Date Time Vital Sign Value Performing Clinician Faci lity 04-14-2024 13:52-0500 Body mass index (BMI) [Ratio] 39.69 kg/m2 Acosta Shania DO Work Phone: [facility] 04-14-2024 13:52-0500 Body weight 98.43 kg Acosta Shania DO Work Phone: [facility] 04-14-2024 13:52-0500 Diastolic blood pressure 72 mm[Hg] Acosta Shania DO Work Phone: [facility] 04-14-2024 13:52-0500 Systolic blood pressure 122 mm[Hg] Acosta Shania DO Work Phone: [facility] 03-31-2024 13:44-0500 Body mass index (BMI) [Ratio] 40.75 kg/m2 Acosta Shania DO Work Phone: [facility] 03-31-2024 13:44-0500 Body weight 101.06 kg Acosta Shania DO Work Phone: [facility] 03-31-2024 13:44-0500 Diastolic blood pressure 70 mm[Hg] Acosta Shania DO Work Phone: [facility] 03-31-2024 13:44-0500 Systolic blood pressure 120 mm[Hg] Acosta Shania DO Work Phone: [facility] 03-24-2024 13:16-0500 Body mass index (BMI) [Ratio] 40.02 kg/m2 Acosta Shania DO Work Phone: [facility] 03-24-2024 13:16-0500 Body weight 99.25 kg Acosta Shania DO Work Phone: [facility] 03-24-2024 13:16-0500 Diastolic blood pressure 70 mm[Hg] Acosta Shania DO Work Phone: [facility] 03-24-2024 13:16-0500 Systolic blood pressure 120 mm[Hg] Acosta Shania DO Work Phone: [facility] 03-10-2024 13:45-0500 Body mass index (BMI) [Ratio] 40.38 kg/m2 Acosta Shania DO Work Phone: [facility] 03-10-2024 13:45-0500 Body weight 100.15 kg Acosta Shania DO Work Phone: [facility] 03-10-2024 13:45-0500 Diastolic blood pressure 76 mm[Hg] Acosta Shania DO Work Phone: [facility] 03-10-2024 13:45-0500 Systolic blood pressure 114 mm[Hg] Acosta Shania DO Work Phone: [facility] 02-25-2024 14:08-0400 Body mass index (BMI) [Ratio] 39.87 kg/m2 Kim YAO Work Phone: [facility] 02-25-2024 14:08-0400 Body weight 98.88 kg Kim YAO Work Phone: [facility] 02-25-2024 14:08-0400 Diastolic blood pressure 70 mm[Hg] Kim YAO Work Phone: [facility] 02-25-2024 14:08-0400 Systolic blood pressure 114 mm[Hg] Kim YAO Work Phone: [facility] 02-11-2024 11:10-0400 Body mass index (BMI) [Ratio] 40.2 kg/m2 Acosta Shania DO Work Phone: [facility] 02-11-2024 11:10-0400 Body weight 99.7 kg Acosta Shania DO Work Phone: [facility] 02-11-2024 11:10-0400 Diastolic blood pressure 64 mm[Hg] Acosta Shania DO Work Phone: [facility] 02-11-2024 11:10-0400 Systolic blood pressure 112 mm[Hg] Acosta Shania DO Work Phone: [facility] 01-14-2024 13:36-0400 Body mass index (BMI) [Ratio] 39.1 kg/m2 Acosta Shania DO Work Phone: [facility] 01-14-2024 13:36-0400 Body weight 96.98 kg Acosta Shania DO Work Phone: [facility] 01-14-2024 13:36-0400 Diastolic blood pressure 60 mm[Hg] Acosta Shania DO Work Phone: [facility] 01-14-2024 13:36-0400 Systolic blood pressure 120 mm[Hg] Acosta Shania DO Work Phone: [facility] 12-17-2023 14:20-0400 Body mass index (BMI) [Ratio] 39.51 kg/m2 Acotsa Shania DO Work Phone: [facility] 12-17-2023 14:20-0400 Body weight 97.98 kg Acosta Shania DO Work Phone: [facility] 12-17-2023 14:20-0400 Diastolic blood pressure 80 mm[Hg] Acosta Shania DO Work Phone: [facility] 12-17-2023 14:20-0400 Systolic blood pressure 124 mm[Hg] Acosta Shania DO Work Phone: [facility] 06-12-2023 13:54-0500 Body mass index (BMI) [Ratio] 40.6 kg/m2 Acosta Shania DO Work Phone: [facility] 06-12-2023 13:54-0500 Body weight 100.7 kg Acosta Shania DO Work Phone: [facility] 06-12-2023 13:54-0500 Diastolic blood pressure 74 mm[Hg] Acosta Shania DO Work Phone: [facility] 06-12-2023 13:54-0500 Systolic blood pressure 118 mm[Hg] Acosta Shania DO Work Phone: [facility] 05-04-2022 09:40-0500 Body temperature 97.2 [degF] NA Jose BULLOCK Work Phone: [facility] 05-04-2022 09:40-0500 Body weight 88.81 kg JONNY Garcia MD Work Phone: [facility] 05-04-2022 09:40-0500 Diastolic blood pressure 73 mm[Hg] JONNY Garcia MD Work Phone: [facility] 05-04-2022 09:40-0500 Heart rate 67 /min JONNY Garcia MD Work Phone: [facility] 05-04-2022 09:40-0500 Respiratory rate 16 /min JONNY Garcia MD Work Phone: [facility] 05-04-2022 09:40-0500 SaO2% (BldA) [Mass fraction] 100 % JONNY Garcia MD Work Phone: [facility] 05-04-2022 09:40-0500 Systolic blood pressure 113 mm[Hg] JONNY Garcia MD Work Phone: [facility] Encounters Encounter Date Encounter Type Care Provider Facility Start: 04-19-2024 End: 04-19-2024 Clinisync Result Encounter Acosta Shania DO Work Phone: [facility] Unsolicited Start: 04-19-2024 End: 04-19-2024 Clinisync Result Encounter Acosta Shania DO Work Phone: [facility] Unsolicited Start: 04-18-2024 End: 04-18-2024 Clinisync Result Encounter Acosta Shania DO Work Phone: [facility] Unsolicited Start: 04-18-2024 End: 04-18-2024 Clinisync Result Encounter Acosta Shania DO Work Phone: [facility] Unsolicited Start: 04-14-2024 End: 04-14-2024 Bamboo flowsheet Acosta Shania DO Work Phone: [facility] Start: 04-14-2024 End: 04-14-2024 Bamboo flowsheet Acosta Shania DO Work Phone: [facility] Start: 04-14-2024 End: 04-14-2024 ambulatory [...] Start: 02-26-2024 End: 02-26-2024 Patient encounter procedure [facility] Comment on [...] Bamboo flowsheet Acosta Shania DO Work Phone: [facility] Start: 02-11-2024 End: 02-11-2024 Bamboo flowsheet Acosta Shania DO Work Phone: [facility] Start: 02-11-2024 End: 02-11-2024 Office outpatient visit 15 minutes Acosta Shania DO Work Phone: [facility] Comment on above: Third trimester preg yogesh; Thyroid disease (CMS/HCC); 29 weeks gestation of ; History of placental abruption; Non compliance w medication regimen Start: 02-11-2024 End: 02-11-2024 ambulatory ACOSTA SHANIA Not Available Start: 02-08-2024 End: 02-08-2024 Clinisync Result Encounter Acosta Shania DO Work Phone: [facility] External Department Unsolicited Start: 02-08-2024 End: 02-08-2024 Clinisync Result Encounter Acosta Shania DO Work Phone: [facility] External Department Unsolicited Start: 01-23-2024 End: 01-24-2024 Telephone encounter Arslan Garcia MD Work Phone: [facility] Comment on above: Patient Question Start: 01-14-2024 End: 01-14-2024 ambulatory ACOSTA SHANIA Not Available Start: 01-14-2024 End: 01-14-2024 Office outpatient visit 15 minutes Acosta Shania DO Work Phone: [facility] Comment on above: 25 weeks gestation o f ; Diabetes mellitus screening; First trimester Start: 01-11-2024 End: 01-11-2024 ambulatory ACOSTA R SHANIA [facility] Start: 01-02-2024 End: 01-02-2024 Clinisync [...] encounter [facility] Comment on above: Appointment Confirma tion Start: 02-08-2023 End: 02-08-2023 ambulatory SARA MEDELLIN Facility:[facility] Start: 02-01-2023 End: 02-01-2023 ambulatory SARA MEDELLIN Facility:[facility] Start: 11-09-2022 Telephone encounter [facility]slan Garcia MD [facility] Comment on above: Appointment Confirma tion Start: 09-01-[address] SARA MEDELLIN . Facili ty:[facility] Start: 08-23-2022 End: 08-23-2022 ambulatory DHRUV MCDONALD Facility:[facility] Start: 08-17-2022 End: 08-27-[address] ACOSTA JAUREGUI . Facility: Start: 08-06-2022 End: 08-06-2022 ambulatory DHRUV MCDONALD Facility: Start: 07-17-2022 Telephone encounter Arslan Garcia MD Work Phone: [facility] Comment on above: Phone Visit Start: 07-04-2022 End: 07-28-[address] ACOSTA JAUREGUI . Facility:[facility] Start: 05-08-2022 End: 05-30-[address] ACOSTA JAUREGUI . Facility: Start: 05-04-2022 End: 05-04-2022 Patient encounter procedure Arslan Garcia MD Work Phone: [facility] Comment on above: Thyroid cancer (HCC) (Primary Dx) Start: 04-25-2022 Telephone encounter Arslan Garcia MD [facility] Comment on above: Missed Appointment Start: 04-20-2022 Patient encounter procedure [facility] Provider [facility] Department Start: 04-11-2022 End: 04-11-2022 Patient encounter procedure Lab/[place] Zhao Work Phone: Rad[facility] Oncology Comment on above: Thyroid cancer (HCC) (Primary Dx) Start: 03-09-2022 Encounter for preprocedural laboratory examination DR CHARLIE EASTMAN [facility] Start: 03-07-2022 End: 03-08-[address] [...] Date Procedure Procedure Detail Performing Clinician Start: 04-19-2024 ALL CBC WITH AUTO DIFF Acosta Shania DO Work Phone: Start: 04-18-2024 TB DRUG SCREEN RAPI D (URINE) Acosta Shania DO Work Phone: Start: 03-31-2024 Urnls dip stick/tabl et rgnt [...] Adult BMI Screening Adult BMI Screen ing [facility] Start: 01-10-2025 Tobacco Screening Tobacco Screening [facility] Start: 05-12-2024 End: 05-12-2024 ambulatory 05/12/2024 1:40 PM EST Visit [facility] [address] [place] [address] Acosta Jauregui, DO [address] [place], [place] [id number] [facility] Start: 04-14-2024 End: 04-14-2024 Patient encounter procedure 04/14/2024 1:20 PM EST Routine [facility] [address] [place] [id number] Acosta Jauregui, DO [address] [place], [place] [id number] [facility] Start: 03-31-2024 End: 03-31-2025 [...] PM EST Routine [facility] [address] [facility] [place] [id number] Acosta Jauregui, DO [address] [place], [place] [id number] [facility] Start: 03-10-2024 End: 03-10-2024 Patient encounter procedure 03/10/2024 1:00 PM EST Routine [facility] [address] [facility] [place] [address] Acosta Jauregui, DO [address] [place] [address] [facility] Start: 02-25-2024 End: 02-24-2025 [...] mellitus screening Expected: 01/14/2024 (Approximate), Expires: 01/13/2025 [facility] Work Phone: Comment on above: Expected: 01/14/2024 (Approximate), Expires: 01/13/2025 Start: 01-14-2024 End: 01-14-2024 Patient encounter procedure 01/14/2024 1:20 PM EDT Routine [facility] [address] [facility] [place] [address] Acosta Jauregui DO [address] [place], [place] [id number] [facility] Start: 12-30-2023 Covid-19 Vaccine ( season) Covid-19 Vaccine ( season) [facility] Start: 12-30-2023 Influenza vaccination C [facility] Start: 08-15-2023 End: 11-14-2023 Thyroglobulin and Thyrogobulin Ab panel - Serum or Plasma THYROGLOBULIN, SERUM WITH REFLEX TO IA OR LC-MS/MS Lab Routine Thyroid cancer (HCC) Expected: 08/15/2023, Expires: 11/14/2023 [facility] Work Phone: Comment on above: Expected: 08/15/2023 , Expires: 11/14/2023 Start: 08-15-2023 End: 11-14-2023 Thyrotropin [Units/volume] in Serum or Plasma THYROID STIMULATING HORMONE Lab Routine Thyroid cancer (HCC) Expected: 08/15/2023, Expires: 11/14/2023 [facility] Work Phone: Comment on above: Expected: 08/15/2023 , Expires: 11/14/2023 Start: 08-15-2023 End: 11-14-2023 Thyroxine (T4) [Mass/volume] in Serum or Plasma T4/THYROXINE Lab Routine Thyroid cancer (HCC) Expected: 08/15/2023, Expires: 11/14/2023 [facility] Work Phone: Comment on above: Expected: 08/15/2023 , Expires: 11/14/2023 Start: 06-26-2023 End: 06-26-2023 Professional / ancillary services management 06/26/2023 1:00 PM EST Ancillary Procedure [facility] [address] [place] [address] [place] [address] [facility] Start: 06-12-2023 End: 06-12-2024 US for US PELVIS-TRANSVAG IF INDICATED Imaging Routine Amenorrhea Expected: 06/12/2023 (Approximate), Expires: 06/12/2024 [facility] Comment on above: Expected: 06/12/2023 (Approximate), Expires: 06/12/2024 Start: 04-30-2023 Behavioral Health Screening Behavioral Health Screening [facility] Start: 04-30-2023 Depression Assessment Depression Ass essment [facility] Start: 12-29-2022 Covid-19 Vaccine ( season) Covid-19 Vaccine ( season) [facility] Start: 12-29-2022 Influenza vaccination C [facility] Start: 07-02-2022 End: 09-01-2022 THYROGLOBULIN BY MASS SPECTROMETRY THYROGLOBULIN BY MASS SPECTROMETRY Lab Routine Thyroid cancer (HCC) Expected: 07/02/2022, Expires: 09/01/2022 [facility] Work Phone: Comment on above: Expected: 07/02/2022 , Expires: 09/01/2022 Start: 07-02-2022 End: 09-01-2022 Thyrotropin [Units/volume] in Serum or Plasma TSH BLD Lab Routine Thyroid cancer (HCC) Expected: 07/02/2022, Expires: 09/01/2022 [facility] Work Phone: Comment on above: Expected: 07/02/2022 , Expires: 09/01/2022 Start: 07-02-2022 End: 09-01-2022 Thyroxine (T4) [Mass/volume] in Serum or Plasma T4/THYROXINE BLOOD Lab Routine Thyroid cancer (HCC) Expected: 07/02/2022, Expires: 09/01/2022 [facility] Work Phone: Comment on above: Expected: 07/02/2022 , Expires: 09/01/2022 Start: 04-30-2022 DEPRESSION ASSESSMENT DEPRESSION ASS [facility] Start: 2022 HPV TESTING HPV TESTING [facility] Start: 2022 Screening for malign ant neoplasm of cervix HPV Testing [facility] Start: 12-29-2021 Influenza vaccination INFLUENZA (#1) [facility] Start: 04-30-2021 [facility] Start: 2013 PAP TESTING PAP TESTING [facility] Start: 2013 Screening for malign ant neoplasm of cervix [facility] Start: 2011 DTaP,Tdap and Td Vaccines (1 - Tdap) DTaP,Tdap and Td Vaccines (1 - Tdap) [facility] Start: 2011 Hepatitis B Vaccine (1 of 3 - 19+ 3-dose series) Hepatitis B Vaccine (1 of 3 - 19+ 3-dose series) [facility] Start: 2011 Urine microalbumin profile [facility] Start: 2010 Adult BMI Follow Up Plan Adult BMI Follow Up Plan [facility] Start: 2010 Anxiety Screening Anxiety Screening [facility] Start: 2010 Depression Screening Depression Scre [facility] Start: 2010 HEPATITIS C SCREENING HEPATITIS C [facility] Start: 2010 Hepatitis C screening Hepatitis C [facility] Start: 2010 HIV SCREENING HIV SCREENING [facility] Start: 2010 HIV screening HIV Screening [facility] Start: 2004 Depression Screening Depression Scre steven [facility] Start: 1998 PNEUMOCOCCAL (1 - PCV) PNEUMOCOCCAL (1 - PCV) [facility] Start: 1998 Pneumococcal vaccination [facility] Start: 1992 COVID-19 VACCINE (#1) COVID-19 VACCI NE (#1) [facility] Start: 1992 HEPATITIS B (1 of 3 - 3-dose series) HEPATITIS B (1 of 3 - 3-dose series) [facility] Start: 1992 Hepatitis B Vaccine (1 of 3 - 3-dose series) Hepatitis B Vaccine (1 of 3 - 3-dose series) [facility] Start: 1992 Tobacco Counseling Tobacco Counselin g [facility] CBC W Auto Different ial panel - Blood CBC and differential Lab Routine Amenorrhea Ordered: 06/12/2023 [facility] Comment on above: Ordered: 06/12/2023 hCG, quantitative, hCG, quantitative, Lab Routine Amenorrhea Ordered: 06/12/2023 [facility] Comment on above: Ordered: 06/12/2023 Hemoglobin A1c measurement Hemoglobin A1c Lab Routine Amenorrhea Ordered: 06/12/2023 [facility] Comment on above: Ordered: 06/12/2023 Hemoglobin A1c/Hemoglobin.total in Blood Hemoglobin A1c Lab Routine Diabetes mellitus screening Ordered: 01/14/2024 [facility] Comment on above: Ordered: 01/14/2024 Hemoglobin A1c/Hemoglobin.total in Blood Hemoglobin A1c Lab Routine Diabetes mellitus screening Ordered: 12/17/2023 [facility] [employer] Phone: Comment on above: Ordered: 12/17/2023 Prolactin Prolactin Lab Ro utine Amenorrhea Ordered: 06/12/2023 [facility] Comment on above: Ordered: 06/12/2023 Thyrotropin [Units/volume] in Serum or Plasma TSH Lab Routine Amenorrhea Ordered: 06/12/2023 [facility] [employer] Phone: Comment on above: Ordered: 06/12/2023 [facility] Payers Date Payer Category Payer Medicaid HMO [employer] [id number] 2020 Medicaid [id number] 2020 Medicaid (Managed Care) [employer] [id number] 1992 Unknown [id number] 2.840.1.906966.3.579.2. 593 1992 Unknown [id number] 2.16840.1.578324.3.579.2. 593 1992 Unknown [id number] 2.16840.1.011743.3.579.2. 593 1992 Unknown [id number] 2.16840.1.480958.3.579.2. 593 1992 Unknown [id number] 2.16840.1.469308.3.579.2. 593 1992 Unknown [id number] 2.16.840.1.419466.3.579.2. 593 1992 Unknown [id number] 2.16.840.1.414865.3.579.2. 593 1992 Unknown [id number] 2.16.840.1.859377.3.579.2. 593 1992 Unknown [id number] 2.16.840.1.797706.3.579.2. 593 1992 Unknown [id number] 2.16.840.1.193810.3.579.2. 593 1992 Unknown [id number] 2.16.840.1.275599.3.579.2. 593 1992 Unknown [id number] 2.16.840.1.391934.3.579.2. 593 1992 Unknown [id number] 2.16.840.1.278507.3.579.2. 593 1992 Unknown [id number] 2.16.840.1.051583.3.579.2. 593 1992 Unknown [id number] 2.16.840.1.959393.3.579.2. 593 1992 Unknown [id number] 2.16.840.1.850318.3.579.2. 1286 1992 Unknown [id number] 2.16.840.1.652328.3.579.2. 1286 1992 Unknown [id number] 2.16.840.1.325064.3.579.2. 1259 1992 Unknown [id number] 2.16.840.1.415416.3.579.2. 1259 1992 Unknown [id number] 2.16.840.1.724488.3.579.2. 1259 1992 Unknown [id number] 2.16.840.1.018139.3.579.2. 1259 1992 Unknown [id number] 2.16.840.1.258415.3.579.2. 9 1992 Unknown [id number] 2.16.840.1.016401.3.579.2. 9 1992 Unknown [id number] 2.16.840.1.798821.3.579.2. 9 1992 Unknown [id number] 2.16.840.1.567250.3.579.2. 9 1992 Unknown [id number] 2.16.840.1.548751.3.579.2. 9 1992 Unknown [id number] 2.16.840.1.811690.3.579.2. 9 1992 Unknown [id number] 2.16.840.1.121300.3.579.2. 9 1992 Unknown [id number] 2.16.840.1.180495.3.579.2. 1259 1959 Unknown [id number] Social History Date Type Detail Facility Start: 04-11-2022 End: 09-23-2022 Tobacco smoking status NY[facility] Smokes tobacco daily [facility] History of tobacco use Cigarette Smoker C [facility] Start: 04-11-2022 End: 09-14-2023 Cigarettes smoked current (pack per day) - Reported 1 [facility] Start: 04-11-2022 End: 09-23-2022 Tobacco use and exposure Smokeless tobacco non-user [facility] Start: 04-11-2022 End: 03-31-2024 Alcohol intake Current drinker of alcohol (finding) [facility] Start: 04-11-2022 Alcohol Comment socially [facility] Start: 1990 Sex Assigned At Not on file C [facility] Start: 05-04-2022 End: 09-14-2023 Tobacco use panel [facility] Adult Depression Screening Assessment 0 [facility] Start: 10-03-2022 Alcohol Comment caffeine intak e: 1-2 cups per day [facility] Start: 1990 Sex Assigned At Female [facility] Start: 10-04-2022 Gender identity Identifies as female gender (finding) [facility] Start: 08-06-2023 [facility] Start: 01-11-2024 Alcoholic beverage intake Ex-drinker (finding) [facility] Start: 08-26-2018 Sex Female (finding) [facility] Clinical Notes 03-07-2022 to 04-14-2024 Kerline Clement, GAMEPLAY PROGRAMMER - 04/14/2024 1:20 PM Orly Clement, GAMEPLAY PROGRAMMER - 03/31/2024 1:30 PM ESTSusan Spitler, GAMEPLAY PROGRAMMER - 03/24/2024 1:00 PM ESTSusan Spitler, GAMEPLAY PROGRAMMER - 03/10/2024 1:00 PM EST Note Date [...] nursing note reviewed. Exam conducted with a ornament stapler present. Vitals: Estimated body mass index is [...] Acosta Jauregui DO documented in this encounter [facility] 03-31-2024 History of Present illness Narrative Reason [...] Problems Diagnosis Date Noted Papillary thyroid carcinoma ([facility]/HCC) 09/23/2022 Thyroid disease (CMS/HCC) 09/23/2022 Bilateral tinnitus 10/04/2022 Asymmetric SNHL (sensorineural hearing loss) 12/13/2022 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 29 weeks gestation of 02/11/2024 Non compliance w medication regimen 02/11/2024 History of placental abruption 02/11/2024 Resolved Ambulatory Problems Diagnosis Date Noted Acid reflux 09/23/2022 Amenorrhea 09/23/2022 Lesion of palate 09/23/2022 depression ([facility]/HCC) 09/23/2022 Vaginal delivery 09/23/2022 Past Medical History: Diagnosis Date Chronic maxillary sinusitis Diarrhea Ear problems Family planning Fatigue Fibroadenoma of breast, right Foreign body sensation in throat History of miscarriage LPRD (laryngopharyngeal reflux disease) Obesity Papilloma of palate PCOS (polycystic ovarian syndrome) Thyroid cancer (CMS/HCC) Thyroid mass (CMS/HCC) 09/23/2022 Thyroid nodule ([facility]) HISTORY PAST MEDICAL HISTORY SOCIAL [...] nursing note reviewed. Exam conducted with a ornament stapler present. Vitals: Estimated body mass index is [...] Acosta Jauregui DO documented in this encounter [facility] 03-24-2024 History of Present illness Narrative Reason [...] Problems Diagnosis Date Noted Papillary thyroid carcinoma ([facility]) 09/23/2022 Thyroid disease ([facility]/HCC) 09/23/2022 Bilateral tinnitus 10/04/2022 Asymmetric SNHL (sensorineural hearing loss) 12/13/2022 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 29 weeks gestation of 02/11/2024 Non compliance w medication regimen 02/11/2024 History of placental abruption 02/11/2024 Resolved Ambulatory Problems Diagnosis Date Noted Acid reflux 09/23/2022 Amenorrhea 09/23/2022 Lesion of palate 09/23/2022 depression ([facility]) 09/23/2022 Vaginal delivery 09/23/2022 Past [...] nursing note reviewed. Exam conducted with a ornament stapler present. Vitals: Estimated body mass index is [...] Acosta Jauregui DO documented in this encounter [facility] 03-10-2024 History of Present illness [...] nursing note reviewed. Exam conducted with a ornament stapler present. Vitals: Estimated body mass index is [...] 2 weeks. Patient will continue NST/BPP at [facility] as well. Documented by Sylvia Rader LPN on behalf of: Acosta Jauregui DO documented in this encounter [facility] 02-26-2024 History of Present illness Narrative [facility] Patient visited the [facility] and received food documented in this encounter [facility] 02-25-2024 History of Present illness Narrative [...] Problems Diagnosis Date Noted Papillary thyroid carcinoma ([facility]/HCC) 09/23/2022 Thyroid disease (CMS/HCC) 09/23/2022 Bilateral tinnitus 10/04/2022 Asymmetric SNHL (sensorineural hearing loss) 12/13/2022 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 29 weeks gestation of 02/11/2024 Non compliance w medication regimen 02/11/2024 History of placental abruption 02/11/2024 Resolved Ambulatory Problems Diagnosis Date Noted Acid reflux 09/23/2022 Amenorrhea 09/23/2022 Lesion of palate 09/23/2022 depression ([facility]/HCC) 09/23/2022 Vaginal delivery 09/23/2022 Past Medical History: Diagnosis Date Chronic maxillary sinusitis Diarrhea Ear problems Family planning Fatigue Fibroadenoma of breast, right Foreign body sensation in throat History of miscarriage LPRD (laryngopharyngeal reflux disease) Obesity Papilloma of palate PCOS (polycystic ovarian syndrome) Thyroid cancer (CMS/HCC) Thyroid mass ([facility]) 09/23/2022 Thyroid nodule ([facility]) HISTORY PAST MEDICAL HISTORY SOCIAL [...] (CMS/HCC) Thyroid mass (CMS/HCC) 09/23/2022 Thyroid nodule ([facility]) Vaginal delivery 09/23/2022 Vaginal delivery Social History [...] of: MAXIMILIAN Lombardo documented in this encounter [facility] 02-11-2024 History of Present illness [...] nursing note reviewed. Exam conducted with a ornament stapler present. Vitals: Estimated body mass index is [...] Acosta Jauregui DO documented in this encounter [facility] 01-24-2024 Telephone encounter Note I notified Amanda of Dr. Garcia's response. She will call after she delivers in March 2024 to scheduled follow up. Irais Turpin RN [facility] 01-24-2024 Miscellaneous Notes I notified Amanda of Dr. Garcia's response. She will call after she delivers in March 2024 to scheduled follow up. Irais Turpin RN Amanda called stating she is currently and is being followed very closely by [facility] in [place] and her local [facility]. She states her high risk is d/t [...] RN documented in this encounter [facility] 01-23-2024 Telephone encounter Note Amanda called stating she is currently and is being followed very closely by [facility] in [place] and her local [facility]. She states her high risk is d/t [...] work? Thanks Irais Turpin RN [facility] 01-14-2024 History of Present illness Narrative Reason [...] nursing note reviewed. Exam conducted with a ornament stapler present. Vitals: Estimated body mass index is [...] Acosta Jauregui DO documented in this encounter [facility] 12-17-2023 History of Present illness Narrative Reason [...] nursing note reviewed. Exam conducted with a ornament stapler present. Vitals: Estimated body mass index is [...] after delivery. [facility]. Patient had ultrasound done today. Patient to return to clinic in 4 weeks for routine OB appointment. Patient will have Growth scans starting at 28 weeks and NST/BPP starting at 32 weeks gestation. Documented by Sylvia Rader LPN on behalf of: Acosta Jauregui DO documented in this encounter [facility] 11-13-[address] Christine office received ref and they will be calling patient to schedule appointment. Records faxed to Dr. Arteaga. Lawanda please send records to [facility] in your box Images from the original note were not included. Spoke to pt. She would like to see endocrinology in [place]. Pt's OB did adjust synthroid recently and has been monitoring labs. TREASURE- please sign pended order. PSS- please arrange visit when order is signed. KAREN Peters Tiffany Weyer, Angela, RN Previous Messages ----- Message ----- From: Arslan Garcia MD Sent: 11/02/2023 12:08 PM EDT To: Obi Dunlap; Carlos Nunez [facility] Given what sounds like patient is in first trimester and ongoing concerns of breast-feeding recommend she follow-up with endocrinology. documented in this encounter [facility] 11-13-[address] Christine office received ref and they will be calling patient to schedule appointment. [facility] 11-12-2023 Telephone encounter Note Records faxed to Dr. Arteaga. [facility] 11-12-2023 Telephone encounter Note Lawanda please send records to She facesheet in your box [facility] 11-12-2023 Telephone encounter Note Images from the original note were not included. Spoke to pt. She would like to see endocrinology in [place]. Pt's OB did adjust synthroid recently and has been monitoring labs. TREASURE- please sign pended order. PSS- please arrange visit when order is signed. KAREN Peters, Danna Mcdowell RN Previous Messages ----- Message ----- From: Arslan Garcia MD Sent: 11/02/2023 12:08 PM EDT To: Obi Dunlap; Radgermaine [facility] Nurse Pool Given what sounds like patient is in first trimester and ongoing concerns of breast-feeding recommend she follow-up with endocrinology. [facility] 10-24-2023 Note HNO ID: [id number] Author: Arslan GARCIA MD Service: ? Author Type: Physician Type: Progress Notes Filed: 11/02/2023 12:08 Note Text: Unable to reach patient. [facility] 10-24-2023 History of Present illness Narrative Unable to reach patient. documented in this encounter [facility] 08-14-2023 Miscellaneous Notes TREASURE- please [...] phone visit for tomorrow. Thank you Danna Ptits RN documented in this encounter [facility] 07-19-2023 Miscellaneous Notes Pt called to request labs sent to [facility]. Faxed to central scheduling. Edna Sal RN documented in this encounter [facility] 06-12-2023 History of Present illness [...] Acosta Jauregui DO documented in this encounter [facility] 02-14-2023 Miscellaneous Notes Images from the original note were not included. Patient is scheduled for appointments Arslan Garcia MD P Radt [facility] Nurse Wade; Obi Genao 4 months with labs. Orders have been placed in [facility]. documented in this encounter [facility] 02-08-2023 Note HNO ID: [id number] Author: Arslan Garcia MD Service: ? Author [...] Time Spent: 6 minutes Arslan Garcia MD [facility] 11-09-2022 Miscellaneous Notes Images from the original note were not included. Patient is called and scheduled. Arslan Garcia MD P Radgermaine [facility] Rad Nurse [place]; Obi Genao 8 weeks with labs, orders placed, thank you documented in this encounter [facility] 07-17-2022 Miscellaneous Notes Appointment has been changed to phone appt. Tj Funez Pt called in requesting to be switched to a phone visit tomorrow. Her kids are on spring break and a couple of them are sick. Labs have been done and resulted. PSS- please change to phone visit for tomorrow. Danna Pitts, RN documented in this encounter [facility] 05-04-2022 History of Present illness Narrative Radiation Oncology - FollowupNote PATIENT NAME: Amanda Cortez PATIENT : 1990 DIAGNOSIS: Thyroid cancer, classic papillary thyroid carcinoma, status post total thyroidectomy and right neck exploration on 03/07/2022, stage I [id number]. HPI: Patient returns after further work-up and [...] Take by mouth. OTC PRODUCT Supplement by [employer] for breast feeding levothyroxine (SYNTHROID) 112 [...] and right neck exploration on 03/07/2022, stage [id number]. Patient does have significant thyroglobulin antibody however [...] encounter. documented in this encounter [facility] 04-25-2022 Miscellaneous Notes Patient had been rescheduled. Tj Funez Images from the original note were not included. Called patient to reschedule, LMOV. MD Jessica Jenkins [facility] Nurse Pool; Tj Funez Unable to reach please reschedule documented in this encounter [facility] 12-13-2022 Nurse Note Amanda Cortez presents in office today for: Lab Draw during Office Visit . Ordering Provider: Felipe Garcia M.D. Test (s) ordered: TG Method for obtaining blood: Phlebotomy was performed, accessing right antecubital vein. Needle removed intact. Dressing secured. Patient denies discomfort, dizziness, light-headedness or weakness and left the department without assist. Danna Pitts RN documented in this encounter [facility] 03-07-2022 Note OPERATIVE NOTE OPERATION [...] the recovery room in good condition. [facility] Evaluation note Diagnosis Thyroid cancer (HCC)- Primary Malignant neoplasm of thyroid gland [facility] ([facility])- Primary Malignant neoplasm of thyroid gland [facility] Missed menses Amenorrhea Absence of menstruation documented in this encounter [facility]* Diagnosis Thyroid cancer (HCC)- Primary Malignant neoplasm of thyroid gland [facility] Diagnosis Thyroid cancer (HCC)- Primary Malignant neoplasm of thyroid gland [facility] Diagnosis Thyroid cancer (HCC)- Primary Malignant neoplasm of thyroid gland [facility] Diagnosis Third trimester state, incidental Thyroid disease (CMS/HCC) Unspecified disorder of thyroid 29 weeks gestation of History of placental abruption Non compliance w medication regimen documented in this encounter [facility]* Diagnosis Third trimester state, incidental 31 weeks gestation of Thyroid disease (CMS/HCC) Unspecified disorder of thyroid [facility] Diagnosis 24 weeks gestation of Food insecurity [facility] Third trimester state, incidental 33 weeks gestation of Thyroid disease (CMS/HCC) Unspecified disorder of thyroid documented in this encounter [facility]* Diagnosis 35 weeks gestation of Third trimester state, incidental [facility]* Diagnosis 36 weeks gestation of Third trimester state, incidental documented in this encounter [facility]* Diagnosis 25 weeks gestation of Diabetes mellitus screening Screening for diabetes mellitus First trimester state, incidental [facility]* Diagnosis Third trimester state, incidental 38 weeks gestation of documented [facility]* Diagnosis Second trimester state, incidental Diabetes mellitus screening Screening for diabetes mellitus documented in this encounter [facility] HealthcareInstructionsNot on filedocumented [facility] Purpose Family History No [...] cancer (HCC) Procedures CONSULT TO ENDOCRINOLOGY OFFICE/OUTPATIENT [facility] 60 MINUTES Arslan Garcia MD [address] [place] [address] [place] [address] Referral ID Status Reason Start Date Expiration Date Visits Requested Visits Authorized [id number] Authorized PCP Requested Referral 11/12/2023 11/11/2024 1 1 Additional Source Comments Source Comments (unrecognize d section and content) In the event this informatio n is protected by the Federal Confidentiality of Alcohol and Drug Abuse Patient Records regulations: The Federal rules restrict any use of the information to criminally investigate or prosecute any alcohol or drug abuse patient.[facility] the event this information is protected by the Federal Confidentiality of Alcohol and Drug Abuse Patient Records regulations: The Federal rules restrict any use of the information to criminally investigate or prosecute any alcohol or drug abuse patient.[facility] the event this information is protected by the Federal Confidentiality of Alcohol and Drug Abuse Patient Records regulations: The Federal rules restrict any use of the information to criminally investigate or prosecute any alcohol or drug abuse patient.[facility] the event this information is protected by the Federal Confidentiality of Alcohol and Drug Abuse Patient Records regulations: The Federal rules restrict any use of the information to criminally investigate or prosecute any alcohol or drug abuse patient.[facility] Center[facility] the event this information is protected by the Federal Confidentiality of Alcohol and Drug Abuse Patient Records regulations: The Federal rules restrict any use of the information to criminally investigate or prosecute any alcohol or drug abuse patient.[facility] Center[facility] the event this information is protected by the Federal Confidentiality of Alcohol and Drug Abuse Patient Records regulations: The Federal rules restrict any use of the information to criminally investigate or prosecute any alcohol or drug abuse patient.[facility] Center[facility] the event this information is protected by the Federal Confidentiality of Alcohol and Drug Abuse Patient Records regulations: The Federal rules restrict any use of the information to criminally investigate or prosecute any alcohol or drug abuse patient.[facility] Center[facility] the event this information is protected by the Federal Confidentiality of Alcohol and Drug Abuse Patient Records regulations: The Federal rules restrict any use of the information to criminally investigate or prosecute any alcohol or drug abuse patient.[facility] Center[facility] the event this information is protected by the Federal Confidentiality of Alcohol and Drug Abuse Patient Records regulations: The Federal rules restrict any use of the information to criminally investigate or prosecute any alcohol or drug abuse patient.[facility] Center[facility] the event this information is protected by the Federal Confidentiality of Alcohol and Drug Abuse Patient Records regulations: The Federal rules restrict any use of the information to criminally investigate or prosecute any alcohol or drug abuse patient.[facility] Center[facility] the event this information is protected by the Federal Confidentiality of Alcohol and Drug Abuse Patient Records regulations: The Federal rules restrict any use of the information to criminally investigate or prosecute any alcohol or drug abuse patient.[facility] Center[facility] the event this information is protected by the Federal Confidentiality of Alcohol and Drug Abuse Patient Records regulations: The Federal rules restrict any use of the information to criminally investigate or prosecute any alcohol or drug abuse patient.[facility] Reason for Visit (unrecogniz ed [...] Care Teams (unrecognized sec tion and content) Banquet Bartender Relationship Specialty Start Date End Date Sara Medellin MD [address] [place] [address] PCP - General Family Medicine 04/11/22 Banquet Bartender Relationship Specialty Start Date End Date Sara Medellin MD [address] [place] [id number] PCP - General Family Medicine 04/11/22 Banquet Bartender Relationship Specialty Start Date End Date Sara Medellin MD [address] [place] [id number] PCP - General Family Medicine 04/11/22 Banquet Bartender Relationship Specialty Start Date End Date Sara Medellin MD PCP - General Family Medicine 04/11/22 Banquet Bartender Relationship Specialty Start Date End Date Sara Medellin MD PCP - General Family Medicine 04/11/22 Banquet Bartender Relationship Specialty Start Date End Date Sara Medellin MD [address] [place] [address] PCP - General Family Medicine 10/03/22 Banquet Bartender Relationship Specialty Start Date End Date Sara Medellin MD PCP - General Family Medicine 04/11/22 Banquet Bartender Relationship Specialty Start Date End Date Sara Medellin MD PCP - General Family Medicine 04/11/22 Banquet Bartender Relationship Specialty Start Date End Date Sara Medellin MD PCP - General Family Medicine 04/11/22 Banquet Bartender Relationship Specialty Start Date End Date Sara Medellin MD [address] [place] [address] PCP - General Family Medicine 10/03/22 Banquet Bartender Relationship Specialty Start Date End Date Sara Medellin MD [address] [place] [address] PCP - General Family Medicine 10/03/22 Banquet Bartender Relationship Specialty Start Date End Date Sara Medellin MD [address] [place] [address] PCP - General Family Medicine 10/03/22 Banquet Bartender Relationship Specialty Start Date End Date Sara Medellin MD [address] [facility] [place] [address] PCP - General 01/10/24 Banquet Bartender Relationship Specialty Start Date End Date Sara Medellin MD [address] [place] [address] PCP - General Family Medicine 10/03/22 Banquet Bartender Relationship Specialty Start Date End Date Sara Medellin MD [address] [place] [address] PCP - General Family Medicine 10/03/22 Banquet Bartender Relationship Specialty Start Date End Date Sara Medellin MD [address] [place] [address] PCP - General Family Medicine 10/03/22 Banquet Bartender Relationship Specialty Start Date End Date Sara Medellin MD [address] [place] [address] PCP - General Family Medicine 10/03/22 Banquet Bartender Relationship Specialty Start Date End Date Sara Medellin MD [address] [place] [address] PCP - General Family Medicine 10/03/22 Banquet Bartender Relationship Specialty Start Date End Date Sara Medellin MD [address] [place] [address] PCP - General Family Medicine 10/03/22 Banquet Bartender Relationship Specialty Start Date End Date Sara Medellin MD [address] [place] [address] PCP - General Family Medicine 10/03/22 Banquet Bartender Relationship Specialty Start Date End Date Sara Medellin MD [address] [place] [address] PCP - General Family Medicine 10/03/22 INFORMATION SOURCE (unrecogn ized section and content) DATE CREATED AUTHOR 09/02/2022 [facility] DATE CREATED AUTHOR AUTHOR'S ORGANIZ ATION 01/11/2024 [facility] DATE CREATED AUTHOR AUTHOR'S ORGANIZ ATION 01/13/2024 [facility] DATE CREATED AUTHOR AUTHOR'S ORGANIZ ATION 04/16/2024 [facility] EPIC FOR RECORDS PERTAINING TO [...] ON THE PRIMARY CLINICAL RECORDS. [facility] [employer] provides no warranty or guarantee of the accuracy or completeness of information in this document.
[2024-04-26 15:01] VITALS: BP 130/81; PULSE 63; TEMP 36.7; O2SAT 98; BMI 36.6
--- NOTE | 2024-04-26 15:36 | US_ITS ---
The [address] [address] Patient Name: LITO RAMIREZ MRN: [id number] date: 1990 Sex: F Assigned Patient Location: ER Current Patient Location: ER Accession/Order Number: [id number] Exam Date: 04/26/2024 15:40 Report Date: 04/26/2024 18:13 At the request of: AAMIR XAVIER Procedure: US pelvis EXAM: US pelvis HISTORY: Retained products of conception bleeding. Recent vaginal delivery. COMPARISON: Previous pelvic ultrasounds including OB ultrasound 04/11/2024 and earlier. TECHNIQUE: Internal transvaginal pelvic ultrasound with grayscale and color Doppler imaging. FINDINGS: Thickened endometrium 26 mm with heterogeneous avascular material suggests possible blood clot or retained products. Uterus 14 x 10 x 10 cm. Neither ovary is visualized. No adnexal mass or fluid collection. US/US pelvis IMPRESSION: Thickened avascular endometrium, question blood clot or retained products. Electronically authenticated by: ZAC ESCOTO Date: 04/26/2024 18:13
--- NOTE | 2024-04-26 15:41 | CT_ITS ---
The [address] [address] Patient Name: LITO RAMIREZ MRN: [id number] date: 1990 Sex: F Assigned Patient Location: ER Current Patient Location: ER Accession/Order Number: [id number] Exam Date: 04/26/2024 16:32 Report Date: 04/26/2024 18:59 At the request of: AAMIR XAVIER Procedure: CT abdomen pelvis w con EXAM: CT abdomen pelvis w con HISTORY: Pelvic pain bilateral lower quadrant COMPARISON: Pelvic ultrasound 04/18/2024. TECHNIQUE: CT abdomen pelvis with IV contrast. Axial scans with reformatted coronal sagittal images. Individualized radiation dose reduction used for this exam. FINDINGS: Lower chest: Lung bases clear, no acute process. ABDOMEN: Liver, adrenal glands, pancreas, spleen unremarkable. Normal-appearing gallbladder, no biliary dilatation. No ascites or abdominal fluid. No adenopathy. Normal enhancement aorta and branches. Normal venous enhancement. Normal symmetric kidneys without hydronephrosis or mass, normal ureters. No bowel dilatation ileus or obstruction. Normal-appearing appendix right lower quadrant. Moderate gas and stool throughout colon. Pelvis: Enlarged uterus. Endometrial thickness 27 mm sagittal images as seen on ultrasound. Slightly heterogeneous myometrium. No significant abnormal enhancement, no gas seen in the endometrium. No pelvic mass or adenopathy or free fluid. Minimal fluid in the bladder. MUSCULOSKELETAL: No suspicious bone lesion. No hernia. No abdominal or pelvic wall fluid collection or hematoma. CT/CT abdomen pelvis w con IMPRESSION: 1. Thickened endometrium as seen on ultrasound without definite abnormal enhancement or gas. Slightly heterogeneous uterus. 2. No abdominal or pelvic fluid collection or hematoma. Electronically authenticated by: ZAC ESCOTO Date: 04/26/2024 18:59
--- NOTE | 2024-04-26 15:45 | ED_ITS ---
HPI HPI - General Adult General Chief complaint: Abdominal Pain Stated complaint: ABDOMINAL PAIN Time Seen by Provider: 04/26/24 15:27 Source: patient Mode of arrival: Wheelchair History of Present Illness HPI narrative: Patient is a 34-year-old female who is presenting to the ER with chief complaint of urinary incontinence since delivery. Patient started having abdominal pain I April 21. Patient had a vaginal delivery on April 18. Patient started becoming incontinent of urine on April 19. Patient did call the nurse and Dr. Jauregui office yesterday. Patient was told his symptoms are worsening, she may go to the ER. Patient has been having urinary incontinence daily since the . Patient is having intermittent right and left lower quadrant abdominal pain. Patient has no fever or chills. No nausea or vomiting. Patient mother and infant are at bedside. Patient has been taking ibuprofen intermittently which has been helping with abdominal pain. Patient states that she is not having any more vaginal bleeding or clots, the only time she notices clots is when she is urinating. Patient has no other acute complaints. All systems are negative except as noted/marked. All systems reviewed and otherwise negative. Nurses note and vital signs reviewed and patient is not hypoxic. General: The patient appears well and in no apparent distress. Patient is resting comfortably on cart. Patient is not toxic, lethargic, or listless. Patient has poor hygiene, smells of body odor and urine Skin: Warm, dry, no pallor noted. There is no rash noted. No petechiae, purpura. Head: Normocephalic, atraumatic Eye: Normal conjunctiva, no drainage, EOMI. PERRL Ears, Nose, Mouth, and Throat: oral mucosa is moist. Nares patent. Mouth without vesicles. Cardiovascular: Regular Rate and Rhythm, no murmur, gallop, rub Respiratory: Patient is in no distress, no accessory muscle use, lungs are clear to auscultation, no wheezing, rales or rhonchi Back: non-tender, no CVA tenderness bilaterally to percussion. No CT LS midline pain GI: Obese, minimal right and left lower quadrant tenderness palpation, mild rebound to left lower quadrant, no suprapubic tenderness to palpation, no bilate ral upper quadrant or midepigastric tenderness palpation, no flank pain bilateral, no peritoneal signs, otherwise no tenderness to palpation, no masses appreciated. No rebound, guarding, or rigidity noted. No distention Musculoskeletal: Patient has full range of motion of all of the extremities, no motor, sensory, or focal neurological deficits Neurological: A&O x4, normal speech Psychiatric: Cooperative Related Data Home Medications ?Medication ?Instructions ?Recorded ?Confirmed aspirin 81 mg tablet,delayed mg 11/28/23 release citalopram 20 mg tablet mg 11/28/23 levothyroxine 200 mcg tablet mcg 11/28/23 omeprazole 40 mg capsule,delayed mg 11/28/23 release vitamin with calcium tab 11/28/23 no.72-iron 27 mg-folic acid 1 mg tablet ( Vitamins Plus Low Iron) Allergies Allergy/AdvReac Type Severity Reaction Status Date / Time cefaclor (From [facility]) Allergy Severe Anaphylaxis Verified 11/28/23 21:43 Penicillins Allergy Severe Anaphylaxis Verified 11/28/23 21:43 Opioid HPI Opioid Management Most Recent Opioid Data: Last Pain Scale 5 04/19/24 04:38 04/19/24 Ur Phencyclidine Scrn Negative (NEGATIVE) 04/18/24 00:00 03/31 PFSH PFS Social History Smoking status: Current every day smoker Little interest or pleasure in doing things: not at all Feeling down, depressed, or hopeless: not at all Exam Constitutional Vital Signs, click to edit/add: Last Vital Signs Temp 98.0 F 04/26/24 15:01 Pulse 63 04/26/24 15:01 Resp 16 04/26/24 15:01 BP 130/81 04/26/24 15:01 Pulse Ox 98 04/26/24 15:01 O2 Del Method Room Air 04/26/24 15:01 Course Vital Signs Vital signs: Vital Signs Temperature 98.0 F 04/26/24 15:01 Pulse Rate 63 04/26/24 15:01 Respiratory Rate 16 04/26/24 15:01 Blood Pressure 130/81 04/26/24 15:01 Pulse Oximetry 98 04/26/24 15:01 Oxygen Delivery Method Room Air 04/26/24 15:01 Temperature 98.0 F 04/26/24 15:01 Pulse Rate 63 04/26/24 15:01 Respiratory Rate 16 04/26/24 15:01 Blood Pressure 130/81 04/26/24 15:01 Pulse Oximetry 98 04/26/24 15:01 Oxygen Delivery Method Room Air 04/26/24 15:01 Medical Decision Making MDM Narrative Medical decision making narrative: Patient will have IV, lab work, CAT scan and ultrasound. Patient's lab work shows no significant findings. 183 I did discuss patient's ultrasound report with Dr. Hampton. Patient is a vaginal delivery. Patient has no vaginal bleeding of any significance. Patient CT report shows no other acute findings. Patient can follow-up in the office. Patient is aware of this. Patient was agitated at the end of her ER stay and discharged because patient stated that she knew this would happen and we would find no acute answers, but patient came to the ER because her wanted her to. Patient understands a follow-up with Dr. Jauregui. Patient is having normal bowel movements, normal soft stool. Patient is aware to drink over 12-8 ounces bottles of water a day to help with hydration and since she is breast-feeding. Patient will continue [id number] medication to help with pain or discomfort if needed. No questions at discharge. Patient understands that the urinary incontinence could last for more weeks and will follow-up with Dr. Jauregui in the office. Lab Data Labs: Lab Results 04/26/24 04/26/24 Range/Units 13:35 15:53 WBC 10.0 (4.0-11.0) 10^3/uL RBC 4.43 (4.20-5.40) 10^6/uL Hgb 12.8 (12.0-16.0) g/dL Hct 39.1 (36.0-48.0) % MCV 88.3 (81.0-99.0) fL MCH 28.9 (26.7-34.0) pg MCHC 32.7 (29.9-35.2) g/dL RDW 12.9 (11.0-15.0) % Plt Count 360 (150-450) 10^3/uL MPV 9.3 L (9.5-13.5) fL Neut % (Auto) 62.4 (43.0-75.0) % Lymph % (Auto) 28.8 (20.5-60.0) % [place] % (Auto) 5.5 (1.7-12.0) % Eos % (Auto) 2.4 (0.9-7.0) % Baso % (Auto) 0.4 (0.2-2.0) % Neut # (Auto) 6.2 (1.4-6.5) 10^3/uL Lymph # (Auto) 2.9 (1.2-3.8) 10^3/uL [place] # (Auto) 0.6 (0.3-0.8) 10^3/uL Eos # (Auto) 0.2 (0.0-0.7) 10^3/uL Baso # (Auto) 0.0 (0.0-0.1) 10^3/uL Abs Immat Gran (auto) 0.05 H (0.00-0.03) 10^3/uL Imm/Tot Granulo (auto) 0.5 (0.0-0.5) % Sodium 140 (136-145) mmol/L Potassium 4.1 (3.5-5.1) mmol/L Chloride 106 (98-107) mmol/L Carbon Dioxide 27.0 (21.0-32.0) mmol/L Anion Gap 11.1 BUN 7.0 (7.0-18.0) mg/dL Creatinine 0.87 (0.55-1.02) mg/dL Est GFR ( Amer) >60 (>=60 mL/min/1.73m^2) Est GFR (Non-Af Amer) >60 (>=60 mL/min/1.73m^2) BUN/Creatinine Ratio 8.0 Glucose 93 (74-106) mg/dL Lactate 1.0 (0.4-2.0) mmol/L Calcium 8.9 (8.5-10.1) mg/dL Total Bilirubin 0.2 (0.2-1.0) mg/dL AST 23 (15-37) U/L ALT 35 (14-59) U/L Alkaline Phosphatase 119 H (46-116) U/L Total Protein 7.1 (6.4-8.2) g/dL Albumin 2.9 L (3.4-5.0) g/dL Globulin 4.2 g/dL Albumin/Globulin Ratio 0.7 Lipase 60.0 (16.0-77.0) U/L Urine Color Lt. yellow (YELLOW) Urine Clarity Sl cloudy (CLEAR) Urine pH 6.5 (5.0-9.0) Ur Specific [place] 1.010 (1.005-1.025) Urine Protein Negative (NEG/TRACE) mg/dL Urine Glucose (UA) Negative (NEGATIVE) mg/dL Urine Ketones Negative (NEGATIVE) mg/dL Urine Occult Blood Large A (NEGATIVE) Urine Nitrite Negative (NEGATIVE) Urine Bilirubin Negative (NEGATIVE) Urine Urobilinogen 0.2 (0.2-1.0) EU/dL Ur Leukocyte Esterase Moderate A (NEGATIVE) Urine RBC 10-20 A (0-2) #/HPF Urine WBC 5-10 A (NONE SEEN) #/HPF Ur Squamous Epith Cells Rare (NONE/RARE) #/LPF Ur Transition Epith Cell Few A (NONE SEEN) #/LPF Urine Crystals None seen (None Seen) #/HPF Urine Bacteria Small A (NONE SEEN) #/HPF Urine Casts None seen (NONE SEEN) #/LPF Urine Mucus None seen (NONE SEEN) Ur Culture Indicated? Yes Discharge Plan Discharge Chief Complaint: Abdominal Pain Clinical Impression: Urinary incontinence, Abdominal pain Patient Disposition: Home, Self-Care Condition: Fair Prescriptions / Home Meds: No Action omeprazole 40 mg capsule,delayed release(DR/EC) aspirin 81 mg tablet,delayed release (DR/EC) citalopram 20 mg tablet levothyroxine 200 mcg tablet Vitamin Plus Low Iron 27 mg iron- 1 mg tablet Print Language: Polish Instructions: Urinary Incontinence (ED), [employer] (DC), Abdominal Pain (ED) Additional Instructions: Follow-up with Dr. Jauregui for further evaluation. Your reports of ultrasound, lab work have been discussed with Dr. Hampton. A copy of your CAT scan report and ultrasound report have been given to you. You have no acute concerns for retained products of conception, your ultrasound report is normal per Dr. Hampton. If you are having any other significant acute bleeding or any other acute concerns, return back to the ER. Referrals: Enmanuel Medellin MD [Primary Care Provider] - 1 week
[2024-04-26 15:53] LABS: Basophils Percent Auto 0.4 % (0.2-2.0); Eosinophils Absolute Auto 0.2 10^3/uL (0.0-0.7); Eosinophils Percent Auto 2.4 % (0.9-7.0); Hematocrit 39.1 % (36.0-48.0); Hemoglobin 12.8 g/dL (12.0-16.0); Immature Granulocytes Abs Auto 0.05 10^3/uL (0.00-0.03); Immature Granulocytes Pct Auto 0.5 % (0.0-0.5); Lymphocytes Absolute Auto 2.9 10^3/uL (1.2-3.8); Lymphocytes Percent Auto 28.8 % (20.5-60.0); Mean Corpuscular HGB Conc 32.7 g/dL (29.9-35.2); Mean Corpuscular Hemoglobin 28.9 pg (26.7-34.0); Mean Corpuscular Volume 88.3 fL (81.0-99.0); Mean Platelet Volume 9.3 fL (9.5-13.5); Monocytes Absolute Auto 0.6 10^3/uL (0.3-0.8); Monocytes Percent Auto 5.5 % (1.7-12.0); Neutrophils Absolute Auto 6.2 10^3/uL (1.4-6.5); Neutrophils Percent Auto 62.4 % (43.0-75.0); Platelet Count 360 10^3/uL (150-450); Red Blood Count 4.43 10^6/uL (4.20-5.40); Red Cell Distribution Width 12.9 % (11.0-15.0)
[2024-04-26 16:23] LABS: Bilirubin Urine NEGATIVE (NEGATIVE); Blood Urine LARGE (NEGATIVE); Clarity Urine SL CLOUDY (CLEAR); Color Urine LT. YELLOW (YELLOW); Glucose Urine UA NEGATIVE (NEGATIVE); Ketones Urine NEGATIVE (NEGATIVE); Leukocyte Esterase Urine MODERATE (NEGATIVE); Nitrite Urine NEGATIVE (NEGATIVE); Protein Urine NEGATIVE (NEG/TRACE); Urobilinogen Urine 0.2 EU/dL (0.2-1.0); pH Urine 6.5 (5.0-9.0)
[2024-04-26 16:26] LABS: Alanine Aminotransferase 35 U/L (14-59); Albumin Globulin Ratio 0.7; Albumin Level 2.9 g/dL (3.4-5.0); Alkaline Phosphatase 119 U/L (46-116); Anion Gap 11.1; Aspartate Amino Transferase 23 U/L (15-37); Bilirubin Total 0.2 mg/dL (0.2-1.0); Calcium 8.9 mg/dL (8.5-10.1); Chloride 106 mmol/L (98-107); Estimated GFR (African America >60 (>=60 mL/min/1.73m^2); Estimated GFR (Non-African Ame >60 (>=60 mL/min/1.73m^2); Globulin 4.2 g/dL; Glucose 93 mg/dL (74-106); Potassium 4.1 mmol/L (3.5-5.1); Sodium 140 mmol/L (136-145); Total Protein 7.1 g/dL (6.4-8.2)
[2024-04-26 16:33] LABS: Bacteria Urine SMALL #/HPF (NONE SEEN)
[2024-04-26 16:34] LABS: Cast Seen? NONE SEEN #/LPF (NONE SEEN); Crystals Seen? None Seen #/HPF (None Seen); Mucus Urine NONE SEEN (NONE SEEN); Squamous Epithelial Cell Urine RARE #/LPF (NONE/RARE); Transitional Epi Cells Urine FEW #/LPF (NONE SEEN); Urine Culture Indicated YES
[2024-04-29 09:40] LABS: BOX Test Reference Lab FIRELANDS
== END 2024-04-26 19:30 | disposition home or self-care (01) ==
PROVIDERS: Emergency Provider Emergency Medicine; PCP Family Medicine
DX: O90.89 Other complications of the puerperium, not elsewhere classified (principal); R10.32 Left lower quadrant pain; R10.31 Right lower quadrant pain; R32 Unspecified urinary incontinence; O99.335 Smoking (tobacco) complicating the puerperium; F17.200 Nicotine dependence, unspecified, uncomplicated
CPT/HCPCS: 36415; 74177; 76856; 80053; 81001; 83605; 83690; 85025; 87086; 99285; Q9967

== ENCOUNTER 2024-05-19 08:53 | Outpatient (OUT) | payer OTHER, SELFPAY ==
--- OUTSIDE RECORDS SUMMARY | 2024-05-19 09:02 | XMS_ITS | CCD ---
Author Organization [facility] Care Team Providers Care Publications Manager Name Role Phone Sara Medellin MD Primary Care Provider [phone] RAIZA, DR GUERRA Consulting Unavailable HOY ., DR RUIZ Primary Care Unavailable TIMMIS, DR GUERRA Attending Unavailable TIMMIS, DR GUERRA Admitting Unavailable JERMAN, DR GAIL Serrato Consulting Unavailable STOLL, DR GIAL Serrato Attending Unavailable JERMAN, DR GAIL Serrato Admitting Unavailable HOY ., DR RUIZ Primary Care Unavailable MIKE BARNETT Consulting Unavailable SHANIA ., DR FARLEY Consulting Unavailable HOY ., DR RUIZ Primary Care Unavailable SHANIA ., DR FARLEY Attending Unavailable SHANIA ., DR FARLEY Admitting Unavailable KIMBERLY ., CLARI Consulting Unavailable KIMBELRY ., CLARI Attending Unavailable KIMBERLY ., CLARI [...] Primary Care Unavailable HARRY, DHRUV Consulting Unavailable AHRRY, DHRUV Attending Unavailable HARRY, DHRUV Admitting Unavailable HOY ., DR RUIZ Primary Care Unavailable aSra Medellin MD Primary Care Provider [phone] Sara Medellin MD Primary Care Provider [phone] Sara Medellin MD Primary Care Provider [phone] SARA MEDELLIN Primary Care Unavailable Arslan GARCIA Attending Unavailable SARA MEDELLIN Primary Care Unavailable Arslan GARCIA Attending Unavailable SARA MEDELLIN Primary Care Unavailable YFN MICHELLE Attending Unavailable SHANIA, ACOSTA R Referring Unavailable SARA MEDELLIN Primary Care Unavailable SHANIA, ACOSTA R Referring Unavailable SARA MEDELLIN Primary Care Unavailable Sara Medellin MD Primary Care Provider [phone] Sara Medellin Primary Care Unavailable Pay, Misha Attending Unavailable Pay, Misha Admitting Unavailable SHANIA, ACOSTA Attending Unavailable SHANIA, ACOSTA [...] 04-11-20 22 Hives, Shortness of Breath, Anaphylaxis [facility] (13 sources) Penicillins; Translations: [PENICILLINS] Drug Allergy 04-11-20 22 Hives, Shortness of Breath [facility] (2 sources) Cefaclor Drug Allergy 05-10-19 14 [facility] (2 sources) Penicillins Drug allergy (disorder) 05-10-19 14 [facility] (20 sources) Penicillin G sodium; Translations: [PENICILLIN G SODIUM] Allergy to substance 09-24-19 23 Anaphylaxis [facility] (20 sources) Cephalosporins (Antibiotic); Translations: [CEPHALOSPORINS] Propensity to adverse reactions to drug (disorder) 12-17-19 24 Anaphylaxis [facility] (20 sources) Penicillin; Translations: [...] total) and swallow in the morning. Active benzocaine 0.075 mg/mg oral gel (9 sources) Standardized Chemical Allergen benzocaine (Baby Orajel) [...] on above: Take 1 capsule by mo [facility] once daily. norethindrone 0.35 [...] Drug Class(es) Dates Sig (Normalized) Sig (Original) azithromycin 250 mg oral tablet (13 sources) Macrolide Antimicrobial Start: 04-10-2024 End: 05-12-2024 azithromycin (Zithromax Z-Jacobo) 250 MG tablet Indications: Sinusitis, unspecified chronicity, unspecified location As directed 6 tablet 04/10/2024 05/12/2024 Discontinued Start: 02-26-2024 End: 03-24-2024 azithromycin (Zithromax Z-Pa k) 250 MG tablet Indications: Sinusitis, unspecified chronicity, unspecified location As directed 6 tablet 02/26/2024 03/24/2024 Discontinued hyoscyamine sulfate 0.125 mg sublingual tablet (6 [...] 08-07-2022 Episodic Other aftercare (1 source) Other terminologist (current) drug therapy; Translations: [OTH CREDIT AND COLLECTIONS ANALYST CURRENT DRUG THERAPY] Onset: 08-24-2022 Episodic Other [...] ] Onset: 01-11-2024 Episodic Residual codes; unclassified (2 sources) Gestation [...] OTH NONSPECIFIC SKIN ERUPTION] Onset: 02-06-2022 Episodic Residual codes; unclassified (20 sources) Gestation [...] w medication regimen] Onset: 02-11-2024 02-11-2024 Episodic Thyroid disorders (20 sources) Disorder of thyroid, unspecified; Translations: [Mass of thyroid gland] Onset: 02-26-2022 Resolved: 09-23-2022 09-23-2022 Episodic Unclassified (1 source) CONTACT W/AND (SUSP) EXPOS COVID-19; Translations: [CONTACT W/AND (SUSP) EXPOS COVID-19] Onset: 01-04-2022 Results Test Name Value Interpretation Reference Range Facility Urine Cultureon 04-26-2024 Bacteria identified Cx Nom (U) 50,000 colonies/ml mixed bacterial skin contaminants 2 Days PERFORMED BY: [place] [address] PATHOLOGIST GRIPPER MACHINE OPERATOR SAMANTHA Walker [facility] Comment on above: Performed By: #### C UU #### [address] ALL CBC WITH AUTO DIFFon BASOPHILS ABSOLUTE AUTO 0 [facility] Basophils/100 WBC (Bld) 0.3 % 0.2 - 2.0 % [facility] Eosinophils/100 WBC (Bld) 1.7 % 0.9 - 7.0 % [facility] Erythrocyte distribution width (RBC) [Ratio] 13.3 % 11.0 - 15.0 % [facility] Hematocrit (Bld) [Volume fraction] 32.7 % Low 36.0 - 48.0 % [facility] Hemoglobin (Bld) [Mass/Vol] 10.5 g/dL Low 12.0 - 16.0 g/dL [facility] IMMATURE GRANULOCYTES ABS AUTO 0.06 High [facility] Immature granulocytes/100 WBC (Bld) 0.4 % 0.0 - 0.5 % [facility] Interpretation and review of laboratory results Abnormal [facility] LYMPHOCYTES ABSOLUTE AUTO 3 [facility] Lymphocytes/100 WBC (Bld) 20.1 % Low 20.5 - 60.0 % [facility] MCH (RBC) [Entitic mass] 29.2 pg 26.7 - 34.0 pg [facility] MCHC (RBC) [Mass/Vol] 32.1 g/dL 29.9 - 35.2 g/dL [facility] MCV (RBC) [Entitic vol] 90.8 fL 81.0 - 99.0 fL [facility] MONOCYTES ABSOLUTE AUTO 0.7 [facility] Monocytes/100 WBC (Bld) 4.8 % 1.7 - 12.0 % [facility] NEUTROPHILS ABSOLUTE AUTO 11 High [facility] Neutrophils/100 WBC (Bld) 72.7 % 43.0 - 75.0 % [facility] Platelet mean volume (Bld) [Entitic vol] 10.1 fL 9.5 - 13.5 fL [facility] EO # 0.3 [facility] TB PLT 262 [facility] RBC 3.6 Low [facility] WBC 15.1 High [facility] DRUG SCREEN RAPID (URINE )on 04-18-2024 AMPHETAMINE SCREEN URINE Negative NEGATIVE [facility] BARBITURATES SCREEN URINE Negative NEGATIVE [facility] BENZODIAZEPINES SCREEN URINE Negative NEGATIVE [facility] BUPRENORPHINE SCREEN URINE Negative NEGATIVE [facility] Comment on above: DRUG CLASS TEST SYST [...] 300 ng/mL CANNABINOID SCREEN URINE Negative NEGATIVE [facility] COCAINE SCREEN URINE Negative NEGATIVE [facility] METHADONE SCREEN URINE Negative NEGATIVE [facility] METHAMPHETAMINES SCREEN URINE Negative NEGATIVE [facility] OPIATE SCREEN URINE Negative NEGATIVE [facility] OXYCODONE SCREEN URINE Negative NEGATIVE [facility] PHENCYCLIDINE SCREEN URINE Negative NEGATIVE [facility] TRICYCLIC ANTIDEPRESSANT URINE Negative NEGATIVE [facility] Urinalysis macro (dipstick) panel (U)on 03-31-2024 Bilirubin, UA Negative Negative - 4(70) +++ mg/dL [facility] Blood, UA Negative Negative - 50 Maury/mcL [facility] Clarity, UA Clear [facility] Color, UA Yellow [facility] Glucose, UA Negative Negative - 1999(110) ++++ mg/dL [facility] Interpretation and review of laboratory results Abnormal [facility] Ketones, UA Negative Negative - 160(16) ++++ mg/dL [facility] Leukocytes, UA Positive Negative - 500+++ Fan/mcL [facility] Nitrite, UA Negative Negative - Positive [facility] pH, UA 7 5 - 9 [facility] Protein, UA Trace Negative - 1999(20) ++++ mg/dL [facility] Spec Grav, UA 1.025 1 - 1.03 [facility] Urobilinogen, UA 1.0 0.2 - 12 mg/dL [facility] Urinalysis macro (dipstick) panel (U)on 03-24-2024 Bilirubin, UA Positive Negative - 4(70) +++ mg/dL [facility] Comment on above: moderate Blood, UA Negative Negative - 50 Maury/mcL [facility] Clarity, UA Clear [facility] Color, UA Amanda [facility] Glucose, UA Positive Negative - 1999(110) ++++ mg/dL [facility] Comment on above: 100 Interpretation and review of laboratory results Abnormal [facility] Ketones, UA Positive Negative - 160(16) ++++ mg/dL [facility] Comment on above: 15 Leukocytes, UA Negative Negative - 500+++ Fan/mcL [facility] Nitrite, UA Negative Negative - Positive [facility] pH, UA 6.5 5 - 9 [facility] Protein, UA Positive Negative - 1999(20) ++++ mg/dL [facility] Comment on above: 100 Spec Grav, UA 1.025 1 - 1.03 [facility] Urobilinogen, UA 2.0 0.2 - 12 mg/dL [facility] Referral to Food C linicon 02-26-2024 [facility] Urinalysis macro (dipstick) panel (U)on 02-11-2024 Bilirubin, UA Negative Negative - 4(70) +++ mg/dL [facility] Blood, UA Negative Negative - 50 Maury/mcL [facility] Clarity, UA Clear [facility] Color, UA Yellow [facility] Glucose, UA Negative Negative - 1999(110) ++++ mg/dL [facility] Interpretation and review of laboratory results Abnormal [facility] Ketones, UA Negative Negative - 160(16) ++++ mg/dL [facility] Leukocytes, UA Positive Negative - 500+++ Fan/mcL [facility] Nitrite, UA Negative Negative - Positive [facility] pH, UA 7 5 - 9 [facility] Protein, UA Positive Negative - 2000(20) ++++ mg/dL [facility] Spec Grav, UA 1.02 1 - 1.03 [facility] Urobilinogen, UA 1.0 0.2 - 12 mg/dL [facility] ALL THYROID STIM HORMONEon 1 Interpretation and review of laboratory results Abnormal [facility] TSH Qn 28.537 m[IU]/L High [facility] Urinalysis macro (dipstick) panel (U)on 01-14-2024 Bilirubin, UA Positive Negative - 4(70) +++ mg/dL [facility] Blood, UA Negative Negative - 50 Maury/mcL [facility] Clarity, UA Clear [facility] Color, UA Yellow [facility] Glucose, UA Negative Negative - 1999(110) ++++ mg/dL [facility] Interpretation and review of laboratory results Abnormal [facility] Ketones, UA Positive Negative - 160(16) ++++ mg/dL [facility] Comment on above: small Leukocytes, UA Positive Negative - 500+++ Fan/mcL [facility] Comment on above: small Nitrite, UA Negative Negative - Positive [facility] pH, UA 6.5 5 - 9 [facility] Protein, UA Negative Negative - 1999(20) ++++ mg/dL [facility] Spec Grav, UA 1.020 1 - 1.03 [facility] Urobilinogen, UA 1.0 0.2 - 12 mg/dL [facility] ALL CBC WITH AUTO DIFFon BASOPHILS ABSOLUTE AUTO 0.0 [facility] Basophils/100 WBC (Bld) 0.3 % 0.2 - 2.0 % [facility] Eosinophils/100 WBC (Bld) 2.4 % 0.9 - 7.0 % [facility] Erythrocyte distribution width (RBC) [Ratio] 13.6 % 11.0 - 15.0 % [facility] Hematocrit (Bld) [Volume fraction] 35.0 % Low 36.0 - 48.0 % [facility] Hemoglobin (Bld) [Mass/Vol] 11.8 g/dL Low 12.0 - 16.0 g/dL [facility] IMMATURE GRANULOCYTES ABS AUTO 0.02 [facility] Immature granulocytes/100 WBC (Bld) 0.2 % 0.0 - 0.5 % [facility] Interpretation and review of laboratory results Abnormal [facility] LYMPHOCYTES ABSOLUTE AUTO 2.1 [facility] Lymphocytes/100 WBC (Bld) 23.6 % 20.5 - 60.0 % [facility] MCH (RBC) [Entitic mass] 30.1 pg 26.7 - 34.0 pg [facility] MCHC (RBC) [Mass/Vol] 33.7 g/dL 29.9 - 35.2 g/dL [facility] MCV (RBC) [Entitic vol] 89.3 fL 81.0 - 99.0 fL [facility] MONOCYTES ABSOLUTE AUTO 0.4 [facility] Monocytes/100 WBC (Bld) 3.9 % 1.7 - 12.0 % [facility] NEUTROPHILS ABSOLUTE AUTO 6.2 [facility] Neutrophils/100 WBC (Bld) 69.6 % 43.0 - 75.0 % [facility] Platelet mean volume (Bld) [Entitic vol] 9.8 fL 9.5 - 13.5 fL [facility]H EO # 0.2 [facility] PLT 224 [facility] RBC 3.92 Low [facility] WBC 8.9 [facility] Urinalysis macro (dipstick) panel (U)Ordered By: Kerline Clement on 12-19-2023 Bilirubin, UA Negative Negative - 4(70) +++ mg/dL [facility] Blood, UA Negative Negative - 50 Maury/mcL [facility] Clarity, UA Clear [facility] Color, UA Yellow [facility] Glucose, UA Negative Negative - 1999(110) ++++ mg/dL [facility] Interpretation and review of laboratory results Abnormal [facility] Ketones, UA Negative Negative - 160(16) ++++ mg/dL [facility] Leukocytes, UA Moderate Negative - 500+++ Fan/mcL [facility] Nitrite, UA Negative Negative - Positive [facility] Protein, UA Negative Negative - 2000(20) ++++ mg/dL [facility] Spec Grav, UA 0.010 1 - 1.03 [facility] Urobilinogen, UA 1.0 0.2 - 12 mg/dL [facility] Cytology Cervical or vaginal smear or scraping studyon 11-13-2023 [facility] CNPMaru 11-12-2023 CNPN Telephone (RADTSA) AMANDA CORTEZ ([id number]) 1990 F Date Time Provider Department 11/12/23 Arslan GARCIA During your visit today, we recorded the following information about you: Danna Pitts RN 11/12/2023 11:25 AM Signed Spoke to pt. She would like to see endocrinology in [place]. Pt's OB did adjust synthroid recently and has been monitoring labs. TREASURE- please sign pended order. PSS- please arrange visit when order is signed. KAREN Peters, Danna Mcdowell RN Previous Messages ----- Message ----- From: Arslan Garcia MD Sent: 11/02/2023 12:08 PM EDT To: Obi Dunlap; Carlos Nunez [facility] Jarratt Given what sounds like patient is in [...] [C73] Order(s):CONSULT TO ENDOCRINOLOGY [9007] Order #: [id number]: 1 FUTURE Prescriptions as of 01/09/2024 - [...] Encounter Status:Closed by DANNA PITTS on 11/13/23 [facility] Emelina 07-19-2023 CNPN Telephone (HEMASA) AMANDA CORTEZ ([id number]) 1990 F Date Time Provider Department 07/19/23 EDNA SAL During your visit today, we recorded the following information about you: Edna Sal RN 07/19/2023 10:42 AM Signed Pt called to request labs sent to [facility]. Faxed to central scheduling. Edna Sal [...] Encounter Status:Closed by EDNA SAL on 07/19/23 [facility] 06-25-2023 CNPN Telephone (RADMORGANA) AMANDA CORTEZ ([id number]) 1990 F Date Time Provider Department 06/25/23 [...] to schedule appts. Left message for her. Erlin DunlapObi 08/23/2023 8:29 AM Signed Patients lab orders were sent to [facility] and I scheduled her a phone [...] (HCC) [C73] Order(s):T4/THYROXIN E [SQT4] Order #: [id number] FUTURE THYROID STIMULATING HORMONE [SQTSH] Order #: [id number] FUTURE THYROGLOBULIN, SERUM WITH REFLEX TO IA OR LC-MS/MS [SQTHYRORF] Order #: [id number] FUTURE Prescriptions as of 08/23/2023 - levothyroxine [...] Date: 06/25/2023 (None) Encounter Status:Closed by Arsl[facility] GRAC[facility]AP[facility] AMANDA CORTEZ ([id number]) 1990 F Date Time Provider Department 02/14/23 Arslan GARCIA During your visit today, we recorded the following information about you: Obi Genao 02/14/2023 9:54 AM Signed Patient is scheduled for appointments Arslan Garcia MD [facility] Nurse Jarratt; Obi Genao 4 months with labs. Orders have been placed in [employer]. Allergies As of Date: 02/14/2023 Noted Allergy Reaction CECLOR (CEFACLOR) 04/11/2022 4 - Hives 12 - Shortness of Breath PENICILLINS 04/11/2022 4 - Hives 12 - Shortness of Breath Date Reviewed: 05/04/2022 Reviewed by: eJrman Daisy - Fully Assessed Reason for Visit: Appointment Confirmation [5460] Prescriptions as of 02/14/2023 - levothyroxine (SYNTHROID) [...] Status:Closed by OBI GENAO on 02/14/[address] [facility] CBC W Auto Differential pane l (Bld)on 02-01-2023 Basophils (Bld) [#/Vol] 0.04 10*3/uL Normal <0.11 [facility] Comment on above: Order Comment: Speci men Type: BLOOD SPECIMEN Ordering Facility: [facility] Address: [address] [place] [address] Performed By: #### 5 7021-8 #### [facility] CLIA [id number] [address] [place] [address] 08778 Basophils/100 WBC (Bld) 0.5 % Normal [facility] Comment on above: Order Comment: Speci men Type: BLOOD SPECIMEN Ordering Facility: [facility] Address: [address] [place] [address] Performed By: #### 5 7021-8 #### [facility] CLIA [id number] [address] [place] [address] 93470 Differential cell count method Nom (Bld) Auto Normal [facility] Comment on above: Order Comment: Speci men Type: BLOOD SPECIMEN Ordering Facility: [facility] Address: [address] [place] [address] Performed By: #### 5 7021-8 #### [facility] CLIA [id number] [address] [place] [address] 24625 Eosinophils (Bld) [#/Vol] 0.19 10*3/uL Normal <0.46 [facility] Comment on above: Order Comment: Speci men Type: BLOOD SPECIMEN Ordering Facility: [facility] Address: [address] [place] [address] Performed By: #### 5 7021-8 #### [facility] CLIA [id number] [address] [place] [address] 07257 Eosinophils/100 WBC (Bld) 2.5 % Normal [facility] Comment on above: Order Comment: Speci men Type: BLOOD SPECIMEN Ordering Facility: [facility] Address: [address] [place] [address] Performed By: #### 5 7021-8 #### [facility] CLIA [id number] [address] [place] [address] 05584 Erythrocyte distribution width (RBC) [Ratio] 13.3 % Normal 11.5-15.0 [facility] Comment on above: Order Comment: Speci men Type: BLOOD SPECIMEN Ordering Facility: [facility] Address: [address] [place] [address] Performed By: #### 5 7021-8 #### [facility] CLIA [id number] [address] [place] [address] 88933 Hematocrit (Bld) [Volume fraction] 47.7 % High 36.0-46.0 [facility] Comment on above: Order Comment: Speci men Type: BLOOD SPECIMEN Ordering Facility: [facility] Address: [address] [place] [address] Performed By: #### 5 7021-8 #### [facility] CLIA [id number] [address] [place] [address] 12376 Hemoglobin (Bld) [Mass/Vol] 15.6 g/dL High 11.5-15.5 [facility] Comment on above: Order Comment: Speci men Type: BLOOD SPECIMEN Ordering Facility: [facility] Address: [address] [place] [address] Performed By: #### 5 7021-8 #### [facility] CLIA [id number] [address] [place] [address] 34170 Immature granulocytes (Bld) [#/Vol] 0.03 10*3/uL Normal <0.10 [facility] Comment on above: Order Comment: Speci men Type: BLOOD SPECIMEN Ordering Facility: [facility] Address: [address] [place] [address] Performed By: #### 5 7021-8 #### [facility] CLIA [id number] [address] [place] [address] 00519 Immature granulocytes/100 WBC (Bld) 0.4 % Normal [facility] Comment on above: Order Comment: Speci men Type: BLOOD SPECIMEN Ordering Facility: [facility] Address: [address] [place] [address] Performed By: #### 5 7021-8 #### [facility] CLIA [id number] [address] [place] [address] 49562 Lymphocytes (Bld) [#/Vol] 2.30 10*3/uL Normal 1.00-4.00 [facility] Comment on above: Order Comment: Speci men Type: BLOOD SPECIMEN Ordering Facility: [facility] Address: [address] [place] [address] Performed By: #### 5 7021-8 #### [facility] CLIA [id number] [address] [place] [address] 69168 Lymphocytes/100 WBC (Bld) 29.7 % Normal [facility] Comment on above: Order Comment: Speci men Type: BLOOD SPECIMEN Ordering Facility: [facility] Address: [address] [place] [address] Performed By: #### 5 7021-8 #### [facility] CLIA [id number] [address] [place] [address] 10167 MCH (RBC) [Entitic mass] 28.8 pg Normal 26.0-34.0 [facility] Comment on above: Order Comment: Speci men Type: BLOOD SPECIMEN Ordering Facility: [facility] Address: [address] [place] [address] Performed By: #### 5 7021-8 #### [facility] CLIA [id number] [address] [place] [address] 73653 MCHC (RBC) [Mass/Vol] 32.7 g/dL Normal 30.5-36.0 [facility] Comment on above: Order Comment: Speci men Type: BLOOD SPECIMEN Ordering Facility: [facility] Address: [address] [place] [address] Performed By: #### 5 7021-8 #### [facility] CLIA [id number] [address] [place] [address] 43068 MCV (RBC) [Entitic vol] 88.2 fL Normal 80.0-100.0 [facility] Comment on above: Order Comment: Speci men Type: BLOOD SPECIMEN Ordering Facility: [facility] Address: [address] [place] [address] Performed By: #### 5 7021-8 #### [facility] CLIA [id number] [address] [place] [address] 42868 Monocytes (Bld) [#/Vol] 0.49 10*3/uL Normal <0.87 [facility] Comment on above: Order Comment: Speci men Type: BLOOD SPECIMEN Ordering Facility: [facility] Address: [address] [place] [address] Performed By: #### 5 7021-8 #### [facility] CLIA [id number] [address] [place] [address] 18971 Monocytes/100 WBC (Bld) 6.3 % Normal [facility] Comment on above: Order Comment: Speci men Type: BLOOD SPECIMEN Ordering Facility: [facility] Address: [address] [place] [address] Performed By: #### 5 7021-8 #### [facility] CLIA [id number] [address] [place] [address] 33665 Neutrophils (Bld) [#/Vol] 4.70 10*3/uL Normal 1.45-7.50 [facility] Comment on above: Order Comment: Speci men Type: BLOOD SPECIMEN Ordering Facility: [facility] Address: [address] [place] [address] Performed By: #### 5 7021-8 #### [facility] CLIA [id number] [address] [place] [address] 76069 Neutrophils/100 WBC (Bld) 60.6 % Normal [facility] Comment on above: Order Comment: Speci men Type: BLOOD SPECIMEN Ordering Facility: [facility] Address: [address] [place] [address] Performed By: #### 5 7021-8 #### [facility] CLIA [id number] [address] [place] [address] Nucleated RBC (Bld) [#/Vol] 10*3/uL Normal <0.01 [facility] Comment on above: Order Comment: Speci men Type: BLOOD SPECIMEN Ordering Facility: [facility] Address: [address] [place] [address] Performed By: #### 5 7021-8 #### [facility] CLIA [id number] [address] [place] [address] 51363 Nucleated RBC/100 WBC (Bld) [Ratio] 0.0 /[address] [facility] Comment on above: Order Comment: Speci men Type: BLOOD SPECIMEN [facility] [facility] Address: [address] [place] [address] Performed By: #### 5 7021-8 #### [facility] CLIA [id number] [address] [place] [address] 27387 Platelet mean volume (Bld) [Entitic vol] 9.6 fL Normal 9.0-12.7 [facility] Comment on above: Order Comment: Speci men Type: BLOOD SPECIMEN Ordering Facility: [facility] Address: [address] [place] [address] Performed By: #### 5 7021-8 #### [facility] CLIA [id number] [address] [place] [address] 23530 Platelets (Bld) [#/Vol] 248 10*3/uL Normal 150-400 [facility] Comment on above: Order Comment: Speci men Type: BLOOD SPECIMEN Ordering Facility: [facility] Address: [address] [place] [address] Performed By: #### 5 7021-8 #### [facility] CLIA [id number] [address] [place] [address] 74657 RBC (Bld) [#/Vol] 5.41 10*6/uL High 3.90-5.20 [facility] Comment on above: Order Comment: Speci men Type: BLOOD SPECIMEN Ordering Facility: [facility] Address: [address] [id number] Performed By: #### 5 7021-8 #### [facility] CLIA [id number] [address] [place] [address] 44281 WBC (Bld) [#/Vol] 7.75 10*3/uL Normal 3.70-11.00 [facility] Comment on above: Order Comment: Speci men Type: BLOOD SPECIMEN Ordering Facility: [facility] Address: [place] [address] Performed By: #### 5 7021-8 #### [facility] CLIA [id number] [address] [place] [address] 87308 T3 SerPl-mCncon 02-01-2023 T3 [Mass/Vol] 123 ng/dL Normal 79-165 [facility] Comment on above: Order Comment: Speci men Type: BLOOD SPECIMEN Ordering Facility: [facility] Address: [address] [place] [address] Performed By: #### 3 053-6, 3016-3, 3026-2 #### [facility] CLIA [id number] [address] [place] [address] [place] T4 SerPl-mCncon 02-01-2023 T4 [Mass/Vol] 11.9 ug/dL High 5.5-10.2 [facility] Comment on above: Order Comment: Speci men Type: BLOOD SPECIMEN Ordering Facility: [facility] Address: [address] [place] [address] Performed By: #### 3 053-6, 3016-3, 3026-2 #### [facility] CLIA [id number] [address] [place] [address] [place] THYROGLOBULIN BY MASS SPECTR OMETRYon 02-01-2023 THYROGLOBULIN, LC-MS/MS <0.5 Low 1.3-31.8 [facility] Comment on above: Order Comment: Speci men Type: BLOOD SPECIMEN Ordering Facility: [facility] Address: [address] [place] [address] Result Comment: Results obtained with different test [...] developed and its performance characteristics determined by [facility]. It has not been cleared or approved by the [place] Food and Drug Administration. This test was performed in a CLIA certified laboratory and is intended for clinical purposes. Performed By: [facility] [address] [place] [address] [employer] Detector Operator: Prem Willis MD, PhD CLIA Number: [id number] Performed By: #### [facility] #### [facility] CLIA [id number] [address] [place] [address] 10589 TSH [facility] 02-01-2023 TSH Qn 0.960 m[IU]/L Normal 0.270-4.200 [facility] Comment on above: Order Comment: Speci men Type: BLOOD SPECIMEN Ordering Facility: [facility] Address: [address] [id number] Result Comment: If t he patient is , TSH reference range varies by gestational period: First Trimester (weeks 9-12): 0.180-2.990 mIU/L Second Trimester: 0.110-3.980 mIU/L Third Trimester: 0.480-4.710 mIU/L Suman Graf et al. A Practical Approach for the Verifications and Determination of Site- and Trimester-Specific Reference Intervals for Thyroid Function tests in . Thyroid, 2019:29:3:412-420. Rajesh Holman, et al. 2017 Guidelines of the [place] [employer] for the Diagnosis and Management of Thyroid Disease during and the . Thyroid, 2017:27:3:315-389. Performed By: #### 3 053-6, 3016-3, 3026-2 #### [facility] CLIA [id number] [address] [place] [address] [place] PREG QUANT HCGon 08-17-2022 HCG QUANT 1 mIU/mL Normal [facility] Comment on above: Performed By: #### P REGQNT #### [facility] [address] [place] [address] Dr. Prashant Kang HCG RANGE SEE BELOW Normal [facility] Comment on above: Result Comment: 5-50 0.2-1 WEEK 50-500 1-2 WEEKS 100-5,000 2-3 WEEKS 500-10,000 3-4 WEEKS 1,000-50,000 4-5 WEEKS 10,000-100,000 5-6 WEEKS 15,000-200,000 6-8 WEEKS 10,000-100,000 2-3 MONTHS Performed By: #### P REGQNT #### [facility] [address] [place] [address] Dr. Prashant Kang PREG QUANT HCGon 07-04-2022 HCG QUANT <1 Normal [facility] Comment on above: Performed By: #### P REGQNT #### [facility] [address] [place] [address] Dr. Prashant Kang HCG RANGE SEE BELOW Normal [facility] Comment on above: Result Comment: 5-50 0.2-1 WEEK 50-500 1-2 WEEKS 100-5,000 2-3 WEEKS 500-10,000 3-4 WEEKS 1,000-50,000 4-5 WEEKS 10,000-100,000 5-6 WEEKS 15,000-200,000 6-8 WEEKS 10,000-100,000 2-3 MONTHS Performed By: #### P REGQNT #### [facility] [address] [place] [address] Dr. Prashant Kang PREG QUANT HCGon 05-16-2022 HCG QUANT <1 Normal [facility] Comment on above: Performed By: #### P TT, PT #### [facility] [address] [place] [address] Dr. Prashant Kang HCG RANGE SEE BELOW Normal [facility] Comment on above: Result Comment: 5-50 0.2-1 WEEK 50-500 1-2 WEEKS 100-5,000 2-3 WEEKS 500-10,000 3-4 WEEKS 1,000-50,000 4-5 WEEKS 10,000-100,000 5-6 WEEKS 15,000-200,000 6-8 WEEKS 10,000-100,000 2-3 MONTHS Performed By: #### P TT, PT #### [facility] [address] [place] [address] Dr. Prashant Kang PREG QUANT HCGon 05-08-2022 HCG QUANT <1 Normal [facility] Comment on above: Performed By: #### P REGQNT #### [facility] [address] [place] [address] Dr. Prashant Kang HCG RANGE SEE BELOW Normal [facility] Comment on above: Result Comment: 5-50 0.2-1 WEEK 50-500 1-2 WEEKS 100-5,000 2-3 WEEKS 500-10,000 3-4 WEEKS 1,000-50,000 4-5 WEEKS 10,000-100,000 5-6 WEEKS 15,000-200,000 6-8 WEEKS 10,000-100,000 2-3 MONTHS Performed By: #### P REGQNT #### [facility] [address] [place] [address] Dr. Prashant Kang CALCIUMon 03-08-2022 Calcium [Mass/Vol] 8.6 mg/dL Normal 8.5-10.1 [facility] Comment on above: Performed By: #### C A #### [facility] [address] [place] [address] Dr. Prashant Kang CALCIUMon 03-07-2022 Calcium [Mass/Vol] 8.4 mg/dL Critically low 8.5-10.1 [facility] Comment on above: Performed By: #### C A #### [facility] [address] [place] [address] Dr. Prashant Kang PREG HCG QUALon 03-07-2022 , QUAL Negative Normal NEGATIVE [facility] Comment on above: Performed By: #### P REG #### [facility] [address] [place] [address] Dr. Prashant Kang Covid-19 PCR (CVDTB)on SARS-CoV-2 (COVID-19) RNA DENEEN+probe Ql (Unsp spec) Not detected Normal NOT DETECTED [facility] Comment on above: Result Comment: This test is not yet approved or cleared by the [place] FDA. When there are no FDA-approved or cleared tests available, and other criteria are met, FDA can make tests available under an emergency access mechanism called an Emergency Use Authorization (EUA). The EUA for this test is supported by the [employer] of Health and Human Service's (HHS's) declaration [...] SARS-CoV-2. Performed By: #### C VDTBH #### [facility] [address] [place] [address] Dr. Prashant Kang CALCIUMon 02-24-2022 Calcium [Mass/Vol] 8.8 mg/dL Normal 8.5-10.1 [facility] Comment on above: Performed By: #### P TT, PT #### [facility] [address] [place] [address] Dr. Prashant Kang CBC AUTO DIFFon 02-24-2022 BASO # 0.0 103/ul Normal 0.0-0.1 [facility] Comment on above: Performed By: #### P TT, PT #### [facility] [address] [place] [address] Dr. Prashant Kang Basophils/100 WBC (Bld) 0.3 % Normal 0.2-2.0 [facility] Comment on above: Performed By: #### P TT, PT #### [facility] [address] [place] [address] Dr. Prashant Kang EO # 0.1 103/ul Normal 0.0-0.7 [facility] Comment on above: Performed By: #### P TT, PT #### [facility] [address] [place] [address] Dr. Prashant Kang Eosinophils/100 WBC (Bld) 1.5 % Normal 0.9-7.0 [facility] Comment on above: Performed By: #### P TT, PT #### [facility] [address] [place] [address] Dr. Prashant Kang Erythrocyte distribution width (RBC) [Ratio] 13.8 % Normal 11.0-15.0 [facility] Comment on above: Performed By: #### P TT, PT #### [facility] [address] [place] [address] Dr. Prashant Kang Hematocrit (Bld) [Volume fraction] 45.5 % Normal 36.0-48.0 [facility] Comment on above: Performed By: #### P TT, PT #### [facility] [address] [place] [address] Dr. Prashant Kang Hemoglobin (Bld) [Mass/Vol] 14.6 g/dL Normal 12.0-16.0 [facility] Comment on above: Performed By: #### P TT, PT #### [facility] [address] [place] [address] Dr. Prashant Kang IG # 0.02 10e3/ul Normal 0.00-0.03 [facility] Comment on above: Performed By: #### P TT, PT #### [facility] [address] [place] [address] Dr. Prashant Kang IG % 0.3 % Normal 0.0-0.5 [facility] Comment on above: Performed By: #### P TT, PT #### [facility] [address] [place] [address] Dr. Prashant Kang LYMPH # 1.6 103/ul Normal 1.2-3.8 [facility] Comment on above: Performed By: #### P TT, PT #### [facility] [address] [place] [address] Dr. Prashant Kang Lymphocytes/100 WBC (Bld) 23.5 % Normal 20.5-60.0 [facility] Comment on above: Performed By: #### P TT, PT #### [facility] [address] [place] [address] Dr. Prashant Kang MANUAL DIFF REQ NO Normal [facility] Comment on above: Performed By: #### P TT, PT #### [facility] [address] [place] [address] Dr. Prashant Kang MCH (RBC) [Entitic mass] 26.5 pg Critically low 26.7-34.0 [facility] Comment on above: Performed By: #### P TT, PT #### [facility] [address] [place] [address] Dr. Prashant Kang MCHC (RBC) [Mass/Vol] 32.1 g/dL Normal 29.9-35.2 [facility] Comment on above: Performed By: #### P TT, PT #### [facility] [address] [place] [address] Dr. Prashant Kang MCV (RBC) [Entitic vol] 82.7 fL Normal 81.0-99.0 [facility] Comment on above: Performed By: #### P TT, PT #### [facility] [address] [place] [address] Dr. Prashant Kang MONO # 0.5 103/ul Normal 0.3-0.8 [facility] Comment on above: Performed By: #### P TT, PT #### [facility] [address] [place] [address] Dr. Prashant Kang Monocytes/100 WBC (Bld) 7.5 % Normal 1.7-12.0 [facility] Comment on above: Performed By: #### P TT, PT #### [facility] [address] [place] [address] Dr. Prashant Kang NEUT # 4.6 103/ul Normal 1.4-6.5 [facility] Comment on above: Performed By: #### P TT, PT #### [facility] [address] [place] [address] Dr. Prashant Kang Neutrophils/100 WBC (Bld) 66.9 % Normal 43.0-75.0 [facility] Comment on above: Performed By: #### P TT, PT #### [facility] [address] [place] [address] Dr. Prashant Kang Platelet mean volume (Bld) [Entitic vol] 9.9 fL Normal 9.5-13.5 [facility] Comment on above: Performed By: #### P TT, PT #### [facility] [address] [place] [address] Dr. Prashant Kang PLT 239 103/ul Normal 150-450 [facility] Comment on above: Performed By: #### P TT, PT #### [facility] [address] [place] [address] Dr. Prashant Kang RBC 5.50 106/ul Critically high 4.20-5.40 [facility] Comment on above: Performed By: #### P TT, PT #### [facility] [address] [place] [address] Dr. Prashant Kang WBC 6.8 103/ul Normal 4.0-11.0 [facility] Comment on above: Performed By: #### P TT, PT #### [facility] [address] [place] [address] Dr. Prashant Kang MAGNESIUMon 02-24-2022 Magnesium [Mass/Vol] 2.0 mg/dL Normal 1.8-2.4 [facility] Comment on above: Performed By: #### P TT, PT #### [facility] [address] [place] [address] Dr. Prashant Kang PHOSPHORUSon 02-24-2022 Phosphate [Mass/Vol] 3.3 mg/dL Normal 2.6-4.7 [facility] Comment on above: Performed By: #### P TT, PT #### [facility] [address] [place] [address] Dr. Prashant Kang PROTIMEon 02-24-2022 INR Coag (PPP) [Relative time] 1.01 {INR} Normal [facility] Comment on above: Performed By: #### P TT, PT #### [facility] [address] [place] [address] Dr. Prashant Kang INR GUIDELINES SEE BELOW Normal [facility] Comment on above: Result Comment: SALIMA RED INR: 2.0 - 3.0 CONDITIONS NOT LISTED BELOW 2.5 - 3.5 FOR PROSTHETIC HEART VALVE REPLACEMENT 2.5 - 3.5 RECURRENT THROMBOSIS Performed By: #### P TT, PT #### [facility] [address] [place], [place] [id number] Dr. Prashant Kang PT Coag (PPP) [Time] 10.9 s Normal 9.0-11.6 [facility] Comment on above: Performed By: #### P TT, PT #### [facility] [address] [place] [address] Dr. Prashant Kang PTTon 02-24-2022 aPTT Coag (Bld) [Time] 28.9 s Normal 22.3-36.2 [facility] Comment on above: Performed By: #### P TT, PT #### [facility] [address] [place] [address] Dr. Prashant Kang TSHon 02-24-2022 TSH 1.163 uIU/mL Normal 0.358-3.740 [facility] Comment on above: Performed By: #### P TT, PT #### [facility] [address] [place] [address] Dr. Prashant Kang US THYROID FN ASP BXon 02-09 US THYROID FN ASP BX Begin Addendum #1 COLLECTED DATE/TIME: 02/03/2022 11:36 EDT Final Diagnosis Report for [facility], [place] (A/B) THYROID ISTHMUS NODULE, FINE NEEDLE [...] 2. Pathology results are pending. Normal [facility] CT NECK ST W CONon 2 [...] SHAILESH EMERY Date: 2022-01-20 13:05 Normal [facility] US THYROIDon 01-20-2022 US THYROID EXAMINATION: [...] isthmus nodule. Consider fine-needle aspiration TI-RADS: The [employer] [employer] TI-RADS committee's white paper recommendations for thyroid lesions classified as TR4 (moderately suspicious) are listed below: > 1.0 cm. Follow-up ultrasound in 1, 2, 3, and 5 years. > 1.5 cm. FNA. J. Am More Radiol 2017;14:587-595. Electronically authenticated by: SHAILESH EMERY Date: 2022-01-20 21:46 Normal [facility] CBC AUTO DIFFon 01-08-2022 BASO # 0.0 103/ul Normal 0.0-0.1 [facility] Comment on above: Performed By: #### P TT, PT #### [facility] [address] [place] [address] Dr. Prashant Kang Basophils/100 WBC (Bld) 0.4 % Normal 0.2-2.0 [facility] Comment on above: Performed By: #### P TT, PT #### [facility] [address] [place] [address] Dr. Prashant Kang EO # 0.2 103/ul Normal 0.0-0.7 [facility] Comment on above: Performed By: #### P TT, PT #### [facility] [address] [place] [address] Dr. Prashant Kang Eosinophils/100 WBC (Bld) 3.4 % Normal 0.9-7.0 [facility] Comment on above: Performed By: #### P TT, PT #### [facility] [address] [place] [address] Dr. Prashant Kang Erythrocyte distribution width (RBC) [Ratio] 14.6 % Normal 11.0-15.0 [facility] Comment on above: Performed By: #### P TT, PT #### [facility] [address] [place] [address] Dr. Prashant Kang Hematocrit (Bld) [Volume fraction] 42.9 % Normal 36.0-48.0 [facility] Comment on above: Performed By: #### P TT, PT #### [facility] [address] [place] [address] Dr. Prashant Kang Hemoglobin (Bld) [Mass/Vol] 13.4 g/dL Normal 12.0-16.0 [facility] Comment on above: Performed By: #### P TT, PT #### [facility] [address] [place] [address] Dr. Prashant Kang IG # 0.02 10e3/ul Normal 0.00-0.03 [facility] Comment on above: Performed By: #### P TT, PT #### [facility] [address] [place] [address] Dr. Prashant Kang IG % 0.3 % Normal 0.0-0.5 [facility] Comment on above: Performed By: #### P TT, PT #### [facility] [address] [place] [address] Dr. Prashant Kang LYMPH # 2.0 103/ul Normal 1.2-3.8 [facility] Comment on above: Performed By: #### P TT, PT #### [facility] [address] [place] [address] Dr. Prashant Kang Lymphocytes/100 WBC (Bld) 29.7 % Normal 20.5-60.0 [facility] Comment on above: Performed By: #### P TT, PT #### [facility] [address] [place] [address] Dr. Prashant Kang MANUAL DIFF REQ NO Normal [facility] Comment on above: Performed By: #### P TT, PT #### [facility] [address] [place] [address] Dr. Prashant Kang MCH (RBC) [Entitic mass] 26.3 pg Critically low 26.7-34.0 [facility] Comment on above: Performed By: #### P TT, PT #### [facility] [address] [place] [address] Dr. Prashant Kang MCHC (RBC) [Mass/Vol] 31.2 g/dL Normal 29.9-35.2 [facility] Comment on above: Performed By: #### P TT, PT #### [facility] [address] [place] [address] Dr. Prashant Kang MCV (RBC) [Entitic vol] 84.1 fL Normal 81.0-99.0 [facility] Comment on above: Performed By: #### P TT, PT #### [facility] [address] [place] [address] Dr. Prashant Kang MONO # 0.6 103/ul Normal 0.3-0.8 [facility] Comment on above: Performed By: #### P TT, PT #### [facility] [address] [place] [address] Dr. Prashant Kang Monocytes/100 WBC (Bld) 8.7 % Normal 1.7-12.0 [facility] Comment on above: Performed By: #### P TT, PT #### [facility] [address] [place] [address] Dr. Prashant Kang NEUT # 3.9 103/ul Normal 1.4-6.5 [facility] Comment on above: Performed By: #### P TT, PT #### [facility] [address] [place] [address] Dr. Prashant Kang Neutrophils/100 WBC (Bld) 57.5 % Normal 43.0-75.0 [facility] Comment on above: Performed By: #### P TT, PT #### [facility] [address] [place] [address] Dr. Prashant Kang Platelet mean volume (Bld) [Entitic vol] 9.9 fL Normal 9.5-13.5 [facility] Comment on above: Performed By: #### P TT, PT #### [facility] [address] [place] [address] Dr. Prashant Kang PLT 241 103/ul Normal 150-450 [facility] Comment on above: Performed By: #### P TT, PT #### [facility] [address] [place] [address] Dr. Prashant Kang RBC 5.10 106/ul Normal 4.20-5.40 [facility] Comment on above: Performed By: #### P TT, PT #### [facility] [address] [place] [address] Dr. Prashant Kang WBC 6.8 103/ul Normal 4.0-11.0 [facility] Comment on above: Performed By: #### P TT, PT #### [facility] [address] [place] [address] Dr. Prashant Kang GROUP A STREP CULTUREon 12-29 S. pyogenes Ag Ql (Unsp spec) Culture Observations: NEGATIVE FOR GROUP A STREPTOCOCCUS. Normal [facility] Comment on above: Performed By: #### P TT, PT #### [facility] [address] [place] [address] Dr. Prashant Kang PROF 14(COMP METB)on 022 Albumin [Mass/Vol] 3.6 g/dL Normal 3.4-5.0 [facility] Comment on above: Performed By: #### C MP #### [facility] [address] [place] [address] Dr. Prashant Kang Albumin/Globulin [Mass ratio] 0.8 {ratio} Normal [facility] Comment on above: Performed By: #### C MP #### [facility] [address] [place] [address] Dr. Prashant Kang ALP [Catalytic activity/Vol] 74 U/L Normal 46-116 [facility] Comment on above: Performed By: #### C MP #### [facility] [address] [place] [address] Dr. Prashant Kang ALT [Catalytic activity/Vol] 40 U/L Normal 14-59 [facility] Comment on above: Performed By: #### C MP #### [facility] [address] [place] [address] Dr. Prashant Kang Anion gap [Moles/Vol] 14.0 mmol/L Normal [facility] Comment on above: Performed By: #### C MP #### [facility] [address] [place] [address] Dr. Prashant Kang AST [Catalytic activity/Vol] 31 U/L Normal 15-37 [facility] Comment on above: Performed By: #### C MP #### [facility] [address] [address] [address] Prashant Kang Bilirubin [Mass/Vol] 0.4 mg/dL Normal 0.2-1.0 [facility] Comment on above: Performed By: #### C MP #### [facility] [address] [address] [address] Prashant Kang Calcium [Mass/Vol] 8.8 mg/dL Normal 8.5-10.1 [facility] Comment on above: Performed By: #### C MP #### [facility] [address] [address] [address] Prashant Kang Chloride [Moles/Vol] 105 mmol/L Normal 98-107 [facility] Comment on above: Performed By: #### C MP #### [facility] [address] [place] [address] Dr. Prashant Kang CO2 [Moles/Vol] 26.6 mmol/L Normal 21.0-32.0 [facility] Comment on above: Performed By: #### C MP #### [facility] [address] [address] [address] Prashant Kang Creatinine [Mass/Vol] 0.80 mg/dL Normal 0.55-1.02 [facility] Comment on above: Performed By: #### C MP #### [facility] [address] [place] [address] Dr. Prashant Kang EGFR-AF SUDANESE >60 Normal >=60 [facility] Comment on above: Performed By: #### C MP #### [facility] [address] [address] [address] Prashant Kang EGFR-NON AF SUDANESE >60 Normal >=60 [facility] Comment on above: Performed By: #### C MP #### [facility] [address] [place] [address] Dr. Prashant Kang Globulin (S) [Mass/Vol] 4.3 g/dL Normal [facility] Comment on above: Performed By: #### C MP #### [facility] [address] [place] [address] Dr. Prashant Kang Glucose [Mass/Vol] 101 mg/dL Normal 74-106 [facility] Comment on above: Performed By: #### C MP #### [facility] [address] [address] [address] Prashant Kang Potassium [Moles/Vol] 4.6 mmol/L Normal 3.5-5.1 [facility] Comment on above: Performed By: #### C MP #### [facility] [address] [address] [address] Prashant Kang Protein [Mass/Vol] 7.9 g/dL Normal 6.4-8.2 [facility] Comment on above: Performed By: #### C MP #### [facility] [address] [address] [address] Prashant Kang Sodium [Moles/Vol] 141 mmol/L Normal 136-145 [facility] Comment on above: Performed By: #### C MP #### [facility] [address] [address] [address] Prashant Kang Urea nitrogen [Mass/Vol] 11.0 mg/dL Normal 7.0-18.0 [facility] Comment on above: Performed By: #### C MP #### [facility] [address] [place] [address] Dr. Prashant Kang Urea nitrogen/Creatinine [Mass ratio] 13.8 mg/mg Normal [facility] Comment on above: Performed By: #### C MP #### [facility] [address] [place] [address] Dr. Prashant Kang STREPT SCREENon 01-08-2022 STREP SCREEN A Negative Normal NEGATIVE [facility] Comment on above: Performed By: #### P TT, PT #### [facility] [address] [place] [address] Dr. Prashant Kang XR NECK SOFT TISSUEon [...] MIKE BARNETT Date: 2022-01-08 04:43 Normal [facility] Covid-19 PCR (CVDTBH)on SARS-CoV-2 (COVID-19) RNA DENEEN+probe Ql (Unsp spec) Not detected Normal NOT DETECTED [facility] Comment on above: Result Comment: This test is not yet approved or cleared by the [place] FDA. When there are no FDA-approved or cleared tests available, and other criteria are met, FDA can make tests available under an emergency access mechanism called an Emergency Use Authorization (EUA). The EUA for this test is supported by the [employer] of Health and Human Service's (HHS's) declaration [...] Performed By: #### P TT, PT #### [facility] [address] [place] [address] Dr. Prashant Kang Vital Signs Date Time Vital Sign Value Performing Clinician Faci lity 05-12-2024 13:54-0500 Body mass index (BMI) [Ratio] 37.7 kg/m2 [employer] Work Phone: [facility] 05-12-2024 13:54-0500 Body weight 93.5 kg [employer] Work Phone: [facility] 05-12-2024 13:54-0500 Diastolic blood pressure 60 mm[Hg] [employer] Work Phone: [facility] 05-12-2024 13:54-0500 Systolic blood pressure 120 mm[Hg] Acosta Shania DO Work Phone: [facility] 04-14-2024 13:52-0500 Body mass index (BMI) [Ratio] 39.69 kg/m2 Acosta Shania DO Work Phone: [facility] 04-14-2024 13:52-0500 Body weight 98.43 kg Acosta Shania DO Work Phone: [facility] 04-14-2024 13:52-0500 Diastolic blood pressure 72 mm[Hg] Acosta Shania DO Work Phone: [facility] 04-14-2024 13:52-0500 Systolic blood pressure 122 mm[Hg] Acosta Shania DO Work Phone: [facility] 03-31-2024 13:44-0500 Body mass index (BMI) [Ratio] 40.75 kg/m2 Acosta Shania DO Work Phone: [facility] 03-31-2024 13:44-0500 Body weight 101.06 kg Acosta Shania DO Work Phone: [facility] 03-31-2024 13:44-0500 Diastolic blood pressure 70 mm[Hg] Acosta Shania DO Work Phone: [facility] 03-31-2024 13:44-0500 Systolic blood pressure 120 mm[Hg] Acosta Shania DO Work Phone: [facility] 03-24-2024 13:16-0500 Body mass index (BMI) [Ratio] 40.02 kg/m2 Acosta Shania DO Work Phone: [facility] 03-24-2024 13:16-0500 Body weight 99.25 kg Acosta Shania DO Work Phone: [facility] 03-24-2024 13:16-0500 Diastolic blood pressure 70 mm[Hg] Acosta Shania DO Work Phone: [facility] 03-24-2024 13:16-0500 Systolic blood pressure 120 mm[Hg] Acosta Shania DO Work Phone: [facility] 03-10-2024 13:45-0500 Body mass index (BMI) [Ratio] 40.38 kg/m2 Acosta Shania DO Work Phone: [facility] 03-10-2024 13:45-0500 Body weight 100.15 kg Acosta Shania DO Work Phone: [facility] 03-10-2024 13:45-0500 Diastolic blood pressure 76 mm[Hg] Acosta Shania DO Work Phone: [facility] 03-10-2024 13:45-0500 Systolic blood pressure 114 mm[Hg] Acosta Shania DO Work Phone: [facility] 02-25-2024 14:08-0400 Body mass index (BMI) [Ratio] 39.87 kg/m2 Kim YAO Work Phone: [facility] 02-25-2024 14:08-0400 Body weight 98.88 kg Kim Ml PA Work Phone: [facility] 02-25-2024 14:08-0400 Diastolic blood pressure 70 mm[Hg] Kim Ml PA Work Phone: [facility] 02-25-2024 14:08-0400 Systolic blood pressure 114 mm[Hg] Kim Mckeon PA Work Phone: [facility] 02-11-2024 11:10-0400 Body mass index (BMI) [Ratio] 40.2 kg/m2 Acosta Shania DO Work Phone: [facility] 02-11-2024 11:10-0400 Body weight 99.7 kg Acosta Shania DO Work Phone: [facility] 02-11-2024 11:10-0400 Diastolic blood pressure 64 mm[Hg] Acosta Shania DO Work Phone: [facility] 02-11-2024 11:10-0400 Systolic blood pressure 112 mm[Hg] Acosta Shania DO Work Phone: [facility] 01-14-2024 13:36-0400 Body mass index (BMI) [Ratio] 39.1 kg/m2 Acosta Shania DO Work Phone: [facility] 01-14-2024 13:36-0400 Body weight 96.98 kg Acosta Shania DO Work Phone: [facility] 01-14-2024 13:36-0400 Diastolic blood pressure 60 mm[Hg] Acosta Shania DO Work Phone: [facility] 01-14-2024 13:36-0400 Systolic blood pressure 120 mm[Hg] Acosta Shania DO Work Phone: [facility] 12-17-2023 14:20-0400 Body mass index (BMI) [Ratio] 39.51 kg/m2 Acosta Shania DO Work Phone: [facility] 12-17-2023 14:20-0400 Body weight 97.98 kg Acosta Shania DO Work Phone: [facility] 12-17-2023 14:20-0400 Diastolic blood pressure 80 mm[Hg] Acosta Shania DO Work Phone: [facility] 12-17-2023 14:20-0400 Systolic blood pressure 124 mm[Hg] Acosta Shania DO Work Phone: [facility] 06-12-2023 13:54-0500 Body mass index (BMI) [Ratio] 40.6 kg/m2 Acosta Shania DO Work Phone: [facility] 06-12-2023 13:54-0500 Body weight 100.7 kg Acosta Shania DO Work Phone: [facility] 06-12-2023 13:54-0500 Diastolic blood pressure 74 mm[Hg] Acosta Shania DO Work Phone: [facility] 06-12-2023 13:54-0500 Systolic blood pressure 118 mm[Hg] Acosta Shania DO Work Phone: [facility] 05-04-2022 09:40-0500 Body temperature 97.2 [degF] JONNY Garcia MD Work Phone: [facility] 05-04-2022 09:40-0500 Body weight 88.81 kg JONNY Garcia MD Work Phone: [facility] 05-04-2022 09:40-0500 Diastolic blood pressure 73 mm[Hg] NA Jose BULLOCK Work Phone: [facility] 05-04-2022 09:40-0500 Heart rate 67 /min JONNY Garcia MD Work Phone: [facility] 05-04-2022 09:40-0500 Respiratory rate 16 /min JONNY Garcia MD Work Phone: [facility] 05-04-2022 09:40-0500 SaO2% (BldA) [Mass fraction] 100 % JONNY Garcia MD Work Phone: [facility] 05-04-2022 09:40-0500 Systolic blood pressure 113 mm[Hg] NA Jose BULLOCK Work Phone: [facility] Encounters Encounter Date Encounter Type Care Provider Facility Start: 05-12-2024 End: 05-12-2024 Office outpatient visit 15 minutes Acosta Shania DO Work Phone: [facility] Comment on above: 6 weeks f ollow-up; Pre-operative exam Start: 05-12-2024 End: 05-12-2024 Preprocedural examination done Acosta Shania DO Work Phone: [facility] Start: 05-12-2024 End: 05-12-2024 ambulatory ACOSTA SHANIA Not Available Start: 04-26-2024 End: 04-26-2024 ambulatory Sara Medellin Facility:[facility] Start: 04-19-2024 End: 04-19-2024 Clinisync Result Encounter [...] Start: 02-26-2024 End: 02-26-2024 Patient encounter procedure [facility] Comment on above: [...] Bamboo flowsheet Acosta Shania DO Work Phone: [facility] Start: 02-11-2024 End: 02-11-2024 Bamboo flowsheet Acosta Shania DO Work Phone: [facility] Start: 02-11-2024 End: 02-11-2024 Office outpatient visit 15 minutes Acosta Shania DO Work Phone: [facility] Comment on above: Third trimester preg yogesh; Thyroid disease (CMS/HCC); 29 weeks gestation of ; History of placental abruption; Non compliance w medication regimen Start: 02-11-2024 End: 02-11-2024 ambulatory ACOSTA SHANIA Not Available Start: 02-08-2024 End: 02-08-2024 Clinisync Result Encounter Acosta Shania DO Work Phone: [facility] External Department Unsolicited Start: 02-08-2024 End: 02-08-2024 Clinisync Result Encounter Acosta Shania DO Work Phone: [facility] External Department Unsolicited Start: 01-23-2024 End: 01-24-2024 Telephone encounter Arslan Garcia MD Work Phone: Rad[facility] Oncology Comment on above: Patient Question Start: 01-14-2024 End: 01-14-2024 ambulatory ACOSTA SHANIA Not Available Start: 01-14-2024 End: 01-14-2024 Office outpatient visit 15 minutes Acosta Shania DO Work Phone: [facility] Comment on above: 25 weeks gestation o f ; Diabetes mellitus screening; First trimester Start: 01-11-2024 End: 01-11-2024 ambulatory ACOSTA R SHANIA [facility] Start: 01-02-2024 End: 01-02-2024 Clinisync Result Encounter Acosta Shania DO Work Phone: [facility] External Department Unsolicited Start: 01-02-2024 End: 01-02-2024 [...] Start: 02-08-2023 End: 02-08-2023 ambulatory SARA MEDELLIN Facility:[facility] Start: 02-01-2023 End: 02-01-2023 ambulatory SARA MEDELLIN Facility:[facility] Start: 11-09-2022 Telephone encounter Arslan Garcia MD Work Phone: [facility] Comment on above: Appointment Confirma [...] encounter Arslan Garcia MD Work Phone: [facility] Comment on above: Missed Appointment Start: 04-20-2022 Patient encounter procedure [facility] Provider [facility] Department Start: 04-11-2022 End: 04-11-2022 Patient encounter procedure Lab/[place] Zhao Work Phone: Radiation Oncology Comment on above: Thyroid cancer (HCC) (Primary Dx) Start: 03-09-2022 Encounter for preprocedural laboratory examination DR CHARLIE EASTMAN [facility] Start: 03-07-2022 End: 11-09-[address] CHARLIE EASTMAN Facility:[facility] Start: 03-04-2022 [...] Acosta Shania DO Work Phone: Start: 04-18-2024 [facility] DRUG SCREEN RAPI D (URINE) Acosta Shania [...] stick/tabl et rgnt non-auto w/o micrscp Acosta Legero DO Work Phone: Start: 01-02-2024 ALL CBC WITH AUTO DIFF Acosta Jauregui DO Work Phone: Start: 12-17-2023 Urnls dip stick/tabl et rgnt non-auto w/o micrscp Acostamirella Legero DO Work Phone: Start: 11-13-2023 Microscopic observat ion [Identifier] in Cervix by Cyto stain Acosta Legero DO Work Phone: Start: 11-13-2023 Cytp cerv/vag auto t hin layer prep mnl screen Acosta Shania DO Work Phone: Plan of Treatment Date Care Activity Detail Author Start: 11-12-2028 Screening for malign ant neoplasm of cervix [facility] Start: 01-10-2025 Adult BMI Screening Adult BMI Screen ing [facility] Start: 01-10-2025 Tobacco Screening Tobacco Screening [facility] Start: 05-12-2024 End: 05-12-2024 ambulatory 05/12/2024 1:40 PM EST Visit [facility] [address] [place] [place] [address] Acosta Jauregui, DO [address] [place], [place] [id number] [facility] Start: 04-14-2024 End: 04-14-2024 Patient encounter procedure 04/14/2024 1:20 PM EST Routine [facility] [address] [place] [address] Acosta Jauregui, DO [address] [place], [place] [id number] [facility] Start: 03-31-2024 End: 03-31-2025 [...] PM EST Routine [facility] [address] [place] [place] [id number] Acosta Jauregui, DO [address] [place], [place] [id number] [facility] Start: 03-10-2024 End: 03-10-2024 Patient encounter procedure 03/10/2024 1:00 PM EST Routine [facility] [address] [place] [place] [id number] Acosta Jauregui, DO [address] [place], [place] [id number] [facility] Start: 02-25-2024 End: 02-24-2025 US biophysical profile w non stress test US biophysical profile w non stress test Imaging Routine Thyroid disease (CMS/HCC) Expected: 02/25/2024 (Approximate), Expires: 02/24/2025 [facility] Work Phone: Comment on above: Expected: 02/25/2024 (Approximate), Expires: 02/24/2025 Start: 02-25-2024 End: 02-25-2024 Patient encounter procedure [facility] Comment on above: Arrived Start: 02-11-2024 End: 02-10-2025 US biophysical profile w non stress test US biophysical profile w non stress test Imaging Routine Thyroid disease (CMS/HCC) 29 weeks gestation of History of placental abruption Expected: 02/11/2024 (Approximate), Expires: 02/10/2025 [facility] Work Phone: Comment on above: Expected: 02/11/2024 (Approximate), Expires: 02/10/2025 Start: 02-11-2024 End: 02-10-2025 US for US OB SCAN FOR GROWTH Imaging Routine Thyroid disease (CMS/HCC) 29 weeks gestation of History of placental abruption Expected: 02/11/2024 (Approximate), Expires: 02/10/2025 [facility] Comment on above: Expected: 02/11/2024 (Approximate), Expires: 02/10/2025 Start: 02-11-2024 End: 02-11-2024 Patient encounter procedure [facility] Comment on above: Arrived Start: 01-14-2024 End: 01-13-2025 CBC panel - Blood by Automated count CBC Lab Routine Diabetes mellitus screening Expected: 01/14/2024 (Approximate), Expires: 01/13/2025 [facility] Work Phone: Comment on above: Expected: 01/14/2024 (Approximate), Expires: 01/13/2025 Start: 01-14-2024 End: 01-14-2024 Patient encounter procedure 01/14/2024 1:20 PM EDT Routine [facility] [address] [place] [address] Acosta Jauregui, DO [address] [place], [place] [id number] [facility] Start: 12-30-2023 Covid-19 Vaccine ( season) Covid-19 Vaccine ( season) [facility] Start: 12-30-2023 Influenza vaccination C [facility] Start: 08-15-2023 End: 11-14-2023 Thyroglobulin and Thyrogobulin Ab panel - Serum or Plasma THYROGLOBULIN, SERUM WITH REFLEX TO IA OR LC-MS/MS Lab Routine Thyroid cancer (HCC) Expected: 08/15/2023, Expires: 11/14/2023 [facility] Work Phone: Comment on above: Expected: 08/15/2023 , Expires: 11/14/2023 Start: 08-15-2023 End: 11-14-2023 Thyrotropin [Units/volume] in Serum or Plasma THYROID STIMULATING HORMONE Lab Routine Thyroid cancer (HCC) Expected: 08/15/2023, Expires: 11/14/2023 [facility] Work Phone: Comment on above: Expected: 08/15/2023 , Expires: 11/14/2023 Start: 08-15-2023 End: 11-14-2023 Thyroxine (T4) [Mass/volume] in Serum or Plasma T4/THYROXINE Lab Routine Thyroid cancer (HCC) Expected: 08/15/2023, Expires: 11/14/2023 [facility] Work Phone: Comment on above: Expected: 08/15/2023 , Expires: 11/14/2023 Start: 06-26-2023 End: 06-26-2023 Professional / ancillary services management 06/26/2023 1:00 PM EST Ancillary Procedure [facility] [address] [place] [address] [facility] Start: 06-12-2023 End: 06-12-2024 US for US PELVIS-TRANSVAG IF INDICATED Imaging Routine Amenorrhea Expected: 06/12/2023 (Approximate), Expires: 06/12/2024 [facility] Comment on above: Expected: 06/12/2023 (Approximate), Expires: 06/12/2024 Start: 04-30-2023 Behavioral Health Screening Behavioral Health Screening [facility] Start: 04-30-2023 Depression Assessment Depression Ass essment [facility] Start: 12-29-2022 Covid-19 Vaccine () Covid-19 Vaccine () [facility] Start: 12-29-2022 Influenza vaccination C [facility] Start: 07-02-2022 End: 09-01-2022 THYROGLOBULIN BY MASS SPECTROMETRY THYROGLOBULIN BY MASS SPECTROMETRY Lab Routine Thyroid cancer (HCC) Expected: 07/02/2022, Expires: 09/01/2022 [facility] Work Phone: Comment on above: Expected: 07/02/2022 , Expires: 09/01/2022 Start: 07-02-2022 End: 09-01-2022 Thyrotropin [Units/volume] in Serum or Plasma TSH BLD Lab Routine Thyroid cancer (HCC) Expected: 07/02/2022, Expires: 09/01/2022 [facility] Work Phone: Comment on above: Expected: 07/02/2022 , Expires: 09/01/2022 Start: 07-02-2022 End: 09-01-2022 Thyroxine (T4) [Mass/volume] in Serum or Plasma T4/THYROXINE BLOOD Lab Routine Thyroid cancer (HCC) Expected: 07/02/2022, Expires: 09/01/2022 [facility] Work Phone: Comment on above: Expected: 07/02/2022 , Expires: 09/01/2022 Start: 04-30-2022 DEPRESSION ASSESSMENT DEPRESSION ASS [facility] Start: 2022 HPV TESTING HPV TESTING [facility] Start: 2022 Screening for malign ant neoplasm of cervix HPV Testing [facility] Start: 12-29-2021 Influenza vaccination INFLUENZA (#1) [facility] Start: 04-30-2021 DEPRESSION ASSESSMENT DEPRESSION ASS [facility] Start: 2013 PAP TESTING PAP TESTING [facility] Start: 2013 Screening for malign ant neoplasm of cervix [facility] Start: 2011 DTaP,Tdap and Td Vaccines (1 - Tdap) DTaP,Tdap and Td Vaccines (1 - Tdap) [facility] Start: 2011 Hepatitis B Vaccine (1 of 3 - 19+ 3-dose series) Hepatitis B Vaccine (1 of 3 - 19+ 3-dose series) [facility] Start: 2011 Urine microalbumin profile [facility] Start: 2010 Adult BMI Follow Up Plan Adult BMI Follow Up Plan [facility] Start: 2010 Anxiety Screening Anxiety Screening [facility] Start: 2010 Depression Screening Depression Scre enlili [facility] Start: 2010 HEPATITIS C SCREENING HEPATITIS C [facility] Start: 2010 Hepatitis C screening Hepatitis C [facility] Start: 2010 HIV SCREENING HIV SCREENING [facility] Start: 2010 HIV screening HIV Screening [facility] Start: 2004 [facility]ening [facility] Start: 1998 PNEUMOCOCCAL (1 - PCV) PNEUMOCOCCAL (1 - PCV) [facility] Start: 1998 Pneumococcal vaccination [facility] Start: 1992 COVID-19 VACCINE (#1) COVID-19 VACCI NE (#1) [facility] Start: 1992 HEPATITIS B (1 of 3 - 3-dose series) HEPATITIS B (1 of 3 - 3-dose series) [facility] Start: 1992 Hepatitis B Vaccine (1 of 3 - 3-dose series) Hepatitis B Vaccine (1 of 3 - 3-dose series) [facility] Start: 1992 Tobacco Counseling Tobacco Counselin g [facility] CBC W Auto Different ial panel - Blood CBC and differential Lab Routine Amenorrhea Ordered: 06/12/2023 [facility] Comment on above: Ordered: 06/12/2023 hCG, quantitative, hCG, quantitative, Lab Routine Amenorrhea Ordered: 06/12/2023 [facility] Comment on above: Ordered: 06/12/2023 Hemoglobin A1c measurement Hemoglobin A1c Lab Routine Amenorrhea Ordered: 06/12/2023 [facility] Comment on above: Ordered: 06/12/2023 Hemoglobin A1c/Hemoglobin.total in Blood Hemoglobin A1c Lab Routine Diabetes mellitus screening Ordered: 01/14/2024 [facility] Comment on above: Ordered: 01/14/2024 Hemoglobin A1c/Hemoglobin.total in Blood Hemoglobin A1c Lab Routine Diabetes mellitus screening Ordered: 12/17/2023 [facility] [employer] Work Phone: Comment on above: Ordered: 12/17/2023 Prolactin Prolactin Lab Ro utine Amenorrhea Ordered: 06/12/2023 [facility] Comment on above: Ordered: 06/12/2023 Thyrotropin [Units/volume] in Serum or Plasma TSH Lab Routine Amenorrhea Ordered: 06/12/2023 [facility] [employer] Work Phone: Comment on above: Ordered: 06/12/2023 [facility] Payers Date Payer Category Payer Self-pay 2022 Medicaid HMO [employer] [id number] 2020 Medicaid [id number] 2020 Medicaid (Managed Care) [employer] [id number] 1992 Unknown [id number] 2.16.840.1.389566.3.579.2. 593 1992 Unknown [id number] 2.16.840.1.150725.3.579.2. 593 1992 Unknown [id number] 2.16.840.1.337077.3.579.2. 593 1992 Unknown [id number] 2.16.840.1.395003.3.579.2. 593 1992 Unknown [id number] 2.16.840.1.825268.3.579.2. 593 1992 Unknown [id number] 2.16.840.1.947881.3.579.2. 593 1992 Unknown [id number] 2.16.840.1.425441.3.579.2. 593 1992 Unknown [id number] 2.16.840.1.088788.3.579.2. 593 1992 Unknown [id number] 2.16.840.1.979840.3.579.2. 593 1992 Unknown [id number] 2.16.840.1.435088.3.579.2. 593 1992 Unknown [id number] 2.16.840.1.586931.3.579.2. 593 1992 Unknown [id number] 2.16.840.1.177378.3.579.2. 593 1992 Unknown [id number] 2.16.840.1.364083.3.579.2. 593 1992 Unknown [id number] 2.16.840.1.143742.3.579.2. 593 1992 Unknown [id number] 2.16.840.1.994611.3.579.2. 593 1992 Unknown [id number] 2.16.840.1.664262.3.579.2. 1286 1992 Unknown [id number] 2.16.840.1.089778.3.579.2. 1286 1992 Unknown [id number] 2.16.840.1.457704.3.579.2. 1259 1992 Unknown [id number] 2.16.840.1.878210.3.579.2. 1259 1992 Unknown [id number] 2.16.840.1.698724.3.579.2. 1259 1992 Unknown [id number] 2.16.840.1.561411.3.579.2. 9 1992 Unknown [id number] 2.16.840.1.661104.3.579.2. 9 1992 Unknown [id number] 2.16.840.1.193791.3.579.2. 9 1992 Unknown [id number] 2.16.840.1.751573.3.579.2. 9 1992 Unknown [id number] 2.16.840.1.478270.3.579.2. 1258 1992 Unknown [id number] 2.16.840.1.636218.3.579.2. 9 1992 Unknown [id number] 2.16.840.1.432066.3.579.2. 1258 1992 Unknown [id number] 2.16.840.1.611990.3.579.2. 9 1992 Unknown [id number] 2.16.840.1.976402.3.579.2. 9 1992 Unknown [id number] 2.16.840.1.064588.3.579.2. 1259 1959 Unknown [id number] Unknown [id number] 2.16.840.1.115740.3.579.2. 531 Social History Date Type Detail Facility Start: 04-11-2022 End: 09-23-2022 Tobacco smoking status WIIS Smokes tobacco daily [facility] History of tobacco use Cigarette Smoker C [facility] Start: 04-11-2022 End: 09-14-2023 Cigarettes smoked current (pack per day) - Reported 1 [facility] Start: 04-11-2022 End: 09-23-2022 Tobacco use and exposure Smokeless tobacco non-user [facility] Start: 04-11-2022 End: 05-12-2024 Alcohol intake Current drinker of alcohol (finding) [facility] Start: 04-11-2022 Alcohol Comment socially [facility] Start: 1992 [facility]igned At [facility] Start: 05-04-2022 End: 09-14-2023 Tobacco use panel [facility] Adult Depression Screening Assessment 0 [facility] Start: 10-03-2022 Alcohol Comment caffeine intak e: 1-2 cups per day [facility] Start: 1992 Sex Assigned At Female [facility] Start: 10-04-2022 Gender identity Identifies as female gender (finding) [facility] Start: 08-06-2023 [facility] Start: 01-11-2024 Alcoholic beverage intake Ex-drinker (finding) [facility] Start: 08-26-2018 Sex Female (finding) [facility] Clinical Notes 03-07-2022 to 05-12-2024 Sylvia Rader, [facility] - 05/12/2024 1:40 PM Orly Clement, [facility] - 04/14/2024 1:20 PM Orly Clement, [facility] - 03/31/2024 1:30 PM Noah Rader, [facility] - 03/24/2024 1:00 PM EST Note Date & Type Note Facility 05-12-2024 History of Present illness Narrative Reason for Appointment: Patient ID: Amanda Cortez is a 34 y.o. female who presents for Follow-up and Pre-op Visit Patient presents today for Post Follow Up appointment. and Pre Op appointment. Patient is scheduled to undergo Bilateral Laparoscopic Salpingectomy on 06/06/[address] Jaurgeui at [facility]. MEDICATIONS Current Outpatient Medications Medication Instructions aspirin [...] nursing note reviewed. Exam conducted with a new patient escort present. Vitals: Estimated body mass index is 37.7 kg/m as calculated from the following: Height as of 01/03/23: 5' 2 . Weight as of this encounter: 206 lb 1.9 oz. BP: 120/60 Patient's last menstrual period was 06/11/2023. ASSESSMENT & PLAN ICD-10-CM 1. 6 weeks follow-up Z39.2 2. Pre-operative exam Z01.818 Pre Op: Patient is doing well but has complaints of desires sterilization. I have discussed conservative management vs. surgical management with the patient in detail and patient desires surgical management at this time. Patient will undergo Bilateral Laparoscopic Salpingectomy on 06/06/2024. Surgical consents were signed, mmc was reviewed, and patient is to proceed to [facility]. Follow Up: Patient is to follow up between 1-2 weeks post operative to assess proper healing and recovery from procedure. Documented by Sylvia Rader LPN on behalf of: Acosta Jauregui DO documented in this encounter [facility] 04-14-2024 History of Present illness Narrative Reason [...] nursing note reviewed. Exam conducted with a new patient escort present. Vitals: Estimated body mass index is [...] Acosta Jauregui DO documented in this encounter [facility] 03-31-2024 History of Present illness Narrative [...] Problems Diagnosis Date Noted Papillary thyroid carcinoma ([facility]) 09/23/2022 Thyroid disease ([facility]) 09/23/2022 Bilateral tinnitus 10/04/2022 Asymmetric SNHL (sensorineural [...] nursing note reviewed. Exam conducted with a new patient escort present. Vitals: Estimated body mass index is [...] Acosta Jauregui DO documented in this encounter [facility] 03-24-2024 History of Present illness Narrative [...] nursing note reviewed. Exam conducted with a new patient escort present. Vitals: Estimated body mass index is [...] Acosta Jauregui DO documented in this encounter [facility] 03-10-2024 History of Present illness Narrative [...] nursing note reviewed. Exam conducted with a new patient escort present. Vitals: Estimated body mass index is [...] 2 weeks. Patient will continue NST/BPP at [facility] as well. Documented by Sylvia Rader LPN on behalf of: Acosta Jauregui DO documented in this encounter [facility] 02-26-2024 History of Present illness Narrative [facility] Patient visited the Food Clinic and received food documented in this encounter [facility] 02-25-2024 History of Present illness Narrative [...] weeks gestation of Z3A.31 3. 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 Ambulatory Problems Diagnosis Date Noted Acid reflux 09/23/2022 Amenorrhea 09/23/2022 Lesion of palate 09/23/2022 depression (CMS/HCC) 09/23/2022 Thyroid mass ([facility]/HCC) 09/23/2022 Vaginal delivery 09/23/2022 Past Medical History: Diagnosis Date Chronic maxillary sinusitis Diarrhea Ear problems Family planning Fatigue Fibroadenoma of breast, right Foreign body sensation in throat History of miscarriage LPRD (laryngopharyngeal reflux disease) Obesity Papilloma of palate PCOS (polycystic ovarian syndrome) Thyroid cancer (CMS/HCC) Thyroid nodule ([facility]) HISTORY PAST MEDICAL HISTORY SOCIAL HISTORY Past Medical History: Diagnosis Date Acid reflux 09/23/2022 Acid reflux Amenorrhea 09/23/2022 Chronic maxillary sinusitis Diarrhea Ear problems Family planning Fatigue Fibroadenoma of breast, right Foreign body sensation in throat History of miscarriage LPRD (laryngopharyngeal reflux disease) Obesity Papilloma of palate PCOS (polycystic ovarian syndrome) depression (CMS/HCC) 09/23/2022 Thyroid cancer (CMS/HCC) Thyroid mass (CMS/HCC) 09/23/2022 Thyroid nodule ([facility]/HCC) Vaginal delivery 09/23/2022 Vaginal delivery Social History [...] nursing note reviewed. Exam conducted with a new patient escort present. Vitals: Estimated body mass index is [...] Acosta Jauregui DO documented in this encounter [facility] 01-24-2024 Telephone encounter Note I notified Amanda of Dr. Garcia's response. She will call after she delivers in March 2024 to scheduled follow up. Irais Turpin RN [facility] 01-24-2024 Miscellaneous Notes I notified Amanda of Dr. Garcia's response. She will call after she delivers in March 2024 to scheduled follow up. Irais Turpin RN Amanda called stating she is currently and is being followed very closely by [facility] in [place] and her local ETL CONSULTANT. She states her high risk is d/t [...] Irais Turpin RN documented in this encounter [facility] 01-23-2024 Telephone encounter Note Amanda called stating she is currently and is being followed very closely by [facility] in [place] and her local ETL CONSULTANT. She states her high risk is d/t [...] possible lab work? Thanks Irais Turpin RN [facility] 01-14-2024 History of Present illness Narrative [...] nursing note reviewed. Exam conducted with a new patient escort present. Vitals: Estimated body mass index is [...] Acosta Jauregui DO documented in this encounter [facility] 12-17-2023 History of Present illness Narrative [...] nursing note reviewed. Exam conducted with a new patient escort present. Vitals: Estimated body mass index is [...] after delivery. [facility] Patient had ultrasound done today. Patient to return to clinic in 4 weeks for routine OB appointment. Patient will have Growth scans starting at 28 weeks and NST/BPP starting at 32 weeks gestation. Documented by Sylvia Rader LPN on behalf of: Acosta Jauregui DO documented in this encounter [facility] 11-13-[address] Christine office received ref and they will be calling patient to schedule appointment. Records faxed to Dr. Arteaga. Lawanda please send records to [facility] facesheet in your box Images from the original note were not included. Spoke to pt. She would like to see endocrinology in [place]. Pt's OB did adjust synthroid recently and has been monitoring labs. TREASURE- please sign pended order. PSS- please arrange visit when order is signed. KAREN Peters, Danna Mcdowell RN Previous Messages ----- Message ----- From: Arslan Garcia MD Sent: 11/02/2023 12:08 PM EDT To: Obi Dunlap; [facility] Rad Nurse Pool Given what sounds like patient is in first trimester and ongoing concerns of breast-feeding recommend she follow-up with endocrinology. documented in this encounter [facility] 11-13-[address] Christine office received ref and they will be calling patient to schedule appointment. [facility] 11-12-2023 Telephone encounter Note Records faxed to Dr. Arteaga. [facility] 11-12-2023 Telephone encounter Note Lawanda boswell send records to [facility] facesheet in your box [facility] 11-12-2023 Telephone encounter Note Images from the original note were not included. Spoke to pt. She would like to see endocrinology in [place]. Pt's OB did adjust synthroid recently and [...] of breast-feeding recommend she follow-up with endocrinology. [facility] 10-24-2023 Note HNO ID: [id number] Author: Arslan GARCIA MD Service: ? Author Type: Physician Type: Progress Notes Filed: 11/02/2023 12:08 Note Text: Unable to reach patient. [facility] 10-24-2023 History of Present illness Narrative Unable to reach patient. documented in this encounter [facility] 08-14-2023 Miscellaneous Notes TREASURE- please sign [...] Danna Pitts RN documented in this encounter [facility] 07-19-2023 Miscellaneous Notes Pt called to request labs sent to [facility]. Faxed to central scheduling. Edna Sal RN documented in this encounter [facility] 06-12-2023 History of Present illness Narrative [...] Acosta Jauregui DO documented in this encounter [facility] 02-14-2023 Miscellaneous Notes Images from the original note were not included. Patient is scheduled for appointments Arslan Garcia MD [facility] Jarratt; Obi Genao 4 months with labs. Orders have been placed in [facility]. documented in this encounter [facility] 02-08-2023 Note HNO ID: [id number] Author: Arslan Garcia MD Service: ? Author [...] Time Spent: 6 minutes Arslan Garcia MD [facility] 11-09-2022 Miscellaneous Notes Images from the original note were not included. Patient is called and scheduled. Arslan Garcia MD [facility] Nurse Jarratt; Obi Genao 8 weeks with labs, orders placed, thank you documented in this encounter [facility] 07-17-2022 Miscellaneous Notes Appointment has been changed to phone appt. Tj Funez Pt called in requesting to be switched to a phone visit tomorrow. Her kids are on spring break and a couple of them are sick. Labs have been done and resulted. PSS- please change to phone visit for tomorrow. Danna Pitts RN documented in this encounter [facility] 05-04-2022 History of Present illness Narrative Radiation Oncology - FollowupNote PATIENT NAME: Amanda Cortez PATIENT : 1990 DIAGNOSIS: Thyroid cancer, classic papillary thyroid carcinoma, status post total thyroidectomy and right neck exploration on 03/07/2022, stage I [id number]. HPI: Patient returns after further work-up and [...] and right neck exploration on 03/07/2022, stage [id number]. Patient does have significant thyroglobulin antibody however [...] for this encounter. documented in this encounter [facility] 04-25-2022 Miscellaneous Notes Patient had been rescheduled. Tj Funez Images from the original note were not included. Called patient to reschedule, LMOV. Tj Garcia MD [facility] Nurse Jarratt; Tj Funez Unable to reach please reschedule documented in this encounter [facility] 04-11-2022 Nurse Note Amanda Cortez presents in office today for: Lab Draw during Office Visit . Ordering Provider: Felipe Garcia M.D. Test (s) ordered: TG Method for obtaining blood: Phlebotomy was performed, accessing right antecubital vein. Needle removed intact. Dressing secured. Patient denies discomfort, dizziness, light-headedness or weakness and left the department without assist. Danna Pitts, RN documented in this encounter [facility] 03-07-2022 Note OPERATIVE NOTE OPERATION DATE: [...] the recovery room in good condition. [facility] Evaluation note Diagnosis Thyroid cancer (HCC)- Primary Malignant neoplasm of thyroid gland [facility] Thyroid [facility] ([facility]CC)- Primary Malignant neoplasm of thyroid gland [facility] Diagnosis Missed menses Amenorrhea Absence of menstruation documented in this encounter [facility]* Diagnosis Thyroid cancer (HCC)- Primary Malignant neoplasm of thyroid gland [facility] Diagnosis Thyroid cancer (HCC)- Primary Malignant neoplasm of thyroid gland [facility] Diagnosis Thyroid cancer (HCC)- Primary Malignant neoplasm of thyroid gland [facility] Diagnosis Third trimester state, incidental [...] of Food insecurity [facility] Diagnosis Third trimester state, incidental 33 weeks gestation of Thyroid disease (CMS/HCC) Unspecified disorder of thyroid documented in this encounter [facility] HealthcareEvaluation note* Diagnosis 35 weeks gestation of Third trimester state, incidental [facility] Diagnosis 36 weeks gestation of Third trimester state, incidental documented in this encounter [facility] HealthcareEvaluation note* Diagnosis 25 weeks gestation of Diabetes mellitus screening Screening for diabetes mellitus First trimester state, incidental [facility]* Diagnosis Third trimester state, incidental 38 weeks gestation of documented [facility]* Diagnosis Second trimester state, incidental Diabetes mellitus screening Screening for diabetes mellitus documented in this encounter [facility] HealthcareEvaluation note* Diagnosis 6 weeks follow-up Pre-operative exam Unspecified pre-operative examination documented in this encounter [facility] HealthcareInstructionsNot on filedocumented [facility] Family History No Family [...] cancer (HCC) Procedures CONSULT TO ENDOCRINOLOGY OFFICE/OUTPATIENT CARE ONE AT [facility] 60 MINUTES Arslan Garcia MD [address] [place] [id number] [place] [address] Referral ID Status Reason Start Date Expiration Date Visits Requested Visits Authorized [id number] Authorized PCP Requested Referral 11/12/2023 11/11/2024 1 1 Additional Source Comments Source Comments (unrecognize d section and content) In the event this informatio n is protected by the Federal Confidentiality of Alcohol and Drug Abuse Patient Records regulations: The Federal rules restrict any use of the information to criminally investigate or prosecute any alcohol or drug abuse [facility] the event this information is protected by the Federal Confidentiality of Alcohol and Drug Abuse Patient Records regulations: The Federal rules restrict any use of the information to criminally investigate or prosecute any alcohol or drug abuse patient.[facility] the event this information is protected by the Federal Confidentiality of Alcohol and Drug Abuse Patient Records regulations: The Federal rules restrict any use of the information to criminally investigate or prosecute any alcohol or drug abuse patient.[facility] the event this information is protected by the Federal Confidentiality of Alcohol and Drug Abuse Patient Records regulations: The Federal rules restrict any use of the information to criminally investigate or prosecute any alcohol or drug abuse patient.[facility] the event this information is protected by the Federal Confidentiality of Alcohol and Drug Abuse Patient Records regulations: The Federal rules restrict any use of the information to criminally investigate or prosecute any alcohol or drug abuse patient.[facility] the event this information is protected by the Federal Confidentiality of Alcohol and Drug Abuse Patient Records regulations: The Federal rules restrict any use of the information to criminally investigate or prosecute any alcohol or drug abuse patient.[facility] the event this information is protected by the Federal Confidentiality of Alcohol and Drug Abuse Patient Records regulations: The Federal rules restrict any use of the information to criminally investigate or prosecute any alcohol or drug abuse patient.[facility] the event this information is protected by the Federal Confidentiality of Alcohol and Drug Abuse Patient Records regulations: The Federal rules restrict any use of the information to criminally investigate or prosecute any alcohol or drug abuse patient.[facility] the event this information is protected by the Federal Confidentiality of Alcohol and Drug Abuse Patient Records regulations: The Federal rules restrict any use of the information to criminally investigate or prosecute any alcohol or drug abuse patient.[facility] the event this information is protected by the Federal Confidentiality of Alcohol and Drug Abuse Patient Records regulations: The Federal rules restrict any use of the information to criminally investigate or prosecute any alcohol or drug abuse patient.[facility] the event this information is protected by the Federal Confidentiality of Alcohol and Drug Abuse Patient Records regulations: The Federal rules restrict any use of the information to criminally investigate or prosecute any alcohol or drug abuse patient.[facility] the event this information is protected by the Federal Confidentiality of Alcohol and Drug Abuse Patient Records regulations: The Federal rules restrict any use of the information to criminally investigate or prosecute any alcohol or drug abuse patient.[facility] Reason for Visit (unrecogniz ed section and content) Reason Comments Phlebotomy Reason Comments Thyroid Cancer Follow up Reason Comments Missed Appointment Reason Comments Phone Visit Reason Comments Appointment Confirmation Reason Comments Amenorrhea Reason Comments Orders Reason Comments Future Appointment Reason Comments Established Patient Reason Comments Patient Update Orders Future Appointment Reason Comments Patient Question Reason Comments Routine Visit Reason Comments Follow-up Pre-op Visit Care Teams (unrecognized sec tion and content) Publications Manager Relationship Specialty Start Date End Date Sara Medellin MD [address] [place] [address] PCP - General Family Medicine 04/11/22 Publications Manager Relationship Specialty Start Date End Date Sara Medellin MD [address] [place] [address] PCP - General Family Medicine 04/11/22 Publications Manager Relationship Specialty Start Date End Date Sara Medlelin MD [address] [place] [address] PCP - General Family Medicine 04/11/22 Publications Manager Relationship Specialty Start Date End Date Sara Medellin MD PCP - General Family Medicine 04/11/22 Publications Manager Relationship Specialty Start Date End Date Sara Medellin MD PCP - General Family Medicine 04/11/22 Publications Manager Relationship Specialty Start Date End Date Sara Medellin MD [address] [place] [address] PCP - General Family Medicine 10/03/22 Publications Manager Relationship Specialty Start Date End Date Sara Medellin MD PCP - General Family Medicine 04/11/22 Publications Manager Relationship Specialty Start Date End Date Sara Medellin MD PCP - General Family Medicine 04/11/22 Publications Manager Relationship Specialty Start Date End Date Sara Medellin MD PCP - General Family Medicine 04/11/22 Publications Manager Relationship Specialty Start Date End Date Sara Medellin MD [address] [facility] [place] [address] PCP - General Family Medicine 10/03/22 Publications Manager Relationship Specialty Start Date End Date Sara Medellin MD [address] [facility] [place] [facility] [place] [address] PCP - General Family Medicine 10/03/22 Publications Manager Relationship Specialty Start Date End Date Sara Medellin MD [address] [facility] [place] [facility] [place] [address] PCP - General Family Medicine 10/03/22 Publications Manager Relationship Specialty Start Date End Date Sara Medellin MD [address] [facility] [address] PCP - General 01/10/24 Publications Manager Relationship Specialty Start Date End Date Sara Medellin MD [address] [facility] [place] [facility] [place] [address] PCP - General Family Medicine 10/03/22 Publications Manager Relationship Specialty Start Date End Date Sara Medellin MD [address] [facility], [facility] PCP - General Family Medicine 10/03/22 Publications Manager Relationship Specialty Start Date End Date Sara Medellin MD [address] [facility], [phone] PCP - General Family Medicine 10/03/22 Publications Manager Relationship Specialty Start Date End Date Sara Medellin MD [address] [facility], [facility] PCP - General Family Medicine 10/03/22 Publications Manager Relationship Specialty Start Date End Date Sara Medellin MD [address] [facility], [phone] PCP - General Family Medicine 10/03/22 Publications Manager Relationship Specialty Start Date End Date Sara Medellin MD [address] [facility], [phone] PCP - General Family Medicine 10/03/22 Publications Manager Relationship Specialty Start Date End Date Sara Medellin MD [address] [facility], [phone] PCP - General Family Medicine 10/03/22 Publications Manager Relationship Specialty Start Date End Date Sara Medellin MD [address] [facility], [phone] PCP - General Family Medicine 10/03/22 Publications Manager Relationship Specialty Start Date End Date Sara Medellin MD [address] [facility] [place] [address] PCP - General Family Medicine 10/03/22 INFORMATION SOURCE (unrecogn ized section and content) DATE CREATED AUTHOR 09/02/2022 [facility] DATE CREATED AUTHOR AUTHOR'S ORGANIZ ATION 01/11/2024 [facility] DATE CREATED AUTHOR AUTHOR'S ORGANIZ ATION 01/13/2024 [facility] DATE CREATED AUTHOR AUTHOR'S ORGANIZ ATION 04/30/2024 [facility] DATE CREATED AUTHOR AUTHOR'S ORGANIZ ATION 05/15/2024 [facility] EPIC FOR RECORDS PERTAINING TO [...] BE BASED ON THE PRIMARY CLINICAL RECORDS. [email or web address] provides no warranty or guarantee of the accuracy or completeness of information in this document.
== END 2024-05-19 16:28 | disposition home or self-care (01) ==
LOC: FBCO 08:56
PROVIDERS: PCP Family Medicine; Visit Provider Obstetrics & Gynecology
DX: Z39.1 Encounter for care and examination of lactating mother (principal)

== ENCOUNTER 2024-05-23 11:03 | Outpatient (OUT) | payer OTHER, SELFPAY ==
--- OUTSIDE RECORDS SUMMARY | 2024-05-23 11:24 | XMS_ITS | CCD ---
Author Organization [facility] Care Team Providers Care Senior Librarian Name Role Phone Sara Medellin MD Primary Care Provider [phone] RAIZA, DR GUERRA Consulting Unavailable HOY ., [...] Unavailable Sara Medellin MD Primary Care Provider [phone] Sara Medellin MD Primary Care Provider [phone] Sara Medellin MD Primary Care Provider [phone] SARA MEDELLIN Primary Care Unavailable Arslan GARCIA Attending Unavailable SARA MEDELLIN Primary Care Unavailable Arslan GARCIA Attending Unavailable SARA MEDELLIN Primary Care Unavailable YFN MICHELLE Attending Unavailable SHANIA, ACOSTA R Referring Unavailable SARA MEDELLIN Primary Care Unavailable SHANIA, ACOSTA R Referring Unavailable SARA MEDELLIN Primary Care Unavailable Sara Medellin MD Primary Care Provider [phone] Sara Medellin Primary Care Unavailable Pay, Misha [...] 04-11-20 22 Hives, Shortness of Breath, Anaphylaxis [facility] (13 sources) Penicillins; Translations: [PENICILLINS] Drug Allergy 04-11-20 22 Hives, Shortness of Breath [facility] (2 sources) Cefaclor Drug Allergy 05-10-19 14 [facility] (2 sources) Penicillins Drug allergy (disorder) 05-10-19 14 [facility] (20 sources) Penicillin G sodium; Translations: [PENICILLIN G SODIUM] Allergy to substance 09-24-19 23 Anaphylaxis [facility] (20 sources) Cephalosporins (Antibiotic); Translations: [CEPHALOSPORINS] [...] on above: Take 1 capsule by mo [facility] once daily. 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 NICKER CURRENT DRUG THERAPY] Onset: 08-24-2022 Episodic Other [...] bacterial skin contaminants 2 Days PERFORMED BY: [place] [address] PATHOLOGIST BOARD STACKER SAMANTHA Walker [facility] Comment on above: Performed By: #### C UU #### [address] ALL CBC WITH AUTO DIFFon BASOPHILS [...] [Mass/Vol] 32.1 g/dL 29.9 - 35.2 g/dL [facility] MCV (RBC) [Entitic vol] 90.8 fL 81.0 - 99.0 fL [facility] MONOCYTES ABSOLUTE AUTO 0.7 [facility] Monocytes/100 WBC (Bld) 4.8 % 1.7 - 12.0 % [facility] NEUTROPHILS ABSOLUTE AUTO 11 High [facility] Neutrophils/100 WBC (Bld) 72.7 % 43.0 - 75.0 % [facility] Platelet mean volume (Bld) [Entitic vol] 10.1 fL 9.5 - 13.5 fL [facility] EO # 0.3 [facility] TB PLT 262 [facility] RBC 3.6 Low [facility] WBC 15.1 High [facility] DRUG SCREEN RAPID (URINE )on 04-18-2024 AMPHETAMINE SCREEN URINE Negative NEGATIVE [facility] BARBITURATES SCREEN URINE Negative NEGATIVE [facility] BENZODIAZEPINES SCREEN URINE Negative NEGATIVE [facility] BUPRENORPHINE SCREEN URINE Negative NEGATIVE [facility] Comment on above: DRUG CLASS TEST [...] 300 ng/mL CANNABINOID SCREEN URINE Negative NEGATIVE [facility] COCAINE SCREEN URINE Negative NEGATIVE [facility] METHADONE SCREEN URINE Negative NEGATIVE [facility] METHAMPHETAMINES SCREEN URINE Negative NEGATIVE [facility] OPIATE SCREEN URINE Negative NEGATIVE [facility] OXYCODONE SCREEN URINE Negative NEGATIVE [facility] PHENCYCLIDINE SCREEN URINE Negative NEGATIVE [facility] TRICYCLIC ANTIDEPRESSANT URINE Negative NEGATIVE [facility] Urinalysis macro (dipstick) panel (U)on 03-31-2024 Bilirubin, UA Negative Negative - 4(70) +++ mg/dL [facility] Blood, UA Negative Negative - 50 Maury/mcL [facility] Clarity, UA Clear [facility] Color, UA Yellow [facility] Glucose, UA Negative Negative - 1999(110) ++++ mg/dL [facility] Interpretation and review of laboratory results Abnormal [facility] Ketones, UA Negative Negative - 160(16) ++++ mg/dL [facility] Leukocytes, UA Positive Negative - 500+++ Fan/mcL [facility] Nitrite, UA Negative Negative - Positive [facility] pH, UA 7 5 - 9 [facility] Protein, UA Trace Negative - 1999(20) ++++ mg/dL [facility] Spec Grav, UA 1.025 1 - 1.03 [facility] Urobilinogen, UA 1.0 0.2 - 12 mg/dL [facility] Urinalysis macro (dipstick) panel (U)on 03-24-2024 Bilirubin, UA Positive Negative - 4(70) +++ mg/dL [facility] Comment on above: moderate Blood, UA Negative Negative - 50 Maury/mcL [facility] Clarity, UA Clear [facility] Color, UA Amanda [facility] Glucose, UA Positive Negative - 1999(110) ++++ mg/dL [facility] Comment on above: 100 Interpretation and review of laboratory results Abnormal [facility] Ketones, UA Positive Negative - 160(16) ++++ mg/dL [facility] Comment on above: 15 Leukocytes, UA Negative Negative - 500+++ Fan/mcL [facility] Nitrite, UA Negative Negative - Positive [facility] pH, UA 6.5 5 - 9 [facility] Protein, UA Positive Negative - 1999(20) ++++ mg/dL [facility] Comment on above: 100 Spec Grav, UA 1.025 1 - 1.03 [facility] Urobilinogen, UA 2.0 0.2 - 12 mg/dL [facility] Referral to Food C linicon 02-26-2024 [facility] Urinalysis macro (dipstick) panel (U)on 02-11-2024 Bilirubin, UA Negative Negative - 4(70) +++ mg/dL [facility] Blood, UA Negative Negative - 50 Maury/mcL [facility] Clarity, UA Clear [facility] Color, UA Yellow [facility] Glucose, UA Negative Negative - 1999(110) ++++ mg/dL [facility] Interpretation and review of laboratory results Abnormal [facility] Ketones, UA Negative Negative - 160(16) ++++ mg/dL [facility] Leukocytes, UA Positive Negative - 500+++ Fan/mcL [facility] Nitrite, UA Negative Negative - Positive [facility] pH, UA 7 5 - 9 [facility] Protein, UA Positive Negative - 2000(20) ++++ mg/dL [facility] Spec Grav, UA 1.02 1 - 1.03 [facility] Urobilinogen, UA 1.0 0.2 - 12 mg/dL [facility] ALL THYROID STIM HORMONEon 1 Interpretation and review of laboratory results Abnormal [facility] TSH Qn 28.537 m[IU]/L High [facility] Urinalysis macro (dipstick) panel (U)on 01-14-2024 Bilirubin, UA Positive Negative - 4(70) +++ mg/dL [facility] Blood, UA Negative Negative - 50 Maury/mcL [facility] Clarity, UA Clear [facility] Color, UA Yellow [facility] Glucose, UA Negative Negative - 1999(110) ++++ mg/dL [facility] Interpretation and review of laboratory results Abnormal [facility] Ketones, UA Positive Negative - 160(16) ++++ mg/dL [facility] Comment on above: small Leukocytes, UA Positive Negative - 500+++ Fan/mcL [facility] Comment on above: small Nitrite, UA Negative Negative - Positive [facility] pH, UA 6.5 5 - 9 [facility] Protein, UA Negative Negative - 1999(20) ++++ mg/dL [facility] Spec Grav, UA 1.020 1 - 1.03 [facility] Urobilinogen, UA 1.0 0.2 - 12 mg/dL [facility] ALL CBC WITH AUTO DIFFon BASOPHILS ABSOLUTE AUTO 0.0 [facility] Basophils/100 WBC (Bld) 0.3 % 0.2 - 2.0 % [facility] Eosinophils/100 WBC (Bld) 2.4 % 0.9 - 7.0 % [facility] Erythrocyte distribution width (RBC) [Ratio] 13.6 % 11.0 - 15.0 % [facility] Hematocrit (Bld) [Volume fraction] 35.0 % Low 36.0 - 48.0 % [facility] Hemoglobin (Bld) [Mass/Vol] 11.8 g/dL Low 12.0 - 16.0 g/dL [facility] IMMATURE GRANULOCYTES ABS AUTO 0.02 [facility] Immature granulocytes/100 WBC (Bld) 0.2 % 0.0 - 0.5 % [facility] Interpretation and review of laboratory results Abnormal [facility] LYMPHOCYTES ABSOLUTE AUTO 2.1 [facility] Lymphocytes/100 WBC (Bld) 23.6 % 20.5 - 60.0 % [facility] MCH (RBC) [Entitic mass] 30.1 pg 26.7 - 34.0 pg [facility] MCHC (RBC) [Mass/Vol] 33.7 g/dL 29.9 - 35.2 g/dL [facility] MCV (RBC) [Entitic vol] 89.3 fL 81.0 - 99.0 fL [facility] MONOCYTES ABSOLUTE AUTO 0.4 [facility] Monocytes/100 WBC (Bld) 3.9 % 1.7 - 12.0 % [facility] NEUTROPHILS ABSOLUTE AUTO 6.2 [facility] Neutrophils/100 WBC (Bld) 69.6 % 43.0 - 75.0 % [facility] Platelet mean volume (Bld) [Entitic vol] 9.8 fL 9.5 - 13.5 fL [facility] TBH EO # 0.2 [facility] TBH PLT 224 [facility] RBC 3.92 Low [facility] WBC 8.9 [facility] Urinalysis macro (dipstick) panel (U)Ordered By: Kerline Clement on 12-19-2023 Bilirubin, UA Negative Negative - 4(70) +++ mg/dL [facility] Blood, UA Negative Negative - 50 Maury/mcL [facility] Clarity, UA Clear [facility] Color, UA Yellow [facility] Glucose, UA Negative Negative - 1999(110) ++++ mg/dL [facility] Interpretation and review of laboratory results Abnormal [facility] Ketones, UA Negative Negative - 160(16) ++++ mg/dL [facility] Leukocytes, UA Moderate Negative - 500+++ Fan/mcL [facility] Nitrite, UA Negative Negative - Positive [facility] Protein, UA Negative Negative - 2000(20) ++++ mg/dL [facility] Spec Grav, UA 0.010 1 - 1.03 [facility] Urobilinogen, UA 1.0 0.2 - 12 mg/dL [facility] Cytology Cervical or vaginal smear or scraping studyon 11-13-2023 [facility] CNPMaru 11-12-2023 CNPN Telephone (RADTSA) AMANDA CORTEZ ([id number]) 1990 F Date Time Provider Department 11/12/23 Arslan GARCIA During your visit today, we recorded the following information about you: Danna Pitts RN 11/12/2023 11:25 AM Signed Spoke to pt. She would like to see endocrinology in [place]. Pt's OB did adjust synthroid recently and has been monitoring labs. TREASURE- please sign pended order. PSS- please arrange visit when order is signed. KAREN Peters, Danna Mcdowell RN Previous Messages ----- Message ----- From: Arslan Garcia MD Sent: 11/02/2023 12:08 PM EDT To: Obi Dunlap; Carlos Nunez [facility] [place] Given what sounds like patient is in [...] [C73] Order(s):CONSULT TO ENDOCRINOLOGY [9007] Order #: [id number]: 1 FUTURE Prescriptions as of 01/09/2024 - [...] Encounter Status:Closed by DANNA PITTS on 11/13/23 [facility] Emelina 07-19-2023 CNPN Telephone (HEMASA) AMANDA CORTEZ ([id number]) 1990 F Date Time Provider Department 07/19/23 EDNA SAL During your visit today, we recorded the following information about you: Edna Sal RN 07/19/2023 10:42 AM Signed Pt called to request labs sent to [facility]. Faxed to central scheduling. Edna Sal [...] Encounter Status:Closed by EDNA SAL on 07/19/23 [facility] 06-25-2023 CNPN Telephone (RADMORGANA) AMANDA CORTEZ ([id number]) 1990 F Date Time Provider Department 06/25/23 [...] Signed Patients lab orders were sent to [facility] and I scheduled her [...] (HCC) [C73] Order(s):T4/THYROXIN E [SQT4] Order #: [id number] FUTURE THYROID STIMULATING HORMONE [SQTSH] Order #: [id number] FUTURE THYROGLOBULIN, SERUM WITH REFLEX TO IA OR LC-MS/MS [SQTHYRORF] Order #: [id number] FUTURE Prescriptions as of 08/23/2023 - levothyroxine [...] Encounter Status:Closed [facility] CORTEZ ([id number]) 1990 F Date Time Provider Department 02/14/23 Arslan GARCIA During your visit today, we recorded the following information about you: Obi Genao 02/14/2023 9:54 AM Signed Patient is scheduled for appointments Arslan Garcia MD [facility] Nurse [place]; Obi Genao 4 months with labs. Orders have been placed in Risk Ident. Allergies As of Date: 02/14/2023 Noted Allergy Reaction CECLOR (CEFACLOR) 04/11/2022 4 - Hives 12 - Shortness of Breath PENICILLINS 04/11/2022 4 - Hives 12 - Shortness of Breath Date Reviewed: 05/04/2022 Reviewed by: Jerman Daisy - Fully Assessed Reason for Visit: Appointment Confirmation [2679] Prescriptions as of 02/14/2023 - levothyroxine (SYNTHROID) [...] Status:Closed by OBI GENAO on 02/14/23 Normal [facility] CBC W Auto Differential pane l (Bld)on 02-01-2023 Basophils (Bld) [#/Vol] 0.04 10*3/uL Normal <0.11 [facility] Comment on above: Order Comment: Speci men Type: BLOOD SPECIMEN Ordering Facility: [facility] Address: [address] [place] [address] Performed By: #### 5 7021-8 #### [facility] CLIA [id number] [address] [place] [address] 38586 Basophils/100 WBC (Bld) 0.5 % Normal [facility] Comment on above: Order Comment: Speci men Type: BLOOD SPECIMEN Ordering Facility: [facility] Address: [address] [place] [address] Performed By: #### 5 7021-8 #### [facility] CLIA [id number] [address] [place] [address] 89873 Differential cell count method Nom (Bld) Auto Normal [facility] Comment on above: Order Comment: Speci men Type: BLOOD SPECIMEN Ordering Facility: [facility] Address: [address] [place] [address] Performed By: #### 5 7021-8 #### [facility] CLIA [id number] [address] [place] [address] 98757 Eosinophils (Bld) [#/Vol] 0.19 10*3/uL Normal <0.46 [facility] Comment on above: Order Comment: Speci men Type: BLOOD SPECIMEN Ordering Facility: [facility] Address: [address] [place] [address] Performed By: #### 5 7021-8 #### [facility] CLIA [id number] [address] [place] [address] 06893 Eosinophils/100 WBC (Bld) 2.5 % Normal [facility] Comment on above: Order Comment: Speci men Type: BLOOD SPECIMEN Ordering Facility: [facility] Address: [address] [place] [address] Performed By: #### 5 7021-8 #### [facility] CLIA [id number] [address] [place] [address] 27701 Erythrocyte distribution width (RBC) [Ratio] 13.3 % Normal 11.5-15.0 [facility] Comment on above: Order Comment: Speci men Type: BLOOD SPECIMEN Ordering Facility: [facility] Address: [address] [place] [address] Performed By: #### 5 7021-8 #### [facility] CLIA [id number] [address] [place] [address] 41542 Hematocrit (Bld) [Volume fraction] 47.7 % High 36.0-46.0 [facility] Comment on above: Order Comment: Speci men Type: BLOOD SPECIMEN Ordering Facility: [facility] Address: [address] [place] [address] Performed By: #### 5 7021-8 #### [facility] CLIA [id number] [address] [place] [address] 95993 Hemoglobin (Bld) [Mass/Vol] 15.6 g/dL High 11.5-15.5 [facility] Comment on above: Order Comment: Speci men Type: BLOOD SPECIMEN Ordering Facility: [facility] Address: [address] [place] [address] Performed By: #### 5 7021-8 #### [facility] CLIA [id number] [address] [place] [address] 63108 Immature granulocytes (Bld) [#/Vol] 0.03 10*3/uL Normal <0.10 [facility] Comment on above: Order Comment: Speci men Type: BLOOD SPECIMEN Ordering Facility: [facility] Address: [address] [place] [address] Performed By: #### 5 7021-8 #### [facility] CLIA [id number] [address] [place] [address] 37926 Immature granulocytes/100 WBC (Bld) 0.4 % Normal [facility] Comment on above: Order Comment: Speci men Type: BLOOD SPECIMEN Ordering Facility: [facility] Address: [address] [place] [address] Performed By: #### 5 7021-8 #### [facility] CLIA [id number] [address] [place] [address] 10616 Lymphocytes (Bld) [#/Vol] 2.30 10*3/uL Normal 1.00-4.00 [facility] Comment on above: Order Comment: Speci men Type: BLOOD SPECIMEN Ordering Facility: [facility] Address: [address] [place] [address] Performed By: #### 5 7021-8 #### [facility] CLIA [id number] [address] [place] [address] 10767 Lymphocytes/100 WBC (Bld) 29.7 % Normal [facility] Comment on above: Order Comment: Speci men Type: BLOOD SPECIMEN Ordering Facility: [facility] Address: [address] [place] [address] Performed By: #### 5 7021-8 #### [facility] CLIA [id number] [address] [place] [address] 18335 MCH (RBC) [Entitic mass] 28.8 pg Normal 26.0-34.0 [facility] Comment on above: Order Comment: Speci men Type: BLOOD SPECIMEN Ordering Facility: [facility] Address: [address] [place] [address] Performed By: #### 5 7021-8 #### [facility] CLIA [id number] [address] [place] [address] 16496 MCHC (RBC) [Mass/Vol] 32.7 g/dL Normal 30.5-36.0 [facility] Comment on above: Order Comment: Speci men Type: BLOOD SPECIMEN Ordering Facility: [facility] Address: [address] [place] [address] Performed By: #### 5 7021-8 #### [facility] CLIA [id number] [address] [place] [address] 89981 MCV (RBC) [Entitic vol] 88.2 fL Normal 80.0-100.0 [facility] Comment on above: Order Comment: Speci men Type: BLOOD SPECIMEN Ordering Facility: [facility] Address: [address] [place] [address] Performed By: #### 5 7021-8 #### [facility] CLIA [id number] [address] [place] [address] 80553 Monocytes (Bld) [#/Vol] 0.49 10*3/uL Normal <0.87 [facility] Comment on above: Order Comment: Speci men Type: BLOOD SPECIMEN Ordering Facility: [facility] Address: [address] [place] [address] Performed By: #### 5 7021-8 #### [facility] CLIA [id number] [address] [place] [address] 45595 Monocytes/100 WBC (Bld) 6.3 % Normal [facility] Comment on above: Order Comment: Speci men Type: BLOOD SPECIMEN Ordering Facility: [facility] Address: [address] [place] [address] Performed By: #### 5 7021-8 #### [facility] CLIA [id number] [address] [place] [address] 61855 Neutrophils (Bld) [#/Vol] 4.70 10*3/uL Normal 1.45-7.50 [facility] Comment on above: Order Comment: Speci men Type: BLOOD SPECIMEN Ordering Facility[facility] Address: [address] [place] [address] Performed By: #### 5 7021-8 #### [facility] CLIA [id number] [address] [place] [address] 69226 Neutrophils/100 WBC (Bld) 60.6 % Normal [facility] Comment on above: Order Comment: Speci men Type: BLOOD SPECIMEN Ordering Facility[facility] Address: [address] [place] [address] Performed By: #### 5 7021-8 #### [facility] CLIA [id number] [address] [place] [address] Nucleated RBC (Bld) [#/Vol] 10*3/uL Normal <0.01 [facility] Comment on above: Order Comment: Speci men Type: BLOOD SPECIMEN Ordering Facility[facility] Address: [address] [place] [address] Performed By: #### 5 7021-8 #### [facility] CLIA [id number] [address] [place] [address] 54764 Nucleated RBC/100 WBC (Bld) [Ratio] 0.0 /100 WBC Normal [facility] Comment on above: Order Comment: Speci men Type: BLOOD SPECIMEN Ordering Facility[facility] Address: [address] [place] [address] Performed By: #### 5 7021-8 #### [facility] CLIA [id number] [address] [place] [address] 19557 Platelet mean volume (Bld) [Entitic vol] 9.6 fL Normal 9.0-12.7 [facility] Comment on above: Order Comment: Speci men Type: BLOOD SPECIMEN Ordering Facility[facility] Address: [address] [place] [address] Performed By: #### 5 7021-8 #### [facility] CLIA [id number] [address] [place] [address] 96191 Platelets (Bld) [#/Vol] 248 10*3/uL Normal 150-400 [facility] Comment on above: Order Comment: Speci men Type: BLOOD SPECIMEN Ordering Facility: [facility] Address: [address] [place] [address] Performed By: #### 5 7021-8 #### [facility] CLIA [id number] [address] [place] [address] 54373 RBC (Bld) [#/Vol] 5.41 10*6/uL High 3.90-5.20 [facility] Comment on above: Order Comment: Speci men Type: BLOOD SPECIMEN Ordering Facility[facility] Address: [address] [place] [id number] Performed By: #### 5 7021-8 #### [facility] CLIA [id number] [address] [place] [address] 16785 WBC (Bld) [#/Vol] 7.75 10*3/uL Normal 3.70-11.00 [facility] Comment on above: Order Comment: Speci men Type: BLOOD SPECIMEN Ordering Facility: [facility] Address: [place] [address] Performed By: #### 5 7021-8 #### [facility] CLIA [id number] [address] [place] [address] 37691 T3 SerPl-mCncon 02-01-2023 T3 [Mass/Vol] 123 ng/dL Normal 79-165 [facility] Comment on above: Order Comment: Speci men Type: BLOOD SPECIMEN Ordering Facility: [facility] Address: [address] [place] [address] Performed By: #### 3 053-6, 3016-3, 3026-2 #### [facility] CLIA [id number] [address] [place] [address] [place] T4 SerPl-mCncon 02-01-2023 T4 [Mass/Vol] 11.9 ug/dL High 5.5-10.2 [facility] Comment on above: Order Comment: Speci men Type: BLOOD SPECIMEN Ordering Facility[facility] Address: [address] [place] [address] Performed By: #### 3 053-6, 3016-3, 3026-2 #### [facility] CLIA [id number] [address] [place] [address] [place] THYROGLOBULIN BY MASS SPECTR OMETRYon 02-01-2023 THYROGLOBULIN, LC-MS/MS <0.5 Low 1.3-31.8 [facility] Comment on above: Order Comment: Speci men Type: BLOOD SPECIMEN Ordering Facility: [facility] Address: [address] [place] [address] Result Comment: Results obtained with different test [...] developed and its performance characteristics determined by [employer]. It has not been cleared or approved by the [place] Food and Drug Administration. This test was performed in a CLIA certified laboratory and is intended for clinical purposes. Performed By: [employer] [address] [place] [address] Flattening Press Operator: Prem Willis MD, PhD CLIA Number: [id number] Performed By: #### [facility] #### [facility] CLIA [id number] [address] [place] [address]000 TSH [facility] 02-01-2023 TSH Qn 0.960 m[IU]/L Normal 0.270-4.200 [facility] Comment on above: Order Comment: Speci men Type: BLOOD SPECIMEN Ordering Facility: [facility] Address: [address] [place] [id number] Result Comment: If t he patient is , TSH reference range varies by gestational period: First Trimester (weeks 9-12): 0.180-2.990 mIU/L Second Trimester: 0.110-3.980 mIU/L Third Trimester: 0.480-4.710 mIU/L Suman Graf et al. A Practical Approach for the Verifications and Determination of Site- and Trimester-Specific Reference Intervals for Thyroid Function tests in . Thyroid, 2019:29:3:412-420. Rajesh Holman, et al. 2017 Guidelines of the [employer] for the Diagnosis and Management of Thyroid Disease during and the . Thyroid, 2017:27:3:315-389. Performed By: #### 3 053-6, 3016-3, 3026-2 #### [facility] CLIA [id number] [address] [place] [address] [place] PREG QUANT HCGon 08-17-2022 HCG QUANT 1 mIU/mL Normal [facility] Comment on above: Performed By: #### P REGQNT #### [facility] [address] [place] [address] Dr. Prashant Kang HCG RANGE SEE BELOW Normal [facility] Comment on above: Result Comment: 5-50 0.2-1 WEEK 50-500 1-2 WEEKS 100-5,000 2-3 WEEKS 500-10,000 3-4 WEEKS 1,000-50,000 4-5 WEEKS 10,000-100,000 5-6 WEEKS 15,000-200,000 6-8 WEEKS 10,000-100,000 2-3 MONTHS Performed By: #### P REGQNT #### [facility] [address] [place] [address] Dr. Prashant Kang PREG QUANT HCGon 07-04-2022 HCG QUANT <1 Normal [facility] Comment on above: Performed By: #### P REGQNT #### [facility] [address] [place] [address] Dr. Prashant Kang HCG RANGE SEE BELOW Normal [facility] Comment on above: Result Comment: 5-50 0.2-1 WEEK 50-500 1-2 WEEKS 100-5,000 2-3 WEEKS 500-10,000 3-4 WEEKS 1,000-50,000 4-5 WEEKS 10,000-100,000 5-6 WEEKS 15,000-200,000 6-8 WEEKS 10,000-100,000 2-3 MONTHS Performed By: #### P REGQNT #### [facility] [address] [place] [address] Dr. Prashant Kang PREG QUANT HCGon 05-16-2022 HCG QUANT <1 Normal [facility] Comment on above: Performed By: #### P TT, PT #### [facility] [address] [place] [address] Dr. Prashant Kang HCG RANGE SEE BELOW Normal [facility] Comment on above: Result Comment: 5-50 0.2-1 WEEK 50-500 1-2 WEEKS 100-5,000 2-3 WEEKS 500-10,000 3-4 WEEKS 1,000-50,000 4-5 WEEKS 10,000-100,000 5-6 WEEKS 15,000-200,000 6-8 WEEKS 10,000-100,000 2-3 MONTHS Performed By: #### P TT, PT #### [facility] [address] [place] [address] Dr. Prashant Kang PREG QUANT HCGon 05-08-2022 HCG QUANT <1 Normal [facility] Comment on above: Performed By: #### P REGQNT #### [facility] [address] [place] [address] Dr. Prashant Kang HCG RANGE SEE BELOW Normal [facility] Comment on above: Result Comment: 5-50 0.2-1 WEEK 50-500 1-2 WEEKS 100-5,000 2-3 WEEKS 500-10,000 3-4 WEEKS 1,000-50,000 4-5 WEEKS 10,000-100,000 5-6 WEEKS 15,000-200,000 6-8 WEEKS 10,000-100,000 2-3 MONTHS Performed By: #### P REGQNT #### [facility] [address] [place] [address] Dr. Prashant Kang CALCIUMon 03-08-2022 Calcium [Mass/Vol] 8.6 mg/dL Normal 8.5-10.1 [facility] Comment on above: Performed By: #### C A #### [facility] [address] [place] [address] Dr. Prashant Kang CALCIUMon 03-07-2022 Calcium [Mass/Vol] 8.4 mg/dL Critically low 8.5-10.1 [facility] Comment on above: Performed By: #### C A #### [facility] [address] [place] [address] Dr. Prashant Kang PREG HCG QUALon 03-07-2022 , QUAL Negative Normal NEGATIVE [facility] Comment on above: Performed By: #### P REG #### [facility] [address] [place] [address] Dr. Prashant Kang Covid-19 PCR (CVDTB)on SARS-CoV-2 (COVID-19) RNA DENEEN+probe Ql (Unsp spec) Not detected Normal NOT DETECTED [facility] Comment on above: Result Comment: This test is not yet approved or cleared by the [place] FDA. When there are no FDA-approved or cleared tests available, and other criteria are met, FDA can make tests available under an emergency access mechanism called an Emergency Use Authorization (EUA). The EUA for this test is supported by the Global Manager of Health and Human Service's (HHS's) [...] SARS-CoV-2. Performed By: #### C VDTBH #### [facility] [address] [place] [address] Dr. Prashant Kang CALCIUMon 02-24-2022 Calcium [Mass/Vol] 8.8 mg/dL Normal 8.5-10.1 [facility] Comment on above: Performed By: #### P TT, PT #### [facility] [address] [place] [address] Dr. Prashant Kang CBC AUTO DIFFon 02-24-2022 BASO # 0.0 103/ul Normal 0.0-0.1 [facility] Comment on above: Performed By: #### P TT, PT #### [facility] [address] [place] [address] Dr. Prashant Kang Basophils/100 WBC (Bld) 0.3 % Normal 0.2-2.0 [facility] Comment on above: Performed By: #### P TT, PT #### [facility] [address] [place] [address] Dr. Prashant Kang EO # 0.1 103/ul Normal 0.0-0.7 [facility] Comment on above: Performed By: #### P TT, PT #### [facility] [address] [place] [address] Dr. Prashant Kang Eosinophils/100 WBC (Bld) 1.5 % Normal 0.9-7.0 [facility] Comment on above: Performed By: #### P TT, PT #### [facility] [address] [place] [address] Dr. Prashant Kang Erythrocyte distribution width (RBC) [Ratio] 13.8 % Normal 11.0-15.0 [facility] Comment on above: Performed By: #### P TT, PT #### [facility] [address] [place] [address] Dr. Prashant Kang Hematocrit (Bld) [Volume fraction] 45.5 % Normal 36.0-48.0 [facility] Comment on above: Performed By: #### P TT, PT #### [facility] [address] [place] [address] Dr. Prashant Kang Hemoglobin (Bld) [Mass/Vol] 14.6 g/dL Normal 12.0-16.0 [facility] Comment on above: Performed By: #### P TT, PT #### [facility] [address] [place] [address] Dr. Prashant Kang IG # 0.02 10e3/ul Normal 0.00-0.03 [facility] Comment on above: Performed By: #### P TT, PT #### [facility] [address] [place] [address] Dr. Prashant Kang IG % 0.3 % Normal 0.0-0.5 [facility] Comment on above: Performed By: #### P TT, PT #### [facility] [address] [place] [address] Dr. Prashant Kang LYMPH # 1.6 103/ul Normal 1.2-3.8 [facility] Comment on above: Performed By: #### P TT, PT #### [facility] [address] [place] [address] Dr. Prashant Kang Lymphocytes/100 WBC (Bld) 23.5 % Normal 20.5-60.0 [facility] Comment on above: Performed By: #### P TT, PT #### [facility] [address] [place] [address] Dr. Prashant Kang MANUAL DIFF REQ NO Normal [facility] Comment on above: Performed By: #### P TT, PT #### [facility] [address] [place] [address] Dr. Prashant Kang MCH (RBC) [Entitic mass] 26.5 pg Critically low 26.7-34.0 [facility] Comment on above: Performed By: #### P TT, PT #### [facility] [address] [place] [address] Dr. Prashant Kang MCHC (RBC) [Mass/Vol] 32.1 g/dL Normal 29.9-35.2 [facility] Comment on above: Performed By: #### P TT, PT #### [facility] [address] [place] [address] Dr. Prashant Kang MCV (RBC) [Entitic vol] 82.7 fL Normal 81.0-99.0 [facility] Comment on above: Performed By: #### P TT, PT #### [facility] [address] [place] [address] Dr. Prashant Kang MONO # 0.5 103/ul Normal 0.3-0.8 [facility] Comment on above: Performed By: #### P TT, PT #### [facility] [address] [place] [address] Dr. Prashant Kang Monocytes/100 WBC (Bld) 7.5 % Normal 1.7-12.0 [facility] Comment on above: Performed By: #### P TT, PT #### [facility] [address] [place] [address] Dr. Prashant Kang NEUT # 4.6 103/ul Normal 1.4-6.5 [facility] Comment on above: Performed By: #### P TT, PT #### [facility] [address] [place] [address] Dr. Prashant Kang Neutrophils/100 WBC (Bld) 66.9 % Normal 43.0-75.0 [facility] Comment on above: Performed By: #### P TT, PT #### [facility] [address] [place] [address] Dr. Prashant Kang Platelet mean volume (Bld) [Entitic vol] 9.9 fL Normal 9.5-13.5 [facility] Comment on above: Performed By: #### P TT, PT #### [facility] [address] [place] [address] Dr. Prashant Kang PLT 239 103/ul Normal 150-450 [facility] Comment on above: Performed By: #### P TT, PT #### [facility] [address] [place] [address] Dr. Prashant Kang RBC 5.50 106/ul Critically high 4.20-5.40 [facility] Comment on above: Performed By: #### P TT, PT #### [facility] [address] [place] [address] Dr. Prashant Kang WBC 6.8 103/ul Normal 4.0-11.0 [facility] Comment on above: Performed By: #### P TT, PT #### [facility] [address] [place] [address] Dr. Prashant Kang MAGNESIUMon 02-24-2022 Magnesium [Mass/Vol] 2.0 mg/dL Normal 1.8-2.4 [facility] Comment on above: Performed By: #### P TT, PT #### [facility] [address] [place] [address] Dr. Prashant Kang PHOSPHORUSon 02-24-2022 Phosphate [Mass/Vol] 3.3 mg/dL Normal 2.6-4.7 [facility] Comment on above: Performed By: #### P TT, PT #### [facility] [address] [place] [address] Dr. Prashant Kang PROTIMEon 02-24-2022 INR Coag (PPP) [Relative time] 1.01 {INR} Normal [facility] Comment on above: Performed By: #### P TT, PT #### [facility] [address] [place] [address] Dr. Prashant Kang INR GUIDELINES SEE BELOW Normal [facility] Comment on above: Result Comment: SALIMA RED INR: 2.0 - 3.0 CONDITIONS NOT LISTED BELOW 2.5 - 3.5 FOR PROSTHETIC HEART VALVE REPLACEMENT 2.5 - 3.5 RECURRENT THROMBOSIS Performed By: #### P TT, PT #### [facility] [address] [place], [place] [id number] Dr. Prashant Kang PT Coag (PPP) [Time] 10.9 s Normal 9.0-11.6 [facility] Comment on above: Performed By: #### P TT, PT #### [facility] [address] [place] [address] Dr. Prashant Kang PTTon 02-24-2022 aPTT Coag (Bld) [Time] 28.9 s Normal 22.3-36.2 [facility] Comment on above: Performed By: #### P TT, PT #### [facility] [address] [place] [address] Dr. Prashant Kang TSHon 02-24-2022 TSH 1.163 uIU/mL Normal 0.358-3.740 [facility] Comment on above: Performed By: #### P TT, PT #### [facility] [address] [place] [address] Dr. Prashant Kang US THYROID FN ASP BXon 02-09 US THYROID FN ASP BX Begin Addendum #1 COLLECTED DATE/TIME: 02/03/2022 11:36 EDT Final Diagnosis Report for [facility] [place] (A/B) THYROID ISTHMUS NODULE, FINE NEEDLE [...] 2. Pathology results are pending. Normal [facility] CT NECK ST W CONon [...] SHAILESH EMERY Date: 2022-01-20 13:05 Normal [facility] US THYROIDon 01-20-2022 US THYROID [...] isthmus nodule. Consider fine-needle aspiration TI-RADS: The [employer] TI-RADS committee's white paper recommendations for thyroid lesions classified as TR4 (moderately suspicious) are listed below: > 1.0 cm. Follow-up ultrasound in 1, 2, 3, and 5 years. > 1.5 cm. FNA. J. Am More Radiol 2017;14:587-595. Electronically authenticated by: SHAILESH EMERY Date: 2022-01-20 21:46 Normal [facility] CBC AUTO DIFFon 01-08-2022 BASO # 0.0 103/ul Normal 0.0-0.1 [facility] Comment on above: Performed By: #### P TT, PT #### [facility] [address] [place] [address] Dr. Prashant Kang Basophils/100 WBC (Bld) 0.4 % Normal 0.2-2.0 [facility] Comment on above: Performed By: #### P TT, PT #### [facility] [address] [place] [address] Dr. Prashant Kang EO # 0.2 103/ul Normal 0.0-0.7 [facility] Comment on above: Performed By: #### P TT, PT #### [facility] [address] [place] [address] Dr. Prashant Kang Eosinophils/100 WBC (Bld) 3.4 % Normal 0.9-7.0 [facility] Comment on above: Performed By: #### P TT, PT #### [facility] [address] [place] [address] Dr. Prashant Kang Erythrocyte distribution width (RBC) [Ratio] 14.6 % Normal 11.0-15.0 [facility] Comment on above: Performed By: #### P TT, PT #### [facility] [address] [place] [address] Dr. Prashant Kang Hematocrit (Bld) [Volume fraction] 42.9 % Normal 36.0-48.0 [facility] Comment on above: Performed By: #### P TT, PT #### [facility] [address] [place] [address] Dr. Prashant Kang Hemoglobin (Bld) [Mass/Vol] 13.4 g/dL Normal 12.0-16.0 [facility] Comment on above: Performed By: #### P TT, PT #### [facility] [address] [place] [address] Dr. Prashant Kang IG # 0.02 10e3/ul Normal 0.00-0.03 [facility] Comment on above: Performed By: #### P TT, PT #### [facility] [address] [place] [address] Dr. Prashant Kang IG % 0.3 % Normal 0.0-0.5 [facility] Comment on above: Performed By: #### P TT, PT #### [facility] [address] [place] [address] Dr. Prashant Kang LYMPH # 2.0 103/ul Normal 1.2-3.8 [facility] Comment on above: Performed By: #### P TT, PT #### [facility] [address] [place] [address] Dr. Prashant Kang Lymphocytes/100 WBC (Bld) 29.7 % Normal 20.5-60.0 [facility] Comment on above: Performed By: #### P TT, PT #### [facility] [address] [place] [address] Dr. Prashant Kang MANUAL DIFF REQ NO Normal [facility] Comment on above: Performed By: #### P TT, PT #### [facility] [address] [place] [address] Dr. Prashant Kang MCH (RBC) [Entitic mass] 26.3 pg Critically low 26.7-34.0 [facility] Comment on above: Performed By: #### P TT, PT #### [facility] [address] [place] [address] Dr. Prashant Kang MCHC (RBC) [Mass/Vol] 31.2 g/dL Normal 29.9-35.2 [facility] Comment on above: Performed By: #### P TT, PT #### [facility] [address] [place] [address] Dr. Prashant Kang MCV (RBC) [Entitic vol] 84.1 fL Normal 81.0-99.0 [facility] Comment on above: Performed By: #### P TT, PT #### [facility] [address] [place] [address] Dr. Prashant Kang MONO # 0.6 103/ul Normal 0.3-0.8 [facility] Comment on above: Performed By: #### P TT, PT #### [facility] [address] [place] [address] Dr. Prashant Kang Monocytes/100 WBC (Bld) 8.7 % Normal 1.7-12.0 [facility] Comment on above: Performed By: #### P TT, PT #### [facility] [address] [place] [address] Dr. Prashant Kang NEUT # 3.9 103/ul Normal 1.4-6.5 [facility] Comment on above: Performed By: #### P TT, PT #### [facility] [address] [place] [address] Dr. Prashant Kang Neutrophils/100 WBC (Bld) 57.5 % Normal 43.0-75.0 [facility] Comment on above: Performed By: #### P TT, PT #### [facility] [address] [place] [address] Dr. Prashant Kang Platelet mean volume (Bld) [Entitic vol] 9.9 fL Normal 9.5-13.5 [facility] Comment on above: Performed By: #### P TT, PT #### [facility] [address] [place] [address] Dr. Prashant Kang PLT 241 103/ul Normal 150-450 [facility] Comment on above: Performed By: #### P TT, PT #### [facility] [address] [place] [address] Dr. Prashant Kang RBC 5.10 106/ul Normal 4.20-5.40 [facility] Comment on above: Performed By: #### P TT, PT #### [facility] [address] [place] [address] Dr. Prashant Kang WBC 6.8 103/ul Normal 4.0-11.0 [facility] Comment on above: Performed By: #### P TT, PT #### [facility] [address] [place] [address] Dr. Prashant Kang GROUP A STREP CULTUREon 12-29 S. pyogenes Ag Ql (Unsp spec) Culture Observations: NEGATIVE FOR GROUP A STREPTOCOCCUS. Normal [facility] Comment on above: Performed By: #### P TT, PT #### [facility] [address] [place] [address] Dr. Prashant Kang PROF 14(COMP METB)on 022 Albumin [Mass/Vol] 3.6 g/dL Normal 3.4-5.0 [facility] Comment on above: Performed By: #### C MP #### [facility] [address] [place] [address] Dr. Prashant Kang Albumin/Globulin [Mass ratio] 0.8 {ratio} Normal [facility] Comment on above: Performed By: #### C MP #### [facility] [address] [place] [address] Dr. Prashant Kang ALP [Catalytic activity/Vol] 74 U/L Normal 46-116 [facility] Comment on above: Performed By: #### C MP #### [facility] [address] [place] [address] Dr. Prashant Kang ALT [Catalytic activity/Vol] 40 U/L Normal 14-59 [facility] Comment on above: Performed By: #### C MP #### [facility] [address] [place] [address] Dr. Prashant Kang Anion gap [Moles/Vol] 14.0 mmol/L Normal [facility] Comment on above: Performed By: #### C MP #### [facility] [address] [place] [address] Dr. Prashant Kang AST [Catalytic activity/Vol] 31 U/L Normal 15-37 [facility] Comment on above: Performed By: #### C MP #### [facility] [address] [address] [address] Prashant Kang Bilirubin [Mass/Vol] 0.4 mg/dL Normal 0.2-1.0 [facility] Comment on above: Performed By: #### C MP #### [facility] [address] [address] [address] Prashant Kang Calcium [Mass/Vol] 8.8 mg/dL Normal 8.5-10.1 [facility] Comment on above: Performed By: #### C MP #### [facility] [address] [address] [address] Prashant Kang Chloride [Moles/Vol] 105 mmol/L Normal 98-107 [facility] Comment on above: Performed By: #### C MP #### [facility] [address] [place] [address] Dr. Prashant Kang CO2 [Moles/Vol] 26.6 mmol/L Normal 21.0-32.0 [facility] Comment on above: Performed By: #### C MP #### [facility] [address] [address] [address] Prashant Kang Creatinine [Mass/Vol] 0.80 mg/dL Normal 0.55-1.02 [facility] Comment on above: Performed By: #### C MP #### [facility] [address] [place] [address] Dr. Prashant Kang EGFR-AF GABONESE >60 Normal >=60 [facility] Comment on above: Performed By: #### C MP #### [facility] [address] [address] [address] Prashant Kang EGFR-NON AF GABONESE >60 Normal >=60 [facility] Comment on above: Performed By: #### C MP #### [facility] [address] [place] [address] Dr. Prashant Kang Globulin (S) [Mass/Vol] 4.3 g/dL Normal [facility] Comment on above: Performed By: #### C MP #### [facility] [address] [place] [address] Dr. Prashant Kang Glucose [Mass/Vol] 101 mg/dL Normal 74-106 [facility] Comment on above: Performed By: #### C MP #### [facility] [address] [address] [address] Prashant Kang Potassium [Moles/Vol] 4.6 mmol/L Normal 3.5-5.1 [facility] Comment on above: Performed By: #### C MP #### [facility] [address] [address] [address] Prashant Kang Protein [Mass/Vol] 7.9 g/dL Normal 6.4-8.2 [facility] Comment on above: Performed By: #### C MP #### [facility] [address] [address] [address] Prashant Kang Sodium [Moles/Vol] 141 mmol/L Normal 136-145 [facility] Comment on above: Performed By: #### C MP #### [facility] [address] [address] [address] Prashant Kang Urea nitrogen [Mass/Vol] 11.0 mg/dL Normal 7.0-18.0 [facility] Comment on above: Performed By: #### C MP #### [facility] [address] [place] [address] Dr. Prashant Kang Urea nitrogen/Creatinine [Mass ratio] 13.8 mg/mg Normal [facility] Comment on above: Performed By: #### C MP #### [facility] [address] [place] [address] Dr. Prashant Kang STREPT SCREENon 01-08-2022 STREP SCREEN A Negative Normal NEGATIVE [facility] Comment on above: Performed By: #### P TT, PT #### [facility] [address] [place] [address] Dr. Prashant Kang XR NECK SOFT TISSUEon [...] MIKE BARNETT Date: 2022-01-08 04:43 Normal [facility] Covid-19 PCR (CVDTBH)on SARS-CoV-2 (COVID-19) RNA DENEEN+probe Ql (Unsp spec) Not detected Normal NOT DETECTED [facility] Comment on above: Result Comment: This test is not yet approved or cleared by the [place] FDA. When there are no FDA-approved or cleared tests available, and other criteria are met, FDA can make tests available under an emergency access mechanism called an Emergency Use Authorization (EUA). The EUA for this test is supported by the Global Manager of Health and Human Service's (HHS's) [...] Performed By: #### P TT, PT #### [facility] [address] [place] [address] Dr. Prashant Kang Vital Signs Date Time Vital Sign Value Performing Clinician Faci lity 05-12-2024 13:54-0500 Body mass index (BMI) [Ratio] 37.7 kg/m2 [employer] Work Phone: [facility] 05-12-2024 13:54-0500 Body weight 93.5 kg [employer] Work Phone: [facility] 05-12-2024 13:54-0500 Diastolic blood pressure 60 mm[Hg] [employer] Work Phone: [facility] 05-12-2024 13:54-0500 Systolic blood pressure 120 mm[Hg] Acosta Shania DO Work Phone: [facility] 04-14-2024 13:52-0500 Body mass index (BMI) [Ratio] 39.69 kg/m2 Acosta Shania DO Work Phone: [facility] 04-14-2024 13:52-0500 Body weight 98.43 kg Acosta Shania DO Work Phone: [facility] 04-14-2024 13:52-0500 Diastolic blood pressure 72 mm[Hg] Acosta Shania DO Work Phone: [facility] 04-14-2024 13:52-0500 Systolic blood pressure 122 mm[Hg] Acosta Shania DO Work Phone: [facility] 03-31-2024 13:44-0500 Body mass index (BMI) [Ratio] 40.75 kg/m2 Acosta Shania DO Work Phone: [facility] 03-31-2024 13:44-0500 Body weight 101.06 kg Acosta Shania DO Work Phone: [facility] 03-31-2024 13:44-0500 Diastolic blood pressure 70 mm[Hg] Acosta Shania DO Work Phone: [facility] 03-31-2024 13:44-0500 Systolic blood pressure 120 mm[Hg] Acosta Shania DO Work Phone: [facility] 03-24-2024 13:16-0500 Body mass index (BMI) [Ratio] 40.02 kg/m2 Acosta Shania DO Work Phone: [facility] 03-24-2024 13:16-0500 Body weight 99.25 kg Acosta Shania DO Work Phone: [facility] 03-24-2024 13:16-0500 Diastolic blood pressure 70 mm[Hg] Acosta Shania DO Work Phone: [facility] 03-24-2024 13:16-0500 Systolic blood pressure 120 mm[Hg] Acosta Shania DO Work Phone: [facility] 03-10-2024 13:45-0500 Body mass index (BMI) [Ratio] 40.38 kg/m2 Acosta Shania DO Work Phone: [facility] 03-10-2024 13:45-0500 Body weight 100.15 kg Acosta Shania DO Work Phone: [facility] 03-10-2024 13:45-0500 Diastolic blood pressure 76 mm[Hg] Acosta Shania DO Work Phone: [facility] 03-10-2024 13:45-0500 Systolic blood pressure 114 mm[Hg] Acosta Shania DO Work Phone: [facility] 02-25-2024 14:08-0400 Body mass index (BMI) [Ratio] 39.87 kg/m2 Kim YAO Work Phone: [facility] 02-25-2024 14:08-0400 Body weight 98.88 kg Kim Ml PA Work Phone: [facility] 02-25-2024 14:08-0400 Diastolic blood pressure 70 mm[Hg] Kmi Ml PA Work Phone: [facility] 02-25-2024 14:08-0400 Systolic blood pressure 114 mm[Hg] Kim Mckeon PA Work Phone: [facility] 02-11-2024 11:10-0400 Body mass index (BMI) [Ratio] 40.2 kg/m2 Acosta Shania DO Work Phone: [facility] 02-11-2024 11:10-0400 Body weight 99.7 kg Acosta Shania DO Work Phone: [facility] 02-11-2024 11:10-0400 Diastolic blood pressure 64 mm[Hg] Acosta Shania DO Work Phone: [facility] 02-11-2024 11:10-0400 Systolic blood pressure 112 mm[Hg] Acosta Shania DO Work Phone: [facility] 01-14-2024 13:36-0400 Body mass index (BMI) [Ratio] 39.1 kg/m2 Acosta Shania DO Work Phone: [facility] 01-14-2024 13:36-0400 Body weight 96.98 kg Acosta Shania DO Work Phone: [facility] 01-14-2024 13:36-0400 Diastolic blood pressure 60 mm[Hg] Acosta Shania DO Work Phone: [facility] 01-14-2024 13:36-0400 Systolic blood pressure 120 mm[Hg] Acosta Shania DO Work Phone: [facility] 12-17-2023 14:20-0400 Body mass index (BMI) [Ratio] 39.51 kg/m2 Acosta Shania DO Work Phone: [facility] 12-17-2023 14:20-0400 Body weight 97.98 kg Acosta Shania DO Work Phone: [facility] 12-17-2023 14:20-0400 Diastolic blood pressure 80 mm[Hg] Acosta Shania DO Work Phone: [facility] 12-17-2023 14:20-0400 Systolic blood pressure 124 mm[Hg] Acosta Shania DO Work Phone: [facility] 06-12-2023 13:54-0500 Body mass index (BMI) [Ratio] 40.6 kg/m2 Acosta Shania DO Work Phone: [facility] 06-12-2023 13:54-0500 Body weight 100.7 kg Acosta Shania DO Work Phone: [facility] 06-12-2023 13:54-0500 Diastolic blood pressure 74 mm[Hg] Acosta Shania DO Work Phone: [facility] 06-12-2023 13:54-0500 Systolic blood pressure 118 mm[Hg] Acosta Shania DO Work Phone: [facility] 05-04-2022 09:40-0500 Body temperature 97.2 [degF] JONNY Garcia MD Work Phone: [facility] 05-04-2022 09:40-0500 Body weight 88.81 kg JONNY Garcia MD Work Phone: [facility] 05-04-2022 09:40-0500 Diastolic blood pressure 73 mm[Hg] NA Jose BULLOCK Work Phone: [facility] 05-04-2022 09:40-0500 Heart rate 67 /min JONNY Garcia MD Work Phone: [facility] 05-04-2022 09:40-0500 Respiratory rate 16 /min JONNY Garcia MD Work Phone: [facility] 05-04-2022 09:40-0500 SaO2% (BldA) [Mass fraction] 100 % JONNY Garcia MD Work Phone: [facility] 05-04-2022 09:40-0500 Systolic blood pressure 113 mm[Hg] NA Jose BULLOCK Work Phone: [facility] Encounters Encounter Date Encounter Type Care Provider Facility Start: 05-12-2024 End: 05-12-2024 Office outpatient visit 15 minutes Acosta Shania DO Work Phone: [facility] Comment on above: 6 weeks f ollow-up; Pre-operative exam Start: 05-12-2024 End: 05-12-2024 Preprocedural examination done Acosta Shania DO Work Phone: [facility] Start: 05-12-2024 End: 05-12-2024 ambulatory ACOSTA SHANIA Not Available Start: 04-26-2024 End: 04-26-2024 ambulatory Sara Medellin Facility:[facility] Start: 04-19-2024 End: 04-19-2024 Clinisync Result Encounter [...] 02-26-2024 End: 02-26-[address] [facility] Comment on above: [...] Bamboo flowsheet Acosta Shania DO Work Phone: [facility] Start: 02-11-2024 End: 02-11-2024 Bamboo flowsheet Acosta Shania DO Work Phone: [facility] Start: 02-11-2024 End: 02-11-2024 Office outpatient visit 15 minutes Acosta Shania DO Work Phone: [facility] Comment on above: Third trimester preg yogesh; Thyroid disease (CMS/HCC); 29 weeks gestation of ; History of placental abruption; Non compliance w medication regimen Start: 02-11-2024 End: 02-11-2024 ambulatory ACOSTA SHANIA Not Available Start: 02-08-2024 End: 02-08-2024 Clinisync Result Encounter Acosta Shania DO Work Phone: [facility] External Department Unsolicited Start: 02-08-2024 End: 02-08-2024 Clinisync Result Encounter Acosta Shania DO Work Phone: [facility] External Department Unsolicited Start: 01-23-2024 End: 01-24-2024 Telephone encounter Arslan Garcia MD Work Phone: Radiation Oncology Comment on above: Patient Question Start: 01-14-2024 End: 01-14-2024 ambulatory ACOSTA SHANIA Not Available Start: 01-14-2024 End: 01-14-2024 Office outpatient visit 15 minutes Acosta Shania DO Work Phone: [facility] Comment on above: 25 weeks gestation o f ; Diabetes mellitus screening; First trimester Start: 01-11-2024 End: 01-11-2024 ambulatory ACOSTA R SHANIA [facility] Start: 01-02-2024 End: 01-02-2024 Clinisync Result Encounter Acosta Shania DO Work Phone: [facility] External Department Unsolicited Start: 01-02-2024 End: 01-02-2024 [...] Start: 02-08-2023 End: 02-08-2023 ambulatory SARA MEDELLIN Facility:[facility] Start: 02-01-2023 End: 02-01-2023 ambulatory SARA MEDELLIN Facility:[facility] Start: 11-09-2022 Telephone encounter Arslan Garcia MD Work Phone: Cancer [facility] Comment on above: Appointment Confirma tion Start: [...] [facility] Comment on above: Missed Appointment Start: 04-20-2022 Patient encounter procedure [facility] Provider [facility] Department Start: 04-11-2022 End: 04-11-2022 Patient encounter procedure Lab/[place] [facility] Work Phone: Radiation Oncology Comment on above: Thyroid cancer (HCC) (Primary Dx) Start: 03-09-2022 Encounter for preprocedural laboratory examination DR CHARLIE EASTMAN [facility] Start: 03-07-2022 End: 11-09-[address] [...] Adult BMI Screening Adult BMI Screen ing [facility] Start: 01-10-2025 Tobacco Screening Tobacco Screening [facility] Start: 05-12-2024 End: 05-12-2024 ambulatory 05/12/2024 1:40 PM EST Visit [facility] [address] [place] [address] Acosta Jauregui, DO [address] [place], [place] [id number] [facility] Start: 04-14-2024 End: 04-14-2024 Patient encounter procedure 04/14/2024 1:20 PM EST Routine [facility] [address] [place] [address] Acosta Jauregui, DO [address] [place], [place] [id number] [facility] Start: 03-31-2024 End: 03-31-2025 [...] Routine [facility] [address] [place] [id number] Acosta Jauregui, DO [address] [place], [place] [id number] [facility] Start: 03-10-2024 End: 03-10-2024 Patient encounter procedure 03/10/2024 1:00 PM EST Routine [facility] [address] [place] [id number] Acosta Jauregui, DO [address] [place], [place] [id number] [facility] Start: 02-25-2024 End: 02-24-2025 US biophysical profile w non stress test US biophysical profile w non stress test Imaging Routine Thyroid disease (CMS/HCC) Expected: 02/25/2024 (Approximate), Expires: 02/24/2025 [facility] Work Phone: Comment on above: Expected: 02/25/2024 (Approximate), Expires: 02/24/2025 Start: 02-25-2024 End: 02-25-2024 Patient encounter procedure [facility] Comment on above: Arrived Start: 02-11-2024 End: 02-10-2025 US biophysical profile w non stress test US biophysical profile w non stress test Imaging Routine Thyroid disease (CMS/HCC) 29 weeks gestation of History of placental abruption Expected: 02/11/2024 (Approximate), Expires: 02/10/2025 [facility] Work Phone: Comment on above: Expected: 02/11/2024 (Approximate), Expires: 02/10/2025 Start: 02-11-2024 End: 02-10-2025 US for US OB SCAN FOR GROWTH Imaging Routine Thyroid disease (CMS/HCC) 29 weeks gestation of History of placental abruption Expected: 02/11/2024 (Approximate), Expires: 02/10/2025 [facility] Comment on above: Expected: 02/11/2024 (Approximate), Expires: 02/10/2025 Start: 02-11-2024 End: 02-11-2024 Patient encounter procedure [facility] Comment on above: Arrived Start: 01-14-2024 End: 01-13-2025 CBC panel - Blood by Automated count CBC Lab Routine Diabetes mellitus screening Expected: 01/14/2024 (Approximate), Expires: 01/13/2025 [facility] Work Phone: Comment on above: Expected: 01/14/2024 (Approximate), Expires: 01/13/2025 Start: 01-14-2024 End: 01-14-2024 Patient encounter procedure 01/14/2024 1:20 PM EDT Routine [facility] [address] [place] [address] Acosta Jauregui, DO [address] [place], [place] [id number] [facility] Start: 12-30-2023 Covid-19 Vaccine ( season) Covid-19 Vaccine ( season) [facility] Start: 12-30-2023 Influenza vaccination C [facility] Start: 08-15-2023 End: 11-14-2023 Thyroglobulin and Thyrogobulin Ab panel - Serum or Plasma THYROGLOBULIN, SERUM WITH REFLEX TO IA OR LC-MS/MS Lab Routine Thyroid cancer (HCC) Expected: 08/15/2023, Expires: 11/14/2023 [facility] Work Phone: Comment on above: Expected: 08/15/2023 , Expires: 11/14/2023 Start: 08-15-2023 End: 11-14-2023 Thyrotropin [Units/volume] in Serum or Plasma THYROID STIMULATING HORMONE Lab Routine Thyroid cancer (HCC) Expected: 08/15/2023, Expires: 11/14/2023 [facility] Work Phone: Comment on above: Expected: 08/15/2023 , Expires: 11/14/2023 Start: 08-15-2023 End: 11-14-2023 Thyroxine (T4) [Mass/volume] in Serum or Plasma T4/THYROXINE Lab Routine Thyroid cancer (HCC) Expected: 08/15/2023, Expires: 11/14/2023 [facility] Work Phone: Comment on above: Expected: 08/15/2023 , Expires: 11/14/2023 Start: 06-26-2023 End: 06-26-2023 Professional / ancillary services management 06/26/2023 1:00 PM EST Ancillary Procedure [facility] [address] [address] [facility] Start: 06-12-2023 End: 06-12-2024 US for US PELVIS-TRANSVAG IF INDICATED Imaging Routine Amenorrhea Expected: 06/12/2023 (Approximate), Expires: 06/12/2024 [facility] Comment on above: Expected: 06/12/2023 (Approximate), Expires: 06/12/2024 Start: 04-30-2023 Behavioral Health Screening Behavioral Health Screening [facility] Start: 04-30-2023 Depression Assessment Depression Ass essment [facility] Start: 12-29-2022 Covid-19 Vaccine () Covid-19 Vaccine () [facility] Start: 12-29-2022 Influenza vaccination C [facility] Start: 07-02-2022 End: 09-01-2022 THYROGLOBULIN BY [...] 09/01/2022 Start: 04-30-2022 DEPRESSION ASSESSMENT DEPRESSION ASS [facility] Start: 2022 HPV TESTING HPV TESTING [facility] Start: 2022 Screening for malign ant neoplasm of cervix HPV Testing [facility] Start: 12-29-2021 Influenza vaccination INFLUENZA (#1) [facility] Start: 04-30-2021 DEPRESSION ASSESSMENT DEPRESSION ASS [facility] Start: 2013 PAP TESTING PAP TESTING [facility] Start: 2013 Screening for malign ant neoplasm of cervix [facility] Start: 2011 DTaP,Tdap and Td Vaccines (1 - Tdap) DTaP,Tdap and Td Vaccines (1 - Tdap) [facility] Start: 2011 Hepatitis B Vaccine (1 of 3 - 19+ 3-dose series) Hepatitis B Vaccine (1 of 3 - 19+ 3-dose series) [facility] Start: 2011 Urine microalbumin profile [facility] Start: 2010 Adult BMI Follow Up Plan Adult BMI Follow Up Plan [facility] Start: 2010 Anxiety Screening Anxiety Screening [facility] Start: 2010 Depression Screening Depression Scre enlili [facility] Start: 2010 HEPATITIS C SCREENING HEPATITIS C SC [facility] Start: 2010 Hepatitis C screening Hepatitis C Sc [facility] Start: 2010 HIV SCREENING HIV SCREENING [facility] Start: 2010 HIV screening HIV Screening [facility] Start: 2004 [facility] Screening [facility] Start: 1998 PNEUMOCOCCAL (1 - PCV) PNEUMOCOCCAL (1 - PCV) [facility] Start: 1998 Pneumococcal vaccination [facility] Start: 1992 COVID-19 VACCINE (#1) COVID-19 VACCI NE (#1) [facility] Start: 1992 HEPATITIS B (1 of 3 - 3-dose series) HEPATITIS B (1 of 3 - 3-dose series) [facility] Start: 1992 Hepatitis B Vaccine (1 of 3 - 3-dose series) Hepatitis B Vaccine (1 of 3 - 3-dose series) [facility] Start: 1992 Tobacco Counseling Tobacco Counselin g [facility] CBC W Auto Different ial panel - Blood CBC and differential Lab Routine Amenorrhea Ordered: 06/12/2023 [facility] Comment on above: Ordered: 06/12/2023 hCG, quantitative, hCG, quantitative, Lab Routine Amenorrhea Ordered: 06/12/2023 [facility] Comment on above: Ordered: 06/12/2023 Hemoglobin A1c measurement Hemoglobin A1c Lab Routine Amenorrhea Ordered: 06/12/2023 [facility] Comment on above: Ordered: 06/12/2023 Hemoglobin A1c/Hemoglobin.total in Blood Hemoglobin A1c Lab Routine Diabetes mellitus screening Ordered: 01/14/2024 [facility] Comment on above: Ordered: 01/14/2024 Hemoglobin A1c/Hemoglobin.total in Blood Hemoglobin A1c Lab Routine Diabetes mellitus screening Ordered: 12/17/2023 [facility] [employer] Work Phone: Comment on above: Ordered: 12/17/2023 Prolactin Prolactin Lab Ro utine Amenorrhea Ordered: 06/12/2023 [facility] Comment on above: Ordered: 06/12/2023 Thyrotropin [Units/volume] in Serum or Plasma TSH Lab Routine Amenorrhea Ordered: 06/12/2023 [facility] [employer] Work Phone: Comment on above: Ordered: 06/12/2023 [facility] Payers Date Payer Category Payer Self-pay 2022 Medicaid HMO [employer] [id number] 2020 Medicaid [id number] 2020 Medicaid (Managed Care) [employer] [id number] 1992 Unknown [id number] 2.16.840.1.898195.3.579.2. 593 1992 Unknown [id number] 2.16.840.1.019656.3.579.2. 593 1992 Unknown [id number] 2.16.840.1.214614.3.579.2. 593 1992 Unknown [id number] 2.16.840.1.502244.3.579.2. 593 1992 Unknown [id number] 2.16.840.1.613116.3.579.2. 593 1992 Unknown [id number] 2.16.840.1.128423.3.579.2. 593 1992 Unknown [id number] 2.16.840.1.535653.3.579.2. 593 1992 Unknown [id number] 2.16.840.1.294368.3.579.2. 593 1992 Unknown [id number] 2.16.840.1.558694.3.579.2. 593 1992 Unknown [id number] 2.16.840.1.194201.3.579.2. 593 1992 Unknown [id number] 2.16.840.1.647837.3.579.2. 593 1992 Unknown [id number] 2.16.840.1.815647.3.579.2. 593 1992 Unknown [id number] 2.16.840.1.592183.3.579.2. 593 1992 Unknown [id number] 2.16.840.1.453417.3.579.2. 593 1992 Unknown [id number] 2.16.840.1.540740.3.579.2. 593 1992 Unknown [id number] 2.16.840.1.458940.3.579.2. 1286 1992 Unknown [id number] 2.16.840.1.005277.3.579.2. 1286 1992 Unknown [id number] 2.16.840.1.727299.3.579.2. 1259 1992 Unknown [id number] 2.16.840.1.615704.3.579.2. 1259 1992 Unknown [id number] 2.16.840.1.613849.3.579.2. 1259 1992 Unknown [id number] 2.16.840.1.562561.3.579.2. 9 1992 Unknown [id number] 2.16.840.1.232888.3.579.2. 9 1992 Unknown [id number] 2.16.840.1.089854.3.579.2. 9 1992 Unknown [id number] 2.16.840.1.858437.3.579.2. 9 1992 Unknown [id number] 2.16.840.1.784620.3.579.2. 1258 1992 Unknown [id number] 2.16.840.1.855973.3.579.2. 9 1992 Unknown [id number] 2.16.840.1.864182.3.579.2. 1258 1992 Unknown [id number] 2.16.840.1.414265.3.579.2. 9 1992 Unknown [id number] 2.16.840.1.702378.3.579.2. 9 1992 Unknown [id number] 2.16.840.1.636135.3.579.2. 1259 1959 Unknown [id number] Unknown [id number] 2.16.840.1.703806.3.579.2. 531 Social History Date Type Detail Facility Start: 04-11-2022 End: 09-23-2022 Tobacco smoking status COIS Smokes tobacco daily [facility] History of tobacco use Cigarette Smoker C [facility] Start: 04-11-2022 End: 09-14-2023 Cigarettes smoked current (pack per day) - Reported 1 [facility] Start: 04-11-2022 End: 09-23-2022 Tobacco use and exposure Smokeless tobacco non-user [facility] Start: 04-11-2022 End: 05-12-2024 Alcohol intake Current drinker of alcohol (finding) [facility] Start: 04-11-2022 Alcohol Comment socially [facility] Start: 1992 [facility] Start: 05-04-2022 End: 09-14-2023 Tobacco use panel [facility] Adult Depression Screening Assessment 0 [facility] Start: 10-03-2022 Alcohol Comment caffeine intak e: 1-2 cups per day [facility] Start: 1992 Sex Assigned At Female [facility] Start: 10-04-2022 Gender identity Identifies as female gender (finding) [facility] Start: 08-06-2023 [facility] Start: 01-11-2024 Alcoholic beverage intake Ex-drinker (finding) [facility] Start: 08-26-2018 Sex Female (finding) [facility] Clinical Notes 03-07-2022 to 05-12-2024 Sylvia Rader, [facility] - 05/12/2024 1:40 PM Orly Clement, [facility] - 04/14/2024 1:20 PM Orly Clement, [facility] - 03/31/2024 1:30 PM Noah Rader, [facility] - 03/24/2024 1:00 PM EST Note Date & Type Note Facility 05-12-2024 History of Present illness Narrative Reason for Appointment: Patient ID: Amanda Coretz is a 34 y.o. female who presents for Follow-up and Pre-op Visit Patient presents today for Post Follow Up appointment. and Pre Op appointment. Patient is scheduled to undergo Bilateral Laparoscopic Salpingectomy on 06/06/[address] Jauregui at [facility]. MEDICATIONS Current Outpatient Medications Medication Instructions [...] nursing note reviewed. Exam conducted with a automation qa analyst present. Vitals: Estimated body mass index is [...] reviewed, and patient is to proceed to [facility] OR. Follow Up: Patient is to follow up between 1-2 weeks post operative to assess proper healing and recovery from procedure. Documented by Sylvia Rader LPN on behalf of: Acosta Jauregui DO documented in this encounter [facility] 04-14-2024 History of Present illness Narrative Reason [...] nursing note reviewed. Exam conducted with a automation qa analyst present. Vitals: Estimated body mass index is [...] Acosta Jauregui DO documented in this encounter [facility] 03-31-2024 History of Present illness Narrative [...] Problems Diagnosis Date Noted Papillary thyroid carcinoma ([facility]) 09/23/2022 Thyroid disease ([facility]) 09/23/2022 Bilateral tinnitus 10/04/2022 Asymmetric SNHL [...] nursing note reviewed. Exam conducted with a automation qa analyst present. Vitals: Estimated body mass index is [...] Acosta Jauregui DO documented in this encounter [facility] 03-24-2024 History of Present illness Narrative Reason for Appointment: Patient ID: Amanda Cotrez is a 33 y.o. female who presents [...] nursing note reviewed. Exam conducted with a automation qa analyst present. Vitals: Estimated body mass index is [...] Acosta Jauregui DO documented in this encounter [facility] 03-10-2024 History of Present illness Narrative [...] nursing note reviewed. Exam conducted with a automation qa analyst present. Vitals: Estimated body mass index is [...] 2 weeks. Patient will continue NST/BPP at [facility] as well. Documented by Sylvia Rader LPN on behalf of: Acosta Jauregui DO documented in this encounter [facility] 02-26-2024 History of Present illness Narrative [facility] Patient visited the Food Clinic and received food documented in this encounter [facility] 02-25-2024 History of Present illness Narrative Reason [...] weeks gestation of Z3A.31 3. 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 Ambulatory Problems Diagnosis Date Noted Acid reflux 09/23/2022 Amenorrhea 09/23/2022 Lesion of palate 09/23/2022 depression (CMS/HCC) 09/23/2022 Thyroid mass ([facility]/HCC) 09/23/2022 Vaginal delivery 09/23/2022 Past Medical History: Diagnosis Date Chronic maxillary sinusitis Diarrhea Ear problems Family planning Fatigue Fibroadenoma of breast, right Foreign body sensation in throat History of miscarriage LPRD (laryngopharyngeal reflux disease) Obesity Papilloma of palate PCOS (polycystic ovarian syndrome) Thyroid cancer (CMS/HCC) Thyroid nodule ([facility]) HISTORY PAST MEDICAL HISTORY SOCIAL HISTORY [...] (CMS/HCC) Thyroid mass (CMS/HCC) 09/23/2022 Thyroid nodule ([facility]/HCC) Vaginal delivery 09/23/2022 Vaginal delivery Social History [...] nursing note reviewed. Exam conducted with a automation qa analyst present. Vitals: Estimated body mass index is [...] Acosta Jauregui DO documented in this encounter [facility] 01-24-2024 Telephone encounter Note I notified Amanda of Dr. Garcia's response. She will call after she delivers in March 2024 to scheduled follow up. Irais Turpin RN [facility] 01-24-2024 Miscellaneous Notes I notified Amanda of Dr. Garcia's response. She will call after she delivers in March 2024 to scheduled follow up. Irais Turpin RN Amanda called stating she is currently and is being followed very closely by [facility] in [place] and her local [employer] [employer]. She states her high risk is d/t [...] Irais Turpin RN documented in this encounter [facility] 01-23-2024 Telephone encounter Note Amanda called stating she is currently and is being followed very closely by [facility] in [place] and her local [employer] [employer]. She states her high risk is d/t [...] possible lab work? Thanks Irais Turpin RN [facility] 01-14-2024 History of Present illness Narrative [...] nursing note reviewed. Exam conducted with a automation qa analyst present. Vitals: Estimated body mass index is [...] Acosta Jauregui DO documented in this encounter [facility] 12-17-2023 History of Present illness Narrative [...] nursing note reviewed. Exam conducted with a automation qa analyst present. Vitals: Estimated body mass index is [...] after delivery. [facility] Patient had ultrasound done today. Patient to return to clinic in 4 weeks for routine OB appointment. Patient will have Growth scans starting at 28 weeks and NST/BPP starting at 32 weeks gestation. Documented by Sylvia Rader LPN on behalf of: Acosta Jauregui DO documented in this encounter [facility] 11-13-[address] Christine office received ref and they will be calling patient to schedule appointment. Records faxed to Dr. Arteaga. Lawanda please send records to [facility] facesheet in your box Images from the original note were not included. Spoke to pt. She would like to see endocrinology in [place]. Pt's OB did adjust synthroid recently and has been monitoring labs. TREASURE- please sign pended order. PSS- please arrange visit when order is signed. KAREN Petres, Danna Mcdowell RN Previous Messages ----- Message ----- From: Arslan Garcia MD Sent: 11/02/2023 12:08 PM EDT To: Obi Dunlap; [facility] Rad Nurse Pool Given what sounds like patient is in first trimester and ongoing concerns of breast-feeding recommend she follow-up with endocrinology. documented in this encounter [facility] 11-13-[address] Christine office received ref and they will be calling patient to schedule appointment. [facility] 11-12-2023 Telephone encounter Note Records faxed to Dr. Arteaga. [facility] 11-12-2023 Telephone encounter Note Lawanda boswell send records to [facility] facesheet in your box [facility] 11-12-2023 Telephone encounter Note Images from the original note were not included. Spoke to pt. She would like to see endocrinology in [place]. Pt's OB did adjust synthroid recently and [...] of breast-feeding recommend she follow-up with endocrinology. [facility] 10-24-2023 Note HNO ID: [id number] Author: Arslan GARCIA MD Service: ? Author Type: Physician Type: Progress Notes Filed: 11/02/2023 12:08 Note Text: Unable to reach patient. [facility] 10-24-2023 History of Present illness Narrative Unable to reach patient. documented in this encounter [facility] 08-14-2023 Miscellaneous Notes TREASURE- please sign [...] Danna Pitts RN documented in this encounter [facility] 07-19-2023 Miscellaneous Notes Pt called to request labs sent to [facility]. Faxed to central scheduling. Edna Sal RN documented in this encounter [facility] 06-12-2023 History of Present illness Narrative [...] Acosta Jauregui DO documented in this encounter [facility] 02-14-2023 Miscellaneous Notes Images from the original note were not included. Patient is scheduled for appointments Arslan Garcia MD [facility] [place]; Obi Genao 4 months with labs. Orders have been placed in [facility]. documented in this encounter [facility] 02-08-2023 Note HNO ID: [id number] Author: Arslan Garcia MD Service: ? Author [...] Time Spent: 6 minutes Arslan Garcia MD [facility] 11-09-2022 Miscellaneous Notes Images from the original note were not included. Patient is called and scheduled. Arslan Garcia MD [facility] Nurse [place]; Obi Genao 8 weeks with labs, orders placed, thank you documented in this encounter [facility] 07-17-2022 Miscellaneous Notes Appointment has been changed to phone appt. Tj Funez Pt called in requesting to be switched to a phone visit tomorrow. Her kids are on spring break and a couple of them are sick. Labs have been done and resulted. PSS- please change to phone visit for tomorrow. Danna Pitts RN documented in this encounter [facility] 05-04-2022 History of Present illness Narrative Radiation Oncology - FollowupNote PATIENT NAME: Amanda Cortez PATIENT : 1990 DIAGNOSIS: Thyroid cancer, classic papillary thyroid carcinoma, status post total thyroidectomy and right neck exploration on 03/07/2022, stage I [id number]. HPI: Patient returns after further work-up and [...] and right neck exploration on 03/07/2022, stage [id number]. Patient does have significant thyroglobulin antibody however [...] for this encounter. documented in this encounter [facility] 04-25-2022 Miscellaneous Notes Patient had been rescheduled. Tj Funez Images from the original note were not included. Called patient to reschedule, LMOV. Tj Garcia MD [facility] Nurse [place]; Tj Funez Unable to reach please reschedule documented in this encounter [facility] 04-11-2022 Nurse Note Amanda Cortez presents in office today for: Lab Draw during Office Visit . Ordering Provider: Felipe Garcia M.D. Test (s) ordered: TG Method for obtaining blood: Phlebotomy was performed, accessing right antecubital vein. Needle removed intact. Dressing secured. Patient denies discomfort, dizziness, light-headedness or weakness and left the department without assist. Danna Pitts, RN documented in this encounter [facility] 03-07-2022 Note OPERATIVE NOTE OPERATION DATE: [...] the recovery room in good condition. [facility] Evaluation note Diagnosis Thyroid cancer (HCC)- Primary Malignant neoplasm of thyroid gland [facility] ([facility])- Primary Malignant neoplasm of thyroid gland [facility] Diagnosis Missed menses Amenorrhea Absence of menstruation documented in this encounter [facility]* Diagnosis Thyroid cancer (HCC)- Primary Malignant neoplasm of thyroid gland [facility] Diagnosis Thyroid cancer (HCC)- Primary Malignant neoplasm of thyroid gland [facility] Thyroid cancer (HCC)- Primary Malignant neoplasm of thyroid gland [facility] Diagnosis Third trimester state, incidental [...] of Food insecurity [facility] Diagnosis Third trimester state, incidental 33 weeks gestation of Thyroid disease (CMS/HCC) Unspecified disorder of thyroid documented in this encounter [facility] HealthcareEvaluation note* Diagnosis 35 weeks gestation of Third trimester state, incidental documented [facility]* Diagnosis 36 weeks gestation of Third trimester state, incidental documented in this encounter [facility] note* Diagnosis 25 weeks gestation of Diabetes mellitus screening Screening for diabetes mellitus First trimester state, incidental documented [facility]* Diagnosis Third trimester state, incidental 38 weeks gestation of documented in this encounter [facility]* Diagnosis Second trimester state, incidental Diabetes mellitus screening Screening for diabetes mellitus documented in this encounter [facility] HealthcareEvaluation note* Diagnosis 6 weeks follow-up Pre-operative exam Unspecified pre-operative examination documented in this encounter [facility] HealthcareInstructionsNot on [facility]ocument[facility] Family History No Family History [...] cancer (HCC) Procedures CONSULT TO ENDOCRINOLOGY OFFICE/OUTPATIENT [facility] 60 MINUTES Arslan Garcia MD [address] [place] [address] [place] [address] Referral ID Status Reason Start Date Expiration Date Visits Requested Visits Authorized [id number] Authorized PCP Requested Referral 11/12/2023 11/11/2024 1 1 Additional Source Comments Source Comments (unrecognize d section and content) In the event this informatio n is protected by the Federal Confidentiality of Alcohol and Drug Abuse Patient Records regulations: The Federal rules restrict any use of the information to criminally investigate or prosecute any alcohol or drug abuse patient.[facility] the event this information is protected by the Federal Confidentiality of Alcohol and Drug Abuse Patient Records regulations: The Federal rules restrict any use of the information to criminally investigate or prosecute any alcohol or drug abuse patient.[facility] the event this information is protected by the Federal Confidentiality of Alcohol and Drug Abuse Patient Records regulations: The Federal rules restrict any use of the information to criminally investigate or prosecute any alcohol or drug abuse patient.[facility] the event this information is protected by the Federal Confidentiality of Alcohol and Drug Abuse Patient Records regulations: The Federal rules restrict any use of the information to criminally investigate or prosecute any alcohol or drug abuse patient.[facility] the event this information is protected by the Federal Confidentiality of Alcohol and Drug Abuse Patient Records regulations: The Federal rules restrict any use of the information to criminally investigate or prosecute any alcohol or drug abuse patient.[facility] the event this information is protected by the Federal Confidentiality of Alcohol and Drug Abuse Patient Records regulations: The Federal rules restrict any use of the information to criminally investigate or prosecute any alcohol or drug abuse patient.[facility] the event this information is protected by the Federal Confidentiality of Alcohol and Drug Abuse Patient Records regulations: The Federal rules restrict any use of the information to criminally investigate or prosecute any alcohol or drug abuse patient.[facility] the event this information is protected by the Federal Confidentiality of Alcohol and Drug Abuse Patient Records regulations: The Federal rules restrict any use of the information to criminally investigate or prosecute any alcohol or drug abuse patient.[facility] the event this information is protected by the Federal Confidentiality of Alcohol and Drug Abuse Patient Records regulations: The Federal rules restrict any use of the information to criminally investigate or prosecute any alcohol or drug abuse patient.[facility] the event this information is protected by the Federal Confidentiality of Alcohol and Drug Abuse Patient Records regulations: The Federal rules restrict any use of the information to criminally investigate or prosecute any alcohol or drug abuse patient.[facility] the event this information is protected by the Federal Confidentiality of Alcohol and Drug Abuse Patient Records regulations: The Federal rules restrict any use of the information to criminally investigate or prosecute any alcohol or drug abuse patient.[facility] the event this information is protected by the Federal Confidentiality of Alcohol and Drug Abuse Patient Records regulations: The Federal rules restrict any use of the information to criminally investigate or prosecute any alcohol or drug abuse patient.[facility] Reason for Visit (unrecogniz ed section [...] Care Teams (unrecognized sec tion and content) Senior Librarian Relationship Specialty Start Date End Date Sara Medellin MD [address] [place] [address] PCP - General Family Medicine 04/11/22 Senior Librarian Relationship Specialty Start Date End Date Sara Medellin MD [address] [place] [address] PCP - General Family Medicine 04/11/22 Senior Librarian Relationship Specialty Start Date End Date Sraa Medellin MD [address] [place] [address] PCP - General Family Medicine 04/11/22 Senior Librarian Relationship Specialty Start Date End Date Sara Medellin MD PCP - General Family Medicine 04/11/22 Senior Librarian Relationship Specialty Start Date End Date Sara Medellin MD PCP - General Family Medicine 04/11/22 Senior Librarian Relationship Specialty Start Date End Date Sara Medellin MD [address] [place] [address] PCP - General Family Medicine 10/03/22 Senior Librarian Relationship Specialty Start Date End Date Sara Medellin MD PCP - General Family Medicine 04/11/22 Senior Librarian Relationship Specialty Start Date End Date Sara Medellin MD PCP - General Family Medicine 04/11/22 Senior Librarian Relationship Specialty Start Date End Date Sara Medellin MD PCP - General Family Medicine 04/11/22 Senior Librarian Relationship Specialty Start Date End Date Sara Medellin MD [address] [place] [facility] [address] PCP - General Family Medicine 10/03/22 Senior Librarian Relationship Specialty Start Date End Date Sara Medellin MD [address] [place] [facility] [address] PCP - General Family Medicine 10/03/22 Senior Librarian Relationship Specialty Start Date End Date Sara Medellin MD [address] [place] [facility] [address] PCP - General Family Medicine 10/03/22 Senior Librarian Relationship Specialty Start Date End Date Sara Medellin MD [address] [place] [address] PCP - General 01/10/24 Senior Librarian Relationship Specialty Start Date End Date Sara Medellin MD [address] [place] [facility] [address] PCP - General Family Medicine 10/03/22 Senior Librarian Relationship Specialty Start Date End Date Sara Medellin MD [address] [facility], [facility] PCP - General Family Medicine 10/03/22 Senior Librarian Relationship Specialty Start Date End Date Sara Medellin MD [address] [facility], [facility] PCP - General Family Medicine 10/03/22 Senior Librarian Relationship Specialty Start Date End Date Sara Medellin MD [address] [facility], [facility] PCP - General Family Medicine 10/03/22 Senior Librarian Relationship Specialty Start Date End Date Sara Medellin MD [address] [facility], [facility] PCP - General Family Medicine 10/03/22 Senior Librarian Relationship Specialty Start Date End Date Sara Medellin MD [address] [facility], [facility] PCP - General Family Medicine 10/03/22 Senior Librarian Relationship Specialty Start Date End Date Sara Medellin MD [address] [facility], [facility] PCP - General Family Medicine 10/03/22 Senior Librarian Relationship Specialty Start Date End Date Sara Medellin MD [address] [facility], [facility] PCP - General Family Medicine 10/03/22 Senior Librarian Relationship Specialty Start Date End Date Sara Medellin MD [address] [facility] [address] PCP - General Family Medicine 10/03/22 INFORMATION SOURCE (unrecogn ized section and content) DATE CREATED AUTHOR 09/02/2022 [facility] DATE CREATED AUTHOR AUTHOR'S ORGANIZ ATION 01/11/2024 [facility] DATE CREATED AUTHOR AUTHOR'S ORGANIZ ATION 01/13/2024 [facility] DATE CREATED AUTHOR AUTHOR'S ORGANIZ ATION 04/30/2024 [facility] DATE CREATED AUTHOR AUTHOR'S ORGANIZ ATION 05/15/2024 [facility] EPIC FOR RECORDS PERTAINING TO [...] BE BASED ON THE PRIMARY CLINICAL RECORDS. [employer] provides no warranty or guarantee of the accuracy or completeness of information in this document.
== END 2024-05-23 11:04 | disposition home or self-care (01) ==
LOC: PST 11:06
PROVIDERS: PCP Family Medicine; Visit Provider Obstetrics & Gynecology
DX: Z01.818 Encounter for other preprocedural examination (principal)

== ENCOUNTER 2024-05-23 11:27 | Outpatient (OUT) | payer OTHER, SELFPAY | END 2024-05-23 11:28 | disposition home or self-care (01) | LOC: PST 11:27 | PROVIDERS: PCP Family Medicine; Visit Provider Obstetrics & Gynecology | DX: Z01.818 Encounter for other preprocedural examination (principal) ==

== ENCOUNTER 2024-05-26 08:25 | Outpatient (OUT) | payer OTHER, SELFPAY | END 2024-05-26 14:11 | disposition home or self-care (01) | LOC: FBCO 08:26 | PROVIDERS: PCP Family Medicine; Visit Provider Obstetrics & Gynecology | DX: Z39.1 Encounter for care and examination of lactating mother (principal) ==

== ENCOUNTER 2024-06-02 09:35 | Outpatient (OUT) | payer OTHER, SELFPAY ==
--- OUTSIDE RECORDS SUMMARY | 2024-06-02 09:41 | XMS_ITS | CCD ---
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 Name Role Phone Sara Medellin MD Primary Care Provider [phone] RAIZA, DR GUERRA Consulting Unavailable HOY ., [...] Unavailable Sara Medellin MD Primary Care Provider [phone] Sara Medellin MD Primary Care Provider [phone] Sara Medellin MD Primary Care Provider [phone] SARA MEDELLIN Primary Care Unavailable Arslan GARCIA Attending Unavailable SARA MEDELLIN Primary Care Unavailable Arslan GARCIA Attending Unavailable SARA MEDELLIN Primary Care Unavailable YFN MICHELLE Attending Unavailable SHANIA, ACOSTA R Referring Unavailable SARA MEDELLIN Primary Care Unavailable SHANIA, ACOSTA R Referring Unavailable SARA MEDELLIN Primary Care Unavailable Sara Medellin MD Primary Care Provider [phone] Sara Medellin Primary Care Unavailable Pay, Misha [...] 04-11-20 22 Hives, Shortness of Breath, Anaphylaxis [facility] (13 sources) Penicillins; Translations: [PENICILLINS] Drug Allergy 04-11-20 22 Hives, Shortness of Breath [facility] (2 sources) Cefaclor Drug Allergy 05-10-19 14 [facility] (2 sources) Penicillins Drug allergy (disorder) 05-10-19 14 [facility] (20 sources) Penicillin G sodium; Translations: [PENICILLIN G SODIUM] Allergy to substance 09-24-19 23 Anaphylaxis [facility] (20 sources) Cephalosporins (Antibiotic); Translations: [CEPHALOSPORINS] Propensity [...] on above: [facility] capsule [facility]. 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 RECRUITER CURRENT DRUG THERAPY] Onset: 08-24-2022 Episodic Other [...] bacterial skin contaminants 2 Days PERFORMED BY: [place] [address] PATHOLOGIST WELT WHEELER SAMANTHA Walker [facility] Comment on above: Performed By: #### C UU #### [address] ALL CBC WITH AUTO DIFFon BASOPHILS [...] [Mass/Vol] 32.1 g/dL 29.9 - 35.2 g/dL [facility] MCV (RBC) [Entitic vol] 90.8 fL 81.0 - 99.0 fL [facility] MONOCYTES ABSOLUTE AUTO 0.7 [facility] Monocytes/100 WBC (Bld) 4.8 % 1.7 - 12.0 % [facility] NEUTROPHILS ABSOLUTE AUTO 11 High [facility] Neutrophils/100 WBC (Bld) 72.7 % 43.0 - 75.0 % [facility] Platelet mean volume (Bld) [Entitic vol] 10.1 fL 9.5 - 13.5 fL [facility] EO # 0.3 [facility] TB PLT 262 [facility] RBC 3.6 Low [facility] WBC 15.1 High [facility] DRUG SCREEN RAPID (URINE )on 04-18-2024 AMPHETAMINE SCREEN URINE Negative NEGATIVE [facility] BARBITURATES SCREEN URINE Negative NEGATIVE [facility] BENZODIAZEPINES SCREEN URINE Negative NEGATIVE [facility] BUPRENORPHINE SCREEN URINE Negative NEGATIVE [facility] Comment on above: DRUG CLASS TEST SYST [...] 300 ng/mL CANNABINOID SCREEN URINE Negative NEGATIVE [facility] COCAINE SCREEN URINE Negative NEGATIVE [facility] METHADONE SCREEN URINE Negative NEGATIVE [facility] METHAMPHETAMINES SCREEN URINE Negative NEGATIVE [facility] OPIATE SCREEN URINE Negative NEGATIVE [facility] OXYCODONE SCREEN URINE Negative NEGATIVE [facility] PHENCYCLIDINE SCREEN URINE Negative NEGATIVE [facility] TRICYCLIC ANTIDEPRESSANT URINE Negative NEGATIVE [facility] Urinalysis macro (dipstick) panel (U)on 03-31-2024 Bilirubin, UA Negative Negative - 4(70) +++ mg/dL [facility] Blood, UA Negative Negative - 50 Maury/mcL [facility] Clarity, UA Clear [facility] Color, UA Yellow [facility] Glucose, UA Negative Negative - 1999(110) ++++ mg/dL [facility] Interpretation and review of laboratory results Abnormal [facility] Ketones, UA Negative Negative - 160(16) ++++ mg/dL [facility] Leukocytes, UA Positive Negative - 500+++ Fan/mcL [facility] Nitrite, UA Negative Negative - Positive [facility] pH, UA 7 5 - 9 [facility] Protein, UA Trace Negative - 1999(20) ++++ mg/dL [facility] Spec Grav, UA 1.025 1 - 1.03 [facility] Urobilinogen, UA 1.0 0.2 - 12 mg/dL [facility] Urinalysis macro (dipstick) panel (U)on 03-24-2024 Bilirubin, UA Positive Negative - 4(70) +++ mg/dL [facility] Comment on above: moderate Blood, UA Negative Negative - 50 Maury/mcL [facility] Clarity, UA Clear [facility] Color, UA Amanda [facility] Glucose, UA Positive Negative - 1999(110) ++++ mg/dL [facility] Comment on above: 100 Interpretation and review of laboratory results Abnormal [facility] Ketones, UA Positive Negative - 160(16) ++++ mg/dL [facility] Comment on above: 15 Leukocytes, UA Negative Negative - 500+++ Fan/mcL [facility] Nitrite, UA Negative Negative - Positive [facility] pH, UA 6.5 5 - 9 [facility] Protein, UA Positive Negative - 1999(20) ++++ mg/dL [facility] Comment on above: 100 Spec Grav, UA 1.025 1 - 1.03 [facility] Urobilinogen, UA 2.0 0.2 - 12 mg/dL [facility] Referral to Food C linicon 02-26-2024 [facility] Urinalysis macro (dipstick) panel (U)on 02-11-2024 Bilirubin, UA Negative Negative - 4(70) +++ mg/dL [facility] Blood, UA Negative Negative - 50 Maury/mcL [facility] Clarity, UA Clear [facility] Color, UA Yellow [facility] Glucose, UA Negative Negative - 1999(110) ++++ mg/dL [facility] Interpretation and review of laboratory results Abnormal [facility] Ketones, UA Negative Negative - 160(16) ++++ mg/dL [facility] Leukocytes, UA Positive Negative - 500+++ Fan/mcL [facility] Nitrite, UA Negative Negative - Positive [facility] pH, UA 7 5 - 9 [facility] Protein, UA Positive Negative - 2000(20) ++++ mg/dL [facility] Spec Grav, UA 1.02 1 - 1.03 [facility] Urobilinogen, UA 1.0 0.2 - 12 mg/dL [facility] ALL THYROID STIM HORMONEon 1 Interpretation and review of laboratory results Abnormal [facility] TSH Qn 28.537 m[IU]/L High [facility] Urinalysis macro (dipstick) panel (U)on 01-14-2024 Bilirubin, UA Positive Negative - 4(70) +++ mg/dL [facility] Blood, UA Negative Negative - 50 Maury/mcL [facility] Clarity, UA Clear [facility] Color, UA Yellow [facility] Glucose, UA Negative Negative - 1999(110) ++++ mg/dL [facility] Interpretation and review of laboratory results Abnormal [facility] Ketones, UA Positive Negative - 160(16) ++++ mg/dL [facility] Comment on above: small Leukocytes, UA Positive Negative - 500+++ Fan/mcL [facility] Comment on above: small Nitrite, UA Negative Negative - Positive [facility] pH, UA 6.5 5 - 9 [facility] Protein, UA Negative Negative - 1999(20) ++++ mg/dL [facility] Spec Grav, UA 1.020 1 - 1.03 [facility] Urobilinogen, UA 1.0 0.2 - 12 mg/dL [facility] ALL CBC WITH AUTO DIFFon BASOPHILS ABSOLUTE AUTO 0.0 [facility] Basophils/100 WBC (Bld) 0.3 % 0.2 - 2.0 % [facility] Eosinophils/100 WBC (Bld) 2.4 % 0.9 - 7.0 % [facility] Erythrocyte distribution width (RBC) [Ratio] 13.6 % 11.0 - 15.0 % [facility] Hematocrit (Bld) [Volume fraction] 35.0 % Low 36.0 - 48.0 % [facility] Hemoglobin (Bld) [Mass/Vol] 11.8 g/dL Low 12.0 - 16.0 g/dL [facility] IMMATURE GRANULOCYTES ABS AUTO 0.02 [facility] Immature granulocytes/100 WBC (Bld) 0.2 % 0.0 - 0.5 % [facility] Interpretation and review of laboratory results Abnormal [facility] LYMPHOCYTES ABSOLUTE AUTO 2.1 [facility] Lymphocytes/100 WBC (Bld) 23.6 % 20.5 - 60.0 % [facility] MCH (RBC) [Entitic mass] 30.1 pg 26.7 - 34.0 pg [facility] MCHC (RBC) [Mass/Vol] 33.7 g/dL 29.9 - 35.2 g/dL [facility] MCV (RBC) [Entitic vol] 89.3 fL 81.0 - 99.0 fL [facility] MONOCYTES ABSOLUTE AUTO 0.4 [facility] Monocytes/100 WBC (Bld) 3.9 % 1.7 - 12.0 % [facility] NEUTROPHILS ABSOLUTE AUTO 6.2 [facility] Neutrophils/100 WBC (Bld) 69.6 % 43.0 - 75.0 % [facility] Platelet mean volume (Bld) [Entitic vol] 9.8 fL 9.5 - 13.5 fL [facility] TBH EO # 0.2 [facility] TBH PLT 224 [facility] RBC 3.92 Low [facility] WBC 8.9 [facility] Urinalysis macro (dipstick) panel (U)Ordered By: Kerline Clement on 12-19-2023 Bilirubin, UA Negative Negative - 4(70) +++ mg/dL [facility] Blood, UA Negative Negative - 50 Maury/mcL [facility] Clarity, UA Clear [facility] Color, UA Yellow [facility] Glucose, UA Negative Negative - 1999(110) ++++ mg/dL [facility] Interpretation and review of laboratory results Abnormal [facility] Ketones, UA Negative Negative - 160(16) ++++ mg/dL [facility] Leukocytes, UA Moderate Negative - 500+++ Fan/mcL [facility] Nitrite, UA Negative Negative - Positive [facility] Protein, UA Negative Negative - 2000(20) ++++ mg/dL [facility] Spec Grav, UA 0.010 1 - 1.03 [facility] Urobilinogen, UA 1.0 0.2 - 12 mg/dL [facility] Cervical or vaginal smear or scraping studyon 11-13-2023 [facility] CNPMaru 11-12-2023 CNPN Telephone (RADTSA) AMANDA CORTEZ ([id number]) 1990 F Date Time Provider Department 11/12/23 Arslan GARCIA During your visit today, we recorded the following information about you: Danna Pitts RN 11/12/2023 11:25 AM Signed Spoke to pt. She would like to see endocrinology in [place]. Pt's OB did adjust synthroid recently and has been monitoring labs. TREASURE- please sign pended order. PSS- please arrange visit when order is signed. KAREN Peters, Danna Mcdowell RN Previous Messages ----- Message ----- From: Arslan Garcia MD Sent: 11/02/2023 12:08 PM EDT To: Obi Dunlap; Carlos Nunez [facility] [place] Given what sounds like patient is in [...] AM Signed Called left message for Dr Artaega office to call our office back re: [...] [C73] Order(s):CONSULT TO ENDOCRINOLOGY [9007] Order #: [id number]: 1 FUTURE Prescriptions as of 01/09/2024 - [...] Encounter Status:Closed by DANNA PITTS on 11/13/23 [facility] 07-19-2023 CNPN Telephone (HEMASA) AMANDA CORTEZ ([id number]) 1990 F Date Time Provider Department 07/19/23 EDNA SAL During your visit today, we recorded the following information about you: Edna Sal RN 07/19/2023 10:42 AM Signed Pt called to request labs sent to [facility]. Faxed to central scheduling. Edna Sal RN [...] Status:Closed by EDNA SAL on 07/19/23 [facility] 06-25-2023 CNPN Telephone (RADMORGANA) AMANDA CORTEZ ([id number]) 1990 F Date Time Provider Department 06/25/23 [...] Signed Patients lab orders were sent to [facility] and I scheduled her a phone [...] (HCC) [C73] Order(s):T4/THYROXIN E [SQT4] Order #: [id number] FUTURE THYROID STIMULATING HORMONE [SQTSH] Order #: [id number] FUTURE THYROGLOBULIN, SERUM WITH REFLEX TO IA OR LC-MS/MS [SQTHYRORF] Order #: [id number] FUTURE Prescriptions as of 08/23/2023 - levothyroxine [...] by Arslan GARCIA [facility] AMANDA CORTEZ ([id number]) 1990 F Date Time Provider Department 02/14/23 Arslan GARCIA During your visit today, we recorded the following information about you: Obi Genao 02/14/2023 9:54 AM Signed Patient is scheduled for appointments Arslan Garcia MD [facility] [place]; Obi Genao 4 months with labs. Orders have been placed in [facility]. Allergies As of Date: 02/14/2023 Noted Allergy Reaction CECLOR (CEFACLOR) 04/11/2022 4 - Hives 12 - Shortness of Breath PENICILLINS 04/11/2022 4 - Hives 12 - Shortness of Breath Date Reviewed: 05/04/2022 Reviewed by: Jerman Daisy - Fully Assessed Reason for Visit: Appointment Confirmation [9000] Prescriptions as of 02/14/2023 - levothyroxine (SYNTHROID) [...] Speci men Type: BLOOD SPECIMEN Ordering Facility: [facility] Address: [address] [place] [address] Performed By: #### 5 7021-8 #### [facility] CLIA [id number] [address] [place] [address] 26740 Basophils/100 WBC (Bld) 0.5 % Normal [facility] Comment on above: Order Comment: Speci men Type: BLOOD SPECIMEN Ordering Facility: [facility] Address: [address] [place] [address] Performed By: #### 5 7021-8 #### [facility] CLIA [id number] [address] [place] [address] 48962 Differential cell count method Nom (Bld) Auto Normal [facility] Comment on above: Order Comment: Speci men Type: BLOOD SPECIMEN Ordering Facility: [facility] Address: [address] [place] [address] Performed By: #### 5 7021-8 #### [facility] CLIA [id number] [address] [place] [address] 88322 Eosinophils (Bld) [#/Vol] 0.19 10*3/uL Normal <0.46 [facility] Comment on above: Order Comment: Speci men Type: BLOOD SPECIMEN Ordering Facility: [facility] Address: [address] [place] [address] Performed By: #### 5 7021-8 #### [facility] CLIA [id number] [address] [place] [address] 26196 Eosinophils/100 WBC (Bld) 2.5 % Normal [facility] Comment on above: Order Comment: Speci men Type: BLOOD SPECIMEN Ordering Facility: [facility] Address: [address] [place] [address] Performed By: #### 5 7021-8 #### [facility] CLIA [id number] [address] [place] [address] 03568 Erythrocyte distribution width (RBC) [Ratio] 13.3 % Normal 11.5-15.0 [facility] Comment on above: Order Comment: Speci men Type: BLOOD SPECIMEN Ordering Facility: [facility] Address: [address] [place] [address] Performed By: #### 5 7021-8 #### [facility] CLIA [id number] [address] [place] [address] 38138 Hematocrit (Bld) [Volume fraction] 47.7 % High 36.0-46.0 [facility] Comment on above: Order Comment: Speci men Type: BLOOD SPECIMEN Ordering Facility: [facility] Address: [address] [place] [address] Performed By: #### 5 7021-8 #### [facility] CLIA [id number] [address] [place] [address] 07569 Hemoglobin (Bld) [Mass/Vol] 15.6 g/dL High 11.5-15.5 [facility] Comment on above: Order Comment: Speci men Type: BLOOD SPECIMEN Ordering Facility: [facility] Address: [address] [place] [address] Performed By: #### 5 7021-8 #### [facility] CLIA [id number] [address] [place] [address] 59865 Immature granulocytes (Bld) [#/Vol] 0.03 10*3/uL Normal <0.10 [facility] Comment on above: Order Comment: Speci men Type: BLOOD SPECIMEN Ordering Facility: [facility] Address: [address] [place] [address] Performed By: #### 5 7021-8 #### [facility] CLIA [id number] [address] [place] [address] 75426 Immature granulocytes/100 WBC (Bld) 0.4 % Normal [facility] Comment on above: Order Comment: Speci men Type: BLOOD SPECIMEN Ordering Facility: [facility] Address: [address] [place] [address] Performed By: #### 5 7021-8 #### [facility] CLIA [id number] [address] [place] [address] 83525 Lymphocytes (Bld) [#/Vol] 2.30 10*3/uL Normal 1.00-4.00 [facility] Comment on above: Order Comment: Speci men Type: BLOOD SPECIMEN Ordering Facility: [facility] Address: [address] [place] [address] Performed By: #### 5 7021-8 #### [facility] CLIA [id number] [address] [place] [address] 85330 Lymphocytes/100 WBC (Bld) 29.7 % Normal [facility] Comment on above: Order Comment: Speci men Type: BLOOD SPECIMEN Ordering Facility: [facility] Address: [address] [place] [address] Performed By: #### 5 7021-8 #### [facility] CLIA [id number] [address] [place] [address] 59344 MCH (RBC) [Entitic mass] 28.8 pg Normal 26.0-34.0 [facility] Comment on above: Order Comment: Speci men Type: BLOOD SPECIMEN Ordering Facility: [facility] Address: [address] [place] [address] Performed By: #### 5 7021-8 #### [facility] CLIA [id number] [address] [place] [address] 30473 MCHC (RBC) [Mass/Vol] 32.7 g/dL Normal 30.5-36.0 [facility] Comment on above: Order Comment: Speci men Type: BLOOD SPECIMEN Ordering Facility: [facility] Address: [address] [place] [address] Performed By: #### 5 7021-8 #### [facility] CLIA [id number] [address] [place] [address] 87829 MCV (RBC) [Entitic vol] 88.2 fL Normal 80.0-100.0 [facility] Comment on above: Order Comment: Speci men Type: BLOOD SPECIMEN Ordering Facility: [facility] Address: [address] [place] [address] Performed By: #### 5 7021-8 #### [facility] CLIA [id number] [address] [place] [address] 01997 Monocytes (Bld) [#/Vol] 0.49 10*3/uL Normal <0.87 [facility] Comment on above: Order Comment: Speci men Type: BLOOD SPECIMEN Ordering Facility: [facility] Address: [address] [place] [address] Performed By: #### 5 7021-8 #### [facility] CLIA [id number] [address] [place] [address] 47704 Monocytes/100 WBC (Bld) 6.3 % Normal [facility] Comment on above: Order Comment: Speci men Type: BLOOD SPECIMEN Ordering Facility: [facility] Address: [address] [place] [address] Performed By: #### 5 7021-8 #### [facility] CLIA [id number] [address] [place] [address] 63758 Neutrophils (Bld) [#/Vol] 4.70 10*3/uL Normal 1.45-7.50 [facility] Comment on above: Order Comment: Speci men Type: BLOOD SPECIMEN Ordering Facility: [facility] Address: [address] [place] [address] Performed By: #### 5 7021-8 #### [facility] CLIA [id number] [address] [place] [address] 06413 Neutrophils/100 WBC (Bld) 60.6 % Normal [facility] Comment on above: Order Comment: Speci men Type: BLOOD SPECIMEN Ordering Facility: [facility] Address: [address] [place] [address] Performed By: #### 5 7021-8 #### [facility] CLIA [id number] [address] [place] [address] Nucleated RBC (Bld) [#/Vol] 10*3/uL Normal <0.01 [facility] Comment on above: Order Comment: Speci men Type: BLOOD SPECIMEN Ordering Facility: [facility] Address: [address] [place] [address] Performed By: #### 5 7021-8 #### [facility] CLIA [id number] [address] [place] [address] 60574 Nucleated RBC/100 WBC (Bld) [Ratio] 0.0 /100 WBC Normal [facility] Comment on above: Order Comment: Speci men Type: BLOOD SPECIMEN Ordering Facility: [facility] Address: [address] [place] [address] Performed By: #### 5 7021-8 #### [facility] CLIA [id number] [address] [place] [address] 31771 Platelet mean volume (Bld) [Entitic vol] 9.6 fL Normal 9.0-12.7 [facility] Comment on above: Order Comment: Speci men Type: BLOOD SPECIMEN Ordering Facility: [facility] Address: [address] [place] [address] Performed By: #### 5 7021-8 #### [facility] CLIA [id number] [address] [place] [address] 02066 Platelets (Bld) [#/Vol] 248 10*3/uL Normal 150-400 [facility] Comment on above: Order Comment: Speci men Type: BLOOD SPECIMEN Ordering Facility: [facility] Address: [address] [place] [address] Performed By: #### 5 7021-8 #### [facility] CLIA [id number] [address] [place] [address] 72454 RBC (Bld) [#/Vol] 5.41 10*6/uL High 3.90-5.20 [facility] Comment on above: Order Comment: Speci men Type: BLOOD SPECIMEN Ordering Facility: [facility] Address: [address] [place] [id number] Performed By: #### 5 7021-8 #### [facility] CLIA [id number] [address] [place] [address] 05596 WBC (Bld) [#/Vol] 7.75 10*3/uL Normal 3.70-11.00 [facility] Comment on above: Order Comment: Speci men Type: BLOOD SPECIMEN Ordering Facility: [facility] Address: [place] [address] Performed By: #### 5 7021-8 #### [facility] CLIA [id number] [address] [place] [address] 24298 T3 SerPl-mCncon 02-01-2023 T3 [Mass/Vol] 123 ng/dL Normal 79-165 [facility] Comment on above: Order Comment: Speci men Type: BLOOD SPECIMEN Ordering Facility: [facility] Address: [address] [place] [address] Performed By: #### 3 053-6, 3016-3, 3026-2 #### [facility] CLIA [id number] [address] [place] [address] [place] T4 SerPl-mCncon 02-01-2023 T4 [Mass/Vol] 11.9 ug/dL High 5.5-10.2 [facility] Comment on above: Order Comment: Speci men Type: BLOOD SPECIMEN Ordering Facility: [facility] Address: [address] [place] [address] Performed By: #### 3 053-6, 3016-3, 3026-2 #### [facility] CLIA [id number] [address] [place] [address] [place] THYROGLOBULIN BY MASS SPECTR OMETRYon 02-01-2023 THYROGLOBULIN, LC-MS/MS <0.5 Low 1.3-31.8 [facility] Comment on above: Order Comment: Speci men Type: BLOOD SPECIMEN Ordering Facility: [facility] Address: [address] [place] [address] Result Comment: Results obtained with different test [...] developed and its performance characteristics determined by [facility]. It has not been cleared or approved by the [place] Food and Drug Administration. This test was performed in a CLIA certified laboratory and is intended for clinical purposes. Performed By: [facility] [address] [place] [address] Service Liaison Representative: Prem Willis MD, PhD CLIA Number: [id number] Performed By: #### T [facility] #### [facility] CLIA [id number] [address] [place] [address]894 TSH [facility] 02-01-2023 TSH Qn 0.960 m[IU]/L Normal 0.270-4.200 [facility] Comment on above: Order Comment: Speci men Type: BLOOD SPECIMEN Ordering Facility: [facility] Address: [address] [place] [place] [id number] Result Comment: If t he patient is , TSH reference range varies by gestational period: First Trimester (weeks 9-12): 0.180-2.990 mIU/L Second Trimester: 0.110-3.980 mIU/L Third Trimester: 0.480-4.710 mIU/L Suman Graf et al. A Practical Approach for the Verifications and Determination of Site- and Trimester-Specific Reference Intervals for Thyroid Function tests in . Thyroid, 2019:29:3:412-420. Rajesh Holman, et al. 2017 Guidelines of the [place] [employer] for the Diagnosis and Management of Thyroid Disease during and the . Thyroid, 2017:27:3:315-389. Performed By: #### 3 053-6, 3016-3, 3026-2 #### [facility] CLIA [id number] [address] [place] [address] [place] PREG QUANT HCGon 08-17-2022 HCG QUANT 1 mIU/mL Normal [facility] Comment on above: Performed By: #### P REGQNT #### [facility] [address] [place] [address] Dr. Prashant Kang HCG RANGE SEE BELOW Normal [facility] Comment on above: Result Comment: 5-50 0.2-1 WEEK 50-500 1-2 WEEKS 100-5,000 2-3 WEEKS 500-10,000 3-4 WEEKS 1,000-50,000 4-5 WEEKS 10,000-100,000 5-6 WEEKS 15,000-200,000 6-8 WEEKS 10,000-100,000 2-3 MONTHS Performed By: #### P REGQNT #### [facility] [address] [place] [address] Dr. Prashant Kang PREG QUANT HCGon 07-04-2022 HCG QUANT <1 Normal [facility] Comment on above: Performed By: #### P REGQNT #### [facility] [address] [place] [address] Dr. Prashant Kang HCG RANGE SEE BELOW Normal [facility] Comment on above: Result Comment: 5-50 0.2-1 WEEK 50-500 1-2 WEEKS 100-5,000 2-3 WEEKS 500-10,000 3-4 WEEKS 1,000-50,000 4-5 WEEKS 10,000-100,000 5-6 WEEKS 15,000-200,000 6-8 WEEKS 10,000-100,000 2-3 MONTHS Performed By: #### P REGQNT #### [facility] [address] [place] [address] Dr. Prashant Kang PREG QUANT HCGon 05-16-2022 HCG QUANT <1 Normal [facility] Comment on above: Performed By: #### P TT, PT #### [facility] [address] [place] [address] Dr. Prashant Kang HCG RANGE SEE BELOW Normal [facility] Comment on above: Result Comment: 5-50 0.2-1 WEEK 50-500 1-2 WEEKS 100-5,000 2-3 WEEKS 500-10,000 3-4 WEEKS 1,000-50,000 4-5 WEEKS 10,000-100,000 5-6 WEEKS 15,000-200,000 6-8 WEEKS 10,000-100,000 2-3 MONTHS Performed By: #### P TT, PT #### [facility] [address] [place] [address] Dr. Prashant Kang PREG QUANT HCGon 05-08-2022 HCG QUANT <1 Normal [facility] Comment on above: Performed By: #### P REGQNT #### [facility] [address] [place] [address] Dr. Prashant Kang HCG RANGE SEE BELOW Normal [facility] Comment on above: Result Comment: 5-50 0.2-1 WEEK 50-500 1-2 WEEKS 100-5,000 2-3 WEEKS 500-10,000 3-4 WEEKS 1,000-50,000 4-5 WEEKS 10,000-100,000 5-6 WEEKS 15,000-200,000 6-8 WEEKS 10,000-100,000 2-3 MONTHS Performed By: #### P REGQNT #### [facility] [address] [place] [address] Dr. Prashant aKng CALCIUMon 03-08-2022 Calcium [Mass/Vol] 8.6 mg/dL Normal 8.5-10.1 [facility] Comment on above: Performed By: #### C A #### [facility] [address] [place] [address] Dr. Prashant Kang CALCIUMon 03-07-2022 Calcium [Mass/Vol] 8.4 mg/dL Critically low 8.5-10.1 [facility] Comment on above: Performed By: #### C A #### [facility] [address] [place] [address] Dr. Prashant Kang PREG HCG QUALon 03-07-2022 , QUAL Negative Normal NEGATIVE [facility] Comment on above: Performed By: #### P REG #### [facility] [address] [place] [address] Dr. Prashant Kang Covid-19 PCR (CVDTB)on SARS-CoV-2 (COVID-19) RNA DENEEN+probe Ql (Unsp spec) Not detected Normal NOT DETECTED [facility] Comment on above: Result Comment: This test is not yet approved or cleared by the [place] FDA. When there are no FDA-approved or cleared tests available, and other criteria are met, FDA can make tests available under an emergency access mechanism called an Emergency Use Authorization (EUA). The EUA for this test is supported by the Supervisor Pumping of Health and Human Service's (HHS's) declaration [...] SARS-CoV-2. Performed By: #### C VDTBH #### [facility] [address] [place] [address] Dr. Prashant Kang CALCIUMon 02-24-2022 Calcium [Mass/Vol] 8.8 mg/dL Normal 8.5-10.1 [facility] Comment on above: Performed By: #### P TT, PT #### [facility] [address] [place] [address] Dr. Prashant Kang CBC AUTO DIFFon 02-24-2022 BASO # 0.0 103/ul Normal 0.0-0.1 [facility] Comment on above: Performed By: #### P TT, PT #### [facility] [address] [place] [address] Dr. Prashant Kang Basophils/100 WBC (Bld) 0.3 % Normal 0.2-2.0 [facility] Comment on above: Performed By: #### P TT, PT #### [facility] [address] [place] [address] Dr. Prashant Kang EO # 0.1 103/ul Normal 0.0-0.7 [facility] Comment on above: Performed By: #### P TT, PT #### [facility] [address] [place] [address] Dr. Prashant Kang Eosinophils/100 WBC (Bld) 1.5 % Normal 0.9-7.0 [facility] Comment on above: Performed By: #### P TT, PT #### [facility] [address] [place] [address] Dr. Prashant Kang Erythrocyte distribution width (RBC) [Ratio] 13.8 % Normal 11.0-15.0 [facility] Comment on above: Performed By: #### P TT, PT #### [facility] [address] [place] [address] Dr. Prashant Kang Hematocrit (Bld) [Volume fraction] 45.5 % Normal 36.0-48.0 [facility] Comment on above: Performed By: #### P TT, PT #### [facility] [address] [place] [address] Dr. Prashant Kang Hemoglobin (Bld) [Mass/Vol] 14.6 g/dL Normal 12.0-16.0 [facility] Comment on above: Performed By: #### P TT, PT #### [facility] [address] [place] [address] Dr. Prashant Kang IG # 0.02 10e3/ul Normal 0.00-0.03 [facility] Comment on above: Performed By: #### P TT, PT #### [facility] [address] [place] [address] Dr. Prashant Kang IG % 0.3 % Normal 0.0-0.5 [facility] Comment on above: Performed By: #### P TT, PT #### [facility] [address] [place] [address] Dr. Prashant Kang LYMPH # 1.6 103/ul Normal 1.2-3.8 [facility] Comment on above: Performed By: #### P TT, PT #### [facility] [address] [place] [address] Dr. Prashant Kang Lymphocytes/100 WBC (Bld) 23.5 % Normal 20.5-60.0 [facility] Comment on above: Performed By: #### P TT, PT #### [facility] [address] [place] [address] Dr. Prashant Kang MANUAL DIFF REQ NO Normal [facility] Comment on above: Performed By: #### P TT, PT #### [facility] [address] [place] [address] Dr. Prashant Kang MCH (RBC) [Entitic mass] 26.5 pg Critically low 26.7-34.0 [facility] Comment on above: Performed By: #### P TT, PT #### [facility] [address] [place] [address] Dr. Prashant Kang MCHC (RBC) [Mass/Vol] 32.1 g/dL Normal 29.9-35.2 [facility] Comment on above: Performed By: #### P TT, PT #### [facility] [address] [place] [address] Dr. Prashant Kang MCV (RBC) [Entitic vol] 82.7 fL Normal 81.0-99.0 [facility] Comment on above: Performed By: #### P TT, PT #### [facility] [address] [place] [address] Dr. Prashant Kang MONO # 0.5 103/ul Normal 0.3-0.8 [facility] Comment on above: Performed By: #### P TT, PT #### [facility] [address] [place] [address] Dr. Prashant Kang Monocytes/100 WBC (Bld) 7.5 % Normal 1.7-12.0 [facility] Comment on above: Performed By: #### P TT, PT #### [facility] [address] [place] [address] Dr. Prashant Kang NEUT # 4.6 103/ul Normal 1.4-6.5 [facility] Comment on above: Performed By: #### P TT, PT #### [facility] [address] [place] [address] Dr. Prashant Kang Neutrophils/100 WBC (Bld) 66.9 % Normal 43.0-75.0 [facility] Comment on above: Performed By: #### P TT, PT #### [facility] [address] [place] [address] Dr. Prashant Kang Platelet mean volume (Bld) [Entitic vol] 9.9 fL Normal 9.5-13.5 [facility] Comment on above: Performed By: #### P TT, PT #### [facility] [address] [place] [address] Dr. Prashant Kang PLT 239 103/ul Normal 150-450 [facility] Comment on above: Performed By: #### P TT, PT #### [facility] [address] [place] [address] Dr. Prashant Kang RBC 5.50 106/ul Critically high 4.20-5.40 The [facility] Comment on above: Performed By: #### P TT, PT #### [facility] [address] [place] [address] Dr. Prashant Kang WBC 6.8 103/ul Normal 4.0-11.0 [facility] Comment on above: Performed By: #### P TT, PT #### [facility] [address] [place] [address] Dr. Prashant Kang MAGNESIUMon 02-24-2022 Magnesium [Mass/Vol] 2.0 mg/dL Normal 1.8-2.4 [facility] Comment on above: Performed By: #### P TT, PT #### [facility] [address] [place] [address] Dr. Prashant Kang PHOSPHORUSon 02-24-2022 Phosphate [Mass/Vol] 3.3 mg/dL Normal 2.6-4.7 [facility] Comment on above: Performed By: #### P TT, PT #### [facility] [address] [place] [address] Dr. Prashant Kang PROTIMEon 02-24-2022 INR Coag (PPP) [Relative time] 1.01 {INR} Normal [facility] Comment on above: Performed By: #### P TT, PT #### [facility] [address] [place] [address] Dr. Prashant Kang INR GUIDELINES SEE BELOW Normal [facility] Comment on above: Result Comment: SALIMA RED INR: 2.0 - 3.0 CONDITIONS NOT LISTED BELOW 2.5 - 3.5 FOR PROSTHETIC HEART VALVE REPLACEMENT 2.5 - 3.5 RECURRENT THROMBOSIS Performed By: #### P TT, PT #### [facility] [address] [place], [place] [id number] Dr. Prashant Kang PT Coag (PPP) [Time] 10.9 s Normal 9.0-11.6 [facility] Comment on above: Performed By: #### P TT, PT #### [facility] [address] [place] [address] Dr. Prashant Kang PTTon 02-24-2022 aPTT Coag (Bld) [Time] 28.9 s Normal 22.3-36.2 [facility] Comment on above: Performed By: #### P TT, PT #### [facility] [address] [place] [address] Dr. Prashant Kang TSHon 02-24-2022 TSH 1.163 uIU/mL Normal 0.358-3.[address] [facility] Comment on above: Performed By: #### P TT, PT #### [facility] [address] [place] [address] Dr. Prashant Kang US THYROID FN ASP BXon 02-09 US THYROID FN ASP BX Begin Addendum #1 COLLECTED DATE/TIME: 02/03/2022 11:36 EDT Final Diagnosis Report for [facility], [place] (A/B) THYROID ISTHMUS NODULE, FINE NEEDLE [...] Pathology results are pending. Normal [facility] CT NECK ST W CONon [...] SHAILESH EMERY Date: 2022-01-20 13:05 Normal [facility] US THYROIDon 01-20-2022 US THYROID [...] isthmus nodule. Consider fine-needle aspiration TI-RADS: The [employer] TI-RADS committee's white paper recommendations for thyroid lesions classified as TR4 (moderately suspicious) are listed below: > 1.0 cm. Follow-up ultrasound in 1, 2, 3, and 5 years. > 1.5 cm. FNA. J. Am More Radiol 2017;[id number]. Electronically authenticated by: SHAILESH EMERY Date: 2022-01-20 21:46 Normal [facility] CBC AUTO DIFFon 01-08-2022 BASO # 0.0 103/ul Normal 0.0-0.1 [facility] Comment on above: Performed By: #### P TT, PT #### [facility] [address] [place] [address] Dr. Prashant Kang Basophils/100 WBC (Bld) 0.4 % Normal 0.2-2.0 [facility] Comment on above: Performed By: #### P TT, PT #### [facility] [address] [place] [address] Dr. Prashant Kang EO # 0.2 103/ul Normal 0.0-0.7 [facility] Comment on above: Performed By: #### P TT, PT #### [facility] [address] [place] [address] Dr. Prashant Kang Eosinophils/100 WBC (Bld) 3.4 % Normal 0.9-7.0 [facility] Comment on above: Performed By: #### P TT, PT #### [facility] [address] [place] [address] Dr. Prashant Kang Erythrocyte distribution width (RBC) [Ratio] 14.6 % Normal 11.0-15.0 [facility] Comment on above: Performed By: #### P TT, PT #### [facility] [address] [place] [address] Dr. Prashant Kang Hematocrit (Bld) [Volume fraction] 42.9 % Normal 36.0-48.0 [facility] Comment on above: Performed By: #### P TT, PT #### [facility] [address] [place] [address] Dr. Prashant Kang Hemoglobin (Bld) [Mass/Vol] 13.4 g/dL Normal 12.0-16.0 [facility] Comment on above: Performed By: #### P TT, PT #### [facility] [address] [place] [address] Dr. Prashant Kang IG # 0.02 10e3/ul Normal 0.00-0.03 [facility] Comment on above: Performed By: #### P TT, PT #### [facility] [address] [place] [address] Dr. Prashant Knag IG % 0.3 % Normal 0.0-0.5 [facility] Comment on above: Performed By: #### P TT, PT #### [facility] [address] [place] [address] Dr. Prashant Kang LYMPH # 2.0 103/ul Normal 1.2-3.8 [facility] Comment on above: Performed By: #### P TT, PT #### [facility] [address] [place] [address] Dr. Prashant Kang Lymphocytes/100 WBC (Bld) 29.7 % Normal 20.5-60.0 [facility] Comment on above: Performed By: #### P TT, PT #### [facility] [address] [place] [address] Dr. Prashant Kang MANUAL DIFF REQ NO Normal [facility] Comment on above: Performed By: #### P TT, PT #### [facility] [address] [place] [address] Dr. Prashant Kang MCH (RBC) [Entitic mass] 26.3 pg Critically low 26.7-34.0 [facility] Comment on above: Performed By: #### P TT, PT #### [facility] [address] [place] [address] Dr. Prashant Kang MCHC (RBC) [Mass/Vol] 31.2 g/dL Normal 29.9-35.2 [facility] Comment on above: Performed By: #### P TT, PT #### [facility] [address] [place] [address] Dr. Prashant Kang MCV (RBC) [Entitic vol] 84.1 fL Normal 81.0-99.0 [facility] Comment on above: Performed By: #### P TT, PT #### [facility] [address] [place] [address] Dr. Prashant Kang MONO # 0.6 103/ul Normal 0.3-0.8 [facility] Comment on above: Performed By: #### P TT, PT #### [facility] [address] [place] [address] Dr. Prashant Kang Monocytes/100 WBC (Bld) 8.7 % Normal 1.7-12.0 [facility] Comment on above: Performed By: #### P TT, PT #### [facility] [address] [place] [address] Dr. Prashant Kang NEUT # 3.9 103/ul Normal 1.4-6.5 [facility] Comment on above: Performed By: #### P TT, PT #### [facility] [address] [place] [address] Dr. Prashant Kang Neutrophils/100 WBC (Bld) 57.5 % Normal 43.0-75.0 [facility] Comment on above: Performed By: #### P TT, PT #### [facility] [address] [place] [address] Dr. Prahsant Kang Platelet mean volume (Bld) [Entitic vol] 9.9 fL Normal 9.5-13.5 [facility] Comment on above: Performed By: #### P TT, PT #### [facility] [address] [place] [address] Dr. Prashant Kang PLT 241 103/ul Normal 150-450 [facility] Comment on above: Performed By: #### P TT, PT #### [facility] [address] [place] [address] Dr. Prashant Kang RBC 5.10 106/ul Normal 4.20-5.40 [facility] Comment on above: Performed By: #### P TT, PT #### [facility] [address] [place] [address] Dr. Prashant Kang WBC 6.8 103/ul Normal 4.0-11.0 [facility] Comment on above: Performed By: #### P TT, PT #### [facility] [address] [place] [address] Dr. Prashant Kang GROUP A STREP CULTUREon 12-29 S. pyogenes Ag Ql (Unsp spec) Culture Observations: NEGATIVE FOR GROUP A STREPTOCOCCUS. Normal [facility] Comment on above: Performed By: #### P TT, PT #### [facility] [address] [place] [address] Dr. Prashant Kang PROF 14(COMP METB)on 022 Albumin [Mass/Vol] 3.6 g/dL Normal 3.4-5.0 [facility] Comment on above: Performed By: #### C MP #### [facility] [address] [place] [address] Dr. Prashant Kang Albumin/Globulin [Mass ratio] 0.8 {ratio} Normal [facility] Comment on above: Performed By: #### C MP #### [facility] [address] [place] [address] Dr. Prashant Kang ALP [Catalytic activity/Vol] 74 U/L Normal 46-116 [facility] Comment on above: Performed By: #### C MP #### [facility] [address] [place] [address] Dr. Prashant Kang ALT [Catalytic activity/Vol] 40 U/L Normal 14-59 [facility] Comment on above: Performed By: #### C MP #### [facility] [address] [place] [address] Dr. Prashant Kang Anion gap [Moles/Vol] 14.0 mmol/L Normal [facility] Comment on above: Performed By: #### C MP #### [facility] [address] [place] [address] Dr. Prashant Kang AST [Catalytic activity/Vol] 31 U/L Normal 15-37 [facility] Comment on above: Performed By: #### C MP #### [facility] [address] [address] [address] Prashant Kang Bilirubin [Mass/Vol] 0.4 mg/dL Normal 0.2-1.0 [facility] Comment on above: Performed By: #### C MP #### [facility] [address] [address] [address] Prashant Kang Calcium [Mass/Vol] 8.8 mg/dL Normal 8.5-10.1 [facility] Comment on above: Performed By: #### C MP #### [facility] [address] [address] [address] Prashant Kang Chloride [Moles/Vol] 105 mmol/L Normal 98-107 [facility] Comment on above: Performed By: #### C MP #### [facility] [address] [place] [address] Dr. Prashant Kang CO2 [Moles/Vol] 26.6 mmol/L Normal 21.0-32.0 The [facility] Comment on above: Performed By: #### C MP #### [facility] [address] [address] [address] Prashant Kang Creatinine [Mass/Vol] 0.80 mg/dL Normal 0.55-1.02 [facility] Comment on above: Performed By: #### C MP #### [facility] [address] [place] [address] Dr. Prashant Kang EGFR-AF MALAGASY >60 Normal >=60 The [facility] Comment on above: Performed By: #### C MP #### [facility] [address] [address] [address] Prashant Kang EGFR-NON AF MALAGASY >60 Normal >=60 [facility] Comment on above: Performed By: #### C MP #### [facility] [address] [place] [address] Dr. Prashant Kang Globulin (S) [Mass/Vol] 4.3 g/dL Normal [facility] Comment on above: Performed By: #### C MP #### [facility] [address] [place] [address] Dr. Prashant Kang Glucose [Mass/Vol] 101 mg/dL Normal 74-106 [facility] Comment on above: Performed By: #### C MP #### [facility] [address] [address] [address] Prashant Kang Potassium [Moles/Vol] 4.6 mmol/L Normal 3.5-5.1 [facility] Comment on above: Performed By: #### C MP #### [facility] [address] [address] [address] Prashant Kang Protein [Mass/Vol] 7.9 g/dL Normal 6.4-8.2 [facility] Comment on above: Performed By: #### C MP #### [facility] [address] [address] [address] Prashant Kang Sodium [Moles/Vol] 141 mmol/L Normal 136-145 [facility] Comment on above: Performed By: #### C MP #### [facility] [address] [address] [address] Prashant Kang Urea nitrogen [Mass/Vol] 11.0 mg/dL Normal 7.0-18.0 [facility] Comment on above: Performed By: #### C MP #### [facility] [address] [place] [address] Dr. Prashant Kang Urea nitrogen/Creatinine [Mass ratio] 13.8 mg/mg Normal [facility] Comment on above: Performed By: #### C MP #### [facility] [address] [place] [address] Dr. Prashant Kang STREPT SCREENon 01-08-2022 STREP SCREEN A Negative Normal NEGATIVE [facility] Comment on above: Performed By: #### P TT, PT #### [facility] [address] [place] [address] Dr. Prashant Kang XR NECK SOFT TISSUEon [...] MIKE BARNETT Date: 2022-01-08 04:43 Normal [facility] Covid-19 PCR (CVDTBH)on SARS-CoV-2 (COVID-19) RNA DENEEN+probe Ql (Unsp spec) Not detected Normal NOT DETECTED [facility] Comment on above: Result Comment: This test is not yet approved or cleared by the [place] FDA. When there are no FDA-approved or cleared tests available, and other criteria are met, FDA can make tests available under an emergency access mechanism called an Emergency Use Authorization (EUA). The EUA for this test is supported by the Supervisor Pumping of Health and Human Service's (HHS's) declaration [...] By: #### P TT, PT #### [facility] [address] [place] [address] Dr. Prashant Kang Vital Signs Date Time Vital Sign Value Performing Clinician Faci lity 05-12-2024 13:54-0500 Body mass index (BMI) [Ratio] 37.7 kg/m2 [employer] Work Phone: [facility] 05-12-2024 13:54-0500 Body weight 93.5 kg [employer] Work Phone: [facility] 05-12-2024 13:54-0500 Diastolic blood pressure 60 mm[Hg] [employer] Work Phone: [facility] 05-12-2024 13:54-0500 Systolic blood pressure 120 mm[Hg] Acosta Shania DO Work Phone: [facility] 04-14-2024 13:52-0500 Body mass index (BMI) [Ratio] 39.69 kg/m2 Acosta Shania DO Work Phone: [facility] 04-14-2024 13:52-0500 Body weight 98.43 kg Acosta Shania DO Work Phone: [facility] 04-14-2024 13:52-0500 Diastolic blood pressure 72 mm[Hg] Acosta Shania DO Work Phone: [facility] 04-14-2024 13:52-0500 Systolic blood pressure 122 mm[Hg] Acosta Shania DO Work Phone: [facility] 03-31-2024 13:44-0500 Body mass index (BMI) [Ratio] 40.75 kg/m2 Acosta Shania DO Work Phone: [facility] 03-31-2024 13:44-0500 Body weight 101.06 kg Acosta Shania DO Work Phone: [facility] 03-31-2024 13:44-0500 Diastolic blood pressure 70 mm[Hg] Acosta Shania DO Work Phone: [facility] 03-31-2024 13:44-0500 Systolic blood pressure 120 mm[Hg] Acosta Shania DO Work Phone: [facility] 03-24-2024 13:16-0500 Body mass index (BMI) [Ratio] 40.02 kg/m2 Acosta Shania DO Work Phone: [facility] 03-24-2024 13:16-0500 Body weight 99.25 kg Acosta Shania DO Work Phone: [facility] 03-24-2024 13:16-0500 Diastolic blood pressure 70 mm[Hg] Acosta Shania DO Work Phone: [facility] 03-24-2024 13:16-0500 Systolic blood pressure 120 mm[Hg] Acosta Shania DO Work Phone: [facility] 03-10-2024 13:45-0500 Body mass index (BMI) [Ratio] 40.38 kg/m2 Acosta Shania DO Work Phone: [facility] 03-10-2024 13:45-0500 Body weight 100.15 kg Acosta Shania DO Work Phone: [facility] 03-10-2024 13:45-0500 Diastolic blood pressure 76 mm[Hg] Acosta Shania DO Work Phone: [facility] 03-10-2024 13:45-0500 Systolic blood pressure 114 mm[Hg] Acosta Shania DO Work Phone: [facility] 02-25-2024 14:08-0400 Body mass index (BMI) [Ratio] 39.87 kg/m2 Kim YAO Work Phone: [facility] 02-25-2024 14:08-0400 Body weight 98.88 kg Kim Ml PA Work Phone: [facility] 02-25-2024 14:08-0400 Diastolic blood pressure 70 mm[Hg] Kim Ml PA Work Phone: [facility] 02-25-2024 14:08-0400 Systolic blood pressure 114 mm[Hg] Kim Mckeon PA Work Phone: [facility] 02-11-2024 11:10-0400 Body mass index (BMI) [Ratio] 40.2 kg/m2 Acosta Shania DO Work Phone: [facility] 02-11-2024 11:10-0400 Body weight 99.7 kg Acosta Shania DO Work Phone: [facility] 02-11-2024 11:10-0400 Diastolic blood pressure 64 mm[Hg] Acosta Shania DO Work Phone: [facility] 02-11-2024 11:10-0400 Systolic blood pressure 112 mm[Hg] Acosta Shania DO Work Phone: [facility] 01-14-2024 13:36-0400 Body mass index (BMI) [Ratio] 39.1 kg/m2 Acosta Shania DO Work Phone: [facility] 01-14-2024 13:36-0400 Body weight 96.98 kg Acosta Shania DO Work Phone: [facility] 01-14-2024 13:36-0400 Diastolic blood pressure 60 mm[Hg] Acosta Shania DO Work Phone: [facility] 01-14-2024 13:36-0400 Systolic blood pressure 120 mm[Hg] Acosta Shania DO Work Phone: [facility] 12-17-2023 14:20-0400 Body mass index (BMI) [Ratio] 39.51 kg/m2 Acosta Shania DO Work Phone: [facility] 12-17-2023 14:20-0400 Body weight 97.98 kg Acosta Shania DO Work Phone: [facility] 12-17-2023 14:20-0400 Diastolic blood pressure 80 mm[Hg] Acosta Shania DO Work Phone: [facility] 12-17-2023 14:20-0400 Systolic blood pressure 124 mm[Hg] Acosta Shania DO Work Phone: [facility] 06-12-2023 13:54-0500 Body mass index (BMI) [Ratio] 40.6 kg/m2 Acosta Shania DO Work Phone: [facility] 06-12-2023 13:54-0500 Body weight 100.7 kg Acosta Shania DO Work Phone: [facility] 06-12-2023 13:54-0500 Diastolic blood pressure 74 mm[Hg] Acosta Shania DO Work Phone: [facility] 06-12-2023 13:54-0500 Systolic blood pressure 118 mm[Hg] Acosta Shania DO Work Phone: [facility] 05-04-2022 09:40-0500 Body temperature 97.2 [degF] JONNY Garcia MD Work Phone: [facility] 05-04-2022 09:40-0500 Body weight 88.81 kg JONNY Garcia MD Work Phone: [facility] 05-04-2022 09:40-0500 Diastolic blood pressure 73 mm[Hg] NA Jose BULLOCK Work Phone: [facility] 05-04-2022 09:40-0500 Heart rate 67 /min JONNY Garcia MD Work Phone: [facility] 05-04-2022 09:40-0500 Respiratory rate 16 /min JONNY Garcia MD Work Phone: [facility] 05-04-2022 09:40-0500 SaO2% (BldA) [Mass fraction] 100 % JONNY Garcia MD Work Phone: [facility] 05-04-2022 09:40-0500 Systolic blood pressure 113 mm[Hg] NA Jose BULLOCK Work Phone: [facility] Encounters Encounter Date Encounter Type Care Provider Facility Start: 05-12-2024 End: 05-12-2024 Office outpatient visit 15 minutes Acosta Shania DO Work Phone: [facility] Comment on above: 6 weeks f ollow-up; Pre-operative exam Start: 05-12-2024 End: 05-12-2024 Preprocedural examination done Acosta Shania DO Work Phone: [facility] Start: 05-12-2024 End: 05-12-2024 ambulatory ACOSTA SHANIA Not Available Start: 04-26-2024 End: 04-26-2024 ambulatory Sara Medellin Facility:[facility] Start: 04-19-2024 End: 04-19-2024 Clinisync Result Encounter [...] Start: 02-26-2024 End: 02-26-2024 Patient encounter procedure [facility] Comment on [...] Bamboo flowsheet Acosta Shania DO Work Phone: [facility] Start: 02-11-2024 End: 02-11-2024 Bamboo flowsheet Acosta Shania DO Work Phone: [facility] Start: 02-11-2024 End: 02-11-2024 Office outpatient visit 15 minutes Aocsta Shania DO Work Phone: [facility] Comment on above: Third trimester preg yogesh; Thyroid disease (CMS/HCC); 29 weeks gestation of ; History of placental abruption; Non compliance w medication regimen Start: 02-11-2024 End: 02-11-2024 ambulatory ACOSTA SHANIA Not Available Start: 02-08-2024 End: 02-08-2024 Clinisync Result Encounter Acosta Shania DO Work Phone: [facility] External Department Unsolicited Start: 02-08-2024 End: 02-08-2024 Clinisync Result Encounter Acosta Shania DO Work Phone: [facility] External Department Unsolicited Start: 01-23-2024 End: 01-24-2024 Telephone encounter Arslan Garcia MD Work Phone: Rad[facility] Oncology Comment on above: Patient Question Start: 01-14-2024 End: 01-14-2024 ambulatory ACOSTA SHANIA Not Available Start: 01-14-2024 End: 01-14-2024 Office outpatient visit 15 minutes Acosta Shania DO Work Phone: [facility] Comment on above: 25 weeks gestation o f ; Diabetes mellitus screening; First trimester Start: 01-11-2024 End: 01-11-2024 ambulatory ACOSTA R SHANIA [facility] Start: 01-02-2024 End: 01-02-2024 Clinisync Result Encounter Acosta Shania DO Work Phone: [facility] External Department Unsolicited Start: 01-02-2024 End: [...] End: 02-08-2023 ambulatory SARA MEDELLIN Facility:[facility] Start: 02-01-2023 End: 02-01-2023 ambulatory SARA MEDELLIN Facility:[facility] Start: 11-09-2022 Telephone encounter Arslan Garcia MD Work Phone: [facility] Comment on above: Appointment Confirma tion Start: [...] encounter Arslan Garcia MD Work Phone: [facility] Comment on above: Missed Appointment Start: 04-20-2022 Patient encounter procedure [facility] Provider [facility] Department Start: 04-11-2022 End: 04-11-2022 Patient encounter procedure Lab/[place] [facility] Work Phone: Radiation Oncology Comment on above: Thyroid cancer (HCC) (Primary Dx) Start: 03-09-2022 Encounter for preprocedural laboratory examination DR CHARLIE E[facility] Start: 03-07-2022 End: 11-09-[address] [...] Adult BMI Screening Adult BMI Screen ing [facility] Start: 01-10-2025 Tobacco Screening Tobacco Screening [facility] Start: 05-12-2024 End: 05-12-2024 ambulatory 05/12/2024 1:40 PM EST Visit [facility] [address] [place] [address] Acosta Jauregui, DO [address] [place], [place] [id number] [facility] Start: 04-14-2024 End: 04-14-2024 Patient encounter procedure 04/14/2024 1:20 PM EST Routine [facility] [address] [place] [address] Acosta Jauregui, DO [address] [place], [place] [id number] [facility] Start: 03-31-2024 End: 03-31-2025 [...] PM EST Routine [facility] [address] [place] [id number] Acosta Jauregui, DO [address] [place], [place] [id number] [facility] Start: 03-10-2024 End: 03-10-2024 Patient encounter procedure 03/10/2024 1:00 PM EST Routine [facility] [address] [place] [id number] Acosta Jauregui, DO [address] [place], [place] [id number] [facility] Start: 02-25-2024 End: 02-24-2025 US biophysical profile w non stress test US biophysical profile w non stress test Imaging Routine Thyroid disease (CMS/HCC) Expected: 02/25/2024 (Approximate), Expires: 02/24/2025 [facility] Work Phone: Comment on above: Expected: 02/25/2024 (Approximate), Expires: 02/24/2025 Start: 02-25-2024 End: 02-25-2024 Patient encounter procedure [facility] Comment on above: Arrived Start: 02-11-2024 End: 02-10-2025 US biophysical profile w non stress test US biophysical profile w non stress test Imaging Routine Thyroid disease (CMS/HCC) 29 weeks gestation of History of placental abruption Expected: 02/11/2024 (Approximate), Expires: 02/10/2025 [facility] Work Phone: Comment on above: Expected: 02/11/2024 (Approximate), Expires: 02/10/2025 Start: 02-11-2024 End: 02-10-2025 US for US OB SCAN FOR GROWTH Imaging Routine Thyroid disease (CMS/HCC) 29 weeks gestation of History of placental abruption Expected: 02/11/2024 (Approximate), Expires: 02/10/2025 [facility] Comment on above: Expected: 02/11/2024 (Approximate), Expires: 02/10/2025 Start: 02-11-2024 End: 02-11-2024 Patient encounter procedure [facility] Comment on above: Arrived Start: 01-14-2024 End: 01-13-2025 CBC panel - Blood by Automated count CBC Lab Routine Diabetes mellitus screening Expected: 01/14/2024 (Approximate), Expires: 01/13/2025 [facility] Work Phone: Comment on above: Expected: 01/14/2024 (Approximate), Expires: 01/13/2025 Start: 01-14-2024 End: 01-14-2024 Patient encounter procedure 01/14/2024 1:20 PM EDT Routine [facility] [address] [place] [address] Acosta Jauregui, DO [address] [place], [place] [id number] [facility] Start: 12-30-2023 Covid-19 Vaccine ( season) Covid-19 Vaccine ( season) [facility] Start: 12-30-2023 Influenza vaccination [facility] Start: 08-15-2023 End: 11-14-2023 Thyroglobulin and Thyrogobulin Ab panel - Serum or Plasma THYROGLOBULIN, SERUM WITH REFLEX TO IA OR LC-MS/MS Lab Routine Thyroid cancer (HCC) Expected: 08/15/2023, Expires: 11/14/2023 [facility] Work Phone: Comment on above: Expected: 08/15/2023 , Expires: 11/14/2023 Start: 08-15-2023 End: 11-14-2023 Thyrotropin [Units/volume] in Serum or Plasma THYROID STIMULATING HORMONE Lab Routine Thyroid cancer (HCC) Expected: 08/15/2023, Expires: 11/14/2023 [facility] Work Phone: Comment on above: Expected: 08/15/2023 , Expires: 11/14/2023 Start: 08-15-2023 End: 11-14-2023 Thyroxine (T4) [Mass/volume] in Serum or Plasma T4/THYROXINE Lab Routine Thyroid cancer (HCC) Expected: 08/15/2023, Expires: 11/14/2023 [facility] Work Phone: Comment on above: Expected: 08/15/2023 , Expires: 11/14/2023 Start: 06-26-2023 End: 06-26-2023 Professional / ancillary services management 06/26/2023 1:00 PM EST Ancillary Procedure [facility] [address] [address] [facility] Start: 06-12-2023 End: 06-12-2024 US for US PELVIS-TRANSVAG IF INDICATED Imaging Routine Amenorrhea Expected: 06/12/2023 (Approximate), Expires: 06/12/2024 [facility] Comment on above: Expected: 06/12/2023 (Approximate), Expires: 06/12/2024 Start: 04-30-2023 Behavioral Health Screening Behavioral Health Screening [facility] Start: 04-30-2023 Depression Assessment Depression Ass essment [facility] Start: 12-29-2022 Covid-19 Vaccine () Covid-19 Vaccine () [facility] Start: 12-29-2022 Influenza vaccination [facility] Start: 07-02-2022 End: 09-01-2022 THYROGLOBULIN BY MASS SPECTROMETRY THYROGLOBULIN BY MASS SPECTROMETRY Lab Routine Thyroid cancer (HCC) Expected: 07/02/2022, Expires: 09/01/2022 [facility] Work Phone: Comment on above: Expected: 07/02/2022 , Expires: 09/01/2022 Start: 07-02-2022 End: 09-01-2022 Thyrotropin [Units/volume] in Serum or Plasma TSH BLD Lab Routine Thyroid cancer (HCC) Expected: 07/02/2022, Expires: 09/01/2022 [facility] Work Phone: Comment on above: Expected: 07/02/2022 , Expires: 09/01/2022 Start: 07-02-2022 End: 09-01-2022 Thyroxine (T4) [Mass/volume] in Serum or Plasma T4/THYROXINE BLOOD Lab Routine Thyroid cancer (HCC) Expected: 07/02/2022, Expires: 09/01/2022 [facility] Work Phone: Comment on above: Expected: 07/02/2022 , Expires: 09/01/2022 Start: 04-30-2022 DEPRESSION ASSESSMENT DEPRESSION ASS [facility] Start: 2022 HPV TESTING HPV TESTING [facility] Start: 2022 Screening for malign ant neoplasm of cervix HPV Testing [facility] Start: 12-29-2021 Influenza vaccination INFLUENZA (#1) [facility] Start: 04-30-2021 DEPRESSION ASSESSMENT DEPRESSION ASS [facility] Start: 2013 PAP TESTING PAP TESTING [facility] Start: 2013 Screening for malign ant neoplasm of cervix [facility] Start: 2011 DTaP,Tdap and Td Vaccines (1 - Tdap) DTaP,Tdap and Td Vaccines (1 - Tdap) [facility] Start: 2011 Hepatitis B Vaccine (1 of 3 - 19+ 3-dose series) Hepatitis B Vaccine (1 of 3 - 19+ 3-dose series) [facility] Start: 2011 Urine microalbumin profile [facility] Start: 2010 Adult BMI Follow Up Plan Adult BMI Follow Up Plan [facility] Start: 2010 Anxiety Screening Anxiety Screening [facility] Start: 2010 Depression Screening Depression Scre enlili [facility] Start: 2010 HEPATITIS C SCREENING HEPATITIS C SC [facility] Start: 2010 Hepatitis C screening Hepatitis C Sc [facility] Start: 2010 HIV SCREENING HIV SCREENING [facility] Start: 2010 HIV screening HIV Screening [facility] Start: 2004 Depression Screening Depression Scre [facility] Start: 1998 PNEUMOCOCCAL (1 - PCV) PNEUMOCOCCAL (1 - PCV) [facility] Start: 1998 Pneumococcal vaccination [facility] Start: 1992 COVID-19 VACCINE (#1) COVID-19 VACCI NE (#1) [facility] Start: 1992 HEPATITIS B (1 of 3 - 3-dose series) HEPATITIS B (1 of 3 - 3-dose series) [facility] Start: 1992 Hepatitis B Vaccine (1 of 3 - 3-dose series) Hepatitis B Vaccine (1 of 3 - 3-dose series) [facility] Start: 1992 Tobacco Counseling Tobacco Counselin g [facility] CBC W Auto Different ial panel - Blood CBC and differential Lab Routine Amenorrhea Ordered: 06/12/2023 [facility] Comment on above: Ordered: 06/12/2023 hCG, quantitative, hCG, quantitative, Lab Routine Amenorrhea Ordered: 06/12/2023 [facility] Comment on above: Ordered: 06/12/2023 Hemoglobin A1c measurement Hemoglobin A1c Lab Routine Amenorrhea Ordered: 06/12/2023 [facility] Comment on above: Ordered: 06/12/2023 Hemoglobin A1c/Hemoglobin.total in Blood Hemoglobin A1c Lab Routine Diabetes mellitus screening Ordered: 01/14/2024 [facility] Comment on above: Ordered: 01/14/2024 Hemoglobin A1c/Hemoglobin.total in Blood Hemoglobin A1c Lab Routine Diabetes mellitus screening Ordered: 12/17/2023 [facility] [employer] Work Phone: Comment on above: Ordered: 12/17/2023 Prolactin Prolactin Lab Ro utine Amenorrhea Ordered: 06/12/2023 [facility] Comment on above: Ordered: 06/12/2023 Thyrotropin [Units/volume] in Serum or Plasma TSH Lab Routine Amenorrhea Ordered: 06/12/2023 [facility] [employer] Work Phone: Comment on above: Ordered: 06/12/2023 [facility] Payers Date Payer Category Payer Self-pay 2022 Medicaid HMO [employer] [id number] 2020 Medicaid [id number] 2020 Medicaid (Managed Care) [employer] [id number] 1992 Unknown [id number] 2.16.840.1.792185.3.579.2. 593 1992 Unknown [id number] 2.16.840.1.052264.3.579.2. 593 1992 Unknown [id number] 2.16.840.1.248205.3.579.2. 593 1992 Unknown [id number] 2.16.840.1.627171.3.579.2. 593 1992 Unknown [id number] 2.16.840.1.808510.3.579.2. 593 1992 Unknown [id number] 2.16.840.1.518592.3.579.2. 593 1992 Unknown [id number] 2.16.840.1.556154.3.579.2. 593 1992 Unknown [id number] 2.16.840.1.729406.3.579.2. 593 1992 Unknown [id number] 2.16.840.1.998466.3.579.2. 593 1992 Unknown [id number] 2.16.840.1.350163.3.579.2. 593 1992 Unknown [id number] 2.16.840.1.287718.3.579.2. 593 1992 Unknown [id number] 2.16.840.1.749869.3.579.2. 593 1992 Unknown [id number] 2.16.840.1.414907.3.579.2. 593 1992 Unknown [id number] 2.16.840.1.834265.3.579.2. 593 1992 Unknown [id number] 2.16.840.1.738143.3.579.2. 593 1992 Unknown [id number] 2.16.840.1.186270.3.579.2. 1286 1992 Unknown [id number] 2.16.840.1.695839.3.579.2. 1286 1992 Unknown [id number] 2.16.840.1.268092.3.579.2. 1259 1992 Unknown [id number] 2.16.840.1.217127.3.579.2. 1259 1992 Unknown [id number] 2.16.840.1.529251.3.579.2. 1259 1992 Unknown [id number] 2.16.840.1.949599.3.579.2. 9 1992 Unknown [id number] 2.16.840.1.725547.3.579.2. 9 1992 Unknown [id number] 2.16.840.1.884174.3.579.2. 9 1992 Unknown [id number] 2.16.840.1.891998.3.579.2. 9 1992 Unknown [id number] 2.16.840.1.159068.3.579.2. 1258 1992 Unknown [id number] 2.16.840.1.725766.3.579.2. 9 1992 Unknown [id number] 2.16.840.1.901110.3.579.2. 1258 1992 Unknown [id number] 2.16.840.1.138266.3.579.2. 9 1992 Unknown [id number] 2.16.840.1.551829.3.579.2. 9 1992 Unknown [id number] 2.16.840.1.512022.3.579.2. 1259 1959 Unknown [id number] Unknown [id number] 2.16.840.1.343220.3.579.2. 531 Social History Date Type Detail Facility Start: 04-11-2022 End: 09-23-2022 Tobacco smoking status WIIS Smokes tobacco daily [facility] History of tobacco use Cigarette Smoker [facility] Start: 04-11-2022 End: 09-14-2023 Cigarettes smoked current (pack per day) - Reported 1 [facility] Start: 04-11-2022 End: 09-23-2022 Tobacco use and exposure Smokeless tobacco non-user [facility] Start: 04-11-2022 End: 05-12-2024 Alcohol intake Current drinker of alcohol (finding) [facility] Start: 04-11-2022 Alcohol Comment socially [facility] Start: 1992 [facility] Start: 05-04-2022 End: 09-14-2023 Tobacco use panel [facility] Adult Depression Screening Assessment 0 [facility] Start: 10-03-2022 Alcohol Comment caffeine intak e: 1-2 cups per day [facility] Start: 1990 Sex Assigned At Female [facility] Start: 10-04-2022 Gender identity Identifies as female gender (finding) [facility] Start: 08-06-2023 [facility] Start: 01-11-2024 Alcoholic beverage intake Ex-drinker (finding) [facility] Start: 08-26-2018 Sex Female (finding) [facility] Clinical Notes 03-07-2022 to 05-12-2024 Sylvia Rader, [facility] - 05/12/2024 1:40 PM Orly Clement, [facility] - 04/14/2024 1:20 PM Orly Clement, [facility] - 03/31/2024 1:30 PM Noah Rader, [facility] - 03/24/2024 1:00 PM EST Note Date & Type Note Facility 05-12-2024 History of Present illness Narrative Reason for Appointment: Patient ID: Amanda Cortez is a 34 y.o. female who presents for Follow-up and Pre-op Visit Patient presents today for Post Follow Up appointment. and Pre Op appointment. Patient is scheduled to undergo Bilateral Laparoscopic Salpingectomy on 06/06/[address] Jauregui at [facility]. MEDICATIONS Current Outpatient Medications Medication Instructions aspirin [...] nursing note reviewed. Exam conducted with a wood dowel machine operator present. Vitals: Estimated body mass index is [...] reviewed, and patient is to proceed to [facility] OR. Follow Up: Patient is to follow up between 1-2 weeks post operative to assess proper healing and recovery from procedure. Documented by Sylvia Rader LPN on behalf of: Acosta Jauregui DO documented in this encounter [facility] 04-14-2024 History of Present illness Narrative Reason [...] nursing note reviewed. Exam conducted with a wood dowel machine operator present. Vitals: Estimated body mass index is [...] Acosta Jauregui DO documented in this encounter [facility] 03-31-2024 History of Present illness Narrative Reason [...] Problems Diagnosis Date Noted Papillary thyroid carcinoma ([facility]) 09/23/2022 Thyroid disease ([facility]) 09/23/2022 Bilateral tinnitus 10/04/2022 Asymmetric [...] nursing note reviewed. Exam conducted with a wood dowel machine operator present. Vitals: Estimated body mass index is [...] Acosta Jauregui DO documented in this encounter [facility] 03-24-2024 History of Present illness Narrative Reason [...] nursing note reviewed. Exam conducted with a wood dowel machine operator present. Vitals: Estimated body mass index is [...] Acosta Jauregui DO documented in this encounter [facility] 03-10-2024 History of Present illness Narrative Reason [...] nursing note reviewed. Exam conducted with a wood dowel machine operator present. Vitals: Estimated body mass index is [...] 2 weeks. Patient will continue NST/BPP at [facility] as well. Documented by Sylvia Rader LPN on behalf of: Acosta Jauregui DO documented in this encounter [facility] 02-26-2024 History of Present illness Narrative [facility] Patient visited the Food Clinic and received food documented in this encounter [facility] 02-25-2024 History of Present illness Narrative [...] weeks gestation of [id number].31 3. 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 Ambulatory Problems Diagnosis Date Noted Acid reflux 09/23/2022 Amenorrhea 09/23/2022 Lesion of palate 09/23/2022 depression (CMS/HCC) 09/23/2022 Thyroid mass ([facility]/HCC) 09/23/2022 Vaginal delivery 09/23/2022 Past Medical History: Diagnosis Date Chronic maxillary sinusitis Diarrhea Ear problems Family planning Fatigue Fibroadenoma of breast, right Foreign body sensation in throat History of miscarriage LPRD (laryngopharyngeal reflux disease) Obesity Papilloma of palate PCOS (polycystic ovarian syndrome) Thyroid cancer (CMS/HCC) Thyroid nodule ([facility]) HISTORY PAST MEDICAL HISTORY SOCIAL [...] (CMS/HCC) Thyroid mass (CMS/HCC) 09/23/2022 Thyroid nodule ([facility]/HCC) Vaginal delivery 09/23/2022 Vaginal delivery Social History [...] nursing note reviewed. Exam conducted with a wood dowel machine operator present. Vitals: Estimated body mass index is [...] Acosta Jauregui DO documented in this encounter [facility] 01-24-2024 Telephone encounter Note I notified Amanda of Dr. Garcia's response. She will call after she delivers in March 2024 to scheduled follow up. Irais Turpin RN [facility] 01-24-2024 Miscellaneous Notes I notified Amanda of Dr. Garcia's response. She will call after she delivers in March 2024 to scheduled follow up. Irais Turpin RN Amanda called stating she is currently and is being followed very closely by PEDIATRICIAN/MEDICAL DOCTOR in [place] and her local PEDIATRICIAN/MEDICAL DOCTOR. She states her high risk is d/t [...] Irais Turpin RN documented in this encounter [facility] 01-23-2024 Telephone encounter Note Amanda called stating she is currently and is being followed very closely by PEDIATRICIAN/MEDICAL DOCTOR in [place] and her local PEDIATRICIAN/MEDICAL DOCTOR. She states her high risk is d/t [...] possible lab work? Thanks Irais Turpin RN [facility] 01-14-2024 History of Present illness Narrative [...] nursing note reviewed. Exam conducted with a wood dowel machine operator present. Vitals: Estimated body mass index is [...] Acosta Jauregui DO documented in this encounter [facility] 12-17-2023 History of Present illness Narrative Reason [...] nursing note reviewed. Exam conducted with a wood dowel machine operator present. Vitals: Estimated body mass index is [...] after delivery. [facility] Patient had ultrasound done today. Patient to return to clinic in 4 weeks for routine OB appointment. Patient will have Growth scans starting at 28 weeks and NST/BPP starting at 32 weeks gestation. Documented by Sylvia Rader LPN on behalf of: Acosta Jauregui DO documented in this encounter [facility] 11-13-[address] Christine office received ref and they will be calling patient to schedule appointment. Records faxed to Dr. Arteaga. Lawanda please send records to [facility] facesheet in your box Images from the original note were not included. Spoke to pt. She would like to see endocrinology in [place]. Pt's OB did adjust synthroid recently and has been monitoring labs. TREASURE- please sign pended order. PSS- please arrange visit when order is signed. KAREN Peters, Danna Mcdowell RN Previous Messages ----- Message ----- From: Arslan Garcia MD Sent: 11/02/2023 12:08 PM EDT To: Obi Dunlap; [facility] Rad Nurse Pool Given what sounds like patient is in first trimester and ongoing concerns of breast-feeding recommend she follow-up with endocrinology. documented in this encounter [facility] 11-13-[address] Christine office received ref and they will be calling patient to schedule appointment. [facility] 11-12-2023 Telephone encounter Note Records faxed to Dr. Arteaga. [facility] 11-12-2023 Telephone encounter Note Lawanda boswell send records to [employer] facesheet in your box [facility] 11-12-2023 Telephone encounter Note Images from the original note were not included. Spoke to pt. She would like to see endocrinology in [place]. Pt's OB did adjust synthroid recently and [...] of breast-feeding recommend she follow-up with endocrinology. [facility] 10-24-2023 Note HNO ID: [id number] Author: Arslan GARCIA MD Service: ? Author Type: Physician Type: Progress Notes Filed: 11/02/2023 12:08 Note Text: Unable to reach patient. [facility] 10-24-2023 History of Present illness Narrative Unable to reach patient. documented in this encounter [facility] 08-14-2023 Miscellaneous Notes TREASURE- please sign [...] Danna Pitts RN documented in this encounter [facility] 07-19-2023 Miscellaneous Notes Pt called to request labs sent to [facility] [place]. Faxed to central scheduling. Edna Sal RN documented in this encounter [facility] 06-12-2023 History of Present illness Narrative [...] Acosta Jauregui DO documented in this encounter [facility] 02-14-2023 Miscellaneous Notes Images from the original note were not included. Patient is scheduled for appointments Arslan Garcia MD [facility] [place]; Obi Genao 4 months with labs. Orders have been placed in [facility]. documented in this encounter [facility] 02-08-2023 Note HNO ID: [id number] Author: Arslan Garcia MD Service: ? Author [...] Garcia MD [facility] Nurse [place]; Obi [place] 8 weeks with labs, orders placed, thank you documented in this encounter [facility] 07-17-2022 Miscellaneous Notes Appointment has been changed to phone appt. Tj Funez Pt called in requesting to be switched to a phone visit tomorrow. Her kids are on spring break and a couple of them are sick. Labs have been done and resulted. PSS- please change to phone visit for tomorrow. Danna Pitts RN documented in this encounter [facility] 05-04-2022 History of Present illness Narrative Radiation Oncology - FollowupNote PATIENT NAME: Amanda Cortez PATIENT : 1990 DIAGNOSIS: Thyroid cancer, classic papillary thyroid carcinoma, status post total thyroidectomy and right neck exploration on 03/07/2022, stage I [id number]. HPI: Patient returns after further work-up and [...] and right neck exploration on 03/07/2022, stage [id number]. Patient does have significant thyroglobulin antibody however [...] for this encounter. documented in this encounter [facility] 04-25-2022 Miscellaneous Notes Patient had been rescheduled. Tj Funez Images from the original note were not included. Called patient to reschedule, LMOV. Tj Garcia MD [facility] Nurse [place]; Tj Funez Unable to reach please reschedule documented in this encounter [facility] 04-11-2022 Nurse Note Amanda Cortez presents in office today for: Lab Draw during Office Visit . Ordering Provider: Felipe Garcia M.D. Test (s) ordered: TG Method for obtaining blood: Phlebotomy was performed, accessing right antecubital vein. Needle removed intact. Dressing secured. Patient denies discomfort, dizziness, light-headedness or weakness and left the department without assist. Danna Pitts, RN documented in this encounter [facility] 03-07-2022 Note OPERATIVE NOTE OPERATION DATE: [...] recovery room in good condition. [facility] Evaluation note Diagnosis Thyroid cancer (HCC)- Primary Malignant neoplasm of thyroid gland [facility]roid [facility] ([facility])- Primary Malignant neoplasm of thyroid gland [facility] Diagnosis Missed menses Amenorrhea Absence of menstruation documented in this encounter [facility]* Diagnosis Thyroid cancer (HCC)- Primary Malignant neoplasm of thyroid gland [facility] Thyroid cancer (HCC)- Primary Malignant neoplasm of thyroid gland [facility] Thyroid cancer (HCC)- Primary Malignant neoplasm of thyroid gland [facility] Diagnosis Third trimester state, incidental [...] of Food insecurity [facility] Diagnosis Third trimester state, incidental 33 weeks gestation of Thyroid disease (CMS/HCC) Unspecified disorder of thyroid documented in this encounter [facility]* Diagnosis 35 weeks gestation of Third trimester state, incidental [facility] Diagnosis 36 weeks gestation of Third trimester state, incidental documented in this encounter [facility]* Diagnosis 25 weeks gestation of Diabetes mellitus screening Screening for diabetes mellitus First trimester state, incidental [facility]* Diagnosis Third trimester state, incidental 38 weeks gestation of documented in this [facility]* Diagnosis Second trimester state, incidental Diabetes mellitus screening Screening for diabetes mellitus documented in this encounter [facility]* Diagnosis 6 weeks follow-up Pre-operative exam Unspecified pre-operative examination documented in this encounter [facility] HealthcareInstructionsNot on [facility]ocumented [facility] Purpose Family History No [...] cancer (HCC) Procedures CONSULT TO ENDOCRINOLOGY OFFICE/OUTPATIENT [facility] 60 MINUTES Arslan Garcia MD [address] [place] [address] [place] [address] Referral ID Status Reason Start Date Expiration Date Visits Requested Visits Authorized [id number] Authorized PCP Requested Referral 11/12/2023 11/11/2024 1 1 Additional Source Comments Source Comments (unrecognize d section and content) In the event this informatio n is protected by the Federal Confidentiality of Alcohol and Drug Abuse Patient Records regulations: The Federal rules restrict any use of the information to criminally investigate or prosecute any alcohol or drug abuse patient[facility] the event this information is protected by the Federal Confidentiality of Alcohol and Drug Abuse Patient Records regulations: The Federal rules restrict any use of the information to criminally investigate or prosecute any alcohol or drug abuse patient.[facility] the event this information is protected by the Federal Confidentiality of Alcohol and Drug Abuse Patient Records regulations: The Federal rules restrict any use of the information to criminally investigate or prosecute any alcohol or drug abuse patient.[facility] the event this information is protected by the Federal Confidentiality of Alcohol and Drug Abuse Patient Records regulations: The Federal rules restrict any use of the information to criminally investigate or prosecute any alcohol or drug abuse patient.[facility] the event this information is protected by the Federal Confidentiality of Alcohol and Drug Abuse Patient Records regulations: The Federal rules restrict any use of the information to criminally investigate or prosecute any alcohol or drug abuse patient.[facility] the event this information is protected by the Federal Confidentiality of Alcohol and Drug Abuse Patient Records regulations: The Federal rules restrict any use of the information to criminally investigate or prosecute any alcohol or drug abuse patient.[facility] Hospital[facility] the event this information is protected by the Federal Confidentiality of Alcohol and Drug Abuse Patient Records regulations: The Federal rules restrict any use of the information to criminally investigate or prosecute any alcohol or drug abuse patient.[facility] Hospital[facility] the event this information is protected by the Federal Confidentiality of Alcohol and Drug Abuse Patient Records regulations: The Federal rules restrict any use of the information to criminally investigate or prosecute any alcohol or drug abuse patient.[facility] Hospital[facility] the event this information is protected by the Federal Confidentiality of Alcohol and Drug Abuse Patient Records regulations: The Federal rules restrict any use of the information to criminally investigate or prosecute any alcohol or drug abuse patient.[facility] the event this information is protected by the Federal Confidentiality of Alcohol and Drug Abuse Patient Records regulations: The Federal rules restrict any use of the information to criminally investigate or prosecute any alcohol or drug abuse patient.[facility] the event this information is protected by the Federal Confidentiality of Alcohol and Drug Abuse Patient Records regulations: The Federal rules restrict any use of the information to criminally investigate or prosecute any alcohol or drug abuse patient.[facility] Hospital[facility] the event this information is protected by the Federal Confidentiality of Alcohol and Drug Abuse Patient Records regulations: The Federal rules restrict any use of the information to criminally investigate or prosecute any alcohol or drug abuse patient.[facility] Reason for Visit (unrecogniz ed section [...] Care Teams (unrecognized sec tion and content) 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 Start Date End Date Sara Medellin MD [address] [place] [address] PCP - General Family Medicine 04/11/22 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 Start Date End Date Sara Medellin MD [address] [place] [address] PCP - General Family Medicine 04/11/22 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 Start Date End Date Sara Medellin MD [address] [place] [address] PCP - General Family Medicine 04/11/22 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 Start Date End Date Sara Medellin MD PCP - General Family Medicine 04/11/22 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 Start Date End Date Sara Medellin MD PCP - General Family Medicine 04/11/22 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 Start Date End Date Sara Medellin MD [address] [place] [address] PCP - General Family Medicine 10/03/22 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 Start Date End Date Sara Medellin MD PCP - General Family Medicine 04/11/22 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 Start Date End Date Sara Medellin MD PCP - General Family Medicine 04/11/22 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 Start Date End Date Sara Medellin MD PCP - General Family Medicine 04/11/22 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 Start Date End Date Sara Medellin MD [address] [facility] [place] [address] PCP - General Family Medicine 10/03/22 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 Start Date End Date Saar Medellin MD [address] [facility] [place] [address] PCP - General Family Medicine 10/03/22 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 Start Date End Date Sara Medellin MD [address] [facility] [place] [address] PCP - General Family Medicine 10/03/22 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 Start Date End Date Sara Medellin MD [address] [place] [facility] [place] [address] PCP - General 01/10/24 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 Start Date End Date Sara Medellin MD [address] [facility] [place] [address] PCP - General Family Medicine 10/03/22 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 Start Date End Date Sara Medellin MD [address] [facility], [facility] PCP - General Family Medicine 10/03/22 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 Start Date End Date Sara Medellin MD [address] [facility], [facility] PCP - General Family Medicine 10/03/22 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 Start Date End Date Sara Medellin MD [address] [facility], [facility] PCP - General Family Medicine 10/03/22 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 Start Date End Date Sara Medellin MD [address] [facility], [facility] PCP - General Family Medicine 10/03/22 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 Start Date End Date Sara Medellin MD [address] [facility], [facility] PCP - General Family Medicine 10/03/22 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 Start Date End Date Sara Medellin MD [address] [facility], [facility] PCP - General Family Medicine 10/03/22 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 Start Date End Date Sara Medellin MD [address] [facility], [facility] PCP - General Family Medicine 10/03/22 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 Start Date End Date Sara Medellin MD [address] [facility] [place] [address] PCP - General Family Medicine 10/03/22 INFORMATION SOURCE (unrecogn ized section and content) DATE CREATED AUTHOR 09/02/2022 [facility] DATE CREATED AUTHOR AUTHOR'S ORGANIZ ATION 01/11/2024 [facility] DATE CREATED AUTHOR AUTHOR'S ORGANIZ ATION 01/13/2024 [facility] DATE CREATED AUTHOR AUTHOR'S ORGANIZ ATION 04/30/2024 [facility] DATE CREATED AUTHOR AUTHOR'S ORGANIZ ATION 05/15/2024 [facility] EPIC FOR RECORDS PERTAINING TO [...] BE BASED ON THE PRIMARY CLINICAL RECORDS. [employer] provides no warranty or guarantee of the accuracy or completeness of information in this document.
== END 2024-06-02 13:58 | disposition home or self-care (01) ==
LOC: FBCO 09:36
PROVIDERS: PCP Family Medicine; Visit Provider Obstetrics & Gynecology
DX: Z39.1 Encounter for care and examination of lactating mother (principal)

== ENCOUNTER 2024-06-06 09:05 | Day surgery (SDC) | payer OTHER, SELFPAY ==
[2024-05-23 11:27] VITALS: BP 104/70; PULSE 60; TEMP 36.2; O2SAT 100; BMI 38.0
[2024-06-06] VITALS (10 sets, daily range): BP systolic 99–128; BP diastolic 62–86; PULSE 72–89; TEMP 36.5–36.6; O2SAT 90–98; BMI 37.3
[2024-06-06 09:16] LABS: Basophils Absolute Auto 0.1 10^3/uL (0.0-0.1); Basophils Percent Auto 0.4 % (0.2-2.0); Eosinophils Absolute Auto 0.4 10^3/uL (0.0-0.7); Hematocrit 40.7 % (36.0-48.0); Hemoglobin 13.1 g/dL (12.0-16.0); Immature Granulocytes Abs Auto 0.03 10^3/uL (0.00-0.03); Immature Granulocytes Pct Auto 0.3 % (0.0-0.5); Lymphocytes Absolute Auto 2.5 10^3/uL (1.2-3.8); Lymphocytes Percent Auto 21.9 % (20.5-60.0); Mean Corpuscular HGB Conc 32.2 g/dL (29.9-35.2); Mean Corpuscular Hemoglobin 27.6 pg (26.7-34.0); Mean Corpuscular Volume 85.9 fL (81.0-99.0); Mean Platelet Volume 9.3 fL (9.5-13.5); Monocytes Absolute Auto 0.7 10^3/uL (0.3-0.8); Monocytes Percent Auto 5.9 % (1.7-12.0); Neutrophils Percent Auto 68.5 % (43.0-75.0); Platelet Count 305 10^3/uL (150-450); Red Blood Count 4.74 10^6/uL (4.20-5.40); Red Cell Distribution Width 13.7 % (11.0-15.0); White Blood Count 11.6 10^3/uL (4.0-11.0)
[2024-06-06] MEDS: LACTATED RINGER'S SOLUTION 1,000 ML 50 ML IV ×2 (09:43→13:13)
[2024-06-06 10:02] LABS: HCG Quantitative <1 mIU/mL
--- NOTE | 2024-06-06 12:36 | PM.ONB ---
Brief Operative Note Date of procedure: 06/06/24 Pre-op diagnosis general: desires permanent sterilization, multiparity Post-op diagnosis: same as pre-op Procedure: NAME OF PROCEDURE: robotic assisted bilateral laparoscopic salpingectomy PROCEDURE: The patient was taken back to the Operating Room where she was given general anesthesia without difficulty. She was then prepped and draped in the normal sterile fashion after being placed in a dorsal lithotomy position. A wet sponge stick was placed into the patient's vagina. Attention was then turned to the patient's abdomen, where a scalpel was used to make a small infraumbilical incision. The S retractors were then used to dissect the underlying layers until the fascia could be seen. The fascia was then grasped with Pito clamps and tented up. A knife was then used to make a small incision to the fascia. The muscle was identified, at that time two sutures of #0 Vicryl on a GI needle was then used and placed through the fascia. the peritoneum was then identified and entered bluntly. The 10-4 Magi was then placed into the patient's abdomen. This was confirmed with direct visualization of the bowel, using the laparoscope. The patient's abdomen was then insufflated using approximately 4 liters of CO2 gas. Survey of the patient's abdomen demonstrated ovaries were normal in appearance as well as both tubes and uterus. A second and third rt and lt lateral robotic ports which were 8 mm in size, was then placed after the skin incision was made under direct visualization . the robotic arms were engaged. The patient's tube on the patient's right side was identified and tented up using a grasper, the ligasure apparatus was then used to come across the mesosalpingx from the fimbriated end to the insertion site at the uterus, the tube was then amputated and removed in its entirety. This was done on the contralateral side. The tubes were the removed from the patients abdomen. Excellent hemostasis was noted. The lateral ports were then moved under direct visualization with excellent hemostasis. All instruments were removed from the patient's abdomen. The fascia was closed using the #0 Vicryl on GI needle. The skin was closed using 4-0 Vicryl subcuticularly. All instruments were removed from the patient's vagina as well. The patient was taken out of the dorsal lithotomy position and placed in the supine position and taken to recovery in stable condition. Sponge, lap and needle counts were correct x2. Anesthesia: EMIR Surgeon: Acosta Jauregui Construction Helper: Alexia Mancuso Estimated blood loss (mL): 5 Pathology: other (tubes) Condition: stable Disposition: PACU
[2024-06-06] MEDS: ACETAMINOPHEN 500 MG TABLET 1000 MG PO (14:46)
--- NOTE | 2024-06-06 15:00 | PC.NURSE ---
1455: pt ambulates to bathroom with minimal assistance. pt voids without difficulty.
== END 2024-06-06 15:10 | disposition home or self-care (01) ==
PROVIDERS: PCP Family Medicine; Visit Provider Obstetrics & Gynecology
PROC: (CPT 840; principal; 2024-06-06 10:10)
DX: Z30.2 Encounter for sterilization (principal); F17.210 Nicotine dependence, cigarettes, uncomplicated; Z90.49 Acquired absence of other specified parts of digestive tract; K21.9 Gastro-esophageal reflux disease without esophagitis; E03.9 Hypothyroidism, unspecified
CPT/HCPCS: 58661; 36415; 84702; 85025; 88302; J1100; J1805; J1885; J2250; J2371; J2405; J2704; J3010

== ENCOUNTER 2024-06-13 14:16 | Outpatient (OUT) | payer OTHER, SELFPAY ==
--- NOTE | 2024-06-13 14:21 | US_ITS ---
The [address] [address] Patient Name: LITO RAMIREZ MRN: [id number] date: 1990 Sex: F Assigned Patient Location: RAD Current Patient Location: [facility] Accession/Order Number: [id number] Exam Date: 06/13/2024 14:30 Report Date: 06/13/2024 16:17 At the request of: SARA VENEGAS Procedure: US abdomen limited EXAM: US abdomen limited HISTORY: Abdominal Wall Swelling , superior to the umbilicus COMPARISON: None. TECHNIQUE: Limited upper mid abdomen ultrasound including grayscale and Doppler imaging. FINDINGS and impression: There is a 7.1 x 2.8 cm complex fluid collection in the subcutaneous ventral abdomen, area of concern, may represent abscess or seroma or resolving hematoma. Correlation with patient's clinical symptom and history is recommended. Electronically authenticated by: EARLENE BARAJAS Date: 06/13/2024 16:17
== END 2024-06-13 14:17 | disposition home or self-care (01) ==
LOC: RAD 14:18
PROVIDERS: PCP Family Medicine; Visit Provider Family Medicine
DX: R19.00 Intra-abdominal and pelvic swelling, mass and lump, unspecified site (principal)
CPT/HCPCS: 76705

== ENCOUNTER 2024-06-16 17:29 | Emergency (ER) | payer OTHER, SELFPAY ==
[2024-06-16 17:34] VITALS: BP 125/80; PULSE 88; TEMP 36.6; O2SAT 98; BMI 26.9
--- OUTSIDE RECORDS SUMMARY | 2024-06-16 17:38 | XMS_ITS | CCD ---
Author Organization [facility] Care Team Providers Care Manager Operating Name Role Phone Sara Venegas MD Primary Care Provider [phone] RAIZA, DR GUERRA Consulting Unavailable HOY ., [...] ., DR RUIZ Primary Care Unavailable Sara Venegas MD Primary Care Provider [phone] Sara Venegas MD Primary Care Provider [phone] Sara Venegas MD Primary Care Provider [phone] SARA VENEGAS Primary Care Unavailable Arslan RAI Attending Unavailable SARA VENEGAS Primary Care Unavailable Arslan RAI Attending Unavailable SARA VENEGAS Primary Care Unavailable YFN MICHELLE Attending Unavailable SHANIA, ACOSTA R Referring Unavailable SARA VENEGAS Primary Care Unavailable SHANIA, ACOSTA R Referring Unavailable SARA VENEGAS Primary Care Unavailable Sara Venegas MD Primary Care Provider [phone] SHANIA, ACOSTA Attending Unavailable SHANIA, ACOSTA Attending Unavailable SHANIA, ACOSTA Attending Unavailable SHANIA, ACOSTA Attending Unavailable SHANIA, ACOSTA Attending Unavailable SHANIA, ACOSTA Attending Unavailable KIM BULL Attending Unavailable SHANIA, ACOSTA Attending Unavailable SHANIA, ACOSTA Attending Unavailable SHANIA, ACOSTA Attending Unavailable SHANIA, ACOSTA Attending Unavailable SHANIA, ACOSTA Attending Unavailable Sara Venegas MD Primary Care Provider [phone] Misha Dickerson DO Attending Provider [phone] Acosta Jauregui DO Attending Provider [phone] Acosta Jauregui Attending Unavailable Acosta Jauregui Admitting Unavailable Sara Venegas Primary Care Unavailable Misha Dickerson Attending Unavailable Misha Dickerson Admitting Unavailable Allergies Allergy Classification Reported Allergen(s) Allergy Type Date of Onset Reaction(s) Facility (20 sources) Cefaclor; Translations: [CEFACLOR] Drug Allergy 04-11-20 22 Hives, Shortness of Breath, Anaphylaxis [facility] (13 sources) Penicillins; Translations: [PENICILLINS] Drug Allergy 04-11-20 22 Hives, Shortness of Breath [facility] (2 sources) Cefaclor Drug Allergy 05-10-[address] [facility] (2 sources) Penicillins Drug allergy (disorder) 05-10-[address] [facility] (20 sources) Penicillin G sodium; Translations: [PENICILLIN G SODIUM] Allergy to substance 09-24-19 Anaphylaxis [facility] (20 sources) Cephalosporins (Antibiotic); Translations: [CEPHALOSPORINS] Propensity [...] Daily 30 tablet 11 10/16/2023 10/15/2024 Active aspirin 81 mg ch ewable tablet Chew 1 tablet (81 mg total) and swallow in the morning. Active benzocaine 0.075 mg/mg oral gel (10 sources) Standardized Chemical Allergen benzocaine (Baby Orajel) [...] 08-07-2022 Episodic Other aftercare (1 source) Other skilled nursing (current) drug therapy; Translations: [OTH SAMPLE GRINDER CURRENT DRUG THERAPY] Onset: 08-24-2022 Episodic Other [...] CBC WITH AUTO DIFFon BASOPHILS ABSOLUTE AUTO 0.[address] [facility] Basophils/100 WBC (Bld) 0.4 % 0.2 - 2.0 % [facility] Eosinophils/100 WBC (Bld) 3 % 0.9 - 7.0 % [facility] Erythrocyte distribution width (RBC) [Ratio] 13.7 % 11.0 - 15.0 % [facility] Hematocrit (Bld) [Volume fraction] 40.7 % 36.0 - 48.0 % [facility] Hemoglobin (Bld) [Mass/Vol] 13.1 g/dL 12.0 - 16.0 g/dL [facility] IMMATURE GRANULOCYTES ABS AUTO 0.03 [facility] Immature granulocytes/100 WBC (Bld) 0.3 % 0.0 - 0.5 % [facility] Interpretation and review of laboratory results Abnormal [facility] LYMPHOCYTES ABSOLUTE AUTO 2.[address] [facility] Lymphocytes/100 WBC (Bld) 21.9 % 20.5 - 60.0 % [facility] MCH (RBC) [Entitic mass] 27.6 pg 26.7 - 34.0 pg [facility] MCHC (RBC) [Mass/Vol] 32.2 g/dL 29.9 - 35.2 g/dL [facility] MCV (RBC) [Entitic vol] 85.9 fL 81.0 - 99.0 fL [facility] MONOCYTES ABSOLUTE AUTO 0.7 [facility] Monocytes/100 WBC (Bld) 5.9 % 1.7 - 12.0 % [facility] NEUTROPHILS ABSOLUTE AUTO 8 High [facility] Neutrophils/100 WBC (Bld) 68.5 % 43.0 - 75.0 % [facility] Platelet mean volume (Bld) [Entitic vol] 9.3 fL Low 9.5 - 13.5 fL [facility] TBH EO # 0.4 [facility] TBH PLT 305 [facility] TB RBC 4.74 [facility] WBC 11.6 High [facility] Robbie 06-06-2024 L Specimen: [id number] Received: 06/09/24 Status: IDALMIS Lizama Num: [id number] Spec Type: Surgical Subm Dr: Acosta Jauregui Tissues: A Fallopian Tube - Sterilization (BILATERAL FALLOPIAN TUBES) Procedures: Louise MONTOYA/Maria Esther L2 Age/ Patient Sex Location Account Attending Physician Amanda Ramirez 34/F LABELL [id number] Acosta Jauregui SPEC NUM: [id number] RECD: 06/09/24 STATUS: IDALMIS DONIS NUM: [id number] MORE: 06/06/[address]: Acosta Jauregui ENTERED: 06/09/24 [facility] DR: Faina,Lab SPEC TYPE: Surgical DEPT: CONRAD BEYER ORDERED: HE/2, Gross/Micro L2 ORDERED: HE/2, Gross/Micro L2 Pathological Diagnosis Bilateral fallopian tubes, bilateral tubal ligation: - Completely transected bilateral fallopian tubes with no significant histopathology. Clinical Information Request sterilization Gross Description Received in formalin labeled with the patient's name, date of and bilateral fallopian tubes are two undesignated, fimbriated fallopian tubes arbitrarily assigned as tube #1 (7.3 cm in length by 0.6 cm in diameter) and tube #2 (9.2 cm in length by 0.6 cm in diameter). Each tube is covered by unremarkable angel-purple serosa. Sectioning into each tube reveals an intact luminal center lined by unremarkable angel mucosa. [employer] sections of each tube are submitted in A1 (tube #1) and A2 (tube #2). TW Microscopic Description Microscopic examination is performed. Specimen: [id number] Received: 06/09/24 Status: IDALMIS Lizama Num: [id number] Spec Type: Surgical Subm Dr: Acosta Jauregui Tissues: A Fallopian Tube - Sterilization (BILATERAL FALLOPIAN TUBES) Procedures: Camilla MONTOYA L2 Patient: Amanda Ramirez [id number] (Continued) Specimen: [id number] Received: 06/09/24 (Continued) Signed (signature on file) Claudio Ruelas MD 06/10/24 110 Specimen: [id number] Received: 06/09/24 Status: IDALMIS Lizama Num: [id number] Spec Type: Surgical Subm Dr: Acosta Jauregui Tissues: A Fallopian Tube - Sterilization (BILATERAL FALLOPIAN TUBES) Procedures: Louise MONTOYA/Maria Esther Matos Patient: DiegoAmanda [id number] (Continued) Specimen: [id number] Received: 06/09/24 (Continued) CPT Codes 14257 Specimen: BS Received: 06/09/24 Status: IDALMIS Lizama Num: [id number] Spec Type: Surgical Subm Dr: Acosta Jauregui Tissues: A Fallopian Tube - Sterilization (BILATERAL FALLOPIAN TUBES) Procedures: HE/2, Gross/Maria Esther L2 Patient: Amanda Ramirez [id number] (Continued) Signed (signature on file) Claudio Ruelas MD 06/10/24 1107 Normal [facility] Urine Cultureon 04-26-2024 Bacteria identified Cx Nom (U) 50,000 colonies/ml mixed bacterial skin contaminants 2 Days PERFORMED BY: [place] [address] PATHOLOGIST [employer]ANDER SAMANTHA ZUNIGA M.D. Normal [facility] Comment on above: Performed By: #### C UU #### [address] Urine cultureOrdered By: Shade Dickerson on 04-26-2024 Bacteria identified Cx Nom (U) Urine culture [facility] ALL CBC WITH AUTO DIFFon BASOPHILS ABSOLUTE AUTO 0 [facility] Basophils/100 WBC (Bld) 0.3 % 0.2 - 2.0 % [facility] Eosinophils/100 WBC (Bld) 1.7 % 0.9 - 7.0 % [facility] Erythrocyte distribution width (RBC) [Ratio] 13.3 % 11.0 - 15.0 % [facility] Hematocrit (Bld) [Volume fraction] 32.7 % Low 36.0 - 48.0 % [facility] Hemoglobin (Bld) [Mass/Vol] 10.5 g/dL Low [...] mass] 29.2 pg 26.7 - 34.0 pg [facility] MCHC (RBC) [Mass/Vol] 32.1 g/dL 29.9 - 35.2 g/dL [facility] MCV (RBC) [Entitic vol] 90.8 fL 81.0 - 99.0 fL [facility] MONOCYTES ABSOLUTE AUTO 0.7 [facility] Monocytes/100 WBC (Bld) 4.8 % 1.7 - 12.0 % [facility] NEUTROPHILS ABSOLUTE AUTO 11 High [facility] Neutrophils/100 WBC (Bld) 72.7 % 43.0 - 75.0 % [facility] Platelet mean volume (Bld) [Entitic vol] 10.1 fL 9.5 - 13.5 fL [facility] TBH EO # 0.3 [facility] TB PLT 262 [facility] RBC 3.6 Low [facility] WBC 15.1 High [facility]on 04-18-2024 AMPHETAMINE SCREEN URINE Negative NEGATIVE [facility] BARBITURATES SCREEN URINE Negative NEGATIVE [facility] BENZODIAZEPINES SCREEN URINE Negative NEGATIVE [facility] BUPRENORPHINE SCREEN URINE Negative NEGATIVE [facility] Comment on above: DRUG CLASS TEST SYST [...] 300 ng/mL CANNABINOID SCREEN URINE Negative NEGATIVE [facility] COCAINE SCREEN URINE Negative NEGATIVE [facility] METHADONE SCREEN URINE Negative NEGATIVE [facility] METHAMPHETAMINES SCREEN URINE Negative NEGATIVE [facility] OPIATE SCREEN URINE Negative NEGATIVE [facility] OXYCODONE SCREEN URINE Negative NEGATIVE [facility] PHENCYCLIDINE SCREEN URINE Negative NEGATIVE [facility] TRICYCLIC ANTIDEPRESSANT URINE Negative NEGATIVE [facility] Urinalysis macro (dipstick) panel (U)on 03-31-2024 Bilirubin, UA Negative Negative - 4(70) +++ mg/dL [facility] Blood, UA Negative Negative - 50 Maury/mcL [facility] Clarity, UA Clear [facility] Color, UA Yellow [facility] Glucose, UA Negative Negative - 1999(110) ++++ mg/dL [facility] Interpretation and review of laboratory results Abnormal [facility] Ketones, UA Negative Negative - 160(16) ++++ mg/dL [facility] Leukocytes, UA Positive Negative - 500+++ Fan/mcL [facility] Nitrite, UA Negative Negative - Positive [facility] pH, UA 7 5 - 9 [facility] Protein, UA Trace Negative - 1999(20) ++++ mg/dL [facility] Spec Grav, UA 1.025 1 - 1.03 [facility] Urobilinogen, UA 1.0 0.2 - 12 mg/dL [facility] Urinalysis macro (dipstick) panel (U)on 03-24-2024 Bilirubin, UA Positive Negative - 4(70) +++ mg/dL [facility] Comment on above: moderate Blood, UA Negative Negative - 50 Maury/mcL [facility] Clarity, UA Clear [facility] Color, UA Amanda [facility] Glucose, UA Positive Negative - 1999(110) ++++ mg/dL [facility] Comment on above: 100 Interpretation and review of laboratory results Abnormal [facility] Ketones, UA Positive Negative - 160(16) ++++ mg/dL [facility] Comment on above: 15 Leukocytes, UA Negative Negative - 500+++ Fan/mcL [facility] Nitrite, UA Negative Negative - Positive [facility] pH, UA 6.5 5 - 9 [facility] Protein, UA Positive Negative - 1999(20) ++++ mg/dL [facility] Comment on above: 100 Spec Grav, UA 1.025 1 - 1.03 [facility] Urobilinogen, UA 2.0 0.2 - 12 mg/dL [facility] Referral to Food C linicon 02-26-2024 [facility] Urinalysis macro (dipstick) panel (U)on 02-11-2024 Bilirubin, UA Negative Negative - 4(70) +++ mg/dL [facility] Blood, UA Negative Negative - 50 Maury/mcL [facility] Clarity, UA Clear [facility] Color, UA Yellow [facility] Glucose, UA Negative Negative - 1999(110) ++++ mg/dL [facility] Interpretation and review of laboratory results Abnormal [facility] Ketones, UA Negative Negative - 160(16) ++++ mg/dL [facility] Leukocytes, UA Positive Negative - 500+++ Fan/mcL [facility] Nitrite, UA Negative Negative - Positive [facility] pH, UA 7 5 - 9 [facility] Protein, UA Positive Negative - 1999(20) ++++ mg/dL [facility] Spec Grav, UA 1.02 1 - 1.[address] [facility] Urobilinogen, UA 1.0 0.2 - 12 mg/dL [facility] ALL THYROID STIM HORMONEon 1 Interpretation and review of laboratory results Abnormal [facility] TSH Qn 28.537 m[IU]/L High [facility] Urinalysis macro (dipstick) panel (U)on 01-14-2024 Bilirubin, UA Positive Negative - 4(70) +++ mg/dL [facility] Blood, UA Negative Negative - 50 Maury/mcL [facility] Clarity, UA Clear [facility] Color, UA Yellow [facility] Glucose, UA Negative Negative - 1999(110) ++++ mg/dL [facility] Interpretation and review of laboratory results Abnormal [facility] Ketones, UA Positive Negative - 160(16) ++++ mg/dL [facility] Comment on above: small Leukocytes, UA Positive Negative - 500+++ Fan/mcL [facility] Comment on above: small Nitrite, UA Negative Negative - Positive [facility] pH, UA 6.5 5 - 9 [facility] Protein, UA Negative Negative - 1999(20) ++++ mg/dL [facility] Spec Grav, UA 1.020 1 - 1.03 [facility] Urobilinogen, UA 1.0 0.2 - 12 mg/dL [facility] ALL CBC WITH AUTO DIFFon BASOPHILS ABSOLUTE AUTO 0.0 [facility] Basophils/100 WBC (Bld) 0.3 % 0.2 - 2.0 % [facility] Eosinophils/100 WBC (Bld) 2.4 % 0.9 - 7.0 % [facility] Erythrocyte distribution width (RBC) [Ratio] 13.6 % 11.0 - 15.0 % [facility] Hematocrit (Bld) [Volume fraction] 35.0 % Low 36.0 - 48.0 % [facility] Hemoglobin (Bld) [Mass/Vol] 11.8 g/dL Low 12.0 - 16.0 g/dL [facility] IMMATURE GRANULOCYTES ABS AUTO 0.02 [facility] Immature granulocytes/100 WBC (Bld) 0.2 % 0.0 - 0.5 % [facility] Interpretation and review of laboratory results Abnormal [facility] LYMPHOCYTES ABSOLUTE AUTO 2.1 [facility] Lymphocytes/100 WBC (Bld) 23.6 % 20.5 - 60.0 % [facility] MCH (RBC) [Entitic mass] 30.1 pg 26.7 - 34.0 pg [facility] MCHC (RBC) [Mass/Vol] 33.7 g/dL 29.9 - 35.2 g/dL [facility] MCV (RBC) [Entitic vol] 89.3 fL 81.0 - 99.0 fL [facility] MONOCYTES ABSOLUTE AUTO 0.[address] [facility] Monocytes/100 WBC (Bld) 3.9 % 1.7 - 12.0 % [facility] NEUTROPHILS ABSOLUTE AUTO 6.2 [facility] Neutrophils/100 WBC (Bld) 69.6 % 43.0 - 75.0 % [facility] Platelet mean volume (Bld) [Entitic vol] 9.8 fL 9.5 - 13.5 fL [facility] TBH EO # 0.2 [facility] PLT 224 [facility] RBC 3.92 Low [facility] WBC 8.9 [facility] Urinalysis macro (dipstick) panel (U)Ordered By: Kerline Clement on 12-19-2023 Bilirubin, UA Negative Negative - 4(70) +++ mg/dL [facility] Blood, UA Negative Negative - 50 Maury/mcL [facility] Clarity, UA Clear [facility] Color, UA Yellow [facility] Glucose, UA Negative Negative - 2000(110) ++++ mg/dL [facility] Interpretation and review of laboratory results Abnormal [facility] Ketones, UA Negative Negative - 160(16) ++++ mg/dL [facility] Leukocytes, UA Moderate Negative - 500+++ Fan/mcL [facility] Nitrite, UA Negative Negative - Positive [facility] Protein, UA Negative Negative - 1999(20) ++++ mg/dL [facility] Spec Grav, UA 0.010 1 - 1.[address] [facility] Urobilinogen, UA 1.0 0.2 - 12 mg/dL [facility] Cytology Cervical or vaginal smear or scraping studyon 11-13-[address] [facility] CNPNon 11-12-2023 CNPN Telephone (RADTSA) AMANDA RAMIREZ ([id number]) 1990 F Date Time Provider Department 11/12/23 Arslan RAI During your visit today, we recorded the following information about you: Danna Seo RN 11/12/2023 11:25 AM Signed Spoke to pt. She would like to see endocrinology in [place]. Pt's OB did adjust synthroid recently and has been monitoring labs. TREASURE- please sign pended order. PSS- please arrange visit when order is signed. KAREN Peters, Danna Mcdowell RN Previous Messages ----- Message ----- From: Arslan Rai MD Sent: 11/02/2023 12:08 PM EDT To: [...] [C73] Order(s):CONSULT TO ENDOCRINOLOGY [9007] Order #: [id number]: 1 FUTURE Prescriptions as of 01/09/2024 - [...] Date: 11/12/2023 (None) Encounter Status:Closed by DANNA SEO on 11/13/23 [facility] 07-19-2023 CNPN Telephone (KEVIN) AMANDA RAMIREZ ([id number]) 1990 F Date Time Provider Department 07/19/23 EDNA SAL During your visit today, we recorded the following information about you: Edna Sal RN 07/19/2023 10:42 AM Signed Pt called to request labs sent to [facility]. Faxed to central scheduling. Edna Sal [...] Encounter Status:Closed [facility] [facility] Telephone (RADTSA) AMANDA RAMIREZ ([id number]) 1990 F Date Time Provider Department 06/25/23 Arslan RAI During your visit today, we recorded the following information about you: Danna Seo RN 06/25/2023 9:20 AM Signed Call placed [...] able to reach her to schedule. Danna Seo RN Obi Genao 08/22/2023 9:25 AM Signed Called patient to schedule appts. Left message for her. Obi Genao 08/23/2023 8:29 AM Signed Patients lab orders were sent to [facility] and I scheduled her a [...] (HCC) [C73] Order(s):T4/THYROXIN E [SQT4] Order #: [id number] FUTURE THYROID STIMULATING HORMONE [SQTSH] Order #: [id number] FUTURE THYROGLOBULIN, SERUM WITH REFLEX TO IA OR LC-MS/MS [SQTHYRORF] Order #: [id number] FUTURE Prescriptions as of 08/23/2023 - levothyroxine [...] Date: 06/25/2023 (None) Encounter Status:Closed by Arslan RAI on 08/15/23 [facility] 02-14-2023 CNPN Telephone (NCCAP) AMANDA RAMIREZ ([id number]) 1990 F Date Time Provider Department 02/14/23 [facility] During your visit today, we recorded the following information about you: Obi Genao 02/14/2023 9:54 AM Signed Patient is scheduled for appointments Arslan Rai MD [facility] Nurse [place]; Obi Genao 4 months with labs. Orders have been placed in [facility]. Allergies As of Date: 02/14/2023 Noted Allergy Reaction CECLOR (CEFACLOR) 04/11/2022 4 - Hives 12 - Shortness of Breath PENICILLINS 04/11/2022 4 - Hives 12 - Shortness of Breath Date Reviewed: 05/04/2022 Reviewed by: Jerman Daisy - Fully Assessed Reason for Visit: Appointment Confirmation [7071] Prescriptions as of 02/14/2023 - levothyroxine (SYNTHROID) [...] Status:Closed by OBI GENAO on 02/14/23 Normal [facility] CBC W Auto Differential pane l (Bld)on 02-01-2023 Basophils (Bld) [#/Vol] 0.04 10*3/uL Normal <0.11 [facility] Comment on above: Order Comment: Speci men Type: BLOOD SPECIMEN Ordering Facility: [facility] Address: [address] [place] [address] Performed By: #### 5 7021-8 #### [facility] CLIA [id number] [address] [place] [address] Basophils/100 WBC (Bld) 0.5 % Normal [facility] Comment on above: Order Comment: Speci men Type: BLOOD SPECIMEN Ordering Facility: [facility] Address: [address] [place] [address] Performed By: #### 5 7021-8 #### [facility] CLIA [id number] [address] [place] [address] Differential cell count method Nom (Bld) Auto Normal [facility] Comment on above: Order Comment: Speci men Type: BLOOD SPECIMEN Ordering Facility: [facility] Address: [address] [place] [address] Performed By: #### 5 7021-8 #### [facility] CLIA [id number] [address] [place] [address] Eosinophils (Bld) [#/Vol] 0.19 10*3/uL Normal <0.46 [facility] Comment on above: Order Comment: Speci men Type: BLOOD SPECIMEN Ordering Facility: [facility] Address: [address] [place] [address] Performed By: #### 5 7021-8 #### [facility] CLIA [id number] [address] [place] [address] Eosinophils/100 WBC (Bld) 2.5 % Normal [facility] Comment on above: Order Comment: Speci men Type: BLOOD SPECIMEN Ordering Facility: [facility] Address: [address] [place] [address] Performed By: #### 5 7021-8 #### [facility] CLIA [id number] [address] [place] [address] Erythrocyte distribution width (RBC) [Ratio] 13.3 % Normal 11.5-15.0 [facility] Comment on above: Order Comment: Speci men Type: BLOOD SPECIMEN Ordering Facility: [facility] Address: [address] [place] [address] Performed By: #### 5 7021-8 #### [facility] CLIA [id number] [address] [place] [address] Hematocrit (Bld) [Volume fraction] 47.7 % High 36.0-46.0 [facility] Comment on above: Order Comment: Speci men Type: BLOOD SPECIMEN Ordering Facility: [facility] Address: [address] [place] [address] Performed By: #### 5 7021-8 #### [facility] CLIA [id number] [address] [place] [address] Hemoglobin (Bld) [Mass/Vol] 15.6 g/dL High 11.5-15.5 [facility] Comment on above: Order Comment: Speci men Type: BLOOD SPECIMEN Ordering Facility: [facility] Address: [address] [place] [address] Performed By: #### 5 7021-8 #### [facility] CLIA [id number] [address] [place] [address] 73652 Immature granulocytes (Bld) [#/Vol] 0.03 10*3/uL Normal <0.10 [facility] Comment on above: Order Comment: Speci men Type: BLOOD SPECIMEN Ordering Facility: [facility] Address: [address] [place] [address] Performed By: #### 5 7021-8 #### [facility] CLIA [id number] [address] [place] [address] 09492 Immature granulocytes/100 WBC (Bld) 0.4 % Normal [facility] Comment on above: Order Comment: Speci men Type: BLOOD SPECIMEN Ordering Facility: [facility] Address: [address] [place] [address] Performed By: #### 5 7021-8 #### [facility] CLIA [id number] [address] [place] [address] 99226 Lymphocytes (Bld) [#/Vol] 2.30 10*3/uL Normal 1.00-4.00 [facility] Comment on above: Order Comment: Speci men Type: BLOOD SPECIMEN Ordering Facility: [facility] Address: [address] [place] [address] Performed By: #### 5 7021-8 #### [facility] CLIA [id number] [address] [place] [address] 47690 Lymphocytes/100 WBC (Bld) 29.7 % Normal [facility] Comment on above: Order Comment: Speci men Type: BLOOD SPECIMEN Ordering Facility: [facility] Address: [address] [place] [address] Performed By: #### 5 7021-8 #### [facility] CLIA [id number] [address] [place] [address] 86114 MCH (RBC) [Entitic mass] 28.8 pg Normal 26.0-34.0 [facility] Comment on above: Order Comment: Speci men Type: BLOOD SPECIMEN Ordering Facility: [facility] Address: [address] [place] [address] Performed By: #### 5 7021-8 #### [facility] CLIA [id number] [address] [place] [address] 23473 MCHC (RBC) [Mass/Vol] 32.7 g/dL Normal 30.5-36.0 [facility] Comment on above: Order Comment: Speci men Type: BLOOD SPECIMEN Ordering Facility: [facility] Address: [address] [place] [address] Performed By: #### 5 7021-8 #### [facility] CLIA [id number] [address] [place] [address] 55141 MCV (RBC) [Entitic vol] 88.2 fL Normal 80.0-100.0 [facility] Comment on above: Order Comment: Speci men Type: BLOOD SPECIMEN Ordering Facility: [facility] Address: [address] [place] [address] Performed By: #### 5 7021-8 #### [facility] CLIA [id number] [address] [place] [address] 15711 Monocytes (Bld) [#/Vol] 0.49 10*3/uL Normal <0.87 [facility] Comment on above: Order Comment: Speci men Type: BLOOD SPECIMEN Ordering Facility: [facility] Address: [address] [place] [address] Performed By: #### 5 7021-8 #### [facility] CLIA [id number] [address] [place] [address] 99093 Monocytes/100 WBC (Bld) 6.3 % Normal [facility] Comment on above: Order Comment: Speci men Type: BLOOD SPECIMEN Ordering Facility: [facility] Address: [address] [place] [address] Performed By: #### 5 7021-8 #### [facility] CLIA [id number] [address] [place] [address] 86102 Neutrophils (Bld) [#/Vol] 4.70 10*3/uL Normal 1.45-7.50 [facility] Comment on above: Order Comment: Speci men Type: BLOOD SPECIMEN Ordering Facility: [facility] Address: [address] [place] [address] Performed By: #### 5 7021-8 #### [facility] CLIA [id number] [address] [place] [address] 03352 Neutrophils/100 WBC (Bld) 60.6 % Normal [facility] Comment on above: Order Comment: Speci men Type: BLOOD SPECIMEN Ordering Facility: [facility] Address: [address] [id number] Performed By: #### 5 7021-8 #### [facility] CLIA [id number] [address] [place] [address] Nucleated RBC (Bld) [#/Vol] 10*3/uL Normal <0.01 [facility] Comment on above: Order Comment: Speci men Type: BLOOD SPECIMEN Ordering Facility: [facility] Address: [address] [place] [address] Performed By: #### 5 7021-8 #### [facility] CLIA [id number] [address] [place] [address] Nucleated RBC/100 WBC (Bld) [Ratio] 0.0 /100 WBC Normal [facility] Comment on above: Order Comment: Speci men Type: BLOOD SPECIMEN Ordering Facility: [facility] Address: [address] [place] [address] Performed By: #### 5 7021-8 #### [facility] CLIA [id number] [address] [place] [address] 45857 Platelet mean volume (Bld) [Entitic vol] 9.6 fL Normal 9.0-12.7 [facility] Comment on above: Order Comment: Speci men Type: BLOOD SPECIMEN Ordering Facility: [facility] Address: [address] [place] [address] Performed By: #### 5 7021-8 #### [facility] CLIA [id number] [address] [place] [address] 26324 Platelets (Bld) [#/Vol] 248 10*3/uL Normal 150-400 [facility] Comment on above: Order Comment: Speci men Type: BLOOD SPECIMEN Ordering Facility: [facility] Address: [address] [place] [address] Performed By: #### 5 7021-8 #### [facility] CLIA [id number] [address] [place] [address] RBC (Bld) [#/Vol] 5.41 10*6/uL High 3.90-5.20 [facility] Comment on above: Order Comment: Speci men Type: BLOOD SPECIMEN Ordering Facility: [facility] Address: [address] [place] [address] Performed By: #### 5 7021-8 #### [facility] CLIA [id number] [address] [place] [address] 49889 WBC (Bld) [#/Vol] 7.75 10*3/uL Normal 3.70-11.00 [facility] Comment on above: Order Comment: Speci men Type: BLOOD SPECIMEN Ordering Facility: [facility] Address: [address] [place] [address] Performed By: #### 5 7021-8 #### [facility] CLIA [id number] [address] [place] [address] 73947 T3 SerPl-mCncon 02-01-2023 T3 [Mass/Vol] 123 ng/dL Normal 79-165 [facility] Comment on above: Order Comment: Speci men Type: BLOOD SPECIMEN Ordering Facility: [facility] Address: [address] [place] [address] Performed By: #### 3 053-6, 3016-3, 3026-2 #### [facility] CLIA [id number] [address] [place] [address] [place] T4 SerPl-mCncon 02-01-2023 T4 [Mass/Vol] 11.9 ug/dL High 5.5-10.2 [facility] Comment on above: Order Comment: Speci men Type: BLOOD SPECIMEN Ordering Facility: [facility] Address: [address] [place] [address] Performed By: #### 3 053-6, 3016-3, 3026-2 #### [facility] CLIA [id number] [facility] [place] [address] [place] THYROGLOBULIN BY MASS SPECTR OMETRYon 02-01-2023 THYROGLOBULIN, LC-MS/MS <0.5 Low 1.3-31.8 [facility] Comment on above: Order Comment: Chel iverson Type: BLOOD SPECIMEN Ordering Facility: [facility] Address: [address] [place] [address] Result Comment: Results obtained with different test [...] developed and its performance characteristics determined by [facility]. It has not been cleared or approved by the [place] Food and Drug Administration. This test was performed in a CLIA certified laboratory and is intended for clinical purposes. Performed By: [facility] [address] [place] [address] Duck Farmer: Prem Willis MD, PhD CLIA Number: [id number] Performed By: #### T [facility] #### [facility] CLIA [id number] [address] [place] [address] TSH [facility] 02-01-2023 TSH Qn 0.960 m[IU]/L Normal 0.270-4.200 [facility] Comment on above: Order Comment: Chel iverson Type: BLOOD SPECIMEN Ordering Facility: [facility] Address: [address] [place] [address] Result Comment: If t he patient is , TSH reference range varies by gestational period: First Trimester (weeks 9-12): 0.180-2.990 mIU/L Second Trimester: 0.110-3.980 mIU/L Third Trimester: 0.480-4.710 mIU/L Suman Graf et al. A Practical Approach for the Verifications and Determination of Site- and Trimester-Specific Reference Intervals for Thyroid Function tests in . Thyroid, 2019:29:3:412-420. Rajesh Holman et al. 2017 Guidelines of the [place] [employer] for the Diagnosis and Management of Thyroid Disease during and the . Thyroid, 2017:27:3:315-389. Performed By: #### 3 053-6, 3016-3, 3026-2 #### [facility] CLIA [id number] [address] [place] [address] [place] PREG QUANT HCGon 08-17-2022 HCG QUANT 1 mIU/mL Normal [facility] Comment on above: Performed By: #### P REGQNT #### [facility] [address] [place] [address] Dr. Prashant Kang HCG RANGE SEE BELOW Normal [facility] Comment on above: Result Comment: 5-50 0.2-1 WEEK 50-500 1-2 WEEKS 100-5,000 2-3 WEEKS 500-10,000 3-4 WEEKS 1,000-50,000 4-5 WEEKS 10,000-100,000 5-6 WEEKS 15,000-200,000 6-8 WEEKS 10,000-100,000 2-3 MONTHS Performed By: #### P REGQNT #### [facility] [address] [place] [address] Dr. Prashant Kang PREG QUANT HCGon 07-04-2022 HCG QUANT <1 Normal [facility] Comment on above: Performed By: #### P REGQNT #### [facility] [address] [place] [address] Dr. Prashant Kang HCG RANGE SEE BELOW Normal [facility] Comment on above: Result Comment: 5-50 0.2-1 WEEK 50-500 1-2 WEEKS 100-5,000 2-3 WEEKS 500-10,000 3-4 WEEKS 1,000-50,000 4-5 WEEKS 10,000-100,000 5-6 WEEKS 15,000-200,000 6-8 WEEKS 10,000-100,000 2-3 MONTHS Performed By: #### P REGQNT #### [facility] [address] [place] [address] Dr. Prashant Kang PREG QUANT HCGon 05-16-2022 HCG QUANT <1 Normal [facility] Comment on above: Performed By: #### P TT, PT #### [facility] [address] [place] [address] Dr. Prashant Kang HCG RANGE SEE BELOW Normal [facility] Comment on above: Result Comment: 5-50 0.2-1 WEEK 50-500 1-2 WEEKS 100-5,000 2-3 WEEKS 500-10,000 3-4 WEEKS 1,000-50,000 4-5 WEEKS 10,000-100,000 5-6 WEEKS 15,000-200,000 6-8 WEEKS 10,000-100,000 2-3 MONTHS Performed By: #### P TT, PT #### [facility] [address] [place] [address] Dr. Prashant Kang PREG QUANT HCGon 05-08-2022 HCG QUANT <1 Normal [facility] Comment on above: Performed By: #### P REGQNT #### [facility] [address] [place] [address] Dr. Prashant Kang HCG RANGE SEE BELOW Normal [facility] Comment on above: Result Comment: 5-50 0.2-1 WEEK 50-500 1-2 WEEKS 100-5,000 2-3 WEEKS 500-10,000 3-4 WEEKS 1,000-50,000 4-5 WEEKS 10,000-100,000 5-6 WEEKS 15,000-200,000 6-8 WEEKS 10,000-100,000 2-3 MONTHS Performed By: #### P REGQNT #### [facility] [address] [place] [address] Dr. Prashant Kang CALCIUMon 03-08-2022 Calcium [Mass/Vol] 8.6 mg/dL Normal 8.5-10.1 [facility] Comment on above: Performed By: #### C A #### [facility] [address] [place] [address] Dr. Prashant Kang CALCIUMon 03-07-2022 Calcium [Mass/Vol] 8.4 mg/dL Critically low 8.5-10.1 [facility] Comment on above: Performed By: #### C A #### [facility] [address] [place] [address] Dr. Prashant Kang PREG HCG QUALon 03-07-2022 , QUAL Negative Normal NEGATIVE [facility] Comment on above: Performed By: #### P REG #### [facility] [address] [place] [address] Dr. Prashant Kang Covid-19 PCR (CVDTB)on SARS-CoV-2 [...] for this test is supported by the [place] of Health and Human Service's (HHS's) declaration [...] Performed By: #### C VDTBH #### [facility] [address] [place] [address] Dr. Prashant Kang CALCIUMon 02-24-2022 Calcium [Mass/Vol] 8.8 mg/dL Normal 8.5-10.1 [facility] Comment on above: Performed By: #### P TT, PT #### [facility] [address] [place] [address] Dr. Prashant Kang CBC AUTO DIFFon 02-24-2022 BASO # 0.0 103/ul Normal 0.0-0.1 [facility] Comment on above: Performed By: #### P TT, PT #### [facility] [address] [place] [address] Dr. Prashant Kang Basophils/100 WBC (Bld) 0.3 % Normal 0.2-2.0 [facility] Comment on above: Performed By: #### P TT, PT #### [facility] [address] [place] [address] Dr. Prashant Kang EO # 0.1 103/ul Normal 0.0-0.7 [facility] Comment on above: Performed By: #### P TT, PT #### [facility] [address] [place] [address] Dr. Prashant Kang Eosinophils/100 WBC (Bld) 1.5 % Normal 0.9-7.0 [facility] Comment on above: Performed By: #### P TT, PT #### [facility] [address] [place] [address] Dr. Prashant Kang Erythrocyte distribution width (RBC) [Ratio] 13.8 % Normal 11.0-15.0 [facility] Comment on above: Performed By: #### P TT, PT #### [facility] [address] [place] [address] Dr. Prashant Kang Hematocrit (Bld) [Volume fraction] 45.5 % Normal 36.0-48.0 [facility] Comment on above: Performed By: #### P TT, PT #### [facility] [address] [place] [address] Dr. Prashant Kang Hemoglobin (Bld) [Mass/Vol] 14.6 g/dL Normal 12.0-16.0 [facility] Comment on above: Performed By: #### P TT, PT #### [facility] [address] [place] [address] Dr. Prashant Kang IG # 0.02 10e3/ul Normal 0.00-0.03 [facility] Comment on above: Performed By: #### P TT, PT #### [facility] [address] [place] [address] Dr. Prashant Kang IG % 0.3 % Normal 0.0-0.5 [facility] Comment on above: Performed By: #### P TT, PT #### [facility] [address] [place] [address] Dr. Prashant Kang LYMPH # 1.6 103/ul Normal 1.2-3.[address] [facility] Comment on above: Performed By: #### P TT, PT #### [facility] [address] [address] [address] Prashant Kang Lymphocytes/100 WBC (Bld) 23.5 % Normal 20.5-60.0 [facility] Comment on above: Performed By: #### P TT, PT #### [facility] [address] [address] [address] Prashant Kang MANUAL DIFF REQ NO Normal [facility] Comment on above: Performed By: #### P TT, PT #### [facility] [address] [address] [address] Prashant Kang MCH (RBC) [Entitic mass] 26.5 pg Critically low 26.7-34.0 [facility] Comment on above: Performed By: #### P TT, PT #### [facility] [address] [place] [address] Dr. Prashant Kang MCHC (RBC) [Mass/Vol] 32.1 g/dL Normal 29.9-35.2 [facility] Comment on above: Performed By: #### P TT, PT #### [facility] [address] [place] [address] Dr. Prashant Kang MCV (RBC) [Entitic vol] 82.7 fL Normal 81.0-99.0 [facility] Comment on above: Performed By: #### P TT, PT #### [facility] [address] [place] [address] Dr. Prashant Kang MONO # 0.5 103/ul Normal 0.3-0.[address] [facility] Comment on above: Performed By: #### P TT, PT #### [facility] [address] [place] [address] Dr. Prashant Kang Monocytes/100 WBC (Bld) 7.5 % Normal 1.7-12.0 [facility] Comment on above: Performed By: #### P TT, PT #### [facility] [address] [place] [address] Dr. Prashant Kang NEUT # 4.6 103/ul Normal 1.4-6.5 [facility] Comment on above: Performed By: #### P TT, PT #### [facility] [address] [place] [address] Dr. Prashant Kang Neutrophils/100 WBC (Bld) 66.9 % Normal 43.0-75.0 [facility] Comment on above: Performed By: #### P TT, PT #### [facility] [address] [place] [address] Dr. Prashant Kang Platelet mean volume (Bld) [Entitic vol] 9.9 fL Normal 9.5-13.5 [facility] Comment on above: Performed By: #### P TT, PT #### [facility] [address] [place] [address] Dr. Prashant Kang PLT 239 103/ul Normal 150-450 [facility] Comment on above: Performed By: #### P TT, PT #### [facility] [address] [place] [address] Dr. Prashant Kang RBC 5.50 106/ul Critically high 4.20-5.[address] [facility] Comment on above: Performed By: #### P TT, PT #### [facility] [address] [place] [address] Dr. Prashant Kang WBC 6.8 103/ul Normal 4.0-11.0 [facility] Comment on above: Performed By: #### P TT, PT #### [facility] [address] [place] [address] Dr. Prashant Kang MAGNESIUMon 02-24-2022 Magnesium [Mass/Vol] 2.0 mg/dL Normal 1.8-2.[address] [facility] Comment on above: Performed By: #### P TT, PT #### [facility] [address] [place] [address] Dr. Prashant Kang PHOSPHORUSon 02-24-2022 Phosphate [Mass/Vol] 3.3 mg/dL Normal 2.6-4.[address] [facility] Comment on above: Performed By: #### P TT, PT #### [facility] [address] [place] [address] Dr. Prashant Kang PROTIMEon 02-24-2022 INR Coag (PPP) [Relative time] 1.01 {INR} Normal [facility] Comment on above: Performed By: #### P TT, PT #### [facility] [address] [place] [address] Dr. Prashant Kang INR GUIDELINES SEE BELOW Normal [facility] Comment on above: Result Comment: SAL[place] RED INR: 2.0 - 3.0 CONDITIONS NOT LISTED BELOW 2.5 - 3.5 FOR PROSTHETIC HEART VALVE REPLACEMENT 2.5 - 3.5 RECURRENT THROMBOSIS Performed By: #### P TT, PT #### [facility] [address] [address] [address] Prashant Kang PT Coag (PPP) [Time] 10.9 s Normal 9.0-11.[address] [facility] Comment on above: Performed By: #### P TT, PT #### [facility] [address] [place] [address] Dr. Prashant Kang PTTon 02-24-2022 aPTT Coag (Bld) [Time] 28.9 s Normal 22.3-36.[address] [facility] Comment on above: Performed By: #### P TT, PT #### [facility] [address] [place] [address] Dr. Prashant Kang TSHon 02-24-2022 TSH 1.163 uIU/mL Normal 0.358-3.740 [facility] Comment on above: Performed By: #### P TT, PT #### [facility] [address] [place] [address] Dr. Prashant Kang US THYROID FN ASP BXon 02-09 US THYROID FN ASP BX Begin Addendum #1 COLLECTED DATE/TIME: 02/03/2022 11:36 EDT Final Diagnosis Report for [facility] [place] [place] (A/B) THYROID ISTHMUS NODULE, FINE NEEDLE [...] EMERY Date: 2022-01-20 13:[address] [facility] US THYROIDon 01-20-2022 US THYROID EXAMINATION: [...] isthmus nodule. Consider fine-needle aspiration TI-RADS: The [employer] TI-RADS committee's white paper recommendations for thyroid lesions classified as TR4 (moderately suspicious) are listed below: > 1.0 cm. Follow-up ultrasound in 1, 2, 3, and 5 years. > 1.5 cm. FNA. J. Am More Radiol 2017;14:587-595. Electronically authenticated by: SHAILESH EMERY Date: 2022-01-20 21:[address] [facility] CBC AUTO DIFFon 01-08-2022 BASO # 0.0 103/ul Normal 0.0-0.1 [facility] Comment on above: Performed By: #### P TT, PT #### [facility] [address] [address] [address] Prashant Kang Basophils/100 WBC (Bld) 0.4 % Normal 0.2-2.0 [facility] Comment on above: Performed By: #### P TT, PT #### [facility] [address] [address] [address] Prashant Kang EO # 0.2 103/ul Normal 0.0-0.[address] [facility] Comment on above: Performed By: #### P TT, PT #### [facility] [address] [address] [address] Prashant Kang Eosinophils/100 WBC (Bld) 3.4 % Normal 0.9-7.0 [facility] Comment on above: Performed By: #### P TT, PT #### [facility] [address] [address] [address] Prashant Kang Erythrocyte distribution width (RBC) [Ratio] 14.6 % Normal 11.0-15.0 [facility] Comment on above: Performed By: #### P TT, PT #### [facility] [address] [address] [address] Prashant Kang Hematocrit (Bld) [Volume fraction] 42.9 % Normal 36.0-48.0 [facility] Comment on above: Performed By: #### P TT, PT #### [facility] [address] [place] [address] Dr. Prashant Kang Hemoglobin (Bld) [Mass/Vol] 13.4 g/dL Normal 12.0-16.0 [facility] Comment on above: Performed By: #### P TT, PT #### [facility] [address] [place] [address] Dr. Prashant Kang IG # 0.02 10e3/ul Normal 0.00-0.03 [facility] Comment on above: Performed By: #### P TT, PT #### [facility] [address] [place] [address] Dr. Prashant Kang IG % 0.3 % Normal 0.0-0.5 [facility] Comment on above: Performed By: #### P TT, PT #### [facility] [address] [place] [address] Dr. Prashant Kang LYMPH # 2.0 103/ul Normal 1.2-3.8 [facility] Comment on above: Performed By: #### P TT, PT #### [facility] [address] [place] [address] Dr. Prashant Kang Lymphocytes/100 WBC (Bld) 29.7 % Normal 20.5-60.0 [facility] Comment on above: Performed By: #### P TT, PT #### [facility] [address] [place] [address] Dr. Prashant Kang MANUAL DIFF REQ NO Normal [facility] Comment on above: Performed By: #### P TT, PT #### [facility] [address] [place] [address] Dr. Prashant Kang MCH (RBC) [Entitic mass] 26.3 pg Critically low 26.7-34.0 [facility] Comment on above: Performed By: #### P TT, PT #### [facility] [address] [place] [address] Dr. Prashant Kang MCHC (RBC) [Mass/Vol] 31.2 g/dL Normal 29.9-35.2 [facility] Comment on above: Performed By: #### P TT, PT #### [facility] [address] [place] [address] Dr. Prashant Kang MCV (RBC) [Entitic vol] 84.1 fL Normal 81.0-99.0 [facility] Comment on above: Performed By: #### P TT, PT #### [facility] [address] [place] [address] Dr. Prashant Kang MONO # 0.6 103/ul Normal 0.3-0.8 [facility] Comment on above: Performed By: #### P TT, PT #### [facility] [address] [place] [address] Dr. Prashant Kang Monocytes/100 WBC (Bld) 8.7 % Normal 1.7-12.0 [facility] Comment on above: Performed By: #### P TT, PT #### [facility] [address] [place] [address] Dr. Prashant Kang NEUT # 3.9 103/ul Normal 1.4-6.5 [facility] Comment on above: Performed By: #### P TT, PT #### [facility] [address] [place] [address] Dr. Prashant Kang Neutrophils/100 WBC (Bld) 57.5 % Normal 43.0-75.0 [facility] Comment on above: Performed By: #### P TT, PT #### [facility] [address] [place] [address] Dr. Prashant Kang Platelet mean volume (Bld) [Entitic vol] 9.9 fL Normal 9.5-13.[address] [facility] Comment on above: Performed By: #### P TT, PT #### [facility] [address] [place] [address] Dr. Prashant Kang PLT 241 103/ul Normal 150-[address] [facility] Comment on above: Performed By: #### P TT, PT #### [facility] [address] [place] [address] Dr. Prashant Kang RBC 5.10 106/ul Normal 4.20-5.40 [facility] Comment on above: Performed By: #### P TT, PT #### [facility] [address] [place] [address] Dr. Prashant Kang WBC 6.8 103/ul Normal 4.0-11.0 [facility] Comment on above: Performed By: #### P TT, PT #### [facility] [address] [place] [address] Dr. Prashant Kang GROUP A STREP CULTUREon 12-29 S. pyogenes Ag Ql (Unsp spec) Culture Observations: NEGATIVE FOR GROUP A STREPTOCOCCUS. Normal [facility] Comment on above: Performed By: #### P TT, PT #### [facility] [address] [place] [address] Dr. Prashant Kang PROF 14(COMP METB)on 022 Albumin [Mass/Vol] 3.6 g/dL Normal 3.4-5.0 [facility] Comment on above: Performed By: #### C MP #### [facility] [address] [place] [address] Dr. Prashant Kang Albumin/Globulin [Mass ratio] 0.8 {ratio} Normal [facility] Comment on above: Performed By: #### C MP #### [facility] [address] [place] [address] Dr. Prashant Kang ALP [Catalytic activity/Vol] 74 U/L Normal 46-116 [facility] Comment on above: Performed By: #### C MP #### [facility] [address] [place] [address] Dr. Prashant Kang ALT [Catalytic activity/Vol] 40 U/L Normal 14-59 [facility] Comment on above: Performed By: #### C MP #### [facility] [address] [place] [address] Dr. Prashant Kang Anion gap [Moles/Vol] 14.0 mmol/L Normal [facility] Comment on above: Performed By: #### C MP #### [facility] [address] [place] [address] Dr. Prashant Kang AST [Catalytic activity/Vol] 31 U/L Normal 15-37 [facility] Comment on above: Performed By: #### C MP #### [facility] [address] [address] [address] Prashant Kang Bilirubin [Mass/Vol] 0.4 mg/dL Normal 0.2-1.0 [facility] Comment on above: Performed By: #### C MP #### [facility] [address] [address] [address] Prashant Kang Calcium [Mass/Vol] 8.8 mg/dL Normal 8.5-10.1 [facility] Comment on above: Performed By: #### C MP #### [facility] [address] [place] [address] Dr. Prashant Kang Chloride [Moles/Vol] 105 mmol/L Normal 98-107 [facility] Comment on above: Performed By: #### C MP #### [facility] [address] [address] [address] Prashant Kang CO2 [Moles/Vol] 26.6 mmol/L Normal 21.0-32.0 [facility] Comment on above: Performed By: #### C MP #### [facility] [address] [place] [address] Dr. Prashant Kang Creatinine [Mass/Vol] 0.80 mg/dL Normal 0.55-1.02 [facility] Comment on above: Performed By: #### C MP #### [facility] [address] [address] [address] Prashant Kang EGFR-AF MOLDOVAN >60 Normal >=[address] [facility] Comment on above: Performed By: #### C MP #### [facility] [address] [address] [address] Prashant Kang EGFR-NON AF MOLDOVAN >60 Normal >=60 [facility] Comment on above: Performed By: #### C MP #### [facility] [address] [place] [address] Dr. Prashant Kang Globulin (S) [Mass/Vol] 4.3 g/dL Normal [facility] Comment on above: Performed By: #### C MP #### [facility] [address] [address] [address] Prashant Kang Glucose [Mass/Vol] 101 mg/dL Normal 74-106 [facility] Comment on above: Performed By: #### C MP #### [facility] [address] [address] [address] Prashant Kang Potassium [Moles/Vol] 4.6 mmol/L Normal 3.5-5.1 [facility] Comment on above: Performed By: #### C MP #### [facility] [address] [address] [address] Prashant Kang Protein [Mass/Vol] 7.9 g/dL Normal 6.4-8.2 [facility] Comment on above: Performed By: #### C MP #### [facility] [address] [address] [address] Prashant Kang Sodium [Moles/Vol] 141 mmol/L Normal 136-145 [facility] Comment on above: Performed By: #### C MP #### [facility] [address] [address] [address] Prashant Kang Urea nitrogen [Mass/Vol] 11.0 mg/dL Normal 7.0-18.0 [facility] Comment on above: Performed By: #### C MP #### [facility] [address] [address] [address] Prashant Kang Urea nitrogen/Creatinine [Mass ratio] 13.8 mg/mg Normal [facility] Comment on above: Performed By: #### C MP #### [facility] [address] [address] [address] Prashant Kang STREPT SCREENon 01-08-2022 STREP SCREEN A Negative Normal NEGATIVE [facility] Comment on above: Performed By: #### P TT, PT #### [facility] [address] [address] [address] Prashant Kang XR NECK SOFT TISSUEon [...] BARNETT Date: 2022-01-08 04:[address] [facility] Covid-19 PCR (CVDTBH)on SARS-CoV-2 (COVID-19) RNA [...] for this test is supported by the [place] of Health and Human Service's (HHS's) declaration [...] #### [facility] [address] [address] [address] Prashant Kang Vital Signs Date Time Vital Sign Value Performing Clinician Donta coleman 05-12-2024 13:54-0500 Body mass index (BMI) [Ratio] 37.7 kg/m2 [employer] Work Phone: [facility] 05-12-2024 13:54-0500 Body weight 93.5 kg [employer]osta [employer] Work Phone: [facility] 05-12-2024 13:54-0500 Diastolic blood pressure 60 mm[Hg] Acosta Shania DO Work Phone: [facility] 05-12-2024 13:54-0500 Systolic blood pressure 120 mm[Hg] Acosta Shania DO Work Phone: [facility] 04-14-2024 13:52-0500 Body mass index (BMI) [Ratio] 39.69 kg/m2 Acosta Shania DO Work Phone: [facility] 04-14-2024 13:52-0500 Body weight 98.43 kg Acosta Shania DO Work Phone: [facility] 04-14-2024 13:52-0500 Diastolic blood pressure 72 mm[Hg] Acosta Shania DO Work Phone: [facility] 04-14-2024 13:52-0500 Systolic blood pressure 122 mm[Hg] Acosta Shania DO Work Phone: [facility] 03-31-2024 13:44-0500 Body mass index (BMI) [Ratio] 40.75 kg/m2 Acosta Shania DO Work Phone: [facility] 03-31-2024 13:44-0500 Body weight 101.06 kg Acosta Shania DO Work Phone: [facility] 03-31-2024 13:44-0500 Diastolic blood pressure 70 mm[Hg] Acosta Shania DO Work Phone: [facility] 03-31-2024 13:44-0500 Systolic blood pressure 120 mm[Hg] Acosta Shania DO Work Phone: [facility] 03-24-2024 13:16-0500 Body mass index (BMI) [Ratio] 40.02 kg/m2 Acosta Shania DO Work Phone: [facility] 03-24-2024 13:16-0500 Body weight 99.25 kg Acosta Shania DO Work Phone: [facility] 03-24-2024 13:16-0500 Diastolic blood pressure 70 mm[Hg] Acosta Shania DO Work Phone: [facility] 03-24-2024 13:16-0500 Systolic blood pressure 120 mm[Hg] Acosta Shania DO Work Phone: [facility] 03-10-2024 13:45-0500 Body mass index (BMI) [Ratio] 40.38 kg/m2 Acosta Shania DO Work Phone: [facility] 03-10-2024 13:45-0500 Body weight 100.15 kg Acosta Shania DO Work Phone: [facility] 03-10-2024 13:45-0500 Diastolic blood pressure 76 mm[Hg] Acosta Shania DO Work Phone: [facility] 03-10-2024 13:45-0500 Systolic blood pressure 114 mm[Hg] Acosta Shania DO Work Phone: [facility] 02-25-2024 14:08-0400 Body mass index (BMI) [Ratio] 39.87 kg/m2 Kim YAO Work Phone: [facility] 02-25-2024 14:08-0400 Body weight 98.88 kg Kim YAO Work Phone: [facility] 02-25-2024 14:08-0400 Diastolic blood pressure 70 mm[Hg] Kim YAO Work Phone: [facility] 02-25-2024 14:08-0400 Systolic blood pressure 114 mm[Hg] Kim Bull PA Work Phone: [facility] 02-11-2024 11:10-0400 Body mass index (BMI) [Ratio] 40.2 kg/m2 Acosta Shania DO Work Phone: [facility] 02-11-2024 11:10-0400 Body weight 99.7 kg Acosta Shania DO Work Phone: [facility] 02-11-2024 11:10-0400 Diastolic blood pressure 64 mm[Hg] Acosta Shania DO Work Phone: [facility] 02-11-2024 11:10-0400 Systolic blood pressure 112 mm[Hg] Acosta Shania DO Work Phone: [facility] 01-14-2024 13:36-0400 Body mass index (BMI) [Ratio] 39.1 kg/m2 Acosta Shania DO Work Phone: [facility] 01-14-2024 13:36-0400 Body weight 96.98 kg Acosta Shania DO Work Phone: [facility] 01-14-2024 13:36-0400 Diastolic blood pressure 60 mm[Hg] Acosta Shania DO Work Phone: [facility] 01-14-2024 13:36-0400 Systolic blood pressure 120 mm[Hg] Acosta Shania DO Work Phone: [facility] 12-17-2023 14:20-0400 Body mass index (BMI) [Ratio] 39.51 kg/m2 Acosta Shania DO Work Phone: [facility] 12-17-2023 14:20-0400 Body weight 97.98 kg Acosta Shania DO Work Phone: [facility] 12-17-2023 14:20-0400 Diastolic blood pressure 80 mm[Hg] Acosta Shania DO Work Phone: [facility] 12-17-2023 14:20-0400 Systolic blood pressure 124 mm[Hg] Acosta Shania DO Work Phone: [facility] 06-12-2023 13:54-0500 Body mass index (BMI) [Ratio] 40.6 kg/m2 Acosta Shania DO Work Phone: [facility] 06-12-2023 13:54-0500 Body weight 100.7 kg Acosta Shania DO Work Phone: [facility] 06-12-2023 13:54-0500 Diastolic blood pressure 74 mm[Hg] Acosta Shania DO Work Phone: [facility] 06-12-2023 13:54-0500 Systolic blood pressure 118 mm[Hg] Acosta Shania DO Work Phone: [facility] 05-04-2022 09:40-0500 Body temperature 97.2 [degF] NA Jose BULLOCK Work Phone: [facility] 05-04-2022 09:40-0500 Body weight 88.81 kg NA Jose BULLOCK Work Phone: [facility] 05-04-2022 09:40-0500 Diastolic blood pressure 73 mm[Hg] NA Jose BULLOCK Work Phone: [facility] 05-04-2022 09:40-0500 Heart rate 67 /min JONNY Rai MD Work Phone: [facility] 05-04-2022 09:40-0500 Respiratory rate 16 /min JONNY Rai MD Work Phone: [facility] 05-04-2022 09:40-0500 SaO2% (BldA) [Mass fraction] 100 % NA Jose BULLOCK Work Phone: [facility] 05-04-2022 09:40-0500 Systolic blood pressure 113 mm[Hg] JONNY Rai MD Work Phone: [facility] Encounters Encounter Date Encounter Type Care Provider Facility Start: 06-06-2024 End: 06-06-2024 Clinisync Result Encounter Acosta Shania DO Work Phone: [facility] External Department Unsolicited Start: 06-06-2024 End: 06-06-2024 Clinisync Result Encounter Acosta Shania DO Work Phone: [facility] External Department Unsolicited Start: 06-06-2024 End: 06-06-2024 ambulatory Sara Venegas MD Work Phone: [facility] Work Phone: Start: 06-06-2024 End: 06-06-2024 Departed Referred Sara Venegas MD Work Phone: [facility] Start: 05-12-2024 End: 05-12-2024 Office outpatient visit 15 minutes Acosta Shania DO Work Phone: [facility] Comment on above: 6 weeks f ollow-up; Pre-operative exam Start: 05-12-2024 End: 05-12-2024 Preprocedural examination done Acosta Shania DO Work Phone: [facility] Start: 05-12-2024 End: 05-12-2024 ambulatory ACOSTA SHANIA Not Available Start: 04-26-2024 End: 04-26-2024 ambulatory Sara Venegas Facility:[facility] Start: 04-26-2024 End: 04-26-2024 Departed Referred Sara Venegas MD Work Phone: [facility] Start: 04-19-2024 End: 04-19-2024 Clinisync Result Encounter [...] Start: 02-26-2024 End: 02-26-2024 Patient encounter procedure [facility] Comment on above: [...] (CMS/HCC) Start: 02-25-2024 End: 02-25-2024 ambulatory KIM BULL Not Available Start: 02-11-2024 End: 02-11-2024 Bamboo [...] 02-08-2024 End: 02-08-2024 Clinisync Result Encounter Acosta Shaina DO Work Phone: [facility] Unsolicited Start: 02-08-2024 End: 02-08-2024 Clinisync Result Encounter Acosta Shania DO Work Phone: [facility] Unsolicited Start: 01-23-2024 End: 01-24-2024 Telephone encounter Arslan Rai MD Work Phone: [facility] Comment on above: Patient Question Start: 01-14-2024 End: 01-14-2024 ambulatory ACOSTA SHANIA Not Available Start: 01-14-2024 End: 01-14-2024 Office outpatient visit 15 minutes Acosta Shania DO Work Phone: [facility] Comment on above: 25 weeks gestation o f ; Diabetes mellitus screening; First trimester Start: 01-11-2024 End: 01-11-2024 ambulatory ACOSTA R [facility] Start: 01-02-2024 End: 01-02-2024 Clinisync Result [...] Not Available Start: 11-12-2023 Telephone encounter Arslan Rai MD Work Phone: Radiation Oncology Comment on above: Patient Update; Orde rs; Future Appointment Start: 10-24-2023 End: 10-25-2023 ambulatory Arslan Rai MD Work Phone: [facility] Comment on above: Thyroid cancer (HCC) (Primary Dx) Start: 10-24-2023 End: 10-25-2023 Telemedicine consultation with patient Arslan Rai MD Work Phone: [facility] Start: 10-16-2023 End: 10-16-2023 ambulatory ACOSTA SHANIA Not Available Start: 09-14-2023 End: 09-14-2023 ambulatory ACOSTA SHANIA Not Available Start: 07-19-2023 Telephone encounter Edna Portillo Hematology/Oncology Comment on above: Orders Start: 06-25-2023 Telephone encounter Arslan Rai MD Work Phone: Radiation Oncology Comment on above: Future Appointment Start: 06-12-2023 End: 06-12-2023 Office outpatient visit 15 minutes Acosta Shania DO Work Phone: [facility] Comment on above: Missed menses; Amenorrhea Start: 06-12-2023 End: 06-12-2023 ambulatory ACOSTA SHANIA Not Available Start: 02-14-2023 Telephone encounter Arslan Rai MD Work Phone: Cancer [facility] Comment on above: Appointment Confirma tion Start: 02-08-2023 End: 02-08-2023 ambulatory SARA VENEGAS Facility:[facility] Start: 02-01-2023 End: 02-01-2023 ambulatory SARA VENEGAS Facility:[facility] Start: 11-09-2022 Telephone encounter [facility]slan Rai MD [facility] Comment on above: Appointment Confirma tion Start: 09-01-[address] SARA VENEGAS . Facili ty:[facility] Start: 08-23-2022 End: 08-23-2022 ambulatory DHRUV MCDONALD Facility:[facility] Start: 08-17-2022 End: 08-27-[address] ACOSTA JAUREGUI . Facility:[facility] Start: 08-06-2022 End: 08-06-2022 ambulatory DHRUV MCDONALD Facility:[facility] Start: 07-17-2022 Telephone encounter Arslan Rai MD Work Phone: Radiation Oncology Comment on above: Phone Visit Start: 07-04-2022 End: 07-28-[address] ACOSTA JAUREGUI . Facility:[facility] Start: 05-08-2022 End: 05-30-[address] ACOSTA JAUREGUI . Facility:[facility] Start: 05-04-2022 End: 05-04-2022 Patient encounter procedure Arslan Rai MD Work Phone: Radiation Oncology Comment on above: Thyroid cancer (HCC) (Primary Dx) Start: 04-25-2022 Telephone encounter G Felipe Rai MD Work Phone: [facility] Comment on above: Missed Appointment Start: 04-20-2022 Patient encounter procedure [facility] Provider [facility] Department Start: 04-11-2022 End: 04-11-2022 Patient encounter procedure [facility] [place] Work Phone: Radiation Oncology Comment on above: Thyroid cancer (HCC) (Primary Dx) Start: 03-09-2022 Encounter for preprocedural laboratory examination DR CHARLIE EASTMAN [facility] Start: 03-07-2022 End: 03-08-2022 [...] Start: 01-20-2022 End: 01-21-[address] SARA VENEGAS . Facility:[facility] Start: 01-08-2022 End: 01-08-[address] GAIL STOLL Facility:[facility] Start: 01-04-2022 End: 01-04-[address] SARA VENEGAS . Facility:[facility] Start: 12-12-2021 End: 12-12-2021 ambulatory DHRUV [place] Facility:[facility] Procedures Date Procedure Procedure Detail Performing Clinician Start: 06-06-2024 ALL CBC WITH AUTO DIFF Acosta Shania DO Work Phone: Start: 04-26-2024 Urine culture Sara quarles MD Work Phone: Start: 04-19-2024 ALL CBC WITH AUTO DIFF [...] Acosta Shania DO Work Phone: Start: 11-13-2023 Microscopic observat ion [Identifier] in Cervix by Cyto stain Acosta Shania DO Work Phone: Start: 11-13-2023 Cytp cerv/vag auto t hin layer prep mnl screen Acosta Jauregui DO Work Phone: Plan of Treatment Date Care Activity Detail Author Start: 11-12-2028 Screening for malign ant neoplasm of cervix [facility] Start: 01-10-2025 Adult BMI Screening Adult BMI Screen ing [facility] Start: 01-10-2025 Tobacco Screening Tobacco Screening [facility] Start: 05-12-2024 End: 05-12-2024 ambulatory 05/12/2024 1:40 PM EST Visit [facility] [address] [place] [address] Acosta Jauregui, DO [address] [place], [place] [id number] [facility] Start: 04-14-2024 End: 04-14-2024 Patient encounter procedure 04/14/2024 1:20 PM EST Routine [facility] [address] [place] [id number] Acosta Jauregui, DO [address] [place], [place] [id number] [facility] Start: 03-31-2024 End: 03-31-2025 Strep B DNA probe, amplification Strep B DNA probe, amplification Lab Routine Third trimester Expected: 03/31/2024 (Approximate), Expires: 03/31/[address] [facility] Work Phone: Comment on above: Expected: 03/31/2024 (Approximate), Expires: 03/31/2025 Start: 03-31-2024 End: 03-31-2024 Patient encounter procedure [facility] Comment on above: Arrived Start: 03-24-2024 End: 03-24-2024 Patient encounter procedure 03/24/2024 1:00 PM EST Routine [facility] [address] [place] [address] Acosta Jauregui, DO [address] [place] [address] [facility] Start: 03-10-2024 End: 03-10-2024 Patient encounter procedure 03/10/2024 1:00 PM EST Routine [facility] [address] [place] [id number] Acosta Jauregui, DO [address] [facility] [place] [address] [facility] Start: 02-25-2024 End: 02-24-2025 [...] mellitus screening Expected: 01/14/2024 (Approximate), Expires: 01/13/2025 [facility] Work Phone: Comment on above: Expected: 01/14/2024 (Approximate), Expires: 01/13/2025 Start: 01-14-2024 End: 01-14-2024 Patient encounter procedure 01/14/2024 1:20 PM EDT Routine [facility] [address] [place] [address] Acosta Jauregui, DO [address] [place], [place] [id number] [facility] Start: 12-30-2023 Covid-19 Vaccine ( season) Covid-19 Vaccine () [facility] Start: 12-30-2023 Influenza vaccination C [facility] Start: 08-15-2023 End: 11-14-2023 Thyroglobulin and Thyrogobulin Ab panel - Serum or Plasma THYROGLOBULIN, SERUM WITH REFLEX TO IA OR LC-MS/MS Lab Routine Thyroid cancer (HCC) Expected: 08/15/2023, Expires: 11/14/2023 [facility] Work Phone: Comment on above: Expected: 08/15/2023 , Expires: 11/14/2023 Start: 08-15-2023 End: 11-14-2023 Thyrotropin [Units/volume] in Serum or Plasma THYROID STIMULATING HORMONE Lab Routine Thyroid cancer (HCC) Expected: 08/15/2023, Expires: 11/14/2023 [facility] Work Phone: Comment on above: Expected: 08/15/2023 , Expires: 11/14/2023 Start: 08-15-2023 End: 11-14-2023 Thyroxine (T4) [Mass/volume] in Serum or Plasma T4/THYROXINE Lab Routine Thyroid cancer (HCC) Expected: 08/15/2023, Expires: 11/14/2023 [facility] Work Phone: Comment on above: Expected: 08/15/2023 , Expires: 11/14/2023 Start: 06-26-2023 End: 06-26-2023 Professional / ancillary services management 06/26/2023 1:00 PM EST Ancillary Procedure [facility] [address] [place] [address] [facility] Start: 06-12-2023 End: 06-12-2024 US for US PELVIS-TRANSVAG IF INDICATED Imaging Routine Amenorrhea Expected: 06/12/2023 (Approximate), Expires: 06/12/2024 [facility] Comment on above: Expected: 06/12/2023 (Approximate), Expires: 06/12/2024 Start: 04-30-2023 Behavioral Health Screening Behavioral Health Screening [facility] Start: 04-30-2023 Depression Assessment Depression Ass essment [facility] Start: 12-29-2022 Covid-19 Vaccine () Covid-19 Vaccine () [facility] Start: 12-29-2022 Influenza vaccination C [facility] Start: 07-02-2022 End: 09-01-2022 THYROGLOBULIN BY MASS SPECTROMETRY THYROGLOBULIN BY MASS SPECTROMETRY Lab Routine Thyroid cancer (HCC) Expected: 07/02/2022, Expires: 09/01/2022 [facility] Work Phone: Comment on above: Expected: 07/02/2022 , Expires: 09/01/2022 Start: 07-02-2022 End: 09-01-2022 Thyrotropin [Units/volume] in Serum or Plasma TSH BLD Lab Routine Thyroid cancer (HCC) Expected: 07/02/2022, Expires: 09/01/2022 [facility] Work Phone: Comment on above: Expected: 07/02/2022 , Expires: 09/01/2022 Start: 07-02-2022 End: 09-01-2022 Thyroxine (T4) [Mass/volume] in Serum or Plasma T4/THYROXINE BLOOD Lab Routine Thyroid cancer (HCC) Expected: 07/02/2022, Expires: 09/01/2022 [facility] Work Phone: Comment on above: Expected: 07/02/2022 , Expires: 09/01/2022 Start: 04-30-2022 DEPRESSION ASSESSMENT DEPRESSION ASS [facility] Start: 2022 HPV TESTING HPV TESTING [facility] Start: 2022 Screening for malign ant neoplasm of cervix HPV Testing [facility] Start: 12-29-2021 Influenza vaccination INFLUENZA (#1) [facility] Start: 04-30-2021 [facility] Start: 2013 PAP TESTING PAP TESTING [facility] Start: 2013 Screening for malign ant neoplasm of cervix [facility] Start: 2011 DTaP,Tdap and Td Vaccines (1 - Tdap) DTaP,Tdap and Td Vaccines (1 - Tdap) [facility] Start: 2011 Hepatitis B Vaccine (1 of 3 - 19+ 3-dose series) Hepatitis B Vaccine (1 of 3 - 19+ 3-dose series) [facility] Start: 2011 Urine microalbumin profile [facility] Start: 2010 Adult BMI Follow Up Plan Adult BMI Follow Up Plan [facility] Start: 2010 Anxiety Screening Anxiety Screening [facility] Start: 2010 Depression Screening [facility] Scre [facility] [facility] HEPATITIS C SCREENING HEPATITIS C [facility] Start: 2010 Hepatitis C screening Hepatitis C [facility] Start: 2010 HIV SCREENING HIV SCREENING [facility] Start: 2010 HIV screening HIV Screening [facility] Start: 2004 Depression Screening Depression Scre ing [facility] Start: 1998 PNEUMOCOCCAL (1 - PCV) PNEUMOCOCCAL (1 - PCV) [facility] Start: 1998 Pneumococcal vaccination [facility] Start: 1992 COVID-19 VACCINE (#1) COVID-19 VACCI NE (#1) [facility] Start: 1992 HEPATITIS B (1 of 3 - 3-dose series) HEPATITIS B (1 of 3 - 3-dose series) [facility] Start: 1992 Hepatitis B Vaccine (1 of 3 - 3-dose series) Hepatitis B Vaccine (1 of 3 - 3-dose series) [facility] Start: 1992 Tobacco Counseling Tobacco Counselin [facility] CBC W Auto Different ial panel - Blood CBC and differential Lab Routine Amenorrhea Ordered: 06/12/2023 [facility] Comment on above: Ordered: 06/12/2023 hCG, quantitative, hCG, quantitative, Lab Routine Amenorrhea Ordered: 06/12/2023 [facility] Comment on above: Ordered: 06/12/2023 Hemoglobin A1c measurement Hemoglobin A1c Lab Routine Amenorrhea Ordered: 06/12/2023 [facility] Comment on above: Ordered: 06/12/2023 Hemoglobin A1c/Hemoglobin.total in Blood Hemoglobin A1c Lab Routine Diabetes mellitus screening Ordered: 01/14/2024 [facility] Comment on above: Ordered: 01/14/2024 Hemoglobin A1c/Hemoglobin.total in Blood Hemoglobin A1c Lab Routine Diabetes mellitus screening Ordered: 12/17/2023 [facility] Work Phone: Comment on above: Ordered: 12/17/2023 Prolactin Prolactin Lab Ro utine Amenorrhea Ordered: 06/12/2023 [facility] Comment on above: Ordered: 06/12/2023 Thyrotropin [Units/volume] in Serum or Plasma TSH Lab Routine Amenorrhea Ordered: 06/12/2023 [facility] Work Phone: Comment on above: Ordered: 06/12/2023 [facility] Payers Date Payer Category Payer Self-pay 2022 Medicaid HMO [employer] [id number] 2020 Medicaid [id number] 2020 Medicaid (Managed Care) [employer] [id number] 1992 Unknown [id number] 2.16.840.1.488884.3.579.2. 593 1992 Unknown [id number] 2.16.840.1.331638.3.579.2. 593 1992 Unknown [id number] 2.16.840.1.590052.3.579.2. 593 1992 Unknown [id number] 2.16.840.1.568160.3.579.2. 593 1992 Unknown [id number] 2.16.840.1.540753.3.579.2. 593 1992 Unknown [id number] 2.16.840.1.551572.3.579.2. 593 1992 Unknown [id number] 2.16.840.1.353123.3.579.2. 593 1992 Unknown [id number] 2.16.840.1.115670.3.579.2. 593 1992 Unknown [id number] 2.16.840.1.751864.3.579.2. 593 1992 Unknown [id number] 2.16.840.1.798162.3.579.2. 593 1992 Unknown [id number] 2.16.840.1.738683.3.579.2. 593 1992 Unknown [id number] 2.16.840.1.384714.3.579.2. 593 1992 Unknown [id number] 2.16.840.1.123246.3.579.2. 593 1992 Unknown [id number] 2.16.840.1.489468.3.579.2. 593 1992 Unknown [id number] 2.16.840.1.832895.3.579.2. 593 1992 Unknown [id number] 2.16.840.1.014736.3.579.2. 1286 1992 Unknown [id number] 2.16.840.1.774658.3.579.2. 1286 1992 Unknown [id number] 2.16.840.1.248832.3.579.2. 1259 1992 Unknown [id number] 2.16.840.1.269465.3.579.2. 9 1992 Unknown [id number] 2.16.840.1.734560.3.579.2. 1259 1992 Unknown [id number] 2.16.840.1.025356.3.579.2. 1259 1992 Unknown [id number] 2.16.840.1.956007.3.579.2. 1259 1992 Unknown [id number] 2.16.840.1.029577.3.579.2. 1259 1992 Unknown [id number] 2.16.840.1.870874.3.579.2. 1259 1992 Unknown [id number] 2.16.840.1.223958.3.579.2. 1259 1992 Unknown [id number] 2.16.840.1.593058.3.579.2. 1259 1992 Unknown [id number] 2.16.840.1.194496.3.579.2. 1259 1992 Unknown [id number] 2.16.840.1.567306.3.579.2. 1259 1992 Unknown [id number] 2.16.840.1.198048.3.579.2. 1259 1992 Unknown [id number] 2.16.840.1.065834.3.579.2. 1259 1959 Unknown [id number] Medicaid [employer] Medicaid [id number] Medicaid [employer] Medicaid [id number] Unknown [id number] 2.16.840.1.130861.3.579.2. 531 Unknown [id number] 2.16.840.1.527637.3.579.2. 531 Social History Date Type Detail Facility Start: 04-11-2022 End: 09-23-2022 Tobacco smoking status NYIS Smokes tobacco daily [facility] History of tobacco use [facility]igarette [facility] Start: 04-11-2022 End: 09-14-2023 Cigarettes smoked current (pack per day) - Reported 1 [facility] Start: 04-11-2022 End: 09-23-2022 Tobacco use and exposure Smokeless tobacco non-user [facility] Start: 04-11-2022 End: 05-12-2024 Alcohol intake Current drinker of alcohol (finding) [facility] Start: 04-11-2022 Alcohol Comment socially [facility] Start: 1990 [facility] Start: 05-04-2022 End: 09-14-2023 Tobacco use panel [facility] Adult Depression Screening Assessment 0 [facility] Start: 10-03-2022 Alcohol Comment caffeine intak e: 1-2 cups per day [facility] Start: 1990 Sex Assigned At Female [facility] Start: 10-04-2022 Gender identity Identifies as female gender (finding) [facility] Start: 08-06-2023 [facility] Start: 01-11-2024 Alcoholic beverage intake Ex-drinker (finding) [facility] Start: 08-26-2018 End: 06-10-2024 Sex Female (finding) [facility] Tobacco smoking stat [facility] Unknown if ever smoked [facility] Work Phone: Clinical Notes 03-07-2022 to 05-12-2024 Sylviasilvia Rader, [facility] - 05/12/2024 1:40 PM Orly Clement, [facility] - 04/14/2024 1:20 PM Orly Clement, [facility] - 03/31/2024 1:30 PM ESTSjaclyn Woodylara, [facility] - 03/24/2024 1:00 PM EST Note Date & Type Note Facility 05-12-2024 History of Present illness Narrative Reason for Appointment: Patient ID: Amanda Ramirez is a 34 y.o. female who presents for Follow-up and Pre-op Visit Patient presents today for Post Follow Up appointment. and Pre Op appointment. Patient is scheduled to undergo Bilateral Laparoscopic Salpingectomy on 06/06/[address] Jauregui at [facility]. MEDICATIONS Current Outpatient Medications Medication Instructions [...] nursing note reviewed. Exam conducted with a rn procedures present. Vitals: Estimated body mass index is [...] reviewed, and patient is to proceed to [facility] OR. Follow Up: Patient is to follow up between 1-2 weeks post operative to assess proper healing and recovery from procedure. Documented by Sylvia Rader LPN on behalf of: Acosta Jauregui DO documented in this encounter [facility] 04-14-2024 History of Present illness Narrative Reason for Appointment: Patient ID: Amanda Ramirez is a 34 y.o. 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 29 weeks gestation of 02/11/2024 Non compliance w medication regimen 02/11/2024 History of placental abruption 02/11/2024 Resolved Ambulatory Problems Diagnosis Date Noted Acid reflux 09/23/2022 Amenorrhea 09/23/2022 Lesion of palate 09/23/2022 depression ([facility]/HCC) 09/23/2022 Vaginal delivery 09/23/2022 Past Medical History: Diagnosis Date Chronic maxillary sinusitis Diarrhea Ear problems Family planning Fatigue Fibroadenoma of breast, right Foreign body sensation in throat History of miscarriage LPRD (laryngopharyngeal reflux disease) Obesity Papilloma of palate PCOS (polycystic ovarian syndrome) Thyroid cancer (CMS/HCC) Thyroid mass (CMS/HCC) 09/23/2022 Thyroid nodule ([facility]) HISTORY PAST MEDICAL HISTORY SOCIAL [...] nursing note reviewed. Exam conducted with a rn procedures present. Vitals: Estimated body mass index is [...] Acosta Jauregui DO documented in this encounter [facility] 03-31-2024 History of Present illness Narrative Reason for Appointment: Patient ID: Amanda Ramirez is a 34 y.o. female who presents [...] nursing note reviewed. Exam conducted with a rn procedures present. Vitals: Estimated body mass index is [...] Acosta Jauregui DO documented in this encounter [facility] 03-24-2024 History of Present illness Narrative Reason for Appointment: Patient ID: Amanda Ramirez is a 33 y.o. 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 29 weeks gestation of 02/11/2024 Non compliance w medication regimen 02/11/2024 History of placental abruption 02/11/2024 Resolved Ambulatory Problems Diagnosis Date Noted Acid reflux 09/23/2022 Amenorrhea 09/23/2022 Lesion of palate 09/23/2022 depression ([facility]) 09/23/2022 Vaginal delivery 09/23/2022 Past Medical History: Diagnosis Date Chronic maxillary sinusitis Diarrhea Ear problems Family planning Fatigue Fibroadenoma of breast, right Foreign body sensation in throat History of miscarriage LPRD (laryngopharyngeal reflux disease) Obesity Papilloma of palate PCOS (polycystic ovarian syndrome) Thyroid cancer ([facility]/HCC) Thyroid mass ([facility]/HCC) 09/23/2022 Thyroid nodule ([facility]) HISTORY PAST MEDICAL HISTORY SOCIAL [...] nursing note reviewed. Exam conducted with a rn procedures present. Vitals: Estimated body mass index is [...] Acosta Jauregui DO documented in this encounter [facility] 03-10-2024 History of Present illness Narrative Reason for Appointment: Patient ID: Amanda Ramirez is a 33 y.o. female who presents [...] (CMS/HCC) Thyroid mass (CMS/HCC) 09/23/2022 Thyroid nodule ([facility]) Vaginal delivery 09/23/2022 Vaginal delivery Social History [...] nursing note reviewed. Exam conducted with a rn procedures present. Vitals: Estimated body mass index is [...] 2 weeks. Patient will continue NST/BPP at [facility] as well. Documented by Sylvia Rader LPN on behalf of: Acosta Jauregui DO documented in this encounter [facility] 02-26-2024 History of Present illness Narrative [facility] Patient visited the Food Clinic and received food documented in this encounter [facility] 02-25-2024 History of Present illness Narrative Reason for Appointment: Patient ID: Amanda Ramirez is a 33 y.o. female who presents [...] of: MAXIMILIAN Lombardo documented in this encounter [facility] 02-11-2024 History of Present illness Narrative Reason for Appointment: Patient ID: Amanda Ramirez is a 33 y.o. female who presents [...] nursing note reviewed. Exam conducted with a rn procedures present. Vitals: Estimated body mass index is [...] Acosta Jauregui DO documented in this encounter [facility] 01-24-2024 Telephone encounter Note I notified Amanda of Dr. Rai's response. She will call after she delivers in March 2024 to scheduled follow up. Irais Turpin RN [facility] 01-24-2024 Miscellaneous Notes I notified Amanda of Dr. Rai's response. She will call after she delivers in March 2024 to scheduled follow up. Irais Turpin RN Amanda called stating she is currently and is being followed very closely by TRAVELING REPRESENTATIVE in [place] and her local TRAVELING REPRESENTATIVE. She states her high risk is d/t her thyroid and placental rupture with her previous . She doesn't feel she needs to see endocrinology for thyroid function monitoring while since she's being followed so closely by OB. She would like to continue follow up for her thyroid cancer with Dr. Rai after delivery. Please advise. Ok with Dr. Rai to not schedule consult with endocrinology? When would Dr. Rai like to have follow up and possible lab work? Thanks Irais Turpin RN documented in this encounter [facility] 01-23-2024 Telephone encounter Note Amanda called stating she is currently and is being followed very closely by TRAVELING REPRESENTATIVE in [place] and her local TRAVELING REPRESENTATIVE. She states her high risk is d/t her thyroid and placental rupture with her previous . She doesn't feel she needs to see endocrinology for thyroid function monitoring while since she's being followed so closely by OB. She would like to continue follow up for her thyroid cancer with Dr. Rai after delivery. Please advise. Ok with Dr. Rai to not schedule consult with endocrinology? When would Dr. Rai like to have follow up and possible lab work? Thanks Irais Turpin RN [facility] 01-14-2024 History of Present illness Narrative Reason for Appointment: Patient ID: Amanda Ramirez is a 33 y.o. female who presents [...] nursing note reviewed. Exam conducted with a rn procedures present. Vitals: Estimated body mass index is [...] Estimated Date of Delivery: 04/28/24. Discussed recent [facility] appointment, weight loss and plan of care [...] Acosta Jauregui DO documented in this encounter [facility] 12-17-2023 History of Present illness Narrative Reason for Appointment: Patient ID: Amanda Ramirez is a 33 y.o. female who presents [...] nursing note reviewed. Exam conducted with a rn procedures present. Vitals: Estimated body mass index is [...] delivery. Patient will be referred to [facility]. Patient had ultrasound done today. Patient to return to clinic in 4 weeks for routine OB appointment. Patient will have Growth scans starting at 28 weeks and NST/BPP starting at 32 weeks gestation. Documented by Sylvia Rader LPN on behalf of: Acosta Jauregui DO documented in this encounter [facility] 11-13-[address] Christine office received ref and they will be calling patient to schedule appointment. Records faxed to Dr. Arteaga. Lawanda elbert send records to [facility] in your box Images from the original note were not included. Spoke to pt. She would like to see endocrinology in [place]. Pt's OB did adjust synthroid recently and has been monitoring labs. TREASURE- please sign pended order. PSS- please arrange visit when order is signed. KAREN Peters Tiffany Weyer, Angela, RN Previous Messages ----- Message ----- From: Arslan Rai MD Sent: 11/02/2023 12:08 PM EDT To: Obi Dunlpa; [facility] Nurse [place] Given what sounds like patient is in first trimester and ongoing concerns of breast-feeding recommend she follow-up with endocrinology. documented in this encounter [facility] 11-13-[address] Christine office received ref and they will be calling patient to schedule appointment. [facility] 11-12-2023 Telephone encounter Note Records faxed to Dr. Arteaga. [facility] 11-12-2023 Telephone encounter Note Lawanda please send records to [employer] in your box [facility] 11-12-2023 Telephone encounter Note Images from the original note were not included. Spoke to pt. She would like to see endocrinology in [place]. Pt's OB did adjust synthroid recently and has been monitoring labs. TREASURE- please sign pended order. PSS- please arrange visit when order is signed. KAREN Peters Tiffany Weyer, Angela, RN Previous Messages ----- Message ----- From: Arslan Rai MD Sent: 11/02/2023 12:08 PM EDT To: Obi Dunlap; [facility] Nurse [place] Given what sounds like patient is in first trimester and ongoing concerns of breast-feeding recommend she follow-up with endocrinology. [facility] 10-24-2023 Note HNO ID: [id number] Author: Arslan RAI MD Service: ? Author Type: Physician Type: Progress Notes Filed: 11/02/2023 12:08 Note Text: Unable to reach patient. [facility] 10-24-2023 History of Present illness Narrative Unable to reach patient. documented in this encounter [facility] 08-14-2023 Miscellaneous Notes TREASURE- please sign pended orders as hers will before she gets here if we are able to reach her to schedule. Danna Seo RN Please reach out to pt to schedule labs and follow up. Thank you Danna Seo RN Call placed to pt due to [...] phone visit for tomorrow. Thank you Danna Seo RN documented in this encounter [facility] 07-19-2023 Miscellaneous Notes Pt called to request labs sent to [facility]. Faxed to central scheduling. Edna Sal RN documented in this encounter [facility] 06-12-2023 History of Present illness Narrative Reason for Appointment: Patient ID: Amanda Ramirez is a 33 y.o. female who presents [...] Acosta Jauregui DO documented in this encounter [facility] 02-14-2023 Miscellaneous Notes Images from the original note were not included. Patient is scheduled for appointments Arslan Rai MD [facility] [place]; Obi Genao 4 months with labs. Orders have been placed in [facility]. documented in this encounter [facility] 02-08-2023 Note HNO ID: [id number] Author: Arslan Rai MD Service: ? Author Type: Physician Type: Progress Notes Filed: 02/14/2023 9:47 AM Note Text: AMBULATORY TELEPHONE VISIT Amanda Ramirez has consented to this telephone encounter. Persons [...] months. Total Time Spent: 6 minutes Arslan Rai MD [facility] 11-09-2022 Miscellaneous Notes Images from the original note were not included. Patient is called and scheduled. Arslan Rai MD [facility]; Obi Genao 8 weeks with labs, orders placed, thank you documented in this encounter [facility] 07-17-2022 Miscellaneous Notes Appointment has been changed to phone appt. Tj Funez Pt called in requesting to be switched to a phone visit tomorrow. Her kids are on spring break and a couple of them are sick. Labs have been done and resulted. PSS- please change to phone visit for tomorrow. Danna Seo RN documented in this encounter [facility] 05-04-2022 History of Present illness Narrative Radiation Oncology - FollowupNote PATIENT NAME: Amanda Ramirez PATIENT : 1990 DIAGNOSIS: Thyroid cancer, classic papillary thyroid carcinoma, status post total thyroidectomy and right neck exploration on 03/07/2022, stage I [id number]. HPI: Patient returns after further work-up and [...] and right neck exploration on 03/07/2022, stage [id number]. Patient does have significant thyroglobulin antibody however [...] to wait I-131 treatment. Signed by: Arslan Rai MD cc: To use this Smartlink, specify the provider ID whose address you want to display, e.g., .PROVADDR[1 (where 1 is the provider ID). No referring provider defined for this encounter. documented in this encounter [facility] 04-25-2022 Miscellaneous Notes Patient had been rescheduled. Tj Funez Images from the original note were not included. Called patient to reschedule, LMOV. MD Jessica Jenkins [facility] Nurse Pool; Tj Funez Unable to reach please reschedule documented in this encounter [facility] 04-11-2022 Nurse Note Amanda Ramirez presents in office today for: Lab Draw during Office Visit . Ordering Provider: Felipe Rai M.D. Test (s) ordered: TG Method for obtaining blood: Phlebotomy was performed, accessing right antecubital vein. Needle removed intact. Dressing secured. Patient denies discomfort, dizziness, light-headedness or weakness and left the department without assist. Danna Seo, RN documented in this encounter [facility] 03-07-2022 Note OPERATIVE NOTE OPERATION DATE: 03/07/2022 PRIMARY CARE PHYSICIAN: Sara Venegas M.D. SURGEON: Charlie Eastman M.D. ASSISTANTS: ANGE [...] of Food insecurity [facility] Third trimester state, [...] diabetes mellitus [facility] Diagnosis 6 weeks follow-up Pre-operative exam Unspecified pre-operative examination documented [facility] noteNo assessment information [facility] Work Phone: InstructionsNot on filedocumented in this encounter [facility] Summary Purpose Family History No Family History Records FoundNo Family History Records FoundNo Family History Records FoundNo Family History Records FoundNo Family History Records Found Advance Directives No Advanced Directives Records Found Advance Directive Response Recorded Date/ Time Advance Directives No September 14 9:15am Reason for Referral Specialty Diagnoses / Procedures Referred By Contac t Referred To Contact Endocrinology Diagnoses Thyroid cancer (HCC) Procedures CONSULT TO ENDOCRINOLOGY OFFICE/OUTPATIENT [facility] 60 MINUTES Arslan Rai MD [address] [place] [address] [place] [address] Referral ID Status Reason Start Date Expiration Date Visits Requested Visits Authorized [id number] Authorized PCP Requested Referral 11/12/2023 11/11/2024 1 1 Additional Source Comments Source Comments (unrecognize d section and content) In the event this informatio n is protected by the Federal Confidentiality of Alcohol and Drug Abuse Patient Records regulations: The Federal rules restrict any use of the information to criminally investigate or prosecute any alcohol or drug abuse patient.[facility] the event this information is protected by the Federal Confidentiality of Alcohol and Drug Abuse Patient Records regulations: The Federal rules restrict any use of the information to criminally investigate or prosecute any alcohol or drug abuse patient.[facility] the event this information is protected by the Federal Confidentiality of Alcohol and Drug Abuse Patient Records regulations: The Federal rules restrict any use of the information to criminally investigate or prosecute any alcohol or drug abuse patient.[facility] the event this information is protected by the Federal Confidentiality of Alcohol and Drug Abuse Patient Records regulations: The Federal rules restrict any use of the information to criminally investigate or prosecute any alcohol or drug abuse patient.[facility] the event this information is protected by the Federal Confidentiality of Alcohol and Drug Abuse Patient Records regulations: The Federal rules restrict any use of the information to criminally investigate or prosecute any alcohol or drug abuse patient.[facility] the event this information is protected by the Federal Confidentiality of Alcohol and Drug Abuse Patient Records regulations: The Federal rules restrict any use of the information to criminally investigate or prosecute any alcohol or drug abuse patient.[facility] NorthIn the event this information is protected by the Federal Confidentiality of Alcohol and Drug Abuse Patient Records regulations: The Federal rules restrict any use of the information to criminally investigate or prosecute any alcohol or drug abuse patient.[facility] NorthIn the event this information is protected by the Federal Confidentiality of Alcohol and Drug Abuse Patient Records regulations: The Federal rules restrict any use of the information to criminally investigate or prosecute any alcohol or drug abuse patient.[facility] NorthIn the event this information is protected by the Federal Confidentiality of Alcohol and Drug Abuse Patient Records regulations: The Federal rules restrict any use of the information to criminally investigate or prosecute any alcohol or drug abuse patient.[facility] NorthIn the event this information is protected by the Federal Confidentiality of Alcohol and Drug Abuse Patient Records regulations: The Federal rules restrict any use of the information to criminally investigate or prosecute any alcohol or drug abuse patient.[facility] NorthIn the event this information is protected by the Federal Confidentiality of Alcohol and Drug Abuse Patient Records regulations: The Federal rules restrict any use of the information to criminally investigate or prosecute any alcohol or drug abuse patient.[facility] NorthIn the event this information is protected by the Federal Confidentiality of Alcohol and Drug Abuse Patient Records regulations: The Federal rules restrict any use of the information to criminally investigate or prosecute any alcohol or drug abuse patient.[facility] Reason for Visit (unrecogniz ed section and [...] Care Teams (unrecognized sec tion and content) Manager Operating Relationship Specialty Start Date End Date Sara Venegas MD [address] [id number] PCP - General Family Medicine 04/11/22 Manager Operating Relationship Specialty Start Date End Date Sara Venegas MD [address] [place] [address] PCP - General Family Medicine 04/11/22 Manager Operating Relationship Specialty Start Date End Date Sara Venegas MD [address] [id number] PCP - General Family Medicine 04/11/22 Manager Operating Relationship Specialty Start Date End Date Sara Venegas MD PCP - General Family Medicine 04/11/22 Manager Operating Relationship Specialty Start Date End Date Sara Venegas MD PCP - General Family Medicine 04/11/22 Manager Operating Relationship Specialty Start Date End Date Sara Venegas MD [address] [place] [address] PCP - General Family Medicine 10/03/22 Manager Operating Relationship Specialty Start Date End Date Sara Venegas MD PCP - General Family Medicine 04/11/22 Manager Operating Relationship Specialty Start Date End Date Sara Venegas MD PCP - General Family Medicine 04/11/22 Manager Operating Relationship Specialty Start Date End Date Sara Venegas MD PCP - General Family Medicine 04/11/22 Manager Operating Relationship Specialty Start Date End Date Sara Venegas MD [address] [place] [address] PCP - General Family Medicine 10/03/22 Manager Operating Relationship Specialty Start Date End Date Sara Venegas MD [address] [place] [address] PCP - General Family Medicine 10/03/22 Manager Operating Relationship Specialty Start Date End Date Sara Venegas MD [address] [place] [address] PCP - General Family Medicine 10/03/22 Manager Operating Relationship Specialty Start Date End Date Sara Venegas MD [address] [place] [address] PCP - General 01/10/24 Manager Operating Relationship Specialty Start Date End Date Sara Venegas MD [address] [place] [address] PCP - General Family Medicine 10/03/22 Manager Operating Relationship Specialty Start Date End Date Sara Venegas MD [address] [facility] [address] PCP - General Family Medicine 10/03/22 Manager Operating Relationship Specialty Start Date End Date Sara Venegas MD [address] [facility] [place] [address] PCP - General Family Medicine 10/03/22 Manager Operating Relationship Specialty Start Date End Date Sara Venegas MD [address] [facility] [place] [address] PCP - General Family Medicine 10/03/22 Manager Operating Relationship Specialty Start Date End Date Sara Venegas MD [address] [facility] [place] [address] PCP - General Family Medicine 10/03/22 Manager Operating Relationship Specialty Start Date End Date Sara Venegas MD [address] [facility] [place] [address] PCP - General Family Medicine 10/03/22 Manager Operating Relationship Specialty Start Date End Date Sara Venegas MD [address] [facility] [place] [address] PCP - General Family Medicine 10/03/22 Manager Operating Relationship Specialty Start Date End Date Sara Venegas MD [address] [facility] [address] PCP - General Family Medicine 10/03/22 Manager Operating Relationship Specialty Start Date End Date Sara Venegas MD [address] [facility] [place] [address] PCP - General Family Medicine 10/03/22 Team Status: Inactive Member Role Status Dates Sara Venegas MD Primary Care Provider Active Start: April 26, 2024 End: April 26, 2024 Misha Dickerson DO Attending Provider Active Start : April 26, 2024 End: April 26, 2024 Team Status: Inactive Member Role Status Dates Acosta Jauregui DO Attending Provider Active Start : June 06, 2024 End: June 06, 2024 INFORMATION SOURCE (unrecogn ized section and content) DATE CREATED AUTHOR 09/02/2022 [facility] DATE CREATED AUTHOR AUTHOR'S ORGANIZ ATION 01/11/2024 [facility] DATE CREATED AUTHOR AUTHOR'S ORGANIZ ATION 01/13/2024 [facility] DATE CREATED AUTHOR AUTHOR'S ORGANIZ ATION 05/15/2024 [facility] DATE CREATED AUTHOR AUTHOR'S ORGANIZ ATION 06/10/2024 [facility] Goals (unrecognized section and content) Goals may be documented in a n alternate section FOR RECORDS PERTAINING TO PATIENTS WHO ARE [...] BE BASED ON THE PRIMARY CLINICAL RECORDS. [employer] provides no warranty or guarantee of the accuracy or completeness of information in this document.
--- NOTE | 2024-06-16 19:59 | CT_ITS ---
[address] [address] Patient Name: LITO RAMIREZ MRN: [id number] date: 1990 Sex: F Assigned Patient Location: ER Current Patient Location: ER Accession/Order Number: [id number] Exam Date: 06/16/2024 20:15 Report Date: 06/16/2024 21:08 At the request of: FABRICE MALONE Procedure: CT abdomen pelvis w con CT ABDOMEN AND PELVIS WITH CONTRAST: INDICATION: Recent lap, abn us, evaluate fluid collection. COMPARISON: 04/26/2024. TECHNIQUE: Helical CT images of the abdomen and pelvis were obtained after the administration of intravenous contrast. Dose reduction techniques were achieved by using automated exposure control and/or adjustment of mA and/or kV according to patient size and/or use of iterative reconstruction technique. FINDINGS: LOWER CHEST: The visualized lung bases are clear. LIVER: There is hepatomegaly and diffuse hepatic steatosis. GALLBLADDER AND BILIARY SYSTEM: Status post cholecystectomy. There is no intra or extrahepatic biliary ductal dilatation. SPLEEN: Unremarkable. PANCREAS: Unremarkable. ADRENAL GLANDS: Unremarkable. KIDNEYS AND URETERS: The kidneys enhance symmetrically. There is no hydronephrosis. No focal renal lesions. BLADDER: Unremarkable. GASTROINTESTINAL TRACT: No evidence of bowel obstruction or colitis. Normal appendix. VASCULATURE: Unremarkable. RETROPERITONEUM AND LYMPH NODES: No lymphadenopathy or mass. PERITONEUM/MESENTERY: No abdominal ascites. No free air. PELVIS: No pelvic ascites or lymphadenopathy. BODY WALL: Small fat-containing umbilical hernia. There is a fluid collection superior to the umbilicus measuring 4.7 x 3.8 x 8.0 cm. There is stranding surrounding the umbilicus. BONES: No acute abnormality. CT/CT abdomen pelvis w con IMPRESSION: 1. Fluid collection superior to the umbilicus measuring approximately 4.7 x 3.8 x 3.0 cm. This may represent an abscess or postsurgical seroma. Small fat-containing umbilical hernia. 2. Hepatomegaly and diffuse hepatic steatosis. Electronically authenticated by: MORENA NI Date: 06/16/2024 21:08
--- NOTE | 2024-06-16 20:00 | ED.GENADUL1 ---
HPI HPI - General Adult General Chief complaint: Abdominal Pain Stated complaint: post surgery complication Time Seen by Provider: 06/16/24 19:55 Source: patient Mode of arrival: walk-in Limitations: no limitations History of Present Illness HPI narrative: 34-year-old female presents for pain in her abdomen. About 10 days ago she had laparoscopic surgery for bilateral removal of her fallopian tubes. Since then she has noticed a mass in the mid abdomen, just above her umbilicus. She had an outpatient ultrasound performed which showed possible fluid collection or abscess. She says that her corporate director of human resources Dr. Jauregui sent her in. She has not had fever. She states she fell and hit her abdomen several days ago. No vomiting. Related Data Home Medications ?Medication ?Instructions ?Recorded ?Confirmed citalopram 20 mg tablet 20 mg PO DAILY 11/28/23 06/06/24 levothyroxine 200 mcg tablet 200 mcg PO DAILY 11/28/23 06/06/24 omeprazole 40 mg capsule,delayed 40 mg PO DAILY 11/28/23 06/06/24 release vitamin with calcium 1 tab PO DAILY 11/28/23 06/06/24 no.72-iron 27 mg-folic acid 1 mg tablet ( Vitamins Plus Low Iron) Previous Rx's ?Medication ?Instructions ?Recorded ibuprofen 800 mg tablet 800 mg PO Q8H PRN pain 14 days #40 06/06/24 tabs oxycodone-acetaminophen 5 mg-325 1 tab PO Q6H PRN pain 4 days #16 06/06/24 mg tablet (Percocet) tabs Allergies Allergy/AdvReac Type Severity Reaction Status Date / Time cefaclor (From [facility]) Allergy Severe Anaphylaxis Verified 05/23/24 11:22 Penicillins Allergy Severe Anaphylaxis Verified 05/23/24 11:22 Opioid HPI Opioid Management Most Recent Opioid Data: Last Pain Scale 6 06/16/24 20:12 06/16/24 Ur Phencyclidine Scrn Negative (NEGATIVE) 04/18/24 00:00 04/18/24 Review of Systems ROS Narrative A ten point review of systems is negative except as noted above. [facility] Medical History (Updated 06/16/24 @ 21:40 by Arturo Sahni MD) Depression ?F32.A - Depression, unspecified (ICD-10) Anxiety ?F41.9 - Anxiety disorder, unspecified (ICD-10) Seasonal allergies ?J30.2 - Other seasonal allergic rhinitis (ICD-10) Heartburn ?R12 - Heartburn (ICD-10) GERD (gastroesophageal reflux disease) ?K21.9 - Gastro-esophageal reflux disease without esophagitis (ICD-10) Hypothyroidism ?E03.9 - Hypothyroidism, unspecified (ICD-10) Delayed recovery from anesthesia Surgical History (Updated 05/23/24 @ 12:01 by Antonella Dias) History of ovarian cystectomy ?Z98.890 - Other specified postprocedural states (ICD-10) ?Z87.42 - Personal history of other diseases of the female genital tract (ICD-10) History of cholecystectomy ?Z90.49 - Acquired absence of other specified parts of digestive tract (ICD-10) History of thyroidectomy ?Z98.890 - Other specified postprocedural states (ICD-10) ?Z90.89 - Acquired absence of other organs (ICD-10) Family History (Updated 05/23/24 @ 11:32 by Antonella Dias) Other Family history of Alzheimer's disease Family history of COPD (chronic obstructive pulmonary disease) Family history of DVT Family history of coronary artery disease Family history of diabetes mellitus Family history of heart disease Family history of lung cancer Family history of myocardial infarction Family history of ovarian cancer Family history of stroke Social History (Updated 05/23/24 @ 11:27 by Antonella Dias) Within the past year, how often did you have a drink containing alcohol: monthly or less Smoking status: Current every day smoker Non-prescribed substance use: denies use 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 General: The patient appears in no apparent distress. Patient is resting comfortably on cart. Skin: Warm, dry, no pallor noted. There is no rash noted. Head: Normocephalic, atraumatic Eye: Normal conjunctiva, no drainage Ears, Nose, Mouth, and Throat: oral mucosa is moist. Nares patent. Cardiovascular: Regular Rate and Rhythm Respiratory: Patient is in no distress, no accessory muscle use, lungs are clear to auscultation, no wheezing, rales or rhonchi Back: non-tender GI: Normal bowel sounds, surgical incisions are healing well, no dehiscence or bleeding or purulent drainage or surrounding erythema. At the center incisional site above her umbilicus is a somewhat firm area. There is no fluctuance or erythema. It is approximately 2 and a half inches in diameter Musculoskeletal: The patient has no evidence of calf tenderness, no pitting edema, symmetrical pulses noted bilaterally Neurological: A&O x4, normal speech Psychiatric: Cooperative Constitutional Vital Signs, click to edit/add: Last Vital Signs Temp 97.8 F 06/16/24 17:34 Pulse 88 06/16/24 17:34 Resp 18 06/16/24 17:34 BP 125/80 06/16/24 17:34 Pulse Ox 98 06/16/24 17:34 Course Vital Signs Vital signs: Vital Signs Temperature 97.8 F 06/16/24 17:34 Pulse Rate 88 06/16/24 17:34 Respiratory Rate 18 06/16/24 17:34 Blood Pressure 125/80 06/16/24 17:34 Pulse Oximetry 98 06/16/24 17:34 Temperature 97.8 F 06/16/24 17:34 Pulse Rate 88 06/16/24 17:34 Respiratory Rate 18 06/16/24 17:34 Blood Pressure 125/80 06/16/24 17:34 Pulse Oximetry 98 06/16/24 17:34 Medical Decision Making MDM Narrative Medical decision making narrative: CAT scan was reviewed. My impression is that this is more likely a seroma. I have low suspicion for abscess. There is no bowel in this fluid collection. Case discussed with Dr. Jauregui and he will see the patient tomorrow and likely drain it. Treatment diagnosis and follow-up were discussed with the patient. Differential Diagnosis Differential Diagnosis: Seroma, hematoma, abscess Lab Data Lab results reviewed: Yes I reviewed the patient's lab results Labs: Lab Results 06/16/24 Range/Units 20:08 WBC 8.9 (4.0-11.0) 10^3/uL RBC 4.93 (4.20-5.40) 10^6/uL Hgb 13.5 (12.0-16.0) g/dL Hct 42.3 (36.0-48.0) % MCV 85.8 (81.0-99.0) fL MCH 27.4 (26.7-34.0) pg MCHC 31.9 (29.9-35.2) g/dL RDW 14.3 (11.0-15.0) % Plt Count 299 (150-450) 10^3/uL MPV 9.1 L (9.5-13.5) fL Neut % (Auto) 62.6 (43.0-75.0) % Lymph % (Auto) 30.1 (20.5-60.0) % Becker % (Auto) 4.7 (1.7-12.0) % Eos % (Auto) 1.9 (0.9-7.0) % Baso % (Auto) 0.4 (0.2-2.0) % Neut # (Auto) 5.6 (1.4-6.5) 10^3/uL Lymph # (Auto) 2.7 (1.2-3.8) 10^3/uL Becker # (Auto) 0.4 (0.3-0.8) 10^3/uL Eos # (Auto) 0.2 (0.0-0.7) 10^3/uL Baso # (Auto) 0.0 (0.0-0.1) 10^3/uL Abs Immat Gran (auto) 0.03 (0.00-0.03) 10^3/uL Imm/Tot Granulo (auto) 0.3 (0.0-0.5) % Sodium 138 (136-145) mmol/L Potassium 3.9 (3.5-5.1) mmol/L Chloride 102 (98-107) mmol/L Carbon Dioxide 30.2 (21.0-32.0) mmol/L Anion Gap 9.7 BUN 6.0 L (7.0-18.0) mg/dL Creatinine 1.00 (0.55-1.02) mg/dL Est GFR ( Amer) >60 (>=60 mL/min/1.73m^2) Est GFR (Non-Af Amer) >60 (>=60 mL/min/1.73m^2) BUN/Creatinine Ratio 6.0 Glucose 96 (74-106) mg/dL Calcium 8.9 (8.5-10.1) mg/dL Imaging Data CT scan - abdomen: Radiologist's impression: ITS Impressions Abdomen/Pelvis CT 06/16/24 19:59 IMPRESSION: 1. Fluid collection superior to the umbilicus measuring approximately 4.7 x 3.8 x 3.0 cm. This may represent an abscess or postsurgical seroma. Small fat-containing umbilical hernia. 2. Hepatomegaly and diffuse hepatic steatosis. Electronically authenticated by: MORENA NI Date: 06/16/2024 21:08 Discharge Plan Discharge Chief Complaint: Abdominal Pain Clinical Impression: Seroma Patient Disposition: Home, Self-Care Time of Disposition Decision: 21:40 Condition: Good Mode of Transportation: Private Vehicle Prescriptions / Home Meds: No Action omeprazole 40 mg capsule,delayed release(DR/EC) 40 mg PO DAILY citalopram 20 mg tablet 20 mg PO DAILY levothyroxine 200 mcg tablet 200 mcg PO DAILY Vitamin Plus Low Iron 27 mg iron- 1 mg tablet 1 tab PO DAILY ibuprofen 800 mg tablet 800 mg PO Q8H PRN (Reason: pain) 14 Days Qty: 40 0RF oxycodone-acetaminophen [Percocet] 5-325 mg tablet 1 tab PO Q6H PRN (Reason: pain) 4 Days Qty: 16 0RF Print Language: Swedish Additional Instructions: Call Dr. Jauregui in the morning. He will see you tomorrow. Referrals: Enmanuel Medellin MD [Primary Care Provider] - 1 week
[2024-06-16 20:27] LABS: Basophils Percent Auto 0.4 % (0.2-2.0); Eosinophils Absolute Auto 0.2 10^3/uL (0.0-0.7); Eosinophils Percent Auto 1.9 % (0.9-7.0); Hematocrit 42.3 % (36.0-48.0); Hemoglobin 13.5 g/dL (12.0-16.0); Immature Granulocytes Abs Auto 0.03 10^3/uL (0.00-0.03); Immature Granulocytes Pct Auto 0.3 % (0.0-0.5); Lymphocytes Absolute Auto 2.7 10^3/uL (1.2-3.8); Lymphocytes Percent Auto 30.1 % (20.5-60.0); Mean Corpuscular HGB Conc 31.9 g/dL (29.9-35.2); Mean Corpuscular Hemoglobin 27.4 pg (26.7-34.0); Mean Corpuscular Volume 85.8 fL (81.0-99.0); Mean Platelet Volume 9.1 fL (9.5-13.5); Monocytes Absolute Auto 0.4 10^3/uL (0.3-0.8); Monocytes Percent Auto 4.7 % (1.7-12.0); Neutrophils Absolute Auto 5.6 10^3/uL (1.4-6.5); Neutrophils Percent Auto 62.6 % (43.0-75.0); Platelet Count 299 10^3/uL (150-450); Red Blood Count 4.93 10^6/uL (4.20-5.40); Red Cell Distribution Width 14.3 % (11.0-15.0); White Blood Count 8.9 10^3/uL (4.0-11.0)
[2024-06-16 20:35] LABS: Anion Gap 9.7; Calcium 8.9 mg/dL (8.5-10.1); Carbon Dioxide 30.2 mmol/L (21.0-32.0); Chloride 102 mmol/L (98-107); Estimated GFR (African America >60 (>=60 mL/min/1.73m^2); Estimated GFR (Non-African Ame >60 (>=60 mL/min/1.73m^2); Glucose 96 mg/dL (74-106); Potassium 3.9 mmol/L (3.5-5.1); Sodium 138 mmol/L (136-145)
[2024-06-16 21:48] VITALS: BP 111/85; PULSE 88; O2SAT 99
== END 2024-06-16 21:49 | disposition home or self-care (01) ==
PROVIDERS: Emergency Provider Emergency Medicine; PCP Family Medicine
DX: L76.34 Postprocedural seroma of skin and subcutaneous tissue following other procedure (principal); Z90.79 Acquired absence of other genital organ(s); Z98.890 Other specified postprocedural states; Z90.49 Acquired absence of other specified parts of digestive tract; F17.200 Nicotine dependence, unspecified, uncomplicated
CPT/HCPCS: 36415; 74177; 80048; 85025; 99285; Q9967